=== PATIENT | male | born 1960 | race Caucasian/White ===

== ENCOUNTER 2023-08-16 04:56 | Inpatient (IN) | payer OTHER, MEDICAID, SELFPAY ==
[2023-08-16 05:00] VITALS: BP 155/90; PULSE 91; RESP 16; TEMP 36.4; O2SAT 100; BMI 25.8
--- NOTE | 2023-08-16 05:06 | EKG12_ITS ---
Test Reason : DYSRHYTHMIA Blood Pressure : / mmHG Vent. Rate : 084 BPM Atrial Rate : 084 BPM P-R Int : 186 ms QRS Dur : 102 ms QT Int : 398 ms P-R-T Axes : 058 001 038 degrees QTc Int : 470 ms Normal sinus rhythm Septal infarct , age undetermined Abnormal ECG Confirmed by SONIA MONTERO, KAMRAN ([id number]), editor magazine [employer] ([id number]) on 08/18/2023 10:51:47 AM Referred By: Patrice Watkins Confirmed By:KAMRAN SCOTT MD
--- NOTE | 2023-08-16 05:07 | EDS_ITS ---
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 He did not hit his head or injure anything else including his back, since he was unable to stand due to the pain and suspected fracture, he was brought here by EMS, he has not received any pain medication yet. PFSH PFSH Medical History no medical history no medical history Home Medications NK 08/16/23 [History Last Taken Unknown] Allergy/AdvReac Type Severity Reaction Status Date / Time No Known Allergies Allergy Verified 08/16/23 05:09 Surgical History (Updated 08/16/23 @ 06:[address] Tamir Allan MD) Hx of neck surgery Social History Smoking Status: Current every day smoker tobacco type: cigarettes ROS ROS ED Constitutional Constitutional ED: Denies chills or fever(s) Eyes Eyes: Denies change in vision or diplopia ENT ENT ED: Denies ear pain, epistaxis, facial pain or rhinorrhea Cardiovascular Cardiovascular: Denies chest pain or palpitations Respiratory/Chest Respiratory/Chest: Denies cough or dyspnea Gastrointestinal Gastrointestinal: Denies abdominal pain, diarrhea, melena, nausea or vomiting Genitourinary Genitourinary ED: Denies dysuria or hematuria Musculoskeletal Musculoskeletal: Reports extremity pain; Denies back pain or neck pain Integumentary Denies abscess, Abrasions, laceration or rash Neurologic Neurologic: Denies confusion, headache(s), paresthesias or weakness EXAM Physical Exam Const Vital Signs: 08/16/23 05:00 08/16/23 05:08 08/16/23 05:58 Temperature 97.6 F L 97.6 F L Temperature Source Temporal Temporal Pulse Rate 91 94 81 Respiratory Rate 16 16 18 Blood Pressure 155/90 H 155/90 H 128/81 H Blood Pressure Mean 111 111 96 Pulse Ox 100 100 100 Oxygen Delivery Method Room Air Room Air Positive well nourished and well developed General Appearance ED: well developed and NAD HEENT Reports nasal mucous membranes and turbinates normal atraumatic Face and Sinus: Negative for facial tenderness Eyes PERRL and EOMs intact bilaterally Visual Acuity: other Other Details: no entrapment or pain with extraocular movements Neck full ROM and supple General: Negative for tenderness Chest Wall inspection of chest normal and palpation of chest normal Chest: symmetrical chest wall rise; Negative for crepitus or tenderness Resp normal respiratory effort and clear to auscultation bilaterally Percussion: other equal BS bilat Cardio no murmurs Rate: regular rate Rhythm: regular rhythm GI normal to inspection, nondistended, normoactive bowel sounds, soft to palpation and non-tender Back/Spine normal ROM Cervical Spine: Negative for cervical spine tenderness Thoracic Spine / Upper Back: Negative for thoracic spinal tenderness Lumbar Spine / Lower Back: Negative for lumbar spinal tenderness Extremity normal to inspection Extremity Narrative: Left hip tenderness, shortening, painful logroll. ASIS nontender, pelvis stable to AP compression. Limited range of motion of the knee due to pain in the hip but no bony tenderness or signs of trauma at the near the ankle or elsewhere in the right lower extremity. All compartments soft and nondistended. All 3 other extremities full range of motion without any pain or difficulty. General Extremety ED: Yes tenderness Neuro oriented x3, CN's II-XII intact bilaterally, moves all extremities, no focal motor deficits and no sensory deficits noted Premont Coma Scale: document GCS findings Spontaneous Obeys Commands Oriented 15 Sensorium / Orientation: awake and alert Psych mental status grossly normal and thought process normal Skin no wounds Lesions: no lesions Rashes: no rashes MDM MDM MDM Narrative Medical decision making narrative: Three-view x-ray series of the right hip and pelvis on my interpretation shows a mildly displaced subcapital hip fracture. No other pelvic bone fractures noted. Patient is neurovascular intact distally, clinically better and stable after morphine and prophylactic Zofran, preoperative EKG and chest x-ray obtained and on my interpretation both normal, 1 view chest. Labs unremarkable. Discussed w ith Dr. Marshall who was on-call for [facility], with whom the patient is established, likely to take him to the OR tomorrow morning and requesting hospitalist admission. Lab Data Attestation: I reviewed the patient's lab results. Labs: Laboratory Results - last 24 hr 08/16/23 05:14 WBC 4.4 RBC 3.08 L Hgb 10.1 L Hct 27.5 L MCV 89.3 MCH 32.8 H MCHC 36.7 H RDW Std Deviation 42.5 RDW Coeff of Adiel 13.1 Plt Count 171 MPV 8.8 Immature Gran % (Auto) 0.500 Neut % (Auto) 54.0 Lymph % (Auto) 27.6 [place] % (Auto) 13.6 H Eos % (Auto) 3.4 Baso % (Auto) 0.9 Absolute Neuts (auto) 2.4 Absolute Lymphs (auto) 1.20 Nucleated RBC % 0 Sodium 126 L Potassium 3.4 L Chloride 92 L Carbon Dioxide 25.0 Anion Gap 9 BUN 10 Creatinine 1.13 Estim Creat Clear Calc 69.99 Est GFR (MDRD) Af Amer 85 Est GFR (MDRD) Non-Af 70 BUN/Creatinine Ratio 8.8 L Glucose 143 H Calcium 8.7 Rhythm Strip Rhythm Strip: Sinus Rhythm Rate: 85 Ectopy: None EKG Initial EKG: Attestation: I personally reviewed and interpreted this EKG as follows: Interpretation: Sinus Rhythm and No Acute Injury Pattern Management Discussion w/another healthcare provider: Hospitalist and Control Officer ([facility]) Discharge Plan Dx/Rx/DC Orders Clinical Impression: Fall from slipping on wet surface, Closed fracture of right hip Disposition Disposition: Acute Care Hospital [facility]
[2023-08-16 05:08] VITALS: BP 155/90; PULSE 94; RESP 16; TEMP 36.4; O2SAT 100
[2023-08-16] MEDS: Morphine 4 MG/ML Syringe IV (05:19)
[2023-08-16] MEDS: Ondansetron 4 MG/2 ML Vial IV (05:19)
[2023-08-16 05:24] LABS: Absolute Neutrophil Count 2.4 X10^3/uL (2.0-7.7); Basophil# 0.04 X10^3/uL; Basophil% 0.9 % (0-1); Eosinophil# 0.15 X10^3/uL; Eosinophils% 3.4 % (0-5); Hematocrit 27.5 % (40-54); Hemoglobin 10.1 g/dL (13.0-16.5); Lymphocyte % 27.6 % (19-41); Mean Corp Hgb Conc 36.7 g/dL (32-36); Mean Corpuscular Hgb 32.8 pg (27.0-32.0); Mean Corpuscular Volume 89.3 fL (80-94); Mean Platelet Vol. 8.8 fl (6.2-12.0); Monocyte# 0.59 X10^3/uL; Monocyte% 13.6 % (0-10); NRBC Flagged by Analyzer 0 % (0-5); Neutrophil # 2.35 X10^3/uL (2.7-7.7); Platelet Count 171 K/mm3 (150-450); RBC Distribution Width CV 13.1 % (11.6-14.6); RBC Distribution Width SD 42.5 fl (35.1-43.9); Red Blood Count 3.08 M/mm3 (4.6-6.2); White Blood Count 4.4 K/mm3 (4.4-11.0)
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
--- NOTE | 2023-08-16 05:45 | RAD_ITS ---
EXAM: XR RIGHT HIP WITH PELVIS WHEN PERFORMED, 2 OR 3 VIEWS CLINICAL INDICATION: injury TECHNIQUE: Two or three views of the right hip with pelvis when performed. COMPARISON: No relevant prior studies available. FINDINGS: BONES/JOINTS: 2 views show an acute right femoral neck fracture, with slight cephalad migration of the femoral shaft in relation to the femoral neck. Right femoral head remains normally aligned within the right acetabulum, which is intact. The pubic rami are intact. Proximal left femur is intact. Lower lumbar degenerative disc disease and facet arthritis are noted. The SI joints are partially fused. Multiple punctate opacities are projected over the lower abdomen and pelvis. SOFT TISSUES: Soft tissue swelling about the proximal right femur. RAD/HIP, UNI W/ Pelvis 2-3 Views IMPRESSION: Mildly impacted right femoral neck fracture. Electronically Signed: Darnell Olsen MD at 6:40 EST ,
[2023-08-16 05:48] LABS: Anion Gap 9 (5-15); BUN 10 mg/dL (7-18); BUN/Creat Ratio 8.8 RATIO (10-20); Calcium,Total 8.7 mg/dL (8.5-10.1); Chloride 92 mmol/L (98-107); Creatinine, Serum 1.13 mg/dL (0.70-1.30); EST Glomerular Filtration Rate 70 mL/min (>60); Est Glom Filt Rate - Afr Amer 85 mL/min (>60); Estimated Creatinine Clearance 69.99 ml/min; Glucose 143 mg/dL (74-106); Potassium 3.4 mmol/L (3.5-5.1); Sodium Level 126 mmol/L (136-145)
[2023-08-16 05:58] VITALS: BP 128/81; PULSE 81; RESP 18; O2SAT 100
--- NOTE | 2023-08-16 06:31 | HP.PCM.HOS_ITS ---
HPI - General General Date of Admission: 08/16/23 Date of Service: 08/16/23 Chief Complaint: Right hip pain HPI Narrative QUINCY ESCALONA, is a 63 M who presents with right hip pain. 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 He is unsure about how he actually landed but it was suddenly and he felt something go at that time. Try to get up but he was unable to due to severe pain in his right hip. He was able to get up to standing to feel the rest himself on something but was not able to be able to put any weight on his right leg. EMS was called and patient was brought to the hospital. Patient was found to have a right hip fracture. Dr. Marshall, orthopedics, was contacted and told emergency room physician that the plan would be to take the patient to surgery on the third. With this fall, patient denies hitting his head or any loss of consciousness. He is otherwise a very healthy does not get chest pain or shortness of breath with activities. [facility] Medical History no medical history no medical history Home Medications NK 08/16/23 [History Last Taken Unknown] Allergy/AdvReac Type Severity Reaction Status Date / Time No Known Allergies Allergy Verified 08/16/23 05:09 Surgical History (Updated 08/16/23 @ 06:[address] Tamir Allan MD) Hx of neck surgery Social History (Updated 08/16/23 @ 06:[address] Patrice Watkins, DO) Smoking Status: Current some day smoker alcohol intake: current alcohol intake frequency: a few times a week substance use type: does not use ROS ROS Narrative All review of systems were negative except as mentioned above in the history of present illness and the other review of systems. Vital Signs Vital Signs Vital Signs: 08/16/23 05:00 08/16/23 05:08 08/16/23 05:58 Temperature 36.4 C L 36.4 C L Temperature Source Temporal Temporal Pulse Rate 91 94 81 Respiratory Rate 16 16 18 Blood Pressure 155/90 H 155/90 H 128/81 H Blood Pressure Mean 111 111 96 Pulse Ox 100 100 100 Oxygen Delivery Method Room Air Room Air Weight Weight: 81.6 kg Body Mass Index (BMI) 25.8 Physical Exam Const alert and no apparent distress HEENT normocephalic and head/scalp atraumatic Neck no lymphadenopathy Resp normal respiratory effort, no retractions, no use of accessory muscles and clear to auscultation bilaterally Cardio regular rate, regular rhythm and S1 normal heart sound GI normal to inspection, nondistended, normoactive bowel sounds, soft to palpation, non-tender and non-distended Extremity Extremity Narrative: Short right lower extremity compared to the left. Neuro Sensorium / Orientation: awake and alert Speech: speech normal Psych affect normal Results Lab / Micro Data Attestation: I reviewed the patient's lab results. 08/16/23 05:14 08/16/23 05:14 Labs: Laboratory Results - last 24 hr 08/16/23 05:14: WBC 4.4, RBC 3.08 L, Hgb 10.1 L, Hct 27.5 L, MCV 89.3, MCH 32.8 H, MCHC 36.7 H, RDW Std Deviation 42.5, RDW Coeff of Adiel 13.1, Plt Count 171, MPV 8.8, Immature Gran % (Auto) 0.500, Neut % (Auto) 54.0, Lymph % (Auto) 27.6, [place] % (Auto) 13.6 H, Eos % (Auto) 3.4, Baso % (Auto) 0.9, Absolute Neuts (auto) 2.4, Absolute Lymphs (auto) 1.20, Nucleated RBC % 0, Sodium 126 L, Potassium 3.4 L, Chloride 92 L, Carbon Dioxide 25.0, Anion Gap 9, BUN 10, Creatinine 1.13, Estim Creat Clear Calc 69.99, Est GFR (MDRD) Af Amer 85, Est GFR (MDRD) Non-Af 70, BUN/Creatinine Ratio 8.8 L, Glucose 143 H, Calcium 8.7 Rhythm Strip Rhythm Strip: Sinus Rhythm Rate: 85 Ectopy: None Imagaing Hip x-ray reviewed and shows an impacted right hip fracture. Official read pending. Chest x-ray personally reviewed and shows no infiltrate nor pulmonary vascular congestion. Is unremarkable. Official read pending. Assessment & Plan Assessment/Plan (1) Closed fracture of right hip: QUALIFIERS: Encounter type: initial encounter Qualified Code(s): S72.001A - Fracture of unspecified part of neck of right femur, initial encounter for closed fracture PLAN: Due to fall while patient was at work and stumbled backwards. Patient be on bedrest. Check a 25-hydroxy vitamin D level. Orthopedics will be on consult with tentative plans for the patient to undergo surgery on the third. Patient is medically cleared and optimized to proceed with surgery (NSQIP calculator that patient is overall lower average surgical risk for all outcomes). No additional workup necessary at this time. (2) Hypokalemia: PLAN: Replace. Monitor PLAN: Plan VTE prophylaxis with SCDs for now. Patient required chemical prophylaxis postsurgery.
[2023-08-16 06:56] VITALS: BP 147/94; PULSE 81; RESP 18; TEMP 36.6; O2SAT 100
[2023-08-16 06:58] VITALS: BMI 25.2
[2023-08-16 08:00] VITALS: BP 128/82; PULSE 77; RESP 16; TEMP 36.4; O2SAT 100
[2023-08-16] MEDS: Potassium Chloride Oral Tablet 20 MEQ 40 MEQ PO (08:07)
[2023-08-16] MEDS: Senna/Docusate Sodium 1 Tablet 2 TABLET PO (08:07)
[2023-08-16] MEDS: oxyCODONE 5 MG Tablet 10 MG PO ×4 (08:07→22:14)
[2023-08-16] MEDS: 0.9% Normal Saline (1000mL) 1,000 ML 100 ML IV ×2 (08:07→17:00)
--- NOTE | 2023-08-16 12:37 | PN_ITS ---
Subjective Subjective Patient seen and examined. He was admitted with a complaint of right hip pain after mechanical fall. He is being managed for right hip fracture due to mechanical fall. He says pain is well controlled. Review of systems is otherwise negative. Objective Data Objective Data Vital Signs: Vital Signs Temp Pulse Resp BP Pulse Ox O2 Del Method 97.5 F L 77 16 128/82 H 100 Room Air 08/16/23 08:00 08/16/23 08:00 08/16/23 08:00 08/16/23 08:00 08/16/23 08:00 08/16/23 08:00 Oxygen Delivery Method Room Air Weight: 175 lb 14.4 oz Body Mass Index (BMI) 25.2 Lab / Micro Data 08/16/23 05:14 08/16/23 05:14 Labs: Laboratory Results - last 24 hr 08/16/23 05:14: WBC 4.4, RBC 3.08 L, Hgb 10.1 L, Hct 27.5 L, MCV 89.3, MCH 32.8 H, MCHC 36.7 H, RDW Std Deviation 42.5, RDW Coeff of Adiel 13.1, Plt Count 171, MPV 8.8, Immature Gran % (Auto) 0.500, Neut % (Auto) 54.0, Lymph % (Auto) 27.6, [place] % (Auto) 13.6 H, Eos % (Auto) 3.4, Baso % (Auto) 0.9, Absolute Neuts (auto) 2.4, Absolute Lymphs (auto) 1.20, Nucleated RBC % 0, Sodium 126 L, Potassium 3.4 L, Chloride 92 L, Carbon Dioxide 25.0, Anion Gap 9, BUN 10, Creatinine 1.13, Estim Creat Clear Calc 69.99, Est GFR (MDRD) Af Amer 85, Est GFR (MDRD) Non-Af 70, BUN/Creatinine Ratio 8.8 L, Glucose 143 H, Calcium 8.7 Radiography Diagnostic Testing: Radiology Impression Chest X-Ray 08/16/23 05:45 IMPRESSION: No radiographic evidence of acute cardiopulmonary disease. Electronically Signed: Darnell Olsen MD at 6:38 EST , Hip/Pelvis X-Ray 08/16/23 05:45 IMPRESSION: Mildly impacted right femoral neck fracture. Electronically Signed: Darnell Olsen MD at 6:40 EST , Rhythm Strip Rhythm Strip: Sinus Rhythm Rate: 85 Ectopy: None Physical Exam Const alert, oriented x3, no apparent distress and well nourished HEENT normocephalic, head/scalp atraumatic and moist oral mucous membranes Neck no lymphadenopathy and supple Lymph Lymphatic: no lymphadenopathy noted and no lymphedema noted Resp normal respiratory effort, normal air movement and clear to auscultation bilaterally Cardio regular rate, regular rhythm, S1 normal heart sound, S2 normal heart sound and no murmurs GI normal to inspection, nondistended, normoactive bowel sounds, soft to palpation and non-tender Extremity normal capillary refill and no clubbing, cyanosis or edema Extremity Narrative: RLE shortened, externally rotated Skin General Skin Exam: no breakdown Neuro CN's II-XII intact bilaterally and no sensory deficits noted Motor Exam: general weakness Psych thought process normal and cooperative Appearance: appropriate Assessment & Plan Assessment/Plan (1) Closed fracture of right hip: QUALIFIERS: Encounter type: initial encounter Qualified Code(s): S72.001A - Fracture of unspecified part of neck of right femur, initial encounter for closed fracture PLAN: Plan #RIght subcapital fracture due to mechanical fall * due to mechanical fall * right hip xray showed a right mildly displaced subcapital fracture * Orthopedics on board * PT/OT on board * PO tylenol, PO oxycodone and IV morphine prn for pain * fall precautions * for surgery tomorrow by orthopedics * #Nicotine dependence: counseled to quit. Nicotine patch 21mg daily. DVT prophylaxis; start lovenox Charges/Coding Visit Charges Inpatient E&M: 53675 Subs Hosp L2
[2023-08-16 13:22] LABS: ALB/GLOB Ratio 1.1 RATIO (0.9-2.4); AST(SGOT) 24 U/L (15-37); Alanine Aminotransfer ALT/SGPT 22 U/L (16-61); Albumin, Serum 3.3 g/dL (3.2-5.0); Alkaline Phosphatase 84 U/L (45-117); Anion Gap 8 (5-15); BUN 10 mg/dL (7-18); BUN/Creat Ratio 10.5 RATIO (10-20); Calcium,Total 8.2 mg/dL (8.5-10.1); Chloride 99 mmol/L (98-107); Creatinine, Serum 0.95 mg/dL (0.70-1.30); EST Glomerular Filtration Rate 86 mL/min (>60); Est Glom Filt Rate - Afr Amer 104 mL/min (>60); Estimated Creatinine Clearance 83.25 ml/min; Glucose 113 mg/dL (74-106); Potassium 3.8 mmol/L (3.5-5.1); Protein, Total 6.3 g/dL (6.4-8.2); Sodium Level 130 mmol/L (136-145)
[2023-08-16 14:30] VITALS: BP 108/62; PULSE 70; RESP 16; TEMP 36.8; O2SAT 100
[2023-08-16] MEDS: Acetaminophen 500 MG Tablet 1000 MG PO ×2 (14:30→22:15)
--- NOTE | 2023-08-16 18:10 | CASEMGMT ---
LESA SUMMERS DETECTIVE [employer] SE[employer] CM to room to meet with patient for initial transition planning/care coordination assessment. LESA SUMMERS introduced self and role at [facility].? Pt voices understanding and consents to assessment at this time.? Pt resting in bed in no distress at this time.? Pt is A/O at this time and answers all questions appropriately.?? Care providers, pharmacy, and demographics verified/updated at this time. PCP: Bryan Jackson NP Specialists: none Preferred Pharmacy: [facility] @ discharge Insurance: [employer]. (Pt also has [facility] [place] through [employer]) Prescription Benefit:? yes Living Will/HPOA:?Pt does not currently have LW/HCPOA and would like to complete. VM left on SW Lilly's phone. Pt made aware if SW unable to meet w/him while @ [facility], that AD can be completed w/SW as an OP. LNOK: Pt's firiend, Abril, is only contact listed. Pt states he has one adult son, Clive Caldwell, age 33, who lives in [place], [place]. He states he has not had any contact w/him for about 4-5 years and does not have his phone #. He states that his friend, Abril, would know how to find him, if needed. Pt is single and parents are . He has one living sister that he has not spoke to for years. Living Arrangements: Lives w/a roommate in 2-story home w/3 steps to enter and rails on both sides. His roommate stays upstairs and pt stays on the main floor. Pt states he is independent and was working full-time. Transportation: Pt states drives. He states he will be able to find someone to take him home @ discharge. DME: ? Denies using any DME. He has crutches @ his home and states he can borrow a walker from a friend. He states he made a make-shift/homemade seat in the shower for his roommate that he could use if needed. HHC/SNF: No hx of either. Discussed discharge planning and questions answered. Discussed options of OP therapy vs HHC vs SNF, depending on his needs/ability after surgery. He was made aware therapy would work w/him and recommendations will be made and that either CM or SW will f/u with him on Friday to discuss further discharge planning. He voices appreciation of the info. PLAN: ?TBD. Pt scheduled for surgery tomorrow. Candi CARVALHON RN CM
[2023-08-17] VITALS (11 sets, daily range): BP systolic 115–161; BP diastolic 68–93; PULSE 72–109; RESP 16–18; TEMP 36.3–37.1; O2SAT 92–100; BMI 25.2
[2023-08-17] MEDS: Acetaminophen 500 MG Tablet 1000 MG PO ×3 (05:20→22:18)
[2023-08-17] MEDS: oxyCODONE 5 MG Tablet 10 MG PO ×2 (05:20→22:18)
[2023-08-17 06:40] LABS: Absolute Lymphocyte Count 0.36 X10^3/uL (0.83-4.51); Absolute Neutrophil Count 2.8 X10^3/uL (2.0-7.7); Basophil# 0.01 X10^3/uL; Basophil% 0.3 % (0-1); Eosinophil# 0.04 X10^3/uL; Eosinophils% 1.1 % (0-5); Hematocrit 29.8 % (40-54); Lymphocyte # 0.36 X10^3/ul (0.83-4.51); Lymphocyte % 10.3 % (19-41); Mean Corp Hgb Conc 33.6 g/dL (32-36); Mean Corpuscular Hgb 31.7 pg (27.0-32.0); Mean Corpuscular Volume 94.6 fL (80-94); Mean Platelet Vol. 9.2 fl (6.2-12.0); Monocyte# 0.27 X10^3/uL; Monocyte% 7.7 % (0-10); NRBC Flagged by Analyzer 0 % (0-5); Neutrophil # 2.82 X10^3/uL (2.7-7.7); Neutrophil % 80.3 % (47-70); POSITIVE DIFFERENTIAL YES; Platelet Count 141 K/mm3 (150-450); RBC Distribution Width CV 13.8 % (11.6-14.6); RBC Distribution Width SD 47.3 fl (35.1-43.9); Red Blood Count 3.15 M/mm3 (4.6-6.2); White Blood Count 3.5 K/mm3 (4.4-11.0)
[2023-08-17 06:43] LABS: Differential Indicated SCAN CRITERIA MET
[2023-08-17 07:42] LABS: Anion Gap 5 (5-15); BUN 9 mg/dL (7-18); BUN/Creat Ratio 8.9 RATIO (10-20); Calcium,Total 8.3 mg/dL (8.5-10.1); Chloride 106 mmol/L (98-107); Creatinine, Serum 1.01 mg/dL (0.70-1.30); EST Glomerular Filtration Rate 80 mL/min (>60); Est Glom Filt Rate - Afr Amer 96 mL/min (>60); Glucose 117 mg/dL (74-106); Potassium 4.2 mmol/L (3.5-5.1); Sodium Level 133 mmol/L (136-145)
--- NOTE | 2023-08-17 08:03 | CPS ---
Pt declined IS/PEP, says he doesn't like to read directions and this was all of the sudden This was not the 1st attempt with this patient.
--- NOTE | 2023-08-17 09:53 | PCM.CONS.GEN ---
Assessment & Plan Assessment/Plan (1) Closed fracture of right hip: QUALIFIERS: Encounter type: initial encounter Qualified Code(s): S72.001A - Fracture of unspecified part of neck of right femur, initial encounter for closed fracture PLAN: Plan of care was discussed and reviewed at length with the patient including surgical and nonsurgical treatment options at this time he does wish to proceed with a right total hip arthroplasty secondary to patient's injury and age we feel that total hip replacement is more appropriate plan of care than hemiarthroplasty. Potential risk benefits and complications of this procedure were reviewed in detail including but not limited to infection nerve and blood vessel damage persistent pain numbness tingling paresthesias blood clot pulmonary embolism and the requirement for possible further surgery patient expressed full understanding has no further questions for the doctor does agree to proceed with the above-stated procedure and has signed the appropriate consent form Patient denies a history of DVT or pulmonary embolism. Will plan for aspirin 81 mg twice daily for blood clot prevention x 1 month postoperative I also discussed and reviewed at length with the patient and his other underlying laboratory abnormalities including leukopenia anemia thrombocytopenia hyponatremia hypokalemia and elevated blood glucose. I advised the patient that he will continue to be monitored by hospitalist group while admitted to the hospital but we would recommend a follow-up appointment with Dr. Bryan Gotti patient's primary care provider upon discharge from the hospital for further workup and or treatment. (2) Contusion of right shoulder: PLAN: Discussed and reviewed right shoulder pain/injury with the patient. I explained it sounds like a possible acute on chronic injury which may or may not be work related. He most certainly had aggravation of pre-existing symptoms with the fall. We will plan to obtain x-rays of the right shoulder today to evaluate for fracture. I explained that based on his current clinical exam I do have a low suspicion for fracture. Pending imaging findings we will plan for treatment accordingly. HPI Consult Data Date of Consult: 08/17/23 HPI Narrative Reason for Consultation: Right hip fracture work-related injury HPI Narrative: QUINCY ESCALONA, is a 63 M who presented to [facility] yesterday August 16, 2023. He was involved in a work-related injury. 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 He was standing on the ground. He slipped twisted and landed on his right side. He had significant increased pain in his right hip was unable to stand or bear weight. He was taken to [facility] emergency department by kimi. He states that he did not have any significant hip or groin pain prior to the injury. He did have buttock and low back pain. He also admits to some pre-existing right shoulder pain prior to this injury he was previously under the care of Dr. Ernesto Waller with our office and had cervical neck surgery in April 2023. Dr. Ernesto Waller told him that his shoulder pain was associated with his neck. Since his fall he has had increased right shoulder pain. X-rays in the emergency department of the hip did reveal a femoral neck fracture on the right side. Orthopedics was consulted. Patient ambulated independently without an assistive device prior to the injury. He denies head injury or loss of consciousness. No numbness or tingling into the feet at this time. He does complain of numbness and tingling into bilateral upper extremities that is not new. [facility] Medical History no medical history Home Medications NK 08/16/23 [History Last Taken Unknown] Allergy/AdvReac Type Severity Reaction Status Date / Time No Known Allergies Allergy Verified 08/16/23 05:09 Surgical History (Updated 08/16/23 @ 06:[address] Tamir Allan MD) Hx of neck surgery Social History (Updated 08/16/23 @ 06:[address] Patrice Watkins DO) Smoking Status: Current some day smoker tobacco type: cigarettes alcohol intake: current alcohol intake frequency: a few times a week substance use type: does not use ROS ROS Narrative Review of systems were personally discussed at length with the patient pertinent positives and negatives are documented with in the consultation below. Physical Exam Narrative Patient is alert and oriented x 3. Resting comfortably in the hospital bed in the supine position at rest. No acute distress at rest. The right lower extremity is shortened and externally rotated. Left hip is without pain or tenderness. Gentle rotation of right hip is with severe increased pain recreating patient's chief complaint. No tenderness at bilateral knees or ankles. No calf pain or swelling. Patient is able to actively plantar and dorsiflex bilateral ankles against resistance sensation intact light touch pedal pulses present +2 bilaterally neurovascularly intact. Inspection of right shoulder is without deformity. Right shoulder is with minimal tenderness to palpation at the level of the subacromial space. Patient has reasonable strength testing for active mobility against gravity with increased pain. Right elbow wrist and hand without deformity or tenderness. Full mobility of the elbow wrist and fingers on the right. Radial pulses present +2 bilaterally Lab / Micro Data 08/17/23 05:33 08/17/23 05:33 Labs: Laboratory Results - last 24 hr 08/16/23 05:14: Sodium 130 L, Potassium 3.8, Chloride 99, Carbon Dioxide 23.0, Anion Gap 8, BUN 10, Creatinine 0.95, Estim Creat Clear Calc 83.25, Est GFR (MDRD) Af Amer 104, Est GFR (MDRD) Non-Af 86, BUN/Creatinine Ratio 10.5, Glucose 113 H, Calcium 8.2 L, Total Bilirubin 0.50, AST 24, ALT 22, Alkaline Phosphatase 84, Total Protein 6.3 L, Albumin 3.3, Globulin 3.0, Albumin/Globulin Ratio 1.1 08/17/23 05:14: Blood Type A POSITIVE, Antibody Screen NEGATIVE 08/17/23 05:33: WBC 3.5 L, RBC 3.15 L, Hgb 10.0 L, Hct 29.8 L, MCV 94.6 H D, MCH 31.7, MCHC 33.6 D, RDW Std Deviation 47.3 H, RDW Coeff of Adiel 13.8, Plt Count 141 L, MPV 9.2, Immature Gran % (Auto) 0.300, Neut % (Auto) 80.3 H, Lymph % (Auto) 10.3 L, Cass % (Auto) 7.7, Eos % (Auto) 1.1, Baso % (Auto) 0.3, Absolute Neuts (auto) 2.8, Absolute Lymphs (auto) 0.36 L, Nucleated RBC % 0, Sodium 133 L, Potassium 4.2, Chloride 106, Carbon Dioxide 22.0, Anion Gap 5, BUN 9, Creatinine 1.01, Estim Creat Clear Calc 78.30, Est GFR (MDRD) Af Amer 96, Est GFR (MDRD) Non-Af 80, BUN/Creatinine Ratio 8.9 L, Glucose 117 H, Calcium 8.3 L Rhythm Strip Rhythm Strip: Sinus Rhythm Rate: 85 Ectopy: None Imagaing X-rays of right hip and pelvis were reviewed August 16, 2023 discussed and reviewed with the patient as well as Dr. Obie Marshall consistent with degenerative changes of the lower lumbar spine with acute impacted femoral neck fracture of right hip
[2023-08-17] MEDS: Morphine 2 MG/ML Syringe IV (09:55)
[2023-08-17] MEDS: 0.9% Saline Lock 10 ML Syringe IV ×2 (09:56→18:15)
--- NOTE | 2023-08-17 10:39 | PN_ITS ---
Subjective Subjective Patient seen and examined. He had no active complaints. Review systems otherwise negative. He is due for surgery for hip fracture today. Objective Data Objective Data Vital Signs: Vital Signs Temp Pulse Resp BP Pulse Ox O2 Del Method 97.3 F L 97 16 161/90 H 97 Room Air 08/17/23 09:50 08/17/23 09:50 08/17/23 09:50 08/17/23 09:50 08/17/23 09:50 08/17/23 09:50 Oxygen Delivery Method Room Air Weight: 175 lb 14.4 oz Body Mass Index (BMI) 25.2 Intake & Output: Intake and Output for Last 24 Hours 08/15/23 08/16/23 08/17/23 23:59 23:59 23:59 Intake Total 888.33 / 888.33 1000 / 1000 Output Total 950 / 1175 975 / 975 Balance -61.67 / -286.67 Lab / Micro Data 08/17/23 05:33 08/17/23 05:33 Labs: Laboratory Results - last 24 hr 08/16/23 05:14: Sodium 130 L, Potassium 3.8, Chloride 99, Carbon Dioxide 23.0, Anion Gap 8, BUN 10, Creatinine 0.95, Estim Creat Clear Calc 83.25, Est GFR (MDRD) Af Amer 104, Est GFR (MDRD) Non-Af 86, BUN/Creatinine Ratio 10.5, Glucose 113 H, Calcium 8.2 L, Total Bilirubin 0.50, AST 24, ALT 22, Alkaline Phosphatase 84, Total Protein 6.3 L, Albumin 3.3, Globulin 3.0, Albumin/Globulin Ratio 1.1 08/17/23 05:14: Blood Type A POSITIVE, Antibody Screen NEGATIVE 08/17/23 05:33: WBC 3.5 L, RBC 3.15 L, Hgb 10.0 L, Hct 29.8 L, MCV 94.6 H D, MCH 31.7, MCHC 33.6 D, RDW Std Deviation 47.3 H, RDW Coeff of Adiel 13.8, Plt Count 141 L, MPV 9.2, Immature Gran % (Auto) 0.300, Neut % (Auto) 80.3 H, Lymph % (Auto) 10.3 L, Garrard % (Auto) 7.7, Eos % (Auto) 1.1, Baso % (Auto) 0.3, Absolute Neuts (auto) 2.8, Absolute Lymphs (auto) 0.36 L, Nucleated RBC % 0, Sodium 133 L , Potassium 4.2, Chloride 106, Carbon Dioxide 22.0, Anion Gap 5, BUN 9, Creatinine 1.01, Estim Creat Clear Calc 78.30, Est GFR (MDRD) Af Amer 96, Est GFR (MDRD) Non-Af 80, BUN/Creatinine Ratio 8.9 L, Glucose 117 H, Calcium 8.3 L Rhythm Strip Rhythm Strip: Sinus Rhythm Rate: 85 Ectopy: None Physical Exam Const alert, oriented x3, no apparent distress and well nourished HEENT normocephalic, head/scalp atraumatic and moist oral mucous membranes Eyes PERRL Neck no lymphadenopathy and supple Lymph Lymphatic: no lymphadenopathy noted and no lymphedema noted Resp normal respiratory effort, normal air movement, no retractions, no use of accessory muscles and clear to auscultation bilaterally Cardio regular rate, regular rhythm, S1 normal heart sound, S2 normal heart sound and no murmurs GI normal to inspection, nondistended, normoactive bowel sounds, soft to palpation, non-tender and non-distended Extremity normal capillary refill and no clubbing, cyanosis or edema Extremity Narrative: RLE shortened, externally rotated General Extremity: no tenderness to palpation of joints or extremities Skin General Skin Exam: no breakdown Neuro CN's II-XII intact bilaterally, no focal motor deficits and no sensory deficits noted Sensorium / Orientation: awake and alert Speech: speech normal Motor Exam: general weakness Psych thought process normal, cooperative and affect normal Appearance: appropriate Assessment & Plan Assessment/Plan (1) Closed fracture of right hip: QUALIFIERS: Encounter type: initial encounter Qualified Code(s): S72.001A - Fracture of unspecified part of neck of right femur, initial encounter for closed fracture PLAN: Plan #RIght subcapital fracture due to mechanical fall * due to mechanical fall * right hip xray showed a right mildly displaced subcapital fracture * Orthopedics on board * PT/OT on board * PO tylenol, PO oxycodone and IV morphine prn for pain * fall precautions * for surgery today by orthopedics * #Nicotine dependence: counseled to quit. Nicotine patch 21mg daily. DVT prophylaxis; on lovenox Charges/Coding Visit Charges Inpatient E&M: 94006 Subs Hosp L2
[2023-08-17] MEDS: Cefazolin 2 GM in 0.9% Normal Saline (100mL Bag) 100 ML IV (11:10)
--- NOTE | 2023-08-17 11:25 | FEM_PTH ---
PATIENT: KIM ESCALONA LOC: MS3 U#:[id number] AGE/SX: 63/M ROOM: [facility] – [place] RE08/16/[address]: Dr. Shorty Lea MD : 1960 BED: 1 DIS: 08/21/2023 SPEC #: [id number] RECD: 08/18/23 10:13 STATUS: ROSA RENguyen #: [id number] ALYSIA: 08/17/23 11:[address]: Obie Marshall DEPT: SURGICAL PATHOLOGY RECD BY: Diana Nolan ENTERED: 08/18/23 11:20 SP TYPE: FEM HEAD OTHR DR: DO Dr. Amaris Coy MD Dr. Rodney Miller, MD Richard Dennis Tompkins, LICENSED CLINICIAN-C Tissues: Femoral region, NOS Procedures: Decalcification bone/plaque Surgery Specimen Level V Comments: @ Ordering doctor for DEC edited from to [email or web address] Macias by EMANI at 08/18/23 1506 @ Ordering doctor for SUV edited from to [email or web address] Macias by EMANI at 08/18/23 1506 @ Submitting doctor edited from to [email or web address] Macias by EMANI at 08/18/23 1506 HEADER OPERATION: Total hip replacement PRE-OP DIAGNOSIS: Closed fracture of right hip TISSUE SUBMITTED: Right femoral head and debrided bone and tissue MICROSCOPIC DIAGNOSIS Right femoral head, bone and tissue, total hip replacement/resection: Femoral head and detached pieces of bone with focal area of hemorrhage, clinically closed fracture of right hip. Fragments of fibrocartilaginous tissue and fibroadipose with focal fat necrosis. SJ:theron 08/21/2023 MICROSCOPIC DESCRIPTION Slides are reviewed. GROSS DESCRIPTION Received is one container labeled with the patient's name and designated right femoral head and bone and tissue. The specimen consists of a rojas femoral head measuring 5.0 x 5.0 x 4.0 cm. The femoral neck is also present measuring 1.0 cm in length. The articular surface is smooth. Resection margin is irregular and hemorrhagic. Also present in the specimen container are multiple detached pieces of bone with bone reamings measuring in aggregate 10.0 x 9.0 x 3.0 cm. Also present in the container are two pieces of soft tissue measuring in aggregate 6.0 x 4.0 x 1.5 cm. Travel Pt sections are submitted in three cassettes as follows: 1 - femoral head, 2 - detached pieces of bone including bone reamings, 3??soft tissue. Cassettes 1 & 2 are submitted after decalcification. / ABEL:theron 08/18/2023 TC:5 CPT: 35364, 07964
[2023-08-17 11:35] LABS: Differential Comment SCANNED
[2023-08-17] MEDS: TRANEXAMIC ACID 1,000 MG in 0.9% Normal Saline (100mL Bag) 100 ML 440 MG IV ×2 (11:37→12:57)
[2023-08-17] MEDS: JPS (Morphine 10mg/ml) OPERA.SITE (11:42)
[2023-08-17] MEDS: Lactated Ringers 1,000 ML 15 ML IV (13:00)
--- NOTE | 2023-08-17 13:04 | OP.PCM_ITS ---
Problems Associated Problem List Diagnoses (1) Closed fracture of right hip: Operative Report Date of Procedure: 08/17/23 Preoperative diagnosis: Right hip displaced femoral neck fracture Postoperative diagnosis: Same Operation: [Right] total hip replacement surgery Surgeon: Dr. Obie Marshall MD Solder Making Supervisor: Litzy Terrazas PA-C Anesthesia: General Anesthesiologist Dr. Styles EBL: 300 Fluid in 1400 Special medications: 2 g IV [Ancef], IV Tranexamic acid 1 g IV x 2, joint i njection pain relieving cocktail Indications for surgery : Patient is a [63 ]-year-old with a history of a traumatic fall at work yesterday August 16, 2023. Due to severe pain they are brought to the emergency room and diagnosed with a right hip displaced femoral neck fracture. After explaining risk benefits alternative procedures they decided to proceed with hip replacement surgery. Appropriate informed consent was obtained and signed. Appropriate medical workup was performed preoperatively and patient was deemed safe for surgery by the anesthesia department as well. insurance administrative assistant, physician patient assistant, was utilized throughout the entire procedure. They were vital in helping with patient positioning, holding of retractors, exposing the tissues adequately for safe completion of the procedure including cutting of the bone, helping lawyer real estate appropriate alignment and sizing of the components, implantation of the components, as well as wound closure, bandage application, and safe patient transfer. Without assistant professor surgical technology, physician patient assistant, surgical time would have been significantly increased, and surgical outcome would have been less optimal. Operative findings: Patient had placed a femoral neck fracture of the right hip joint. They underwent a small posterior approach to the hip. We utilized a size number 7 press-fit Accolade 2, 127 degree neck angle, a press fit acetabular component size [56 ] titanium cluster, MDM size 46 F liner. A Biolox ceramic femoral head size [28 mm] with a +4 neck length. 2 6.5 mm appropriate length screws to further stabilize acetabular component. this reproduced their anatomy nicely. Clinically good leg lengths were noted. Good hip stability through range of motion with no undue pistoning. Standard wound closure in layers, followed by leroy, followed by Mepilex dressing Details of procedure: Patient was taken to the operating room and transferred to the operating table. Given appropriate anesthetic agent by that department. Patient was then rolled into a lateral decubitus position with the involved painful hip up in the air. Appropriate timeouts had been performed. Hip had been appropriately marked with my initials. Padded anterior and posterior position was utilized. Axillary roll placed. SAVANNAH hose and SCDs on the nonoperative limb utilized throughout the procedure. Tranexamic acid and IV antibiotics given preoperatively. Operative lower extremity was prepped padded and draped in the usual orthopedic sterile fashion for the procedure. I injected the pain relieving solution in the standard sterile technique of the soft tissues of the hip carefully. Incision was made curving over the tip of the greater trochanter posteriorly. Full thickness skin flaps are raised down o n the fascia nancy. Fascia nancy was opened in length with our incision. Charnley self-retaining hip retractor was carefully placed by the surgeon. Leg was appropriately rotated and held by the patient assistant. Retractor was used to lift the abductors anteriorly to visualize the piriformis tendon and external rotators. Area was infiltrated with pain relieving cocktail. Piriformis tendon and external rotators released off the greater trochanter with the Bovie. Tagging suture was placed in each of these separately. We then split the tissue superior to the piriformis tendon through capsule and onto the pelvis. Femoral neck fracture, displaced was noted. Acetabular labrum was also divided. Femoral neck cut was freshened with a saw using a guide which was then removed, approximately 1 fingerbreadth above the palpable lesser trochanter. Bony fragment removed. With traction and manipulation femoral head was removed from the acetabulum, and measured. Inferior acetabular retractor was placed by the surgeon, held by the patient assistant. Bone hook utilized to pull the proximal femur anteriorly. Labrum removed from about the acetabulum a long knife. Tissue removed from the depth of the acetabulum with the Bovie. Arthritic acetabulum was noted. We began reaming with the appropriate sized reamer based on the measurement of the femoral head. Reaming was done with 45? of abduction, 20? of anteversion, reproducing there anatomy. Reaming was done incrementally up to the appropriate size creating a smooth cylindrical acetabulum and was done down to healthy bone. Trial acetabular component 2 millimeters smaller than the largest reamer was utilized with the outrigger device. Appropriate abduction and anteversion confirmed as well as size and position of cup. We irrigated with bulb syringe saline. Appropriate acetabular opponent was opened and hammered into position with the outrigger device, with 45? of abduction and 20 degrees of anteversion. We could see through the hole in the cup it was adequately down onto the bone in the pelvis. As planned acetabular screws were placed through the screw holes to further stabilize the cup in good position under standard technique. Good stability was noted. MDM metal liner was appropriately positioned hammered into position and fully inspected. Acetabular retractors removed. A proximal femoral elevator utilized. Held by the patient assistant. We used a sharp awl entering down inside the bone of the proximal femur. Utilized the [employer] cutting osteotome in the proximal lateral greater trochanteric region. The fragment removed. Broaching was then done from the smallest broach, upto the appropriate size. Good stability was confirmed. We then trialed the construct with a standard neck length and appropriate sized femoral head on 127? angle neck. We were happy with the construct. Good stability to flexion, rotation by the patient assistant. We now exposed the proximal femur with appropriate retractors in place, held by the patient assistant, actual femoral stem was checked, opened, and then hammered into the proximal femur and seated down to a similar position as the trial had. We now again trialed appropriate neck length upon. It was then opened. Now impacted the appropriate sized femoral head, neck construct onto the clean dried trunion. Was noted to be stable. Hip was inspected, and joint was reduced for a final time. Good hip stability and leg lengths noted. This was then irrigated with saline and cleaned. Next the remainder of the pain relieving solution was injected carefully throughout the soft tissues of the hip joint. Irrigated with sterile Betadine and Irrisept solution again, Closure was carried out with a combination of #1 Vicryl, running #2 strata fix in the fascia nancy, followed by mid layer #1 Vicryl with #1 strata fix running. Next running 0 strata fix, followed by skin leroy, Xeroform, Mepilex dressing. We placed SAVANNAH hose and SCD on the operative leg. Patient awoken from the anesthetic and transferred back to room bed in recovery room in satisfactory condition. Patient will be transferred back to third floor for pain management, PT, IV antibiotics, medication for DVT prevention. Hospitalist service. Hopeful discharge to home in 1 days This note was generated with [employer] dictation software. It may contain incorrect words, spelling, and punctuation that were not noted in checking the note before signing.
--- NOTE | 2023-08-17 14:05 | RAD_ITS ---
EXAM: XR RIGHT SHOULDER COMPLETE, 2 OR MORE VIEWS CLINICAL INDICATION: trauma/ pain -- AP, Scapula Y, Axillary views TECHNIQUE: Two or more views of the right shoulder. COMPARISON: No relevant prior studies available. FINDINGS: BONES/JOINTS: Degenerative findings of the right shoulder. No acute fracture. No subluxation. Normal alignment. No sclerotic or destructive changes observed. SOFT TISSUES: Unremarkable. No soft tissue swelling or gas. No radiopaque foreign body. RAD/Shoulder min 2 Views IMPRESSION: Degenerative findings of the right shoulder. Electronically Signed: Jhonatan Weiss MD at 15:10 EST Reading Location ID and State: [facility] / [place] , Service support ,
--- NOTE | 2023-08-17 14:05 | RAD_ITS ---
STUDY: X-RAY - PELVIS AND RIGHT HIP REASON FOR EXAM: Male, 63 years old. Post Op -- AP both hips on single espinoza/lateral of op hip PACU TECHNIQUE: XR Hip Unilateral with Pelvis when performed; 2 Views COMPARISON: None. FINDINGS: There is no fracture or dislocation. There is anatomic alignment. The soft tissue planes are preserved. Total hip arthroplasty. Skin leroy are seen along the anterior lateral aspect of the hip. There is an air-fluid level seen in the operative site. Joint space is preserved. Subcutaneous air is noted. RAD/Hip Min 2 Views (Portable) IMPRESSION: Successful total hip arthroplasty. Electronically Signed: Jhonatan Weiss MD at 15:08 EST ,
[2023-08-17] MEDS: Cefazolin 1 GM/50 ML BAG IV (18:15)
[2023-08-17] MEDS: Aspirin 81 MG TAB.CHEW PO (22:22)
[2023-08-18] MEDS: Cefazolin 1 GM/50 ML BAG IV (02:40)
[2023-08-18 02:45] VITALS: BP 107/65; PULSE 83; RESP 16; TEMP 36.6; O2SAT 96
[2023-08-18] MEDS: Acetaminophen 500 MG Tablet 1000 MG PO ×3 (05:30→20:58)
[2023-08-18] MEDS: oxyCODONE 5 MG Tablet 10 MG PO ×4 (05:31→20:58)
[2023-08-18 06:41] LABS: Absolute Lymphocyte Count 0.39 X10^3/uL (0.83-4.51); Basophil# 0.02 X10^3/uL; Basophil% 0.5 % (0-1); Eosinophil# 0.07 X10^3/uL; Eosinophils% 1.8 % (0-5); Hematocrit 24.9 % (40-54); Hemoglobin 8.5 g/dL (13.0-16.5); Lymphocyte # 0.39 X10^3/ul (0.83-4.51); Lymphocyte % 10.1 % (19-41); Mean Corp Hgb Conc 34.1 g/dL (32-36); Mean Corpuscular Hgb 32.8 pg (27.0-32.0); Mean Corpuscular Volume 96.1 fL (80-94); Mean Platelet Vol. 9.8 fl (6.2-12.0); Monocyte# 0.36 X10^3/uL; Monocyte% 9.3 % (0-10); NRBC Flagged by Analyzer 0 % (0-5); Neutrophil # 3.01 X10^3/uL (2.7-7.7); Neutrophil % 77.8 % (47-70); POSITIVE DIFFERENTIAL YES; POSITIVE MORPHOLOGY YES; Platelet Count 114 K/mm3 (150-450); RBC Distribution Width CV 13.5 % (11.6-14.6); RBC Distribution Width SD 47.6 fl (35.1-43.9); Red Blood Count 2.59 M/mm3 (4.6-6.2); White Blood Count 3.9 K/mm3 (4.4-11.0)
[2023-08-18 06:51] VITALS: BP 128/76; PULSE 93; RESP 16; TEMP 36.7; O2SAT 97
[2023-08-18 06:55] LABS: Differential Indicated SCAN CRITERIA MET
[2023-08-18 07:18] LABS: Anion Gap 5 (5-15); BUN 10 mg/dL (7-18); BUN/Creat Ratio 9.4 RATIO (10-20); Calcium,Total 7.9 mg/dL (8.5-10.1); Chloride 105 mmol/L (98-107); Creatinine, Serum 1.06 mg/dL (0.70-1.30); EST Glomerular Filtration Rate 75 mL/min (>60); Est Glom Filt Rate - Afr Amer 91 mL/min (>60); Estimated Creatinine Clearance 74.61 ml/min; Glucose 121 mg/dL (74-106); Potassium 3.8 mmol/L (3.5-5.1); Sodium Level 132 mmol/L (136-145)
[2023-08-18 08:45] LABS: Vitamin D,25 Hydroxy 15.4 ng/mL
[2023-08-18] MEDS: Senna/Docusate Sodium 1 Tablet 2 TABLET PO (09:22)
[2023-08-18] MEDS: Aspirin 81 MG TAB.CHEW PO ×2 (09:22→18:14)
--- NOTE | 2023-08-18 10:33 | PCM.PN.ORT ---
Subjective Subjective Insert postop subjective patient is s/p right total hip arthroplasty with Dr. Marshall 08/17/2023 . Patient resting comfortably in bed. Rates pain 3/ 10 at rest. With movement 7/10. States taking Tylenol and oxycodone as needed and ice help to relieve pain. Patient has been up with therapy. Walking with the assit of a walker. Afebrile, no chest pain, shortness of breath, negative calf pain/ erythema, and no other signs of DVT. Patient does complain of right shoulder pain however this has been going on since before the fall. Shoulder x-rays do show degenerative changes osteoarthritis no acute fractures. He does have a history of a displaced clavicle fracture on the right. Today he has no increased pain or ecchymosis over the clavicle. There is a protrusion but this is his baseline. Objective Data Objective Data Vital Signs: Vital Signs Temp Pulse Resp BP Pulse Ox O2 Del Method 98.0 F 93 16 128/76 H 97 Room Air 08/18/23 06:51 08/18/23 06:51 08/18/23 06:51 08/18/23 06:51 08/18/23 06:51 08/18/23 06:51 Oxygen Delivery Method Room Air Weight: 79.787 kg Body Mass Index (BMI) 25.2 Intake & Output: Intake and Output for Last 24 Hours 08/16/23 08/17/23 08/18/23 23:59 23:59 23:59 Intake Total 888.33 / 888.33 1378.25 / 1678.25 950 / 950 Output Total 950 / 1175 975 / 975 500 / 500 Balance -61.67 / -286.67 403.25 / 703.25 450 / 450 Lab / Micro Data 08/18/23 05:25 08/18/23 05:25 Labs: Laboratory Results - last 24 hr 08/16/23 05:14: Vitamin D 25-Hydroxy 15.4 08/17/23 05:33: Differential Comment SCANNED, Diff Path Review January08/18/23 05:25: WBC 3.9 L, RBC 2.59 L, Hgb 8.5 L, Hct 24.9 L, MCV 96.1 H, MCH 32.8 H, MCHC 34.1, RDW Std Deviation 47.6 H, RDW Coeff of Adiel 13.5, Plt Count 114 L, MPV 9.8, Immature Gran % (Auto) 0.500, Neut % (Auto) 77.8 H, Lymph % (Auto) 10.1 L, [place] % (Auto) 9.3, Eos % (Auto) 1.8, Baso % (Auto) 0.5, Absolute Neuts (auto) 3.0, Absolute Lymphs (auto) 0.39 L, Nucleated RBC % 0, Differential Comment COMMENT, Diff Path Review January, Sodium 132 L, Potassium 3.8, Chloride 105, Carbon Dioxide 22.0, Anion Gap 5, BUN 10, Creatinine 1.06, Estim Creat Clear Calc 74.61, Est GFR (MDRD) Af Amer 91, Est GFR (MDRD) Non-Af 75, BUN/Creatinine Ratio 9.4 L, Glucose 121 H, Calcium 7.9 L Radiography Diagnostic Testing: Radiology Impression Hip X-Ray 08/17/23 14:05 IMPRESSION: Successful total hip arthroplasty. Electronically Signed: Jhonatan Weiss MD at 15:08 EST Reading Location ID and State: [facility] / [place] , Service support , Shoulder X-Ray 08/17/23 14:05 IMPRESSION: Degenerative findings of the right shoulder. Electronically Signed: Jhonatan Weiss MD at 15:10 EST , Rhythm Strip Rhythm Strip: Sinus Rhythm Rate: 85 Ectopy: None Physical Exam Narrative Patient resting comfortably in bed No signs of acute distress Satting well on room air Limb is warm to touch, Sensation intact throughout entire lower extremity, including saphenous, sural, superficial and deep peroneal, and tibial distribution. DP/PT pulses bounding. Dorsiflexion plantarflexion strength 5/5 Dressing clear, dry, intact Calf nontender to palpation, no erythema, no edema. Negative Homans Patient has limited range of motion of right shoulder there is some crepitus. Forward flexion to about 120 Clavicle is has a deformity over mid clavicle which she states is baseline. No pain to palpation. No ecchymosis or edema. Assessment & Plan Assessment/Plan (1) Closed fracture of right hip: QUALIFIERS: Encounter type: initial encounter Qualified Code(s): S72.001A - Fracture of unspecified part of neck of right femur, initial encounter for closed fracture (2) S/P total hip arthroplasty: PLAN: Plan 1. Will continue PT today. weightbearing as tolerated 2. Patient cleared from an orthopedic standpoint for discharge when ready. Discharge per primary 3. Patient will follow up for post op appointment in 2 weeks in the office. This will need to be arranged. 4. Recommend scheduling outpatient physical therapy. Either later this week or early next. 5. no leukocytosis 6. H/H 8.5 from 10.0/24.9 from 29.8: post operative anemia likely secondary to acute blood loss intraoperatively. Patient is asymptomatic at this time. No intraoperative complications. will continue to monitor. Intervention and/or transfusion per primary. Overall patient should follow-up with primary care after discharge for CBC within the next week. Sooner if becoming symptomatic.. 7. DVT prophylaxis : Aspirin 81 mg twice daily x4 weeks 8. Pain control: patient instructed to take tylenol 500mg 2 tablets TID. and oxycodone 1-2 tablets every 4-6 hours only as needed for pain control. 9. ok to remove post op dressing. post op day 5 10. Shoulder x-rays reviewed with Dr. Marshall negative for acute fracture. 11. Orthopedics will sign off.
[2023-08-18 10:51] VITALS: BP 114/68; PULSE 95; RESP 18; TEMP 36.6; O2SAT 94
--- NOTE | 2023-08-18 11:49 | PN_ITS ---
Subjective Subjective Patient seen and examined. He compaline of the pain in the right hip being 9/10. He had no other complaints. Today is POD 1 for right hip replacement. He has remained hemodynamically stable. Objective Data Objective Data Vital Signs: Vital Signs Temp Pulse Resp BP Pulse Ox O2 Del Method 98.0 F 93 16 128/76 H 97 Room Air 08/18/23 06:51 08/18/23 06:51 08/18/23 06:51 08/18/23 06:51 08/18/23 06:51 08/18/23 06:51 Oxygen Delivery Method Room Air Weight: 175 lb 14.4 oz Body Mass Index (BMI) 25.2 Intake & Output: Intake and Output for Last 24 Hours 08/16/23 08/17/23 08/18/23 23:59 23:59 23:59 Intake Total 888.33 / 888.33 1378.25 / 1678.25 950 / 950 Output Total 950 / 1175 975 / 975 500 / 500 Balance -61.67 / -286.67 403.25 / 703.25 450 / 450 Lab / Micro Data 08/18/23 05:25 08/18/23 05:25 Labs: Laboratory Results - last 24 hr 08/16/23 05:14: Vitamin D 25-Hydroxy 15.4 08/18/23 05:25: WBC 3.9 L, RBC 2.59 L, Hgb 8.5 L, Hct 24.9 L, MCV 96.1 H, MCH 32.8 H, MCHC 34.1, RDW Std Deviation 47.6 H, RDW Coeff of Adiel 13.5, Plt Count 114 L, MPV 9.8, Immature Gran % (Auto) 0.500, Neut % (Auto) 77.8 H, Lymph % (Auto) 10.1 L, [place] % (Auto) 9.3, Eos % (Auto) 1.8, Baso % (Auto) 0.5, Absolute Neuts (auto) 3.0, Absolute Lymphs (auto) 0.39 L, Nucleated RBC % 0, Differential Comment COMMENT, Diff Path Review January foll, Sodium 132 L, Potassium 3.8, Chlor jameel 105, Carbon Dioxide 22.0, Anion Gap 5, BUN 10, Creatinine 1.06, Estim Creat Clear Calc 74.61, Est GFR (MDRD) Af Amer 91, Est GFR (MDRD) Non-Af 75, BUN/Creatinine Ratio 9.4 L, Glucose 121 H, Calcium 7.9 L Radiography Diagnostic Testing: Radiology Impression Hip X-Ray 08/17/23 14:05 IMPRESSION: Successful total hip arthroplasty. Electronically Signed: Jhonatan Weiss MD at 15:08 EST , Shoulder X-Ray 08/17/23 14:05 IMPRESSION: Degenerative findings of the right shoulder. Electronically Signed: Jhonatan Weiss MD at 15:10 EST , Rhythm Strip Rhythm Strip: Sinus Rhythm Rate: 85 Ectopy: None Physical Exam Const alert, oriented x3, no apparent distress and well nourished HEENT normocephalic, head/scalp atraumatic and moist oral mucous membranes Eyes PERRL Neck no lymphadenopathy and supple Lymph Lymphatic: no lymphadenopathy noted and no lymphedema noted Resp normal respiratory effort, normal air movement, no retractions, no use of accessory muscles and clear to auscultation bilaterally Cardio regular rate, regular rhythm, S1 normal heart sound, S2 normal heart sound and no murmurs GI normal to inspection, nondistended, normoactive bowel sounds, soft to palpation, non-tender and non-distended Extremity normal capillary refill and no clubbing, cyanosis or edema Extremity Narrative: intact dressing over right hip General Extremity: no tenderness to palpation of joints or extremities Skin General Skin Exam: no breakdown Neuro CN's II-XII intact bilaterally, no focal motor deficits and no sensory deficits noted Sensorium / Orientation: awake and alert Speech: speech normal Motor Exam: general weakness Psych thought process normal, cooperative and affect normal Appearance: appropriate Assessment & Plan Assessment/Plan (1) Closed fracture of right hip: QUALIFIERS: Encounter type: initial encounter Qualified Code(s): S72.001A - Fracture of unspecified part of neck of right femur, initial encounter for closed fracture PLAN: Plan #RIght subcapital fracture due to mechanical fall * due to mechanical fall * right hip xray showed a right mildly displaced subcapital fracture * today is POD 1 for right hip fracture. * Orthopedics on board * PT/OT on board * PO tylenol, PO oxycodone and IV morphine prn for pain * fall precautions * * #Nicotine dependence: counseled to quit. Nicotine patch 21mg daily. DVT prophylaxis; on lovenox Disposition; depends on how he does with PT/OT. Charges/Coding Visit Charges Inpatient E&M: 48606 Subs Hosp L2
--- NOTE | 2023-08-18 12:03 | CASEMGMT ---
Social Work SW met w/pt in room in regard to discharge plan. Pt expressed frustration as he does not know when he is going to be discharged, and is also having some pain. SW offered support. We discussed discharge plan. Pt initially did want to go home, but states would not be able to go home if it was today. SW discussed going to a SNF for rehab, pt states, somewhere like [facility]? His significant other was there recently and he would be willing to go there if needed. He is agreeable to SW sending referral, but is not totally committed to this. SW did provide to pt a list of fdc facilities in pt's insurance network, in preferred geographic area, complete w/quality and resource use data. SW explained will make referral and check back w/pt later today vs tomorrow. If he does want to go we will need to start the precert process w/Worker's Comp. Pt states understanding. SW let Melita d/c financial planner know to start the referral. SW will follow up. DANIEL Armando
[2023-08-18] MEDS: 0.9% Saline Lock 10 ML Syringe IV ×2 (12:04→18:15)
--- NOTE | 2023-08-18 12:33 | CASEMGMT ---
Discharge Planning Referral sent to [facility] via [facility]. Melita Harrington, Discharge Planning Asst.
--- NOTE | 2023-08-18 13:01 | CASEMGMT ---
Discharge Planning [facility] declined patient d/t being workers comp. SW updated. Melita Harrington, Discharge Planning Asst.
[2023-08-18 13:39] LABS: Pathologist Review Reviewed
[2023-08-18 16:00] VITALS: BP 118/72; PULSE 92; RESP 18; TEMP 36.6; O2SAT 98
--- NOTE | 2023-08-18 16:00 | CASEMGMT ---
Social Work Received notice from Discharge cosmetic sales assistant that patient is declined by [facility] due to being worker's comp. Met with patient to update and check in on planning. A female, identified at Suellen Pike (a nurse at patient's employer) in room. Patient expressed to go ahead and speak freely with Suellen present in the room. Patient reports to be in agreement with SNF, short term. Updated patient that [facility] is unable to accept patient due to Workers Comp. Inquired what other choice patient may have. Patient chose [facility]. Suellen spoke up and indicated may be good to cross reference choices provided with patient to patient's insurance of [employer], just in case the workers comp claim does not go through. Patient shares that had surgery in April and just came back from a medical leave. Suellen provided numbers, just in case anyone from the hospital needs to reach Suellen. Work: Message to Discharge cosmetic sales assistant Melita about making another SNF list to cross reference with current list patient has, as well as patient's second choice of [facility]. Plan: Working on SNF for short term rehab. Social Work following. -RENETTA Salter
[2023-08-18 21:02] VITALS: BP 122/76; PULSE 86; RESP 16; TEMP 36.9; O2SAT 98
[2023-08-19] MEDS: Acetaminophen 500 MG Tablet 1000 MG PO ×3 (06:00→20:36)
[2023-08-19] MEDS: oxyCODONE 5 MG Tablet 10 MG PO ×4 (06:00→20:36)
[2023-08-19 06:09] VITALS: BP 140/95; PULSE 86; RESP 16; TEMP 36.9; O2SAT 98
[2023-08-19 07:30] LABS: Absolute Lymphocyte Count 0.52 X10^3/uL (0.83-4.51); Absolute Neutrophil Count 3.7 X10^3/uL (2.0-7.7); Basophil# 0.01 X10^3/uL; Basophil% 0.2 % (0-1); Eosinophil# 0.11 X10^3/uL; Eosinophils% 2.3 % (0-5); Hematocrit 24.2 % (40-54); Hemoglobin 8.2 g/dL (13.0-16.5); Lymphocyte # 0.52 X10^3/ul (0.83-4.51); Lymphocyte % 10.8 % (19-41); Mean Corp Hgb Conc 33.9 g/dL (32-36); Mean Corpuscular Hgb 32.2 pg (27.0-32.0); Mean Corpuscular Volume 94.9 fL (80-94); Mean Platelet Vol. 9.5 fl (6.2-12.0); Monocyte# 0.45 X10^3/uL; Monocyte% 9.4 % (0-10); NRBC Flagged by Analyzer 0 % (0-5); Neutrophil # 3.68 X10^3/uL (2.7-7.7); Neutrophil % 76.7 % (47-70); POSITIVE DIFFERENTIAL YES; Platelet Count 112 K/mm3 (150-450); RBC Distribution Width CV 13.5 % (11.6-14.6); RBC Distribution Width SD 46.9 fl (35.1-43.9); Red Blood Count 2.55 M/mm3 (4.6-6.2); White Blood Count 4.8 K/mm3 (4.4-11.0)
[2023-08-19 07:33] LABS: Differential Indicated SCAN CRITERIA MET
[2023-08-19 08:00] VITALS: BP 136/92; PULSE 101; RESP 15; TEMP 36.8; O2SAT 100
[2023-08-19 08:07] LABS: Platelet Estimate SLT DEC (ADEQ)
[2023-08-19] MEDS: Aspirin 81 MG TAB.CHEW PO ×2 (08:51→16:46)
[2023-08-19] MEDS: Senna/Docusate Sodium 1 Tablet 2 TABLET PO ×2 (08:51→20:37)
--- NOTE | 2023-08-19 10:48 | CASEMGMT ---
Discharge Planning A list of SNF providers including quality and resource use data and consistent with the patient's preferred geographic region, medical needs, and insurance network (MMO) was created in CarePort Guide.? This list was provided to the SW. Melita Harrington Discharge Planning Asst.
--- NOTE | 2023-08-19 11:05 | PCM.PROGNOTE ---
Subjective Subjective Patient seen and examined. He had no complaints. Pain is well controlled. Review of systems is otherwise negative. Objective Data Objective Data Vital Signs: Vital Signs Temp Pulse Resp BP Pulse Ox O2 Del Method 98.2 F 101 H 15 136/92 H 100 Room Air 08/19/23 08:00 08/19/23 08:00 08/19/23 08:00 08/19/23 08:00 08/19/23 08:00 08/19/23 08:00 Oxygen Delivery Method Room Air Weight: 175 lb 14.4 oz Body Mass Index (BMI) 25.2 Intake & Output: Intake and Output for Last 24 Hours 08/17/23 08/18/23 08/19/23 23:59 23:59 23:59 Intake Total 1378.25 / 1678.25 2009 400 / 400 Output Total 975 / 975 1150 / 2350 1900 / 1900 Balance 403.25 / 703.25 860 / -340 -1500 / -1500 Lab / Micro Data 08/19/23 06:58 08/18/23 05:25 Labs: Laboratory Results - last 24 hr 08/17/23 05:33: Diff Path Review Reviewed 08/19/23 06:58: WBC 4.8, RBC 2.55 L, Hgb 8.2 L, Hct 24.2 L, MCV 94.9 H, MCH 32.2 H, MCHC 33.9, RDW Std Deviation 46.9 H, RDW Coeff of Adiel 13.5, Plt Count 112 L, MPV 9.5, Immature Gran % (Auto) 0.600, Neut % (Auto) 76.7 H, Lymph % (Auto) 10.8 L, [place] % (Auto) 9.4, Eos % (Auto) 2.3, Baso % (Auto) 0.2, Absolute Neuts (auto) 3.7, Absolute Lymphs (auto) 0.52 L, Nucleated RBC % 0, Platelet Estimate SLT DEC Rhythm Strip Rhythm Strip: Sinus Rhythm Rate: 85 Ectopy: None Physical Exam Const alert, oriented x3, no apparent distress and well nourished General Appearance: cooperative HEENT normocephalic, head/scalp atraumatic and moist oral mucous membranes Eyes PERRL and EOMs intact bilaterally Neck no lymphadenopathy and supple Lymph Lymphatic: no lymphadenopathy noted and no lymphedema noted Resp normal respiratory effort, normal air movement, no retractions, no use of accessory muscles and clear to auscultation bilaterally Cardio regular rate, regular rhythm, S1 normal heart sound, S2 normal heart sound and no murmurs GI normal to inspection, nondistended, normoactive bowel sounds, soft to palpation, non-tender and non-distended Extremity normal capillary refill and no clubbing, cyanosis or edema Extremity Narrative: intact dressing over right hip General Extremity: no tenderness to palpation of joints or extremities Skin General Skin Exam: no breakdown Neuro CN's II-XII intact bilaterally, no focal motor deficits and no sensory deficits noted Sensorium / Orientation: awake and alert Speech: speech normal Motor Exam: strength 5/5 throughout and general weakness Psych thought process normal, cooperative and affect normal Appearance: appropriate Assessment & Plan Assessment/Plan (1) Closed fracture of right hip: QUALIFIERS: Encounter type: initial encounter Qualified Code(s): S72.001A - Fracture of unspecified part of neck of right femur, initial encounter for closed fracture PLAN: Plan #RIght subcapital fracture due to mechanical fall due to mechanical fall right hip xray showed a right mildly displaced subcapital fracture today is POD 2 for right hip arthroplasty Orthopedics on board PT/OT on board PO tylenol, PO oxycodone and IV morphine prn for pain fall precautions #Nicotine dependence: counseled to quit. Nicotine patch 21mg daily. DVT prophylaxis;on aspirin 81mg bid per orthopedic surgery Disposition; awaiting placement Charges/Coding Visit Charges Inpatient E&M: 31491 [facility] Hosp L2
[2023-08-19 13:58] LABS: Pathologist Review Reviewed
[2023-08-19 14:00] VITALS: BP 128/83; PULSE 84; RESP 15; TEMP 36.8; O2SAT 100
--- NOTE | 2023-08-19 15:15 | CASEMGMT ---
Discharge Planning Referral sent to [facility] Melita Harrington, Discharge Planning Asst.
--- NOTE | 2023-08-19 17:45 | CASEMGMT ---
Social Work Received a call and voice message from Iqra ayers RN, CM at [facility], patient's [facility] for Worker's Comp claims. Iqra called to indicate will need C9 and supporting documentation sent via fax for any discharge planning needs. , ext [phone] Received updated copy of SNF list for MMO in-network facilities, generated from [employer]. [facility], patient's second choice is on both the worker's comp list and the MMO list. Referral sent to the [facility] today, though no response back yet by the end of the business day. Met with patient to discuss discharge planning. Provided new SNF list, to compare with original list given. Patient reports to feel great and if tomorrow is anything like today, the patient thinks could discharge home, or at least to a friend's home. Patient reports would go to [id number]'s home, Abril Suarez, who is also already caring for the patient's long time partner Divya after a stroke. Patient reports would be able to have a one floor set up, and would be open to having home health care. Patient reports to have a walker. Patient reports Abril has been an option the entire time, but did not want to ask for help and be a burden to others. Patient also reports yesterday did not feel well, and wanted to be more independent to go to Abril's home. Social work agreed that annette WALLACE rail director CM would be back in the morning on 08.20.23 to discuss patient's intentions: short term SNF or home with HHC, as either will need a C9 filled out and submitted for approval. Patient expressed understanding and agreement with this plan. PLAN: Short term SNF versus Home with HHC. Patient to have final decision made on 08.20.23. There is a pending referral to [facility] SNF already. -RENETTA Salter
[2023-08-19 20:31] VITALS: BP 153/96; PULSE 95; RESP 18; TEMP 36.9; O2SAT 99
[2023-08-19] MEDS: 0.9% Saline Lock 10 ML Syringe IV (20:35)
[2023-08-20 04:42] VITALS: BP 149/89; PULSE 90; RESP 18; TEMP 37.1; O2SAT 100
[2023-08-20] MEDS: oxyCODONE 5 MG Tablet 10 MG PO ×4 (04:46→21:31)
[2023-08-20] MEDS: Acetaminophen 500 MG Tablet 1000 MG PO ×3 (04:47→21:21)
[2023-08-20] MEDS: Senna/Docusate Sodium 1 Tablet 2 TABLET PO (08:01)
[2023-08-20] MEDS: Aspirin 81 MG TAB.CHEW PO ×2 (08:01→16:54)
--- NOTE | 2023-08-20 09:31 | CASEMGMT ---
Social Work SW met with pt and introduced self and role of SW. Pt reporting he has had time to consider discharge options and has had therapy this morning and feels he will be able to return to his home where he lives alone. Pt states his friend Abril will provide transportation home and can assist with getting groceries and errands. Pt feels he is safe to return home alone and can manage personal care and IADLS. Pt is agreeable to home health services and will need a FWW. Pt would like to use [facility] for any new medications. RNCM updated. DC assistant family teacher to cancel referral to [facility]. MIKE Cast
--- NOTE | 2023-08-20 09:37 | CASEMGMT ---
TC to Iqra Mejía at [facility], left a vm requesting pt claim number and primary dx for workers comp. Awaiting returned call. Plan is for HHC and pt needs a FWW.
[2023-08-20 10:00] VITALS: BP 155/98; PULSE 95; RESP 15; TEMP 36.3; O2SAT 97
--- NOTE | 2023-08-20 10:14 | CASEMGMT ---
Discharge Planning A list of?HH providers including quality and resource use data and consistent with the patient's preferred geographic region, medical needs, and insurance network (MMO) was created in CarePort Guide.? This list was provided to the RN CM. Melita Harrington, Discharge Planning Asst.
--- NOTE | 2023-08-20 10:23 | CASEMGMT ---
Addendum entered by Yaima Alvarenga 08/20/23 15:08: FWW rx, H&P and C-9 [facility]. Addendum entered by Yaima Alvarenga 08/20/23 14:42: Received approval for C-9 submitted. Filed in pt chart. Faxed to [facility]. Updated hospitalist. Addendum entered by Yaima Alvarenga 08/20/23 14:18: LESA SUMMERS into pt room, he is aware of acceptance from [facility]. He states he will buy walker. Made him aware again after multiple times that this has been requested by Workers Comp to be paid for. Pt verbalizes understanding. Addendum entered by Yaima Alvarenga 08/20/23 13:27: Spoke with Iqra Mejía who is aware C-9 has been faxed. Received tc from Kevin at [facility] pt is accepted for care. Addendum entered by Yaima Alvarenga 08/20/23 12:56: Faxed Workers Comp Iqra Mejía all therapy notes, H&P, Ortho Consult, C-9 request for HHC and FWW at this time to . Addendum entered by Yaima Alvarenga 08/20/23 11:05: [facility] has not had pt in past and declined referral. LESA SUMMERS into pt room, pt states he went outpt there, that they did not come to the home. He is aware that they declined pt. Pt now would like [facility]. TC to Kevin, referral made, will await acceptance. Original Note: LESA SUMMERS into pt room, provided HHC list created by dc virtual assistant for advertisers. Pt states that he just finished with [facility] on Aug 01 and he would like this agency again. Pt agreeable to a FWW and provided a local in network list of DME providers, pt chose [facility]. Received tc back from Iqra Mejía at [facility], pt claim number is [id number]. She is aware that a request of HHC and a FWW will be submitted today. DC virtual assistant for advertisers to send referral to [facility].
--- NOTE | 2023-08-20 10:24 | CASEMGMT ---
Discharge Planning VM left for [facility] to disregard referral. Melita Harrington, Discharge Planning Asst.
[2023-08-20 10:50] LABS: Absolute Lymphocyte Count 0.74 X10^3/uL (0.83-4.51); Absolute Neutrophil Count 4.5 X10^3/uL (2.0-7.7); Basophil# 0.04 X10^3/uL; Basophil% 0.7 % (0-1); Eosinophil# 0.25 X10^3/uL; Eosinophils% 4.1 % (0-5); Hematocrit 25.4 % (40-54); Hemoglobin 8.5 g/dL (13.0-16.5); Lymphocyte # 0.74 X10^3/ul (0.83-4.51); Lymphocyte % 12.1 % (19-41); Mean Corp Hgb Conc 33.5 g/dL (32-36); Mean Corpuscular Hgb 32.1 pg (27.0-32.0); Mean Corpuscular Volume 95.8 fL (80-94); Mean Platelet Vol. 9.6 fl (6.2-12.0); Monocyte% 9.8 % (0-10); NRBC Flagged by Analyzer 0 % (0-5); Neutrophil # 4.47 X10^3/uL (2.7-7.7); Neutrophil % 72.6 % (47-70); Platelet Count 164 K/mm3 (150-450); RBC Distribution Width CV 13.5 % (11.6-14.6); RBC Distribution Width SD 47.1 fl (35.1-43.9); Red Blood Count 2.65 M/mm3 (4.6-6.2); White Blood Count 6.1 K/mm3 (4.4-11.0)
--- NOTE | 2023-08-20 10:58 | CASEMGMT ---
Discharge Planning Referral sent to [facility] and was declined. RN CM updated. Melita Harrington, Discharge Planning Asst.
[2023-08-20 11:52] LABS: Anion Gap 6 (5-15); BUN 10 mg/dL (7-18); BUN/Creat Ratio 10.2 RATIO (10-20); Calcium,Total 8.7 mg/dL (8.5-10.1); Chloride 104 mmol/L (98-107); Creatinine, Serum 0.98 mg/dL (0.70-1.30); EST Glomerular Filtration Rate 82 mL/min (>60); Est Glom Filt Rate - Afr Amer 99 mL/min (>60); Glucose 153 mg/dL (74-106); Potassium 3.4 mmol/L (3.5-5.1); Sodium Level 132 mmol/L (136-145)
--- NOTE | 2023-08-20 12:54 | PN.HOSP_ITS ---
Reason for Visit Reason for Visit: Diagnoses Hypokalemia (08/16/23) Contusion of right shoulder, initial encounter (08/16/23) Fracture of unspecified part of neck of right femur, initial encounter for closed fracture (08/16/23) Presence of unspecified artificial hip joint (08/16/23) Objective Data Objective Data Vital Signs: Vital Signs Temp Pulse Resp BP Pulse Ox O2 Del Method 97.4 F L 95 15 155/98 H 97 Room Air 08/20/23 10:00 08/20/23 10:00 08/20/23 10:00 08/20/23 10:00 08/20/23 10:00 08/20/23 10:00 Oxygen Delivery Method Room Air Weight: 175 lb 14.4 oz Body Mass Index (BMI) 25.2 Intake & Output: Intake and Output for Last 24 Hours 08/18/23 08/19/23 08/20/23 23:59 23:59 23:59 Intake Total 2009 800 / 800 300 / 300 Output Total 1150 / 2350 3000 / 3000 Balance 860 / -340 -2200 / -2200 300 / 300 Lab / Micro Data 08/20/23 10:38 08/20/23 10:38 Labs: Laboratory Results - last 24 hr 08/18/23 05:25: Diff Path Review Reviewed 08/20/23 10:38: WBC 6.1, RBC 2.65 L, Hgb 8.5 L, Hct 25.4 L, MCV 95.8 H, MCH 32.1 H, MCHC 33.5, RDW Std Deviation 47.1 H, RDW Coeff of Adiel 13.5, Plt Count 164, MPV 9.6, Immature Gran % (Auto) 0.700, Neut % (Auto) 72.6 H, Lymph % (Auto) 12.1 L, [place] % (Auto) 9.8, Eos % (Auto) 4.1, Baso % (Auto) 0.7, Absolute Neuts (auto) 4.5, Absolute Lymphs (auto) 0.74 L, Nucleated RBC % 0, Sodium 132 L, Potassium 3.4 L, Chloride 104, Carbon Dioxide 22.0, Anion Gap 6, BUN 10, Creatinine 0.98, Estim Creat Clear Calc 80.70, Est GFR (MDRD) Af Amer 99, Est GFR (MDRD) Non-Af 82, BUN/Creatinine Ratio 10.2, Glucose 153 H, Calcium 8.7 Rhythm Strip Rhythm Strip: Sinus Rhythm Rate: 85 Ectopy: None Assessment & Plan Assessment/Plan (1) Closed fracture of right hip: QUALIFIERS: Encounter type: initial encounter Qualified Code(s): S72.001A - Fracture of unspecified part of neck of right femur, initial encounter for closed fracture PLAN: Plan #RIght subcapital fracture due to mechanical fall * due to mechanical fall * right hip xray showed a right mildly displaced subcapital fracture * today is POD 2 for right hip arthroplasty * Orthopedics on board * PT/OT on board * PO tylenol, PO oxycodone and IV morphine prn for pain * fall precautions * * #Nicotine dependence: counseled to quit. Nicotine patch 21mg daily. DVT prophylaxis;on aspirin 81mg bid per orthopedic surgery Disposition; awaiting placement
[2023-08-20 14:00] VITALS: BP 147/94; PULSE 90; RESP 15; TEMP 36.7; O2SAT 100
[2023-08-20] MEDS: SimETHICONE 80 MG Chewable Tablet PO (14:01)
--- NOTE | 2023-08-20 17:15 | PN.HOSP_ITS ---
Reason for Visit Reason for Visit: Diagnoses Hypokalemia (08/16/23) Contusion of right shoulder, initial encounter (08/16/23) Fracture of unspecified part of neck of right femur, initial encounter for closed fracture (08/16/23) Presence of unspecified artificial hip joint (08/16/23) Objective Data Objective Data Vital Signs: Vital Signs Temp Pulse Resp BP Pulse Ox O2 Del Method 98.1 F 90 15 147/94 H 100 Room Air 08/20/23 14:00 08/20/23 14:00 08/20/23 14:00 08/20/23 14:00 08/20/23 14:00 08/20/23 14:00 Oxygen Delivery Method Room Air Weight: 175 lb 14.4 oz Body Mass Index (BMI) 25.2 Intake & Output: Intake and Output for Last 24 Hours 08/18/23 08/19/23 08/20/23 23:59 23:59 23:59 Intake Total 2009 800 / 800 300 / 300 Output Total 1150 / 2350 3000 / 3000 Balance 860 / -340 -2200 / -2200 300 / 300 Lab / Micro Data 08/20/23 10:38 08/20/23 10:38 Labs: Laboratory Results - last 24 hr 08/20/23 10:38: WBC 6.1, RBC 2.65 L, Hgb 8.5 L, Hct 25.4 L, MCV 95.8 H, MCH 32.1 H, MCHC 33.5, RDW Std Deviation 47.1 H, RDW Coeff of Adiel 13.5, Plt Count 164, MPV 9.6, Immature Gran % (Auto) 0.700, Neut % (Auto) 72.6 H, Lymph % (Auto) 12.1 L, Hartley % (Auto) 9.8, Eos % (Auto) 4.1, Baso % (Auto) 0.7, Absolute Neuts (auto) 4.5, Absolute Lymphs (auto) 0.74 L, Nucleated RBC % 0, Sodium 132 L, Potassium 3.4 L, Chloride 104, Carbon Dioxide 22.0, Anion Gap 6, BUN 10, Creatinine 0.98, Estim Creat Clear Calc 80.70, Est GFR (MDRD) Af Amer 99, Est GFR (MDRD) Non-Af 82, BUN/Creatinine Ratio 10.2, Glucose 153 H, Calcium 8.7 Rhythm Strip Rhythm Strip: Sinus Rhythm Rate: 85 Ectopy: None Physical Exam Narrative Seen and examined. Patient did not had bowel movement since admission. On senna S2 tablet twice da dahiana. Feels like urgency for defecation. Physical exam General: Alert, Oriented x3, Cooperative HEENT: Atraumatic, PERRLA, EOMI, Normocephalic Oral: No Gingival or Mucosal Lesions/ Ulcerations Neck: Supple, No JVD, Negative Carotid Bruits Lungs: Air entry diminished in bilateral lung bases. No crepitation/rhonchi Cardiovascular: Regular rate, Regular Rhythm, Normal S1, Normal S2, No murmurs Abdomen: Bowel Sounds Present, Soft, Non Tender, Non-Distended : No renal angle tenderness. No suprapubic tenderness. Extremities: No edema, Capillary Refill Less than 3 Seconds Skin: No rashes, No breakdown Musculoskeletal: Right hip surgical dressing dry. Patient out of bed. No severe tenderness to Palpation of Joints or Extremities Neurological: Cranial nerves II-XII grossly intact, DTR 2+/4. No acute focal neurological deficit. Psych/Mental Status: Normal Affect, Appropriate. 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 Patient had severe right hip pain and found to have acute right hip fracture on x-ray. 1. #Acute RIght subcapital fracture due to mechanical fall * due to mechanical fall * right hip xray showed a right mildly displaced right humeral neck fracture * Patent had right total hip replacement by Dr. Obie Marshall on 08/17/2023. * Orthopedics was consulted and then signed off later on after surgery * PT/OT on board * PO tylenol, PO oxycodone and IV morphine prn for pain * fall precautionsPatient has work compensation and prescription signed for walker. Prescription also given for oxycodone 2.5 to 5 mg every 6 hourly as needed for severe pain. Total 10 tablets. OARRS checked. Narcan score 90. Patient has constipation. On senna S2 tablet twice daily. MiraLAX added. Dulcolax 10 mg 1 dose now. 2. #Nicotine dependence: counseled to quit. Nicotine patch 21mg daily. DVT prophylaxis; aspirin 81 mg twice daily changed to Eliquis 2.5 mg twice daily. Charges/Coding Visit Charges Inpatient E&M: 18785 Subs Hosp L2
[2023-08-20] MEDS: Bisacodyl 5 MG Tablet 10 MG PO (17:43)
[2023-08-20 21:13] VITALS: BP 152/91; PULSE 92; RESP 18; TEMP 36.5; O2SAT 100
[2023-08-20] MEDS: APIXABAN 2.5 MG TABLET (WCH) PO (21:33)
[2023-08-20] MEDS: 0.9% Saline Lock 10 ML Syringe IV (21:33)
[2023-08-21 04:54] VITALS: BP 132/90; PULSE 90; RESP 18; TEMP 36.7; O2SAT 100
[2023-08-21] MEDS: oxyCODONE 5 MG Tablet 10 MG PO (05:01)
[2023-08-21] MEDS: Acetaminophen 500 MG Tablet 1000 MG PO (05:01)
[2023-08-21 08:04] LABS: Absolute Lymphocyte Count 0.58 X10^3/uL (0.83-4.51); Absolute Neutrophil Count 2.6 X10^3/uL (2.0-7.7); Basophil# 0.02 X10^3/uL; Basophil% 0.5 % (0-1); Eosinophil# 0.17 X10^3/uL; Eosinophils% 4.4 % (0-5); Hematocrit 21.9 % (40-54); Hemoglobin 7.4 g/dL (13.0-16.5); Lymphocyte # 0.58 X10^3/ul (0.83-4.51); Mean Corp Hgb Conc 33.8 g/dL (32-36); Mean Corpuscular Volume 94.8 fL (80-94); Mean Platelet Vol. 9.6 fl (6.2-12.0); Monocyte# 0.48 X10^3/uL; Monocyte% 12.4 % (0-10); NRBC Flagged by Analyzer 0 % (0-5); Neutrophil # 2.57 X10^3/uL (2.7-7.7); Neutrophil % 66.7 % (47-70); POSITIVE DIFFERENTIAL YES; Platelet Count 140 K/mm3 (150-450); RBC Distribution Width CV 13.2 % (11.6-14.6); RBC Distribution Width SD 45.3 fl (35.1-43.9); Red Blood Count 2.31 M/mm3 (4.6-6.2); White Blood Count 3.9 K/mm3 (4.4-11.0)
[2023-08-21 08:07] LABS: Differential Indicated SCAN CRITERIA MET
[2023-08-21 08:17] VITALS: BP 134/81; PULSE 89; RESP 18; TEMP 36.6; O2SAT 100
[2023-08-21 08:37] LABS: Differential Comment SCANNED
[2023-08-21 08:47] LABS: Anion Gap 9 (5-15); BUN 9 mg/dL (7-18); BUN/Creat Ratio 11.3 RATIO (10-20); Calcium,Total 8.5 mg/dL (8.5-10.1); Chloride 106 mmol/L (98-107); EST Glomerular Filtration Rate 105 mL/min (>60); Est Glom Filt Rate - Afr Amer 127 mL/min (>60); Estimated Creatinine Clearance 98.85 ml/min; Glucose 108 mg/dL (74-106); Potassium 3.7 mmol/L (3.5-5.1); Sodium Level 134 mmol/L (136-145)
[2023-08-21] MEDS: APIXABAN 2.5 MG TABLET (WCH) PO (10:23)
--- NOTE | 2023-08-21 10:25 | PCM.DC ---
Discharge Instructions Diet Discharge Diet: No restrictions Activity Discharge Activity: May Not Drive Weight Bearing Status: Weight bearing as tolerated Dressing / Incision Call your doctor if you observe: Fever of 101 or Higher, Coldness, Increased Pain, Numbness or Tingling, Change in Color, Inability to urinate, Inability to have a bowel movement, Shortness of breath, Dizziness, Fainting spells, Swelling in the ankles, Chest pain, Prolonged hiccupping, Increased palpitations (irregular heartbeat) and Calf discomfort Follow Up Care When: IN 2 WEEKS Test Results: Test results from this visit will be discussed in further detail at your follow-up appointment, if applicable. Discharge Plan Admission Admit Date/Time: 08/16/23 06:25 Primary Reason for Your Visit: Acute closed right hip fracture. Attending Provider: Shorty Lea Primary Care Provider: Bryan Adame NP Consulting Providers: Patrice Watkins; Obie Marshall; Amaris Marks Discharge Orders/Prescriptions Prescriptions: New sennosides-docusate sodium [Stool Softener-Stimulant Laxat] 8.6-50 mg Tablet 2 tab PO BID Qty: 0 0RF Rx Instructions: Nnwt-erc-avnqblu. acetaminophen 500 mg Tablet 1,000 mg PO Q8 Qty: 0 0RF Rx Instructions: Rqyg-lkn-ujlsqps. 1000 mg every 8 hourly for 1 week and then as needed for 6 moderate to severe pain. oxycodone 5 mg Tablet 2.5 - 5 mg PO Q4H PRN PRN (Reason: Pain Score 4-10) 3 Days Qty: 10 0RF Rx Instructions: 0.5 mg for moderate pain and 5 mg for severe pain. polyethylene glycol 3350 [Natura-LAX] 17 gram/dose powder 17 g PO DAILY Qty: 510 0RF Eliquis 2.5 mg tablet 2.5 mg PO BID 30 Days Qty: 60 0RF Referrals / Follow Up: Bryan Adame NP, INTEGRATION DEVELOPER-C [Primary Care Provider] - In 1 Week (Patient has constipation normal stool softener.) Obie Marshall MD [Med Staff - Active Staff] - Within 2 Weeks (For hip fracture.) Disposition Disposition (needs filled in before D/C Order can be placed): Home Health Service
--- NOTE | 2023-08-21 10:47 | CASEMGMT ---
Addendum entered by Lorraine Wyman 08/21/23 13:46: Helene @ [facility] made aware pt is discharging home today. Original Note: [facility] NOTE: [facility] to room. Pt resting in bed. WW has been delivered to pt's room. Pt denies having any further discharge planning needs or concerns. He was made aware [facility] would be notified when he is discharging and they will f/u with him to schedule SOC appt. He voices appreciation. Candi MARTINEZ RN CM
--- NOTE | 2023-08-21 12:48 | DS.PCM_ITS ---
Providers Date of Admission: 08/16/23 Date of Discharge: 08/20/23 Primary Care Physician: Bryan Adame, [employer]IMES DETECTIVE-C Consultations 08/16/23 07:07 Consult: Orthopedics Routine Consulting Provider: Obie Marshall Reason for Consult: right hip fxr. 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 Patient had severe right hip pain and found to have acute right hip fracture on x-ray. 1. #Acute RIght subcapital fracture due to mechanical fall * due to mechanical fall * right hip xray showed a right mildly displaced right humeral neck fracture * Patent had right total hip replacement by Dr. Obie Marshall on 08/17/2023. * Orthopedics was consulted and then signed off later on after surgery * PT/OT on board * PO tylenol, PO oxycodone and IV morphine prn for pain * fall precautions Patient has work compensation and prescription signed for walker. Prescription also given for oxycodone 2.5 to 5 mg every 6 hourly as needed for severe pain. Total 10 tablets. OARRS checked. Narcan score 90. Patient has constipation. On senna S2 tablet twice daily. MiraLAX added. Advised to follow with PCP in 1 week. Prescription also given for Eliquis 2.5 mg twice daily for 1 month for DVT prophylaxis. 2. #Nicotine dependence: counseled to quit. Nicotine patch 21mg daily. DVT prophylaxis;on aspirin 81mg bid per orthopedic surgery Discharge medication reconciliation done. Discharge follow-up instructions completed. Discharge process discussed with the patient and all questions were answered to patient's satisfaction. Follow with PCP in 1 weeks and orthopedic surgery 2 weeks Total time spent, exact 35 minutes on discharge meds reconciliation, examination, coordination of care with nurses and ancillary staff, review of imaging and blood test and discussion with the patient on follow-up instructions. Medications at Discharge Home Medications acetaminophen 500 mg tablet 1,000 mg (2 x 500 mg) PO Q8 #0 tabs 08/20/23 apixaban 2.5 mg tablet (Eliquis) 2.5 mg PO BID 30 days #60 tabs 08/20/23 oxycodone 5 mg tablet 2.5 - 5 mg (0.5 - 1 x 5 mg) PO Q4H PRN PRN Pain Score 4-10 3 days #10 tabs 08/20/23 polyethylene glycol 3350 17 gram/dose oral powder (Natura-LAX) 17 g PO DAILY #510 grams 08/20/23 sennosides 8.6 mg-docusate sodium 50 mg tablet (Stool Softener-Stimulant Laxative) 2 tab PO BID #0 tabs 08/20/23 Physical Exam Narrative Seen and examined. Patient stayed in small bowel since admission. On senna S2 tablet twice daily. Feels like urgency for defecation. Physical exam General: Alert, Oriented x3, Cooperative HEENT: Atraumatic, PERRLA, EOMI, Normocephalic Oral: No Gingival or Mucosal Lesions/ Ulcerations Neck: Supple, No JVD, Negative Carotid Bruits Lungs: Air entry diminished in bilateral lung bases. No crepitation/rhonchi Cardiovascular: Regular rate, Regular Rhythm, Normal S1, Normal S2, No murmurs Abdomen: Bowel Sounds Present, Soft, Non Tender, Non-Distended : No renal angle tenderness. No suprapubic tenderness. Extremities: No edema, Capillary Refill Less than 3 Seconds Skin: No rashes, No breakdown Musculoskeletal: Right hip surgical dressing dry. Patient out of bed. No severe tenderness to Palpation of Joints or Extremities Neurological: Cranial nerves II-XII grossly intact, DTR 2+/4. No acute focal neurological deficit. Psych/Mental Status: Normal Affect, Appropriate. Weight / BMI Weight Weight: 175 lb 14.4 oz Body Mass Index (BMI) 25.2 ABG / Lab / Microbiology Data 08/20/23 10:38 08/20/23 10:38 Laboratory: Laboratory Results - last 24 hr 08/20/23 10:38: WBC 6.1, RBC 2.65 L, Hgb 8.5 L, Hct 25.4 L, MCV 95.8 H, MCH 32.1 H, MCHC 33.5, RDW Std Deviation 47.1 H, RDW Coeff of Adiel 13.5, Plt Count 164, MPV 9.6, Immature Gran % (Auto) 0.700, Neut % (Auto) 72.6 H, Lymph % (Auto) 12.1 L, [place] % (Auto) 9.8, Eos % (Auto) 4.1, Baso % (Auto) 0.7, Absolute Neuts (auto) 4.5, Absolute Lymphs (auto) 0.74 L, Nucleated RBC % 0, Sodium 132 L, Potassium 3.4 L, Chloride 104, Carbon Dioxide 22.0, Anion Gap 6, BUN 10, Creatinine 0.98, Estim Creat Clear Calc 80.70, Est GFR (MDRD) Af Amer 99, Est GFR (MDRD) Non-Af 82, BUN/Creatinine Ratio 10.2, Glucose 153 H, Calcium 8.7 D/C Instructions Discharge Diet: No restrictions Weight Bearing Status: Weight bearing as tolerated Call your doctor if you observe: Fever of 101 or Higher, Coldness, Increased Pain, Numbness or Tingling, Change in Color, Inability to urinate, Inability to have a bowel movement, Shortness of breath, Dizziness, Fainting spells, Swelling in the ankles, Chest pain, Prolonged hiccupping, Increased palpitations (irregular heartbeat) and Calf discomfort When: IN 2 WEEKS Meaningful Use Info Meaningful Use Diagnoses (Choose all that apply): None applicable Discharge Plan Admission Admit Date/Time: 08/16/23 06:25 Primary Reason for Your Visit: Acute closed right hip fracture. Attending Provider: Shorty Lea Primary Care Provider: Bryan Adame SEX CRIMES DETECTIVE Consulting Providers: Patrice Watkins; Obie Marshall; Amaris Marks Discharge Orders/Prescriptions Prescriptions: New sennosides-docusate sodium [Stool Softener-Stimulant Laxat] 8.6-50 mg Tablet 2 tab PO BID Qty: 0 0RF Rx Instructions: Wogf-lxs-pubfzad. acetaminophen 500 mg Tablet 1,000 mg PO Q8 Qty: 0 0RF Rx Instructions: Pnzs-jnm-ktkgomr. 1000 mg every 8 hourly for 1 week and then as needed for 6 moderate to severe pain. oxycodone 5 mg Tablet 2.5 - 5 mg PO Q4H PRN PRN (Reason: Pain Score 4-10) 3 Days Qty: 10 0RF Rx Instructions: 0.5 mg for moderate pain and 5 mg for severe pain. polyethylene glycol 3350 [Natura-LAX] 17 gram/dose powder 17 g PO DAILY Qty: 510 0RF Eliquis 2.5 mg tablet 2.5 mg PO BID 30 Days Qty: 60 0RF Referrals / Follow Up: Obie Marshall MD [Med Staff - Active Staff] - Within 2 Weeks (For hip fracture.) Bryan Adame NP, S[employer] CRIMES DETECTIVE-C [Primary Care Provider] - In 1 Week (Patient has constipation normal stool softener.) Disposition Disposition (needs filled in before D/C Order can be placed): Home Health Service Charges/Coding Visit Charges Inpatient E&M: 32010 Disch Hosp >30min
[2023-08-21 14:01] VITALS: BP 111/85; PULSE 98; RESP 18; TEMP 36.7; O2SAT 100
[2023-08-22 13:06] LABS: Pathologist Review Reviewed
== END 2023-08-21 14:20 | disposition home health service (06) | DRG 522 ==
LOC: ED 06:04 → MS3 06:32
PROVIDERS: Orthopaedic Surgery; Student in an Organized Health Care Education/Training Program; Emergency Provider Emergency Medicine; PCP Nurse Practitioner Family; Visit Provider Internal Medicine
PROC: 0SR90JZ Replacement of Right Hip Joint with Synthetic Substitute, Open Approach (ICD-10-PCS; CPT 27130; principal; 2023-08-17 11:00)
DX: S72.001A Fracture of unspecified part of neck of right femur, initial encounter for closed fracture (principal); D62 Acute posthemorrhagic anemia; E87.6 Hypokalemia; S40.011A Contusion of right shoulder, initial encounter; F17.210 Nicotine dependence, cigarettes, uncomplicated; W31.89XA Contact with other specified machinery, initial encounter
CPT/HCPCS: 36415; 71045; 73030; 73502; 80048; 80053; 82306; 85025; 86850; 86900; 86901; 88307; 88311; 93005; 97110; 97112; 97162; 97166; 97530; 97535; 99285; 99406; C1776; J7030; J7120; A4216; J2405

== ENCOUNTER → 2024-04-20 | Outpatient (CLI) | payer MEDICAID, SELFPAY ==
[2024-04-20 16:39] LABS: Absolute Lymphocyte Count 1.04 X10^3/uL (0.83-4.51); Absolute Neutrophil Count 3.5 X10^3/uL (2.0-7.7); Basophil# 0.03 X10^3/uL; Basophil% 0.6 % (0-1); Eosinophil# 0.19 X10^3/uL; Eosinophils% 3.8 % (0-5); Hematocrit 16.2 % (40-54); Lymphocyte # 1.04 X10^3/ul (0.83-4.51); Lymphocyte % 20.6 % (19-41); Mean Corp Hgb Conc 34.6 g/dL (32-36); Mean Corpuscular Hgb 31.5 pg (27.0-32.0); Mean Platelet Vol. 9.4 fl (6.2-12.0); Monocyte# 0.23 X10^3/uL; Monocyte% 4.6 % (0-10); NRBC Flagged by Analyzer 0 % (0-5); Neutrophil # 3.49 X10^3/uL (2.7-7.7); POSITIVE COUNT YES; Platelet Count 218 K/mm3 (150-450); RBC Distribution Width CV 13.4 % (11.6-14.6); RBC Distribution Width SD 43.7 fl (35.1-43.9); Red Blood Count 1.78 M/mm3 (4.6-6.2); White Blood Count 5.1 K/mm3 (4.4-11.0)
[2024-04-20 17:03] LABS: Differential Indicated SCAN CRITERIA MET; Hemoglobin 5.6 g/dL (13.0-16.5)
[2024-04-20 17:19] LABS: Crenated RBC RARE; Differential Comment SCANNED; Hypochromasia 1+
[2024-04-20 17:20] LABS: Cholesterol 103 mg/dL (200); High Density Lipoprotein 46 mg/dL; PSA,Total - Annual Screen 0.35 ng/mL (0.00-4.00); Thyroid Stim Hormone (TSH) 3.09 uIU/mL (0.358-3.74); Triglycerides 142 mg/dL; Very Low Density Lipoprotein 28 mg/dL (5-40)
[2024-04-20 17:57] LABS: Hepatitis C Antibody Non-Reactive (Nonreactive); Vitamin B12 513 pg/mL (211-911)
[2024-04-21 13:37] LABS: Pathologist Review Reviewed
== END | disposition home or self-care (01) ==
LOC: POLAB3 16:00
PROVIDERS: PCP Family Medicine Geriatric Medicine; Visit Provider Family Medicine Geriatric Medicine
DX: E78.5 Hyperlipidemia, unspecified (principal); R53.83 Other fatigue; Z13.89 Encounter for screening for other disorder; Z12.5 Encounter for screening for malignant neoplasm of prostate; E55.9 Vitamin D deficiency, unspecified; E87.1 Hypo-osmolality and hyponatremia
CPT/HCPCS: 84153; 36415; 80061; 82306; 82607; 84443; 85025; 86803; G0103

== ENCOUNTER 2024-04-21 11:36 | Observation (INO) | payer MEDICAID, SELFPAY ==
[2024-04-21] VITALS (11 sets, daily range): BP systolic 109–138; BP diastolic 73–89; PULSE 78–109; RESP 14–19; TEMP 36.2–37.2; O2SAT 92–100; BMI 22.4; BMI 18.3
--- NOTE | 2024-04-21 12:11 | RAD_ITS ---
STUDY: X-RAY CHEST REASON FOR EXAM: Male, 64 years old. Weakness TECHNIQUE: Single AP portable view of the chest. COMPARISON: Comparison is made with prior study August 16, 2023. FINDINGS: EKG electrodes are seen. There is hyperinflation of the lungs consistent with chronic obstructive lung disease (COPD). There is no demonstrated pleural abnormality. Normal size heart. Normal mediastinum and raissa. Normal visualized pulmonary arteries. Normal visualized aortic arch and descending thoracic aorta. There are degenerative changes of the visualized thoracic spine. Healed right rib fractures. There is no demonstrated abnormality of the visualized soft tissue structures of the upper abdomen. RAD/Chest 1 View (Portable) IMPRESSION: Hyperinflation and COPD. Healed right rib fractures. Electronically Signed: Cosme Rsut MD at 13:35 EDT ,
--- NOTE | 2024-04-21 12:11 | CT_ITS ---
STUDY: CT ABDOMEN AND PELVIS WITH CONTRAST REASON FOR EXAM: Male, 64 years old. Weight loss. Weakness. Low hemoglobin. RADIATION DOSAGE (If Supplied By Facility): CTDIvol = ( 14.74 ) mGy, DLP = ( 823.07 ) mGycm TECHNIQUE: Transaxial images were obtained from the dome of the diaphragm to the symphysis pubis without oral contrast. IV 100mL Isovue-300 was administered. Sagittal and coronal images were reconstructed. Individualized dose optimization techniques were used for this CT. COMPARISON: None. FINDINGS: Punctate calcified granuloma in the lateral aspect of the right lower lobe. The visualized portions of the heart are within normal limits. Normal liver. Normal gallbladder and extrahepatic biliary system. Normal spleen. There is a 1.65 cm cyst in the tail portion of the pancreas. Calcific densities are seen in the body and tail portion of the pancreas suggestive of chronic pancreatitis. Normal bilateral adrenal glands. Normal right kidney. Normal left kidney. Diffuse gastric wall thickening along the stomach is not completely distended at this time. Normal small intestine. Irregular thickening and possible mass in the proximal transverse colon just distal to the hepatic flexure. A large amount of fecal material is seen throughout the colon. The appendix is visualized and appears normal. There is scattered atherosclerotic calcification of the abdominal aorta, without a demonstrated aneurysm. Normal inferior vena cava. Normal retroperitoneum. Normal urinary bladder. Normal abdominal wall. There are diffuse degenerative changes of the visualized lumbar spine. CT/Abdomen/Pelvis W IV Cont ONLY IMPRESSION: Thickening and possible mass lesion in the proximal portion of the transverse colon just distal to the hepatic flexure. A neoplastic process should be ruled out. Diffuse gastric wall thickening although the stomach is not completely distended. 1.65 cm cyst in the tail portion of the pancreas. Electronically Signed: Cosme Rust MD at 13:56 EDT ,
--- NOTE | 2024-04-21 12:16 | EX.ED.DYSGE1 ---
HPI History of Present Illness Chief Complaint: Dizziness Detail of Chief Complaint: Generalized weakness and weight loss for months. Informant: patient and family Onset/Context/Timing Onset: Month(s) Context: Gradual Onset Timing: Continuous Current Severity: Mild Maximum Severity: Mild Narrative Narrative: 64-year-old male past medical history of prior hip replacement prior neck surgery for degenerative disc disease. Had not had a physician for some time. Saw Dr. Macedo yesterday had labs done which showed anemia. And sent him in for a blood transfusion. Patient has been feeling well for months. He has had about 25 pound weight loss unintentionally last 3 months. He denies any vomiting, diarrhea or melena. Said he has not been able to eat well because he had an appetite. He denies any history of any type of cancer or prior GI bleed. He denies any black or bloody stools. Currently he is on no medications and no blood thinners. Prior similar symptoms: No Recent Illness/Hospitalization: No PFSH PFS Medical History Closed fracture of right hip Home Medications ?Medication ?Instructions ?Recorded ?Last Taken ?Type mirtazapine 7.5 mg tablet 7.5 mg PO QHS 04/21/24 Unknown History Allergy/AdvReac Type Severity Reaction Status Date / Time No Known Allergies Allergy Verified 08/16/23 05:09 Surgical History S/P total hip arthroplasty Hx of neck surgery Social History Smoking Status: Current some day smoker tobacco type: cigarettes alcohol intake: current alcohol intake frequency: a few times a week substance use type: does not use ROS ROS ED ROS Narrative Generalized weakness. Weight loss. Constitutional Constitutional ED: Denies chills or fever(s) Eyes Eyes: Denies blurry vision ENT ENT ED: Denies ear pain Cardiovascular Cardiovascular: Denies chest pain Respiratory/Chest Respiratory/Chest: Denies cough Gastrointestinal Gastrointestinal: Denies abdominal pain, diarrhea, nausea or vomiting Genitourinary Genitourinary ED: Denies dysuria or hematuria Musculoskeletal Musculoskeletal: Denies arthralgias Integumentary Denies abscess Neurologic Neurologic: Denies headache(s) Psychiatric Psychiatric: Denies anxiety Endocrine Endocrinology: Denies cold intolerance Hematologic/Lymphatic Hematologic/Lymphatic: Reports anemia; Denies easy bleeding, easy bruising or lymphadenopathy Allergic/Immunologic Allergic/Immunologic ED: Denies mouth swelling, tongue swelling or urticaria EXAM Physical Exam Narrative Exam Narrative: Well-appearing 64-year-old male. Vital signs are stable. He is afebrile. He does not look septic toxic. He is in no distress. H EENT exam unremarkable atraumatic. Pupils are round react to light. Neck nontender. No lymphadenopathy. Lungs good auscultation bilaterally. Heart regular rhythm rate about 105 no murmur. Abdomen is soft, nontender, nondistended normal bowel sounds no peritoneal signs. No obvious masses. Moving all 4 extremities. 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 Nontender no edema. He is awake and alert. He is answering questions following commands. Back nontender. Skin unremarkable. Const Vital Signs: 04/21/24 11:37 04/21/24 12:21 04/21/24 12:21 Temperature 97.7 F L Temperature Source Temporal Pulse Rate 109 H 94 Respiratory Rate 19 H 16 Respiratory Effort Normal Non-Labored Respiratory Pattern Normal Blood Pressure 109/75 116/84 H Blood Pressure Mean 86 94 Pulse Ox 98 96 Oxygen Delivery Method Room Air Room Air 04/21/24 14:00 Temperature 98.1 F Temperature Source Pulse Rate 87 Respiratory Rate 16 Respiratory Effort Respiratory Pattern Blood Pressure 135/84 H Blood Pressure Mean 101 Pulse Ox 97 Oxygen Delivery Method Positive well nourished and well developed; Negative for obese, cachectic, contractures or unkempt General Appearance ED: well developed, NAD and pallor; Negative for unkempt, cachectic, contractures, cyanotic or diaphoretic Nutritional Appearance: Negative for cachectic or obese HEENT Reports moist mucous membranes Negative for trauma or tenderness Eyes PERRL and EOMs intact bilaterally General Eye ED: Negative for pale conjunctiva Neck no lymphadenopathy, supple and no JVD General: Negative for tenderness Lymph Lymphatic: Negative for other Chest Wall inspection of chest normal and palpation of chest normal Chest: Negative for other Resp normal respiratory effort and clear to auscultation bilaterally Effort and Inspection: Negative for retractions Auscultation: Negative for rales, rhonchi, wheezes or diminished lung sounds Cardio regular rhythm, S1 normal heart sound, S2 normal heart sound and no murmurs; Negative for regular rate Rate: tachycardic Rhythm: Negative for abnormal rhythm GI normal to inspection, nondistended, normoactive bowel sounds, non-tender, non-distended and no masses Inspection: Negative for abdominal distention Auscultation: normoactive bowel sounds Palpation: soft; Negative for tender, guarding or rebound tenderness present Back/Spine no CVA tenderness General Back: Negative for CVA tenderness Cervical Spine: Negative for cervical spine tenderness Thoracic Spine / Upper Back: Negative for thoracic spinal tenderness or paraspinal muscle tenderness Lumbar Spine / Lower Back: Negative for lumbar spinal tenderness Extremity normal to inspection General Extremety ED: Negative for edema or tenderness General Extremity: Negative for edema Neuro oriented x3 and CN's II-XII intact bilaterally Sensorium / Orientation: alert; Negative for orientation impaired, lethargic or stuporous Motor Exam: strength 5/5 throughout; Negative for general weakness or strength abnormal Psych mental status grossly normal Appearance: Negative for unkempt Attitude: No agitated Mood & Affect: Negative for depressed, anxious or tearful Skin no rashes or lesions noted, no wounds and skin turgor normal General Skin Exam: elasticity normal and pallor; Negative for jaundice Lesions: No lesion noted Rashes: No rashes noted Trauma: Negative for abrasion Wounds: Negative for wounds noted MDM MDM MDM Narrative Medical decision making narrative: 64-year-old male with acute on chronic anemia with weight loss. Screening labs. Type and cross and transfuse 2 units antibeta get a CT of the abdomen pelvis and a chest x-ray due to his weight loss evaluating for possible malignancy. Repeat exam at 2:19 PM unchanged. I did go over the test results patient and family, and the hospitalist. He will be admitted for further evaluation and workup for possible colon mass. History & Record Review Discussion w/independent historian: Patient and Family Additional record(s) reviewed:: Prior inpatient record, Prior outpatient record, Prior ED visit and Prior labs Lab Data Attestation: I reviewed the patient's lab results. Lab results narrative: CBC shows normal white count 4.8 H&H of 5.6 and 16. Has had prior anemias but this is lower than his baseline. Platelets 201. Electrolytes are sodium 126. Gap 12. Normal BUN and creatinine. Glucose 117. Liver enzymes unremarkable. Labs: Laboratory Results - last 24 hr 04/21/24 12:30 WBC 4.8 RBC 1.78 L Hgb 5.6 L* Hct 16.2 L MCV 91.0 MCH 31.5 MCHC 34.6 RDW Std Deviation 43.2 RDW Coeff of Adiel 13.2 Plt Count 201 MPV 9.0 Immature Gran % (Auto) 1.300 H Neut % (Auto) 74.1 H Lymph % (Auto) 15.6 L [place] % (Auto) 4.0 Eos % (Auto) 4.8 Baso % (Auto) 0.2 Absolute Neuts (auto) 3.5 Absolute Lymphs (auto) 0.74 L Nucleated RBC % 0 Differential Comment COMMENT Diff Path Review May foll Sodium 126 L Potassium 3.5 Chloride 95 L Carbon Dioxide 19.0 L Anion Gap 12 BUN 10 Creatinine 0.98 Estim Creat Clear Calc 77.22 Est GFR (MDRD) Af Amer 100 Est GFR (MDRD) Non-Af 82 BUN/Creatinine Ratio 10.2 Glucose 117 H Calcium 8.6 Total Bilirubin 0.60 AST 23 ALT 13 L Alkaline Phosphatase 143 H Total Protein 7.9 Albumin 3.4 Globulin 4.5 H Albumin/Globulin Ratio 0.8 L Blood Type A POSITIVE Antibody Screen NEGATIVE Crossmatch See Detail Radiography Diagnostic Testing: Clinical Impression(s) from Imaging Studies Abdomen/Pelvis CT 04/21/24 12:11 IMPRESSION: Thickening and possible mass lesion in the proximal portion of the transverse colon just distal to the hepatic flexure. A neoplastic process should be ruled out. Diffuse gastric wall thickening although the stomach is not completely distended. 1.65 cm cyst in the tail portion of the pancreas. Electronically Signed: Cosme Rust MD at 13:56 EDT , Chest X-Ray 04/21/24 12:11 IMPRESSION: Hyperinflation and COPD. Healed right rib fractures. Electronically Signed: Cosme Rust MD at 13:35 EDT , Discharge Plan Dx/Rx/DC Orders Clinical Impression: Anemia, Abnormal weight loss, Transfusion of blood during current hospitalization, Colonic mass, Acute hyponatremia Disposition Disposition: Acute Care Hospital [facility]
[2024-04-21 12:42] LABS: Absolute Lymphocyte Count 0.74 X10^3/uL (0.83-4.51); Absolute Neutrophil Count 3.5 X10^3/uL (2.0-7.7); Basophil# 0.01 X10^3/uL; Basophil% 0.2 % (0-1); Eosinophil# 0.23 X10^3/uL; Eosinophils% 4.8 % (0-5); Hematocrit 16.2 % (40-54); Lymphocyte # 0.74 X10^3/ul (0.83-4.51); Lymphocyte % 15.6 % (19-41); Mean Corp Hgb Conc 34.6 g/dL (32-36); Mean Corpuscular Hgb 31.5 pg (27.0-32.0); Monocyte# 0.19 X10^3/uL; NRBC Flagged by Analyzer 0 % (0-5); Neutrophil # 3.52 X10^3/uL (2.7-7.7); Neutrophil % 74.1 % (47-70); POSITIVE COUNT YES; Platelet Count 201 K/mm3 (150-450); RBC Distribution Width CV 13.2 % (11.6-14.6); RBC Distribution Width SD 43.2 fl (35.1-43.9); Red Blood Count 1.78 M/mm3 (4.6-6.2); White Blood Count 4.8 K/mm3 (4.4-11.0)
[2024-04-21 12:47] LABS: Differential Indicated SCAN CRITERIA MET; Hemoglobin 5.6 g/dL (13.0-16.5)
[2024-04-21 12:57] LABS: ALB/GLOB Ratio 0.8 RATIO (0.9-2.4); AST(SGOT) 23 U/L (15-37); Alanine Aminotransfer ALT/SGPT 13 U/L (16-61); Albumin, Serum 3.4 g/dL (3.2-5.0); Alkaline Phosphatase 143 U/L (45-117); Anion Gap 12 (5-15); BUN 10 mg/dL (7-18); BUN/Creat Ratio 10.2 RATIO (10-20); Calcium,Total 8.6 mg/dL (8.5-10.1); Chloride 95 mmol/L (98-107); Creatinine, Serum 0.98 mg/dL (0.70-1.30); EST Glomerular Filtration Rate 82 mL/min (>60); Est Glom Filt Rate - Afr Amer 100 mL/min (>60); Estimated Creatinine Clearance 77.22 ml/min; Globulin 4.5 g/dL (2.2-4.2); Glucose 117 mg/dL (74-106); Potassium 3.5 mmol/L (3.5-5.1); Protein, Total 7.9 g/dL (6.4-8.2); Sodium Level 126 mmol/L (136-145)
--- NOTE | 2024-04-21 14:28 | NURSING ---
MED SURG TERELETSDANIEL ANEMIA, TRANSFUSION, R/O COLON CANCER, WEIGHT LOSS, HYPONATREMIA
--- NOTE | 2024-04-21 15:55 | HP.PCM.HOS_ITS ---
HPI - General General Date of Admission: 04/21/24 Date of Service: 04/21/24 Chief Complaint: Abnormal labs HPI Narrative KIM ESCALONA, is a 64 M who presents to the emergency room at [facility] at the direction of his PCP due to abnormal labs which were obtained yesterday. Patient had a CBC which showed a hemoglobin of 5.6, patient does not usually go to a physician and had gone to Dr. Macedo to establish care yesterday. Patient stated that he felt generally unwell, he was nonspecific however, patient has chronic pain in his right hip from a fracture which was repaired in August of last year. Patient states that in the last 3 months he has lost 20 pounds of weight. Patient further states that he has not had a bowel movement in over 2 weeks. Labs obtained in the emergency room showed the patient's hemoglobin to be 5.6, chemistry profile was abnormal for a sodium of 126 and a bicarb of 19. Patient's alkaline phosphatase was elevated at 143. Patient had CT of the abdomen pelvis with contrast, there was a thickening of possible mass lesion in the proximal portion of the transverse colon just distal to the hepatic flexure. There is also noted to be diffuse gastric wall thickening. Patient will be admitted to PCU, he will be transfused 2 units of packed red blood cells, patient will be seen in consultation by general surgery for colonoscopy. [facility] Medical History Closed fracture of right hip Home Medications ?Medication ?Instructions ?Recorded ?Last Taken ?Type mirtazapine 7.5 mg tablet 7.5 mg PO QHS 04/21/24 Unknown History Allergy/AdvReac Type Severity Reaction Status Date / Time No Known Allergies Allergy Verified 08/16/23 05:09 Surgical History S/P total hip arthroplasty Hx of neck surgery Social History Smoking Status: Current some day smoker tobacco type: cigarettes alcohol intake: current alcohol intake frequency: a few times a week substance use type: does not use ROS Constitutional Constitutional: Reports malaise; Denies anorexia, change in weight, fever(s), night sweats or weakness Eyes Eyes: Denies blurry vision, change in vision, discharge from eye(s) or eye pain Cardiovascular Cardiovascular: Denies chest pain, claudication, dyspnea on exertion, edema or palpitations Respiratory/Chest Respiratory/Chest: Denies cough, hemoptysis, shortness of breath at rest or shortness of breath with exertion Gastrointestinal Gastrointestinal: Denies abdominal pain, constipation, diarrhea, hematemesis, hematochezia, melena, nausea or vomiting Genitourinary Genitourinary: Denies dysuria, hematuria, urinary frequency, urinary hesitancy, urinary incontinence or urinary urgency Musculoskeletal Musculoskeletal: Denies back pain, joint pain, joint stiffness, joint swelling, myalgias or neck pain Neurologic Neurologic: Denies abnormal gait, abnormal speech, confusion, disequilibrium, dizziness, focal weakness, headache(s), loss of vision, numbness, other visual disturbances, paresthesias, syncope or tingling Psychiatric Psychiatric: Denies anxiety, cognitive impairment, depression, irritability, mood swings or suicidal ideation Endocrine Endocrinology: Reports other Details: The patient states he has lost approximately 20 pounds of weight in the last 3 months ; Denies change in body appearance, cold intolerance, excessive sweating, heat intolerance, polydipsia or polyuria Hematologic/Lymphatic Hematologic/Lymphatic: Denies none, anemia, easy bleeding, easy bruising or lymphadenopathy Allergic/Immunologic Allergic/Immunologic: Denies rhinitis, urticaria, eczemia or asthma Vital Signs Vital Signs Vital Signs: 04/21/24 11:37 04/21/24 12:21 04/21/24 12:21 Temperature 97.7 F L Temperature Source Temporal Pulse Rate 109 H 94 Respiratory Rate 19 H 16 Respiratory Effort Normal Non-Labored Respiratory Pattern Normal Blood Pressure 109/75 116/84 H Blood Pressure Mean 86 94 Blood Pressure Source Blood Pressure Position Blood Pressure Location Pulse Ox 98 96 Oxygen Delivery Method Room Air Room Air 04/21/24 14:00 04/21/24 15:13 Temperature 98.1 F 97.5 F L Temperature Source Temporal Pulse Rate 87 84 Respiratory Rate 16 18 Respiratory Effort Respiratory Pattern Blood Pressure 135/84 H 109/74 Blood Pressure Mean 101 85 Blood Pressure Source Monitor Blood Pressure Position Semi-Fowlers Blood Pressure Location Right Arm Pulse Ox 97 96 Oxygen Delivery Method Room Air Weight Weight: 70.76 kg Body Mass Index (BMI) 22.4 Physical Exam Const alert, oriented x3, no apparent distress, average body habitus and healthy appearing General Appearance: cooperative, well kempt and well developed Orientation / Consciousness: awake, oriented to person, oriented to place and oriented to time HEENT normocephalic, head/scalp atraumatic and moist oral mucous membranes Eyes PERRL, EOMs intact bilaterally and conjunctivae normal Neck supple, no JVD, thyroid normal and no carotid bruits General: trachea midline Resp normal respiratory effort, no retractions, no use of accessory muscles and clear to auscultation bilaterally Auscultation: Negative for rales, rhonchi or wheezes Cardio regular rate, regular rhythm, S1 normal heart sound, S2 normal heart sound, no murmurs, no rub and no gallops GI normal to inspection, nondistended, normoactive bowel sounds, soft to palpation, non-tender and non-distended Extremity no clubbing, cyanosis or edema Skin no rashes or lesions noted General Skin Exam: no breakdown Neuro oriented x3, CN's II-XII intact bilaterally, moves all extremities, no focal motor deficits and no sensory deficits noted Sensorium / Orientation: awake and alert Speech: speech normal Psych affect normal Results Lab / Micro Data 04/21/24 12:30 04/21/24 12:30 Labs: Laboratory Results - last 24 hr 04/21/24 12:30: WBC 4.8, RBC 1.78 L, Hgb 5.6 L*, Hct 16.2 L, MCV 91.0, MCH 31.5, MCHC 34.6, RDW Std Deviation 43.2, RDW Coeff of Adiel 13.2, Plt Count 201, MPV 9.0, Immature Gran % (Auto) 1.300 H, Neut % (Auto) 74.1 H, Lymph % (Auto) 15.6 L , [place] % (Auto) 4.0, Eos % (Auto) 4.8, Baso % (Auto) 0.2, Absolute Neuts (auto) 3.5, Absolute Lymphs (auto) 0.74 L, Nucleated RBC % 0, Differential Comment COMMENT, Diff Path Review January, Sodium 126 L, Potassium 3.5, Chloride 95 L, Carbon Dioxide 19.0 L, Anion Gap 12, BUN 10, Creatinine 0.98, Estim Creat Clear Calc 77.22, Est GFR (MDRD) Af Amer 100, Est GFR (MDRD) Non-Af 82, BUN/Creatinine Ratio 10.2, Glucose 117 H, Calcium 8.6, Total Bilirubin 0.60, AST 23, ALT 13 L, Alkaline Phosphatase 143 H, Total Protein 7.9, Albumin 3.4, Globulin 4.5 H, A lbumin/Globulin Ratio 0.8 L, Blood Type A POSITIVE, Antibody Screen NEGATIVE, Crossmatch See Detail Imaging Radiology Impression Abdomen/Pelvis CT 04/21/24 12:11 IMPRESSION: Thickening and possible mass lesion in the proximal portion of the transverse colon just distal to the hepatic flexure. A neoplastic process should be ruled out. Diffuse gastric wall thickening although the stomach is not completely distended. 1.65 cm cyst in the tail portion of the pancreas. Electronically Signed: Cosme Rust MD at 13:56 EDT , Chest X-Ray 04/21/24 12:11 IMPRESSION: Hyperinflation and COPD. Healed right rib fractures. Electronically Signed: Cosme Rust MD at 13:35 EDT , Assessment & Plan Assessment/Plan (1) Anemia: PLAN: Plan 1. Anemia-etiology unclear, patient's last hemoglobin ,before yesterday's blood work, was done in August of last year and it was 7.4 the day of discharge from the hospital for repair of his hip fracture. Patient does not follow-up with a doctor on a regular basis. #2 possible colonic mass in the transverse colon noted on CT scan-General Surgery will see the patient, he will need to undergo colonoscopy to confirm these findings. #3 chronic right hip pain secondary to past history of hip fracture Total clinical time spent by myself addressing the patient's medical issues, reviewing all of his data, and collaborating with patient's care team: 55 minutes Charges/Coding Visit Charges Inpatient E&M: 00423 Init Hosp L2
--- NOTE | 2024-04-21 17:21 | EX.PCM.CON.S ---
Assessment & Plan Assessment/Plan (1) Anemia: PLAN: Patient is a 64-year-old male who presents with progressive weakness, dizziness, frequent falls, and recent laboratory evidence of severe anemia with a hemoglobin of 5.6. Patient denies any awareness of signs of hemoptysis, hematochezia, or melena and CT imaging of the abdomen pelvis suggests possible mass within the transverse colon distal to the hepatic flexure. In my independent review of this imaging I also believe there is a possible mass within the cecal/ascending colon region. Distal to this area patient has significant fecal impaction which is consistent with his description of very few bowel movements over the last 3 weeks, however, it does speak somewhat against the areas of concern posing a risk for mechanical obstruction. Interestingly, patient does report a negative screening colonoscopy within the last 5 years so this would suggest a potentially rapidly?dividing neoplasm. Lastly, patient does reportedly confessed to a history of ibuprofen overuse and radiology reads potentially thickened gastric wall on the CT. Thus with all of the above in mind I recommend proceeding for diagnostic EGD and colonoscopy tomorrow. Patient is currently receiving transfusions through hospitalist service and I have asked that they placed him on a clear liquid diet and begin a bowel prep as soon as possible to try to facilitate an adequate exam. Given the presence of a distal stool burden I have recommended proceeding this bowel prep with an enema. (2) Colonic mass: PLAN: As above, radiology suggests possible mass within the proximal transverse colon and I independently hold concern for possible mass of the cecum/ascending colon. HPI Consult Data Date of Consult: 04/21/24 HPI Narrative Reason for Consultation: Severe anemia HPI Narrative: KIM ESCALONA, is a 64 M who presents to [facility] on direction from Dr. Macedo after he obtained a CBC demonstrating hemoglobin of 5.6. For his part, Mr. Escalona shares that he has experienced approximately 3 weeks of gradual weakness and frequent falls. Along with this he has experienced a roughly 20 pound weight loss as he confesses he has no appetite any longer. Lastly he shares that he has not had a normal bowel movement in the same time span. Through patient's ER evaluation hemoglobin of 5.[address] imaging was obtained of the abdomen and pelvis showing a possible colonic mass just distal to the hepatic flexure. Radiology also noted the presence of some gastric wall thickening. Mr. Escalona denies any dark or bloody bowel movements. He also denies any bloody vomitus. He does have a chronic history of heartburn. Mr. Escalona confirms that he does not frequently go to be evaluated for medical things unless they are well advanced. However, he was concerned with a constellation of things he had experienced over the last 3 weeks and was looking to become established with a PCP when he obtain the labs for Dr. Macedo. He does report that he underwent a screening colonoscopy approximately 5 years ago at the [facility]. He recalls that he had a perfect a hole without any polyps but also suggests that he was expecting to undergo another colonoscopy in the near future with a 5-year follow-up interval. [facility] Medical History Closed fracture of right hip Home Medications ?Medication ?Instructions ?Recorded ?Last Taken ?Type mirtazapine 7.5 mg tablet 7.5 mg PO QHS 04/21/24 Unknown History Allergy/AdvReac Type Severity Reaction Status Date / Time No Known Allergies Allergy Verified 08/16/23 05:09 Surgical History S/P total hip arthroplasty Hx of neck surgery Social History Smoking Status: Current some day smoker tobacco type: cigarettes alcohol intake: current alcohol intake frequency: a few times a week substance use type: does not use ROS Constitutional Constitutional: Reports frequent falls and weight loss Gastrointestinal Gastrointestinal: Reports change in bowel habits, constipation and heartburn Genitourinary Genitourinary: Reports change in urinary stream and difficulty urinating Neurologic Neurologic: Reports weakness Physical Exam Const alert, oriented x3 and no apparent distress HEENT HEENT Narrative: Facial pallor evident Resp normal respiratory effort GI GI Narrative: No scars, nondistended, soft, nontender to palpation x 4 quadrants Lab / Micro Data 04/21/24 12:30 04/21/24 12:30 Labs: Laboratory Results - last 24 hr 04/21/24 12:30: WBC 4.8, RBC 1.78 L, Hgb 5.6 L*, Hct 16.2 L, MCV 91.0, MCH 31.5, MCHC 34.6, RDW Std Deviation 43.2, RDW Coeff of Adiel 13.2, Plt Count 201, MPV 9.0, Immature Gran % (Auto) 1.300 H, Neut % (Auto) 74.1 H, Lymph % (Auto) 15.6 L, [place] % (Auto) 4.0, Eos % (Auto) 4.8, Baso % (Auto) 0.2, Absolute Neuts (auto) 3.5, Absolute Lymphs (auto) 0.74 L, Nucleated RBC % 0, Differential Comment COMMENT, Diff Path Review January, Sodium 126 L, Potassium 3.5, Chloride 95 L, Carbon Dioxide 19.0 L, Anion Gap 12, BUN 10, Creatinine 0.98, Estim Creat Clear Calc 77.22, Est GFR (MDRD) Af Amer 100, Est GFR (MDRD) Non-Af 82, BUN/Creatinine Ratio 10.2, Glucose 117 H, Calcium 8.6, Total Bilirubin 0.60, AST 23, ALT 13 L, Alkaline Phosphatase 143 H, Total Protein 7.9, Albumin 3.4, Globulin 4.5 H, Albumin/Globulin Ratio 0.8 L, Blood Type A POSITIVE, Antibody Screen NEGATIVE, Crossmatch See Detail Imaging Radiology Impression Abdomen/Pelvis CT 04/21/24 12:11 IMPRESSION: Thickening and possible mass lesion in the proximal portion of the transverse colon just distal to the hepatic flexure. A neoplastic process should be ruled out. Diffuse gastric wall thickening although the stomach is not completely distended. 1.65 cm cyst in the tail portion of the pancreas. Electronically Signed: Cosme Rust MD at 13:56 EDT , Chest X-Ray 04/21/24 12:11 IMPRESSION: Hyperinflation and COPD. Healed right rib fractures. Electronically Signed: Cosme Rust MD at 13:35 EDT , Charges/Coding Visit Charges Inpatient E&M: 17986 Init Hosp L2
[2024-04-21] MEDS: Electrolyte Solution/Peg's 4000 ML PO (18:57)
[2024-04-21] MEDS: 0.9% Normal Saline (1000mL) 1,000 ML 75 ML IV (18:57)
[2024-04-21] MEDS: Mineral Oil 1 BOTTLE ENEMA 118 ML RC (19:01)
[2024-04-21] MEDS: Mirtazapine 15 MG Tablet 7.5 MG PO (21:25)
[2024-04-21] MEDS: Pantoprazole Sodium 40 MG in 0.9% Normal Saline (100mL MB+) 100 ML 330 MG IV (21:36)
[2024-04-22 00:29] LABS: Hematocrit 20.2 % (40-54); Hemoglobin 7.2 g/dL (13.0-16.5)
[2024-04-22 03:30] VITALS: BP 124/86; PULSE 70; RESP 18; TEMP 36.1; O2SAT 100
--- NOTE | 2024-04-22 05:00 | EKG12_ITS ---
Test Reason : PRE OP Blood Pressure : / mmHG Vent. Rate : 067 BPM Atrial Rate : 067 BPM P-R Int : 206 ms QRS Dur : 100 ms QT Int : 396 ms P-R-T Axes : 030 005 039 degrees QTc Int : 418 ms Normal sinus rhythm Septal infarct (cited on or before 16-AUG-2023) Abnormal ECG When compared with ECG of 16-AUG-2023 05:14, No significant change was found Confirmed by CELESTINE MONTERO, DENIS ([id number]), assistant film editor KHOA FORTUNE ([id number]) on 04/26/2024 10:24:38 AM Referred By: Confirmed By:THEODORA SPRAGUE MD
[2024-04-22 05:47] VITALS: BMI 18.3
[2024-04-22 06:03] LABS: Absolute Lymphocyte Count 0.75 X10^3/uL (0.83-4.51); Absolute Neutrophil Count 2.4 X10^3/uL (2.0-7.7); Basophil# 0.02 X10^3/uL; Basophil% 0.6 % (0-1); Eosinophil# 0.13 X10^3/uL; Eosinophils% 3.6 % (0-5); Hematocrit 20.4 % (40-54); Hemoglobin 7.2 g/dL (13.0-16.5); Lymphocyte # 0.75 X10^3/ul (0.83-4.51); Lymphocyte % 20.7 % (19-41); Mean Corp Hgb Conc 35.3 g/dL (32-36); Mean Corpuscular Hgb 30.8 pg (27.0-32.0); Mean Corpuscular Volume 87.2 fL (80-94); Mean Platelet Vol. 9.3 fl (6.2-12.0); Monocyte# 0.27 X10^3/uL; Monocyte% 7.4 % (0-10); NRBC Flagged by Analyzer 0 % (0-5); Platelet Count 138 K/mm3 (150-450); RBC Distribution Width CV 14.9 % (11.6-14.6); RBC Distribution Width SD 47.1 fl (35.1-43.9); Red Blood Count 2.34 M/mm3 (4.6-6.2); White Blood Count 3.6 K/mm3 (4.4-11.0)
[2024-04-22 06:26] LABS: International Normalized Ratio 1.1; Prothrombin Time (Protime)PT. 13.9 SECONDS (11.7-14.9)
[2024-04-22 06:27] LABS: Partial Thromboplast Time 37.8 Seconds (24.1-36.2)
[2024-04-22 07:09] LABS: Anion Gap 8 (5-15); BUN 8 mg/dL (7-18); BUN/Creat Ratio 10.1 RATIO (10-20); Calcium,Total 7.8 mg/dL (8.5-10.1); Chloride 103 mmol/L (98-107); Creatinine, Serum 0.79 mg/dL (0.70-1.30); EST Glomerular Filtration Rate 105 mL/min (>60); Est Glom Filt Rate - Afr Amer 127 mL/min (>60); Estimated Creatinine Clearance 76.35 ml/min; Glucose 101 mg/dL (74-106); Potassium 3.6 mmol/L (3.5-5.1); Sodium Level 131 mmol/L (136-145)
[2024-04-22 07:50] VITALS: BP 130/95; PULSE 71; RESP 14; TEMP 36.7; O2SAT 100
--- NOTE | 2024-04-22 08:43 | PCM.PN.SRG ---
Subjective Subjective Patient was evaluated resting comfortably in bed. He notes difficulty completing his bowel prep over night and was only able to complete 1/3 of the prep. Scope was canceled for this morning. He denies nausea, vomiting, abdominal pain. Objective Data Objective Data Vital Signs: Vital Signs Temp Pulse Resp BP Pulse Ox O2 Del Method 98.1 F 71 14 130/95 H 100 Room Air 04/22/24 07:50 04/22/24 07:50 04/22/24 07:50 04/22/24 07:50 04/22/24 07:50 04/22/24 07:50 Oxygen Delivery Method Room Air Weight: 124 lb 5.451 oz Body Mass Index (BMI) 18.3 Intake & Output: Intake and Output for Last 24 Hours 04/20/24 04/21/24 04/22/24 23:59 23:59 23:59 Intake Total 361 / 961 750 / 750 Balance 361 / 961 750 / 750 Lab / Micro Data 04/22/24 05:38 04/22/24 05:38 Labs: Laboratory Results - last 24 hr 04/21/24 12:30: WBC 4.8, RBC 1.78 L, Hgb 5.6 L*, Hct 16.2 L, MCV 91.0, MCH 31.5, MCHC 34.6, RDW Std Deviation 43.2, RDW Coeff of Adiel 13.2, Plt Count 201, MPV 9.0, Immature Gran % (Auto) 1.300 H, Neut % (Auto) 74.1 H, Lymph % (Auto) 15.6 L, Roberts % (Auto) 4.0, Eos % (Auto) 4.8, Baso % (Auto) 0.2, Absolute Neuts (auto) 3.5, Absolute Lymphs (auto) 0.74 L, Nucleated RBC % 0, Differential Comment COMMENT, Diff Path Review January, Sodium 126 L, Potassium 3.5, Chloride 95 L, Carbon Dioxide 19.0 L, Anion Gap 12, BUN 10, Creatinine 0.98, Estim Creat Clear Calc 77.22, Est GFR (MDRD) Af Amer 100, Est GFR (MDRD) Non-Af 82, BUN/Creatinine Ratio 10.2, Glucose 117 H, Calcium 8.6, Total Bilirubin 0.60, AST 23, ALT 13 L, Alkaline Phosphatase 143 H, Total Protein 7.9, Albumin 3.4, Globulin 4.5 H, Albumin/Globulin Ratio 0.8 L, Blood Type A POSITIVE, Antibody Screen NEGATIVE, Crossmatch See Detail 04/21/24 23:53: Hgb 7.2 L, Hct 20.2 L 04/22/24 05:38: WBC 3.6 L, RBC 2.34 L, Hgb 7.2 L, Hct 20.4 L, MCV 87.2, MCH 30.8, MCHC 35.3, RDW Std Deviation 47.1 H, RDW Coeff of Adiel 14.9 H, Plt Count 138 L, MPV 9.3, Immature Gran % (Auto) 1.700 H, Neut % (Auto) 66.0, Lymph % (Auto) 20.7, Roberts % (Auto) 7.4, Eos % (Auto) 3.6, Baso % (Auto) 0.6, Absolute Neuts (auto) 2.4, Absolute Lymphs (auto) 0.75 L, Nucleated RBC % 0, PT 13.9, INR 1.1, APTT 37.8 H, Sodium 131 L, Potassium 3.6, Chloride 103, Carbon Dioxide 20.0 L, Anion Gap 8, BUN 8, Creatinine 0.79, Estim Creat Clear Calc 76.35, Est GFR (MDRD) Af Amer 127, Est GFR (MDRD) Non-Af 105, BUN/Creatinine Ratio 10.1, Glucose 101, Calcium 7.8 L Radiography Diagnostic Testing: Radiology Impression Abdomen/Pelvis CT 04/21/24 12:11 IMPRESSION: Thickening and possible mass lesion in the proximal portion of the transverse colon just distal to the hepatic flexure. A neoplastic process should be ruled out. Diffuse gastric wall thickening although the stomach is not completely distended. 1.65 cm cyst in the tail portion of the pancreas. Electronically Signed: Cosme Rust MD at 13:56 EDT , Chest X-Ray 04/21/24 12:11 IMPRESSION: Hyperinflation and COPD. Healed right rib fractures. Electronically Signed: Cosme Rust MD at 13:35 EDT , Physical Exam GI GI Narrative: Abdomen- soft, nontender. Assessment & Plan Assessment/Plan (1) Colonic mass: (2) Anemia: QUALIFIERS: Anemia type: unspecified type Qualified Code(s): D64.9 - Anemia, unspecified PLAN: Plan I am seeing this patient in conjunction with Dr. Chowdhury. He has independently evaluated this patient. Patient will start Golytely bowel prep this morning Will call around noon for a progress report and potential need for an enema if possible Labs reviewed. Hgb is stable at this time Patient rescheduled for upper and lower scope tomorrow with Dr. Chowdhury around 0930 We will continue to monitor this patient Charges/Coding Visit Charges Inpatient E&M: 63711 [facility] L1
[2024-04-22 10:00] VITALS: O2SAT 98
[2024-04-22] MEDS: 0.9% Normal Saline (1000mL) 1,000 ML 75 ML IV ×2 (10:04→21:11)
[2024-04-22] MEDS: Pantoprazole Sodium 40 MG in 0.9% Normal Saline (100mL MB+) 100 ML 330 MG IV ×2 (10:04→21:08)
--- NOTE | 2024-04-22 11:30 | WOUNDNOTE ---
wound photo: left buttock
--- NOTE | 2024-04-22 13:00 | CASEMGMT ---
Addendum entered by Lorraine Wyman 04/22/24 16:09: Strata: 1 Original Note: RN CM LEGAL SUMMER INTERN CM to room to meet with patient for initial transition planning/care coordination assessment. RN KRISTOPHER introduced self and role at [facility].? Pt voices understanding and consents to assessment at this time.? Pt resting in bed in no distress at this time.? Pt is A/O at this time and answers all questions appropriately.?? Care providers, pharmacy, and demographics verified/updated at this time. PCP: Dr Maecdo Specialists: none Preferred Pharmacy: [facility] Insurance: [employer] Prescription Benefit:? yes Living Will/HPOA:?Pt does not currently have LW/HCPOA and would like to complete. LNOK: Pt's Abril waters, is only contact listed. Pt has one adult son, Clive Caldwell, age 34, who he is estranged from. Pt is single and parents are . He has one living sister that he has not spoke to for years. Living Arrangements: Lives w/a roommate in 2-story home w/3 steps to enter and rails on both sides. His roommate stays upstairs and pt stays on the main floor. Pt states he is independent w/ADL's and IADL's. He states he has not been back to work since his injury in Aug, 2023. Transportation: Pt states drives. He states he will be able to find someone to take him home @ discharge. DME: ?Pt states he made a make-shift/homemade seat in the shower for his roommate that he now uses. He has a cane, crutches, and walker that he uses. He denies need for other DME. HHC/SNF: No hx of SNF. He has had [facility] HHC in the past. He states he wishes to discharge home and declines HHC or OP therapy. Pt wishes to return home and states has no concerns with going home at time of discharge.? CM?to follow for any further discharge planning/needs.? Pt voices no further concerns/needs at this time.? PLAN: ?Home Candi MARTINEZ RN, CM
[2024-04-22 14:45] VITALS: BP 136/93; PULSE 63; RESP 14; TEMP 36.3; O2SAT 100
--- NOTE | 2024-04-22 14:57 | PN.HOSP_ITS ---
Subjective Subjective Doing well had difficulty with the prep yesterday but is working through it today on a clear liquid diet Objective Data Objective Data Vital Signs: Vital Signs Temp Pulse Resp BP Pulse Ox O2 Del Method 97.4 F L 63 14 136/93 H 100 Room Air 04/22/24 14:45 04/22/24 14:45 04/22/24 14:45 04/22/24 14:45 04/22/24 14:45 04/22/24 14:45 Oxygen Delivery Method Room Air Weight: 124 lb 5.451 oz Body Mass Index (BMI) 18.3 Intake & Output: Intake and Output for Last 24 Hours 04/21/24 04/22/24 04/23/24 03:59 03:59 03:59 Intake Total 961 / 961 1125 / 1125 Balance 961 / 961 1125 / 1125 Medical Nutrition Assessment Dietitian: Malnutrition Criteria Met Start: 04/22/24 11:22 Freq: Status: Active Protocol: Document 04/22/24 11:22 ELDON (Rec: 04/22/24 11:22 [id number]) Nutrition Malnutrition Evidence of Malnutrition Exists Yes Malnutrition (severe): Chronic Evidenced By Suboptimal Energy Intake ( Severe),Weight Loss (Severe) Intake Problem Increased Nutrient Needs (specify) Etiology calories/protein related to increased demand for healing Signs/Symptoms as evidence by pressure ulcer on coccyx Status Active Problem Clinical Problem Chronic Disease or Condition Related Malnutrition Etiology severe related to suboptimal appetite and suspected colon cancer Signs/Symptoms as evidenced by PO intakes meeting <75% of estimated nutrition needs for 3 months and 51.6lb loss (29%) weight loss in 8 months Status Active Problem Recommendation Dietitian Recommendations/Changes ADAT to Regular when medically able to optimize oral intakes . Recommend 120mL Ensure clear 4x on clear liquid diet and 120mL ensure compact TID > clear liquid diet to provide supplemental energy. Recommend Mendoza BID to promote wound healing once diet has advanced. Lab / Micro Data 04/22/24 05:38 04/22/24 05:38 Labs: Laboratory Results - last 24 hr 04/21/24 12:30: Blood Type A POSITIVE, Antibody Screen NEGATIVE, Crossmatch See Detail 04/21/24 23:53: Hgb 7.2 L, Hct 20.2 L 04/22/24 05:38: WBC 3.6 L, RBC 2.34 L, Hgb 7.2 L, Hct 20.4 L, MCV 87.2, MCH 30.8, MCHC 35.3, RDW Std Deviation 47.1 H, RDW Coeff of Adiel 14.9 H, Plt Count 138 L, MPV 9.3, Immature Gran % (Auto) 1.700 H, Neut % (Auto) 66.0, Lymph % (Auto) 20.7, [facility] % (Auto) 7.4, Eos % (Auto) 3.6, Baso % (Auto) 0.6, Absolute Neuts (auto) 2.4, Absolute Lymphs (auto) 0.75 L, Nucleated RBC % 0, PT 13.9, INR 1.1, APTT 37.8 H, Sodium 131 L, Potassium 3.6, Chloride 103, Carbon Dioxide 20.0 L, Anion Gap 8, BUN 8, Creatinine 0.79, Estim Creat Clear Calc 76.35, Est GFR (MDRD) Af Amer 127, Est GFR (MDRD) Non-Af 105, BUN/Creatinine Ratio 10.1, Glucose 101, Calcium 7.8 L Physical Exam Narrative General: Alert, Oriented x3, Cooperative, No apparent distress HEENT: Atraumatic, PERRLA, EOMI, Normocephalic Oral: Moist Mucosa Neck: Supple, No JVD Lungs: Clear to auscultation, Normal air movement, No rhonchi, No wheeze, No rales Cardiovascular: Regular rate, Regular Rhythm, Normal S1, Normal S2, No murmurs Abdomen: Soft, Non Tender, Non-Distended, No Hepato-splenomegaly Extremities: No edema, Capillary Refill Less than 3 Seconds Skin: No rashes, No breakdown Musculoskeletal: No Tenderness to Palpation of Joints or Extremities Neurological: No focal neurological deficits, Motor Exam 5/5 strength throughout, Sensory exam intact to light touch and pain Psych/Mental Status: Normal Affect, Appropriate Assessment & Plan Assessment/Plan (1) Anemia: QUALIFIERS: Anemia type: unspecified type Qualified Code(s): D 64.9 - Anemia, unspecified PLAN: Plan 1. Anemia of unknown etiology ? Probable GI bleed in nature, CT scan demonstrated proximal transverse mass with gastric thickening ? Plan for colonoscopy and EGD ? Appreciate general surgery's assistance ? Continue with prep and clear liquid diet ? Continue with PPI DVT: SCDs Charges/Coding Visit Charges Inpatient E&M: 19716 Subs Hosp L2
--- NOTE | 2024-04-22 15:43 | CASEMGMT ---
SW was informed patient would like to do advance directives. SW met with patient. Introduced self and role at [facility]. Patient confirmed he would like to do documents. Patient would like to name his friend Abril Suarez as his Healthcare Power of Prescription Clerk Lenses. SW started to complete documents with patient. SW went back to patient's room and the physician was seeing patient. SW will go back to patient's room tomorrow and have him sign the documents. Patient has designated his friend Abril Suarez [phone] as his Healthcare Power of Prescription Clerk Lenses. Mey Westfall SIPHON OPERATORTiara GARCIA
[2024-04-22] MEDS: Electrolyte Solution/Peg's 4000 ML PO (18:48)
[2024-04-22 21:07] VITALS: BP 135/87; PULSE 67; RESP 17; TEMP 36.4; O2SAT 100
[2024-04-22] MEDS: Ensure Clear 120 ML Liquid PO (21:08)
[2024-04-22] MEDS: Mirtazapine 15 MG Tablet 7.5 MG PO (21:08)
[2024-04-22] MEDS: 0.9% Saline Lock 10 ML Syringe IV (21:08)
[2024-04-23] VITALS (10 sets, daily range): BP systolic 102–137; BP diastolic 48–88; PULSE 69–91; RESP 14–18; TEMP 36.4–36.6; O2SAT 92–100; BMI 18.3
[2024-04-23 06:50] LABS: Absolute Lymphocyte Count 0.85 X10^3/uL (0.83-4.51); Absolute Neutrophil Count 2.2 X10^3/uL (2.0-7.7); Basophil# 0.02 X10^3/uL; Basophil% 0.6 % (0-1); Eosinophil# 0.15 X10^3/uL; Eosinophils% 4.2 % (0-5); Hematocrit 20.3 % (40-54); Hemoglobin 7.1 g/dL (13.0-16.5); Lymphocyte # 0.85 X10^3/ul (0.83-4.51); Lymphocyte % 23.9 % (19-41); Mean Corpuscular Hgb 30.7 pg (27.0-32.0); Mean Corpuscular Volume 87.9 fL (80-94); Mean Platelet Vol. 8.7 fl (6.2-12.0); Monocyte# 0.26 X10^3/uL; Monocyte% 7.3 % (0-10); NRBC Flagged by Analyzer 0 % (0-5); Neutrophil # 2.21 X10^3/uL (2.7-7.7); Neutrophil % 62.3 % (47-70); Platelet Count 133 K/mm3 (150-450); RBC Distribution Width CV 15.8 % (11.6-14.6); Red Blood Count 2.31 M/mm3 (4.6-6.2); White Blood Count 3.6 K/mm3 (4.4-11.0)
[2024-04-23 07:22] LABS: Anion Gap 8 (5-15); BUN 5 mg/dL (7-18); BUN/Creat Ratio 6.8 RATIO (10-20); Chloride 104 mmol/L (98-107); Creatinine, Serum 0.73 mg/dL (0.70-1.30); EST Glomerular Filtration Rate 115 mL/min (>60); Est Glom Filt Rate - Afr Amer 139 mL/min (>60); Estimated Creatinine Clearance 82.63 ml/min; Glucose 91 mg/dL (74-106); Potassium 3.3 mmol/L (3.5-5.1); Sodium Level 133 mmol/L (136-145)
[2024-04-23 08:17] LABS: Pathologist Review Reviewed
--- NOTE | 2024-04-23 08:25 | PRE.ANES_ITS ---
ASA Classification* ASA Classification ASA Classification: 2 Assessment & Plan Anesthesia* Anesthesia Assessment Anesthesia Assessment: Discussed sedation and/or anesthesia options, risks, benefits, and alternatives with patient/parents/legal guardian/POA. Questions invited. The patient/parents/legal guardian/POA seems to understand and agrees to proceed with anesthesia plan. Reviewed the physical assessment, medical history, allergy history and patient home medications list prior to surgery/procedure/anesthetic and documented any changes. Performed airway and anesthesia risk assessments. Anesthesia Type Anesthesia Type: MAC (see written pre anesthesia record for full assessment) Anesthesia Focused Assessment* Temperature: 97.5 F Pulse Rate: 69 Blood Pressure: 134/88 Respiratory Rate: 17 Pulse Ox: 99 Airway Assessment Mouth opens: >3 cm Mallampati Score: II Focused Labs Anesthesia Preop lab: CBC WBC 3.6 K/mm3 (4.4-11.0) L 04/23/24 06:29 RBC 2.31 M/mm3 (4.6-6.2) L 04/23/24 06:29 Hgb 7.1 g/dL (13.0-16.5) L 04/23/24 06:29 Hct 20.3 % (40-54) L 04/23/24 06:29 Plt Count 133 K/mm3 (150-450) L 04/23/24 06:29 CHEMISTRY Potassium 3.3 mmol/L (3.5-5.1) L 04/23/24 06:29 Sodium 133 mmol/L (136-145) L 04/23/24 06:29 BUN 5 mg/dL (7-18) L 04/23/24 06:29 Creatinine 0.73 mg/dL (0.70-1.30) 04/23/24 06:29 Glucose 91 mg/dL (74-106) 04/23/24 06:29 TSH 3.09 uIU/mL (0.358-3.74) 04/20/24 16:01 COAG PT 13.9 SECONDS (11.7-14.9) 04/22/24 05:38 Pre-Assessment Diagnosis/Proposed Procedure Planned Operative Procedure(s): colon/egd Anesthesia History 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 When Was Last Pacemaker Check QUESTION #4 FULL TEXT: You/Your Family Experience fever (hyperthermia) with Anesthesia Last Oral Intake Last Oral intake: Last Oral Intake NPO since 00:00 04/23/24 05:01 Meds taken in AM with sips of No 04/23/24 05:01 water? Meds patient instructed to take am of surgery PONV PONV - seismometer operator: PONV - seismometer operator Female HX of Motion Sickness HX of N/V After Surgery Non-Smoker Duration of Surgery greater than 60 minutes Number of Risk Factors PONV Score Height & Weight Height & Weight: Anesthesia: Height & Weight Height 5 ft 9 in 04/23/24 05:01 Weight: 56.4 kg 04/23/24 05:01 Body Mass Index (BMI) 18.3 04/23/24 05:01 Respiratory Assessment Respiratory Assessment - seismometer operator: Respiratory Tract Infection Hx - seismometer operator Hx Respiratory Tract Infection No 04/23/24 05:00 STOP Sleep Apnea STOP Sleep Apnea - seismometer operator: STOP Sleep Apnea - seismometer operator Hx Hypertension No 04/21/24 17:01 Hx Sleep Apnea No 04/21/24 17:01 CPAP No 08/17/23 13:47 BIPAP Do you snore loudly (louder No 04/21/24 17:01 than talking or can be heard Do you often feel tired/ No 04/21/24 17:01 fatigued/ sleepy during daytime? Has anyone observed you stop No 04/21/24 17:01 breathing during sleep? STOP Results Negative 04/21/24 17:01 QUESTION #5 FULL TEXT : Do you snore loudly (louder than talking or can be heard through closed doors)? 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 Specify any problems Hx of Preganancy in last 3 N/A 04/21/24 17:01 Months Nurse Filling Out Transfusion JSNOW 04/21/24 17:01 & Questions: Date: 04/21/24 04/21/24 17:01 Time: 17:05 04/21/24 17:01 Patient unable to answer at this time (ie. confused, unrespo /Reproduction History /Reproductive History - seismometer operator: /Reproductive Hx- seismometer operator Hx Now No 04/23/24 05:00 Gestational Age (in weeks): EDC: Hx Hx Para Hx Section SAB No 04/23/24 05:00 Active Medications Active Medications: Current Medications Generic Name Dose Route Start Last Admin Trade Name Freq PRN Reason Stop Dose Admin Acetaminophen 650 mg 04/21/24 16:35 Acetaminophen 325 Mg Tablet PO Q6H PRN PRN Pain 1-10 Or Fever >100.7 Sodium Chloride 1,000 mls @ 75 mls/hr 04/21/24 16:35 04/22/24 21:11 IV 75 mls/hr .[id number] LA Administration Pantoprazole Sodium 40 mg/ 110 mls @ 330 mls/hr 04/21/24 22:00 04/22/24 21:40 Sodium Chloride IV Infused Q12 LA Infusion Mirtazapine 7.5 mg 04/21/24 22:00 04/22/24 21:08 Mirtazapine 15 Mg Tablet PO 7.5 mg QHS LA Administration Nutritional Formula (Lactose Free) 120 ml 04/21/24 22:00 04/22/24 21:08 Ensure Clear 120 Ml Liquid PO 120 ml 4X/DAY LA Administration Ondansetron HCl 4 mg 04/21/24 16:35 Ondansetron 4 Mg/2 Ml Vial IV Q8H PRN PRN NAUSEA/VOMITING Oxycodone HCl 5 - 10 mg 04/21/24 16:35 Oxycodone 5 Mg Tablet PO Q4H PRN PRN Pain Score 4-10 Sodium Chloride 10 - 40 ml 04/21/24 17:19 04/22/24 21:08 0.9% Saline Lock 10 Ml Syringe IV 10 ml UD PRN Administration SALINE FLUSH [facility] Medical History Closed fracture of right hip Home Medications ?Medication ?Instructions ?Recorded ?Last Taken ?Type mirtazapine 7.5 mg tablet 7.5 mg PO QHS 04/21/24 Unknown History Allergy/AdvReac Type Severity Reaction Status Date / Time No Known Allergies Allergy Verified 08/16/23 05:09 Surgical History S/P total hip arthroplasty Hx of neck surgery Social History Smoking Status: Current some day smoker tobacco type: cigarettes alcohol intake: current alcohol intake frequency: a few times a week substance use type: does not use Review of Systems (Anesthesia) ROS Narrative System reviewed and no additional complaints, except as documented.
--- NOTE | 2024-04-23 09:23 | PN.HOSP_ITS ---
Subjective Subjective Doing well, no issues overnight Objective Data Objective Data Vital Signs: Vital Signs Temp Pulse Resp BP Pulse Ox O2 Del Method 97.5 F L 69 17 134/88 H 99 Room Air 04/23/24 08:25 04/23/24 08:25 04/23/24 08:25 04/23/24 08:25 04/23/24 08:25 04/23/24 03:16 Oxygen Delivery Method Room Air Weight: 124 lb 5.451 oz Body Mass Index (BMI) 18.3 Intake & Output: Intake and Output for Last 24 Hours 04/22/24 04/23/24 04/24/24 03:59 03:59 03:59 Intake Total 961 / 961 2068.75 / 2068.75 Output Total 300 / 300 Balance 961 / 961 1768.75 / 1768.75 Medical Nutrition Assessment Dietitian: Malnutrition Criteria Met Start: 04/22/24 11:22 Freq: Status: Active Protocol: Document 04/22/24 11:22 (Rec: 04/22/24 11:22 [id number]) Nutrition Malnutrition Evidence of Malnutrition Exists Yes Malnutrition (severe): Chronic Evidenced By Suboptimal Energy Intake ( Severe),Weight Loss (Severe) Intake Problem Increased Nutrient Needs (specify) Etiology calories/protein related to increased demand for healing Signs/Symptoms as evidence by pressure ulcer on coccyx Status Active Problem Clinical Problem Chronic Disease or Condition Related Malnutrition Etiology severe related to suboptimal appetite and suspected colon cancer Signs/Symptoms as evidenced by PO intakes meeting <75% of estimated nutrition needs for 3 months and 51.6lb loss (29%) weight loss in 8 months Status Active Problem Recommendation Dietitian Recommendations/Changes ADAT to Regular when medically able to optimize oral intakes . Recommend 120mL Ensure clear 4x on clear liquid diet and 120mL ensure compact TID > clear liquid diet to provide supplemental energy. Recommend Mendoza BID to promote wound healing once diet has advanced. Lab / Micro Data 04/23/24 06:29 04/23/24 06:29 Labs: Laboratory Results - last 24 hr 04/21/24 12:30: Diff Path Review Reviewed 04/23/24 06:29: WBC 3.6 L, RBC 2.31 L, Hgb 7.1 L, Hct 20.3 L, MCV 87.9, MCH 30.7, MCHC 35.0, RDW Std Deviation 50.0 H, RDW Coeff of Adiel 15.8 H, Plt Count 133 L, MPV 8.7, Immature Gran % (Auto) 1.700 H, Neut % (Auto) 62.3, Lymph % (Auto) 23.9, [place] % (Auto) 7.3, Eos % (Auto) 4.2, Baso % (Auto) 0.6, Absolute Neuts (auto) 2.2, Absolute Lymphs (auto) 0.85, Nucleated RBC % 0, Sodium 133 L, Potassium 3.3 L, Chloride 104, Carbon Dioxide 21.0, Anion Gap 8, BUN 5 L, Creatinine 0.73, Estim Creat Clear Calc 82.63, Est GFR (MDRD) Af Amer 139, Est GFR (MDRD) Non-Af 115, BUN/Creatinine Ratio 6.8 L, Glucose 91, Calcium 8.0 L Physical Exam Narrative General: Alert, Oriented x3, Cooperative, No apparent distress HEENT: Atraumatic, PERRLA, EOMI, Normocephalic Oral: Moist Mucosa Neck: Supple, No JVD Lungs: Diminished, Normal air movement, No rhonchi, No wheeze, No rales Cardiovascular: Regular rate, Regular Rhythm, Normal S1, Normal S2, No murmurs Abdomen: Soft, Non Tender, Non-Distended, No Hepato-splenomegaly Extremities: No edema, Capillary Refill Less than 3 Seconds Skin: No rashes, No breakdown Musculoskeletal: No Tenderness to Palpation of Joints or Extremities Neurological: No focal neurological deficits, Motor Exam 5/5 strength throughout, Sensory exam intact to light touch and pain Psych/Mental Status: Normal Affect, Appropriate Assessment & Plan Assessment/Plan (1) Anemia: QUALIFIERS: Anemia type: unspecified type Qualified Code(s): D 64.9 - Anemia, unspecified PLAN: Plan 1. Anemia of unknown etiology ? Probable GI bleed in nature, CT scan demonstrated proximal transverse mass with gastric thickening ? Plan for colonoscopy and EGD today ? Appreciate general surgery's assistance ? Continue with prep and clear liquid diet ? Continue with PPI ? Hemoglobin is down to 7.1, will continue to monitor and recheck this afternoon and need further transfusions DVT: SCDs Charges/Coding Visit Charges Inpatient E&M: 04820 Subs Hosp L2
--- NOTE | 2024-04-23 09:30 | IMM_PTH ---
PATIENT: KIM ESCALONA LOC: [facility] U#:[id number] AGE/SX: 64/M ROOM: [facility] RE04/21/[address]: Dr. Lavell Levine MD : 1960 BED: 1 DIS: 04/26/2024 SPEC #: [id number] RECD: 04/26/24 08:45 STATUS: SOUT REQ #: [id number] ALYSIA: 04/23/24 09:[address]: Tristan Chowdhury DEPT: IMMUNOHISTOCHEMISTRY RECD BY: Aj Antonio ENTERED: 04/26/24 08:45 SP TYPE: IMMUNO OTHR DR: DO Dr. Lavell Shelley MD Dr. Tai Chi Kwok, MD Tissues: A - Gastric mucous membrane Procedures: H Pylori (initial) Comments: @ Ordering doctor for H.PYLORI edited from to @ by DWIGHT at 04/26/24 0846 @ Submitting doctor edited from to @ by DWIGHT at 04/26/2446 PHYSICIAN & INSTITUTION [place] [id number] SPECIMEN INFORMATION: Tissue Source: A- Antrum biopsy Clinical Info: Anemia, colonic mass Specimen Number: [id number] CPT code: 86503 METHODOLOGY: Deparaffinized sections of prefer/formalin-fixed tissue or PAP/DQ stained slides are incubated with monoclonal/polyclonal antibodies/oligonucleotide probes. Localization is made via biotin free immunoperoxidase method. Appropriate controls are performed and reacted as expected. Results on target cell population are indicated in the following table: RESULTS: ANTIBODY / CLONE RESULT Block A H Pylori (polyclonal) negative These tests were developed and their performance characteristics determined by [facility]. They may not have been cleared or approved by the U.S. Food and Drug Administration. The FDA has determined that such clearance or approval is not necessary. The above immunohistochemical/dualISH markers are ordered and reviewed by the Pathologist. INTERPRETATION: A. Antrum, biopsy: Negative for Helicobacter pylori organisms. ELIZABETH/ 04/27/2024
--- NOTE | 2024-04-23 09:30 | EGD_PTH ---
PATIENT: KIM ESCALONA LOC: [facility] U#:[id number] AGE/SX: 64/M ROOM: [facility] RE04/21/[address]: Dr. Lavell Levine MD : 1960 BED: 1 DIS: 04/26/2024 SPEC #: [id number] RECD: 04/23/24 13:36 STATUS: ROSA RENguyen #: [id number] ALYSIA: 04/23/24 09:[address]: Tristan Chowdhury DEPT: SURGICAL PATHOLOGY RECD BY: Diana Nolan ENTERED: 04/26/24 09:40 SP TYPE: EGD BIOPSY OTHR DR: DO Dr. Lavell Shelley MD Dr. Tai Chi Kwok, MD Tissues: A - Gastric mucous membrane B - Esophagus, NOS C - Gastric mucous membrane D - COLON BIOPSY Procedures: Special Stain Group I Surgery Specimen Level IV Alcian Blue/PAS (control) Comments: @ Ordering doctor for SSI edited from to @ by DWIGHT at 04/26/24 0945 @ Ordering doctor for SUIV edited from to @ by DWIGHT at 04/26/24 0945 @ Ordering doctor for AB-PAS edited from to @ by DWIGHT at 04/26/24 0945 @ Submitting doctor edited from to @ by DWIGHT at 04/26/24 0945 HEADER OPERATION: Colonoscopy, EGD with biopsy and hemostasis PRE-OP DIAGNOSIS: Anemia, colonic mass TISSUE SUBMITTED: A- Antral biopsy, B- Gastroesophageal junction biopsy, C- Gastric body/greater curvature with GE junction included, biopsy D- Appendiceal orifice MICROSCOPIC DIAGNOSIS A. Antral biopsy: Mild gastritis. See microscopic description and comment. B. Gastroesophageal junction, biopsy: Fragments of gastroesophageal mucosa with chronic inflammation. Intestinal metaplasia (goblet cell metaplasia) not identified. See comment. C. Gastric body/greater curvature with GE junction included, biopsy: Fragments of gastric mucosa with mild chronic inflammation. Intestinal metaplasia (goblet cell metaplasia) not identified. See comment. D. Appendiceal orifice, biopsy: A fragment of colonic mucosa, no pathologic diagnosis. ABEL/ 04/27/2024 COMMENT A. The results of immunohistochemistry for Helicobacter pylori will be reported separately ([id number]). B, C. Alcian blue/PAS stain with matched control is used in the evaluation of the specimens. MICROSCOPIC DESCRIPTION Slides are reviewed. A. The specimen shows fragments of gastric mucosa with chronic inflammatory cell infiltrates in the lamina propria consisting of lymphocytes and plasma cells, consistent with mild chronic gastritis. GROSS DESCRIPTION A. Received in fixative is one container labeled with the patient's name and designated Antrum biopsy. The specimen consists of one irregular fragment of light rojas soft tissue that measures 0.3 x 0.3 x 0.1 cm. The specimen is totally submitted in one cassette. B. Received in fixative is one container labeled with the patient's name and designated GE junction biopsy. The specimen consists of two irregular fragments of light rojas soft tissue that in aggregate measure 0.4 x 0.2 x 0.1 cm. The specimen is totally submitted in one cassette. C. Received in fixative is one container labeled with the patient's name and designated Gastric body/greater curvature biopsy with GE junction included. The specimen consists of multiple irregular fragments of light rojas soft tissue that in aggregate measure 0.6 x 0.5 x 0.1 cm. The specimen is totally submitted in one cassette. D. Received in fixative is one container labeled with the patient's name and designated Appendiceal orifice. The specimen consists of one irregular fragment of light rojas soft tissue that measures 0.4 x 0.4 x 0.1 cm. The specimen is totally submitted in one cassette. SJ/mr 04/26/2024 TC:3 CPT:11738a6,20896k4
--- NOTE | 2024-04-23 11:17 | OP.CCLET_ITS ---
04/23/2024 Emanuel Macedo MD [address] [place] [address] Re : Upper GI endoscopy procedure for Jerry Caldwell Dear Dr. Macedo This procedure was performed on Tuesday, April 23, 2024. My impressions and recommendations are as follows: Impressions : - No gross lesions in the duodenal bulb, in the first portion of the duodenum and in the second portion of the duodenum. No specimens collected. - Gastritis. Biopsied. - Small hiatal hernia. No specimens collected. - Z-line regular, 38 cm from the incisors. Biopsied. - The examination was otherwise normal. Recommendations : - Discharge patient to home [Means]. - Return [facility] care. - Clear liquid diet today. - Use sucralfate tablets 1 gram PO BID today. - Await pathology results. - The findings and recommendations were discussed with the patient's primary physician. - No aspirin, ibuprofen, naproxen, or other non-steroidal anti-inflammatory drugs for 2 days after biopsy. My findings are described in the full procedure note, which is enclosed. If I can be of further assistance, please feel free to contact me at Doctor phone number(s): , Work: . Sincerely, Tristan Chodwhury MD 04/23/2024 11:16:41 AM This report has been signed electronically.
--- NOTE | 2024-04-23 11:17 | OP.EGD_ITS ---
Patient Name: Jerry Caldwell Procedure Date: 04/23/2024 9:30 AM Date of : 1960 Age: 64 Procedure: Upper GI endoscopy Indications: Iron deficiency anemia secondary to chronic blood loss Providers: Tristan Chowdhury MD Medicines: See the Anesthesia note for documentation of the administered medications Patient Profile: Refer to note in patient chart for documentation of history and physical. Complications: No immediate complications. Estimated blood loss: Minimal. Procedure: Pre-Anesthesia Assessment: - The heart rate, respiratory rate, oxygen saturations, blood pressure, adequacy of pulmonary ventilation, and response to care were monitored throughout the procedure. After obtaining informed consent, the endoscope was passed under direct vision. Throughout the procedure, the patient's blood pressure, pulse, and oxygen saturations were monitored continuously. The Endoscope was introduced through the mouth, and advanced to the second part of duodenum. The upper GI endoscopy was accomplished without difficulty. The patient tolerated the procedure well. Scope In: 9:53:27 AM Scope Out: 10:28:06 AM Total Procedure Duration Time 0 hours 34 minutes 39 seconds Findings: No gross lesions were noted in the duodenal bulb, in the first portion of the duodenum and in the second portion of the duodenum. No biopsies or other specimens were collected for this exam. Diffuse mild inflammation characterized by erythema and friability was found in the entire examined stomach. Biopsies were taken with a cold forceps for histology. Estimated blood loss was minimal. Biopsies were taken with a cold forceps for histology. Biopsies were taken with a cold forceps for Helicobacter pylori testing. Estimated blood loss was minimal. Estimated blood loss: 3 mL requiring treatment with coagulation. A small hiatal hernia was present. No biopsies or other specimens were collected for this exam. The Z-line was regular and was found 38 cm from the incisors. Biopsies were taken with a cold forceps for histology. Estimated blood loss was minimal. The exam was otherwise without abnormality. Impression: - No gross lesions in the duodenal bulb, in the first portion of the duodenum and in the second portion of the duodenum. No specimens collected. - Gastritis. Biopsied. - Small hiatal hernia. No specimens collected. - Z-line regular, 38 cm from the incisors. Biopsied. - The examination was otherwise normal. Recommendation: - Discharge patient to home [Means]. - [facility]. - Clear liquid diet today. - Use sucralfate tablets 1 gram PO BID today. - Await pathology results. - The findings and recommendations were discussed with the patient's primary physician. - No aspirin, ibuprofen, naproxen, or other non-steroidal anti-inflammatory drugs for 2 days after biopsy. Procedure Code(s): --- Professional --- 18636, Esophagogastroduodenoscopy, flexible, transoral; with biopsy, single or multiple Diagnosis Code(s): --- Professional --- K29.70, Gastritis, unspecified, without bleeding K44.9, Diaphragmatic hernia without obstruction or gangrene D50.0, Iron deficiency anemia secondary to blood loss (chronic) CPT copyright 2021 [employer]. All rights reserved. The codes documented in this report are preliminary and upon electrical timing device calibrator review may be revised to meet current compliance requirements. Tristan Chowdhury MD 04/23/2024 11:16:41 AM This report has been signed electronically. Number of Addenda: 0 Note Initiated On: 04/23/2024 9:30 AM
--- NOTE | 2024-04-23 11:20 | PCM.POST.ANE ---
Anesthesia: Postop Eval I Current Vital Signs Temperature: 97.5 F Pulse Rate: 78 Blood Pressure: 102/88 Respiratory Rate: 16 Pulse Ox: 96 Oxygen Delivery Method: Room Air Assessment Airway patent: Yes Spontaneous unlabored respirations: Yes Mental status: Awake nausea: No Vomiting: No Anesthesia Complication: No Fluid Hydration Crystalloid volume administer (ml): 800 Total IV fluid infused: 800 Progress Note Anesthesia document: Postop Eval 1 completed: Yes
[2024-04-23] MEDS: 0.9% Normal Saline (1000mL) 1,000 ML 75 ML IV (11:21)
--- NOTE | 2024-04-23 11:21 | OP.CCLET_ITS ---
04/23/2024 Emanuel Macedo MD [address] [place] [address] Re : Colonoscopy procedure for Jerry Caldwell Dear Dr. Macedo This procedure was performed on Tuesday, April 23, 2024. My impressions and recommendations are as follows: Impressions : - Nodular mucosa at the appendiceal orifice. Biopsied. - Tortuous colon. No specimens collected. - Diverticulosis in the sigmoid colon. No specimens collected. - The examination was otherwise normal on direct and retroflexion views. Recommendations : - Return [facility] to [facility] care. - Clear liquid diet today. - No aspirin, ibuprofen, naproxen, or other non-steroidal anti-inflammatory drugs for 2 days after biopsy. - Await pathology results. - Repeat colonoscopy date to be determined after pending pathology results are reviewed for surveillance based on pathology results. - The findings and recommendations were discussed with the patient's primary physician. My findings are described in the full procedure note, which is enclosed. If I can be of further assistance, please feel free to contact me at Doctor phone number(s): , Work: . Sincerely, Tristan Chowdhury MD 04/23/2024 11:20:58 AM This report has been signed electronically.
--- NOTE | 2024-04-23 11:21 | OP.COLON_ITS ---
Patient Name: Jerry Caldwell Procedure Date: 04/23/2024 10:29 AM Date of : 1960 Age: 64 Procedure: Colonoscopy Indications: Iron deficiency anemia secondary to chronic blood loss Providers: Tristan Chowdhury MD Medicines: See the Anesthesia note for documentation of the administered medications Patient Profile: Refer to note in patient chart for documentation of history and physical. Last Colonoscopy: 5 years ago. Complications: No immediate complications. Estimated blood loss: Minimal. Procedure: Pre-Anesthesia Assessment: - The heart rate, respiratory rate, oxygen saturations, blood pressure, adequacy of pulmonary ventilation, and response to care were monitored throughout the procedure. After I obtained informed consent, the scope was passed under direct vision. Throughout the procedure, the patient's blood pressure, pulse, and oxygen saturations were monitored continuously. The colonoscope was introduced through the anus and advanced to the cecum, identified by appendiceal orifice and ileocecal valve. The colonoscopy was somewhat difficult due to significant looping. Successful completion of the procedure was aided by applying abdominal pressure. The patient tolerated the procedure well. Scope In: 10:31:46 AM Scope Withdrawal Time 0 hours 14 minutes 16 seconds Scope Out: 11:03:50 AM Total Procedure Duration Time 0 hours 32 minutes 4 seconds Findings: The perianal and digital rectal examinations were normal. A localized area of mildly nodular mucosa was found at the appendiceal orifice. Biopsies were taken with a cold forceps for histology. Estimated blood loss was minimal. The transverse colon was moderately tortuous. No biopsies or other specimens were collected for this exam. A few medium-mouthed diverticula were found in the sigmoid colon. No biopsies or other specimens were collected for this exam. The exam was otherwise without abnormality on direct and retroflexion views. Impression: - Nodular mucosa at the appendiceal orifice. Biopsied. - Tortuous colon. No specimens collected. - Diverticulosis in the sigmoid colon. No specimens collected. - The examination was otherwise normal on direct and retroflexion views. Recommendation: - Return patient to [facility] care. - Clear liquid diet today. - No aspirin, ibuprofen, naproxen, or other non-steroidal anti-inflammatory drugs for 2 days after biopsy. - Await pathology results. - Repeat colonoscopy date to be determined after pending pathology results are reviewed for surveillance based on pathology results. - The findings and recommendations were discussed with the patient's primary physician. Procedure Code(s): --- Professional --- 43954, Colonoscopy, flexible; with biopsy, single or multiple Diagnosis Code(s): --- Professional --- K63.89, Other specified diseases of intestine D50.0, Iron deficiency anemia secondary to blood loss (chronic) K57.30, Diverticulosis of large intestine without perforation or abscess without bleeding Q43.8, Other specified congenital malformations of intestine CPT copyright 2021 [employer]. All rights reserved. The codes documented in this report are preliminary and upon invoice coder review may be revised to meet current compliance requirements. Tristan Chowdhury MD 04/23/2024 11:20:58 AM This report has been signed electronically. Number of Addenda: 0 Note Initiated On: 04/23/2024 10:29 AM
--- NOTE | 2024-04-23 11:34 | PCM.POSTANE2 ---
Anesthesia Postop Eval I Sum Postop Eval Completion status Anesthesia document: Postop Eval 1 completed: Yes Anesthesia Postop Eval I Summary Anesthesia Postop Eval I Summary: Anesthesia Postop Eval I: Assessment Summary Airway patent Yes 04/23/24 11:20 [email or web address] Spontaneous unlabored Yes 04/23/24 11:20 [email or web address] respirations Mental status Awake 04/23/24 11:20 [email or web address] nausea No 04/23/24 11:20 [email or web address] Vomiting No 04/23/24 11:20 [email or web address] Anesthesia Postop Eval I: Fluid Summary Crystalloid volume administer 800 04/23/24 11:20 [email or web address] (ml) Colloids volume administered ( ml) Blood Product volume administered (ml) Total IV fluid infused 800 04/23/24 11:20 [email or web address] Anesthesia Postop Eval I: Summary Notes Anesthesia Complication No 04/23/24 11:20 [email or web address] Anesthesia Complication Comment: Post-operative progress note Anesthesia: Postop Eval II Evaluation Mental status: Awake Pain Level: 0 nausea: No Vomiting: No
[2024-04-23] MEDS: Pantoprazole Sodium 40 MG in 0.9% Normal Saline (100mL MB+) 100 ML 330 MG IV ×2 (12:17→21:14)
--- NOTE | 2024-04-23 12:55 | PCM.PN.SRG ---
Subjective Subjective Patient seen and examined during AM rounds. He is found resting in the preoperative holding area. He confirms that he continues to have bowel function overnight and his last bowel movement was 530 this morning. He denies any abdominal pain. He states he is less anxious than before his last procedure. Objective Data Objective Data Vital Signs: Vital Signs Temp Pulse Resp BP Pulse Ox O2 Del Method 97.8 F 70 14 132/83 H 95 Room Air 04/23/24 12:00 04/23/24 12:00 04/23/24 12:00 04/23/24 12:00 04/23/24 12:00 04/23/24 12:26 Oxygen Delivery Method Room Air Weight: 124 lb 5.451 oz Body Mass Index (BMI) 18.3 Intake & Output: Intake and Output for Last 24 Hours 04/21/24 04/22/24 04/23/24 23:59 23:59 23:59 Intake Total 361 / 961 2668.75 / 2668.75 1000 / 1000 Output Total 300 / 300 Balance 361 / 961 2668.75 / 2668.75 700 / 700 Medical Nutrition Assessment Dietitian: Malnutrition Criteria Met Start: 04/22/24 11:22 Freq: Status: Active Protocol: Document 04/22/24 11:22 LO (Rec: 04/22/24 11:22 LO [id number]) Nutrition Malnutrition Evidence of Malnutrition Exists Yes Malnutrition (severe): Chronic Evidenced By Suboptimal Energy Intake ( Severe),Weight Loss (Severe) Intake Problem Increased Nutrient Needs (specify) Etiology calories/protein related to increased demand for healing Signs/Symptoms as evidence by pressure ulcer on coccyx Status Active Problem Clinical Problem Chronic Disease or Condition Related Malnutrition Etiology severe related to suboptimal appetite and suspected colon cancer Signs/Symptoms as evidenced by PO intakes meeting <75% of estimated nutrition needs for 3 months and 51.6lb loss (29%) weight loss in 8 months Status Active Problem Recommendation Dietitian Recommendations/Changes ADAT to Regular when medically able to optimize oral intakes . Recommend 120mL Ensure clear 4x on clear liquid diet and 120mL ensure compact TID > clear liquid diet to provide supplemental energy. Recommend Mendoza BID to promote wound healing once diet has advanced. Lab / Micro Data 04/23/24 06:29 04/23/24 06:29 Labs: Laboratory Results - last 24 hr 04/21/24 12:30: Diff Path Review Reviewed 04/23/24 06:29: WBC 3.6 L, RBC 2.31 L, Hgb 7.1 L, Hct 20.3 L, MCV 87.9, MCH 30.7, MCHC 35.0, RDW Std Deviation 50.0 H, RDW Coeff of Adiel 15.8 H, Plt Count 133 L, MPV 8.7, Immature Gran % (Auto) 1.700 H, Neut % (Auto) 62.3, Lymph % (Auto) 23.9, Randolph % (Auto) 7.3, Eos % (Auto) 4.2, Baso % (Auto) 0.6, Absolute Neuts (auto) 2.2, Absolute Lymphs (auto) 0.85, Nucleated RBC % 0, Sodium 133 L, Potassium 3.3 L, Chloride 104, Carbon Dioxide 21.0, Anion Gap 8, BUN 5 L, Creatinine 0.73, Estim Creat Clear Calc 82.63, Est GFR (MDRD) Af Amer 139, Est GFR (MDRD) Non-Af 115, BUN/Creatinine Ratio 6.8 L, Glucose 91, Calcium 8.0 L Physical Exam Const oriented x3 and no apparent distress Resp normal respiratory effort GI GI Narrative: Nondistended, soft, nontender to palpation x 4 quadrants Assessment & Plan Assessment/Plan (1) Colonic mass: (2) Anemia: QUALIFIERS: Anemia type: unspecified type Qualified Code(s): D64.9 - Anemia, unspecified PLAN: Plan Patient reports completion of his bowel prep. Proceed to endoscopy suite for planned upper and lower endoscopy. Further management plans pending the results of the scope. Tristan Chowdhury MD General Surgery Endocrine Surgery Pager: [facility] [address] [place] [address], [facility], [address] [place] [id number] Office: [phone] Charges/Coding Visit Charges Inpatient E&M: 45607 Subs Hosp L2
[2024-04-23] MEDS: Ensure Clear 120 ML Liquid PO ×2 (14:36→17:01)
--- NOTE | 2024-04-23 14:47 | CASEMGMT ---
SW met with patient for triggering SDOH for transportation. Patient declined any concerns with transportation, food, utilities, housing situation, and abuse. Mey Westfall MSW JOSE
--- NOTE | 2024-04-23 14:49 | CASEMGMT ---
SW completed advance directives with patient. Copies were made and given to patient along with originals. SW also placed a copy in patient's chart. Mey GARCIA
[2024-04-23 16:39] LABS: Ferritin 1236 ng/mL (26-388); Iron 222 ug/dL (65-175); Iron Binding Capacity,Total 234 ug/dL (250-450); PERCENT IRON SATURATION 94.9 % (15.0-55.0)
[2024-04-23] MEDS: Potassium Chloride Oral Tablet 20 MEQ 40 MEQ PO (16:59)
[2024-04-23 17:54] LABS: Hematocrit 20.8 % (40-54); Hemoglobin 7.1 g/dL (13.0-16.5)
[2024-04-23] MEDS: Mirtazapine 15 MG Tablet 7.5 MG PO (21:19)
[2024-04-24] VITALS (9 sets, daily range): BP systolic 120–145; BP diastolic 83–96; PULSE 65–79; RESP 10–21; TEMP 36.2–36.7; O2SAT 99–100
[2024-04-24] MEDS: 0.9% Normal Saline (1000mL) 1,000 ML 75 ML IV ×2 (05:02→21:17)
[2024-04-24 06:45] LABS: Absolute Neutrophil Count 2.7 X10^3/uL (2.0-7.7); Basophil# 0.01 X10^3/uL; Basophil% 0.2 % (0-1); Eosinophil# 0.18 X10^3/uL; Eosinophils% 4.3 % (0-5); Hematocrit 19.7 % (40-54); Hemoglobin 6.9 g/dL (13.0-16.5); Lymphocyte % 23.9 % (19-41); Mean Corpuscular Hgb 31.2 pg (27.0-32.0); Mean Corpuscular Volume 89.1 fL (80-94); Mean Platelet Vol. 9.4 fl (6.2-12.0); Monocyte# 0.28 X10^3/uL; Monocyte% 6.7 % (0-10); NRBC Flagged by Analyzer 0 % (0-5); Neutrophil # 2.66 X10^3/uL (2.7-7.7); Neutrophil % 63.7 % (47-70); Platelet Count 145 K/mm3 (150-450); RBC Distribution Width CV 15.7 % (11.6-14.6); Red Blood Count 2.21 M/mm3 (4.6-6.2); White Blood Count 4.2 K/mm3 (4.4-11.0)
[2024-04-24 07:24] LABS: Anion Gap 6 (5-15); BUN 3 mg/dL (7-18); BUN/Creat Ratio 3.7 RATIO (10-20); Calcium,Total 7.5 mg/dL (8.5-10.1); Chloride 107 mmol/L (98-107); EST Glomerular Filtration Rate 104 mL/min (>60); Est Glom Filt Rate - Afr Amer 125 mL/min (>60); Glucose 88 mg/dL (74-106); Potassium 3.6 mmol/L (3.5-5.1); Sodium Level 134 mmol/L (136-145)
--- NOTE | 2024-04-24 07:51 | PN.SURG_ITS ---
Subjective Subjective Patient reports no bloody bowel movements or abdominal pain. He had a colonoscopy yesterday which did not show any mass lesion. Objective Data Objective Data Vital Signs: Vital Signs Temp Pulse Resp BP Pulse Ox O2 Del Method 97.7 F L 77 18 145/91 H 100 Room Air 04/24/24 07:47 04/24/24 07:47 04/24/24 07:47 04/24/24 07:47 04/24/24 07:47 04/24/24 07:48 Oxygen Delivery Method Room Air Weight: 124 lb 5.451 oz Body Mass Index (BMI) 18.3 Intake & Output: Intake and Output for Last 24 Hours 04/22/24 04/23/24 04/24/24 23:59 23:59 23:59 Intake Total 2668.75 / 2668.75 1790 / 1790 1460 / 1460 Output Total 300 / 650 1075 / 1075 Balance 2668.75 / 2668.75 1490 / 1140 385 / 385 Medical Nutrition Assessment Dietitian: Malnutrition Criteria Met Start: 04/22/24 11:22 Freq: Status: Active Protocol: Document 04/22/24 11:22 LO (Rec: 04/22/24 11:22 [id number]) Nutrition Malnutrition Evidence of Malnutrition Exists Yes Malnutrition (severe): Chronic Evidenced By Suboptimal Energy Intake ( Severe),Weight Loss (Severe) Intake Problem Increased Nutrient Needs (specify) Etiology calories/protein related to increased demand for healing Signs/Symptoms as evidence by pressure ulcer on coccyx Status Active Problem Clinical Problem Chronic Disease or Condition Related Malnutrition Etiology severe related to suboptimal appetite and suspected colon cancer Signs/Symptoms as evidenced by PO intakes meeting <75% of estimated nutrition needs for 3 months and 51.6lb loss (29%) weight loss in 8 months Status Active Problem Recommendation Dietitian Recommendations/Changes ADAT to Regular when medically able to optimize oral intakes . Recommend 120mL Ensure clear 4x on clear liquid diet and 120mL ensure compact TID > clear liquid diet to provide supplemental energy. Recommend Mendoza BID to promote wound healing once diet has advanced. Lab / Micro Data 04/24/24 06:01 04/24/24 06:01 Labs: Laboratory Results - last 24 hr 04/21/24 12:30: Diff Path Review Reviewed, Iron 222 H, TIBC 234 L, Iron Saturation 94.9 H, Ferritin 1236 H 04/23/24 12:30: Iron Cancelled, TIBC Cancelled, Iron Saturation Cancelled, Ferritin Cancelled 04/23/24 17:28: Hgb 7.1 L, Hct 20.8 L 04/24/24 06:01: WBC 4.2 L, RBC 2.21 L, Hgb 6.9 L, Hct 19.7 L, MCV 89.1, MCH 31.2, MCHC 35.0, RDW Std Deviation 50.0 H, RDW Coeff of Adiel 15.7 H, Plt Count 145 L, MPV 9.4, Immature Gran % (Auto) 1.200 H, Neut % (Auto) 63.7, Lymph % (Auto) 23.9, Keith % (Auto) 6.7, Eos % (Auto) 4.3, Baso % (Auto) 0.2, Absolute Neuts (auto) 2.7, Absolute Lymphs (auto) 1.00, Nucleated RBC % 0, Sodium 134 L, Potassium 3.6, Chloride 107, Carbon Dioxide 21.0, Anion Gap 6, BUN 3 L, Creatinine 0.80, Estim Creat Clear Calc 75.40, Est GFR (MDRD) Af Amer 125, Est GFR (MDRD) Non-Af 104, BUN/Creatinine Ratio 3.7 L, Glucose 88, Calcium 7.5 L Physical Exam Const oriented x3 and no apparent distress Resp normal respiratory effort GI normal to inspection, nondistended, normoactive bowel sounds Assessment & Plan Assessment/Plan (1) Anemia: QUALIFIERS: Anemia type: unspecified type Qualified Code(s): D 64.9 - Anemia, unspecified PLAN: Patient had significant anemia and there was concern for GI blood loss as the patient had a possible cecal mass on CT scan. He underwent colonoscopy yesterday which did not show any mass. He is having a repeat CT with oral and IV contrast today. His iron studies also showed that his iron was high and his MCV was normal. He may not be having anemia from GI blood loss. Jerrod Restrepo MD Pager: [facility] [address] [place] [address], [address] [place] [address] Office:
[2024-04-24] MEDS: Sucralfate 1 GM Tablet PO ×4 (07:58→21:19)
--- NOTE | 2024-04-24 08:00 | CT_ITS ---
EXAM: CT ABDOMEN AND PELVIS WITH INTRAVENOUS CONTRAST CLINICAL INDICATION: f/u abn appearance of transverse colon (PO +IV) TECHNIQUE: Helically acquired images were obtained of the abdomen and pelvis with intravenous contrast. This CT exam was performed using one or more of the following dose reduction techniques: automated exposure control, adjustment of the mA and/or kV according to patient size, and/or use of iterative reconstruction technique. CONTRAST: Oral and amp; IV Gastrografin and amp; 100mL Isovue-370 RADIATION DOSE: CTDIvol = 18.18 mGy, DLP = 1078.58 mGy-cm COMPARISON: CT abdomen and pelvis 04/21/2024 FINDINGS: LOWER THORAX: Small pleural effusions and bibasilar atelectasis. No cardiomegaly. ABDOMEN: LIVER: Unremarkable. Homogeneous. No focal mass. GALLBLADDER AND BILE DUCTS: Unremarkable. No calcified gallstones. No gallbladder distention or wall edema. No intra- or extrahepatic biliary ductal dilation. PANCREAS: There is a 1.6 cm cystic lesion in the tail the pancreas. SPLEEN: Unremarkable. Normal size without focal cystic or solid mass. ADRENALS: Unremarkable. No nodules. KIDNEYS AND URETERS: Unremarkable. Normal renal size and position. No hydronephrosis. STOMACH AND BOWEL: The colon demonstrates a more normal appearance on the current examination with no definite wall lesion identified. 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 No stomach or bowel distention. No focal inflammatory change. PELVIS: APPENDIX: No evidence of acute appendicitis. BLADDER: Unremarkable. REPRODUCTIVE: Unremarkable as visualized. No mass. ABDOMEN and PELVIS: INTRAPERITONEAL SPACE: Unremarkable. No ascites or other fluid collection. No free air. BONES/JOINTS: Diffuse degenerative changes of the spine. No suspicious lytic or blastic abnormality. SOFT TISSUES: Unremarkable. No discrete abdominal or pelvic wall hernia. VASCULATURE: Unremarkable. Abdominal aorta is non-dilated. LYMPH NODES: Unremarkable. No enlarged lymph nodes. CT/Abdomen/Pelvis WITH Contrast IMPRESSION: 1. The colon demonstrates a more normal appearance on the current examination with no definite wall lesion identified. Colonoscopy would have higher sensitivity for identifying a bowel wall lesion. 2. Small pleural effusions and bibasilar atelectasis. 3. 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 No resulting volvulus or obstruction. 4. There is a 1.6 cm cystic lesion in the tail the pancreas. ACR White Paper guidelines (Dell, et al. JACR 2017; 14(7):911-923) suggest a contrast-enhanced, pancreas-protocol abdominal CT or MR in 6 months or endoscopic ultrasound with fine needle aspiration. Electronically Signed: Jhonatan Obrien MD at 9:23 EDT ,
[2024-04-24] MEDS: Pantoprazole Sodium 40 MG in 0.9% Normal Saline (100mL MB+) 100 ML 330 MG IV ×2 (11:46→21:18)
--- NOTE | 2024-04-24 11:50 | PN.HOSP_ITS ---
Subjective Subjective Doing well, no issues overnight Objective Data Objective Data Vital Signs: Vital Signs Temp Pulse Resp BP Pulse Ox O2 Del Method 97.3 F L 67 10 L 138/87 H 100 Room Air 04/24/24 11:00 04/24/24 11:00 04/24/24 11:00 04/24/24 11:00 04/24/24 11:00 04/24/24 11:00 Oxygen Delivery Method Room Air Weight: 124 lb 5.451 oz Body Mass Index (BMI) 18.3 Intake & Output: Intake and Output for Last 24 Hours 04/23/24 04/24/24 04/25/24 03:59 03:59 03:59 Intake Total 2068.75 / 2068.75 2790 / 2790 460 / 460 Output Total 300 / 300 750 / 750 325 / 325 Balance 1768.75 / 1768.75 2039 / 2039 135 / 135 Medical Nutrition Assessment Dietitian: Malnutrition Criteria Met Start: 04/22/24 11:22 Freq: Status: Active Protocol: Document 04/22/24 11:22 (Rec: 04/22/24 11:22 [id number]) Nutrition Malnutrition Evidence of Malnutrition Exists Yes Malnutrition (severe): Chronic Evidenced By Suboptimal Energy Intake ( Severe),Weight Loss (Severe) Intake Problem Increased Nutrient Needs (specify) Etiology calories/protein related to increased demand for healing Signs/Symptoms as evidence by pressure ulcer on coccyx Status Active Problem Clinical Problem Chronic Disease or Condition Related Malnutrition Etiology severe related to suboptimal appetite and suspected colon cancer Signs/Symptoms as evidenced by PO intakes meeting <75% of estimated nutrition needs for 3 months and 51.6lb loss (29%) weight loss in 8 months Status Active Problem Recommendation Dietitian Recommendations/Changes ADAT to Regular when medically able to optimize oral intakes . Recommend 120mL Ensure clear 4x on clear liquid diet and 120mL ensure compact TID > clear liquid diet to provide supplemental energy. Recommend Mendoza BID to promote wound healing once diet has advanced. Lab / Micro Data 04/24/24 06:01 04/24/24 06:01 Labs: Laboratory Results - last 24 hr 04/21/24 12:30: Iron 222 H, TIBC 234 L, Iron Saturation 94.9 H, Ferritin 1236 H, Crossmatch See Detail 04/23/24 12:30: Iron Cancelled, TIBC Cancelled, Iron Saturation Cancelled, Ferritin Cancelled 04/23/24 17:28: Hgb 7.1 L, Hct 20.8 L 04/24/24 06:01: WBC 4.2 L, RBC 2.21 L, Hgb 6.9 L, Hct 19.7 L, MCV 89.1, MCH 31.2, MCHC 35.0, RDW Std Deviation 50.0 H, RDW Coeff of Adiel 15.7 H, Plt Count 145 L, MPV 9.4, Immature Gran % (Auto) 1.200 H, Neut % (Auto) 63.7, Lymph % (Auto) 23.9, [place] % (Auto) 6.7, Eos % (Auto) 4.3, Baso % (Auto) 0.2, Absolute Neuts (auto) 2.7, Absolute Lymphs (auto) 1.00, Nucleated RBC % 0, Sodium 134 L, Potassium 3.6, Chloride 107, Carbon Dioxide 21.0, Anion Gap 6, BUN 3 L, Creatinine 0.80, Estim Creat Clear Calc 75.40, Est GFR (MDRD) Af Amer 125, Est GFR (MDRD) Non-Af 104, BUN/Creatinine Ratio 3.7 L, Glucose 88, Calcium 7.5 L Radiography Diagnostic Testing: Radiology Impression Abdomen/Pelvis CT 04/24/24 08:00 IMPRESSION: 1. The colon demonstrates a more normal appearance on the current examination with no definite wall lesion identified. Colonoscopy would have higher sensitivity for identifying a bowel wall lesion. 2. Small pleural effusions and bibasilar atelectasis. 3. 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 No resulting volvulus or obstruction. 4. There is a 1.6 cm cystic lesion in the tail the pancreas. ACR White Paper guidelines (Dell, et al. JACR 2017; 14(7):911-923) suggest a contrast-enhanced, pancreas-protocol abdominal CT or MR in 6 months or endoscopic ultrasound with fine needle aspiration. Electronically Signed: Jhonatan Obrien MD at 9:23 EDT , Physical Exam Narrative General: Alert, Oriented x3, Cooperative, No apparent distress HEENT: Atraumatic, PERRLA, EOMI, Normocephalic Oral: Moist Mucosa Neck: Supple, No JVD Lungs: Diminished, Normal air movement, No rhonchi, No wheeze, No rales Cardiovascular: Regular rate, Regular Rhythm, Normal S1, Normal S2, No murmurs Abdomen: Soft, Non Tender, Non-Distended, No Hepato-splenomegaly Extremities: No edema, Capillary Refill Less than 3 Seconds Skin: No rashes, No breakdown Musculoskeletal: No Tenderness to Palpation of Joints or Extremities Neurological: No focal neurological deficits, Motor Exam 5/5 strength throughout, Sensory exam intact to light touch and pain Psych/Mental Status: Normal Affect, Appropriate Assessment & Plan Assessment/Plan (1) Anemia: QUALIFIERS: Anemia type: unspecified type Qualified Code(s): D 64.9 - Anemia, unspecified PLAN: Plan 1. Anemia of unknown etiology ? Colonoscopy and EGD were unremarkable and no signs of bleeding, repeat CT scan today does not demonstrate the same colonic thickening that the initial CT scan on admission demonstrated ? Appreciate general surgery's assistance ? Iron studies based on the labs from prior to the initial transfusion show a ferritin of 1200 with an elevated iron, this could be due to a multitude of causes, will obtain hemolytic panel as well as a celiac panel ? Continue with PPI ? Hemoglobin is 6.9 today, will transfuse 1 unit DVT: SCDs Charges/Coding Visit Charges Inpatient E&M: 20745 Subs Hosp L2
[2024-04-24 12:56] LABS: AST(SGOT) 21 U/L (15-37); Alanine Aminotransfer ALT/SGPT 13 U/L (16-61); Albumin, Serum 2.6 g/dL (3.2-5.0); Alkaline Phosphatase 96 U/L (45-117); Bilirubin, Direct 0.12 mg/dL (0.00-0.30); Globulin 3.2 g/dL (2.2-4.2); LDH 166 U/L (87-241); Protein, Total 5.8 g/dL (6.4-8.2)
[2024-04-24] MEDS: Mirtazapine 15 MG Tablet 7.5 MG PO (21:19)
[2024-04-25 03:20] VITALS: BP 142/86; PULSE 70; RESP 18; TEMP 36.4; O2SAT 100
[2024-04-25] MEDS: Sucralfate 1 GM Tablet PO ×4 (06:10→21:24)
[2024-04-25 07:37] LABS: Absolute Lymphocyte Count 1.05 X10^3/uL (0.83-4.51); Absolute Neutrophil Count 2.7 X10^3/uL (2.0-7.7); Basophil# 0.03 X10^3/uL; Basophil% 0.7 % (0-1); Eosinophil# 0.23 X10^3/uL; Eosinophils% 5.1 % (0-5); Hematocrit 25.9 % (40-54); Hemoglobin 8.8 g/dL (13.0-16.5); Lymphocyte # 1.05 X10^3/ul (0.83-4.51); Lymphocyte % 23.3 % (19-41); Mean Corpuscular Hgb 30.3 pg (27.0-32.0); Mean Corpuscular Volume 89.3 fL (80-94); Mean Platelet Vol. 8.7 fl (6.2-12.0); Monocyte# 0.37 X10^3/uL; Monocyte% 8.2 % (0-10); NRBC Flagged by Analyzer 0 % (0-5); Neutrophil # 2.73 X10^3/uL (2.7-7.7); Neutrophil % 60.7 % (47-70); Platelet Count 157 K/mm3 (150-450); RBC Distribution Width CV 15.5 % (11.6-14.6); RBC Distribution Width SD 50.3 fl (35.1-43.9); White Blood Count 4.5 K/mm3 (4.4-11.0)
[2024-04-25 08:32] LABS: Anion Gap 9 (5-15); BUN 5 mg/dL (7-18); BUN/Creat Ratio 5.7 RATIO (10-20); Calcium,Total 7.6 mg/dL (8.5-10.1); Chloride 106 mmol/L (98-107); Creatinine, Serum 0.88 mg/dL (0.70-1.30); EST Glomerular Filtration Rate 93 mL/min (>60); Est Glom Filt Rate - Afr Amer 113 mL/min (>60); Estimated Creatinine Clearance 68.54 ml/min; Glucose 102 mg/dL (74-106); Potassium 3.8 mmol/L (3.5-5.1); Sodium Level 135 mmol/L (136-145)
[2024-04-25 09:10] VITALS: BP 133/95; PULSE 77; RESP 18; TEMP 36.4; O2SAT 100
[2024-04-25] MEDS: 0.9% Normal Saline (1000mL) 1,000 ML 75 ML IV ×2 (09:12→21:27)
[2024-04-25] MEDS: Pantoprazole Sodium 40 MG in 0.9% Normal Saline (100mL MB+) 100 ML 330 MG IV ×2 (09:12→21:22)
[2024-04-25 13:04] LABS: Hematocrit 25.8 % (40-54); Hemoglobin 8.9 g/dL (13.0-16.5)
--- NOTE | 2024-04-25 14:40 | PN.HOSP_ITS ---
Subjective Subjective Doing well, no issues overnight. Tolerating a diet. Hemoglobin is stable, this morning was 8.8 and on recheck it was 8.9 Objective Data Objective Data Vital Signs: Vital Signs Temp Pulse Resp BP Pulse Ox O2 Del Method 97.6 F L 77 18 133/95 H 100 Room Air 04/25/24 09:10 04/25/24 09:10 04/25/24 09:10 04/25/24 09:10 04/25/24 09:10 04/25/24 12:57 Oxygen Delivery Method Room Air Weight: 124 lb 5.451 oz Body Mass Index (BMI) 18.3 Intake & Output: Intake and Output for Last 24 Hours 04/24/24 04/25/24 04/26/24 03:59 03:59 03:59 Intake Total 2790 / 2790 2568.50 / 2568.50 1603.75 / 1603.75 Output Total 750 / 750 825 / 825 1350 / 1350 Balance 2040 / 2040 1743.50 / 1743.50 253.75 / 253.75 Medical Nutrition Assessment Dietitian: Malnutrition Criteria Met Start: 04/22/24 11:22 Freq: Status: Active Protocol: Document 04/22/24 11:22 (Rec: 04/22/24 11:22 [id number]) Nutrition Malnutrition Evidence of Malnutrition Exists Yes Malnutrition (severe): Chronic Evidenced By Suboptimal Energy Intake ( Severe),Weight Loss (Severe) Intake Problem Increased Nutrient Needs (specify) Etiology calories/protein related to increased demand for healing Signs/Symptoms as evidence by pressure ulcer on coccyx Status Active Problem Clinical Problem Chronic Disease or Condition Related Malnutrition Etiology severe related to suboptimal appetite and suspected colon cancer Signs/Symptoms as evidenced by PO intakes meeting <75% of estimated nutrition needs for 3 months and 51.6lb loss (29%) weight loss in 8 months Status Active Problem Recommendation Dietitian Recommendations/Changes ADAT to Regular when medically able to optimize oral intakes . Recommend 120mL Ensure clear 4x on clear liquid diet and 120mL ensure compact TID > clear liquid diet to provide supplemental energy. Recommend Mendoza BID to promote wound healing once diet has advanced. Lab / Micro Data 04/25/24 12:50 04/25/24 06:25 Labs: Laboratory Results - last 24 hr 04/25/24 06:25: WBC 4.5, RBC 2.90 L, Hgb 8.8 L, Hct 25.9 L, MCV 89.3, MCH 30.3, MCHC 34.0, RDW Std Deviation 50.3 H, RDW Coeff of Adiel 15.5 H, Plt Count 157, MPV 8.7, Immature Gran % (Auto) 2.000 H, Neut % (Auto) 60.7, Lymph % (Auto) 23.3, [place] % (Auto) 8.2, Eos % (Auto) 5.1 H, Baso % (Auto) 0.7, Absolute Neuts (auto) 2.7, Absolute Lymphs (auto) 1.05, Nucleated RBC % 0, Sodium 135 L, Potassium 3.8, Chloride 106, Carbon Dioxide 20.0 L, Anion Gap 9, BUN 5 L, Creatinine 0.88, Estim Creat Clear Calc 68.54, Est GFR (MDRD) Af Amer 113, Est GFR (MDRD) Non-Af 93, BUN/Creatinine Ratio 5.7 L, Glucose 102, Calcium 7.6 L 04/25/24 12:50: Hgb 8.9 L, Hct 25.8 L Physical Exam Narrative General: Alert, Oriented x3, Cooperative, No apparent distress HEENT: Atraumatic, PERRLA, EOMI, Normocephalic Oral: Moist Mucosa Neck: Supple, No JVD Lungs: Diminished, Normal air movement, No rhonchi, No wheeze, No rales Cardiovascular: Regular rate, Regular Rhythm, Normal S1, Normal S2, No murmurs Abdomen: Soft, Non Tender, Non-Distended, No Hepato-splenomegaly Extremities: No edema, Capillary Refill Less than 3 Seconds Skin: No rashes, No breakdown Musculoskeletal: No Tenderness to Palpation of Joints or Extremities Neurological: No focal neurological deficits, Motor Exam 5/5 strength throughout, Sensory exam intact to light touch and pain Psych/Mental Status: Normal Affect, Appropriate Assessment & Plan Assessment/Plan (1) Anemia: QUALIFIERS: Anemia type: unspecified type Qualified Code(s): D 64.9 - Anemia, unspecified PLAN: Plan 1. Anemia of unknown etiology ? Colonoscopy and EGD were unremarkable and no signs of bleeding, repeat CT scan today does not demonstrate the same colonic thickening that the initial CT scan on admission demonstrated ? Appreciate general surgery's assistance ? Iron studies based on the labs from prior to the initial transfusion show a ferritin of 1200 with an elevated iron, this could be due to a multitude of causes, will obtain hemolytic panel as well as a celiac panel, haptoglobin is pending, LDH is normal, protein electrophoresis as well as celiac panel still pending ? Continue with PPI ?Hemoglobin this morning was 8.8, recheck 8.9 DVT: SCDs Charges/Coding Visit Charges Inpatient E&M: 43528 Subs Hosp L2
[2024-04-25 15:02] VITALS: BP 150/92; PULSE 78; RESP 18; TEMP 36.6; O2SAT 100
[2024-04-25 21:19] VITALS: BP 154/97; PULSE 77; RESP 18; TEMP 36.6; O2SAT 100
[2024-04-25] MEDS: Mirtazapine 15 MG Tablet 7.5 MG PO (23:07)
[2024-04-26 03:51] VITALS: BP 146/98; PULSE 76; RESP 18; TEMP 36.3; O2SAT 100
[2024-04-26] MEDS: Sucralfate 1 GM Tablet PO ×2 (06:05→11:10)
[2024-04-26 09:17] VITALS: BP 143/93; PULSE 81; RESP 18; TEMP 36.6; O2SAT 100
[2024-04-26] MEDS: 0.9% Normal Saline (1000mL) 1,000 ML 75 ML IV (09:19)
[2024-04-26] MEDS: Pantoprazole Sodium 40 MG in 0.9% Normal Saline (100mL MB+) 100 ML 330 MG IV (09:20)
--- NOTE | 2024-04-26 10:47 | DCINST_ITS ---
Discharge Instructions Diet Discharge Diet: No restrictions Activity Discharge Activity: Return to Normal Activity Dressing / Incision Call your doctor if you observe: Fever of 101 or Higher, Shortness of breath, Dizziness, Fainting spells, Swelling in the ankles, Chest pain and Increased palpitations (irregular heartbeat) Follow Up Care Test Results: Test results from this visit will be discussed in further detail at your follow- up appointment, if applicable. Discharge Plan Admission Admit Date/Time: 04/21/24 15:48 Attending Provider: Lavell Levine Primary Care Provider: Emanuel Macedo Chi Consulting Providers: Tristan Chowdhury; [place] Discharge Orders/Prescriptions Prescriptions: No Action mirtazapine 7.5 mg tablet 7.5 mg PO QHS Referrals / Follow Up: Emanuel Macedo Chi, MD [Primary Care Provider] -
--- NOTE | 2024-04-26 10:47 | PCM.DC ---
Discharge Instructions Diet Discharge Diet: No restrictions Activity Discharge Activity: Return to Normal Activity Dressing / Incision Call your doctor if you observe: Fever of 101 or Higher, Shortness of breath, Dizziness, Fainting spells, Swelling in the ankles, Chest pain and Increased palpitations (irregular heartbeat) Follow Up Care Test Results: Test results from this visit will be discussed in further detail at your follow-up appointment, if applicable. Discharge Plan Admission Admit Date/Time: 04/21/24 15:48 Attending Provider: Lavell Levine Primary Care Provider: Emanuel Macedo Chi Consult[employer] Providers: Tristan Chowdhury; [place] Instructions Additional Instructions / Restrictions: As discussed to help with constipation take fiber supplements with MiraLAX. Follow-up with your PCP in 3 to 5 days to monitor your hemoglobin to make sure that anemia is staying stable Discharge Orders/Prescriptions Prescriptions: New pantoprazole [Protonix] 40 mg tablet,delayed release (DR/EC) 40 mg PO DAILY Qty: 30 0RF Continued mirtazapine 7.5 mg tablet 7.5 mg PO QHS Referrals / Follow Up: John Anguiano DO [Med Staff - Active Staff] - Within 1 Month Emanuel Macedo Chi, MD [Primary Care Provider] - Within 1 Week Disposition Disposition (needs filled in before D/C Order can be placed): Home, Self Care
--- NOTE | 2024-04-26 11:37 | CASEMGMT ---
Patient has order for discharge. RN CM in to discuss needs at discharge. Patient denies needs or help at discharge. Patient had no further questions or concerns.
[2024-04-26 11:55] VITALS: BP 146/90; PULSE 98; RESP 18; TEMP 36.4; O2SAT 100
--- NOTE | 2024-04-26 12:17 | PHA.DC_ITS ---
Pharmacy [facility] has performed discharge medication reconciliation and counseling for this patient. 1. PANTOPRAZOLE 40MG PO DAILY The patient's discharge medication list was reviewed for discrepancies and discrepancies were resolved. The patient was counseled on the following discharge medications and changes in medications for homegoing were reviewed. The Reason for Use, instructions for use, and potential side effects were reviewed for all new medications. The patient's questions regarding all of their medications were answered. The patient was able to verbally demonstrate an understanding of their discharge medications. Medications at Discharge Home Medications mirtazapine 7.5 mg tablet 7.5 mg PO [facility] mental health 04/21/24 pantoprazole 40 mg tablet,delayed release (Protonix) 40 mg PO DAILY #30 tabs 04/26/24
--- NOTE | 2024-04-26 14:40 | PCM.DC.SUM ---
Providers Date of Admission: 04/21/24 Primary Care Physician: Dr. Emanuel Macedo MD Consultations 04/21/24 16:35 Consult: General Surgery Routine Consulting Provider: Tristan Chowdhury Reason for Consult: possible colon mass EMERGENT Consult: No MD Notified: Yes Date Notified: 04/21/24 Time Notified: 15:51 Method of Notification: Verbal 04/21/24 19:35 Consult: Onc/Wound/phone counselor Routine Comment: Reason for Consult:: Ulcer to left buttock Reason For Visit: SEVERE ANEMIA, POSSIBLE COLON MASS Diagnosis Discharge Diagnosis (1) Anemia: Status: Acute Code(s): D64.9 - Anemia, unspecified Qualifiers: Anemia type: unspecified type Qualified Code(s): D64.9 - Anemia, unspecified Medications at Discharge Home Medications mirtazapine 7.5 mg tablet 7.5 mg PO QHS mental health 04/21/24 pantoprazole 40 mg tablet,delayed release (Protonix) 40 mg PO DAILY #30 tabs 04/26/24 Hospital Course Operations None Procedures Blood transfusion, Colonoscopy and EGD Summary of Care Provided Minutes Spent on Discharge: 36 Hospital Course: Per HPI: KIM ESCALONA, is a 64 M who presents to the emergency room at [facility] at the direction of his PCP due to abnormal labs which were obtained yesterday. Patient had a CBC which showed a hemoglobin of 5.6, patient does not usually go to a physician and had gone to Dr. Macedo to establish care yesterday. Patient stated that he felt generally unwell, he was nonspecific however, patient has chronic pain in his right hip from a fracture which was repaired in August of last year. Patient states that in the last 3 months he has lost 20 pounds of weight. Patient further states that he has not had a bowel movement in over 2 weeks. Labs obtained in the emergency room showed the patient's hemoglobin to be 5.6, chemistry profile was abnormal for a sodium of 126 and a bicarb of 19. Patient's alkaline phosphatase was elevated at 143. Patient had CT of the abdomen pelvis with contrast, there was a thickening of possible mass lesion in the proximal portion of the transverse colon just distal to the hepatic flexure. There is also noted to be diffuse gastric wall thickening. Patient will be admitted to PCU, he will be transfused 2 units of packed red blood cells, patient will be seen in consultation by general surgery for colonoscopy. Hospital Course: 1. Anemia of unknown etiology/gastritis?64-year-old male presented to the hospital secondary to abnormal labs he was found to be severely anemic. CT scan of the abdomen and pelvis with contrast at that time demonstrated possible colonic thickening at the hepatic flexure and there is concern for cancer so he underwent a colonoscopy and EGD because there is also some concern for gastric wall thickening. Colonoscopy and EGD ended up being normal and no masses were found, there is some gastritis but no signs of active bleeding. His anemia did improve with transfusions however there is still no obvious source identified. Iron studies were run on blood obtained prior to the transfusions and it showed iron overload. Hemolytic labs were obtained and are still pending however LDH was normal and direct Fouzia was negative. Other lab work including celiac panel as well as serum electrophoresis is also pending. I do recommend follow-up with his PCP in 3 to 5 days to monitor his anemia but I also recommend follow-up with gastroenterology to evaluate further this possible iron overload as you do have the potential for anemia in the setting of an iron overload disease or and secondary hemochromatosis. He has been concerned about constipation so we did discuss the role of fiber supplementation as well as MiraLAX. Also given his gastritis he was sent on Protonix 40 mg p.o. daily. I discussed with him the plan for discharge today and he expressed understanding of the risk benefits of going home and would like to go home today. He does feel much better. Physical Exam Narrative General: Alert, Oriented x3, Cooperative, No apparent distress HEENT: Atraumatic, PERRLA, EOMI, Normocephalic Oral: Moist Mucosa Neck: Supple, No JVD Lungs: Diminished, Normal air movement, No rhonchi, No wheeze, No rales Cardiovascular: Regular rate, Regular Rhythm, Normal S1, Normal S2, No murmurs Abdomen: Soft, Non Tender, Non-Distended, No Hepato-splenomegaly Extremities: No edema, Capillary Refill Less than 3 Seconds Skin: No rashes, No breakdown Musculoskeletal: No Tenderness to Palpation of Joints or Extremities Neurological: No focal neurological deficits, Motor Exam 5/5 strength throughout, Sensory exam intact to light touch and pain Psych/Mental Status: Normal Affect, Appropriate Weight / BMI Weight Weight: 124 lb 5.451 oz Body Mass Index (BMI) 18.3 ABG / Lab / Microbiology Data 04/25/24 12:50 04/25/24 06:25 D/C Instructions Discharge Diet: No restrictions Call your doctor if you observe: Fever of 101 or Higher, Shortness of breath, Dizziness, Fainting spells, Swelling in the ankles, Chest pain and Increased palpitations (irregular heartbeat) Meaningful Use Info Meaningful Use Meaningful Use Diagnoses (Choose all that apply): None applicable Ischemic Stroke Statin Dosing Therapy Reference: STATIN DOSE THERAPY REFERENCE: * Patients > 75 years receive moderate or high dose statin therapy. * Patients 75 years or YOUNGER should receive HIGH intensity statin dose unless contraindicated. You will be required to document reason for non-treatment if statin daily dose does not meet guidelines. HIGH DOSE STATIN THERAPY DAILY Atorvastatin > than or = to 40 mg Rosuvastatin > than or = to 20 mg Amlodipine + Atorvastatin > than or = to 2.5/40 mg Ezetimibe + Simvastatin 10/80 mg Simvastatin 80mg Discharge Plan Admission Admit Date/Time: 04/21/24 15:48 Attending Provider: Lavell Levine Primary Care Provider: Emanuel Macedo Chi Consulting Providers: Tristan Chowdhury; [place] Instructions Additional Instructions / Restrictions: As discussed to help with constipation take fiber supplements with MiraLAX. Follow-up with your PCP in 3 to 5 days to monitor your hemoglobin to make sure that anemia is staying stable Discharge Orders/Prescriptions Prescriptions: New pantoprazole [Protonix] 40 mg tablet,delayed release (DR/EC) 40 mg PO DAILY Qty: 30 0RF Continued mirtazapine 7.5 mg tablet 7.5 mg PO QHS Referrals / Follow Up: John Anguiano DO [Med Staff - Active Staff] - Within 1 Month Emanuel Macedo Chi, MD [Primary Care Provider] - Within 1 Week Disposition Disposition (needs filled in before D/C Order can be placed): Home, Self Care Charges/Coding Visit Charges Inpatient E&M: 10989 Disch Hosp >30min
[2024-04-27 12:00] LABS: Albumin 2.9 g/dL (2.9-4.4); Alpha-1-Globulins 0.3 g/dL (0.0-0.4); Alpha-2-Globulins 0.7 g/dL (0.4-1.0); Deamidated Gliadin IgA 45 units (0-19); Deamidated Gliadin IgG 2 units (0-19); Endomysial Antibody IgA Negative (Negative); Haptoglobin 157 mg/dL (32-363); Immunoglobulin A 295 mg/dL (61-437); Immunoglobulin G 1111 mg/dL (603-1613); Immunoglobulin M 85 mg/dL (20-172); PROEL- TOTAL PROTEIN 5.5 g/dL (6.0-8.5); t-Transglutaminase IgA <2 U/mL (0-3)
== END 2024-04-26 12:10 | disposition home or self-care (01) | DRG 951 ==
LOC: ED 14:21 → PCU 04-22 06:29
PROVIDERS: Anesthesiology; Physician Assistant; Surgery; Admitting Provider Internal Medicine; Emergency Provider Emergency Medicine; PCP Family Medicine Geriatric Medicine; Visit Provider Family Medicine
PROC: 0DJD8ZZ Inspection of Lower Intestinal Tract, Via Natural or Artificial Opening Endoscopic (ICD-10-PCS; CPT 45378; principal; 2024-04-23 09:25)
DX: D50.0 Iron deficiency anemia secondary to blood loss (chronic) (principal); L89.320 Pressure ulcer of left buttock, unstageable; E43 Unspecified severe protein-calorie malnutrition; E87.1 Hypo-osmolality and hyponatremia; Q43.8 Other specified congenital malformations of intestine; K29.70 Gastritis, unspecified, without bleeding; K44.9 Diaphragmatic hernia without obstruction or gangrene; F17.210 Nicotine dependence, cigarettes, uncomplicated; Z96.641 Presence of right artificial hip joint; Z68.1 Body mass index [BMI] 19.9 or less, adult; Z79.899 Other long term (current) drug therapy; R22.2 Localized swelling, mass and lump, trunk; R29.6 Repeated falls
CPT/HCPCS: 45380; 43239; 82728; 83540; 83550; 36415; 36430; 71045; 74177; 80048; 80053; 80076; 82784; 83010; 83516; 83615; 84165; 85014; 85018; 85025; 85610; 85730; 86255; 86334; 86850; 86880; 86900; 86901; 86920; 86922; 88305; 88312; 88342; 93005; 96361; 96365; 96366; 97162; 97166; 97802; 99221; 99284; J7030; J7040; P9016; Q9967; A4216; G0378; J2405

== ENCOUNTER → 2024-04-29 | Outpatient (CLI) | payer MEDICAID, SELFPAY ==
[2024-04-29 16:09] LABS: Absolute Lymphocyte Count 0.98 X10^3/uL (0.83-4.51); Absolute Neutrophil Count 2.5 X10^3/uL (2.0-7.7); Basophil# 0.02 X10^3/uL; Basophil% 0.5 % (0-1); Eosinophil# 0.22 X10^3/uL; Eosinophils% 5.3 % (0-5); Hematocrit 23.3 % (40-54); Hemoglobin 7.8 g/dL (13.0-16.5); Lymphocyte # 0.98 X10^3/ul (0.83-4.51); Lymphocyte % 23.7 % (19-41); Mean Corp Hgb Conc 33.5 g/dL (32-36); Mean Corpuscular Hgb 30.5 pg (27.0-32.0); Mean Platelet Vol. 8.9 fl (6.2-12.0); Monocyte# 0.34 X10^3/uL; Monocyte% 8.2 % (0-10); NRBC Flagged by Analyzer 0 % (0-5); Neutrophil # 2.54 X10^3/uL (2.7-7.7); Neutrophil % 61.3 % (47-70); Platelet Count 156 K/mm3 (150-450); RBC Distribution Width CV 16.2 % (11.6-14.6); RBC Distribution Width SD 52.7 fl (35.1-43.9); Red Blood Count 2.56 M/mm3 (4.6-6.2); White Blood Count 4.1 K/mm3 (4.4-11.0)
== END | disposition home or self-care (01) ==
LOC: POLAB3 15:53
PROVIDERS: PCP Family Medicine Geriatric Medicine; Visit Provider Family Medicine Geriatric Medicine
DX: D64.9 Anemia, unspecified (principal)
CPT/HCPCS: 36415; 85025

== ENCOUNTER → 2024-08-30 | Outpatient (CLI) | payer MEDICAID, SELFPAY ==
[2024-08-30 14:44] LABS: Absolute Neutrophil Count 3.1 X10^3/uL (2.0-7.7); Basophil# 0.03 X10^3/uL; Basophil% 0.6 % (0-1); Eosinophil# 0.24 X10^3/uL; Eosinophils% 4.8 % (0-5); Hematocrit 26.6 % (40-54); Hemoglobin 9.5 g/dL (13.0-16.5); Lymphocyte % 22.2 % (19-41); Mean Corp Hgb Conc 35.7 g/dL (32-36); Mean Corpuscular Hgb 34.7 pg (27.0-32.0); Mean Corpuscular Volume 97.1 fL (80-94); Mean Platelet Vol. 9.1 fl (6.2-12.0); Monocyte# 0.46 X10^3/uL; Monocyte% 9.3 % (0-10); NRBC Flagged by Analyzer 0 % (0-5); Neutrophil % 62.5 % (47-70); Platelet Count 143 K/mm3 (150-450); RBC Distribution Width CV 13.2 % (11.6-14.6); RBC Distribution Width SD 46.3 fl (35.1-43.9); Red Blood Count 2.74 M/mm3 (4.6-6.2)
[2024-08-30 15:33] LABS: ALB/GLOB Ratio 1.1 RATIO (0.9-2.4); AST(SGOT) 25 U/L (15-37); Alanine Aminotransfer ALT/SGPT 26 U/L (16-61); Albumin, Serum 3.8 g/dL (3.2-5.0); Alkaline Phosphatase 84 U/L (45-117); Anion Gap 11 (5-15); BUN 11 mg/dL (7-18); BUN/Creat Ratio 10.8 RATIO (10-20); Calcium,Total 8.4 mg/dL (8.5-10.1); Chloride 94 mmol/L (98-107); Cholesterol 143 mg/dL (200); Creatinine, Serum 1.02 mg/dL (0.70-1.30); EST Glomerular Filtration Rate 78 mL/min (>60); Est Glom Filt Rate - Afr Amer 95 mL/min (>60); Globulin 3.4 g/dL (2.2-4.2); Glucose 96 mg/dL (74-106); High Density Lipoprotein 106 mg/dL; Potassium 4.1 mmol/L (3.5-5.1); Protein, Total 7.2 g/dL (6.4-8.2); Sodium Level 126 mmol/L (136-145); Triglycerides 59 mg/dL; Very Low Density Lipoprotein 12 mg/dL (5-40)
== END | disposition home or self-care (01) ==
LOC: POLAB3 14:25
PROVIDERS: PCP Family Medicine Geriatric Medicine; Visit Provider Family Medicine Geriatric Medicine
DX: R53.83 Other fatigue (principal); E78.5 Hyperlipidemia, unspecified
CPT/HCPCS: 36415; 80053; 80061; 84443; 85025

== ENCOUNTER 2024-10-05 11:54 | Outpatient (RCR) | payer OTHER, MEDICAID, SELFPAY ==
--- NOTE | 2024-10-05 14:25 | HP.OTFCE_ITS ---
Task Lift Floor (Occasional 1-33% of Day): 0 Floor (Frequent 34-66% of Day): 0 Floor (Constant 67-100% of Day): 0 Floor PDL: No Ability Knee (Occasional 1-33% of Day): 25 Knee (Frequent 34-66% of Day): 12.5 Knee (Constant 67-100% of Day): 5.26 Knee PDL: Light Waist (Occasional 1-33% of Day): 25 Waist (Frequent 34-66% of Day): 12.5 Waist (Constant 67-100% of Day): 5.26 Waist PDL: Light Shoulder (Occasional 1-33% of Day): 20 Shoulder (Frequent 34-66% of Day): 10 Shoulder (Constant 67-100% of Day): 4.21 Shoulder PDL: Light Overhead (Occasional 1-33% of Day): 0 Overhead (Frequent 34-66% of Day): 0 Overhead (Constant 67-100% of Day): 0 Overhead PDL: No Ability Work Activity/Posture Bending: No Ablility (0% of day) Squatting: Occasional Ability (1-33% of day) Kneeling: No Ablility (0% of day) Reaching out: Constant Ability (67-100% of day) Reaching up: Occasional Ability (1-33% of day) Sitting: Frequent Ability (34-66% of day) Walking: Frequent Ability (34-66% of day) Standing: Frequent Ability (34-66% of day) Reference Reference: Duration Sedentary Sedentary Light Light Light Medium Medium Medium Heavy Very Heavy Heavy Occasional (0-33% of day) Frequent (34-66% of day) Constant (67-100% of day) 10 # Negligible Negligible 15 # 8 # Negligible 20 # 10# Negli. 35 # 18 # 7 # 50 # 25 # 10 # 75 # 100 # >100 # 38 # 50 # >50 # 15 # 20 # >20 # Patient Information Height: 5 ft 9 in Weight:: 56.245 kg Hand Dominance: R Medical History Medical History Including Restrictions: Pt with fracture to R femur Aug 16 [address]x [address] Dr Marshall Aug. pt with fall while at work. Pt initially did PT after surgery 2x a week for 6 weeks then states insurance would no longer cover for him. Pt with surgery 6 months earlier in april of 2023 on cervical region of neck C5 pt unable to specify what surgery they performed. chronic pain in R shoulder. 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 pt sleeps in lazy boy main level bathroom is on main level as well as second level. Pt does have a basement which is where laundry is located. stairs in home have rails. Pt bathroom standard commode, water hose for shower no tub. pt uses a 2WW walker at home. Pt is I in self care abilities as well as IADL tasks. Drives. Physical Examination Physical Examination: baseline 02 99% HR 95 bpm sitting in chair ROM: BUE WFL L Lower extremity hip flexion wfl knee extension wfl knee flexion 95 degrees R lower extremity hip flexion slightly limited rotates to L side to complete knee extension wfl knee flexion 100 degrees Strength: L shoulder flexion: 10.1# R shoulder flexion: 8.2# L tricep: 17.9# R tricep: 19.6# L bicep: 23.3# R bicep:21.8 L ER: 12.3# R ER: 10.3# L hip flexion: 11.9# R hip flexion: 19.1# L knee extension:16.8 R knee extension: 15.7# L knee flexion: 11.3# R knee flexion: 14.3# Right Quality Control Engineering Technician Strength Average: 50.00 Right Quality Control Engineering Technician Strength Percentile: <.9 percentile Left Quality Control Engineering Technician Strength Average: 50.00 Left Quality Control Engineering Technician Strength Percentile: <5.6th percentile Right Lateral Pinch Average: 15.00 Right Lateral Pinch Percentile: 10th percentile Left Lateral Pinch Average: 10.00 Left Lateral Pinch Percentile: <10th percentile Right Tripod Pinch Average: 11.33 Right Tripod Pinch Percentile: <10th percentile Left Tripod Pinch Average: 11.33 Left Tripod Pinch Percentile: 10th percentile Sensation: L hand semmes-jarred: thumb and IF 4.08 and D3-5 3.84 indicating diminished protective sensation R hand all fingers 3.84 indicating diminished protective sensation Fine Motor: 9 hole peg assessment: L hand trial 1: 48 sec L hand trial 2: 46 sec L hand trail 3: 48 sec L hand average:47.3 <0th percentile R hand trial 1: 41 sec R hand trial 2: 40 sec R hand trial 3: 40 sec R hand average: 40.3 <0th percentile Balance: standing forward reach score 1 no UE support score of 6 or less indicates significant risk for falls Non Material Handling Activities Bending: Bending: trial of 3: 0/3 10x at own pace: 0/3 10x fast: 0/3 pt unable to bend without losing balance and falling per --- does not wish to trial here Squatting: Squatting: trial of 3: 3/3 BUE support on counter half squat unable to come full way down comes approx 1/[address] down 10x at own pace: 10/10 BUE support on counter half squat unable to come full way down comes approx 1/[address] 10x fast: 10/10 BUE support on counter half squat unable to come full way down comes approx 1/[address] Kneeling: Kneeling: trial of 3: 0/3 10x at own pace: 0/10 10x fast: 0/10 attempts on first trial however due to instability unable to come full day down despite UE support on desk Reaching out/up: Reaching Out: trial of 3: 3/3 10x at own pace: 10/10 10x fast: 10/10 Reaching Up: trial of 3: 3/3 10x at own pace : 10/10 10x fast: 10/10 reaches up long term due to fear of losing balance with reaching all the way up HR 79 bpm and 02 99% pain 0/10 Walking: walks lap around therapy room x3 and to and from OT desk total of 1194 feet uses wheelchair for BUE support during walking no RB needed HR 92 bpm 02 99% pain 0/10 feels fatigue after walk keeps steady slow pace hunched forward during mobility Standing: able to stand for approx 15-20 min duraton during assessment using BUE support of wheelchair handles pain 0/10 increasing fatigue Sitting: tolerates sitting during FCE intake portion for 45 min before standing to move pt states i was starting to get pretty stiff Climbing Stairs: able to ascend 10 steps alternating feet using BUE grab bars placing weight mostly through arms able to descent 10 steps rotating to L side then rotating to R side long term through using step to pattern Dynamic Occasional Lifting Capacity Floor Lift: unable to reach bottom handle of box due to instability in standing unable to squat low enough to reach Knee Lift: box (15#) + 10#= total of 25# able to slightly bend at knees and hinge at hips enough to reach top handle on box to complete pain 0/10 Waist Lift: box (15#)+ 10#= total of 25# uses body to offset weight with side stance pain 0/10 HR 90 bpm and 02 99% Shoulder Lift: box (15#) +5#= total of 20# swings box ontop of other using momentum to perform wide stance pain 0/10 Overhead Lift: unable to lift box to bring ontop due to instability in standing pain 0/10 HR 90 bpm and 02 99% Carrying: unable due to balance need for external support when walking
== END 2024-10-05 19:00 | disposition home or self-care (01) ==
LOC: OT 11:54
PROVIDERS: PCP Family Medicine Geriatric Medicine; Visit Provider Orthopaedic Surgery
DX: S72.011D Unspecified intracapsular fracture of right femur, subsequent encounter for closed fracture with routine healing (principal)
CPT/HCPCS: 97750

== ENCOUNTER 2025-01-19 07:20 | Inpatient (IN) | payer MEDICAID, SELFPAY ==
[2025-01-19] VITALS (12 sets, daily range): BP systolic 104–129; BP diastolic 61–97; PULSE 83–96; RESP 14–18; TEMP 36.5–37.1; O2SAT 90–100; BMI 23.4; BMI 23.5
--- NOTE | 2025-01-19 07:31 | RAD_ITS ---
PROCEDURE: PELVIS 1 OR 2 VIEWS 01/19/2025 REASON FOR EXAM: FALL TECHNIQUE: 1 view(s) of the pelvis. COMPARISON: None available FINDINGS: No acute fracture or dislocation. Apparent osseous fusion of the right SI joint suggested. Right hip replacement with femoral prosthesis partially imaged. Left hip osteoarthrosis. Pubic symphysis appears within limits. RAD/Pelvis 1 or 2 Views IMPRESSION: No acute fracture or dislocation. Right hip replacement with femoral prosthesis partially imaged. Reading Location: [id number]
[2025-01-19] MEDS: 0.9% Normal Saline (1000mL) 1,000 ML 1000 ML IV (07:47)
--- NOTE | 2025-01-19 07:48 | EX.ED.DYSGE1 ---
HPI History of Present Illness Chief Complaint: Fall Informant: patient Narrative Narrative: Patient is 64-year-old male with history of prior right hip fracture and regular alcohol use presenting from home via EMS for generalized weakness and fall. Patient has had progressively worsening generalized weakness for the past week. This morning when he was walking he tried to turn and lost his balance and fell into the wall. He landed on his buttocks. Denies hitting his head. Given how weak he was he finally agreed to come to the hospital (significant other has been pushing for this for a couple days now). He notes he has had some associated nausea and vomiting has been clear/mucus. He does not recall when his last bowel movement is. Denies any abdominal pain. Denies any fever or chills. Denies any associated numbness or tingling. Denies any sick contacts. Does not know what color her stools have been. Denies any urinary symptoms. Denies any vertigo. Denies any history of alcohol withdrawal/DTs. His states he is an alcoholic but patient states he drinks daily but it is not that much. Notes that he is having some pelvic/bilateral hip pain but thinks it is because he has not been walking or moving around. No other complaints or concerns reported at this time. No sick contacts reported. [facility] Medical History Closed fracture of right hip Home Medications ?Medication ?Instructions ?Recorded ?Last Taken ?Type mirtazapine 7.5 mg tablet 7.5 mg PO QHS mental health 04/21/24 01/18/25 History pantoprazole 40 mg tablet,delayed 40 mg PO DAILY #30 tabs 04/26/24 Unknown Rx release (Protonix) ascorbic acid (vitamin C) 500 mg 500 mg PO DAILY 01/19/25 Unknown History tablet losartan 100 mg tablet 100 mg PO QHS 01/19/25 Unknown History Allergy/AdvReac Type Severity Reaction Status Date / Time No Known Allergies Allergy Verified 08/16/23 05:09 Surgical History S/P total hip arthroplasty Hx of neck surgery Social History Smoking Status: Current some day smoker tobacco type: cigarettes alcohol intake: current alcohol intake frequency: a few times a week substance use type: does not use ROS ROS ED Constitutional Constitutional ED: Reports other; Denies chills or fever(s) Eyes Eyes: Denies blurry vision or change in vision Cardiovascular Cardiovascular: Denies chest pain Respiratory/Chest Respiratory/Chest: Denies cough or dyspnea Gastrointestinal Gastrointestinal: Reports nausea and vomiting; Denies abdominal pain, constipation, diarrhea or melena Genitourinary Genitourinary ED: Denies dysuria or urinary frequency Musculoskeletal Musculoskeletal: Reports other Details: Mild bilateral hip/pelvic pain ; Denies arthralgias or myalgias Integumentary Denies rash Neurologic Neurologic: Reports weakness; Denies headache(s) or paresthesias Hematologic/Lymphatic Hematologic/Lymphatic: Denies easy bleeding or easy bruising EXAM Physical Exam Const Vital Signs: 01/19/25 07:21 01/19/25 07:26 Temperature 97.8 F Temperature Source Oral Pulse Rate 96 Respiratory Rate 15 Respiratory Effort Normal Respiratory Depth Normal Respiratory Pattern Normal Blood Pressure 107/67 Blood Pressure Mean 80 Oxygen Delivery Method Room Air Positive well developed Constitutional Narrative: Generally weak appearing General Appearance ED: well developed, NAD and pallor HEENT Reports TM's clear and dry mucous membranes Negative for trauma Tympanic Membrane ED: Yes TM's clear Mouth ED: Yes dry mucous membranes Mouth: dry mucous membranes Eyes PERRL and EOMs intact bilaterally General Eye ED: Negative for scleral icterus Neck supple and no JVD Chest Wall inspection of chest normal and palpation of chest normal Resp normal respiratory effort and clear to auscultation bilaterally Cardio regular rate, regular rhythm and no murmurs GI normal to inspection, nondistended, normoactive bowel sounds, non-tender and non-distended GI Narrative: No fluid wave present. Chaperoned rectal exam?brown stool. Hemoccult negative. Extremity normal to inspection Extremity Narrative: Mild tenderness with range of motion of the bilateral hips with no laterality present. No rotational deformity of the extremities. No other bony tenderness appreciated. General Extremety ED: Negative for edema General Extremity: Negative for edema Neuro oriented x3, CN's II-XII intact bilaterally and no sensory deficits noted Sensorium / Orientation: alert Motor Exam: general weakness Psych mental status grossly normal Skin no rashes or lesions noted General Skin Exam: pallor MDM MDM MDM Narrative Medical decision making narrative: Patient evaluated for generalized weakness and now fall. Seems to be more of a global weakness with no focal neurologic deficits. Differential includes symptomatic anemia, electrolyte abnormality, alcoholic ketoacidosis, ESTER, infection, hypoglycemia and intracranial hemorrhage. Patient is borderline tachycardic with a low normal blood pressure. Low suspicion for acute alcohol withdrawal at this time. He is not tremulous. Is given IV fluids in the emergency room. CBC shows a profound leukocytosis with a hemoglobin of 5.7 in addition he has thrombocytopenia with platelets of 50. This is megaloblastic anemia given his history of alcohol abuse question if this can be associated with B12/folic acid deficiency. Coags are normal. CMP shows mild transaminitis with a 2:1 ratio of AST to ALT. He has significant hyponatremia the sodium of 121, hypokalemia with a potassium of 2.9 and hypomagnesia with a level of 1.0. He started on replacement the emergency room. He is ordered 2 units of blood. Rectal exam is performed which is occult negative. Patient be admitted for electrolyte replacement as well as transfusion of blood products. I suspect this is all associated with his generalized weakness. CT of the brain is obtained which does not show any acute process. Chest x-ray and pelvic x-ray obtained given his fall. They reviewed by myself as well as radiology neither show any acute process. Case discussed with hospitalist, Dr. Lea for admission. He remains hemodynamically stable in the emergency room and given that he does not have any signs of active bleeding I feel that he is stable for admission to the PCU at this time. Chart review shows discharged home from 04/26/2024?at that time patient was admitted for severe anemia and possible colonic mass. He underwent EGD and colonoscopy which showed gastritis but no other acute process. He was transfused 2 units of blood during that time and his hemoglobin was stable. Lab Data Attestation: I reviewed the patient's lab results. Labs: Laboratory Results - last 24 hr 01/19/25 01/19/25 01/19/25 07:46 07:56 09:03 WBC 5.4 RBC 1.60 L Hgb 5.7 L* Hct 15.2 L MCV 95.0 H MCH 35.6 H MCHC 37.5 H RDW Std Deviation 46.5 H RDW Coeff of Adiel 13.6 Plt Count 50 L* MPV 11.5 Immature Gran % (Auto) 0.700 Neut % (Auto) 85.5 H Lymph % (Auto) 8.3 L Warren % (Auto) 4.4 Eos % (Auto) 0.9 Baso % (Auto) 0.2 Absolute Neuts (auto) 4.6 Absolute Lymphs (auto) 0.45 L Nucleated RBC % 0 Differential Comment COMMENT Platelet Estimate MKD DEC Anisocytosis 2+ PT 13.8 INR 1.0 APTT 35.9 Sodium 121 L Potassium 2.9 L Chloride 85 L Carbon Dioxide 15.7 L Anion Gap 20 H BUN 15 Creatinine 1.02 Estim Creat Clear Calc 74.13 Est GFR (MDRD) Non-Af 83 BUN/Creatinine Ratio 14.4 Glucose 118 H Calcium 7.8 Magnesium 1.0 L Total Bilirubin 0.61 AST 49 H ALT 21 Alkaline Phosphatase 93 Total Creatine Kinase 19 L Total Protein 6.5 Albumin 3.5 Globulin 3.0 Albumin/Globulin Ratio 1.2 Lipase 36 Ethyl Alcohol < 10.1 Blood Type A POSITIVE Antibody Screen NEGATIVE Crossmatch See Detail ABG Data ABG results: ABG 01/19/25 07:52 Specimen Type SAGRARIO Sample Site Not entered VBG pH 7.38 VBG pO2 81 H VBG HCO3 16 L VBG Total CO2 17 L VBG O2 Sat (Calc) 96 H VBG Base Excess -10 L POC Mix VBG pCO2 Pt Tmp 26.8 L O2 Delivery Device Not entered Radiography Chest X-Ray - ED: 1 View, Read by ED Physician, Read by Radiologist and No Acute Disease Diagnostic Testing: Clinical Impression(s) from Imaging Studies Pelvis X-Ray 01/19/25 07:31 IMPRESSION: No acute fracture or dislocation. Right hip replacement with femoral prosthesis partially imaged. Reading Location: [facility] Chest X-Ray 01/19/25 08:20 IMPRESSION: No evidence of acute disease. Reading Location: [facility] Brain CT 01/19/25 08:22 IMPRESSION: No intracranial hemorrhage, mass effect or calvarial fracture. Volume loss, atrophy appears moderate for age. Reading Location: [facility] Management Discussion w/another healthcare provider: Hospitalist Discharge Plan Triage Chief Complaint: Fall ED Provider: Milagro Sanders Dx/Rx/DC Orders Clinical Impression: Anemia, Acute hyponatremia, Acute hypokalemia, Hypomagnesemia, Weakness generalized Primary Care Provider: Emanuel Macedo Chi Disposition Disposition: Acute Care Hospital [facility]
[2025-01-19 07:55] LABS: Blood Gas Specimen Type VEN; O2 Delivery Device Not entered; SITE Not entered; VBG BASE EXCESS -10 mmol/L (-1.0-3.5); VBG Bicarbonate 16 mmol/L (22-26); VBG PO2 81 mmHg (25-40); VBG SO2 96 % (50-70); VBG TCO2 17 mmol/L (23-33); VBG pCO2 26.8 mmHg (41-51); VBG pH 7.38 (7.32-7.42)
--- NOTE | 2025-01-19 08:20 | RAD_ITS ---
PROCEDURE: CHEST 1 VIEW (PORTABLE) 01/19/2025 REASON FOR EXAM: WEAKNESS TECHNIQUE: Frontal view of the chest. COMPARISON: 04/21/2024 FINDINGS: The lungs appear clear. Pulmonary vascularity appears within limits. No pneumothorax or pleural effusion. The cardiac and mediastinal contours appear within limits. Atherosclerotic change at the aortic arch. Old right-sided rib fractures and right clavicle fracture deformity again noted. RAD/Chest 1 View (Portable) IMPRESSION: No evidence of acute disease. Reading Location: [id number]
[2025-01-19 08:21] LABS: Prothrombin Time (Protime)PT. 13.8 SECONDS (11.7-14.9)
[2025-01-19 08:22] LABS: Partial Thromboplast Time 35.9 Seconds (24.1-36.2)
--- NOTE | 2025-01-19 08:22 | CT_ITS ---
PROCEDURE: BRAIN/HEAD WITHOUT CONTRAST 01/19/2025 REASON FOR EXAM: WEAKNESS, FALL TECHNIQUE: Head CT without intravenous contrast. Coronal and Sagittal reconstruction series were provided. One or more dose reduction techniques were used (e.g., Automated exposure control, adjustment of the mA and/or kV according to patient size, use of iterative reconstruction technique. RADIATION DOSE SUMMARY: CTDlvol: 44.99 mGy DLP: 829.85 mGycm COMPARISON: None available FINDINGS: No intracranial hemorrhage, mass effect or calvarial fracture. The ventricles are within limits and midline. Volume loss, atrophy appears moderate for age. The visualized paranasal sinuses, mastoids and orbits appear within limits. CT/Brain/Head without Contrast IMPRESSION: No intracranial hemorrhage, mass effect or calvarial fracture. Volume loss, atrophy appears moderate for age. Reading Location: [id number]
[2025-01-19 08:26] LABS: Alcohol, Blood (Medical)-Serum < 10.1 mg/dL (<=10.0)
[2025-01-19 08:31] LABS: ALB/GLOB Ratio 1.2 RATIO (0.9-2.4); AST(SGOT) 49 U/L (<=37); Alanine Aminotransfer ALT/SGPT 21 U/L (<=46); Albumin, Serum 3.5 g/dL (3.4-4.8); Alkaline Phosphatase 93 U/L (40-129); Anion Gap 20 (5-15); BUN 15 mg/dL (4-19); BUN/Creat Ratio 14.4 RATIO (10-20); CPK Total, Creatine Kinase 19 U/L (24-195); Calcium,Total 7.8 mg/dL (7.6-11.0); Carbon Dioxide 15.7 mmol/L (21.0-32.0); Chloride 85 mmol/L (98-108); Creatinine, Serum 1.02 mg/dL (0.70-1.20); EST Glomerular Filtration Rate 83 (>60); Estimated Creatinine Clearance 74.13 ml/min (50-250); Glucose 118 mg/dL (70-99); Lipase 36 U/L (13-75); Potassium 2.9 mmol/L (3.3-5.1); Protein, Total 6.5 g/dL (5.9-8.4); Sodium Level 121 mmol/L (133-145); Total Bilirubin 0.61 mg/dL (0.00-1.30)
[2025-01-19 08:38] LABS: Absolute Lymphocyte Count 0.45 X10^3/uL (0.83-4.51); Absolute Neutrophil Count 4.6 X10^3/uL (2.0-7.7); Basophil# 0.01 X10^3/uL; Basophil% 0.2 % (0-1); Eosinophil# 0.05 X10^3/uL; Eosinophils% 0.9 % (0-5); Hematocrit 15.2 % (40-54); Lymphocyte # 0.45 X10^3/ul (0.83-4.51); Lymphocyte % 8.3 % (19-41); Mean Corp Hgb Conc 37.5 g/dL (32-36); Mean Corpuscular Hgb 35.6 pg (27.0-32.0); Mean Platelet Vol. 11.5 fl (6.2-12.0); Monocyte# 0.24 X10^3/uL; Monocyte% 4.4 % (0-10); NRBC Flagged by Analyzer 0 % (0-5); Neutrophil # 4.61 X10^3/uL (2.7-7.7); Neutrophil % 85.5 % (47-70); POSITIVE COUNT YES; POSITIVE DIFFERENTIAL YES; RBC Distribution Width CV 13.6 % (11.6-14.6); RBC Distribution Width SD 46.5 fl (35.1-43.9); White Blood Count 5.4 K/mm3 (4.4-11.0)
[2025-01-19 08:47] LABS: Differential Indicated SCAN CRITERIA MET; Hemoglobin 5.7 g/dL (13.0-16.5); Platelet Count 50 K/mm3 (150-450)
--- NOTE | 2025-01-19 08:47 | ED.RN ---
Critical lab results of Hgb 5.7 and platelets [address] Sanders notified.
[2025-01-19 09:31] LABS: Anisocytosis 2+; Platelet Estimate MKD DEC (ADEQ)
--- NOTE | 2025-01-19 10:32 | PCM.HP.STD ---
HPI - General General Date of Admission: 01/19/25 Date of Service: 01/19/25 Chief Complaint: Fall yesterday, severe anemia and thrombocytopenia. HPI Narrative KIM ESCALONA, is a 64 M with history of chronic alcohol use came to ED when he fell into the wall after losing balance. He landed on his buttocks but no major injury. For past 1 week he has been feeling very weak, unsteady gait, decreased appetite and energy. Denies syncope. No abdominal pain. In ED, patient was found to have severe anemia and thrombocytopenia and patient denies any external loss of blood including hematemesis melena hematochezia, hematuria, hemoptysis or major injury or hematoma. Patient also had recent EGD and colonoscopy which did not show any major cause of bleeding. Stool for occult blood in ED negative. BP low normal 107/67 with heart rate 96 per blood. 2 units of PRBC ordered and patient further admitted. Social history: Patient drinks vodka, 1/4th of 16 ounce glass and three fourths of water almost daily. He has been drinking alcohol for a long time. He smokes cigarettes. Was smoking 1 pack before and recently cut down to half pack per day. Denies [place] or other substance use [facility] Medical History Closed fracture of right hip Home Medications ?Medication ?Instructions ?Recorded ?Last Taken ?Type mirtazapine 7.5 mg tablet 7.5 mg PO QHS mental health 04/21/24 01/18/25 History pantoprazole 40 mg tablet,delayed 40 mg PO DAILY #30 tabs 04/26/24 Unknown Rx release (Protonix) ascorbic acid (vitamin C) 500 mg 500 mg PO DAILY 01/19/25 Unknown History tablet losartan 100 mg tablet 100 mg PO QHS 01/19/25 Unknown History Allergy/AdvReac Type Severity Reaction Status Date / Time No Known Allergies Allergy Verified 08/16/23 05:09 Surgical History S/P total hip arthroplasty Hx of neck surgery Social History Smoking Status: Current some day smoker tobacco type: cigarettes alcohol intake: current alcohol intake frequency: a few times a week substance use type: does not use ROS ROS Narrative Constitutional: Reports fatigue and weakness. Loss of appetite. No fever. HEENT: Reports systems reviewed and no addt'l complaints, except as documented Respiratory/Chest: No acute shortness of breath or respiratory distress or wheezing. CVS: Denies chest pain or shortness of breath. Gastrointestinal: Denies coffee ground emesis, hematemesis or vomiting Genitourinary: Denies burning urination or new urinary tract symptoms Musculoskeletal: Had right hip surgery in the past. Decreased lower extremity strength and balance. Fall Neurologic: Denies seizure-like symptoms. skin: No ulcer. No rash Endocrinology: Reports systems reviewed and no addt'l complaints, except as documented Hematologic/Lymphatic: Reports systems reviewed and no addt'l complaints, except as documented Rest 14 ROS are negative except as mentioned in HPI Vital Signs Vital Signs Vital Signs: 01/19/25 07:21 01/19/25 07:26 Temperature 97.8 F Temperature Source Oral Pulse Rate 96 Respiratory Rate 15 Respiratory Effort Normal Respiratory Depth Normal Respiratory Pattern Normal Blood Pressure 107/67 Blood Pressure Mean 80 Oxygen Delivery Method Room Air Weight Weight: 158 lb 11.725 oz Body Mass Index (BMI) 23.4 Physical Exam Narrative General: Alert, Oriented x3, Cooperative HEENT: Pale conjunctiva. Atraumatic, PERRLA, EOMI, Normocephalic. Oral: Oral mucosa dry. No Gingival or Mucosal Lesions/ Ulcerations Neck: Supple, No JVD, Negative Carotid Bruits Chest wall/Lungs: Air entry diminished in bilateral lung bases. Mild bilateral expiratory rhonchi Cardiovascular: Regular rate and rhythm, Normal S1,S2, No M/G/R Abdomen: Bowel Sounds Present, Soft, Non Tender, Non-Distended : No dysuria. No renal angle tenderness. No suprapubic tenderness. Extremities: No edema, Capillary Refill Less than 3 Seconds Skin: No rashes, No breakdown Musculoskeletal: Muscle strength 4+/5 at hips and knee joints bilaterally. ROM fully intact. No Tenderness to Palpation of Joints or Extremities Neurological: Cranial nerves II-XII grossly intact, DTR 2+/4. No acute focal neurological deficit. Psych/Mental Status: Normal Affect, Appropriate. Results Lab / Micro Data 01/19/25 07:56 01/19/25 07:56 Labs: Laboratory Results - last 24 hr 01/19/25 07:46: Ethyl Alcohol < 10.1 01/19/25 07:56: WBC 5.4, RBC 1.60 L, Hgb 5.7 L*, Hct 15.2 L, MCV 95.0 H, MCH 35.6 H, MCHC 37.5 H, RDW Std Deviation 46.5 H, RDW Coeff of Adiel 13.6, Plt Count 50 L*, MPV 11.5, Immature Gran % (Auto) 0.700, Neut % (Auto) 85.5 H, Lymph % (Auto) 8.3 L, [place]ockley % (Auto) 4.4, Eos % (Auto) 0.9, Baso % (Auto) 0.2, Absolute Neuts (auto) 4.6, Absolute Lymphs (auto) 0.45 L, Nucleated RBC % 0, Differential Comment COMMENT, Platelet Estimate MKD DEC, Anisocytosis 2+, PT 13.8, INR 1.0, APTT 35.9, Sodium 121 L, Potassium 2.9 L, Chloride 85 L, Carbon Dioxide 15.7 L, Anion Gap 20 H, BUN 15, Creatinine 1.02, Estim Creat Clear Calc 74.13, Est GFR (MDRD) Non-Af 83, BUN/Creatinine Ratio 14.4, Glucose 118 H, Calcium 7.8, Magnesium 1.0 L, Total Bilirubin 0.61, AST 49 H, ALT 21, Alkaline Phosphatase 93, Total Creatine Kinase 19 L, Total Protein 6.5, Albumin 3.5, Globulin 3.0, Albumin/Globulin Ratio 1.2, Lipase 36 01/19/25 09:03: Blood Type A POSITIVE, Antibody Screen NEGATIVE, Crossmatch See Detail Micro: Microbiology 01/19/25 09:16 Stool Stool Occult Blood (MARIZOL) - Final ABG Data ABG results: ABG 01/19/25 07:52 Specimen Type SAGRARIO Sample Site Not entered VBG pH 7.38 VBG pO2 81 H VBG HCO3 16 L VBG Total CO2 17 L VBG O2 Sat (Calc) 96 H VBG Base Excess -10 L POC Mix VBG pCO2 Pt Tmp 26.8 L O2 Delivery Device Not entered Imaging Radiology Impression Pelvis X-Ray 01/19/25 07:31 IMPRESSION: No acute fracture or dislocation. Right hip replacement with femoral prosthesis partially imaged. Reading Location: [facility] Chest X-Ray 01/19/25 08:20 IMPRESSION: No evidence of acute disease. Reading Location: [facility] Brain CT 01/19/25 08:22 IMPRESSION: No intracranial hemorrhage, mass effect or calvarial fracture. Volume loss, atrophy appears moderate for age. Reading Location: [facility] Assessment & Plan Assessment/Plan (1) Chronic hyponatremia: PLAN: Plan This 64-year-old gentleman being admitted for severe generalized weakness, gait instability for 1 that, fall today and found severe anemia thrombocytopenia in ED 1. Severe anemia and thrombocytopenia probably due to chronic alcoholism/BM suppression:. H&H 5.7/15%. Platelet count 50,000. MCV 95. RDW 13.6. ALC low, lymphopenia. stool for occult blood negative. Units of PRBC ordered. Reticulocyte panel, LDH, haptoglobin ordered. TSH, B12 and folic acid ordered. Patient was last admitted in April 2020 for advanced hide EGD and colonoscopy as mentioned below EGD on 04/2024 Impressions : - No gross lesions in the duodenal bulb, in the first portion of the duodenum and in the second portion of the duodenum. No specimens collected. - Gastritis. Biopsied. - Small hiatal hernia. No specimens collected. - Z-line regular, 38 cm from the incisors. Biopsied. - The examination was otherwise normal. Patient was prescribed sucralfate twice daily and PPI Pathology shows mild gastritis, GE junction, chronic inflammation but negative for metaplasia.Negative for H. pylori Colonoscopy 05/04/2024 Impression: - Nodular mucosa at the appendiceal orifice. Biopsied. - Tortuous colon. No specimens collected. - Diverticulosis in the sigmoid colon. No specimens collected. - The examination was otherwise normal on direct and retroflexion views. 2. Fall, generalized weakness, ambulatory dysfunction: PT and OT ordered. CK is low suggestive of low muscle mass. AST 49 probably from chronic alcohol use. ALT normal. 3. Severe hypokalemia and hypomagnesemia: IV potassium and magnesium replacement ordered. Serum phosphorus ordered. 4. Acute on chronic hyponatremia: Serum sodium was 126 in August 2024. Today 121. Rapidly related to chronic alcohol use with decreased solute intake. IV normal saline ordered 5. Increased anion gap metabolic acidosis: Bicarb is low at about 15.8, anion gap 20. But venous pH is normal 7.38 with with total CO2 17. Mixed pCO2 26.8. Hard to interpret rate with venous ABG. Seems most likely due to alcoholic ketoacidosis. 6. Right subcrepitant fracture in August 2023 when he had right total hip replacement then. No acute issues 7. Chronic cigarette smoking and chronic alcohol use dependence, [facility] 24-hour monitoring ordered. 8. DVT prophylaxis: Pharmacological prophylaxis contraindicated. Bilateral SCDs Living will/advanced directive/end of life care: Patient does not have living will or advanced directive. He does not have dilated power of ribbon winder for health. After discussion of benefits/risks procedures involved with full code, DNR CC arrest and DNR CC, the patient opted for DNR CC arrest with no intubation Patient doesn't want artificial life support including intubation, tube feed, ventilator and/chest compression, central venous catheter, vasopressor and DC shock if needed Total time spent in [id number] encounter in discussion of advanced directive 17 minutes. Microbiology Past 72 Hours 01/19/25 09:16 Stool Stool Occult Blood (MARIZOL) - Final Laboratory Results 01/19/25 07:46: Ethyl Alcohol < 10.1 01/19/25 07:52: Specimen Type SAGRARIO, Sample Site Not entered, VBG pH 7.38, VBG pO2 81 H, VBG HCO3 16 L, VBG Total CO2 17 L, VBG O2 Sat (Calc) 96 H, VBG Base Excess -10 L, POC Mix VBG pCO2 Pt Tmp 26.8 L, O2 Delivery Device Not entered 01/19/25 07:56: WBC 5.4, RBC 1.60 L, Hgb 5.7 L*, Hct 15.2 L, MCV 95.0 H, MCH 35.6 H, MCHC 37.5 H, RDW Std Deviation 46.5 H, RDW Coeff of Adiel 13.6, Plt Count 50 L*, MPV 11.5, Immature Gran % (Auto) 0.700, Neut % (Auto) 85.5 H, Lymph % (Auto) 8.3 L, Hockley % (Auto) 4.4, Eos % (Auto) 0.9, Baso % (Auto) 0.2, Absolute Neuts (auto) 4.6, Absolute Lymphs (auto) 0.45 L, Nucleated RBC % 0, Differential Comment COMMENT, Platelet Estimate MKD DEC, Anisocytosis 2+, PT 13.8, INR 1.0, APTT 35.9, Sodium 121 L, Potassium 2.9 L, Chloride 85 L, Carbon Dioxide 15.7 L, Anion Gap 20 H, BUN 15, Creatinine 1.02, Estim Creat Clear Calc 74.13, Est GFR (MDRD) Non-Af 83, BUN/Creatinine Ratio 14.4, Glucose 118 H, Calcium 7.8, Magnesium 1.0 L, Total Bilirubin 0.61, AST 49 H, ALT 21, Alkaline Phosphatase 93, Total Creatine Kinase 19 L, Total Protein 6.5, Albumin 3.5, Globulin 3.0, Albumin/Globulin Ratio 1.2, Lipase 36 01/19/25 09:03: Blood Type A POSITIVE, Antibody Screen NEGATIVE, Crossmatch See Detail Charges/Coding Visit Charges Inpatient E&M: 33854 Init Hosp L3 Procedures Hospitalists Procedures: 06022 Advncd Care Plan 30 Min
[2025-01-19] MEDS: Potassium Chloride 10mEq/100mL 10 MEQ/100 ML IV.SOLN. 100 MEQ IV BOLUS ×2 (10:43→15:27)
[2025-01-19 11:02] LABS: Bacteria 0 SEEN /hpf (None Seen); Mucous, Urine 0 SEEN /hpf (<or=2+); Red Blood Cells-Urine 0 SEEN /hpf (0-5); White Blood Cells 0 SEEN /hpf (0-5)
[2025-01-19 11:16] LABS: Color, Urine Yellow (Yellow); Glucose, Dipstick Normal (Normal); Ketone-Dipstick 50 mg/dl (Negative); Leukocyte Esterase-Dipstick Negative /ul (Negative); Nitrite-Dipstick Negative (Negative); Occult Blood-Urine Negative /ul (Negative); Protein-Dipstick 30 mg/dl (Negative); Specific Gravity, Urine 1.005 (1.002-1.030); Urine Bilirubin Dipstick Negative (Negative); Urine Clarity Clear (Clear); Urine Urobilinogen 1 mg/dl (Normal)
[2025-01-19 11:29] LABS: Squamous Epithelial Cells - UA 0-5 SEEN /hpf (0-5)
[2025-01-19] MEDS: Pantoprazole Sodium 40 MG in 0.9% Normal Saline (100mL MB+) 100 ML 330 MG IV (14:21)
[2025-01-19] MEDS: Magnesium Sulfate 4gm/100mL 4 GM/100 ML IV.SOLN. IV (15:25)
[2025-01-19 15:41] LABS: Immature Platelet Fraction 4.7 % (1.0-7.9); Platelet Count 51 K/mm3 (150-450); RET-HE 35.9 pg (30-35); Reticulocyte Count 0.26 % (0.5-1.5)
[2025-01-19] MEDS: KCl 20MEQ in D5NS 20 MEQ/1,000 ML IV.SOLN. 75 MEQ IV (17:32)
[2025-01-19 18:06] LABS: Phosphorus 1.5 mg/dL (2.7-4.5)
[2025-01-19 18:19] LABS: LDH 191 U/L (87-241)
[2025-01-19 19:10] LABS: Hematocrit 22.4 % (40-54); Hemoglobin 8.3 g/dL (13.0-16.5)
[2025-01-19] MEDS: Ensure Plus High Protein 120 ML LIQUID PO (20:11)
[2025-01-19 21:23] LABS: Anion Gap 19 (5-15); BUN 16 mg/dL (4-19); BUN/Creat Ratio 15.8 RATIO (10-20); Calcium,Total 7.6 mg/dL (7.6-11.0); Carbon Dioxide 14.5 mmol/L (21.0-32.0); Chloride 89 mmol/L (98-108); EST Glomerular Filtration Rate 85 (>60); Estimated Creatinine Clearance 78.07 ml/min (50-250); Glucose 142 mg/dL (70-99); Potassium 3.1 mmol/L (3.3-5.1); Sodium Level 122 mmol/L (133-145)
[2025-01-19] MEDS: Mirtazapine 15 MG Tablet 7.5 MG PO (22:58)
[2025-01-20] VITALS (9 sets, daily range): BP systolic 99–125; BP diastolic 73–85; PULSE 75–90; RESP 16–18; TEMP 36.4–37.1; O2SAT 96–100; BMI 23.6
[2025-01-20 06:17] LABS: Hematocrit 19.8 % (40-54); Hemoglobin 7.5 g/dL (13.0-16.5); Mean Corp Hgb Conc 37.9 g/dL (32-36); Mean Corpuscular Hgb 32.9 pg (27.0-32.0); Mean Corpuscular Volume 86.8 fL (80-94); Mean Platelet Vol. 10.5 fl (6.2-12.0); POSITIVE COUNT YES; Platelet Count 32 K/mm3 (150-450); RBC Distribution Width CV 17.9 % (11.6-14.6); RBC Distribution Width SD 56.9 fl (35.1-43.9); Red Blood Count 2.28 M/mm3 (4.6-6.2); White Blood Count 2.2 K/mm3 (4.4-11.0)
[2025-01-20 06:45] LABS: ALB/GLOB Ratio 1.2 RATIO (0.9-2.4); AST(SGOT) 51 U/L (<=37); Alanine Aminotransfer ALT/SGPT 16 U/L (<=46); Albumin, Serum 3.1 g/dL (3.4-4.8); Alkaline Phosphatase 76 U/L (40-129); Anion Gap 14 (5-15); BUN 15 mg/dL (4-19); BUN/Creat Ratio 16.4 RATIO (10-20); Calcium,Total 7.5 mg/dL (7.6-11.0); Carbon Dioxide 16.2 mmol/L (21.0-32.0); Chloride 93 mmol/L (98-108); Creatinine, Serum 0.92 mg/dL (0.70-1.20); EST Glomerular Filtration Rate 93 (>60); Estimated Creatinine Clearance 84.86 ml/min (50-250); Globulin 2.5 g/dL (2.2-4.2); Glucose 153 mg/dL (70-99); Protein, Total 5.6 g/dL (5.9-8.4); Sodium Level 124 mmol/L (133-145); Total Bilirubin 1.36 mg/dL (0.00-1.30); Vitamin B12 418 pg/mL (180-914)
[2025-01-20 07:22] LABS: Scan Indicated on CBC? Y/N YES- FLAGS NOTED
[2025-01-20] MEDS: Pantoprazole Sodium 40 MG Tablet PO (07:40)
--- NOTE | 2025-01-20 10:14 | PCM.PN.HOSP ---
Reason for Visit Reason for Visit: Diagnoses Hypo-osmolality and hyponatremia (01/19/25) Objective Data Objective Data Vital Signs: Vital Signs Temp Pulse Resp BP Pulse Ox O2 Del Method 98.1 F 81 18 125/77 H 100 Room Air 01/20/25 08:10 01/20/25 08:10 01/20/25 08:10 01/20/25 08:10 01/20/25 08:10 01/20/25 08:10 Oxygen Delivery Method Room Air Weight: 165 lb 2.02 oz Body Mass Index (BMI) 23.6 Intake & Output: Intake and Output for Last 24 Hours 01/18/25 01/19/25 01/20/25 23:59 23:59 23:59 Intake Total 2260 / 2260 1000 / 1000 Output Total 700 / 700 Balance 2260 / 2260 300 / 300 Lab / Micro Data 01/20/25 05:28 01/20/25 05:28 Labs: Laboratory Results - last 24 hr 01/19/25 07:56: Immature Plt Fraction 4.7, Retic Count 0.26 L, Immature Retic Fraction 6.60, Retic Hgb Equivalent 35.9 H 01/19/25 09:03: Blood Type A POSITIVE, Antibody Screen NEGATIVE, Crossmatch See Detail 01/19/25 10:57: Urine Color Yellow, Urine Clarity Clear, Urine pH 7.0, Ur Specific [place] 1.005, Urine Protein 30 H, Urine Glucose (UA) Normal, Urine Ketones 50 H, Urine Occult Blood Negative, Urine Nitrite Negative, Urine Bilirubin Negative, Urine Urobilinogen 1 H, Ur Leukocyte Esterase Negative, Urine RBC 0 SEEN, Urine WBC 0 SEEN, Ur Squamous Epith Cells 0-5 SEEN, Urine Bacteria 0 SEEN, Urine Mucus 0 SEEN 01/19/25 17:10: Phosphorus 1.5 L, Lactate Dehydrogenase 191, b-Hydroxybutyric mmol/L 3.0, Direct Antiglob Test NEG w/POLYSPECIFIC 01/19/25 17:15: Hgb 8.3 L, Hct 22.4 L 01/19/25 20:35: Sodium 122 L, Potassium 3.1 L, Chloride 89 L, Carbon Dioxide 14.5 L, Anion Gap 19 H, BUN 16, Creatinine 1.00, Estim Creat Clear Calc 78.07, Est GFR (MDRD) Non-Af 85, BUN/Creatinine Ratio 15.8, Glucose 142 H, Calcium 7.6 01/20/25 05:28: WBC 2.2 L, RBC 2.28 L, Hgb 7.5 L, Hct 19.8 L, MCV 86.8 D, MCH 32.9 H, MCHC 37.9 H, RDW Std Deviation 56.9 H, RDW Coeff of Adiel 17.9 H, Plt Count 32 L*, MPV 10.5, Sodium 124 L, Potassium 3.0 L, Chloride 93 L, Carbon Dioxide 16.2 L, Anion Gap 14, BUN 15, Creatinine 0.92, Estim Creat Clear Calc 84.86, Est GFR (MDRD) Non-Af 93, BUN/Creatinine Ratio 16.4, Glucose 153 H, Calcium 7.5 L, Total Bilirubin 1.36 H, AST 51 H, ALT 16, Alkaline Phosphatase 76, Total Protein 5.6 L, Albumin 3.1 L, Globulin 2.5, Albumin/Globulin Ratio 1.2, Vitamin B12 418, TSH 2.000 Micro: Microbiology 01/19/25 09:16 Stool Stool Occult Blood (MARIZOL) - Final Physical Exam Narrative Patient is still symptomatic with shortness of breath on exertion, fatigue. Hemoglobin 7.5 along with pancytopenia and therefore 1 unit of PRBC ordered. Electrolytes are low Physical exam General: Alert, Oriented x3, Cooperative HEENT: Pale conjunctiva. Atraumatic, PERRLA, EOMI, Normocephalic. Oral: Oral mucosa dry. No Gingival or Mucosal Lesions/ Ulcerations Neck: Supple, No JVD, Negative Carotid Bruits Chest wall/Lungs: Air entry diminished in bilateral lung bases. Lungs clear. Cardiovascular: Regular rate and rhythm, Normal S1,S2, No M/G/R Abdomen: Bowel Sounds Present, Soft, Non Tender, Non-Distended : No dysuria. No renal angle tenderness. No suprapubic tenderness. Extremities: No edema, Capillary Refill Less than 3 Seconds Skin: No rashes, No breakdown Musculoskeletal: Muscle strength 4+/5 at hips and knee joints bilaterally. ROM fully intact. No Tenderness to Palpation of Joints or Extremities Neurological: Cranial nerves II-XII grossly intact, DTR 2+/4. No acute focal neurological deficit. Psych/Mental Status: Normal Affect, Appropriate. Assessment & Plan Assessment/Plan (1) Chronic hyponatremia: PLAN: Plan This 64-year-old gentleman being admitted for severe generalized weakness, gait instability for 1 that, fall today and found severe anemia thrombocytopenia in ED 1. Severe anemia and thrombocytopenia probably due to chronic alcoholism/BM suppression:. H&H 5.7/15%. Platelet count 50,000. MCV 95. RDW 13.6. ALC low, lymphopenia. stool for occult blood negative. Units of PRBC ordered. Reticulocyte panel, LDH, haptoglobin ordered. TSH, B12 and folic acid ordered. Patient was last admitted in April 2020 for advanced hide EGD and colonoscopy as mentioned below EGD on 04/2024 Impressions : - No gross lesions in the duodenal bulb, in the first portion of the duodenum and in the second portion of the duodenum. No specimens collected. - Gastritis. Biopsied. - Small hiatal hernia. No specimens collected. - Z-line regular, 38 cm from the incisors. Biopsied. - The examination was otherwise normal. Patient was prescribed sucralfate twice daily and PPI Pathology shows mild gastritis, GE junction, chronic inflammation but negative for metaplasia.Negative for H. pylori Colonoscopy 05/04/2024 Impression: - Nodular mucosa at the appendiceal orifice. Biopsied. - Tortuous colon. No specimens collected. - Diverticulosis in the sigmoid colon. No specimens collected. - The examination was otherwise normal on direct and retroflexion views. 01/20: Reticulocyte panel shows low reticulocyte count suggestive of bone marrow suppression/no production. Pancytopenia. H&H 7.5/19%. Platelet count 32K, WBC 2.2K. 1 unit of PRBC ordered as patient is symptomatic with dyspnea on exertion. B12 normal. Folic acid low. TSH normal. Advised to follow-up in hematology clinic. Started on thiamine and folic acid. 2. Fall, generalized weakness, ambulatory dysfunction: PT and OT ordered. CK is low suggestive of low muscle mass. AST 49 probably from chronic alcohol use. ALT normal. 3. Severe hypokalemia and hypomagnesemia: IV potassium and magnesium replacement ordered. Serum phosphorus ordered. 01/20: Serum phosphorus level very low at 0.7. Still has hypokalemia. Magnesium normal. IV phosphate ordered. 01/20: 4. Acute on chronic hyponatremia: Serum sodium was 126 in August 2024. Today 121. Rapidly related to chronic alcohol use with decreased solute intake. IV normal saline ordered 5. Increased anion gap metabolic acidosis: Bicarb is low at about 15.8, anion gap 20. But venous pH is normal 7.38 with with total CO2 17. Mixed pCO2 26.8. Hard to interpret rate with venous ABG. Seems most likely due to alcoholic ketoacidosis. 01/20: Bicarb 16, anion gap 14. Anion gap seems elevated as expected anion gap of albumin 3.1 about 9-10. Started on sodium bicarbonate tablet. 6. Right subcrepitant fracture in August 2023 when he had right total hip replacement then. No acute issues 7. Chronic cigarette smoking and chronic alcohol use dependence, [facility] 24-hour monitoring ordered. 8. DVT prophylaxis: Pharmacological prophylaxis contraindicated. Bilateral SCDs Living will/advanced directive/end of life care: Patient does not have living will or advanced directive. He does not have dilated power of defense attorney for health. After discussion of benefits/risks procedures involved with full code, DNR CC arrest and DNR CC, the patient opted for DNR CC arrest with no intubation Patient doesn't want artificial life support including intubation, tube feed, ventilator and/chest compression, central venous catheter, vasopressor and DC shock if needed Total time spent in [id number] encounter in discussion of advanced directive 17 minutes. Microbiology Past 72 Hours 01/19/25 09:16 Stool Stool Occult Blood (MARIZOL) - Final Laboratory Results 01/19/25 09:03: Crossmatch See Detail 01/19/25 09:03: Crossmatch See Detail 01/19/25 17:10: Haptoglobin Pending, Phosphorus 1.5 L, GGT Pending, Lactate Dehydrogenase 191, b-Hydroxybutyric mmol/L 3.0, Direct Antiglob Test NEG w/POLYSPECIFIC 01/19/25 17:15: Hgb 8.3 L, Hct 22.4 L 01/19/25 20:35: Sodium 122 L, Potassium 3.1 L, Chloride 89 L, Carbon Dioxide 14.5 L, Anion Gap 19 H, BUN 16, Creatinine 1.00, Estim Creat Clear Calc 78.07, Est GFR (MDRD) Non-Af 85, BUN/Creatinine Ratio 15.8, Glucose 142 H, Calcium 7.6 01/20/25 05:28: WBC 2.2 L, RBC 2.28 L, Hgb 7.5 L, Hct 19.8 L, MCV 86.8 D, MCH 32.9 H, MCHC 37.9 H, RDW Std Deviation 56.9 H, RDW Coeff of Adiel 17.9 H, Plt Count 32 L*, MPV 10.5, Sodium 124 L, Potassium 3.0 L, Chloride 93 L, Carbon Dioxide 16.2 L, Anion Gap 14, BUN 15, Creatinine 0.92, Estim Creat Clear Calc 84.86, Est GFR (MDRD) Non-Af 93, BUN/Creatinine Ratio 16.4, Glucose 153 H, Calcium 7.5 L, Phosphorus 0.7 L*, Magnesium 1.8, Total Bilirubin 1.36 H, AST 51 H, ALT 16, Alkaline Phosphatase 76, Total Protein 5.6 L, Albumin 3.1 L, Globulin 2.5, Albumin/Globulin Ratio 1.2, Vitamin B12 418, Serum Folate 3.23 L, TSH 2.000 Charges/Coding Visit Charges Inpatient E&M: 43134 Subs Hosp L2
[2025-01-20] MEDS: Senna/Docusate Sodium 1 Tablet 2 TABLET PO (14:20)
[2025-01-20 14:37] LABS: Magnesium 1.8 mg/dL (1.5-2.2); Phosphorus 0.7 mg/dL (2.7-4.5)
[2025-01-20 14:51] LABS: FOLATES,SERUM (FOLIC ACID) 3.23 ng/mL (4.60-34.80)
[2025-01-20] MEDS: Ensure Plus High Protein 120 ML LIQUID PO ×3 (14:51→22:58)
[2025-01-20] MEDS: Sodium Chloride 1 GM Tablet 2 GM PO (14:51)
[2025-01-20] MEDS: Na Biphos/Potassium Phosphate PACKET 1 PACKET PO (14:51)
[2025-01-20] MEDS: Sodium Bicarbonate 650 MG Tablet PO ×2 (16:57→22:57)
[2025-01-20] MEDS: Magnesium Chloride 64 MG Delay Rel.Tablet 128 MG PO ×2 (16:57→22:57)
[2025-01-20] MEDS: Thiamine Hydrochloride 100 MG Tablet PO (16:57)
[2025-01-20] MEDS: Folic Acid 1 MG Tablet PO (16:58)
[2025-01-20] MEDS: Potassium Phosphate 30 MM in 0.9% Normal Saline (250mL Bag) 250 ML 42 MM IV (16:58)
[2025-01-20] MEDS: Mirtazapine 15 MG Tablet 7.5 MG PO (22:57)
[2025-01-21 04:07] LABS: GGTP 31 IU/L (0-65)
[2025-01-21 04:45] VITALS: BP 108/80; PULSE 89; RESP 16; TEMP 36.6; O2SAT 100
[2025-01-21 04:51] LABS: Absolute Lymphocyte Count 0.48 X10^3/uL (0.83-4.51); Absolute Neutrophil Count 1.5 X10^3/uL (2.0-7.7); Basophil# 0.02 X10^3/uL; Basophil% 0.9 % (0-1); Eosinophil# 0.03 X10^3/uL; Eosinophils% 1.3 % (0-5); Hematocrit 22.8 % (40-54); Hemoglobin 8.4 g/dL (13.0-16.5); Lymphocyte # 0.48 X10^3/ul (0.83-4.51); Lymphocyte % 21.4 % (19-41); Mean Corp Hgb Conc 36.8 g/dL (32-36); Mean Corpuscular Hgb 32.2 pg (27.0-32.0); Mean Corpuscular Volume 87.4 fL (80-94); Mean Platelet Vol. 10.2 fl (6.2-12.0); Monocyte# 0.18 X10^3/uL; NRBC Flagged by Analyzer 0 % (0-5); Neutrophil # 1.51 X10^3/uL (2.7-7.7); Neutrophil % 67.5 % (47-70); POSITIVE COUNT YES; POSITIVE DIFFERENTIAL YES; RBC Distribution Width CV 17.9 % (11.6-14.6); RBC Distribution Width SD 56.9 fl (35.1-43.9); Red Blood Count 2.61 M/mm3 (4.6-6.2); White Blood Count 2.2 K/mm3 (4.4-11.0)
[2025-01-21 05:07] LABS: Haptoglobin 127 mg/dL (32-363)
[2025-01-21 05:21] LABS: ALB/GLOB Ratio 1.1 RATIO (0.9-2.4); AST(SGOT) 37 U/L (<=37); Alanine Aminotransfer ALT/SGPT 13 U/L (<=46); Alkaline Phosphatase 79 U/L (40-129); Anion Gap 11 (5-15); BUN 14 mg/dL (4-19); BUN/Creat Ratio 14.7 RATIO (10-20); Calcium,Total 7.8 mg/dL (7.6-11.0); Chloride 100 mmol/L (98-108); Creatinine, Serum 0.93 mg/dL (0.70-1.20); EST Glomerular Filtration Rate 92 (>60); Estimated Creatinine Clearance 83.95 ml/min (50-250); Globulin 2.7 g/dL (2.2-4.2); Glucose 114 mg/dL (70-99); Phosphorus 2.7 mg/dL (2.7-4.5); Potassium 3.2 mmol/L (3.3-5.1); Protein, Total 5.7 g/dL (5.9-8.4); Sodium Level 129 mmol/L (133-145); Total Bilirubin 0.59 mg/dL (0.00-1.30)
[2025-01-21 05:22] LABS: Differential Indicated SCAN CRITERIA MET; Platelet Count 30 K/mm3 (150-450)
[2025-01-21 05:25] VITALS: BMI 24.1
[2025-01-21 08:20] LABS: Acanthocytes 1+; Anisocytosis 1+; Ovalocyte 1+; Platelet Estimate MKD DEC (ADEQ)
[2025-01-21 10:27] VITALS: BP 117/82; PULSE 81; RESP 16; TEMP 36.3; O2SAT 100
[2025-01-21] MEDS: Pantoprazole Sodium 40 MG Tablet PO (10:30)
[2025-01-21] MEDS: Ensure Plus High Protein 120 ML LIQUID PO ×3 (10:30→21:09)
[2025-01-21] MEDS: Sodium Bicarbonate 650 MG Tablet PO ×4 (10:30→21:10)
[2025-01-21] MEDS: Magnesium Chloride 64 MG Delay Rel.Tablet 128 MG PO ×2 (10:30→21:10)
[2025-01-21] MEDS: Folic Acid 1 MG Tablet PO (10:31)
[2025-01-21] MEDS: Thiamine Hydrochloride 100 MG Tablet PO (10:31)
[2025-01-21] MEDS: Potassium Chloride Oral Tablet 20 MEQ 40 MEQ PO ×3 (10:36→21:09)
--- NOTE | 2025-01-21 10:41 | RAD_ITS ---
EXAM: XR Right Foot Complete, 3 or More Views CLINICAL INDICATION: PAIN IN BIG TOES AND ANKLES TECHNIQUE: Frontal, lateral and oblique views of the right foot. COMPARISON: No relevant prior studies available. FINDINGS: BONES/JOINTS: Moderate degenerative changes of the PIP joints. SOFT TISSUES: Soft tissue swelling without acute fracture. No radiopaque foreign body. OTHER FINDINGS: Suboptimal exam secondary to underpenetration. Parasertovalery. RAD/Foot min 3 Views IMPRESSION: 1. Soft tissue swelling without acute fracture. 2. If symptoms persist, repeat radiograph in 10-14 days recommended. 3. Degenerative changes as above. Reading Location: [facility]
--- NOTE | 2025-01-21 11:00 | RAD_ITS ---
EXAM: XR Left Foot Complete, 3 or More Views CLINICAL INDICATION: PAIN IN BIG TOES AND ANKLES TECHNIQUE: Frontal, lateral and oblique views of the left foot. COMPARISON: No relevant prior studies available. FINDINGS: BONES/JOINTS: Mild degenerative changes of the PIP joints. Mild degenerative changes of the intertarsal joints. SOFT TISSUES: Soft tissue swelling without acute fracture. No radiopaque foreign body. OTHER FINDINGS: Hammertoes. RAD/Foot min 3 Views IMPRESSION: 1. Soft tissue swelling without acute fracture. 2. If symptoms persist, repeat radiograph in 10-14 days recommended. [facility]
--- NOTE | 2025-01-21 12:13 | CASEMGMT ---
LESA SUMMERS Assessment: Face to Face with pt for initial transition planning/care coordination assessment. LESA SUMMERS introduced self and role at [facility], pt voices understanding and consents to assessment. Pt is A&O x4 and answers all questions appropriately at this time. Pt lying in bed in no distress. Care providers, pharmacy, and demographics verified/updated. Strata: 2 Admitting Dx: Severe Hyponatremia PCP: [facility] Specialists: Denies Preferred Pharmacy: [facility] Insurance: [employer] Prescription Benefit: yes LNOK: Friend, Joelle; Friend, Abril Living Arrangements: Pt lives on the main level of a 2 story home, friend lives on the second story. Home has 3 steps with handrails to enter. ADLs: Pt states I at baseline. Transportation: Pt drives self and denies concerns with transportation. DME: [employer], [employer] HHC/SNF:Denies Hx of. Pt states he has progressively been getting worse and does not feel he can manage at home at time of dc. Pt states This morning it took 2 staff to help me get from my bed to the toilet, I'm getting weaker. LESA SUMMERS discussed SNF with Pt, pt agreeable to going somewhere for therapy. LESA SUMMERS made SW on the unit aware of pt desire to go to SNF and would like a list of local places covered by his insurance. Pt states no further concerns/needs. SW/CM to follow. Advised pt to ask CM if any further question/concerns/needs arise, voices understanding. Pt Goal: SNF Plan: SNF, Follow therapy recommendations. Pavel MCFADDEN CM
--- NOTE | 2025-01-21 13:01 | CASEMGMT ---
SW was informed patient would like to go to a residential facility for rehab. SW met with patient. Introduced self and role at [facility]. Patient confirmed he would like to go to a SNF. SW provided patient with a list of? providers including quality and resource use data and consistent with patient?s preferred geographic region, medical needs, and insurance network were provided from the [employer]. SW explained to patient that SW needs him to review the list and cinthia his top 3-4 choices. SW will then take care of contacting the facilities. Patient verbalized understanding. Mey GARCIA
[2025-01-21 13:28] LABS: Uric Acid 5.5 mg/dL (3.5-7.2)
--- NOTE | 2025-01-21 14:26 | CHAPLAIN ---
Type of Pastoral Visit _x__ Initial Visit ___ Follow-up Visit ___ On-call Visit ___ General Patient Visit ___ Spiritual Assessment ___ Family Conference ___ Bereavement ___ Rapid Response ___ Code Blue ___ Other (describe below) Pastoral Care Referral From _x__ Patient ___ Family ___ Nurse ___ Physician ___ Supervisor Channel Process ___ Spray Stainer ___ Other (describe below) Sacrament/Intervention _x__ Active listening ___ Anointing ___ Jain ___ Bereavement ___ Communion _x__ Marisela exploration ___ _x__ Life review _x__ Prayer ___ Reconciliation ___ Sacrament of Sick _x__ Supportive presence ___ Wedding ___ Other (describe below) Pastoral Comments patient is expressive about his pain, discomfort, and inability to use his legs; pt uses the word agony often in the conversation to describe his experience; pt is frustrated that 'no one knows why this has happened'; pt says that he does not agree with advice of nurses and doctors but that he is here because it is my only option but for ; pt is offered time to hear him express, to offer support and ways to help bring more calm and peace; pt says just pray for me and that will be all that you can do; prayer and best wishes are given
[2025-01-21 15:00] VITALS: BP 110/83; PULSE 79; RESP 16; TEMP 36.6; O2SAT 100
[2025-01-21 16:04] LABS: Urine Chloride 24 mmol/L (Not Establ.); Urine Potassium 7.2 mmol/L (Not Establ.); Urine Sodium 35 mmol/L (Not Establ.)
--- NOTE | 2025-01-21 16:11 | PCM.PN.HOSP ---
Reason for Visit Reason for Visit: Diagnoses Hypo-osmolality and hyponatremia (01/19/25) Objective Data Objective Data Vital Signs: Vital Signs Temp Pulse Resp BP Pulse Ox O2 Del Method 97.9 F 79 16 110/83 H 100 Room Air 01/21/25 15:00 01/21/25 15:00 01/21/25 15:00 01/21/25 15:00 01/21/25 15:00 01/21/25 15:00 Oxygen Delivery Method Room Air Weight: 168 lb 6.931 oz Body Mass Index (BMI) 24.1 Intake & Output: Intake and Output for Last 24 Hours 01/19/25 01/20/25 01/21/25 23:59 23:59 23:59 Intake Total 2260 / 2260 2860 / 2860 900 / 900 Output Total 1600 / 2400 2049 / 2049 Balance 2260 / 2260 1260 / 460 -1150 / -1150 Lab / Micro Data 01/21/25 03:59 01/21/25 03:59 Labs: Laboratory Results - last 24 hr 01/19/25 09:03: Crossmatch See Detail 01/19/25 17:10: Haptoglobin 127, GGT 31 01/21/25 03:59: WBC 2.2 L, RBC 2.61 L, Hgb 8.4 L, Hct 22.8 L, MCV 87.4, MCH 32.2 H, MCHC 36.8 H, RDW Std Deviation 56.9 H, RDW Coeff of Adiel 17.9 H, Plt Count 30 L*, MPV 10.2, Immature Gran % (Auto) 0.900, Neut % (Auto) 67.5, Lymph % (Auto) 21.4, [place] % (Auto) 8.0, Eos % (Auto) 1.3, Baso % (Auto) 0.9, Absolute Neuts (auto) 1.5 L, Absolute Lymphs (auto) 0.48 L, Nucleated RBC % 0, Platelet Estimate MKD DEC, Anisocytosis 1+, Ovalocytes 1+, Acanthocytes (Spur) 1+, Sodium 129 L, Potassium 3.2 L, Chloride 100, Carbon Dioxide 17.0 L, Anion Gap 11, BUN 14, Creatinine 0.93, Estim Creat Clear Calc 83.95, Est GFR (MDRD) Non-Af 92, BUN/Creatinine Ratio 14.7, Glucose 114 H, Uric Acid 5.5, Calcium 7.8, Phosphorus 2.7, Total Bilirubin 0.59, AST 37, ALT 13, Alkaline Phosphatase 79, Total Protein 5.7 L, Albumin 3.0 L, Globulin 2.7, Albumin/Globulin Ratio 1.1 01/21/25 14:51: Ur Random Sodium 35, Urine Creatinine 37.80 L, Urine Potassium 7.2, Urine Chloride 24 Micro: Microbiology 01/19/25 09:16 Stool Stool Occult Blood (MARIZOL) - Final Radiography Diagnostic Testing: Radiology Impression Foot X-Ray 01/21/25 10:41 IMPRESSION: 1. Soft tissue swelling without acute fracture. 2. If symptoms persist, repeat radiograph in 10-14 days recommended. 3. Degenerative changes as above. Reading Location: [facility] Foot X-Ray 01/21/25 11:00 IMPRESSION: 1. Soft tissue swelling without acute fracture. 2. If symptoms persist, repeat radiograph in 10-14 days recommended. Reading Location: [facility] Physical Exam Narrative Left great toe and second toe pain. Denies any prior history of gout. Hemoglobin improved. Patient states it hurts more when he puts weight on it. Physical exam General: Alert, Oriented x3, Cooperative HEENT: Pale conjunctiva. Atraumatic, PERRLA, EOMI, Normocephalic. Oral: Oral mucosa dry. No Gingival or Mucosal Lesions/ Ulcerations Neck: Supple, No JVD, Negative Carotid Bruits Chest wall/Lungs: Air entry diminished in bilateral lung bases. Lungs clear. Cardiovascular: Regular rate and rhythm, Normal S1,S2, No M/G/R Abdomen: Bowel Sounds Present, Soft, Non Tender, Non-Distended : No dysuria. No renal angle tenderness. No suprapubic tenderness. Extremities: No edema, Capillary Refill Less than 3 Seconds Skin: No rashes, No breakdown Musculoskeletal: Tenderness over left great toe and second toe, on ankle joint/calcaneal talar joint. Similar tenderness on right great and second toe but less than left foot. Neurological: Cranial nerves II-XII grossly intact, DTR 2+/4. No acute focal neurological deficit. Psych/Mental Status: Normal Affect, Appropriate. Assessment & Plan Assessment/Plan (1) Chronic hyponatremia: PLAN: Plan This 64-year-old gentleman being admitted for severe generalized weakness, gait instability for 1 that, fall today and found severe anemia thrombocytopenia in ED 1. Severe anemia and thrombocytopenia probably due to chronic alcoholism/BM suppression:. H&H 5.7/15%. Platelet count 50,000. MCV 95. RDW 13.6. ALC low, lymphopenia. stool for occult blood negative. Units of PRBC ordered. Reticulocyte panel, LDH, haptoglobin ordered. TSH, B12 and folic acid ordered. Patient was last admitted in April 2020 for advanced hide EGD and colonoscopy as mentioned below EGD on 04/2024 Impressions : - No gross lesions in the duodenal bulb, in the first portion of the duodenum and in the second portion of the duodenum. No specimens collected. - Gastritis. Biopsied. - Small hiatal hernia. No specimens collected. - Z-line regular, 38 cm from the incisors. Biopsied. - The examination was otherwise normal. Patient was prescribed sucralfate twice daily and PPI Pathology shows mild gastritis, GE junction, chronic inflammation but negative for metaplasia.Negative for H. pylori Colonoscopy 05/04/2024 Impression: - Nodular mucosa at the appendiceal orifice. Biopsied. - Tortuous colon. No specimens collected. - Diverticulosis in the sigmoid colon. No specimens collected. - The examination was otherwise normal on direct and retroflexion views. 01/20: Reticulocyte panel shows low reticulocyte count suggestive of bone marrow suppression/no production. Pancytopenia. H&H 7.5/19%. Platelet count 32K, WBC 2.2K. 1 unit of PRBC ordered as patient is symptomatic with dyspnea on exertion. B12 normal. Folic acid low. TSH normal. Advised to follow-up in hematology clinic. Started on thiamine and folic acid. 01/24: H&H 8.4/22.8%. Still has pancytopenia. 2. Fall, generalized weakness, ambulatory dysfunction: PT and OT ordered. CK is low suggestive of low muscle mass. AST 49 probably from chronic alcohol use. ALT normal. Left great toe second toe pain more than right great toe. Uric acid normal. X-ray of feet done which shows soft tissue swelling without acute fracture. Empirically IV Solu-Medrol started. 3. Severe hypokalemia and hypomagnesemia: IV potassium and magnesium replacement ordered. Serum phosphorus ordered. 01/20: Serum phosphorus level very low at 0.7. Still has hypokalemia. Magnesium normal. IV phosphate ordered. 01/20: 4. Acute on chronic hyponatremia: Serum sodium was 126 in August 2024. Today 121. Rapidly related to chronic alcohol use with decreased solute intake. IV normal saline ordered 5. Increased anion gap metabolic acidosis: Bicarb is low at about 15.8, anion gap 20. But venous pH is normal 7.38 with with total CO2 17. Mixed pCO2 26.8. Hard to interpret rate with venous ABG. Seems most likely due to alcoholic ketoacidosis. 01/20: Bicarb 16, anion gap 14. Anion gap seems elevated as expected anion gap of albumin 3.1 about 9-10. Started on sodium bicarbonate tablet. 6. Right subcrepitant fracture in August 2023 when he had right total hip replacement then. No acute issues 7. Chronic cigarette smoking and chronic alcohol use dependence, [facility] 24-hour monitoring ordered. 8. DVT prophylaxis: Pharmacological prophylaxis contraindicated. Bilateral SCDs Living will/advanced directive/end of life care: Patient does not have living will or advanced directive. He does not have dilated power of claims attorney for health. After discussion of benefits/risks procedures involved with full code, DNR CC arrest and DNR CC, the patient opted for DNR CC arrest with no intubation Patient doesn't want artificial life support including intubation, tube feed, ventilator and/chest compression, central venous catheter, vasopressor and DC shock if needed Total time spent in [id number] encounter in discussion of advanced directive 17 minutes. Microbiology Past 72 Hours 01/19/25 09:16 Stool Stool Occult Blood (MARIZOL) - Final Laboratory Results 01/19/25 09:03: Crossmatch See Detail 01/19/25 09:03: Crossmatch See Detail 01/19/25 17:10: Haptoglobin Pending, Phosphorus 1.5 L, GGT Pending, Lactate Dehydrogenase 191, b-Hydroxybutyric mmol/L 3.0, Direct Antiglob Test NEG w/POLYSPECIFIC 01/19/25 17:15: Hgb 8.3 L, Hct 22.4 L 01/19/25 20:35: Sodium 122 L, Potassium 3.1 L, Chloride 89 L, Carbon Dioxide 14.5 L, Anion Gap 19 H, BUN 16, Creatinine 1.00, Estim Creat Clear Calc 78.07, Est GFR (MDRD) Non-Af 85, BUN/Creatinine Ratio 15.8, Glucose 142 H, Calcium 7.6 01/20/25 05:28: WBC 2.2 L, RBC 2.28 L, Hgb 7.5 L, Hct 19.8 L, MCV 86.8 D, MCH 32.9 H, MCHC 37.9 H, RDW Std Deviation 56.9 H, RDW Coeff of Adiel 17.9 H, Plt Count 32 L*, MPV 10.5, Sodium 124 L, Potassium 3.0 L, Chloride 93 L, Carbon Dioxide 16.2 L, Anion Gap 14, BUN 15, Creatinine 0.92, Estim Creat Clear Calc 84.86, Est GFR (MDRD) Non-Af 93, BUN/Creatinine Ratio 16.4, Glucose 153 H, Calcium 7.5 L, Phosphorus 0.7 L*, Magnesium 1.8, Total Bilirubin 1.36 H, AST 51 H, ALT 16, Alkaline Phosphatase 76, Total Protein 5.6 L, Albumin 3.1 L, Globulin 2.5, Albumin/Globulin Ratio 1.2, Vitamin B12 418, Serum Folate 3.23 L, TSH 2.000 Charges/Coding Visit Charges Inpatient E&M: 50465 Subs Hosp L2
[2025-01-21 17:11] LABS: Osmolality, Urine 201 mOsm/KG
[2025-01-21 21:00] VITALS: BP 130/90; PULSE 77; RESP 16; TEMP 36.6; O2SAT 100
[2025-01-21] MEDS: 0.9% Saline Lock 10 ML Syringe IV (21:10)
[2025-01-21] MEDS: Mirtazapine 15 MG Tablet 7.5 MG PO (21:10)
[2025-01-22 03:30] VITALS: BP 118/85; PULSE 75; RESP 16; TEMP 36.4; O2SAT 100
[2025-01-22 04:38] VITALS: BMI 23.3
[2025-01-22] MEDS: 0.9% Saline Lock 10 ML Syringe IV ×2 (06:07→21:47)
[2025-01-22] MEDS: Potassium Chloride Oral Tablet 20 MEQ 40 MEQ PO (06:07)
[2025-01-22 07:13] LABS: Absolute Lymphocyte Count 0.38 X10^3/uL (0.83-4.51); Absolute Neutrophil Count 2.1 X10^3/uL (2.0-7.7); Hematocrit 25.9 % (40-54); Hemoglobin 9.2 g/dL (13.0-16.5); Lymphocyte # 0.38 X10^3/ul (0.83-4.51); Lymphocyte % 14.3 % (19-41); Mean Corp Hgb Conc 35.5 g/dL (32-36); Mean Corpuscular Hgb 32.3 pg (27.0-32.0); Mean Corpuscular Volume 90.9 fL (80-94); Mean Platelet Vol. 11.2 fl (6.2-12.0); Monocyte% 7.5 % (0-10); NRBC Flagged by Analyzer 0 % (0-5); Neutrophil # 2.05 X10^3/uL (2.7-7.7); Neutrophil % 77.1 % (47-70); POSITIVE COUNT YES; POSITIVE DIFFERENTIAL YES; Platelet Count 30 K/mm3 (150-450); RBC Distribution Width SD 59.7 fl (35.1-43.9); Red Blood Count 2.85 M/mm3 (4.6-6.2); White Blood Count 2.7 K/mm3 (4.4-11.0)
[2025-01-22 07:35] LABS: Differential Indicated SCAN CRITERIA MET
[2025-01-22 07:49] LABS: Platelet Estimate MKD DEC (ADEQ)
[2025-01-22 07:51] LABS: Pathologist Review May foll
[2025-01-22 08:07] LABS: ALB/GLOB Ratio 1.1 RATIO (0.9-2.4); AST(SGOT) 33 U/L (<=37); Alanine Aminotransfer ALT/SGPT 12 U/L (<=46); Albumin, Serum 3.2 g/dL (3.4-4.8); Alkaline Phosphatase 81 U/L (40-129); Anion Gap 9 (5-15); BUN 16 mg/dL (4-19); BUN/Creat Ratio 14.6 RATIO (10-20); Calcium,Total 8.3 mg/dL (7.6-11.0); Carbon Dioxide 16.4 mmol/L (21.0-32.0); Chloride 104 mmol/L (98-108); Creatinine, Serum 1.12 mg/dL (0.70-1.20); EST Glomerular Filtration Rate 74 (>60); Glucose 199 mg/dL (70-99); Potassium 4.9 mmol/L (3.3-5.1); Protein, Total 6.2 g/dL (5.9-8.4); Sodium Level 130 mmol/L (133-145); Total Bilirubin 0.39 mg/dL (0.00-1.30)
[2025-01-22] MEDS: Sodium Bicarbonate 650 MG Tablet PO ×3 (08:40→21:45)
[2025-01-22] MEDS: Magnesium Chloride 64 MG Delay Rel.Tablet 128 MG PO ×2 (08:40→21:45)
[2025-01-22] MEDS: Thiamine Hydrochloride 100 MG Tablet PO (08:41)
[2025-01-22] MEDS: Folic Acid 1 MG Tablet PO (08:41)
[2025-01-22] MEDS: Pantoprazole Sodium 40 MG Tablet PO (08:41)
[2025-01-22] MEDS: Ensure Plus High Protein 120 ML LIQUID PO ×4 (08:41→21:46)
[2025-01-22 08:44] VITALS: BP 137/90; PULSE 74; RESP 16; TEMP 37.1; O2SAT 100
[2025-01-22 09:00] VITALS: BP 137/90; PULSE 74; RESP 17; TEMP 37.1; O2SAT 99
--- NOTE | 2025-01-22 09:42 | DCINST_ITS ---
Discharge Instructions Follow Up Care Test Results: Test results from this visit will be discussed in further detail at your follow- up appointment, if applicable. Discharge Plan Admission Admit Date/Time: 01/19/25 10:30 Attending Provider: Shorty Lea Primary Care Provider: Emanuel Macedo Chi Discharge Orders/Prescriptions Prescriptions: No Action mirtazapine 7.5 mg tablet 7.5 mg PO QHS pantoprazole [Protonix] 40 mg tablet,delayed release (DR/EC) 40 mg PO DAILY Qty: 30 0RF Patient Comments: PT ONLY TAKES NEEDED. ascorbic acid (vitamin C) 500 mg tablet 500 mg PO DAILY Patient Comments: PT ONLY TAKES WHEN HE THINKS ABOUT IT. losartan 100 mg tablet 100 mg PO QHS Patient Comments: PT DOES NOT TAKE ALL THE TIME. Referrals / Follow Up: Emanuel Macedo Chi, MD [Primary Care Provider] -
--- NOTE | 2025-01-22 10:16 | CASEMGMT ---
Social Work SW spoke w/physician, he asked if pt can d/c home today. SW let physician know that as per the SW from yesterday, pt feels that he needs to go somewhere for rehab, was given a SNF list yesterday. SW woke pt to speak w/him regarding discharge plan. Pt confirms that he feels he needs to go somewhere for rehab, but he has not looked at the list yet. SW explained to pt to look at the list and SW will be back first thing Friday morning to find out his choices and start the referral process. Pt states understanding. DANIEL Armando
--- NOTE | 2025-01-22 13:05 | PN.HOSP_ITS ---
Reason for Visit Reason for Visit: Diagnoses Hypo-osmolality and hyponatremia (01/19/25) Objective Data Objective Data Vital Signs: Vital Signs Temp Pulse Resp BP Pulse Ox O2 Del Method 98.8 F 74 17 137/90 H 99 Room Air 01/22/25 09:00 01/22/25 09:00 01/22/25 09:00 01/22/25 09:00 01/22/25 09:00 01/22/25 09:00 Oxygen Delivery Method Room Air Weight: 162 lb 14.746 oz Body Mass Index (BMI) 23.3 Intake & Output: Intake and Output for Last 24 Hours 01/20/25 01/21/25 01/22/25 23:59 23:59 23:59 Intake Total 2860 / 2860 900 / 900 480 / 480 Output Total 1600 / 2400 2049 / 2049 Balance 1260 / 460 -1150 / -1150 480 / 480 Lab / Micro Data 01/22/25 06:32 01/22/25 06:32 Labs: Laboratory Results - last 24 hr 01/21/25 03:59: Uric Acid 5.5 01/21/25 14:51: Urine Osmolality 201, Ur Random Sodium 35, Urine Creatinine 37.80 L, Urine Potassium 7.2, Urine Chloride 24 01/22/25 06:32: WBC 2.7 L, RBC 2.85 L, Hgb 9.2 L, Hct 25.9 L, MCV 90.9, MCH 32.3 H, MCHC 35.5, RDW Std Deviation 59.7 H, RDW Coeff of Adiel 18.0 H, Plt Count 30 L* , MPV 11.2, Immature Gran % (Auto) 1.100 H, Neut % (Auto) 77.1 H, Lymph % (Auto) 14.3 L, [place] % (Auto) 7.5, Eos % (Auto) 0.0, Baso % (Auto) 0.0, Absolute Neuts (auto) 2.1, Absolute Lymphs (auto) 0.38 L, Nucleated RBC % 0, Differential Comment , Diff Path Review May foll, Platelet Estimate MKD DEC, Sodium 130 L, Potassium 4.9, Chloride 104, Carbon Dioxide 16.4 L, Anion Gap 9, BUN 16, Creatinine 1.12, Estim Creat Clear Calc 69.70, Est GFR (MDRD) Non-Af 74, BUN/Creatinine Ratio 14.6, Glucose 199 H, Calcium 8.3, Total Bilirubin 0.39, AST 33, ALT 12, Alkaline Phosphatase 81, Total Protein 6.2, Albumin 3.2 L, Globulin 3.0, Albumin/Globulin Ratio 1.1 Micro: Microbiology 01/19/25 09:16 Stool Stool Occult Blood (MARIZOL) - Final Physical Exam Narrative Left great toe and second toe pain, is much better with IV Solu-Medrol changed to prednisone. Denies any prior history of gout. Hemoglobin improved. Physical exam General: Alert, Oriented x3, Cooperative HEENT: Pale conjunctiva. Atraumatic, PERRLA, EOMI, Normocephalic. Oral: Oral mucosa dry. No Gingival or Mucosal Lesions/ Ulcerations Neck: Supple, No JVD, Negative Carotid Bruits Chest wall/Lungs: Air entry diminished in bilateral lung bases. Lungs clear. Cardiovascular: Regular rate and rhythm, Normal S1,S2, No M/G/R Abdomen: Bowel Sounds Present, Soft, Non Tender, Non-Distended : No dysuria. No renal angle tenderness. No suprapubic tenderness. Extremities: No edema, Capillary Refill Less than 3 Seconds Skin: No rashes, No breakdown Musculoskeletal: Mild tenderness over left great toe and second toe, on ankle joint/calcaneal talar joint. Similar tenderness on right great and second toe but less than left foot. Neurological: Cranial nerves II-XII grossly intact, DTR 2+/4. No acute focal neurological deficit. Psych/Mental Status: Normal Affect, Appropriate. Assessment & Plan Assessment/Plan (1) Chronic hyponatremia: PLAN: Plan This 64-year-old gentleman being admitted for severe generalized weakness, gait instability for 1 that, fall today and found severe anemia thrombocytopenia in ED 1. Severe anemia and thrombocytopenia probably due to chronic alcoholism/BM suppression:. H&H 5.7/15%. Platelet count 50,000. MCV 95. RDW 13.6. ALC low, lymphopenia. stool for occult blood negative. Units of PRBC ordered. Reticulocyte panel, LDH, haptoglobin ordered. TSH, B12 and folic acid ordered. Patient was last admitted in April 2020 for advanced hide EGD and colonoscopy as mentioned below EGD on 04/2024 Impressions : - No gross lesions in the duodenal bulb, in the first portion of the duodenum and in the second portion of the duodenum. No specimens collected. - Gastritis. Biopsied. - Small hiatal hernia. No specimens collected. - Z-line regular, 38 cm from the incisors. Biopsied. - The examination was otherwise normal. Patient was prescribed sucralfate twice daily and PPI Pathology shows mild gastritis, GE junction, chronic inflammation but negative for metaplasia.Negative for H. pylori Colonoscopy 05/04/2024 Impression: - Nodular mucosa at the appendiceal orifice. Biopsied. - Tortuous colon. No specimens collected. - Diverticulosis in the sigmoid colon. No specimens collected. - The examination was otherwise normal on direct and retroflexion views. 01/20: Reticulocyte panel shows low reticulocyte count suggestive of bone marrow suppression/no production. Pancytopenia. H&H 7.5/19%. Platelet count 32K, WBC 2.2K. 1 unit of PRBC ordered as patient is symptomatic with dyspnea on exertion. B12 normal. Folic acid low. TSH normal. Advised to follow-up in hematology clinic. Started on thiamine and folic acid. 01/21: H&H 8.4/22.8%. Still has pancytopenia. 01/22: H&H 9.2/25.9%. CBC every other day to prevent blood loss from daily lab draw 2. Fall, generalized weakness, ambulatory dysfunction: PT and OT ordered. CK is low suggestive of low muscle mass. AST 49 probably from chronic alcohol use. ALT normal. Left great toe second toe pain more than right great toe. Uric acid normal. X- ray of feet done which shows soft tissue swelling without acute fracture. Empirically IV Solu-Medrol started. 3. Severe hypokalemia and hypomagnesemia: IV potassium and magnesium replacement ordered. Serum phosphorus ordered. 01/20: Serum phosphorus level very low at 0.7. Still has hypokalemia. Magnesium normal. IV phosphate ordered. 01/21: Hypokalemia corrected, K4.9.. Discontinue potassium replacement. 4. Acute on chronic hyponatremia: Serum sodium was 126 in August 2024. Today 121. Rapidly related to chronic alcohol use with decreased solute intake. IV normal saline ordered 01/22: Sodium is also better. Serum sodium 130. 5. Increased anion gap metabolic acidosis: Bicarb is low at about 15.8, anion gap 20. But venous pH is normal 7.38 with with total CO2 17. Mixed pCO2 26.8. Hard to interpret rate with venous ABG. Seems most likely due to alcoholic ketoacidosis. 01/20: Bicarb 16, anion gap 14. Anion gap seems elevated as expected anion gap of albumin 3.1 about 9-10. Started on sodium bicarbonate tablet. 6. Right subcrepitant fracture in August 2023 when he had right total hip replacement then. No acute issues 7. Chronic cigarette smoking and chronic alcohol use dependence, [facility] 24-hour monitoring ordered. 8. DVT prophylaxis: Pharmacological prophylaxis contraindicated. Bilateral SCDs Living will/advanced directive/end of life care: Patient does not have living will or advanced directive. He does not have dilated power of research attorney for health. After discussion of benefits/risks procedures involved with full code, DNR CC arrest and DNR CC, the patient opted for DNR CC arrest with no intubation Patient doesn't want artificial life support including intubation, tube feed, ventilator and/chest compression, central venous catheter, vasopressor and DC shock if needed Total time spent in [id number] encounter in discussion of advanced directive 17 minutes. Microbiology Past 72 Hours 01/19/25 09:16 Stool Stool Occult Blood (MARIZOL) - Final Laboratory Results 01/21/25 03:59: Uric Acid 5.5 01/21/25 14:51: Urine Osmolality 201, Ur Random Sodium 35, Urine Creatinine 37.80 L, Urine Potassium 7.2, Urine Chloride 24 01/22/25 06:32: WBC 2.7 L, RBC 2.85 L, Hgb 9.2 L, Hct 25.9 L, MCV 90.9, MCH 32.3 H, MCHC 35.5, RDW Std Deviation 59.7 H, RDW Coeff of Adiel 18.0 H, Plt Count 30 L* , MPV 11.2, Immature Gran % (Auto) 1.100 H, Neut % (Auto) 77.1 H, Lymph % (Auto) 14.3 L, [place] % (Auto) 7.5, Eos % (Auto) 0.0, Baso % (Auto) 0.0, Absolute Neuts (auto) 2.1, Absolute Lymphs (auto) 0.38 L, Nucleated RBC % 0, Differential Comment , Diff Path Review January, Platelet Estimate MKD DEC, Sodium 130 L, Potassium 4.9, Chloride 104, Carbon Dioxide 16.4 L, Anion Gap 9, BUN 16, Creatinine 1.12, Estim Creat Clear Calc 69.70, Est GFR (MDRD) Non-Af 74, BUN/Creatinine Ratio 14.6, Glucose 199 H, Calcium 8.3, Total Bilirubin 0.39, AST 33, ALT 12, Alkaline Phosphatase 81, Total Protein 6.2, Albumin 3.2 L, Globulin 3.0, Albumin/Globulin Ratio 1.1 Charges/Coding Visit Charges Inpatient E&M: 36479 Subs Hosp L2
[2025-01-22] MEDS: predniSONE 20 MG Tablet 40 MG PO (14:02)
[2025-01-22 21:42] VITALS: BP 130/90; PULSE 77; RESP 18; TEMP 36.6; O2SAT 99
[2025-01-22] MEDS: Mirtazapine 15 MG Tablet 7.5 MG PO (21:45)
[2025-01-23 03:39] VITALS: BP 120/83; PULSE 80; RESP 17; TEMP 36.4; O2SAT 100
[2025-01-23] MEDS: Sodium Bicarbonate 650 MG Tablet PO ×3 (05:03→20:35)
[2025-01-23 06:00] VITALS: BMI 25.1
[2025-01-23] MEDS: Folic Acid 1 MG Tablet PO (08:17)
[2025-01-23] MEDS: Pantoprazole Sodium 40 MG Tablet PO (08:17)
[2025-01-23] MEDS: predniSONE 20 MG Tablet 40 MG PO (08:17)
[2025-01-23] MEDS: Magnesium Chloride 64 MG Delay Rel.Tablet 128 MG PO (08:17)
[2025-01-23] MEDS: Thiamine Hydrochloride 100 MG Tablet PO (08:18)
[2025-01-23 09:00] VITALS: BP 138/88; PULSE 78; RESP 17; TEMP 36.7; O2SAT 100
[2025-01-23 09:35] VITALS: BP 138/88; PULSE 78; RESP 16; TEMP 36.6; O2SAT 100
--- NOTE | 2025-01-23 12:42 | PCM.PN.HOSP ---
Reason for Visit Reason for Visit: Diagnoses Hypo-osmolality and hyponatremia (01/19/25) Objective Data Objective Data Vital Signs: Vital Signs Temp Pulse Resp BP Pulse Ox O2 Del Method 97.8 F 78 16 138/88 H 100 Room Air 01/23/25 09:35 01/23/25 09:35 01/23/25 09:35 01/23/25 09:35 01/23/25 09:35 01/23/25 09:35 Oxygen Delivery Method Room Air Weight: 175 lb 4.28 oz Body Mass Index (BMI) 25.1 Intake & Output: Intake and Output for Last 24 Hours 01/21/25 01/22/25 01/23/25 23:59 23:59 23:59 Intake Total 900 / 900 960 / 960 Output Total 2049 / 2049 Balance -1150 / -1150 960 / 960 Lab / Micro Data 01/22/25 06:32 01/22/25 06:32 Micro: Microbiology 01/19/25 09:16 Stool Stool Occult Blood (MARIZOL) - Final Physical Exam Narrative Left great toe and second toe pain has improved. Denies any prior history of gout. Hemoglobin improved. Physical exam General: Alert, Oriented x3, Cooperative. HEENT: Pale conjunctiva. Atraumatic, PERRLA, EOMI, Normocephalic. Oral: Oral mucosa dry. No Gingival or Mucosal Lesions/ Ulcerations Neck: Supple, No JVD, Negative Carotid Bruits Chest wall/Lungs: Air entry diminished in bilateral lung bases. Lungs clear. Cardiovascular: Regular rate and rhythm, Normal S1,S2, No M/G/R Abdomen: Bowel Sounds Present, Soft, Non Tender, Non-Distended : No dysuria. No renal angle tenderness. No suprapubic tenderness. Extremities: No edema, Capillary Refill Less than 3 Seconds Skin: No rashes, No breakdown Musculoskeletal: Mild tenderness over left great toe and second toe, on ankle joint/calcaneal talar joint. Similar tenderness on right great and second toe but less than left foot. Neurological: Cranial nerves II-XII grossly intact, DTR 2+/4. No acute focal neurological deficit. Psych/Mental Status: Normal Affect, Appropriate. Assessment & Plan Assessment/Plan (1) Chronic hyponatremia: PLAN: Plan This 64-year-old gentleman being admitted for severe generalized weakness, gait instability for 1 that, fall today and found severe anemia thrombocytopenia in ED 1. Severe anemia and thrombocytopenia probably due to chronic alcoholism/BM suppression:. H&H 5.7/15%. Platelet count 50,000. MCV 95. RDW 13.6. ALC low, lymphopenia. stool for occult blood negative. Units of PRBC ordered. Reticulocyte panel, LDH, haptoglobin ordered. TSH, B12 and folic acid ordered. Patient was last admitted in April 2020 for advanced hide EGD and colonoscopy as mentioned below EGD on 04/2024 Impressions : - No gross lesions in the duodenal bulb, in the first portion of the duodenum and in the second portion of the duodenum. No specimens collected. - Gastritis. Biopsied. - Small hiatal hernia. No specimens collected. - Z-line regular, 38 cm from the incisors. Biopsied. - The examination was otherwise normal. Patient was prescribed sucralfate twice daily and PPI Pathology shows mild gastritis, GE junction, chronic inflammation but negative for metaplasia.Negative for H. pylori Colonoscopy 05/04/2024 Impression: - Nodular mucosa at the appendiceal orifice. Biopsied. - Tortuous colon. No specimens collected. - Diverticulosis in the sigmoid colon. No specimens collected. - The examination was otherwise normal on direct and retroflexion views. 01/20: Reticulocyte panel shows low reticulocyte count suggestive of bone marrow suppression/no production. Pancytopenia. H&H 7.5/19%. Platelet count 32K, WBC 2.2K. 1 unit of PRBC ordered as patient is symptomatic with dyspnea on exertion. B12 normal. Folic acid low. TSH normal. Advised to follow-up in hematology clinic. Started on thiamine and folic acid. 01/21: H&H 8.4/22.8%. Still has pancytopenia. 01/22: H&H 9.2/25.9%. CBC every other day to prevent blood loss from daily lab draw. 01/23: Blood counts are better. 2. Fall, generalized weakness, ambulatory dysfunction: PT and OT ordered. CK is low suggestive of low muscle mass. AST 49 probably from chronic alcohol use. ALT normal. Left great toe second toe pain more than right great toe. Uric acid normal. X-ray of feet done which shows soft tissue swelling without acute fracture. Empirically IV Solu-Medrol started. 3. Severe hypokalemia and hypomagnesemia: IV potassium and magnesium replacement ordered. Serum phosphorus ordered. 01/20: Serum phosphorus level very low at 0.7. Still has hypokalemia. Magnesium normal. IV phosphate ordered. 01/21: Hypokalemia corrected, K4.9.. Discontinue potassium replacement. 01/23: Patient is doing well. On magnesium chloride. 4. Acute on chronic hyponatremia: Serum sodium was 126 in August 2024. Today 121. Rapidly related to chronic alcohol use with decreased solute intake. IV normal saline ordered 01/22: Sodium is also better. Serum sodium 130. 5. Increased anion gap metabolic acidosis: Bicarb is low at about 15.8, anion gap 20. But venous pH is normal 7.38 with with total CO2 17. Mixed pCO2 26.8. Hard to interpret rate with venous ABG. Seems most likely due to alcoholic ketoacidosis. 01/20: Bicarb 16, anion gap 14. Anion gap seems elevated as expected anion gap of albumin 3.1 about 9-10. Started on sodium bicarbonate tablet. 01/23: Patient on sodium bicarbonate tablet and magnesium chloride 6. Right subcrepitant fracture in August 2023 when he had right total hip replacement then. No acute issues 7. Chronic cigarette smoking and chronic alcohol use dependence, [facility] 24-hour monitoring ordered. 8. DVT prophylaxis: Pharmacological prophylaxis contraindicated. Bilateral SCDs Living will/advanced directive/end of life care: Patient does not have living will or advanced directive. He does not have dilated power of assistant county attorney for health. After discussion of benefits/risks procedures involved with full code, DNR CC arrest and DNR CC, the patient opted for DNR CC arrest with no intubation Patient doesn't want artificial life support including intubation, tube feed, ventilator and/chest compression, central venous catheter, vasopressor and DC shock if needed Charges/Coding Visit Charges Inpatient E&M: 05851 Subs Hosp L2
[2025-01-23 15:35] VITALS: BP 148/94; PULSE 81; RESP 16; TEMP 36.6; O2SAT 100
[2025-01-23] MEDS: Mirtazapine 15 MG Tablet 7.5 MG PO (20:35)
[2025-01-23 21:35] VITALS: BP 140/87; PULSE 71; RESP 14; TEMP 36.6; O2SAT 100
[2025-01-24 03:46] VITALS: BP 150/91; PULSE 78; RESP 18; TEMP 36.7; O2SAT 100
[2025-01-24] MEDS: Sodium Bicarbonate 650 MG Tablet PO ×2 (05:04→15:35)
[2025-01-24 05:36] LABS: Absolute Lymphocyte Count 0.94 X10^3/uL (0.83-4.51); Absolute Neutrophil Count 2.2 X10^3/uL (2.0-7.7); Basophil# 0.01 X10^3/uL; Basophil% 0.3 % (0-1); Eosinophil# 0.02 X10^3/uL; Eosinophils% 0.5 % (0-5); Hematocrit 25.1 % (40-54); Hemoglobin 8.8 g/dL (13.0-16.5); Lymphocyte # 0.94 X10^3/ul (0.83-4.51); Lymphocyte % 24.7 % (19-41); Mean Corp Hgb Conc 35.1 g/dL (32-36); Mean Corpuscular Hgb 31.9 pg (27.0-32.0); Mean Corpuscular Volume 90.9 fL (80-94); Mean Platelet Vol. 10.9 fl (6.2-12.0); Monocyte# 0.44 X10^3/uL; Monocyte% 11.5 % (0-10); NRBC Flagged by Analyzer 0 % (0-5); Neutrophil # 2.24 X10^3/uL (2.7-7.7); Neutrophil % 58.8 % (47-70); POSITIVE COUNT YES; RBC Distribution Width CV 17.4 % (11.6-14.6); RBC Distribution Width SD 57.9 fl (35.1-43.9); Red Blood Count 2.76 M/mm3 (4.6-6.2); White Blood Count 3.8 K/mm3 (4.4-11.0)
[2025-01-24 05:41] VITALS: BMI 23.3
[2025-01-24 05:42] LABS: Differential Indicated SCAN CRITERIA MET; Platelet Count 32 K/mm3 (150-450)
[2025-01-24 06:10] LABS: Acanthocytes RARE; Anisocytosis 1+; Bite Cell RARE; Differential Comment SCANNED; Platelet Estimate MKD DEC (ADEQ)
[2025-01-24 06:14] LABS: Anion Gap 10 (5-15); BUN 18 mg/dL (4-19); BUN/Creat Ratio 18.9 RATIO (10-20); Calcium,Total 8.4 mg/dL (7.6-11.0); Carbon Dioxide 17.6 mmol/L (21.0-32.0); Chloride 104 mmol/L (98-108); Creatinine, Serum 0.93 mg/dL (0.70-1.20); EST Glomerular Filtration Rate 93 (>60); Estimated Creatinine Clearance 83.95 ml/min (50-250); Glucose 117 mg/dL (70-99); Potassium 3.9 mmol/L (3.3-5.1); Sodium Level 131 mmol/L (133-145)
[2025-01-24 07:00] VITALS: PULSE 78
--- NOTE | 2025-01-24 09:09 | PCM.TXEXTCAR ---
Diet Diet Order/Speech Therapy: 01/19/25 11:55 Diet: Regular - General DC O2, CPAP, BIPAP needs Home O2 Discharge instructions: No Wound(s) buttocks: Wound Type: Pressure Injury Problem/Diagnosis (1) Chronic hyponatremia: Status: Chronic Code(s): E87.1 - Hypo-osmolality and hyponatremia Plan This 64-year-old gentleman being admitted for severe generalized weakness, gait instability for 1 that, fall today and found severe anemia thrombocytopenia in ED 1. Severe anemia and thrombocytopenia probably due to chronic alcoholism/BM suppression:. H&H 5.7/15%. Platelet count 50,000. MCV 95. RDW 13.6. ALC low, lymphopenia. stool for occult blood negative. Units of PRBC ordered. Reticulocyte panel, LDH, haptoglobin ordered. TSH, B12 and folic acid ordered. Patient was last admitted in April 2020 for advanced hide EGD and colonoscopy as mentioned below EGD on 04/2024 Impressions : - No gross lesions in the duodenal bulb, in the first portion of the duodenum and in the second portion of the duodenum. No specimens collected. - Gastritis. Biopsied. - Small hiatal hernia. No specimens collected. - Z-line regular, 38 cm from the incisors. Biopsied. - The examination was otherwise normal. Patient was prescribed sucralfate twice daily and PPI Pathology shows mild gastritis, GE junction, chronic inflammation but negative for metaplasia.Negative for H. pylori Colonoscopy 05/04/2024 Impression: - Nodular mucosa at the appendiceal orifice. Biopsied. - Tortuous colon. No specimens collected. - Diverticulosis in the sigmoid colon. No specimens collected. - The examination was otherwise normal on direct and retroflexion views. 01/20: Reticulocyte panel shows low reticulocyte count suggestive of bone marrow suppression/no production. Pancytopenia. H&H 7.5/19%. Platelet count 32K, WBC 2.2K. 1 unit of PRBC ordered as patient is symptomatic with dyspnea on exertion. B12 normal. Folic acid low. TSH normal. Advised to follow-up in hematology clinic. Started on thiamine and folic acid. 01/21: H&H 8.4/22.8%. Still has pancytopenia. 01/22: H&H 9.2/25.9%. CBC every other day to prevent blood loss from daily lab draw. 01/23: Blood counts are better. 01/24: Labs reviewed. H&H 8.8/25%. Platelet count 32K. WBC 3.8 thousand. 2. Fall, generalized weakness, ambulatory dysfunction: PT and OT ordered. CK is low suggestive of low muscle mass. AST 49 probably from chronic alcohol use. ALT normal. Left great toe second toe pain more than right great toe. Uric acid normal. X-ray of feet done which shows soft tissue swelling without acute fracture. Empirically IV Solu-Medrol started. 3. Severe hypokalemia and hypomagnesemia: IV potassium and magnesium replacement ordered. Serum phosphorus ordered. 01/20: Serum phosphorus level very low at 0.7. Still has hypokalemia. Magnesium normal. IV phosphate ordered. 01/21: Hypokalemia corrected, K4.9.. Discontinue potassium replacement. 01/23: Patient is doing well. On magnesium chloride. 01/24: K3.9. Normal daily potassium replacement 4. Acute on chronic hyponatremia: Serum sodium was 126 in August 2024. Today 121. Rapidly related to chronic alcohol use with decreased solute intake. IV normal saline ordered 01/22: Sodium is also better. Serum sodium 130. 01/24: Sodium is 131. Bicarb better 17.6. Continue sodium bicarb. 5. Increased anion gap metabolic acidosis: Bicarb is low at about 15.8, anion gap 20. But venous pH is normal 7.38 with with total CO2 17. Mixed pCO2 26.8. Hard to interpret rate with venous ABG. Seems most likely due to alcoholic ketoacidosis. 01/20: Bicarb 16, anion gap 14. Anion gap seems elevated as expected anion gap of albumin 3.1 about 9-10. Started on sodium bicarbonate tablet. 01/23: Patient on sodium bicarbonate tablet and magnesium chloride 6. Right subcrepitant fracture in August 2023 when he had right total hip replacement then. No acute issues 7. Chronic cigarette smoking and chronic alcohol use dependence, [facility] 24-hour monitoring ordered. 8. DVT prophylaxis: Pharmacological prophylaxis contraindicated. Bilateral SCDs Living will/advanced directive/end of life care: Patient does not have living will or advanced directive. He does not have dilated power of research attorney for health. After discussion of benefits/risks procedures involved with full code, DNR CC arrest and DNR CC, the patient opted for DNR CC arrest with no intubation Patient doesn't want artificial life support including intubation, tube feed, ventilator and/chest compression, central venous catheter, vasopressor and DC shock if needed Allergies/Procedures Done in Hospital Allergies No Known Allergies Allergy (Verified 08/16/23 05:09) Type of Care/Length of Stay Estimated LOS: Convalescent Care Less Than 30 days Type of Care Needed: Skilled Rehab Potential: Good Prognosis: Good Additional Orders/Day of Discharge Day of Discharge: 01/24/25 Dietary and Speech Recommendations Dietitian Recommendations/Changes: Continue regular diet and 120ml EPHP 4x daily with medpass. Will monitor weight trends. Discharge Plan Admission Admit Date/Time: 01/19/25 10:30 Primary Reason for Your Visit: Severe anemia Attending Provider: Shorty Lea Primary Care Provider: Emanuel Macedo Chi Discharge Orders/Prescriptions Prescriptions: New thiamine HCl (vitamin B1) 100 mg Tablet 100 mg PO BREAKFAST Qty: 0 0RF potassium chloride 20 mEq Tablet,Er Particles/Crystals 20 meq PO DAILYCM 30 Days Qty: 0 0RF folic acid 1 mg Tablet 1 mg PO BREAKFAST Qty: 0 0RF ferrous sulfate 325 mg (65 mg iron) tablet 325 mg PO QODAY Qty: 30 2RF Continued mirtazapine 7.5 mg tablet 7.5 mg PO QHS pantoprazole [Protonix] 40 mg tablet,delayed release (DR/EC) 40 mg PO DAILY Qty: 30 0RF Patient Comments: PT ONLY TAKES NEEDED. ascorbic acid (vitamin C) 500 mg tablet 500 mg PO DAILY Patient Comments: PT ONLY TAKES WHEN HE THINKS ABOUT IT. losartan 100 mg tablet 100 mg PO QHS Patient Comments: PT DOES NOT TAKE ALL THE TIME. Referrals / Follow Up: Emanuel Macedo Chi, MD [Primary Care Provider] - Abiel Zabala MD [Med Staff - Active Staff] - Within 2 Weeks Disposition Disposition (needs filled in before D/C Order can be placed): Long-Term Facility
[2025-01-24 09:17] VITALS: BP 118/85; PULSE 90; RESP 18; TEMP 36.9; O2SAT 100
[2025-01-24] MEDS: predniSONE 20 MG Tablet 40 MG PO (09:18)
[2025-01-24] MEDS: Folic Acid 1 MG Tablet PO (09:19)
[2025-01-24] MEDS: Pantoprazole Sodium 40 MG Tablet PO (09:19)
[2025-01-24] MEDS: Ensure Plus High Protein 120 ML LIQUID PO (09:19)
[2025-01-24] MEDS: Thiamine Hydrochloride 100 MG Tablet PO (09:19)
--- NOTE | 2025-01-24 11:45 | CASEMGMT ---
Addendum entered by Melida Tom 01/24/25 15:32: [id number] completed for precert per request [facility]. SW placed copy on chart. MIKE Kuo Addendum entered by Meldia Tom 01/24/25 13:30: [facility] accepted referral and started precert. Pt notified and agreeable to plan. MIKE Kuo Addendum entered by Melida Tom 01/24/25 12:40: [facility] declined referral. [facility] remains pending. MIKE Kuo Original Note: Social Work- SW met with pt to follow up on SNF choices. SW introduced self and role; pt agreeable to meeting. Pt reports that he has tried to go home previously without success and is interested in SNF. Pt selected [facility] as [facility]. [facility] as alternate. [facility] as 3rd choice. SW completed referral to [facility] and [facility]. SW remains available to follow. MIKE Kuo
--- NOTE | 2025-01-24 11:52 | PCM.PN.HOSP ---
Reason for Visit Reason for Visit: Diagnoses Hypo-osmolality and hyponatremia (01/19/25) Objective Data Objective Data Vital Signs: Vital Signs Temp Pulse Resp BP Pulse Ox O2 Del Method 98.5 F 90 18 118/85 H 100 Room Air 01/24/25 09:17 01/24/25 09:17 01/24/25 09:17 01/24/25 09:17 01/24/25 09:17 01/24/25 09:17 Oxygen Delivery Method Room Air Weight: 163 lb 2.273 oz Body Mass Index (BMI) 23.3 Intake & Output: Intake and Output for Last 24 Hours 01/22/25 01/23/25 01/24/25 23:59 23:59 23:59 Intake Total 960 / 960 840 / 840 Balance 960 / 960 840 / 840 Lab / Micro Data 01/24/25 05:19 01/24/25 05:19 Labs: Laboratory Results - last 24 hr 01/24/25 05:19: WBC 3.8 L, RBC 2.76 L, Hgb 8.8 L, Hct 25.1 L, MCV 90.9, MCH 31.9, MCHC 35.1, RDW Std Deviation 57.9 H, RDW Coeff of Adiel 17.4 H, Plt Count 32 L*, MPV 10.9, Immature Gran % (Auto) 4.200 H, Neut % (Auto) 58.8, Lymph % (Auto) 24.7, [place] % (Auto) 11.5 H, Eos % (Auto) 0.5, Baso % (Auto) 0.3, Absolute Neuts (auto) 2.2, Absolute Lymphs (auto) 0.94, Nucleated RBC % 0, Differential Comment SCANNED, Platelet Estimate MKD DEC, Anisocytosis 1+, Bite Cells RARE, Acanthocytes (Spur) RARE, Sodium 131 L, Potassium 3.9, Chloride 104, Carbon Dioxide 17.6 L, Anion Gap 10, BUN 18, Creatinine 0.93, Estim Creat Clear Calc 83.95, Est GFR (MDRD) Non-Af 93, BUN/Creatinine Ratio 18.9, Glucose 117 H, Calcium 8.4 Micro: Microbiology 01/19/25 09:16 Stool Stool Occult Blood (MARIZOL) - Final Physical Exam Narrative Left great toe and second toe pain has improved. Denies any prior history of gout. Hemoglobin 8.8. WBC count and platelet similar. Physical exam General: Alert, Oriented x3, Cooperative. HEENT: Pale conjunctiva. Atraumatic, PERRLA, EOMI, Normocephalic. Oral: Oral mucosa dry. No Gingival or Mucosal Lesions/ Ulcerations Neck: Supple, No JVD, Negative Carotid Bruits Chest wall/Lungs: Air entry diminished in bilateral lung bases. Lungs clear. Cardiovascular: Regular rate and rhythm, Normal S1,S2, No M/G/R Abdomen: Bowel Sounds Present, Soft, Non Tender, Non-Distended : No dysuria. No renal angle tenderness. No suprapubic tenderness. Extremities: No edema, Capillary Refill Less than 3 Seconds Skin: No rashes, No breakdown Musculoskeletal: Tenderness in bilateral forefeet has much improved. Neurological: Cranial nerves II-XII grossly intact, DTR 2+/4. No acute focal neurological deficit. Psych/Mental Status: Normal Affect, Appropriate. Assessment & Plan Assessment/Plan (1) Chronic hyponatremia: PLAN: Plan This 64-year-old gentleman being admitted for severe generalized weakness, gait instability for 1 that, fall today and found severe anemia thrombocytopenia in ED 1. Severe anemia and thrombocytopenia probably due to chronic alcoholism/BM suppression:. H&H 5.7/15%. Platelet count 50,000. MCV 95. RDW 13.6. ALC low, lymphopenia. stool for occult blood negative. Units of PRBC ordered. Reticulocyte panel, LDH, haptoglobin ordered. TSH, B12 and folic acid ordered. Patient was last admitted in April 2020 for advanced hide EGD and colonoscopy as mentioned below EGD on 04/2024 Impressions : - No gross lesions in the duodenal bulb, in the first portion of the duodenum and in the second portion of the duodenum. No specimens collected. - Gastritis. Biopsied. - Small hiatal hernia. No specimens collected. - Z-line regular, 38 cm from the incisors. Biopsied. - The examination was otherwise normal. Patient was prescribed sucralfate twice daily and PPI Pathology shows mild gastritis, GE junction, chronic inflammation but negative for metaplasia.Negative for H. pylori Colonoscopy 05/04/2024 Impression: - Nodular mucosa at the appendiceal orifice. Biopsied. - Tortuous colon. No specimens collected. - Diverticulosis in the sigmoid colon. No specimens collected. - The examination was otherwise normal on direct and retroflexion views. 01/20: Reticulocyte panel shows low reticulocyte count suggestive of bone marrow suppression/no production. Pancytopenia. H&H 7.5/19%. Platelet count 32K, WBC 2.2K. 1 unit of PRBC ordered as patient is symptomatic with dyspnea on exertion. B12 normal. Folic acid low. TSH normal. Advised to follow-up in hematology clinic. Started on thiamine and folic acid. 01/21: H&H 8.4/22.8%. Still has pancytopenia. 01/22: H&H 9.2/25.9%. CBC every other day to prevent blood loss from daily lab draw. 01/23: Blood counts are better. 01/24: Labs reviewed. H&H 8.8/25%. Platelet count 32K. WBC 3.8 thousand. 2. Fall, generalized weakness, ambulatory dysfunction: PT and OT ordered. CK is low suggestive of low muscle mass. AST 49 probably from chronic alcohol use. ALT normal. Left great toe second toe pain more than right great toe. Uric acid normal. X-ray of feet done which shows soft tissue swelling without acute fracture. Empirically IV Solu-Medrol started. 3. Severe hypokalemia and hypomagnesemia: IV potassium and magnesium replacement ordered. Serum phosphorus ordered. 01/20: Serum phosphorus level very low at 0.7. Still has hypokalemia. Magnesium normal. IV phosphate ordered. 01/21: Hypokalemia corrected, K4.9.. Discontinue potassium replacement. 01/23: Patient is doing well. On magnesium chloride. 01/24: K3.9. Normal daily potassium replacement 4. Acute on chronic hyponatremia: Serum sodium was 126 in August 2024. Today 121. Rapidly related to chronic alcohol use with decreased solute intake. IV normal saline ordered 01/22: Sodium is also better. Serum sodium 130. 01/24: Sodium is 131. Bicarb better 17.6. Continue sodium bicarb. 5. Increased anion gap metabolic acidosis: Bicarb is low at about 15.8, anion gap 20. But venous pH is normal 7.38 with with total CO2 17. Mixed pCO2 26.8. Hard to interpret rate with venous ABG. Seems most likely due to alcoholic ketoacidosis. 01/20: Bicarb 16, anion gap 14. Anion gap seems elevated as expected anion gap of albumin 3.1 about 9-10. Started on sodium bicarbonate tablet. 01/23: Patient on sodium bicarbonate tablet and magnesium chloride 6. Right subcrepitant fracture in August 2023 when he had right total hip replacement then. No acute issues 7. Chronic cigarette smoking and chronic alcohol use dependence, [facility] 24-hour monitoring ordered. 8. DVT prophylaxis: Pharmacological prophylaxis contraindicated. Bilateral SCDs Living will/advanced directive/end of life care: Patient does not have living will or advanced directive. He does not have dilated power of workers compensation attorney for health. After discussion of benefits/risks procedures involved with full code, DNR CC arrest and DNR CC, the patient opted for DNR CC arrest with no intubation Patient doesn't want artificial life support including intubation, tube feed, ventilator and/chest compression, central venous catheter, vasopressor and DC shock if needed Charges/Coding Visit Charges Inpatient E&M: 10263 Subs Hosp L2
[2025-01-24 15:36] VITALS: BP 136/93; PULSE 83; RESP 18; TEMP 36.6; O2SAT 97
[2025-01-24 16:20] LABS: Iron 64 ug/dL (65-175); Iron Binding Capacity,Unsat 110 ug/dL (228-428)
--- NOTE | 2025-01-24 16:29 | DS.PCM_ITS ---
Providers Date of Admission: 01/19/25 Date of Discharge: 01/24/25 Primary Care Physician: Dr. Emanuel Macedo MD Reason For Visit: SEVERE HYPONATREMIA Diagnosis Discharge Diagnosis (1) Chronic hyponatremia: Status: Chronic Code(s): E87.1 - Hypo-osmolality and hyponatremia Plan This 64-year-old gentleman being admitted for severe generalized weakness, gait instability for 1 that, fall today and found severe anemia thrombocytopenia in ED 1. Severe anemia and thrombocytopenia probably due to chronic alcoholism/BM suppression:. H&H 5.7/15%. Platelet count 50,000. MCV 95. RDW 13.6. ALC low, lymphopenia. stool for occult blood negative. Units of PRBC ordered. Reticulocyte panel, LDH, haptoglobin ordered. TSH, B12 and folic acid ordered. Patient was last admitted in April 2020 for advanced hide EGD and colonoscopy as mentioned below EGD on 04/2024 Impressions : - No gross lesions in the duodenal bulb, in the first portion of the duodenum and in the second portion of the duodenum. No specimens collected. - Gastritis. Biopsied. - Small hiatal hernia. No specimens collected. - Z-line regular, 38 cm from the incisors. Biopsied. - The examination was otherwise normal. Patient was prescribed sucralfate twice daily and PPI Pathology shows mild gastritis, GE junction, chronic inflammation but negative for metaplasia.Negative for H. pylori Colonoscopy 05/04/2024 Impression: - Nodular mucosa at the appendiceal orifice. Biopsied. - Tortuous colon. No specimens collected. - Diverticulosis in the sigmoid colon. No specimens collected. - The examination was otherwise normal on direct and retroflexion views. 01/20: Reticulocyte panel shows low reticulocyte count suggestive of bone marrow suppression/no production. Pancytopenia. H&H 7.5/19%. Platelet count 32K, WBC 2.2K. 1 unit of PRBC ordered as patient is symptomatic with dyspnea on exertion. B12 normal. Folic acid low. TSH normal. Advised to follow-up in hematology clinic. Started on thiamine and folic acid. 01/21: H&H 8.4/22.8%. Still has pancytopenia. 01/22: H&H 9.2/25.9%. CBC every other day to prevent blood loss from daily lab draw. 01/23: Blood counts are better. 01/24: Labs reviewed. H&H 8.8/25%. Platelet count 32K. WBC 3.8 thousand. Patient is discharged on ferrous sulfate. Advised follow-up hematology clinic 2. Fall, generalized weakness, ambulatory dysfunction: PT and OT ordered. CK is low suggestive of low muscle mass. AST 49 probably from chronic alcohol use. ALT normal. Left great toe second toe pain more than right great toe. Uric acid normal. X- ray of feet done which shows soft tissue swelling without acute fracture. Empirically IV Solu-Medrol started. 3. Severe hypokalemia and hypomagnesemia: IV potassium and magnesium replacement ordered. Serum phosphorus ordered. 01/20: Serum phosphorus level very low at 0.7. Still has hypokalemia. Magnesium normal. IV phosphate ordered. 01/21: Hypokalemia corrected, K4.9.. Discontinue potassium replacement. 01/23: Patient is doing well. On magnesium chloride. 01/24: K3.9. Normal daily potassium replacement. Electrolytes in normal range. 4. Acute on chronic hyponatremia: Serum sodium was 126 in August 2024. Today 121. Rapidly related to chronic alcohol use with decreased solute intake. IV normal saline ordered 01/22: Sodium is also better. Serum sodium 130. 01/24: Sodium is 131. Bicarb better 17.6. Continue sodium bicarb. 5. Increased anion gap metabolic acidosis: Bicarb is low at about 15.8, anion gap 20. But venous pH is normal 7.38 with with total CO2 17. Mixed pCO2 26.8. Hard to interpret rate with venous ABG. Seems most likely due to alcoholic ketoacidosis. 01/20: Bicarb 16, anion gap 14. Anion gap seems elevated as expected anion gap of albumin 3.1 about 9-10. Started on sodium bicarbonate tablet. 01/23: Patient on sodium bicarbonate tablet and magnesium chloride 01/24: Metabolic acid corrected 6. Right subcrepitant fracture in August 2023 when he had right total hip replacement then. No acute issues 7. Chronic cigarette smoking and chronic alcohol use dependence, [facility] 24-hour monitoring ordered. 8. DVT prophylaxis: Pharmacological prophylaxis contraindicated. Bilateral SCDs Discharge medication reconciliation done. Discharge follow-up instructions completed. Discharge process discussed with the patient and all questions were answered to patient's satisfaction. Follow with PCP in 1 to 2 weeks Total time spent, exact 35 minutes on discharge meds reconciliation, examination, coordination of care with nurses and ancillary staff, review of imaging and blood test and discussion with the patient on follow-up instructions. Living will/advanced directive/end of life care: Patient does not have living will or advanced directive. He does not have dilated power of assistant attorney general for health. After discussion of benefits/risks procedures involved with full code, DNR CC arrest and DNR CC, the patient opted for DNR CC arrest with no intubation Patient doesn't want artificial life support including intubation, tube feed, ventilator and/chest compression, central venous catheter, vasopressor and DC shock if needed Medications at Discharge Home Medications mirtazapine 7.5 mg tablet 7.5 mg PO QHS mental health 04/21/24 pantoprazole 40 mg tablet,delayed release (Protonix) 40 mg PO DAILY #30 tabs 04/26/24 ascorbic acid (vitamin C) 500 mg tablet 500 mg PO DAILY 01/19/25 losartan 100 mg tablet 100 mg PO QHS 01/19/25 ferrous sulfate 325 mg (65 mg iron) tablet 325 mg PO QODAY #30 tabs 01/24/25 folic acid 1 mg tablet 1 mg PO BREAKFAST #0 tabs 01/24/25 potassium chloride 20 mEq tablet,extended release(part/cryst) 20 meq PO DAILYCM 30 days #0 tabs 01/24/25 thiamine HCl (vitamin B1) 100 mg tablet 100 mg PO BREAKFAST #0 tabs 01/24/25 Physical Exam Narrative Please see progress note for the same date Weight / BMI Weight Weight: 163 lb 2.273 oz Body Mass Index (BMI) 23.3 ABG / Lab / Microbiology Data 01/24/25 05:19 01/24/25 05:19 Laboratory: Laboratory Results - last 24 hr 01/24/25 05:19: WBC 3.8 L, RBC 2.76 L, Hgb 8.8 L, Hct 25.1 L, MCV 90.9, MCH 31.9, MCHC 35.1, RDW Std Deviation 57.9 H, RDW Coeff of Adiel 17.4 H, Plt Count 32 L*, MPV 10.9, Immature Gran % (Auto) 4.200 H, Neut % (Auto) 58.8, Lymph % (Auto) 24.7, Ogle % (Auto) 11.5 H, Eos % (Auto) 0.5, Baso % (Auto) 0.3, Absolute Neuts (auto) 2.2, Absolute Lymphs (auto) 0.94, Nucleated RBC % 0, Differential Comment SCANNED, Platelet Estimate MKD DEC, Anisocytosis 1+, Bite Cells RARE, Acanthocytes (Spur) RARE, Sodium 131 L, Potassium 3.9, Chloride 104, Carbon Dioxide 17.6 L, Anion Gap 10, BUN 18, Creatinine 0.93, Estim Creat Clear Calc 83.95, Est GFR (MDRD) Non-Af 93, BUN/Creatinine Ratio 18.9, Glucose 117 H, Calcium 8.4, Iron 64 L, Iron Saturation 37.0, Unsaturated IBC 110 L Microbiology: Microbiology 01/19/25 09:16 Stool Stool Occult Blood (MARIZOL) - Final D/C Instructions DC O2, CPAP, BIPAP Needs Home O2 Discharge instructions: No Meaningful Use Info Meaningful Use Meaningful Use Diagnoses (Choose all that apply): None applicable Ischemic Stroke Statin Dosing Therapy Reference: STATIN DOSE THERAPY REFERENCE: * Patients > 75 years receive moderate or high dose statin therapy. * Patients 75 years or YOUNGER should receive HIGH intensity statin dose unless contraindicated. You will be required to document reason for non-treatment if statin daily dose does not meet guidelines. HIGH DOSE STATIN THERAPY DAILY Atorvastatin > than or = to 40 mg Rosuvastatin > than or = to 20 mg Amlodipine + Atorvastatin > than or = to 2.5/40 mg Ezetimibe + Simvastatin 10/80 mg Simvastatin 80mg Discharge Plan Admission Admit Date/Time: 01/19/25 10:30 Primary Reason for Your Visit: Severe anemia Attending Provider: Shorty Lea Primary Care Provider: Emanuel Macedo Chi Discharge Orders/Prescriptions Prescriptions: New thiamine HCl (vitamin B1) 100 mg Tablet 100 mg PO BREAKFAST Qty: 0 0RF potassium chloride 20 mEq Tablet,Er Particles/Crystals 20 meq PO DAILYCM 30 Days Qty: 0 0RF folic acid 1 mg Tablet 1 mg PO BREAKFAST Qty: 0 0RF ferrous sulfate 325 mg (65 mg iron) tablet 325 mg PO QODAY Qty: 30 2RF Continued mirtazapine 7.5 mg tablet 7.5 mg PO QHS pantoprazole [Protonix] 40 mg tablet,delayed release (DR/EC) 40 mg PO DAILY Qty: 30 0RF Patient Comments: PT ONLY TAKES NEEDED. ascorbic acid (vitamin C) 500 mg tablet 500 mg PO DAILY Patient Comments: PT ONLY TAKES WHEN HE THINKS ABOUT IT. losartan 100 mg tablet 100 mg PO QHS Patient Comments: PT DOES NOT TAKE ALL THE TIME. Referrals / Follow Up: Abiel Zabala MD [Med Staff - Active Staff] - Within 2 Weeks Emanuel Macedo Chi, MD [Primary Care Provider] - Disposition Disposition (needs filled in before D/C Order can be placed): Assisted Facility Charges/Coding Visit Charges Inpatient E&M: 32809 Disch Hosp >30min
--- NOTE | 2025-01-24 16:40 | PHA.DC.MR.R ---
Pharmacy MD Med Reconciliation Pharmacy Service has performed discharge medication reconciliation for this patient. The patient's discharge medication list was reviewed for discrepancies and discrepancies were resolved. Medications at Discharge Home Medications mirtazapine 7.5 mg tablet 7.5 mg PO QHS mental health 04/21/24 pantoprazole 40 mg tablet,delayed release (Protonix) 40 mg PO DAILY reflux #30 tabs 04/26/24 ascorbic acid (vitamin C) 500 mg tablet 500 mg PO DAILY vitamin 01/19/25 losartan 100 mg tablet 100 mg PO QHS blood pressure 01/19/25 ferrous sulfate 325 mg (65 mg iron) tablet 325 mg PO QODAY #30 tabs 01/24/25 folic acid 1 mg tablet 1 mg PO BREAKFAST #0 tabs 01/24/25 potassium chloride 20 mEq tablet,extended release(part/cryst) 20 meq PO DAILYCM 30 days #0 tabs 01/24/25 thiamine HCl (vitamin B1) 100 mg tablet 100 mg PO BREAKFAST #0 tabs 01/24/25
[2025-01-24 16:41] LABS: Ferritin 2300 ng/mL (37-417)
--- NOTE | 2025-01-24 16:42 | CASEMGMT ---
Addendum entered by Melida Tom 01/24/25 17:12: [facility] called the number listed for [facility] pt friend Abril. Abril's sister Divya is pt friend and actual contact. M[facility]ISON updated Divya per pt request. MIKE Kuo Original Note: Social Work Precert has been obtained.? Physician updated and pt is ready for discharge today.? 7000 convalescent form completed in [facility] and sent along with discharge orders to [facility] via [facility].? Transportation arranged with [facility] ambulance for 6:30PM pickup via wheelchair van.? [facility] met with pt and they are agreeable to discharge plan as stated above.? Pt and bedside nurse notified of discharge time. Disposition: [facility], skilled level of care under convalescent stay. MIKE Kuo
[2025-01-24 16:57] LABS: Iron Binding Capacity,Total 174 ug/dL (250-450); PERCENT IRON SATURATION 36.8 % (9-55)
== END 2025-01-24 18:33 | disposition skilled nursing facility (03) | DRG 660 ==
LOC: ED 07:48 → PCU 11:13
PROVIDERS: Admitting Provider Internal Medicine; Emergency Provider Emergency Medicine; PCP Family Medicine Geriatric Medicine; Visit Provider Internal Medicine
DX: D61.818 Other pancytopenia (principal); E87.1 Hypo-osmolality and hyponatremia; Z66 Do not resuscitate; F10.20 Alcohol dependence, uncomplicated; D69.6 Thrombocytopenia, unspecified; E87.29 Other acidosis; E87.6 Hypokalemia; F17.210 Nicotine dependence, cigarettes, uncomplicated; E83.42 Hypomagnesemia; M79.674 Pain in right toe(s); M79.675 Pain in left toe(s); W01.198A Fall on same level from slipping, tripping and stumbling with subsequent striking against other object, initial encounter; R53.1 Weakness; R26.9 Unspecified abnormalities of gait and mobility
CPT/HCPCS: 36415; 70450; 71045; 72170; 73630; 80048; 80053; 81001; 82010; 82077; 82274; 82436; 82550; 82570; 82607; 82728; 82746; 82803; 82977; 83010; 83540; 83550; 83615; 83690; 83735; 83935; 84100; 84133; 84300; 84443; 84550; 85014; 85018; 85025; 85027; 85045; 85610; 85730; 86850; 86880; 86900; 86901; 94668; 97110; 97116; 97162; 97166; 97530; 97802; 99285; 99406; P9016; A4216

== ENCOUNTER → 2025-01-25 | Outpatient (REF) | payer MEDICAID, SELFPAY ==
[2025-01-25 10:03] LABS: Hematocrit 23.3 % (40-54); Hemoglobin 8.1 g/dL (13.0-16.5); Mean Corp Hgb Conc 34.8 g/dL (32-36); Mean Corpuscular Hgb 32.1 pg (27.0-32.0); Mean Corpuscular Volume 92.5 fL (80-94); Mean Platelet Vol. 11.8 fl (6.2-12.0); POSITIVE COUNT YES; Platelet Count 54 K/mm3 (150-450); RBC Distribution Width CV 17.5 % (11.6-14.6); RBC Distribution Width SD 59.5 fl (35.1-43.9); Red Blood Count 2.52 M/mm3 (4.6-6.2); White Blood Count 5.3 K/mm3 (4.4-11.0)
[2025-01-25 10:04] LABS: Scan Indicated on CBC? Y/N NO
[2025-01-25 15:19] LABS: ALB/GLOB Ratio 1.2 RATIO (0.9-2.4); AST(SGOT) 87 U/L (<=37); Alanine Aminotransfer ALT/SGPT 59 U/L (<=46); Albumin, Serum 3.1 g/dL (3.4-4.8); Alkaline Phosphatase 73 U/L (40-129); Anion Gap 10 (5-15); BUN 19 mg/dL (4-19); BUN/Creat Ratio 18.2 RATIO (10-20); Calcium,Total 8.1 mg/dL (7.6-11.0); Carbon Dioxide 18.1 mmol/L (21.0-32.0); Chloride 104 mmol/L (98-108); Cholesterol 126 mg/dL (<=200); Creatinine, Serum 1.03 mg/dL (0.70-1.20); EST Glomerular Filtration Rate 82 (>60); Globulin 2.7 g/dL (2.2-4.2); Glucose 115 mg/dL (70-99); High Density Lipoprotein 44 mg/dL; Low Density Lipoprotein Calc. 65 mg/dL; Magnesium 1.2 mg/dL (1.5-2.2); Potassium 3.5 mmol/L (3.3-5.1); Protein, Total 5.8 g/dL (5.9-8.4); Sodium Level 132 mmol/L (133-145); Total Bilirubin 0.29 mg/dL (0.00-1.30); Triglycerides 86 mg/dL; Very Low Density Lipoprotein 17 mg/dL (5-40); cholesterol:hdl ratio screen 2.89
[2025-01-25 15:21] LABS: Vitamin B12 450 pg/mL (180-914); Vitamin D,25 Hydroxy < 6.0 ng/mL (30-100)
== END | disposition home or self-care (01) ==
LOC: OLS.SW 05:00
PROVIDERS: PCP Family Medicine Geriatric Medicine; Visit Provider Internal Medicine
DX: D64.9 Anemia, unspecified (principal); I10 Essential (primary) hypertension; E78.5 Hyperlipidemia, unspecified; E87.1 Hypo-osmolality and hyponatremia; E87.6 Hypokalemia
CPT/HCPCS: 36415; 80053; 80061; 82306; 82607; 83735; 84443; 85027

== ENCOUNTER → 2025-02-02 | Outpatient (REF) | payer MEDICAID, SELFPAY ==
[2025-02-02 07:09] LABS: Absolute Lymphocyte Count 1.01 X10^3/uL (0.83-4.51); Absolute Neutrophil Count 2.8 X10^3/uL (2.0-7.7); Basophil# 0.04 X10^3/uL; Basophil% 0.9 % (0-1); Eosinophils% 2.3 % (0-5); Hematocrit 25.4 % (40-54); Hemoglobin 8.5 g/dL (13.0-16.5); Lymphocyte # 1.01 X10^3/ul (0.83-4.51); Mean Corp Hgb Conc 33.5 g/dL (32-36); Mean Corpuscular Hgb 32.2 pg (27.0-32.0); Mean Corpuscular Volume 96.2 fL (80-94); Mean Platelet Vol. 9.6 fl (6.2-12.0); Monocyte# 0.39 X10^3/uL; Monocyte% 8.9 % (0-10); NRBC Flagged by Analyzer 0 % (0-5); Neutrophil # 2.81 X10^3/uL (2.7-7.7); Neutrophil % 63.8 % (47-70); Platelet Count 242 K/mm3 (150-450); RBC Distribution Width CV 17.2 % (11.6-14.6); RBC Distribution Width SD 60.9 fl (35.1-43.9); Red Blood Count 2.64 M/mm3 (4.6-6.2); White Blood Count 4.4 K/mm3 (4.4-11.0)
[2025-02-02 07:36] LABS: Anion Gap 11 (5-15); BUN 13 mg/dL (4-19); BUN/Creat Ratio 12.1 RATIO (10-20); Calcium,Total 8.7 mg/dL (7.6-11.0); Carbon Dioxide 18.1 mmol/L (21.0-32.0); Chloride 107 mmol/L (98-108); Creatinine, Serum 1.03 mg/dL (0.70-1.20); EST Glomerular Filtration Rate 82 (>60); Glucose 104 mg/dL (70-99); Magnesium 1.4 mg/dL (1.5-2.2); Phosphorus 4.7 mg/dL (2.7-4.5); Potassium 4.2 mmol/L (3.3-5.1); Sodium Level 136 mmol/L (133-145)
== END | disposition home or self-care (01) ==
LOC: OLS.SW 04:00
PROVIDERS: PCP Family Medicine Geriatric Medicine; Referring Provider Internal Medicine; Visit Provider Internal Medicine
DX: E87.22 Chronic metabolic acidosis (principal); E87.6 Hypokalemia; E87.1 Hypo-osmolality and hyponatremia
CPT/HCPCS: 36415; 80048; 83735; 84100; 85025

== ENCOUNTER → 2025-02-09 | Outpatient (REF) | payer MEDICAID, SELFPAY ==
[2025-02-09 09:15] LABS: Absolute Lymphocyte Count 1.18 X10^3/uL (0.83-4.51); Absolute Neutrophil Count 2.6 X10^3/uL (2.0-7.7); Basophil# 0.02 X10^3/uL; Basophil% 0.5 % (0-1); Eosinophil# 0.14 X10^3/uL; Eosinophils% 3.2 % (0-5); Hematocrit 23.8 % (40-54); Hemoglobin 7.8 g/dL (13.0-16.5); Lymphocyte # 1.18 X10^3/ul (0.83-4.51); Lymphocyte % 26.9 % (19-41); Mean Corp Hgb Conc 32.8 g/dL (32-36); Mean Corpuscular Hgb 31.8 pg (27.0-32.0); Mean Corpuscular Volume 97.1 fL (80-94); Mean Platelet Vol. 9.9 fl (6.2-12.0); Monocyte% 9.1 % (0-10); NRBC Flagged by Analyzer 0 % (0-5); Neutrophil # 2.58 X10^3/uL (2.7-7.7); Neutrophil % 58.9 % (47-70); Platelet Count 163 K/mm3 (150-450); RBC Distribution Width CV 16.7 % (11.6-14.6); RBC Distribution Width SD 59.5 fl (35.1-43.9); Red Blood Count 2.45 M/mm3 (4.6-6.2); White Blood Count 4.4 K/mm3 (4.4-11.0)
[2025-02-09 11:05] LABS: Anion Gap 10 (5-15); BUN 23 mg/dL (4-19); BUN/Creat Ratio 17.8 RATIO (10-20); Calcium,Total 8.8 mg/dL (7.6-11.0); Carbon Dioxide 21.6 mmol/L (21.0-32.0); Chloride 102 mmol/L (98-108); EST Glomerular Filtration Rate 62 (>60); Glucose 120 mg/dL (70-99); Magnesium 1.7 mg/dL (1.5-2.2); Phosphorus 5.6 mg/dL (2.7-4.5); Potassium 4.7 mmol/L (3.3-5.1); Sodium Level 134 mmol/L (133-145)
== END | disposition home or self-care (01) ==
LOC: OLS.SW 05:00
PROVIDERS: PCP Family Medicine Geriatric Medicine; Visit Provider Internal Medicine
DX: D64.9 Anemia, unspecified (principal); E87.6 Hypokalemia; E87.1 Hypo-osmolality and hyponatremia; E87.22 Chronic metabolic acidosis
CPT/HCPCS: 36415; 80048; 83735; 84100; 85025

== ENCOUNTER → 2025-02-16 06:00 | Outpatient (REF) | payer MEDICAID, SELFPAY ==
--- OUTSIDE RECORDS SUMMARY | 2025-02-16 07:01 | XMS RPT_ITS | CCD ---
Author Organization [facility] Care Team Providers Care Resume Specialist Name Role Phone WENDI Soria CNP, SOFIA Knight Primary Care Phys ician Wendi BUSINESS PROCESS MANAGER, BUSINESS PROCESS MANAGER-C Sofia Hernández Primary Care Pr ovider Dr. Tamir Allan Emergency Provider Dr. Patrice Watkins Admit Provider Dr. Patrice Watkins Attending Provider Dr. Patrice Watkins Other Provider Dr. Patrice Watkins Referring Provider [phone] Amaris Marks Attending Provider [phone] Dr. Amaris Marks Other Provider Dr. Obie Funk Other Provider Dr. Shorty Lea Attending Provider Dr. Shorty Lea Other Provider [phone] OBIE FUNK MD Attending Unavailable WENDI PLATT - SWEATBAND SEPARATOR, SOFIA Knight Primary Care U ERNESTO Soares DO Attending Unavailable WENDIPILY PLATT - SWEATBAND SEPARATOR, SOFIA Knight Primary Care U OBIE Valdez MD Attending Unavailable WENDI PLATT - SWEATBAND SEPARATOR, SOFIA Knight Primary Care U SERGIO Mcrae MD Attending Unavailable WENDI PLATT - SWEATBAND SEPARATOR, SOFIA Knight Primary Care U lily ADAME APRN - [place], SOFIA Knight Primary Care U SERGIO Mcrae MD Attending Unavailable Unavailable Primary Care Provider Unavailangel Macedo MD, Dr. Emanuel Chi Primary Care Provider [phone] Rolando MONTERO, Dr. Ragland Attending Provider Marilyn ARZATE, Dr. Humphrey Emergency Provider Venu MONTERO, Dr. Oro Admit Provider Venu MONTERO, Dr. Oro Attending Provider Venu MONTERO, Dr. Oro Other Provider Remington MONTERO, Dr. Emanuel Pagan Primary Care Provider Beronica MONTERO, Dr. Martinez Attending Provider Unavaila Shantell Dean Attending Provider Unavailable Remington MONTERO, Dr. Emanuel Pagan Referring Provider Елена MONTERO, Dr. Iraheta Attending Provider Michelle Malone Attending Unavailable Remington, Emanuel Chi Primary Care Unavailable Obie Funk Attending Unavailable Remington, Emanuel Chi Primary Care Unavailable Remington, Emanuel Chi Attending Unavailable Remington, Emanuel Chi Primary Care Unavailable Michelle Malone Attending Unavailable Remington, Emanuel Chi Primary Care Unavailable Remington, Emanuel Chi Attending Unavailable Remington, Emanuel Chi Primary Care Unavailable Nagajothi Nagapradee Referring Unavailabl e NagajothiFranklinapradee Attending Unavailabl e Remington, Emanuel Chi Primary Care Unavailable Remington, Emanuel Chi Attending Unavailable Remington, Emanuel Chi Primary Care Unavailable Remington, Emanuel Chi Referring Unavailable Remington, Emanuel Chi Attending Unavailable Remington, Emanuel Chi Primary Care Unavailable Tristan Chowdhury Consulting Unavailable Lavell Levine Attending Unavailable Traviseletsky, Grant Admitting Unavailable Remington, Emanuel Chi Primary Care Unavailable Traviseletsky, Grant Consulting Unavailable Michelle Malone Attending Unavailable Remington, Emanuel Chi Primary Care Unavailable Tereletsky, Grant Admitting Unavailable Tereletsangelo Grant Attending Unavailable Tereletsangelo, Grant Consulting Unavailable Remington, Emanuel Chi Primary Care Unavailable Tristan Chowdhury Consulting Unavailable Lavell Levine Attending Unavailable Lavell Levine Consulting Unavailable Venu, Shorty Admitting Unavailable Shorty Lea Attending Unavailable Venu, Shorty Consulting Unavailable Remington, Emanuel Chi Primary Care Unavailable Remington, Emanuel Chi Referring Unavailable Myrtle Christiansen Attending Unavailable Remington, Emanuel Chi Primary Care Unavailable Shantell Hayes Attending Unavailable Remintgon, Emanuel Chi Primary Care Unavailable Tristan Chowdhury Attending Unavailable Remington, Emanuel Chi Primary Care Unavailable Jerrod Restrepo Attending Unavailable Shorty Lea Admitting Unavailable Shorty Lea Attending Unavailable Remington, Emanuel Chi Primary Care Unavailable Jyotsna Anguiano Attending Unavailable Tristan Chowdhury Attending Unavailable Lavell Levine Referring Unavailable Remington, Emanuel Chi Attending Unavailable Remington, Emanuel Chi Primary Care Unavailable Medications Current Medications Medication Drug Class(es) Dates Sig (Normalized) Sig (Original) acetaminophen 325 mg / HYDROcodone bitartrate 5 mg oral tablet (4 sources) Opioid Agonist Start: 05-13-2023 [place] 325- 5 mg oral tablet Dose = 1 tab(s), Oral, q4h, PRN Pain, scale 4-6, 0 Refill(s), 76 Start Date: 05/13/23 Status: Ordered Start: 05-12-2023 End: 05-19-2023 take 1 tablet by mouth every six hours as needed for pain [place] 325- 5 mg oral tablet Dose = 1 tab(s), Oral, q6h, PRN for pain, X 7 day(s), # 28 tab(s), 0 Refill(s), Pharmacy: [id number], Cervical spondylosis, 175, cm, 05/12/23 10:16:00 EDT, Height, 76, kg, 05/12/23 10:16:00 EDT, Dosing Weight Start Date: 05/12/23 Stop Date: 05/19/23 Status: Ordered ascorbic acid 500 mg oral tablet (2 sources) Vitamin C Start: 01-19-2025 take 1 tablet by mouth once daily Ascorbic Acid (Vitamin C) 500 mg tablet Active 500 mg PO DAILY January 19, 2025 12:00am brompheniramine maleate 0.4 mg/ml / dextromethorphan hydrobromide 2 mg/ml / pseudoephedrine hydrochloride 6 mg/ml oral solution (1 source) alpha-Adrenergic Agonist, Uncompetitive J-ptqchk-M-asparta te Receptor Antagonist, Sigma-1 Agonist Start: 10-15-2019 take 10 mL by mouth every eight hours as needed for cough and cough Brompheniramine- Pseudoeph-DM (BROMFED DM) 2-30-10 mg/5 mL syrup Indications: Cough Take 10 mL by mouth three times daily as needed. 120 mL 1 10/15/2019 Active ferrous sulfate 325 mg oral tablet (2 sources) Start: 01-24-2025 take 1 tablet by mouth every other day Ferrous Sulfate 325 mg (65 mg iron) tablet Active 325 mg PO EVERY OTHER DAY January 24, 2025 12:00am folic acid 1 mg oral tablet (2 sources) Start: 01-24-2025 take 1 tablet by mouth at breakfast Folic Acid 1 mg Tablet Active 1 mg PO WITH BREAKFAST 0 January 24, 2025 12:00am losartan potassium 100 mg oral tablet (2 sources) Angiotensin 2 Receptor Nikki Start: 01-19-2025 take 1 tablet by mouth at bedtime Losartan 100 mg tablet Active 100 mg PO AT BEDTIME January 19, 2025 12:00am mirtazapine 7.5 mg oral tablet (2 sources) Start: 04-21-2024 take 1 tablet by mouth at bedtime Mirtazapine 7.5 mg tablet Active 7.5 mg PO AT BEDTIME April 21, 2024 12:00am pantoprazole 40 mg delayed release oral tablet (2 sources) Proton Pump Inhibitor Start: 04-26-2024 take 1 tablet by mouth once daily Pantoprazole (Protonix) 40 mg tablet,delayed release (DR/EC) Active 40 mg PO DAILY April 26, 2024 12:00am microencapsulated potassium chloride 20 meq extended release oral tablet (2 sources) Start: 01-24-2025 take 1 tablet by mouth once daily at mealtime Potassium Chloride 20 mEq Tablet,Er Particles/Brooke ls Active 20 meq PO DAILY WITH MEALS 0 January 24, 2025 12:00am thiamine 100 mg oral tablet (2 sources) Start: 01-24-2025 take 1 tablet by mouth at breakfast Thiamine Hcl (Vitamin B1) 100 mg Tablet Active 100 mg PO WITH BREAKFAST 0 January 24, 2025 12:00am Completed/Discontinued Medications Medication Drug Class(es) Dates Sig (Normalized) Sig (Original) acetaminophen 500 mg oral tablet (3 sources) Start: 08-20-2023 End: 04-21-2024 Acetaminophen 500 mg Tablet Discontinued 1000 mg PO EVERY 8 HOURS August 20, 2023 1:00am April 21, 2024 12:39pm Dmxq-you-uqpecdl. 1000 mg every 8 hourly for 1 week and then as needed for 6 moderate to severe pain. Start: 08-20-2023 Acetaminophen Active 1000 MG PO EVERY 8 HOURS 0 August 20, 2023 12:00am Vvcb-fgo-tlnogzy. 1000 mg every 8 hourly for 1 week and then as needed for 6 moderate to severe pain. apixaban 2.5 mg oral tablet (3 sources) Factor Xa Inhibitor Start: 08-20-2023 End: 04-21-2024 take 1 tablet by mouth twice daily Apixaban (Eliquis) 2.5 mg tablet Discontinued 2.5 mg PO TWICE A DAY 60 August 20, 2023 1:00am April 21, 2024 12:39pm bisacodyl 10 mg rectal suppository (3 sources) Stimulant Laxative Start: 08-21-2023 End: 04-21-2024 Bisacodyl (Dulcolax (Bisacodyl)) 10 mg suppository Discontinued 10 mg RC DAILY as needed for constipation August 21, 2023 1:00am April 21, 2024 12:39pm docusate sodium 50 mg / sennosides, senior living 8.6 mg oral tablet (3 sources) Start: 08-20-2023 End: 04-21-2024 Sennosides-Docusate Sodium (Stool Softener-Stimulant Laxat) 8.6-50 mg Tablet Discontinued 2 {tbl} PO TWICE A DAY August 20, 2023 1:00am April 21, 2024 12:39pm Hdjy-fcq-gitiejx. Labetalol (1 source) beta-Adrenergic Nikki Start: 05-12-2023 End: 05-12-2023 labetalol Start: 05/12/23 2:15:00 PM EDT, Dose = 15 mg, = 3 mL, IV Push, Once, Stop: 05/12/23 2:11:43 PM EDT, 05/12/23 14:10:00 EDT Start Date: 05/12/23 Stop Date: 05/12/23 Status: Completed oxyCODONE hydrochloride 5 mg oral tablet (3 sources) Opioid Agonist Start: 08-20-2023 End: 04-21-2024 take 0.5 mg by mouth every four hours as needed for pain Oxycodone 5 mg Tablet Discontinued 2.5 - 5 mg PO EVERY 4 HOURS NEEDED as needed for Pain Score 4-10 10 August 20, 2023 April 21, 2024 12:39pm 0.5 mg for moderate pain and 5 mg for severe pain. Start: 08-20-2023 take 0.5 mg by mouth every four hours as needed for pain Oxycodone Active 2.5 - 5 MG PO EVERY 4 HOURS NEEDED 10 3 August 20, 2023 0.5 mg for moderate pain and 5 mg for severe pain. polyethylene glycol 3350 50956 mg powder for oral solution (3 sources) Osmotic Laxative Start: 08-20-2023 End: 04-21-2024 Polyethylene Glycol 3350 (Natura-Lax) 17 gram/dose powder Discontinued 17 g PO DAILY 510 August 20, 2023 1:00am April 21, 2024 12:39pm Problems Active Problems Problem Classification Problem Date Documented Date Episodic/Chronic Alcohol-related disorders (1 source) Alcohol dependence; Translations: [Alcohol dependence, uncomplicated] 02-10-2025 Chronic Deficiency and other anemia (1 source) Pancytopenia; Translations: [Other pancytopenia] 02-10-2025 Chronic Comment on above: Acute, noted while c onsuming alcohol, leukopenia and thrombocytopenia resolved with abstinence while residing in a custodial facility for rehab. 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 Disorders of lipid metabolism (1 source) Hyperlipidemia, unspecified; Translations: [Hyperlipidemia, unspecified] Onset: 05-24-2024 Chronic E Codes: Fall (6 sources) Fall on same level from slipping, tripping and stumbling without subsequent striking against object, initial encounter; Translations: [Fall due to wet surface] 08-16-2023 Episodic Esophageal disorders (4 sources) Gastroesophageal reflux disease without esophagitis; Translations: [Gastro-esophageal reflux disease without esophagitis] Onset: 05-12-2023 Chronic Essential hypertension (5 sources) Essential hypertension; Translations: [Essential (primary) hypertension] Onset: 05-13-2023 Chronic Fever of unknown origin (1 source) Fever; Translations: [Fever, unspecified] 12-21-2020 Episodic Fluid and electrolyte disorders (15 sources) Hypokalemia; Translations: [Hypokalemia] Onset: 01-24-2025 08-16-2023 Episodic Other aftercare (2 sources) Blood transfusion finding; Translations: [Blood transfusion, without reported diagnosis] 04-21-2024 Episodic Other connective tissue disease (3 sources) History of total hip arthroplasty; Translations: [Presence of unspecified artificial hip joint] 08-18-2023 Chronic Other connective tissue disease (1 source) Presence of unspecified artificial hip joint; Translations: [Hip joint replacement] 08-21-2023 Chronic Other connective tissue disease (3 sources) Calcific tendinitis of right shoulder 04-24-2023 Episodic Other connective tissue disease (3 sources) Falls 04-15-2023 Episodic Other connective tissue disease (1 source) H/O: arthrodesis; Translations: [Arthrodesis status] Episodic Other liver diseases (3 sources) Steatosis of liver 01-16-2021 Chronic Other lower respiratory disease (3 sources) Chronic cough 04-15-2023 Episodic Other nervous system disorders (3 sources) Impairment of balance 04-15-2023 Episodic Other nervous system disorders (3 sources) Numbness and tingling sensation of skin 04-15-2023 Episodic Other non-traumatic joint disorders (3 sources) Shoulder joint painful on movement 04-15-2023 Episodic Other nutritional; endocrine; and metabolic disorders (2 sources) Hypomagnesemia; Translations: [Hypomagnesemia] 01-19-2025 Chronic Other nutritional; endocrine; and metabolic disorders (3 sources) Overweight 04-15-2023 Episodic Other nutritional; endocrine; and metabolic disorders (2 sources) Abnormal weight loss; Translations: [Abnormal weight loss] 04-21-2024 Episodic Other screening for suspected conditions (not mental disorders or infectious disease) (3 sources) Computed tomography result abnormal 01-16-2021 Chronic Other screening for suspected conditions (not mental disorders or infectious disease) (4 sources) Imaging of gastrointestinal tract abnormal; Translations: [Other specified abnormal findings of blood chemistry] Onset: 02-10-2025 01-16-2021 Episodic Residual codes; unclassified (1 source) Tobacco user; Translations: [Tobacco use] Onset: 05-12-2023 Episodic Residual codes; unclassified (1 source) Past history of procedure; Translations: [Other specified postprocedural states] Episodic Spondylosis; intervertebral disc disorders; other back problems (2 sources) Other spondylosis with myelopathy, cervical region; Translations: [Myelopathy due to cervical spondylosis] Chronic Spondylosis; intervertebral disc disorders; other back problems (1 source) Spinal stenosis in cervical region; Translations: [Spinal stenosis, cervical region] Episodic Superficial injury; contusion (4 sources) Contusion of right shoulder; Translations: [Contusion of right shoulder, initial encounter] 08-17-2023 Episodic Past or Other Problems Problem Classification Problem Date Documented Da te Episodic/Chronic Abdominal hernia (1 source) Diaphragmatic hernia without obstruction or gangrene; Translations: [Diaphragmatic hernia without obstruction or gangrene] Onset: 05-07-2024 Episodic Conditions associated with dizziness or vertigo (1 source) Dizziness and giddiness; Translations: [Dizziness and giddiness] Onset: 06-30-2024 Episodic Fracture of neck of femur (hip) (12 sources) Closed fracture of hip; Translations: [Fracture of unspecified part of neck of right femur, initial encounter for closed fracture] Onset: 09-22-2023 08-16-2023 Episodic Comment on above: Above stated diagnos is code was added to the consultation as it is the approved diagnosis code for the current injury through the bureau of workers compensation Gastritis and duodenitis (1 source) Gastritis, unspecified, without bleeding; Translations: [Gastritis, unspecified, without bleeding] Onset: 05-07-2024 Episodic Malaise and fatigue (3 sources) Asthenia; Translations: [Weakness] Onset: 09-30-2024 01-19-2025 Episodic Other gastrointestinal disorders (1 source) Other specified diseases of intestine; Translations: [Other specified diseases of intestine] Onset: 05-07-2024 Episodic Other nervous system disorders (1 source) Unspecified disturbances of skin sensation; Translations: [Unspecified disturbances of skin sensation] Onset: 04-21-2024 Episodic Results Test Name Value Interpretation Reference Range Facility Oncology Visit Reporton 01-14 Oncology Visit Report Normal [facility] Absolute lymphocyte countOrd ered By: Michelle Loco on 02-09-2025 Lymphocytes Auto (Unsp spec) [#/Vol] 1.18 10*3/uL 0.83-4.[address] [facility] Absolute neutrophil countOrd ered By: Michelle Loco on 02-09-2025 Neutrophils (Bld) [#/Vol] 2.6 10*3/uL 2.0-7.[address] [facility] Anion gap in Serum or Plasma Ordered By: Michellekiara Loco on 02-09-2025 Anion gap [Moles/Vol] 10 mmol/L 01-27 [facility] Automated lymphocyte count a s percentage of total leukocytesOrdered By: Michelle Loco on 02-09-2025 Lymphocytes/100 WBC Auto (Unsp spec) 26.9 % [facility] BUN/creatinine ratioOrdered By: Michelle Loco on 02-09-2025 Urea nitrogen/Creatinine [Mass ratio] 17.8 mg/mg - [facility] Basic Metabolic Profile (BMP )on 02-09-2025 BUN/CRE 17.8 RATIO Normal 07-[address] [facility] Comment on above: Order Comment: 212 Performed By: #### L 500.2500, L100.0100, L501.2300, [id number] ####[facility] [address] [place], [address] Calcium [Mass/Vol] 8.8 mg/dL Normal 7.6-11.0 [facility] Comment on above: Order Comment: 212 Performed By: #### L 500.2500, L100.0100, L501.2300, [id number] ####[facility] [address] [place], [address] Chloride [Moles/Vol] 102 mmol/L Normal 98-108 [facility] Comment on above: Order Comment: 212 Performed By: #### L 500.2500, L100.0100, L501.2300, [id number] ####[facility] [address] [place], [address] CO2 [Moles/Vol] 21.6 mmol/L Normal 21.0-32.[address] [facility] Comment on above: Order Comment: 212 Performed By: #### L 500.2500, L100.0100, L501.2300, [id number] ####[facility] [address] [place], [address] Creatinine [Mass/Vol] 1.30 mg/dL High 0.70-1.20 [facility] Comment on above: Order Comment: 212 Performed By: #### L 500.2500, L100.0100, L501.2300, [id number] ####[facility] [address] [place], [address] GAP 10 Normal 5-[address] [facility] Comment on above: Order Comment: 212 Performed By: #### L 500.2500, L100.0100, L501.2300, [id number] ####[facility] [address] [place], [address] GFR/1.73 sq M.predicted among non-blacks MDRD (S/P/Bld) [Vol rate/Area] 62 mL/min/{1.73_m2} Normal >[address] [facility] Comment on above: Order Comment: 212 Result Comment: mL/m in/1.73m2 CKD-EPI Creatinine Equation (2020) Performed By: #### L 500.2500, L100.0100, L501.2300, [id number] ####[facility] [address] [place], [address] Glucose [Mass/Vol] 120 mg/dL High 70-99 [facility] Comment on above: Order Comment: 212 Performed By: #### L 500.2500, L100.0100, L501.2300, [id number] ####[facility] [address] [place], [address] Potassium [Moles/Vol] 4.7 mmol/L Normal 3.3-5.1 [facility] Comment on above: Order Comment: 212 Performed By: #### L 500.2500, L100.0100, L501.2300, [id number] ####[facility] [address] [place], [address] Sodium [Moles/Vol] 134 mmol/L Normal 133-145 [facility] Comment on above: Order Comment: 212 Performed By: #### L 500.2500, L100.0100, L501.2300, [id number] ####[facility] [address] [place], [address] Urea nitrogen [Mass/Vol] 23 mg/dL High 4-[address] [facility] Comment on above: Order Comment: 212 Performed By: #### L 500.2500, L100.0100, L501.2300, [id number] ####[facility] [address] [place], [address] Basophil percentageOrdered B y: Michelle Loco on 02-09-2025 Basophils/100 WBC (Bld) 0.5 % 0-1 [facility] CBC W/Diff, Automatedon 01-14 Absolute Lymph 1.18 X10 3/uL Normal 0.83-4.[address] [facility] Comment on above: Order Comment: 212 Performed By: #### L 500.2500, L100.0100, L501.2300, [id number] ####[facility] [address] [place], [address] Absolute Neut 2.6 X10 3/uL Normal 2.0-7.[address] [facility] Comment on above: Order Comment: 212 Performed By: #### L 500.2500, L100.0100, L501.2300, [id number] ####[facility] [address] [place], [address] Basophils/100 WBC (Bld) 0.5 % Normal 0-1 [facility] Comment on above: Order Comment: 212 Performed By: #### L 500.2500, L100.0100, L501.2300, [id number] ####[facility] [address] [place], [address] Eosinophils/100 WBC (Bld) 3.2 % Normal 0-[address] [facility] Comment on above: Order Comment: 212 Performed By: #### L 500.2500, L100.0100, L501.2300, [id number] ####[facility] [address] [place], [address] Erythrocyte distribution width (RBC) [Ratio] 16.7 % High 11.6-14.[address] [facility] Comment on above: Order Comment: 212 Performed By: #### L 500.2500, L100.0100, L501.2300, [id number] ####[facility] [address] [place], [address] Hematocrit (Bld) [Volume fraction] 23.8 % Low 40-[address] [facility] Comment on above: Order Comment: 212 Performed By: #### L 500.2500, L100.0100, L501.2300, [id number] ####[facility] [address] [place], [address] Hemoglobin (Bld) [Mass/Vol] 7.8 g/dL Low 13.0-16.[address] [facility] Comment on above: Order Comment: 212 Performed By: #### L 500.2500, L100.0100, L501.2300, [id number] ####[facility] [address] [place], [address] IG% 1.400 High 0.0-0.[address] [facility] Comment on above: Order Comment: 212 Result Comment: IG% - Immature Granulocytes (promyelocytes, myelocytes andmetamyelocytes) > 1% indicates that a LEFT SHIFT is Present. Performed By: #### L 500.2500, L100.0100, L501.2300, L501.5200 ####[facility] [address] [place], [address] Lymphocytes/100 WBC (Bld) 26.9 % Normal 19-[address] [facility] Comment on above: Order Comment: 212 Performed By: #### L 500.2500, L100.0100, L501.2300, L501.5200 ####[facility] [address] [place], [address] MCH (RBC) [Entitic mass] 31.8 pg Normal 27.0-32.[address] [facility] Comment on above: Order Comment: 212 Performed By: #### L 500.2500, L100.0100, L501.2300, [id number] ####[facility] [address] [place], [address] MCHC (RBC) [Mass/Vol] 32.8 g/dL Normal 32-36 [facility] Comment on above: Order Comment: 212 Performed By: #### L 500.2500, L100.0100, L501.2300, [id number] ####[facility] [address] [place], [address] MCV (RBC) [Entitic vol] 97.1 fL High 80-94 [facility] Comment on above: Order Comment: 212 Performed By: #### L 500.2500, L100.0100, L501.2300, [id number] ####[facility] [address] [place], [address] Monocytes/100 WBC (Bld) 9.1 % Normal 0-10 [facility] Comment on above: Order Comment: 212 Performed By: #### L 500.2500, L100.0100, L501.2300, [id number] ####[facility] [address] [place], [address] Neutrophils/100 WBC (Bld) 58.9 % Normal 47-[address] [facility] Comment on above: Order Comment: 212 Performed By: #### L 500.2500, L100.0100, L501.2300, [id number] ####[facility] [address] [place], [address] Nucleated RBC (Bld) [#/Vol] 0 10*3/uL Normal 0-[address] [facility] Comment on above: Order Comment: 212 Performed By: #### L 500.2500, L100.0100, L501.2300, L501.5200 ####[facility] [address] [place], [address] Platelet mean volume (Bld) [Entitic vol] 9.9 fL Normal 6.2-12.[address] [facility] Comment on above: Order Comment: 212 Performed By: #### L 500.2500, L100.0100, L501.2300, L501.5200 ####[facility] [address] [place], [address] Platelets (Bld) [#/Vol] 163 10*3/uL Normal 150-[address] [facility] Comment on above: Order Comment: 212 Performed By: #### L 500.2500, L100.0100, L501.2300, L501.5200 ####[facility] [address] [place], [address] RBC (Bld) [#/Vol] 2.45 10*6/uL Low 4.6-6.2 [facility] Comment on above: Order Comment: 212 Performed By: #### L 500.2500, L100.0100, L501.2300, L501.5200 ####[facility] [address] [place], [address] RDW SD 59.5 fl High 35.1-43.[address] [facility] Comment on above: Order Comment: 212 Performed By: #### L 500.2500, L100.0100, L501.2300, L501.5200 ####[facility] [address] [place], [address] WBC (Bld) [#/Vol] 4.4 10*3/uL Normal 4.4-11.0 [facility] Comment on above: Order Comment: 212 Performed By: #### L 500.2500, L100.0100, L501.2300, L501.5200 ####[facility] [address] [place], [address] Carbon dioxide, total [Moles /volume] in Central venous bloodOrdered By: Michelle Loco on 02-09-2025 CO2 [Moles/Vol] 21.6 mmol/L 21.0-32.[address] [facility] Chloride assayOrdered By: Liborio Loco on 02-09-2025 Chloride [Moles/Vol] 102 mmol/L 98-108 [facility] Eosinophil percentageOrdered By: Michelle Loco on 02-09-2025 Eosinophils/100 WBC (Bld) 3.2 % 0-[address] [facility] Erythrocyte distribution wid th ratioOrdered By: Michelle Loco on 02-09-2025 Erythrocyte distribution width (RBC) [Ratio] 16.7 % High 11.6-14.[address] [facility] Erythrocyte distribution wid th standard deviationOrdered By: Michelle Loco on 02-09-2025 Erythrocyte distribution width (RBC) [Ratio] 59.5 fl High 35.1-43.[address] [facility] Glomerular filtration rate ( GFR) estimation/1.73 sq m using serum, plasma, or whole bOrdered By: Michelle Loco on 02-09-2025 GFR/1.73 sq M.predicted among non-blacks MDRD (S/P/Bld) [Vol rate/Area] 62 mL/min/{1.73_m2} >[address] [facility] Comment on above: mL/min/1.73m2 CKD-EP I Creatinine Equation (2020) Hematocrit Auto (Bld) [Volum e fraction]Ordered By: Michelle Loco on 02-09-2025 Hematocrit (Bld) [Volume fraction] 23.8 % Low 40-[address] [facility] Hemoglobin measurementOrdere d By: Michelle Loco on 02-09-2025 Hemoglobin (Bld) [Mass/Vol] 7.8 g/dL Low 13.0-16.[address] [facility] Immature granulocytes/100 WB C Auto (Bld)Ordered By: Michelle Loco on 02-09-2025 Immature granulocytes/100 WBC (Bld) 1.400 % High 0.0-0.[address] [facility] Comment on above: IG% - Immature Granu locytes (promyelocytes, myelocytes and metamyelocytes) > 1% indicates that a LEFT SHIFT is Present. MCV (mean corpuscular volume ) determinationOrdered By: Michelle Loco on 02-09-2025 MCV (RBC) [Entitic vol] 97.1 fL High 80-94 [facility] Magnesiumon 02-09-2025 Magnesium [Mass/Vol] 1.7 mg/dL Normal 1.5-2.2 [facility] Comment on above: Order Comment: 212 Performed By: #### L 500.2500, L100.0100, L501.2300, L501.5200 ####[facility] [address] [place], [address] Magnesium measurement (mass/ volume)Ordered By: Michelle Loco on 02-09-2025 Magnesium (Unsp spec) [Mass/Vol] 1.7 mg/dL 1.5-2.[address] [facility] Mean corpuscular hemoglobin (MCH) determinationOrdered By: Michelle Loco on 02-09-2025 MCH (RBC) [Entitic mass] 31.8 pg 27.0-32.[address] [facility] Mean corpuscular hemoglobin concentration (MCHC) determinationOrdered By: Michelle Loco on 02-09-2025 MCHC (RBC) [Mass/Vol] 32.8 g/dL 32-36 [facility] Mean platelet volume determi nationOrdered By: Michelle Loco on 02-09-2025 Platelet mean volume (Bld) [Entitic vol] 9.9 fL 6.2-12.[address] [facility] Monocyte percentageOrdered B y: Michelle Loco on 02-09-2025 Monocytes/100 WBC (Bld) 9.1 % 0-10 [facility] Neutrophil percentageOrdered By: Michelle Loco on 02-09-2025 Neutrophils/100 WBC (Bld) 58.9 % 47-[address] [facility] Nucleated red blood cell per centageOrdered By: Michelle Loco on 02-09-2025 Nucleated RBC/100 WBC (Bld) [Ratio] 0 % 0-[address] [facility] Phosphoruson 02-09-2025 Phosphate [Mass/Vol] 5.6 mg/dL High 2.7-4.5 [facility] Comment on above: Order Comment: 212 Performed By: #### L 500.2500, L100.0100, L501.2300, L501.5200 ####[facility] [address] [place], [address] Platelet countOrdered By: Liborio Loco on 02-09-2025 Platelets (Bld) [#/Vol] 163 10*3/uL 150-[address] [facility] Potassium measurement (mass/ volume)Ordered By: Michelle Loco on 02-09-2025 Potassium (Unsp spec) [Mass/Vol] 4.7 mmol/L 3.3-5.[address] [facility] RBC Auto (Bld) [#/Vol]Ordere d By: Michelle Loco on 02-09-2025 RBC (Bld) [#/Vol] 2.45 10*6/uL Low 4.6-6.2 [facility] Serum creatinine measurement (mass/volume)Ordered By: Michelle Loco on 02-09-2025 Creatinine [Mass/Vol] 1.30 mg/dL High 0.70-1.20 [facility] Serum glucose measurement (m ass/volume)Ordered By: Michelle Loco on 02-09-2025 Glucose [Mass/Vol] 120 mg/dL High 70-99 [facility] Serum or plasma calcium ed urement (mass/volume)Ordered By: Michellekiara Loco on 02-09-2025 Calcium [Mass/Vol] 8.8 mg/dL 7.6-11.0 [facility] Serum or plasma urea nitroge n measurement (mass/volume)Ordered By: Michelle Loco on 02-09-2025 Urea nitrogen [Mass/Vol] 23 mg/dL High 4-[address] [facility] Sodium levelOrdered By: Malinda Loco on 02-09-2025 Sodium [Moles/Vol] 134 mmol/L 133-145 [facility] White blood cell (WBC) count Ordered By: Michelle Loco on 02-09-2025 WBC (Bld) [#/Vol] 4.4 10*3/uL 4.4-11.0 [facility] CBC W/Diff, Automatedon 01-14 PATH REV Reviewed Normal [facility] Comment on above: Order Comment: CRITI MODESTO VALUE CALLED TO ABIODUN01/22/25 0739 Evangelina Ayon.RESULTS READ BACK BY SAME. Result Comment: SEE REPORT IN PATIENT'S EMR AMENDED REPORT 02/03/25 1545 PATH REV previously reported as: January frandy Performed By: #### L 500.4050, L100.0100 ####[facility] [address] [place], [address] Absolute lymphocyte countOrd ered By: Michelle Loco on 02-02-2025 Lymphocytes Auto (Unsp spec) [#/Vol] 1.01 10*3/uL 0.83-4.[address] [facility] Absolute neutrophil countOrd ered By: Michelle Loco on 02-02-2025 Neutrophils (Bld) [#/Vol] 2.8 10*3/uL 2.0-7.[address] [facility] Anion gap in Serum or Plasma Ordered By: Michelle Loco on 02-02-2025 Anion gap [Moles/Vol] 11 mmol/L 5- [facility] Automated lymphocyte count a s percentage of total leukocytesOrdered By: Michelle Loco on 02-02-2025 Lymphocytes/100 WBC Auto (Unsp spec) 23.0 % [facility] BUN/creatinine ratioOrdered By: Michelle Loco on 02-02-2025 Urea nitrogen/Creatinine [Mass ratio] 12.1 mg/mg - [facility] Basic Metabolic Profile (BMP )on 02-02-2025 BUN/CRE 12.1 RATIO Normal - [facility] Comment on above: Order Comment: 212 Performed By: #### L 501.2300, L501.5200, L500.2500, L100.0100 ####[facility] [address] [place], [address] Calcium [Mass/Vol] 8.7 mg/dL Normal 7.6-11.0 [facility] Comment on above: Order Comment: 212 Performed By: #### L 501.2300, L501.5200, L500.2500, L100.0100 ####[facility] [address] [place], [address] Chloride [Moles/Vol] 107 mmol/L Normal 98-108 [facility] Comment on above: Order Comment: 212 Performed By: #### L 501.2300, L501.5200, L500.2500, L100.0100 ####[facility] [address] [place], [address] CO2 [Moles/Vol] 18.1 mmol/L Low 21.0-32.[address] [facility] Comment on above: Order Comment: 212 Performed By: #### L 501.2300, L501.5200, L500.2500, L100.0100 ####[facility] [address] [place], [address] Creatinine [Mass/Vol] 1.03 mg/dL Normal 0.70-1.20 [facility] Comment on above: Order Comment: 212 Performed By: #### L 501.2300, L501.5200, L500.2500, L100.0100 ####[facility] [address] [place], [address] GAP 11 Normal 5-[address] [facility] Comment on above: Order Comment: 212 Performed By: #### L 501.2300, L501.5200, L500.2500, L100.0100 ####[facility] [address] [place], [address] GFR/1.73 sq M.predicted among non-blacks MDRD (S/P/Bld) [Vol rate/Area] 82 mL/min/{1.73_m2} Normal >[address] [facility] Comment on above: Order Comment: 212 Result Comment: mL/m in/1.73m2 CKD-EPI Creatinine Equation (2020) Performed By: #### L 501.2300, L501.5200, L500.2500, L100.0100 ####[facility] [address] [place], [address] Glucose [Mass/Vol] 104 mg/dL High 70-99 [facility] Comment on above: Order Comment: 212 Performed By: #### L 501.2300, L501.5200, L500.2500, L100.0100 ####[facility] [address], [address] Potassium [Moles/Vol] 4.2 mmol/L Normal 3.3-5.1 [facility] Comment on above: Order Comment: 212 Performed By: #### L 501.2300, L501.5200, L500.2500, L100.0100 ####[facility] [address] [place], [address] Sodium [Moles/Vol] 136 mmol/L Normal 133-145 [facility] Comment on above: Order Comment: 212 Performed By: #### L 501.2300, L501.5200, L500.2500, L100.0100 ####[facility] [address] [place], [address] Urea nitrogen [Mass/Vol] 13 mg/dL Normal 4-[address] [facility] Comment on above: Order Comment: 212 Performed By: #### L 501.2300, L501.5200, L500.2500, L100.0100 ####[facility] [address] [place], [address] Basophil percentageOrdered B y: Michelle Loco on 02-02-2025 Basophils/100 WBC (Bld) 0.9 % 0-1 [facility] CBC W/Diff, Automatedon 01-14 Absolute Lymph 1.01 X10 3/uL Normal 0.83-4.[address] [facility] Comment on above: Order Comment: 212 Performed By: #### L 501.2300, L501.5200, L500.2500, L100.0100 ####[facility] [address] [place], [address] Absolute Neut 2.8 X10 3/uL Normal 2.0-7.[address] [facility] Comment on above: Order Comment: 212 Performed By: #### L 501.2300, L501.5200, L500.2500, L100.0100 ####[facility] [address] [place], [address] Basophils/100 WBC (Bld) 0.9 % Normal 0-1 [facility] Comment on above: Order Comment: 212 Performed By: #### L 501.2300, L501.5200, L500.2500, L100.0100 ####[facility] [address] [place], [address] Eosinophils/100 WBC (Bld) 2.3 % Normal 0-[address] [facility] Comment on above: Order Comment: 212 Performed By: #### L 501.2300, L501.5200, L500.2500, L100.0100 ####[facility] [address] [place], [address] Erythrocyte distribution width (RBC) [Ratio] 17.2 % High 11.6-14.[address] [facility] Comment on above: Order Comment: 212 Performed By: #### L 501.2300, L501.5200, L500.2500, L100.0100 ####[facility] [address] [place], [address] Hematocrit (Bld) [Volume fraction] 25.4 % Low 40-[address] [facility] Comment on above: Order Comment: 212 Performed By: #### L 501.2300, L501.5200, L500.2500, L100.0100 ####[facility] [address] [place], [address] Hemoglobin (Bld) [Mass/Vol] 8.5 g/dL Low 13.0-16.[address] [facility] Comment on above: Order Comment: 212 Performed By: #### L 501.2300, L501.5200, L500.2500, L100.0100 ####[facility] [address] [place], [address] IG% 1.100 High 0.0-0.[address] [facility] Comment on above: Order Comment: 212 Result Comment: IG% - Immature Granulocytes (promyelocytes, myelocytes andmetamyelocytes) > 1% indicates that a LEFT SHIFT is Present. Performed By: #### L 501.2300, L501.5200, L500.2500, L100.0100 ####[facility] [address] [place], [address] Lymphocytes/100 WBC (Bld) 23.0 % Normal 19-[address] [facility] Comment on above: Order Comment: 212 Performed By: #### L 501.2300, L501.5200, L500.2500, L100.0100 ####[facility] [address] [place], [address] MCH (RBC) [Entitic mass] 32.2 pg High 27.0-32.[address] [facility] Comment on above: Order Comment: 212 Performed By: #### L 501.2300, L501.5200, L500.2500, L100.0100 ####[facility] [address] [place], [address] MCHC (RBC) [Mass/Vol] 33.5 g/dL Normal 32-36 [facility] Comment on above: Order Comment: 212 Performed By: #### L 501.2300, L501.5200, L500.2500, L100.0100 ####[facility] [address] [place], [address] MCV (RBC) [Entitic vol] 96.2 fL High 80-94 [facility] Comment on above: Order Comment: 212 Performed By: #### L 501.2300, L501.5200, L500.2500, L100.0100 ####[facility] [address] [place], [address] Monocytes/100 WBC (Bld) 8.9 % Normal 0-10 [facility] Comment on above: Order Comment: 212 Performed By: #### L 501.2300, L501.5200, L500.2500, L100.0100 ####[facility] [address] [place], [address] Neutrophils/100 WBC (Bld) 63.8 % Normal 47-[address] [facility] Comment on above: Order Comment: 212 Performed By: #### L 501.2300, L501.5200, L500.2500, L100.0100 ####[facility] [address] [place], [address] Nucleated RBC (Bld) [#/Vol] 0 10*3/uL Normal 0-[address] [facility] Comment on above: Order Comment: 212 Performed By: #### L 501.2300, L501.5200, L500.2500, L100.0100 ####[facility] [address] [place], [address] Platelet mean volume (Bld) [Entitic vol] 9.6 fL Normal 6.2-12.[address] [facility] Comment on above: Order Comment: 212 Performed By: #### L 501.2300, L501.5200, L500.2500, L100.0100 ####[facility] [address] [place], [address] Platelets (Bld) [#/Vol] 242 10*3/uL Normal 150-[address] [facility] Comment on above: Order Comment: 212 Performed By: #### L 501.2300, L501.5200, L500.2500, L100.0100 ####[facility] [address] [place], [address] RBC (Bld) [#/Vol] 2.64 10*6/uL Low 4.6-6.2 [facility] Comment on above: Order Comment: 212 Performed By: #### L 501.2300, L501.5200, L500.2500, L100.0100 ####[facility] [address] [place], [address] RDW SD 60.9 fl High 35.1-43.[address] [facility] Comment on above: Order Comment: 212 Performed By: #### L 501.2300, L501.5200, L500.2500, L100.0100 ####[facility] [address] [place], [address] WBC (Bld) [#/Vol] 4.4 10*3/uL Normal 4.4-11.0 [facility] Comment on above: Order Comment: 212 Performed By: #### L 501.0640, L501.5200, L500.2500, L100.0100 ####[facility] [address] [place], [address] Carbon dioxide, total [Moles /volume] in Central venous bloodOrdered By: Michelle Loco on 02-02-2025 CO2 [Moles/Vol] 18.1 mmol/L Low 21.0-32.[address] [facility] Chloride assayOrdered By: Liborio Loco on 02-02-2025 Chloride [Moles/Vol] 107 mmol/L 98-108 [facility] Eosinophil percentageOrdered By: Michelle Loco on 02-02-2025 Eosinophils/100 WBC (Bld) 2.3 % 0-[address] [facility] Erythrocyte distribution wid th ratioOrdered By: Michelle Loco on 02-02-2025 Erythrocyte distribution width (RBC) [Ratio] 17.2 % High 11.6-14.[address] [facility] Erythrocyte distribution wid th standard deviationOrdered By: Michellekiara Loco on 02-02-2025 Erythrocyte distribution width (RBC) [Ratio] 60.9 fl High 35.1-43.[address] [facility] Glomerular filtration rate ( GFR) estimation/1.73 sq m using serum, plasma, or whole bOrdered By: Michelle Loco on 02-02-2025 GFR/1.73 sq M.predicted among non-blacks MDRD (S/P/Bld) [Vol rate/Area] 82 mL/min/{1.73_m2} >[address] [facility] Comment on above: mL/min/1.73m2 CKD-EP I Creatinine Equation (2020) Hematocrit Auto (Bld) [Volum e fraction]Ordered By: Michelle Loco on 02-02-2025 Hematocrit (Bld) [Volume fraction] 25.4 % Low 40-[address] [facility] Hemoglobin measurementOrdere d By: Michelle Loco on 02-02-2025 Hemoglobin (Bld) [Mass/Vol] 8.5 g/dL Low 13.0-16.[address] [facility] Immature granulocytes/100 WB C Auto (Bld)Ordered By: Michelle Loco on 02-02-2025 Immature granulocytes/100 WBC (Bld) 1.100 % High 0.0-0.[address] [facility] Comment on above: IG% - Immature Granu locytes (promyelocytes, myelocytes and metamyelocytes) > 1% indicates that a LEFT SHIFT is Present. MCV (mean corpuscular volume ) determinationOrdered By: Michelle Loco on 02-02-2025 MCV (RBC) [Entitic vol] 96.2 fL High 80-94 [facility] Magnesiumon 02-02-2025 Magnesium [Mass/Vol] 1.4 mg/dL Low 1.5-2.2 [facility] Comment on above: Order Comment: 212 Performed By: #### L 501.2300, L501.5200, L500.2500, L100.0100 ####[facility] [address] [place], [address] Magnesium measurement (mass/ volume)Ordered By: Michelle Loco on 02-02-2025 Magnesium (Unsp spec) [Mass/Vol] 1.4 mg/dL Low 1.5-2.[address] [facility] Mean corpuscular hemoglobin (MCH) determinationOrdered By: Michelle Loco on 02-02-2025 MCH (RBC) [Entitic mass] 32.2 pg High 27.0-32.[address] [facility] Mean corpuscular hemoglobin concentration (MCHC) determinationOrdered By: Michelle Loco on 02-02-2025 MCHC (RBC) [Mass/Vol] 33.5 g/dL 32-36 [facility] Mean platelet volume determi nationOrdered By: Michelle Loco on 02-02-2025 Platelet mean volume (Bld) [Entitic vol] 9.6 fL 6.2-12.[address] [facility] Monocyte percentageOrdered B y: iMchelle Loco on 02-02-2025 Monocytes/100 WBC (Bld) 8.9 % 0-10 [facility] Neutrophil percentageOrdered By: Michelle Loco on 02-02-2025 Neutrophils/100 WBC (Bld) 63.8 % 47-[address] [facility] Nucleated red blood cell per centageOrdered By: Michelle Loco on 02-02-2025 Nucleated RBC/100 WBC (Bld) [Ratio] 0 % 0-[address] [facility] Phosphoruson 02-02-2025 Phosphate [Mass/Vol] 4.7 mg/dL High 2.7-4.5 [facility] Comment on above: Order Comment: 212 Performed By: #### L 501.2300, L501.5200, L500.2500, L100.0100 ####[facility] [address] [place], [address] Platelet countOrdered By: Liborio Loco on 02-02-2025 Platelets (Bld) [#/Vol] 242 10*3/uL 150-[address] [facility] Potassium measurement (mass/ volume)Ordered By: Michelle Loco on 02-02-2025 Potassium (Unsp spec) [Mass/Vol] 4.2 mmol/L 3.3-5.[address] [facility] RBC Auto (Bld) [#/Vol]Ordere d By: Michelle Loco on 02-02-2025 RBC (Bld) [#/Vol] 2.64 10*6/uL Low 4.6-6.2 [facility] Serum creatinine measurement (mass/volume)Ordered By: Michelle Loco on 02-02-2025 Creatinine [Mass/Vol] 1.03 mg/dL 0.70-1.20 [facility] Serum glucose measurement (m ass/volume)Ordered By: Michelle Loco on 02-02-2025 Glucose [Mass/Vol] 104 mg/dL High 70-99 [facility] Serum or plasma calcium ed urement (mass/volume)Ordered By: Michelle Loco on 02-02-2025 Calcium [Mass/Vol] 8.7 mg/dL 7.6-11.0 [facility] Serum or plasma urea nitroge n measurement (mass/volume)Ordered By: Michelle Loco on 05-21-2025 Urea nitrogen [Mass/Vol] 13 mg/dL - [facility] Sodium levelOrdered By: Malinda Loco on 02-02-2025 Sodium [Moles/Vol] 136 mmol/L 133-145 [facility] White blood cell (WBC) count Ordered By: Michelle Loco on 02-02-2025 WBC (Bld) [#/Vol] 4.4 10*3/uL 4.4-11.0 [facility] Basic Metabolic Profile (BMP )on 01-26-2025 BUN Normal - [facility] Comment on above: Result Comment: Canc elled via OM: Order cancelled - Patient discharged Performed By: #### L 500.2500 ####[facility] [address] [place], [address] BUN/CRE Normal - [facility] Comment on above: Result Comment: Canc elled via OM: Order cancelled - Patient discharged Performed By: #### L 500.2500 ####[facility] [address] [place], [address] Calcium Normal 7.6-11.[address] [facility] Comment on above: Result Comment: Canc elled via OM: Order cancelled - Patient discharged Performed By: #### L 500.2500 ####[facility] [address] [place], [address] CL Normal 98-[address] [facility] Comment on above: Result Comment: Canc elled via OM: Order cancelled - Patient discharged Performed By: #### L 500.2500 ####[facility] [address] [place], [address] CO2 Normal 21.0-32.[address] [facility] Comment on above: Result Comment: Canc elled via OM: Order cancelled - Patient discharged Performed By: #### L 500.2500 ####[facility] [address] [place], [address] CREAT,SERUM Normal 0.70-1.[address] [facility] Comment on above: Result Comment: Canc elled via OM: Order cancelled - Patient discharged Performed By: #### L 500.2500 ####[facility] [address] [place], [address] eGFR Normal >[address] [facility] Comment on above: Result Comment: Canc elled via OM: Order cancelled - Patient discharged Performed By: #### L 500.2500 ####[facility] [address] [place], [address] GAP Normal 5-[address] [facility] Comment on above: Result Comment: Canc elled via OM: Order cancelled - Patient discharged Performed By: #### L 500.2500 ####[facility] [address] [place], [address] GLU Normal 70-[address] [facility] Comment on above: Result Comment: Canc elled via OM: Order cancelled - Patient discharged Performed By: #### L 500.2500 ####[facility] [address] [place], [address] Potassium Normal 3.3-5.[address] [facility] [facility] [facility] Comment on above: Result Comment: Canc elled via OM: Order cancelled - Patient discharged Performed By: #### L 500.2500 ####[facility] [address] [place], [address] Basic Metabolic Profile (BMP) Normal 133-[address] [facility] Comment on above: Result Comment: Canc elled via OM: Order cancelled - Patient discharged Performed By: #### L 500.2500 ####[facility] [address] [place], [address] Anion gap in Serum or Plasma Ordered By: Michelle Loco on 01-25-2025 Anion gap [Moles/Vol] 10 mmol/L 5-15 [facility] BUN/creatinine ratioOrdered By: Michelle Loco on 01-25-2025 Urea nitrogen/Creatinine [Mass ratio] 18.2 mg/mg 10-[address] [facility] Bilirubin, totalOrdered By: Michelle Loco on 01-25-2025 Bilirubin [Mass/Vol] 0.29 mg/dL 0.00-1.30 [facility] CBC-Complete Blood Cnt No Di ffon 01-25-2025 Erythrocyte distribution width (RBC) [Ratio] 17.5 % High 11.6-14.[address] [facility] Comment on above: Order Comment: 212.1 Performed By: #### L 503.0106, L500.4100, L501.9520, L100.0500, L501.5200, L500.4050, L506.1001 ####[facility] [address] [place], [address] Hematocrit (Bld) [Volume fraction] 23.3 % Low 40-[address] [facility] Comment on above: Order Comment: 212.1 Performed By: #### L 503.0106, L500.4100, L501.9520, L100.0500, L501.5200, L500.4050, L506.1001 ####[facility] [address] [place], [address] Hemoglobin (Bld) [Mass/Vol] 8.1 g/dL Low 13.0-16.[address] [facility] Comment on above: Order Comment: 212.1 Performed By: #### L 503.0106, L500.4100, L501.9520, L100.0500, L501.5200, L500.4050, L506.1001 ####[facility] [address] [place], [address] MCH (RBC) [Entitic mass] 32.1 pg High 27.0-32.[address] [facility] Comment on above: Order Comment: 212.1 Performed By: #### L 503.0106, L500.4100, L501.9520, L100.0500, L501.5200, L500.4050, L506.1001 ####[facility] [address] [place], [address] MCHC (RBC) [Mass/Vol] 34.8 g/dL Normal 32-36 [facility] Comment on above: Order Comment: 212.1 Performed By: #### L 503.0106, L500.4100, L501.9520, L100.0500, L501.5200, L500.4050, L506.1001 ####[facility] [address] [place], [address] MCV (RBC) [Entitic vol] 92.5 fL Normal 80-94 [facility] Comment on above: Order Comment: 212.1 Performed By: #### L 503.0106, L500.4100, L501.9520, L100.0500, L501.5200, L500.4050, L506.1001 ####[facility] [address] [place], [address] Platelet mean volume (Bld) [Entitic vol] 11.8 fL Normal 6.2-12.[address] [facility] Comment on above: Order Comment: 212.1 Performed By: #### L 503.0106, L500.4100, L501.9520, L100.0500, L501.5200, L500.4050, L506.1001 ####[facility] [address] [place], [address] Platelets (Bld) [#/Vol] 54 10*3/uL Low 150-450 [facility] Comment on above: Order Comment: 212.1 Performed By: #### L 503.0106, L500.4100, L501.9520, L100.0500, L501.5200, L500.4050, L506.1001 ####[facility] [address] [place], [address] RBC (Bld) [#/Vol] 2.52 10*6/uL Low 4.6-6.2 [facility] Comment on above: Order Comment: 212.1 Performed By: #### L 503.0106, L500.4100, L501.9520, L100.0500, L501.5200, L500.4050, L506.1001 ####[facility] [address] [place], [address] RDW SD 59.5 fl High 35.1-43.[address] [facility] Comment on above: Order Comment: 212.1 Performed By: #### L 503.0106, L500.4100, L501.9520, L100.0500, L501.5200, L500.4050, L506.1001 ####[facility] [address] [place], [address] WBC (Bld) [#/Vol] 5.3 10*3/uL Normal 4.4-11.0 [facility] Comment on above: Order Comment: 212.1 Performed By: #### L 503.0106, L500.4100, L501.9520, L100.0500, L501.5200, L500.4050, L506.1001 ####[facility] [address] [place], [address] Calculated very low density lipoprotein (VLDL) cholesterol measurementOrdered By: Michelle Loco on 01-25-2025 Calculated very low density lipoprotein (VLDL) cholesterol measurement 17 mg/dL 5-[address] [facility] Carbon dioxide, total [Moles /volume] in Central venous bloodOrdered By: Michelle Loco on 01-25-2025 CO2 [Moles/Vol] 18.1 mmol/L Low 21.0-32.[address] [facility] Chloride assayOrdered By: Liborio Loco on 01-25-2025 Chloride [Moles/Vol] 104 mmol/L 98-108 [facility] Comprehensive Metabolic Prof ilon 01-25-2025 Albumin [Mass/Vol] 3.1 g/dL Low 3.4-4.8 [facility] Comment on above: Order Comment: 212.1 Performed By: #### L 503.0106, L500.4100, L501.9520, L100.0500, L501.5200, L500.4050, L506.1001 ####[facility] [address] [place], [address] Albumin/Globulin [Mass ratio] 1.2 {ratio} Normal 0.9-2.[address] [facility] Comment on above: Order Comment: 212.1 Performed By: #### L 503.0106, L500.4100, L501.9520, L100.0500, L501.5200, L500.4050, L506.1001 ####[facility] [address] [place], [address] ALK PHOS 73 U/L Normal 40-[address] [facility] Comment on above: Order Comment: .1 Performed By: #### L 503.0106, L500.4100, L501.9520, L100.0500, L501.5200, L500.4050, L506.1001 ####[facility] [address] [place], [address] ALT [Catalytic activity/Vol] 59 U/L High <=[address] [facility] Comment on above: Order Comment: 212.1 Performed By: #### L 503.0106, L500.4100, L501.9520, L100.0500, L501.5200, L500.4050, L506.1001 ####[facility] [address] [place], [address] AST [Catalytic activity/Vol] 87 U/L High <=[address] [facility] Comment on above: Order Comment: 212.1 Performed By: #### L 503.0106, L500.4100, L501.9520, L100.0500, L501.5200, L500.4050, L506.1001 ####[facility] [address] [place], [address] Bilirubin [Mass/Vol] 0.29 mg/dL Normal 0.00-1.30 [facility] Comment on above: Order Comment: 212.1 Performed By: #### L 503.0106, L500.4100, L501.9520, L100.0500, L501.5200, L500.4050, L506.1001 ####[facility] [address] [place], [address] BUN/CRE 18.2 RATIO Normal 10-[address] [facility] Comment on above: Order Comment: 212.1 Performed By: #### L 503.0106, L500.4100, L501.9520, L100.0500, L501.5200, L500.4050, L506.1001 ####[facility] [address] [place], [address] Calcium [Mass/Vol] 8.1 mg/dL Normal 7.6-11.0 [facility] Comment on above: Order Comment: 212.1 Performed By: #### L 503.0106, L500.4100, L501.9520, L100.0500, L501.5200, L500.4050, L506.1001 ####[facility] [address] [place], [address] Chloride [Moles/Vol] 104 mmol/L Normal 98-108 [facility] Comment on above: Order Comment: 212.1 Performed By: #### L 503.0106, L500.4100, L501.9520, L100.0500, L501.5200, L500.4050, L506.1001 ####[facility] [address] [place], [address] CO2 [Moles/Vol] 18.1 mmol/L Low 21.0-32.[address] [facility] Comment on above: Order Comment: 212.1 Performed By: #### L 503.0106, L500.4100, L501.9520, L100.0500, L501.5200, L500.4050, L506.1001 ####[facility] [address] [place], [address] Creatinine [Mass/Vol] 1.03 mg/dL Normal 0.70-1.20 [facility] Comment on above: Order Comment: 212.1 Performed By: #### L 503.0106, L500.4100, L501.9520, L100.0500, L501.5200, L500.4050, L506.1001 ####[facility] [address] [place], [address] GAP 10 Normal 5-[address] [facility] Comment on above: Order Comment: 212.1 Performed By: #### L 503.0106, L500.4100, L501.9520, L100.0500, L501.5200, L500.4050, L506.1001 ####[facility] [address] [place], [address] GFR/1.73 sq M.predicted among non-blacks MDRD (S/P/Bld) [Vol rate/Area] 82 mL/min/{1.73_m2} Normal >[address] [facility] Comment on above: Order Comment: 212.1 Result Comment: mL/m in/1.73m2 CKD-EPI Creatinine Equation (2020) Performed By: #### L 503.0106, L500.4100, L501.9520, L100.0500, L501.5200, L500.4050, L506.1001 ####[facility] [address] [place], [address] Globulin (S) [Mass/Vol] 2.7 g/dL Normal 2.2-4.2 [facility] Comment on above: Order Comment: 212.1 Performed By: #### L 503.0106, L500.4100, L501.9520, L100.0500, L501.5200, L500.4050, L506.1001 ####[facility] [address] [place], [address] Glucose [Mass/Vol] 115 mg/dL High 70-99 [facility] Comment on above: Order Comment: 212.1 Performed By: #### L 503.0106, L500.4100, L501.9520, L100.0500, L501.5200, L500.4050, L506.1001 ####[facility] [address] [place], [address] Potassium [Moles/Vol] 3.5 mmol/L Normal 3.3-5.1 [facility] Comment on above: Order Comment: 212.1 Performed By: #### L 503.0106, L500.4100, L501.9520, L100.0500, L501.5200, L500.4050, L506.1001 ####[facility] [address] [place], [address] Sodium [Moles/Vol] 132 mmol/L Low 133-145 [facility] Comment on above: Order Comment: 212.1 Performed By: #### L 503.0106, L500.4100, L501.9520, L100.0500, L501.5200, L500.4050, L506.1001 ####[facility] [address] [place], [address] T PROT 5.8 g/dL Low 5.9-8.[address] [facility] Comment on above: Order Comment: 212.1 Performed By: #### L 503.0106, L500.4100, L501.9520, L100.0500, L501.5200, L500.4050, L506.1001 ####[facility] [address] [place], [address] Urea nitrogen [Mass/Vol] 19 mg/dL Normal 4-[address] [facility] Comment on above: Order Comment: 212.1 Performed By: #### L 503.0106, L500.4100, L501.9520, L100.0500, L501.5200, L500.4050, L506.1001 ####[facility] [address] [place], [address] Erythrocyte distribution wid th ratioOrdered By: Michelle Loco on 01-25-2025 Erythrocyte distribution width (RBC) [Ratio] 17.5 % High 11.6-14.[address] [facility] Erythrocyte distribution wid th standard deviationOrdered By: Michelle Loco on 01-25-2025 Erythrocyte distribution width (RBC) [Ratio] 59.5 fl High 35.1-43.[address] [facility] Glomerular filtration rate ( GFR) estimation/1.73 sq m using serum, plasma, or whole bOrdered By: Michelle Loco on 01-25-2025 GFR/1.73 sq M.predicted among non-blacks MDRD (S/P/Bld) [Vol rate/Area] 82 mL/min/{1.73_m2} >[address] [facility] Comment on above: mL/min/1.73m2 CKD-EP I Creatinine Equation (2020) Hematocrit Auto (Bld) [Volum e fraction]Ordered By: Michelle Loco on 01-25-2025 Hematocrit (Bld) [Volume fraction] 23.3 % Low 40-[address] [facility] Hemoglobin measurementOrdere d By: Michelle Loco on 01-25-2025 Hemoglobin (Bld) [Mass/Vol] 8.1 g/dL Low 13.0-16.[address] [facility] LDL calc ser/plasOrdered By: Michelle Loco on 01-25-2025 Cholesterol in LDL [Mass/Vol] 65 mg/dL [facility] Comment on above: Ouxcrdrxem=738-252 m g/dL & Higher Epva=429 mg/dL or greater Laboratory - Chemistry and C hemistry - challengeOrdered By: Michelle Loco on 01-25-2025 AST [Catalytic activity/Vol] 87 U/L High <[address] [facility] Lipid Profileon 01-25-2025 CHOL:HDL 2.[address] [facility] Comment on above: Order Comment: 212.1 Performed By: #### L 503.0106, L500.4100, L501.9520, L100.0500, L501.5200, L500.4050, L506.1001 ####[facility] [address] [place], [address] Cholesterol [Mass/Vol] 126 mg/dL Normal <=200 [facility] Comment on above: Order Comment: 212.1 Result Comment: Chol esterol level, Desirable <200 mg/dLBorderline high cholesterol 200-239 mg/dLHigh cholesterol >=240 mg/dLRecommendations of the NCEP Adult Treatment Panel for thefollowing risk-cutoff thresholds for the [place] [facility]. Performed By: #### L 503.0106, L500.4100, L501.9520, L100.0500, L501.5200, L500.4050, L506.1001 ####[facility] [address] [place], [address] Cholesterol in HDL [Mass/Vol] 44 mg/dL Normal [facility] Comment on above: Order Comment: 212.1 Result Comment: Salome onal Cholesterol Education Program (NCEP) guidelines:<40 mg/dL: Low HDL-cholesterol (major risk factor for CHD)>= 60 mg/dL: High HDL-cholesterol (negative risk factor forCHD)HDL-cholesterol is affected by a number of factors, e.g.smoking, exercise, hormones, sex and age. Performed By: #### L 503.0106, L500.4100, L501.9520, L100.0500, L501.5200, L500.4050, L506.1001 ####[facility] [address] [place], [address] Cholesterol in LDL [Mass/Vol] 65 mg/dL Normal [facility] Comment on above: Order Comment: 212.1 Result Comment: Bord sexdxl=000-628 mg/dL Higher Wrfu=293 mg/dL or greater Performed By: #### L 503.0106, L500.4100, L501.9520, L100.0500, L501.5200, L500.4050, L506.1001 ####[facility] [address] [place], [address] Cholesterol in VLDL [Mass/Vol] 17 mg/dL Normal 5-[address] [facility] Comment on above: Order Comment: .1 Performed By: #### L 503.0106, L500.4100, L501.9520, L100.0500, L501.5200, L500.4050, L506.1001 ####[facility] [address] [place], [address] Triglyceride [Mass/Vol] 86 mg/dL Normal [facility] Comment on above: Order Comment: 212.1 Result Comment: The drugs N-Acetylcysteine and Metamizole may falselydepress this assay.Normal range: <150 mg/dLBorderline High: 150-199 mg/dLHigh: 200-499 mg/dLVery High: >500 mg/dL Performed By: #### L 503.0106, L500.4100, L501.9520, L100.0500, L501.5200, L500.4050, L506.1001 ####[facility] [address] [place], [address] MCV (mean corpuscular volume ) determinationOrdered By: Michelle Loco on 01-25-2025 MCV (RBC) [Entitic vol] 92.5 fL 80-94 [facility] Magnesiumon 01-25-2025 Magnesium [Mass/Vol] 1.2 mg/dL Low 1.5-2.2 [facility] Comment on above: Order Comment: .1 Performed By: #### L 503.0106, L500.4100, L501.9520, L100.0500, L501.5200, L500.4050, L506.1001 ####[facility] [address] [place], [address] Magnesium measurement (mass/ volume)Ordered By: Michelle Loco on 01-25-2025 Magnesium (Unsp spec) [Mass/Vol] 1.2 mg/dL Low 1.5-2.[address] [facility] Mean corpuscular hemoglobin (MCH) determinationOrdered By: Michelle Loco on 01-25-2025 MCH (RBC) [Entitic mass] 32.1 pg High 27.0-32.[address] [facility] Mean corpuscular hemoglobin concentration (MCHC) determinationOrdered By: Michelle Loco on 01-25-2025 MCHC (RBC) [Mass/Vol] 34.8 g/dL 32-36 [facility] Mean platelet volume determi nationOrdered By: Michelle Loco on 01-25-2025 Platelet mean volume (Bld) [Entitic vol] 11.8 fL 6.2-12.[address] [facility] Platelet countOrdered By: Liborio Loco on 01-25-2025 Platelets (Bld) [#/Vol] 54 10*3/uL Low 150-450 [facility] Potassium measurement (mass/ volume)Ordered By: Michelle Loco on 01-25-2025 Potassium (Unsp spec) [Mass/Vol] 3.5 mmol/L 3.3-5.[address] [facility] RBC Auto (Bld) [#/Vol]Ordere d By: Michelle Loco on 01-25-2025 RBC (Bld) [#/Vol] 2.52 10*6/uL Low 4.6-6.2 [facility] Screening total cholesterol/ high density lipoprotein (HDL) cholesterol ratioOrdered By: Michelle Loco on 01-25-2025 Cholesterol.total/Janie sterol in HDL [Mass ratio] 2.89 {ratio} [facility] Serum creatinine measurement (mass/volume)Ordered By: Michelle Loco on 01-25-2025 Creatinine [Mass/Vol] 1.03 mg/dL 0.70-1.20 [facility] Serum globulin measurementOr dered By: Michelle Loco on 01-25-2025 Globulin (S) [Mass/Vol] 2.7 g/dL 2.2-4.2 [facility] Serum glucose measurement (m ass/volume)Ordered By: Michelle Loco on 01-25-2025 Glucose [Mass/Vol] 115 mg/dL High 70-99 [facility] Serum or plasma alanine gregory otransferase (ALT) measurementOrdered By: Michelle Loco on 01-25-2025 ALT [Catalytic activity/Vol] 59 U/L High <[address] [facility] Serum or plasma albumin ed urement (mass/volume)Ordered By: Michelle Loco on 01-25-2025 Albumin [Mass/Vol] 3.1 g/dL Low 3.4-4.8 [facility] Serum or plasma albumin/glob ulin mass ratioOrdered By: Michelle Loco on 01-25-2025 Albumin/Globulin [Mass ratio] 1.2 {ratio} 0.9-2.[address] [facility] Serum or plasma alkaline edwin sphatase measurementOrdered By: Michelle Loco on 01-25-2025 ALP [Catalytic activity/Vol] 73 U/L 40-[address] [facility] Serum or plasma calcium ed urement (mass/volume)Ordered By: Michelle Loco on 01-25-2025 Calcium [Mass/Vol] 8.1 mg/dL 7.6-11.0 [facility] Serum or plasma cholesterol in HDL measurement (mass/volume)Ordered By: Michelle Loco on 01-25-2025 Cholesterol in HDL [Mass/Vol] 44 mg/dL >[address] [facility] Comment on above: National Cholesterol Education Program (NCEP) guidelines:<40 mg/dL: Low HDL-cholesterol (major risk factor for CHD)>= 60 mg/dL: High HDL-cholesterol (negative risk factor for CHD)HDL-cholesterol is affected by a number of factors, e.g. smoking, exercise, hormones, sex and age. Serum or plasma cholesterol measurement (mass/volume)Ordered By: Michelle Loco on 01-25-2025 Cholesterol [Mass/Vol] 126 mg/dL <201 [facility] Comment on above: Cholesterol level, D esirable <200 mg/dLBorderline high cholesterol 200-239 mg/dLHigh cholesterol >=240 mg/dLRecommendations of the NCEP Adult Treatment Panel for the following risk-cutoff thresholds for the [place] population. Serum or plasma urea nitroge n measurement (mass/volume)Ordered By: Michelle Loco on 01-25-2025 Urea nitrogen [Mass/Vol] 19 mg/dL 4-[address] [facility] Sodium levelOrdered By: Malinda Loco on 01-25-2025 Sodium [Moles/Vol] 132 mmol/L Low 133-145 [facility] TSH DL <= 0.005 mIU/L QnOrde red By: Michelle Loco on 01-25-2025 TSH Qn 3.080 uIU/mL 0.300-4.[address] [facility] Thyroid Stim Hormone (TSH)on 01-25-2025 TSH 3.080 uIU/mL Normal 0.300-4.[address] [facility] Comment on above: Order Comment: 212.1 Performed By: #### L 503.0106, L500.4100, L501.9520, L100.0500, L501.5200, L500.4050, L506.1001 ####[facility] [address] [place], [address] Total proteinOrdered By: Danyelle Loco on 01-25-2025 Protein [Mass/Vol] 5.8 g/dL Low 5.9-8.4 [facility] Triglycerides measurementOrd ered By: Michelle Loco on 01-25-2025 Triglyceride [Mass/Vol] 86 mg/dL <199 [facility] Comment on above: The drugs N-Acetylcy steine and Metamizole may falsely depress this assay. Normal range: <150 mg/dLBorderline High: 150-199 mg/dLHigh: 200-499 mg/dLVery High: >500 mg/dL Vitamin B12on 01-25-2025 Cobalamin (Vitamin B12) [Mass/Vol] 450 pg/mL Normal 180-[address] [facility] Comment on above: Order Comment: 212.1 Performed By: #### L 503.0106, L500.4100, L501.9520, L100.0500, L501.5200, L500.4050, L506.1001 ####[facility] [address] [place], [place], [id number] Vitamin B12 ser/plasOrdered By: Michelle Loco on 01-25-2025 Cobalamin (Vitamin B12) [Mass/Vol] 450 pg/mL 180-[address] [facility] Vitamin D,25 Hydroxyon 01-25 Vitamin D 25-OH < 6.0 Low 30-[address] [facility] Comment on above: Order Comment: 212.1 Result Comment: Anita min D StatusDeficiency: <20 ng/mL (50nmol/L)Insufficiency: 20-30 ng/mL (50-75 nmol/L)Sufficiency: 30-100 ng/mL (75-250 nmol/L)Toxicity: >100 ng/mL (>250 nmol/L) Performed By: #### L 503.0106, L500.4100, L501.9520, L100.0500, L501.5200, L500.4050, L506.1001 ####[facility] [address] [place], [address] White blood cell (WBC) count Ordered By: Michelle Loco on 01-25-2025 WBC (Bld) [#/Vol] 5.3 10*3/uL 4.4-11.0 [facility] Absolute lymphocyte countOrd ered By: Shorty Lea on 01-24-2025 Lymphocytes Auto (Unsp spec) [#/Vol] 0.94 10*3/uL 0.83-4.[address] [facility] Absolute neutrophil countOrd ered By: Shorty Lea on 01-24-2025 Neutrophils (Bld) [#/Vol] 2.2 10*3/uL 2.0-7.[address] [facility] Anion gap in Serum or Plasma Ordered By: Shorty Lea on 01-24-2025 Anion gap [Moles/Vol] 10 mmol/L 5- [facility] Automated lymphocyte count a s percentage of total leukocytesOrdered By: Shorty Lea on 01-24-2025 Lymphocytes/100 WBC Auto (Unsp spec) 24.7 % [facility] BUN/creatinine ratioOrdered By: Shorty Lea on 01-24-2025 Urea nitrogen/Creatinine [Mass ratio] 18.9 mg/mg - [facility] Basic Metabolic Profile (BMP )on 01-24-2025 BUN/CRE 18.9 RATIO Normal - [facility] Comment on above: Performed By: #### L 100.0100, L500.2500 ####[facility] [address] [place], [address] Calcium [Mass/Vol] 8.4 mg/dL Normal 7.6-11.0 [facility] Comment on above: Performed By: #### L 100.0100, L500.2500 ####[facility] [address] [place], [address] Chloride [Moles/Vol] 104 mmol/L Normal 98-108 [facility] Comment on above: Performed By: #### L 100.0100, L500.2500 ####[facility] [address], [address] CO2 [Moles/Vol] 17.6 mmol/L Low 21.0-32.[address] [facility] Comment on above: Performed By: #### L 100.0100, L500.2500 ####[facility] [address], [address] Creatinine [Mass/Vol] 0.93 mg/dL Normal 0.70-1.20 [facility] Comment on above: Performed By: #### L 100.0100, L500.2500 ####[facility] [address], [address] ECRCL 83.95 ml/min Normal 50-[address] [facility] Comment on above: Performed By: #### L 100.0100, L500.2500 ####[facility] [address] [place], [address] GAP 10 Normal 5-[address] [facility] Comment on above: Performed By: #### L 100.0100, L500.2500 ####[facility] [address] [place], [address] GFR/1.73 sq M.predicted among non-blacks MDRD (S/P/Bld) [Vol rate/Area] 93 mL/min/{1.73_m2} Normal >[address] [facility] Comment on above: Result Comment: mL/m in/1.73m2 CKD-EPI Creatinine Equation (2020) Performed By: #### L 100.0100, L500.2500 ####[facility] [address] [place], [address] Glucose [Mass/Vol] 117 mg/dL High 70-99 [facility] Comment on above: Performed By: #### L 100.0100, L500.2500 ####[facility] [address] [place], [address] Potassium [Moles/Vol] 3.9 mmol/L Normal 3.3-5.1 [facility] Comment on above: Performed By: #### L 100.0100, L500.2500 ####[facility] [address] [place], [address] Sodium [Moles/Vol] 131 mmol/L Low 133-145 [facility] Comment on above: Performed By: #### L 100.0100, L500.2500 ####[facility] [address] [place], [address] Urea nitrogen [Mass/Vol] 18 mg/dL Normal 4-[address] [facility] Comment on above: Performed By: #### L 100.0100, L500.2500 ####[facility] [address] [place], [address] Basophil percentageOrdered B y: Shorty Lea on 01-24-2025 Basophils/100 WBC (Bld) 0.3 % 0-1 [facility] Bite cells detectionOrdered By: Shorty Lea on 01-24-2025 Bite cells LM Ql (Bld) RARE Wo [facility] Blood manual differential co mment interpretation (narrative result)Ordered By: Shorty Lea on 01-24-2025 Manual differential comment Mars (Bld) [Interp] SCANNED [facility] CBC W/Diff, Automatedon 01-13 ACANTHOCYTE RARE Normal [facility] Comment on above: Performed By: #### L 100.0100, L500.2500 ####[facility] [address] [place], [address] Anisocytosis Ql (Bld) 1+ Normal [facility] Comment on above: Performed By: #### L 100.0100, L500.2500 ####[facility] [address] [place], [address] BITE CELL RARE Normal [facility] Comment on above: Performed By: #### L 100.0100, L500.2500 ####[facility] [address] [place], [address] PLT EST MKD DEC Normal ADEQ [facility] Comment on above: Performed By: #### L 100.0100, L500.2500 ####[facility] [address] [place], [address] SMEAR COMMENT SCANNED Normal [facility] Comment on above: Performed By: #### L 100.0100, L500.2500 ####[facility] [address] [place], [address] Carbon dioxide, total [Moles /volume] in Central venous bloodOrdered By: Shorty Lea on 01-24-2025 CO2 [Moles/Vol] 17.6 mmol/L Low 21.0-32.[address] [facility] Chloride assayOrdered By: Stuart Lea on 01-24-2025 Chloride [Moles/Vol] 104 mmol/L 98-108 [facility] Eosinophil percentageOrdered By: Shorty Lea on 01-24-2025 Eosinophils/100 WBC (Bld) 0.5 % 0-[address] [facility] Erythrocyte distribution wid th ratioOrdered By: Shorty Lea on 01-24-2025 Erythrocyte distribution width (RBC) [Ratio] 17.4 % High 11.6-14.[address] [facility] Erythrocyte distribution wid th standard deviationOrdered By: Shorty Lea on 01-24-2025 Erythrocyte distribution width (RBC) [Ratio] 57.9 fl High 35.1-43.[address] [facility] Ferritinon 01-24-2025 Ferritin [Mass/Vol] 2300 ng/mL High 37-417 [facility] Comment on above: Performed By: #### L 503.6030, L503.6550 ####[facility] [address] [place], [place], [id number] Glomerular filtration rate ( GFR) estimation/1.73 sq m using serum, plasma, or whole bOrdered By: Shorty Lea on 01-24-2025 GFR/1.73 sq M.predicted among non-blacks MDRD (S/P/Bld) [Vol rate/Area] 93 mL/min/{1.73_m2} >[address] [facility] Comment on above: mL/min/1.73m2 CKD-EP I Creatinine Equation (2020) Hematocrit Auto (Bld) [Volum e fraction]Ordered By: Shorty Lea on 01-24-2025 Hematocrit (Bld) [Volume fraction] 25.1 % Low 40-[address] [facility] Hemoglobin measurementOrdere d By: Shorty Lea on 01-24-2025 Hemoglobin (Bld) [Mass/Vol] 8.8 g/dL Low 13.0-16.[address] [facility] Immature granulocytes/100 WB C Auto (Bld)Ordered By: Shorty Lea on 01-24-2025 Immature granulocytes/100 WBC (Bld) 4.200 % High 0.0-0.[address] [facility] Comment on above: IG% - Immature Granu locytes (promyelocytes, myelocytes and metamyelocytes) > 1% indicates that a LEFT SHIFT is Present. Iron measurement (mass/mass) Ordered By: Shorty Lea on 01-24-2025 Iron (Unsp spec) [Mass/Mass] 64 ug/dL Low 65-[address] [facility] Iron+Iron Binding Capacityon 01-24-2025 TIBC 174 ug/dL Low 250-[address] [facility] Comment on above: Performed By: #### L 503.6030, L503.6550 ####[facility] [address] [place], [place], [id number] Laboratory - Hematology and Cell countsOrdered By: Shorty Lea on 01-24-2025 Anisocytosis Ql (Bld) 1+ [facility] MCV (mean corpuscular volume ) determinationOrdered By: Shorty Lea on 01-24-2025 MCV (RBC) [Entitic vol] 90.9 fL 80-94 [facility] Mean corpuscular hemoglobin (MCH) determinationOrdered By: Shorty Lea on 01-24-2025 MCH (RBC) [Entitic mass] 31.9 pg 27.0-32.[address] [facility] Mean corpuscular hemoglobin concentration (MCHC) determinationOrdered By: Shorty Lea on 01-24-2025 MCHC (RBC) [Mass/Vol] 35.1 g/dL 32-36 [facility] Mean platelet volume determi nationOrdered By: Shorty Lea on 01-24-2025 Platelet mean volume (Bld) [Entitic vol] 10.9 fL 6.2-12.[address] [facility] Monocyte percentageOrdered B y: Shorty Lea on 01-24-2025 Monocytes/100 WBC (Bld) 11.5 % High 0-10 [facility] Neutrophil percentageOrdered By: Shorty Lea on 01-24-2025 Neutrophils/100 WBC (Bld) 58.8 % 47-[address] [facility] No Panel InformationOrdered By: Shorty Lea on 01-24-2025 Unsaturated Iron Binding Capacity 110 ug/dL Low 228-[address] [facility] Nucleated red blood cell per centageOrdered By: Shorty Lea on 01-24-2025 Nucleated RBC/100 WBC (Bld) [Ratio] 0 % 0-[address] [facility] Platelet countOrdered By: Stuart Lea on 01-24-2025 Platelets (Bld) [#/Vol] 32 10*3/uL Low 150-450 [facility] Comment on above: CRITICAL VALUE WHITEHEAD D TO MOE EVKOSEFT40/12/25 0541 Chelsey Leonardo.RESULTS READ BACK BY SAME. Platelet estimateOrdered By: Shorty Lea on 01-24-2025 Platelets LM Ql (Bld) MKD DEC ADEQ [facility] Potassium measurement (mass/ volume)Ordered By: Shorty Lae on 01-24-2025 Potassium (Unsp spec) [Mass/Vol] 3.9 mmol/L 3.3-5.[address] [facility] RBC Auto (Bld) [#/Vol]Ordere d By: Shorty Lea on 01-24-2025 RBC (Bld) [#/Vol] 2.76 10*6/uL Low 4.6-6.2 [facility] Serum creatinine measurement (mass/volume)Ordered By: Shorty Lea on 01-24-2025 Creatinine [Mass/Vol] 0.93 mg/dL 0.70-1.20 [facility] Serum glucose measurement (m ass/volume)Ordered By: Shorty Lea on 01-24-2025 Glucose [Mass/Vol] 117 mg/dL High 70-99 [facility] Serum or plasma calcium ed urement (mass/volume)Ordered By: Shorty Lea on 01-24-2025 Calcium [Mass/Vol] 8.4 mg/dL 7.6-11.0 [facility] Serum or plasma ferritin poly surement (mass/volume)Ordered By: Shorty Lea on 01-24-2025 Ferritin [Mass/Vol] 2300 ng/mL High 37-417 [facility] Serum or plasma iron saturat ion measurement (mass fraction)Ordered By: Shorty Lea on 01-24-2025 Iron saturation [Mass fraction] 36.8 % 9-[address] [facility] Comment on above: Previous reported re sult: 37.0 %Edited by: NÉSTOR on 01/24/25:1656 AMENDED REPORT 01/24/251656 IRON SATURATION previously reported as: 37.0 % Serum or plasma urea nitroge n measurement (mass/volume)Ordered By: Shorty Lea on 01-24-2025 Urea nitrogen [Mass/Vol] 18 mg/dL 4-[address] [facility] Sodium levelOrdered By: Wilman Lea on 01-24-2025 Sodium [Moles/Vol] 131 mmol/L Low 133-145 [facility] White blood cell (WBC) count Ordered By: Shorty Lea on 01-24-2025 WBC (Bld) [#/Vol] 3.8 10*3/uL Low 4.4-11.0 [facility] Bilirubin, totalOrdered By: Shorty Lea on 01-22-2025 Bilirubin [Mass/Vol] 0.39 mg/dL 0.00-1.30 [facility] Comprehensive Metabolic Prof ilon 01-22-2025 Albumin [Mass/Vol] 3.2 g/dL Low 3.4-4.8 [facility] Comment on above: Performed By: #### L 500.4050, L100.0100 ####[facility] [address] [place], [address] Albumin/Globulin [Mass ratio] 1.1 {ratio} Normal 0.9-2.[address] [facility] Comment on above: Performed By: #### L 500.4050, L100.0100 ####[facility] [address] [place], [address] ALK PHOS 81 U/L Normal 40-[address] [facility] Comment on above: Performed By: #### L 500.4050, L100.0100 ####[facility] [address] [place], [address] ALT [Catalytic activity/Vol] 12 U/L Normal <=[address] [facility] Comment on above: Performed By: #### L 500.4050, L100.0100 ####[facility] [address] [place], [address] AST [Catalytic activity/Vol] 33 U/L Normal <=[address] [facility] Comment on above: Performed By: #### L 500.4050, L100.0100 ####[facility] [address] [place], [address] Bilirubin [Mass/Vol] 0.39 mg/dL Normal 0.00-1.30 [facility] Comment on above: Performed By: #### L 500.4050, L100.0100 ####[facility] [address] [place], [address] BUN/CRE 14.6 RATIO Normal 10-[address] [facility] Comment on above: Performed By: #### L 500.4050, L100.0100 ####[facility] [address] [place], [address] Calcium [Mass/Vol] 8.3 mg/dL Normal 7.6-11.0 [facility] Comment on above: Performed By: #### L 500.4050, L100.0100 ####[facility] [address] [place], [address] Chloride [Moles/Vol] 104 mmol/L Normal 98-108 [facility] Comment on above: Performed By: #### L 500.4050, L100.0100 ####[facility] [address] [place], [address] CO2 [Moles/Vol] 16.4 mmol/L Low 21.0-32.[address] [facility] Comment on above: Performed By: #### L 500.4050, L100.0100 ####[facility] [address] [place], [address] Creatinine [Mass/Vol] 1.12 mg/dL Normal 0.70-1.20 [facility] Comment on above: Performed By: #### L 500.4050, L100.0100 ####[facility] [address] [place], [address] ECRCL 69.70 ml/min Normal 50-[address] [facility] Comment on above: Performed By: #### L 500.4050, L100.0100 ####[facility] [address] [place], [address] GAP 9 Normal 5-[address] [facility] Comment on above: Performed By: #### L 500.4050, L100.0100 ####[facility] [address] [place], [address] GFR/1.73 sq M.predicted among non-blacks MDRD (S/P/Bld) [Vol rate/Area] 74 mL/min/{1.73_m2} Normal >[address] [facility] Comment on above: Result Comment: mL/m in/1.73m2 CKD-EPI Creatinine Equation (2020) Performed By: #### L 500.4050, L100.0100 ####[facility] [address] [place], [address] Globulin (S) [Mass/Vol] 3.0 g/dL Normal 2.2-4.2 [facility] Comment on above: Performed By: #### L 500.4050, L100.0100 ####[facility] [address] [place], [address] Glucose [Mass/Vol] 199 mg/dL High 70-99 [facility] Comment on above: Performed By: #### L 500.4050, L100.0100 ####[facility] [address] [place], [address] Potassium [Moles/Vol] 4.9 mmol/L Normal 3.3-5.1 [facility] Comment on above: Performed By: #### L 500.4050, L100.0100 ####[facility] [address] [place], [address] Sodium [Moles/Vol] 130 mmol/L Low 133-145 [facility] Comment on above: Performed By: #### L 500.4050, L100.0100 ####[facility] [address] [place], [address] T PROT 6.2 g/dL Normal 5.9-8.[address] [facility] Comment on above: Performed By: #### L 500.4050, L100.0100 ####[facility] [address] [place], [address] Urea nitrogen [Mass/Vol] 16 mg/dL Normal 4-[address] [facility] Comment on above: Performed By: #### L 500.4050, L100.0100 ####[facility] [address] [place], [address] Laboratory - Chemistry and C hemistry - challengeOrdered By: Shorty Lea on 01-22-2025 AST [Catalytic activity/Vol] 33 U/L <[address] [facility] Review by pathologistOrdered By: Shorty Lea on 01-22-2025 Pathologist review Mars (Unsp spec) [Interp] Trish wise [facility] Pathologist review Mars (Unsp spec) [Interp] Reviewed [facility] Comment on above: Previous reported re sult: Trish wise Edited by: DWIGHT on 02/03/25:1545SEE REPORT IN PATIENT'S EMR AMENDED REPORT 02/03/25 1545 PATH REV previously reported as: Trish wise Serum globulin measurementOr dered By: Shorty Lea on 01-22-2025 Globulin (S) [Mass/Vol] 3.0 g/dL 2.2-4.2 [facility] Serum or plasma alanine gregory otransferase (ALT) measurementOrdered By: Shorty Lea on 05-10-2025 ALT [Catalytic activity/Vol] 12 U/L <[address] [facility] Serum or plasma albumin ed urement (mass/volume)Ordered By: Shorty Lea on 01-22-2025 Albumin [Mass/Vol] 3.2 g/dL Low 3.4-4.8 [facility] Serum or plasma albumin/glob ulin mass ratioOrdered By: Shorty Lea on 01-22-2025 Albumin/Globulin [Mass ratio] 1.1 {ratio} 0.9-2.[address] [facility] Serum or plasma alkaline edwin sphatase measurementOrdered By: Shorty Lea on 01-22-2025 ALP [Catalytic activity/Vol] 81 U/L 40-[address] [facility] Total proteinOrdered By: Ebony Lea on 01-22-2025 Protein [Mass/Vol] 6.2 g/dL 5.9-8.4 [facility] CBC W/Diff, Automatedon ACANTHOCYTE 1+ Normal [facility] Comment on above: Performed By: #### L 501.2300, L100.0100, L500.4050 ####[facility] [address] [place], [address] Anisocytosis Ql (Bld) 1+ Normal [facility] Comment on above: Performed By: #### L 501.2300, L100.0100, L500.4050 ####[facility] [address] [place], [address] OVALOCYTE 1+ Normal [facility] Comment on above: Performed By: #### L 501.2300, L100.0100, L500.4050 ####[facility] [address] [place], [address] PLT EST MKD DEC Normal ADEQ [facility] Comment on above: Performed By: #### L 501.2300, L100.0100, L500.4050 ####[facility] [address] [place], [address] Comprehensive Metabolic Prof ilon 01-21-2025 Albumin [Mass/Vol] 3.0 g/dL Low 3.4-4.8 [facility] Comment on above: Performed By: #### L 501.2300, L100.0100, L500.4050 ####[facility] [address] [place], [address] Albumin/Globulin [Mass ratio] 1.1 {ratio} Normal 0.9-2.[address] [facility] Comment on above: Performed By: #### L 501.2300, L100.0100, L500.4050 ####[facility] [address] [place], [address] ALK PHOS 79 U/L Normal 40-[address] [facility] Comment on above: Performed By: #### L 501.2300, L100.0100, L500.4050 ####[facility] [address] [place], [address] ALT [Catalytic activity/Vol] 13 U/L Normal <=[address] [facility] Comment on above: Performed By: #### L 501.2300, L100.0100, L500.4050 ####[facility] [address] [place], [address] AST [Catalytic activity/Vol] 37 U/L Normal <=[address] [facility] Comment on above: Performed By: #### L 501.2300, L100.0100, L500.4050 ####[facility] [address] [place], [address] Bilirubin [Mass/Vol] 0.59 mg/dL Normal 0.00-1.30 [facility] Comment on above: Performed By: #### L 501.2300, L100.0100, L500.4050 ####[facility] [address] [place], [address] BUN/CRE 14.7 RATIO Normal 10-[address] [facility] Comment on above: Performed By: #### L 501.2300, L100.0100, L500.4050 ####[facility] [address] [place], [address] Calcium [Mass/Vol] 7.8 mg/dL Normal 7.6-11.0 [facility] Comment on above: Performed By: #### L 501.2300, L100.0100, L500.4050 ####[facility] [address] [place], [address] Chloride [Moles/Vol] 100 mmol/L Normal 98-108 [facility] Comment on above: Performed By: #### L 501.2300, L100.0100, L500.4050 ####[facility] [address] [place], [address] CO2 [Moles/Vol] 17.0 mmol/L Low 21.0-32.[address] [facility] Comment on above: Performed By: #### L 501.2300, L100.0100, L500.4050 ####[facility] [address] [place], [address] Creatinine [Mass/Vol] 0.93 mg/dL Normal 0.70-1.20 [facility] Comment on above: Performed By: #### L 501.2300, L100.0100, L500.4050 ####[facility] [address] [place], [address] ECRCL 83.95 ml/min Normal 50-[address] [facility] Comment on above: Performed By: #### L 501.2300, L100.0100, L500.4050 ####[facility] [address] [place], [address] GAP 11 Normal 5-[address] [facility] Comment on above: Performed By: #### L 501.2300, L100.0100, L500.4050 ####[facility] [address] [place], [address] GFR/1.73 sq M.predicted among non-blacks MDRD (S/P/Bld) [Vol rate/Area] 92 mL/min/{1.73_m2} Normal >[address] [facility] Comment on above: Result Comment: mL/m in/1.73m2 CKD-EPI Creatinine Equation (2020) Performed By: #### L 501.2300, L100.0100, L500.4050 ####[facility] [address], [address] Globulin (S) [Mass/Vol] 2.7 g/dL Normal 2.2-4.2 [facility] Comment on above: Performed By: #### L 501.2300, L100.0100, L500.4050 ####[facility] [address], [address] Glucose [Mass/Vol] 114 mg/dL High 70-99 [facility] Comment on above: Performed By: #### L 501.2300, L100.0100, L500.4050 ####[facility] [address], [address] Potassium [Moles/Vol] 3.2 mmol/L Low 3.3-5.1 [facility] Comment on above: Performed By: #### L 501.2300, L100.0100, L500.4050 ####[facility] [address] [place], [address] Sodium [Moles/Vol] 129 mmol/L Low 133-145 [facility] Comment on above: Performed By: #### L 501.2300, L100.0100, L500.4050 ####[facility] [address] [place], [address] T PROT 5.7 g/dL Low 5.9-8.[address] [facility] Comment on above: Performed By: #### L 501.2300, L100.0100, L500.4050 ####[facility] [address] [place], [address] Urea nitrogen [Mass/Vol] 14 mg/dL Normal 4-[address] [facility] Comment on above: Performed By: #### L 501.2300, L100.0100, L500.4050 ####[facility] [address] [place], [address] Creatinine, Urine (random)on 01-21-2025 UR CREAT 37.80 mg/dL Low 39.00-259.[address] [facility] Comment on above: Performed By: #### L 501.7400, L501.1200, L500.9400 ####[facility] [address] [place], [address] Foot min 3 Viewson 5 Foot min 3 Views Normal [facility] Haptoglobinon 01-21-2025 HAPTOGLOBIN 127 mg/dL Normal 32-[address] [facility] Comment on above: Result Comment: Perf ormed at: [facility] [address] [id number] Director: Harrison Villareal PhD, Phone: [phone] Performed By: #### L 3100.1850, Q80804-2, L504.3330 ####[facility] [address] [place], [address] L501.5101on 01-21-2025 GGTP 31 IU/L Normal 0-[address] [facility] Comment on above: Result Comment: Perf ormed at: [facility] [address] [id number] Director: Harrison Villareal PhD, Phone: [phone] Performed By: #### L 501.2300, L501.5101, L501.6901 ####[facility] [address] [place], [place], [address] Osmolality urOrdered By: Ebony Lea on 01-21-2025 Osmolality (U) [Osmolality] 201 mOsm/KG >[address] [facility] Comment on above: Normal Urine Referen ce Ranges Random: 50 - 1200 mOsm/kg H20 depending on fluid intake Random: >850 mOsm/kg after 12 hour fluid restriction 24 hour: ~300 - 900 mOsm/kg H2O Osmolality, Urineon 01-22-20 25 OSMOLALITY,UR 201 mOsm/KG Normal [facility] Comment on above: Result Comment: Norm al Urine Reference Ranges Random: 50 - 1200 mOsm/kg H20 depending on fluid intake Random: >850 mOsm/kg after 12 hour fluid restriction 24 hour: 300 - 900 mOsm/kg H2O Performed By: #### L 501.7400, L501.1200, L500.9400 ####[facility] [address] [facility] [place], [place], [id number] Ovalocyte detectionOrdered B y: Shorty Lea on 01-21-2025 Ovalocytes LM Ql (Bld) 1+ [facility] Phosphoruson 01-21-2025 Phosphate [Mass/Vol] 2.7 mg/dL Normal 2.7-4.5 [facility] Comment on above: Performed By: #### L 501.2300, L100.0100, L500.4050 ####[facility] [address] [place], [place], [id number] Random urine creatinine de urement (mass/volume)Ordered By: Shorty Lea on 01-21-2025 Creatinine Unsp time (U) [Mass/Vol] 37.80 mg/dL Low 39.00-259.[address] [facility] Serum or plasma uric acid me asurement (mass/volume)Ordered By: Shorty Lea on 01-21-2025 Urate [Mass/Vol] 5.5 mg/dL 3.5-7.[address] [facility] Comment on above: The drugs N-Acetylcy steine and Metamizole may falsely depress this assay. Uric Acidon 01-21-2025 URIC 5.5 mg/dL Normal 3.5-7.[address] [facility] Comment on above: Result Comment: The drugs N-Acetylcysteine and Metamizole may falselydepress this assay. Performed By: #### L 501.1400 ####[facility] [address] [place], [address] Urine Electrolytes- Randomon 01-21-2025 Chloride,URINE 24 mmol/L Normal Not Establ. [facility] [facility] Comment on above: Performed By: #### L 501.7400, L501.1200, L500.9400 ####[facility] [address] [place], [address] Sodium (U) [Moles/Vol] 35 mmol/L Normal Not Establ. [facility] Comment on above: Performed By: #### L 501.7400, L501.1200, L500.9400 ####[facility] [address] [place], [address] UR K 7.2 mmol/L Normal Not Establ. [facility] Comment on above: Performed By: #### L 501.7400, L501.1200, L500.9400 ####[facility] [address] [place], [address] Urine potassium measurement (moles/volume)Ordered By: Shorty Lea on 01-21-2025 Potassium (U) [Moles/Vol] 7.2 mmol/L Not Establ. [facility] Urine sodium measurement (mo les/volume)Ordered By: Shorty Lea on 01-21-2025 Sodium (U) [Moles/Vol] 35 mmol/L Not Establ. [facility] CBC-Complete Blood Cnt No Di ffon 01-20-2025 Erythrocyte distribution width (RBC) [Ratio] 17.9 % High 11.6-14.[address] [facility] Comment on above: Order Comment: CRITI MODESTO VALUE CALLED TO [facility]01/20/25 0722 Evangelina Ayon.RESULTS READ BACK BY SAME. Performed By: #### L 501.9520, L500.4050, L100.0500, L503.0106 ####[facility] [address] [place], [address] Hematocrit (Bld) [Volume fraction] 19.8 % Low 40-[address] [facility] Comment on above: Order Comment: CRITI MODESTO VALUE CALLED TO [facility]01/20/25 Evangelina Ayon.RESULTS READ BACK BY SAME. Performed By: #### L 501.9520, L500.4050, L100.0500, L503.0106 ####[facility] [address] [place], [address] Hemoglobin (Bld) [Mass/Vol] 7.5 g/dL Low 13.0-16.[address] [facility] Comment on above: Order Comment: CRITI MODESTO VALUE CALLED TO [facility]01/20/25 Evangelina Ayon.RESULTS READ BACK BY SAME. Performed By: #### L 501.9520, L500.4050, L100.0500, L503.0106 ####[facility] [address] [place], [address] MCH (RBC) [Entitic mass] 32.9 pg High 27.0-32.[address] [facility] Comment on above: Order Comment: CRITI MODESTO VALUE CALLED TO [facility]01/20/25721 Evangelina Ayon.RESULTS READ BACK BY SAME. Performed By: #### L 501.9520, L500.4050, L100.0500, L503.0106 ####[facility] [address] [place], [address] MCHC (RBC) [Mass/Vol] 37.9 g/dL High 32-36 [facility] Comment on above: Order Comment: CRITI MODESTO VALUE CALLED TO [facility]01/20/25721 Evagnelina Ayon.RESULTS READ BACK BY SAME. Performed By: #### L 501.9520, L500.4050, L100.0500, L503.0106 ####[facility] [address] [place], [address] MCV (RBC) [Entitic vol] 86.8 fL Normal 80-94 [facility] Comment on above: Order Comment: CRITI MODESTO VALUE CALLED TO [facility]01/20/25721 Evangelina Ayon.RESULTS READ BACK BY SAME. Performed By: #### L 501.9520, L500.4050, L100.0500, L503.0106 ####[facility] [address] [place], [address] Platelet mean volume (Bld) [Entitic vol] 10.5 fL Normal 6.2-12.[address] [facility] Comment on above: Order Comment: CRITI MODESTO VALUE CALLED TO [facility]01/20/25 Evangelina Ayon.RESULTS READ BACK BY SAME. Performed By: #### L 501.9520, L500.4050, L100.0500, L503.0106 ####[facility] [address] [place], [address] Platelets (Bld) [#/Vol] 32 10*3/uL Invalid Interpretation Code 150-[address] [facility] Comment on above: Order Comment: CRITI MODESTO VALUE CALLED TO [facility]01/20/25 Evangelina Ayon.RESULTS READ BACK BY SAME. Performed By: #### L 501.9520, L500.4050, L100.0500, L503.0106 ####[facility] [address] [place], [address] RBC (Bld) [#/Vol] 2.28 10*6/uL Low 4.6-6.2 [facility] Comment on above: Order Comment: CRITI MODESTO VALUE CALLED TO [facility]01/20/25721 Evangelina Ayon.RESULTS READ BACK BY SAME. Performed By: #### L 501.9520, L500.4050, L100.0500, L503.0106 ####[facility] [address] [place], [address] RDW SD 56.9 fl High 35.1-43.[address] [facility] Comment on above: Order Comment: CRITI MODESTO VALUE CALLED TO [facility]01/20/25 0722 Evangelina Ayon.RESULTS READ BACK BY SAME. Performed By: #### L 501.9520, L500.4050, L100.0500, L503.0106 ####[facility] [address] [place], [address] WBC (Bld) [#/Vol] 2.2 10*3/uL Low 4.4-11.0 [facility] Comment on above: Order Comment: CRITI MODESTO VALUE CALLED TO [facility]01/20/25 0722 Evangelina Ayon.RESULTS READ BACK BY SAME. Performed By: #### L 501.9520, L500.4050, L100.0500, L503.0106 ####[facility] [address] [place], [address] Comprehensive Metabolic Prof [facility] 01-20-2025 Albumin [Mass/Vol] 3.1 g/dL Low 3.4-4.8 [facility] Comment on above: Performed By: #### L 501.9520, L500.4050, L100.0500, L503.0106 ####[facility] [address] [place], [address] Albumin/Globulin [Mass ratio] 1.2 {ratio} Normal 0.9-2.[address] [facility] Comment on above: Performed By: #### L 501.9520, L500.4050, L100.0500, L503.0106 ####[facility] [address] [place], [address] ALK PHOS 76 U/L Normal 40-[address] [facility] Comment on above: Performed By: #### L 501.9520, L500.4050, L100.0500, L503.0106 ####[facility] [address] [place], [address] ALT [Catalytic activity/Vol] 16 U/L Normal <=[address] [facility] Comment on above: Performed By: #### L 501.9520, L500.4050, L100.0500, L503.0106 ####[facility] [address] [place], [address] AST [Catalytic activity/Vol] 51 U/L High <=[address] [facility] Comment on above: Performed By: #### L 501.9520, L500.4050, L100.0500, L503.0106 ####[facility] [address] [place], [address] Bilirubin [Mass/Vol] 1.36 mg/dL High 0.00-1.30 [facility] Comment on above: Performed By: #### L 501.9520, L500.4050, L100.0500, L503.0106 ####[facility] [address] [place], [address] BUN/CRE 16.4 RATIO Normal 10-[address] [facility] Comment on above: Performed By: #### L 501.9520, L500.4050, L100.0500, L503.0106 ####[facility] [address] [place], [address] Calcium [Mass/Vol] 7.5 mg/dL Low 7.6-11.0 [facility] Comment on above: Performed By: #### L 501.9520, L500.4050, L100.0500, L503.0106 ####[facility] [address] [place], [address] Chloride [Moles/Vol] 93 mmol/L Low 98-108 [facility] Comment on above: Performed By: #### L 501.9520, L500.4050, L100.0500, L503.0106 ####[facility] [address] [place], [address] CO2 [Moles/Vol] 16.2 mmol/L Low 21.0-32.[address] [facility] Comment on above: Performed By: #### L 501.9520, L500.4050, L100.0500, L503.0106 ####[facility] [address] [place], [address] Creatinine [Mass/Vol] 0.92 mg/dL Normal 0.70-1.20 [facility] Comment on above: Performed By: #### L 501.9520, L500.4050, L100.0500, L503.0106 ####[facility] [address] [place], [address] ECRCL 84.86 ml/min Normal 50-[address] [facility] Comment on above: Performed By: #### L 501.9520, L500.4050, L100.0500, L503.0106 ####[facility] [address] [place], [address] GAP 14 Normal 5-[address] [facility] Comment on above: Performed By: #### L 501.9520, L500.4050, L100.0500, L503.0106 ####[facility] [address] [place], [address] GFR/1.73 sq M.predicted among non-blacks MDRD (S/P/Bld) [Vol rate/Area] 93 mL/min/{1.73_m2} Normal >[address] [facility] Comment on above: Result Comment: mL/m in/1.73m2 CKD-EPI Creatinine Equation (2020) Performed By: #### L 501.9520, L500.4050, L100.0500, L503.0106 ####[facility] [address] [place], [address] Globulin (S) [Mass/Vol] 2.5 g/dL Normal 2.2-4.2 [facility] Comment on above: Performed By: #### L 501.9520, L500.4050, L100.0500, L503.0106 ####[facility] [address] [place], [address] Glucose [Mass/Vol] 153 mg/dL High 70-99 [facility] Comment on above: Performed By: #### L 501.9520, L500.4050, L100.0500, L503.0106 ####[facility] [address] [place], [address] Potassium [Moles/Vol] 3.0 mmol/L Low 3.3-5.1 [facility] Comment on above: Performed By: #### L 501.9520, L500.4050, L100.0500, L503.0106 ####[facility] [address] [place], [address] Sodium [Moles/Vol] 124 mmol/L Low 133-145 [facility] Comment on above: Performed By: #### L 501.9520, L500.4050, L100.0500, L503.0106 ####[facility] [address] [place], [address] T PROT 5.6 g/dL Low 5.9-8.[address] [facility] Comment on above: Performed By: #### L 501.9520, L500.4050, L100.0500, L503.0106 ####[facility] [address] [place], [address] Urea nitrogen [Mass/Vol] 15 mg/dL Normal 4-[address] [facility] Comment on above: Performed By: #### L 501.9520, L500.4050, L100.0500, L503.0106 ####[facility] [address] [place], [address] Folate [Mass/volume] in Seru m or PlasmaOrdered By: Shorty Lea on 01-20-2025 Folate [Mass/Vol] 3.23 ng/mL Low 4.60-34.[address] [facility] Comment on above: Hemolysis, Results w ill be affected, Requires Recollection. Folates,Serum (Folic Acid)on 01-20-2025 FOLATES,SERUM 3.23 ng/mL Low 4.60-34.[address] [facility] Comment on above: Result Comment: Hemo lysis, Results will be affected, Requires Recollection. Performed By: #### L 506.0200 ####[facility] [address] [place], [address] Magnesiumon 01-20-2025 Magnesium [Mass/Vol] 1.8 mg/dL Normal 1.5-2.2 [facility] Comment on above: Performed By: #### L 501.5200, L501.2300 ####[facility] [address] [place], [address] Magnesium measurement (mass/ volume)Ordered By: Shorty Lea on 01-20-2025 Magnesium (Unsp spec) [Mass/Vol] 1.8 mg/dL 1.5-2.[address] [facility] Phosphoruson 01-20-2025 Phosphate [Mass/Vol] 0.7 mg/dL Invalid Interpretation Code 2.7-4.[address] [facility] Comment on above: Result Comment: Crit ical Result(s) Called at: 01/20/2025-14:36 by: Eric to Krysten Kauffman??Results read back by same. Performed By: #### L 501.5200, L501.2300 ####[facility] [address] [place], [address] TSH DL <= 0.005 mIU/L QnOrde red By: Shorty Lea on 01-20-2025 TSH Qn 2.000 uIU/mL 0.300-4.[address] [facility] Thyroid Stim Hormone (TSH)on 01-20-2025 TSH 2.000 uIU/mL Normal 0.300-4.[address] [facility] Comment on above: Performed By: #### L 501.9520, L500.4050, L100.0500, L503.0106 ####[facility] [address] [place], [address] Vitamin B12on 01-20-2025 Cobalamin (Vitamin B12) [Mass/Vol] 418 pg/mL Normal 180-[address] [facility] Comment on above: Performed By: #### L 501.9520, L500.4050, L100.0500, L503.0106 ####[facility] [address] [place], [address] Vitamin B12 ser/plasOrdered By: Shorty Lea on 01-20-2025 Cobalamin (Vitamin B12) [Mass/Vol] 418 pg/mL 180-[address] [facility] Activated partial thrombopla stin time (aPTT) in platelet poor plasma by coagulation aOrdered By: Milagro Sanders on 01-19-2025 aPTT Coag (PPP) [Time] 35.9 s 24.1-36.2 [facility] Alcohol, Blood (Medical)-Ser umon 01-19-2025 SERUM ETOH < 10.1 Normal <=10.[address] [facility] Comment on above: Result Comment: This test is for medical purposes only. The legaldefinition of intoxication varies according to local law. Performed By: #### L 300.3900, L300.4310, L100.0100, L500.4050, L501.9100, L501.2450, L501.3620 ####[facility] [address] [place], [address] [id number] 01-19-2025 DIRECT JAIME NEG w/POLYSPECIFIC Normal NEGATIVE [facility] Comment on above: Performed By: #### L 3100.1850, M70407-4, L504.2610 ####[facility] [address] [place], [address] BRCon 01-19-2025 RC Normal [facility] Comment on above: Result Comment: [id number] AP RC TRANSFUSED 01/19/25 [id number] AP RC TRANSFUSED 01/19/25 1020 Performed By: #### B RC, BTS, M100.7900 ####[facility] [address] [place], [address] Result Comment: [id number] AP RC TRANSFUSED 01/20/25 1419 Performed By: #### B RC ####[facility] [address] [place], [address] Basic Metabolic Profile (BMP )on 01-19-2025 BUN/CRE 15.8 RATIO Normal 10-[address] [facility] Comment on above: Performed By: #### L 500.2500 ####[facility] [address] [place], [address] Calcium [Mass/Vol] 7.6 mg/dL Normal 7.6-11.0 [facility] Comment on above: Performed By: #### L 500.2500 ####[facility] [address] [place], [address] Chloride [Moles/Vol] 89 mmol/L Low 98-108 [facility] Comment on above: Performed By: #### L 500.2500 ####[facility] [address] [place], [address] CO2 [Moles/Vol] 14.5 mmol/L Low 21.0-32.[address] [facility] Comment on above: Performed By: #### L 500.2500 ####[facility] [address] [place], [address] Creatinine [Mass/Vol] 1.00 mg/dL Normal 0.70-1.20 [facility] Comment on above: Performed By: #### L 500.2500 ####[facility] [address] [place], [address] ECRCL 78.07 ml/min Normal 50-[address] [facility] Comment on above: Performed By: #### L 500.2500 ####[facility] [address] [place], [address] GAP 19 High 5-[address] [facility] Comment on above: Performed By: #### L 500.2500 ####[facility] [address] [place], [address] GFR/1.73 sq M.predicted among non-blacks MDRD (S/P/Bld) [Vol rate/Area] 85 mL/min/{1.73_m2} Normal >[address] [facility] Comment on above: Result Comment: mL/m in/1.73m2 CKD-EPI Creatinine Equation (2020) Performed By: #### L 500.2500 ####[facility] [address] [place], [address] Glucose [Mass/Vol] 142 mg/dL High 70-99 [facility] Comment on above: Performed By: #### L 500.2500 ####[facility] [address] [place], [address] Potassium [Moles/Vol] 3.1 mmol/L Low 3.3-5.1 [facility] Comment on above: Performed By: #### L 500.2500 ####[facility] [address] [place], [address] Sodium [Moles/Vol] 122 mmol/L Low 133-145 [facility] Comment on above: Performed By: #### L 500.2500 ####[facility] [address] [place], [address] Urea nitrogen [Mass/Vol] 16 mg/dL Normal 4-[address] [facility] Comment on above: Performed By: #### L 500.2500 ####[facility] [address] [place], [address] Beta-Hydroxbytyrateon 2024 BETA-HYDROXYBUT 3.0 mmol/L Normal 0.0-0.[address] [facility] Comment on above: Performed By: #### L 501.2300, L501.5101, L501.6901 ####[facility] [address] [place], [address] Beta-hydroxybutyrateOrdered By: Shorty Lea on 01-19-2025 Beta hydroxybutyrate [Mass/Vol] 3.0 mmol/L 0.0-0.[address] [facility] Bilirubin Test strip Ql (U)O rdered By: Milagro Sanders on 01-19-2025 Bilirubin Ql (U) Negative Negative [facility] Brain/Head without Contrasto n 01-19-2025 Brain/Head without Contrast Normal [facility] CBC W/Diff, Automatedon 05- SMEAR COMMENT COMMENT Normal [facility] Comment on above: Result Comment: LYMP HOPENIA.ANEMIA. Performed By: #### L 300.3900, L300.4310, L100.0100, L500.4050, L501.9100, L501.2450, L501.3620 ####[facility] [address] [place], [address] Anisocytosis Ql (Bld) 2+ Normal [facility] Comment on above: Performed By: #### L 300.3900, L300.4310, L100.0100, L500.4050, L501.9100, L501.2450, L501.3620 ####[facility] [address] [place], [address] PLT EST MKD DEC Normal ADEQ [facility] Comment on above: Performed By: #### L 300.3900, L300.4310, L100.0100, L500.4050, L501.9100, L501.2450, L501.3620 ####[facility] [address] [place], [address] CO2 (BldV) [Moles/Vol]Ordere d By: Milagro Sanders on 01-19-2025 CO2 [Moles/Vol] 17 mmol/L Low 23-[address] [facility] CPK Total, Creatine Kinaseon 01-19-2025 CPK TOTAL 19 U/L Low 24-[address] [facility] Comment on above: Performed By: #### L 300.3900, L300.4310, L100.0100, L500.4050, L501.9100, L501.2450, L501.3620 ####[facility] [address] [place], [address] Chest 1 View (Portable)on Chest 1 View (Portable) Normal [facility] Comprehensive Metabolic Prof ilon 01-19-2025 Albumin [Mass/Vol] 3.5 g/dL Normal 3.4-4.8 [facility] Comment on above: Performed By: #### L 300.3900, L300.4310, L100.0100, L500.4050, L501.9100, L501.2450, L501.3620 ####[facility] [address] [place], [address] Albumin/Globulin [Mass ratio] 1.2 {ratio} Normal 0.9-2.[address] [facility] Comment on above: Performed By: #### L 300.3900, L300.4310, L100.0100, L500.4050, L501.9100, L501.2450, L501.3620 ####[facility] [address] [place], [address] ALK PHOS 93 U/L Normal 40-[address] [facility] Comment on above: Performed By: #### L 300.3900, L300.4310, L100.0100, L500.4050, L501.9100, L501.2450, L501.3620 ####[facility] [address] [place], [address] ALT [Catalytic activity/Vol] 21 U/L Normal <=[address] [facility] Comment on above: Performed By: #### L 300.3900, L300.4310, L100.0100, L500.4050, L501.9100, L501.2450, L501.3620 ####[facility] [address] [place], [address] AST [Catalytic activity/Vol] 49 U/L High <=[address] [facility] Comment on above: Performed By: #### L 300.3900, L300.4310, L100.0100, L500.4050, L501.9100, L501.2450, L501.3620 ####[facility] [address] [place], [place], [phone] Bilirubin [Mass/Vol] 0.61 mg/dL Normal 0.00-1.30 [facility] Comment on above: Performed By: #### L 300.3900, L300.4310, L100.0100, L500.4050, L501.9100, L501.2450, L501.3620 ####[facility] [address] [place], [place], [phone] BUN/CRE 14.4 RATIO Normal 10-[address] [facility] Comment on above: Performed By: #### L 300.3900, L300.4310, L100.0100, L500.4050, L501.9100, L501.2450, L501.3620 ####[facility] [address] [place], [address] Calcium [Mass/Vol] 7.8 mg/dL Normal 7.6-11.0 [facility] Comment on above: Performed By: #### L 300.3900, L300.4310, L100.0100, L500.4050, L501.9100, L501.2450, L501.3620 ####[facility] [address] [place], [address] Chloride [Moles/Vol] 85 mmol/L Low 98-108 [facility] Comment on above: Performed By: #### L 300.3900, L300.4310, L100.0100, L500.4050, L501.9100, L501.2450, L501.3620 ####[facility] [address] [place], [address] CO2 [Moles/Vol] 15.7 mmol/L Low 21.0-32.[address] [facility] Comment on above: Performed By: #### L 300.3900, L300.4310, L100.0100, L500.4050, L501.9100, L501.2450, L501.3620 ####[facility] [address] [place], [address] Creatinine [Mass/Vol] 1.02 mg/dL Normal 0.70-1.20 [facility] Comment on above: Performed By: #### L 300.3900, L300.4310, L100.0100, L500.4050, L501.9100, L501.2450, L501.3620 ####[facility] [address] [place], [address] ECRCL 74.13 ml/min Normal 50-[address] [facility] Comment on above: Performed By: #### L 300.3900, L300.4310, L100.0100, L500.4050, L501.9100, L501.2450, L501.3620 ####[facility] [address] [place], [address] GAP 20 High 5-[address] [facility] Comment on above: Performed By: #### L 300.3900, L300.4310, L100.0100, L500.4050, L501.9100, L501.2450, L501.3620 ####[facility] [address] [place], [address] GFR/1.73 sq M.predicted among non-blacks MDRD (S/P/Bld) [Vol rate/Area] 83 mL/min/{1.73_m2} Normal >[address] [facility] Comment on above: Result Comment: mL/m in/1.73m2 CKD-EPI Creatinine Equation (2020) Performed By: #### L 300.3900, L300.4310, L100.0100, L500.4050, L501.9100, L501.2450, L501.3620 ####[facility] [address] [place], [address] Globulin (S) [Mass/Vol] 3.0 g/dL Normal 2.2-4.2 [facility] Comment on above: Performed By: #### L 300.3900, L300.4310, L100.0100, L500.4050, L501.9100, L501.2450, L501.3620 ####[facility] [address] [place], [address] Glucose [Mass/Vol] 118 mg/dL High 70-99 [facility] Comment on above: Performed By: #### L 300.3900, L300.4310, L100.0100, L500.4050, L501.9100, L501.2450, L501.3620 ####[facility] [address] [place], [address] Potassium [Moles/Vol] 2.9 mmol/L Low 3.3-5.1 [facility] Comment on above: Performed By: #### L 300.3900, L300.4310, L100.0100, L500.4050, L501.9100, L501.2450, L501.3620 ####[facility] [address] [place], [place], [address] Sodium [Moles/Vol] 121 mmol/L Low 133-145 [facility] [facility] Comment on above: Performed By: #### L 300.3900, L300.4310, L100.0100, L500.4050, L501.9100, L501.2450, L501.3620 ####[facility] [address] [place], [place], [id number] T PROT 6.5 g/dL Normal 5.9-8.[address] [facility] Comment on above: Performed By: #### L 300.3900, L300.4310, L100.0100, L500.4050, L501.9100, L501.2450, L501.3620 ####[facility] [address] [place], [place], [id number] Urea nitrogen [Mass/Vol] 15 mg/dL Normal 4-[address] [facility] Comment on above: Performed By: #### L 300.3900, L300.4310, L100.0100, L500.4050, L501.9100, L501.2450, L501.3620 ####[facility] [address] [place], [place], [address] Emergency Department Summary on 01-19-2025 Emergency Department Summary Normal [facility] Gamma glutamyl transferase ( GGT) measurementOrdered By: Shorty Lea on 01-19-2025 Amylase [Catalytic activity/Vol] 31 U/L 0-[address] [facility] Comment on above: Performed at: [facility] [address] [id number] Director: Harrison Villareal PhD, Phone: [phone] H AND P Exam - Hospitaliston 01-19-2025 H&P Exam - Hospitalist Normal [facility] HH, Hemoglobin AND Hematocri ton 01-19-2025 Hematocrit (Bld) [Volume fraction] 22.4 % Low 40-[address] [facility] Comment on above: Performed By: #### L 100.0600 ####[facility] [address] [place], [place], [phone] Hemoglobin (Bld) [Mass/Vol] 8.3 g/dL Low 13.0-16.[address] [facility] Comment on above: Performed By: #### L 100.0600 ####[facility] [address] [place], [place], [phone] Immature platelet percentage Ordered By: Shorty Lea on 01-19-2025 Platelets reticulated/100 platelets Auto (Bld) 4.7 % 1.0-7.[address] [facility] Comment on above: Low PLT + Low IPF carter ggest a bone marrow production disorderLow PLT + high IPF suggests peripheral destruction(e.g.ITP, TTP, HIT, DIC, autoimmune) or bone marrow recoveryTrending of serial IPF measurements is recommended when evaluating for bone marrow responesValue above normal range indicates an increase in RBC cellular response from bone marrow. International normalized rat io (INR) calculationOrdered By: Milagro Sanders on 01-19-2025 INR Coag (Bld) [Relative time] 1.0 {INR} [facility] Ketones Test strip Ql (U)Ord ered By: Milagro Sanders on 01-19-2025 Ketones Ql (U) 50 mg/dl High Negative [facility] LDHon 01-19-2025 LDH 191 U/L Normal 87-[address] [facility] Comment on above: Performed By: #### L 3100.1850, Z50414-9, L504.2610 ####[facility] [address] [place], [place], [phone] Lactate dehydrogenase (LDH) measurementOrdered By: Shorty Lea on 01-19-2025 LDH [Catalytic activity/Vol] 191 U/L 87-[address] [facility] Lipaseon 01-19-2025 Lipase [Catalytic activity/Vol] 36 U/L Normal 13-[address] [facility] Comment on above: Result Comment: Plea se note:LIPASE revised reference range effective 22.New Lipase methodology. Expected to produce lower valuesthan the previous assay method.NEW Reference Range: 13 - 75 U/L Performed By: #### L 300.3900, L300.4310, L100.0100, L500.4050, L501.9100, L501.2450, L501.3620 ####[facility] [address] [place], [place], [phone] Lipase measurementOrdered By : Milagro Sanders on 01-19-2025 Lipase [Catalytic activity/Vol] 36 U/L 13-[address] [facility] Comment on above: Please note:LIPASE r evised reference range effective 22. New Lipase methodology. Expected to produce lower values than the previous assay method. NEW Reference Range: 13 - 75 U/L Magnesiumon 01-19-2025 Magnesium [Mass/Vol] 1.0 mg/dL Low 1.5-2.2 [facility] Comment on above: Performed By: #### L 501.5200 ####[facility] [address] [place], [place], [phone] Microscopic analysis of urin e for red blood cells (RBC)Ordered By: Milagro Sanders on 01-19-2025 Microscopic analysis of urine for red blood cells (RBC) 0 SEEN /hpf 0-[address] [facility] Mucus LM Ql (Urine sed)Order ed By: Milagro Sanders on 01-19-2025 Mucus Ql (Urine sed) 0 SEEN /hpf [facility] Nitrite Test strip Ql (U)Ord ered By: Milagro Sanders on 01-19-2025 Nitrite Ql (U) Negative Negative [facility] No Panel InformationOrdered By: Milagro Sanders on 01-19-2025 Blood Gas Sample Site Not entered [facility] Blood Gas Specimen Type SAGRARIO W [facility] Oxygen Delivery Device Not entered [facility] Partial Thromboplast Timeon 01-19-2025 aPTT Coag (Bld) [Time] 35.9 s Normal 24.1-36.2 [facility] Comment on above: Performed By: #### L 300.3900, L300.4310, L100.0100, L500.4050, L501.9100, L501.2450, L501.3620 ####[facility] [address] [place], [place], [phone] Pelvis 1 or 2 Viewson 2024 Pelvis 1 or 2 Views Normal [facility] Phosphoruson 01-19-2025 Phosphate [Mass/Vol] 1.5 mg/dL Low 2.7-4.5 [facility] Comment on above: Performed By: #### L 501.2300, L501.5101, L501.6901 ####[facility] [address] [place], [place], [phone] Protein Test strip Ql (U)Ord ered By: Milagro Sanders on 01-19-2025 Protein Ql (U) 30 mg/dl High Negative [facility] Prothrombin Time w/INRon INR Coag (PPP) [Relative time] 1.0 {INR} Normal [facility] Comment on above: Performed By: #### L 300.3900, L300.4310, L100.0100, L500.4050, L501.9100, L501.2450, L501.3620 ####[facility] [address] [place], [address] PT Coag (PPP) [Time] 13.8 s Normal 11.7-14.9 [facility] Comment on above: Performed By: #### L 300.3900, L300.4310, L100.0100, L500.4050, L501.9100, L501.2450, L501.3620 ####[facility] [address] [place], [place], [phone] Prothrombin timeOrdered By: Milagro Sanders on 01-19-2025 PT Coag (PPP) [Time] 13.8 s 11.7-14.9 [facility] Retic Panelon 01-19-2025 IM RET FRACTION 6.60 Normal 3.00-15.[address] [facility] Comment on above: Performed By: #### L 100.9950 ####[facility] [address] [place], [place], [phone] IPF 4.7 Normal 1.0-7.[address] [facility] Comment on above: Result Comment: Low PLT + Low IPF suggest a bone marrow production disorderLow PLT + high IPF suggests peripheral destruction(e.g.ITP, TTP, HIT, DIC, autoimmune) or bone marrow recoveryTrending of serial IPF measurements is recommended whenevaluating for bone marrow responesValue above normal range indicates an increase in RBCcellular response from bone marrow. Performed By: #### L 100.9950 ####[facility] [address] [place], [place], [phone] RET-HE 35.9 pg High 30-[address] [facility] Comment on above: Performed By: #### L 100.9950 ####[facility] [address] [place], [place], [id number] Retic Count 0.26 Low 0.5-1.[address] [facility] Comment on above: Performed By: #### L 100.9950 ####[facility] [address] [place], [place], [phone] Reticulocyte hemoglobin equi valent (RET-He) measurementOrdered By: Shorty Lea on 01-19-2025 Hemoglobin (Reticulocytes) [Entitic mass] 35.9 pg High 30-[address] [facility] Reticulocytes Auto (Bld) [#/ Vol]Ordered By: Shorty Lea on 01-19-2025 Reticulocytes/100 RBC (Bld) 0.26 % Low 0.5-1.[address] [facility] Serum or plasma creatine kin ase activityOrdered By: Milagro Sanders on 01-19-2025 CK [Catalytic activity/Vol] 19 U/L Low 24-[address] [facility] Serum or plasma ethanol ed urement (mass/volume)Ordered By: Milagro Sanders on 01-19-2025 Ethanol [Mass/Vol] mg/dL <10.1 [facility] Comment on above: This test is for med ical purposes only. The legal definition of intoxication varies according to local law. Squamous epithelial cells de tection in urine sediment by light microscopyOrdered By: Milagro Sanders on 01-19-2025 Epithelial cells.squamous LM Ql (Urine sed) 0-5 SEEN /hpf 0-[address] [facility] Stool Occult Blood iFOBon STOB Normal [facility] Comment on above: Performed By: #### B ODALYS VELASQUEZ, M100.7900 ####[facility] [address] [place], [place], [phone] Stool gastrointestinal hemog lobin detection by immunologic methodOrdered By: Milagro Sanders on 01-19-2025 Lower GI hemoglobin IA Ql (Stl) [facility] Type AND Screenon 01-19-2025 ABO and Rh group Nom (Bld) Blood group A Rh(D) positive Normal [facility] Comment on above: Order Comment: CMV N EG? NNumber of units to transfuse: 2Is pt's Hgb is = to 7.0 mg/dl or Hct </= 21%? YReason for Ordering Blood: ChronicAre the blood/blood products to be transfused? YIs the patient having/had surgery? NWgenna Warren Performed By: #### B ODALYS VELASQUEZ, M100.7900 ####[facility] [address] [place], [address] Urinalysis, Completeon 01-19 EPI,SQUAMOUS 0-5 SEEN Normal 0-[address] [facility] Comment on above: Order Comment: CLEAN CATCH Performed By: #### L 400.0001 ####[facility] [address] [place], [address] BACTERIA 0 SEEN Normal None Seen [facility] Comment on above: Order Comment: CLEAN CATCH Performed By: #### L 400.0001 ####[facility] [address] [place], [address] Mucus Ql (Urine sed) 0 SEEN Normal [facility] Comment on above: Order Comment: CLEAN CATCH Performed By: #### L 400.0001 ####[facility] [address] [place], [address] RBC 0 SEEN Normal 0-[address] [facility] Comment on above: Order Comment: CLEAN CATCH Performed By: #### L 400.0001 ####[facility] [address] [place], [address] WBC 0 SEEN Normal 0-[address] [facility] Comment on above: Order Comment: CLEAN CATCH Performed By: #### L 400.0001 ####[facility] [address] [place], [place], [phone] Urine clarityOrdered By: Brisa Sanders on 01-19-2025 Clarity (U) Clear Clear [facility] Urine color determinationOrd ered By: Milagro Sanders on 01-19-2025 Color (U) Yellow Yellow [facility] Urine glucose detectionOrder ed By: Milagro Sanders on 01-19-2025 Glucose Ql (U) Normal mg/dl Normal [facility] Urine leukocyte esterase det ection by dipstickOrdered By: Milagro Sanders on 01-19-2025 Leukocyte esterase Test strip Ql (U) Negative Negative [facility] Urine pHOrdered By: Milagro juárez on 01-19-2025 pH (U) 7.0 [pH] 5.0 - 8.[address] [facility] Urine sediment bacteria coun t by microscopy (number/high power field)Ordered By: Milagro Sanders on 01-19-2025 Bacteria LM.HPF (Urine sed) [#/Area] 0 /[HPF] None Seen [facility] Urine specific gravity measu rementOrdered By: Milagro Sanders on 01-19-2025 Specific gravity (U) [Rel density] 1.005 1.002-1.[address] [facility] Urine urobilinogen measureme ntOrdered By: Milagro Sanders on 01-19-2025 Urobilinogen Ql (U) 1 mg/dl High Normal [facility] Venous Blood Gason 5 Blood Gas Type SAGRARIO Normal [facility] Comment on above: Performed By: #### L 9000.0810 ####[facility] [address] [place], [address] CO2 [Moles/Vol] 17 mmol/L Low 23-[address] [facility] Comment on above: Performed By: #### L 9000.0810 ####[facility] [address] [place], [address] HCO3 (Bld) [Moles/Vol] 16 mmol/L Low 22-26 [facility] Comment on above: Performed By: #### L 9000.0810 ####[facility] [address] [place], [address] O2 Delivery Dev Not entered [facility] Comment on above: Performed By: #### L 9000.0810 ####[facility] [address] [place], [address] SITE Not entered [facility] Comment on above: Performed By: #### L 9000.0810 ####[facility] [address] [place], [address] VBG BE -10 mmol/L Low -1.0-3.[address] [facility] Comment on above: Performed By: #### L 9000.0810 ####[facility] [address] [place], [address] VBG pCO2 26.8 mmHg Low 41-[address] [facility] Comment on above: Performed By: #### L 9000.0810 ####[facility] [address] [place], [address] VBG pH 7.38 Normal 7.32-7.[address] [facility] Comment on above: Performed By: #### L 9000.0810 ####[facility] [address] [place], [address] VBG PO2 81 mmHg High 25-[address] [facility] Comment on above: Performed By: #### L 9000.0810 ####[facility] [address] [place], [address] VBG SO2 96 High 50-[address] [facility] Comment on above: Performed By: #### L 9000.0810 ####[facility] [address] [place], [place], [address] Venous blood base excess poly surementOrdered By: Milagro Sanders on 01-19-2025 Base excess Calc (BldV) [Moles/Vol] -10 mmol/L Low -1.0-3.[address] [facility] Venous blood bicarbonate poly surementOrdered By: Milagro Sanders on 01-19-2025 HCO3 (Bld) [Moles/Vol] 16 mmol/L Low 22-26 [facility] Venous blood oxygen saturati on measurementOrdered By: Milagro Sanders on 01-19-2025 Oxygen saturation in Blood 96 % High 50-[address] [facility] Venous blood pH measurementO rdered By: Milagro Sanders on 01-19-2025 pH (BldV) 7.38 [pH] 7.32-7.[address] [facility] Venous blood partial pressur e of carbon dioxide measurementOrdered By: Milagro Sanders on 01-19-2025 CO2 (BldV) [Partial pressure] 26.8 mm[Hg] Low 41-[address] [facility] Venous blood partial pressur e of oxygen measurementOrdered By: Milagro Sanders on 01-19-2025 Oxygen (BldV) [Partial pressure] 81 mm[Hg] High 25-[address] [facility] White blood cell countOrdere d By: Milagro Sanders on 01-19-2025 White blood cell count 0 SEEN /hpf 0-5 [facility] OT Functional Capacity Evalo n 10-05-2024 OT Functional Capacity Eval Normal [facility] OT Functional Capacity Eval Normal [facility] CBC W/Diff, Automatedon 12-1 Absolute Lymph 1.10 X10 3/uL Normal 0.83-4.[address] [facility] Comment on above: Performed By: #### L 500.4050, L501.9520, L100.0100, L500.4100 ####[facility] [address] [place], [address] Absolute Neut 3.1 X10 3/uL Normal 2.0-7.[address] [facility] Comment on above: Performed By: #### L 500.4050, L501.9520, L100.0100, L500.4100 ####[facility] [address] [place], [address] Basophils/100 WBC (Bld) 0.6 % Normal 0-1 [facility] Comment on above: Performed By: #### L 500.4050, L501.9520, L100.0100, L500.4100 ####[facility] [address] [place], [address] Eosinophils/100 WBC (Bld) 4.8 % Normal 0-[address] [facility] Comment on above: Performed By: #### L 500.4050, L501.9520, L100.0100, L500.4100 ####[facility] [address] [place], [address] Erythrocyte distribution width (RBC) [Ratio] 13.2 % Normal 11.6-14.[address] [facility] Comment on above: Performed By: #### L 500.4050, L501.9520, L100.0100, L500.4100 ####[facility] [address] [place], [address] Hematocrit (Bld) [Volume fraction] 26.6 % Low 40-[address] [facility] Comment on above: Performed By: #### L 500.4050, L501.9520, L100.0100, L500.4100 ####[facility] [address] [place], [address] Hemoglobin (Bld) [Mass/Vol] 9.5 g/dL Low 13.0-16.[address] [facility] Comment on above: Performed By: #### L 500.4050, L501.9520, L100.0100, L500.4100 ####[facility] [address] [place], [address] IG% 0.600 Normal 0.0-0.[address] [facility] Comment on above: Result Comment: IG% - Immature Granulocytes (promyelocytes, myelocytes andmetamyelocytes) > 1% indicates that a LEFT SHIFT is Present. Performed By: #### L 500.4050, L501.9520, L100.0100, L500.4100 ####[facility] [address] [place], [address] Lymphocytes/100 WBC (Bld) 22.2 % Normal 19-[address] [facility] Comment on above: Performed By: #### L 500.4050, L501.9520, L100.0100, L500.4100 ####[facility] [address] [place], [address] MCH (RBC) [Entitic mass] 34.7 pg High 27.0-32.[address] [facility] Comment on above: Performed By: #### L 500.4050, L501.9520, L100.0100, L500.4100 ####[facility] [address] [place], [address] MCHC (RBC) [Mass/Vol] 35.7 g/dL Normal 32-36 [facility] Comment on above: Performed By: #### L 500.4050, L501.9520, L100.0100, L500.4100 ####[facility] [address] [place], [address] MCV (RBC) [Entitic vol] 97.1 fL High 80-94 [facility] Comment on above: Performed By: #### L 500.4050, L501.9520, L100.0100, L500.4100 ####[facility] [address] [place], [address] Monocytes/100 WBC (Bld) 9.3 % Normal 0-10 [facility] Comment on above: Performed By: #### L 500.4050, L501.9520, L100.0100, L500.4100 ####[facility] [address] [place], [address] Neutrophils/100 WBC (Bld) 62.5 % Normal 47-[address] [facility] Comment on above: Performed By: #### L 500.4050, L501.9520, L100.0100, L500.4100 ####[facility] [address] [place], [address] Nucleated RBC (Bld) [#/Vol] 0 10*3/uL Normal 0-[address] [facility] Comment on above: Performed By: #### L 500.4050, L501.9520, L100.0100, L500.4100 ####[facility] [address] [place], [address] Platelet mean volume (Bld) [Entitic vol] 9.1 fL Normal 6.2-12.[address] [facility] Comment on above: Performed By: #### L 500.4050, L501.9520, L100.0100, L500.4100 ####[facility] [address] [place], [address] Platelets (Bld) [#/Vol] 143 10*3/uL Low 150-[address] [facility] Comment on above: Performed By: #### L 500.4050, L501.9520, L100.0100, L500.4100 ####[facility] [address] [place], [address] RBC (Bld) [#/Vol] 2.74 10*6/uL Low 4.6-6.2 [facility] Comment on above: Performed By: #### L 500.4050, L501.9520, L100.0100, L500.4100 ####[facility] [address] [place], [address] RDW SD 46.3 fl High 35.1-43.[address] [facility] Comment on above: Performed By: #### L 500.4050, L501.9520, L100.0100, L500.4100 ####[facility] [address] [place], [address] WBC (Bld) [#/Vol] 5.0 10*3/uL Normal 4.4-11.0 [facility] Comment on above: Performed By: #### L 500.4050, L501.9520, L100.0100, L500.4100 ####[facility] [address] [place], [address] Comprehensive Metabolic [facility] 08-30-2024 Albumin [Mass/Vol] 3.8 g/dL Normal 3.2-5.0 [facility] Comment on above: Performed By: #### L 500.4050, L501.9520, L100.0100, L500.4100 ####[facility] [address] [place], [address] Albumin/Globulin [Mass ratio] 1.1 {ratio} Normal 0.9-2.[address] [facility] Comment on above: Performed By: #### L 500.4050, L501.9520, L100.0100, L500.4100 ####[facility] [address] [place], [address] ALK P 84 U/L Normal 45-[address] [facility] Comment on above: Performed By: #### L 500.4050, L501.9520, L100.0100, L500.4100 ####[facility] [address] [place], [address] ALT [Catalytic activity/Vol] 26 U/L Normal 16-[address] [facility] Comment on above: Performed By: #### L 500.4050, L501.9520, L100.0100, L500.4100 ####[facility] [address] [place], [address] AST [Catalytic activity/Vol] 25 U/L Normal 15-[address] [facility] Comment on above: Performed By: #### L 500.4050, L501.9520, L100.0100, L500.4100 ####[facility] [address] [place], [address] Bilirubin [Mass/Vol] 0.30 mg/dL Normal 0.20-1.00 [facility] Comment on above: Result Comment: For patients on eltrombopag therapy, use of Dimension Ecru TBIL is not recommended. Performed By: #### L 500.4050, L501.9520, L100.0100, L500.4100 ####[facility] [address] [place], [address] BUN/CRE 10.8 RATIO Normal 10-[address] [facility] Comment on above: Performed By: #### L 500.4050, L501.9520, L100.0100, L500.4100 ####[facility] [address] [place], [address] CA,Total 8.4 mg/dL Low 8.5-10.[address] [facility] Comment on above: Performed By: #### L 500.4050, L501.9520, L100.0100, L500.4100 ####[facility] [address] [place], [address] Chloride [Moles/Vol] 94 mmol/L Low 98-107 [facility] Comment on above: Performed By: #### L 500.4050, L501.9520, L100.0100, L500.4100 ####[facility] [address] [place], [address] CO2 [Moles/Vol] 21.0 mmol/L Normal 21.0-32.[address] [facility] Comment on above: Performed By: #### L 500.4050, L501.9520, L100.0100, L500.4100 ####[facility] [address] [place], [address] Creatinine [Mass/Vol] 1.02 mg/dL Normal 0.70-1.30 [facility] Comment on above: Result Comment: The validity of the calculated GFR GFRAA in patients over70 years has not been determined. Clinical correlation isessential. Performed By: #### L 500.4050, L501.9520, L100.0100, L500.4100 ####[facility] [address] [place], [address] EST GFR - AA 95 mL/min Normal >[address] [facility] Comment on above: Result Comment: Afri can Mauritian GFR Calc Performed By: #### L 500.4050, L501.9520, L100.0100, L500.4100 ####[facility] [address] [place], [address] GAP 11 Normal 5-[address] [facility] Comment on above: Performed By: #### L 500.4050, L501.9520, L100.0100, L500.4100 ####[facility] [address] [place], [address] GFR/1.73 sq M.predicted among non-blacks MDRD (S/P/Bld) [Vol rate/Area] 78 mL/min/{1.73_m2} Normal >[address] [facility] Comment on above: Result Comment: Non- GFR Calc Performed By: #### L 500.4050, L501.9520, L100.0100, L500.4100 ####[facility] [address] [place], [address] Globulin (S) [Mass/Vol] 3.4 g/dL Normal 2.2-4.2 [facility] Comment on above: Performed By: #### L 500.4050, L501.9520, L100.0100, L500.4100 ####[facility] [address] [place], [address] Glucose [Mass/Vol] 96 mg/dL Normal 74-106 [facility] Comment on above: Performed By: #### L 500.4050, L501.9520, L100.0100, L500.4100 ####[facility] [address] [place], [address] Potassium [Moles/Vol] 4.1 mmol/L Normal 3.5-5.1 [facility] Comment on above: Performed By: #### L 500.4050, L501.9520, L100.0100, L500.4100 ####[facility] [address] [place], [address] Sodium [Moles/Vol] 126 mmol/L Low 136-145 [facility] Comment on above: Performed By: #### L 500.4050, L501.9520, L100.0100, L500.4100 ####[facility] [address] [place], [address] T PROT 7.2 g/dL Normal 6.4-8.[address] [facility] Comment on above: Performed By: #### L 500.4050, L501.9520, L100.0100, L500.4100 ####[facility] [address] [place], [address] Urea nitrogen [Mass/Vol] 11 mg/dL Normal 7-[address] [facility] Comment on above: Performed By: #### L 500.4050, L501.9520, L100.0100, L500.4100 ####[facility] [address] [place], [address] Lipid Profileon 08-30-2024 Cholesterol [Mass/Vol] 143 mg/dL Normal 200 [facility] Comment on above: Result Comment: <200 mg/dL Desirable 200-240 mg/dL Borderline >240 mg/dL High Risk Performed By: #### L 500.4050, L501.9520, L100.0100, L500.4100 ####[facility] [address] [place], [address] Cholesterol in HDL [Mass/Vol] 106 mg/dL Normal [facility] Comment on above: Result Comment: The drugs N-Acetylcysteine and Metamizole may falselydepress this assay. Reference Range HDL <40 mg/dL Low HDL Cholesterol HDL >or= 60 mg/dL High HDL Cholesterol Performed By: #### L 500.4050, L501.9520, L100.0100, L500.4100 ####[facility] [address] [place], [address] Cholesterol in LDL [Mass/Vol] 25 mg/dL Normal 0-[address] [facility] Comment on above: Performed By: #### L 500.4050, L501.9520, L100.0100, L500.4100 ####[facility] [address] [place], [address] Cholesterol in VLDL [Mass/Vol] 12 mg/dL Normal 5-[address] [facility] Comment on above: Performed By: #### L 500.4050, L501.9520, L100.0100, L500.4100 ####[facility] [address] [place], [address] Triglyceride [Mass/Vol] 59 mg/dL Normal [facility] Comment on above: Result Comment: The drugs N-Acetylcysteine and Metamizole may falselydepress this assay.Serum Triglycerides Reference Interval Normal <150 mg/dL Borderline high 150 - 199 mg/dL High 200 - 499 mg/dL Very High > or = 500 mg/dL Performed By: #### L 500.4050, L501.9520, L100.0100, L500.4100 ####[facility] [address] [place], [address] Thyroid Stim Hormone (TSH)on 08-30-2024 TSH 2.680 uIU/mL Normal 0.358-3.[address] [facility] Comment on above: Performed By: #### L 500.4050, L501.9520, L100.0100, L500.4100 ####[facility] [address] [place], [address] CBC W/Diff, Automatedon 08-1 Absolute Lymph 0.98 X10 3/uL Normal 0.83-4.[address] [facility] Comment on above: Performed By: #### L 100.0100 ####[facility] [address] [place], [address] Absolute Neut 2.5 X10 3/uL Normal 2.0-7.[address] [facility] Comment on above: Performed By: #### L 100.0100 ####[facility] [address] [place], [address] Basophils/100 WBC (Bld) 0.5 % Normal 0-1 [facility] Comment on above: Performed By: #### L 100.0100 ####[facility] [address] [place], [address] Eosinophils/100 WBC (Bld) 5.3 % High 0-[address] [facility] Comment on above: Performed By: #### L 100.0100 ####[facility] [address] [place], [address] Erythrocyte distribution width (RBC) [Ratio] 16.2 % High 11.6-14.[address] [facility] Comment on above: Performed By: #### L 100.0100 ####[facility] [address] [place], [address] Hematocrit (Bld) [Volume fraction] 23.3 % Low 40-[address] [facility] Comment on above: Performed By: #### L 100.0100 ####[facility] [address] [place], [address] Hemoglobin (Bld) [Mass/Vol] 7.8 g/dL Low 13.0-16.[address] [facility] Comment on above: Performed By: #### L 100.0100 ####[facility] [address] [place], [address] IG% 1.000 High 0.0-0.[address] [facility] Comment on above: Result Comment: IG% - Immature Granulocytes (promyelocytes, myelocytes andmetamyelocytes) > 1% indicates that a LEFT SHIFT is Present. Performed By: #### L 100.0100 ####[facility] [address] [place], [address] Lymphocytes/100 WBC (Bld) 23.7 % Normal 19-[address] [facility] Comment on above: Performed By: #### L 100.0100 ####[facility] [address] [place], [address] MCH (RBC) [Entitic mass] 30.5 pg Normal 27.0-32.[address] [facility] Comment on above: Performed By: #### L 100.0100 ####[facility] [address] [place], [address] MCHC (RBC) [Mass/Vol] 33.5 g/dL Normal 32-36 [facility] Comment on above: Performed By: #### L 100.0100 ####[facility] [address] [place], [address] MCV (RBC) [Entitic vol] 91.0 fL Normal 80-94 [facility] Comment on above: Performed By: #### L 100.0100 ####[facility] [address] [place], [address] Monocytes/100 WBC (Bld) 8.2 % Normal 0-10 [facility] Comment on above: Performed By: #### L 100.0100 ####[facility] [address] [place], [address] Neutrophils/100 WBC (Bld) 61.3 % Normal 47-[address] [facility] Comment on above: Performed By: #### L 100.0100 ####[facility] [address] [place], [address] Nucleated RBC (Bld) [#/Vol] 0 10*3/uL Normal 0-[address] [facility] Comment on above: Performed By: #### L 100.0100 ####[facility] [address] [place], [address] Platelet mean volume (Bld) [Entitic vol] 8.9 fL Normal 6.2-12.[address] [facility] Comment on above: Performed By: #### L 100.0100 ####[facility] [address] [place], [address] Platelets (Bld) [#/Vol] 156 10*3/uL Normal 150-[address] [facility] Comment on above: Performed By: #### L 100.0100 ####[facility] [address] [place], [address] RBC (Bld) [#/Vol] 2.56 10*6/uL Low 4.6-6.2 [facility] Comment on above: Performed By: #### L 100.0100 ####[facility] [address] [place], [address] RDW SD 52.7 fl High 35.1-43.[address] [facility] Comment on above: Performed By: #### L 100.0100 ####[facility] [address] [place], [address] WBC (Bld) [#/Vol] 4.1 10*3/uL Low 4.4-11.0 [facility] Comment on above: Performed By: #### L 100.0100 ####[facility] [address] [place], [address] Celiac AB,Comprehensiveon ANTIGLIADIN IGA 45 units Abnormal 0-[address] [facility] Comment on above: Result Comment: Nega tive 0 - 19 Weak Positive 20 - 30 Moderate to Strong Positive >30 Performed By: #### L 3100.1850, L3100.3425, L3410.2350, L500.3400, L504.2610 ####[facility] [address] [place], [address] ANTIGLIADIN IGG 2 units Normal 0-[address] [facility] Comment on above: Result Comment: Nega tive 0 - 19 Weak Positive 20 - 30 Moderate to Strong Positive >30 Performed By: #### L 3100.1850, L3100.3425, L3410.2350, L500.3400, L504.2610 ####[facility] [address] [place], [address] ENDOMYSIAL IGA Negative Normal Negative [facility] Comment on above: Performed By: #### L 3100.1850, L3100.3425, L3410.2350, L500.3400, L504.2610 ####[facility] [address] [place], [place], [address] tTG IGA <2 Normal 0-[address] [facility] Comment on above: Result Comment: Nega tive 0 - 3 Weak Positive 4 - 10 Positive >10 Tissue Transglutaminase (tTG) has been identified as the endomysial antigen. Studies have demonstr- ated that endomysial IgA antibodies have over 99% specificity for gluten sensitive enteropathy. Performed By: #### L 3100.1850, L3100.3425, L3410.2350, L500.3400, L504.2610 ####[facility] [address] [place], [address] tTG IGG 3 U/mL Normal 0-[address] [facility] Comment on above: Result Comment: Nega tive 0 - 5 Weak Positive 6 - 9 Positive >9 Performed By: #### L 3100.1850, L3100.3425, L3410.2350, L500.3400, L504.2610 ####[facility] [address] [place], [address] Haptoglobinon 04-27-2024 HAPTOGLOBIN 157 mg/dL Normal 32-[address] [facility] Comment on above: Result Comment: Perf ormed at: - [facility] [id number] Director: Harrison Villareal PhD, Phone: [phone] Performed By: #### L 3100.1850, L3100.3425, L3410.2350, L500.3400, L504.2610 ####[facility] [address] [place], [address] ELY + Protein Elect, Serumon 04-27-2024 Albumin [Mass/Vol] 2.9 g/dL Normal 2.9-4.4 [facility] Comment on above: Performed By: #### L 3100.1850, L3100.3425, L3410.2350, L500.3400, L504.2610 ####[facility] [address] [place], [address] Albumin/Globulin [Mass ratio] 1.2 {ratio} Normal 0.7-1.[address] [facility] Comment on above: Performed By: #### L 3100.1850, L3100.3425, L3410.2350, L500.3400, L504.2610 ####[facility] [address] [place], [address] SBFDB-5-KYFX 0.3 g/dL Normal 0.0-0.[address] [facility] Comment on above: Performed By: #### L 3100.1850, L3100.3425, L3410.2350, L500.3400, L504.2610 ####[facility] [address] [place], [address] LUVAI-5-KLDI 0.7 g/dL Normal 0.4-1.[address] [facility] Comment on above: Performed By: #### L 3100.1850, L3100.3425, L3410.2350, L500.3400, L504.2610 ####[facility] [address] [place], [address] BETA GLOBULIN 0.7 g/dL Normal 0.7-1.[address] [facility] Comment on above: Performed By: #### L 3100.1850, L3100.3425, L3410.2350, L500.3400, L504.2610 ####[facility] [address] [place], [address] GAMMA GLOBULIN 1.0 g/dL Normal 0.4-1.[address] [facility] Comment on above: Performed By: #### L 3100.1850, L3100.3425, L3410.2350, L500.3400, L504.2610 ####[facility] [address] [place], [address] Globulin (S) [Mass/Vol] 2.6 g/dL Normal 2.2-3.9 [facility] Comment on above: Performed By: #### L 3100.1850, L3100.3425, L3410.2350, L500.3400, L504.2610 ####[facility] [address] [place], [address] ELY RESULT,S Comment Normal . [facility] Comment on above: Result Comment: No m onoclonality detected. Performed By: #### L 3100.1850, L3100.3425, L3410.2350, L500.3400, L504.2610 ####[facility] [address] [place], [address] IMMUNOGLOB A QN 295 mg/dL Normal 61-[address] [facility] Comment on above: Performed By: #### L 3100.1850, L3100.3425, L3410.2350, L500.3400, L504.2610 ####[facility] [address] [place], [address] IMMUNOGLOB G QN 1111 mg/dL Normal 603-[address] [facility] Comment on above: Performed By: #### L 3100.1850, L3100.3425, L3410.2350, L500.3400, L504.2610 ####[facility] [address] [place], [address] IMMUNOGLOB M QN 85 mg/dL Normal 20-[address] [facility] Comment on above: Performed By: #### L 3100.1850, L3100.3425, L3410.2350, L500.3400, L504.2610 ####[facility] [address] [place], [address] M-Reyes Not Observed Normal Not Observed [facility] Comment on above: Performed By: #### L 3100.1850, L3100.3425, L3410.2350, L500.3400, L504.2610 ####[facility] [address] [place], [address] NOTE: Comment Normal . [facility] Comment on above: Result Comment: Prot ein electrophoresis scan will follow via computer,mail, or bolting machine operator delivery. Performed By: #### L 3100.1850, L3100.3425, L3410.2350, L500.3400, L504.2610 ####[facility] [address] [place], [address] Protein [Mass/Vol] 5.5 g/dL Low 6.0-8.5 [facility] Comment on above: Performed By: #### L 3100.1850, L3100.3425, L3410.2350, L500.3400, L504.2610 ####[facility] [address] [place], [address] Discharge Instructionon 04-15 Discharge Instruction Normal [facility] Basic Metabolic Profile (BMP )on 04-25-2024 BUN/CRE 5.7 RATIO Low 10-[address] [facility] Comment on above: Performed By: #### L 500.2500, L100.0100 ####[facility] [address] [place], [address] CA,Total 7.6 mg/dL Low 8.5-10.[address] [facility] Comment on above: Performed By: #### L 500.2500, L100.0100 ####[facility] [address] [place], [address] Chloride [Moles/Vol] 106 mmol/L Normal 98-107 [facility] Comment on above: Performed By: #### L 500.2500, L100.0100 ####[facility] [address] [place], [address] CO2 [Moles/Vol] 20.0 mmol/L Low 21.0-32.[address] [facility] Comment on above: Performed By: #### L 500.2500, L100.0100 ####[facility] [address] [place], [address] Creatinine [Mass/Vol] 0.88 mg/dL Normal 0.70-1.30 [facility] Comment on above: Result Comment: The validity of the calculated GFR GFRAA in patients over70 years has not been determined. Clinical correlation isessential. Performed By: #### L 500.2500, L100.0100 ####[facility] [address] [place], [address] ECRCL 68.54 ml/min Normal [facility] Comment on above: Performed By: #### L 500.2500, L100.0100 ####[facility] [address] [place], [address] EST GFR - AA 113 mL/min Normal >[address] [facility] Comment on above: Result Comment: Afri can Mauritian GFR Calc Performed By: #### L 500.2500, L100.0100 ####[facility] [address] [place], [address] GAP 9 Normal 5-[address] [facility] Comment on above: Performed By: #### L 500.2500, L100.0100 ####[facility] [address] [place], [address] GFR/1.73 sq M.predicted among non-blacks MDRD (S/P/Bld) [Vol rate/Area] 93 mL/min/{1.73_m2} Normal >[address] [facility] Comment on above: Result Comment: Non- GFR Calc Performed By: #### L 500.2500, L100.0100 ####[facility] [address] [place], [address] Glucose [Mass/Vol] 102 mg/dL Normal 74-106 [facility] Comment on above: Result Comment: Fast ing Glucose result from 100 to 125 mg/dLsuggests IMPAIRED HOMEOSTASIS per A.D.A. criteria. Performed By: #### L 500.2500, L100.0100 ####[facility] [address] [place], [address] Potassium [Moles/Vol] 3.8 mmol/L Normal 3.5-5.1 [facility] Comment on above: Performed By: #### L 500.2500, L100.0100 ####[facility] [address] [place], [address] Sodium [Moles/Vol] 135 mmol/L Low 136-145 [facility] Comment on above: Performed By: #### L 500.2500, L100.0100 ####[facility] [address] [place], [address] Urea nitrogen [Mass/Vol] 5 mg/dL Low 7-[address] [facility] Comment on above: Performed By: #### L 500.2500, L100.0100 ####[facility] [address] [place], [address] CBC W/Diff, Automatedon 04-15 Absolute Lymph 1.05 X10 3/uL Normal 0.83-4.[address] [facility] Comment on above: Performed By: #### L 500.2500, L100.0100 ####[facility] [address] [place], [address] Absolute Neut 2.7 X10 3/uL Normal 2.0-7.[address] [facility] Comment on above: Performed By: #### L 500.2500, L100.0100 ####[facility] [address] [place], [address] Basophils/100 WBC (Bld) 0.7 % Normal 0-1 [facility] Comment on above: Performed By: #### L 500.2500, L100.0100 ####[facility] [address] [place], [address] Eosinophils/100 WBC (Bld) 5.1 % High 0-[address] [facility] Comment on above: Performed By: #### L 500.2500, L100.0100 ####[facility] [address] [place], [address] Erythrocyte distribution width (RBC) [Ratio] 15.5 % High 11.6-14.[address] [facility] Comment on above: Performed By: #### L 500.2500, L100.0100 ####[facility] [address] [place], [address] Hematocrit (Bld) [Volume fraction] 25.9 % Low 40-[address] [facility] Comment on above: Performed By: #### L 500.2500, L100.0100 ####[facility] [address] [place], [address] Hemoglobin (Bld) [Mass/Vol] 8.8 g/dL Low 13.0-16.[address] [facility] Comment on above: Performed By: #### L 500.2500, L100.0100 ####[facility] [address] [place], [address] IG% 2.000 High 0.0-0.[address] [facility] Comment on above: Result Comment: IG% - Immature Granulocytes (promyelocytes, myelocytes andmetamyelocytes) > 1% indicates that a LEFT SHIFT is Present. Performed By: #### L 500.2500, L100.0100 ####[facility] [address] [place], [address] Lymphocytes/100 WBC (Bld) 23.3 % Normal 19-[address] [facility] Comment on above: Performed By: #### L 500.2500, L100.0100 ####[facility] [address] [place], [address] MCH (RBC) [Entitic mass] 30.3 pg Normal 27.0-32.[address] [facility] Comment on above: Performed By: #### L 500.2500, L100.0100 ####[facility] [address] [place], [address] MCHC (RBC) [Mass/Vol] 34.0 g/dL Normal 32-36 [facility] Comment on above: Performed By: #### L 500.2500, L100.0100 ####[facility] [address] [place], [address] MCV (RBC) [Entitic vol] 89.3 fL Normal 80-94 [facility] Comment on above: Performed By: #### L 500.2500, L100.0100 ####[facility] [address] [place], [address] Monocytes/100 WBC (Bld) 8.2 % Normal 0-10 [facility] Comment on above: Performed By: #### L 500.2500, L100.0100 ####[facility] [address] [place], [address] Neutrophils/100 WBC (Bld) 60.7 % Normal 47-[address] [facility] Comment on above: Performed By: #### L 500.2500, L100.0100 ####[facility] [address] [place], [address] Nucleated RBC (Bld) [#/Vol] 0 10*3/uL Normal 0-[address] [facility] Comment on above: Performed By: #### L 500.2500, L100.0100 ####[facility] [address] [place], [address] Platelet mean volume (Bld) [Entitic vol] 8.7 fL Normal 6.2-12.[address] [facility] Comment on above: Performed By: #### L 500.2500, L100.0100 ####[facility] [address] [place], [address] Platelets (Bld) [#/Vol] 157 10*3/uL Normal 150-[address] [facility] Comment on above: Performed By: #### L 500.2500, L100.0100 ####[facility] [address] [place], [address] RBC (Bld) [#/Vol] 2.90 10*6/uL Low 4.6-6.2 [facility] Comment on above: Performed By: #### L 500.2500, L100.0100 ####[facility] [address] [place], [address] RDW SD 50.3 fl High 35.1-43.[address] [facility] Comment on above: Performed By: #### L 500.2500, L100.0100 ####[facility] [address] [place], [address] WBC (Bld) [#/Vol] 4.5 10*3/uL Normal 4.4-11.0 [facility] Comment on above: Performed By: #### L 500.2500, L100.0100 ####[facility] [address] [place], [address] HH, Hemoglobin AND Hematocri ton 04-25-2024 Hematocrit (Bld) [Volume fraction] 25.8 % Low 40-[address] [facility] Comment on above: Performed By: #### L 100.0600 ####[facility] [address] [place], [address] Hemoglobin (Bld) [Mass/Vol] 8.9 g/dL Low 13.0-16.[address] [facility] Comment on above: Performed By: #### L 100.0600 ####[facility] [address] [place], [address] Abdomen/Pelvis WITH Contrast on 04-24-2024 Abdomen/Pelvis WITH Contrast Normal [facility] [id number] 04-24-2024 DIRECT JAIME NEG w/POLYSPECIFIC Normal NEGATIVE [facility] Comment on above: Performed By: #### B 56538-3 ####[facility] [address] [place], [address] Basic Metabolic Profile (BMP )on 04-24-2024 BUN/CRE 3.7 RATIO Low 10-[address] [facility] [address] [facility] Comment on above: Performed By: #### L 500.2500, L100.0100 ####[facility] [address] [place], [address] CA,Total 7.5 mg/dL Low 8.5-10.[address] [facility] Comment on above: Performed By: #### L 500.2500, L100.0100 ####[facility] [address] [place], [address] Chloride [Moles/Vol] 107 mmol/L Normal 98-107 [facility] Comment on above: Performed By: #### L 500.2500, L100.0100 ####[facility] [address] [place], [address] CO2 [Moles/Vol] 21.0 mmol/L Normal 21.0-32.[address] [facility] Comment on above: Performed By: #### L 500.2500, L100.0100 ####[facility] [address] [place], [address] Creatinine [Mass/Vol] 0.80 mg/dL Normal 0.70-1.30 [facility] Comment on above: Result Comment: The validity of the calculated GFR GFRAA in patients over70 years has not been determined. Clinical correlation isessential. Performed By: #### L 500.2500, L100.0100 ####[facility] [address] [place], [address] ECRCL 75.40 ml/min Normal [facility] Comment on above: Performed By: #### L 500.2500, L100.0100 ####[facility] [address] [place], [address] EST GFR - AA 125 mL/min Normal >[address] [facility] Comment on above: Result Comment: Afri can Mauritian GFR Calc Performed By: #### L 500.2500, L100.0100 ####[facility] [address] [place], [address] GAP 6 Normal 5-[address] [facility] Comment on above: Performed By: #### L 500.2500, L100.0100 ####[facility] [address] [place], [address] GFR/1.73 sq M.predicted among non-blacks MDRD (S/P/Bld) [Vol rate/Area] 104 mL/min/{1.73_m2} Normal >[address] [facility] Comment on above: Result Comment: Non- GFR Calc Performed By: #### L 500.2500, L100.0100 ####[facility] [address] [place], [address] Glucose [Mass/Vol] 88 mg/dL Normal 74-106 [facility] Comment on above: Performed By: #### L 500.2500, L100.0100 ####[facility] [address] [place], [address] Potassium [Moles/Vol] 3.6 mmol/L Normal 3.5-5.1 [facility] Comment on above: Performed By: #### L 500.2500, L100.0100 ####[facility] [address] [place], [address] Sodium [Moles/Vol] 134 mmol/L Low 136-145 [facility] Comment on above: Performed By: #### L 500.2500, L100.0100 ####[facility] [address] [place], [address] Urea nitrogen [Mass/Vol] 3 mg/dL Low 7-[address] [facility] Comment on above: Performed By: #### L 500.2500, L100.0100 ####[facility] [address] [place], [address] CBC W/Diff, Automatedon 04-15 0-2023 Absolute Lymph 1.00 X10 3/uL Normal 0.83-4.[address] [facility] Comment on above: Performed By: #### L 500.2500, L100.0100 ####[facility] [address] [place], [address] Absolute Neut 2.7 X10 3/uL Normal 2.0-7.[address] [facility] Comment on above: Performed By: #### L 500.2500, L100.0100 ####[facility] [address] [place], [address] Basophils/100 WBC (Bld) 0.2 % Normal 0-1 [facility] Comment on above: Performed By: #### L 500.2500, L100.0100 ####[facility] [address] [place], [address] Eosinophils/100 WBC (Bld) 4.3 % Normal 0-[address] [facility] Comment on above: Performed By: #### L 500.2500, L100.0100 ####[facility] [address] [place], [address] Erythrocyte distribution width (RBC) [Ratio] 15.7 % High 11.6-14.[address] [facility] Comment on above: Performed By: #### L 500.2500, L100.0100 ####[facility] [address] [place], [address] Hematocrit (Bld) [Volume fraction] 19.7 % Low 40-[address] [facility] Comment on above: Performed By: #### L 500.2500, L100.0100 ####[facility] [address] [place], [address] Hemoglobin (Bld) [Mass/Vol] 6.9 g/dL Low 13.0-16.[address] [facility] Comment on above: Performed By: #### L 500.2500, L100.0100 ####[facility] [address] [place], [address] IG% 1.200 High 0.0-0.[address] [facility] Comment on above: Result Comment: IG% - Immature Granulocytes (promyelocytes, myelocytes andmetamyelocytes) > 1% indicates that a LEFT SHIFT is Present. Performed By: #### L 500.2500, L100.0100 ####[facility] [address] [place], [address] Lymphocytes/100 WBC (Bld) 23.9 % Normal 19-[address] [facility] Comment on above: Performed By: #### L 500.2500, L100.0100 ####[facility] [address] [place], [address] MCH (RBC) [Entitic mass] 31.2 pg Normal 27.0-32.[address] [facility] Comment on above: Performed By: #### L 500.2500, L100.0100 ####[facility] [address] [place], [address] MCHC (RBC) [Mass/Vol] 35.0 g/dL Normal 32-36 [facility] Comment on above: Performed By: #### L 500.2500, L100.0100 ####[facility] [address] [place], [address] MCV (RBC) [Entitic vol] 89.1 fL Normal 80-94 [facility] Comment on above: Performed By: #### L 500.2500, L100.0100 ####[facility] [address] [place], [address] Monocytes/100 WBC (Bld) 6.7 % Normal 0-10 [facility] Comment on above: Performed By: #### L 500.2500, L100.0100 ####[facility] [address] [place], [address] Neutrophils/100 WBC (Bld) 63.7 % Normal 47-[address] [facility] Comment on above: Performed By: #### L 500.2500, L100.0100 ####[facility] [address] [place], [address] Nucleated RBC (Bld) [#/Vol] 0 10*3/uL Normal 0-[address] [facility] Comment on above: Performed By: #### L 500.2500, L100.0100 ####[facility] [address] [place], [address] Platelet mean volume (Bld) [Entitic vol] 9.4 fL Normal 6.2-12.[address] [facility] Comment on above: Performed By: #### L 500.2500, L100.0100 ####[facility] [address] [place], [address] Platelets (Bld) [#/Vol] 145 10*3/uL Low 150-[address] [facility] Comment on above: Performed By: #### L 500.2500, L100.0100 ####[facility] [address] [place], [address] RBC (Bld) [#/Vol] 2.21 10*6/uL Low 4.6-6.2 [facility] Comment on above: Performed By: #### L 500.2500, L100.0100 ####[facility] [address] [place], [address] RDW SD 50.0 fl High 35.1-43.[address] [facility] Comment on above: Performed By: #### L 500.2500, L100.0100 ####[facility] [address] [place], [address] WBC (Bld) [#/Vol] 4.2 10*3/uL Low 4.4-11.0 [facility] Comment on above: Performed By: #### L 500.2500, L100.0100 ####[facility] [address] [place], [address] LDHon 04-24-2024 LDH 166 U/L Normal 87-[address] [facility] Comment on above: Performed By: #### L 3100.1850, L3100.3425, L3410.2350, L500.3400, L504.2610 ####[facility] [address] [place], [address] Liver Profileon 04-24-2024 Albumin [Mass/Vol] 2.6 g/dL Low 3.2-5.0 [facility] Comment on above: Performed By: #### L 3100.1850, L3100.3425, L3410.2350, L500.3400, L504.2610 ####[facility] [address] [place], [address] ALK P 96 U/L Normal 45-[address] [facility] Comment on above: Performed By: #### L 3100.1850, L3100.3425, L3410.2350, L500.3400, L504.2610 ####[facility] [address] [place], [address] ALT [Catalytic activity/Vol] 13 U/L Low 16-[address] [facility] Comment on above: Performed By: #### L 3100.1850, L3100.3425, L3410.2350, L500.3400, L504.2610 ####[facility] [address] [place], [address] AST [Catalytic activity/Vol] 21 U/L Normal 15-[address] [facility] Comment on above: Performed By: #### L 3100.1850, L3100.3425, L3410.2350, L500.3400, L504.2610 ####[facility] [address] [place], [address] Bilirubin [Mass/Vol] 0.40 mg/dL Normal 0.20-1.00 [facility] Comment on above: Result Comment: For patients on eltrombopag therapy, use of Dimension Ecru TBIL is not recommended. Performed By: #### L 3100.1850, L3100.3425, L3410.2350, L500.3400, L504.2610 ####[facility] [address] [place], [address] Bilirubin.direct [Mass/Vol] 0.12 mg/dL Normal 0.00-0.[address] [facility] Comment on above: Performed By: #### L 3100.1850, L3100.3425, L3410.2350, L500.3400, L504.2610 ####[facility] [address] [place], [address] Globulin (S) [Mass/Vol] 3.2 g/dL Normal 2.2-4.2 [facility] Comment on above: Performed By: #### L 3100.1850, L3100.3425, L3410.2350, L500.3400, L504.2610 ####[facility] [address] [place], [address] T PROT 5.8 g/dL Low 6.4-8.[address] [facility] Comment on above: Performed By: #### L 3100.1850, L3100.3425, L3410.2350, L500.3400, L504.2610 ####[facility] [address] [place], [address] Basic Metabolic Profile (BMP )on 04-23-2024 BUN/CRE 6.8 RATIO Low 10-[address] [facility] Comment on above: Performed By: #### L 100.0100, L500.2500 ####[facility] [address] [place], [address] CA,Total 8.0 mg/dL Low 8.5-10.[address] [facility] Comment on above: Performed By: #### L 100.0100, L500.2500 ####[facility] [address] [place], [address] Chloride [Moles/Vol] 104 mmol/L Normal 98-107 [facility] Comment on above: Performed By: #### L 100.0100, L500.2500 ####[facility] [address] [place], [address] CO2 [Moles/Vol] 21.0 mmol/L Normal 21.0-32.[address] [facility] Comment on above: Performed By: #### L 100.0100, L500.2500 ####[facility] [address] [place], [address] Creatinine [Mass/Vol] 0.73 mg/dL Normal 0.70-1.30 [facility] Comment on above: Result Comment: The validity of the calculated GFR GFRAA in patients over70 years has not been determined. Clinical correlation isessential. Performed By: #### L 100.0100, L500.2500 ####[facility] [address] [place], [address] ECRCL 82.63 ml/min Normal [facility] Comment on above: Performed By: #### L 100.0100, L500.2500 ####[facility] [address] [place], [address] EST GFR - AA 139 mL/min Normal >[address] [facility] Comment on above: Result Comment: Afri can Mauritian GFR Calc Performed By: #### L 100.0100, L500.2500 ####[facility] [address] [place], [address] GAP 8 Normal 5-[address] [facility] Comment on above: Performed By: #### L 100.0100, L500.2500 ####[facility] [address] [place], [address] GFR/1.73 sq M.predicted among non-blacks MDRD (S/P/Bld) [Vol rate/Area] 115 mL/min/{1.73_m2} Normal >[address] [facility] Comment on above: Result Comment: Non- GFR Calc Performed By: #### L 100.0100, L500.2500 ####[facility] [address] [place], [address] Glucose [Mass/Vol] 91 mg/dL Normal 74-106 [facility] Comment on above: Performed By: #### L 100.0100, L500.2500 ####[facility] [address] [place], [address] Potassium [Moles/Vol] 3.3 mmol/L Low 3.5-5.1 [facility] Comment on above: Performed By: #### L 100.0100, L500.2500 ####[facility] [address] [place], [address] Sodium [Moles/Vol] 133 mmol/L Low 136-145 [facility] Comment on above: Performed By: #### L 100.0100, L500.2500 ####[facility] [address] [place], [address] Urea nitrogen [Mass/Vol] 5 mg/dL Low 7-[address] [facility] Comment on above: Performed By: #### L 100.0100, L500.2500 ####[facility] [address] [place], [address] BUN Normal 7-[address] [facility] Comment on above: Result Comment: DUPL ICATE ORDER Performed By: #### L 500.2500, L100.0100 ####[facility] [address] [place], [address] BUN/CRE Normal 10-[address] [facility] Comment on above: Result Comment: DUPL ICATE ORDER Performed By: #### L 500.2500, L100.0100 ####[facility] [address] [place], [address] CA,Total Normal 8.5-10.[address] [facility] Comment on above: Result Comment: DUPL ICATE ORDER Performed By: #### L 500.2500, L100.0100 ####[facility] [address] [place], [address] CL Normal 98-[address] [facility] Comment on above: Result Comment: DUPL ICATE ORDER Performed By: #### L 500.2500, L100.0100 ####[facility] [address] [place], [address] CO2 Normal 21.0-32.[address] [facility] Comment on above: Result Comment: DUPL ICATE ORDER Performed By: #### L 500.2500, L100.0100 ####[facility] [address] [place], [address] CREAT,SERUM Normal 0.70-1.[address] [facility] Comment on above: Result Comment: DUPL ICATE ORDER Performed By: #### L 500.2500, L100.0100 ####[facility] [address] [place], [address] EST GFR Normal >[address] [facility] Comment on above: Result Comment: DUPL ICATE ORDER Performed By: #### L 500.2500, L100.0100 ####[facility] [address] [place], [address] EST GFR - AA Normal >[address] [facility] Comment on above: Result Comment: DUPL ICATE ORDER Performed By: #### L 500.2500, L100.0100 ####[facility] [address] [place], [address] GAP Normal 5-[address] [facility] Comment on above: Result Comment: DUPL ICATE ORDER Performed By: #### L 500.2500, L100.0100 ####[facility] [address] [place], [address] GLU Normal 74-[address] [facility] Comment on above: Result Comment: DUPL ICATE ORDER Performed By: #### L 500.2500, L100.0100 ####[facility] [address] [place], [address] Potassium Normal 3.5-5.[address] [facility] Comment on above: Result Comment: DUPL ICATE ORDER Performed By: #### L 500.2500, L100.0100 ####[facility] [address] [place], [address] Basic Metabolic Profile (BMP) Normal 136-[address] [facility] Comment on above: Result Comment: DUPL ICATE ORDER Performed By: #### L 500.2500, L100.0100 ####[facility] [address] [place], [address] CBC W/Diff, Automatedon 08-0 PATH REV Reviewed Normal [facility] Comment on above: Result Comment: KELLE RE Normocytic anemia.Clinical correlation necessary. Wade Landry M.D. 04/23/24 AMENDED REPORT 04/23/24 0817 PATH REV previously reported as: January Performed By: #### L 500.4050, BTS, BRC, L100.0100 ####[facility] [address] [place], [address] Absolute Lymph 0.85 X10 3/uL Normal 0.83-4.[address] [facility] Comment on above: Performed By: #### L 100.0100, L500.2500 ####[facility] [address] [place], [address] Absolute Neut 2.2 X10 3/uL Normal 2.0-7.[address] [facility] Comment on above: Performed By: #### L 100.0100, L500.2500 ####[facility] [address] [place], [address] Basophils/100 WBC (Bld) 0.6 % Normal 0-1 [facility] Comment on above: Performed By: #### L 100.0100, L500.2500 ####[facility] [address] [place], [address] Eosinophils/100 WBC (Bld) 4.2 % Normal 0-[address] [facility] Comment on above: Performed By: #### L 100.0100, L500.2500 ####[facility] [address] [place], [address] Erythrocyte distribution width (RBC) [Ratio] 15.8 % High 11.6-14.[address] [facility] Comment on above: Performed By: #### L 100.0100, L500.2500 ####[facility] [address] [place], [address] Hematocrit (Bld) [Volume fraction] 20.3 % Low 40-[address] [facility] Comment on above: Performed By: #### L 100.0100, L500.2500 ####[facility] [address] [place], [address] Hemoglobin (Bld) [Mass/Vol] 7.1 g/dL Low 13.0-16.[address] [facility] Comment on above: Performed By: #### L 100.0100, L500.2500 ####[facility] [address] [place], [address] IG% 1.700 High 0.0-0.[address] [facility] Comment on above: Result Comment: IG% - Immature Granulocytes (promyelocytes, myelocytes andmetamyelocytes) > 1% indicates that a LEFT SHIFT is Present. Performed By: #### L 100.0100, L500.2500 ####[facility] [address] [place], [address] Lymphocytes/100 WBC (Bld) 23.9 % Normal 19-[address] [facility] Comment on above: Performed By: #### L 100.0100, L500.2500 ####[facility] [address] [place], [address] MCH (RBC) [Entitic mass] 30.7 pg Normal 27.0-32.[address] [facility] Comment on above: Performed By: #### L 100.0100, L500.2500 ####[facility] [address] [place], [address] MCHC (RBC) [Mass/Vol] 35.0 g/dL Normal 32-36 [facility] Comment on above: Performed By: #### L 100.0100, L500.2500 ####[facility] [address] [place], [address] MCV (RBC) [Entitic vol] 87.9 fL Normal 80-94 [facility] Comment on above: Performed By: #### L 100.0100, L500.2500 ####[facility] [address] [place], [address] Monocytes/100 WBC (Bld) 7.3 % Normal 0-10 [facility] Comment on above: Performed By: #### L 100.0100, L500.2500 ####[facility] [address] [place], [address] Neutrophils/100 WBC (Bld) 62.3 % Normal 47-[address] [facility] Comment on above: Performed By: #### L 100.0100, L500.2500 ####[facility] [address] [place], [address] Nucleated RBC (Bld) [#/Vol] 0 10*3/uL Normal 0-[address] [facility] Comment on above: Performed By: #### L 100.0100, L500.2500 ####[facility] [address] [place], [address] Platelet mean volume (Bld) [Entitic vol] 8.7 fL Normal 6.2-12.[address] [facility] Comment on above: Performed By: #### L 100.0100, L500.2500 ####[facility] [address] [place], [address] Platelets (Bld) [#/Vol] 133 10*3/uL Low 150-[address] [facility] Comment on above: Performed By: #### L 100.0100, L500.2500 ####[facility] [address] [place], [address] RBC (Bld) [#/Vol] 2.31 10*6/uL Low 4.6-6.2 [facility] Comment on above: Performed By: #### L 100.0100, L500.2500 ####[facility] [address] [place], [address] RDW SD 50.0 fl High 35.1-43.[address] [facility] Comment on above: Performed By: #### L 100.0100, L500.2500 ####[facility] [address] [place], [address] WBC (Bld) [#/Vol] 3.6 10*3/uL Low 4.4-11.0 [facility] Comment on above: Performed By: #### L 100.0100, L500.2500 ####[facility] [address] [place], [address] Absolute Neut Normal 2.0-7.[address] [facility] Comment on above: Result Comment: DUPL ICATE ORDERS Performed By: #### L 500.2500, L100.0100 ####[facility] [address] [place], [address] HCT Normal 40-[address] [facility] Comment on above: Result Comment: DUPL ICATE ORDERS Performed By: #### L 500.2500, L100.0100 ####[facility] [address] [place], [address] HGB Normal 13.0-16.[address] [facility] Comment on above: Result Comment: DUPL ICATE ORDERS Performed By: #### L 500.2500, L100.0100 ####[facility] [address] [place], [address] MCH Normal 27.0-32.[address] [facility] Comment on above: Result Comment: DUPL ICATE ORDERS Performed By: #### L 500.2500, L100.0100 ####[facility] [address] [place], [address] MCHC Normal 32-[address] [facility] Comment on above: Result Comment: DUPL ICATE ORDERS Performed By: #### L 500.2500, L100.0100 ####[facility] [address] [place], [address] MCV Normal 80-[address] [facility] Comment on above: Result Comment: DUPL ICATE ORDERS Performed By: #### L 500.2500, L100.0100 ####[facility] [address] [place], [address] NEUT% Normal 47-[address] [facility] Comment on above: Result Comment: DUPL ICATE ORDERS Performed By: #### L 500.2500, L100.0100 ####[facility] [address] [place], [address] PLT Normal 150-[address] [facility] Comment on above: Result Comment: DUPL ICATE ORDERS Performed By: #### L 500.2500, L100.0100 ####[facility] [address] [place], [address] RBC Normal 4.6-6.[address] [facility] Comment on above: Result Comment: DUPL ICATE ORDERS Performed By: #### L 500.2500, L100.0100 ####[facility] [address] [place], [address] RDW CV Normal 11.6-14.[address] [facility] Comment on above: Result Comment: DUPL ICATE ORDERS Performed By: #### L 500.2500, L100.0100 ####[facility] [address] [place], [address] RDW SD Normal 35.1-43.[address] [facility] Comment on above: Result Comment: DUPL ICATE ORDERS Performed By: #### L 500.2500, L100.0100 ####[facility] [address] [place], [address] WBC Normal 4.4-11.[address] [facility] Comment on above: Result Comment: DUPL ICATE ORDERS Performed By: #### L 500.2500, L100.0100 ####[facility] [address] [place], [address] Colonoscopy Reporton 024 Colonoscopy Report Normal [facility] EGD Reporton 04-23-2024 EGD Report Normal [facility] Ferritinon 04-23-2024 Ferritin [Mass/Vol] 1236 ng/mL High 26-388 [facility] Comment on above: Performed By: #### L 503.6030, L503.6550 ####[facility] [address] [place], [address] Ferritin [Mass/Vol] 1236 ng/mL High 26-388 [facility] Comment on above: Order Comment: PER Jass VELÁSQUEZ RN, WANTED TESTS RAN ON SPECIMEN FROM 04/21.TESTING WAS PERFORMED ON CORRECT SPECIMEN BUT COLLECTIONDATE WAS NOT CORRECTED. REQUESTED COLLECTION DATE BEFIXED. WILL CANCEL AND REORDER TO FIX COLLECTION DATE ISSUE. Result Comment: PER GUERITA MCFADDEN DR WANTED TESTS RAN ON SPECIMEN FROM 04/21.TESTING WAS PERFORMED ON CORRECT SPECIMEN BUT COLLECTIONDATE WAS NOT CORRECTED. REQUESTED COLLECTION DATE BEFIXED. WILL CANCEL AND REORDER TO FIX COLLECTION DATE ISSUE. Performed By: #### L 503.6550, L503.6030 ####[facility] [address] [place], [address] H Pylori (initial)on 024 H Pylori (initial) Normal [facility] Comment on above: Performed By: #### P H.PYLORI ####[facility] [address] [place], [address] HH, Hemoglobin AND Hematocri ton 04-23-2024 Hematocrit (Bld) [Volume fraction] 20.8 % Low 40-[address] [facility] Comment on above: Performed By: #### L 100.0600 ####[facility] [address] [place], [address] Hemoglobin (Bld) [Mass/Vol] 7.1 g/dL Low 13.0-16.[address] [facility] Comment on above: Performed By: #### L 100.0600 ####[facility] [address] [place], [address] Iron+Iron Binding Capacityon 04-23-2024 Iron [Mass/Vol] 222 ug/dL High 65-[address] [facility] Comment on above: Performed By: #### L 503.6030, L503.6550 ####[facility] [address] [place], [address] IRON SATURATION 94.9 High 15.0-55.[address] [facility] Comment on above: Performed By: #### L 503.6030, L503.6550 ####[facility] [address] [place], [address] TIBC 234 ug/dL Low 250-[address] [facility] Comment on above: Performed By: #### L 503.6030, L503.6550 ####[facility] [address] [place], [address] Iron [Mass/Vol] 222 ug/dL High 65-[address] [facility] Comment on above: Result Comment: PER COOK FROZEN DESSERTDR WANTED TESTS RAN ON SPECIMEN FROM 04/21.TESTING WAS PERFORMED ON CORRECT SPECIMEN BUT COLLECTIONDATE WAS NOT CORRECTED. REQUESTED COLLECTION DATE BEFIXED. WILL CANCEL AND REORDER TO FIX COLLECTION DATE ISSUE. Performed By: #### L 503.6550, L503.6030 ####[facility] [address] [place], [address] IRON SATURATION 94.9 High 15.0-55.[address] [facility] Comment on above: Result Comment: PER COOK FROZEN DESSERT, DR WANTED TESTS RAN ON SPECIMEN FROM 04/21.TESTING WAS PERFORMED ON CORRECT SPECIMEN BUT COLLECTIONDATE WAS NOT CORRECTED. REQUESTED COLLECTION DATE BEFIXED. WILL CANCEL AND REORDER TO FIX COLLECTION DATE ISSUE. Performed By: #### L 503.6550, L503.6030 ####[facility] [address] [place], [address] TIBC 234 ug/dL Low 250-[address] [facility] Comment on above: Result Comment: PER COOK FROZEN DESSERT, WANTED TESTS RAN ON SPECIMEN FROM 04/21.TESTING WAS PERFORMED ON CORRECT SPECIMEN BUT COLLECTIONDATE WAS NOT CORRECTED. REQUESTED COLLECTION DATE BEFIXED. WILL CANCEL AND REORDER TO FIX COLLECTION DATE ISSUE. Performed By: #### L 503.6550, L503.6030 ####[facility] [address] [place], [address] MR/POSTOP.ANEon 04-23-2024 MR/POSTOP.ANE Normal [facility] MR/KVVGKUKF6uo 04-23-2024 MR/POSTOPAN2 Normal [facility] Special Stain Group Ion 08- Special Stain Group I Normal [facility] Comment on above: Performed By: #### P SSI ####[facility] [address] [place], [address] 12 Lead EKGon 04-22-2024 12 Lead EKG Normal [facility] Basic Metabolic Profile (BMP )on 04-22-2024 BUN/CRE 10.1 RATIO Normal 10-[address] [facility] Comment on above: Performed By: #### L 500.2500 ####[facility] [address] [place], [address] CA,Total 7.8 mg/dL Low 8.5-10.[address] [facility] Comment on above: Performed By: #### L 500.2500 ####[facility] [address] [place], [address] Chloride [Moles/Vol] 103 mmol/L Normal 98-107 [facility] Comment on above: Performed By: #### L 500.2500 ####[facility] [address] [place], [address] CO2 [Moles/Vol] 20.0 mmol/L Low 21.0-32.[address] [facility] Comment on above: Performed By: #### L 500.2500 ####[facility] [address] [place], [address] Creatinine [Mass/Vol] 0.79 mg/dL Normal 0.70-1.30 [facility] Comment on above: Result Comment: The validity of the calculated GFR GFRAA in patients over70 years has not been determined. Clinical correlation isessential. Performed By: #### L 500.2500 ####[facility] [address] [place], [address] ECRCL 76.35 ml/min Normal [facility] Comment on above: Performed By: #### L 500.2500 ####[facility] [address] [place], [address] EST GFR - AA 127 mL/min Normal >[address] [facility] Comment on above: Result Comment: Afri can Mauritian GFR Calc Performed By: #### L 500.2500 ####[facility] [address] [place], [address] GAP 8 Normal 5-[address] [facility] Comment on above: Performed By: #### L 500.2500 ####[facility] [address] [place], [address] GFR/1.73 sq M.predicted among non-blacks MDRD (S/P/Bld) [Vol rate/Area] 105 mL/min/{1.73_m2} Normal >[address] [facility] Comment on above: Result Comment: Non- GFR Calc Performed By: #### L 500.2500 ####[facility] [address] [place], [address] Glucose [Mass/Vol] 101 mg/dL Normal 74-106 [facility] Comment on above: Result Comment: Fast ing Glucose result from 100 to 125 mg/dLsuggests IMPAIRED HOMEOSTASIS per A.D.A. criteria. Performed By: #### L 500.2500 ####[facility] [address] [place], [address] Potassium [Moles/Vol] 3.6 mmol/L Normal 3.5-5.1 [facility] Comment on above: Performed By: #### L 500.2500 ####[facility] [address] [place], [address] Sodium [Moles/Vol] 131 mmol/L Low 136-145 [facility] Comment on above: Performed By: #### L 500.2500 ####[facility] [address] [place], [address] Urea nitrogen [Mass/Vol] 8 mg/dL Normal 7-[address] [facility] Comment on above: Performed By: #### L 500.2500 ####[facility] [address] [place], [address] CBC W/Diff, Automatedon 08-0 8-2024 Absolute Lymph 0.75 X10 3/uL Low 0.83-4.[address] [facility] Comment on above: Performed By: #### L 100.0100 ####[facility] [address] [place], [address] Absolute Neut 2.4 X10 3/uL Normal 2.0-7.[address] [facility] Comment on above: Performed By: #### L 100.0100 ####[facility] [address] [place], [address] Basophils/100 WBC (Bld) 0.6 % Normal 0-1 [facility] Comment on above: Performed By: #### L 100.0100 ####[facility] [address] [place], [address] Eosinophils/100 WBC (Bld) 3.6 % Normal 0-[address] [facility] Comment on above: Performed By: #### L 100.0100 ####[facility] [address] [place], [address] Erythrocyte distribution width (RBC) [Ratio] 14.9 % High 11.6-14.[address] [facility] Comment on above: Performed By: #### L 100.0100 ####[facility] [address] [place], [address] Hematocrit (Bld) [Volume fraction] 20.4 % Low 40-[address] [facility] Comment on above: Performed By: #### L 100.0100 ####[facility] [address] [place], [address] Hemoglobin (Bld) [Mass/Vol] 7.2 g/dL Low 13.0-16.[address] [facility] Comment on above: Performed By: #### L 100.0100 ####[facility] [address] [place], [address] IG% 1.700 High 0.0-0.[address] [facility] Comment on above: Result Comment: IG% - Immature Granulocytes (promyelocytes, myelocytes andmetamyelocytes) > 1% indicates that a LEFT SHIFT is Present. Performed By: #### L 100.0100 ####[facility] [address] [place], [address] Lymphocytes/100 WBC (Bld) 20.7 % Normal 19-[address] [facility] Comment on above: Performed By: #### L 100.0100 ####[facility] [address] [place], [address] MCH (RBC) [Entitic mass] 30.8 pg Normal 27.0-32.[address] [facility] Comment on above: Performed By: #### L 100.0100 ####[facility] [address] [place], [address] MCHC (RBC) [Mass/Vol] 35.3 g/dL Normal 32-36 [facility] Comment on above: Performed By: #### L 100.0100 ####[facility] [address] [place], [address] MCV (RBC) [Entitic vol] 87.2 fL Normal 80-94 [facility] Comment on above: Performed By: #### L 100.0100 ####[facility] [address] [place], [address] Monocytes/100 WBC (Bld) 7.4 % Normal 0-10 [facility] Comment on above: Performed By: #### L 100.0100 ####[facility] [address] [place], [address] Neutrophils/100 WBC (Bld) 66.0 % Normal 47-[address] [facility] Comment on above: Performed By: #### L 100.0100 ####[facility] [address] [place], [address] Nucleated RBC (Bld) [#/Vol] 0 10*3/uL Normal 0-[address] [facility] Comment on above: Performed By: #### L 100.0100 ####[facility] [address] [place], [address] Platelet mean volume (Bld) [Entitic vol] 9.3 fL Normal 6.2-12.[address] [facility] Comment on above: Performed By: #### L 100.0100 ####[facility] [address] [place], [address] Platelets (Bld) [#/Vol] 138 10*3/uL Low 150-[address] [facility] Comment on above: Performed By: #### L 100.0100 ####[facility] [address] [place], [address] RBC (Bld) [#/Vol] 2.34 10*6/uL Low 4.6-6.2 [facility] Comment on above: Performed By: #### L 100.0100 ####[facility] [address] [place], [address] RDW SD 47.1 fl High 35.1-43.[address] [facility] Comment on above: Performed By: #### L 100.0100 ####[facility] [address] [place], [address] WBC (Bld) [#/Vol] 3.6 10*3/uL Low 4.4-11.0 [facility] Comment on above: Performed By: #### L 100.0100 ####[facility] [address] [place], [address] HH, Hemoglobin AND Hematocri ton 04-22-2024 Hematocrit (Bld) [Volume fraction] 20.2 % Low 40-[address] [facility] Comment on above: Performed By: #### L 100.0600 ####[facility] [address] [place], [address] Hemoglobin (Bld) [Mass/Vol] 7.2 g/dL Low 13.0-16.[address] [facility] Comment on above: Performed By: #### L 100.0600 ####[facility] [address] [place], [address] Partial Thromboplast Timeon 04-22-2024 aPTT Coag (Bld) [Time] 37.8 s High 24.1-36.2 [facility] Comment on above: Performed By: #### L 300.4310, L300.3900 ####[facility] [address] [place], [address] Prothrombin Time w/INRon INR Coag (PPP) [Relative time] 1.1 {INR} Normal [facility] Comment on above: Performed By: #### L 300.4310, L300.3900 ####[facility] [address] [place], [address] PT Coag (PPP) [Time] 13.9 s Normal 11.7-14.9 [facility] Comment on above: Performed By: #### L 300.4310, L300.3900 ####[facility] [address] [place], [address] Abdomen/Pelvis W IV Cont ONL Yon 04-21-2024 Abdomen/Pelvis W IV Cont ONLY Normal [facility] BRCon 04-21-2024 RC Normal [facility] Comment on above: Result Comment: [id number] AN RC TRANSFUSED 04/24/24 0846 Performed By: #### B RC ####[facility] [address] [place], [address] Result Comment: [id number] AP RC TRANSFUSED 04/21/24 [id number] AP RC TRANSFUSED 04/21/24 1504 Performed By: #### L 500.4050, BTS, BRC, L100.0100 ####[facility] [address] [place], [address] CBC W/Diff, Automatedon 08- PATH REV Reviewed Normal [facility] Comment on above: Result Comment: KELLE RE Normocytic anemia.Clinical correlation necessary.Wade Landry M.D. 04/21/24 AMENDED REPORT 04/21/24 1337 PATH REV previously reported as: January frandy Performed By: #### L 501.9910, L503.0105, L506.1000, L500.4100, L3890.6300, L501.9520, L100.0100 ####[facility] [address] [place], [address] Chest 1 View (Portable)on Chest 1 View (Portable) Normal [facility] Comprehensive Metabolic Prof ilon 04-21-2024 Albumin [Mass/Vol] 3.4 g/dL Normal 3.2-5.0 [facility] Comment on above: Performed By: #### L 500.4050, BTS, BR, L100.0100 ####[facility] [address] [place], [address] Albumin/Globulin [Mass ratio] 0.8 {ratio} Low 0.9-2.[address] [facility] Comment on above: Performed By: #### L 500.4050, BTS, BR, L100.0100 ####[facility] [address] [place], [address] ALK P 143 U/L High 45-[address] [facility] Comment on above: Performed By: #### L 500.4050, BTS, BR, L100.0100 ####[facility] [address] [place], [address] ALT [Catalytic activity/Vol] 13 U/L Low 16-[address] [facility] Comment on above: Performed By: #### L 500.4050, [facility], [facility], L100.0100 ####[facility] [address] [place], [address] AST [Catalytic activity/Vol] 23 U/L Normal 15-[address] [facility] Comment on above: Performed By: #### L 500.4050, BT, BRC, L100.0100 ####[facility] [address] [place], [address] Bilirubin [Mass/Vol] 0.60 mg/dL Normal 0.20-1.00 [facility] Comment on above: Result Comment: For patients on eltrombopag therapy, use of Dimension Ecru TBIL is not recommended. Performed By: #### L 500.4050, BTS, BRC, L100.0100 ####[facility] [address] [place], [address] BUN/CRE 10.2 RATIO Normal 10-[address] [facility] Comment on above: Performed By: #### L 500.4050, BT, BRC, L100.0100 ####[facility] [address] [place], [address] CA,Total 8.6 mg/dL Normal 8.5-10.[address] [facility] Comment on above: Performed By: #### L 500.4050, BTS, BRC, L100.0100 ####[facility] [address] [place], [address] Chloride [Moles/Vol] 95 mmol/L Low 98-107 [facility] Comment on above: Performed By: #### L 500.4050, BTS, BR, L100.0100 ####[facility] [address] [place], [address] CO2 [Moles/Vol] 19.0 mmol/L Low 21.0-32.[address] [facility] Comment on above: Performed By: #### L 500.4050, BTS, BRC, L100.0100 ####[facility] [address] [place], [address] Creatinine [Mass/Vol] 0.98 mg/dL Normal 0.70-1.30 [facility] Comment on above: Result Comment: The validity of the calculated GFR GFRAA in patients over70 years has not been determined. Clinical correlation isessential. Performed By: #### L 500.4050, BTS, BRC, L100.0100 ####[facility] [address] [place], [address] ECRCL 77.22 ml/min Normal [facility] Comment on above: Performed By: #### L 500.4050, BTS, BRC, L100.0100 ####[facility] [address] [place], [address] EST GFR - AA 100 mL/min Normal >[address] [facility] Comment on above: Result Comment: Afri can Mauritian GFR Calc Performed By: #### L 500.4050, BTS, BRC, L100.0100 ####[facility] [address] [place], [address] GAP 12 Normal 5-[address] [facility] Comment on above: Performed By: #### L 500.4050, BTS, BRC, L100.0100 ####[facility] [address] [place], [address] GFR/1.73 sq M.predicted among non-blacks MDRD (S/P/Bld) [Vol rate/Area] 82 mL/min/{1.73_m2} Normal >[address] [facility] Comment on above: Result Comment: Non- GFR Calc Performed By: #### L 500.4050, BTS, BRC, L100.0100 ####[facility] [address] [place], [address] Globulin (S) [Mass/Vol] 4.5 g/dL High 2.2-4.2 [facility] Comment on above: Performed By: #### L 500.4050, BTS, BRC, L100.0100 ####[facility] [address] [place], [address] Glucose [Mass/Vol] 117 mg/dL High 74-106 [facility] Comment on above: Result Comment: Fast ing Glucose result from 100 to 125 mg/dLsuggests IMPAIRED HOMEOSTASIS per A.D.A. criteria. Performed By: #### L 500.4050, BTS, BRC, L100.0100 ####[facility] [address] [place], [address] Potassium [Moles/Vol] 3.5 mmol/L Normal 3.5-5.1 [facility] Comment on above: Performed By: #### L 500.4050, BTS, BRC, L100.0100 ####[facility] [address] [place], [address] Sodium [Moles/Vol] 126 mmol/L Low 136-145 [facility] Comment on above: Performed By: #### L 500.4050, BTS, BRC, L100.0100 ####[facility] [address] [place], [address] T PROT 7.9 g/dL Normal 6.4-8.[address] [facility] Comment on above: Performed By: #### L 500.4050, BTS, BRC, L100.0100 ####[facility] [address] [place], [address] Urea nitrogen [Mass/Vol] 10 mg/dL Normal 7-[address] [facility] Comment on above: Performed By: #### L 500.4050, BTS, BRC, L100.0100 ####[facility] [address] [place], [address] Consultation - Surgicalon Consultation - Surgical Normal [facility] Emergency Department Summary on 04-21-2024 Emergency Department Summary Normal [facility] H AND P Exam - Hospitaliston 04-21-2024 H&P Exam - Hospitalist Normal [facility] Type AND Screenon 04-21-2024 ABO and Rh group Nom (Bld) Blood group A Rh(D) positive Normal [facility] Comment on above: Order Comment: Has p t arrived? YCMV NEG? NNumber of units to transfuse: 2Is this product for anemia associated withhemoglobinopathy? NIs pt's Hgb is = to 7.0 mg/dl or Hct </= 21%? YIs this for PREOP anemia correction prior to anesthesia? NReason for Ordering Blood: ChronicIs there symptomatic anemia? Mark the blood/blood products to be transfused? YIs the patient having/had surgery? Courtney Menendez Performed By: #### L 500.4050, BTS, BRC, L100.0100 ####[facility] [address] [place], [address] Hepatitis C Antibodyon 04-20 Hepatitis C AB Non-Reactive Normal Nonreactive [facility] Comment on above: Result Comment: Non Reactive: < 0.8 Equivocal: >/= 0.8 to < 1.0 Reactive: >/= 1.0The CDC requires that a reactive/equivocal HCV antibodyresult be sent out for confirmation. HCV Quant by PCRtesting. Performed By: #### L 501.9910, L503.0105, L506.1000, L500.4100, L3890.6300, L501.9520, L100.0100 ####[facility] [address] [place], [address] Lipid Profileon 2024 Cholesterol [Mass/Vol] 103 mg/dL Normal 200 [facility] Comment on above: Result Comment: <200 mg/dL Desirable 200-240 mg/dL Borderline >240 mg/dL High Risk Performed By: #### L 501.9910, L503.0105, L506.1000, L500.4100, L3890.6300, L501.9520, L100.0100 ####[facility] [address] [place], [address] Cholesterol in HDL [Mass/Vol] 46 mg/dL Normal [facility] Comment on above: Result Comment: The drugs N-Acetylcysteine and Metamizole may falselydepress this assay. Reference Range HDL <40 mg/dL Low HDL Cholesterol HDL >or= 60 mg/dL High HDL Cholesterol Performed By: #### L 501.9910, L503.0105, L506.1000, L500.4100, L3890.6300, L501.9520, L100.0100 ####[facility] [address] [place], [address] Cholesterol in LDL [Mass/Vol] 29 mg/dL Normal 0-[address] [facility] Comment on above: Performed By: #### L 501.9910, L503.0105, L506.1000, L500.4100, L3890.6300, L501.9520, L100.0100 ####[facility] [address] [place], [address] Cholesterol in VLDL [Mass/Vol] 28 mg/dL Normal 5-[address] [facility] Comment on above: Performed By: #### L 501.9910, L503.0105, L506.1000, L500.4100, L3890.6300, L501.9520, L100.0100 ####[facility] [address] [place], [address] Triglyceride [Mass/Vol] 142 mg/dL Normal [facility] [facility] Comment on above: Result Comment: The drugs N-Acetylcysteine and Metamizole may falselydepress this assay.Serum Triglycerides Reference Interval Normal <150 mg/dL Borderline high 150 - 199 mg/dL High 200 - 499 mg/dL Very High > or = 500 mg/dL Performed By: #### L 501.9910, L503.0105, L506.1000, L500.4100, L3890.6300, L501.9520, L100.0100 ####[facility] [address] [place], [address] PSA,Total - Annual Screenon 2024 PSA,TOT SCREEN 0.35 ng/mL Normal 0.00-4.[address] [facility] Comment on above: Result Comment: This test was performed using the TPSA assay method [facility]. Values obtained with differentassay methods cannot be used interchangably.When changing PSA assays in the course of monitoring apatient, additional sequential testing should be carriedout to confirm baseline values. Performed By: #### L 501.9910, L503.0105, L506.1000, L500.4100, L3890.6300, L501.9520, L100.0100 ####[facility] [address] [place], [address] Thyroid Stim Hormone (TSH)on 2024 TSH 3.09 uIU/mL Normal 0.358-3.[address] [facility] Comment on above: Performed By: #### L 501.9910, L503.0105, L506.1000, L500.4100, L3890.6300, L501.9520, L100.0100 ####[facility] [address] [place], [place], [id number] Vitamin B12on 2024 Cobalamin (Vitamin B12) [Mass/Vol] 513 pg/mL Normal 211-[address] [facility] Comment on above: Performed By: #### L 501.9910, L503.0105, L506.1000, L500.4100, L3890.6300, L501.9520, L100.0100 ####[facility] [address] [place], [place], [id number] Vitamin D,25 Hydroxyon 04-20 Vitamin D 25-OH 21.0 ng/mL Normal [facility] Comment on above: Result Comment: Anita min D 25(OH) Status Range Deficiency <20 ng/mL (50nmol/L) Insufficiency 20 - 30 ng/mL (50 - 75 nmol/L) Sufficiency 30 - 100 ng/mL (75 - 250 nmol/L) Toxicity >100 ng/mL (>250 nmol/L) Performed By: #### L 501.9910, L503.0105, L506.1000, L500.4100, L3890.6300, L501.9520, L100.0100 ####[facility] [address] [place], [place], [id number] Absolute lymphocyte countOrd ered By: Amaris Marks on 08-21-2023 Lymphocytes Auto (Unsp spec) [#/Vol] 0.58 10*3/uL 0.83-4.[address] [facility] Basophil percentageOrdered B y: Amaris Marks on 08-21-2023 Basophils/100 WBC (Bld) 0.5 % 0-1 [facility] Chloride [Moles/Vol] 106 mmol/L 98-107 [facility] Eosinophils/100 WBC (Bld) 4.4 % 0-[address] [facility] Glucose [Mass/Vol] 108 mg/dL 74-106 [facility] Comment on above: Fasting Glucose resu lt from 100 to 125 mg/dL suggests IMPAIRED HOMEOSTASIS per A.D.A. criteria. Neutrophils (Bld) [#/Vol] 2.6 10*3/uL 2.0-7.[address] [facility] Neutrophils/100 WBC (Bld) 66.7 % 47-[address] [facility] Potassium [Moles/Vol] 3.7 mmol/L 3.5-5.1 [facility] Sodium [Moles/Vol] 134 mmol/L 136-145 [facility] WBC (Bld) [#/Vol] 3.9 10*3/uL 4.4-11.0 [facility] Blood erythrocytes count (nu mber/volume)Ordered By: Amaris Marks on 08-21-2023 RBC (Bld) [#/Vol] 2.31 10*6/uL 4.6-6.2 [facility] Blood hemoglobin measurement (mass/volume)Ordered By: Amaris Marks on 08-21-2023 Hemoglobin (Bld) [Mass/Vol] 7.4 g/dL 13.0-16.[address] [facility] Blood lymphocytes/100 leukoc ytesOrdered By: Amaris Marks on 08-21-2023 Lymphocytes/100 WBC (Bld) 15.0 % 19-[address] [facility] Blood manual differential co mment interpretation (narrative result)Ordered By: Amaris Marks on 08-21-2023 Manual differential comment Mars (Bld) [Interp] SCANNED [facility] Blood monocytes/100 leukocyt esOrdered By: Amaris Marks on 08-21-2023 Monocytes/100 WBC (Bld) 12.4 % 0-10 [facility] Blood platelet mean volumeOr dered By: Amaris Marks on 08-21-2023 Platelet mean volume (Bld) [Entitic vol] 9.6 fL 6.2-12.[address] [facility] Determination of erythrocyte mean corpuscular volume (MCV)Ordered By: Amaris Marks on 08-21-2023 MCV (RBC) [Entitic vol] 94.8 fL 80-94 [facility] Hematocrit Auto (Bld) [Volum e fraction]Ordered By: Amaris Marks on 08-21-2023 Hematocrit (Bld) [Volume fraction] 21.9 % 40-[address] [facility] Laboratory - Chemistry and C hemistry - challengeOrdered By: Amaris Marks on 08-21-2023 CO2 [Moles/Vol] 19.0 mmol/L 21.0-32.[address] [facility] Urea nitrogen/Creatinine [Mass ratio] 11.3 mg/mg 10-[address] [facility] Laboratory - Hematology and Cell countsOrdered By: Amaris Marks on 08-21-2023 Erythrocyte distribution width (RBC) [Entitic vol] 45.3 fL 35.1-43.[address] [facility] Erythrocyte distribution width (RBC) [Ratio] 13.2 % 11.6-14.[address] [facility] Immature granulocytes/100 WBC (Bld) 1.000 % 0.0-0.[address] [facility] Comment on above: IG% - Immature Granu locytes (promyelocytes, myelocytes and metamyelocytes) > 1% indicates that a LEFT SHIFT is Present. MCH (RBC) [Entitic mass] 32.0 pg 27.0-32.[address] [facility] Nucleated RBC/100 WBC (Bld) [Ratio] 0 % 0-[address] [facility] MCHC Auto (RBC) [Mass/Vol]Or dered By: Amaris Marks on 08-21-2023 MCHC (RBC) [Mass/Vol] 33.8 g/dL 32-36 [facility] No Panel InformationOrdered By: Amaris Marks on 08-21-2023 Estimated Creatinine Clearance Calc 98.85 ml/min [facility] Estimated GFR (MDRD) Amer 127 mL/min >[address] [facility] Comment on above: GFR Calc Estimated GFR (MDRD) Non-Af Amer 105 mL/min >[address] [facility] Comment on above: Non- GFR Calc Platelets bldOrdered By: Jeni Marks on 08-21-2023 Platelets (Bld) [#/Vol] 140 10*3/uL 150-[address] [facility] Review by pathologistOrdered By: Amaris Marks on 08-21-2023 Pathologist review Mars (Unsp spec) [Interp] May foll [facility] Serum or plasma calcium ed urement (mass/volume)Ordered By: Amaris Marks on 08-21-2023 Calcium [Mass/Vol] 8.5 mg/dL 8.5-10.1 [facility] Serum or plasma creatinine m easurement (mass/volume)Ordered By: Amaris Marks on 08-21-2023 Creatinine [Mass/Vol] 0.80 mg/dL 0.70-1.30 [facility] Comment on above: The validity of the calculated GFR & GFRAA in patients over 70 years has not been determined. Clinical correlation is essential. Serum or plasma urea nitroge n measurement (mass/volume)Ordered By: Amaris Marks on 08-21-2023 Urea nitrogen [Mass/Vol] 9 mg/dL 7-[address] [facility] Thin prep Papanicolaou smear with manual screeningOrdered By: Amaris Marks on 08-21-2023 Thin prep Papanicolaou smear with manual screening 9 5-[address] [facility] Blood platelet adequacy dete ction by light microscopyOrdered By: Amaris Marks on 08-19-2023 Platelets LM Ql (Bld) SLT DEC ADEQ [facility] Absolute lymphocyte countOrd ered By: Tamir Allan on 08-16-2023 Lymphocytes Auto (Unsp spec) [#/Vol] 1.20 10*3/uL 0.83-4.[address] [facility] Basophil percentageOrdered B y: Tamir Allan on 08-16-2023 Basophils/100 WBC (Bld) 0.9 % 0-1 [facility] Chloride [Moles/Vol] 92 mmol/L 98-107 [facility] Eosinophils/100 WBC (Bld) 3.4 % 0-[address] [facility] Glucose [Mass/Vol] 143 mg/dL 74-106 [facility] Comment on above: Fasting Glucose resu lt greater than or equal to 126 mg/dL suggests DIABETES MELLITUS per A.D.A. criteria. Neutrophils (Bld) [#/Vol] 2.4 10*3/uL 2.0-7.[address] [facility] Neutrophils/100 WBC (Bld) 54.0 % 47-[address] [facility] Potassium [Moles/Vol] 3.4 mmol/L 3.5-5.1 [facility] Sodium [Moles/Vol] 126 mmol/L 136-145 [facility] WBC (Bld) [#/Vol] 4.4 10*3/uL 4.4-11.0 [facility] Basophil percentageOrdered B y: Patrice Watkins on 08-16-2023 Bilirubin [Mass/Vol] 0.50 mg/dL 0.20-1.00 [facility] Comment on above: For patients on eltr ombopag therapy, use of Dimension Ecru TBIL is not recommended. Protein [Mass/Vol] 6.3 g/dL 6.4-8.2 [facility] Blood erythrocytes count (nu mber/volume)Ordered By: Tamir Allan on 08-16-2023 RBC (Bld) [#/Vol] 3.08 10*6/uL 4.6-6.2 [facility] Blood hemoglobin measurement (mass/volume)Ordered By: Tamir Allan on 08-16-2023 Hemoglobin (Bld) [Mass/Vol] 10.1 g/dL 13.0-16.[address] [facility] Blood lymphocytes/100 leukoc ytesOrdered By: Tamir Allan on 08-16-2023 Lymphocytes/100 WBC (Bld) 27.6 % 19-[address] [facility] Blood monocytes/100 leukocyt esOrdered By: Tamir Allan on 08-16-2023 Monocytes/100 WBC (Bld) 13.6 % 0-10 [facility] Blood platelet mean volumeOr dered By: Tamir Allan on 08-16-2023 Platelet mean volume (Bld) [Entitic vol] 8.8 fL 6.2-12.[address] [facility] Determination of erythrocyte mean corpuscular volume (MCV)Ordered By: Tamir Allan on 08-16-2023 MCV (RBC) [Entitic vol] 89.3 fL 80-94 [facility] Hematocrit Auto (Bld) [Volum e fraction]Ordered By: Tamir Allan on 08-16-2023 Hematocrit (Bld) [Volume fraction] 27.5 % 40-[address] [facility] Laboratory - Chemistry and C hemistry - challengeOrdered By: Patrice Watkins on 08-16-2023 ALP [Catalytic activity/Vol] 84 U/L 45-[address] [facility] ALT [Catalytic activity/Vol] 22 U/L 16-[address] [facility] Globulin (S) [Mass/Vol] 3.0 g/dL 2.2-4.2 [facility] Laboratory - Chemistry and C hemistry - challengeOrdered By: Tamir Allan on 08-16-2023 CO2 [Moles/Vol] 25.0 mmol/L 21.0-32.[address] [facility] Urea nitrogen/Creatinine [Mass ratio] 8.8 mg/mg 10-[address] [facility] Laboratory - Hematology and Cell countsOrdered By: Tamir Allan on 08-16-2023 Erythrocyte distribution width (RBC) [Entitic vol] 42.5 fL 35.1-43.[address] [facility] Erythrocyte distribution width (RBC) [Ratio] 13.1 % 11.6-14.[address] [facility] Immature granulocytes/100 WBC (Bld) 0.500 % 0.0-0.[address] [facility] Comment on above: IG% - Immature Granu locytes (promyelocytes, myelocytes and metamyelocytes) > 1% indicates that a LEFT SHIFT is Present. MCH (RBC) [Entitic mass] 32.8 pg 27.0-32.[address] [facility] Nucleated RBC/100 WBC (Bld) [Ratio] 0 % 0-[address] [facility] MCHC Auto (RBC) [Mass/Vol]Or dered By: Tamir Allan on 08-16-2023 MCHC (RBC) [Mass/Vol] 36.7 g/dL 32-36 [facility] No Panel InformationOrdered By: Tamir Allan on 08-16-2023 Estimated Creatinine Clearance Calc 69.99 ml/min [facility] Estimated GFR (MDRD) Amer 85 mL/min >[address] [facility] Comment on above: GFR Calc Estimated GFR (MDRD) Non-Af Amer 70 mL/min >[address] [facility] Comment on above: Non- GFR Calc No Panel InformationOrdered By: Patrice Watkins on 08-16-2023 Vitamin D 25-Hydroxy 15.4 ng/mL [facility] Comment on above: Vitamin D 25(OH) Sta tus Range Deficiency <20 ng/mL (50nmol/L) Insufficiency 20 - 30 ng/mL (50 - 75 nmol/L) Sufficiency 30 - 100 ng/mL (75 - 250 nmol/L) Toxicity >100 ng/mL (>250 nmol/L) Platelets bldOrdered By: Venu Allan on 08-16-2023 Platelets (Bld) [#/Vol] 171 10*3/uL 150-[address] [facility] Serum or plasma albumin ed urement (mass/volume)Ordered By: Patrice Watkins on 08-16-2023 Albumin [Mass/Vol] 3.3 g/dL 3.2-5.0 [facility] Serum or plasma albumin/glob ulin mass ratioOrdered By: Patrice Watkins on 08-16-2023 Albumin/Globulin [Mass ratio] 1.1 {ratio} 0.9-2.[address] [facility] Serum or plasma calcium ed urement (mass/volume)Ordered By: Tamir Allan on 08-16-2023 Calcium [Mass/Vol] 8.7 mg/dL 8.5-10.1 [facility] Serum or plasma creatinine m easurement (mass/volume)Ordered By: Tamir Allan on 08-16-2023 Creatinine [Mass/Vol] 1.13 mg/dL 0.70-1.30 [facility] Comment on above: The validity of the calculated GFR & GFRAA in patients over 70 years has not been determined. Clinical correlation is essential. Serum or plasma urea nitroge n measurement (mass/volume)Ordered By: Tamir Allan on 08-16-2023 Urea nitrogen [Mass/Vol] 10 mg/dL 7-[address] [facility] Thin prep Papanicolaou smear with manual screeningOrdered By: Tamir Allan on 08-16-2023 Thin prep Papanicolaou smear with manual screening 9 5-[address] [facility] Thin prep Papanicolaou smear with manual screeningOrdered By: Patrice Watkins on 08-16-2023 Thin prep Papanicolaou smear with manual screening 24 U/L 15-[address] [facility] LABORATORYOrdered By: SYSTEM SYSTEM on 05-13-2023 Basophil, Absolute 0.0 103/mcL Invalid Interpretation Code 0.0 - 0.2 10^3/mcL AO Workflow SS Basophils/100 WBC (Bld) 0.1 % Invalid Interpretation Code 0.0 - 2.5 % AO Workflow SS Calcium [Mass/Vol] 8.5 mg/dL Invalid Interpretation Code 8.4 - 10.2 mg/dL AO ADM SS Chloride [Moles/Vol] 96 mmol/L Invalid Interpretation Code 98 - 107 mmol/L AO ADM SS CO2 [Moles/Vol] 30 mmol/L Invalid Interpretation Code 23 - 31 mmol/L AO ADM SS Creatinine [Mass/Vol] 0.83 mg/dL Invalid Interpretation Code 0.70 - 1.30 mg/dL AO ADM SS Electrolyte Balance 5.0 mEq/L Invalid Interpretation Code 4.0 - 15.0 mEq/L AO ADM SS Eosinophil, Absolute 0.0 103/mcL Invalid Interpretation Code 0.0 - 0.4 10^3/mcL AO Workflow SS Eosinophils/100 WBC (Bld) 0.2 % Invalid Interpretation Code 0.0 - 7.0 % AO Workflow SS Erythrocyte distribution width (RBC) [Ratio] 14.1 % Invalid Interpretation Code 11.5 - 14.5 % AO Workflow SS GFR/1.73 sq M.predicted among blacks MDRD (S/P/Bld) [Vol rate/Area] 114 ml/min/1.73sqm Invalid Interpretation Code AO Chemistry S Comment on above: Interpretive Data: GFR Population mean for , Non- Americans Ages 20-29 = 116 mL/min/1.73 sq.m. Ages 30-39 = 107 mL/min/1.73 sq.m. Ages 40-49 = 99 mL/min/1.73 sq.m. Ages 50-59 = 93 mL/min/1.73 sq.m. Ages 60-69 = 85 mL/min/1.73 sq.m. Ages 70+ = 75 mL/min/1.73 sq.m. Chronic Kidney Disease: Less than 60 mL/min/1.73 square meters End Stage Renal Disease: Less than 15 mL/min/1.73 square meters GFR/1.73 sq M.predicted among non-blacks MDRD (S/P/Bld) [Vol rate/Area] 94 ml/min/1.73sqm Invalid Interpretation Code AO Chemistry S Comment on above: Interpretive Data: GFR Population mean for , Non- Americans Ages 20-29 = 116 mL/min/1.73 sq.m. Ages 30-39 = 107 mL/min/1.73 sq.m. Ages 40-49 = 99 mL/min/1.73 sq.m. Ages 50-59 = 93 mL/min/1.73 sq.m. Ages 60-69 = 85 mL/min/1.73 sq.m. Ages 70+ = 75 mL/min/1.73 sq.m. Chronic Kidney Disease: Less than 60 mL/min/1.73 square meters End Stage Renal Disease: Less than 15 mL/min/1.73 square meters Glucose [Mass/Vol] 118 mg/dL Invalid Interpretation Code 80 - 115 mg/dL AO ADM SS Hematocrit (Bld) [Volume fraction] 30.4 % Invalid Interpretation Code 42.0 - 52.0 % AO Workflow SS Hemoglobin (Bld) [Mass/Vol] 10.8 G/dL Invalid Interpretation Code 14.0 - 18.0 G/dL AO Workflow SS Lymphocyte, Absolute 0.9 103/mcL Invalid Interpretation Code 0.8 - 3.9 10^3/mcL AO Workflow SS Lymphocytes/100 WBC (Bld) 10.8 % Invalid Interpretation Code 10.0 - 50.0 % AO Workflow SS MCH (RBC) [Entitic mass] 32.8 pg Invalid Interpretation Code 27.0 - 31.2 pg AO Workflow SS MCHC 35.4 G/dL Invalid Interpretation Code 31.8 - 35.4 G/dL AO Workflow SS MCV (RBC) [Entitic vol] 92.7 fL Invalid Interpretation Code 80.0 - 94.0 fL AO Workflow SS Monocyte, Absolute 0.7 103/mcL Invalid Interpretation Code 0.2 - 1.0 10^3/mcL AO Workflow SS Monocytes/100 WBC (Bld) 8.5 % Invalid Interpretation Code 1.7 - 13.0 % AO Workflow SS Neutrophil, Absolute 6.7 103/mcL Invalid Interpretation Code 2.9 - 6.2 10^3/mcL AO Workflow SS Neutrophils/100 WBC (Bld) 80.4 % Invalid Interpretation Code 37.0 - 80.0 % AO Workflow SS Platelet mean volume (Bld) [Entitic vol] 7.0 fL Invalid Interpretation Code 7.4 - 10.4 fL AO Workflow SS Platelets (Bld) [#/Vol] 144 103/mcL Invalid Interpretation Code 130 - 400 10^3/mcL AO Workflow SS Potassium [Moles/Vol] 4.0 mmol/L Invalid Interpretation Code 3.5 - 5.1 mmol/L AO ADM SS RBC (Bld) [#/Vol] 3.28 106/mcL Invalid Interpretation Code 4.04 - 6.13 10^6/mcL AO Workflow SS Sodium [Moles/Vol] 131 mmol/L Invalid Interpretation Code 136 - 145 mmol/L AO ADM SS Urea nitrogen [Mass/Vol] 10 mg/dL Invalid Interpretation Code 7 - 18 mg/dL AO ADM SS Urea nitrogen/Creatinine [Mass ratio] 12 ratio Invalid Interpretation Code 7 - 27 ratio AO ADM SS WBC (Bld) [#/Vol] 8.3 103/mcL Invalid Interpretation Code 4.6 - 10.8 10^3/mcL AO Workflow SS CNPElizabeth 12-22-2020 CNPN Telephone (UCWSTR) KIM CALDWELL ([id number]) 1960 M Date Time Provider Department 12/22/20 GERALDINE CANSECO [facility] During your visit today, we recorded the following information about you: Geraldine Canseco APRN.CNP 12/22/2020 10:51 AM Signed This BUSINESS PROCESS MANAGER called patient at [phone] left message for patient to return call Please inform of positive covid. Continue home isolation/quarentine . Continue comfort measures for symptoms as you would for a cold. Any worsening symptoms follow up with PCP or ER. BRENNAN Pandey, RN, RN 12/22/2020 2:35 PM Signed Patient notified of results and provider's instructions. Patient verbalizes understanding. Aparna Purvis RN Allergies As of Date: 12/22/2020 (No Known Allergies) Date Reviewed: 12/21/2020 Reviewed by: Gayatri Ramirez LPN - Fully Assessed Reason for Visit: Results [95] Cmt: covid Prescriptions as of 12/22/2020 Sig: BROMPHENIRAMINE-PSEU DOEPHEDRI* Take 10 mL by mouth three karen* Patient not taking: Reported on 11/09/2019 Problem List As Of Date: 12/22/2020 (None) Encounter Status:Closed by APARNA PURVIS RN on 12/22/20 [facility] CNOVon 12-21-2020 CNOV Office Visit (UCWSTR) KIM CALDWELL ([id number]) 1960 M Date Time Provider Department 12/21/20 12:30 PM CLOVER RICO) [facility] During your visit today, we recorded the following information about you: Temperature Pulse Respiration Blood pressure 101.9 degrees 113/minute 18/minute 110/60 Weight 80.1 kg Clover Rico PA-C 12/21/2020 1:24 PM Signed This note was created using [employer]. Subjective Kim Caldwell is a 60 year old male. HPI Presents with a fever over the past 3 and half days. Started to get a little congested Friday and then by the end of the day had chills and felt feverish when he got off of work. He did attempt to go in on Friday but felt like he still had a fever so he went home. He has a temp here of 101.9. He denies chest pain or shortness of breath. No significant cough. No vomiting or diarrhea. No abdominal pain. No change in smell or taste. He has not had Covid previously and is not immunized. He has had some body aches. Review of Systems Constitutional: Positive for chills, fatigue and fever. HENT: Positive for congestion. Negative for ear pain and sore throat. Respiratory: Negative for cough and shortness of breath. Cardiovascular: Negative. Gastrointestinal: Negative. Genitourinary: Negative. Musculoskeletal: Negative. All other systems reviewed and are negative. History reviewed. No pertinent past medical history. Current Outpatient Medications Medication Sig Dispense Refill - Brompheniramine-Pseu doeph-DM (BROMFED DM) 2-30-10 mg/5 mL syrup Take 10 mL by mouth three times daily as needed. (Patient not taking: Reported on 11/09/2019 ) 120 mL 1 No current facility-administere d medications for this visit. No past surgical history on file. No family history on file. Social History Tobacco Use - Smoking status: Current Some Day Smoker - Smokeless tobacco: Never Used Substance Use Topics - Alcohol use: Yes Comment: 2-3 beers daily - Drug use: Not Currently Objective BP 110/60 Pulse 113 Temp (!) 38.8 ?C (101.9 ?F) (Tympanic) Resp 18 Wt 80.1 kg (176 lb 9.6 oz) SpO2 99% BMI 26.08 kg/m? Physical Exam Vitals reviewed. Constitutional: Appearance: Normal appearance. HENT: Head: Normocephalic and atraumatic. Right Ear: Tympanic membrane, ear canal and external ear normal. Left Ear: Tympanic membrane, ear canal and external ear normal. Nose: Congestion present. Mouth/Throat: Mouth: Mucous membranes are moist. Pharynx: Oropharynx is clear. Cardiovascular: Rate and Rhythm: Normal rate and regular rhythm. Heart sounds: Normal heart sounds. Pulmonary: Effort: Pulmonary effort is normal. Breath sounds: Normal breath sounds. Abdominal: General: Abdomen is flat. Bowel sounds are normal. There is no distension. Palpations: Abdomen is soft. Tenderness: There is no abdominal tenderness. There is no guarding. Musculoskeletal: Cervical back: Neck supple. Lymphadenopathy: Cervical: No cervical adenopathy. Skin: General: Skin is warm and dry. Findings: No rash. Neurological: General: No focal deficit present. Mental Status: He is alert and oriented to person, place, and time. Assessment and Plan ASSESSMENT/PLAN: 1. Fever, unspecified fever cause - ICD9: 780.60, ICD10: R50.9 This x-ray is negative. Patient likely does have COVID-19. I did test today. Discussed red flags and quarantine. Discussed supportive care. Patient agreeable with plan. - 2019 CORONAVIRUS - XR CHEST 2V FRONTAL/LAT Clover Rico PA-C Referring Provider: SELF [200] Allergies As of Date: 12/21/2020 (No Known Allergies) Date Reviewed: 12/21/2020 Reviewed by: Gayatri Ramirez LPN - Fully Assessed Reason for Visit: Fever [47] Cmt: fever and chills x 1 day Primary Visit Diagnosis:Fever, unspecified fever cause [R50.9] Order(s):2019 CORONAVIRUS [SQCOVID] Order #: [id number] FUTURE XR CHEST 2V FRONTAL/LAT [[id number]] Order #: [id number] FUTURE Prescriptions as of 12/21/2020 Sig: BROMPHENIRAMINE-PSEU DOEPHEDRI* Take 10 mL by mouth three karen* Patient not taking: Reported on 11/09/2019 Problem List As Of Date: 12/21/2020 (None) Letter Text Encounter Status:Closed by CLOVER RICO PA-C on 12/21/20 Normal [facility] Coronavirus 2019on 1 SARS-CoV-2 (COVID-19) RNA JOSE FRANCISCO+probe Ql (Unsp spec) UPPER RESPIRATORY TRACT SWAB Normal [facility] Comment on above: Performed By: #### C OVID #### [facility] [address] [place] [address] SARS-CoV-2 (COVID-19) RNA JOSE FRANCISCO+probe Ql (Unsp spec) Positive for COVID19 (SARS CoV2) by RT-PCR or equivalent method. Critically abnormal Negative for COVID19 (SARS CoV2) by RT-PCR or equivalent method. [facility] Comment on above: Result Comment: This test was developed and its performance characteristics determined by [facility] [place]. This test has been authorized by FDA under an Emergency Use Authorization (EUA). This test has been validated in accordance with the FDA's Guidance Document Policy for Diagnostics Testing in Laboratories Certified to Perform High Complexity Testing under CLIA prior to Emergency use Authorization for Coronavirus Disease 2019 during the Public Health Emergency issued on November 13, 2019. Test performed by [facility], [facility] [place], [address], [place] [address]. Performed By: #### C OVID #### [place] [id number] [place] [id number] XR CHEST 2V FRONTAL/LATon XR CHEST 2V FRONTAL/LAT * * *Final Repor t* * * DATE OF EXAM: Dec 21 2020 1:05PM WOX [id number] - XR CHEST 2V FRONTAL/LAT / PROCEDURE REASON: Fever, unspecified fever cause * * * * Physician Interpretation * * * * EXAMINATION: CHEST RADIOGRAPH (2 VIEW FRONTAL and LATERAL) CLINICAL HISTORY: Fever, unspecified fever cause MQ: XC2_6 EXAM DATE/TIME: 12/21/2020 1:05 PM COMPARISON: Chest radiograph(s) dated RESULT: Lines, tubes, and devices: None. Lungs and pleura: No consolidation. No lung mass. No pleural effusion. No pneumothorax. Small area of consolidation previously noted in the right lower lobe has cleared. Cardiomediastinal silhouette: Normal cardiomediastinal silhouette. Bones and soft tissues: Old rib and clavicle fractures again noted on the right. IMPRESSION: No acute radiographic abnormality. Supervisor Scrap Preparation: [employer] Transcribe Date/Time: Dec 21 2020 1:09P Dictated by : FRANCISCO JAVIER HANKS MD This examination was interpreted and the report reviewed and electronically signed by: FRANCISCO JAVIER HANKS MD on Dec 21 2020 1:12PM EST [id number] Normal [facility] XR Chest PA and Lateralon IMPRESSION: No acute radiographic abnormality. Supervisor Scrap Preparation: [employer] Transcribe Date/Time: Dec 21 2020 1:09P Dictated by : FRANCISCO JAVIER HANKS MD This examination was interpreted and the report reviewed and electronically signed by: FRANCISCO JAVIER HANKS MD on Dec 21 2020 1:12PM EST DIVISION OF RADIOLOGY * * *Final Report* * * DATE OF EXAM: Dec 21 2020 1:05PM [id number] - XR CHEST 2V FRONTAL/LAT / PROCEDURE REASON: Fever, unspecified fever cause * * * * Physician Interpretation * * * * EXAMINATION: CHEST RADIOGRAPH (2 VIEW FRONTAL & LATERAL) CLINICAL HISTORY: Fever, unspecified fever cause MQ: XC2_6 EXAM DATE/TIME: 12/21/2020 1:05 PM COMPARISON: Chest radiograph(s) dated RESULT: Lines, tubes, and devices: None. Lungs and pleura: No consolidation. No lung mass. No pleural effusion. No pneumothorax. Small area of consolidation previously noted in the right lower lobe has cleared. Cardiomediastinal silhouette: Normal cardiomediastinal silhouette. Bones and soft tissues: Old rib and clavicle fractures again noted on the right. DIVISION OF RADIOLOGY Provider, [facility] [place] - 12/21/2020 * * *Final Report* * * DATE OF EXAM: Dec 21 2020 1:05PM WO [id number] - XR CHEST 2V FRONTAL/LAT / PROCEDURE REASON: Fever, unspecified fever cause * * * * Physician Interpretation * * * * EXAMINATION: CHEST RADIOGRAPH (2 VIEW FRONTAL & LATERAL) CLINICAL HISTORY: Fever, unspecified fever cause MQ: XC2_6 EXAM DATE/TIME: 12/21/2020 1:05 PM COMPARISON: Chest radiograph(s) dated RESULT: Lines, tubes, and devices: None. Lungs and pleura: No consolidation. No lung mass. No pleural effusion. No pneumothorax. Small area of consolidation previously noted in the right lower lobe has cleared. Cardiomediastinal silhouette: Normal cardiomediastinal silhouette. Bones and soft tissues: Old rib and clavicle fractures again noted on the right. IMPRESSION IMPRESSION: No acute radiographic abnormality. Supervisor Scrap Preparation: [employer] Transcribe Date/Time: Dec 21 2020 1:09P Dictated by : FRANCISCO JAVIER HANKS MD This examination was interpreted and the report reviewed and electronically signed by: FRANCISCO JAVIER HANKS MD on Dec 21 2020 1:12PM EST [facility] Radiology Study observation (narrative) Cornelius knight [facility] XR Chest PA and LateralOrder ed By: Cc Provider on 12-21-2020 [facility] Vital Signs Date Time Vital Sign Value Performing Clinician Facility 02-10-2025 09:26-0400 Body height 177.[address] Emanuel Macedo MD Work Phone: [facility] 02-10-2025 09:26-0400 Body temperature 97.3 [degF] Dr. Emanuel Macedo MD Work Phone: [facility] 02-10-2025 09:26-0400 Diastolic blood pressure 70 mm[Hg] Dr. Emanuel Macedo MD Work Phone: [facility] 02-10-2025 09:26-0400 Heart rate 98 /min Dr. Emanuel Macedo MD Work Phone: [facility] 02-10-2025 09:26-0400 Respiratory rate 16 /min Dr. Emanuel Macedo MD Work Phone: 1(357)[phone] [place] [address] 02-10-2025 09:26-0400 SaO2% (BldA) [Mass fraction] 99 % Dr. Emanuel Macedo MD Work Phone: 9(221)[phone] [address] 02-10-2025 09:26-0400 Systolic blood pressure 103 mm[Hg] Dr. Emanuel Macedo MD Work Phone: 8(694)[phone] [place] [address] 01-24-2025 15:36-0400 Body temperature 97.9 [degF] Dr. Emanuel Macedo MD Work Phone: [facility] 01-24-2025 15:36-0400 Diastolic blood pressure 93 mm[Hg] Dr. Emanuel Macedo MD Work Phone: 3(768)[phone] [place] [address] 01-24-2025 15:36-0400 Heart rate 83 /min Dr. Emanuel Macedo MD Work Phone: [facility] 01-24-2025 15:36-0400 Respiratory rate 18 /min Dr. Emanuel Macedo MD Work Phone: [facility] 01-24-2025 15:36-0400 SaO2% (BldA) [Mass fraction] 97 % Dr. Emanuel Macedo MD Work Phone: [facility] 01-24-2025 15:36-0400 Systolic blood pressure 136 mm[Hg] Dr. Emanuel Macedo MD Work Phone: 0(418)[phone] [place] [address] 01-24-2025 05:41-0400 Body mass index (BMI) [Ratio] 23.3 kg/m2 Dr. Emanuel Macedo MD Work Phone: [facility] 01-24-2025 05:41-04[address] Body weight [address] Emanuel Macedo MD Work Phone: [facility] 01-20-2025 10:03-0400 Body height 177.[address] Emanuel Macedo MD Work Phone: [facility] 10-05-2024 14:25-0500 Body weight 56.[address] Emanuel Macedo MD Work Phone: [facility] 08-21-2023 14:01-0500 Body temperature 98 [degF] BUSINESS PROCESS MANAGER-C Sofia Adame BUSINESS PROCESS MANAGER Work Phone: [facility] 08-21-2023 14:01-0500 Diastolic blood pressure 85 mm[Hg] BUSINESS PROCESS MANAGER-C Sofia Adame BUSINESS PROCESS MANAGER Work Phone: [facility] 08-21-2023 14:01-0500 Heart rate 98 /min BUSINESS PROCESS MANAGER-C Sofia Adame BUSINESS PROCESS MANAGER Work Phone: [facility] 08-21-2023 14:01-0500 Respiratory rate 18 /min BUSINESS PROCESS MANAGER-C Sofia Adame BUSINESS PROCESS MANAGER Work Phone: [facility] 08-21-2023 14:01-0500 SaO2% (BldA) [Mass fraction] 100 % BUSINESS PROCESS MANAGER-C Sofia Adame BUSINESS PROCESS MANAGER Work Phone: [facility] 08-21-2023 14:01-0500 Systolic blood pressure 111 mm[Hg] BUSINESS PROCESS MANAGER-C Sofia Adame BUSINESS PROCESS MANAGER Work Phone: [facility] 08-17-2023 08:00-0500 Body height 177.8 cm BUSINESS PROCESS MANAGER-C Sofia Adame BUSINESS PROCESS MANAGER Work Phone: [facility] 08-17-2023 08:00-0500 Body mass index (BMI) [Ratio] 25.2 kg/m2 BUSINESS PROCESS MANAGER-C Sofia Adame BUSINESS PROCESS MANAGER Work Phone: [facility] 08-17-2023 08:00-0500 Body weight 79.78 kg BUSINESS PROCESS MANAGERXochilt Adame BUSINESS PROCESS MANAGER Work Phone: [facility] 08-16-2023 05:58-0500 Diastolic blood pressure 81 mm[Hg] [facility] 08-16-2023 05:58-0500 Heart rate 81 /min [facility] 08-16-2023 05:58-0500 Respiratory rate 18 /min [facility] 08-16-2023 05:58-0500 SaO2% (BldA) [Mass fraction] 100 % [facility] 08-16-2023 05:58-0500 Systolic blood pressure 128 mm[Hg] [facility] 08-16-2023 05:08-0500 Body temperature 97.6 [degF] [facility] 08-16-2023 05:00-0500 Body height 177.8 cm [facility] 08-16-2023 05:00-0500 Body mass index (BMI) [Ratio] 25.8 kg/m2 [facility] 08-16-2023 05:00-0500 Body weight 81.6 kg [facility] 05-13-2023 09:44-0400 Body temperature 97.7 [degF] ERNESTO ADAME DO [facility] 05-13-2023 09:44-0400 Diastolic Blood Pressure Non-Invasive 88 1 ERNESTO ADAME DO [facility] 05-13-2023 09:44-0400 Heart rate 79 /min ERNESTO ADAME DO [facility] 05-13-2023 09:44-0400 Reason For Taking VItal Signs ERNESTO ADAME DO [facility] 05-13-2023 09:44-0400 Respiratory rate 16 /min ERNESTO ADAME DO [facility] 05-13-2023 09:44-0400 Systolic Blood Pressure Non-Invasive 161 1 ERNESTO ADAME DO [facility] 05-13-2023 03:54-0400 Body temperature 98.42 [degF] ERNESTO ADAME DO [facility] 05-13-2023 03:54-0400 Diastolic Blood Pressure Non-Invasive 94 1 ERNESTO ADAME DO [facility] 05-13-2023 03:54-0400 Heart rate 77 /min ERNESTO ADAME DO [facility] 05-13-2023 03:54-0400 Respiratory rate 18 /min ERNESTO ADAME DO [facility] 05-13-2023 03:54-0400 Systolic Blood Pressure Non-Invasive 145 1 ERNESTO ADAME DO [facility] 05-12-2023 23:02-0400 Body temperature 97.7 [degF] ERNESTO ADAME DO [facility] 05-12-2023 23:02-0400 Diastolic Blood Pressure Non-Invasive 101 1 ERNESTO ADAME DO [facility] 05-12-2023 23:02-0400 Heart rate 71 /min ERNESTO ADAME DO [facility] 05-12-2023 23:02-0400 Respiratory rate 18 /min ERNESTO ADAME DO [facility] 05-12-2023 23:02-0400 Systolic Blood Pressure Non-Invasive 149 1 ERNESTO ADAME DO [facility] 05-12-2023 14:58-0400 Body height 175 cm ERNESTO ADAME DO [facility] 05-12-2023 14:58-0400 Body weight 76 kg ERNESTO ADAME DO [facility] 05-12-2023 14:58-0400 Body weight 24.82 kg/m2 ERNESTO ADAME DO [facility] 05-12-2023 14:21-0400 Heart rate 71 /min ERNESTO ADAME DO [facility] 05-12-2023 14:15-0400 Heart rate 73 /min ERNESTO ADAME DO [facility] 05-12-2023 14:10-0400 Heart rate 75 /min ERNESTO ADAME DO [facility] 05-12-2023 13:13-0400 Body temperature 96.26 [degF] ERNESTO ADAME DO [facility] 05-12-2023 13:05-0400 Respiratory Rate - Anes 8 br/min ERNESTO ADAME DO [facility] 05-12-2023 13:00-0400 Respiratory Rate - Anes 5 br/min ERNESTO ADAME DO [facility] 05-12-2023 12:55-0400 Respiratory Rate - Anes 8 br/min ERNESTO ADAME DO [facility] 05-12-2023 12:45-0400 Body temperature 96.8 [degF] ERNESTO ADAME DO [facility] 05-12-2023 10:32-0400 Heart rate 76 /min ERNESTO ADAME DO [facility] 05-12-2023 10:16-0400 Body height 175 cm ERNESTO ADAME DO [facility] 05-12-2023 10: Body weight 76 kg ERNESTO ADAME DO [facility] 05-12-2023 10: Body weight 24.82 kg/m2 ERNESTO ADAME DO [facility] Encounters Encounter Date Encounter Type Care Provider Facility Start: 02-10-2025 End: 02-10-[address] Myrtle Christiansen MD -[facility] Work Phone: Start: 02-10-2025 End: 02-10-[address] Emanuel Macedo MD Work Phone: [facility] Work Phone: Start: 02-09-2025 ambulatory Michelle LANG Facili ty:[facility] Start: 02-09-[address] Michelle Loco MD -[facility] Start: 02-08-2025 [facility] Work Phone: Start: 02-08-2025 ambulatory [facility] Facility :[facility] Start: 02-02-2025 ambulatory Michelle LANG Facili ty:[facility] Start: 02-02-[address] Michelle Loco MD -[facility] Start: 01-25-2025 ambulatory Michelle LANG Facili ty:[facility] Start: 01-25-[address] Michelle Loco MD -[facility] Start: 01-24-2025 Non-patient / Non-visit Dr. Shorty Lea MD -[facility] Work Phone: Start: 01-23-2025 Non-patient / Non-visit Dr. Shorty Lea MD -[facility] Work Phone: Start: 01-22-2025 Non-patient / Non-visit Dr. Shorty Lea MD -[facility] Work Phone: Start: 01-21-2025 Non-patient / Non-visit Dr. Shorty Lea MD -[facility] Work Phone: Start: 01-20-2025 Non-patient / Non-visit Dr. Shorty Lea MD -[facility] Work Phone: Start: 01-19-2025 Non-patient / Non-visit Dr. Shorty Lea MD -[facility] Work Phone: Start: 01-19-2025 ambulatory Shorty Lea Facility: [facility] Start: 01-19-2025 End: 01-24-2025 Evaluation and management of inpatient Dr. Shorty Lea MD -[facility] Work Phone: Start: 10-05-2024 End: 10-05-[address] Obie Funk MD -[employer] Work Phone: Start: 10-05-2024 End: 10-05-2024 ambulatory Obie Funk Facility:[facility] Start: 09-30-2024 ambulatory Emanuel [facility] [place] Facility:[facility] Start: 08-30-2024 End: 08-30-2024 ambulatory Emanuel [facility] [place] Facility:[facility] Start: 05-21-2024 ambulatory SOFIA NASCIMENTO EVIDENCE SPECIALIST - SWEATBAND SEPARATOR Facility:[facility] Start: 05-18-2024 ambulatory SERGIO NEELY MD Facility :[facility] Start: 05-05-2024 ambulatory Emanuel [facility] [place] Facility:[facility] Start: 04-29-2024 End: 04-29-2024 ambulatory Emanuel [facility] [place] Facility:[facility] Start: 04-23-2024 ambulatory Tristan Chowdhury Facility: [facility] Start: 04-22-2024 End: 04-22-2024 ambulatory Marci Cesar Facility:[facility] Start: 04-21-2024 End: 04-26-2024 ambulatory Tristan Chowdhury Facility:[facility] Start: 2024 End: 2024 ambulatory Emanuel [facility] [place] Facility:[facility] Start: 04-07-2024 ambulatory OBIE FUNK MD Facili ty:[facility] Start: 09-22-2023 End: 01-08-2024 ambulatory OBIE FUNK MD Facility:[facility] Start: 09-22-2023 End: 01-08-2024 Physical therapy management OBIE FUNK MD [facility] Start: 08-20-2023 Non-patient / Non-visit BUSINESS PROCESS MANAGER-C R monica Adame BUSINESS PROCESS MANAGER Work Phone: [facility] Work Phone: Start: 08-19-2023 Non-patient / Non-visit BUSINESS PROCESS MANAGER-C R monica Adame BUSINESS PROCESS MANAGER Work Phone: [facility] Work Phone: Start: 08-18-2023 Non-patient / Non-visit BUSINESS PROCESS MANAGER-C R monica Simmonskins BUSINESS PROCESS MANAGER Work Phone: [facility] Work Phone: Start: 08-17-2023 Non-patient / Non-visit BUSINESS PROCESS MANAGER-C R omnica Wendi BUSINESS PROCESS MANAGER Work Phone: [facility] Work Phone: Start: 08-16-2023 Non-patient / Non-visit BUSINESS PROCESS MANAGER-C R farshadard Wendi BUSINESS PROCESS MANAGER Work Phone: [facility] Work Phone: Start: 08-16-2023 End: 08-21-2023 Evaluation and management of inpatient [facility] Work Phone: Start: 06-24-2023 End: 08-11-2023 ambulatory ERNESTO ADAME DO Facility:[facility] Start: 06-24-2023 End: 08-11-2023 Physical therapy management ERNESTO ADAME DO [facility] Start: 05-12-2023 End: 05-13-2023 Observation ERNESTO ADAME DO [facility] Start: 12-21-2020 End: 12-21-2020 Subsequent hospital visit by physician Xr [facility] Work Phone: Radiology Comment on above: Fever, unspecified f ever cause [R50.9] Procedures Date Procedure Procedure Detail Performing Clinician Start: 02-09-2025 Serum inorganic phos phate measurement Dr. Emanuel Macedo MD Work Phone: Start: 02-02-2025 Serum inorganic phos phate measurement Dr. Emanuel Macedo MD Work Phone: Start: 01-25-2025 Vitamin D, 25-hydrox y measurement Dr. Emanuel Macedo MD Work Phone: Comment on above: Vitamin D StatusDefi ciency: <20 ng/mL (50nmol/L)Insufficiency: 20-30 ng/mL (50-75 nmol/L)Sufficiency: 30-100 ng/mL (75-250 nmol/L)Toxicity: >100 ng/mL (>250 nmol/L) Start: 01-24-[address] Emanuel Macedo MD Work Phone: Start: 01-24-[address] cell [address] Emanuel Macedo MD Work Phone: Start: 01-24-2025 Total iron binding capacity measurement Dr. Emanuel Macedo MD Work Phone: Start: 01-21-2025 Chloride measurement , urine Dr. Emanuel Macedo MD Work Phone: Start: 01-21-2025 End: 01-21-2025 X-ray of foot, three or more views Dr. Emanuel Macedo MD Work Phone: Start: 01-21-2025 Serum inorganic phos phate measurement Dr. Emanuel Macedo MD Work Phone: Start: 01-19-[address] Emanuel Macedo MD Work Phone: Comment on above: Performed at: [facility] [place], [place] [id number] Director: Harrison Villareal PhD, Phone: [phone] Start: 01-19-2025 Measurement of occul t blood in stool specimen using immunoassay Dr. Emanuel Macedo MD Work Phone: Start: 01-19-2025 Urnls dip stick/tabl et reagent auto microscopy Dr. Emanuel Macedo MD Work Phone: Start: 01-19-2025 CT of head without contrast Dr. Emanuel Macedo MD Work Phone: Start: 01-19-2025 Plain chest X-ray Dr. Marleny Macedo MD Work Phone: Start: 01-19-[address] e fraction Dr. Emanuel Macedo MD Work Phone: Start: 01-19-2025 Plain radiography of pelvis Dr. Emanuel Macedo MD Work Phone: Start: 08-17-2023 Plain X-ray of hip BUSINESS PROCESS MANAGER-C Sofia Adame BUSINESS PROCESS MANAGER Work Phone: Start: 08-17-2023 Plain X-ray of shoulder BUSINESS PROCESS MANAGER-C Sofia Simmonskins BUSINESS PROCESS MANAGER Work Phone: Start: 08-17-2023 Total replacement of right hip joint BUSINESS PROCESS MANAGER-C Sofia Simmonskins BUSINESS PROCESS MANAGER Work Phone: Start: 08-16-2023 Plain chest X-ray BUSINESS PROCESS MANAGER-C Sofia Simmonskins BUSINESS PROCESS MANAGER Work Phone: Start: 08-16-2023 Plain x-ray of pelvi s and lower extremity BUSINESS PROCESS MANAGER-C Sofia Simmonskins BUSINESS PROCESS MANAGER Work Phone: Start: 05-12-2023 Cervical arthrodesis by anterior technique ERNESTO ADAME DO Start: 12-21-2020 Radiologic exam ches t 2 views [facility] Work Phone: Extraction of cataract ANNETTE ADAME DO Comment on above: bilateral Plan of Treatment Date Care Activity Detail Author Start: 01-24-2025 Patient discharge [facility] Start: 01-24-2025 Care planning and problem solving actions [facility] Start: 01-20-2025 End: 01-20-2025 Administration of blood product [facility] Start: 01-20-2025 Vital signs measurements [facility] Start: 01-20-2025 Vital signs measurements [facility] Start: 01-20-2025 Vital signs measurements [facility] Start: 01-20-2025 Vital signs measurements [facility] Start: 01-20-2025 Vital signs measurements [facility] Start: 01-19-2025 Vital signs measurements [facility] Start: 01-19-2025 Vital signs measurements [facility] Start: 01-19-2025 Vital signs measurements [facility] Start: 01-19-2025 Vital signs measurements [facility] Start: 01-19-2025 Application of intermittent pneumatic compression device [facility] Start: 01-19-[address] [facility] Start: 01-19-2025 Vital signs measurements [facility] Start: 01-19-2025 Following clinical pathway protocol [facility] Start: 01-19-2025 Ambulation without limitation [facility] Start: 01-19-2025 Assessment of risk of venous thromboembolism [facility] Start: 01-19-2025 Documentation procedure [facility] Start: 01-19-2025 Insertion of catheter into peripheral vein [facility] Start: 01-19-2025 Measuring intake and output [facility] Start: 01-19-2025 Providing care according to standard [facility] Start: 01-19-2025 Referral to occupational therapist [facility] Start: 01-19-2025 Referral to service [facility] Start: 01-19-[address] [facility] Start: 01-19-2025 Vital signs measurements [facility] Start: 01-19-2025 Admission procedure [facility] Start: 01-19-2025 Administration of blood product [facility] Start: 01-19-2025 Patient referral to dietitian [facility] Start: 05-16-2024 Covid-19 Vaccine ( season) Covid-19 Vaccine ( season) [facility] Start: 05-16-2024 Influenza vaccination Influenza Vaccine (#1) [facility] Start: 08-27-2023 Blood chemistry [facility] Start: 08-26-2023 Blood chemistry [facility] Start: 08-25-2023 Blood chemistry [facility] Start: 08-24-2023 Blood chemistry [facility] Start: 08-23-2023 Blood chemistry [facility] Start: 08-22-2023 Blood chemistry [facility] Start: 08-21-2023 Patient discharge [facility] Start: 08-20-2023 Referral to service [facility] Start: 08-18-2023 Provision of overbed ballad healthe [facility] Start: 08-17-2023 Ambulation therapy management [facility] Start: 08-17-2023 Assessment of risk of venous thromboembolism [facility] Start: 08-17-2023 Catheterization of vein [facility] Start: 08-17-[address] [facility] Start: 08-17-2023 Following clinical pathway protocol [facility] Start: 08-17-2023 Introduction of urinary catheter [facility] Start: 08-17-2023 Measuring intake and output [facility] Start: 08-17-2023 Neurovascular assessment [facility] Start: 08-17-2023 Patient education [facility] Start: 08-17-2023 Procedure discontinued [facility] Start: 08-17-2023 Provision of activity privileges [facility] Start: 08-17-2023 Provision of overbed [facility] Start: 08-17-2023 Vital signs measurements [facility] Start: 08-17-20[address] [facility] Start: 08-17-[address] [facility] Start: 08-17-2023 Measuring intake and output [facility] Start: 08-16-2023 Measuring intake and output [facility] Start: 08-16-2023 Measuring intake and output [facility] Start: 08-16-2023 Recommendation to continue with treatment [facility] Start: 08-16-2023 Referral to occupational therapist [facility] Start: 08-16-2023 Referral to service [facility] Start: 08-16-2023 Application of intermittent pneumatic compression device [facility] Start: 08-16-2023 Application of ice collar, cap or bag [facility] Start: 08-16-2023 Assessment of risk of venous thromboembolism [facility] Start: 08-16-[address] [facility] Start: 08-16-2023 Documentation procedure [facility] Start: 08-16-2023 Insertion of catheter into peripheral vein [facility] Start: 08-16-2023 Neurovascular assessment [facility] Start: 08-16-2023 Providing care according to standard [facility] Start: 08-16-2023 Referral to service [facility] Start: 08-16-[address] [facility] Start: 08-16-[address] [facility] Start: 08-16-2023 Measuring intake and output [facility] Start: 08-16-2023 Following clinical pathway protocol [facility] Start: 08-16-2023 Verification routine [facility] Start: 08-16-2023 Admission procedure [facility] Start: 08-16-2023 Hospital admission, emergency, from emergency room, medical nature [facility] Start: 08-16-2023 Plain chest X-ray Chest 1 View (Portable) [facility] Start: 08-16-2023 Plain x-ray of pelvis and lower extremity HIP, UNI W/ Pelvis 2-[address] [facility] Start: 08-16-2023 XR Chest Single view [facility] Start: 08-16-2023 XR Pelvis and Hip Views [facility] Start: 08-16-[address] [facility] Start: 08-16-2023 Application of ice collar, cap or bag [facility] Start: 2021 RSV Vaccine (1 - 1-dose 60+ series) RSV Vaccine (1 - 1-dose 60+ series) [facility] Start: 2016 Prostate specific antigen measurement Prostate Cancer Screening Discussion [facility] Start: 2011 Shingrix Vaccine (1 of 2) Shingrix Vaccine (1 of 2) [facility] Start: 2006 Diabetes Screening Diabetes Screening [facility] Start: 2006 Screening for malignant neoplasm of colon [facility] Start: 1996 Lipid panel Lipid Screening [facility] Start: 1980 Urine microalbumin profile DTaP,Tdap,Td Vaccine (1 - Tdap) [facility] Start: 1979 Anxiety Screening Anxiety Screening [facility] Start: 1979 Depression Screening Depression Screening [facility] Start: 1979 Hepatitis C screening Hepatitis C Screening [facility] Start: 1979 HIV screening HIV Screening [facility] Ferritin [Mass/volum e] in Serum or Plasma [facility] Iron and Iron bindin g capacity panel - Serum or Plasma [facility] Patient referral [facility] Work Phone: Procedure [facility] Immunizations Immunization Date Immunization Notes Care Provider Jeff middleton 09-28-2015 tetanus toxoid, redu sreedhar diphtheria toxoid, and acellular pertussis vaccine, adsorbed ERNESTO ADAME DO [facility] 09-15-2014 tetanus and diphther ia toxoids, adsorbed, preservative free, for adult use (2 Lf of tetanus toxoid and 2 Lf of diphtheria toxoid) BUSINESS PROCESS MANAGER-C Sofia Adame NP Work Phone: [facility] 09-15-2014 tetanus and diphther ia toxoids, adsorbed, preservative free, for adult use (5 Lf of tetanus toxoid and 2 Lf of diphtheria toxoid) ERNESTO ADAME DO [facility] Payers Date Payer Category Payer Unknown [id number] 2024 Private Health Insurance [id number] 2024 Self-pay [id number] 2023 Unknown [id number] 2023 Unknown [id number] 2019 Private Health Insurance [facility] [id number] 2019-Present [phone] [facility] [id number] [place] [address] Open Access [id number] 1960 Unknown [id number] 2.16.840.1.548115.3.579.2.6 27 1961 Unknown [id number] 2.16.840.1.778641.3.579.2.6 27 1961 Unknown [id number] 2.16.840.1.548918.3.579.2.6 27 1961 Unknown [id number] 2.16.840.1.345503.3.579.2.6 27 1961 Unknown [id number] 2.16.840.1.890783.3.579.2.6 27 Unknown [id number] 2.16.840.1.717327.3.579.2.4 62 Unknown [id number] 2.16.840.1.762666.3.579.2.4 62 Unknown [id number] 2.16.840.1.405843.3.579.2.4 62 Unknown [id number] 2.16.840.1.376497.3.579.2.4 62 Unknown [id number] 2.16.840.1.197702.3.579.2.4 62 Unknown [id number] 2.16.840.1.335370.3.579.2.4 62 Unknown [id number] 2.16.840.1.965849.3.579.2.4 62 Unknown [id number] 2.16.840.1.760518.3.579.2.4 62 Unknown [id number] 2.16.840.1.634172.3.579.2.4 62 Unknown [id number] 2.16.840.1.886937.3.579.2.4 62 Unknown [id number] 2.16.840.1.202668.3.579.2.4 62 Unknown [id number] 2.16.840.1.388912.3.579.2.4 62 Unknown [id number] 2.16.840.1.808891.3.579.2.4 62 Unknown [id number] 2.16.840.1.812431.3.579.2.4 62 Unknown [id number] 2.16.840.1.619574.3.579.2.4 62 Unknown [id number] 2.16.840.1.973760.3.579.2.4 62 Unknown [id number] 2.16.840.1.590526.3.579.2.4 62 Unknown [id number] 2.16.840.1.583366.3.579.2.4 62 Unknown [id number] 2.16.840.1.823890.3.579.2.4 62 Unknown [id number] 2.16.840.1.042602.3.579.2.4 62 Unknown [id number] 2.16.840.1.825481.3.579.2.4 62 Unknown [id number] 2.16.840.1.579943.3.579.2.4 62 Unknown [id number] 2.16.840.1.170125.3.579.2.4 62 Unknown [id number] 2.16.840.1.356819.3.579.2.4 62 Unknown [id number] 2.16.840.1.817278.3.579.2.4 62 Unknown [id number] 2.16.840.1.052134.3.579.2.4 62 Unknown [id number] 2.16.840.1.529249.3.579.2.4 62 Unknown [id number] 2.16.840.1.246935.3.579.2.4 62 Unknown [id number] 2.16.840.1.734824.3.579.2.4 62 Unknown [id number] 2.16.840.1.713804.3.579.2.4 62 Social History Date Type Detail Facility Start: 05-09-2023 Tobacco smoking status Heavy t obacco smoker (finding) [facility] Start: 1960 Sex Assigned At Male A [facility] Start: 08-16-2023 End: 08-16-2023 Tobacco smoking status NVIS Unknown if ever smoked [facility] Start: 03-30-2019 End: 01-20-2025 Tobacco smoking status NVIS Occasional tobacco smoker [facility] Start: 03-30-2019 Tobacco use and exposure Smokeless tobacco non-user [facility] Start: 12-21-2020 Alcoholic beverage intake Current drinker of alcohol (finding) [facility] Start: 08-23-2020 End: 12-21-2020 History of Social function [facility] Start: 08-23-2020 End: 12-21-2020 Tobacco use panel [facility] National Score (1-100), lower number is lower risk Not on file [facility] Start: 03-30-2019 Alcohol Comment 2-3 beers daily [facility] Start: 1960 Sex assigned at Not on file [facility] Start: 11-21-2020 End: 12-21-2020 Exposure to SARS-CoV-2 (event) Not sure [facility] Start: 02-10-2025 Tobacco smoking stat us NVIS Ex-smoker (finding) [facility] Medical Equipment Procedure Code Equipment Code Equipment Origin al Text Equipment Identifier Dates ([id number]) Ceramic femoral head prosthesis [id number] FDA Start: 08-17-2023 ([id number]) Acetabular shell ()[id number] FDA Start: 08-17-2023 ([id number]) Coated hip femur prosthesis, modular ()[id number] FDA Start: 08-17-2023 ([id number]) Non-constrained polyethylene acetabular liner ()[id number] FDA Start: 08-17-2023 ([id number]) Acetabular shell ()[id number] FDA Start: 08-17-2023 ([id number]) Orthopaedic bone screw, non-bioabsorbable, sterile ()[id number] FDA Start: 08-17-2023 ([id number]) Orthopaedic bone screw, non-bioabsorbable, sterile ()[id number] FDA Start: 08-17-2023 Goals Date Patient Goal Desired Activity /State Functional Status Date Assessment Result Facility 01-24-2025 Functional status Ambulates;B[facility] Work Phone: 09-22-2023 Functional Status Objective: Cardiovascular screen: BP: 150/90 , HR: 89 BPM O2 sat: 98% Gait: mild antalgic gait on the R. Weight bearing status: WBAT Effusion: min to no leg effusion. Functional Strength: sit to stand: relies heavily on UE assist. Palpation: denies tenderness to palpation to bilat LE's, Denies chest pain or shortness of breath. Neurological Screen: Sensation: Grossly intact to light touch on bilat LE's Special tests: Homans sign - [facility] 08-21-2023 Functional status Patient Activity Dangle Feet [facility] Work Phone: 08-21-2023 Functional status Activity Abili ty With Assist of [address] [facility] Work Phone: 08-20-2023 Functional status Standard Walker [facility] Work Phone: 06-24-2023 Functional Status OBJECTIVE Posture: guarding of neck with turning of trunk Gait: amb with no AD, wide LESIA, trendelenburg gait, decreased heel to toe gait LLE Transfers: able to perform STS without use of UEs Sensation: no abnormalities or asymmetries with light gross touch LEs, and UEs with decreased sensation to report at bilateral fingers cervical AROM: pt reports not wanting to move it - unable to fully assess shoulder AROM: bilateral flexion ~100 deg, abduction bilat 100deg, functional IR WNL bilat, functional ER to ears SLS: R 4 second and LOB to L, L unable to perform 5x STS 24 seconds Dynamometer: R 64lbs, L 58 lbs [facility] 05-13-2023 Functional Status Multilevel silvia e, 1st floor bedroom, 1st floor bathroom, 1st floor neundry [facility] 05-13-2023 [facility] Functional Status bilateral knee high removed/off [facility] 05-13-2023 Functional Status [facility] 05-12-2023 Functional Status [facility] 05-12-2023 Functional Status [facility] 05-12-2023 Functional Status [facility] 05-12-2023 Functional Status [facility] 05-12-2023 Functional Status [facility] 05-12-2023 Functional Status More than 8 hours [facility] Mental Status Date Assessment Result Facility 01-24-2025 Cognitive function Voice/Name [facility] Work Phone: 08-21-2023 Cognitive function Voice/Name [facility] Work Phone: 05-13-2023 Mental Status Orientation Oriented x 4 [facility] 05-12-2023 Mental Status [facility] 05-12-2023 Mental Status [facility] 05-12-2023 Mental Status [facility] 05-12-2023 Mental Status [facility] Clinical Notes 12-21-2020 to 01-24-2025 Note Date & Type Note Facility 01-24-2025 [address] [facility] 01-24-2025 Discharge summary Note Date/Time January 24, 2025 4:30pm [facility] Medical Records Department [address] [place] [address] Discharge Summary 01/24/25 1629 MR#: [id number] Acct: [id number] Name: KIM CALDWELL Rep #:[id number] : 1960 64 From: Shorty Knight PCP: Dr. Emanuel Macedo MD Status:ADM I N Location: [place] [address] Providers Date of Admission: 01/19/25 Date of Discharge: 01/24/25 Primary Care Physician: Dr. Emanuel Macedo MD Reason For Visit: SEVERE HYPONATREMIA Diagnosis Discharge Diagnosis (1) Chronic hyponatremia: Status: Chronic Code(s): E87.1 - Hypo-osmolality and hyponatremia Plan This 64-year-old gentleman being admitted for severe generalized weakness, gait instability for 1 that, fall today and found severe anemia thrombocytopenia in ED 1. Severe anemia and thrombocytopenia probably due to chronic alcoholism/BM suppression:. H&H 5.7/15%. Platelet count 50,000. MCV 95. RDW 13.6. ALC low, lymphopenia. stool for occult blood negative. Units of PRBC ordered. Reticulocyte panel, LDH, haptoglobin ordered. TSH, B12 and folic acid ordered. Patient was last admitted in April 2020 for advanced hide EGD and colonoscopy as mentioned below EGD on 04/2024 Impressions : - No gross lesions in the duodenal bulb, in the first portion of the duodenum and in the second portion of the duodenum. No specimens collected. - Gastritis. Biopsied. - Small hiatal hernia. No specimens collected. - Z-line regular, 38 cm from the incisors. Biopsied. - The examination was otherwise normal. Patient was prescribed sucralfate twice daily and PPI Pathology shows mild gastritis, GE junction, chronic inflammation but negative for metaplasia.Negative for H. pylori Colonoscopy 05/04/2024 Impression: - Nodular mucosa at the appendiceal orifice. Biopsied. - Tortuous colon. No specimens collected. - Diverticulosis in the sigmoid colon. No specimens collected. - The examination was otherwise normal on direct and retroflexion views. 01/20: Reticulocyte panel shows low reticulocyte count suggestive of bone marrow suppression/no production. Pancytopenia. H&H 7.5/19%. Platelet count 32K, WBC2.2K. 1 unit of PRBC ordered as patient is symptomatic with dyspnea on exertion. B12 normal. Folic acid low. TSH normal. Advised to follow-up in hematology clinic. Started on thiamine and folic acid. 01/21: H&H 8.4/22.8%. Still has pancytopenia. 01/22: H&H 9.2/25.9%. CBC every other day to prevent blood loss from daily lab draw. 01/23: Blood counts are better. 01/24: Labs reviewed. H&H 8.8/25%. Platelet count 32K. WBC 3.8 thousand. Patient is discharged on ferrous sulfate. Advised follow-up hematology clinic 2. Fall, generalized weakness, ambulatory dysfunction: PT and OT ordered. CK is low suggestive of low muscle mass. AST 49 probably from chronic alcohol use. ALT normal. Left great toe second toe pain more than right great toe. Uric acid normal. X-ray of feet done which shows soft tissue swelling without acute fracture. Empirically IV Solu-Medrol started. 3. Severe hypokalemia and hypomagnesemia: IV potassium and magnesium replacement ordered. Serum phosphorus ordered. 01/20: Serum phosphorus level very low at 0.7. Still has hypokalemia. Magnesium normal. IV phosphate ordered. 01/21: Hypokalemia corrected, K4.9.. Discontinue potassium replacement. 01/23: Patient is doing well. On magnesium chloride. 01/24: K3.9. Normal daily potassium replacement. Electrolytes in normal range. 4. Acute on chronic hyponatremia: Serum sodium was 126 in August 2024. [id number]. Rapidly related to chronic alcohol use with decreased solute intake. IV normal saline ordered 01/22: Sodium is also better. Serum sodium 130. 01/24: Sodium is 131. Bicarb better 17.6. Continue sodium bicarb. 5. Increased anion gap metabolic acidosis: Bicarb is low at about 15.8, anion gap 20. But venous pH is normal 7.38 with with total CO2 17. Mixed pCO2 26.8. Hard to interpret rate with venous ABG. Seems most likely due to alcoholic ketoacidosis. 01/20: Bicarb 16, anion gap 14. Anion gap seems elevated as expected anion gap ofalbumin 3.1 about 9-10. Started on sodium bicarbonate tablet. 01/23: Patient on sodium bicarbonate tablet and magnesium chloride 01/24: Metabolic acid corrected 6. Right subcrepitant fracture in August 2023 when he had right total hip replacement then. No acute issues 7. Chronic cigarette smoking and chronic alcohol use dependence, [facility] 24-hour monitoring ordered. 8. DVT prophylaxis: Pharmacological prophylaxis contraindicated. Bilateral SCDs Discharge medication reconciliation done. Discharge follow-up instructions completed. Discharge process discussed with the patient and all questions wereanswered to patient's satisfaction. Follow with PCP in 1 to 2 weeks Total time spent, exact 35 minutes on discharge meds reconciliation, examination, coordination of care with nurses and ancillary staff, review of imaging and blood test and discussion with the patient on follow-up instructions. Living will/advanced directive/end of life care: Patient does not have living will or advanced directive. He does not have dilated power of managing attorney for health. After discussion of benefits/risks procedures involved with full code,DNR CC arrest and DNR CC, the patient opted for DNR CC arrest with no intubation Patient doesn't want artificial life support including intubation, tube feed, ventilator and/chest compression, central venous catheter, vasopressor and DC shock if needed Medications at Discharge Home Medications mirtazapine 7.5 mg tablet 7.5 mg PO QHS mental health 04/21/24 pantoprazole 40 mg tablet,delayed release (Protonix) 40 mg PO DAILY #30 tabs 04/26/24 ascorbic acid (vitamin C) 500 mg tablet 500 mg PO DAILY 01/19/25 losartan 100 mg tablet 100 mg PO QHS 01/19/25 ferrous sulfate 325 mg (65 mg iron) tablet 325 mg PO QODAY #30 tabs 01/24/25 folic acid 1 mg tablet 1 mg PO BREAKFAST #0 tabs 01/24/25 potassium chloride 20 mEq tablet,extended release(part/cryst) 20 meq PO DAILYCM 30 days #0 tabs 01/24/25 thiamine HCl (vitamin B1) 100 mg tablet 100 mg PO BREAKFAST #0 tabs 01/24/25 Physical Exam Narrative Please see progress note for the same date Weight / BMI Weight Weight: 163 lb 2.273 oz Body Mass Index (BMI) 23.3 ABG / Lab / Microbiology Data 01/24/25 05:19 01/24/25 05:19 Laboratory: Laboratory Results - last 24 hr 01/24/25 05:19: WBC 3.8 L, RBC 2.76 L, Hgb 8.8 L, Hct 25.1 L, MCV 90.9, MCH 31.9, MCHC 35.1, RDW Std Deviation 57.9 H, RDW Coeff of Adiel 17.4 H, Plt Count 32L*, MPV 10.9, Immature Gran % (Auto) 4.200 H, Neut % (Auto) 58.8, Lymph % (Auto)24.7, Tripp % (Auto) 11.5 H, Eos % (Auto) 0.5, Baso % (Auto) 0.3, Absolute Neuts (auto) 2.2, Absolute Lymphs (auto) 0.94, Nucleated RBC % 0, Differential CommentSCANNED, Platelet Estimate MKD DEC, Anisocytosis 1+, Bite Cells RARE, Acanthocytes (Spur) RARE, Sodium 131 L, Potassium 3.9, Chloride 104, Carbon Dioxide 17.6 L, Anion Gap 10, BUN 18, Creatinine 0.93, Estim Creat Clear Calc 83.95, Est GFR (MDRD) Non-Af 93, BUN/Creatinine Ratio 18.9, Glucose 117 H, Calcium 8.4, Iron 64 L, Iron Saturation 37.0, Unsaturated IBC 110 L Microbiology: Microbiology 01/19/25 09:16 Stool Stool Occult Blood (MARIZOL) - Final D/C Instructions DC O2, CPAP, BIPAP Needs Home O2 Discharge instructions: No Meaningful Use Info Meaningful Use Meaningful Use Diagnoses (Choose all that apply): None applicable Ischemic Stroke Statin Dosing Therapy Reference: STATIN DOSE THERAPY REFERENCE: * Patients > 75 years receive moderate or high dose statin therapy. * Patients 75 years or YOUNGER should receive HIGH intensity statin dose unless contraindicated. You will be required to document reason for non-treatment if statin daily dose does not meet guidelines. HIGH DOSE STATIN THERAPY DAILY Atorvastatin > than or = to 40 mg Rosuvastatin > than or = to 20 mg Amlodipine + Atorvastatin > than or = to 2.5/40 mg Ezetimibe + Simvastatin 10/80 mg Simvastatin 80mg Discharge Plan Admission Admit Date/Time: 01/19/25 10:30 Primary Reason for Your Visit: Severe anemia Attending Provider: Shorty Lea Primary Care Provider: Emanuel Macedo Chi Discharge Orders/Prescriptions Prescriptions: New thiamine HCl (vitamin B1) 100 mg Tablet 100 mg PO BREAKFAST Qty: 0 0RF potassium chloride 20 mEq Tablet,Er Particles/Crystals 20 meq PO DAILYCM 30 Days Qty: 0 0RF folic acid 1 mg Tablet 1 mg PO BREAKFAST Qty: 0 0RF ferrous sulfate 325 mg (65 mg iron) tablet 325 mg PO QODAY Qty: 30 2RF Continued mirtazapine 7.5 mg tablet 7.5 mg PO QHS pantoprazole [Protonix] 40 mg tablet,delayed release (DR/EC) 40 mg PO DAILY Qty: 30 0RF Patient Comments: PT ONLY TAKES NEEDED. ascorbic acid (vitamin C) 500 mg tablet 500 mg PO DAILY Patient Comments: PT ONLY TAKES WHEN HE THINKS ABOUT IT. losartan 100 mg tablet 100 mg PO QHS Patient Comments: PT DOES NOT TAKE ALL THE TIME. Referrals / Follow Up: Abiel Zabala MD [Med Staff - Active Staff] - Within 2 Weeks Emanuel Macedo Chi, MD [Primary Care Provider] - Disposition Disposition (needs filled in before D/C Order can be placed): Detention Facility Charges/Coding Visit Charges Inpatient E&M: 35493 Disch Hosp >30min 01/24/25 1630 <Electronically signed by Shorty Lea MD> Cosigner Signature (if applicable): CC: Dr. Shorty Lea MD; Dr. Emanuel Macedo MD~ Signed [facility] Work Phone: 1(288) 465-396405-12-2025 Discharge summary Author Shorty Lea [facility] Note Date/Time January 24, 2025 3:18p m [facility] Medical Records Department [address] [place] [id number] Transfer to [facility] MR#: [id number] Acct: [id number] Name: KIM CALDWELL Rep #:[id number] : 1960 64 From: Shorty Knight PCP: Dr. Emanuel Macedo MD Status:ADM I N Certification of patient admission REQUIRED AT TIME OF ADMISSION. I CERTIFY THAT POST-HOSPITAL F SERVICES ARE REQUIRED TO BE GIVEN ON AN IN-PATIENT BASIS BECAUSE OF THE ABOVE NAMED PATIENT'S NEED FOR PENITENTIARY CARE ON A CONTINUING BASIS FOR THE CONDITION(S) FOR WHICH HE/SHE WAS RECEIVING IN-PATIENT HOSPITAL SERVICES PRIOR TO HIS/HER TRANSFER TO THE [facility]. 01/24/25 1518<Electronically signed by Shorty Lea MD> Diet Diet Order/Speech Therapy: 01/19/25 11:55 Diet: Regular - General DC O2, CPAP, BIPAP needs Home O2 Discharge instructions: No Wound(s) buttocks: Wound Type: Pressure Injury Problem/Diagnosis (1) Chronic hyponatremia: Status: Chronic Code(s): E87.1 - Hypo-osmolality and hyponatremia Plan This 64-year-old gentleman being admitted for severe generalized weakness, gait instability for 1 that, fall today and found severe anemia thrombocytopenia in ED 1. Severe anemia and thrombocytopenia probably due to chronic alcoholism/BM suppression:. H&H 5.7/15%. Platelet count 50,000. MCV 95. RDW 13.6. ALC low, lymphopenia. stool for occult blood negative. Units of PRBC ordered. Reticulocyte panel, LDH, haptoglobin ordered. TSH, B12 and folic acid ordered. Patient was last admitted in April 2020 for advanced hide EGD and colonoscopy as mentioned below EGD on 04/2024 Impressions : - No gross lesions in the duodenal bulb, in the first portion of the duodenum and in the second portion of the duodenum. No specimens collected. - Gastritis. Biopsied. - Small hiatal hernia. No specimens collected. - Z-line regular, 38 cm from the incisors. Biopsied. - The examination was otherwise normal. Patient was prescribed sucralfate twice daily and PPI Pathology shows mild gastritis, GE junction, chronic inflammation but negative for metaplasia.Negative for H. pylori Colonoscopy 05/04/2024 Impression: - Nodular mucosa at the appendiceal orifice. Biopsied. - Tortuous colon. No specimens collected. - Diverticulosis in the sigmoid colon. No specimens collected. - The examination was otherwise normal on direct and retroflexion views. 01/20: Reticulocyte panel shows low reticulocyte count suggestive of bone marrow suppression/no production. Pancytopenia. H&H 7.5/19%. Platelet count 32K, WBC2.2K. 1 unit of PRBC ordered as patient is symptomatic with dyspnea on exertion. B12 normal. Folic acid low. TSH normal. Advised to follow-up in hematology clinic. Started on thiamine and folic acid. 01/21: H&H 8.4/22.8%. Still has pancytopenia. 01/22: H&H 9.2/25.9%. CBC every other day to prevent blood loss from daily lab draw. 01/23: Blood counts are better. 01/24: Labs reviewed. H&H 8.8/25%. Platelet count 32K. WBC 3.8 thousand. 2. Fall, generalized weakness, ambulatory dysfunction: PT and OT ordered. CK is low suggestive of low muscle mass. AST 49 probably from chronic alcohol use. ALT normal. Left great toe second toe pain more than right great toe. Uric acid normal. X- ray of feet done which shows soft tissue swelling without acute fracture. Empirically IV Solu-Medrol started. 3. Severe hypokalemia and hypomagnesemia: IV potassium and magnesium replacement ordered. Serum phosphorus ordered. 01/20: Serum phosphorus level very low at 0.7. Still has hypokalemia. Magnesium normal. IV phosphate ordered. 01/21: Hypokalemia corrected, K4.9.. Discontinue potassium replacement. 01/23: Patient is doing well. On magnesium chloride. 01/24: K3.9. Normal daily potassium replacement 4. Acute on chronic hyponatremia: Serum sodium was 126 in August 2024. [id number]. Rapidly related to chronic alcohol use with decreased solute intake. IV normal saline ordered 01/22: Sodium is also better. Serum sodium 130. 01/24: Sodium is 131. Bicarb better 17.6. Continue sodium bicarb. 5. Increased anion gap metabolic acidosis: Bicarb is low at about 15.8, anion gap 20. But venous pH is normal 7.38 with with total CO2 17. Mixed pCO2 26.8. Hard to interpret rate with venous ABG. Seems most likely due to alcoholic ketoacidosis. 01/20: Bicarb 16, anion gap 14. Anion gap seems elevated as expected anion gap ofalbumin 3.1 about 9-10. Started on sodium bicarbonate tablet. 01/23: Patient on sodium bicarbonate tablet and magnesium chloride 6. Right subcrepitant fracture in August 2023 when he had right total hip replacement then. No acute issues 7. Chronic cigarette smoking and chronic alcohol use dependence, [facility] 24-hour monitoring ordered. 8. DVT prophylaxis: Pharmacological prophylaxis contraindicated. Bilateral SCDs Living will/advanced directive/end of life care: Patient does not have living will or advanced directive. He does not have dilated power of managing attorney for health. After discussion of benefits/risks procedures involved with full code,DNR CC arrest and DNR CC, the patient opted for DNR CC arrest with no intubation Patient doesn't want artificial life support including intubation, tube feed, ventilator and/chest compression, central venous catheter, vasopressor and DC shock if needed Allergies/Procedures Done in Hospital Allergies No Known Allergies Allergy (Verified 08/16/23 05:09) Type of Care/Length of Stay Estimated LOS: Convalescent Care Less Than 30 days Type of Care Needed: Skilled Rehab Potential: Good Prognosis: Good Additional Orders/Day of Discharge Day of Discharge: 01/24/25 Dietary and Speech Recommendations Dietitian Recommendations/Changes: Continue regular diet and 120ml EPHP 4x dailywith medpass. Will monitor weight trends. Discharge Plan Admission Admit Date/Time: 01/19/25 10:30 Primary Reason for Your Visit: Severe anemia Attending Provider: Shorty Lea Primary Care Provider: Emanuel Macedo Chi Discharge Orders/Prescriptions Prescriptions: New thiamine HCl (vitamin B1) 100 mg Tablet 100 mg PO BREAKFAST Qty: 0 0RF potassium chloride 20 mEq Tablet,Er Particles/Crystals 20 meq PO DAILYCM 30 Days Qty: 0 0RF folic acid 1 mg Tablet 1 mg PO BREAKFAST Qty: 0 0RF ferrous sulfate 325 mg (65 mg iron) tablet 325 mg PO QODAY Qty: 30 2RF Continued mirtazapine 7.5 mg tablet 7.5 mg PO QHS pantoprazole [Protonix] 40 mg tablet,delayed release (DR/EC) 40 mg PO DAILY Qty: 30 0RF Patient Comments: PT ONLY TAKES NEEDED. ascorbic acid (vitamin C) 500 mg tablet 500 mg PO DAILY Patient Comments: PT ONLY TAKES WHEN HE THINKS ABOUT IT. losartan 100 mg tablet 100 mg PO QHS Patient Comments: PT DOES NOT TAKE ALL THE TIME. Referrals / Follow Up: Emanuel Macedo Chi, MD [Primary Care Provider] - Abiel Zabala MD [Med Staff - Active Staff] - Within 2 Weeks Disposition Disposition (needs filled in before D/C Order can be placed): Detention Facility 01/24/25 4427 <Electronically signed by Shorty Lea MD> Cosigner Signature (if applicable): CC: Dr. Emanuel Macedo MD ~ [facility] Work Phone: [phone]) 127-234105-12-2025 Discharge summary [facility] Medical Records Department [address] [place] [address] Discharge Summary 01/24/25 1629 MR#: [id number] Acct: [id number] Name: KIM CALDWELL Rep #:[id number] : 1960 64 From: Shorty Knight PCP: Dr. Emanuel Macedo MD Status:ADM I N Location: [place] [address] Providers Date of Admission: 01/19/25 Date of Discharge: 01/24/25 Primary Care Physician: Dr. Emanuel Macedo MD Reason For Visit: SEVERE HYPONATREMIA Diagnosis Discharge Diagnosis (1) Chronic hyponatremia: Status: Chronic Code(s): E87.1 - Hypo-osmolality and hyponatremia Plan This 64-year-old gentleman being admitted for severe generalized weakness, gait instability for 1 that, fall today and found severe anemia thrombocytopenia in ED 1. Severe anemia and thrombocytopenia probably due to chronic alcoholism/BM suppression:. H&H 5.7/15%. Platelet count 50,000. MCV 95. RDW 13.6. ALC low, lymphopenia. stool for occult blood negative. Units of PRBC ordered. Reticulocyte panel, LDH, haptoglobin ordered. TSH, B12 and folic acid ordered. Patient was last admitted in April 2020 for advanced hide EGD and colonoscopy as mentioned below EGD on 04/2024 Impressions : - No gross lesions in the duodenal bulb, in the first portion of the duodenum and in the second portion of the duodenum. No specimens collected. - Gastritis. Biopsied. - Small hiatal hernia. No specimens collected. - Z-line regular, 38 cm from the incisors. Biopsied. - The examination was otherwise normal. Patient was prescribed sucralfate twice daily and PPI Pathology shows mild gastritis, GE junction, chronic inflammation but negative for metaplasia.Negative for H. pylori Colonoscopy 05/04/2024 Impression: - Nodular mucosa at the appendiceal orifice. Biopsied. - Tortuous colon. No specimens collected. - Diverticulosis in the sigmoid colon. No specimens collected. - The examination was otherwise normal on direct and retroflexion views. 01/20: Reticulocyte panel shows low reticulocyte count suggestive of bone marrow suppression/no production. Pancytopenia. H&H 7.5/19%. Platelet count 32K, WBC2.2K. 1 unit of PRBC ordered as patientis symptomatic with dyspnea on exertion. B12 normal. Folic acid low. TSH normal. Advised to follow-up in hematology clinic. Started on thiamine and folic acid. 01/21: H&H 8.4/22.8%. Still has pancytopenia. 01/22: H&H 9.2/25.9%. CBC every other day to prevent blood loss from daily lab draw. 01/23: Blood counts are better. 01/24: Labs reviewed. H&H 8.8/25%. Platelet count 32K. WBC 3.8 thousand. Patient is discharged on ferrous sulfate. Advised follow-up hematology clinic 2. Fall, generalized weakness, ambulatory dysfunction: PT and OT ordered. CK is low suggestive of low muscle mass. AST 49 probably from chronic alcohol use. ALT normal. Left great toe second toe pain more than right great toe. Uric acid normal. X- ray of feet done which shows soft tissue swelling without acute fracture. Empirically IV Solu-Medrol started. 3. Severe hypokalemia and hypomagnesemia: IV potassium and magnesium replacement ordered. Serum phosphorus ordered. 01/20: Serum phosphorus level very low at 0.7. Still has hypokalemia. Magnesium normal. IV phosphate ordered. 01/21: Hypokalemia corrected, K4.9.. Discontinue potassium replacement. 01/23: Patient is doing well. On magnesium chloride. 01/24: K3.9. Normal daily potassium replacement. Electrolytes in normal range. 4. Acute on chronic hyponatremia: Serum sodium was 126 in August 2024. [id number]. Rapidly related to chronic alcohol use with decreased solute intake. IV normal saline ordered 01/22: Sodium is also better. Serum sodium 130. 01/24: Sodium is 131. Bicarb better 17.6. Continue sodium bicarb. 5. Increased anion gap metabolic acidosis: Bicarb is low at about 15.8, anion gap 20. But venous pHis normal 7.38 with with total CO2 17. Mixed pCO2 26.8. Hard to interpret rate with venous ABG. Seems most likely due to alcoholic ketoacidosis. 01/20: Bicarb 16, anion gap 14. Anion gap seems elevated as expected anion gap ofalbumin 3.1 about 9-10. Started on sodium bicarbonate tablet. 01/23: Patient on sodium bicarbonate tablet and magnesium chloride 01/24: Metabolic acid corrected 6. Right subcrepitant fracture in August 2023 when he had right total hip replacement then. No acute issues 7. Chronic cigarette smoking and chronic alcohol use dependence, [facility] 24-hour monitoring ordered. 8. DVT prophylaxis: Pharmacological prophylaxis contraindicated. Bilateral SCDs Discharge medication reconciliation done. Discharge follow-up instructions completed. Discharge process discussed with the patient and all questions wereanswered to patient's satisfaction. Follow with PCP in 1 to 2 weeks Total time spent, exact 35 minutes on discharge meds reconciliation, examination, coordination of care with nurses and ancillary staff, review of imaging and blood test and discussion with the patient on follow-up instructions. Living will/advanced directive/end of life care: Patient does not have living will or advanced directive. He does not have dilated power of managing attorney for health. After discussion of benefits/risks procedures involved with full code,DNR CC arrest and DNR CC, the patient opted for DNR CC arrest with no intubation Patient doesn't want artificial life support including intubation, tube feed, ventilator and/chest compression, central venous catheter, vasopressor and DC shock if needed Medications at Discharge Home Medications mirtazapine 7.5 mg tablet 7.5 mg PO QHS mental health 04/21/24 pantoprazole 40 mg tablet,delayed release (Protonix) 40 mg PO DAILY #30 tabs 04/26/24 ascorbic acid (vitamin C) 500 mg tablet 500 mg PO DAILY 01/19/25 losartan 100 mg tablet 100 mg PO QHS 01/19/25 ferrous sulfate 325 mg (65 mg iron) tablet 325 mg PO QODAY #30 tabs 01/24/25 folic acid 1 mg tablet 1 mg PO BREAKFAST #0 tabs 01/24/25 potassium chloride 20 mEq tablet,extended release(part/cryst) 20 meq PO DAILYCM 30 days #0 tabs 01/24/25 thiamine HCl (vitamin B1) 100 mg tablet 100 mg PO BREAKFAST #0 tabs 01/24/25 Physical Exam Narrative Please see progress note for the same date Weight / BMI Weight Weight: 163 lb 2.273 oz Body Mass Index (BMI) 23.3 ABG / Lab / Microbiology Data 01/24/25 05:19 01/24/25 05:19 Laboratory: Laboratory Results - last 24 hr 01/24/25 05:19: WBC 3.8 L, RBC 2.76 L, Hgb 8.8 L, Hct 25.1 L, MCV 90.9, MCH 31.9, MCHC 35.1, RDW Std Deviation 57.9 H, RDW Coeff of Adiel 17.4 H, Plt Count 32L*, MPV 10.9, Immature Gran % (Auto) 4.200 H, Neut % (Auto) 58.8, Lymph % (Auto)24.7, Tripp % (Auto) 11.5 H, Eos % (Auto) 0.5, Baso % (Auto) 0.3, Absolute Neuts (auto) 2.2, Absolute Lymphs (auto) 0.94, Nucleated RBC % 0, Differential CommentSCANNED, Platelet Estimate MKD DEC, Anisocytosis 1+, Bite Cells RARE, Acanthocytes (Spur) RARE, Sodium 131 L, Potassium 3.9, Chloride 104, Carbon Dioxide 17.6 L, Anion Gap 10, BUN 18, Creatinine 0.93, Estim Creat Clear Calc 83.95, Est GFR (MDRD) Non-Af 93, BUN/Creatinine Ratio 18.9, Glucose 117 H, Calci um 8.4, Iron 64 L, Iron Saturation 37.0, Unsaturated IBC 110 L Microbiology: Microbiology 01/19/25 09:16 Stool Stool Occult Blood (MARIZOL) - Final D/C Instructions DC O2, CPAP, BIPAP Needs Home O2 Discharge instructions: No Meaningful Use Info Meaningful Use Meaningful Use Diagnoses (Choose all that apply): None applicable Ischemic Stroke Statin Dosing Therapy Reference: STATIN DOSE THERAPY REFERENCE: * Patients > 75 years receive moderate or high dose statin therapy. * Patients 75 years or YOUNGER should receive HIGH intensity statin dose unless contraindicated. You will be required to document reason for non-treatment if statin daily dose does not meet guidelines. HIGH DOSE STATIN THERAPY DAILY Atorvastatin > than or = to 40 mg Rosuvastatin > than or = to 20 mg Amlodipine + Atorvastatin > than or = to 2.5/40 mg Ezetimibe + Simvastatin 10/80 mg Simvastatin 80mg Discharge Plan Admission Admit Date/Time: 01/19/25 10:30 Primary Reason for Your Visit: Severe anemia Attending Provider: Shorty Lea Primary Care Provider: Emanuel Macedo Chi Discharge Orders/Prescriptions Prescriptions: New thiamine HCl (vitamin B1) 100 mg Tablet 100 mg PO BREAKFAST Qty: 0 0RF potassium chloride 20 mEq Tablet,Er Particles/Crystals 20 meq PO DAILYCM 30 Days Qty: 0 0RF folic acid 1 mg Tablet 1 mg PO BREAKFAST Qty: 0 0RF ferrous sulfate 325 mg (65 mg iron) tablet 325 mg PO QODAY Qty: 30 2RF Continued mirtazapine 7.5 mg tablet 7.5 mg PO QHS pantoprazole [Protonix] 40 mg tablet,delayed release (DR/EC) 40 mg PO DAILY Qty: 30 0RF Patient Comments: PT ONLY TAKES NEEDED. ascorbic acid (vitamin C) 500 mg tablet 500 mg PO DAILY Patient Comments: PT ONLY TAKES WHEN HE THINKS ABOUT IT. losartan 100 mg tablet 100 mg PO QHS Patient Comments: PT DOES NOT TAKE ALL THE TIME. Referrals / Follow Up: Abiel Zabala MD [Med Staff - Active Staff] - Within 2 Weeks Emanuel Macedo Chi, MD [Primary Care Provider] - Disposition Disposition (needs filled in before D/C Order can be placed): Detention Facility Charges/Coding Visit Charges Inpatient E&M: 06723 Disch Hosp >30min 01/24/25 1630 Cosigner Signature (if applicable): CC: Dr. Shorty Lea MD; Dr. Emanuel Macedo MD~ Signed [facility]05-12-20[facility] Discharge summary [facility] Medical Records Department [address] [place] [address] Transfer to [facility] MR#: [id number] Acct: [id number] Name: KIM CALDWELL Rep #:[id number] : 1960 64 From: Shorty Knight PCP: Dr. Emanuel Macedo MD Status:ADM I N Certification of patient admission REQUIRED AT TIME OF ADMISSION. I CERTIFY THAT POST-HOSPITAL F SERVICES ARE REQUIRED TO BE GIVEN ON AN IN-PATIENT BASIS BECAUSE OF THE ABOVE NAMED PATIENT'S NEED FOR PENITENTIARY CARE ON A CONTINUING BASIS FOR THE CONDITION(S) FOR WHICH HE/SHE WAS RECEIVING IN-PATIENT HOSPITAL SERVICES PRIOR TO HIS/HER TRANSFER TO THE F. 01/24/25 1518 Diet Diet Order/Speech Therapy: 01/19/25 11:55 Diet: Regular - General DC O2, CPAP, BIPAP needs Home O2 Discharge instructions: No Wound(s) buttocks: Wound Type: Pressure Injury Problem/Diagnosis (1) Chronic hyponatremia: Status: Chronic Code(s): E87.1 - Hypo-osmolality and hyponatremia Plan This 64-year-old gentleman being admitted for severe generalized weakness, gait instability for 1 that, fall today and found severe anemia thrombocytopenia in ED 1. Severe anemia and thrombocytopenia probably due to chronic alcoholism/BM suppression:. H&H 5.7/15%. Platelet count 50,000. MCV 95. RDW 13.6. ALC low, lymphopenia. stool for occult blood negative. Units of PRBC ordered. Reticulocyte panel, LDH, haptoglobin ordered. TSH, B12 and folic acid ordered. Patient was last admitted in April 2020 for advanced hide EGD and colonoscopy as mentioned below EGD on 04/2024 Impressions : - No gross lesions in the duodenal bulb, in the first portion of the duodenum and in the second portion of the duodenum. No specimens collected. - Gastritis. Biopsied. - Small hiatal hernia. No specimens collected. - Z-line regular, 38 cm from the incisors. Biopsied. - The examination was otherwise normal. Patient was prescribed sucralfate twice daily and PPI Pathology shows mild gastritis, GE junction, chronic inflammation but negative for metaplasia.Negative for H. pylori Colonoscopy 05/04/2024 Impression: - Nodular mucosa at the appendiceal orifice. Biopsied. - Tortuous colon. No specimens collected. - Diverticulosis in the sigmoid colon. No specimens collected. - The examination was otherwise normal on direct and retroflexion views. 01/20: Reticulocyte panel shows low reticulocyte count suggestive of bone marrow suppression/no production. Pancytopenia. H&H 7.5/19%. Platelet count 32K, WBC2.2K. 1 unit of PRBC ordered as patientis symptomatic with dyspnea on exertion. B12 normal. Folic acid low. TSH normal. Advised to follow-up in hematology clinic. Started on thiamine and folic acid. 01/21: H&H 8.4/22.8%. Still has pancytopenia. 01/22: H&H 9.2/25.9%. CBC every other day to prevent blood loss from daily lab draw. 01/23: Blood counts are better. 01/24: Labs reviewed. H&H 8.8/25%. Platelet count 32K. WBC 3.8 thousand. 2. Fall, generalized weakness, ambulatory dysfunction: PT and OT ordered. CK is low suggestive of low muscle mass. AST 49 probably from chronic alcohol use. ALT normal. Left great toe second toe pain more than right great toe. Uric acid normal. X- ray of feet done which shows soft tissue swelling without acute fracture. Empirically IV Solu-Medrol started. 3. Severe hypokalemia and hypomagnesemia: IV potassium and magnesium replacement ordered. Serum phosphorus ordered. 01/20: Serum phosphorus level very low at 0.7. Still has hypokalemia. Magnesium normal. IV phosphate ordered. 01/21: Hypokalemia corrected, K4.9.. Discontinue potassium replacement. 01/23: Patient is doing well. On magnesium chloride. 01/24: K3.9. Normal daily potassium replacement 4. Acute on chronic hyponatremia: Serum sodium was 126 in August 2024. [id number]. Rapidly related to chronic alcohol use with decreased solute intake. IV normal saline ordered 01/22: Sodium is also better. Serum sodium 130. 01/24: Sodium is 131. Bicarb better 17.6. Continue sodium bicarb. 5. Increased anion gap metabolic acidosis: Bicarb is low at about 15.8, anion gap 20. But venous pHis normal 7.38 with with total CO2 17. Mixed pCO2 26.8. Hard to interpret rate with venous ABG. Seems most likely due to alcoholic ketoacidosis. 01/20: Bicarb 16, anion gap 14. Anion gap seems elevated as expected anion gap ofalbumin 3.1 about 9-10. Started on sodium bicarbonate tablet. 01/23: Patient on sodium bicarbonate tablet and magnesium chloride 6. Right subcrepitant fracture in August 2023 when he had right total hip replacement then. No acute issues 7. Chronic cigarette smoking and chronic alcohol use dependence, [facility] 24-hour monitoring ordered. 8. DVT prophylaxis: Pharmacological prophylaxis contraindicated. Bilateral SCDs Living will/advanced directive/end of life care: Patient does not have living will or advanced directive. He does not have dilated power of managing attorney for health. After discussion of benefits/risks procedures involved with full code,DNR CC arrest and DNR CC, the patient opted for DNR CC arrest with no intubation Patient doesn't want artificial life support including intubation, tube feed, ventilator and/chest compression, central venous catheter, vasopressor and DC shock if needed Allergies/Procedures Done in Hospital Allergies No Known Allergies Allergy (Verified 08/16/23 05:09) Type of Care/Length of Stay Estimated LOS: Convalescent Care Less Than 30 days Type of Care Needed: Skilled Rehab Potential: Good Prognosis: Good Additional Orders/Day of Discharge Day of Discharge: 01/24/25 Dietary and Speech Recommendations Dietitian Recommendations/Changes: Continue regular diet and 120ml EPHP 4x dailywith medpass. Will monitor weight trends. Discharge Plan Admission Admit Date/Time: 01/19/25 10:30 Primary Reason for Your Visit: Severe anemia Attending Provider: Shorty Lea Primary Care Provider: Emanuel Macedo Chi Discharge Orders/Prescriptions Prescriptions: New thiamine HCl (vitamin B1) 100 mg Tablet 100 mg PO BREAKFAST Qty: 0 0RF potassium chloride 20 mEq Tablet,Er Particles/Crystals 20 meq PO DAILYCM 30 Days Qty: 0 0RF folic acid 1 mg Tablet 1 mg PO BREAKFAST Qty: 0 0RF ferrous sulfate 325 mg (65 mg iron) tablet 325 mg PO QODAY Qty: 30 2RF Continued mirtazapine 7.5 mg tablet 7.5 mg PO QHS pantoprazole [Protonix] 40 mg tablet,delayed release (DR/EC) 40 mg PO DAILY Qty: 30 0RF Patient Comments: PT ONLY TAKES NEEDED. ascorbic acid (vitamin C) 500 mg tablet 500 mg PO DAILY Patient Comments: PT ONLY TAKES WHEN HE THINKS ABOUT IT. losartan 100 mg tablet 100 mg PO QHS Patient Comments: PT DOES NOT TAKE ALL THE TIME. Referrals / Follow Up: Emanuel Macedo Chi, MD [Primary Care Provider] - Abiel Zabala MD [Med Staff - Active Staff] - Within 2 Weeks Disposition Disposition (needs filled in before D/C Order can be placed): Detention Facility 01/24/25 1518 Cosigner Signature (if applicable): CC: Dr. Emanuel Macedo MD ~ [facility]05-12-2025 Progress note Author Shorty Lea [facility] Note Date/Time January 24, 2025 12:04 pm [facility] Medical Records Department [address] [address] Progress Note - Hospitalist 01/24/25 1152 MR#: [id number] Acct: [id number] Name: KIM CALDWELL Rep #:[id number] : 1960 64 From: Shorty Knight PCP: Dr. Emanuel Macedo MD Status:ADM I N Location: [place] [address] Reason for Visit Reason for Visit: Diagnoses Hypo-osmolality and hyponatremia (01/19/25) Objective Data Objective Data Vital Signs: Vital Signs Temp Pulse Resp BP Pulse Ox O2 Del Method 98.5 F 90 18 118/85 H 100 Room Air 01/24/25 09:17 01/24/25 09:17 01/24/25 09:17 01/24/25 09:17 01/24/25 09:17 01/24/25 09:17 Oxygen Delivery Method Room Air Weight: 163 lb 2.273 oz Body Mass Index (BMI) 23.3 Intake & Output: Intake and Output for Last 24 Hours 01/22/25 01/23/25 01/24/25 23:59 23:59 23:59 Intake Total 960 / 960 840 / 840 Balance 960 / 960 840 / 840 Lab / Micro Data 01/24/25 05:19 01/24/25 05:19 Labs: Laboratory Results - last 24 hr 01/24/25 05:19: WBC 3.8 L, RBC 2.76 L, Hgb 8.8 L, Hct 25.1 L, MCV 90.9, MCH 31.9, MCHC 35.1, RDW Std Deviation 57.9 H, RDW Coeff of Adiel 17.4 H, Plt Count 32L*, MPV 10.9, Immature Gran % (Auto) 4.200 H, Neut % (Auto) 58.8, Lymph % (Auto)24.7, Tripp % (Auto) 11.5 H, Eos % (Auto) 0.5, Baso % (Auto) 0.3, Absolute Neuts (auto) 2.2, Absolute Lymphs (auto) 0.94, Nucleated RBC % 0, Differential CommentSCANNED, Platelet Estimate MKD DEC, Anisocytosis 1+, Bite Cells RARE, Acanthocytes (Spur) RARE, Sodium 131 L, Potassium 3.9, Chloride 104, Carbon Dioxide 17.6 L, Anion Gap 10, BUN 18, Creatinine 0.93, Estim Creat Clear Calc 83.95, Est GFR (MDRD) Non-Af 93, BUN/Creatinine Ratio 18.9, Glucose 117 H, Calcium 8.4 Micro: Microbiology 01/19/25 09:16 Stool Stool Occult Blood (MARIZOL) - Final Physical Exam Narrative Left great toe and second toe pain has improved. Denies any prior history of gout. Hemoglobin 8.8. WBC count and platelet similar. Physical exam General: Alert, Oriented x3, Cooperative. HEENT: Pale conjunctiva. Atraumatic, PERRLA, EOMI, Normocephalic. Oral: Oral mucosa dry. No Gingival or Mucosal Lesions/ Ulcerations Neck: Supple, No JVD, Negative Carotid Bruits Chest wall/Lungs: Air entry diminished in bilateral lung bases. Lungs clear. Cardiovascular: Regular rate and rhythm, Normal S1,S2, No M/G/R Abdomen: Bowel Sounds Present, Soft, Non Tender, Non-Distended : No dysuria. No renal angle tenderness. No suprapubic tenderness. Extremities: No edema, Capillary Refill Less than 3 Seconds Skin: No rashes, No breakdown Musculoskeletal: Tenderness in bilateral forefeet has much improved. Neurological: Cranial nerves II-XII grossly intact, DTR 2+/4. No acute focal neurological deficit. Psych/Mental Status: Normal Affect, Appropriate. Assessment & Plan Assessment/Plan (1) Chronic hyponatremia: PLAN: Plan This 64-year-old gentleman being admitted for severe generalized weakness, gait instability for 1 that, fall today and found severe anemia thrombocytopenia in ED 1. Severe anemia and thrombocytopenia probably due to chronic alcoholism/BM suppression:. H&H 5.7/15%. Platelet count 50,000. MCV 95. RDW 13.6. ALC low, lymphopenia. stool for occult blood negative. Units of PRBC ordered. Reticulocyte panel, LDH, haptoglobin ordered. TSH, B12 and folic acid ordered. Patient was last admitted in April 2020 for advanced hide EGD and colonoscopy as mentioned below EGD on 04/2024 Impressions : - No gross lesions in the duodenal bulb, in the first portion of the duodenum and in the second portion of the duodenum. No specimens collected. - Gastritis. Biopsied. - Small hiatal hernia. No specimens collected. - Z-line regular, 38 cm from the incisors. Biopsied. - The examination was otherwise normal. Patient was prescribed sucralfate twice daily and PPI Pathology shows mild gastritis, GE junction, chronic inflammation but negative for metaplasia.Negative for H. pylori Colonoscopy 05/04/2024 Impression: - Nodular mucosa at the appendiceal orifice. Biopsied. - Tortuous colon. No specimens collected. - Diverticulosis in the sigmoid colon. No specimens collected. - The examination was otherwise normal on direct and retroflexion views. 01/20: Reticulocyte panel shows low reticulocyte count suggestive of bone marrow suppression/no production. Pancytopenia. H&H 7.5/19%. Platelet count 32K, WBC2.2K. 1 unit of PRBC ordered as patient is symptomatic with dyspnea on exertion. B12 normal. Folic acid low. TSH normal. Advised to follow-up in hematology clinic. Started on thiamine and folic acid. 01/21: H&H 8.4/22.8%. Still has pancytopenia. 01/22: H&H 9.2/25.9%. CBC every other day to prevent blood loss from daily lab draw. 01/23: Blood counts are better. 01/24: Labs reviewed. H&H 8.8/25%. Platelet count 32K. WBC 3.8 thousand. 2. Fall, generalized weakness, ambulatory dysfunction: PT and OT ordered. CK is low suggestive of low muscle mass. AST 49 probably from chronic alcohol use. ALT normal. Left great toe second toe pain more than right great toe. Uric acid normal. X- ray of feet done which shows soft tissue swelling without acute fracture. Empirically IV Solu-Medrol started. 3. Severe hypokalemia and hypomagnesemia: IV potassium and magnesium replacement ordered. Serum phosphorus ordered. 01/20: Serum phosphorus level very low at 0.7. Still has hypokalemia. Magnesium normal. IV phosphate ordered. 01/21: Hypokalemia corrected, K4.9.. Discontinue potassium replacement. 01/23: Patient is doing well. On magnesium chloride. 01/24: K3.9. Normal daily potassium replacement 4. Acute on chronic hyponatremia: Serum sodium was 126 in August 2024. [id number]. Rapidly related to chronic alcohol use with decreased solute intake. IV normal saline ordered 01/22: Sodium is also better. Serum sodium 130. 01/24: Sodium is 131. Bicarb better 17.6. Continue sodium bicarb. 5. Increased anion gap metabolic acidosis: Bicarb is low at about 15.8, anion gap 20. But venous pH is normal 7.38 with with total CO2 17. Mixed pCO2 26.8. Hard to interpret rate with venous ABG. Seems most likely due to alcoholic ketoacidosis. 01/20: Bicarb 16, anion gap 14. Anion gap seems elevated as expected anion gap ofalbumin 3.1 about 9-10. Started on sodium bicarbonate tablet. 01/23: Patient on sodium bicarbonate tablet and magnesium chloride 6. Right subcrepitant fracture in August 2023 when he had right total hip replacement then. No acute issues 7. Chronic cigarette smoking and chronic alcohol use dependence, [facility] 24-hour monitoring ordered. 8. DVT prophylaxis: Pharmacological prophylaxis contraindicated. Bilateral SCDs Living will/advanced directive/end of life care: Patient does not have living will or advanced directive. He does not have dilated power of managing attorney for health. After discussion of benefits/risks procedures involved with full code,DNR CC arrest and DNR CC, the patient opted for DNR CC arrest with no intubation Patient doesn't want artificial life support including intubation, tube feed, ventilator and/chest compression, central venous catheter, vasopressor and DC shock if needed Charges/Coding Visit Charges Inpatient E&M: 38156 Subs Hosp L2 01/24/25 1203 <Electronically signed by Shorty Lea MD> Cosigner Signature (if applicable): CC: ~ Signed [facility] Work Phone: 1(341) 588-769505-12-2025 Progress note [facility] Medical Records Department [address] [place] [id number] Progress Note - Hospitalist 01/24/25 1152 MR#: [id number] Acct: [id number] Name: KIM CALDWELL Rep #:[id number] : 1960 64 From: Shorty Knight PCP: Dr. Emanuel Macedo MD Status:ADM I N Location: [place] [address] Reason for Visit Reason for Visit: Diagnoses Hypo-osmolality and hyponatremia (01/19/25) Objective Data Objective Data Vital Signs: Vital Signs Temp Pulse Resp BP Pulse Ox O2 Del Method 98.5 F 90 18 118/85 H 100 Room Air 01/24/25 09:17 01/24/25 09:17 01/24/25 09:17 01/24/25 09:17 01/24/25 09:17 01/24/25 09:17 Oxygen Delivery Method Room Air Weight: 163 lb 2.273 oz Body Mass Index (BMI) 23.3 Intake & Output: Intake and Output for Last 24 Hours 01/22/25 01/23/25 01/24/25 23:59 23:59 23:59 Intake Total 960 / 960 840 / 840 Balance 960 / 960 840 / 840 Lab / Micro Data 01/24/25 05:19 01/24/25 05:19 Labs: Laboratory Results - last 24 hr 01/24/25 05:19: WBC 3.8 L, RBC 2.76 L, Hgb 8.8 L, Hct 25.1 L, MCV 90.9, MCH 31.9, MCHC 35.1, RDW Std Deviation 57.9 H, RDW Coeff of Adiel 17.4 H, Plt Count 32L*, MPV 10.9, Immature Gran % (Auto) 4.200 H, Neut % (Auto) 58.8, Lymph % (Auto)24.7, Tripp % (Auto) 11.5 H, Eos % (Auto) 0.5, Baso % (Auto) 0.3, Absolute Neuts (auto) 2.2, Absolute Lymphs (auto) 0.94, Nucleated RBC % 0, Differential CommentSCANNED, Platelet Estimate MKD DEC, Anisocytosis 1+, Bite Cells RARE, Acanthocytes (Spur) RARE, Sodium 131 L, Potassium 3.9, Chloride 104, Carbon Dioxide 17.6 L, Anion Gap 10, BUN 18, Creatinine 0.93, Estim Creat Clear Calc 83.95, Est GFR (MDRD) Non-Af 93, BUN/Creatinine Ratio 18.9, Glucose 117 H, Calci um 8.4 Micro: Microbiology 01/19/25 09:16 Stool Stool Occult Blood (MARIZOL) - Final Physical Exam Narrative Left great toe and second toe pain has improved. Denies any prior history of gout. Hemoglobin 8.8. WBC count and platelet similar. Physical exam General: Alert, Oriented x3, Cooperative. HEENT: Pale conjunctiva. Atraumatic, PERRLA, EOMI, Normocephalic. Oral: Oral mucosa dry. No Gingival or Mucosal Lesions/ Ulcerations Neck: Supple, No JVD, Negative Carotid Bruits Chest wall/Lungs: Air entry diminished in bilateral lung bases. Lungs clear. Cardiovascular: Regular rate and rhythm, Normal S1,S2, No M/G/R Abdomen: Bowel Sounds Present, Soft, Non Tender, Non-Distended : No dysuria. No renal angle tenderness. No suprapubic tenderness. Extremities: No edema, Capillary Refill Less than 3 Seconds Skin: No rashes, No breakdown Musculoskeletal: Tenderness in bilateral forefeet has much improved. Neurological: Cranial nerves II-XII grossly intact, DTR 2+/4. No acute focal neurological deficit. Psych/Mental Status: Normal Affect, Appropriate. Assessment & Plan Assessment/Plan (1) Chronic hyponatremia: PLAN: Plan This 64-year-old gentleman being admitted for severe generalized weakness, gait instability for 1 that, fall today and found severe anemia thrombocytopenia in ED 1. Severe anemia and thrombocytopenia probably due to chronic alcoholism/BM suppression:. H&H 5.7/15%. Platelet count 50,000. MCV 95. RDW 13.6. ALC low, lymphopenia. stool for occult blood negative. Units of PRBC ordered. Reticulocyte panel, LDH, haptoglobin ordered. TSH, B12 and folic acid ordered. Patient was last admitted in April 2020 for advanced hide EGD and colonoscopy as mentioned below EGD on 04/2024 Impressions : - No gross lesions in the duodenal bulb, in the first portion of the duodenum and in the second portion of the duodenum. No specimens collected. - Gastritis. Biopsied. - Small hiatal hernia. No specimens collected. - Z-line regular, 38 cm from the incisors. Biopsied. - The examination was otherwise normal. Patient was prescribed sucralfate twice daily and PPI Pathology shows mild gastritis, GE junction, chronic inflammation but negative for metaplasia.Negative for H. pylori Colonoscopy 05/04/2024 Impression: - Nodular mucosa at the appendiceal orifice. Biopsied. - Tortuous colon. No specimens collected. - Diverticulosis in the sigmoid colon. No specimens collected. - The examination was otherwise normal on direct and retroflexion views. 01/20: Reticulocyte panel shows low reticulocyte count suggestive of bone marrow suppression/no production. Pancytopenia. H&H 7.5/19%. Platelet count 32K, WBC2.2K. 1 unit of PRBC ordered as patientis symptomatic with dyspnea on exertion. B12 normal. Folic acid low. TSH normal. Advised to follow-up in hematology clinic. Started on thiamine and folic acid. 01/21: H&H 8.4/22.8%. Still has pancytopenia. 01/22: H&H 9.2/25.9%. CBC every other day to prevent blood loss from daily lab draw. 01/23: Blood counts are better. 01/24: Labs reviewed. H&H 8.8/25%. Platelet count 32K. WBC 3.8 thousand. 2. Fall, generalized weakness, ambulatory dysfunction: PT and OT ordered. CK is low suggestive of low muscle mass. AST 49 probably from chronic alcohol use. ALT normal. Left great toe second toe pain more than right great toe. Uric acid normal. X- ray of feet done which shows soft tissue swelling without acute fracture. Empirically IV Solu-Medrol started. 3. Severe hypokalemia and hypomagnesemia: IV potassium and magnesium replacement ordered. Serum phosphorus ordered. 01/20: Serum phosphorus level very low at 0.7. Still has hypokalemia. Magnesium normal. IV phosphate ordered. 01/21: Hypokalemia corrected, K4.9.. Discontinue potassium replacement. 01/23: Patient is doing well. On magnesium chloride. 01/24: K3.9. Normal daily potassium replacement 4. Acute on chronic hyponatremia: Serum sodium was 126 in August 2024. [id number]. Rapidly related to chronic alcohol use with decreased solute intake. IV normal saline ordered 01/22: Sodium is also better. Serum sodium 130. 01/24: Sodium is 131. Bicarb better 17.6. Continue sodium bicarb. 5. Increased anion gap metabolic acidosis: Bicarb is low at about 15.8, anion gap 20. But venous pHis normal 7.38 with with total CO2 17. Mixed pCO2 26.8. Hard to interpret rate with venous ABG. Seems most likely due to alcoholic ketoacidosis. 01/20: Bicarb 16, anion gap 14. Anion gap seems elevated as expected anion gap ofalbumin 3.1 about 9-10. Started on sodium bicarbonate tablet. 01/23: Patient on sodium bicarbonate tablet and magnesium chloride 6. Right subcrepitant fracture in August 2023 when he had right total hip replacement then. No acute issues 7. Chronic cigarette smoking and chronic alcohol use dependence, [facility] 24-hour monitoring ordered. 8. DVT prophylaxis: Pharmacological prophylaxis contraindicated. Bilateral SCDs Living will/advanced directive/end of life care: Patient does not have living will or advanced directive. He does not have dilated power of managing attorney for health. After discussion of benefits/risks procedures involved with full code,DNR CC arrest and DNR CC, the patient opted for DNR CC arrest with no intubation Patient doesn't want artificial life support including intubation, tube feed, ventilator and/chest compression, central venous catheter, vasopressor and DC shock if needed Charges/Coding Visit Charges Inpatient E&M: 87676 Subs Hosp L2 01/24/25 1204 Cosigner Signature (if applicable): CC: ~ Signed [facility]05-11-2025 Progress note Author Shorty Lea [facility] Note Date/Time January 23, 2025 12:[address] [facility] Medical Records Department [address] [place] [id number] Progress Note - Hospitalist 01/23/25 1242 MR#: [id number] Acct: [id number] Name: KIM CALDWELL Rep #:[id number] : 1960 64 From: Shorty Knight PCP: Dr. Emanuel Macedo MD Status:ADM I N Location: [place] [address] Reason for Visit Reason for Visit: Diagnoses Hypo-osmolality and hyponatremia (01/19/25) Objective Data Objective Data Vital Signs: Vital Signs Temp Pulse Resp BP Pulse Ox O2 Del Method 97.8 F 78 16 138/88 H 100 Room Air 01/23/25 09:35 01/23/25 09:35 01/23/25 09:35 01/23/25 09:35 01/23/25 09:35 01/23/25 09:35 Oxygen Delivery Method Room Air Weight: 175 lb 4.28 oz Body Mass Index (BMI) 25.1 Intake & Output: Intake and Output for Last 24 Hours 01/21/25 01/22/25 01/23/25 23:59 23:59 23:59 Intake Total 900 / 900 960 / 960 Output Total 2049 Balance -1150 / -1150 960 / 960 Lab / Micro Data 01/22/25 06:32 01/22/25 06:32 Micro: Microbiology 01/19/25 09:16 Stool Stool Occult Blood (MARIZOL) - Final Physical Exam Narrative Left great toe and second toe pain has improved. Denies any prior history of gout. Hemoglobin improved. Physical exam General: Alert, Oriented x3, Cooperative. HEENT: Pale conjunctiva. Atraumatic, PERRLA, EOMI, Normocephalic. Oral: Oral mucosa dry. No Gingival or Mucosal Lesions/ Ulcerations Neck: Supple, No JVD, Negative Carotid Bruits Chest wall/Lungs: Air entry diminished in bilateral lung bases. Lungs clear. Cardiovascular: Regular rate and rhythm, Normal S1,S2, No M/G/R Abdomen: Bowel Sounds Present, Soft, Non Tender, Non-Distended : No dysuria. No renal angle tenderness. No suprapubic tenderness. Extremities: No edema, Capillary Refill Less than 3 Seconds Skin: No rashes, No breakdown Musculoskeletal: Mild tenderness over left great toe and second toe, on ankle joint/calcaneal talar joint. Similar tenderness on right great and second toe but less than left foot. Neurological: Cranial nerves II-XII grossly intact, DTR 2+/4. No acute focal neurological deficit. Psych/Mental Status: Normal Affect, Appropriate. Assessment & Plan Assessment/Plan (1) Chronic hyponatremia: PLAN: Plan This 64-year-old gentleman being admitted for severe generalized weakness, gait instability for 1 that, fall today and found severe anemia thrombocytopenia in ED 1. Severe anemia and thrombocytopenia probably due to chronic alcoholism/BM suppression:. H&H 5.7/15%. Platelet count 50,000. MCV 95. RDW 13.6. ALC low, lymphopenia. stool for occult blood negative. Units of PRBC ordered. Reticulocyte panel, LDH, haptoglobin ordered. TSH, B12 and folic acid ordered. Patient was last admitted in April 2020 for advanced hide EGD and colonoscopy as mentioned below EGD on 04/2024 Impressions : - No gross lesions in the duodenal bulb, in the first portion of the duodenum and in the second portion of the duodenum. No specimens collected. - Gastritis. Biopsied. - Small hiatal hernia. No specimens collected. - Z-line regular, 38 cm from the incisors. Biopsied. - The examination was otherwise normal. Patient was prescribed sucralfate twice daily and PPI Pathology shows mild gastritis, GE junction, chronic inflammation but negative for metaplasia.Negative for H. pylori Colonoscopy 05/04/2024 Impression: - Nodular mucosa at the appendiceal orifice. Biopsied. - Tortuous colon. No specimens collected. - Diverticulosis in the sigmoid colon. No specimens collected. - The examination was otherwise normal on direct and retroflexion views. 01/20: Reticulocyte panel shows low reticulocyte count suggestive of bone marrow suppression/no production. Pancytopenia. H&H 7.5/19%. Platelet count 32K, WBC2.2K. 1 unit of PRBC ordered as patient is symptomatic with dyspnea on exertion. B12 normal. Folic acid low. TSH normal. Advised to follow-up in hematology clinic. Started on thiamine and folic acid. 01/21: H&H 8.4/22.8%. Still has pancytopenia. 01/22: H&H 9.2/25.9%. CBC every other day to prevent blood loss from daily lab draw. 01/23: Blood counts are better. 2. Fall, generalized weakness, ambulatory dysfunction: PT and OT ordered. CK is low suggestive of low muscle mass. AST 49 probably from chronic alcohol use. ALT normal. Left great toe second toe pain more than right great toe. Uric acid normal. X- ray of feet done which shows soft tissue swelling without acute fracture. Empirically IV Solu-Medrol started. 3. Severe hypokalemia and hypomagnesemia: IV potassium and magnesium replacement ordered. Serum phosphorus ordered. 01/20: Serum phosphorus level very low at 0.7. Still has hypokalemia. Magnesium normal. IV phosphate ordered. 01/21: Hypokalemia corrected, K4.9.. Discontinue potassium replacement. 01/23: Patient is doing well. On magnesium chloride. 4. Acute on chronic hyponatremia: Serum sodium was 126 in August 2024. [id number]. Rapidly related to chronic alcohol use with decreased solute intake. IV normal saline ordered 01/22: Sodium is also better. Serum sodium 130. 5. Increased anion gap metabolic acidosis: Bicarb is low at about 15.8, anion gap 20. But venous pH is normal 7.38 with with total CO2 17. Mixed pCO2 26.8. Hard to interpret rate with venous ABG. Seems most likely due to alcoholic ketoacidosis. 01/20: Bicarb 16, anion gap 14. Anion gap seems elevated as expected anion gap ofalbumin 3.1 about 9-10. Started on sodium bicarbonate tablet. 01/23: Patient on sodium bicarbonate tablet and magnesium chloride 6. Right subcrepitant fracture in August 2023 when he had right total hip replacement then. No acute issues 7. Chronic cigarette smoking and chronic alcohol use dependence, [facility] 24-hour monitoring ordered. 8. DVT prophylaxis: Pharmacological prophylaxis contraindicated. Bilateral SCDs Living will/advanced directive/end of life care: Patient does not have living will or advanced directive. He does not have dilated power of managing attorney for health. After discussion of benefits/risks procedures involved with full code,DNR CC arrest and DNR CC, the patient opted for DNR CC arrest with no intubation Patient doesn't want artificial life support including intubation, tube feed, ventilator and/chest compression, central venous catheter, vasopressor and DC shock if needed Charges/Coding Visit Charges Inpatient E&M: 15061 Subs Hosp L2 01/23/25 1246 <Electronically signed by Shorty Lea MD> Cosigner Signature (if applicable): CC: ~ Signed [facility] Work Phone: 1([phone]) 563-794705-11-2025 Progress note [facility] Medical Records Department [address] [place] [address]32 Progress Note - Hospitalist 01/23/25 1242 MR#: [id number] Acct: [id number] Name: KIM CALDWELL Rep #:[id number] : 1960 64 From: Shorty Knight PCP: Dr. Emanuel Macedo MD Status:ADM I N Location: [place] [address] Reason for Visit Reason for Visit: Diagnoses Hypo-osmolality and hyponatremia (01/19/25) Objective Data Objective Data Vital Signs: Vital Signs Temp Pulse Resp BP Pulse Ox O2 Del Method 97.8 F 78 16 138/88 H 100 Room Air 01/23/25 09:35 01/23/25 09:35 01/23/25 09:35 01/23/25 09:35 01/23/25 09:35 01/23/25 09:35 Oxygen Delivery Method Room Air Weight: 175 lb 4.28 oz Body Mass Index (BMI) 25.1 Intake & Output: Intake and Output for Last 24 Hours 01/21/25 01/22/25 01/23/25 23:59 23:59 23:59 Intake Total 900 / 900 960 / 960 Output Total 2049 Balance -1150 / -1150 960 / 960 Lab / Micro Data 01/22/25 06:32 01/22/25 06:32 Micro: Microbiology 01/19/25 09:16 Stool Stool Occult Blood (MARIZOL) - Final Physical Exam Narrative Left great toe and second toe pain has improved. Denies any prior history of gout. Hemoglobin improved. Physical exam General: Alert, Oriented x3, Cooperative. HEENT: Pale conjunctiva. Atraumatic, PERRLA, EOMI, Normocephalic. Oral: Oral mucosa dry. No Gingival or Mucosal Lesions/ Ulcerations Neck: Supple, No JVD, Negative Carotid Bruits Chest wall/Lungs: Air entry diminished in bilateral lung bases. Lungs clear. Cardiovascular: Regular rate and rhythm, Normal S1,S2, No M/G/R Abdomen: Bowel Sounds Present, Soft, Non Tender, Non-Distended : No dysuria. No renal angle tenderness. No suprapubic tenderness. Extremities: No edema, Capillary Refill Less than 3 Seconds Skin: No rashes, No breakdown Musculoskeletal: Mild tenderness over left great toe and second toe, on ankle joint/calcaneal talarjoint. Similar tenderness on right great and second toe but less than left foot. Neurological: Cranial nerves II-XII grossly intact, DTR 2+/4. No acute focal neurological deficit. Psych/Mental Status: Normal Affect, Appropriate. Assessment & Plan Assessment/Plan (1) Chronic hyponatremia: PLAN: Plan This 64-year-old gentleman being admitted for severe generalized weakness, gait instability for 1 that, fall today and found severe anemia thrombocytopenia in ED 1. Severe anemia and thrombocytopenia probably due to chronic alcoholism/BM suppression:. H&H 5.7/15%. Platelet count 50,000. MCV 95. RDW 13.6. ALC low, lymphopenia. stool for occult blood negative. Units of PRBC ordered. Reticulocyte panel, LDH, haptoglobin ordered. TSH, B12 and folic acid ordered. Patient was last admitted in April 2020 for advanced hide EGD and colonoscopy as mentioned below EGD on 04/2024 Impressions : - No gross lesions in the duodenal bulb, in the first portion of the duodenum and in the second portion of the duodenum. No specimens collected. - Gastritis. Biopsied. - Small hiatal hernia. No specimens collected. - Z-line regular, 38 cm from the incisors. Biopsied. - The examination was otherwise normal. Patient was prescribed sucralfate twice daily and PPI Pathology shows mild gastritis, GE junction, chronic inflammation but negative for metaplasia.Negative for H. pylori Colonoscopy 05/04/2024 Impression: - Nodular mucosa at the appendiceal orifice. Biopsied. - Tortuous colon. No specimens collected. - Diverticulosis in the sigmoid colon. No specimens collected. - The examination was otherwise normal on direct and retroflexion views. 01/20: Reticulocyte panel shows low reticulocyte count suggestive of bone marrow suppression/no production. Pancytopenia. H&H 7.5/19%. Platelet count 32K, WBC2.2K. 1 unit of PRBC ordered as patientis symptomatic with dyspnea on exertion. B12 normal. Folic acid low. TSH normal. Advised to follow-up in hematology clinic. Started on thiamine and folic acid. 01/21: H&H 8.4/22.8%. Still has pancytopenia. 01/22: H&H 9.2/25.9%. CBC every other day to prevent blood loss from daily lab draw. 01/23: Blood counts are better. 2. Fall, generalized weakness, ambulatory dysfunction: PT and OT ordered. CK is low suggestive of low muscle mass. AST 49 probably from chronic alcohol use. ALT normal. Left great toe second toe pain more than right great toe. Uric acid normal. X- ray of feet done which shows soft tissue swelling without acute fracture. Empirically IV Solu-Medrol started. 3. Severe hypokalemia and hypomagnesemia: IV potassium and magnesium replacement ordered. Serum phosphorus ordered. 01/20: Serum phosphorus level very low at 0.7. Still has hypokalemia. Magnesium normal. IV phosphate ordered. 01/21: Hypokalemia corrected, K4.9.. Discontinue potassium replacement. 01/23: Patient is doing well. On magnesium chloride. 4. Acute on chronic hyponatremia: Serum sodium was 126 in August 2024. [id number]. Rapidly related to chronic alcohol use with decreased solute intake. IV normal saline ordered 01/22: Sodium is also better. Serum sodium 130. 5. Increased anion gap metabolic acidosis: Bicarb is low at about 15.8, anion gap 20. But venous pHis normal 7.38 with with total CO2 17. Mixed pCO2 26.8. Hard to interpret rate with venous ABG. Seems most likely due to alcoholic ketoacidosis. 01/20: Bicarb 16, anion gap 14. Anion gap seems elevated as expected anion gap ofalbumin 3.1 about 9-10. Started on sodium bicarbonate tablet. 01/23: Patient on sodium bicarbonate tablet and magnesium chloride 6. Right subcrepitant fracture in August 2023 when he had right total hip replacement then. No acute issues 7. Chronic cigarette smoking and chronic alcohol use dependence, [facility] 24-hour monitoring ordered. 8. DVT prophylaxis: Pharmacological prophylaxis contraindicated. Bilateral SCDs Living will/advanced directive/end of life care: Patient does not have living will or advanced directive. He does not have dilated power of managing attorney for health. After discussion of benefits/risks procedures involved with full code,DNR CC arrest and DNR CC, the patient opted for DNR CC arrest with no intubation Patient doesn't want artificial life support including intubation, tube feed, ventilator and/chest compression, central venous catheter, vasopressor and DC shock if needed Charges/Coding Visit Charges Inpatient E&M: [address] [facility] Hosp L2 01/23/25 1246 Cosigner Signature (if applicable): CC: ~ Signed [facility]05-10-2025 Progress note Author Shorty Lea [facility] Note Date/Time January 22, 2025 1:10p [facility] Medical Records Department [address] [place] [address] Progress Note - Hospitalist 01/22/25 1305 MR#: [id number] Acct: [id number] Name: KIM CALDWELL Rep #:[id number] : 1960 64 From: Shorty Knight PCP: Dr. Emanuel Macedo MD Status:ADM I N Location: [place] [address] Reason for Visit Reason for Visit: Diagnoses Hypo-osmolality and hyponatremia (01/19/25) Objective Data Objective Data Vital Signs: Vital Signs Temp Pulse Resp BP Pulse Ox O2 Del Method 98.8 F 74 17 137/90 H 99 Room Air 01/22/25 09:00 01/22/25 09:00 01/22/25 09:00 01/22/25 09:00 01/22/25 09:00 01/22/25 09:00 Oxygen Delivery Method Room Air Weight: 162 lb 14.746 oz Body Mass Index (BMI) 23.3 Intake & Output: Intake and Output for Last 24 Hours 01/20/25 01/21/25 01/22/25 23:59 23:59 23:59 Intake Total 2860 / 2860 900 / 900 480 / 480 Output Total 1600 / 2400 2049 / 2049 Balance 1260 / 460 -1150 / -1150 480 / 480 Lab / Micro Data 01/22/25 06:32 01/22/25 06:32 Labs: Laboratory Results - last 24 hr 01/21/25 03:59: Uric Acid 5.5 01/21/25 14:51: Urine Osmolality 201, Ur Random Sodium 35, Urine Creatinine 37.80 L, Urine Potassium 7.2, Urine Chloride 24 01/22/25 06:32: WBC 2.7 L, RBC 2.85 L, Hgb 9.2 L, Hct 25.9 L, MCV 90.9, MCH 32.3H, MCHC 35.5, RDW Std Deviation 59.7 H, RDW Coeff of Adiel 18.0 H, Plt Count 30 L*, MPV 11.2, Immature Gran % (Auto) 1.100 H, Neut % (Auto) 77.1 H, Lymph % (Auto)14.3 L, Tripp % (Auto) 7.5, Eos % (Auto) 0.0, Baso % (Auto) 0.0, Absolute Neuts (auto) 2.1, Absolute Lymphs (auto) 0.38 L, Nucleated RBC % 0, Differential Comment , Diff Path Review January foll, Platelet Estimate MKD DEC, Sodium 130 L, Potassium 4.9, Chloride 104, Carbon Dioxide 16.4 L, Anion Gap 9, BUN 16, Creatinine 1.12, Estim Creat Clear Calc 69.70, Est GFR (MDRD) Non-Af 74, BUN/Creatinine Ratio 14.6, Glucose 199 H, Calcium 8.3, Total Bilirubin 0.39, AST33, ALT 12, Alkaline Phosphatase 81, Total Protein 6.2, Albumin 3.2 L, Globulin 3.0, Albumin/Globulin Ratio 1.1 Micro: Microbiology 01/19/25 09:16 Stool Stool Occult Blood (MARIZOL) - Final Physical Exam Narrative Left great toe and second toe pain, is much better with IV Solu-Medrol changed to prednisone. Denies any prior history of gout. Hemoglobin improved. Physical exam General: Alert, Oriented x3, Cooperative HEENT: Pale conjunctiva. Atraumatic, PERRLA, EOMI, Normocephalic. Oral: Oral mucosa dry. No Gingival or Mucosal Lesions/ Ulcerations Neck: Supple, No JVD, Negative Carotid Bruits Chest wall/Lungs: Air entry diminished in bilateral lung bases. Lungs clear. Cardiovascular: Regular rate and rhythm, Normal S1,S2, No M/G/R Abdomen: Bowel Sounds Present, Soft, Non Tender, Non-Distended : No dysuria. No renal angle tenderness. No suprapubic tenderness. Extremities: No edema, Capillary Refill Less than 3 Seconds Skin: No rashes, No breakdown Musculoskeletal: Mild tenderness over left great toe and second toe, on ankle joint/calcaneal talar joint. Similar tenderness on right great and second toe but less than left foot. Neurological: Cranial nerves II-XII grossly intact, DTR 2+/4. No acute focal neurological deficit. Psych/Mental Status: Normal Affect, Appropriate. Assessment & Plan Assessment/Plan (1) Chronic hyponatremia: PLAN: Plan This 64-year-old gentleman being admitted for severe generalized weakness, gait instability for 1 that, fall today and found severe anemia thrombocytopenia in ED 1. Severe anemia and thrombocytopenia probably due to chronic alcoholism/BM suppression:. H&H 5.7/15%. Platelet count 50,000. MCV 95. RDW 13.6. ALC low, lymphopenia. stool for occult blood negative. Units of PRBC ordered. Reticulocyte panel, LDH, haptoglobin ordered. TSH, B12 and folic acid ordered. Patient was last admitted in April 2020 for advanced hide EGD and colonoscopy as mentioned below EGD on 04/2024 Impressions : - No gross lesions in the duodenal bulb, in the first portion of the duodenum and in the second portion of the duodenum. No specimens collected. - Gastritis. Biopsied. - Small hiatal hernia. No specimens collected. - Z-line regular, 38 cm from the incisors. Biopsied. - The examination was otherwise normal. Patient was prescribed sucralfate twice daily and PPI Pathology shows mild gastritis, GE junction, chronic inflammation but negative for metaplasia.Negative for H. pylori Colonoscopy 05/04/2024 Impression: - Nodular mucosa at the appendiceal orifice. Biopsied. - Tortuous colon. No specimens collected. - Diverticulosis in the sigmoid colon. No specimens collected. - The examination was otherwise normal on direct and retroflexion views. 01/20: Reticulocyte panel shows low reticulocyte count suggestive of bone marrow suppression/no production. Pancytopenia. H&H 7.5/19%. Platelet count 32K, WBC2.2K. 1 unit of PRBC ordered as patient is symptomatic with dyspnea on exertion. B12 normal. Folic acid low. TSH normal. Advised to follow-up in hematology clinic. Started on thiamine and folic acid. 01/21: H&H 8.4/22.8%. Still has pancytopenia. 01/22: H&H 9.2/25.9%. CBC every other day to prevent blood loss from daily lab draw 2. Fall, generalized weakness, ambulatory dysfunction: PT and OT ordered. CK is low suggestive of low muscle mass. AST 49 probably from chronic alcohol use. ALT normal. Left great toe second toe pain more than right great toe. Uric acid normal. X- ray of feet done which shows soft tissue swelling without acute fracture. Empirically IV Solu-Medrol started. 3. Severe hypokalemia and hypomagnesemia: IV potassium and magnesium replacement ordered. Serum phosphorus ordered. 01/20: Serum phosphorus level very low at 0.7. Still has hypokalemia. Magnesium normal. IV phosphate ordered. 01/21: Hypokalemia corrected, K4.9.. Discontinue potassium replacement. 4. Acute on chronic hyponatremia: Serum sodium was 126 in August 2024. [id number]. Rapidly related to chronic alcohol use with decreased solute intake. IV normal saline ordered 01/22: Sodium is also better. Serum sodium 130. 5. Increased anion gap metabolic acidosis: Bicarb is low at about 15.8, anion gap 20. But venous pH is normal 7.38 with with total CO2 17. Mixed pCO2 26.8. Hard to interpret rate with venous ABG. Seems most likely due to alcoholic ketoacidosis. 01/20: Bicarb 16, anion gap 14. Anion gap seems elevated as expected anion gap ofalbumin 3.1 about 9-10. Started on sodium bicarbonate tablet. 6. Right subcrepitant fracture in August 2023 when he had right total hip replacement then. No acute issues 7. Chronic cigarette smoking and chronic alcohol use dependence, [facility] 24-hour monitoring ordered. 8. DVT prophylaxis: Pharmacological prophylaxis contraindicated. Bilateral SCDs Living will/advanced directive/end of life care: Patient does not have living will or advanced directive. He does not have dilated power of managing attorney for health. After discussion of benefits/risks procedures involved with full code,DNR CC arrest and DNR CC, the patient opted for DNR CC arrest with no intubation Patient doesn't want artificial life support including intubation, tube feed, ventilator and/chest compression, central venous catheter, vasopressor and DC shock if needed Total time spent in [id number] encounter in discussion of advanced directive 17 minutes. Microbiology Past 72 Hours 01/19/25 09:16 Stool Stool Occult Blood (MARIZOL) - Final Laboratory Results 01/21/25 03:59: Uric Acid 5.5 01/21/25 14:51: Urine Osmolality 201, Ur Random Sodium 35, Urine Creatinine 37.80 L, Urine Potassium 7.2, Urine Chloride 24 01/22/25 06:32: WBC 2.7 L, RBC 2.85 L, Hgb 9.2 L, Hct 25.9 L, MCV 90.9, MCH 32.3H, MCHC 35.5, RDW Std Deviation 59.7 H, RDW Coeff of Adiel 18.0 H, Plt Count 30 L*, MPV 11.2, Immature Gran % (Auto) 1.100 H, Neut % (Auto) 77.1 H, Lymph % (Auto)14.3 L, Tripp % (Auto) 7.5, Eos % (Auto) 0.0, Baso % (Auto) 0.0, Absolute Neuts (auto) 2.1, Absolute Lymphs (auto) 0.38 L, Nucleated RBC % 0, Differential Comment , Diff Path Review May foll, Platelet Estimate MKD DEC, Sodium 130 L, Potassium 4.9, Chloride 104, Carbon Dioxide 16.4 L, Anion Gap 9, BUN 16, Creatinine 1.12, Estim Creat Clear Calc 69.70, Est GFR (MDRD) Non-Af 74, BUN/Creatinine Ratio 14.6, Glucose 199 H, Calcium 8.3, Total Bilirubin 0.39, AST33, ALT 12, Alkaline Phosphatase 81, Total Protein 6.2, Albumin 3.2 L, Globulin 3.0, Albumin/Globulin Ratio 1.1 Charges/Coding Visit Charges Inpatient E&M: 11832 Subs Hosp L2 01/22/25 1310 <Electronically signed by Shorty Lea MD> Cosigner Signature (if applicable): CC: ~ Signed [facility] Work Phone: [phone] 472-904305-10-2025 Progress note [facility] Medical Records Department [address] [place] [address] Progress Note - Hospitalist 01/22/25 1305 MR#: [id number] Acct: [id number] Name: KIM CALDWELL Rep #:[id number] : 1960 64 From: Shorty Knight PCP: Dr. Emanuel Macedo MD Status:ADM I N Location: [place] [address] Reason for Visit Reason for Visit: Diagnoses Hypo-osmolality and hyponatremia (01/19/25) Objective Data Objective Data Vital Signs: Vital Signs Temp Pulse Resp BP Pulse Ox O2 Del Method 98.8 F 74 17 137/90 H 99 Room Air 01/22/25 09:00 01/22/25 09:00 01/22/25 09:00 01/22/25 09:00 01/22/25 09:00 01/22/25 09:00 Oxygen Delivery Method Room Air Weight: 162 lb 14.746 oz Body Mass Index (BMI) 23.3 Intake & Output: Intake and Output for Last 24 Hours 01/20/25 01/21/25 01/22/25 23:59 23:59 23:59 Intake Total 2860 / 2860 900 / 900 480 / 480 Output Total 1600 / 2400 2049 Balance 1260 / 460 -1150 / -1150 480 / 480 Lab / Micro Data 01/22/25 06:32 01/22/25 06:32 Labs: Laboratory Results - last 24 hr 01/21/25 03:59: Uric Acid 5.5 01/21/25 14:51: Urine Osmolality 201, Ur Random Sodium 35, Urine Creatinine 37.80 L, Urine Potassium 7.2, Urine Chloride 24 01/22/25 06:32: WBC 2.7 L, RBC 2.85 L, Hgb 9.2 L, Hct 25.9 L, MCV 90.9, MCH 32.3H, MCHC 35.5, RDW Std Deviation 59.7 H, RDW Coeff of Adiel 18.0 H, Plt Count 30 L*, MPV 11.2, Immature Gran % (Auto) 1.100 H, Neut % (Auto) 77.1 H, Lymph % (Auto)14.3 L, Tripp % (Auto) 7.5, Eos % (Auto) 0.0, Baso % (Auto) 0.0, Absolute Neuts (auto) 2.1, Absolute Lymphs (auto) 0.38 L, Nucleated RBC % 0, Differential Comment , Diff Path Review January, Platelet Estimate MKD DEC, Sodium 130 L, Potassium 4.9, Chloride 104, Carbon Dioxide 16.4 L, Anion Gap 9, BUN 16, Creatinine 1.12, Estim Creat Clear Calc 69.70, Est GFR(MDRD) Non-Af 74, BUN/Creatinine Ratio 14.6, Glucose 199 H, Calcium 8.3, Total Bilirubin 0.39, AST33, ALT 12, Alkaline Phosphatase 81, Total Protein 6.2, Albumin 3.2 L, Globulin 3.0, Albumin/GlobulinRatio 1.1 Micro: Microbiology 01/19/25 09:16 Stool Stool Occult Blood (MARIZOL) - Final Physical Exam Narrative Left great toe and second toe pain, is much better with IV Solu-Medrol changed to prednisone. Denies any prior history of gout. Hemoglobin improved. Physical exam General: Alert, Oriented x3, Cooperative HEENT: Pale conjunctiva. Atraumatic, PERRLA, EOMI, Normocephalic. Oral: Oral mucosa dry. No Gingival or Mucosal Lesions/ Ulcerations Neck: Supple, No JVD, Negative Carotid Bruits Chest wall/Lungs: Air entry diminished in bilateral lung bases. Lungs clear. Cardiovascular: Regular rate and rhythm, Normal S1,S2, No M/G/R Abdomen: Bowel Sounds Present, Soft, Non Tender, Non-Distended : No dysuria. No renal angle tenderness. No suprapubic tenderness. Extremities: No edema, Capillary Refill Less than 3 Seconds Skin: No rashes, No breakdown Musculoskeletal: Mild tenderness over left great toe and second toe, on ankle joint/calcaneal talarjoint. Similar tenderness on right great and second toe but less than left foot. Neurological: Cranial nerves II-XII grossly intact, DTR 2+/4. No acute focal neurological deficit. Psych/Mental Status: Normal Affect, Appropriate. Assessment & Plan Assessment/Plan (1) Chronic hyponatremia: PLAN: Plan This 64-year-old gentleman being admitted for severe generalized weakness, gait instability for 1 that, fall today and found severe anemia thrombocytopenia in ED 1. Severe anemia and thrombocytopenia probably due to chronic alcoholism/BM suppression:. H&H 5.7/15%. Platelet count 50,000. MCV 95. RDW 13.6. ALC low, lymphopenia. stool for occult blood negative. Units of PRBC ordered. Reticulocyte panel, LDH, haptoglobin ordered. TSH, B12 and folic acid ordered. Patient was last admitted in April 2020 for advanced hide EGD and colonoscopy as mentioned below EGD on 04/2024 Impressions : - No gross lesions in the duodenal bulb, in the first portion of the duodenum and in the second portion of the duodenum. No specimens collected. - Gastritis. Biopsied. - Small hiatal hernia. No specimens collected. - Z-line regular, 38 cm from the incisors. Biopsied. - The examination was otherwise normal. Patient was prescribed sucralfate twice daily and PPI Pathology shows mild gastritis, GE junction, chronic inflammation but negative for metaplasia.Negative for H. pylori Colonoscopy 05/04/2024 Impression: - Nodular mucosa at the appendiceal orifice. Biopsied. - Tortuous colon. No specimens collected. - Diverticulosis in the sigmoid colon. No specimens collected. - The examination was otherwise normal on direct and retroflexion views. 01/20: Reticulocyte panel shows low reticulocyte count suggestive of bone marrow suppression/no production. Pancytopenia. H&H 7.5/19%. Platelet count 32K, WBC2.2K. 1 unit of PRBC ordered as patientis symptomatic with dyspnea on exertion. B12 normal. Folic acid low. TSH normal. Advised to follow-up in hematology clinic. Started on thiamine and folic acid. 01/21: H&H 8.4/22.8%. Still has pancytopenia. 01/22: H&H 9.2/25.9%. CBC every other day to prevent blood loss from daily lab draw 2. Fall, generalized weakness, ambulatory dysfunction: PT and OT ordered. CK is low suggestive of low muscle mass. AST 49 probably from chronic alcohol use. ALT normal. Left great toe second toe pain more than right great toe. Uric acid normal. X- ray of feet done which shows soft tissue swelling without acute fracture. Empirically IV Solu-Medrol started. 3. Severe hypokalemia and hypomagnesemia: IV potassium and magnesium replacement ordered. Serum phosphorus ordered. 01/20: Serum phosphorus level very low at 0.7. Still has hypokalemia. Magnesium normal. IV phosphate ordered. 01/21: Hypokalemia corrected, K4.9.. Discontinue potassium replacement. 4. Acute on chronic hyponatremia: Serum sodium was 126 in August 2024. [id number]. Rapidly related to chronic alcohol use with decreased solute intake. IV normal saline ordered 01/22: Sodium is also better. Serum sodium 130. 5. Increased anion gap metabolic acidosis: Bicarb is low at about 15.8, anion gap 20. But venous pHis normal 7.38 with with total CO2 17. Mixed pCO2 26.8. Hard to interpret rate with venous ABG. Seems most likely due to alcoholic ketoacidosis. 01/20: Bicarb 16, anion gap 14. Anion gap seems elevated as expected anion gap ofalbumin 3.1 about 9-10. Started on sodium bicarbonate tablet. 6. Right subcrepitant fracture in August 2023 when he had right total hip replacement then. No acute issues 7. Chronic cigarette smoking and chronic alcohol use dependence, [facility] 24-hour monitoring ordered. 8. DVT prophylaxis: Pharmacological prophylaxis contraindicated. Bilateral SCDs Living will/advanced directive/end of life care: Patient does not have living will or advanced directive. He does not have dilated power of managing attorney for health. After discussion of benefits/risks procedures involved with full code,DNR CC arrest and DNR CC, the patient opted for DNR CC arrest with no intubation Patient doesn't want artificial life support including intubation, tube feed, ventilator and/chest compression, central venous catheter, vasopressor and DC shock if needed Total time spent in [id number] encounter in discussion of advanced directive 17 minutes. Microbiology Past 72 Hours 01/19/25 09:16 Stool Stool Occult Blood (MARIZOL) - Final Laboratory Results 01/21/25 03:59: Uric Acid 5.5 01/21/25 14:51: Urine Osmolality 201, Ur Random Sodium 35, Urine Creatinine 37.80 L, Urine Potassium 7.2, Urine Chloride 24 01/22/25 06:32: WBC 2.7 L, RBC 2.85 L, Hgb 9.2 L, Hct 25.9 L, MCV 90.9, MCH 32.3H, MCHC 35.5, RDW Std Deviation 59.7 H, RDW Coeff of Adiel 18.0 H, Plt Count 30 L*, MPV 11.2, Immature Gran % (Auto) 1.100 H, Neut % (Auto) 77.1 H, Lymph % (Auto)14.3 L, Tripp % (Auto) 7.5, Eos % (Auto) 0.0, Baso % (Auto) 0.0, Absolute Neuts (auto) 2.1, Absolute Lymphs (auto) 0.38 L, Nucleated RBC % 0, Differential Comment , Diff Path Review January, Platelet Estimate MKD DEC, Sodium 130 L, Potassium 4.9, Chloride 104, Carbon Dioxide 16.4 L, Anion Gap 9, BUN 16, Creatinine 1.12, Estim Creat Clear Calc 69.70, Est GFR(MDRD) Non-Af 74, BUN/Creatinine Ratio 14.6, Glucose 199 H, Calcium 8.3, Total Bilirubin 0.39, AST33, ALT 12, Alkaline Phosphatase 81, Total Protein 6.2, Albumin 3.2 L, Globulin 3.0, Albumin/GlobulinRatio 1.1 Charges/Coding Visit Charges Inpatient E&M: 05421 Subs Hosp L2 01/22/25 1310 Cosigner Signature (if applicable): CC: ~ Signed [facility]05-09-2025 Progress note Author Shorty Lea [facility] Note Date/Time January 21, 2025 4:15pm [facility] Medical Records Department [address] [place] [address] Progress Note - Hospitalist 01/21/25 1611 MR#: [id number] Acct: [id number] Name: KIM CALDWELL Rep #:[id number] : 1960 64 From: Shorty Knight PCP: Dr. Emanuel Macedo MD Status:ADM I N Location: [place] [address] Reason for Visit Reason for Visit: Diagnoses Hypo-osmolality and hyponatremia (01/19/25) Objective Data Objective Data Vital Signs: Vital Signs Temp Pulse Resp BP Pulse Ox O2 Del Method 97.9 F 79 16 110/83 H 100 Room Air 01/21/25 15:00 01/21/25 15:00 01/21/25 15:00 01/21/25 15:00 01/21/25 15:00 01/21/25 15:00 Oxygen Delivery Method Room Air Weight: 168 lb 6.931 oz Body Mass Index (BMI) 24.1 Intake & Output: Intake and Output for Last 24 Hours 01/19/25 01/20/25 01/21/25 23:59 23:59 23:59 Intake Total 2260 / 2260 2860 / 2860 900 / 900 Output Total 1600 / 2400 2049 / 2049 Balance 2260 / 2260 1260 / 460 -1150 / -1150 Lab / Micro Data 01/21/25 03:59 01/21/25 03:59 Labs: Laboratory Results - last 24 hr 01/19/25 09:03: Crossmatch See Detail 01/19/25 17:10: Haptoglobin 127, GGT 31 01/21/25 03:59: WBC 2.2 L, RBC 2.61 L, Hgb 8.4 L, Hct 22.8 L, MCV 87.4, MCH 32.2H, MCHC 36.8 H, RDW Std Deviation 56.9 H, RDW Coeff of Adiel 17.9 H, Plt Count 30 L*, MPV 10.2, Immature Gran % (Auto) 0.900, Neut % (Auto) 67.5, Lymph % (Auto) 21.4, Tripp % (Auto) 8.0, Eos % (Auto) 1.3, Baso % (Auto) 0.9, Absolute Neuts (auto) 1.5 L, Absolute Lymphs (auto) 0.48 L, Nucleated RBC % 0, Platelet Estimate MKD DEC, Anisocytosis 1+, Ovalocytes 1+, Acanthocytes (Spur) 1+, [id number] L, Potassium 3.2 L, Chloride 100, Carbon Dioxide 17.0 L, Anion Gap 11, BUN 14, Creatinine 0.93, Estim Creat Clear Calc 83.95, Est GFR (MDRD) Non-Af 92, BUN/Creatinine Ratio 14.7, Glucose 114 H, Uric Acid 5.5, Calcium 7.8, Phosphorus2.7, Total Bilirubin 0.59, AST 37, ALT 13, Alkaline Phosphatase 79, Total Protein 5.7 L, Albumin 3.0 L, Globulin 2.7, Albumin/Globulin Ratio 1.1 01/21/25 14:51: Ur Random Sodium 35, Urine Creatinine 37.80 L, Urine Potassium 7.2, Urine Chloride 24 Micro: Microbiology 01/19/25 09:16 Stool Stool Occult Blood (MARIZOL) - Final Radiography Diagnostic Testing: Radiology Impression Foot X-Ray 01/21/25 10:41 IMPRESSION: 1. Soft tissue swelling without acute fracture. 2. If symptoms persist, repeat radiograph in 10-14 days recommended. 3. Degenerative changes as above. Reading Location: [facility] Foot X-Ray 01/21/25 11:00 IMPRESSION: 1. Soft tissue swelling without acute fracture. 2. If symptoms persist, repeat radiograph in 10-14 days recommended. Reading Location: [facility] Physical Exam Narrative Left great toe and second toe pain. Denies any prior history of gout. Hemoglobin improved. Patient states it hurts more when he puts weight on it. Physical exam General: Alert, Oriented x3, Cooperative HEENT: Pale conjunctiva. Atraumatic, PERRLA, EOMI, Normocephalic. Oral: Oral mucosa dry. No Gingival or Mucosal Lesions/ Ulcerations Neck: Supple, No JVD, Negative Carotid Bruits Chest wall/Lungs: Air entry diminished in bilateral lung bases. Lungs clear. Cardiovascular: Regular rate and rhythm, Normal S1,S2, No M/G/R Abdomen: Bowel Sounds Present, Soft, Non Tender, Non-Distended : No dysuria. No renal angle tenderness. No suprapubic tenderness. Extremities: No edema, Capillary Refill Less than 3 Seconds Skin: No rashes, No breakdown Musculoskeletal: Tenderness over left great toe and second toe, on ankle joint/calcaneal talar joint. Similar tenderness on right great and second toe but less than left foot. Neurological: Cranial nerves II-XII grossly intact, DTR 2+/4. No acute focal neurological deficit. Psych/Mental Status: Normal Affect, Appropriate. Assessment & Plan Assessment/Plan (1) Chronic hyponatremia: PLAN: Plan This 64-year-old gentleman being admitted for severe generalized weakness, gait instability for 1 that, fall today and found severe anemia thrombocytopenia in ED 1. Severe anemia and thrombocytopenia probably due to chronic alcoholism/BM suppression:. H&H 5.7/15%. Platelet count 50,000. MCV 95. RDW 13.6. ALC low, lymphopenia. stool for occult blood negative. Units of PRBC ordered. Reticulocyte panel, LDH, haptoglobin ordered. TSH, B12 and folic acid ordered. Patient was last admitted in April 2020 for advanced hide EGD and colonoscopy as mentioned below EGD on 04/2024 Impressions : - No gross lesions in the duodenal bulb, in the first portion of the duodenum and in the second portion of the duodenum. No specimens collected. - Gastritis. Biopsied. - Small hiatal hernia. No specimens collected. - Z-line regular, 38 cm from the incisors. Biopsied. - The examination was otherwise normal. Patient was prescribed sucralfate twice daily and PPI Pathology shows mild gastritis, GE junction, chronic inflammation but negative for metaplasia.Negative for H. pylori Colonoscopy 05/04/2024 Impression: - Nodular mucosa at the appendiceal orifice. Biopsied. - Tortuous colon. No specimens collected. - Diverticulosis in the sigmoid colon. No specimens collected. - The examination was otherwise normal on direct and retroflexion views. 01/20: Reticulocyte panel shows low reticulocyte count suggestive of bone marrow suppression/no production. Pancytopenia. H&H 7.5/19%. Platelet count 32K, WBC2.2K. 1 unit of PRBC ordered as patient is symptomatic with dyspnea on exertion. B12 normal. Folic acid low. TSH normal. Advised to follow-up in hematology clinic. Started on thiamine and folic acid. 01/24: H&H 8.4/22.8%. Still has pancytopenia. 2. Fall, generalized weakness, ambulatory dysfunction: PT and OT ordered. CK is low suggestive of low muscle mass. AST 49 probably from chronic alcohol use. ALT normal. Left great toe second toe pain more than right great toe. Uric acid normal. X- ray of feet done which shows soft tissue swelling without acute fracture. Empirically IV Solu-Medrol started. 3. Severe hypokalemia and hypomagnesemia: IV potassium and magnesium replacement ordered. Serum phosphorus ordered. 01/20: Serum phosphorus level very low at 0.7. Still has hypokalemia. Magnesium normal. IV phosphate ordered. 01/20: 4. Acute on chronic hyponatremia: Serum sodium was 126 in August 2024. [id number]. Rapidly related to chronic alcohol use with decreased solute intake. IV normal saline ordered 5. Increased anion gap metabolic acidosis: Bicarb is low at about 15.8, anion gap 20. But venous pH is normal 7.38 with with total CO2 17. Mixed pCO2 26.8. Hard to interpret rate with venous ABG. Seems most likely due to alcoholic ketoacidosis. 01/20: Bicarb 16, anion gap 14. Anion gap seems elevated as expected anion gap ofalbumin 3.1 about 9-10. Started on sodium bicarbonate tablet. 6. Right subcrepitant fracture in August 2023 when he had right total hip replacement then. No acute issues 7. Chronic cigarette smoking and chronic alcohol use dependence, [facility] 24-hour monitoring ordered. 8. DVT prophylaxis: Pharmacological prophylaxis contraindicated. Bilateral SCDs Living will/advanced directive/end of life care: Patient does not have living will or advanced directive. He does not have dilated power of managing attorney for health. After discussion of benefits/risks procedures involved with full code,DNR CC arrest and DNR CC, the patient opted for DNR CC arrest with no intubation Patient doesn't want artificial life support including intubation, tube feed, ventilator and/chest compression, central venous catheter, vasopressor and DC shock if needed Total time spent in [id number] encounter in discussion of advanced directive 17 minutes. Microbiology Past 72 Hours 01/19/25 09:16 Stool Stool Occult Blood (MARIZOL) - Final Laboratory Results 01/19/25 09:03: Crossmatch See Detail 01/19/25 09:03: Crossmatch See Detail 01/19/25 17:10: Haptoglobin Pending, Phosphorus 1.5 L, GGT Pending, Lactate Dehydrogenase 191, b-Hydroxybutyric mmol/L 3.0, Direct Antiglob Test NEG w/POLYSPECIFIC 01/19/25 17:15: Hgb 8.3 L, Hct 22.4 L 01/19/25 20:35: Sodium 122 L, Potassium 3.1 L, Chloride 89 L, Carbon Dioxide 14.5 L, Anion Gap 19 H, BUN 16, Creatinine 1.00, Estim Creat Clear Calc 78.07, Est GFR (MDRD) Non-Af 85, BUN/Creatinine Ratio 15.8, Glucose 142 H, Calcium 7.6 01/20/25 05:28: WBC 2.2 L, RBC 2.28 L, Hgb 7.5 L, Hct 19.8 L, MCV 86.8 D, MCH 32.9 H, MCHC 37.9 H, RDW Std Deviation 56.9 H, RDW Coeff of Adiel 17.9 H, Plt Count 32 L*, MPV 10.5, Sodium 124 L, Potassium 3.0 L, Chloride 93 L, Carbon Dioxide 16.2 L, Anion Gap 14, BUN 15, Creatinine 0.92, Estim Creat Clear Calc 84.86, Est GFR (MDRD) Non-Af 93, BUN/Creatinine Ratio 16.4, Glucose 153 H, Calcium 7.5 L, Phosphorus 0.7 L*, Magnesium 1.8, Total Bilirubin 1.36 H, AST 51 H, ALT 16, Alkaline Phosphatase 76, Total Protein 5.6 L, Albumin 3.1 L, Globulin 2.5, Albumin/Globulin Ratio 1.2, Vitamin B12 418, Serum Folate 3.23 L, TSH 2.000 Charges/Coding Visit Charges Inpatient E&M: 92839 Subs Hosp L2 01/21/25 1615 <Electronically signed by Shorty Lea MD> Cosigner Signature (if applicable): CC: ~ Signed [facility] Work Phone: 1(187) 179-359105-09-2025 Progress note [facility] Medical Records Department [address] [place] [address] Progress Note - Hospitalist 01/21/25 1611 MR#: [id number] Acct: [id number] Name: KIM CALDWELL Rep #:[id number] : 1960 64 From: Shorty Knight PCP: Dr. Emanuel Macedo MD Status:ADM I N Location: [place] [address] Reason for Visit Reason for Visit: Diagnoses Hypo-osmolality and hyponatremia (01/19/25) Objective Data Objective Data Vital Signs: Vital Signs Temp Pulse Resp BP Pulse Ox O2 Del Method 97.9 F 79 16 110/83 H 100 Room Air 01/21/25 15:00 01/21/25 15:00 01/21/25 15:00 01/21/25 15:00 01/21/25 15:00 01/21/25 15:00 Oxygen Delivery Method Room Air Weight: 168 lb 6.931 oz Body Mass Index (BMI) 24.1 Intake & Output: Intake and Output for Last 24 Hours 01/19/25 01/20/25 01/21/25 23:59 23:59 23:59 Intake Total 2260 / 2260 2860 / 2860 900 / 900 Output Total 1600 / 2400 2050 / 2050 Balance 2260 / 2260 1260 / 460 -1150 / -1150 Lab / Micro Data 01/21/25 03:59 01/21/25 03:59 Labs: Laboratory Results - last 24 hr 01/19/25 09:03: Crossmatch See Detail 01/19/25 17:10: Haptoglobin 127, GGT 31 01/21/25 03:59: WBC 2.2 L, RBC 2.61 L, Hgb 8.4 L, Hct 22.8 L, MCV 87.4, MCH 32.2H, MCHC 36.8 H, RDWStd Deviation 56.9 H, RDW Coeff of Adiel 17.9 H, Plt Count 30 L*, MPV 10.2, Immature Gran % (Auto) 0.900, Neut % (Auto) 67.5, Lymph % (Auto) 21.4, Tripp % (Auto) 8.0, Eos % (Auto) 1.3, Baso % (Auto) 0.9, Absolute Neuts (auto) 1.5 L, Absolute Lymphs (auto) 0.48 L, Nucleated RBC % 0, Platelet Estimate MKD DEC, Anisocytosis 1+, Ovalocytes 1+, Acanthocytes (Spur) 1+, [id number] L, Potassium 3.2 L, Chloride 100, Carbon Dioxide 17.0 L, Anion Gap 11, BUN 14, Creatinine 0.93, Estim Creat Clear Calc 83.95, Est GFR (MDRD) Non-Af 92, BUN/Creatinine Ratio 14.7, Glucose 114 H, Uric Acid 5.5, Calcium 7.8, Phosp horus2.7, Total Bilirubin 0.59, AST 37, ALT 13, Alkaline Phosphatase 79, Total Protein 5.7 L, Albumin 3.0 L, Globulin 2.7, Albumin/Globulin Ratio 1.1 01/21/25 14:51: Ur Random Sodium 35, Urine Creatinine 37.80 L, Urine Potassium 7.2, Urine Chloride 24 Micro: Microbiology 01/19/25 09:16 Stool Stool Occult Blood (MARIZOL) - Final Radiography Diagnostic Testing: Radiology Impression Foot X-Ray 01/21/25 10:41 IMPRESSION: 1. Soft tissue swelling without acute fracture. 2. If symptoms persist, repeat radiograph in 10-14 days recommended. 3. Degenerative changes as above. Reading Location: [facility] Foot X-Ray 01/21/25 11:00 IMPRESSION: 1. Soft tissue swelling without acute fracture. 2. If symptoms persist, repeat radiograph in 10-14 days recommended. Reading Location: [facility] Physical Exam Narrative Left great toe and second toe pain. Denies any prior history of gout. Hemoglobin improved. Patient states it hurts more when he puts weight on it. Physical exam General: Alert, Oriented x3, Cooperative HEENT: Pale conjunctiva. Atraumatic, PERRLA, EOMI, Normocephalic. Oral: Oral mucosa dry. No Gingival or Mucosal Lesions/ Ulcerations Neck: Supple, No JVD, Negative Carotid Bruits Chest wall/Lungs: Air entry diminished in bilateral lung bases. Lungs clear. Cardiovascular: Regular rate and rhythm, Normal S1,S2, No M/G/R Abdomen: Bowel Sounds Present, Soft, Non Tender, Non-Distended : No dysuria. No renal angle tenderness. No suprapubic tenderness. Extremities: No edema, Capillary Refill Less than 3 Seconds Skin: No rashes, No breakdown Musculoskeletal: Tenderness over left great toe and second toe, on ankle joint/calcaneal talar joint. Similar tenderness on right great and second toe but less than left foot. Neurological: Cranial nerves II-XII grossly intact, DTR 2+/4. No acute focal neurological deficit. Psych/Mental Status: Normal Affect, Appropriate. Assessment & Plan Assessment/Plan (1) Chronic hyponatremia: PLAN: Plan This 64-year-old gentleman being admitted for severe generalized weakness, gait instability for 1 that, fall today and found severe anemia thrombocytopenia in ED 1. Severe anemia and thrombocytopenia probably due to chronic alcoholism/BM suppression:. H&H 5.7/15%. Platelet count 50,000. MCV 95. RDW 13.6. ALC low, lymphopenia. stool for occult blood negative. Units of PRBC ordered. Reticulocyte panel, LDH, haptoglobin ordered. TSH, B12 and folic acid ordered. Patient was last admitted in April 2020 for advanced hide EGD and colonoscopy as mentioned below EGD on 04/2024 Impressions : - No gross lesions in the duodenal bulb, in the first portion of the duodenum and in the second portion of the duodenum. No specimens collected. - Gastritis. Biopsied. - Small hiatal hernia. No specimens collected. - Z-line regular, 38 cm from the incisors. Biopsied. - The examination was otherwise normal. Patient was prescribed sucralfate twice daily and PPI Pathology shows mild gastritis, GE junction, chronic inflammation but negative for metaplasia.Negative for H. pylori Colonoscopy 05/04/2024 Impression: - Nodular mucosa at the appendiceal orifice. Biopsied. - Tortuous colon. No specimens collected. - Diverticulosis in the sigmoid colon. No specimens collected. - The examination was otherwise normal on direct and retroflexion views. 01/20: Reticulocyte panel shows low reticulocyte count suggestive of bone marrow suppression/no production. Pancytopenia. H&H 7.5/19%. Platelet count 32K, WBC2.2K. 1 unit of PRBC ordered as patientis symptomatic with dyspnea on exertion. B12 normal. Folic acid low. TSH normal. Advised to follow-up in hematology clinic. Started on thiamine and folic acid. 01/24: H&H 8.4/22.8%. Still has pancytopenia. 2. Fall, generalized weakness, ambulatory dysfunction: PT and OT ordered. CK is low suggestive of low muscle mass. AST 49 probably from chronic alcohol use. ALT normal. Left great toe second toe pain more than right great toe. Uric acid normal. X- ray of feet done which shows soft tissue swelling without acute fracture. Empirically IV Solu-Medrol started. 3. Severe hypokalemia and hypomagnesemia: IV potassium and magnesium replacement ordered. Serum phosphorus ordered. 01/20: Serum phosphorus level very low at 0.7. Still has hypokalemia. Magnesium normal. IV phosphate ordered. 01/20: 4. Acute on chronic hyponatremia: Serum sodium was 126 in August 2024. [id number]. Rapidly related to chronic alcohol use with decreased solute intake. IV normal saline ordered 5. Increased anion gap metabolic acidosis: Bicarb is low at about 15.8, anion gap 20. But venous pHis normal 7.38 with with total CO2 17. Mixed pCO2 26.8. Hard to interpret rate with venous ABG. Seems most likely due to alcoholic ketoacidosis. 01/20: Bicarb 16, anion gap 14. Anion gap seems elevated as expected anion gap ofalbumin 3.1 about 9-10. Started on sodium bicarbonate tablet. 6. Right subcrepitant fracture in August 2023 when he had right total hip replacement then. No acute issues 7. Chronic cigarette smoking and chronic alcohol use dependence, [facility] 24-hour monitoring ordered. 8. DVT prophylaxis: Pharmacological prophylaxis contraindicated. Bilateral SCDs Living will/advanced directive/end of life care: Patient does not have living will or advanced directive. He does not have dilated power of managing attorney for health. After discussion of benefits/risks procedures involved with full code,DNR CC arrest and DNR CC, the patient opted for DNR CC arrest with no intubation Patient doesn't want artificial life support including intubation, tube feed, ventilator and/chest compression, central venous catheter, vasopressor and DC shock if needed Total time spent in [id number] encounter in discussion of advanced directive 17 minutes. Microbiology Past 72 Hours 01/19/25 09:16 Stool Stool Occult Blood (MARIZOL) - Final Laboratory Results 01/19/25 09:03: Crossmatch See Detail 01/19/25 09:03: Crossmatch See Detail 01/19/25 17:10: Haptoglobin Pending, Phosphorus 1.5 L, GGT Pending, Lactate Dehydrogenase 191, b-Hydroxybutyric mmol/L 3.0, Direct Antiglob Test NEG w/POLYSPECIFIC 01/19/25 17:15: Hgb 8.3 L, Hct 22.4 L 01/19/25 20:35: Sodium 122 L, Potassium 3.1 L, Chloride 89 L, Carbon Dioxide 14.5 L, Anion Gap 19 H, BUN 16, Creatinine 1.00, Estim Creat Clear Calc 78.07, Est GFR (MDRD) Non-Af 85, BUN/Creatinine Ratio 15.8, Glucose 142 H, Calcium 7.6 01/20/25 05:28: WBC 2.2 L, RBC 2.28 L, Hgb 7.5 L, Hct 19.8 L, MCV 86.8 D, MCH 32.9 H, MCHC 37.9 H, RDW Std Deviation 56.9 H, RDW Coeff of Adiel 17.9 H, Plt Count 32 L*, MPV 10.5, Sodium 124 L, Potassium 3.0 L, Chloride 93 L, Carbon Dioxide 16.2 L, Anion Gap 14, BUN 15, Creatinine 0.92, Estim Creat Clear Calc 84.86, Est GFR (MDRD) Non-Af 93, BUN/Creatinine Ratio 16.4, Glucose 153 H, Calcium 7.5 L, Phosphorus 0.7 L*, Magnesium 1.8, Total Bilirubin 1.36 H, AST 51 H, ALT 16, Alkaline Phosphatase 76, Total Protein 5.6 L, Albumin 3.1 L, Globulin 2.5, Albumin/Globulin Ratio 1.2, Vitamin B12 418, SerumFolate 3.23 L, TSH 2.000 Charges/Coding Visit Charges Inpatient E&M: 60973 Subs Hosp L2 01/21/25 1615 Cosigner Signature (if applicable): CC: ~ Signed [facility]05-09-2025 Radiology Diagnostic study note [facility] Imaging Services [address], [place] [address] Foot min 3 Views MR#: [id number] Acct: [id number] Name: KIM CALDWELL Rep #: [id number] : 1960 M 64 From: Lazara Paulson MD PCP: Dr. Emanuel Macedo MD Status: ADM I N Study:Foot min 3 Views Date of Exam: 06/09 Exam# [id number] Ordering Dr: Stuart Lea MD EXAM: XR Left Foot Complete, 3 or More Views CLINICAL INDICATION: PAIN IN BIG TOES AND ANKLES TECHNIQUE: Frontal, lateral and oblique views of the left foot. COMPARISON: No relevant prior studies available. FINDINGS: BONES/JOINTS: Mild degenerative changes of the PIP joints. Mild degenerative changes of the intertarsal joints. SOFT TISSUES: Soft tissue swelling without acute fracture. No radiopaque foreign body. OTHER FINDINGS: Hammertoes. RAD/Foot min 3 Views IMPRESSION: 1. Soft tissue swelling without acute fracture. 2. If symptoms persist, repeat radiograph in 10-14 days recommended. Reading Location: [facility] CC: Dr. Shorty Lea MD; Dr. Emanuel Macedo MD ~ Supervisor Scrap Preparation: Signed [facility]05-09-2025 Radiology Diagnostic study note [facility] Imaging Services [address] [place] [address] Foot min 3 Views MR#: [id number] Acct: [id number] Name: KIM CALDWELL Rep #: [id number] : 1960 M 64 From: Lazara Paulson MD PCP: Dr. Emanuel Macedo MD Status: ADM I N Study:Foot min 3 Views Date of Exam: 06/09 Exam# [id number] Ordering Dr: Stuart Lea MD EXAM: XR Right Foot Complete, 3 or More Views CLINICAL INDICATION: PAIN IN BIG TOES AND ANKLES TECHNIQUE: Frontal, lateral and oblique views of the right foot. COMPARISON: No relevant prior studies available. FINDINGS: BONES/JOINTS: Moderate degenerative changes of the PIP joints. SOFT TISSUES: Soft tissue swelling without acute fracture. No radiopaque foreign body. OTHER FINDINGS: Suboptimal exam secondary to underpenetration. Hammertoes. RAD/Foot min 3 Views IMPRESSION: 1. Soft tissue swelling without acute fracture. 2. If symptoms persist, repeat radiograph in 10-14 days recommended. 3. Degenerative changes as above. Reading Location: [facility] CC: Dr. Shorty Lea MD; Dr. Emanuel Macedo MD ~ Supervisor Scrap Preparation: Signed [facility]05-08-2025 Progress note Author Shorty Lea [facility] Note Date/Time January 20, 2025 4:08pm [facility] Medical Records Department [address] [place] [address] Progress Note - Hospitalist 01/20/25 1014 MR#: [id number] Acct: [id number] Name: KIM CALDWELL Rep #:[id number] : 1960 64 From: Shorty Knight PCP: Dr. Emanuel Macedo MD Status:ADM I N Location: [place] [address] Reason for Visit Reason for Visit: Diagnoses Hypo-osmolality and hyponatremia (01/19/25) Objective Data Objective Data Vital Signs: Vital Signs Temp Pulse Resp BP Pulse Ox O2 Del Method 98.1 F 81 18 125/77 H 100 Room Air 01/20/25 08:10 01/20/25 08:10 01/20/25 08:10 01/20/25 08:10 01/20/25 08:10 01/20/25 08:10 Oxygen Delivery Method Room Air Weight: 165 lb 2.02 oz Body Mass Index (BMI) 23.6 Intake & Output: Intake and Output for Last 24 Hours 01/18/25 01/19/25 01/20/25 23:59 23:59 23:59 Intake Total 2260 / 2260 1000 / 1000 Output Total 700 / 700 Balance 2260 / 2260 300 / 300 Lab / Micro Data 01/20/25 05:28 01/20/25 05:28 Labs: Laboratory Results - last 24 hr 01/19/25 07:56: Immature Plt Fraction 4.7, Retic Count 0.26 L, Immature Retic Fraction 6.60, Retic Hgb Equivalent 35.9 H 01/19/25 09:03: Blood Type A POSITIVE, Antibody Screen NEGATIVE, Crossmatch See Detail 01/19/25 10:57: Urine Color Yellow, Urine Clarity Clear, Urine pH 7.0, Ur Specific [place] 1.005, Urine Protein 30 H, Urine Glucose (UA) Normal, Urine Ketones 50 H, Urine Occult Blood Negative, Urine Nitrite Negative, Urine Bilirubin Negative, Urine Urobilinogen 1 H, Ur Leukocyte Esterase Negative, Urine RBC 0 SEEN, Urine WBC 0 SEEN, Ur Squamous Epith Cells 0-5 SEEN, Urine Bacteria 0 SEEN, Urine Mucus 0 SEEN 01/19/25 17:10: Phosphorus 1.5 L, Lactate Dehydrogenase 191, b-Hydroxybutyric mmol/L 3.0, Direct Antiglob Test NEG w/POLYSPECIFIC 01/19/25 17:15: Hgb 8.3 L, Hct 22.4 L 01/19/25 20:35: Sodium 122 L, Potassium 3.1 L, Chloride 89 L, Carbon Dioxide 14.5 L, Anion Gap 19 H, BUN 16, Creatinine 1.00, Estim Creat Clear Calc 78.07, Est GFR (MDRD) Non-Af 85, BUN/Creatinine Ratio 15.8, Glucose 142 H, Calcium 7.6 01/20/25 05:28: WBC 2.2 L, RBC 2.28 L, Hgb 7.5 L, Hct 19.8 L, MCV 86.8 D, MCH 32.9 H, MCHC 37.9 H, RDW Std Deviation 56.9 H, RDW Coeff of Adiel 17.9 H, Plt Count 32 L*, MPV 10.5, Sodium 124 L, Potassium 3.0 L, Chloride 93 L, Carbon Dioxide 16.2 L, Anion Gap 14, BUN 15, Creatinine 0.92, Estim Creat Clear Calc 84.86, Est GFR (MDRD) Non-Af 93, BUN/Creatinine Ratio 16.4, Glucose 153 H, Calcium 7.5 L, Total Bilirubin 1.36 H, AST 51 H, ALT 16, Alkaline Phosphatase 76,Total Protein 5.6 L, Albumin 3.1 L, Globulin 2.5, Albumin/Globulin Ratio 1.2, Vitamin B12 418, TSH 2.000 Micro: Microbiology 01/19/25 09:16 Stool Stool Occult Blood (MARIZOL) - Final Physical Exam Narrative Patient is still symptomatic with shortness of breath on exertion, fatigue. Hemoglobin 7.5 along with pancytopenia and therefore 1 unit of PRBC ordered. Electrolytes are low Physical exam General: Alert, Oriented x3, Cooperative HEENT: Pale conjunctiva. Atraumatic, PERRLA, EOMI, Normocephalic. Oral: Oral mucosa dry. No Gingival or Mucosal Lesions/ Ulcerations Neck: Supple, No JVD, Negative Carotid Bruits Chest wall/Lungs: Air entry diminished in bilateral lung bases. Lungs clear. Cardiovascular: Regular rate and rhythm, Normal S1,S2, No M/G/R Abdomen: Bowel Sounds Present, Soft, Non Tender, Non-Distended : No dysuria. No renal angle tenderness. No suprapubic tenderness. Extremities: No edema, Capillary Refill Less than 3 Seconds Skin: No rashes, No breakdown Musculoskeletal: Muscle strength 4+/5 at hips and knee joints bilaterally. ROM fully intact. No Tenderness to Palpation of Joints or Extremities Neurological: Cranial nerves II-XII grossly intact, DTR 2+/4. No acute focal neurological deficit. Psych/Mental Status: Normal Affect, Appropriate. Assessment & Plan Assessment/Plan (1) Chronic hyponatremia: PLAN: Plan This 64-year-old gentleman being admitted for severe generalized weakness, gait instability for 1 that, fall today and found severe anemia thrombocytopenia in ED 1. Severe anemia and thrombocytopenia probably due to chronic alcoholism/BM suppression:. H&H 5.7/15%. Platelet count 50,000. MCV 95. RDW 13.6. ALC low, lymphopenia. stool for occult blood negative. Units of PRBC ordered. Reticulocyte panel, LDH, haptoglobin ordered. TSH, B12 and folic acid ordered. Patient was last admitted in April 2020 for advanced hide EGD and colonoscopy as mentioned below EGD on 04/2024 Impressions : - No gross lesions in the duodenal bulb, in the first portion of the duodenum and in the second portion of the duodenum. No specimens collected. - Gastritis. Biopsied. - Small hiatal hernia. No specimens collected. - Z-line regular, 38 cm from the incisors. Biopsied. - The examination was otherwise normal. Patient was prescribed sucralfate twice daily and PPI Pathology shows mild gastritis, GE junction, chronic inflammation but negative for metaplasia.Negative for H. pylori Colonoscopy 05/04/2024 Impression: - Nodular mucosa at the appendiceal orifice. Biopsied. - Tortuous colon. No specimens collected. - Diverticulosis in the sigmoid colon. No specimens collected. - The examination was otherwise normal on direct and retroflexion views. 01/20: Reticulocyte panel shows low reticulocyte count suggestive of bone marrow suppression/no production. Pancytopenia. H&H 7.5/19%. Platelet count 32K, WBC2.2K. 1 unit of PRBC ordered as patient is symptomatic with dyspnea on exertion. B12 normal. Folic acid low. TSH normal. Advised to follow-up in hematology clinic. Started on thiamine and folic acid. 2. Fall, generalized weakness, ambulatory dysfunction: PT and OT ordered. CK is low suggestive of low muscle mass. AST 49 probably from chronic alcohol use. ALT normal. 3. Severe hypokalemia and hypomagnesemia: IV potassium and magnesium replacement ordered. Serum phosphorus ordered. 01/20: Serum phosphorus level very low at 0.7. Still has hypokalemia. Magnesium normal. IV phosphate ordered. 01/20: 4. Acute on chronic hyponatremia: Serum sodium was 126 in August 2024. [id number]. Rapidly related to chronic alcohol use with decreased solute intake. IV normal saline ordered 5. Increased anion gap metabolic acidosis: Bicarb is low at about 15.8, anion gap 20. But venous pH is normal 7.38 with with total CO2 17. Mixed pCO2 26.8. Hard to interpret rate with venous ABG. Seems most likely due to alcoholic ketoacidosis. 01/20: Bicarb 16, anion gap 14. Anion gap seems elevated as expected anion gap ofalbumin 3.1 about 9-10. Started on sodium bicarbonate tablet. 6. Right subcrepitant fracture in August 2023 when he had right total hip replacement then. No acute issues 7. Chronic cigarette smoking and chronic alcohol use dependence, [facility] 24-hour monitoring ordered. 8. DVT prophylaxis: Pharmacological prophylaxis contraindicated. Bilateral SCDs Living will/advanced directive/end of life care: Patient does not have living will or advanced directive. He does not have dilated power of managing attorney for health. After discussion of benefits/risks procedures involved with full code,DNR CC arrest and DNR CC, the patient opted for DNR CC arrest with no intubation Patient doesn't want artificial life support including intubation, tube feed, ventilator and/chest compression, central venous catheter, vasopressor and DC shock if needed Total time spent in [id number] encounter in discussion of advanced directive 17 minutes. Microbiology Past 72 Hours 01/19/25 09:16 Stool Stool Occult Blood (MARIZOL) - Final Laboratory Results 01/19/25 09:03: Crossmatch See Detail 01/19/25 09:03: Crossmatch See Detail 01/19/25 17:10: Haptoglobin Pending, Phosphorus 1.5 L, GGT Pending, Lactate Dehydrogenase 191, b-Hydroxybutyric mmol/L 3.0, Direct Antiglob Test NEG w/POLYSPECIFIC 01/19/25 17:15: Hgb 8.3 L, Hct 22.4 L 01/19/25 20:35: Sodium 122 L, Potassium 3.1 L, Chloride 89 L, Carbon Dioxide 14.5 L, Anion Gap 19 H, BUN 16, Creatinine 1.00, Estim Creat Clear Calc 78.07, Est GFR (MDRD) Non-Af 85, BUN/Creatinine Ratio 15.8, Glucose 142 H, Calcium 7.6 01/20/25 05:28: WBC 2.2 L, RBC 2.28 L, Hgb 7.5 L, Hct 19.8 L, MCV 86.8 D, MCH 32.9 H, MCHC 37.9 H, RDW Std Deviation 56.9 H, RDW Coeff of Adiel 17.9 H, Plt Count 32 L*, MPV 10.5, Sodium 124 L, Potassium 3.0 L, Chloride 93 L, Carbon Dioxide 16.2 L, Anion Gap 14, BUN 15, Creatinine 0.92, Estim Creat Clear Calc 84.86, Est GFR (MDRD) Non-Af 93, BUN/Creatinine Ratio 16.4, Glucose 153 H, Calcium 7.5 L, Phosphorus 0.7 L*, Magnesium 1.8, Total Bilirubin 1.36 H, AST 51 H, ALT 16, Alkaline Phosphatase 76, Total Protein 5.6 L, Albumin 3.1 L, Globulin 2.5, Albumin/Globulin Ratio 1.2, Vitamin B12 418, Serum Folate 3.23 L, TSH 2.000 Charges/Coding Visit Charges Inpatient E&M: 77227 Subs Hosp L2 01/20/25 1608 <Electronically signed by Shorty Lea MD> Cosigner Signature (if applicable): CC: ~ Signed [facility] Work Phone: 1(300) 394-998405-08-2025 Progress note [facility] Medical Records Department [address] [place] [address] Progress Note - Hospitalist 01/20/25 1014 MR#: [id number] Acct: [id number] Name: KIM CALDWELL Rep #:[id number] : 1960 64 From: Shorty Knight PCP: Dr. Emanuel Macedo MD Status:ADM I N Location: [place] [address] Reason for Visit Reason for Visit: Diagnoses Hypo-osmolality and hyponatremia (01/19/25) Objective Data Objective Data Vital Signs: Vital Signs Temp Pulse Resp BP Pulse Ox O2 Del Method 98.1 F 81 18 125/77 H 100 Room Air 01/20/25 08:10 01/20/25 08:10 01/20/25 08:10 01/20/25 08:10 01/20/25 08:10 01/20/25 08:10 Oxygen Delivery Method Room Air Weight: 165 lb 2.02 oz Body Mass Index (BMI) 23.6 Intake & Output: Intake and Output for Last 24 Hours 01/18/25 01/19/25 01/20/25 23:59 23:59 23:59 Intake Total 2260 / 2260 1000 / 1000 Output Total 700 / 700 Balance 2260 / 2260 300 / 300 Lab / Micro Data 01/20/25 05:28 01/20/25 05:28 Labs: Laboratory Results - last 24 hr 01/19/25 07:56: Immature Plt Fraction 4.7, Retic Count 0.26 L, Immature Retic Fraction 6.60, Retic Hgb Equivalent 35.9 H 01/19/25 09:03: Blood Type A POSITIVE, Antibody Screen NEGATIVE, Crossmatch See Detail 01/19/25 10:57: Urine Color Yellow, Urine Clarity Clear, Urine pH 7.0, Ur Specific [place] 1.005, Urine Protein 30 H, Urine Glucose (UA) Normal, Urine Ketones 50 H, Urine Occult Blood Negative, UrineNitrite Negative, Urine Bilirubin Negative, Urine Urobilinogen 1 H, Ur Leukocyte Esterase Negative,Urine RBC 0 SEEN, Urine WBC 0 SEEN, Ur Squamous Epith Cells 0-5 SEEN, Urine Bacteria 0 SEEN, Urine Mucus 0 SEEN 01/19/25 17:10: Phosphorus 1.5 L, Lactate Dehydrogenase 191, b-Hydroxybutyric mmol/L 3.0, Direct Antiglob Test NEG w/POLYSPECIFIC 01/19/25 17:15: Hgb 8.3 L, Hct 22.4 L 01/19/25 20:35: Sodium 122 L, Potassium 3.1 L, Chloride 89 L, Carbon Dioxide 14.5 L, Anion Gap 19 H, BUN 16, Creatinine 1.00, Estim Creat Clear Calc 78.07, Est GFR (MDRD) Non-Af 85, BUN/Creatinine Ratio 15.8, Glucose 142 H, Calcium 7.6 01/20/25 05:28: WBC 2.2 L, RBC 2.28 L, Hgb 7.5 L, Hct 19.8 L, MCV 86.8 D, MCH 32.9 H, MCHC 37.9 H, RDW Std Deviation 56.9 H, RDW Coeff of Adiel 17.9 H, Plt Count 32 L*, MPV 10.5, Sodium 124 L, Potassium 3.0 L, Chloride 93 L, Carbon Dioxide 16.2 L, Anion Gap 14, BUN 15, Creatinine 0.92, Estim Creat Clear Calc 84.86, Est GFR (MDRD) Non-Af 93, BUN/Creatinine Ratio 16.4, Glucose 153 H, Calcium 7.5 L, Total Bilirubin 1.36 H, AST 51 H, ALT 16, Alkaline Phosphatase 76,Total Protein 5.6 L, Albumin 3.1 L,Globulin 2.5, Albumin/Globulin Ratio 1.2, Vitamin B12 418, TSH 2.000 Micro: Microbiology 01/19/25 09:16 Stool Stool Occult Blood (MARIZOL) - Final Physical Exam Narrative Patient is still symptomatic with shortness of breath on exertion, fatigue. Hemoglobin 7.5 along with pancytopenia and therefore 1 unit of PRBC ordered. Electrolytes are low Physical exam General: Alert, Oriented x3, Cooperative HEENT: Pale conjunctiva. Atraumatic, PERRLA, EOMI, Normocephalic. Oral: Oral mucosa dry. No Gingival or Mucosal Lesions/ Ulcerations Neck: Supple, No JVD, Negative Carotid Bruits Chest wall/Lungs: Air entry diminished in bilateral lung bases. Lungs clear. Cardiovascular: Regular rate and rhythm, Normal S1,S2, No M/G/R Abdomen: Bowel Sounds Present, Soft, Non Tender, Non-Distended : No dysuria. No renal angle tenderness. No suprapubic tenderness. Extremities: No edema, Capillary Refill Less than 3 Seconds Skin: No rashes, No breakdown Musculoskeletal: Muscle strength 4+/5 at hips and knee joints bilaterally. ROM fully intact. No Tenderness to Palpation of Joints or Extremities Neurological: Cranial nerves II-XII grossly intact, DTR 2+/4. No acute focal neurological deficit. Psych/Mental Status: Normal Affect, Appropriate. Assessment & Plan Assessment/Plan (1) Chronic hyponatremia: PLAN: Plan This 64-year-old gentleman being admitted for severe generalized weakness, gait instability for 1 that, fall today and found severe anemia thrombocytopenia in ED 1. Severe anemia and thrombocytopenia probably due to chronic alcoholism/BM suppression:. H&H 5.7/15%. Platelet count 50,000. MCV 95. RDW 13.6. ALC low, lymphopenia. stool for occult blood negative. Units of PRBC ordered. Reticulocyte panel, LDH, haptoglobin ordered. TSH, B12 and folic acid ordered. Patient was last admitted in April 2020 for advanced hide EGD and colonoscopy as mentioned below EGD on 04/2024 Impressions : - No gross lesions in the duodenal bulb, in the first portion of the duodenum and in the second portion of the duodenum. No specimens collected. - Gastritis. Biopsied. - Small hiatal hernia. No specimens collected. - Z-line regular, 38 cm from the incisors. Biopsied. - The examination was otherwise normal. Patient was prescribed sucralfate twice daily and PPI Pathology shows mild gastritis, GE junction, chronic inflammation but negative for metaplasia.Negative for H. pylori Colonoscopy 05/04/2024 Impression: - Nodular mucosa at the appendiceal orifice. Biopsied. - Tortuous colon. No specimens collected. - Diverticulosis in the sigmoid colon. No specimens collected. - The examination was otherwise normal on direct and retroflexion views. 01/20: Reticulocyte panel shows low reticulocyte count suggestive of bone marrow suppression/no production. Pancytopenia. H&H 7.5/19%. Platelet count 32K, WBC2.2K. 1 unit of PRBC ordered as patientis symptomatic with dyspnea on exertion. B12 normal. Folic acid low. TSH normal. Advised to follow-up in hematology clinic. Started on thiamine and folic acid. 2. Fall, generalized weakness, ambulatory dysfunction: PT and OT ordered. CK is low suggestive of low muscle mass. AST 49 probably from chronic alcohol use. ALT normal. 3. Severe hypokalemia and hypomagnesemia: IV potassium and magnesium replacement ordered. Serum phosphorus ordered. 01/20: Serum phosphorus level very low at 0.7. Still has hypokalemia. Magnesium normal. IV phosphate ordered. 01/20: 4. Acute on chronic hyponatremia: Serum sodium was 126 in August 2024. [id number]. Rapidly related to chronic alcohol use with decreased solute intake. IV normal saline ordered 5. Increased anion gap metabolic acidosis: Bicarb is low at about 15.8, anion gap 20. But venous pHis normal 7.38 with with total CO2 17. Mixed pCO2 26.8. Hard to interpret rate with venous ABG. Seems most likely due to alcoholic ketoacidosis. 01/20: Bicarb 16, anion gap 14. Anion gap seems elevated as expected anion gap ofalbumin 3.1 about 9-10. Started on sodium bicarbonate tablet. 6. Right subcrepitant fracture in August 2023 when he had right total hip replacement then. No acute issues 7. Chronic cigarette smoking and chronic alcohol use dependence, [facility] 24-hour monitoring ordered. 8. DVT prophylaxis: Pharmacological prophylaxis contraindicated. Bilateral SCDs Living will/advanced directive/end of life care: Patient does not have living will or advanced directive. He does not have dilated power of managing attorney for health. After discussion of benefits/risks procedures involved with full code,DNR CC arrest and DNR CC, the patient opted for DNR CC arrest with no intubation Patient doesn't want artificial life support including intubation, tube feed, ventilator and/chest compression, central venous catheter, vasopressor and DC shock if needed Total time spent in [id number] encounter in discussion of advanced directive 17 minutes. Microbiology Past 72 Hours 01/19/25 09:16 Stool Stool Occult Blood (MARIZOL) - Final Laboratory Results 01/19/25 09:03: Crossmatch See Detail 01/19/25 09:03: Crossmatch See Detail 01/19/25 17:10: Haptoglobin Pending, Phosphorus 1.5 L, GGT Pending, Lactate Dehydrogenase 191, b-Hydroxybutyric mmol/L 3.0, Direct Antiglob Test NEG w/POLYSPECIFIC 01/19/25 17:15: Hgb 8.3 L, Hct 22.4 L 01/19/25 20:35: Sodium 122 L, Potassium 3.1 L, Chloride 89 L, Carbon Dioxide 14.5 L, Anion Gap 19 H, BUN 16, Creatinine 1.00, Estim Creat Clear Calc 78.07, Est GFR (MDRD) Non-Af 85, BUN/Creatinine Ratio 15.8, Glucose 142 H, Calcium 7.6 01/20/25 05:28: WBC 2.2 L, RBC 2.28 L, Hgb 7.5 L, Hct 19.8 L, MCV 86.8 D, MCH 32.9 H, MCHC 37.9 H, RDW Std Deviation 56.9 H, RDW Coeff of Adiel 17.9 H, Plt Count 32 L*, MPV 10.5, Sodium 124 L, Potassium 3.0 L, Chloride 93 L, Carbon Dioxide 16.2 L, Anion Gap 14, BUN 15, Creatinine 0.92, Estim Creat Clear Calc 84.86, Est GFR (MDRD) Non-Af 93, BUN/Creatinine Ratio 16.4, Glucose 153 H, Calcium 7.5 L, Phosphorus 0.7 L*, Magnesium 1.8, Total Bilirubin 1.36 H, AST 51 H, ALT 16, Alkaline Phosphatase 76, Total Protein 5.6 L, Albumin 3.1 L, Globulin 2.5, Albumin/Globulin Ratio 1.2, Vitamin B12 418, SerumFolate 3.23 L, TSH 2.000 Charges/Coding Visit Charges Inpatient E&M: 96884 Subs Hosp L2 01/20/25 1608 Cosigner Signature (if applicable): CC: ~ Signed [facility]05-07-2025 History and physical note Author Shorty Lea [facility] Note Date/Time January 19, 2025 3:02pm [facility] Medical Records Department [address] [place] [address] H&P Exam - Hospitalist 01/19/25 1032 MR#: [id number] Acct: [id number] Name: KIM CALDWELL Rep #:[id number] : 1960 64 From: Shorty Knight PCP: Dr. Emanuel Macedo MD Status:ADM I N Location: [place] [address] HPI - General General Date of Admission: 01/19/25 Date of Service: 01/19/25 Chief Complaint: Fall yesterday, severe anemia and thrombocytopenia. HPI Narrative KIM CALDWELL, is a 64 M with history of chronic alcohol use came to ED when he fell into the wall after losing balance. He landed on his buttocks but no majorinjury. For past 1 week he has been feeling very weak, unsteady gait, decreasedappetite and energy. Denies syncope. No abdominal pain. In ED, patient was found to have severe anemia and thrombocytopenia and patient denies any external loss of blood including hematemesis melena hematochezia, hematuria, hemoptysis or major injury or hematoma. Patient also had recent EGD and colonoscopy which did not show any major cause of bleeding. Stool for occult blood in ED negative. BP low normal 107/67 with heart rate 96 per blood. 2 units of PRBC ordered and patient further admitted. Social history: Patient drinks vodka, 1/4th of 16 ounce glass and three fourths of water almost daily. He has been drinking alcohol for a long time. He smokescigarettes. Was smoking 1 pack before and recently cut down to half pack per day. Denies [place] or other substance use [facility] Medical History Closed fracture of right hip Home Medications ?Medication ?Instructions ?Recorded ?Last Taken ?Type mirtazapine 7.5 mg tablet 7.5 mg PO QHS mental health 04/21/24 01/18/25 History pantoprazole 40 mg tablet,delayed 40 mg PO DAILY #30 t abs 04/26/24 Unknown Rx release (Protonix) ascorbic acid (vitamin C) 500 mg 500 mg PO DAILY 01/19 Unknown History tablet losartan 100 mg tablet 100 mg PO QHS 01/19/25 Unkno wn History Allergy/AdvReac Type Severity Reaction Status Date / Time No Known Allergies Allergy Verified 08/16/23 05:09 Surgical History S/P total hip arthroplasty Hx of neck surgery Social History Smoking Status: Current some day smoker tobacco type: cigarettes alcohol intake: current alcohol intake frequency: a few times a week substance use type: does not use ROS ROS Narrative Constitutional: Reports fatigue and weakness. Loss of appetite. No fever. HEENT: Reports systems reviewed and no addt'l complaints, except as documented Respiratory/Chest: No acute shortness of breath or respiratory distress or wheezing. CVS: Denies chest pain or shortness of breath. Gastrointestinal: Denies coffee ground emesis, hematemesis or vomiting Genitourinary: Denies burning urination or new urinary tract symptoms Musculoskeletal: Had right hip surgery in the past. Decreased lower extremity strength and balance. Fall Neurologic: Denies seizure-like symptoms. skin: No ulcer. No rash Endocrinology: Reports systems reviewed and no addt'l complaints, except as documented Hematologic/Lymphatic: Reports systems reviewed and no addt'l complaints, exceptas documented Rest 14 ROS are negative except as mentioned in HPI Vital Signs Vital Signs Vital Signs: 01/19/25 07:21 01/19/25 07:26 Temperature 97.8 F Temperature Source Oral Pulse Rate 96 Respiratory Rate 15 Respiratory Effort Normal Respiratory Depth Normal Respiratory Pattern Normal Blood Pressure 107/67 Blood Pressure Mean 80 Oxygen Delivery Method Room Air Weight Weight: 158 lb 11.725 oz Body Mass Index (BMI) 23.4 Physical Exam Narrative General: Alert, Oriented x3, Cooperative HEENT: Pale conjunctiva. Atraumatic, PERRLA, EOMI, Normocephalic. Oral: Oral mucosa dry. No Gingival or Mucosal Lesions/ Ulcerations Neck: Supple, No JVD, Negative Carotid Bruits Chest wall/Lungs: Air entry diminished in bilateral lung bases. Mild bilateralexpiratory rhonchi Cardiovascular: Regular rate and rhythm, Normal S1,S2, No M/G/R Abdomen: Bowel Sounds Present, Soft, Non Tender, Non-Distended : No dysuria. No renal angle tenderness. No suprapubic tenderness. Extremities: No edema, Capillary Refill Less than 3 Seconds Skin: No rashes, No breakdown Musculoskeletal: Muscle strength 4+/5 at hips and knee joints bilaterally. ROM fully intact. No Tenderness to Palpation of Joints or Extremities Neurological: Cranial nerves II-XII grossly intact, DTR 2+/4. No acute focal neurological deficit. Psych/Mental Status: Normal Affect, Appropriate. Results Lab / Micro Data 01/19/25 07:56 01/19/25 07:56 Labs: Laboratory Results - last 24 hr 01/19/25 07:46: Ethyl Alcohol < 10.1 01/19/25 07:56: WBC 5.4, RBC 1.60 L, Hgb 5.7 L*, Hct 15.2 L, MCV 95.0 H, MCH 35.6 H, MCHC 37.5 H, RDW Std Deviation 46.5 H, RDW Coeff of Adiel 13.6, Plt Count 50 L*, MPV 11.5, Immature Gran % (Auto) 0.700, Neut % (Auto) 85.5 H, Lymph % (Auto) 8.3 L, Tripp % (Auto) 4.4, Eos % (Auto) 0.9, Baso % (Auto) 0.2, Absolute Neuts (auto) 4.6, Absolute Lymphs (auto) 0.45 L, Nucleated RBC % 0, DifferentialComment COMMENT, Platelet Estimate MKD DEC, Anisocytosis 2+, PT 13.8, INR 1.0, APTT 35.9, Sodium 121 L, Potassium 2.9 L, Chloride 85 L, Carbon Dioxide 15.7 L, Anion Gap 20 H, BUN 15, Creatinine 1.02, Estim Creat Clear Calc 74.13, Est GFR (MDRD) Non-Af 83, BUN/Creatinine Ratio 14.4, Glucose 118 H, Calcium 7.8, Magnesium 1.0 L, Total Bilirubin 0.61, AST 49 H, ALT 21, Alkaline Phosphatase 93,Total Creatine Kinase 19 L, Total Protein 6.5, Albumin 3.5, Globulin 3.0, Albumin/Globulin Ratio 1.2, Lipase 36 01/19/25 09:03: Blood Type A POSITIVE, Antibody Screen NEGATIVE, Crossmatch See Detail Micro: Microbiology 01/19/25 09:16 Stool Stool Occult Blood (MARIZOL) - Final ABG Data ABG results: ABG 01/19/25 07:52 Specimen Type SAGRARIO Sample Site Not entered VBG pH 7.38 VBG pO2 81 H VBG HCO3 16 L VBG Total CO2 17 L VBG O2 Sat (Calc) 96 H VBG Base Excess -10 L POC Mix VBG pCO2 Pt Tmp 26.8 L O2 Delivery Device Not entered Imaging Radiology Impression Pelvis X-Ray 01/19/25 07:31 IMPRESSION: No acute fracture or dislocation. Right hip replacement with femoral prosthesis partially imaged. Reading Location: [facility] Chest X-Ray 01/19/25 08:20 IMPRESSION: No evidence of acute disease. Reading Location: [facility] Brain CT 01/19/25 08:22 IMPRESSION: No intracranial hemorrhage, mass effect or calvarial fracture. Volume loss, atrophy appears moderate for age. Reading Location: [id number] Assessment & Plan Assessment/Plan (1) Chronic hyponatremia: PLAN: Plan This 64-year-old gentleman being admitted for severe generalized weakness, gait instability for 1 that, fall today and found severe anemia thrombocytopenia in ED 1. Severe anemia and thrombocytopenia probably due to chronic alcoholism/BM suppression:. H&H 5.7/15%. Platelet count 50,000. MCV 95. RDW 13.6. ALC low, lymphopenia. stool for occult blood negative. Units of PRBC ordered. Reticulocyte panel, LDH, haptoglobin ordered. TSH, B12 and folic acid ordered. Patient was last admitted in April 2020 for advanced hide EGD and colonoscopy as mentioned below EGD on 04/2024 Impressions : - No gross lesions in the duodenal bulb, in the first portion of the duodenum and in the second portion of the duodenum. No specimens collected. - Gastritis. Biopsied. - Small hiatal hernia. No specimens collected. - Z-line regular, 38 cm from the incisors. Biopsied. - The examination was otherwise normal. Patient was prescribed sucralfate twice daily and PPI Pathology shows mild gastritis, GE junction, chronic inflammation but negative for metaplasia.Negative for H. pylori Colonoscopy 05/04/2024 Impression: - Nodular mucosa at the appendiceal orifice. Biopsied. - Tortuous colon. No specimens collected. - Diverticulosis in the sigmoid colon. No specimens collected. - The examination was otherwise normal on direct and retroflexion views. 2. Fall, generalized weakness, ambulatory dysfunction: PT and OT ordered. CK is low suggestive of low muscle mass. AST 49 probably from chronic alcohol use. ALT normal. 3. Severe hypokalemia and hypomagnesemia: IV potassium and magnesium replacement ordered. Serum phosphorus ordered. 4. Acute on chronic hyponatremia: Serum sodium was 126 in August 2024. [id number]. Rapidly related to chronic alcohol use with decreased solute intake. IV normal saline ordered 5. Increased anion gap metabolic acidosis: Bicarb is low at about 15.8, anion gap 20. But venous pH is normal 7.38 with with total CO2 17. Mixed pCO2 26.8. Hard to interpret rate with venous ABG. Seems most likely due to alcoholic ketoacidosis. 6. Right subcrepitant fracture in August 2023 when he had right total hip replacement then. No acute issues 7. Chronic cigarette smoking and chronic alcohol use dependence, [facility] 24-hour monitoring ordered. 8. DVT prophylaxis: Pharmacological prophylaxis contraindicated. Bilateral SCDs Living will/advanced directive/end of life care: Patient does not have living will or advanced directive. He does not have dilated power of managing attorney for health. After discussion of benefits/risks procedures involved with full code,DNR CC arrest and DNR CC, the patient opted for DNR CC arrest with no intubation Patient doesn't want artificial life support including intubation, tube feed, ventilator and/chest compression, central venous catheter, vasopressor and DC shock if needed Total time spent in [id number] encounter in discussion of advanced directive 17 minutes. Microbiology Past 72 Hours 01/19/25 09:16 Stool Stool Occult Blood (MARIZOL) - Final Laboratory Results 01/19/25 07:46: Ethyl Alcohol < 10.1 01/19/25 07:52: Specimen Type SAGRARIO, Sample Site Not entered, VBG pH 7.38, VBG pO281 H, VBG HCO3 16 L, VBG Total CO2 17 L, VBG O2 Sat (Calc) 96 H, VBG Base Excess-10 L, POC Mix VBG pCO2 Pt Tmp 26.8 L, O2 Delivery Device Not entered 01/19/25 07:56: WBC 5.4, RBC 1.60 L, Hgb 5.7 L*, Hct 15.2 L, MCV 95.0 H, MCH 35.6 H, MCHC 37.5 H, RDW Std Deviation 46.5 H, RDW Coeff of Adiel 13.6, Plt Count 50 L*, MPV 11.5, Immature Gran % (Auto) 0.700, Neut % (Auto) 85.5 H, Lymph % (Auto) 8.3 L, Tripp % (Auto) 4.4, Eos % (Auto) 0.9, Baso % (Auto) 0.2, Absolute Neuts (auto) 4.6, Absolute Lymphs (auto) 0.45 L, Nucleated RBC % 0, DifferentialComment COMMENT, Platelet Estimate MKD DEC, Anisocytosis 2+, PT 13.8, INR 1.0, APTT 35.9, Sodium 121 L, Potassium 2.9 L, Chloride 85 L, Carbon Dioxide 15.7 L, Anion Gap 20 H, BUN 15, Creatinine 1.02, Estim Creat Clear Calc 74.13, Est GFR (MDRD) Non-Af 83, BUN/Creatinine Ratio 14.4, Glucose 118 H, Calcium 7.8, Magnesium 1.0 L, Total Bilirubin 0.61, AST 49 H, ALT 21, Alkaline Phosphatase 93, Total Creatine Kinase 19 L, Total Protein 6.5, Albumin 3.5, Globulin 3.0, Albumin/Globulin Ratio 1.2, Lipase 36 01/19/25 09:03: Blood Type A POSITIVE, Antibody Screen NEGATIVE, Crossmatch See Detail Charges/Coding Visit Charges Inpatient E&M: 22362 Init Hosp L3 Procedures Hospitalists Procedures: 11584 Advncd Care Plan 30 Min 01/19/25 1502 <Electronically signed by Shorty Lea MD> Cosigner Signature (if applicable): CC: Dr. Shorty Lea MD; Dr. Emanuel Macedo MD~ Signed [facility] Work Phone: [phone]) 276-640905-07-2025 Discharge summary Author [facility] Note Date/Time January 19, 2025 2:49pm [facility] Medical Records Department [address] [place] [id number] Emergency Department Summary 01/19/25 MR#: [id number] Acct: [id number] Name: KIM CALDWELL Rep #:[id number] : 1960 64 From: Milagro Gonzalez PCP: Dr. Emanuel Macedo MD Status:ADM I N Location: [address] History of Present Illness Chief Complaint: Fall Informant: patient Narrative Narrative: Patient is 64-year-old male with history of prior right hip fracture and regularalcohol use presenting from home via EMS for generalized weakness and fall. Patient has had progressively worsening generalized weakness for the past week. This morning when he was walking he tried to turn and lost his balance and fell into the wall. He landed on his buttocks. Denies hitting his head. Given how weak he was he finally agreed to come to the hospital (significant other has been pushing for this for a couple days now). He notes he has had some associated nausea and vomiting has been clear/mucus. He does not recall when his last bowel movement is. Denies any abdominal pain. Denies any fever or chills. Denies any associated numbness or tingling. Denies any sick contacts. Does not know what color her stools have been. Denies any urinary symptoms. Denies any vertigo. Denies any history of alcohol withdrawal/DTs. His states he is an alcoholic but patient states he drinks daily but it is not that much. Notes that he is having some pelvic/bilateral hip pain but thinks it is because he has not been walking or moving around. No other complaints or concerns reported at this time. No sick contacts reported. [facility] Medical History Closed fracture of right hip Home Medications ?Medication ?Instructions ?Recorded ?Last Taken ?Type mirtazapine 7.5 mg tablet 7.5 mg PO QHS mental health 04/21/24 01/18/25 History pantoprazole 40 mg tablet,delayed 40 mg PO DAILY #30 t abs 04/26/24 Unknown Rx release (Protonix) ascorbic acid (vitamin C) 500 mg 500 mg PO DAILY 01/19 Unknown History tablet losartan 100 mg tablet 100 mg PO QHS 01/19/25 Unkno wn History Allergy/AdvReac Type Severity Reaction Status Date / Time No Known Allergies Allergy Verified 08/16/23 05:09 Surgical History S/P total hip arthroplasty Hx of neck surgery Social History Smoking Status: Current some day smoker tobacco type: cigarettes alcohol intake: current alcohol intake frequency: a few times a week substance use type: does not use ROS ROS ED Constitutional Constitutional ED: Reports other; Denies chills or fever(s) Eyes Eyes: Denies blurry vision or change in vision Cardiovascular Cardiovascular: Denies chest pain Respiratory/Chest Respiratory/Chest: Denies cough or dyspnea Gastrointestinal Gastrointestinal: Reports nausea and vomiting; Denies abdominal pain, constipation, diarrhea or melena Genitourinary Genitourinary ED: Denies dysuria or urinary frequency Musculoskeletal Musculoskeletal: Reports other Details: Mild bilateral hip/pelvic pain ; Denies arthralgias or myalgias Integumentary Denies rash Neurologic Neurologic: Reports weakness; Denies headache(s) or paresthesias Hematologic/Lymphatic Hematologic/Lymphatic: Denies easy bleeding or easy bruising EXAM Physical Exam Const Vital Signs: 01/19/25 07:21 01/19/25 07:26 Temperature 97.8 F Temperature Source Oral Pulse Rate 96 Respiratory Rate 15 Respiratory Effort Normal Respiratory Depth Normal Respiratory Pattern Normal Blood Pressure 107/67 Blood Pressure Mean 80 Oxygen Delivery Method Room Air Positive well developed Constitutional Narrative: Generally weak appearing General Appearance ED: well developed, NAD and pallor HEENT Reports TM's clear and dry mucous membranes Negative for trauma Tympanic Membrane ED: Yes TM's clear Mouth ED: Yes dry mucous membranes Mouth: dry mucous membranes Eyes PERRL and EOMs intact bilaterally General Eye ED: Negative for scleral icterus Neck supple and no JVD Chest Wall inspection of chest normal and palpation of chest normal Resp normal respiratory effort and clear to auscultation bilaterally Cardio regular rate, regular rhythm and no murmurs GI normal to inspection, nondistended, normoactive bowel sounds, non-tender and non-distended GI Narrative: No fluid wave present. Chaperoned rectal exam?brown stool. Hemoccult negative. Extremity normal to inspection Extremity Narrative: Mild tenderness with range of motion of the bilateral hips with no laterality present. No rotational deformity of the extremities. No other bony tenderness appreciated. General Extremety ED: Negative for edema General Extremity: Negative for edema Neuro oriented x3, CN's II-XII intact bilaterally and no sensory deficits noted Sensorium / Orientation: alert Motor Exam: general weakness Psych mental status grossly normal Skin no rashes or lesions noted General Skin Exam: pallor MDM MDM MDM Narrative Medical decision making narrative: Patient evaluated for generalized weakness and now fall. Seems to be more of a global weakness with no focal neurologic deficits. Differential includes symptomatic anemia, electrolyte abnormality, alcoholic ketoacidosis, ESTER, infection, hypoglycemia and intracranial hemorrhage. Patient is borderline tachycardic with a low normal blood pressure. Low suspicion for acute alcohol withdrawal at this time. He is not tremulous. Is given IV fluids in the emergency room. CBC shows a profound leukocytosis with a hemoglobin of 5.7 in addition he has thrombocytopenia with platelets of 50. This is megaloblastic anemia given his history of alcohol abuse question if this can be associated with B12/folic acid deficiency. Coags are normal. CMP shows mild transaminitis with a 2:1 ratio of AST to ALT. He has significant hyponatremia the sodium of 121, hypokalemia with a potassium of 2.9 and hypomagnesia with a level of 1.0. He started on replacement the emergency room. He is ordered 2 units of blood. Rectal exam is performed whichis occult negative. Patient be admitted for electrolyte replacement as well as transfusion of blood products. I suspect this is all associated with his generalized weakness. CT of the brain is obtained which does not show any acuteprocess. Chest x-ray and pelvic x-ray obtained given his fall. They reviewed by myself as well as radiology neither show any acute process. Case discussed with hospitalist, Dr. Lea for admission. He remains hemodynamically stable in the emergency room and given that he does not have anysigns of active bleeding I feel that he is stable for admission to the PCU at this time. Chart review shows discharged home from 04/26/2024?at that time patient was admitted for severe anemia and possible colonic mass. He underwent EGD and colonoscopy which showed gastritis but no other acute process. He was transfused 2 units of blood during that time and his hemoglobin was stable. Lab Data Attestation: I reviewed the patient's lab results. Labs: Laboratory Results - last 24 hr 01/19/25 01/19/25 01/19/25 07:46 07:56 09:03 WBC 5.4 RBC 1.60 L Hgb 5.7 L* Hct 15.2 L MCV 95.0 H MCH 35.6 H MCHC 37.5 H RDW Std Deviation 46.5 H RDW Coeff of Adiel 13.6 Plt Count 50 L* MPV 11.5 Immature Gran % (Auto) 0.700 Neut % (Auto) 85.5 H Lymph % (Auto) 8.3 L Tripp % (Auto) 4.4 Eos % (Auto) 0.9 Baso % (Auto) 0.2 Absolute Neuts (auto) 4.6 Absolute Lymphs (auto) 0.45 L Nucleated RBC % 0 Differential Comment COMMENT Platelet Estimate MKD DEC Anisocytosis 2+ PT 13.8 INR 1.0 APTT 35.9 Sodium 121 L Potassium 2.9 L Chloride 85 L Carbon Dioxide 15.7 L Anion Gap 20 H BUN 15 Creatinine 1.02 Estim Creat Clear Calc 74.13 Est GFR (MDRD) Non-Af 83 BUN/Creatinine Ratio 14.4 Glucose 118 H Calcium 7.8 Magnesium 1.0 L Total Bilirubin 0.61 AST 49 H ALT 21 Alkaline Phosphatase 93 Total Creatine Kinase 19 L Total Protein 6.5 Albumin 3.5 Globulin 3.0 Albumin/Globulin Ratio 1.2 Lipase 36 Ethyl Alcohol < 10.1 Blood Type A POSITIVE Antibody Screen NEGATIVE Crossmatch See Detail ABG Data ABG results: ABG 01/19/25 07:52 Specimen Type SAGRARIO Sample Site Not entered VBG pH 7.38 VBG pO2 81 H VBG HCO3 16 L VBG Total CO2 17 L VBG O2 Sat (Calc) 96 H VBG Base Excess -10 L POC Mix VBG pCO2 Pt Tmp 26.8 L O2 Delivery Device Not entered Radiography Chest X-Ray - ED: 1 View, Read by ED Physician, Read by Radiologist and No AcuteDisease Diagnostic Testing: Clinical Impression(s) from Imaging Studies Pelvis X-Ray 01/19/25 07:31 IMPRESSION: No acute fracture or dislocation. Right hip replacement with femoral prosthesis partially imaged. Reading Location: [facility] Chest X-Ray 01/19/25 08:20 IMPRESSION: No evidence of acute disease. Reading Location: [facility] Brain CT 01/19/25 08:22 IMPRESSION: No intracranial hemorrhage, mass effect or calvarial fracture. Volume loss, atrophy appears moderate for age. Reading Location: [facility] Management Discussion w/another healthcare provider: Hospitalist Discharge Plan Triage Chief Complaint: Fall ED Provider: Milagro Sanders Dx/Rx/DC Orders Clinical Impression: Anemia, Acute hyponatremia, Acute hypokalemia, Hypomagnesemia, Weakness generalized Primary Care Provider: Emanuel Macedo Chi Disposition Disposition: Acute Care Hospital [facility] What to do if you have Problems For any increased pain, shortness of breath, bleeding, nausea or vomiting, chestpain, or any unexpected problems, contact your Primary Care Provider. Call [facility] ([phone]) or report to the closest Emergency Room. Call 911 if necessary. 01/19/25 1449 <Electronically signed by Milagro Sanders DO> Cosigner Signature (if applicable): CC: Dr. Emanuel Macedo MD ~ Signed [facility] Work Phone: 1(423) 268-312105-07-2025 History and physical note [facility] Medical Records Department [address] [place] [address] H&P Exam - Hospitalist 01/19/25 1032 MR#: [id number] Acct: [id number] Name: KIM CALDWELL Rep #:[id number] : 1960 64 From: Shorty Knight PCP: Dr. Emanuel Macedo MD Status:ADM I N Location: [place] [address] HPI - General General Date of Admission: 01/19/25 Date of Service: 01/19/25 Chief Complaint: Fall yesterday, severe anemia and thrombocytopenia. HPI Narrative KIM CALDWELL, is a 64 M with history of chronic alcohol use came to ED when he fell into the wall after losing balance. He landed on his buttocks but no majorinjury. For past 1 week he has been feeling very weak, unsteady gait, decreasedappetite and energy. Denies syncope. No abdominal pain. In ED, patient was found to have severe anemia and thrombocytopenia and patient denies any externalloss of blood including hematemesis melena hematochezia, hematuria, hemoptysis or major injury or hematoma. Patient also had recent EGD and colonoscopy which did not show any major cause of bleeding.Stool for occult blood in ED negative. BP low normal 107/67 with heart rate 96 per blood. 2 units of PRBC ordered and patient further admitted. Social history: Patient drinks vodka, 1/4th of 16 ounce glass and three fourths of water almost daily. He has been drinking alcohol for a long time. He smokescigarettes. Was smoking 1 pack before andrecently cut down to half pack per day. Denies [place] or other substance use [facility] Medical History Closed fracture of right hip Home Medications ?Medication ?Instructions ?Recorded ?Last Taken ?Type mirtazapine 7.5 mg tablet 7.5 mg PO QHS mental health 04/21/24 01/18/25 History pantoprazole 40 mg tablet,delayed 40 mg PO DAILY #30 t abs 04/26/24 Unknown Rx release (Protonix) ascorbic acid (vitamin C) 500 mg 500 mg PO DAILY 01/19 Unknown History tablet losartan 100 mg tablet 100 mg PO QHS 01/19/25 Unkno wn History Allergy/AdvReac Type Severity Reaction Status Date / Time No Known Allergies Allergy Verified 08/16/23 05:09 Surgical History S/P total hip arthroplasty Hx of neck surgery Social History Smoking Status: Current some day smoker tobacco type: cigarettes alcohol intake: current alcohol intake frequency: a few times a week substance use type: does not use ROS ROS Narrative Constitutional: Reports fatigue and weakness. Loss of appetite. No fever. HEENT: Reports systems reviewed and no addt'l complaints, except as documented Respiratory/Chest: No acute shortness of breath or respiratory distress or wheezing. CVS: Denies chest pain or shortness of breath. Gastrointestinal: Denies coffee ground emesis, hematemesis or vomiting Genitourinary: Denies burning urination or new urinary tract symptoms Musculoskeletal: Had right hip surgery in the past. Decreased lower extremity strength and balance.Fall Neurologic: Denies seizure-like symptoms. skin: No ulcer. No rash Endocrinology: Reports systems reviewed and no addt'l complaints, except as documented Hematologic/Lymphatic: Reports systems reviewed and no addt'l complaints, exceptas documented Rest 14 ROS are negative except as mentioned in HPI Vital Signs Vital Signs Vital Signs: 01/19/25 07:21 01/19/25 07:26 Temperature 97.8 F Temperature Source Oral Pulse Rate 96 Respiratory Rate 15 Respiratory Effort Normal Respiratory Depth Normal Respiratory Pattern Normal Blood Pressure 107/67 Blood Pressure Mean 80 Oxygen Delivery Method Room Air Weight Weight: 158 lb 11.725 oz Body Mass Index (BMI) 23.4 Physical Exam Narrative General: Alert, Oriented x3, Cooperative HEENT: Pale conjunctiva. Atraumatic, PERRLA, EOMI, Normocephalic. Oral: Oral mucosa dry. No Gingival or Mucosal Lesions/ Ulcerations Neck: Supple, No JVD, Negative Carotid Bruits Chest wall/Lungs: Air entry diminished in bilateral lung bases. Mild bilateralexpiratory rhonchi Cardiovascular: Regular rate and rhythm, Normal S1,S2, No M/G/R Abdomen: Bowel Sounds Present, Soft, Non Tender, Non-Distended : No dysuria. No renal angle tenderness. No suprapubic tenderness. Extremities: No edema, Capillary Refill Less than 3 Seconds Skin: No rashes, No breakdown Musculoskeletal: Muscle strength 4+/5 at hips and knee joints bilaterally. ROM fully intact. No Tenderness to Palpation of Joints or Extremities Neurological: Cranial nerves II-XII grossly intact, DTR 2+/4. No acute focal neurological deficit. Psych/Mental Status: Normal Affect, Appropriate. Results Lab / Micro Data 01/19/25 07:56 01/19/25 07:56 Labs: Laboratory Results - last 24 hr 01/19/25 07:46: Ethyl Alcohol < 10.1 01/19/25 07:56: WBC 5.4, RBC 1.60 L, Hgb 5.7 L*, Hct 15.2 L, MCV 95.0 H, MCH 35.6 H, MCHC 37.5 H, RDW Std Deviation 46.5 H, RDW Coeff of Adiel 13.6, Plt Count 50 L*, MPV 11.5, Immature Gran % (Auto) 0.700, Neut % (Auto) 85.5 H, Lymph % (Auto) 8.3 L, Tripp % (Auto) 4.4, Eos % (Auto) 0.9, Baso % (Auto) 0.2, Absolute Neuts (auto) 4.6, Absolute Lymphs (auto) 0.45 L, Nucleated RBC % 0, DifferentialComment COMMENT, Platelet Estimate MKD DEC, Anisocytosis 2+, PT 13.8, INR 1.0, APTT 35.9, Sodium 121 L, Potassium 2.9 L, Chloride 85 L, Carbon Dioxide 15.7 L, Anion Gap 20 H, BUN 15, Creatinine 1.02, Estim Creat Clear Calc 74.13, Est GFR (MDRD) Non-Af 83, BUN/Creatinine Ratio 14.4, Glucose 118 H, Calcium 7.8, Magnesium 1.0 L, Total Bilirubin 0.61, AST 49 H, ALT 21, Alkaline Phosphatase 93,Total CreatineKinase 19 L, Total Protein 6.5, Albumin 3.5, Globulin 3.0, Albumin/Globulin Ratio 1.2, Lipase 36 01/19/25 09:03: Blood Type A POSITIVE, Antibody Screen NEGATIVE, Crossmatch See Detail Micro: Microbiology 01/19/25 09:16 Stool Stool Occult Blood (MARIZOL) - Final ABG Data ABG results: ABG 01/19/25 07:52 Specimen Type SAGRARIO Sample Site Not entered VBG pH 7.38 VBG pO2 81 H VBG HCO3 16 L VBG Total CO2 17 L VBG O2 Sat (Calc) 96 H VBG Base Excess -10 L POC Mix VBG pCO2 Pt Tmp 26.8 L O2 Delivery Device Not entered Imaging Radiology Impression Pelvis X-Ray 01/19/25 07:31 IMPRESSION: No acute fracture or dislocation. Right hip replacement with femoral prosthesis partially imaged. Reading Location: [facility] Chest X-Ray 01/19/25 08:20 IMPRESSION: No evidence of acute disease. Reading Location: [facility] Brain CT 01/19/25 08:22 IMPRESSION: No intracranial hemorrhage, mass effect or calvarial fracture. Volume loss, atrophy appears moderate for age. Reading Location: [facility] Assessment & Plan Assessment/Plan (1) Chronic hyponatremia: PLAN: Plan This 64-year-old gentleman being admitted for severe generalized weakness, gait instability for 1 that, fall today and found severe anemia thrombocytopenia in ED 1. Severe anemia and thrombocytopenia probably due to chronic alcoholism/BM suppression:. H&H 5.7/15%. Platelet count 50,000. MCV 95. RDW 13.6. ALC low, lymphopenia. stool for occult blood negative. Units of PRBC ordered. Reticulocyte panel, LDH, haptoglobin ordered. TSH, B12 and folic acid ordered. Patient was last admitted in April 2020 for advanced hide EGD and colonoscopy as mentioned below EGD on 04/2024 Impressions : - No gross lesions in the duodenal bulb, in the first portion of the duodenum and in the second portion of the duodenum. No specimens collected. - Gastritis. Biopsied. - Small hiatal hernia. No specimens collected. - Z-line regular, 38 cm from the incisors. Biopsied. - The examination was otherwise normal. Patient was prescribed sucralfate twice daily and PPI Pathology shows mild gastritis, GE junction, chronic inflammation but negative for metaplasia.Negative for H. pylori Colonoscopy 05/04/2024 Impression: - Nodular mucosa at the appendiceal orifice. Biopsied. - Tortuous colon. No specimens collected. - Diverticulosis in the sigmoid colon. No specimens collected. - The examination was otherwise normal on direct and retroflexion views. 2. Fall, generalized weakness, ambulatory dysfunction: PT and OT ordered. CK is low suggestive of low muscle mass. AST 49 probably from chronic alcohol use. ALT normal. 3. Severe hypokalemia and hypomagnesemia: IV potassium and magnesium replacement ordered. Serum phosphorus ordered. 4. Acute on chronic hyponatremia: Serum sodium was 126 in August 2024. [id number]. Rapidly related to chronic alcohol use with decreased solute intake. IV normal saline ordered 5. Increased anion gap metabolic acidosis: Bicarb is low at about 15.8, anion gap 20. But venous pHis normal 7.38 with with total CO2 17. Mixed pCO2 26.8. Hard to interpret rate with venous ABG. Seems most likely due to alcoholic ketoacidosis. 6. Right subcrepitant fracture in August 2023 when he had right total hip replacement then. No acute issues 7. Chronic cigarette smoking and chronic alcohol use dependence, [facility] 24-hour monitoring ordered. 8. DVT prophylaxis: Pharmacological prophylaxis contraindicated. Bilateral SCDs Living will/advanced directive/end of life care: Patient does not have living will or advanced directive. He does not have dilated power of managing attorney for health. After discussion of benefits/risks procedures involved with full code,DNR CC arrest and DNR CC, the patient opted for DNR CC arrest with no intubation Patient doesn't want artificial life support including intubation, tube feed, ventilator and/chest compression, central venous catheter, vasopressor and DC shock if needed Total time spent in [id number] encounter in discussion of advanced directive 17 minutes. Microbiology Past 72 Hours 01/19/25 09:16 Stool Stool Occult Blood (MARIZOL) - Final Laboratory Results 01/19/25 07:46: Ethyl Alcohol < 10.1 01/19/25 07:52: Specimen Type SAGRARIO, Sample Site Not entered, VBG pH 7.38, VBG pO281 H, VBG HCO3 16 L, VBG Total CO2 17 L, VBG O2 Sat (Calc) 96 H, VBG Base Excess-10 L, POC Mix VBG pCO2 Pt Tmp 26.8 L, O2 Delivery Device Not entered 01/19/25 07:56: WBC 5.4, RBC 1.60 L, Hgb 5.7 L*, Hct 15.2 L, MCV 95.0 H, MCH 35.6 H, MCHC 37.5 H, RDW Std Deviation 46.5 H, RDW Coeff of Adiel 13.6, Plt Count 50 L*, MPV 11.5, Immature Gran % (Auto) 0.700, Neut % (Auto) 85.5 H, Lymph % (Auto) 8.3 L, Tripp % (Auto) 4.4, Eos % (Auto) 0.9, Baso % (Auto) 0.2, Absolute Neuts (auto) 4.6, Absolute Lymphs (auto) 0.45 L, Nucleated RBC % 0, DifferentialComment COMMENT, Platelet Estimate MKD DEC, Anisocytosis 2+, PT 13.8, INR 1.0, APTT 35.9, Sodium 121 L, Potassium 2.9 L, Chloride 85 L, Carbon Dioxide 15.7 L, Anion Gap 20 H, BUN 15, Creatinine 1.02, Estim Creat Clear Calc 74.13, Est GFR (MDRD) Non- Af 83, BUN/Creatinine Ratio 14.4, Glucose 118 H, Calcium 7.8, Magnesium 1.0 L, Total Bilirubin 0.61, AST 49 H, ALT 21, Alkaline Phosphatase 93, Total Creatine Kinase 19 L, Total Protein 6.5, Albumin 3.5, Globulin 3.0, Albumin/Globulin Ratio1.2, Lipase 36 01/19/25 09:03: Blood Type A POSITIVE, Antibody Screen NEGATIVE, Crossmatch See Detail Charges/Coding Visit Charges Inpatient E&M: 15298 Init Hosp L3 Procedures Hospitalists Procedures: 99623 Advncd Care Plan 30 Min 01/19/25 1502 Cosigner Signature (if applicable): CC: Dr. Shorty Lea MD; Dr. Emanuel Macedo MD~ Signed [facility]05-07-2025 Discharge summary [facility] Medical Records Department [address] [place] [address] Emergency Department Summary 01/19/25 MR#: [id number] Acct: [id number] Name: KIM CALDWELL Rep #:[id number] : 1960 64 From: Milagro Gonzalez PCP: Dr. Emanuel Macedo MD Status:ADM I N Location: [place] [address] HPI History of Present Illness Chief Complaint: Fall Informant: patient Narrative Narrative: Patient is 64-year-old male with history of prior right hip fracture and regularalcohol use presenting from home via EMS for generalized weakness and fall. Patient has had progressively worsening generalized weakness for the past week. This morning when he was walking he tried to turn and lost his balance and fell into the wall. He landed on his buttocks. Denies hitting his head. Given how weak he was he finally agreed to come to the hospital (significant other has been pushing for this for a couple days now). He notes he has had some associated nausea and vomiting has been clear/mucus. He does not recall when his last bowel movement is. Denies any abdominal pain. Denies any fever or chills. Denies any associated numbness or tingling. Denies any sick contacts. Does not know what color herstools have been. Denies any urinary symptoms. Denies any vertigo. Denies any history of alcohol withdrawal/DTs. His states he is an alcoholic but patient states he drinks daily but it is not that much. Notes that he is having some pelvic/bilateral hip pain but thinks it is because he has not been walking or moving around. No other complaints or concerns reported at this time. No sick contacts reported. [facility] Medical History Closed fracture of right hip Home Medications ?Medication ?Instructions ?Recorded ?Last Taken ?Type mirtazapine 7.5 mg tablet 7.5 mg PO QHS mental health 04/21/24 01/18/25 History pantoprazole 40 mg tablet,delayed 40 mg PO DAILY #30 t abs 04/26/24 Unknown Rx release (Protonix) ascorbic acid (vitamin C) 500 mg 500 mg PO DAILY 01/19 Unknown History tablet losartan 100 mg tablet 100 mg PO QHS 01/19/25 Unkno wn History Allergy/AdvReac Type Severity Reaction Status Date / Time No Known Allergies Allergy Verified 08/16/23 05:09 Surgical History S/P total hip arthroplasty Hx of neck surgery Social History Smoking Status: Current some day smoker tobacco type: cigarettes alcohol intake: current alcohol intake frequency: a few times a week substance use type: does not use ROS ROS ED Constitutional Constitutional ED: Reports other; Denies chills or fever(s) Eyes Eyes: Denies blurry vision or change in vision Cardiovascular Cardiovascular: Denies chest pain Respiratory/Chest Respiratory/Chest: Denies cough or dyspnea Gastrointestinal Gastrointestinal: Reports nausea and vomiting; Denies abdominal pain, constipation, diarrhea or melena Genitourinary Genitourinary ED: Denies dysuria or urinary frequency Musculoskeletal Musculoskeletal: Reports other Details: Mild bilateral hip/pelvic pain ; Denies arthralgias or myalgias Integumentary Denies rash Neurologic Neurologic: Reports weakness; Denies headache(s) or paresthesias Hematologic/Lymphatic Hematologic/Lymphatic: Denies easy bleeding or easy bruising EXAM Physical Exam Const Vital Signs: 01/19/25 07:21 01/19/25 07:26 Temperature 97.8 F Temperature Source Oral Pulse Rate 96 Respiratory Rate 15 Respiratory Effort Normal Respiratory Depth Normal Respiratory Pattern Normal Blood Pressure 107/67 Blood Pressure Mean 80 Oxygen Delivery Method Room Air Positive well developed Constitutional Narrative: Generally weak appearing General Appearance ED: well developed, NAD and pallor HEENT Reports TM's clear and dry mucous membranes Negative for trauma Tympanic Membrane ED: Yes TM's clear Mouth ED: Yes dry mucous membranes Mouth: dry mucous membranes Eyes PERRL and EOMs intact bilaterally General Eye ED: Negative for scleral icterus Neck supple and no JVD Chest Wall inspection of chest normal and palpation of chest normal Resp normal respiratory effort and clear to auscultation bilaterally Cardio regular rate, regular rhythm and no murmurs GI normal to inspection, nondistended, normoactive bowel sounds, non-tender and non-distended GI Narrative: No fluid wave present. Chaperoned rectal exam?brown stool. Hemoccult negative. Extremity normal to inspection Extremity Narrative: Mild tenderness with range of motion of the bilateral hips with no laterality present. No rotational deformity of the extremities. No other bony tenderness appreciated. General Extremety ED: Negative for edema General Extremity: Negative for edema Neuro oriented x3, CN's II-XII intact bilaterally and no sensory deficits noted Sensorium / Orientation: alert Motor Exam: general weakness Psych mental status grossly normal Skin no rashes or lesions noted General Skin Exam: pallor MDM MDM MDM Narrative Medical decision making narrative: Patient evaluated for generalized weakness and now fall. Seems to be more of a global weakness withno focal neurologic deficits. Differential includes symptomatic anemia, electrolyte abnormality, alcoholic ketoacidosis, ESTER, infection, hypoglycemia and intracranial hemorrhage. Patient is borderline tachycardic with a low normal blood pressure. Low suspicion for acute alcoholwithdrawal at this time. He is not tremulous. Is given IV fluids in the emergency room. CBC shows a profound leukocytosis with a hemoglobin of 5.7 in addition he has thrombocytopenia withplatelets of 50. This is megaloblastic anemia given his history of alcohol abuse question if this can be associated with B12/folic acid deficiency. Coags are normal. CMP shows mild transaminitis with a 2:1 ratio of AST to ALT. He has significant hyponatremia the sodium of 121, hypokalemia with a potassium of 2.9 and hypomagnesia with a level of 1.0. He started on replacement the emergency room. He is ordered 2 units of blood. Rectal exam is performed whichis occult negative. Patient be admitted for electrolyte replacement as well as transfusion of blood products. I suspect this is all associated with his generalized weakness. CT of the brain is obtained which does not show any acuteprocess. Chest x-ray and pelvic x-ray obtained given hisfall. They reviewed by myself as well as radiology neither show any acute process. Case discussed with hospitalist, Dr. Lea for admission. He remains hemodynamically stable in the emergency room and given that he does not have anysigns of active bleeding I feel that he is stable for admission to the PCU at this time. Chart review shows discharged home from 04/26/2024?at that time patient was admitted for severe anemia and possible colonic mass. He underwent EGD and colonoscopy which showed gastritis but no other acute process. He was transfused 2 units of blood during that time and his hemoglobin was stable. Lab Data Attestation: I reviewed the patient's lab results. Labs: Laboratory Results - last 24 hr 01/19/25 01/19/25 01/19/25 07:46 07:56 09:03 WBC 5.4 RBC 1.60 L Hgb 5.7 L* Hct 15.2 L MCV 95.0 H MCH 35.6 H MCHC 37.5 H RDW Std Deviation 46.5 H RDW Coeff of Adiel 13.6 Plt Count 50 L* MPV 11.5 Immature Gran % (Auto) 0.700 Neut % (Auto) 85.5 H Lymph % (Auto) 8.3 L Tripp % (Auto) 4.4 Eos % (Auto) 0.9 Baso % (Auto) 0.2 Absolute Neuts (auto) 4.6 Absolute Lymphs (auto) 0.45 L Nucleated RBC % 0 Differential Comment COMMENT Platelet Estimate MKD DEC Anisocytosis 2+ PT 13.8 INR 1.0 APTT 35.9 Sodium 121 L Potassium 2.9 L Chloride 85 L Carbon Dioxide 15.7 L Anion Gap 20 H BUN 15 Creatinine 1.02 Estim Creat Clear Calc 74.13 Est GFR (MDRD) Non-Af 83 BUN/Creatinine Ratio 14.4 Glucose 118 H Calcium 7.8 Magnesium 1.0 L Total Bilirubin 0.61 AST 49 H ALT 21 Alkaline Phosphatase 93 Total Creatine Kinase 19 L Total Protein 6.5 Albumin 3.5 Globulin 3.0 Albumin/Globulin Ratio 1.2 Lipase 36 Ethyl Alcohol < 10.1 Blood Type A POSITIVE Antibody Screen NEGATIVE Crossmatch See Detail ABG Data ABG results: ABG 01/19/25 07:52 Specimen Type SAGRARIO Sample Site Not entered VBG pH 7.38 VBG pO2 81 H VBG HCO3 16 L VBG Total CO2 17 L VBG O2 Sat (Calc) 96 H VBG Base Excess -10 L POC Mix VBG pCO2 Pt Tmp 26.8 L O2 Delivery Device Not entered Radiography Chest X-Ray - ED: 1 View, Read by ED Physician, Read by Radiologist and No AcuteDisease Diagnostic Testing: Clinical Impression(s) from Imaging Studies Pelvis X-Ray 01/19/25 07:31 IMPRESSION: No acute fracture or dislocation. Right hip replacement with femoral prosthesis partially imaged. Reading Location: [facility] Chest X-Ray 01/19/25 08:20 IMPRESSION: No evidence of acute disease. Reading Location: [facility] Brain CT 01/19/25 08:22 IMPRESSION: No intracranial hemorrhage, mass effect or calvarial fracture. Volume loss, atrophy appears moderate for age. Reading Location: [facility] Management Discussion w/another healthcare provider: Hospitalist Discharge Plan Triage Chief Complaint: Fall ED Provider: Milagro Sanders Dx/Rx/DC Orders Clinical Impression: Anemia, Acute hyponatremia, Acute hypokalemia, Hypomagnesemia, Weakness generalized Primary Care Provider: Emanuel Macedo Chi Disposition Disposition: Acute Care Hospital [facility] What to do if you have Problems For any increased pain, shortness of breath, bleeding, nausea or vomiting, chestpain, or any unexpected problems, contact your Primary Care Provider. Call [facility] ([phone]) or report tothe closest Emergency Room. Call 911 if necessary. 01/19/25 1449 Cosigner Signature (if applicable): CC: Dr. Emanuel Macedo MD ~ Signed [facility]05-07-2025 Evaluation note* Diagnosis Onset Date Resolution Status Admit Date Chronic hyponatremia chronic January 19, 2025 10:30am [facility] Work Phone: 1(864) 479-315205-07-2025 Evaluation note* Diagnosis Onset Date Resolution Status Admit Date Chronic hyponatremia inactive January 19, 2025 10:30am [facility] Work Phone: 1(804) 144-948505-07-2025 Radiology Diagnostic study note [facility] Imaging Services [address] [place], [place] [address] Pelvis 1 or 2 Views MR#: [id number] Acct: [id number] Name: KIM CALDWELL Rep #: [id number] : 1960 M 64 From: Merlin Vaca MD PCP: Dr. Emanuel Macedo MD Status: REG E R Study:Pelvis 1 or 2 Views Date of Exam: 01/19/25 Exam# [id number] Ordering Dr: Jass Sanders DO PROCEDURE: PELVIS 1 OR 2 VIEWS 01/19/2025 REASON FOR EXAM: FALL TECHNIQUE: 1 view(s) of the pelvis. COMPARISON: None available FINDINGS: No acute fracture or dislocation. Apparent osseous fusion of the right SI jointsuggested. Right hipreplacement with femoral prosthesis partially imaged. Left hip osteoarthrosis. Pubic symphysis appears within limits. RAD/Pelvis 1 or 2 Views IMPRESSION: No acute fracture or dislocation. Right hip replacement with femoral prosthesis partially imaged. Reading Location: [facility] CC: Dr. Milagro Sanders DO; Dr. Emanuel Macedo MD ~ Supervisor Scrap Preparation: Signed [facility]05-07-2025 Radiology Diagnostic study note [facility] Imaging Services [address] [place] [address] Chest 1 View (Portable) MR#: [id number] Acct: [id number] Name: KIM CALDWELL Rep #: [id number] : 1960 M 64 From: Merlin Vaca MD PCP: Dr. Emanuel Macedo MD Status: REG E R Study:Chest 1 View (Portable) Date of Exam: 01/19/25 Exam# [id number] Ordering Dr: Jass Sanders DO PROCEDURE: CHEST 1 VIEW (PORTABLE) 01/19/2025 REASON FOR EXAM: WEAKNESS TECHNIQUE: Frontal view of the chest. COMPARISON: 04/21/2024 FINDINGS: The lungs appear clear. Pulmonary vascularity appears within limits. No pneumothorax or pleural effusion. The cardiac and mediastinal contours appear within limits. Atherosclerotic change at the aorticarch. Old right-sided rib fractures and right clavicle fracture deformity again noted. RAD/Chest 1 View (Portable) IMPRESSION: No evidence of acute disease. Reading Location: [facility] CC: Dr. Milagro Sanders DO; Dr. Emanuel Macedo MD ~ Supervisor Scrap Preparation: Signed [facility]05-07-2025 Radiology Diagnostic study note [facility] Imaging Services [address] [place] [address] Brain/Head without Contrast MR#: [id number] Acct: [id number] Name: KIM CALDWELL Rep #: [id number] : 1960 M 64 From: Merlin Vaca MD PCP: Dr. Emanuel Macedo MD Status: REG E R Study:Brain/Head without Contrast Date of Exa m: 01/19/25 Exam# [id number] Ordering Dr: Jass Sanders DO PROCEDURE: BRAIN/HEAD WITHOUT CONTRAST 01/19/2025 REASON FOR EXAM: WEAKNESS, FALL TECHNIQUE: Head CT without intravenous contrast. Coronal and Sagittal reconstruction serieswere provided. One or more dose reduction techniques were used (e.g., Automated exposure control, adjustment of the mA and/or kV according to patient size, use of iterative reconstruction technique. RADIATION DOSE SUMMARY: CTDlvol: 44.99 mGy DLP: 829.85 mGycm COMPARISON: None available FINDINGS: No intracranial hemorrhage, mass effect or calvarial fracture. The ventricles are within limits andmidline. Volume loss, atrophy appears moderate for age. The visualized paranasal sinuses, mastoids and orbits appear within limits. CT/Brain/Head without Contrast IMPRESSION: No intracranial hemorrhage, mass effect or calvarial fracture. Volume loss, atrophy appears moderate for age. Reading Location: [facility] CC: Dr. Milagro Sanders DO; Dr. Emanuel Macedo MD ~ Supervisor Scrap Preparation: Signed [facility]08-12-2024 [facility]12-06-2023 Progress note Author Shorty Lea [facility] August 20, 2023 5:18pm Note Date/Time August 20, 2023 5 :18pm [facility] Medical Records Department [address] [place] [address] Progress Note - Hospitalist 08/20/23 1715 MR#: [id number] Acct: [id number] Name: KIM CALDWELL Rep #:[id number] : 1960 63 From: Shorty Knight PCP: PASTORA Luz tus:ADM IN Location: [place] [address] Reason for Visit Reason for Visit: Diagnoses Hypokalemia (08/16/23) Contusion of right shoulder, initial encounter (08/16/23) Fracture of unspecified part of neck of right femur, initial encounter for closed fracture (08/16/23) Presence of unspecified artificial hip joint (08/16/23) Objective Data Objective Data Vital Signs: Vital Signs Temp Pulse Resp BP Pulse Ox O2 Del Method 98.1 F 90 15 147/94 H 100 Room Air 08/20/23 14:00 08/20/23 14:00 08/20/23 14:00 08/20/23 14:00 08/20/23 14:00 08/20/23 14:00 Oxygen Delivery Method Room Air Weight: 175 lb 14.4 oz Body Mass Index (BMI) 25.2 Intake & Output: Intake and Output for Last 24 Hours 08/18/23 08/19/23 08/20/23 23:59 23:59 23:59 Intake Total 2009 800 / 800 300 / 300 Output Total 1150 / 2350 3000 / 3000 Balance 860 / -340 -2200 / -2200 300 / 300 Lab / Micro Data 08/20/23 10:38 08/20/23 10:38 Labs: Laboratory Results - last 24 hr 08/20/23 10:38: WBC 6.1, RBC 2.65 L, Hgb 8.5 L, Hct 25.4 L, MCV 95.8 H, MCH 32.1H, MCHC 33.5, RDW Std Deviation 47.1 H, RDW Coeff of Adiel 13.5, Plt Count 164, MPV 9.6, Immature Gran % (Auto) 0.700, Neut % (Auto) 72.6 H, Lymph % (Auto) 12.1L, Tripp % (Auto) 9.8, Eos % (Auto) 4.1, Baso % (Auto) 0.7, Absolute Neuts (auto)4.5, Absolute Lymphs (auto) 0.74 L, Nucleated RBC % 0, Sodium 132 L, Potassium 3.4 L, Chloride 104, Carbon Dioxide 22.0, Anion Gap 6, BUN 10, Creatinine 0.98, Estim Creat Clear Calc 80.70, Est GFR (MDRD) Af Amer 99, Est GFR (MDRD) Non-Af 82, BUN/Creatinine Ratio 10.2, Glucose 153 H, Calcium 8.7 Rhythm Strip Rhythm Strip: Sinus Rhythm Rate: 85 Ectopy: None Physical Exam Narrative Seen and examined. Patient did not had bowel movement since admission. On senna S2 tablet twice daily. Feels like urgency for defecation. Physical exam General: Alert, Oriented x3, Cooperative HEENT: Atraumatic, PERRLA, EOMI, Normocephalic Oral: No Gingival or Mucosal Lesions/ Ulcerations Neck: Supple, No JVD, Negative Carotid Bruits Lungs: Air entry diminished in bilateral lung bases. No crepitation/rhonchi Cardiovascular: Regular rate, Regular Rhythm, Normal S1, Normal S2, No murmurs Abdomen: Bowel Sounds Present, Soft, Non Tender, Non-Distended : No renal angle tenderness. No suprapubic tenderness. Extremities: No edema, Capillary Refill Less than 3 Seconds Skin: No rashes, No breakdown Musculoskeletal: Right hip surgical dressing dry. Patient out of bed. No severe tenderness to Palpation of Joints or Extremities Neurological: Cranial nerves II-XII grossly intact, DTR 2+/4. No acute focal neurological deficit. Psych/Mental Status: Normal Affect, Appropriate. 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 Patient had severe right hip pain and found to have acute right hip fracture on x-ray. 1. #Acute RIght subcapital fracture due to mechanical fall * due to mechanical fall * right hip xray showed a right mildly displaced right humeral neck fracture * Patent had right total hip replacement by Dr. Obie Funk on 08/17/2023. * Orthopedics was consulted and then signed off later on after surgery * PT/OT on board * PO tylenol, PO oxycodone and IV morphine prn for pain * fall precautionsPatient has work compensation and prescription signed for walker. Prescription also given for oxycodone 2.5 to 5 mg every 6 hourly as needed for severe pain. Total 10 tablets. OARRS checked. Narcan score 90. Patient has constipation. On senna S2 tablet twice daily. MiraLAX added. Dulcolax 10 mg 1 dose now. 2. #Nicotine dependence: counseled to quit. Nicotine patch 21mg daily. DVT prophylaxis; aspirin 81 mg twice daily changed to Eliquis 2.5 mg twice daily. Charges/Coding Visit Charges Inpatient E&M: 53618 Subs Hosp L2 08/20/23 1718 <Electronically signed by Shorty Lea MD> Cosigner Signature (if applicable): CC: ~ Signed [facility] Work Phone: 1(149) 438-569512-06-2023 Discharge summary Author Shorty Lea [facility] August 21, 2023 12:49pm Note Date/Time August 20, 2023 3 :53pm [facility] Medical Records Department [address] [place] [address] Discharge Summary 08/21/23 1248 MR#: [id number] Acct: [id number] Name: KIM CALDWELL Rep #:[id number] : 1960 63 From: Shorty Knight PCP: PASTORA Luz tus:ADM IN Location: [place] [address] Providers Date of Admission: 08/16/23 Date of Discharge: 08/20/23 Primary Care Physician: PASTORA Luz Consultations 08/16/23 07:07 Consult: Orthopedics Routine Consulting Provider: Obie Funk Reason for Consult: right hip fxr. 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 Patient had severe right hip pain and found to have acute right hip fracture on x-ray. 1. #Acute RIght subcapital fracture due to mechanical fall * due to mechanical fall * right hip xray showed a right mildly displaced right humeral neck fracture * Patent had right total hip replacement by Dr. Obie Funk on 08/17/2023. * Orthopedics was consulted and then signed off later on after surgery * PT/OT on board * PO tylenol, PO oxycodone and IV morphine prn for pain * fall precautions Patient has work compensation and prescription signed for walker. Prescription also given for oxycodone 2.5 to 5 mg every 6 hourly as needed for severe pain. Total 10 tablets. OARRS checked. Narcan score 90. Patient has constipation. On senna S2 tablet twice daily. MiraLAX added. Advised to follow with PCP in 1 week. Prescription also given for Eliquis 2.5 mg twice daily for 1 month for DVT prophylaxis. 2. #Nicotine dependence: counseled to quit. Nicotine patch 21mg daily. DVT prophylaxis;on aspirin 81mg bid per orthopedic surgery Discharge medication reconciliation done. Discharge follow-up instructions completed. Discharge process discussed with the patient and all questions wereanswered to patient's satisfaction. Follow with PCP in 1 weeks and orthopedic surgery 2 weeks Total time spent, exact 35 minutes on discharge meds reconciliation, examination, coordination of care with nurses and ancillary staff, review of imaging and blood test and discussion with the patient on follow-up instructions. Medications at Discharge Home Medications acetaminophen 500 mg tablet 1,000 mg (2 x 500 mg) PO Q8 #0 tabs 08/20/23 apixaban 2.5 mg tablet (Eliquis) 2.5 mg PO BID 30 days #60 tabs 08/20/23 oxycodone 5 mg tablet 2.5 - 5 mg (0.5 - 1 x 5 mg) PO Q4H PRN PRN Pain Score 4- 103 days #10 tabs 08/20/23 polyethylene glycol 3350 17 gram/dose oral powder (Natura-LAX) 17 g PO DAILY #510 grams 12/06/23 sennosides 8.6 mg-docusate sodium 50 mg tablet (Stool Softener-Stimulant Laxative) 2 tab PO BID #0 tabs 08/20/23 Physical Exam Narrative Seen and examined. Patient stayed in small bowel since admission. On senna S2 tablet twice daily. Feels like urgency for defecation. Physical exam General: Alert, Oriented x3, Cooperative HEENT: Atraumatic, PERRLA, EOMI, Normocephalic Oral: No Gingival or Mucosal Lesions/ Ulcerations Neck: Supple, No JVD, Negative Carotid Bruits Lungs: Air entry diminished in bilateral lung bases. No crepitation/rhonchi Cardiovascular: Regular rate, Regular Rhythm, Normal S1, Normal S2, No murmurs Abdomen: Bowel Sounds Present, Soft, Non Tender, Non-Distended : No renal angle tenderness. No suprapubic tenderness. Extremities: No edema, Capillary Refill Less than 3 Seconds Skin: No rashes, No breakdown Musculoskeletal: Right hip surgical dressing dry. Patient out of bed. No severe tenderness to Palpation of Joints or Extremities Neurological: Cranial nerves II-XII grossly intact, DTR 2+/4. No acute focal neurological deficit. Psych/Mental Status: Normal Affect, Appropriate. Weight / BMI Weight Weight: 175 lb 14.4 oz Body Mass Index (BMI) 25.2 ABG / Lab / Microbiology Data 08/20/23 10:38 08/20/23 10:38 Laboratory: Laboratory Results - last 24 hr 08/20/23 10:38: WBC 6.1, RBC 2.65 L, Hgb 8.5 L, Hct 25.4 L, MCV 95.8 H, MCH 32.1H, MCHC 33.5, RDW Std Deviation 47.1 H, RDW Coeff of Adiel 13.5, Plt Count 164, MPV 9.6, Immature Gran % (Auto) 0.700, Neut % (Auto) 72.6 H, Lymph % (Auto) 12.1L, Tripp % (Auto) 9.8, Eos % (Auto) 4.1, Baso % (Auto) 0.7, Absolute Neuts (auto)4.5, Absolute Lymphs (auto) 0.74 L, Nucleated RBC % 0, Sodium 132 L, Potassium 3.4 L, Chloride 104, Carbon Dioxide 22.0, Anion Gap 6, BUN 10, Creatinine 0.98, Estim Creat Clear Calc 80.70, Est GFR (MDRD) Af Amer 99, Est GFR (MDRD) Non-Af 82, BUN/Creatinine Ratio 10.2, Glucose 153 H, Calcium 8.7 D/C Instructions Discharge Diet: No restrictions Weight Bearing Status: Weight bearing as tolerated Call your doctor if you observe: Fever of 101 or Higher, Coldness, Increased Pain, Numbness or Tingling, Change in Color, Inability to urinate, Inability to have a bowel movement, Shortness of breath, Dizziness, Fainting spells, Swellingin the ankles, Chest pain, Prolonged hiccupping, Increased palpitations (irregular heartbeat) and Calf discomfort When: IN 2 WEEKS Meaningful Use Info Meaningful Use Diagnoses (Choose all that apply): None applicable Discharge Plan Admission Admit Date/Time: 08/16/23 06:25 Primary Reason for Your Visit: Acute closed right hip fracture. Attending Provider: Shorty Lea Primary Care Provider: Sofia Adame NP Consulting Providers: Patrice Watkins; Obie Funk; Amaris Marks Discharge Orders/Prescriptions Prescriptions: New sennosides-docusate sodium [Stool Softener-Stimulant Laxat] 8.6-50 mg Tablet 2 tab PO BID Qty: 0 0RF Rx Instructions: Vcif-lua-uonmhlx. acetaminophen 500 mg Tablet 1,000 mg PO Q8 Qty: 0 0RF Rx Instructions: Qldm-ydz-uslkldw. 1000 mg every 8 hourly for 1 week and then as needed for 6 moderate to severepain. oxycodone 5 mg Tablet 2.5 - 5 mg PO Q4H PRN PRN (Reason: Pain Score 4-10) 3 Days Qty: 10 0RF Rx Instructions: 0.5 mg for moderate pain and 5 mg for severe pain. polyethylene glycol 3350 [Natura-LAX] 17 gram/dose powder 17 g PO DAILY Qty: 510 0RF Eliquis 2.5 mg tablet 2.5 mg PO BID 30 Days Qty: 60 0RF Referrals / Follow Up: Obie Funk MD [Med Staff - Active Staff] - Within 2 Weeks (For hip fracture.) Sofia Adame BUSINESS PROCESS MANAGER, BUSINESS PROCESS MANAGER-C [Primary Care Provider] - In 1 Week (Patient has constipation normal stool softener.) Disposition Disposition (needs filled in before D/C Order can be placed): Home Health Service Charges/Coding Visit Charges Inpatient E&M: 50841 Disch Hosp >30min 08/20/23 1553 <Electronically signed by Shorty Lea MD> Cosigner Signature (if applicable): CC: PASTORA Adame; Dr. Shorty Lea MD~ Signed ADDENDUM by Dr. Shorty Lea MD on 08/21/23 at 1249 Addendum Patient could not be discharged yesterday. It was evening. Home health serviceto start today. Patient not had a bowel movement even on Dulcolax 10 mg oral. Dulcolax suppository started. Patient is passing flatus Today. 08/21/23 1249<Electronically signed by Shorty Lea MD> Cosigner Signature (if applicable): cc: PASTORA Adame; Dr. Shorty Lea MD ~* Signed [facility] Work Phone: 1(689) 844-390612-06-2023 Discharge summary Author Shorty Lea [facility] August 21, 2023 12:44pm Note Date/Time August 20, 2023 3 :35pm [facility] Medical Records Department [address] [place] [address] Instructions for Home/Discharge Instructions 08/21/23 1025 MR#: [id number] Acct: [id number] Name: KIM CALDWELL Rep #:[id number] : 1960 63 From: Shorty Knight PCP: PASTORA Luz tus:ADM IN Discharge Instructions Diet Discharge Diet: No restrictions Activity Discharge Activity: May Not Drive Weight Bearing Status: Weight bearing as tolerated Dressing / Incision Call your doctor if you observe: Fever of 101 or Higher, Coldness, Increased Pain, Numbness or Tingling, Change in Color, Inability to urinate, Inability to have a bowel movement, Shortness of breath, Dizziness, Fainting spells, Swellingin the ankles, Chest pain, Prolonged hiccupping, Increased palpitations (irregular heartbeat) and Calf discomfort Follow Up Care When: IN 2 WEEKS Test Results: Test results from this visit will be discussed in further detail at your follow- up appointment, if applicable. Discharge Plan Admission Admit Date/Time: 08/16/23 06:25 Primary Reason for Your Visit: Acute closed right hip fracture. Attending Provider: Shorty Lea Primary Care Provider: Sofia Adame NP Consulting Providers: Patrice Watkins; Obie Funk; Amaris Marks Discharge Orders/Prescriptions Prescriptions: New sennosides-docusate sodium [Stool Softener-Stimulant Laxat] 8.6-50 mg Tablet 2 tab PO BID Qty: 0 0RF Rx Instructions: Bcfj-ayq-hiarogb. acetaminophen 500 mg Tablet 1,000 mg PO Q8 Qty: 0 0RF Rx Instructions: Rvwx-fjg-xjwdfkz. 1000 mg every 8 hourly for 1 week and then as needed for 6 moderate to severepain. oxycodone 5 mg Tablet 2.5 - 5 mg PO Q4H PRN PRN (Reason: Pain Score 4-10) 3 Days Qty: 10 0RF Rx Instructions: 0.5 mg for moderate pain and 5 mg for severe pain. polyethylene glycol 3350 [Natura-LAX] 17 gram/dose powder 17 g PO DAILY Qty: 510 0RF Eliquis 2.5 mg tablet 2.5 mg PO BID 30 Days Qty: 60 0RF Referrals / Follow Up: Sofia Adame BUSINESS PROCESS MANAGER, BUSINESS PROCESS MANAGER-C [Primary Care Provider] - In 1 Week (Patient has constipation normal stool softener.) Obie Funk MD [Med Staff - Active Staff] - Within 2 Weeks (For hip fracture.) Disposition Disposition (needs filled in before D/C Order can be placed): Home Health Service 08/20/23 1546<Electronically signed by Shorty Lea MD>Shorty Lea MD CC: BUSINESS PROCESS MANAGER-C Sofia Adame; Dr. Patrice Watkins DO; Dr. Amaris Marks MD; Dr. Obie Funk MD ~ Signed ADDENDUM by Dr. Shorty Lea MD on 08/21/23 at 1244 Patient could not go yesterday as it was evening. 08/21/23 1244<Electronically signed by Shorty Lea MD>Shorty Lea MD cc: BUSINESS PROCESS MANAGERYangC Sofia Adame; Dr. Patrice Watkins DO; Dr. Amaris Marks MD; Dr. Obie Funk MD ~* Signed [facility] Work Phone: 1(184) 861-376212-05-2023 Progress note Author Amaris [facility] August 19, 2023 3:39pm Note Date/Time August 19, 2023 1 1:07am [facility] Medical Records Department [address] [place] [address] Progress Note 08/19/23 1105 MR#: [id number] Acct: [id number] Name: QUINCY CALDWELL Rep #:[id number] : 1960 63 From: Amaris Marks MD PCP: PASTORA Luz tus:ADM IN Location: [place] [address] Subjective Subjective Patient seen and examined. He had no complaints. Pain is well controlled. Reviewof systems is otherwise negative. Objective Data Objective Data Vital Signs: Vital Signs Temp Pulse Resp BP Pulse Ox O2 Del Method 98.2 F 101 H 15 136/92 H 100 Room Air 08/19/23 08:00 08/19/23 08:00 08/19/23 08:00 08/19/23 08:00 08/19/23 08:00 08/19/23 08:00 Oxygen Delivery Method Room Air Weight: 175 lb 14.4 oz Body Mass Index (BMI) 25.2 Intake & Output: Intake and Output for Last 24 Hours 08/17/23 08/18/23 08/19/23 23:59 23:59 23:59 Intake Total 1378.25 / 1678.25 2009 400 / 400 Output Total 975 / 975 1150 / 2350 1900 / 1900 Balance 403.25 / 703.25 860 / -340 -1500 / -1500 Lab / Micro Data 08/19/23 06:58 08/18/23 05:25 Labs: Laboratory Results - last 24 hr 08/17/23 05:33: Diff Path Review Reviewed 08/19/23 06:58: WBC 4.8, RBC 2.55 L, Hgb 8.2 L, Hct 24.2 L, MCV 94.9 H, MCH 32.2H, MCHC 33.9, RDW Std Deviation 46.9 H, RDW Coeff of Adiel 13.5, Plt Count 112 L, MPV 9.5, Immature Gran % (Auto) 0.600, Neut % (Auto) 76.7 H, Lymph % (Auto) 10.8L, Tripp % (Auto) 9.4, Eos % (Auto) 2.3, Baso % (Auto) 0.2, Absolute Neuts (auto)3.7, Absolute Lymphs (auto) 0.52 L, Nucleated RBC % 0, Platelet Estimate SLT AUG Rhythm Strip Rhythm Strip: Sinus Rhythm Rate: 85 Ectopy: None Physical Exam Const alert, oriented x3, no apparent distress and well nourished General Appearance: cooperative HEENT normocephalic, head/scalp atraumatic and moist oral mucous membranes Eyes PERRL and EOMs intact bilaterally Neck no lymphadenopathy and supple Lymph Lymphatic: no lymphadenopathy noted and no lymphedema noted Resp normal respiratory effort, normal air movement, no retractions, no use of accessory muscles and clear to auscultation bilaterally Cardio regular rate, regular rhythm, S1 normal heart sound, S2 normal heart sound and no murmurs GI normal to inspection, nondistended, normoactive bowel sounds, soft to palpation,non-tender and non-distended Extremity normal capillary refill and no clubbing, cyanosis or edema Extremity Narrative: intact dressing over right hip General Extremity: no tenderness to palpation of joints or extremities Skin General Skin Exam: no breakdown Neuro CN's II-XII intact bilaterally, no focal motor deficits and no sensory deficits noted Sensorium / Orientation: awake and alert Speech: speech normal Motor Exam: strength 5/5 throughout and general weakness Psych thought process normal, cooperative and affect normal Appearance: appropriate Assessment & Plan Assessment/Plan (1) Closed fracture of right hip: QUALIFIERS: Encounter type: initial encounter Qualified Code(s): S72.001A - Fracture of unspecified part of neck of right femur, initial encounter for closed fracture PLAN: Plan #RIght subcapital fracture due to mechanical fall * due to mechanical fall * right hip xray showed a right mildly displaced subcapital fracture * today is POD 2 for right hip arthroplasty * Orthopedics on board * PT/OT on board * PO tylenol, PO oxycodone and IV morphine prn for pain * fall precautions * * #Nicotine dependence: counseled to quit. Nicotine patch 21mg daily. DVT prophylaxis;on aspirin 81mg bid per orthopedic surgery Disposition; awaiting placement Charges/Coding Visit Charges Inpatient E&M: 76180 Subs Hosp L2 08/19/23 1539 <Electronically signed by Amaris Marks MD> Amaris Marks MD Cosigner Signature (if applicable): CC: ~ Signed [facility] Work Phone: 1(697) 205-792512-04-2023 Progress note Author [facility] August 18, 2023 3:45pm Note Date/Time August 18, 2023 1 1:53[facility] Medical Records Department [address] [place] [address] Progress Note 08/18/23 1149 MR#: [id number] Acct: [id number] Name: QUINCY CALDWELL Rep #:[id number] : 1960 63 From: Amaris Marks MD PCP: PASTORA Luz tus:ADM [id number] Subjective Subjective Patient seen and examined. He compaline of the pain in the right hip being 9/10.He had no other complaints. Today is POD 1 for right hip replacement. He has remained hemodynamically stable. Objective Data Objective Data Vital Signs: Vital Signs Temp Pulse Resp BP Pulse Ox O2 Del Method 98.0 F 93 16 128/76 H 97 Room Air 08/18/23 06:51 08/18/23 06:51 08/18/23 06:51 08/18/23 06:51 08/18/23 06:51 08/18/23 06:51 Oxygen Delivery Method Room Air Weight: 175 lb 14.4 oz Body Mass Index (BMI) 25.2 Intake & Output: Intake and Output for Last 24 Hours 08/16/23 08/17/23 08/18/23 23:59 23:59 23:59 Intake Total 888.33 / 888.33 1378.25 / 1678.25 950 / 950 Output Total 950 / 1175 975 / 975 500 / 500 Balance -61.67 / -286.67 403.25 / 703.25 450 / 450 Lab / Micro Data 08/18/23 05:25 08/18/23 05:25 Labs: Laboratory Results - last 24 hr 08/16/23 05:14: Vitamin D 25-Hydroxy 15.4 08/18/23 05:25: WBC 3.9 L, RBC 2.59 L, Hgb 8.5 L, Hct 24.9 L, MCV 96.1 H, MCH 32.8 H, MCHC 34.1, RDW Std Deviation 47.6 H, RDW Coeff of Adiel 13.5, Plt Count 114 L, MPV 9.8, Immature Gran % (Auto) 0.500, Neut % (Auto) 77.8 H, Lymph % (Auto) 10.1 L, Tripp % (Auto) 9.3, Eos % (Auto) 1.8, Baso % (Auto) 0.5, Absolute Neuts (auto) 3.0, Absolute Lymphs (auto) 0.39 L, Nucleated RBC % 0, DifferentialComment COMMENT, Diff Path Review January, Sodium 132 L, Potassium 3.8, Chloride 105, Carbon Dioxide 22.0, Anion Gap 5, BUN 10, Creatinine 1.06, Estim Creat Clear Calc 74.61, Est GFR (MDRD) Af Amer 91, Est GFR (MDRD) Non-Af 75, BUN/Creatinine Ratio 9.4 L, Glucose 121 H, Calcium 7.9 L Radiography Diagnostic Testing: Radiology Impression Hip X-Ray 08/17/23 14:05 IMPRESSION: Successful total hip arthroplasty. Electronically Signed: Jhonatan Weiss MD at 15:08 EST , Shoulder X-Ray 08/17/23 14:05 IMPRESSION: Degenerative findings of the right shoulder. Electronically Signed: Jhonatan Weiss MD at 15:10 EST , Rhythm Strip Rhythm Strip: Sinus Rhythm Rate: 85 Ectopy: None Physical Exam Const alert, oriented x3, no apparent distress and well nourished HEENT normocephalic, head/scalp atraumatic and moist oral mucous membranes Eyes PERRL Neck no lymphadenopathy and supple Lymph Lymphatic: no lymphadenopathy noted and no lymphedema noted Resp normal respiratory effort, normal air movement, no retractions, no use of accessory muscles and clear to auscultation bilaterally Cardio regular rate, regular rhythm, S1 normal heart sound, S2 normal heart sound and no murmurs GI normal to inspection, nondistended, normoactive bowel sounds, soft to palpation,non-tender and non-distended Extremity normal capillary refill and no clubbing, cyanosis or edema Extremity Narrative: intact dressing over right hip General Extremity: no tenderness to palpation of joints or extremities Skin General Skin Exam: no breakdown Neuro CN's II-XII intact bilaterally, no focal motor deficits and no sensory deficits noted Sensorium / Orientation: awake and alert Speech: speech normal Motor Exam: general weakness Psych thought process normal, cooperative and affect normal Appearance: appropriate Assessment & Plan Assessment/Plan (1) Closed fracture of right hip: QUALIFIERS: Encounter type: initial encounter Qualified Code(s): S72.001A - Fracture of unspecified part of neck of right femur, initial encounter for closed fracture PLAN: Plan #RIght subcapital fracture due to mechanical fall * due to mechanical fall * right hip xray showed a right mildly displaced subcapital fracture * today is POD 1 for right hip fracture. * Orthopedics on board * PT/OT on board * PO tylenol, PO oxycodone and IV morphine prn for pain * fall precautions * * #Nicotine dependence: counseled to quit. Nicotine patch 21mg daily. DVT prophylaxis; on lovenox Disposition; depends on how he does with PT/OT. Charges/Coding Visit Charges Inpatient E&M: 62621 Subs Hosp L2 08/18/23 1545 <Electronically signed by Amaris Marks MD> Amaris Marks MD Cosigner Signature (if applicable): CC: ~ Signed [facility] Work Phone: 1(423) 292-239712-04-2023 Progress note Author Mle Tipton [facility] August 18, 2023 11:06am Note Date/Time August 18, 2023 1 0:43am [facility] Medical Records Department [address] [place], [place] [address]j[place] [address] Progress Note - Orthopedic 08/18/23 1033 MR#: [id number] Acct: [id number] Name: QUINCY CALDWELL Rep #:[id number] : 1960 63 From: Mel MATT PCP: PASTORA Luz tus:ADM IN Location: MS3 [id number] Subjective Subjective Insert postop subjective patient is s/p right total hip arthroplasty with Dr. Funk 08/17/2023 . Patient resting comfortably in bed. Rates pain 3/ 10 at rest. With movement 7/10. States taking Tylenol and oxycodone as needed and ice help to relieve pain. Patient has been up with therapy. Walking with the assit of a walker. Afebrile, no chest pain, shortness of breath, negative calf pain/ erythema, and no other signs of DVT. Patient does complain of right shoulder pain however this has been going on since before the fall. Shoulder x-rays do show degenerative changes osteoarthritis no acute fractures. He does have a history of a displaced clavicle fracture on the right. Today he has no increased pain or ecchymosis over the clavicle. There is a protrusion but this is his baseline. Objective Data Objective Data Vital Signs: Vital Signs Temp Pulse Resp BP Pulse Ox O2 Del Method 98.0 F 93 16 128/76 H 97 Room Air 08/18/23 06:51 08/18/23 06:51 08/18/23 06:51 08/18/23 06:51 08/18/23 06:51 08/18/23 06:51 Oxygen Delivery Method Room Air Weight: 79.787 kg Body Mass Index (BMI) 25.2 Intake & Output: Intake and Output for Last 24 Hours 08/16/23 08/17/23 08/18/23 23:59 23:59 23:59 Intake Total 888.33 / 888.33 1378.25 / 1678.25 950 / 950 Output Total 950 / 1175 975 / 975 500 / 500 Balance -61.67 / -286.67 403.25 / 703.25 450 / 450 Lab / Micro Data 08/18/23 05:25 08/18/23 05:25 Labs: Laboratory Results - last 24 hr 08/16/23 05:14: Vitamin D 25-Hydroxy 15.4 08/17/23 05:33: Differential Comment SCANNED, Diff Path Review January foll 08/18/23 05:25: WBC 3.9 L, RBC 2.59 L, Hgb 8.5 L, Hct 24.9 L, MCV 96.1 H, MCH 32.8 H, MCHC 34.1, RDW Std Deviation 47.6 H, RDW Coeff of Adiel 13.5, Plt Count 114 L, MPV 9.8, Immature Gran % (Auto) 0.500, Neut % (Auto) 77.8 H, Lymph % (Auto) 10.1 L, Tripp % (Auto) 9.3, Eos % (Auto) 1.8, Baso % (Auto) 0.5, Absolute Neuts (auto) 3.0, Absolute Lymphs (auto) 0.39 L, Nucleated RBC % 0, DifferentialComment COMMENT, Diff Path Review January, Sodium 132 L, Potassium 3.8, Chloride 105, Carbon Dioxide 22.0, Anion Gap 5, BUN 10, Creatinine 1.06, Estim Creat Clear Calc 74.61, Est GFR (MDRD) Af Amer 91, Est GFR (MDRD) Non-Af 75, BUN/Creatinine Ratio 9.4 L, Glucose 121 H, Calcium 7.9 L Radiography Diagnostic Testing: Radiology Impression Hip X-Ray 08/17/23 14:05 IMPRESSION: Successful total hip arthroplasty. Electronically Signed: Jhonatan Weiss MD at 15:08 EST , Shoulder X-Ray 08/17/23 14:05 IMPRESSION: Degenerative findings of the right shoulder. Electronically Signed: Jhonatan Weiss MD at 15:10 EST , Rhythm Strip Rhythm Strip: Sinus Rhythm Rate: 85 Ectopy: None Physical Exam Narrative Patient resting comfortably in bed No signs of acute distress Satting well on room air Limb is warm to touch, Sensation intact throughout entire lower extremity, including saphenous, sural, superficial and deep peroneal, and tibial distribution. DP/PT pulses bounding. Dorsiflexion plantarflexion strength 5/5 Dressing clear, dry, intact Calf nontender to palpation, no erythema, no edema. Negative Homans Patient has limited range of motion of right shoulder there is some crepitus. Forward flexion to about 120 Clavicle is has a deformity over mid clavicle which she states is baseline. No pain to palpation. No ecchymosis or edema. Assessment & Plan Assessment/Plan (1) Closed fracture of right hip: QUALIFIERS: Encounter type: initial encounter Qualified Code(s): S72.001A - Fracture of unspecified part of neck of right femur, initial encounter for closed fracture (2) S/P total hip arthroplasty: PLAN: Plan 1. Will continue PT today. weightbearing as tolerated 2. Patient cleared from an orthopedic standpoint for discharge when ready. Discharge per primary 3. Patient will follow up for post op appointment in 2 weeks in the office. This will need to be arranged. 4. Recommend scheduling outpatient physical therapy. Either later this week orearly next. 5. no leukocytosis 6. H/H 8.5 from 10.0/24.9 from 29.8: post operative anemia likely secondary to acute blood loss intraoperatively. Patient is asymptomatic at this time. No intraoperative complications. will continue to monitor. Intervention and/or transfusion per primary. Overall patient should follow-up with primary care after discharge for CBC within the next week. Sooner if becoming symptomatic.. 7. DVT prophylaxis : Aspirin 81 mg twice daily x4 weeks 8. Pain control: patient instructed to take tylenol 500mg 2 tablets TID. and oxycodone 1-2 tablets every 4-6 hours only as needed for pain control. 9. ok to remove post op dressing. post op day 5 10. Shoulder x-rays reviewed with Dr. Funk negative for acute fracture. 11. Orthopedics will sign off. 08/18/23 1106 <Electronically signed by Mel MATT> Cosigner Signature (if applicable): CC: ~ Signed [facility] Work Phone: 1(773) 243-327812-03-2023 Progress note Author [facility] August 17, 2023 1:47pm Note Date/Time August 17, 2023 1 0:42am [facility] Medical Records Department [address] [place] [address] Progress Note 08/17/23 1039 MR#: [id number] Acct: [id number] Name: QUINCY CALDWELL Rep #:[id number] : 1960 63 From: Amaris Marks MD PCP: Sofia Adame, PASTORA German tus:ADM IN Location: [place] [address]-1 Subjective Subjective Patient seen and examined. He had no active complaints. Review systems otherwise negative. He is due for surgery for hip fracture today. Objective Data Objective Data Vital Signs: Vital Signs Temp Pulse Resp BP Pulse Ox O2 Del Method 97.3 F L 97 16 161/90 H 97 Room Air 08/17/23 09:50 08/17/23 09:50 08/17/23 09:50 08/17/23 09:50 08/17/23 09:50 08/17/23 09:50 Oxygen Delivery Method Room Air Weight: 175 lb 14.4 oz Body Mass Index (BMI) 25.2 Intake & Output: Intake and Output for Last 24 Hours 08/15/23 08/16/23 08/17/23 23:59 23:59 23:59 Intake Total 888.33 / 888.33 1000 / 1000 Output Total 950 / 1175 975 / 975 Balance -61.67 / -286.67 Lab / Micro Data 08/17/23 05:33 08/17/23 05:33 Labs: Laboratory Results - last 24 hr 08/16/23 05:14: Sodium 130 L, Potassium 3.8, Chloride 99, Carbon Dioxide 23.0, Anion Gap 8, BUN 10, Creatinine 0.95, Estim Creat Clear Calc 83.25, Est GFR (MDRD) Af Amer 104, Est GFR (MDRD) Non-Af 86, BUN/Creatinine Ratio 10.5, [id number] H, Calcium 8.2 L, Total Bilirubin 0.50, AST 24, ALT 22, Alkaline [id number], Total Protein 6.3 L, Albumin 3.3, Globulin 3.0, Albumin/Globulin Ratio 1.1 08/17/23 05:14: Blood Type A POSITIVE, Antibody Screen NEGATIVE 08/17/23 05:33: WBC 3.5 L, RBC 3.15 L, Hgb 10.0 L, Hct 29.8 L, MCV 94.6 H D, MCH31.7, MCHC 33.6 D, RDW Std Deviation 47.3 H, RDW Coeff of Adiel 13.8, Plt Count 141 L, MPV 9.2, Immature Gran % (Auto) 0.300, Neut % (Auto) 80.3 H, Lymph % (Auto) 10.3 L, Tripp % (Auto) 7.7, Eos % (Auto) 1.1, Baso % (Auto) 0.3, Absolute Neuts (auto) 2.8, Absolute Lymphs (auto) 0.36 L, Nucleated RBC % 0, Sodium 133 L, Potassium 4.2, Chloride 106, Carbon Dioxide 22.0, Anion Gap 5, BUN 9, Creatinine 1.01, Estim Creat Clear Calc 78.30, Est GFR (MDRD) Af Amer 96, Est GFR (MDRD) Non-Af 80, BUN/Creatinine Ratio 8.9 L, Glucose 117 H, Calcium 8.3 L Rhythm Strip Rhythm Strip: Sinus Rhythm Rate: 85 Ectopy: None Physical Exam Const alert, oriented x3, no apparent distress and well nourished HEENT normocephalic, head/scalp atraumatic and moist oral mucous membranes Eyes PERRL Neck no lymphadenopathy and supple Lymph Lymphatic: no lymphadenopathy noted and no lymphedema noted Resp normal respiratory effort, normal air movement, no retractions, no use of accessory muscles and clear to auscultation bilaterally Cardio regular rate, regular rhythm, S1 normal heart sound, S2 normal heart sound and no murmurs GI normal to inspection, nondistended, normoactive bowel sounds, soft to palpation,non-tender and non-distended Extremity normal capillary refill and no clubbing, cyanosis or edema Extremity Narrative: RLE shortened, externally rotated General Extremity: no tenderness to palpation of joints or extremities Skin General Skin Exam: no breakdown Neuro CN's II-XII intact bilaterally, no focal motor deficits and no sensory deficits noted Sensorium / Orientation: awake and alert Speech: speech normal Motor Exam: general weakness Psych thought process normal, cooperative and affect normal Appearance: appropriate Assessment & Plan Assessment/Plan (1) Closed fracture of right hip: QUALIFIERS: Encounter type: initial encounter Qualified Code(s): S72.001A - Fracture of unspecified part of neck of right femur, initial encounter for closed fracture PLAN: Plan #RIght subcapital fracture due to mechanical fall * due to mechanical fall * right hip xray showed a right mildly displaced subcapital fracture * Orthopedics on board * PT/OT on board * PO tylenol, PO oxycodone and IV morphine prn for pain * fall precautions * for surgery today by orthopedics * #Nicotine dependence: counseled to quit. Nicotine patch 21mg daily. DVT prophylaxis; on lovenox Charges/Coding Visit Charges Inpatient E&M: 93294 Subs Hosp L2 08/17/23 1347 <Electronically signed by Amaris Marks MD> Amaris Marks MD Cosigner Signature (if applicable): CC: ~ Signed [facility] Work Phone: 1(469) 121-103012-03-2023 Procedure [facility] 08-17-2023 Consult note Author Litzy Terrazas [facility] August 17, 2023 10:09am Note Date/Time August 17, 2023 1 0:00am [facility] Medical Records Department [address] [place] [address] Consultation 08/17/23952 MR#: [id number] Acct: [id number] Name: QUINCY CALDWELL Rep #:[id number] : 1960 63 From: Litzy MATT PCP: PASTORA Luz tus:ADM IN Location: [place] [address] Assessment & Plan Assessment/Plan (1) Closed fracture of right hip: QUALIFIERS: Encounter type: initial encounter Qualified Code(s): S72.001A - Fracture of unspecified part of neck of right femur, initial encounter for closed fracture PLAN: Plan of care was discussed and reviewed at length with the patient including surgical and nonsurgical treatment options at this time he does wish to proceed with a right total hip arthroplasty secondary to patient's injury andage we feel that total hip replacement is more appropriate plan of care than hemiarthroplasty. Potential risk benefits and complications of this procedure werereviewed in detail including but not limited to infection nerve and blood vessel damage persistent pain numbness tingling paresthesias blood clot pulmonary embolism and the requirement for possible further surgery patient expressed full understanding has no further questions for the doctor does agree to proceed with the above-stated procedure and has signed the appropriate consent form Patient denies a history of DVT or pulmonary embolism. Will plan for aspirin 81mg twice daily for blood clot prevention x 1 month postoperative I also discussed and reviewed at length with the patient and his other underlying laboratory abnormalities including leukopenia anemia thrombocytopenia hyponatremia hypokalemia and elevated blood glucose. I advised the patient thathe will continue to be monitored by hospitalist group while admitted to the hospital but we would recommend a follow-up appointment with Dr. Sofia Gotti patient's primary care provider upon discharge from the hospital for further workup and or treatment. (2) Contusion of right shoulder: PLAN: Discussed and reviewed right shoulder pain/injury with the patient. I explained it sounds like a possible acute on chronic injury which may or may notbe work related. He most certainly had aggravation of pre-existing symptoms with the fall. We will plan to obtain x-rays of the right shoulder today to evaluate for fracture. I explained that based on his current clinical exam I dohave a low suspicion for fracture. Pending imaging findings we will plan for treatment accordingly. HPI Consult Data Date of Consult: 08/17/23 HPI Narrative Reason for Consultation: Right hip fracture work-related injury HPI Narrative: QUINCY CALDWELL, is a 63 M who presented to [facility] yesterday August 16, 2023. He was involved in a work-related injury. 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 He was standing on the ground. He slipped twisted and landed on his right side. He had significant increased pain in his right hip was unable to stand or bear weight. He was taken to [facility] emergency department by kimi. He states that he did not have any significant hip or groin pain prior to the injury. He did have buttock and low back pain. He alsoadmits to some pre-existing right shoulder pain prior to this injury he was previously under the care of Dr. Ernesto Adame with our office and had cervical neck surgery in April 2023. Dr. Ernesto Adame told him that his shoulder pain was associated with his neck. Since his fall he has had increased right shoulder pain. X-rays in the emergency department of the hip did reveal a femoral neck fracture on the right side. Orthopedics was consulted. Patient ambulated independently without an assistive device prior to the injury. He denies head injury or loss of consciousness. No numbness or tingling into the feet at this time. He does complain of numbness and tingling into bilateral upper extremities that is not new. [facility] Medical History no medical history Home Medications NK 08/16/23 [History Last Taken Unknown] Allergy/AdvReac Type Severity Reaction Status Date / Time No Known Allergies Allergy Verified 08/16/23 05:09 Surgical History (Updated 08/16/23 @ 06:[address] Tamir Allan MD) Hx of neck surgery Social History (Updated 08/16/23 @ 06:[address] Patrice Watkins DO) Smoking Status: Current some day smoker tobacco type: cigarettes alcohol intake: current alcohol intake frequency: a few times a week substance use type: does not use ROS ROS Narrative Review of systems were personally discussed at length with the patient pertinentpositives and negatives are documented with in the consultation below. Physical Exam Narrative Patient is alert and oriented x 3. Resting comfortably in the hospital bed in the supine position at rest. No acute distress at rest. The right lower extremity is shortened and externally rotated. Left hip is without pain or tenderness. Gentle rotation of right hip is with severe increased pain recreating patient's chief complaint. No tenderness at bilateral knees or ankles. No calf pain or swelling. Patient is able to actively plantar and dorsiflex bilateral ankles against resistance sensation intact light touch pedal pulses present +2 bilaterally neurovascularly intact. Inspection of right shoulder is without deformity. Right shoulder is with minimal tenderness to palpation at the level of the subacromial space. Patient has reasonable strength testing for active mobility against gravity with increased pain. Right elbow wrist and hand without deformity or tenderness. Full mobility of the elbow wrist and fingers on the right. Radial pulses present +2 bilaterally Lab / Micro Data 08/17/23 05:33 08/17/23 05:33 Labs: Laboratory Results - last 24 hr 08/16/23 05:14: Sodium 130 L, Potassium 3.8, Chloride 99, Carbon Dioxide 23.0, Anion Gap 8, BUN 10, Creatinine 0.95, Estim Creat Clear Calc 83.25, Est GFR (MDRD) Af Amer 104, Est GFR (MDRD) Non-Af 86, BUN/Creatinine Ratio 10.5, [id number] H, Calcium 8.2 L, Total Bilirubin 0.50, AST 24, ALT 22, Alkaline [id number], Total Protein 6.3 L, Albumin 3.3, Globulin 3.0, Albumin/Globulin Ratio 1.1 08/17/23 05:14: Blood Type A POSITIVE, Antibody Screen NEGATIVE 08/17/23 05:33: WBC 3.5 L, RBC 3.15 L, Hgb 10.0 L, Hct 29.8 L, MCV 94.6 H D, MCH31.7, MCHC 33.6 D, RDW Std Deviation 47.3 H, RDW Coeff of Adiel 13.8, Plt Count 141 L, MPV 9.2, Immature Gran % (Auto) 0.300, Neut % (Auto) 80.3 H, Lymph % (Auto) 10.3 L, Tripp % (Auto) 7.7, Eos % (Auto) 1.1, Baso % (Auto) 0.3, Absolute Neuts (auto) 2.8, Absolute Lymphs (auto) 0.36 L, Nucleated RBC % 0, Sodium 133 L, Potassium 4.2, Chloride 106, Carbon Dioxide 22.0, Anion Gap 5, BUN 9, Creatinine 1.01, Estim Creat Clear Calc 78.30, Est GFR (MDRD) Af Amer 96, Est GFR (MDRD) Non-Af 80, BUN/Creatinine Ratio 8.9 L, Glucose 117 H, Calcium 8.3 L Rhythm Strip Rhythm Strip: Sinus Rhythm Rate: 85 Ectopy: None Imagaing X-rays of right hip and pelvis were reviewed August 16, 2023 discussed and reviewed with the patient as well as Dr. Obie Funk consistent with degenerative changes of the lower lumbar spine with acute impacted femoral neck fracture of right hip 08/17/23 1009 <Electronically signed by Litzy MATT> Cosigner Signature (if applicable): CC: PASTORA Adame; Dr. Patrice Watkins DO; Dr. Obie Funk MD~ Signed [facility] Work Phone: 1(376) 825-273212-02-2023 Progress note Author Amaris Marks [facility] August 16, 2023 2:54pm Note Date/Time August 16, 2023 1 2:43pm [facility] Medical Records Department [address] [place] [address] Progress Note 08/16/23 1237 MR#: [id number] Acct: [id number] Name: QUINCY CALDWELL Rep #:[id number] : 1960 63 From: Amaris Marks MD PCP: PASTORA Luz tus:ADM IN Location: MS3 [id number] Subjective Subjective Patient seen and examined. He was admitted with a complaint of right hip pain after mechanical fall. He is being managed for right hip fracture due to mechanical fall. He says pain is well controlled. Review of systems is otherwisenegative. Objective Data Objective Data Vital Signs: Vital Signs Temp Pulse Resp BP Pulse Ox O2 Del Method 97.5 F L 77 16 128/82 H 100 Room Air 08/16/23 08:00 08/16/23 08:00 08/16/23 08:00 08/16/23 08:00 08/16/23 08:00 08/16/23 08:00 Oxygen Delivery Method Room Air Weight: 175 lb 14.4 oz Body Mass Index (BMI) 25.2 Lab / Micro Data 08/16/23 05:14 08/16/23 05:14 Labs: Laboratory Results - last 24 hr 08/16/23 05:14: WBC 4.4, RBC 3.08 L, Hgb 10.1 L, Hct 27.5 L, MCV 89.3, MCH 32.8 H, MCHC 36.7 H, RDW Std Deviation 42.5, RDW Coeff of Adiel 13.1, Plt Count 171, MPV 8.8, Immature Gran % (Auto) 0.500, Neut % (Auto) 54.0, Lymph % (Auto) 27.6, Tripp % (Auto) 13.6 H, Eos % (Auto) 3.4, Baso % (Auto) 0.9, Absolute Neuts (auto)2.4, Absolute Lymphs (auto) 1.20, Nucleated RBC % 0, Sodium 126 L, Potassium 3.4L, Chloride 92 L, Carbon Dioxide 25.0, Anion Gap 9, BUN 10, Creatinine 1.13, Estim Creat Clear Calc 69.99, Est GFR (MDRD) Af Amer 85, Est GFR (MDRD) Non-Af 70, BUN/Creatinine Ratio 8.8 L, Glucose 143 H, Calcium 8.7 Radiography Diagnostic Testing: Radiology Impression Chest X-Ray 08/16/23 05:45 IMPRESSION: No radiographic evidence of acute cardiopulmonary disease. Electronically Signed: Darnell Olsen MD at 6:38 EST Reading Location ID and State: [facility] / [place] Tel , Service support , Hip/Pelvis X-Ray 08/16/23 05:45 IMPRESSION: Mildly impacted right femoral neck fracture. Electronically Signed: Darnell Olsen MD at 6:40 EST Reading Location ID and State: [facility] / [place] Tel , Service support , Rhythm Strip Rhythm Strip: Sinus Rhythm Rate: 85 Ectopy: None Physical Exam Const alert, oriented x3, no apparent distress and well nourished HEENT normocephalic, head/scalp atraumatic and moist oral mucous membranes Neck no lymphadenopathy and supple Lymph Lymphatic: no lymphadenopathy noted and no lymphedema noted Resp normal respiratory effort, normal air movement and clear to auscultation bilaterally Cardio regular rate, regular rhythm, S1 normal heart sound, S2 normal heart sound and no murmurs GI normal to inspection, nondistended, normoactive bowel sounds, soft to palpation and non-tender Extremity normal capillary refill and no clubbing, cyanosis or edema Extremity Narrative: RLE shortened, externally rotated Skin General Skin Exam: no breakdown Neuro CN's II-XII intact bilaterally and no sensory deficits noted Motor Exam: general weakness Psych thought process normal and cooperative Appearance: appropriate Assessment & Plan Assessment/Plan (1) Closed fracture of right hip: QUALIFIERS: Encounter type: initial encounter Qualified Code(s): S72.001A - Fracture of unspecified part of neck of right femur, initial encounter for closed fracture PLAN: Plan #RIght subcapital fracture due to mechanical fall * due to mechanical fall * right hip xray showed a right mildly displaced subcapital fracture * Orthopedics on board * PT/OT on board * PO tylenol, PO oxycodone and IV morphine prn for pain * fall precautions * for surgery tomorrow by orthopedics * #Nicotine dependence: counseled to quit. Nicotine patch 21mg daily. DVT prophylaxis; start lovenox Charges/Coding Visit Charges Inpatient E&M: 10210 Subs Hosp L2 08/16/23 1454 <Electronically signed by Amaris Marks MD> Amaris Marks MD Cosigner Signature (if applicable): CC: ~ Signed [facility] Work Phone: [phone] 857-986312-02-2023 History and physical note Author Patrice Watkins [facility] August 16, 2023 6:38am Note Date/Time August 16, 2023 6 :38am [facility] Medical Records Department [address] [place] [address] H&P Exam - Hospitalist 08/16/23630 MR#: [id number] Acct: [id number] Name: QUINCY CALDWELL Rep #:[id number] : 1960 63 From: Patrice Watkins DO PCP: PASTORA Luz tus:ADM IN Location: [facility] [place] RU357-1 HPI - General General Date of Admission: 08/16/23 Date of Service: 08/16/23 Chief Complaint: Right hip pain HPI Narrative QUINCY CALDWELL, is a 63 M who presents with right hip pain. 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 He is unsure about how he actually landed but it was suddenly and he felt something go at that time. Try to get up but he was unableto due to severe pain in his right hip. He was able to get up to standing to feel the rest himself on something but was not able to be able to put any weighton his right leg. EMS was called and patient was brought to the hospital. Patient was found to have a right hip fracture. Dr. Funk, orthopedics, was contacted and told emergency room physician that the plan would be to take the patient to surgery on the third. With this fall, patient denies hitting his head or any loss of consciousness. He is otherwise a very healthy does not get chest pain or shortness of breath with activities. PFSH Medical History no medical history no medical history Home Medications NK 08/16/23 [History Last Taken Unknown] Allergy/AdvReac Type Severity Reaction Status Date / Time No Known Allergies Allergy Verified 08/16/23 05:09 Surgical History (Updated 08/16/23 @ 06:[address] Tamir Allan MD) Hx of neck surgery Social History (Updated 08/16/23 @ 06:[address] Patrice Watkins DO) Smoking Status: Current some day smoker alcohol intake: current alcohol intake frequency: a few times a week substance use type: does not use ROS ROS Narrative All review of systems were negative except as mentioned above in the history of present illness and the other review of systems. Vital Signs Vital Signs Vital Signs: 08/16/23 05:00 08/16/23 05:08 08/16/23 05:58 Temperature 36.4 C L 36.4 C L Temperature Source Temporal Temporal Pulse Rate 91 94 81 Respiratory Rate 16 16 18 Blood Pressure 155/90 H 155/90 H 128/81 H Blood Pressure Mean 111 111 96 Pulse Ox 100 100 100 Oxygen Delivery Method Room Air Room Air Weight Weight: 81.6 kg Body Mass Index (BMI) 25.8 Physical Exam Const alert and no apparent distress HEENT normocephalic and head/scalp atraumatic Neck no lymphadenopathy Resp normal respiratory effort, no retractions, no use of accessory muscles and clearto auscultation bilaterally Cardio regular rate, regular rhythm and S1 normal heart sound GI normal to inspection, nondistended, normoactive bowel sounds, soft to palpation,non-tender and non-distended Extremity Extremity Narrative: Short right lower extremity compared to the left. Neuro Sensorium / Orientation: awake and alert Speech: speech normal Psych affect normal Results Lab / Micro Data Attestation: I reviewed the patient's lab results. 08/16/23 05:14 08/16/23 05:14 Labs: Laboratory Results - last 24 hr 08/16/23 05:14: WBC 4.4, RBC 3.08 L, Hgb 10.1 L, Hct 27.5 L, MCV 89.3, MCH 32.8 H, MCHC 36.7 H, RDW Std Deviation 42.5, RDW Coeff of Adiel 13.1, Plt Count 171, MPV 8.8, Immature Gran % (Auto) 0.500, Neut % (Auto) 54.0, Lymph % (Auto) 27.6, Tripp % (Auto) 13.6 H, Eos % (Auto) 3.4, Baso % (Auto) 0.9, Absolute Neuts (auto)2.4, Absolute Lymphs (auto) 1.20, Nucleated RBC % 0, Sodium 126 L, Potassium 3.4L, Chloride 92 L, Carbon Dioxide 25.0, Anion Gap 9, BUN 10, Creatinine 1.13, Estim Creat Clear Calc 69.99, Est GFR (MDRD) Af Amer 85, Est GFR (MDRD) Non-Af 70, BUN/Creatinine Ratio 8.8 L, Glucose 143 H, Calcium 8.7 Rhythm Strip Rhythm Strip: Sinus Rhythm Rate: 85 Ectopy: None Imagaing Hip x-ray reviewed and shows an impacted right hip fracture. Official read pending. Chest x-ray personally reviewed and shows no infiltrate nor pulmonary vascular congestion. Is unremarkable. Official read pending. Assessment & Plan Assessment/Plan (1) Closed fracture of right hip: QUALIFIERS: Encounter type: initial encounter Qualified Code(s): S72.001A - Fracture of unspecified part of neck of right femur, initial encounter for closed fracture PLAN: Due to fall while patient was at work and stumbled backwards. Patient be on bedrest. Check a 25-hydroxy vitamin D level. Orthopedics will be on consultwith tentative plans for the patient to undergo surgery on the third. Patient is medically cleared and optimized to proceed with surgery (NSQIP calculator that patient is overall lower average surgical risk for all outcomes). No additional workup necessary at this time. (2) Hypokalemia: PLAN: Replace. Monitor PLAN: Plan VTE prophylaxis with SCDs for now. Patient required chemical prophylaxis postsurgery. 08/16/23 0638 <Electronically signed by Patrice Watkins DO> Cosigner Signature (if applicable): CC: PASTORA Adame; Dr. Patrice Watkins DO~ Signed [facility] Work Phone: [phone]) 958-298112-02-2023 Discharge summary Author Tamir Allan 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 He did not hit his head or injure anything else including his back, since he was unable to stand due to the pain and suspected fracture, he was brought here by EMS, he has not received any pain medication yet. PFSH PFSH Medical History no medical history no medical history Home Medications NK 08/16/23 [History Last Taken Unknown] Allergy/AdvReac Type Severity Reaction Status Date / Time No Known Allergies Allergy Verified 08/16/23 05:09 Surgical History (Updated 08/16/23 @ 06:[address] Tamir Allan MD) Hx of neck surgery Social History Smoking Status: Current every day smoker tobacco type: cigarettes ROS ROS ED Constitutional Constitutional ED: Denies chills or fever(s) Eyes Eyes: Denies change in vision or diplopia ENT ENT ED: Denies ear pain, epistaxis, facial pain or rhinorrhea Cardiovascular Cardiovascular: Denies chest pain or palpitations Respiratory/Chest Respiratory/Chest: Denies cough or dyspnea Gastrointestinal Gastrointestinal: Denies abdominal pain, diarrhea, melena, nausea or vomiting Genitourinary Genitourinary ED: Denies dysuria or hematuria Musculoskeletal Musculoskeletal: Reports extremity pain; Denies back pain or neck pain Integumentary Denies abscess, Abrasions, laceration or rash Neurologic Neurologic: Denies confusion, headache(s), paresthesias or weakness EXAM Physical Exam Const Vital Signs: 08/16/23 05:00 08/16/23 05:08 08/16/23 05:58 Temperature 97.6 F L 97.6 F L Temperature Source Temporal Temporal Pulse Rate 91 94 81 Respiratory Rate 16 16 18 Blood Pressure 155/90 H 155/90 H 128/81 H Blood Pressure Mean 111 111 96 Pulse Ox 100 100 100 Oxygen Delivery Method Room Air Room Air Positive well nourished and well developed General Appearance ED: well developed and NAD HEENT Reports nasal mucous membranes and turbinates normal atraumatic Face and Sinus: Negative for facial tenderness Eyes PERRL and EOMs intact bilaterally Visual Acuity: other Other Details: no entrapment or pain with extraocular movements Neck full ROM and supple General: Negative for tenderness Chest Wall inspection of chest normal and palpation of chest normal Chest: symmetrical chest wall rise; Negative for crepitus or tenderness Resp normal respiratory effort and clear to auscultation bilaterally Percussion: other equal BS bilat Cardio no murmurs Rate: regular rate Rhythm: regular rhythm GI normal to inspection, nondistended, normoactive bowel sounds, soft to palpation and non-tender Back/Spine normal ROM Cervical Spine: Negative for cervical spine tenderness Thoracic Spine / Upper Back: Negative for thoracic spinal tenderness Lumbar Spine / Lower Back: Negative for lumbar spinal tenderness Extremity normal to inspection Extremity Narrative: Left hip tenderness, shortening, painful logroll. ASIS nontender, pelvis stableto AP compression. Limited range of motion of the knee due to pain in the hip but no bony tenderness or signs of trauma at the near the ankle or elsewhere in the right lower extremity. All compartments soft and nondistended. All 3 otherextremities full range of motion without any pain or difficulty. General Extremety ED: Yes tenderness Neuro oriented x3, CN's II-XII intact bilaterally, moves all extremities, no focal motor deficits and no sensory deficits noted Jerrica Coma Scale: document GCS findings Spontaneous Obeys Commands Oriented 15 Sensorium / Orientation: awake and alert Psych mental status grossly normal and thought process normal Skin no wounds Lesions: no lesions Rashes: no rashes MDM MDM MDM Narrative Medical decision making narrative: Three-view x-ray series of the right hip and pelvis on my interpretation shows amildly displaced subcapital hip fracture. No other pelvic bone fractures noted. Patient is neurovascular intact distally, clinically better and stable after morphine and prophylactic Zofran, preoperative EKG and chest x-ray obtained and on my interpretation both normal, 1 view chest. Labs unremarkable. Discussed with Dr. Funk who was on-call for [facility], with whom the patient isestablished, likely to take him to the OR tomorrow morning and requesting hospitalist admission. Lab Data Attestation: I reviewed the patient's lab results. Labs: Laboratory Results - last 24 hr 08/16/23 05:14 WBC 4.4 RBC 3.08 L Hgb 10.1 L Hct 27.5 L MCV 89.3 MCH 32.8 H MCHC 36.7 H RDW Std Deviation 42.5 RDW Coeff of Adiel 13.1 Plt Count 171 MPV 8.8 Immature Gran % (Auto) 0.500 Neut % (Auto) 54.0 Lymph % (Auto) 27.6 Tripp % (Auto) 13.6 H Eos % (Auto) 3.4 Baso % (Auto) 0.9 Absolute Neuts (auto) 2.4 Absolute Lymphs (auto) 1.20 Nucleated RBC % 0 Sodium 126 L Potassium 3.4 L Chloride 92 L Carbon Dioxide 25.0 Anion Gap 9 BUN 10 Creatinine 1.13 Estim Creat Clear Calc 69.99 Est GFR (MDRD) Af Amer 85 Est GFR (MDRD) Non-Af 70 BUN/Creatinine Ratio 8.8 L Glucose 143 H Calcium 8.7 Rhythm Strip Rhythm Strip: Sinus Rhythm Rate: 85 Ectopy: None EKG Initial EKG: Attestation: I personally reviewed and interpreted this EKG as follows: Interpretation: Sinus Rhythm and No Acute Injury Pattern Management Discussion w/another healthcare provider: Hospitalist and Director Records Management ([facility]) Discharge Plan Dx/Rx/DC Orders Clinical Impression: Fall from slipping on wet surface, Closed fracture of right hip Disposition Disposition: Acute Care Hospital [facility] What to do if you have Problems For any increased pain, shortness of breath, bleeding, nausea or vomiting, chestpain, or any unexpected problems, contact your Primary Care Provider. Call [facility] ([phone]) or report to the closest Emergency Room. Call 911 if necessary. 08/16/23 0611 <Electronically signed by Tamir Allan MD> Cosigner Signature (if applicable): CC: PASTORA Adame ~ Signed [facility] Work Phone: [phone] Hospital Discharge instructions Patient Education 05/13/2023 10:45:37 Smoking Tobacco Information, Adult Smoking Tobacco Information, Adult Smoking tobacco can be harmful to your health. Tobacco contains a poisonous (toxic), colorless chemical called nicotine. Nicotine is addictive. It changes the brain and can make it hard to stop smoking. Tobacco also has other toxic chemicals that can hurt your body and raise your risk of many cancers. How can smoking tobacco affect me? Smoking tobacco puts you at risk for: Cancer. Smoking is most commonly associated with lung cancer, but can also lead to cancer in other parts of the body. Chronic obstructive pulmonary disease (COPD). This is a long-term lung condition that makes it hardto breathe. It also gets worse over time. High blood pressure (hypertension), heart disease, stroke, or heart attack. Lung infections, such as pneumonia. Cataracts. This is when the lenses in the eyes become clouded. Digestive problems. This may include peptic ulcers, heartburn, and gastroesophageal reflux disease (GERD). Oral health problems, such as gum disease and tooth loss. Loss of taste and smell. Smoking can affect your appearance by causing: Wrinkles. Yellow or stained teeth, fingers, and fingernails. Smoking tobacco can also affect your social life, because: It may be challenging to find places to smoke when away from home. Many workplaces, restaurants, hotels, and public places are tobacco-free. Smoking is expensive. This is due to the cost of tobacco and the long-term costs of treating healthproblems from smoking. Secondhand smoke may affect those around you. Secondhand smoke can cause lung cancer, breathing problems, and heart disease. Children of smokers have a higher risk for: ?Sudden infant syndrome (SIDS). ?Ear infections. ?Lung infections. If you currently smoke tobacco, quitting now can help you: Lead a longer and healthier life. Look, smell, breathe, and feel better over time. Save money. Protect others from the harms of secondhand smoke. What actions can I take to prevent health problems? Quit smoking Do not start smoking. Quit if you already do. Make a plan to quit smoking and commit to it. Look for programs to help you and ask your health care provider for recommendations and ideas. Set a date and write down all the reasons you want to quit. Let your friends and family know you are quitting so they can help and support you. Consider finding friends who also want to quit. It can be easier to quit with someone else, so that you can supporteach other. Talk with your health care provider about using nicotine replacement medicines to help you quit, such as gum, lozenges, patches, sprays, or pills. Do not replace cigarette smoking with electronic cigarettes, which are commonly called e-cigarettes. The safety of e-cigarettes is not known, and some may contain harmful chemicals. If you try to quit but return to smoking, stay positive. It is common to slip up when you first quit, so take it one day at a time. Be prepared for cravings. When you feel the urge to smoke, chew gum or suck on hard candy. Lifestyle Stay busy and take care of your body. Drink enough fluid to keep your urine pale yellow. Get plenty of exercise and eat a healthy diet. This can help prevent weight gain after quitting. Monitor your eating habits. Quitting smoking can cause you to have a larger appetite than when you smoke. Find ways to relax. Go out with friends or family to a movie or a restaurant where people do not smoke. Ask your health care provider about having regular tests (screenings) to check for cancer. This mayinclude blood tests, imaging tests, and other tests. Find ways to manage your stress, such as meditation, yoga, or exercise. Where to find support To get support to quit smoking, consider: Asking your health care provider for more information and resources. Taking classes to learn more about quitting smoking. Looking for local organizations that offer resources about quitting smoking. Joining a support group for people who want to quit smoking in your local community. Calling the smokefree.gov counselor helpline: 0-555-Igxd-Now ( ) Where to find more information You may find more information about quitting smoking from: HelpGuide.org: www.helpguide.org Smokefree.gov: smokefree.gov [place] [employer] Association: www.lung.org Contact a health care provider if you: Have problems breathing. Notice that your lips, nose, or fingers turn blue. Have chest pain. Are coughing up blood. Feel faint or you pass out. Have other health changes that cause you to worry. Summary Smoking tobacco can negatively affect your health, the health of those around you, your finances, and your social life. Do not start smoking. Quit if you already do. If you need help quitting, ask your health care provider. Think about joining a support group for people who want to quit smoking in your local community. There are many effective programs that will help you to quit this behavior. This information is not intended to replace advice given to you by your health care provider. Make sure you discuss any questions you have with your health care provider. Document Released: 09/16/2017 Document Revised: 10/21/2018 Document Reviewed: 09/16/2017 [employer] Patient Education 2020 [employer]. Follow Up Care 05/09/2023 08:43:02 With:ERNESTO ADAME DO, Orthopedic Address: [address] [place] [address], [address] [facility] [place] [address]- [phone] When:06/02/2023 09:00:00 Comments:This is your post-op appointment. Follow-up as scheduled. [facility] 08-29-2023 Note Discharge Instructions Thank you for allowing [facility] to assist you with your healthcare needs. The following is importantdischarge information regarding your hospital visit. Your Care Team Ernesto Adame DO Your Diagnosis Cervical spondylosis GERD (gastroesophageal reflux disease) Hypertension Tobacco use (smoker) What to do next Instructions From Your Doctor Activity: Do not drive, smoke, operate machinery, return to work, or engage in activities that require you rigoberto alert when taking narcotics, pain relievers or muscle relaxants No reaching overhead Do not turn your head from side to side, turn your upper body Wear both SAVANNAH hose continuously for 6 weeks Remove during shower time and replaced with a clean pair Wash with soap and water, then hang dry for next use No heavy lifting, pulling, or pushing more than 10 pounds for 3 months Must wear your cervical collar at all times Call Dr. Adame office if: You have any difficulty breathing, swallowing, or swelling of your throat You have a sore throat that does not go away with ice chips, lozenges, pain meds etc. You fall at home, call immediately You experience numbness and/or tingling in your arms or legs that is changed or increased after discharge You develop chills, and/or fever greater than 100 degrees You have drainage from your incision, especially bloody or thick yellow You have increased redness or swelling around the incision You have severe or continued headaches, especially if no headaches were present in the hospital You start having increased pain that is not relieved by your medicine You run out of pain medication Care for your incision: Never put anything on your incision, no creams lotions or antibiotic ointment No hot tubs, swimming, or soaking in water for 6 weeks, or until your incision is healed To shower, cover your incision with a 4 x 4, Tegaderm dressing, and you must wear your cervical collar Change the dressing to your neck daily using a dry 4 x 4 and tape Wear your bone growth stimulator if given 1 daily as instructed If you need to shave using electric razor, do not tilt your head back or shave over the incision General reminders: Do not take any medications, herbal, prescription, or [id number] unless prescribed for the next 12 weeks Remember to take your pain medication and/or muscle relaxants as ordered to keep your pain under control No NSAIDs for 3 months, will interfere with the fusion. Swelling around the nerves can cause continued numbness and tingling for days or weeks after surgery Follow Up Appointments Follow Up with ERNESTO ADAME DO, Orthopedic When 06/02/2023 09:00 AM EDT Why: This is your post-op appointment. Follow-up as scheduled. Where: [address] [place] [address], [address] [facility] [place] [address]- [phone] Allergies NKA Medications Please ask your primary doctor or pharmacist before taking any other medication not listed, including over the counter drugs, herbal medications, vitamins and or supplements as they may interact withyour home medications. What How Much When Why Instructions Last Dose Changed acetaminophen-hydrocodone ([place] 325- 5 mg oral tablet) 1 tab(s) by mouth Every 6 hours as needed for for pain Cervical spondylosis Duration: 7 Days Pickup at [facility] none given today Changed acetaminophen-hydrocodone ([place] 325- 5 mg oral tablet) 1 tab(s) by mouth Every 4 hours as needed for Pain, scale 4-6 Pharmacy Information [facility]: [address] [place], [place] [phone] What How Much When Comments Stop Taking ibuprofen 200 Milligram by mouth Every 6 hours as needed for as needed for pain Stop Taking ibuprofen 800 Milligram by mouth Every 8 hours Please take this list to your next doctor s visit. Bring all medications you take, including over the counter medications, herbals and other supplements with you to your doctor s visit. Patients and families are reminded to discard old lists and to update any records with all medication providers or retail pharmacies. Education Materials Smoking Tobacco Information, Adult Smoking tobacco can be harmful to your health. Tobacco contains a poisonous (toxic), colorless chemical called nicotine. Nicotine is addictive. It changes the brain and can make it hard to stop smoking. Tobacco also has other toxic chemicals that can hurt your body and raise your risk of many cancers. How can smoking tobacco affect me? Smoking tobacco puts you at risk for: Cancer. Smoking is most commonly associated with lung cancer, but can also lead to cancer in other parts of the body. Chronic obstructive pulmonary disease (COPD). This is a long-term lung condition that makes it hardto breathe. It also gets worse over time. High blood pressure (hypertension), heart disease, stroke, or heart attack. Lung infections, such as pneumonia. Cataracts. This is when the lenses in the eyes become clouded. Digestive problems. This may include peptic ulcers, heartburn, and gastroesophageal reflux disease (GERD). Oral health problems, such as gum disease and tooth loss. Loss of taste and smell. Smoking can affect your appearance by causing: Wrinkles. Yellow or stained teeth, fingers, and fingernails. Smoking tobacco can also affect your social life, because: It may be challenging to find places to smoke when away from home. Many workplaces, restaurants, hotels, and public places are tobacco-free. Smoking is expensive. This is due to the cost of tobacco and the long-term costs of treating healthproblems from smoking. Secondhand smoke may affect those around you. Secondhand smoke can cause lung cancer, breathing problems, and heart disease. Children of smokers have a higher risk for: ? Sudden infant syndrome (SIDS). ? Ear infections. ? Lung infections. If you currently smoke tobacco, quitting now can help you: Lead a longer and healthier life. Look, smell, breathe, and feel better over time. Save money. Protect others from the harms of secondhand smoke. What actions can I take to prevent health problems? Quit smoking Do not start smoking. Quit if you already do. Make a plan to quit smoking and commit to it. Look for programs to help you and ask your health care provider for recommendations and ideas. Set a date and write down all the reasons you want to quit. Let your friends and family know you are quitting so they can help and support you. Consider finding friends who also want to quit. It can be easier to quit with someone else, so that you can supporteach other. Talk with your health care provider about using nicotine replacement medicines to help you quit, such as gum, lozenges, patches, sprays, or pills. Do not replace cigarette smoking with electronic cigarettes, which are commonly called e-cigarettes. The safety of e-cigarettes is not known, and some may contain harmful chemicals. If you try to quit but return to smoking, stay positive. It is common to slip up when you first quit, so take it one day at a time. Be prepared for cravings. When you feel the urge to smoke, chew gum or suck on hard candy. Lifestyle Stay busy and take care of your body. Drink enough fluid to keep your urine pale yellow. Get plenty of exercise and eat a healthy diet. This can help prevent weight gain after quitting. Monitor your eating habits. Quitting smoking can cause you to have a larger appetite than when you smoke. Find ways to relax. Go out with friends or family to a movie or a restaurant where people do not smoke. Ask your health care provider about having regular tests (screenings) to check for cancer. This mayinclude blood tests, imaging tests, and other tests. Find ways to manage your stress, such as meditation, yoga, or exercise. Where to find support To get support to quit smoking, consider: Asking your health care provider for more information and resources. Taking classes to learn more about quitting smoking. Looking for local organizations that offer resources about quitting smoking. Joining a support group for people who want to quit smoking in your local community. Calling the smokefree.gov counselor helpline: Now ( ) Where to find more information You may find more information about quitting smoking from: HelpGuide.org: www.helpguide.org Smokefree.gov: smokefree.gov [place] [employer]: www.lung.org Contact a health care provider if you: Have problems breathing. Notice that your lips, nose, or fingers turn blue. Have chest pain. Are coughing up blood. Feel faint or you pass out. Have other health changes that cause you to worry. Summary Smoking tobacco can negatively affect your health, the health of those around you, your finances, and your social life. Do not start smoking. Quit if you already do. If you need help quitting, ask your health care provider. Think about joining a support group for people who want to quit smoking in your local community. There are many effective programs that will help you to quit this behavior. This information is not intended to replace advice given to you by your health care provider. Make sure you discuss any questions you have with your health care provider. Document Released: 09/16/2017 Document Revised: 10/21/2018 Document Reviewed: 09/16/2017 [employer] Patient Education 2020 [employer] Additional Information VACCINATE! IT SAVES LIVES! Members of the community who have not yet received the COVID-19 vaccine and would like to receive it can visit one of [facility] vaccine clinics. There are many vaccine clinic locations within the [facility]. For locations and available times, please visit https://gettheshot.coronavirus.[place].gov/. It is important to note that some COVID mobile vaccine clinics are held outdoors and may be canceled in rainy or stormy conditions. To learn more about pediatric vaccinations (ages 5-11), we invite you to visit the [facility] webpage. [email or web address].[email or web address]/[email or web address] learn more about the COVID-19 vaccine, we invite you to visit the CDC website for a list of frequently asked questions.https://www.cdc.gov/coronavirus/2019-ncov/vaccines/faq.html [facility] Patient Portal Access Instructions: Stay connected with your healthcare team and access your personal medical information anytime with the [facility] Patient Portal. Please follow the directions below to create your [facility] account: 1.Access the email account you provided upon registration to the hospital/physician office.2.Look for an invitation email from [facility].3.Open the email and access the invitation link: AcceptInvitation to [facility].4.Fill in the required oswald to create your account. To access your account, visit [email or web address]. Click the blue button labeled Access Patient Portal and then log in with the username and password that you created in the steps above. You will be able to view your test results, lab results, a summary of your visits, upcoming appointments and more. There is also a convenient messaging option where you can send secure messages to your p rovider. In addition, you will have the ability to download any documents or summaries to your computer and/or send the information securely to a physician. Remember that your healthcare information is confidential, so carefully consider who you will allowto register on the [facility] Patient Portal for access to your information. You can also access the [facility] Patient Portal on the [facility] kush. Simply click on Patient Portal and then log into your account. If you would like to receive a full copy of your medical records, please contact the [facility] Medical Records Department by calling [phone], Friday through Friday between 8 a.m. and 4:30 p.m. HOW TO SAFELY DISPOSE OF PRESCRIPTION MEDICATIONS Please use one of the following methods to safely dispose of your unused medications. 1.Use a drug disposal kit: the drug disposal pouch allows you to safely discard your old and unuseddrugs. Ask your nurse to give you one when you are discharged.2.Visit a local take-back location: Many local pharmacies and police departments have programs that collect old and unwanted prescriptiondrugs. Call your local pharmacy or go to [email or web address] to find one close to you.3.Make use of household items: Use cat litter or old coffee grounds to dispose medications if other options arenot available. Mix your drugs with these household products, seal them in an airtight container andthrow it into the garbage. Call [facility]: [phone] to be sure your drugs can be disposed of in this way. Some medicines may require a different approach.4.Never flush your medications down the toilet. IF YOU HAVE BEEN PRESCRIBED AN OPIOID FOR PAIN If you have been prescribed an opioid (such as hydrocodone, oxycodone or morphine), it is critical to understand the possible side effects and risks of opioid pain medications. Even when taken as directed, opioids can have several side effects including: Tolerance, meaning you might need to take more of a medication for the same pain relief. Nausea, vomiting and/or constipation. Sleepiness, dizziness, dry mouth, confusion, depression or itching. Physical dependence, meaning you have withdrawal symptoms when a medication is stopped, can develop within a few days. KNOW YOUR RESPONSIBILITIES It is important to know exactly how much and how often to take the opioid pain medications you are prescribed. Never take opioids in higher amounts or more often than prescribed. Do not combine opioids with alcohol or other drugs that cause drowsiness, such as benzodiazepines, also known as benzos, including diazepam and alprazolam, muscle relaxants or sleep aids. Never sell or share prescription opioids. This is illegal. Store opioids in a secure place and out of reach of others (including children, family, friends and visitors). The last page of this document has been signed and retained as a CHART COPY. Signatures Patient Education Materials Smoking Tobacco Information, Adult Medication Leaflets My discharge plan and instructions have been reviewed and explained to me and IIQRA RONALD L understand my current condition and have read and understand these discharge instructions. I have received a written copy of the plan/instructions. If I have questions, I am aware that I should contact my doctor. Patient/Timber Killer Signature: Date/Time: Relationship to Patient: Witness Name/Signature: Date/Time: [facility]08-29-2023 Note Date of Service 05/13/2023 Chief Complaint Neck pain Subjective Patient seen and evaluated while resting in bed. He states that he is doing well this morning. He can already tell a difference in the numbness and tingling in his arms from before surgery. He stateshe has been up walking back and forth to the bathroom and windows without any difficulty. He does not feel unsteady as he did before surgery. He adds that he feels he will do fine at home. Patient adv ised that therapy will be up to see him after breakfast to assess him. If he does well with them, he should be fine going home. His sodium was a little low on morning labs, 131, but it does look likehe has been low in the past. His labs show sodium anywhere from 129-133. He denies any significant pain this morning. He also denies any fever, chills, cough, shortness of breath, chest pain, abdominal pain, nausea, or dysuria. Patient advised his blood pressure has been a little elevated since he came up to the floor. Patient states it is elevated because he is anxious to get home. He states he is not used to sitting around and doing nothing. Patient encouraged to follow-up with his PCP in thenext week or two for a blood pressure recheck. From hospitalist perspective, patient is medically optimized for discharge home. Will defer to primary team to make final determination on discharge readiness. Objective Vitals and Measurements T: 36.9 C (Oral) TMIN: 35.7 C (Temporal Artery) TMAX: 36.9 C (Oral) HR: 77(Monitored) RR: 18 BP: 145/94 SpO2: 99% HT: 175 cm WT: 76 kg BMI: 24.82 Intake and Output 7AM Yesterday to 7AM Today Intake and Output (Last 24 hours) Intake Oral Intake 600.00 Administration Information 738.54 Output Urine Voided 4350.00 Intra-Op EBL 15.00 Total Summary Total Intake 1338.54 Total Output 4365.00 Fluid Balance -3026.46 Physical Exam General: No acute distress. Patient is alert and appropriate. Skin: No rash. Skin is warm, dry and intact. HEENT: Head is normocephalic, atraumatic. Pupils are equal, round and reactive. Neck: Surgical dressing to anterior neck is dry and intact. C-collar in place. Lungs: Bilaterally clear but diminished without crepitation or wheeze. Unlabored. Heart: Heart is regular rhythm, S1, S2. No murmurs, gallops or rubs. Abdomen: Abdomen is soft, nontender. Bowels sounds present in all quadrants. Extremities: No clubbing, cyanosis, or edema. Peripheral pulses palpable. No calf tenderness. Neurological: Patient is awake and alert to person, place and time. Following simple commands, moving all extremities. Weight Dosing Weight: 76 kg (05/12/23) Dosing Weight: 76 kg (05/12/23) Medications Medications (19) Active Scheduled: (8) bisacodyl 5 mg EC tablet 10 mg 2 tab(s), Oral, Once ceFAZolin 2 g, IV Piggyback, q8hr docusate sodium 100 mg Capsule 100 mg 1 cap(s), Oral, BID docusate-senna (Senokot S) 50 mg-8.6 mg Tablet 2 tab(s), Oral, BID famotidine 20 mg tablet 20 mg 1 tab(s), Oral, qDay magnesium hydroxide 8% Suspension 30 mL UD 30 mL, Oral, Daily Nicoderm patch REMOVAL 1 EA, Miscellaneous, q24h ondansetron 2 mg/ 1 mL 2 mL INJ 4 mg 2 mL, IV Push, q8hr Continuous: (1) NS (0.9% nacl) 1000 mL 1,000 mL, Intravenous, 20 mL/hr PRN: (10) acetaminophen 325 mg Tablet 650 mg 2 tab(s), Oral, q4h acetaminophen-HYDROcodone 325-5 mg tablet 1 tab(s), Oral, q4h diphenhydramine 25 mg tablet 25 mg 1 tab(s), Oral, q6h diphenhyDRAMINE 50 mg/mL (1 mL) INJ 25 mg 0.5 mL, IV Push, q6h hydralazine 20 mg/mL (1mL) vial 10 mg 0.5 mL, IV Push, q6h morphine 4 mg/mL 1mL INJ 4 mg 1 mL, IV Push, q4h nicotine 14 mg/24 hr ER patch 14 mg 1 patch(es), Transdermal, q24h ondansetron 2 mg/ 1 mL 2 mL INJ 4 mg 2 mL, IV Push, q8h scopolamine 1.5 mg (1 mg / 72 hours patch) 1 patch(es), Transdermal, q72h sodium biphosphate-sodium phosphate 19 gm-7 gm Enema 133 mL, Rectal, qDay Lab Results 05/13 05:12 WBC: 8.3 Hgb: 10.8 L Hct: 30.4 L Platelet: 144 Neutrophil %: 80.4 H Glucose Level: 118 H Sodium Level: 131 L Potassium Level: 4.0 BUN: 10 Creatinine Lvl (s): 0.83 Assessment/Plan 1. Cervical spondylosis Chronic, s/p C3-C4 cervical discectomy and cervical fusion *POD #1. *Management per primary team. *Continue PO pain medications and antiemetics. *Consult placed to PT and OT to evaluate and treat - cleared for d/c home. *special services agent following for discharge planning needs. 2. Hypertension Acute, new onset *Patient states that he is just anxious being here. His blood pressures during surgery seemed to kwasi little on the low side. Patient encouraged to follow-up with his PCP in the next week or two to have a blood pressure recheck. *Continue PRN hydralazine 10 mg IV q4 hours for SBP > 170. *SBP goal of 140 or less. 3. GERD (gastroesophageal reflux disease) Chronic *Continue Pepcid daily. 4. Tobacco use (smoker) Chronic *Encouraged cessation - patient states he has just been stress smoking lately. *Offered nicotine patch but patient did not feel that he would need it. Will order PRN in case he changes his mind. DVT prophylaxis with SCDs. Code status: Full Code. Labs, diagnostic test and progress notes reviewed as noted in HPI. Plan of care discussed with patient. All questions answered. Patient verbalizes understanding and is agreeable with plan of care. This case was discussed with collaborating physician, Dr. Lexx Goncalves. Time Spent 35 minutes spent reviewing past diagnostic tests, reviewing lab results, vital sign trends, medicalhistory, reviewing medications, discussing plan of care with nursing, geriatric social work professor, and therapy,examining patient, collaborating with physician, and documenting in chart. Digitally Signed by YULI ROMAN on 05/13/2023 10:54 AM [facility]08-28-2023 Note ORIGINAL Images acquired, not reported on this accession number.[facility]08-28-2023 Anesthesiology Consult note Patient: KIM CALDWELL Age: 63 years Sex: Male : 1960 Associated Diagnoses: None Author: SEJAL, ABIEL F. EVIDENCE SPECIALIST-FABRICATION MACHINE OPERATOR Assessment Postanesthesia assessment Vitals: Vital signs from flowsheet : Vital Signs 05/12/2023 13:05 EDT Heart Rate Monitored 72 bpm bpm Respiratory Rate - Anes 8 br/min br/min 05/12/2023 13:00 EDT Temperature (Route Not Specified) 36 DegC DegC Heart Rate Monitored 68 bpm bpm Respiratory Rate - Anes 5 br/min br/min Systolic Blood Pressure Non-Invasive 88 mmHg mmHg Diastolic Blood Pressure Non-Invasive 72 mmHg mmHg 05/12/2023 12:55 EDT Heart Rate Monitored 56 bpm bpm Respiratory Rate - Anes 8 br/min br/min Systolic Blood Pressure Non-Invasive 107 mmHg mmHg Diastolic Blood Pressure Non-Invasive 70 mmHg mmHg 05/12/2023 12:50 EDT Heart Rate Monitored 68 bpm bpm Respiratory Rate - Anes 7 br/min br/min Systolic Blood Pressure Non-Invasive 91 mmHg mmHg Diastolic Blood Pressure Non-Invasive 48 mmHg mmHg 05/12/2023 12:45 EDT Temperature (Route Not Specified) 36 DegC DegC Heart Rate Monitored 69 bpm bpm Respiratory Rate - Anes 8 br/min br/min Systolic Blood Pressure Non-Invasive 154 mmHg mmHg Diastolic Blood Pressure Non-Invasive 122 mmHg mmHg 05/12/2023 12:40 EDT Heart Rate Monitored 70 bpm bpm Respiratory Rate - Anes 8 br/min br/min Systolic Blood Pressure Non-Invasive 185 mmHg mmHg Diastolic Blood Pressure Non-Invasive 165 mmHg mmHg 05/12/2023 12:38 EDT Systolic Blood Pressure Non-Invasive 184 mmHg mmHg Diastolic Blood Pressure Non-Invasive 152 mmHg mmHg 05/12/2023 12:35 EDT Heart Rate Monitored 65 bpm bpm Respiratory Rate - Anes 8 br/min br/min 05/12/2023 12:30 EDT Temperature (Route Not Specified) 36 DegC DegC Heart Rate Monitored 64 bpm bpm Respiratory Rate - Anes 8 br/min br/min Systolic Blood Pressure Non-Invasive 128 mmHg mmHg Diastolic Blood Pressure Non-Invasive 86 mmHg mmHg 05/12/2023 12:25 EDT Heart Rate Monitored 62 bpm bpm Respiratory Rate - Anes 8 br/min br/min Systolic Blood Pressure Non-Invasive 103 mmHg mmHg Diastolic Blood Pressure Non-Invasive 67 mmHg mmHg 05/12/2023 12:20 EDT Heart Rate Monitored 65 bpm bpm Respiratory Rate - Anes 8 br/min br/min Systolic Blood Pressure Non-Invasive 81 mmHg mmHg Diastolic Blood Pressure Non-Invasive 72 mmHg mmHg 05/12/2023 12:15 EDT Temperature (Route Not Specified) 36 DegC DegC Heart Rate Monitored 68 bpm bpm Respiratory Rate - Anes 8 br/min br/min Systolic Blood Pressure Non-Invasive 110 mmHg mmHg Diastolic Blood Pressure Non-Invasive 68 mmHg mmHg 05/12/2023 12:10 EDT Heart Rate Monitored 73 bpm bpm Respiratory Rate - Anes 8 br/min br/min Systolic Blood Pressure Non-Invasive 86 mmHg mmHg Diastolic Blood Pressure Non-Invasive 62 mmHg mmHg 05/12/2023 12:05 EDT Heart Rate Monitored 66 bpm bpm Respiratory Rate - Anes 8 br/min br/min Systolic Blood Pressure Non-Invasive 95 mmHg mmHg Diastolic Blood Pressure Non-Invasive 70 mmHg mmHg 05/12/2023 12:03 EDT Systolic Blood Pressure Non-Invasive 144 mmHg mmHg Diastolic Blood Pressure Non-Invasive 73 mmHg mmHg 05/12/2023 12:00 EDT Temperature (Route Not Specified) 36 DegC DegC Heart Rate Monitored 66 bpm bpm Respiratory Rate - Anes 8 br/min br/min 05/12/2023 11:57 EDT Systolic Blood Pressure Non-Invasive 76 mmHg mmHg Diastolic Blood Pressure Non-Invasive 58 mmHg mmHg 05/12/2023 11:55 EDT Heart Rate Monitored 59 bpm bpm Respiratory Rate - Anes 8 br/min br/min Systolic Blood Pressure Non-Invasive 92 mmHg mmHg Diastolic Blood Pressure Non-Invasive 59 mmHg mmHg 05/12/2023 11:53 EDT Systolic Blood Pressure Non-Invasive 83 mmHg mmHg Diastolic Blood Pressure Non-Invasive 61 mmHg mmHg 05/12/2023 11:50 EDT Heart Rate Monitored 68 bpm bpm Respiratory Rate - Anes 8 br/min br/min Systolic Blood Pressure Non-Invasive 73 mmHg mmHg Diastolic Blood Pressure Non-Invasive 52 mmHg mmHg 05/12/2023 11:45 EDT Temperature (Route Not Specified) 36 DegC DegC Heart Rate Monitored 74 bpm bpm Respiratory Rate - Anes 8 br/min br/min Systolic Blood Pressure Non-Invasive 81 mmHg mmHg Diastolic Blood Pressure Non-Invasive 60 mmHg mmHg 05/12/2023 11:44 EDT Systolic Blood Pressure Non-Invasive 82 mmHg mmHg Diastolic Blood Pressure Non-Invasive 56 mmHg mmHg 05/12/2023 11:40 EDT Heart Rate Monitored 81 bpm bpm Respiratory Rate - Anes 8 br/min br/min Systolic Blood Pressure Non-Invasive 91 mmHg mmHg Diastolic Blood Pressure Non-Invasive 68 mmHg mmHg 05/12/2023 11:35 EDT Heart Rate Monitored 86 bpm bpm Respiratory Rate - Anes 8 br/min br/min Systolic Blood Pressure Non-Invasive 114 mmHg mmHg Diastolic Blood Pressure Non-Invasive 91 mmHg mmHg 05/12/2023 11:30 EDT Heart Rate Monitored 108 bpm bpm Respiratory Rate - Anes 7 br/min br/min Systolic Blood Pressure Non-Invasive 130 mmHg mmHg Diastolic Blood Pressure Non-Invasive 95 mmHg mmHg 05/12/2023 11:26 EDT Systolic Blood Pressure Non-Invasive 137 mmHg mmHg Diastolic Blood Pressure Non-Invasive 93 mmHg mmHg 05/12/2023 11:25 EDT Respiratory Rate - Anes 0 br/min br/min 05/12/2023 10:32 EDT Temperature Temporal Artery 36.0 DegC Peripheral Pulse Rate 76 bpm Respiratory Rate 18 br/min Systolic Blood Pressure Non-Invasive 162 mmHg HI Diastolic Blood Pressure Non-Invasive 96 mmHg HI , Measurements from flowsheet . Mental status: alert & oriented x 4. Respiratory function: respirations are non-labored. Respiratory support: none. CV function: Normal rate. Cardiovascular support: none. Pain. Nausea status: see nursing documentation of medications. Postoperative hydration status: within normal limits. Digitally Signed by ABIEL POST on 05/12/2023 01:14 PM [facility]08-28-2023 Anesthesiology Consult note Patient: KIM CALDWELL Age: 63 years Sex: Male : 1960 Associated Diagnoses: None Author: ABIEL POST Preoperative Information Time of last food or liquid consumption: 05/12/2023 00:00:00 Anesthesia history Patient's history: negative. Family's history: negative. Health Status Allergies: Allergic Reactions (Selected) NKA, Allergies (1) ActiveReaction NKANone Documented Current medications: (Selected) Inpatient Medications Ordered Heparin for IV + Sodium Chloride 0.9% intravenous solution 1,000 mL: 30,000 unit(s), 6 mL, 0 mL/hr,Miscellaneous, PREOP pharm NS 1000 mL: 20 mL/hr, Intravenous, Stop: 05/13/23 17:59:00 EDT Prescriptions Prescribed [place] 325- 5 mg oral tablet: 1 tab(s), Oral, q6h, for 7 day(s), PRN: for pain, 28 tab(s), 0 Refill(s) Documented Medications Documented ceFAZolin 2 g injection: 2 gram(s), IV Piggyback, PREOP pharm, 0 Refill(s), Medications (2) Active Scheduled: (1) heparin + NS (0.9% nacl) 1,000 mL 30,000 unit(s) 6 mL, Miscellaneous, PREOP pharm Continuous: (1) NS (0.9% nacl) 1000 mL 1,000 mL, Intravenous, 20 mL/hr PRN: (0) Problem list: Medical Calcific tendinitis of right shoulder / SNOMED CT 597904721128177 / Confirmed Chronic coughing / SNOMED CT 655436931 / Confirmed Abnormal finding on CT scan of Abd. / SNOMED CT 4343624741 / Confirmed Intestinal malrotation / SNOMED CT 72267296 / Confirmed Falling episodes / SNOMED CT 566310173 / Confirmed GERD (gastroesophageal reflux disease) / SNOMED CT 372081102 / Confirmed Abnormal upper gastrointestinal barium series / SNOMED CT 4111141888 / Confirmed Balance problem / SNOMED CT 1445247096 / Confirmed Numbness or tingling / SNOMED CT 3908126214 / Confirmed Over weight / SNOMED CT 969964030 / Confirmed Pain of shoulder with external rotation / SNOMED CT 781659404 / Confirmed Hepatic steatosis / SNOMED CT 548518320 / Confirmed, Active Problems (13) Abnormal finding on CT scan of Abd. Abnormal upper gastrointestinal barium series Balance problem Calcific tendinitis of right shoulder Chronic coughing Falling episodes GERD (gastroesophageal reflux disease) Hepatic steatosis Intestinal malrotation Numbness or tingling Over weight Pain of shoulder with external rotation Tobacco use (smoker) Histories Family History: [place]'s chorea Mother Sister Alzheimer disease Father Procedure history: Cervical spinal fusion by anterior technique ([id number]) on 05/12/2023 at 63 Years. Excision of cataract ([id number]). Comments: 05/09/2023 13:52 EDT - Armida Tai RN bilateral Social History Social & Psychosocial Habits Alcohol 05/12/2023Risk Assessment: High Risk 05/12/2023 Use: Current Type: Beer Frequency: Daily Maximum drinks per episode in last year: 6 Comment: 04-24 beers - 06/24/2018 10:40 - LESA Lomeli Substance Abuse 05/12/2023Risk Assessment: Denies Substance Abuse 05/12/2023 Use: Never Tobacco 05/12/2023 Tobacco Use: 10 or more cigarettes (1/ Exposure to Tobacco Smoke Lives in non-smoking home Type: Cigarettes Number of years: 40 Home/Environment 05/12/2023 Domestic Concerns None Living situation: Home/Independent Primary Combat Systems Engineer: Self Current Home Treatments None Special Services and Community Resources None Marital Status of Patient if Patient Independent Adult: Unmarried Nutrition/Health 05/12/2023 Type of diet: Regular Appetite Good Eating Difficulties None Caffeine intake amount: None . Physical Examination Vital Signs 05/12/2023 12:00 EDT Heart Rate Monitored 66 bpm bpm Respiratory Rate - Anes 8 br/min br/min 05/12/2023 11:57 EDT Systolic Blood Pressure Non-Invasive 76 mmHg mmHg Diastolic Blood Pressure Non-Invasive 58 mmHg mmHg 05/12/2023 11:55 EDT Heart Rate Monitored 59 bpm bpm Respiratory Rate - Anes 8 br/min br/min Systolic Blood Pressure Non-Invasive 92 mmHg mmHg Diastolic Blood Pressure Non-Invasive 59 mmHg mmHg 05/12/2023 11:53 EDT Systolic Blood Pressure Non-Invasive 83 mmHg mmHg Diastolic Blood Pressure Non-Invasive 61 mmHg mmHg 05/12/2023 11:50 EDT Heart Rate Monitored 68 bpm bpm Respiratory Rate - Anes 8 br/min br/min Systolic Blood Pressure Non-Invasive 73 mmHg mmHg Diastolic Blood Pressure Non-Invasive 52 mmHg mmHg 05/12/2023 11:45 EDT Temperature (Route Not Specified) 36 DegC DegC Heart Rate Monitored 74 bpm bpm Respiratory Rate - Anes 8 br/min br/min Systolic Blood Pressure Non-Invasive 81 mmHg mmHg Diastolic Blood Pressure Non-Invasive 60 mmHg mmHg 05/12/2023 11:44 EDT Systolic Blood Pressure Non-Invasive 82 mmHg mmHg Diastolic Blood Pressure Non-Invasive 56 mmHg mmHg 05/12/2023 11:40 EDT Heart Rate Monitored 81 bpm bpm Respiratory Rate - Anes 8 br/min br/min Systolic Blood Pressure Non-Invasive 91 mmHg mmHg Diastolic Blood Pressure Non-Invasive 68 mmHg mmHg 05/12/2023 11:35 EDT Heart Rate Monitored 86 bpm bpm Respiratory Rate - Anes 8 br/min br/min Systolic Blood Pressure Non-Invasive 114 mmHg mmHg Diastolic Blood Pressure Non-Invasive 91 mmHg mmHg 05/12/2023 11:30 EDT Heart Rate Monitored 108 bpm bpm Respiratory Rate - Anes 7 br/min br/min Systolic Blood Pressure Non-Invasive 130 mmHg mmHg Diastolic Blood Pressure Non-Invasive 95 mmHg mmHg 05/12/2023 11:26 EDT Systolic Blood Pressure Non-Invasive 137 mmHg mmHg Diastolic Blood Pressure Non-Invasive 93 mmHg mmHg 05/12/2023 11:25 EDT Respiratory Rate - Anes 0 br/min br/min 05/12/2023 10:32 EDT Temperature Temporal Artery 36.0 DegC Peripheral Pulse Rate 76 bpm Respiratory Rate 18 br/min Systolic Blood Pressure Non-Invasive 162 mmHg HI Diastolic Blood Pressure Non-Invasive 96 mmHg HI Vital Signs(last 24 hrs) Last Charted Heart Rate [id number] bpm (MAY 12 12:00) Resp Rate 18 br/min (MAY 12 10:32) SBP76 mmHg (MAY 12 11:57) DBP58 mmHg (MAY 12 11:57) BMI24.82 (MAY 12 10:16) Measurements from flowsheet : Measurements 05/12/2023 10:16 EDT Height 175 cm Height in inches 68.9 inch(es) Admission Weight 76 kg Weight Lbs 167.2 lb Jacobson Body Weight 70.46 kg BSA Admission 1.91 Body Mass Index 24.82 kg/m2 Pain assessment: Pain Assessment 05/12/2023 10:32 EDT Primary Pain Location Shoulder Primary Pain Laterality Bilateral Primary Pain Intensity 3 Primary Pain Quality Aching, Sharp Pain Scale Type 0-10 Pain scale . General: Alert and oriented. Airway: Normal temporomandibular joint mobility, Normal mouth, limited L, R and extension. No flexion. Discussed with surgeon prior to positioning. Dentition Evaluation: Dentures, upper, poor lowers. no loose. Respiratory: Respirations are non-labored. Cardiovascular: Normal rate. Neurologic: Alert, Oriented. Review / Management Results review: No qualifying data available , Lab results 05/12/2023 12:01 EDT SN - XI - X-Ray Type C-Arm 05/12/2023 12:00 EDT SN - Irl - Irrigant Normal Saline SN - IrI - Volume In 250 mL SN - IrI - Volume Out 250 mL 05/12/2023 12:00 EDT SN - PP - Body Position Supine Standard Intra-op 05/12/2023 12:00 EDT Heart Rate Monitored 66 bpm bpm Respiratory Rate - Anes 8 br/min br/min Oxygen Saturation 100 % % 05/12/2023 11:59 EDT SN - SP - Prep Agents Alcohol, Betadine Scrub, Betadine Solution SN - SP - HR - Method N/A 05/12/2023 11:57 EDT SN - PTCare - Anti-thromboembolism Elizabeth Sequential Compression Device (SCD) 05/12/2023 11:57 EDT Systolic Blood Pressure Non-Invasive 76 mmHg mmHg Diastolic Blood Pressure Non-Invasive 58 mmHg mmHg 05/12/2023 11:56 EDT SN - CTm - Surgery Start 05/12/2023 11:54 05/12/2023 11:56 EDT SN - NV - Medication MARCAINE BUPIVACAINE 0.25% 30ML SN - NV - Route of Administration Local SN - NV - By (Single) SN - NV - By (Single) 05/12/2023 11:55 EDT Heart Rate Monitored 59 bpm bpm Respiratory Rate - Anes 8 br/min br/min Systolic Blood Pressure Non-Invasive 92 mmHg mmHg Diastolic Blood Pressure Non-Invasive 59 mmHg mmHg Oxygen Saturation 100 % % Set Rate Anes 8 br/min br/min 05/12/2023 11:54 EDT SN - CTm - Surgery Start Surgery Start 05/12/2023 11:53 EDT Systolic Blood Pressure Non-Invasive 83 mmHg mmHg Diastolic Blood Pressure Non-Invasive 61 mmHg mmHg 05/12/2023 11:50 EDT Heart Rate Monitored 68 bpm bpm Respiratory Rate - Anes 8 br/min br/min Systolic Blood Pressure Non-Invasive 73 mmHg mmHg Diastolic Blood Pressure Non-Invasive 52 mmHg mmHg Oxygen Saturation 100 % % Set Rate Anes 8 br/min br/min 05/12/2023 11:45 EDT Temperature (Route Not Specified) 36 DegC DegC Heart Rate Monitored 74 bpm bpm Respiratory Rate - Anes 8 br/min br/min Systolic Blood Pressure Non-Invasive 81 mmHg mmHg Diastolic Blood Pressure Non-Invasive 60 mmHg mmHg Oxygen Saturation 100 % % Set Rate Anes 8 br/min br/min 05/12/2023 11:44 EDT Systolic Blood Pressure Non-Invasive 82 mmHg mmHg Diastolic Blood Pressure Non-Invasive 56 mmHg mmHg 05/12/2023 11:40 EDT Heart Rate Monitored 81 bpm bpm Respiratory Rate - Anes 8 br/min br/min Systolic Blood Pressure Non-Invasive 91 mmHg mmHg Diastolic Blood Pressure Non-Invasive 68 mmHg mmHg Oxygen Saturation 100 % % Set Rate Anes 8 br/min br/min 05/12/2023 11:35 EDT Heart Rate Monitored 86 bpm bpm Respiratory Rate - Anes 8 br/min br/min Systolic Blood Pressure Non-Invasive 114 mmHg mmHg Diastolic Blood Pressure Non-Invasive 91 mmHg mmHg Oxygen Saturation 100 % % Set Rate Anes 8 br/min br/min 05/12/2023 11:33 EDT SN - Preop - CTm Pt in SDS Room 05/12/2023 10:00 SN - Preop - CTm Pt Ready for OR/Proced 05/12/2023 11:10 05/12/2023 11:30 EDT Heart Rate Monitored 108 bpm bpm Respiratory Rate - Anes 7 br/min br/min Systolic Blood Pressure Non-Invasive 130 mmHg mmHg Diastolic Blood Pressure Non-Invasive 95 mmHg mmHg Oxygen Saturation 99 % % Set Rate Anes 8 br/min br/min 05/12/2023 11:26 EDT Systolic Blood Pressure Non-Invasive 137 mmHg mmHg Diastolic Blood Pressure Non-Invasive 93 mmHg mmHg 05/12/2023 11:25 EDT Respiratory Rate - Anes 0 br/min br/min 05/12/2023 11:22 EDT SN - CAt - Case Attendee SN - CAt - Case Attendee SN - CAt - Role Performed Tinning Equipment Tender 05/12/2023 11:21 EDT SN - CTm - Anesthesia Start Time Anesthesia Start 05/12/2023 11:20 EDT SN - Proc - Actual Procedure ANTERIOR CERVICAL DISCECTOMY AND FUSION, CERVICAL 3- CERVICAL 4 05/12/2023 11:20 EDT cefazolin 2 gram(s) gram(s) Sodium Chloride 0.9% 100 mL mL 05/12/2023 11:19 EDT Sodium Chloride 0.9% Begin Bag 1,000 mL mL 05/12/2023 11:16 EDT SN - CAt - Case Attendee SN - CAt - Case Attendee SN - CAt - Case Attendee SN - CAt - Case Attendee SN - CAt - Role Performed Cell Saver Hall Porter SN - CAt - Role Performed Local Nerve Monitor 05/12/2023 11:05 EDT Patient Instructions Documentation Patient Instructions Documentation 05/12/2023 11:00 EDT Hand Left 05/12/2023 20 gauge Peripheral IV Activity: Insert new site Peripheral IV Dressing Condition: Clean, Dry, Intact Peripheral IV Dressing Activity: Applied, Transparent dressing Peripheral IV Line Status/Patency: Flushes easily Peripheral IV Line Care: Secured with tape Peripheral IV Site Condition: No complications Peripheral IV Equipment: Extension set, PRN Adaptor Peripheral IV Number of Attempts: 4 05/12/2023 10:55 EDT SN - Assess - LOC Alert, Awake SN - Assess - Orientation Oriented X 3 SN - Assess - Post-op Skin Integrity Intact/Dry 05/12/2023 10:55 EDT SN - GCD - Post-operative Diagnosis CERVICAL DISC DISORDER WITH MYELOPATHY, UNSPECIFIED CERVICAL REGION; OTHER CERVICAL DISC DEGENERATION, UNSPECIFIED CERVICAL REGION; OTHER SPECIFIED INFLAMMATORY SPONDYLOPATHIES, CERVICAL REGION; PARESTHESIA OF SKIN SN - GCD - Case Level Level 5 05/12/2023 10:54 EDT SN - CAt - Case Attendee SN - CAt - Case Attendee SN - CAt - Case Attendee SN - CAt - Case Attendee SN - CAt - Role Performed Claims Service Representative 1 SN - CAt - Role Performed FABRICATION MACHINE OPERATOR 05/12/2023 10:47 EDT SN - CAt - Case Attendee SN - CAt - Case Attendee SN - CAt - Case Attendee SN - CAt - Case Attendee SN - CAt - Case Attendee SN - CAt - Case Attendee SN - CAt - Case Attendee SN - CAt - Case Attendee SN - CAt - Role Performed Primary Surgeon SN - CAt - Role Performed Physical Therapy Assistant Instructor 1 SN - CAt - Role Performed Territory Development Manager SN - CAt - Role Performed Scrub 1 05/12/2023 10:32 EDT Temperature Temporal Artery 36.0 DegC Peripheral Pulse Rate 76 bpm Respiratory Rate 18 br/min Systolic Blood Pressure Non-Invasive 162 mmHg HI Diastolic Blood Pressure Non-Invasive 96 mmHg HI Primary Pain Location Shoulder Primary Pain Laterality Bilateral Primary Pain Intensity 3 Primary Pain Quality Aching, Sharp Pain Scale Type 0-10 Pain scale Monitor Alarms On and Limits Checked Heart Rhythm Regular Oxygen Therapy Room air Oxygen Saturation 100 % Abdomen Description Non-distended, Soft, Flat Bowel Sounds All Quadrants Present Skin Description Normal for ethnicity Skin Integrity Intact Neurological Symptoms Numbness, Tingling Extremity Movement Unequal Characteristics of Speech Clear Level of Consciousness Alert Strength All Extremities Weak Left Upper Extremity Sensation Numbness, Tingling Right Upper Extremity Sensation Numbness, Tingling Left Lower Extremity Sensation Numbness, Tingling Right Lower Extremity Sensation Numbness, Tingling Affect/Behavior Appropriate, Calm, Cooperative Orientation Oriented x 4 Orientation Assessment Oriented x 4 Positioning Other: needs assistance with most movement. Mobility Assistance Level Moderate assistance Activity Status ADL Awake Standard Safety ID band on, Call device within reach, Bed in low position, Wheels locked, Safety level maintained 05/12/2023 10:25 EDT Urinary Elimination Voiding, no difficulties IV Present Present Allergies No Anesthesia Extension Set Applied Yes Hotel Front Office Manager On Yes Consent Form Signed Yes Patient Dressed In Hospital gown Pre-op Preparation Glasses removed CHG Preoperative Wash/Wipe Night before procedure, Day of procedure, Site specific wipe Preop Nasal Swab Povidone-Iodine CHG Skin Prep Completed for Eligible Surgery History & Physical Update On Chart Yes History & Physical On Chart Yes Obstructive Sleep Apnea Assess Completed No NPO Status More than 8 hours Allergy Band on and Verified Yes Patient ID Band on and Verified Yes Site Verified by Patient/Family Yes Anesthesia Consent Signed Yes Last Fluid Intake 05/11/2023 18:00 Last Food Intake 05/11/2023 18:00 Last Void 05/12/2023 8:00 05/12/2023 10:16 EDT Designated Person #1 We May Share UDAY Suarez [phone] Designated Person #1 Relationship Friend Privacy Restrictions Requested None Height 175 cm Height in inches 68.9 inch(es) Admission Weight 76 kg Weight Lbs 167.2 lb Jacobson Body Weight 70.46 kg BSA Admission 1.91 Body Mass Index 24.82 kg/m2 Patient Type Inpatient Thrombosis Risk Factors NA Thrombosis Risk Factor Add'l Assessment (2) Surgery (Anesthesia greater than 60 minutes) Thrombosis Risk Score 2 Status N/A Do You Wish/Go to Sleep/Never Wake Up No Thoughts of Harming Others - History No Thoughts of Suicide - History No Hospital Clergy to Visit Patient Verbalizes No Spiritual Needs Sensory Deficits None Advanced Directives No - refuses information Infectious Disease Symptoms Patient states no symptoms Infectious Disease Recent Exposure No Alcohol and Drug Use No Employee of Institutional Living No Health Care Employee No History of Exposure to TB No History of Positive Chest X-Ray for TB No History of Positive TB Skin Test No Homeless No Known Immunosuppression No Recent Immigrant No Resident of Institutional Living No Bloody Sputum No Fatigue No Fever No Loss of Appetite No Night Sweats No Persistent Cough > 3 Weeks No Weight Loss No Barriers to Learning None evident Teaching Method Explanation, Printed materials Preferred Spoken Language Jordanian Preferred Written Language Jordanian Teaching Evaluation No further teaching needed Safety Brochure Information Reviewed Yes [facility] Video Viewed No Information Given by Patient Patient's Current Physicians Patient's Current Physicians Belongings At Bedside Glasses, Pants, T-shirt, Undergarments Personal Home Medications Received No home medications were brought in Belongings Sent Home None Belongings to Security/Secured in Dept None Discharge To, Anticipated Home with family care Prev Test Positive/Diagnosis w/COVID-19 No Current Quarantine/Isolated any Illness No Any Contact with Sick Animals/Birds No Traveled Anywhere in Last 30 Days No Lost Weight Unintentionally Recently No Eat Poorly Due to Decreased Appetite No Total MST Score 0 N/A Personal Devices, Patient Valuables Dentures, upper, Glasses Admission Note-Nursing Patient History (AO) 05/12/2023 7:28 EDT [place] GARS[place] . Assessment and Plan [place] [employer] Anesthesiologists (ASA) physical status classification: Class III. Anesthetic Preoperative Plan Anesthetic technique: General. Informed consent: signed by patient. Digitally Signed by ABIEL POST on 05/12/2023 12:08 PM [facility]04-08-2021 NoteHNO ID: [id number] Author: Clover Rico (Pa) Service: ? Author Type: Physician Business Division Chair Type: Progress Notes Filed: 12/21/2020 1:24 PM Note Text: This note was created using [employer]. Subjective Kim Caldwell is a 60 year old male. HPI Presents with a fever over the past 3 and half days. Started to get a little congested Friday and then by the end of the day had chills and felt feverish when he got off of work. He did attempt to go in on Friday but felt like he still had a fever so he went home. He has a temp here of 101.9. He denies chest pain or shortness of breath. No significant cough. No vomiting or diarrhea. No abdominal pain. No change in smell or taste. He has not had Covid previously and is not immunized. He has had some body aches. Review of Systems Constitutional: Positive for chills, fatigue and fever. HENT: Positive for congestion. Negative for ear pain and sore throat. Respiratory: Negative for cough and shortness of breath. Cardiovascular: Negative. Gastrointestinal: Negative. Genitourinary: Negative. Musculoskeletal: Negative. All other systems reviewed and are negative. History reviewed. No pertinent past medical history. Current Outpatient Medications Medication Sig Dispense Refill - Uxyvjyoxvtdfyby-Lxqhzcurt-VW (BROMFED DM) 2-30-10 mg/5 mL syrup Take 10 mL by mouth three times daily as needed. (Patient not taking: Reported on 11/09/2019 ) 120 mL 1 No current facility-administered medications for this visit. No past surgical history on file. No family history on file. Social History Tobacco Use - Smoking status: Current Some Day Smoker - Smokeless tobacco: Never Used Substance Use Topics - Alcohol use: Yes Comment: 2-3 beers daily - Drug use: Not Currently Objective BP 110/60 Pulse 113 Temp (!) 38.8 ?C (101.9 ?F) (Tympanic) Resp 18 Wt 80.1 kg (176 lb 9.6 oz) SpO2 99% BMI 26.08 kg/m? Physical Exam Vitals reviewed. Constitutional: Appearance: Normal appearance. HENT: Head: Normocephalic and atraumatic. Right Ear: Tympanic membrane, ear canal and external ear normal. Left Ear: Tympanic membrane, ear canal and external ear normal. Nose: Congestion present. Mouth/Throat: Mouth: Mucous membranes are moist. Pharynx: Oropharynx is clear. Cardiovascular: Rate and Rhythm: Normal rate and regular rhythm. Heart sounds: Normal heart sounds. Pulmonary: Effort: Pulmonary effort is normal. Breath sounds: Normal breath sounds. Abdominal: General: Abdomen is flat. Bowel sounds are normal. There is no distension. Palpations: Abdomen is soft. Tenderness: There is no abdominal tenderness. There is no guarding. Musculoskeletal: Cervical back: Neck supple. Lymphadenopathy: Cervical: No cervical adenopathy. Skin: General: Skin is warm and dry. Findings: No rash. Neurological: General: No focal deficit present. Mental Status: He is alert and oriented to person, place, and time. Assessment and Plan ASSESSMENT/PLAN: 1. Fever, unspecified fever cause - ICD9: 780.60, ICD10: R50.9 This x-ray is negative. Patient likely does have COVID-19. I did test today. Discussed red flags and quarantine. Discussed supportive care. Patient agreeable with plan. - 2019 CORONAVIRUS - XR CHEST 2V FRONTAL/LAT VERNELL [facility]04-08-2021 NoteHNO ID: [id number] Author: Marylou Kaiser (Rt) Leonard Buckner Service: Radiology Author Type: Railcar Switchman Type: Progress Notes Filed: 12/21/2020 1:05 PM Note Text: Radiology Service Progress Note PATIENT NAME: Kim Caldwell DATE OF SERVICE: December 21, 2020 TIME: 1:05 PM PATIENT IDENTITY VERIFICATION COMPLETED USING TWO (2) IDENTIFIERS: Name and Date of confirmed by patient verbally. FALL SCREENING: Has the patient had 2 falls in the last year or 1 fall with injury or currently using an Ambulatory Assistive Device (Walker, Cane, Wheelchair, Crutches, etc.)? No PATIENT GENDER DATA: Male PATIENT RELEVANT IMPLANT DATA REVIEWED: Not Applicable RADIOLOGY DEPARTMENT: General X-ray: Exam(s) Completed: Chest X-Ray PERIPHERAL IV DATA: Not applicable SIGNED BY: RT Melchor December 21, 2020 1:05 [facility]04-08-2021 History of Present illness Narrative* Marylou Buckner Tech (Rt) - 12/21/2020 1:00 PM EDT Radiology Service Progress Note PATIENT NAME: Kim Caldwell DATE OF SERVICE: December 21, 2020 TIME: 1:05 PM PATIENT IDENTITY VERIFICATION COMPLETED USING TWO (2) IDENTIFIERS: Name and Date of confirmedby patient verbally. FALL SCREENING: Has the patient had 2 falls in the last year or 1 fall with injury or currently using an Ambulatory Assistive Device (Walker, Cane, Wheelchair, Crutches, etc.)? No PATIENT GENDER DATA: Male PATIENT RELEVANT IMPLANT DATA REVIEWED: Not Applicable RADIOLOGY DEPARTMENT: General X-ray: Exam(s) Completed: Chest X-Ray PERIPHERAL IV DATA: Not applicable SIGNED BY: RT Melchor December 21, 2020 1:05 PM [facility] Author Jack Gonzales [facility] Note Date/Time January 24, 2025 6:33p m [facility] Medical Records Department [address] [place] [address] Counseling Note - Pharmacy 01/24/25 1640 MR#: [id number] Acct: [id number] Name: KIM CALDWELL Rep #:[id number] : 1960 64 From: Jack Gonzales PCP: Dr. Emanuel Macedo MD Status:ADM I N Y Location: [place] [address] Pharmacy [place] Med Reconciliation Pharmacy Service has performed discharge medication reconciliation for this patient. The patient's discharge medication list was reviewed for discrepancies and discrepancies were resolved. Medications at Discharge Home Medications mirtazapine 7.5 mg tablet 7.5 mg PO QHS mental health 04/21/24 pantoprazole 40 mg tablet,delayed release (Protonix) 40 mg PO DAILY reflux #30 tabs 04/26/24 ascorbic acid (vitamin C) 500 mg tablet 500 mg PO DAILY vitamin 01/19/25 losartan 100 mg tablet 100 mg PO QHS blood pressure 01/19/25 ferrous sulfate 325 mg (65 mg iron) tablet 325 mg PO QODAY #30 tabs 01/24/25 folic acid 1 mg tablet 1 mg PO BREAKFAST #0 tabs 01/24/25 potassium chloride 20 mEq tablet,extended release(part/cryst) 20 meq PO DAILYCM 30 days #0 tabs 01/24/25 thiamine HCl (vitamin B1) 100 mg tablet 100 mg PO BREAKFAST #0 tabs 01/24/25 01/24/25 1640 <Electronically signed by Jack davis> Date _ Jack Gonzales Cosigner Signature (if applicable): Date CC: ~ Signed [facility] Work Phone: Discharge summary Author Tamir Allan [facility] August 16, 2023 6:11am Note Date/Time August 16, 2023 5 :10am 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 He did not hit his head or injure anything else including his back, since he was unable to stand due to the pain and suspected fracture, he was brought here by EMS, he has not received any pain medication yet. PFSH PFS Medical History no medical history no medical history Home Medications NK 08/16/23 [History Last Taken Unknown] Allergy/AdvReac Type Severity Reaction Status Date / Time No Known Allergies Allergy Verified 08/16/23 05:09 Surgical History (Updated 08/16/23 @ 06:[address] Tamir Allan MD) Hx of neck surgery Social History Smoking Status: Current every day smoker tobacco type: cigarettes ROS ROS ED Constitutional Constitutional ED: Denies chills or fever(s) Eyes Eyes: Denies change in vision or diplopia ENT ENT ED: Denies ear pain, epistaxis, facial pain or rhinorrhea Cardiovascular Cardiovascular: Denies chest pain or palpitations Respiratory/Chest Respiratory/Chest: Denies cough or dyspnea Gastrointestinal Gastrointestinal: Denies abdominal pain, diarrhea, melena, nausea or vomiting Genitourinary Genitourinary ED: Denies dysuria or hematuria Musculoskeletal Musculoskeletal: Reports extremity pain; Denies back pain or neck pain Integumentary Denies abscess, Abrasions, laceration or rash Neurologic Neurologic: Denies confusion, headache(s), paresthesias or weakness EXAM Physical Exam Const Vital Signs: 08/16/23 05:00 08/16/23 05:08 08/16/23 05:58 Temperature 97.6 F L 97.6 F L Temperature Source Temporal Temporal Pulse Rate 91 94 81 Respiratory Rate 16 16 18 Blood Pressure 155/90 H 155/90 H 128/81 H Blood Pressure Mean 111 111 96 Pulse Ox 100 100 100 Oxygen Delivery Method Room Air Room Air Positive well nourished and well developed General Appearance ED: well developed and NAD HEENT Reports nasal mucous membranes and turbinates normal atraumatic Face and Sinus: Negative for facial tenderness Eyes PERRL and EOMs intact bilaterally Visual Acuity: other Other Details: no entrapment or pain with extraocular movements Neck full ROM and supple General: Negative for tenderness Chest Wall inspection of chest normal and palpation of chest normal Chest: symmetrical chest wall rise; Negative for crepitus or tenderness Resp normal respiratory effort and clear to auscultation bilaterally Percussion: other equal BS bilat Cardio no murmurs Rate: regular rate Rhythm: regular rhythm GI normal to inspection, nondistended, normoactive bowel sounds, soft to palpation and non-tender Back/Spine normal ROM Cervical Spine: Negative for cervical spine tenderness Thoracic Spine / Upper Back: Negative for thoracic spinal tenderness Lumbar Spine / Lower Back: Negative for lumbar spinal tenderness Extremity normal to inspection Extremity Narrative: Left hip tenderness, shortening, painful logroll. ASIS nontender, pelvis stableto AP compression. Limited range of motion of the knee due to pain in the hip but no bony tenderness or signs of trauma at the near the ankle or elsewhere in the right lower extremity. All compartments soft and nondistended. All 3 otherextremities full range of motion without any pain or difficulty. General Extremety ED: Yes tenderness Neuro oriented x3, CN's II-XII intact bilaterally, moves all extremities, no focal motor deficits and no sensory deficits noted [place] Coma Scale: document GCS findings Spontaneous Obeys Commands Oriented 15 Sensorium / Orientation: awake and alert Psych mental status grossly normal and thought process normal Skin no wounds Lesions: no lesions Rashes: no rashes MDM MDM MDM Narrative Medical decision making narrative: Three-view x-ray series of the right hip and pelvis on my interpretation shows amildly displaced subcapital hip fracture. No other pelvic bone fractures noted. Patient is neurovascular intact distally, clinically better and stable after morphine and prophylactic Zofran, preoperative EKG and chest x-ray obtained and on my interpretation both normal, 1 view chest. Labs unremarkable. Discussed with Dr. Funk who was on-call for [facility], with whom the patient isestablished, likely to take him to the OR tomorrow morning and requesting hospitalist admission. Lab Data Attestation: I reviewed the patient's lab results. Labs: Laboratory Results - last 24 hr 08/16/23 05:14 WBC 4.4 RBC 3.08 L Hgb 10.1 L Hct 27.5 L MCV 89.3 MCH 32.8 H MCHC 36.7 H RDW Std Deviation 42.5 RDW Coeff of Adiel 13.1 Plt Count 171 MPV 8.8 Immature Gran % (Auto) 0.500 Neut % (Auto) 54.0 Lymph % (Auto) 27.6 Tripp % (Auto) 13.6 H Eos % (Auto) 3.4 Baso % (Auto) 0.9 Absolute Neuts (auto) 2.4 Absolute Lymphs (auto) 1.20 Nucleated RBC % 0 Sodium 126 L Potassium 3.4 L Chloride 92 L Carbon Dioxide 25.0 Anion Gap 9 BUN 10 Creatinine 1.13 Estim Creat Clear Calc 69.99 Est GFR (MDRD) Af Amer 85 Est GFR (MDRD) Non-Af 70 BUN/Creatinine Ratio 8.8 L Glucose 143 H Calcium 8.7 Rhythm Strip Rhythm Strip: Sinus Rhythm Rate: 85 Ectopy: None EKG Initial EKG: Attestation: I personally reviewed and interpreted this EKG as follows: Interpretation: Sinus Rhythm and No Acute Injury Pattern Management Discussion w/another healthcare provider: Hospitalist and Director Records Management ([facility]) Discharge Plan Dx/Rx/DC Orders Clinical Impression: Fall from slipping on wet surface, Closed fracture of right hip Disposition Disposition: Acute Care Hospital [facility] What to do if you have Problems For any increased pain, shortness of breath, bleeding, nausea or vomiting, chestpain, or any unexpected problems, contact your Primary Care Provider. Call [facility] ([phone]) or report to the closest Emergency Room. Call 911 if necessary. 08/16/23 0611 <Electronically signed by Tamir Allan MD> Cosigner Signature (if applicable): CC: PASTORA Adame ~ Signed [facility] Work Phone: Evaluation + Plan note No data available for this section [facility] Evaluation note* Diagnosis Onset Date Resolution Status Closed fracture of right hip acute Fall from slipping on wet surface acute Hypokalemia acute [facility] Work Phone: Evaluation note* Diagnosis Onset Date Resolution Status Closed fracture of right hip acute Contusion of right shoulder acute Fall from slipping on wet surface acute Hypokalemia acute S/P total hip arthroplasty a cute [facility] Work Phone: Evaluation note* Diagnosis Fever, unspecified fever cause documented in this [facility] Author Patrice Watkins [facility] August 16, 2023 6:38am Note Date/Time August 16, 2023 6 :38am [facility] Medical Records Department [address] [place] [id number] H&P Exam - Hospitalist 08/16/23630 MR#: [id number] Acct: [id number] Name: QUINCY CALDWELL Rep #:[id number] : 1960 63 From: Patrice Watkins DO PCP: PASTORA Luzs:ADM [place] Location: [id number] HPI - General General Date of Admission: 08/16/23 Date of Service: 08/16/23 Chief Complaint: Right hip pain HPI Narrative QUINCY CALDWELL, is a 63 M who presents with right hip pain. 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 He is unsure about how he actually landed but it was suddenly and he felt something go at that time. Try to get up but he was unableto due to severe pain in his right hip. He was able to get up to standing to feel the rest himself on something but was not able to be able to put any weighton his right leg. EMS was called and patient was brought to the hospital. Patient was found to have a right hip fracture. Dr. Funk, orthopedics, was contacted and told emergency room physician that the plan would be to take the patient to surgery on the third. With this fall, patient denies hitting his head or any loss of consciousness. He is otherwise a very healthy does not get chest pain or shortness of breath with activities. PFSH Medical History no medical history no medical history Home Medications NK 08/16/23 [History Last Taken Unknown] Allergy/AdvReac Type Severity Reaction Status Date / Time No Known Allergies Allergy Verified 08/16/23 05:09 Surgical History (Updated 08/16/23 @ 06:[address] Tamir Allan MD) Hx of neck surgery Social History (Updated 08/16/23 @ 06:[address] Patrice Watkins, DO) Smoking Status: Current some day smoker alcohol intake: current alcohol intake frequency: a few times a week substance use type: does not use ROS ROS Narrative All review of systems were negative except as mentioned above in the history of present illness and the other review of systems. Vital Signs Vital Signs Vital Signs: 08/16/23 05:00 08/16/23 05:08 08/16/23 05:58 Temperature 36.4 C L 36.4 C L Temperature Source Temporal Temporal Pulse Rate 91 94 81 Respiratory Rate 16 16 18 Blood Pressure 155/90 H 155/90 H 128/81 H Blood Pressure Mean 111 111 96 Pulse Ox 100 100 100 Oxygen Delivery Method Room Air Room Air Weight Weight: 81.6 kg Body Mass Index (BMI) 25.8 Physical Exam Const alert and no apparent distress HEENT normocephalic and head/scalp atraumatic Neck no lymphadenopathy Resp normal respiratory effort, no retractions, no use of accessory muscles and clearto auscultation bilaterally Cardio regular rate, regular rhythm and S1 normal heart sound GI normal to inspection, nondistended, normoactive bowel sounds, soft to palpation,non-tender and non-distended Extremity Extremity Narrative: Short right lower extremity compared to the left. Neuro Sensorium / Orientation: awake and alert Speech: speech normal Psych affect normal Results Lab / Micro Data Attestation: I reviewed the patient's lab results. 08/16/23 05:14 08/16/23 05:14 Labs: Laboratory Results - last 24 hr 08/16/23 05:14: WBC 4.4, RBC 3.08 L, Hgb 10.1 L, Hct 27.5 L, MCV 89.3, MCH 32.8 H, MCHC 36.7 H, RDW Std Deviation 42.5, RDW Coeff of Adiel 13.1, Plt Count 171, MPV 8.8, Immature Gran % (Auto) 0.500, Neut % (Auto) 54.0, Lymph % (Auto) 27.6, Tripp % (Auto) 13.6 H, Eos % (Auto) 3.4, Baso % (Auto) 0.9, Absolute Neuts (auto)2.4, Absolute Lymphs (auto) 1.20, Nucleated RBC % 0, Sodium 126 L, Potassium 3.4L, Chloride 92 L, Carbon Dioxide 25.0, Anion Gap 9, BUN 10, Creatinine 1.13, Estim Creat Clear Calc 69.99, Est GFR (MDRD) Af Amer 85, Est GFR (MDRD) Non-Af 70, BUN/Creatinine Ratio 8.8 L, Glucose 143 H, Calcium 8.7 Rhythm Strip Rhythm Strip: Sinus Rhythm Rate: 85 Ectopy: None Imagaing Hip x-ray reviewed and shows an impacted right hip fracture. Official read pending. Chest x-ray personally reviewed and shows no infiltrate nor pulmonary vascular congestion. Is unremarkable. Official read pending. Assessment & Plan Assessment/Plan (1) Closed fracture of right hip: QUALIFIERS: Encounter type: initial encounter Qualified Code(s): S72.001A - Fracture of unspecified part of neck of right femur, initial encounter for closed fracture PLAN: Due to fall while patient was at work and stumbled backwards. Patient be on bedrest. Check a 25-hydroxy vitamin D level. Orthopedics will be on consultwith tentative plans for the patient to undergo surgery on the third. Patient is medically cleared and optimized to proceed with surgery (NSQIP calculator that patient is overall lower average surgical risk for all outcomes). No additional workup necessary at this time. (2) Hypokalemia: PLAN: Replace. Monitor PLAN: Plan VTE prophylaxis with SCDs for now. Patient required chemical prophylaxis postsurgery. 08/16/23 0638 <Electronically signed by Patrice Watkins DO> Cosigner Signature (if applicable): CC: PASTORA Adame; Dr. Patrice Watkins, DO~ Signed [facility] Work Phone: Hospital Discharge instructions No data available for this section [facility] Progress note No data available for this section [facility] Reason for referral (narrative)No reason for referral information [facility] Work Phone: Summary Purpose Family History No Family History Records Found Relationship Condition Age at Onset Recorded Date/T celso mother Yamhill's disease Unknown father Leukemia Unknown Advance Directives No Advanced Directives Records Found Advance Directive Response Recorded Date/ Time Living Will No August 16 5:12am Power of Licensed Nursing Assistant No August 16, 2023 5:12am Advance Directive Response Recorded Date/ Time Living Will No August 16 7:03am Power of Licensed Nursing Assistant No August 16, 2023 7:03am Advance Directive Response Recorded Date/ Time Do you have a [facility] Power of Licensed Nursing Assistant? No January 19, 2025 11:53am Chief Complaint and Reason for Visit Chief Complaint RIGHT HIP FXR Reason for Visit Closed fracture of r ight hip Fall from slipping on wet surface Hypokalemia Chief Complaint RIGHT HIP FXR RIGHT HIP FXR RIGHT HIP FXR RIGHT HIP FXR RIGHT HIP FXR RIGHT HIP FXR Reason for Visit Closed fracture of r ight hip Contusion of right shoulder Fall from slipping on wet surface Hypokalemia S/P total hip arthroplasty Chief Complaint Admit Date FCE. RX HERE October 05, 2024 1 1:54am SEVERE HYPONATREMIA January 19, 2025 10:30a m SEVERE HYPONATREMIA January 19, 2025 10:32a m SEVERE HYPONATREMIA January 20, 2025 10:14a m SEVERE HYPONATREMIA January 21, 2025 4:11pm SEVERE HYPONATREMIA January 22, 2025 1:05p m SEVERE HYPONATREMIA January 23, 2025 12:42 pm SEVERE HYPONATREMIA January 24, 2025 11:52 am Reason for Visit Admit Date Chronic hyponatremia January 19, 2025 10:30 am Chief Complaint Admit Date SEVERE HYPONATREMIA January 19, 2025 10:30a m SEVERE HYPONATREMIA January 19, 2025 10:32a m SEVERE HYPONATREMIA January 20, 2025 10:14a m SEVERE HYPONATREMIA January 21, 2025 4:11pm SEVERE HYPONATREMIA January 22, 2025 1:05p m SEVERE HYPONATREMIA January 23, 2025 12:42 pm SEVERE HYPONATREMIA January 24, 2025 11:52 am Amb Documentation February 08, 2025 3:57p m NEW - PANCYTOPENIA February 10, 2025 9:03a m Additional Source Comments (unrecognized sect ion and content) No Status Records FoundNo Status Records FoundNo Status Records FoundNo Status Records Found INFORMATION SOURCE (unrecogn ized section and content) DATE CREATED AUTHOR 10/24/2021 [facility] DATE CREATED AUTHOR AUTHOR'S ORGANIZ ATION 05/19/2024 [facility] DATE CREATED AUTHOR AUTHOR'S ORGANIZ ATION 05/23/2024 [facility] DATE CREATED AUTHOR AUTHOR'S ORGANIZ ATION 02/11/2025 [facility] Patient Care team informatio n (unrecognized section and content) Team Status: Active Member Role Status Dates Sofia Adame BUSINESS PROCESS MANAGER, BUSINESS PROCESS MANAGER-C Primary Care Provider Active Team Status: Active Member Role Status Dates Sofia Adame BUSINESS PROCESS MANAGER, BUSINESS PROCESS MANAGER-C Primary Care Provider Active Dr. Tamir Allan MD Emergency Provider Active Dr. Patrice Watkins DO Admit Provider, At tending Provider, Referring Provider Active Team Status: Active Member Role Status Dates Sofia Adame BUSINESS PROCESS MANAGER, BUSINESS PROCESS MANAGER-C Primary Care Provider Active Dr. Tamir Allan MD Emergency Provider Active Dr. Patrice Watkins DO Admit Provider, At tending Provider, Other Provider Active Team Status: Active Member Role Status Dates Sofia Adame BUSINESS PROCESS MANAGER, BUSINESS PROCESS MANAGER-C Primary Care Provider Active Dr. Tamir Allan MD Emergency Provider Active Dr. Patrice Watkins DO Admit Provider, Re ferring Provider, Other Provider Active Dr. Amaris Marks MD Attending Provider, Other Prov ider Active Dr. Obie Funk MD Other Provider Active Team Status: Active Member Role Status Dates Sofia Adame BUSINESS PROCESS MANAGER, BUSINESS PROCESS MANAGER-C Primary Care Provider Active Dr. Tamir Allan MD Emergency Provider Active Dr. Patrice Watkins DO Admit Provider, Re ferring Provider, Other Provider Active Dr. Obie Funk MD Other Provider Active Dr. Shorty Lea MD Attending Provider, Other Provi susan Active Dr. Amaris Marks MD Other Provider Active Team Status: Inactive Member Role Status Dates Sofia Adame BUSINESS PROCESS MANAGER, BUSINESS PROCESS MANAGER-C Primary Care Provider Active Dr. Tamir Allan MD Emergency Provider Active Dr. Patrice Watkins DO Admit Provider, Re ferring Provider, Other Provider Active Dr. Obie Funk MD Other Provider Active Dr. Shorty Lea MD Attending Provider Active Dr. Amaris Marks MD Other Provider Active Team Status: Active Member Role Status Dates Dr. Emanuel Macedo MD Primary Care Provider Active Team Status: Inactive Member Role Status Dates Dr. Emanuel Macedo MD Primary Care Provider Active Start: October 05, 2024 End: October 05, 2024 Dr. Obie Funk MD Attending Provider Active Start: October 05, 2024 End: October 05, 2024 Team Status: Inactive Member Role Status Dates Dr. Emanuel Macedo MD Primary Care Provider Active Start: January 19, 2025 End: January 24, 2025 Dr. Milagro Sanders DO Emergency Provider Active Start: January 19, 2025 End: January 24, 2025 Dr. Shorty Lea MD Admit Provider Active Sta rt: January 19, 2025 End: January 24, 2025 Dr. Shorty Lea MD Attending Provider Active Start: January 19, 2025 End: January 24, 2025 Team Status: Active Member Role Status Dates Dr. Emanuel Macedo MD Primary Care Provider Active Start: January 19, 2025 Dr. Milagro Sanders DO Emergency Provider Active Start: January 19, 2025 Dr. Shorty Lea MD Admit Provider Active Sta rt: January 19, 2025 Dr. Shorty Lea MD Attending Provider Active Start: January 19, 2025 Dr. Shorty Lea MD Other Provider Active Sta rt: January 19, 2025 Team Status: Active Member Role Status Dates Dr. Emanuel Macedo MD Primary Care Provider Active Start: January 20, 2025 Dr. Milagro Sanders DO Emergency Provider Active Start: January 20, 2025 Dr. Shorty Lea MD Admit Provider Active Sta rt: January 20, 2025 Dr. Shorty Lea MD Attending Provider Active Start: January 20, 2025 Dr. Shorty Lea MD Other Provider Active Sta rt: January 20, 2025 Team Status: Active Member Role Status Dates Dr. Emanuel Macedo MD Primary Care Provider Active Start: January 21, 2025 Dr. Milagro Sanders DO Emergency Provider Active Start: January 21, 2025 Dr. Shorty Lea MD Admit Provider Active Sta rt: January 21, 2025 Dr. Shorty Lea MD Attending Provider Active Start: January 21, 2025 Dr. Shorty Lea MD Other Provider Active Sta rt: January 21, 2025 Team Status: Active Member Role Status Dates Dr. Emanuel Macedo MD Primary Care Provider Active Start: January 22, 2025 Dr. Milagro Sanders DO Emergency Provider Active Start: January 22, 2025 Dr. Shorty Lea MD Admit Provider Active Sta rt: January 22, 2025 Dr. Shorty Lea MD Attending Provider Active Start: January 22, 2025 Dr. Shorty Lea MD Other Provider Active Sta rt: January 22, 2025 Team Status: Active Member Role Status Dates Dr. Emanuel Macedo MD Primary Care Provider Active Start: January 23, 2025 Dr. Milagro Sanders DO Emergency Provider Active Start: January 23, 2025 Dr. Shorty Lea MD Admit Provider Active Sta rt: January 23, 2025 Dr. Shorty Lea MD Attending Provider Active Start: January 23, 2025 Dr. Shorty Lea MD Other Provider Active Sta rt: January 23, 2025 Team Status: Active Member Role Status Dates Dr. Emanuel Macedo MD Primary Care Provider Active Start: January 24, 2025 Dr. Milagro Sanders DO Emergency Provider Active Start: January 24, 2025 Dr. Shorty Lea MD Admit Provider Active Sta rt: January 24, 2025 Dr. Shorty Lea MD Attending Provider Active Start: January 24, 2025 Dr. Shorty Lea MD Other Provider Active Sta rt: January 24, 2025 Team Status: Active Member Role Status Dates Dr. Emanuel Macedo MD Primary Care Provider Active Start: January 25, 2025 Dr. Michelle LANG MD Attending Provider Active Start: January 25, 2025 Team Status: Active Member Role Status Dates Dr. Emanuel Macedo MD Primary Care Provider Active Start: February 02, 2025 Dr. Michelle LANG MD Attending Provider Active Start: February 02, 2025 Team Status: Active Member Role Status Dates Dr. Emanuel Macedo MD Primary Care Provider Active Start: February 08, 2025 Shantell Hayes Attending Provider Active Start: February 08, 2025 Team Status: Active Member Role Status Dates Dr. Emanuel Macedo MD Primary Care Provider Active Start: February 09, 2025 Dr. Michelle LANG MD Attending Provider Active Start: February 09, 2025 Team Status: Inactive Member Role Status Dates Dr. Emanuel Macedo MD Primary Care Provider Active Start: February 10, 2025 End: February 10, 2025 Dr. Emanuel Macedo MD Referring Provider Active Start: February 10, 2025 End: February 10, 2025 Dr. Myrtle Christiansen MD Attending Provider Active Start: February 10, 2025 End: February 10, 2025 Goals (unrecognized section and content) Goals may be documented in a n alternate section Source Comments (unrecognize d section and content) In the event this informatio n is protected by the Federal Confidentiality of Alcohol and Drug Abuse Patient Records regulations: The Federal rules restrict any use of the information to criminally investigate or prosecute any alcohol or drug abuse patient.[facility] FOR RECORDS PERTAINING TO PATIENTS WHO ARE OR HAVE BEEN ENROLLED IN A CHEMICAL DEPENDENCY/SUBSTANCEABUSE PROGRAM, SOME INFORMATION MAY BE OMITTED. This clinical summary was aggregated from multiple sources. Caution should be exercised in using it in the provision of clinical care. This summary normalizes information from multiple sources, and as a consequence, information in this document may materially change the coding, format and clinical context of patient data. In addition, data may be omitted in some cases. CLINICAL DECISIONS SHOULD BE BASED ON THE PRIMARY CLINICAL RECORDS. [employer] [facility]. provides no warranty or guarantee of the accuracy or completeness of information in this document.
--- OUTSIDE RECORDS SUMMARY | 2025-02-16 07:01 | XMS RPT_ITS | CCD ---
Author Organization [facility] Care Team Providers Care Target Network Analyst Name Role Phone WENDI Soria CNP, SOFIA Knight Primary Care Phys ician Wendi BUSINESS DATA ANALYST, BUSINESS DATA ANALYST-C Sofia Hernández Primary Care Pr ovider Dr. Tamir Allan Emergency Provider Dr. Patrice Watkins Admit Provider Dr. Patrice Watkins Attending Provider Dr. Patrice Watkins Other Provider Dr. Patrice Watkins Referring Provider Dr. Amaris Marks Attending Provider Dr. Amaris Marks Other Provider Dr. Obie Funk Other Provider Dr. Shorty Lea Attending Provider [phone] Dr. Shorty Lea Other Provider OBIE FUNK MD Attending Unavailable WENDI PLATT - UNIX ANALYST, SOFIA Knight Primary Care U ERNESTO Soares DO Attending Unavailable WENDIPILY PLATT - UNIX ANALYST, SOFIA Knight Primary Care U OBIE Valdez MD Attending Unavailable WENDI PLATT - UNIX ANALYST, SOFIA Knight Primary Care U SERGIO Mcrae MD Attending Unavailable WENDI PLATT - UNIX ANALYST, SOFIA Knight Primary Care U lily ADAME APRN - [place], SOFIA Knight Primary Care U SERGIO Mcrae MD Attending Unavailable Unavailable Primary Care Provider Unavailangel Macedo MD, Dr. Emanuel Chi Primary Care Provider [phone] Rolando MONTERO, Dr. Ragland Attending Provider Marilyn [...] Primary Care Unavailable Shantell Hayes Attending Unavailable Rem[place], Emanuel Chi Primary Care [...] tablet (4 sources) Opioid Agonist Start: 05-13-2023 [place] 325- 5 mg oral tablet Dose = 1 tab(s), Oral, q4h, PRN Pain, scale 4-6, 0 Refill(s), 76 Start Date: 05/13/23 Status: Ordered Start: 05-12-2023 End: 05-19-2023 take 1 tablet by mouth every six hours as needed for pain [place] 325- 5 mg oral tablet Dose = 1 tab(s), Oral, q6h, PRN for pain, X 7 day(s), # 28 tab(s), 0 Refill(s), Pharmacy: [id number], Cervical spondylosis, 175, cm, 05/12/23 10:16:00 [...] oral solution (1 source) alpha-Adrenergic Agonist, Uncompetitive K-kvzsnj-T-asparta te Receptor Antagonist, Sigma-1 Agonist Start: 10-15-2019 [...] 20, 2023 1:00am April 21, 2024 12:39pm Zjnk-zln-zpiyxur. 1000 mg every 8 hourly for 1 week and then as needed for 6 moderate to severe pain. Start: 08-20-2023 Acetaminophen Active 1000 MG PO EVERY 8 HOURS 0 August 20, 2023 12:00am Uksp-qnq-tjyxlpe. 1000 mg every 8 hourly for 1 [...] 12:39pm docusate sodium 50 mg / sennosides, nursing home 8.6 mg oral tablet (3 sources) Start: 08-20-2023 End: 04-21-2024 Sennosides-Docusate Sodium (Stool Softener-Stimulant Laxat) 8.6-50 mg Tablet Discontinued 2 {tbl} PO TWICE A DAY August 20, 2023 1:00am April 21, 2024 12:39pm Yykp-vqb-heoecij. Labetalol (1 source) beta-Adrenergic Nikki Start: 05-12-2023 [...] mg for severe pain. polyethylene glycol 3350 31210 mg powder for oral solution (3 sources) [...] resolved with abstinence while residing in a assisted facility for rehab. Deficiency and other anemia [...] Visit Reporton 01-14 Oncology Visit Report Normal [facility] Absolute lymphocyte countOrd ered By: Michelle Loco on 02-09-2025 Lymphocytes Auto (Unsp spec) [#/Vol] 1.18 10*3/uL 0.83-4.51 [facility] Absolute neutrophil countOrd ered By: Michelle Loco on 02-09-2025 Neutrophils (Bld) [#/Vol] 2.6 10*3/uL 2.0-7.7 [facility] Anion gap in Serum or Plasma Ordered By: Michellekiara Loco on 02-09-2025 Anion gap [Moles/Vol] 10 mmol/L 01-27 [facility] Automated lymphocyte count a s percentage of total leukocytesOrdered By: Michelle Loco on 02-09-2025 Lymphocytes/100 WBC Auto (Unsp spec) 26.9 % [facility] BUN/creatinine ratioOrdered By: Michelle Loco on 02-09-2025 Urea nitrogen/Creatinine [Mass ratio] 17.8 mg/mg - [facility] Basic Metabolic Profile (BMP )on 02-09-2025 BUN/CRE 17.8 RATIO Normal 07-04 [facility] Comment on above: Order Comment: 212 Performed By: #### L 500.2500, L100.0100, L501.2300, L501.5200 ####[facility] [address] [place], [address] Calcium [Mass/Vol] 8.8 mg/dL Normal 7.6-11.0 [facility] Comment on above: Order Comment: 212 Performed By: #### L 500.2500, L100.0100, L501.2300, L501.5200 ####[facility] [address] [place], [address] Chloride [Moles/Vol] 102 mmol/L Normal 98-108 [facility] Comment on above: Order Comment: 212 Performed By: #### L 500.2500, L100.0100, L501.2300, L501.5200 ####[facility] [address] [place], [address] CO2 [Moles/Vol] 21.6 mmol/L Normal 21.0-32.0 [facility] Comment on above: Order Comment: 212 Performed By: #### L 500.2500, L100.0100, L501.2300, L501.5200 ####[facility] [address] [place], [address] Creatinine [Mass/Vol] 1.30 mg/dL High 0.70-1.20 [facility] Comment on above: Order Comment: 212 Performed By: #### L 500.2500, L100.0100, L501.2300, L501.5200 ####[facility] [address] [place], [address] GAP 10 Normal 5-15 [facility] Comment on above: Order Comment: 212 Performed By: #### L 500.2500, L100.0100, L501.2300, L501.5200 ####[facility] [address] [place], [address] GFR/1.73 sq M.predicted among non-blacks MDRD (S/P/Bld) [Vol rate/Area] 62 mL/min/{1.73_m2} Normal >60 [facility] Comment on above: Order Comment: 212 Result Comment: mL/m in/1.73m2 CKD-EPI Creatinine Equation (2020) Performed By: #### L 500.2500, L100.0100, L501.2300, L501.5200 ####[facility] [address] [place], [address] Glucose [Mass/Vol] 120 mg/dL High 70-99 [facility] Comment on above: Order Comment: 212 Performed By: #### L 500.2500, L100.0100, L501.2300, L501.5200 ####[facility] [address] [place], [address] Potassium [Moles/Vol] 4.7 mmol/L Normal 3.3-5.1 [facility] Comment on above: Order Comment: 212 Performed By: #### L 500.2500, L100.0100, L501.2300, L501.5200 ####[facility] [address] [place], [address] Sodium [Moles/Vol] 134 mmol/L Normal 133-145 [facility] Comment on above: Order Comment: 212 Performed By: #### L 500.2500, L100.0100, L501.2300, L501.5200 ####[facility] [address] [place], [address] Urea nitrogen [Mass/Vol] 23 mg/dL High 4-19 [facility] Comment on above: Order Comment: 212 Performed By: #### L 500.2500, L100.0100, L501.2300, L501.5200 ####[facility] [address] [place], [address] Basophil percentageOrdered B y: Michelle Loco on 02-09-2025 Basophils/100 WBC (Bld) 0.5 % 0-1 [facility] CBC W/Diff, Automatedon 01-14 Absolute Lymph 1.18 X10 3/uL Normal 0.83-4.51 [facility] Comment on above: Order Comment: 212 Performed By: #### L 500.2500, L100.0100, L501.2300, L501.5200 ####[facility] [address] [place], [address] Absolute Neut 2.6 X10 3/uL Normal 2.0-7.7 [facility] Comment on above: Order Comment: 212 Performed By: #### L 500.2500, L100.0100, L501.2300, L501.5200 ####[facility] [address] [place], [address] Basophils/100 WBC (Bld) 0.5 % Normal 0-1 [facility] Comment on above: Order Comment: 212 Performed By: #### L 500.2500, L100.0100, L501.2300, L501.5200 ####[facility] [address] [place], [address] Eosinophils/100 WBC (Bld) 3.2 % Normal 0-5 [facility] Comment on above: Order Comment: 212 Performed By: #### L 500.2500, L100.0100, L501.2300, L501.5200 ####[facility] [address] [place], [address] Erythrocyte distribution width (RBC) [Ratio] 16.7 % High 11.6-14.6 [facility] Comment on above: Order Comment: 212 Performed By: #### L 500.2500, L100.0100, L501.2300, L501.5200 ####[facility] [address] [place], [address] Hematocrit (Bld) [Volume fraction] 23.8 % Low 40-54 [facility] Comment on above: Order Comment: 212 Performed By: #### L 500.2500, L100.0100, L501.2300, L501.5200 ####[facility] [address] [place], [address] Hemoglobin (Bld) [Mass/Vol] 7.8 g/dL Low 13.0-16.5 [facility] Comment on above: Order Comment: 212 Performed By: #### L 500.2500, L100.0100, L501.2300, L501.5200 ####[facility] [address] [place], [address] IG% 1.400 High 0.0-0.9 [facility] Comment on above: Order Comment: 212 Result Comment: IG% - Immature Granulocytes (promyelocytes, myelocytes andmetamyelocytes) > 1% indicates that a LEFT SHIFT is Present. Performed By: #### L 500.2500, L100.0100, L501.2300, L501.5200 ####[facility] [address] [place], [address] Lymphocytes/100 WBC (Bld) 26.9 % Normal 19-41 [facility] Comment on above: Order Comment: 212 Performed By: #### L 500.2500, L100.0100, L501.2300, L501.5200 ####[facility] [address] [place], [address] MCH (RBC) [Entitic mass] 31.8 pg Normal 27.0-32.0 [facility] Comment on above: Order Comment: 212 Performed By: #### L 500.2500, L100.0100, L501.2300, L501.5200 ####[facility] [address] [place], [address] MCHC (RBC) [Mass/Vol] 32.8 g/dL Normal 32-36 [facility] Comment on above: Order Comment: 212 Performed By: #### L 500.2500, L100.0100, L501.2300, L501.5200 ####[facility] [address] [place], [address] MCV (RBC) [Entitic vol] 97.1 fL High 80-94 [facility] Comment on above: Order Comment: 212 Performed By: #### L 500.2500, L100.0100, L501.2300, L501.5200 ####[facility] [address] [place], [address] Monocytes/100 WBC (Bld) 9.1 % Normal 0-[address] [facility] Comment on above: Order Comment: 212 Performed By: #### L 500.2500, L100.0100, L501.2300, L501.5200 ####[facility] [address] [place], [address] Neutrophils/100 WBC (Bld) 58.9 % Normal 47-70 [facility] Comment on above: Order Comment: 212 Performed By: #### L 500.2500, L100.0100, L501.2300, L501.5200 ####[facility] [address] [place], [address] Nucleated RBC (Bld) [#/Vol] 0 10*3/uL Normal 0-5 [facility] Comment on above: Order Comment: 212 Performed By: #### L 500.2500, L100.0100, L501.2300, L501.5200 ####[facility] [address] [place], [address] Platelet mean volume (Bld) [Entitic vol] 9.9 fL Normal 6.2-12.0 [facility] Comment on above: Order Comment: 212 Performed By: #### L 500.2500, L100.0100, L501.2300, L501.5200 ####[facility] [address] [place], [address] Platelets (Bld) [#/Vol] 163 10*3/uL Normal 150-450 [facility] Comment on above: Order Comment: 212 Performed By: #### L 500.2500, L100.0100, L501.2300, L501.5200 ####[facility] [address] [place], [address] RBC (Bld) [#/Vol] 2.45 10*6/uL Low 4.6-6.2 [facility] Comment on above: Order Comment: 212 Performed By: #### L 500.2500, L100.0100, L501.2300, L501.5200 ####[facility] [address] [place], [address] RDW SD 59.5 fl High 35.1-43.9 [facility] Comment on above: Order Comment: 212 Performed By: #### L 500.2500, L100.0100, L501.2300, L501.5200 ####[facility] [address] [place], [address] WBC (Bld) [#/Vol] 4.4 10*3/uL Normal 4.4-11.0 [facility] Comment on above: Order Comment: 212 Performed By: #### L 500.2500, L100.0100, L501.2300, L501.5200 ####[facility] [address] [place], [address] Carbon dioxide, total [Moles /volume] in Central venous bloodOrdered By: Michelle Loco on 02-09-2025 CO2 [Moles/Vol] 21.6 mmol/L 21.0-32.0 [facility] Chloride assayOrdered By: Liborio Loco on 02-09-2025 Chloride [Moles/Vol] 102 mmol/L 98-108 [facility] Eosinophil percentageOrdered By: Michelle Loco on 02-09-2025 Eosinophils/100 WBC (Bld) 3.2 % 0-5 [facility] Erythrocyte distribution wid th ratioOrdered By: Michelle Loco on 02-09-2025 Erythrocyte distribution width (RBC) [Ratio] 16.7 % High 11.6-14.6 [facility] Erythrocyte distribution wid th standard deviationOrdered By: Michelle Loco on 02-09-2025 Erythrocyte distribution width (RBC) [Ratio] 59.5 fl High 35.1-43.9 [facility] Glomerular filtration rate ( GFR) estimation/1.73 sq m using serum, plasma, or whole bOrdered By: Michelle Looc on 02-09-2025 GFR/1.73 sq M.predicted among non-blacks MDRD (S/P/Bld) [Vol rate/Area] 62 mL/min/{1.73_m2} >60 [facility] Comment on above: mL/min/1.73m2 CKD-EP I Creatinine Equation (2020) Hematocrit Auto (Bld) [Volum e fraction]Ordered By: Micehlle Loco on 02-09-2025 Hematocrit (Bld) [Volume fraction] 23.8 % Low 40-54 [facility] Hemoglobin measurementOrdere d By: Michelle Loco on 02-09-2025 Hemoglobin (Bld) [Mass/Vol] 7.8 g/dL Low 13.0-16.5 [facility] Immature granulocytes/100 WB C Auto (Bld)Ordered By: Michelle Loco on 02-09-2025 Immature granulocytes/100 WBC (Bld) 1.400 % High 0.0-0.9 [facility] Comment on above: IG% - Immature Granu locytes (promyelocytes, myelocytes and metamyelocytes) > 1% indicates that a LEFT SHIFT is Present. MCV (mean corpuscular volume ) determinationOrdered By: Michelle Loco on 02-09-2025 MCV (RBC) [Entitic vol] 97.1 fL High 80-94 [facility] Magnesiumon 02-09-2025 Magnesium [Mass/Vol] 1.7 mg/dL Normal 1.5-2.2 [facility] Comment on above: Order Comment: 212 Performed By: #### L 500.2500, L100.0100, L501.2300, L501.5200 ####[facility] [address] [place], [address] Magnesium measurement (mass/ volume)Ordered By: Michelle Loco on 02-09-2025 Magnesium (Unsp spec) [Mass/Vol] 1.7 mg/dL 1.5-2.2 [facility] Mean corpuscular hemoglobin (MCH) determinationOrdered By: Michelle Loco on 02-09-2025 MCH (RBC) [Entitic mass] 31.8 pg 27.0-32.0 [facility] Mean corpuscular hemoglobin concentration (MCHC) determinationOrdered By: Michelle Loco on 02-09-2025 MCHC (RBC) [Mass/Vol] 32.8 g/dL 32-36 [facility] Mean platelet volume determi nationOrdered By: Michelle Loco on 02-09-2025 Platelet mean volume (Bld) [Entitic vol] 9.9 fL 6.2-12.0 [facility] Monocyte percentageOrdered B y: Michelle Loco on 02-09-2025 Monocytes/100 WBC (Bld) 9.1 % 0-10 [facility] Neutrophil percentageOrdered By: Michelle Loco on 02-09-2025 Neutrophils/100 WBC (Bld) 58.9 % 47-70 [facility] Nucleated red blood cell per centageOrdered By: Michelle Loco on 02-09-2025 Nucleated RBC/100 WBC (Bld) [Ratio] 0 % 0-5 [facility] Phosphoruson 02-09-2025 Phosphate [Mass/Vol] 5.6 mg/dL High 2.7-4.5 [facility] Comment on above: Order Comment: 212 Performed By: #### L 500.2500, L100.0100, L501.2300, L501.5200 ####[facility] [address] [place], [address] Platelet countOrdered By: Liborio Loco on 02-09-2025 Platelets (Bld) [#/Vol] 163 10*3/uL 150-450 [facility] Potassium measurement (mass/ volume)Ordered By: Michelle Loco on 02-09-2025 Potassium (Unsp spec) [Mass/Vol] 4.7 mmol/L 3.3-5.1 [facility] RBC Auto (Bld) [#/Vol]Ordere d By: Michelle Loco on 02-09-2025 RBC (Bld) [#/Vol] 2.45 10*6/uL Low 4.6-6.2 [facility] Serum creatinine measurement (mass/volume)Ordered By: Michelle Loco on 02-09-2025 Creatinine [Mass/Vol] 1.30 mg/dL High 0.70-1.20 [facility] Serum glucose measurement (m ass/volume)Ordered By: Michelle Loco on 02-09-2025 Glucose [Mass/Vol] 120 mg/dL High 70-99 [facility] Serum or plasma calcium ed urement (mass/volume)Ordered By: Michellekiara Loco on 02-09-2025 Calcium [Mass/Vol] 8.8 mg/dL 7.6-11.0 [facility] Serum or plasma urea nitroge n measurement (mass/volume)Ordered By: Michelle Loco on 02-09-2025 Urea nitrogen [Mass/Vol] 23 mg/dL High 4-19 [facility] Sodium levelOrdered By: Malinda Loco on 02-09-2025 Sodium [Moles/Vol] 134 mmol/L 133-145 [facility] White blood cell (WBC) count Ordered By: Michelle Loco on 02-09-2025 WBC (Bld) [#/Vol] 4.4 10*3/uL 4.4-11.0 [facility] CBC W/Diff, Automatedon 01-14 PATH REV Reviewed Normal [facility] Comment on above: Order Comment: CRITI MODESTO VALUE CALLED TO ABIODUN01/22/25 0739 Evangelina Ayon.RESULTS READ BACK BY SAME. Result Comment: SEE REPORT IN PATIENT'S EMR AMENDED REPORT 02/03/25 1545 PATH REV previously reported as: January frandy Performed By: #### L 500.4050, L100.0100 ####[facility] [address] [place], [address] Absolute lymphocyte countOrd ered By: Michelle Loco on 02-02-2025 Lymphocytes Auto (Unsp spec) [#/Vol] 1.01 10*3/uL 0.83-4.51 [facility] Absolute neutrophil countOrd ered By: Michelle Loco on 02-02-2025 Neutrophils (Bld) [#/Vol] 2.8 10*3/uL 2.0-7.7 [facility] Anion gap in Serum or Plasma Ordered By: Michelle Loco on 02-02-2025 Anion gap [Moles/Vol] 11 mmol/L 5- [facility] Automated lymphocyte count a s percentage of total leukocytesOrdered By: Michelle Loco on 02-02-2025 Lymphocytes/100 WBC Auto (Unsp spec) 23.0 % [facility] BUN/creatinine ratioOrdered By: Michelle Loco on 02-02-2025 Urea nitrogen/Creatinine [Mass ratio] 12.1 mg/mg - [facility] Basic Metabolic Profile (BMP )on 02-02-2025 BUN/CRE 12.1 RATIO Normal - [facility] Comment on above: Order Comment: 212 Performed By: #### L 501.2300, L501.5200, L500.2500, L100.0100 ####[facility] [address] [place], [address] Calcium [Mass/Vol] 8.7 mg/dL Normal 7.6-11.0 [facility] Comment on above: Order Comment: 212 Performed By: #### L 501.2300, L501.5200, L500.2500, L100.0100 ####[facility] [address] [place], [address] Chloride [Moles/Vol] 107 mmol/L Normal 98-108 [facility] Comment on above: Order Comment: 212 Performed By: #### L 501.2300, L501.5200, L500.2500, L100.0100 ####[facility] [address] [place], [address] CO2 [Moles/Vol] 18.1 mmol/L Low 21.0-32.0 [facility] Comment on above: Order Comment: 212 Performed By: #### L 501.2300, L501.5200, L500.2500, L100.0100 ####[facility] [address] [place], [address] Creatinine [Mass/Vol] 1.03 mg/dL Normal 0.70-1.20 [facility] Comment on above: Order Comment: 212 Performed By: #### L 501.2300, L501.5200, L500.2500, L100.0100 ####[facility] [address] [place], [address] GAP 11 Normal 5-15 [facility] Comment on above: Order Comment: 212 Performed By: #### L 501.2300, L501.5200, L500.2500, L100.0100 ####[facility] [address] [place], [address] GFR/1.73 sq M.predicted among non-blacks MDRD (S/P/Bld) [Vol rate/Area] 82 mL/min/{1.73_m2} Normal >60 [facility] Comment on above: Order Comment: 212 Result Comment: mL/m in/1.73m2 CKD-EPI Creatinine Equation (2020) Performed By: #### L 501.2300, L501.5200, L500.2500, L100.0100 ####[facility] [address] [place], [address] Glucose [Mass/Vol] 104 mg/dL High 70-99 [facility] Comment on above: Order Comment: 212 Performed By: #### L 501.2300, L501.5200, L500.2500, L100.0100 ####[facility] [address] [place], [address] Potassium [Moles/Vol] 4.2 mmol/L Normal 3.3-5.1 [facility] Comment on above: Order Comment: 212 Performed By: #### L 501.2300, L501.5200, L500.2500, L100.0100 ####[facility] [address] [place], [address] Sodium [Moles/Vol] 136 mmol/L Normal 133-145 [facility] Comment on above: Order Comment: 212 Performed By: #### L 501.2300, L501.5200, L500.2500, L100.0100 ####[facility] [address] [place], [address] Urea nitrogen [Mass/Vol] 13 mg/dL Normal 4-19 [facility] Comment on above: Order Comment: 212 Performed By: #### L 501.2300, L501.5200, L500.2500, L100.0100 ####[facility] [address] [place], [address] Basophil percentageOrdered B y: Michelle Loco on 02-02-2025 Basophils/100 WBC (Bld) 0.9 % 0-1 [facility] CBC W/Diff, Automatedon 01-14 Absolute Lymph 1.01 X10 3/uL Normal 0.83-4.51 [facility] Comment on above: Order Comment: 212 Performed By: #### L 501.2300, L501.5200, L500.2500, L100.0100 ####[facility] [address] [place], [address] Absolute Neut 2.8 X10 3/uL Normal 2.0-7.7 [facility] Comment on above: Order Comment: 212 Performed By: #### L 501.2300, L501.5200, L500.2500, L100.0100 ####[facility] [address] [place], [address] Basophils/100 WBC (Bld) 0.9 % Normal 0-1 [facility] Comment on above: Order Comment: 212 Performed By: #### L 501.2300, L501.5200, L500.2500, L100.0100 ####[facility] [address] [place], [address] Eosinophils/100 WBC (Bld) 2.3 % Normal 0-5 [facility] Comment on above: Order Comment: 212 Performed By: #### L 501.2300, L501.5200, L500.2500, L100.0100 ####[facility] [address] [place], [address] Erythrocyte distribution width (RBC) [Ratio] 17.2 % High 11.6-14.6 [facility] Comment on above: Order Comment: 212 Performed By: #### L 501.2300, L501.5200, L500.2500, L100.0100 ####[facility] [address] [place], [address] Hematocrit (Bld) [Volume fraction] 25.4 % Low 40-54 [facility] Comment on above: Order Comment: 212 Performed By: #### L 501.2300, L501.5200, L500.2500, L100.0100 ####[facility] [address] [place], [address] Hemoglobin (Bld) [Mass/Vol] 8.5 g/dL Low 13.0-16.5 [facility] Comment on above: Order Comment: 212 Performed By: #### L 501.2300, L501.5200, L500.2500, L100.0100 ####[facility] [address] [place], [address] IG% 1.100 High 0.0-0.9 [facility] Comment on above: Order Comment: 212 Result Comment: IG% - Immature Granulocytes (promyelocytes, myelocytes andmetamyelocytes) > 1% indicates that a LEFT SHIFT is Present. Performed By: #### L 501.2300, L501.5200, L500.2500, L100.0100 ####[facility] [address] [place], [address] Lymphocytes/100 WBC (Bld) 23.0 % Normal 19-41 [facility] Comment on above: Order Comment: 212 Performed By: #### L 501.2300, L501.5200, L500.2500, L100.0100 ####[facility] [address] [place], [address] MCH (RBC) [Entitic mass] 32.2 pg High 27.0-32.0 [facility] Comment on above: Order Comment: 212 Performed By: #### L 501.2300, L501.5200, L500.2500, L100.0100 ####[facility] [address] [place], [address] MCHC (RBC) [Mass/Vol] 33.5 g/dL Normal 32-36 [facility] Comment on above: Order Comment: 212 Performed By: #### L 501.2300, L501.5200, L500.2500, L100.0100 ####[facility] [address] [place], [address] MCV (RBC) [Entitic vol] 96.2 fL High 80-[address] [facility] Comment on above: Order Comment: 212 Performed By: #### L 501.2300, L501.5200, L500.2500, L100.0100 ####[facility] [address] [place], [address] Monocytes/100 WBC (Bld) 8.9 % Normal 0-[address] [facility] Comment on above: Order Comment: 212 Performed By: #### L 501.2300, L501.5200, L500.2500, L100.0100 ####[facility] [address] [place], [address] Neutrophils/100 WBC (Bld) 63.8 % Normal 47-70 [facility] Comment on above: Order Comment: 212 Performed By: #### L 501.2300, L501.5200, L500.2500, L100.0100 ####[facility] [address] [place], [address] Nucleated RBC (Bld) [#/Vol] 0 10*3/uL Normal 0-5 [facility] Comment on above: Order Comment: 212 Performed By: #### L 501.2300, L501.5200, L500.2500, L100.0100 ####[facility] [address] [place], [address] Platelet mean volume (Bld) [Entitic vol] 9.6 fL Normal 6.2-12.0 [facility] [facility] Comment on above: Order Comment: 212 Performed By: #### L 501.2300, L501.5200, L500.2500, L100.0100 ####[facility] [address] [place], [address] Platelets (Bld) [#/Vol] 242 10*3/uL Normal 150-450 [facility] Comment on above: Order Comment: 212 Performed By: #### L 501.2300, L501.5200, L500.2500, L100.0100 ####[facility] [address] [place], [address] RBC (Bld) [#/Vol] 2.64 10*6/uL Low 4.6-6.2 [facility] Comment on above: Order Comment: 212 Performed By: #### L 501.2300, L501.5200, L500.2500, L100.0100 ####[facility] [address] [place], [address] RDW SD 60.9 fl High 35.1-43.9 [facility] Comment on above: Order Comment: 212 Performed By: #### L 501.2300, L501.5200, L500.2500, L100.0100 ####[facility] [address] [place], [address] WBC (Bld) [#/Vol] 4.4 10*3/uL Normal 4.4-11.0 [facility] Comment on above: Order Comment: 212 Performed By: #### L 501.8770, L501.5200, L500.2500, L100.0100 ####[facility] [address] [place], [address] Carbon dioxide, total [Moles /volume] in Central venous bloodOrdered By: Michelel Loco on 02-02-2025 CO2 [Moles/Vol] 18.1 mmol/L Low 21.0-32.0 [facility] Chloride assayOrdered By: Liborio Loco on 02-02-2025 Chloride [Moles/Vol] 107 mmol/L 98-108 [facility] Eosinophil percentageOrdered By: Michelle Loco on 02-02-2025 Eosinophils/100 WBC (Bld) 2.3 % 0-5 [facility] Erythrocyte distribution wid th ratioOrdered By: Michelle Loco on 02-02-2025 Erythrocyte distribution width (RBC) [Ratio] 17.2 % High 11.6-14.6 [facility] Erythrocyte distribution wid th standard deviationOrdered By: Michellekiara Loco on 02-02-2025 Erythrocyte distribution width (RBC) [Ratio] 60.9 fl High 35.1-43.9 [facility] Glomerular filtration rate ( GFR) estimation/1.73 sq m using serum, plasma, or whole bOrdered By: Michelle Loco on 02-02-2025 GFR/1.73 sq M.predicted among non-blacks MDRD (S/P/Bld) [Vol rate/Area] 82 mL/min/{1.73_m2} >60 [facility] Comment on above: mL/min/1.73m2 CKD-EP I Creatinine Equation (2020) Hematocrit Auto (Bld) [Volum e fraction]Ordered By: Michelle Loco on 02-02-2025 Hematocrit (Bld) [Volume fraction] 25.4 % Low 40-54 [facility] Hemoglobin measurementOrdere d By: Michelle Loco on 02-02-2025 Hemoglobin (Bld) [Mass/Vol] 8.5 g/dL Low 13.0-16.5 [facility] Immature granulocytes/100 WB C Auto (Bld)Ordered By: Michelle Loco on 02-02-2025 Immature granulocytes/100 WBC (Bld) 1.100 % High 0.0-0.9 [facility] Comment on above: IG% - Immature Granu locytes (promyelocytes, myelocytes and metamyelocytes) > 1% indicates that a LEFT SHIFT is Present. MCV (mean corpuscular volume ) determinationOrdered By: Michelle Loco on 02-02-2025 MCV (RBC) [Entitic vol] 96.2 fL High 80-94 [facility] Magnesiumon 02-02-2025 Magnesium [Mass/Vol] 1.4 mg/dL Low 1.5-2.2 [facility] Comment on above: Order Comment: 212 Performed By: #### L 501.2300, L501.5200, L500.2500, L100.0100 ####[facility] [address] [place], [address] Magnesium measurement (mass/ volume)Ordered By: Michelle Loco on 02-02-2025 Magnesium (Unsp spec) [Mass/Vol] 1.4 mg/dL Low 1.5-2.2 [facility] Mean corpuscular hemoglobin (MCH) determinationOrdered By: Michelle Loco on 02-02-2025 MCH (RBC) [Entitic mass] 32.2 pg High 27.0-32.0 [facility] Mean corpuscular hemoglobin concentration (MCHC) determinationOrdered By: Michelle Loco on 02-02-2025 MCHC (RBC) [Mass/Vol] 33.5 g/dL 32-36 [facility] Mean platelet volume determi nationOrdered By: Michelle Loco on 02-02-2025 Platelet mean volume (Bld) [Entitic vol] 9.6 fL 6.2-12.0 [facility] Monocyte percentageOrdered B y: Michelle Loco on 02-02-2025 Monocytes/100 WBC (Bld) 8.9 % 0-10 [facility] Neutrophil percentageOrdered By: Michelle Loco on 02-02-2025 Neutrophils/100 WBC (Bld) 63.8 % 47-70 [facility] Nucleated red blood cell per centageOrdered By: Michelle Loco on 02-02-2025 Nucleated RBC/100 WBC (Bld) [Ratio] 0 % 0-5 [facility] Phosphoruson 02-02-2025 Phosphate [Mass/Vol] 4.7 mg/dL High 2.7-4.5 [facility] Comment on above: Order Comment: 212 Performed By: #### L 501.2300, L501.5200, L500.2500, L100.0100 ####[facility] [address] [place], [address] Platelet countOrdered By: Liborio Loco on 02-02-2025 Platelets (Bld) [#/Vol] 242 10*3/uL 150-450 [facility] Potassium measurement (mass/ volume)Ordered By: Michelle Loco on 02-02-2025 Potassium (Unsp spec) [Mass/Vol] 4.2 mmol/L 3.3-5.1 [facility] RBC Auto (Bld) [#/Vol]Ordere d By: Michelle Loco on 02-02-2025 RBC (Bld) [#/Vol] 2.64 10*6/uL Low 4.6-6.2 [facility] Serum creatinine measurement (mass/volume)Ordered By: Michelle Loco on 02-02-2025 Creatinine [Mass/Vol] 1.03 mg/dL 0.70-1.20 [facility] Serum glucose measurement (m ass/volume)Ordered By: Michelle Loco on 02-02-2025 Glucose [Mass/Vol] 104 mg/dL High 70-99 [facility] Serum or plasma calcium ed urement (mass/volume)Ordered By: Michelle Loco on 02-02-2025 Calcium [Mass/Vol] 8.7 mg/dL 7.6-11.0 [facility] Serum or plasma urea nitroge n measurement (mass/volume)Ordered By: Michelle Loco on 05-21-2025 Urea nitrogen [Mass/Vol] 13 mg/dL - [facility] Sodium levelOrdered By: Malinda Loco on 02-02-2025 Sodium [Moles/Vol] 136 mmol/L 133-145 [facility] White blood cell (WBC) count Ordered By: Michelle Loco on 02-02-2025 WBC (Bld) [#/Vol] 4.4 10*3/uL 4.4-11.0 [facility] Basic Metabolic Profile (BMP )on 01-26-2025 BUN Normal - [facility] Comment on above: Result Comment: Canc elled via OM: Order cancelled - Patient discharged Performed By: #### L 500.2500 ####[facility] [address] [place], [address] BUN/CRE Normal - [facility] Comment on above: Result Comment: Canc elled via OM: Order cancelled - Patient discharged Performed By: #### L 500.2500 ####[facility] [address] [place], [address] Calcium Normal 7.6-11.0 [facility] Comment on above: Result Comment: Canc elled via OM: Order cancelled - Patient discharged Performed By: #### L 500.2500 ####[facility] [address] [place], [address] CL Normal 98-108 [facility] Comment on above: Result Comment: Canc elled via OM: Order cancelled - Patient discharged Performed By: #### L 500.2500 ####[facility] [address] [place], [address] CO2 Normal 21.0-32.0 [facility] Comment on above: Result Comment: Canc elled via OM: Order cancelled - Patient discharged Performed By: #### L 500.2500 ####[facility] [address] [place], [address] CREAT,SERUM Normal 0.70-1.20 [facility] Comment on above: Result Comment: Canc elled via OM: Order cancelled - Patient discharged Performed By: #### L 500.2500 ####[facility] [address] [place], [address] eGFR Normal >60 [facility] Comment on above: Result Comment: Canc elled via OM: Order cancelled - Patient discharged Performed By: #### L 500.2500 ####[facility] [address] [place], [address] GAP Normal 5-15 [facility] Comment on above: Result Comment: Canc elled via OM: Order cancelled - Patient discharged Performed By: #### L 500.2500 ####[facility] [address] [place], [address] GLU Normal 70-99 [facility] Comment on above: Result Comment: Canc elled via OM: Order cancelled - Patient discharged Performed By: #### L 500.2500 ####[facility] [address] [place], [address] Potassium Normal 3.3-5.1 [facility] Comment on above: Result Comment: Canc elled via OM: Order cancelled - Patient discharged Performed By: #### L 500.2500 ####[facility] [address] [place], [address] Basic Metabolic Profile (BMP) Normal 133-145 [facility] Comment on above: Result Comment: Canc elled via OM: Order cancelled - Patient discharged Performed By: #### L 500.2500 ####[facility] [address] [place], [address] Anion gap in Serum or Plasma Ordered By: Michelle Loco on 01-25-2025 Anion gap [Moles/Vol] 10 mmol/L 5-15 [facility] BUN/creatinine ratioOrdered By: Michelle Loco on 01-25-2025 Urea nitrogen/Creatinine [Mass ratio] 18.2 mg/mg 10-20 [facility] Bilirubin, totalOrdered By: Michelle Loco on 01-25-2025 Bilirubin [Mass/Vol] 0.29 mg/dL 0.00-1.30 [facility] CBC-Complete Blood Cnt No Di ffon 01-25-2025 Erythrocyte distribution width (RBC) [Ratio] 17.5 % High 11.6-14.6 [facility] Comment on above: Order Comment: 212.1 Performed By: #### L 503.0106, L500.4100, L501.9520, L100.0500, L501.5200, L500.4050, L506.1001 ####[facility] [address] [place], [address] Hematocrit (Bld) [Volume fraction] 23.3 % Low 40-54 [facility] Comment on above: Order Comment: 212.1 Performed By: #### L 503.0106, L500.4100, L501.9520, L100.0500, L501.5200, L500.4050, L506.1001 ####[facility] [address] [place], [address] Hemoglobin (Bld) [Mass/Vol] 8.1 g/dL Low 13.0-16.5 [facility] Comment on above: Order Comment: 212.1 Performed By: #### L 503.0106, L500.4100, L501.9520, L100.0500, L501.5200, L500.4050, L506.1001 ####[facility] [address] [place], [address] MCH (RBC) [Entitic mass] 32.1 pg High 27.0-32.0 [facility] Comment on above: Order Comment: 212.1 Performed By: #### L 503.0106, L500.4100, L501.9520, L100.0500, L501.5200, L500.4050, L506.1001 ####[facility] [address] [place], [address] MCHC (RBC) [Mass/Vol] 34.8 g/dL Normal 32-36 [facility] Comment on above: Order Comment: 212.1 Performed By: #### L 503.0106, L500.4100, L501.9520, L100.0500, L501.5200, L500.4050, L506.1001 ####[facility] [address] [place], [address] MCV (RBC) [Entitic vol] 92.5 fL Normal 80-94 [facility] Comment on above: Order Comment: 212.1 Performed By: #### L 503.0106, L500.4100, L501.9520, L100.0500, L501.5200, L500.4050, L506.1001 ####[facility] [address] [place], [address] Platelet mean volume (Bld) [Entitic vol] 11.8 fL Normal 6.2-12.0 [facility] Comment on above: Order Comment: 212.1 Performed By: #### L 503.0106, L500.4100, L501.9520, L100.0500, L501.5200, L500.4050, L506.1001 ####[facility] [address] [place], [address] Platelets (Bld) [#/Vol] 54 10*3/uL Low 150-450 [facility] Comment on above: Order Comment: 212.1 Performed By: #### L 503.0106, L500.4100, L501.9520, L100.0500, L501.5200, L500.4050, L506.1001 ####[facility] [address] [place], [address] RBC (Bld) [#/Vol] 2.52 10*6/uL Low 4.6-6.2 [facility] Comment on above: Order Comment: 212.1 Performed By: #### L 503.0106, L500.4100, L501.9520, L100.0500, L501.5200, L500.4050, L506.1001 ####[facility] [address] [place], [address] RDW SD 59.5 fl High 35.1-43.9 [facility] Comment on above: Order Comment: 212.1 Performed By: #### L 503.0106, L500.4100, L501.9520, L100.0500, L501.5200, L500.4050, L506.1001 ####[facility] [address] [place], [address] WBC (Bld) [#/Vol] 5.3 10*3/uL Normal 4.4-11.0 [facility] Comment on above: Order Comment: 212.1 Performed By: #### L 503.0106, L500.4100, L501.9520, L100.0500, L501.5200, L500.4050, L506.1001 ####[facility] [address] [place], [address] Calculated very low density lipoprotein (VLDL) cholesterol measurementOrdered By: Michelle Loco on 01-25-2025 Calculated very low density lipoprotein (VLDL) cholesterol measurement 17 mg/dL 5-40 [facility] Carbon dioxide, total [Moles /volume] in Central venous bloodOrdered By: Michelle Loco on 01-25-2025 CO2 [Moles/Vol] 18.1 mmol/L Low 21.0-32.0 [facility] Chloride assayOrdered By: Liborio Loco on 01-25-2025 Chloride [Moles/Vol] 104 mmol/L 98-108 [facility] Comprehensive Metabolic Prof ilon 01-25-2025 Albumin [Mass/Vol] 3.1 g/dL Low 3.4-4.8 [facility] Comment on above: Order Comment: 212.1 Performed By: #### L 503.0106, L500.4100, L501.9520, L100.0500, L501.5200, L500.4050, L506.1001 ####[facility] [address] [place], [address] Albumin/Globulin [Mass ratio] 1.2 {ratio} Normal 0.9-2.4 [facility] Comment on above: Order Comment: 212.1 Performed By: #### L 503.0106, L500.4100, L501.9520, L100.0500, L501.5200, L500.4050, L506.1001 ####[facility] [address] [place], [address] ALK PHOS 73 U/L Normal 40-129 [facility] Comment on above: Order Comment: .1 Performed By: #### L 503.0106, L500.4100, L501.9520, L100.0500, L501.5200, L500.4050, L506.1001 ####[facility] [address] [place], [address] ALT [Catalytic activity/Vol] 59 U/L High <=46 [facility] Comment on above: Order Comment: 212.1 Performed By: #### L 503.0106, L500.4100, L501.9520, L100.0500, L501.5200, L500.4050, L506.1001 ####[facility] [address] [place], [address] AST [Catalytic activity/Vol] 87 U/L High <=37 [facility] Comment on above: Order Comment: 212.1 Performed By: #### L 503.0106, L500.4100, L501.9520, L100.0500, L501.5200, L500.4050, L506.1001 ####[facility] [address] [place], [address] Bilirubin [Mass/Vol] 0.29 mg/dL Normal 0.00-1.30 [facility] Comment on above: Order Comment: 212.1 Performed By: #### L 503.0106, L500.4100, L501.9520, L100.0500, L501.5200, L500.4050, L506.1001 ####[facility] [address] [place], [address] BUN/CRE 18.2 RATIO Normal 10-20 [facility] Comment on above: Order Comment: 212.1 Performed By: #### L 503.0106, L500.4100, L501.9520, L100.0500, L501.5200, L500.4050, L506.1001 ####[facility] [address] [place], [address] Calcium [Mass/Vol] 8.1 mg/dL Normal 7.6-11.0 [facility] Comment on above: Order Comment: 212.1 Performed By: #### L 503.0106, L500.4100, L501.9520, L100.0500, L501.5200, L500.4050, L506.1001 ####[facility] [address] [place], [address] Chloride [Moles/Vol] 104 mmol/L Normal 98-108 [facility] Comment on above: Order Comment: 212.1 Performed By: #### L 503.0106, L500.4100, L501.9520, L100.0500, L501.5200, L500.4050, L506.1001 ####[facility] [address] [place], [address] CO2 [Moles/Vol] 18.1 mmol/L Low 21.0-32.0 [facility] Comment on above: Order Comment: 212.1 Performed By: #### L 503.0106, L500.4100, L501.9520, L100.0500, L501.5200, L500.4050, L506.1001 ####[facility] [address] [place], [address] Creatinine [Mass/Vol] 1.03 mg/dL Normal 0.70-1.20 [facility] Comment on above: Order Comment: 212.1 Performed By: #### L 503.0106, L500.4100, L501.9520, L100.0500, L501.5200, L500.4050, L506.1001 ####[facility] [address] [place], [address] GAP 10 Normal 5-15 [facility] Comment on above: Order Comment: 212.1 Performed By: #### L 503.0106, L500.4100, L501.9520, L100.0500, L501.5200, L500.4050, L506.1001 ####[facility] [address] [place], [address] GFR/1.73 sq M.predicted among non-blacks MDRD (S/P/Bld) [Vol rate/Area] 82 mL/min/{1.73_m2} Normal >60 [facility] Comment on above: Order Comment: 212.1 Result Comment: mL/m in/1.73m2 CKD-EPI Creatinine Equation (2020) Performed By: #### L 503.0106, L500.4100, L501.9520, L100.0500, L501.5200, L500.4050, L506.1001 ####[facility] [address] [place], [address] Globulin (S) [Mass/Vol] 2.7 g/dL Normal 2.2-4.[address] [facility] Comment on above: Order Comment: 212.1 Performed By: #### L 503.0106, L500.4100, L501.9520, L100.0500, L501.5200, L500.4050, L506.1001 ####[facility] [address] [place], [address] Glucose [Mass/Vol] 115 mg/dL High 70-99 [facility] Comment on above: Order Comment: 212.1 Performed By: #### L 503.0106, L500.4100, L501.9520, L100.0500, L501.5200, L500.4050, L506.1001 ####[facility] [address] [place], [address] Potassium [Moles/Vol] 3.5 mmol/L Normal 3.3-5.1 [facility] Comment on above: Order Comment: 212.1 Performed By: #### L 503.0106, L500.4100, L501.9520, L100.0500, L501.5200, L500.4050, L506.1001 ####[facility] [address] [place], [address] Sodium [Moles/Vol] 132 mmol/L Low 133-145 [facility] Comment on above: Order Comment: 212.1 Performed By: #### L 503.0106, L500.4100, L501.9520, L100.0500, L501.5200, L500.4050, L506.1001 ####[facility] [address] [place], [address] T PROT 5.8 g/dL Low 5.9-8.4 [facility] Comment on above: Order Comment: 212.1 Performed By: #### L 503.0106, L500.4100, L501.9520, L100.0500, L501.5200, L500.4050, L506.1001 ####[facility] [address] [place], [address] Urea nitrogen [Mass/Vol] 19 mg/dL Normal 4-19 [facility] Comment on above: Order Comment: 212.1 Performed By: #### L 503.0106, L500.4100, L501.9520, L100.0500, L501.5200, L500.4050, L506.1001 ####[facility] [address] [place], [address] Erythrocyte distribution wid th ratioOrdered By: Michelle Loco on 01-25-2025 Erythrocyte distribution width (RBC) [Ratio] 17.5 % High 11.6-14.6 [facility] Erythrocyte distribution wid th standard deviationOrdered By: Michelle Loco on 01-25-2025 Erythrocyte distribution width (RBC) [Ratio] 59.5 fl High 35.1-43.9 [facility] Glomerular filtration rate ( GFR) estimation/1.73 sq m using serum, plasma, or whole bOrdered By: Michelle Loco on 01-25-2025 GFR/1.73 sq M.predicted among non-blacks MDRD (S/P/Bld) [Vol rate/Area] 82 mL/min/{1.73_m2} >60 [facility] Comment on above: mL/min/1.73m2 CKD-EP I Creatinine Equation (2020) Hematocrit Auto (Bld) [Volum e fraction]Ordered By: Michelle Loco on 01-25-2025 Hematocrit (Bld) [Volume fraction] 23.3 % Low 40-54 [facility] Hemoglobin measurementOrdere d By: Michelle Loco on 01-25-2025 Hemoglobin (Bld) [Mass/Vol] 8.1 g/dL Low 13.0-16.5 [facility] LDL calc ser/plasOrdered By: Michelle Loco on 01-25-2025 Cholesterol in LDL [Mass/Vol] 65 mg/dL [facility] Comment on above: Qyuuyxqfpn=932-687 m g/dL & Higher Kjnp=387 mg/dL or greater Laboratory - Chemistry and C hemistry - challengeOrdered By: Michelle Loco on 01-25-2025 AST [Catalytic activity/Vol] 87 U/L High <38 [facility] Lipid Profileon 01-25-2025 CHOL:HDL 2.89 Normal [facility] Comment on above: Order Comment: 212.1 Performed By: #### L 503.0106, L500.4100, L501.9520, L100.0500, L501.5200, L500.4050, L506.1001 ####[facility] [address] [place], [address] Cholesterol [Mass/Vol] 126 mg/dL Normal <=200 [facility] Comment on above: Order Comment: 212.1 Result Comment: Chol esterol level, Desirable <200 mg/dLBorderline high cholesterol 200-239 mg/dLHigh cholesterol >=240 mg/dLRecommendations of the NCEP Adult Treatment Panel for thefollowing risk-cutoff thresholds for the [place] [facility]. Performed By: #### L 503.0106, L500.4100, L501.9520, L100.0500, L501.5200, L500.4050, L506.1001 ####[facility] [address] [place], [address] Cholesterol in HDL [Mass/Vol] 44 mg/dL Normal [facility] Comment on above: Order Comment: 212.1 Result Comment: [place] onal Cholesterol Education Program (NCEP) guidelines:<40 mg/dL: Low HDL-cholesterol (major risk factor for CHD)>= 60 mg/dL: High HDL-cholesterol (negative risk factor forCHD)HDL-cholesterol is affected by a number of factors, e.g.smoking, exercise, hormones, sex and age. Performed By: #### L 503.0106, L500.4100, L501.9520, L100.0500, L501.5200, L500.4050, L506.1001 ####[facility] [address] [place], [address] Cholesterol in LDL [Mass/Vol] 65 mg/dL Normal [facility] Comment on above: Order Comment: 212.1 Result Comment: Bord byhvow=006-890 mg/dL Higher Gdlz=750 mg/dL or greater Performed By: #### L 503.0106, L500.4100, L501.9520, L100.0500, L501.5200, L500.4050, L506.1001 ####[facility] [address] [place], [address] Cholesterol in VLDL [Mass/Vol] 17 mg/dL Normal 5-40 [facility] Comment on above: Order Comment: .1 Performed By: #### L 503.0106, L500.4100, L501.9520, L100.0500, L501.5200, L500.4050, L506.1001 ####[facility] [address] [place], [address] Triglyceride [Mass/Vol] 86 mg/dL Normal [facility] Comment on above: Order Comment: 212.1 Result Comment: The drugs N-Acetylcysteine and Metamizole may falselydepress this assay.Normal range: <150 mg/dLBorderline High: 150-199 mg/dLHigh: 200-499 mg/dLVery High: >500 mg/dL Performed By: #### L 503.0106, L500.4100, L501.9520, L100.0500, L501.5200, L500.4050, L506.1001 ####[facility] [address] [place], [address] MCV (mean corpuscular volume ) determinationOrdered By: Michelle Loco on 01-25-2025 MCV (RBC) [Entitic vol] 92.5 fL 80-[address] [facility] Magnesiumon 01-25-2025 Magnesium [Mass/Vol] 1.2 mg/dL Low 1.5-2.2 [facility] Comment on above: Order Comment: .1 Performed By: #### L 503.0106, L500.4100, L501.9520, L100.0500, L501.5200, L500.4050, L506.1001 ####[facility] [address] [place], [address] Magnesium measurement (mass/ volume)Ordered By: Michelle Loco on 01-25-2025 Magnesium (Unsp spec) [Mass/Vol] 1.2 mg/dL Low 1.5-2.2 [facility] Mean corpuscular hemoglobin (MCH) determinationOrdered By: Michelle Loco on 01-25-2025 MCH (RBC) [Entitic mass] 32.1 pg High 27.0-32.0 [facility] Mean corpuscular hemoglobin concentration (MCHC) determinationOrdered By: Michelle Loco on 01-25-2025 MCHC (RBC) [Mass/Vol] 34.8 g/dL 32-36 [facility] Mean platelet volume determi nationOrdered By: Michelle Loco on 01-25-2025 Platelet mean volume (Bld) [Entitic vol] 11.8 fL 6.2-12.0 [facility] Platelet countOrdered By: Liborio Loco on 01-25-2025 Platelets (Bld) [#/Vol] 54 10*3/uL Low 150-450 [facility] Potassium measurement (mass/ volume)Ordered By: Michelle Loco on 01-25-2025 Potassium (Unsp spec) [Mass/Vol] 3.5 mmol/L 3.3-5.1 [facility] RBC Auto (Bld) [#/Vol]Ordere d By: Michelle Loco on 01-25-2025 RBC (Bld) [#/Vol] 2.52 10*6/uL Low 4.6-6.2 [facility] Screening total cholesterol/ high density lipoprotein (HDL) cholesterol ratioOrdered By: Michelle Loco on 01-25-2025 Cholesterol.total/Janie sterol in HDL [Mass ratio] 2.89 {ratio} [facility] Serum creatinine measurement (mass/volume)Ordered By: Michelle Loco on 01-25-2025 Creatinine [Mass/Vol] 1.03 mg/dL 0.70-1.20 [facility] Serum globulin measurementOr dered By: Michelle Loco on 01-25-2025 Globulin (S) [Mass/Vol] 2.7 g/dL 2.2-4.[address] [facility] Serum glucose measurement (m ass/volume)Ordered By: Michelle Loco on 01-25-2025 Glucose [Mass/Vol] 115 mg/dL High 70-99 [facility] Serum or plasma alanine gregory otransferase (ALT) measurementOrdered By: Michelle Loco on 01-25-2025 ALT [Catalytic activity/Vol] 59 U/L High <47 [facility] Serum or plasma albumin ed urement (mass/volume)Ordered By: Michelle Loco on 01-25-2025 Albumin [Mass/Vol] 3.1 g/dL Low 3.4-4.8 [facility] Serum or plasma albumin/glob ulin mass ratioOrdered By: Michelle Loco on 01-25-2025 Albumin/Globulin [Mass ratio] 1.2 {ratio} 0.9-2.4 [facility] [facility] Serum or plasma alkaline edwin sphatase measurementOrdered By: Michelle Loco on 01-25-2025 ALP [Catalytic activity/Vol] 73 U/L 40-129 [facility] Serum or plasma calcium ed urement (mass/volume)Ordered By: Michelle Loco on 01-25-2025 Calcium [Mass/Vol] 8.1 mg/dL 7.6-11.0 [facility] Serum or plasma cholesterol in HDL measurement (mass/volume)Ordered By: Michelle Loco on 01-25-2025 Cholesterol in HDL [Mass/Vol] 44 mg/dL >40 [facility] Comment on above: National Cholesterol Education Program (NCEP) guidelines:<40 mg/dL: Low HDL-cholesterol (major risk factor for CHD)>= 60 mg/dL: High HDL-cholesterol (negative risk factor for CHD)HDL-cholesterol is affected by a number of factors, e.g. smoking, exercise, hormones, sex and age. Serum or plasma cholesterol measurement (mass/volume)Ordered By: Michelle Loco on 01-25-2025 Cholesterol [Mass/Vol] 126 mg/dL <201 [facility] Comment on above: Cholesterol level, D esirable <200 mg/dLBorderline high cholesterol 200-239 mg/dLHigh cholesterol >=240 mg/dLRecommendations of the NCEP Adult Treatment Panel for the following risk-cutoff thresholds for the [place] population. Serum or plasma urea nitroge n measurement (mass/volume)Ordered By: Michelle Loco on 01-25-2025 Urea nitrogen [Mass/Vol] 19 mg/dL 4-19 [facility] Sodium levelOrdered By: Malinda Loco on 01-25-2025 Sodium [Moles/Vol] 132 mmol/L Low 133-145 [facility] TSH DL <= 0.005 mIU/L QnOrde red By: Michelle Lcoo on 01-25-2025 TSH Qn 3.080 uIU/mL 0.300-4.200 [facility] Thyroid Stim Hormone (TSH)on 01-25-2025 TSH 3.080 uIU/mL Normal 0.300-4.200 [facility] Comment on above: Order Comment: 212.1 Performed By: #### L 503.0106, L500.4100, L501.9520, L100.0500, L501.5200, L500.4050, L506.1001 ####[facility] [address] [place], [address] Total proteinOrdered By: Danyelle Loco on 01-25-2025 Protein [Mass/Vol] 5.8 g/dL Low 5.9-8.4 [facility] Triglycerides measurementOrd ered By: Michelle Loco on 01-25-2025 Triglyceride [Mass/Vol] 86 mg/dL <199 [facility] Comment on above: The drugs N-Acetylcy steine and Metamizole may falsely depress this assay. Normal range: <150 mg/dLBorderline High: 150-199 mg/dLHigh: 200-499 mg/dLVery High: >500 mg/dL Vitamin B12on 01-25-2025 Cobalamin (Vitamin B12) [Mass/Vol] 450 pg/mL Normal 180-914 [facility] Comment on above: Order Comment: 212.1 Performed By: #### L 503.0106, L500.4100, L501.9520, L100.0500, L501.5200, L500.4050, L506.1001 ####[facility] [address] [place], [place], [id number] Vitamin B12 ser/plasOrdered By: Michelle Loco on 01-25-2025 Cobalamin (Vitamin B12) [Mass/Vol] 450 pg/mL 180-914 [facility] Vitamin D,25 Hydroxyon 01-25 Vitamin D 25-OH < 6.0 Low 30-100 [facility] Comment on above: Order Comment: 212.1 Result Comment: Anita min D StatusDeficiency: <20 ng/mL (50nmol/L)Insufficiency: 20-30 ng/mL (50-75 nmol/L)Sufficiency: 30-100 ng/mL (75-250 nmol/L)Toxicity: >100 ng/mL (>250 nmol/L) Performed By: #### L 503.0106, L500.4100, L501.9520, L100.0500, L501.5200, L500.4050, L506.1001 ####[facility] [address] [place], [address] White blood cell (WBC) count Ordered By: Michelle Loco on 01-25-2025 WBC (Bld) [#/Vol] 5.3 10*3/uL 4.4-11.0 [facility] Absolute lymphocyte countOrd ered By: Shorty Lea on 01-24-2025 Lymphocytes Auto (Unsp spec) [#/Vol] 0.94 10*3/uL 0.83-4.51 [facility] Absolute neutrophil countOrd ered By: Shorty Lea on 01-24-2025 Neutrophils (Bld) [#/Vol] 2.2 10*3/uL 2.0-7.7 [facility] Anion gap in Serum or Plasma Ordered By: Shorty Lea on 01-24-2025 Anion gap [Moles/Vol] 10 mmol/L 5- [facility] Automated lymphocyte count a s percentage of total leukocytesOrdered By: Shorty Lea on 01-24-2025 Lymphocytes/100 WBC Auto (Unsp spec) 24.7 % [facility] BUN/creatinine ratioOrdered By: Shorty Lea on 01-24-2025 Urea nitrogen/Creatinine [Mass ratio] 18.9 mg/mg - [facility] Basic Metabolic Profile (BMP )on 01-24-2025 BUN/CRE 18.9 RATIO Normal - [facility] Comment on above: Performed By: #### L 100.0100, L500.2500 ####[facility] [address] [place], [address] Calcium [Mass/Vol] 8.4 mg/dL Normal 7.6-11.0 [facility] Comment on above: Performed By: #### L 100.0100, L500.2500 ####[facility] [address] [place], [address] Chloride [Moles/Vol] 104 mmol/L Normal 98-108 [facility] Comment on above: Performed By: #### L 100.0100, L500.2500 ####[facility] [address] [place], [address] CO2 [Moles/Vol] 17.6 mmol/L Low 21.0-32.0 [facility] Comment on above: Performed By: #### L 100.0100, L500.2500 ####[facility] [address] [place], [address] Creatinine [Mass/Vol] 0.93 mg/dL Normal 0.70-1.20 [facility] Comment on above: Performed By: #### L 100.0100, L500.2500 ####[facility] [address] [place], [address] ECRCL 83.95 ml/min Normal 50-250 [facility] Comment on above: Performed By: #### L 100.0100, L500.2500 ####[facility] [address] [place], [address] GAP 10 Normal 5-15 [facility] Comment on above: Performed By: #### L 100.0100, L500.2500 ####[facility] [address] [place], [address] GFR/1.73 sq M.predicted among non-blacks MDRD (S/P/Bld) [Vol rate/Area] 93 mL/min/{1.73_m2} Normal >60 [facility] Comment on above: Result Comment: mL/m in/1.73m2 CKD-EPI Creatinine Equation (2020) Performed By: #### L 100.0100, L500.2500 ####[facility] [address] [place], [address] Glucose [Mass/Vol] 117 mg/dL High 70-99 [facility] Comment on above: Performed By: #### L 100.0100, L500.2500 ####[facility] [address] [place], [address] Potassium [Moles/Vol] 3.9 mmol/L Normal 3.3-5.1 [facility] Comment on above: Performed By: #### L 100.0100, L500.2500 ####[facility] [address] [place], [address] Sodium [Moles/Vol] 131 mmol/L Low 133-145 [facility] Comment on above: Performed By: #### L 100.0100, L500.2500 ####[facility] [address] [place], [address] Urea nitrogen [Mass/Vol] 18 mg/dL Normal 4-19 [facility] Comment on above: Performed By: #### L 100.0100, L500.2500 ####[facility] [address] [place], [address] Basophil percentageOrdered B y: Shorty Lea on 01-24-2025 Basophils/100 WBC (Bld) 0.3 % 0-1 [facility] Bite cells detectionOrdered By: Shorty Lea on 01-24-2025 Bite cells LM Ql (Bld) RARE [facility] Blood manual differential co mment interpretation (narrative result)Ordered By: Shorty Lea on 01-24-2025 Manual differential comment Mars (Bld) [Interp] SCANNED [facility] CBC W/Diff, Automatedon 01-13 ACANTHOCYTE RARE Normal [facility] Comment on above: Performed By: #### L 100.0100, L500.2500 ####[facility] [address] [place], [address] Anisocytosis Ql (Bld) 1+ Normal [facility] Comment on above: Performed By: #### L 100.0100, L500.2500 ####[facility] [address] [place], [address] BITE CELL RARE Normal [facility] Comment on above: Performed By: #### L 100.0100, L500.2500 ####[facility] [address] [place], [address] PLT EST MKD DEC Normal ADEQ [facility] Comment on above: Performed By: #### L 100.0100, L500.2500 ####[facility] [address] [place], [address] SMEAR COMMENT SCANNED Normal [facility] Comment on above: Performed By: #### L 100.0100, L500.2500 ####[facility] [address] [place], [address] Carbon dioxide, total [Moles /volume] in Central venous bloodOrdered By: Shorty Lea on 01-24-2025 CO2 [Moles/Vol] 17.6 mmol/L Low 21.0-32.0 [facility] Chloride assayOrdered By: Stuart Lea on 01-24-2025 Chloride [Moles/Vol] 104 mmol/L 98-108 [facility] Eosinophil percentageOrdered By: Shorty Lea on 01-24-2025 Eosinophils/100 WBC (Bld) 0.5 % 0-5 [facility] Erythrocyte distribution wid th ratioOrdered By: Shorty Lea on 01-24-2025 Erythrocyte distribution width (RBC) [Ratio] 17.4 % High 11.6-14.6 [facility] Erythrocyte distribution wid th standard deviationOrdered By: Shorty Lea on 01-24-2025 Erythrocyte distribution width (RBC) [Ratio] 57.9 fl High 35.1-43.9 [facility] Ferritinon 01-24-2025 Ferritin [Mass/Vol] 2300 ng/mL High 37-417 [facility] Comment on above: Performed By: #### L 503.6030, L503.6550 ####[facility] [address] [place], [place], [id number] Glomerular filtration rate ( GFR) estimation/1.73 sq m using serum, plasma, or whole bOrdered By: Shorty Lea on 01-24-2025 GFR/1.73 sq M.predicted among non-blacks MDRD (S/P/Bld) [Vol rate/Area] 93 mL/min/{1.73_m2} >60 [facility] Comment on above: mL/min/1.73m2 CKD-EP I Creatinine Equation (2020) Hematocrit Auto (Bld) [Volum e fraction]Ordered By: Shorty Lea on 01-24-2025 Hematocrit (Bld) [Volume fraction] 25.1 % Low 40-54 [facility] Hemoglobin measurementOrdere d By: Shorty Lea on 01-24-2025 Hemoglobin (Bld) [Mass/Vol] 8.8 g/dL Low 13.0-16.5 [facility] Immature granulocytes/100 WB C Auto (Bld)Ordered By: Shorty Lea on 01-24-2025 Immature granulocytes/100 WBC (Bld) 4.200 % High 0.0-0.9 [facility] Comment on above: IG% - Immature Granu locytes (promyelocytes, myelocytes and metamyelocytes) > 1% indicates that a LEFT SHIFT is Present. Iron measurement (mass/mass) Ordered By: Shorty Lea on 01-24-2025 Iron (Unsp spec) [Mass/Mass] 64 ug/dL Low 65-175 [facility] Iron+Iron Binding Capacityon 01-24-2025 TIBC 174 ug/dL Low 250-450 [facility] Comment on above: Performed By: #### L 503.6030, L503.6550 ####[facility] [address] [place], [place], [id number] Laboratory - Hematology and Cell countsOrdered By: Shorty Lea on 01-24-2025 Anisocytosis Ql (Bld) 1+ [facility] MCV (mean corpuscular volume ) determinationOrdered By: Shorty Lea on 01-24-2025 MCV (RBC) [Entitic vol] 90.9 fL 80-94 [facility] Mean corpuscular hemoglobin (MCH) determinationOrdered By: Shorty Lea on 01-24-2025 MCH (RBC) [Entitic mass] 31.9 pg 27.0-32.0 [facility] Mean corpuscular hemoglobin concentration (MCHC) determinationOrdered By: Shorty Lea on 01-24-2025 MCHC (RBC) [Mass/Vol] 35.1 g/dL 32-36 [facility] Mean platelet volume determi nationOrdered By: Shorty Lea on 01-24-2025 Platelet mean volume (Bld) [Entitic vol] 10.9 fL 6.2-12.0 [facility] Monocyte percentageOrdered B y: Shorty Lea on 01-24-2025 Monocytes/100 WBC (Bld) 11.5 % High 0-10 [facility] Neutrophil percentageOrdered By: Shorty Lea on 01-24-2025 Neutrophils/100 WBC (Bld) 58.8 % 47-70 [facility] No Panel InformationOrdered By: Shorty Lea on 01-24-2025 Unsaturated Iron Binding Capacity 110 ug/dL Low 228-428 [facility] Nucleated red blood cell per centageOrdered By: Shorty Lea on 01-24-2025 Nucleated RBC/100 WBC (Bld) [Ratio] 0 % 0-5 [facility] Platelet countOrdered By: Stuart Lea on 01-24-2025 Platelets (Bld) [#/Vol] 32 10*3/uL Low 150-450 [facility] Comment on above: CRITICAL VALUE WHITEHEAD D TO MOE VJAJKCNA47/12/25 0541 Chelsey Leonardo.RESULTS READ BACK BY SAME. Platelet estimateOrdered By: Shorty Lea on 01-24-2025 Platelets LM Ql (Bld) MKD DEC ADEQ [facility] Potassium measurement (mass/ volume)Ordered By: Shorty Lea on 01-24-2025 Potassium (Unsp spec) [Mass/Vol] 3.9 mmol/L 3.3-5.1 [facility] RBC Auto (Bld) [#/Vol]Ordere d By: Shorty Lea on 01-24-2025 RBC (Bld) [#/Vol] 2.76 10*6/uL Low 4.6-6.2 [facility] Serum creatinine measurement (mass/volume)Ordered By: Shorty Lea on 01-24-2025 Creatinine [Mass/Vol] 0.93 mg/dL 0.70-1.20 [facility] Serum glucose measurement (m ass/volume)Ordered By: Shorty Lea on 01-24-2025 Glucose [Mass/Vol] 117 mg/dL High 70-99 [facility] Serum or plasma calcium ed urement (mass/volume)Ordered By: Shorty Lea on 01-24-2025 Calcium [Mass/Vol] 8.4 mg/dL 7.6-11.0 [facility] Serum or plasma ferritin poly surement (mass/volume)Ordered By: Shorty Lea on 01-24-2025 Ferritin [Mass/Vol] 2300 ng/mL High 37-417 [facility] Serum or plasma iron saturat ion measurement (mass fraction)Ordered By: Shorty Lea on 01-24-2025 Iron saturation [Mass fraction] 36.8 % 9-55 [facility] Comment on above: Previous reported re sult: 37.0 %Edited by: NÉSTOR on 01/24/25:1656 AMENDED REPORT 01/24/251656 IRON SATURATION previously reported as: 37.0 % Serum or plasma urea nitroge n measurement (mass/volume)Ordered By: Shorty Lea on 01-24-2025 Urea nitrogen [Mass/Vol] 18 mg/dL 4-19 [facility] Sodium levelOrdered By: Wilman Lea on 01-24-2025 Sodium [Moles/Vol] 131 mmol/L Low 133-145 [facility] White blood cell (WBC) count Ordered By: Shorty Lea on 01-24-2025 WBC (Bld) [#/Vol] 3.8 10*3/uL Low 4.4-11.0 [facility] Bilirubin, totalOrdered By: Shorty Lea on 01-22-2025 Bilirubin [Mass/Vol] 0.39 mg/dL 0.00-1.30 [facility] Comprehensive Metabolic Prof ilon 01-22-2025 Albumin [Mass/Vol] 3.2 g/dL Low 3.4-4.8 [facility] Comment on above: Performed By: #### L 500.4050, L100.0100 ####[facility] [address] [place], [address] Albumin/Globulin [Mass ratio] 1.1 {ratio} Normal 0.9-2.4 [facility] Comment on above: Performed By: #### L 500.4050, L100.0100 ####[facility] [address] [place], [address] ALK PHOS 81 U/L Normal 40-129 [facility] Comment on above: Performed By: #### L 500.4050, L100.0100 ####[facility] [address] [place], [address] ALT [Catalytic activity/Vol] 12 U/L Normal <=46 [facility] Comment on above: Performed By: #### L 500.4050, L100.0100 ####[facility] [address] [place], [address] AST [Catalytic activity/Vol] 33 U/L Normal <=37 [facility] Comment on above: Performed By: #### L 500.4050, L100.0100 ####[facility] [address] [place], [address] Bilirubin [Mass/Vol] 0.39 mg/dL Normal 0.00-1.30 [facility] Comment on above: Performed By: #### L 500.4050, L100.0100 ####[facility] [address] [place], [address] BUN/CRE 14.6 RATIO Normal 10-20 [facility] Comment on above: Performed By: #### L 500.4050, L100.0100 ####[facility] [address] [place], [address] Calcium [Mass/Vol] 8.3 mg/dL Normal 7.6-11.0 [facility] Comment on above: Performed By: #### L 500.4050, L100.0100 ####[facility] [address] [place], [address] Chloride [Moles/Vol] 104 mmol/L Normal 98-108 [facility] Comment on above: Performed By: #### L 500.4050, L100.0100 ####[facility] [address] [place], [address] CO2 [Moles/Vol] 16.4 mmol/L Low 21.0-32.0 [facility] Comment on above: Performed By: #### L 500.4050, L100.0100 ####[facility] [address] [place], [address] Creatinine [Mass/Vol] 1.12 mg/dL Normal 0.70-1.20 [facility] Comment on above: Performed By: #### L 500.4050, L100.0100 ####[facility] [address] [place], [address] ECRCL 69.70 ml/min Normal 50-250 [facility] Comment on above: Performed By: #### L 500.4050, L100.0100 ####[facility] [address] [place], [address] GAP 9 Normal 5-15 [facility] Comment on above: Performed By: #### L 500.4050, L100.0100 ####[facility] [address] [place], [address] GFR/1.73 sq M.predicted among non-blacks MDRD (S/P/Bld) [Vol rate/Area] 74 mL/min/{1.73_m2} Normal >60 [facility] Comment on above: Result Comment: mL/m in/1.73m2 CKD-EPI Creatinine Equation (2020) Performed By: #### L 500.4050, L100.0100 ####[facility] [address] [place], [address] Globulin (S) [Mass/Vol] 3.0 g/dL Normal 2.2-4.[address] [facility] Comment on above: Performed By: #### L 500.4050, L100.0100 ####[facility] [address] [place], [address] Glucose [Mass/Vol] 199 mg/dL High 70-99 [facility] Comment on above: Performed By: #### L 500.4050, L100.0100 ####[facility] [address] [place], [address] Potassium [Moles/Vol] 4.9 mmol/L Normal 3.3-5.1 [facility] Comment on above: Performed By: #### L 500.4050, L100.0100 ####[facility] [address] [place], [address] Sodium [Moles/Vol] 130 mmol/L Low 133-145 [facility] Comment on above: Performed By: #### L 500.4050, L100.0100 ####[facility] [address] [place], [address] T PROT 6.2 g/dL Normal 5.9-8.4 [facility] Comment on above: Performed By: #### L 500.4050, L100.0100 ####[facility] [address] [place], [address] Urea nitrogen [Mass/Vol] 16 mg/dL Normal 4-19 [facility] Comment on above: Performed By: #### L 500.4050, L100.0100 ####[facility] [address] [place], [address] Laboratory - Chemistry and C hemistry - challengeOrdered By: Shorty Lea on 01-22-2025 AST [Catalytic activity/Vol] 33 U/L <38 [facility] Review by pathologistOrdered By: Shorty Lea on 01-22-2025 Pathologist review Mars (Unsp spec) [Interp] Trish wise [facility] Pathologist review Mars (Unsp spec) [Interp] Reviewed [facility] Comment on above: Previous reported re sult: Trish wise Edited by: DWIGHT on 02/03/25:1545SEE REPORT IN PATIENT'S EMR AMENDED REPORT 02/03/25 1545 PATH REV previously reported as: Trish wies Serum globulin measurementOr dered By: Shorty Lea on 01-22-2025 Globulin (S) [Mass/Vol] 3.0 g/dL 2.2-4.2 [facility] Serum or plasma alanine gregory otransferase (ALT) measurementOrdered By: Shorty Lea on 05-10-2025 ALT [Catalytic activity/Vol] 12 U/L <47 [facility] Serum or plasma albumin ed urement (mass/volume)Ordered By: Shorty Lea on 01-22-2025 Albumin [Mass/Vol] 3.2 g/dL Low 3.4-4.8 [facility] Serum or plasma albumin/glob ulin mass ratioOrdered By: Shorty Lea on 01-22-2025 Albumin/Globulin [Mass ratio] 1.1 {ratio} 0.9-2.4 [facility] Serum or plasma alkaline edwin sphatase measurementOrdered By: Shorty Lea on 01-22-2025 ALP [Catalytic activity/Vol] 81 U/L 40-129 [facility] Total proteinOrdered By: Eobny Lea on 01-22-2025 Protein [Mass/Vol] 6.2 g/dL 5.9-8.4 [facility] CBC W/Diff, Automatedon ACANTHOCYTE 1+ Normal [facility] Comment on above: Performed By: #### L 501.2300, L100.0100, L500.4050 ####[facility] [address] [place], [address] Anisocytosis Ql (Bld) 1+ Normal [facility] Comment on above: Performed By: #### L 501.2300, L100.0100, L500.4050 ####[facility] [address] [place], [address] OVALOCYTE 1+ Normal [facility] Comment on above: Performed By: #### L 501.2300, L100.0100, L500.4050 ####[facility] [address] [place], [address] PLT EST MKD DEC Normal ADEQ [facility] Comment on above: Performed By: #### L 501.2300, L100.0100, L500.4050 ####[facility] [address] [place], [address] Comprehensive Metabolic Prof ilon 01-21-2025 Albumin [Mass/Vol] 3.0 g/dL Low 3.4-4.8 [facility] Comment on above: Performed By: #### L 501.2300, L100.0100, L500.4050 ####[facility] [address] [place], [address] Albumin/Globulin [Mass ratio] 1.1 {ratio} Normal 0.9-2.4 [facility] Comment on above: Performed By: #### L 501.2300, L100.0100, L500.4050 ####[facility] [address] [place], [address] ALK PHOS 79 U/L Normal 40-129 [facility] Comment on above: Performed By: #### L 501.2300, L100.0100, L500.4050 ####[facility] [address] [place], [address] ALT [Catalytic activity/Vol] 13 U/L Normal <=46 [facility] Comment on above: Performed By: #### L 501.2300, L100.0100, L500.4050 ####[facility] [address] [place], [address] AST [Catalytic activity/Vol] 37 U/L Normal <=37 [facility] Comment on above: Performed By: #### L 501.2300, L100.0100, L500.4050 ####[facility] [address] [place], [address] Bilirubin [Mass/Vol] 0.59 mg/dL Normal 0.00-1.30 [facility] Comment on above: Performed By: #### L 501.2300, L100.0100, L500.4050 ####[facility] [address] [place], [address] BUN/CRE 14.7 RATIO Normal 10-20 [facility] Comment on above: Performed By: #### L 501.2300, L100.0100, L500.4050 ####[facility] [address] [place], [address] Calcium [Mass/Vol] 7.8 mg/dL Normal 7.6-11.0 [facility] Comment on above: Performed By: #### L 501.2300, L100.0100, L500.4050 ####[facility] [address] [place], [address] Chloride [Moles/Vol] 100 mmol/L Normal 98-108 [facility] Comment on above: Performed By: #### L 501.2300, L100.0100, L500.4050 ####[facility] [address] [place], [address] CO2 [Moles/Vol] 17.0 mmol/L Low 21.0-32.0 [facility] Comment on above: Performed By: #### L 501.2300, L100.0100, L500.4050 ####[facility] [address] [place], [address] Creatinine [Mass/Vol] 0.93 mg/dL Normal 0.70-1.20 [facility] Comment on above: Performed By: #### L 501.2300, L100.0100, L500.4050 ####[facility] [address] [place], [address] ECRCL 83.95 ml/min Normal 50-250 [facility] Comment on above: Performed By: #### L 501.2300, L100.0100, L500.4050 ####[facility] [address] [place], [address] GAP 11 Normal 5-15 [facility] Comment on above: Performed By: #### L 501.2300, L100.0100, L500.4050 ####[facility] [address] [place], [address] GFR/1.73 sq M.predicted among non-blacks MDRD (S/P/Bld) [Vol rate/Area] 92 mL/min/{1.73_m2} Normal >60 [facility] Comment on above: Result Comment: mL/m in/1.73m2 CKD-EPI Creatinine Equation (2020) Performed By: #### L 501.2300, L100.0100, L500.4050 ####[facility] [address] [place], [address] Globulin (S) [Mass/Vol] 2.7 g/dL Normal 2.2-4.2 [facility] Comment on above: Performed By: #### L 501.2300, L100.0100, L500.4050 ####[facility] [address] [place], [address] Glucose [Mass/Vol] 114 mg/dL High 70-99 [facility] Comment on above: Performed By: #### L 501.2300, L100.0100, L500.4050 ####[facility] [address] [place], [address] Potassium [Moles/Vol] 3.2 mmol/L Low 3.3-5.1 [facility] Comment on above: Performed By: #### L 501.2300, L100.0100, L500.4050 ####[facility] [address] [place], [address] Sodium [Moles/Vol] 129 mmol/L Low 133-145 [facility] Comment on above: Performed By: #### L 501.2300, L100.0100, L500.4050 ####[facility] [address] [place], [address] T PROT 5.7 g/dL Low 5.9-8.4 [facility] Comment on above: Performed By: #### L 501.2300, L100.0100, L500.4050 ####[facility] [address] [place], [address] Urea nitrogen [Mass/Vol] 14 mg/dL Normal 4-19 [facility] Comment on above: Performed By: #### L 501.2300, L100.0100, L500.4050 ####[facility] [address] [place], [address] Creatinine, Urine (random)on 01-21-2025 UR CREAT 37.80 mg/dL Low 39.00-259.00 [facility] Comment on above: Performed By: #### L 501.7400, L501.1200, L500.9400 ####[facility] [address] [place], [address] Foot min 3 Viewson 5 Foot min 3 Views Normal [facility] Haptoglobinon 01-21-2025 HAPTOGLOBIN 127 mg/dL Normal 32-363 [facility] Comment on above: Result Comment: Perf ormed at: [employer] [address] [id number] Director: Harrison Villareal PhD, Phone: [phone] Performed By: #### L 3100.1850, Y47597-3, L504.8590 ####[facility] [address] [place], [address] L501.5101on 01-21-2025 GGTP 31 IU/L Normal 0-65 [facility] Comment on above: Result Comment: Perf ormed at: [employer] [address] [id number] Director: Harrison Villareal PhD, Phone: [phone] Performed By: #### L 501.2300, L501.5101, L501.6901 ####[facility] [address] [place], [place], [address] Osmolality urOrdered By: Ebony Lea on 01-21-2025 Osmolality (U) [Osmolality] 201 mOsm/KG >50 [facility] Comment on above: Normal Urine Referen ce Ranges Random: 50 - 1200 mOsm/kg H20 depending on fluid intake Random: >850 mOsm/kg after 12 hour fluid restriction 24 hour: ~300 - 900 mOsm/kg H2O Osmolality, Urineon 01-22-20 25 OSMOLALITY,UR 201 mOsm/KG Normal [facility] Comment on above: Result Comment: Norm al Urine Reference Ranges Random: 50 - 1200 mOsm/kg H20 depending on fluid intake Random: >850 mOsm/kg after 12 hour fluid restriction 24 hour: 300 - 900 mOsm/kg H2O Performed By: #### L 501.7400, L501.1200, L500.9400 ####[facility] [address] [facility] [place], [place], [id number] Ovalocyte detectionOrdered B y: Shorty Lea on 01-21-2025 Ovalocytes LM Ql (Bld) 1+ [facility] Phosphoruson 01-21-2025 Phosphate [Mass/Vol] 2.7 mg/dL Normal 2.7-4.5 [facility] Comment on above: Performed By: #### L 501.2300, L100.0100, L500.4050 ####[facility] [address] [place], [place], [id number] Random urine creatinine ed urement (mass/volume)Ordered By: Shorty Lea on 01-21-2025 Creatinine Unsp time (U) [Mass/Vol] 37.80 mg/dL Low 39.00-259.00 [facility] Serum or plasma uric acid me asurement (mass/volume)Ordered By: Shorty Lea on 01-21-2025 Urate [Mass/Vol] 5.5 mg/dL 3.5-7.2 [facility] Comment on above: The drugs N-Acetylcy steine and Metamizole may falsely depress this assay. Uric Acidon 01-21-2025 URIC 5.5 mg/dL Normal 3.5-7.2 [facility] Comment on above: Result Comment: The drugs N-Acetylcysteine and Metamizole may falselydepress this assay. Performed By: #### L 501.1400 ####[facility] [address] [place], [address] Urine Electrolytes- Randomon 01-21-2025 Chloride,URINE 24 mmol/L Normal Not Establ. [facility] Comment on above: Performed By: #### L 501.7400, L501.1200, L500.9400 ####[facility] [address] [place], [address] Sodium (U) [Moles/Vol] 35 mmol/L Normal Not Establ. [facility] Comment on above: Performed By: #### L 501.7400, L501.1200, L500.9400 ####[facility] [address] [place], [address] UR K 7.2 mmol/L Normal Not Establ. [facility] Comment on above: Performed By: #### L 501.7400, L501.1200, L500.9400 ####[facility] [address] [place], [address] Urine potassium measurement (moles/volume)Ordered By: Shoryt Lea on 01-21-2025 Potassium (U) [Moles/Vol] 7.2 mmol/L Not Establ. [facility] Urine sodium measurement (mo les/volume)Ordered By: Shorty Lea on 01-21-2025 Sodium (U) [Moles/Vol] 35 mmol/L Not Establ. [facility] CBC-Complete Blood Cnt No Di ffon 01-20-2025 Erythrocyte distribution width (RBC) [Ratio] 17.9 % High 11.6-14.6 [facility] Comment on above: Order Comment: CRITI MODESTO VALUE CALLED TO [facility]01/20/25 0722 Evangelina Ayon.RESULTS READ BACK BY SAME. Performed By: #### L 501.9520, L500.4050, L100.0500, L503.0106 ####[facility] [address] [place], [address] Hematocrit (Bld) [Volume fraction] 19.8 % Low 40-54 [facility] Comment on above: Order Comment: CRITI MODESTO VALUE CALLED TO [facility]01/20/25 Evangelina Ayon.RESULTS READ BACK BY SAME. Performed By: #### L 501.9520, L500.4050, L100.0500, L503.0106 ####[facility] [address] [place], [address] Hemoglobin (Bld) [Mass/Vol] 7.5 g/dL Low 13.0-16.5 [facility] Comment on above: Order Comment: CRITI MODESTO VALUE CALLED TO [facility]01/20/25 Evangelina Ayon.RESULTS READ BACK BY SAME. Performed By: #### L 501.9520, L500.4050, L100.0500, L503.0106 ####[facility] [address] [place], [address] MCH (RBC) [Entitic mass] 32.9 pg High 27.0-32.0 [facility] Comment on above: Order Comment: CRITI MODESTO VALUE CALLED TO [facility]01/20/25721 Evangelina Ayon.RESULTS READ BACK BY SAME. Performed By: #### L 501.9520, L500.4050, L100.0500, L503.0106 ####[facility] [address] [place], [address] MCHC (RBC) [Mass/Vol] 37.9 g/dL High 32-36 [facility] Comment on above: Order Comment: CRITI MODESTO VALUE CALLED TO [facility]01/20/25721 Evangelina Ayon.RESULTS READ BACK BY SAME. Performed By: #### L 501.9520, L500.4050, L100.0500, L503.0106 ####[facility] [address] [place], [address] MCV (RBC) [Entitic vol] 86.8 fL Normal 80-94 [facility] Comment on above: Order Comment: CRITI MODESTO VALUE CALLED TO [facility]01/20/25721 Evangelina Ayon.RESULTS READ BACK BY SAME. Performed By: #### L 501.9520, L500.4050, L100.0500, L503.0106 ####[facility] [address] [place], [address] Platelet mean volume (Bld) [Entitic vol] 10.5 fL Normal 6.2-12.0 [facility] Comment on above: Order Comment: CRITI MODESTO VALUE CALLED TO [facility]01/20/25 Evangelina Ayon.RESULTS READ BACK BY SAME. Performed By: #### L 501.9520, L500.4050, L100.0500, L503.0106 ####[facility] [address] [place], [address] Platelets (Bld) [#/Vol] 32 10*3/uL Invalid Interpretation Code 150-450 [facility] Comment on above: Order Comment: CRITI MODESTO VALUE CALLED TO [facility]01/20/25 Evangelina Ayon.RESULTS READ BACK BY SAME. Performed By: #### L 501.9520, L500.4050, L100.0500, L503.0106 ####[facility] [address] [place], [address] RBC (Bld) [#/Vol] 2.28 10*6/uL Low 4.6-6.2 [facility] Comment on above: Order Comment: CRITI MODESTO VALUE CALLED TO [facility]01/20/25721 Evangelina Ayon.RESULTS READ BACK BY SAME. Performed By: #### L 501.9520, L500.4050, L100.0500, L503.0106 ####[facility] [address] [place], [address] RDW SD 56.9 fl High 35.1-43.9 [facility] Comment on above: Order Comment: CRITI MODESTO VALUE CALLED TO [facility]01/20/25 0722 Evangelina Ayon.RESULTS READ BACK BY SAME. Performed By: #### L 501.9520, L500.4050, L100.0500, L503.0106 ####[facility] [address] [place], [address] WBC (Bld) [#/Vol] 2.2 10*3/uL Low 4.4-11.0 [facility] Comment on above: Order Comment: CRITI MODESTO VALUE CALLED TO [facility]01/20/25 0722 Evangelina Ayon.RESULTS READ BACK BY SAME. Performed By: #### L 501.9520, L500.4050, L100.0500, L503.0106 ####[facility] [address] [place], [address] Comprehensive Metabolic Prof [facility] 01-20-2025 Albumin [Mass/Vol] 3.1 g/dL Low 3.4-4.8 [facility] Comment on above: Performed By: #### L 501.9520, L500.4050, L100.0500, L503.0106 ####[facility] [address] [place], [address] Albumin/Globulin [Mass ratio] 1.2 {ratio} Normal 0.9-2.4 [facility] Comment on above: Performed By: #### L 501.9520, L500.4050, L100.0500, L503.0106 ####[facility] [address] [place], [address] ALK PHOS 76 U/L Normal 40-129 [facility] Comment on above: Performed By: #### L 501.9520, L500.4050, L100.0500, L503.0106 ####[facility] [address] [place], [address] ALT [Catalytic activity/Vol] 16 U/L Normal <=46 [facility] Comment on above: Performed By: #### L 501.9520, L500.4050, L100.0500, L503.0106 ####[facility] [address] [place], [address] AST [Catalytic activity/Vol] 51 U/L High <=37 [facility] Comment on above: Performed By: #### L 501.9520, L500.4050, L100.0500, L503.0106 ####[facility] [address] [place], [address] Bilirubin [Mass/Vol] 1.36 mg/dL High 0.00-1.30 [facility] Comment on above: Performed By: #### L 501.9520, L500.4050, L100.0500, L503.0106 ####[facility] [address] [place], [address] BUN/CRE 16.4 RATIO Normal 10-20 [facility] Comment on above: Performed By: #### L 501.9520, L500.4050, L100.0500, L503.0106 ####[facility] [address] [place], [address] Calcium [Mass/Vol] 7.5 mg/dL Low 7.6-11.0 [facility] Comment on above: Performed By: #### L 501.9520, L500.4050, L100.0500, L503.0106 ####[facility] [address] [place], [address] Chloride [Moles/Vol] 93 mmol/L Low 98-108 [facility] Comment on above: Performed By: #### L 501.9520, L500.4050, L100.0500, L503.0106 ####[facility] [address] [place], [address] CO2 [Moles/Vol] 16.2 mmol/L Low 21.0-32.0 [facility] Comment on above: Performed By: #### L 501.9520, L500.4050, L100.0500, L503.0106 ####[facility] [address] [place], [address] Creatinine [Mass/Vol] 0.92 mg/dL Normal 0.70-1.20 [facility] Comment on above: Performed By: #### L 501.9520, L500.4050, L100.0500, L503.0106 ####[facility] [address] [place], [address] ECRCL 84.86 ml/min Normal 50-250 [facility] Comment on above: Performed By: #### L 501.9520, L500.4050, L100.0500, L503.0106 ####[facility] [address] [place], [address] GAP 14 Normal 5-15 [facility] Comment on above: Performed By: #### L 501.9520, L500.4050, L100.0500, L503.0106 ####[facility] [address] [place], [address] GFR/1.73 sq M.predicted among non-blacks MDRD (S/P/Bld) [Vol rate/Area] 93 mL/min/{1.73_m2} Normal >60 [facility] Comment on above: Result Comment: mL/m in/1.73m2 CKD-EPI Creatinine Equation (2020) Performed By: #### L 501.9520, L500.4050, L100.0500, L503.0106 ####[facility] [address] [place], [address] Globulin (S) [Mass/Vol] 2.5 g/dL Normal 2.2-4.2 [facility] Comment on above: Performed By: #### L 501.9520, L500.4050, L100.0500, L503.0106 ####[facility] [address] [place], [address] Glucose [Mass/Vol] 153 mg/dL High 70-99 [facility] Comment on above: Performed By: #### L 501.9520, L500.4050, L100.0500, L503.0106 ####[facility] [address] [place], [address] Potassium [Moles/Vol] 3.0 mmol/L Low 3.3-5.1 [facility] Comment on above: Performed By: #### L 501.9520, L500.4050, L100.0500, L503.0106 ####[facility] [address] [place], [address] Sodium [Moles/Vol] 124 mmol/L Low 133-145 [facility] Comment on above: Performed By: #### L 501.9520, L500.4050, L100.0500, L503.0106 ####[facility] [address] [place], [address] T PROT 5.6 g/dL Low 5.9-8.4 [facility] Comment on above: Performed By: #### L 501.9520, L500.4050, L100.0500, L503.0106 ####[facility] [address] [place], [address] Urea nitrogen [Mass/Vol] 15 mg/dL Normal 4-19 [facility] Comment on above: Performed By: #### L 501.9520, L500.4050, L100.0500, L503.0106 ####[facility] [address] [place], [address] Folate [Mass/volume] in Seru m or PlasmaOrdered By: Shorty Lea on 01-20-2025 Folate [Mass/Vol] 3.23 ng/mL Low 4.60-34.80 [facility] Comment on above: Hemolysis, Results w ill be affected, Requires Recollection. Folates,Serum (Folic Acid)on 01-20-2025 FOLATES,SERUM 3.23 ng/mL Low 4.60-34.80 [facility] Comment on above: Result Comment: Hemo lysis, Results will be affected, Requires Recollection. Performed By: #### L 506.0200 ####[facility] [address] [place], [address] Magnesiumon 01-20-2025 Magnesium [Mass/Vol] 1.8 mg/dL Normal 1.5-2.2 [facility] Comment on above: Performed By: #### L 501.5200, L501.2300 ####[facility] [address] [place], [address] Magnesium measurement (mass/ volume)Ordered By: Shorty Lea on 01-20-2025 Magnesium (Unsp spec) [Mass/Vol] 1.8 mg/dL 1.5-2.2 [facility] Phosphoruson 01-20-2025 Phosphate [Mass/Vol] 0.7 mg/dL Invalid Interpretation Code 2.7-4.5 [facility] Comment on above: Result Comment: Crit ical Result(s) Called at: 01/20/2025-14:36 by: Eric to Krysten Kauffman??Results read back by same. Performed By: #### L 501.5200, L501.2300 ####[facility] [address] [place], [address] TSH DL <= 0.005 mIU/L QnOrde red By: Shorty Lea on 01-20-2025 TSH Qn 2.000 uIU/mL 0.300-4.200 [facility] Thyroid Stim Hormone (TSH)on 01-20-2025 TSH 2.000 uIU/mL Normal 0.300-4.200 [facility] Comment on above: Performed By: #### L 501.9520, L500.4050, L100.0500, L503.0106 ####[facility] [address] [place], [address] Vitamin B12on 01-20-2025 Cobalamin (Vitamin B12) [Mass/Vol] 418 pg/mL Normal 180-914 [facility] Comment on above: Performed By: #### L 501.9520, L500.4050, L100.0500, L503.0106 ####[facility] [address] [place], [address] Vitamin B12 ser/plasOrdered By: Shorty Lea on 01-20-2025 Cobalamin (Vitamin B12) [Mass/Vol] 418 pg/mL 180-914 [facility] Activated partial thrombopla stin time (aPTT) in platelet poor plasma by coagulation aOrdered By: Milagro Sanders on 01-19-2025 aPTT Coag (PPP) [Time] 35.9 s 24.1-36.2 [facility] Alcohol, Blood (Medical)-Ser umon 01-19-2025 SERUM ETOH < 10.1 Normal <=10.0 [facility] Comment on above: Result Comment: This test is for medical purposes only. The legaldefinition of intoxication varies according to local law. Performed By: #### L 300.3900, L300.4310, L100.0100, L500.4050, L501.9100, L501.2450, L501.3620 ####[facility] [address] [place], [address] [id number] 01-19-2025 DIRECT JAIME NEG w/POLYSPECIFIC Normal NEGATIVE [facility] Comment on above: Performed By: #### L 3100.1850, U66468-2, L504.2610 ####[facility] [address] [place], [address] BRCon 01-19-2025 RC Normal [facility] Comment on above: Result Comment: [id number] AP RC TRANSFUSED 01/19/25 [id number] AP RC TRANSFUSED 01/19/25 1020 Performed By: #### B RC, BTS, M100.7900 ####[facility] [address] [place], [address] Result Comment: [id number] AP RC TRANSFUSED 01/20/25 1419 Performed By: #### B RC ####[facility] [address] [place], [address] Basic Metabolic Profile (BMP )on 01-19-2025 BUN/CRE 15.8 RATIO Normal 10-20 [facility] Comment on above: Performed By: #### L 500.2500 ####[facility] [address] [place], [address] Calcium [Mass/Vol] 7.6 mg/dL Normal 7.6-11.0 [facility] Comment on above: Performed By: #### L 500.2500 ####[facility] [address] [place], [address] Chloride [Moles/Vol] 89 mmol/L Low 98-108 [facility] Comment on above: Performed By: #### L 500.2500 ####[facility] [address] [place], [address] CO2 [Moles/Vol] 14.5 mmol/L Low 21.0-32.0 [facility] Comment on above: Performed By: #### L 500.2500 ####[facility] [address] [place], [address] Creatinine [Mass/Vol] 1.00 mg/dL Normal 0.70-1.20 [facility] Comment on above: Performed By: #### L 500.2500 ####[facility] [address] [place], [address] ECRCL 78.07 ml/min Normal 50-250 [facility] Comment on above: Performed By: #### L 500.2500 ####[facility] [address] [place], [address] GAP 19 High 5-15 [facility] Comment on above: Performed By: #### L 500.2500 ####[facility] [address] [place], [address] GFR/1.73 sq M.predicted among non-blacks MDRD (S/P/Bld) [Vol rate/Area] 85 mL/min/{1.73_m2} Normal >60 [facility] Comment on above: Result Comment: mL/m in/1.73m2 CKD-EPI Creatinine Equation (2020) Performed By: #### L 500.2500 ####[facility] [address] [place], [address] Glucose [Mass/Vol] 142 mg/dL High 70-99 [facility] Comment on above: Performed By: #### L 500.2500 ####[facility] [address] [place], [address] Potassium [Moles/Vol] 3.1 mmol/L Low 3.3-5.1 [facility] Comment on above: Performed By: #### L 500.2500 ####[facility] [address] [place], [address] Sodium [Moles/Vol] 122 mmol/L Low 133-145 [facility] Comment on above: Performed By: #### L 500.2500 ####[facility] [address] [place], [address] Urea nitrogen [Mass/Vol] 16 mg/dL Normal 4-19 [facility] Comment on above: Performed By: #### L 500.2500 ####[facility] [address] [place], [address] Beta-Hydroxbytyrateon 2024 BETA-HYDROXYBUT 3.0 mmol/L Normal 0.0-0.3 [facility] Comment on above: Performed By: #### L 501.2300, L501.5101, L501.6901 ####[facility] [address] [place], [address] Beta-hydroxybutyrateOrdered By: Shorty Lea on 01-19-2025 Beta hydroxybutyrate [Mass/Vol] 3.0 mmol/L 0.0-0.3 [facility] Bilirubin Test strip Ql (U)O rdered By: Milagro Sanders on 01-19-2025 Bilirubin Ql (U) Negative Negative [facility] Brain/Head without Contrasto n 01-19-2025 Brain/Head without Contrast Normal [facility] CBC W/Diff, Automatedon 05- SMEAR COMMENT COMMENT Normal [facility] Comment on above: Result Comment: LYMP HOPENIA.ANEMIA. Performed By: #### L 300.3900, L300.4310, L100.0100, L500.4050, L501.9100, L501.2450, L501.3620 ####[facility] [address] [place], [address] Anisocytosis Ql (Bld) 2+ Normal [facility] Comment on above: Performed By: #### L 300.3900, L300.4310, L100.0100, L500.4050, L501.9100, L501.2450, L501.3620 ####[facility] [address] [place], [address] PLT EST MKD DEC Normal ADEQ [facility] Comment on above: Performed By: #### L 300.3900, L300.4310, L100.0100, L500.4050, L501.9100, L501.2450, L501.3620 ####[facility] [address] [place], [address] CO2 (BldV) [Moles/Vol]Ordere d By: Milagro Sanders on 01-19-2025 CO2 [Moles/Vol] 17 mmol/L Low 23-33 [facility] CPK Total, Creatine Kinaseon 01-19-2025 CPK TOTAL 19 U/L Low 24-195 [facility] Comment on above: Performed By: #### L 300.3900, L300.4310, L100.0100, L500.4050, L501.9100, L501.2450, L501.3620 ####[facility] [address] [place], [address] Chest 1 View (Portable)on Chest 1 View (Portable) Normal [facility] Comprehensive Metabolic Prof ilon 01-19-2025 Albumin [Mass/Vol] 3.5 g/dL Normal 3.4-4.8 [facility] Comment on above: Performed By: #### L 300.3900, L300.4310, L100.0100, L500.4050, L501.9100, L501.2450, L501.3620 ####[facility] [address] [place], [address] Albumin/Globulin [Mass ratio] 1.2 {ratio} Normal 0.9-2.4 [facility] Comment on above: Performed By: #### L 300.3900, L300.4310, L100.0100, L500.4050, L501.9100, L501.2450, L501.3620 ####[facility] [address] [place], [address] ALK PHOS 93 U/L Normal 40-129 [facility] Comment on above: Performed By: #### L 300.3900, L300.4310, L100.0100, L500.4050, L501.9100, L501.2450, L501.3620 ####[facility] [address] [place], [address] ALT [Catalytic activity/Vol] 21 U/L Normal <=46 [facility] Comment on above: Performed By: #### L 300.3900, L300.4310, L100.0100, L500.4050, L501.9100, L501.2450, L501.3620 ####[facility] [address] [place], [address] AST [Catalytic activity/Vol] 49 U/L High <=37 [facility] Comment on above: Performed By: #### L 300.3900, L300.4310, L100.0100, L500.4050, L501.9100, L501.2450, L501.3620 ####[facility] [address] [place], [place], [phone] Bilirubin [Mass/Vol] 0.61 mg/dL Normal 0.00-1.30 [facility] Comment on above: Performed By: #### L 300.3900, L300.4310, L100.0100, L500.4050, L501.9100, L501.2450, L501.3620 ####[facility] [address] [place], [place], [id number] BUN/CRE 14.4 RATIO Normal 10-20 [facility] Comment on above: Performed By: #### L 300.3900, L300.4310, L100.0100, L500.4050, L501.9100, L501.2450, L501.3620 ####[facility] [address] [place], [address] Calcium [Mass/Vol] 7.8 mg/dL Normal 7.6-11.0 [facility] Comment on above: Performed By: #### L 300.3900, L300.4310, L100.0100, L500.4050, L501.9100, L501.2450, L501.3620 ####[facility] [address] [place], [address] Chloride [Moles/Vol] 85 mmol/L Low 98-108 [facility] Comment on above: Performed By: #### L 300.3900, L300.4310, L100.0100, L500.4050, L501.9100, L501.2450, L501.3620 ####[facility] [address] [place], [address] CO2 [Moles/Vol] 15.7 mmol/L Low 21.0-32.0 [facility] Comment on above: Performed By: #### L 300.3900, L300.4310, L100.0100, L500.4050, L501.9100, L501.2450, L501.3620 ####[facility] [address] [place], [address] Creatinine [Mass/Vol] 1.02 mg/dL Normal 0.70-1.20 [facility] Comment on above: Performed By: #### L 300.3900, L300.4310, L100.0100, L500.4050, L501.9100, L501.2450, L501.3620 ####[facility] [address] [place], [address] ECRCL 74.13 ml/min Normal 50-250 [facility] Comment on above: Performed By: #### L 300.3900, L300.4310, L100.0100, L500.4050, L501.9100, L501.2450, L501.3620 ####[facility] [address] [place], [address] GAP 20 High 5-15 [facility] Comment on above: Performed By: #### L 300.3900, L300.4310, L100.0100, L500.4050, L501.9100, L501.2450, L501.3620 ####[facility] [address] [place], [address] GFR/1.73 sq M.predicted among non-blacks MDRD (S/P/Bld) [Vol rate/Area] 83 mL/min/{1.73_m2} Normal >60 [facility] Comment on above: Result Comment: mL/m in/1.73m2 CKD-EPI Creatinine Equation (2020) Performed By: #### L 300.3900, L300.4310, L100.0100, L500.4050, L501.9100, L501.2450, L501.3620 ####[facility] [address] [place], [address] Globulin (S) [Mass/Vol] 3.0 g/dL Normal 2.2-4.[address] [facility] Comment on above: Performed By: #### L 300.3900, L300.4310, L100.0100, L500.4050, L501.9100, L501.2450, L501.3620 ####[facility] [address] [place], [address] Glucose [Mass/Vol] 118 mg/dL High 70-99 [facility] Comment on above: Performed By: #### L 300.3900, L300.4310, L100.0100, L500.4050, L501.9100, L501.2450, L501.3620 ####[facility] [address] [place], [address] Potassium [Moles/Vol] 2.9 mmol/L Low 3.3-5.1 [facility] Comment on above: Performed By: #### L 300.3900, L300.4310, L100.0100, L500.4050, L501.9100, L501.2450, L501.3620 ####[facility] [address] [place], [place], [address] Sodium [Moles/Vol] 121 mmol/L Low 133-145 [facility] Comment on above: Performed By: #### L 300.3900, L300.4310, L100.0100, L500.4050, L501.9100, L501.2450, L501.3620 ####[facility] [address] [address] [place], [place], [id number] T PROT 6.5 g/dL Normal 5.9-8.4 [facility] Comment on above: Performed By: #### L 300.3900, L300.4310, L100.0100, L500.4050, L501.9100, L501.2450, L501.3620 ####[facility] [address] [place], [place], [id number] Urea nitrogen [Mass/Vol] 15 mg/dL Normal 4-19 [facility] Comment on above: Performed By: #### L 300.3900, L300.4310, L100.0100, L500.4050, L501.9100, L501.2450, L501.3620 ####[facility] [address] [place], [place], [address] Emergency Department Summary on 01-19-2025 Emergency Department Summary Normal [facility] Gamma glutamyl transferase ( GGT) measurementOrdered By: Shorty Lea on 01-19-2025 Amylase [Catalytic activity/Vol] 31 U/L 0-65 [facility] Comment on above: Performed at: [facility] [address] [id number] Director: Harrison Villareal PhD, Phone: [phone] H AND P Exam - Hospitaliston 01-19-2025 H&P Exam - Hospitalist Normal [facility] HH, Hemoglobin AND Hematocri ton 01-19-2025 Hematocrit (Bld) [Volume fraction] 22.4 % Low 40-54 [facility] Comment on above: Performed By: #### L 100.0600 ####[facility] [address] [place], [place], [phone] Hemoglobin (Bld) [Mass/Vol] 8.3 g/dL Low 13.0-16.5 [facility] Comment on above: Performed By: #### L 100.0600 ####[facility] [address] [place], [place], [phone] Immature platelet percentage Ordered By: Shorty Lea on 01-19-2025 Platelets reticulated/100 platelets Auto (Bld) 4.7 % 1.0-7.9 [facility] Comment on above: Low PLT + Low IPF acrter ggest a bone marrow production disorderLow PLT [...] INR Coag (Bld) [Relative time] 1.0 {INR} [facility] Ketones Test strip Ql (U)Ord ered By: Milagro Sanders on 01-19-2025 Ketones Ql (U) 50 mg/dl High Negative [facility] LDHon 01-19-2025 LDH 191 U/L Normal 87-241 [facility] Comment on above: Performed By: #### L 3100.1850, E77457-8, L504.2610 ####[facility] [address] [place], [place], [id number] Lactate dehydrogenase (LDH) measurementOrdered By: Shorty Lea on 01-19-2025 LDH [Catalytic activity/Vol] 191 U/L 87-241 [facility] Lipaseon 01-19-2025 Lipase [Catalytic activity/Vol] 36 U/L Normal 13-75 [facility] Comment on above: Result Comment: Plea se note:LIPASE revised reference range effective 22.New Lipase methodology. Expected to produce lower valuesthan the previous assay method.NEW Reference Range: 13 - 75 U/L Performed By: #### L 300.3900, L300.4310, L100.0100, L500.4050, L501.9100, L501.2450, L501.3620 ####[facility] [address] [place], [place], [phone] Lipase measurementOrdered By : Milagro Sanders on 01-19-2025 Lipase [Catalytic activity/Vol] 36 U/L 13-75 [facility] Comment on above: Please note:LIPASE r evised reference range effective 22. New Lipase methodology. Expected to produce lower values than the previous assay method. NEW Reference Range: 13 - 75 U/L Magnesiumon 01-19-2025 Magnesium [Mass/Vol] 1.0 mg/dL Low 1.5-2.2 [facility] Comment on above: Performed By: #### L 501.5200 ####[facility] [address] [place], [place], [phone] Microscopic analysis of urin e for red blood cells (RBC)Ordered By: Milagro Sanders on 01-19-2025 Microscopic analysis of urine for red blood cells (RBC) 0 SEEN /hpf 0-5 [facility] Mucus LM Ql (Urine sed)Order ed By: Milagro Sanders on 01-19-2025 Mucus Ql (Urine sed) 0 SEEN /hpf [facility] Nitrite Test strip Ql (U)Ord ered By: Milagro Sanders on 01-19-2025 Nitrite Ql (U) Negative Negative [facility] No Panel InformationOrdered By: Milagro Sanders on 01-19-2025 Blood Gas Sample Site Not entered [facility] Blood Gas Specimen Type SAGRARIO [facility] Oxygen Delivery Device Not entered [facility] Partial Thromboplast Timeon 01-19-2025 aPTT Coag (Bld) [Time] 35.9 s Normal 24.1-36.2 [facility] Comment on above: Performed By: #### L 300.3900, L300.4310, L100.0100, L500.4050, L501.9100, L501.2450, L501.3620 ####[facility] [address] [place], [place], [id number] Pelvis 1 or 2 Viewson 2024 Pelvis 1 or 2 Views Normal [facility] Phosphoruson 01-19-2025 Phosphate [Mass/Vol] 1.5 mg/dL Low 2.7-4.5 [facility] Comment on above: Performed By: #### L 501.2300, L501.5101, L501.6901 ####[facility] [address] [place], [place], [phone] Protein Test strip Ql (U)Ord ered By: Milagro Sanders on 01-19-2025 Protein Ql (U) 30 mg/dl High Negative [facility] Prothrombin Time w/INRon INR Coag (PPP) [Relative time] 1.0 {INR} Normal [facility] Comment on above: Performed By: #### L 300.3900, L300.4310, L100.0100, L500.4050, L501.9100, L501.2450, L501.3620 ####[facility] [address] [place], [address] PT Coag (PPP) [Time] 13.8 s Normal 11.7-14.9 [facility] Comment on above: Performed By: #### L 300.3900, L300.4310, L100.0100, L500.4050, L501.9100, L501.2450, L501.3620 ####[facility] [address] [place], [place], [phone] Prothrombin timeOrdered By: Milagro Sanders on 01-19-2025 PT Coag (PPP) [Time] 13.8 s 11.7-14.9 [facility] Retic Panelon 01-19-2025 IM RET FRACTION 6.60 Normal 3.00-15.90 [facility] Comment on above: Performed By: #### L 100.9950 ####[facility] [address] [place], [place], [phone] IPF 4.7 Normal 1.0-7.9 [facility] Comment on above: Result Comment: Low PLT + Low IPF suggest a bone marrow production disorderLow PLT + high IPF suggests peripheral destruction(e.g.ITP, TTP, HIT, DIC, autoimmune) or bone marrow recoveryTrending of serial IPF measurements is recommended whenevaluating for bone marrow responesValue above normal range indicates an increase in RBCcellular response from bone marrow. Performed By: #### L 100.9950 ####[facility] [address] [place], [place], [phone] RET-HE 35.9 pg High 30-35 [facility] Comment on above: Performed By: #### L 100.9950 ####[facility] [address] [place], [place], [phone] Retic Count 0.26 Low 0.5-1.5 [facility] Comment on above: Performed By: #### L 100.9950 ####[facility] [address] [place], [place], [phone] Reticulocyte hemoglobin equi valent (RET-He) measurementOrdered By: Shorty Lea on 01-19-2025 Hemoglobin (Reticulocytes) [Entitic mass] 35.9 pg High 30-35 [facility] Reticulocytes Auto (Bld) [#/ Vol]Ordered By: Shorty Lea on 01-19-2025 Reticulocytes/100 RBC (Bld) 0.26 % Low 0.5-1.5 [facility] Serum or plasma creatine kin ase activityOrdered By: iMlagro Sanders on 01-19-2025 CK [Catalytic activity/Vol] 19 U/L Low 24-195 [facility] Serum or plasma ethanol ed urement (mass/volume)Ordered By: Milagro Sanders on 01-19-2025 Ethanol [Mass/Vol] mg/dL <10.1 [facility] Comment on above: This test is for med ical purposes only. The legal definition of intoxication varies according to local law. Squamous epithelial cells de tection in urine sediment by light microscopyOrdered By: Milagro Sanders on 01-19-2025 Epithelial cells.squamous LM Ql (Urine sed) 0-5 SEEN /hpf 0-5 [facility] Stool Occult Blood iFOBon STOB Normal [facility] Comment on above: Performed By: #### B ODALYS VELASQUEZ, M100.7900 ####[facility] [address] [place], [place], [phone] Stool gastrointestinal hemog lobin detection by immunologic methodOrdered By: Milagro Sanders on 01-19-2025 Lower GI hemoglobin IA Ql (Stl) [facility] Type AND Screenon 01-19-2025 ABO and Rh group Nom (Bld) Blood group A Rh(D) positive Normal [facility] Comment on above: Order Comment: CMV N EG? NNumber of units to transfuse: 2Is pt's Hgb is = to 7.0 mg/dl or Hct </= 21%? YReason for Ordering Blood: ChronicAre the blood/blood products to be transfused? YIs the patient having/had surgery? NWgenna [place] Performed By: #### B ODALYS VELASQUEZ, M100.7900 ####[facility] [address] [place], [address] Urinalysis, Completeon 01-19 EPI,SQUAMOUS 0-5 SEEN Normal 0-5 [facility] Comment on above: Order Comment: CLEAN CATCH Performed By: #### L 400.0001 ####[facility] [address] [place], [address] BACTERIA 0 SEEN Normal None Seen [facility] Comment on above: Order Comment: CLEAN CATCH Performed By: #### L 400.0001 ####[facility] [address] [place], [address] Mucus Ql (Urine sed) 0 SEEN Normal [facility] Comment on above: Order Comment: CLEAN CATCH Performed By: #### L 400.0001 ####[facility] [address] [place], [address] RBC 0 SEEN Normal 0-5 [facility] Comment on above: Order Comment: CLEAN CATCH Performed By: #### L 400.0001 ####[facility] [address] [place], [address] WBC 0 SEEN Normal 0-5 [facility] Comment on above: Order Comment: CLEAN CATCH Performed By: #### L 400.0001 ####[facility] [address] [place], [place], [phone] Urine clarityOrdered By: Brisa Sanders on 01-19-2025 Clarity (U) Clear Clear [facility] Urine color determinationOrd ered By: Milagro Sanders on 01-19-2025 Color (U) Yellow Yellow [facility] Urine glucose detectionOrder ed By: Milagro Sanders on 01-19-2025 Glucose Ql (U) Normal mg/dl Normal [facility] Urine leukocyte esterase det ection by dipstickOrdered By: Milagro Sanders on 01-19-2025 Leukocyte esterase Test strip Ql (U) Negative Negative [facility] Urine pHOrdered By: Milagro juárez on 01-19-2025 pH (U) 7.0 [pH] 5.0 - 8.0 [facility] Urine sediment bacteria coun t by microscopy (number/high power field)Ordered By: Milagro Sanders on 01-19-2025 Bacteria LM.HPF (Urine sed) [#/Area] 0 /[HPF] None Seen [facility] Urine specific gravity measu rementOrdered By: Milagro Sanders on 01-19-2025 Specific gravity (U) [Rel density] 1.005 1.002-1.030 [facility] Urine urobilinogen measureme ntOrdered By: Milagro Sanders on 01-19-2025 Urobilinogen Ql (U) 1 mg/dl High Normal [facility] Venous Blood Gason 5 Blood Gas Type SAGRARIO Normal [facility] Comment on above: Performed By: #### L 9000.0810 ####[facility] [address] [place], [address] CO2 [Moles/Vol] 17 mmol/L Low 23-33 [facility] Comment on above: Performed By: #### L 9000.0810 ####[facility] [address] [place], [address] HCO3 (Bld) [Moles/Vol] 16 mmol/L Low 22-26 [facility] Comment on above: Performed By: #### L 9000.0810 ####[facility] [address] [place], [address] O2 Delivery Dev Not entered [facility] Comment on above: Performed By: #### L 9000.0810 ####[facility] [address] [place], [address] SITE Not entered [facility] Comment on above: Performed By: #### L 9000.0810 ####[facility] [address] [place], [address] VBG BE -10 mmol/L Low -1.0-3.5 [facility] Comment on above: Performed By: #### L 9000.0810 ####[facility] [address] [place], [address] VBG pCO2 26.8 mmHg Low 41-51 [facility] Comment on above: Performed By: #### L 9000.0810 ####[facility] [address] [place], [address] VBG pH 7.38 Normal 7.32-7.42 [facility] Comment on above: Performed By: #### L 9000.0810 ####[facility] [address] [place], [address] VBG PO2 81 mmHg High 25-40 [facility] Comment on above: Performed By: #### L 9000.0810 ####[facility] [address] [place], [address] VBG SO2 96 High 50-70 [facility] Comment on above: Performed By: #### L 9000.0810 ####[facility] [address] [place], [place], [address] Venous blood base excess poly surementOrdered By: Milagro Sanders on 01-19-2025 Base excess Calc (BldV) [Moles/Vol] -10 mmol/L Low -1.0-3.5 [facility] Venous blood bicarbonate poly surementOrdered By: Milagro Sanders on 01-19-2025 HCO3 (Bld) [Moles/Vol] 16 mmol/L Low 22-26 [facility] Venous blood oxygen saturati on measurementOrdered By: Milagro Sanders on 01-19-2025 Oxygen saturation in Blood 96 % High 50-70 [facility] Venous blood pH measurementO rdered By: Milagro Sanders on 01-19-2025 pH (BldV) 7.38 [pH] 7.32-7.42 [facility] Venous blood partial pressur e of carbon dioxide measurementOrdered By: Milagro Sanders on 01-19-2025 CO2 (BldV) [Partial pressure] 26.8 mm[Hg] Low 41-51 [facility] Venous blood partial pressur e of oxygen measurementOrdered By: Milagro Sanders on 01-19-2025 Oxygen (BldV) [Partial pressure] 81 mm[Hg] High 25-40 [facility] White blood cell countOrdere d By: Milagro Sanders on 01-19-2025 White blood cell count 0 SEEN /hpf 0-5 [facility] OT Functional Capacity Evalo n 10-05-2024 OT Functional Capacity Eval Normal [facility] OT Functional Capacity Eval Normal [facility] CBC W/Diff, Automatedon 12-1 Absolute Lymph 1.10 X10 3/uL Normal 0.83-4.51 [facility] Comment on above: Performed By: #### L 500.4050, L501.9520, L100.0100, L500.4100 ####[facility] [address] [place], [address] Absolute Neut 3.1 X10 3/uL Normal 2.0-7.7 [facility] Comment on above: Performed By: #### L 500.4050, L501.9520, L100.0100, L500.4100 ####[facility] [address] [place], [address] Basophils/100 WBC (Bld) 0.6 % Normal 0-1 [facility] Comment on above: Performed By: #### L 500.4050, L501.9520, L100.0100, L500.4100 ####[facility] [address] [place], [address] Eosinophils/100 WBC (Bld) 4.8 % Normal 0-5 [facility] Comment on above: Performed By: #### L 500.4050, L501.9520, L100.0100, L500.4100 ####[facility] [address] [place], [address] Erythrocyte distribution width (RBC) [Ratio] 13.2 % Normal 11.6-14.6 [facility] Comment on above: Performed By: #### L 500.4050, L501.9520, L100.0100, L500.4100 ####[facility] [address] [place], [address] Hematocrit (Bld) [Volume fraction] 26.6 % Low 40-54 [facility] Comment on above: Performed By: #### L 500.4050, L501.9520, L100.0100, L500.4100 ####[facility] [address] [place], [address] Hemoglobin (Bld) [Mass/Vol] 9.5 g/dL Low 13.0-16.5 [facility] Comment on above: Performed By: #### L 500.4050, L501.9520, L100.0100, L500.4100 ####[facility] [address] [place], [address] IG% 0.600 Normal 0.0-0.9 [facility] Comment on above: Result Comment: IG% - Immature Granulocytes (promyelocytes, myelocytes andmetamyelocytes) > 1% indicates that a LEFT SHIFT is Present. Performed By: #### L 500.4050, L501.9520, L100.0100, L500.4100 ####[facility] [address] [place], [address] Lymphocytes/100 WBC (Bld) 22.2 % Normal 19-41 [facility] Comment on above: Performed By: #### L 500.4050, L501.9520, L100.0100, L500.4100 ####[facility] [address] [place], [address] MCH (RBC) [Entitic mass] 34.7 pg High 27.0-32.0 [facility] Comment on above: Performed By: #### L 500.4050, L501.9520, L100.0100, L500.4100 ####[facility] [address] [place], [address] MCHC (RBC) [Mass/Vol] 35.7 g/dL Normal 32-36 [facility] Comment on above: Performed By: #### L 500.4050, L501.9520, L100.0100, L500.4100 ####[facility] [address] [place], [address] MCV (RBC) [Entitic vol] 97.1 fL High 80-94 [facility] Comment on above: Performed By: #### L 500.4050, L501.9520, L100.0100, L500.4100 ####[facility] [address] [place], [address] Monocytes/100 WBC (Bld) 9.3 % Normal 0-[address] [facility] Comment on above: Performed By: #### L 500.4050, L501.9520, L100.0100, L500.4100 ####[facility] [address] [place], [address] Neutrophils/100 WBC (Bld) 62.5 % Normal 47-70 [facility] Comment on above: Performed By: #### L 500.4050, L501.9520, L100.0100, L500.4100 ####[facility] [address] [place], [address] Nucleated RBC (Bld) [#/Vol] 0 10*3/uL Normal 0-5 [facility] Comment on above: Performed By: #### L 500.4050, L501.9520, L100.0100, L500.4100 ####[facility] [address] [place], [address] Platelet mean volume (Bld) [Entitic vol] 9.1 fL Normal 6.2-12.0 [facility] Comment on above: Performed By: #### L 500.4050, L501.9520, L100.0100, L500.4100 ####[facility] [address] [place], [address] Platelets (Bld) [#/Vol] 143 10*3/uL Low 150-450 [facility] Comment on above: Performed By: #### L 500.4050, L501.9520, L100.0100, L500.4100 ####[facility] [address] [place], [address] RBC (Bld) [#/Vol] 2.74 10*6/uL Low 4.6-6.2 [facility] Comment on above: Performed By: #### L 500.4050, L501.9520, L100.0100, L500.4100 ####[facility] [address] [place], [address] RDW SD 46.3 fl High 35.1-43.9 [facility] Comment on above: Performed By: #### L 500.4050, L501.9520, L100.0100, L500.4100 ####[facility] [address] [place], [address] WBC (Bld) [#/Vol] 5.0 10*3/uL Normal 4.4-11.0 [facility] Comment on above: Performed By: #### L 500.4050, L501.9520, L100.0100, L500.4100 ####[facility] [address] [place], [address] Comprehensive Metabolic [facility] 08-30-2024 Albumin [Mass/Vol] 3.8 g/dL Normal 3.2-5.0 [facility] Comment on above: Performed By: #### L 500.4050, L501.9520, L100.0100, L500.4100 ####[facility] [address] [place], [address] Albumin/Globulin [Mass ratio] 1.1 {ratio} Normal 0.9-2.4 [facility] Comment on above: Performed By: #### L 500.4050, L501.9520, L100.0100, L500.4100 ####[facility] [address] [place], [address] ALK P 84 U/L Normal 45-117 [facility] Comment on above: Performed By: #### L 500.4050, L501.9520, L100.0100, L500.4100 ####[facility] [address] [place], [address] ALT [Catalytic activity/Vol] 26 U/L Normal 16-61 [facility] Comment on above: Performed By: #### L 500.4050, L501.9520, L100.0100, L500.4100 ####[facility] [address] [place], [address] AST [Catalytic activity/Vol] 25 U/L Normal 15-37 [facility] Comment on above: Performed By: #### L 500.4050, L501.9520, L100.0100, L500.4100 ####[facility] [address] [place], [address] Bilirubin [Mass/Vol] 0.30 mg/dL Normal 0.20-1.00 [facility] Comment on above: Result Comment: For patients on eltrombopag therapy, use of Dimension Lamar TBIL is not recommended. Performed By: #### L 500.4050, L501.9520, L100.0100, L500.4100 ####[facility] [address] [place], [address] BUN/CRE 10.8 RATIO Normal 10-20 [facility] Comment on above: Performed By: #### L 500.4050, L501.9520, L100.0100, L500.4100 ####[facility] [address] [place], [address] CA,Total 8.4 mg/dL Low 8.5-10.1 [facility] Comment on above: Performed By: #### L 500.4050, L501.9520, L100.0100, L500.4100 ####[facility] [address] [place], [address] Chloride [Moles/Vol] 94 mmol/L Low 98-107 [facility] Comment on above: Performed By: #### L 500.4050, L501.9520, L100.0100, L500.4100 ####[facility] [address] [place], [address] CO2 [Moles/Vol] 21.0 mmol/L Normal 21.0-32.0 [facility] Comment on above: Performed By: #### L 500.4050, L501.9520, L100.0100, L500.4100 ####[facility] [address] [place], [address] Creatinine [Mass/Vol] 1.02 mg/dL Normal 0.70-1.30 [facility] Comment on above: Result Comment: The validity of the calculated GFR GFRAA in patients over70 years has not been determined. Clinical correlation isessential. Performed By: #### L 500.4050, L501.9520, L100.0100, L500.4100 ####[facility] [address] [place], [address] EST GFR - AA 95 mL/min Normal >60 [facility] Comment on above: Result Comment: Afri can Kosovan GFR Calc Performed By: #### L 500.4050, L501.9520, L100.0100, L500.4100 ####[facility] [address] [place], [address] GAP 11 Normal 5-15 [facility] Comment on above: Performed By: #### L 500.4050, L501.9520, L100.0100, L500.4100 ####[facility] [address] [place], [address] GFR/1.73 sq M.predicted among non-blacks MDRD (S/P/Bld) [Vol rate/Area] 78 mL/min/{1.73_m2} Normal >60 [facility] Comment on above: Result Comment: Non- GFR Calc Performed By: #### L 500.4050, L501.9520, L100.0100, L500.4100 ####[facility] [address] [place], [address] Globulin (S) [Mass/Vol] 3.4 g/dL Normal 2.2-4.2 [facility] Comment on above: Performed By: #### L 500.4050, L501.9520, L100.0100, L500.4100 ####[facility] [address] [place], [address] Glucose [Mass/Vol] 96 mg/dL Normal 74-106 [facility] Comment on above: Performed By: #### L 500.4050, L501.9520, L100.0100, L500.4100 ####[facility] [address] [place], [address] Potassium [Moles/Vol] 4.1 mmol/L Normal 3.5-5.1 [facility] Comment on above: Performed By: #### L 500.4050, L501.9520, L100.0100, L500.4100 ####[facility] [address] [place], [address] Sodium [Moles/Vol] 126 mmol/L Low 136-145 [facility] Comment on above: Performed By: #### L 500.4050, L501.9520, L100.0100, L500.4100 ####[facility] [address] [place], [address] T PROT 7.2 g/dL Normal 6.4-8.2 [facility] Comment on above: Performed By: #### L 500.4050, L501.9520, L100.0100, L500.4100 ####[facility] [address] [place], [address] Urea nitrogen [Mass/Vol] 11 mg/dL Normal 7-18 [facility] Comment on above: Performed By: #### L 500.4050, L501.9520, L100.0100, L500.4100 ####[facility] [address] [place], [address] Lipid Profileon 08-30-2024 Cholesterol [Mass/Vol] 143 mg/dL Normal 200 [facility] Comment on above: Result Comment: <200 mg/dL Desirable 200-240 mg/dL Borderline >240 mg/dL High Risk Performed By: #### L 500.4050, L501.9520, L100.0100, L500.4100 ####[facility] [address] [place], [address] Cholesterol in HDL [Mass/Vol] 106 mg/dL Normal [facility] Comment on above: Result Comment: The drugs N-Acetylcysteine and Metamizole may falselydepress this assay. Reference Range HDL <40 mg/dL Low HDL Cholesterol HDL >or= 60 mg/dL High HDL Cholesterol Performed By: #### L 500.4050, L501.9520, L100.0100, L500.4100 ####[facility] [address] [place], [address] Cholesterol in LDL [Mass/Vol] 25 mg/dL Normal 0-130 [facility] Comment on above: Performed By: #### L 500.4050, L501.9520, L100.0100, L500.4100 ####[facility] [address] [place], [address] Cholesterol in VLDL [Mass/Vol] 12 mg/dL Normal 5-40 [facility] Comment on above: Performed By: #### L 500.4050, L501.9520, L100.0100, L500.4100 ####[facility] [address] [place], [address] Triglyceride [Mass/Vol] 59 mg/dL Normal [facility] Comment on above: Result Comment: The drugs N-Acetylcysteine and Metamizole may falselydepress this assay.Serum Triglycerides Reference Interval Normal <150 mg/dL Borderline high 150 - 199 mg/dL High 200 - 499 mg/dL Very High > or = 500 mg/dL Performed By: #### L 500.4050, L501.9520, L100.0100, L500.4100 ####[facility] [address] [place], [address] Thyroid Stim Hormone (TSH)on 08-30-2024 TSH 2.680 uIU/mL Normal 0.358-3.740 [facility] Comment on above: Performed By: #### L 500.4050, L501.9520, L100.0100, L500.4100 ####[facility] [address] [place], [address] CBC W/Diff, Automatedon 08-1 Absolute Lymph 0.98 X10 3/uL Normal 0.83-4.51 [facility] Comment on above: Performed By: #### L 100.0100 ####[facility] [address] [place], [address] Absolute Neut 2.5 X10 3/uL Normal 2.0-7.7 [facility] Comment on above: Performed By: #### L 100.0100 ####[facility] [address] [place], [address] Basophils/100 WBC (Bld) 0.5 % Normal 0-1 [facility] Comment on above: Performed By: #### L 100.0100 ####[facility] [address] [place], [address] Eosinophils/100 WBC (Bld) 5.3 % High 0-5 [facility] Comment on above: Performed By: #### L 100.0100 ####[facility] [address] [place], [address] Erythrocyte distribution width (RBC) [Ratio] 16.2 % High 11.6-14.6 [facility] Comment on above: Performed By: #### L 100.0100 ####[facility] [address] [place], [address] Hematocrit (Bld) [Volume fraction] 23.3 % Low 40-54 [facility] Comment on above: Performed By: #### L 100.0100 ####[facility] [address] [place], [address] Hemoglobin (Bld) [Mass/Vol] 7.8 g/dL Low 13.0-16.5 [facility] Comment on above: Performed By: #### L 100.0100 ####[facility] [address] [place], [address] IG% 1.000 High 0.0-0.9 [facility] Comment on above: Result Comment: IG% - Immature Granulocytes (promyelocytes, myelocytes andmetamyelocytes) > 1% indicates that a LEFT SHIFT is Present. Performed By: #### L 100.0100 ####[facility] [address] [place], [address] Lymphocytes/100 WBC (Bld) 23.7 % Normal 19-41 [facility] Comment on above: Performed By: #### L 100.0100 ####[facility] [address] [place], [address] MCH (RBC) [Entitic mass] 30.5 pg Normal 27.0-32.0 [facility] Comment on above: Performed By: #### L 100.0100 ####[facility] [address] [place], [address] MCHC (RBC) [Mass/Vol] 33.5 g/dL Normal 32-36 [facility] Comment on above: Performed By: #### L 100.0100 ####[facility] [address] [place], [address] MCV (RBC) [Entitic vol] 91.0 fL Normal 80-94 [facility] Comment on above: Performed By: #### L 100.0100 ####[facility] [address] [place], [address] Monocytes/100 WBC (Bld) 8.2 % Normal 0-10 [facility] Comment on above: Performed By: #### L 100.0100 ####[facility] [address] [place], [address] Neutrophils/100 WBC (Bld) 61.3 % Normal 47-70 [facility] Comment on above: Performed By: #### L 100.0100 ####[facility] [address] [place], [address] Nucleated RBC (Bld) [#/Vol] 0 10*3/uL Normal 0-5 [facility] Comment on above: Performed By: #### L 100.0100 ####[facility] [address] [place], [address] Platelet mean volume (Bld) [Entitic vol] 8.9 fL Normal 6.2-12.0 [facility] Comment on above: Performed By: #### L 100.0100 ####[facility] [address] [place], [address] Platelets (Bld) [#/Vol] 156 10*3/uL Normal 150-450 [facility] Comment on above: Performed By: #### L 100.0100 ####[facility] [address] [place], [address] RBC (Bld) [#/Vol] 2.56 10*6/uL Low 4.6-6.2 [facility] Comment on above: Performed By: #### L 100.0100 ####[facility] [address] [place], [address] RDW SD 52.7 fl High 35.1-43.9 [facility] Comment on above: Performed By: #### L 100.0100 ####[facility] [address] [place], [address] WBC (Bld) [#/Vol] 4.1 10*3/uL Low 4.4-11.0 [facility] Comment on above: Performed By: #### L 100.0100 ####[facility] [address] [place], [address] Celiac AB,Comprehensiveon ANTIGLIADIN IGA 45 units Abnormal 0-19 [facility] Comment on above: Result Comment: Nega tive 0 - 19 Weak Positive 20 - 30 Moderate to Strong Positive >30 Performed By: #### L 3100.1850, L3100.3425, L3410.2350, L500.3400, L504.2610 ####[facility] [address] [place], [address] ANTIGLIADIN IGG 2 units Normal 0-19 [facility] Comment on above: Result Comment: Nega tive 0 - 19 Weak Positive 20 - 30 Moderate to Strong Positive >30 Performed By: #### L 3100.1850, L3100.3425, L3410.2350, L500.3400, L504.2610 ####[facility] [address] [place], [address] ENDOMYSIAL IGA Negative Normal Negative [facility] Comment on above: Performed By: #### L 3100.1850, L3100.3425, L3410.2350, L500.3400, L504.2610 ####[facility] [address] [place], [place], [address] tTG IGA <2 Normal 0-3 [facility] Comment on above: Result Comment: Nega tive 0 - 3 Weak Positive 4 - 10 Positive >10 Tissue Transglutaminase (tTG) has been identified as the endomysial antigen. Studies have demonstr- ated that endomysial IgA antibodies have over 99% specificity for gluten sensitive enteropathy. Performed By: #### L 3100.1850, L3100.3425, L3410.2350, L500.3400, L504.2610 ####[facility] [address] [place], [address] tTG IGG 3 U/mL Normal 0-5 [facility] Comment on above: Result Comment: Nega tive 0 - 5 Weak Positive 6 - 9 Positive >9 Performed By: #### L 3100.1850, L3100.3425, L3410.2350, L500.3400, L504.2610 ####[facility] [address] [place], [address] Haptoglobinon 04-27-2024 HAPTOGLOBIN 157 mg/dL Normal 32-363 [facility] Comment on above: Result Comment: Perf ormed at: - [facility] [id number] Director: Harrison Villareal PhD, Phone: [phone] Performed By: #### L 3100.1850, L3100.3425, L3410.2350, L500.3400, L504.2610 ####[facility] [address] [place], [address] ELY + Protein Elect, Serumon 04-27-2024 Albumin [Mass/Vol] 2.9 g/dL Normal 2.9-4.4 [facility] Comment on above: Performed By: #### L 3100.1850, L3100.3425, L3410.2350, L500.3400, L504.2610 ####[facility] [address] [place], [address] Albumin/Globulin [Mass ratio] 1.2 {ratio} Normal 0.7-1.7 [facility] Comment on above: Performed By: #### L 3100.1850, L3100.3425, L3410.2350, L500.3400, L504.2610 ####[facility] [address] [place], [address] SWXVO-5-OOGQ 0.3 g/dL Normal 0.0-0.4 [facility] Comment on above: Performed By: #### L 3100.1850, L3100.3425, L3410.2350, L500.3400, L504.2610 ####[facility] [address] [place], [address] IPGZJ-5-WSLH 0.7 g/dL Normal 0.4-1.0 [facility] Comment on above: Performed By: #### L 3100.1850, L3100.3425, L3410.2350, L500.3400, L504.2610 ####[facility] [address] [place], [address] BETA GLOBULIN 0.7 g/dL Normal 0.7-1.3 [facility] Comment on above: Performed By: #### L 3100.1850, L3100.3425, L3410.2350, L500.3400, L504.2610 ####[facility] [address] [place], [address] GAMMA GLOBULIN 1.0 g/dL Normal 0.4-1.8 [facility] Comment on above: Performed By: #### L 3100.1850, L3100.3425, L3410.2350, L500.3400, L504.2610 ####[facility] [address] [place], [address] Globulin (S) [Mass/Vol] 2.6 g/dL Normal 2.2-3.9 [facility] Comment on above: Performed By: #### L 3100.1850, L3100.3425, L3410.2350, L500.3400, L504.2610 ####[facility] [address] [place], [address] ELY RESULT,S Comment Normal . [facility] Comment on above: Result Comment: No m onoclonality detected. Performed By: #### L 3100.1850, L3100.3425, L3410.2350, L500.3400, L504.2610 ####[facility] [address] [place], [address] IMMUNOGLOB A QN 295 mg/dL Normal 61-437 [facility] Comment on above: Performed By: #### L 3100.1850, L3100.3425, L3410.2350, L500.3400, L504.2610 ####[facility] [address] [place], [address] IMMUNOGLOB G QN 1111 mg/dL Normal 603-1613 [facility] Comment on above: Performed By: #### L 3100.1850, L3100.3425, L3410.2350, L500.3400, L504.2610 ####[facility] [address] [place], [address] IMMUNOGLOB M QN 85 mg/dL Normal 20-172 [facility] Comment on above: Performed By: #### L 3100.1850, L3100.3425, L3410.2350, L500.3400, L504.2610 ####[facility] [address] [place], [address] M-Reyes Not Observed Normal Not Observed [facility] Comment on above: Performed By: #### L 3100.1850, L3100.3425, L3410.2350, L500.3400, L504.2610 ####[facility] [address] [place], [address] NOTE: Comment Normal . [facility] Comment on above: Result Comment: Prot ein electrophoresis scan will follow via computer,mail, or cooker tender delivery. Performed By: #### L 3100.1850, L3100.3425, L3410.2350, L500.3400, L504.2610 ####[facility] [address] [place], [address] Protein [Mass/Vol] 5.5 g/dL Low 6.0-8.5 [facility] Comment on above: Performed By: #### L 3100.1850, L3100.3425, L3410.2350, L500.3400, L504.2610 ####[facility] [address] [place], [address] Discharge Instructionon 04-15 Discharge Instruction Normal [facility] Basic Metabolic Profile (BMP )on 04-25-2024 BUN/CRE 5.7 RATIO Low 10-20 [facility] Comment on above: Performed By: #### L 500.2500, L100.0100 ####[facility] [address] [place], [address] CA,Total 7.6 mg/dL Low 8.5-10.1 [facility] Comment on above: Performed By: #### L 500.2500, L100.0100 ####[facility] [address] [place], [address] Chloride [Moles/Vol] 106 mmol/L Normal 98-107 [facility] Comment on above: Performed By: #### L 500.2500, L100.0100 ####[facility] [address] [place], [address] CO2 [Moles/Vol] 20.0 mmol/L Low 21.0-32.0 [facility] Comment on above: Performed By: #### L 500.2500, L100.0100 ####[facility] [address] [place], [address] Creatinine [Mass/Vol] 0.88 mg/dL Normal 0.70-1.30 [facility] Comment on above: Result Comment: The validity of the calculated GFR GFRAA in patients over70 years has not been determined. Clinical correlation isessential. Performed By: #### L 500.2500, L100.0100 ####[facility] [address] [place], [address] ECRCL 68.54 ml/min Normal [facility] Comment on above: Performed By: #### L 500.2500, L100.0100 ####[facility] [address] [place], [address] EST GFR - AA 113 mL/min Normal >60 [facility] Comment on above: Result Comment: Afri can Kosovan GFR Calc Performed By: #### L 500.2500, L100.0100 ####[facility] [address] [place], [address] GAP 9 Normal 5-15 [facility] Comment on above: Performed By: #### L 500.2500, L100.0100 ####[facility] [address] [place], [address] GFR/1.73 sq M.predicted among non-blacks MDRD (S/P/Bld) [Vol rate/Area] 93 mL/min/{1.73_m2} Normal >60 [facility] Comment on above: Result Comment: Non- GFR Calc Performed By: #### L 500.2500, L100.0100 ####[facility] [address] [place], [address] Glucose [Mass/Vol] 102 mg/dL Normal 74-106 [facility] Comment on above: Result Comment: Fast ing Glucose result from 100 to 125 mg/dLsuggests IMPAIRED HOMEOSTASIS per A.D.A. criteria. Performed By: #### L 500.2500, L100.0100 ####[facility] [address] [place], [address] Potassium [Moles/Vol] 3.8 mmol/L Normal 3.5-5.1 [facility] Comment on above: Performed By: #### L 500.2500, L100.0100 ####[facility] [address] [place], [address] Sodium [Moles/Vol] 135 mmol/L Low 136-145 [facility] Comment on above: Performed By: #### L 500.2500, L100.0100 ####[facility] [address] [place], [address] Urea nitrogen [Mass/Vol] 5 mg/dL Low 7-18 [facility] Comment on above: Performed By: #### L 500.2500, L100.0100 ####[facility] [address] [place], [address] CBC W/Diff, Automatedon 04-15 Absolute Lymph 1.05 X10 3/uL Normal 0.83-4.51 [facility] Comment on above: Performed By: #### L 500.2500, L100.0100 ####[facility] [address] [place], [address] Absolute Neut 2.7 X10 3/uL Normal 2.0-7.7 [facility] Comment on above: Performed By: #### L 500.2500, L100.0100 ####[facility] [address] [place], [address] Basophils/100 WBC (Bld) 0.7 % Normal 0-1 [facility] Comment on above: Performed By: #### L 500.2500, L100.0100 ####[facility] [address] [place], [address] Eosinophils/100 WBC (Bld) 5.1 % High 0-5 [facility] Comment on above: Performed By: #### L 500.2500, L100.0100 ####[facility] [address] [place], [address] Erythrocyte distribution width (RBC) [Ratio] 15.5 % High 11.6-14.6 [facility] Comment on above: Performed By: #### L 500.2500, L100.0100 ####[facility] [address] [place], [address] Hematocrit (Bld) [Volume fraction] 25.9 % Low 40-54 [facility] Comment on above: Performed By: #### L 500.2500, L100.0100 ####[facility] [address] [place], [address] Hemoglobin (Bld) [Mass/Vol] 8.8 g/dL Low 13.0-16.5 [facility] Comment on above: Performed By: #### L 500.2500, L100.0100 ####[facility] [address] [place], [address] IG% 2.000 High 0.0-0.9 [facility] Comment on above: Result Comment: IG% - Immature Granulocytes (promyelocytes, myelocytes andmetamyelocytes) > 1% indicates that a LEFT SHIFT is Present. Performed By: #### L 500.2500, L100.0100 ####[facility] [address] [place], [address] Lymphocytes/100 WBC (Bld) 23.3 % Normal 19-41 [facility] Comment on above: Performed By: #### L 500.2500, L100.0100 ####[facility] [address] [place], [address] MCH (RBC) [Entitic mass] 30.3 pg Normal 27.0-32.0 [facility] Comment on above: Performed By: #### L 500.2500, L100.0100 ####[facility] [address] [place], [address] MCHC (RBC) [Mass/Vol] 34.0 g/dL Normal 32-36 [facility] Comment on above: Performed By: #### L 500.2500, L100.0100 ####[facility] [address] [place], [address] MCV (RBC) [Entitic vol] 89.3 fL Normal 80-[address] [facility] Comment on above: Performed By: #### L 500.2500, L100.0100 ####[facility] [address] [place], [address] Monocytes/100 WBC (Bld) 8.2 % Normal 0-[address] [facility] Comment on above: Performed By: #### L 500.2500, L100.0100 ####[facility] [address] [place], [address] Neutrophils/100 WBC (Bld) 60.7 % Normal 47-70 [facility] Comment on above: Performed By: #### L 500.2500, L100.0100 ####[facility] [address] [place], [address] Nucleated RBC (Bld) [#/Vol] 0 10*3/uL Normal 0-5 [facility] Comment on above: Performed By: #### L 500.2500, L100.0100 ####[facility] [address] [place], [address] Platelet mean volume (Bld) [Entitic vol] 8.7 fL Normal 6.2-12.0 [facility] Comment on above: Performed By: #### L 500.2500, L100.0100 ####[facility] [address] [place], [address] Platelets (Bld) [#/Vol] 157 10*3/uL Normal 150-450 [facility] Comment on above: Performed By: #### L 500.2500, L100.0100 ####[facility] [address] [place], [address] RBC (Bld) [#/Vol] 2.90 10*6/uL Low 4.6-6.2 [facility] Comment on above: Performed By: #### L 500.2500, L100.0100 ####[facility] [address] [place], [address] RDW SD 50.3 fl High 35.1-43.9 [facility] Comment on above: Performed By: #### L 500.2500, L100.0100 ####[facility] [address] [place], [address] WBC (Bld) [#/Vol] 4.5 10*3/uL Normal 4.4-11.0 [facility] Comment on above: Performed By: #### L 500.2500, L100.0100 ####[facility] [address] [place], [address] HH, Hemoglobin AND Hematocri ton 04-25-2024 Hematocrit (Bld) [Volume fraction] 25.8 % Low 40-54 [facility] Comment on above: Performed By: #### L 100.0600 ####[facility] [address] [place], [address] Hemoglobin (Bld) [Mass/Vol] 8.9 g/dL Low 13.0-16.5 [facility] Comment on above: Performed By: #### L 100.0600 ####[facility] [address] [place], [address] Abdomen/Pelvis WITH Contrast on 04-24-2024 Abdomen/Pelvis WITH Contrast Normal [facility] [id number] 04-24-2024 DIRECT JAIME NEG w/POLYSPECIFIC Normal NEGATIVE [facility] Comment on above: Performed By: #### B 17664-2 ####[facility] [address] [place], [address] Basic Metabolic Profile (BMP )on 04-24-2024 BUN/CRE 3.7 RATIO Low 10-20 [facility] Comment on above: Performed By: #### L 500.2500, L100.0100 ####[facility] [address] [place], [address] CA,Total 7.5 mg/dL Low 8.5-10.1 [facility] Comment on above: Performed By: #### L 500.2500, L100.0100 ####[facility] [address] [place], [address] Chloride [Moles/Vol] 107 mmol/L Normal 98-107 [facility] Comment on above: Performed By: #### L 500.2500, L100.0100 ####[facility] [address] [place], [address] CO2 [Moles/Vol] 21.0 mmol/L Normal 21.0-32.0 [facility] Comment on above: Performed By: #### L 500.2500, L100.0100 ####[facility] [address] [place], [address] Creatinine [Mass/Vol] 0.80 mg/dL Normal 0.70-1.30 [facility] Comment on above: Result Comment: The validity of the calculated GFR GFRAA in patients over70 years has not been determined. Clinical correlation isessential. Performed By: #### L 500.2500, L100.0100 ####[facility] [address] [place], [address] ECRCL 75.40 ml/min Normal [facility] Comment on above: Performed By: #### L 500.2500, L100.0100 ####[facility] [address] [place], [address] EST GFR - AA 125 mL/min Normal >60 [facility] Comment on above: Result Comment: Afri can Kosovan GFR Calc Performed By: #### L 500.2500, L100.0100 ####[facility] [address] [place], [address] GAP 6 Normal 5-15 [facility] Comment on above: Performed By: #### L 500.2500, L100.0100 ####[facility] [address] [place], [address] GFR/1.73 sq M.predicted among non-blacks MDRD (S/P/Bld) [Vol rate/Area] 104 mL/min/{1.73_m2} Normal >60 [facility] Comment on above: Result Comment: Non- GFR Calc Performed By: #### L 500.2500, L100.0100 ####[facility] [address] [place], [address] Glucose [Mass/Vol] 88 mg/dL Normal 74-106 [facility] Comment on above: Performed By: #### L 500.2500, L100.0100 ####[facility] [address] [place], [address] Potassium [Moles/Vol] 3.6 mmol/L Normal 3.5-5.1 [facility] Comment on above: Performed By: #### L 500.2500, L100.0100 ####[facility] [address] [place], [address] Sodium [Moles/Vol] 134 mmol/L Low 136-145 [facility] Comment on above: Performed By: #### L 500.2500, L100.0100 ####[facility] [address] [place], [address] Urea nitrogen [Mass/Vol] 3 mg/dL Low 7-18 [facility] Comment on above: Performed By: #### L 500.2500, L100.0100 ####[facility] [address] [place], [address] CBC W/Diff, Automatedon 04-15 0-2023 Absolute Lymph 1.00 X10 3/uL Normal 0.83-4.51 [facility] Comment on above: Performed By: #### L 500.2500, L100.0100 ####[facility] [address] [place], [address] Absolute Neut 2.7 X10 3/uL Normal 2.0-7.7 [facility] Comment on above: Performed By: #### L 500.2500, L100.0100 ####[facility] [address] [place], [address] Basophils/100 WBC (Bld) 0.2 % Normal 0-1 [facility] Comment on above: Performed By: #### L 500.2500, L100.0100 ####[facility] [address] [place], [address] Eosinophils/100 WBC (Bld) 4.3 % Normal 0-5 [facility] Comment on above: Performed By: #### L 500.2500, L100.0100 ####[facility] [address] [place], [address] Erythrocyte distribution width (RBC) [Ratio] 15.7 % High 11.6-14.6 [facility] Comment on above: Performed By: #### L 500.2500, L100.0100 ####[facility] [address] [place], [address] Hematocrit (Bld) [Volume fraction] 19.7 % Low 40-54 [facility] Comment on above: Performed By: #### L 500.2500, L100.0100 ####[facility] [address] [place], [address] Hemoglobin (Bld) [Mass/Vol] 6.9 g/dL Low 13.0-16.5 [facility] Comment on above: Performed By: #### L 500.2500, L100.0100 ####[facility] [address] [place], [address] IG% 1.200 High 0.0-0.9 [facility] Comment on above: Result Comment: IG% - Immature Granulocytes (promyelocytes, myelocytes andmetamyelocytes) > 1% indicates that a LEFT SHIFT is Present. Performed By: #### L 500.2500, L100.0100 ####[facility] [address] [place], [address] Lymphocytes/100 WBC (Bld) 23.9 % Normal 19-41 [facility] Comment on above: Performed By: #### L 500.2500, L100.0100 ####[facility] [address] [place], [address] MCH (RBC) [Entitic mass] 31.2 pg Normal 27.0-32.0 [facility] Comment on above: Performed By: #### L 500.2500, L100.0100 ####[facility] [address] [place], [address] MCHC (RBC) [Mass/Vol] 35.0 g/dL Normal 32-36 [facility] Comment on above: Performed By: #### L 500.2500, L100.0100 ####[facility] [address] [place], [address] MCV (RBC) [Entitic vol] 89.1 fL Normal 80-94 [facility] Comment on above: Performed By: #### L 500.2500, L100.0100 ####[facility] [address] [place], [address] Monocytes/100 WBC (Bld) 6.7 % Normal 0-10 [facility] Comment on above: Performed By: #### L 500.2500, L100.0100 ####[facility] [address] [place], [address] Neutrophils/100 WBC (Bld) 63.7 % Normal 47-70 [facility] Comment on above: Performed By: #### L 500.2500, L100.0100 ####[facility] [address] [place], [address] Nucleated RBC (Bld) [#/Vol] 0 10*3/uL Normal 0-5 [facility] Comment on above: Performed By: #### L 500.2500, L100.0100 ####[facility] [address] [place], [address] Platelet mean volume (Bld) [Entitic vol] 9.4 fL Normal 6.2-12.0 [facility] Comment on above: Performed By: #### L 500.2500, L100.0100 ####[facility] [address] [place], [address] Platelets (Bld) [#/Vol] 145 10*3/uL Low 150-450 [facility] Comment on above: Performed By: #### L 500.2500, L100.0100 ####[facility] [address] [place], [address] RBC (Bld) [#/Vol] 2.21 10*6/uL Low 4.6-6.2 [facility] Comment on above: Performed By: #### L 500.2500, L100.0100 ####[facility] [address] [place], [address] RDW SD 50.0 fl High 35.1-43.9 [facility] Comment on above: Performed By: #### L 500.2500, L100.0100 ####[facility] [address] [place], [address] WBC (Bld) [#/Vol] 4.2 10*3/uL Low 4.4-11.0 [facility] Comment on above: Performed By: #### L 500.2500, L100.0100 ####[facility] [address] [place], [address] LDHon 04-24-2024 LDH 166 U/L Normal 87-241 [facility] Comment on above: Performed By: #### L 3100.1850, L3100.3425, L3410.2350, L500.3400, L504.2610 ####[facility] [address] [place], [address] Liver Profileon 04-24-2024 Albumin [Mass/Vol] 2.6 g/dL Low 3.2-5.0 [facility] Comment on above: Performed By: #### L 3100.1850, L3100.3425, L3410.2350, L500.3400, L504.2610 ####[facility] [address] [place], [address] ALK P 96 U/L Normal 45-117 [facility] Comment on above: Performed By: #### L 3100.1850, L3100.3425, L3410.2350, L500.3400, L504.2610 ####[facility] [address] [place], [address] ALT [Catalytic activity/Vol] 13 U/L Low 16-61 [facility] Comment on above: Performed By: #### L 3100.1850, L3100.3425, L3410.2350, L500.3400, L504.2610 ####[facility] [address] [place], [address] AST [Catalytic activity/Vol] 21 U/L Normal 15-37 [facility] Comment on above: Performed By: #### L 3100.1850, L3100.3425, L3410.2350, L500.3400, L504.2610 ####[facility] [address] [place], [address] Bilirubin [Mass/Vol] 0.40 mg/dL Normal 0.20-1.00 [facility] Comment on above: Result Comment: For patients on eltrombopag therapy, use of Dimension Lamar TBIL is not recommended. Performed By: #### L 3100.1850, L3100.3425, L3410.2350, L500.3400, L504.2610 ####[facility] [address] [place], [address] Bilirubin.direct [Mass/Vol] 0.12 mg/dL Normal 0.00-0.30 [facility] Comment on above: Performed By: #### L 3100.1850, L3100.3425, L3410.2350, L500.3400, L504.2610 ####[facility] [address] [place], [address] Globulin (S) [Mass/Vol] 3.2 g/dL Normal 2.2-4.[address] [facility] Comment on above: Performed By: #### L 3100.1850, L3100.3425, L3410.2350, L500.3400, L504.2610 ####[facility] [address] [place], [address] T PROT 5.8 g/dL Low 6.4-8.2 [facility] Comment on above: Performed By: #### L 3100.1850, L3100.3425, L3410.2350, L500.3400, L504.2610 ####[facility] [address] [place], [address] Basic Metabolic Profile (BMP )on 04-23-2024 BUN/CRE 6.8 RATIO Low 10-20 [facility] Comment on above: Performed By: #### L 100.0100, L500.2500 ####[facility] [address] [place], [address] CA,Total 8.0 mg/dL Low 8.5-10.1 [facility] Comment on above: Performed By: #### L 100.0100, L500.2500 ####[facility] [address] [place], [address] Chloride [Moles/Vol] 104 mmol/L Normal 98-107 [facility] Comment on above: Performed By: #### L 100.0100, L500.2500 ####[facility] [address] [place], [address] CO2 [Moles/Vol] 21.0 mmol/L Normal 21.0-32.0 [facility] Comment on above: Performed By: #### L 100.0100, L500.2500 ####[facility] [address] [place], [address] Creatinine [Mass/Vol] 0.73 mg/dL Normal 0.70-1.30 [facility] Comment on above: Result Comment: The validity of the calculated GFR GFRAA in patients over70 years has not been determined. Clinical correlation isessential. Performed By: #### L 100.0100, L500.2500 ####[facility] [address] [place], [address] ECRCL 82.63 ml/min Normal [facility] Comment on above: Performed By: #### L 100.0100, L500.2500 ####[facility] [address] [place], [address] EST GFR - AA 139 mL/min Normal >60 [facility] Comment on above: Result Comment: Afri can Kosovan GFR Calc Performed By: #### L 100.0100, L500.2500 ####[facility] [address] [place], [address] GAP 8 Normal 5-15 [facility] Comment on above: Performed By: #### L 100.0100, L500.2500 ####[facility] [address] [place], [address] GFR/1.73 sq M.predicted among non-blacks MDRD (S/P/Bld) [Vol rate/Area] 115 mL/min/{1.73_m2} Normal >60 [facility] Comment on above: Result Comment: Non- GFR Calc Performed By: #### L 100.0100, L500.2500 ####[facility] [address] [place], [address] Glucose [Mass/Vol] 91 mg/dL Normal 74-106 [facility] Comment on above: Performed By: #### L 100.0100, L500.2500 ####[facility] [address] [place], [address] Potassium [Moles/Vol] 3.3 mmol/L Low 3.5-5.1 [facility] Comment on above: Performed By: #### L 100.0100, L500.2500 ####[facility] [address] [place], [address] Sodium [Moles/Vol] 133 mmol/L Low 136-145 [facility] Comment on above: Performed By: #### L 100.0100, L500.2500 ####[facility] [address] [place], [address] Urea nitrogen [Mass/Vol] 5 mg/dL Low 7-18 [facility] Comment on above: Performed By: #### L 100.0100, L500.2500 ####[facility] [address] [place], [address] BUN Normal 7-18 [facility] Comment on above: Result Comment: DUPL ICATE ORDER Performed By: #### L 500.2500, L100.0100 ####[facility] [address] [place], [address] BUN/CRE Normal 10-20 [facility] Comment on above: Result Comment: DUPL ICATE ORDER Performed By: #### L 500.2500, L100.0100 ####[facility] [address] [place], [address] CA,Total Normal 8.5-10.1 [facility] Comment on above: Result Comment: DUPL ICATE ORDER Performed By: #### L 500.2500, L100.0100 ####[facility] [address] [place], [address] CL Normal 98-107 [facility] Comment on above: Result Comment: DUPL ICATE ORDER Performed By: #### L 500.2500, L100.0100 ####[facility] [address] [place], [address] CO2 Normal 21.0-32.0 [facility] Comment on above: Result Comment: DUPL ICATE ORDER Performed By: #### L 500.2500, L100.0100 ####[facility] [address] [place], [address] CREAT,SERUM Normal 0.70-1.30 [facility] Comment on above: Result Comment: DUPL ICATE ORDER Performed By: #### L 500.2500, L100.0100 ####[facility] [address] [place], [address] EST GFR Normal >60 [facility] Comment on above: Result Comment: DUPL ICATE ORDER Performed By: #### L 500.2500, L100.0100 ####[facility] [address] [place], [address] EST GFR - AA Normal >60 [facility] Comment on above: Result Comment: DUPL ICATE ORDER Performed By: #### L 500.2500, L100.0100 ####[facility] [address] [place], [address] GAP Normal 5-15 [facility] Comment on above: Result Comment: DUPL ICATE ORDER Performed By: #### L 500.2500, L100.0100 ####[facility] [address] [place], [address] GLU Normal 74-106 [facility] Comment on above: Result Comment: DUPL ICATE ORDER Performed By: #### L 500.2500, L100.0100 ####[facility] [address] [place], [address] Potassium Normal 3.5-5.1 [facility] Comment on above: Result Comment: DUPL ICATE ORDER Performed By: #### L 500.2500, L100.0100 ####[facility] [address] [place], [address] Basic Metabolic Profile (BMP) Normal 136-145 [facility] Comment on above: Result Comment: DUPL ICATE ORDER Performed By: #### L 500.2500, L100.0100 ####[facility] [address] [place], [address] CBC W/Diff, Automatedon 08-0 PATH REV Reviewed Normal [facility] Comment on above: Result Comment: KELLE RE Normocytic anemia.Clinical correlation necessary. Wade Landry M.D. 04/23/24 AMENDED REPORT 04/23/24 0817 PATH REV previously reported as: January Performed By: #### L 500.4050, BTS, BRC, L100.0100 ####[facility] [address] [place], [address] Absolute Lymph 0.85 X10 3/uL Normal 0.83-4.51 [facility] Comment on above: Performed By: #### L 100.0100, L500.2500 ####[facility] [address] [place], [address] Absolute Neut 2.2 X10 3/uL Normal 2.0-7.7 [facility] Comment on above: Performed By: #### L 100.0100, L500.2500 ####[facility] [address] [place], [address] Basophils/100 WBC (Bld) 0.6 % Normal 0-1 [facility] Comment on above: Performed By: #### L 100.0100, L500.2500 ####[facility] [address] [place], [address] Eosinophils/100 WBC (Bld) 4.2 % Normal 0-5 [facility] Comment on above: Performed By: #### L 100.0100, L500.2500 ####[facility] [address] [place], [address] Erythrocyte distribution width (RBC) [Ratio] 15.8 % High 11.6-14.6 [facility] Comment on above: Performed By: #### L 100.0100, L500.2500 ####[facility] [address] [place], [address] Hematocrit (Bld) [Volume fraction] 20.3 % Low 40-54 [facility] Comment on above: Performed By: #### L 100.0100, L500.2500 ####[facility] [address] [place], [address] Hemoglobin (Bld) [Mass/Vol] 7.1 g/dL Low 13.0-16.5 [facility] Comment on above: Performed By: #### L 100.0100, L500.2500 ####[facility] [address] [place], [address] IG% 1.700 High 0.0-0.9 [facility] Comment on above: Result Comment: IG% - Immature Granulocytes (promyelocytes, myelocytes andmetamyelocytes) > 1% indicates that a LEFT SHIFT is Present. Performed By: #### L 100.0100, L500.2500 ####[facility] [address] [place], [address] Lymphocytes/100 WBC (Bld) 23.9 % Normal 19-41 [facility] Comment on above: Performed By: #### L 100.0100, L500.2500 ####[facility] [address] [place], [address] MCH (RBC) [Entitic mass] 30.7 pg Normal 27.0-32.0 [facility] Comment on above: Performed By: #### L 100.0100, L500.2500 ####[facility] [address] [place], [address] MCHC (RBC) [Mass/Vol] 35.0 g/dL Normal 32-36 [facility] Comment on above: Performed By: #### L 100.0100, L500.2500 ####[facility] [address] [place], [address] MCV (RBC) [Entitic vol] 87.9 fL Normal 80-94 [facility] Comment on above: Performed By: #### L 100.0100, L500.2500 ####[facility] [address] [place], [address] Monocytes/100 WBC (Bld) 7.3 % Normal 0-10 [facility] Comment on above: Performed By: #### L 100.0100, L500.2500 ####[facility] [address] [place], [address] Neutrophils/100 WBC (Bld) 62.3 % Normal 47-70 [facility] Comment on above: Performed By: #### L 100.0100, L500.2500 ####[facility] [address] [place], [address] Nucleated RBC (Bld) [#/Vol] 0 10*3/uL Normal 0-5 [facility] Comment on above: Performed By: #### L 100.0100, L500.2500 ####[facility] [address] [place], [address] Platelet mean volume (Bld) [Entitic vol] 8.7 fL Normal 6.2-12.0 [facility] Comment on above: Performed By: #### L 100.0100, L500.2500 ####[facility] [address] [place], [address] Platelets (Bld) [#/Vol] 133 10*3/uL Low 150-450 [facility] Comment on above: Performed By: #### L 100.0100, L500.2500 ####[facility] [address] [place], [address] RBC (Bld) [#/Vol] 2.31 10*6/uL Low 4.6-6.2 [facility] Comment on above: Performed By: #### L 100.0100, L500.2500 ####[facility] [address] [place], [address] RDW SD 50.0 fl High 35.1-43.9 [facility] Comment on above: Performed By: #### L 100.0100, L500.2500 ####[facility] [address] [place], [address] WBC (Bld) [#/Vol] 3.6 10*3/uL Low 4.4-11.0 [facility] Comment on above: Performed By: #### L 100.0100, L500.2500 ####[facility] [address] [place], [address] Absolute Neut Normal 2.0-7.7 [facility] Comment on above: Result Comment: DUPL ICATE ORDERS Performed By: #### L 500.2500, L100.0100 ####[facility] [address] [place], [address] HCT Normal 40-54 [facility] Comment on above: Result Comment: DUPL ICATE ORDERS Performed By: #### L 500.2500, L100.0100 ####[facility] [address] [place], [address] HGB Normal 13.0-16.5 [facility] Comment on above: Result Comment: DUPL ICATE ORDERS Performed By: #### L 500.2500, L100.0100 ####[facility] [address] [place], [address] MCH Normal 27.0-32.0 [facility] Comment on above: Result Comment: DUPL ICATE ORDERS Performed By: #### L 500.2500, L100.0100 ####[facility] [address] [place], [address] MCHC Normal 32-36 [facility] Comment on above: Result Comment: DUPL ICATE ORDERS Performed By: #### L 500.2500, L100.0100 ####[facility] [address] [place], [address] MCV Normal 80-94 [facility] Comment on above: Result Comment: DUPL ICATE ORDERS Performed By: #### L 500.2500, L100.0100 ####[facility] [address] [place], [address] NEUT% Normal 47-70 [facility] Comment on above: Result Comment: DUPL ICATE ORDERS Performed By: #### L 500.2500, L100.0100 ####[facility] [address] [place], [address] PLT Normal 150-450 [facility] Comment on above: Result Comment: DUPL ICATE ORDERS Performed By: #### L 500.2500, L100.0100 ####[facility] [address] [place], [address] RBC Normal 4.6-6.2 [facility] Comment on above: Result Comment: DUPL ICATE ORDERS Performed By: #### L 500.2500, L100.0100 ####[facility] [address] [place], [address] RDW CV Normal 11.6-14.6 [facility] Comment on above: Result Comment: DUPL ICATE ORDERS Performed By: #### L 500.2500, L100.0100 ####[facility] [address] [place], [address] RDW SD Normal 35.1-43.9 [facility] Comment on above: Result Comment: DUPL ICATE ORDERS Performed By: #### L 500.2500, L100.0100 ####[facility] [address] [place], [address] WBC Normal 4.4-11.0 [facility] Comment on above: Result Comment: DUPL ICATE ORDERS Performed By: #### L 500.2500, L100.0100 ####[facility] [address] [place], [address] Colonoscopy Reporton 024 Colonoscopy Report Normal [facility] EGD Reporton 04-23-2024 EGD Report Normal [facility] Ferritinon 04-23-2024 Ferritin [Mass/Vol] 1236 ng/mL High 26-388 [facility] Comment on above: Performed By: #### L 503.6030, L503.6550 ####[facility] [address] [place], [address] Ferritin [Mass/Vol] 1236 ng/mL High 26-388 [facility] Comment on above: Order Comment: PER [...] ISSUE. Performed By: #### L 503.6550, L503.6030 ####[facility] [address] [place], [address] H Pylori (initial)on 024 H Pylori (initial) Normal [facility] Comment on above: Performed By: #### P H.PYLORI ####[facility] [address] [place], [address] HH, Hemoglobin AND Hematocri ton 04-23-2024 Hematocrit (Bld) [Volume fraction] 20.8 % Low 40-54 [facility] Comment on above: Performed By: #### L 100.0600 ####[facility] [address] [place], [address] Hemoglobin (Bld) [Mass/Vol] 7.1 g/dL Low 13.0-16.5 [facility] Comment on above: Performed By: #### L 100.0600 ####[facility] [address] [place], [address] Iron+Iron Binding Capacityon 04-23-2024 Iron [Mass/Vol] 222 ug/dL High 65-175 [facility] Comment on above: Performed By: #### L 503.6030, L503.6550 ####[facility] [address] [place], [address] IRON SATURATION 94.9 High 15.0-55.0 [facility] Comment on above: Performed By: #### L 503.6030, L503.6550 ####[facility] [address] [place], [address] TIBC 234 ug/dL Low 250-450 [facility] Comment on above: Performed By: #### L 503.6030, L503.6550 ####[facility] [address] [place], [address] Iron [Mass/Vol] 222 ug/dL High 65-175 [facility] Comment on above: Result Comment: PER RESTAURANT MGRDR WANTED TESTS RAN ON SPECIMEN FROM 04/21.TESTING WAS PERFORMED ON CORRECT SPECIMEN BUT COLLECTIONDATE WAS NOT CORRECTED. REQUESTED COLLECTION DATE BEFIXED. WILL CANCEL AND REORDER TO FIX COLLECTION DATE ISSUE. Performed By: #### L 503.6550, L503.6030 ####[facility] [address] [place], [address] IRON SATURATION 94.9 High 15.0-55.0 [facility] Comment on above: Result Comment: PER RESTAURANT MGR, DR WANTED TESTS RAN ON SPECIMEN FROM 04/21.TESTING WAS PERFORMED ON CORRECT SPECIMEN BUT COLLECTIONDATE WAS NOT CORRECTED. REQUESTED COLLECTION DATE BEFIXED. WILL CANCEL AND REORDER TO FIX COLLECTION DATE ISSUE. Performed By: #### L 503.6550, L503.6030 ####[facility] [address] [place], [address] TIBC 234 ug/dL Low 250-450 [facility] Comment on above: Result Comment: PER RESTAURANT MGR, WANTED TESTS RAN ON SPECIMEN FROM 04/21.TESTING WAS PERFORMED ON CORRECT SPECIMEN BUT COLLECTIONDATE WAS NOT CORRECTED. REQUESTED COLLECTION DATE BEFIXED. WILL CANCEL AND REORDER TO FIX COLLECTION DATE ISSUE. Performed By: #### L 503.6550, L503.6030 ####[facility] [address] [place], [address] MR/POSTOP.ANEon 04-23-2024 MR/POSTOP.ANE Normal [facility] MR/QQBLJPUV7ih 04-23-2024 MR/POSTOPAN2 Normal [facility] Special Stain Group Ion 08- Special Stain Group I Normal [facility] Comment on above: Performed By: #### P SSI ####[facility] [address] [place], [address] 12 Lead EKGon 04-22-2024 12 Lead EKG Normal [facility] Basic Metabolic Profile (BMP )on 04-22-2024 BUN/CRE 10.1 RATIO Normal 10-20 [facility] Comment on above: Performed By: #### L 500.2500 ####[facility] [address] [place], [address] CA,Total 7.8 mg/dL Low 8.5-10.1 [facility] Comment on above: Performed By: #### L 500.2500 ####[facility] [address] [place], [address] Chloride [Moles/Vol] 103 mmol/L Normal 98-107 [facility] Comment on above: Performed By: #### L 500.2500 ####[facility] [address] [place], [address] CO2 [Moles/Vol] 20.0 mmol/L Low 21.0-32.0 [facility] Comment on above: Performed By: #### L 500.2500 ####[facility] [address] [place], [address] Creatinine [Mass/Vol] 0.79 mg/dL Normal 0.70-1.30 [facility] Comment on above: Result Comment: The validity of the calculated GFR GFRAA in patients over70 years has not been determined. Clinical correlation isessential. Performed By: #### L 500.2500 ####[facility] [address] [place], [address] ECRCL 76.35 ml/min Normal [facility] Comment on above: Performed By: #### L 500.2500 ####[facility] [address] [place], [address] EST GFR - AA 127 mL/min Normal >60 [facility] Comment on above: Result Comment: Afri can Kosovan GFR Calc Performed By: #### L 500.2500 ####[facility] [address] [place], [address] GAP 8 Normal 5-15 [facility] Comment on above: Performed By: #### L 500.2500 ####[facility] [address] [place], [address] GFR/1.73 sq M.predicted among non-blacks MDRD (S/P/Bld) [Vol rate/Area] 105 mL/min/{1.73_m2} Normal >60 [facility] Comment on above: Result Comment: Non- GFR Calc Performed By: #### L 500.2500 ####[facility] [address] [place], [address] Glucose [Mass/Vol] 101 mg/dL Normal 74-106 [facility] Comment on above: Result Comment: Fast ing Glucose result from 100 to 125 mg/dLsuggests IMPAIRED HOMEOSTASIS per A.D.A. criteria. Performed By: #### L 500.2500 ####[facility] [address] [place], [address] Potassium [Moles/Vol] 3.6 mmol/L Normal 3.5-5.1 [facility] Comment on above: Performed By: #### L 500.2500 ####[facility] [address] [place], [address] Sodium [Moles/Vol] 131 mmol/L Low 136-145 [facility] Comment on above: Performed By: #### L 500.2500 ####[facility] [address] [place], [address] Urea nitrogen [Mass/Vol] 8 mg/dL Normal 7-18 [facility] Comment on above: Performed By: #### L 500.2500 ####[facility] [address] [place], [address] CBC W/Diff, Automatedon 08-0 8-2024 Absolute Lymph 0.75 X10 3/uL Low 0.83-4.51 [facility] Comment on above: Performed By: #### L 100.0100 ####[facility] [address] [place], [address] Absolute Neut 2.4 X10 3/uL Normal 2.0-7.7 [facility] Comment on above: Performed By: #### L 100.0100 ####[facility] [address] [place], [address] Basophils/100 WBC (Bld) 0.6 % Normal 0-1 [facility] Comment on above: Performed By: #### L 100.0100 ####[facility] [address] [place], [address] Eosinophils/100 WBC (Bld) 3.6 % Normal 0-5 [facility] Comment on above: Performed By: #### L 100.0100 ####[facility] [address] [place], [address] Erythrocyte distribution width (RBC) [Ratio] 14.9 % High 11.6-14.6 [facility] Comment on above: Performed By: #### L 100.0100 ####[facility] [address] [place], [address] Hematocrit (Bld) [Volume fraction] 20.4 % Low 40-54 [facility] Comment on above: Performed By: #### L 100.0100 ####[facility] [address] [place], [address] Hemoglobin (Bld) [Mass/Vol] 7.2 g/dL Low 13.0-16.5 [facility] Comment on above: Performed By: #### L 100.0100 ####[facility] [address] [place], [address] IG% 1.700 High 0.0-0.9 [facility] Comment on above: Result Comment: IG% - Immature Granulocytes (promyelocytes, myelocytes andmetamyelocytes) > 1% indicates that a LEFT SHIFT is Present. Performed By: #### L 100.0100 ####[facility] [address] [place], [address] Lymphocytes/100 WBC (Bld) 20.7 % Normal 19-41 [facility] Comment on above: Performed By: #### L 100.0100 ####[facility] [address] [place], [address] MCH (RBC) [Entitic mass] 30.8 pg Normal 27.0-32.0 [facility] Comment on above: Performed By: #### L 100.0100 ####[facility] [address] [place], [address] MCHC (RBC) [Mass/Vol] 35.3 g/dL Normal 32-36 [facility] Comment on above: Performed By: #### L 100.0100 ####[facility] [address] [place], [address] MCV (RBC) [Entitic vol] 87.2 fL Normal 80-94 [facility] Comment on above: Performed By: #### L 100.0100 ####[facility] [address] [place], [address] Monocytes/100 WBC (Bld) 7.4 % Normal 0-10 [facility] Comment on above: Performed By: #### L 100.0100 ####[facility] [address] [place], [address] Neutrophils/100 WBC (Bld) 66.0 % Normal 47-70 [facility] Comment on above: Performed By: #### L 100.0100 ####[facility] [address] [place], [address] Nucleated RBC (Bld) [#/Vol] 0 10*3/uL Normal 0-5 [facility] Comment on above: Performed By: #### L 100.0100 ####[facility] [address] [place], [address] Platelet mean volume (Bld) [Entitic vol] 9.3 fL Normal 6.2-12.0 [facility] Comment on above: Performed By: #### L 100.0100 ####[facility] [address] [place], [address] Platelets (Bld) [#/Vol] 138 10*3/uL Low 150-450 [facility] Comment on above: Performed By: #### L 100.0100 ####[facility] [address] [place], [address] RBC (Bld) [#/Vol] 2.34 10*6/uL Low 4.6-6.2 [facility] Comment on above: Performed By: #### L 100.0100 ####[facility] [address] [place], [address] RDW SD 47.1 fl High 35.1-43.9 [facility] Comment on above: Performed By: #### L 100.0100 ####[facility] [address] [place], [address] WBC (Bld) [#/Vol] 3.6 10*3/uL Low 4.4-11.0 [facility] Comment on above: Performed By: #### L 100.0100 ####[facility] [address] [place], [address] HH, Hemoglobin AND Hematocri ton 04-22-2024 Hematocrit (Bld) [Volume fraction] 20.2 % Low 40-54 [facility] Comment on above: Performed By: #### L 100.0600 ####[facility] [address] [place], [address] Hemoglobin (Bld) [Mass/Vol] 7.2 g/dL Low 13.0-16.5 [facility] Comment on above: Performed By: #### L 100.0600 ####[facility] [address] [place], [address] Partial Thromboplast Timeon 04-22-2024 aPTT Coag (Bld) [Time] 37.8 s High 24.1-36.2 [facility] Comment on above: Performed By: #### L 300.4310, L300.3900 ####[facility] [address] [place], [address] Prothrombin Time w/INRon INR Coag (PPP) [Relative time] 1.1 {INR} Normal [facility] Comment on above: Performed By: #### L 300.4310, L300.3900 ####[facility] [address] [place], [address] PT Coag (PPP) [Time] 13.9 s Normal 11.7-14.9 [facility] Comment on above: Performed By: #### L 300.4310, L300.3900 ####[facility] [address] [place], [address] Abdomen/Pelvis W IV Cont ONL Yon 04-21-2024 Abdomen/Pelvis W IV Cont ONLY Normal [facility] BRCon 04-21-2024 RC Normal [facility] Comment on above: Result Comment: [id number] AN RC TRANSFUSED 04/24/24 0846 Performed By: #### B RC ####[facility] [address] [place], [address] Result Comment: [id number] AP RC TRANSFUSED 04/21/24 [id number] AP RC TRANSFUSED 04/21/24 1504 Performed By: #### L 500.4050, BTS, BRC, L100.0100 ####[facility] [address] [place], [address] CBC W/Diff, Automatedon 08- PATH REV Reviewed Normal [facility] Comment on above: Result Comment: KELLE RE Normocytic anemia.Clinical correlation necessary.Wade Landry M.D. 04/21/24 AMENDED REPORT 04/21/24 1337 PATH REV previously reported as: January frandy Performed By: #### L 501.9910, L503.0105, L506.1000, L500.4100, L3890.6300, L501.9520, L100.0100 ####[facility] [address] [place], [address] Chest 1 View (Portable)on Chest 1 View (Portable) Normal [facility] Comprehensive Metabolic Prof ilon 04-21-2024 Albumin [Mass/Vol] 3.4 g/dL Normal 3.2-5.0 [facility] Comment on above: Performed By: #### L 500.4050, BTS, BR, L100.0100 ####[facility] [address] [place], [address] Albumin/Globulin [Mass ratio] 0.8 {ratio} Low 0.9-2.4 [facility] Comment on above: Performed By: #### L 500.4050, BTS, BR, L100.0100 ####[facility] [address] [place], [address] ALK P 143 U/L High 45-117 [facility] Comment on above: Performed By: #### L 500.4050, BTS, BR, L100.0100 ####[facility] [address] [place], [address] ALT [Catalytic activity/Vol] 13 U/L Low 16-61 [facility] Comment on above: Performed By: #### L 500.4050, [facility], L100.0100 ####[facility] [address] [place], [address] AST [Catalytic activity/Vol] 23 U/L Normal 15-37 [facility] Comment on above: Performed By: #### L 500.4050, BT, BRC, L100.0100 ####[facility] [address] [place], [address] Bilirubin [Mass/Vol] 0.60 mg/dL Normal 0.20-1.00 [facility] Comment on above: Result Comment: For patients on eltrombopag therapy, use of Dimension Lamar TBIL is not recommended. Performed By: #### L 500.4050, BTS, BRC, L100.0100 ####[facility] [address] [place], [address] BUN/CRE 10.2 RATIO Normal 10-20 [facility] Comment on above: Performed By: #### L 500.4050, BT, BRC, L100.0100 ####[facility] [address] [place], [address] CA,Total 8.6 mg/dL Normal 8.5-10.1 [facility] Comment on above: Performed By: #### L 500.4050, BTS, BRC, L100.0100 ####[facility] [address] [place], [address] Chloride [Moles/Vol] 95 mmol/L Low 98-107 [facility] Comment on above: Performed By: #### L 500.4050, BTS, BR, L100.0100 ####[facility] [address] [place], [address] CO2 [Moles/Vol] 19.0 mmol/L Low 21.0-32.0 [facility] Comment on above: Performed By: #### L 500.4050, BTS, BRC, L100.0100 ####[facility] [address] [place], [address] Creatinine [Mass/Vol] 0.98 mg/dL Normal 0.70-1.30 [facility] Comment on above: Result Comment: The validity of the calculated GFR GFRAA in patients over70 years has not been determined. Clinical correlation isessential. Performed By: #### L 500.4050, BTS, BRC, L100.0100 ####[facility] [address] [place], [address] ECRCL 77.22 ml/min Normal [facility] Comment on above: Performed By: #### L 500.4050, BTS, BRC, L100.0100 ####[facility] [address] [place], [address] EST GFR - AA 100 mL/min Normal >60 [facility] Comment on above: Result Comment: Afri can Kosovan GFR Calc Performed By: #### L 500.4050, BTS, BRC, L100.0100 ####[facility] [address] [place], [address] GAP 12 Normal 5-15 [facility] Comment on above: Performed By: #### L 500.4050, BTS, BRC, L100.0100 ####[facility] [address] [place], [address] GFR/1.73 sq M.predicted among non-blacks MDRD (S/P/Bld) [Vol rate/Area] 82 mL/min/{1.73_m2} Normal >60 [facility] Comment on above: Result Comment: Non- GFR Calc Performed By: #### L 500.4050, BTS, BRC, L100.0100 ####[facility] [address] [place], [address] Globulin (S) [Mass/Vol] 4.5 g/dL High 2.2-4.[address] [facility] Comment on above: Performed By: #### L 500.4050, BTS, BRC, L100.0100 ####[facility] [address] [place], [address] Glucose [Mass/Vol] 117 mg/dL High 74-106 [facility] Comment on above: Result Comment: Fast ing Glucose result from 100 to 125 mg/dLsuggests IMPAIRED HOMEOSTASIS per A.D.A. criteria. Performed By: #### L 500.4050, BTS, BRC, L100.0100 ####[facility] [address] [place], [address] Potassium [Moles/Vol] 3.5 mmol/L Normal 3.5-5.1 [facility] Comment on above: Performed By: #### L 500.4050, BTS, BRC, L100.0100 ####[facility] [address] [place], [address] Sodium [Moles/Vol] 126 mmol/L Low 136-145 [facility] Comment on above: Performed By: #### L 500.4050, BTS, BRC, L100.0100 ####[facility] [address] [place], [address] T PROT 7.9 g/dL Normal 6.4-8.2 [facility] Comment on above: Performed By: #### L 500.4050, BTS, BRC, L100.0100 ####[facility] [address] [place], [address] Urea nitrogen [Mass/Vol] 10 mg/dL Normal 7-18 [facility] Comment on above: Performed By: #### L 500.4050, BTS, BRC, L100.0100 ####[facility] [address] [place], [address] Consultation - Surgicalon Consultation - Surgical Normal [facility] Emergency Department Summary on 04-21-2024 Emergency Department Summary Normal [facility] H AND P Exam - Hospitaliston 04-21-2024 H&P Exam - Hospitalist Normal [facility] Type AND Screenon 04-21-2024 ABO and Rh group Nom (Bld) Blood group A Rh(D) positive Normal [facility] Comment on above: Order Comment: Has p [...] By: #### L 500.4050, BTS, BRC, L100.0100 ####[facility] [address] [place], [address] Hepatitis C Antibodyon 04-20 Hepatitis C AB Non-Reactive Normal Nonreactive [facility] Comment on above: Result Comment: Non Reactive: < 0.8 Equivocal: >/= 0.8 to < 1.0 Reactive: >/= 1.0The CDC requires that a reactive/equivocal HCV antibodyresult be sent out for confirmation. HCV Quant by PCRtesting. Performed By: #### L 501.9910, L503.0105, L506.1000, L500.4100, L3890.6300, L501.9520, L100.0100 ####[facility] [address] [place], [address] Lipid Profileon 2024 Cholesterol [Mass/Vol] 103 mg/dL Normal 200 [facility] Comment on above: Result Comment: <200 mg/dL Desirable 200-240 mg/dL Borderline >240 mg/dL High Risk Performed By: #### L 501.9910, L503.0105, L506.1000, L500.4100, L3890.6300, L501.9520, L100.0100 ####[facility] [address] [place], [address] Cholesterol in HDL [Mass/Vol] 46 mg/dL Normal [facility] Comment on above: Result Comment: The drugs N-Acetylcysteine and Metamizole may falselydepress this assay. Reference Range HDL <40 mg/dL Low HDL Cholesterol HDL >or= 60 mg/dL High HDL Cholesterol Performed By: #### L 501.9910, L503.0105, L506.1000, L500.4100, L3890.6300, L501.9520, L100.0100 ####[facility] [address] [place], [address] Cholesterol in LDL [Mass/Vol] 29 mg/dL Normal 0-130 [facility] Comment on above: Performed By: #### L 501.9910, L503.0105, L506.1000, L500.4100, L3890.6300, L501.9520, L100.0100 ####[facility] [address] [place], [address] Cholesterol in VLDL [Mass/Vol] 28 mg/dL Normal 5-40 [facility] Comment on above: Performed By: #### L 501.9910, L503.0105, L506.1000, L500.4100, L3890.6300, L501.9520, L100.0100 ####[facility] [address] [place], [address] Triglyceride [Mass/Vol] 142 mg/dL Normal [facility] Comment on above: Result Comment: The drugs N-Acetylcysteine and Metamizole may falselydepress this assay.Serum Triglycerides Reference Interval Normal <150 mg/dL Borderline high 150 - 199 mg/dL High 200 - 499 mg/dL Very High > or = 500 mg/dL Performed By: #### L 501.9910, L503.0105, L506.1000, L500.4100, L3890.6300, L501.9520, L100.0100 ####[facility] [address] [place], [address] PSA,Total - Annual Screenon 2024 PSA,TOT SCREEN 0.35 ng/mL Normal 0.00-4.00 [facility] Comment on above: Result Comment: This test was performed using the TPSA assay method for the[facility] chemistry system. Values obtained with differentassay methods cannot be used interchangably.When changing PSA assays in the course of monitoring apatient, additional sequential testing should be carriedout to confirm baseline values. Performed By: #### L 501.9910, L503.0105, L506.1000, L500.4100, L3890.6300, L501.9520, L100.0100 ####[facility] [address] [place], [address] Thyroid Stim Hormone (TSH)on 2024 TSH 3.09 uIU/mL Normal 0.358-3.74 [facility] Comment on above: Performed By: #### L 501.9910, L503.0105, L506.1000, L500.4100, L3890.6300, L501.9520, L100.0100 ####[facility] [address] [place], [place], [address] Vitamin B12on 2024 Cobalamin (Vitamin B12) [Mass/Vol] 513 pg/mL Normal 211-911 [facility] Comment on above: Performed By: #### L 501.9910, L503.0105, L506.1000, L500.4100, L3890.6300, L501.9520, L100.0100 ####[facility] [address] [place], [place], [address] Vitamin D,25 Hydroxyon 04-20 Vitamin D 25-OH 21.0 ng/mL Normal [facility] Comment on above: Result Comment: Anita min D 25(OH) Status Range Deficiency <20 ng/mL (50nmol/L) Insufficiency 20 - 30 ng/mL (50 - 75 nmol/L) Sufficiency 30 - 100 ng/mL (75 - 250 nmol/L) Toxicity >100 ng/mL (>250 nmol/L) Performed By: #### L 501.9910, L503.0105, L506.1000, L500.4100, L3890.6300, L501.9520, L100.0100 ####[facility] [address] [place], [place], [address] Absolute lymphocyte countOrd ered By: Amaris Marks on 08-21-2023 Lymphocytes Auto (Unsp spec) [#/Vol] 0.58 10*3/uL 0.83-4.51 [facility] Basophil percentageOrdered B y: Amaris Marks on 08-21-2023 Basophils/100 WBC (Bld) 0.5 % 0-1 [facility] Chloride [Moles/Vol] 106 mmol/L 98-107 [facility] Eosinophils/100 WBC (Bld) 4.4 % 0-5 [facility] Glucose [Mass/Vol] 108 mg/dL 74-106 [facility] Comment on above: Fasting Glucose resu lt from 100 to 125 mg/dL suggests IMPAIRED HOMEOSTASIS per A.D.A. criteria. Neutrophils (Bld) [#/Vol] 2.6 10*3/uL 2.0-7.7 [facility] Neutrophils/100 WBC (Bld) 66.7 % 47-70 [facility] Potassium [Moles/Vol] 3.7 mmol/L 3.5-5.1 [facility] Sodium [Moles/Vol] 134 mmol/L 136-145 [facility] WBC (Bld) [#/Vol] 3.9 10*3/uL 4.4-11.0 [facility] Blood erythrocytes count (nu mber/volume)Ordered By: Amaris Marks on 08-21-2023 RBC (Bld) [#/Vol] 2.31 10*6/uL 4.6-6.2 [facility] Blood hemoglobin measurement (mass/volume)Ordered By: Amaris Marks on 08-21-2023 Hemoglobin (Bld) [Mass/Vol] 7.4 g/dL 13.0-16.5 [facility] Blood lymphocytes/100 leukoc ytesOrdered By: Amaris Marks on 08-21-2023 Lymphocytes/100 WBC (Bld) 15.0 % 19-41 [facility] Blood manual differential co mment interpretation (narrative result)Ordered By: Amaris Marks on 08-21-2023 Manual differential comment Mars (Bld) [Interp] SCANNED [facility] Blood monocytes/100 leukocyt esOrdered By: Amaris Marks on 08-21-2023 Monocytes/100 WBC (Bld) 12.4 % 0-[address] [facility] Blood platelet mean volumeOr dered By: Amaris Marks on 08-21-2023 Platelet mean volume (Bld) [Entitic vol] 9.6 fL 6.2-12.0 [facility] Determination of erythrocyte mean corpuscular volume (MCV)Ordered By: Amaris Marks on 08-21-2023 MCV (RBC) [Entitic vol] 94.8 fL 80-94 [facility] Hematocrit Auto (Bld) [Volum e fraction]Ordered By: Amaris Marks on 08-21-2023 Hematocrit (Bld) [Volume fraction] 21.9 % 40-54 [facility] Laboratory - Chemistry and C hemistry - challengeOrdered By: Amaris Marks on 08-21-2023 CO2 [Moles/Vol] 19.0 mmol/L 21.0-32.0 [facility] Urea nitrogen/Creatinine [Mass ratio] 11.3 mg/mg 10-20 [facility] - Hematology and Cell countsOrdered By: Amaris Marks on 08-21-2023 Erythrocyte distribution width (RBC) [Entitic vol] 45.3 fL 35.1-43.9 [facility] Erythrocyte distribution width (RBC) [Ratio] 13.2 % 11.6-14.6 [facility] Immature granulocytes/100 WBC (Bld) 1.000 % 0.0-0.9 [facility] Comment on above: IG% - Immature Granu locytes (promyelocytes, myelocytes and metamyelocytes) > 1% indicates that a LEFT SHIFT is Present. MCH (RBC) [Entitic mass] 32.0 pg 27.0-32.0 [facility] Nucleated RBC/100 WBC (Bld) [Ratio] 0 % 0-5 [facility] MCHC Auto (RBC) [Mass/Vol]Or dered By: Amaris Marks on 08-21-2023 MCHC (RBC) [Mass/Vol] 33.8 g/dL 32-36 [facility] No Panel InformationOrdered By: Amaris Marks on 08-21-2023 Estimated Creatinine Clearance Calc 98.85 ml/min [facility] Estimated GFR (MDRD) Amer 127 mL/min >60 [facility] Comment on above: GFR Calc Estimated GFR (MDRD) Non-Af Amer 105 mL/min >60 [facility] Comment on above: Non- GFR Calc Platelets bldOrdered By: Jeni Marks on 08-21-2023 Platelets (Bld) [#/Vol] 140 10*3/uL 150-450 [facility] Review by pathologistOrdered By: Amaris Marks on 08-21-2023 Pathologist review Mars (Unsp spec) [Interp] May foll [facility] Serum or plasma calcium ed urement (mass/volume)Ordered By: Amaris Marks on 08-21-2023 Calcium [Mass/Vol] 8.5 mg/dL 8.5-10.1 [facility] Serum or plasma creatinine m easurement (mass/volume)Ordered By: Amaris Marks on 08-21-2023 Creatinine [Mass/Vol] 0.80 mg/dL 0.70-1.30 [facility] Comment on above: The validity of the calculated GFR & GFRAA in patients over 70 years has not been determined. Clinical correlation is essential. Serum or plasma urea nitroge n measurement (mass/volume)Ordered By: Amaris Marks on 08-21-2023 Urea nitrogen [Mass/Vol] 9 mg/dL 7-18 [facility] Thin prep Papanicolaou smear with manual screeningOrdered By: Amaris Marks on 08-21-2023 Thin prep Papanicolaou smear with manual screening 9 5-15 [facility] Blood platelet adequacy dete ction by light microscopyOrdered By: Amaris Marks on 08-19-2023 Platelets LM Ql (Bld) SLT DEC ADEQ [facility] Absolute lymphocyte countOrd ered By: Tamir Allan on 08-16-2023 Lymphocytes Auto (Unsp spec) [#/Vol] 1.20 10*3/uL 0.83-4.51 [facility] Basophil percentageOrdered B y: Tamir Allan on 08-16-2023 Basophils/100 WBC (Bld) 0.9 % 0-[address] [facility] Chloride [Moles/Vol] 92 mmol/L 98-107 [facility] Eosinophils/100 WBC (Bld) 3.4 % 0-5 [facility] Glucose [Mass/Vol] 143 mg/dL 74-106 [facility] Comment on above: Fasting Glucose resu lt greater than or equal to 126 mg/dL suggests DIABETES MELLITUS per A.D.A. criteria. Neutrophils (Bld) [#/Vol] 2.4 10*3/uL 2.0-7.7 [facility] Neutrophils/100 WBC (Bld) 54.0 % 47-70 [facility] Potassium [Moles/Vol] 3.4 mmol/L 3.5-5.1 [facility] Sodium [Moles/Vol] 126 mmol/L 136-145 [facility] WBC (Bld) [#/Vol] 4.4 10*3/uL 4.4-11.0 [facility] Basophil percentageOrdered B y: Patrice Watkins on 08-16-2023 Bilirubin [Mass/Vol] 0.50 mg/dL 0.20-1.00 [facility] Comment on above: For patients on eltr ombopag therapy, use of Dimension Lamar TBIL is not recommended. Protein [Mass/Vol] 6.3 g/dL 6.4-8.2 [facility] Blood erythrocytes count (nu mber/volume)Ordered By: Tamir Allan on 08-16-2023 RBC (Bld) [#/Vol] 3.08 10*6/uL 4.6-6.2 [facility] Blood hemoglobin measurement (mass/volume)Ordered By: Tamir Allan on 08-16-2023 Hemoglobin (Bld) [Mass/Vol] 10.1 g/dL 13.0-16.5 [facility] Blood lymphocytes/100 leukoc ytesOrdered By: Tamir Allan on 08-16-2023 Lymphocytes/100 WBC (Bld) 27.6 % 19-41 [facility] Blood monocytes/100 leukocyt esOrdered By: Tamir Allan on 08-16-2023 Monocytes/100 WBC (Bld) 13.6 % 0-10 [facility] Blood platelet mean volumeOr dered By: Tamir Allan on 08-16-2023 Platelet mean volume (Bld) [Entitic vol] 8.8 fL 6.2-12.0 [facility] Determination of erythrocyte mean corpuscular volume (MCV)Ordered By: Tamir Allan on 08-16-2023 MCV (RBC) [Entitic vol] 89.3 fL 80-94 [facility] Hematocrit Auto (Bld) [Volum e fraction]Ordered By: Tamir Allan on 08-16-2023 Hematocrit (Bld) [Volume fraction] 27.5 % 40-54 [facility] - Chemistry and C hemistry - challengeOrdered By: Patrice Watkins on 08-16-2023 ALP [Catalytic activity/Vol] 84 U/L 45-117 [facility] ALT [Catalytic activity/Vol] 22 U/L 16-61 [facility] Globulin (S) [Mass/Vol] 3.0 g/dL 2.2-4.2 [facility] Laboratory - Chemistry and C hemistry - challengeOrdered By: Tamir Allan on 08-16-2023 CO2 [Moles/Vol] 25.0 mmol/L 21.0-32.0 [facility] Urea nitrogen/Creatinine [Mass ratio] 8.8 mg/mg 10-20 [facility] - Hematology and Cell countsOrdered By: Tamir Allan on 08-16-2023 Erythrocyte distribution width (RBC) [Entitic vol] 42.5 fL 35.1-43.9 [facility] Erythrocyte distribution width (RBC) [Ratio] 13.1 % 11.6-14.6 [facility] Immature granulocytes/100 WBC (Bld) 0.500 % 0.0-0.9 [facility] Comment on above: IG% - Immature Granu locytes (promyelocytes, myelocytes and metamyelocytes) > 1% indicates that a LEFT SHIFT is Present. MCH (RBC) [Entitic mass] 32.8 pg 27.0-32.0 [facility] Nucleated RBC/100 WBC (Bld) [Ratio] 0 % 0-5 [facility] MCHC Auto (RBC) [Mass/Vol]Or dered By: Tamir Allan on 08-16-2023 MCHC (RBC) [Mass/Vol] 36.7 g/dL 32-36 [facility] No Panel InformationOrdered By: Tamir Allan on 08-16-2023 Estimated Creatinine Clearance Calc 69.99 ml/min [facility] Estimated GFR (MDRD) Amer 85 mL/min >60 [facility] Comment on above: GFR Calc Estimated GFR (MDRD) Non-Af Amer 70 mL/min >60 [facility] Comment on above: Non- GFR Calc No Panel InformationOrdered By: Patrice Watkins on 08-16-2023 Vitamin D 25-Hydroxy 15.4 ng/mL [facility] Comment on above: Vitamin D 25(OH) Sta tus Range Deficiency <20 ng/mL (50nmol/L) Insufficiency 20 - 30 ng/mL (50 - 75 nmol/L) Sufficiency 30 - 100 ng/mL (75 - 250 nmol/L) Toxicity >100 ng/mL (>250 nmol/L) Platelets bldOrdered By: Venu Allan on 08-16-2023 Platelets (Bld) [#/Vol] 171 10*3/uL 150-450 [facility] Serum or plasma albumin ed urement (mass/volume)Ordered By: Patrice Watkins on 08-16-2023 Albumin [Mass/Vol] 3.3 g/dL 3.2-5.0 [facility] Serum or plasma albumin/glob ulin mass ratioOrdered By: Patrice Watkins on 08-16-2023 Albumin/Globulin [Mass ratio] 1.1 {ratio} 0.9-2.4 [facility] Serum or plasma calcium ed urement (mass/volume)Ordered By: Tamir Allan on 08-16-2023 Calcium [Mass/Vol] 8.7 mg/dL 8.5-10.1 [facility] Serum or plasma creatinine m easurement (mass/volume)Ordered By: Tamir Allan on 08-16-2023 Creatinine [Mass/Vol] 1.13 mg/dL 0.70-1.30 [facility] Comment on above: The validity of the calculated GFR & GFRAA in patients over 70 years has not been determined. Clinical correlation is essential. Serum or plasma urea nitroge n measurement (mass/volume)Ordered By: Tamir Allan on 08-16-2023 Urea nitrogen [Mass/Vol] 10 mg/dL 7-18 [facility] Thin prep Papanicolaou smear with manual screeningOrdered By: Tamir Allan on 08-16-2023 Thin prep Papanicolaou smear with manual screening 9 5-15 [facility] Thin prep Papanicolaou smear with manual screeningOrdered By: Patrice Watkins on 08-16-2023 Thin prep Papanicolaou smear with manual screening 24 U/L 15-37 [facility] LABORATORYOrdered By: SYSTEM SYSTEM on 05-13-2023 Basophil, [...] CNPElizabeth 12-22-2020 CNPN Telephone (UCWSTR) KIM CALDWELL ([id number]) 1960 M Date Time Provider Department 12/22/20 GERALDINE CANSECO [facility] During your visit today, we recorded the following information about you: Geraldine Canseco APRN.CNP 12/22/2020 10:51 AM Signed This BUSINESS DATA ANALYST called patient at [phone] left message for patient to return call [...] Status:Closed by APARNA PURVIS RN on 12/22/20 [facility] CNOVon 12-21-2020 CNOV Office Visit (UCWSTR) KIM CALDWELL ([id number]) 1960 M Date Time Provider Department 12/21/20 12:30 PM CLOVER RICO) [facility] During your visit today, we recorded the following information about you: Temperature Pulse Respiration Blood pressure 101.9 degrees 113/minute 18/minute 110/60 Weight 80.1 kg Clover Rico PA-C 12/21/2020 1:24 PM Signed This note was created using [employer]. Subjective Kim Caldwell is a 60 year [...] cause [R50.9] Order(s):2019 CORONAVIRUS [SQCOVID] Order #: [id number] FUTURE XR CHEST 2V FRONTAL/LAT [2510195] Order #: [id number] FUTURE Prescriptions as of 12/21/2020 Sig: BROMPHENIRAMINE-PSEU DOEPHEDRI* Take 10 mL by mouth three karen* Patient not taking: Reported on 11/09/2019 Problem List As Of Date: 12/21/2020 (None) Letter Text Encounter Status:Closed by CLOVER RICO PA-C on 12/21/20 Normal [facility] Coronavirus 2019on 1 SARS-CoV-2 (COVID-19) RNA JOSE FRANCISCO+probe Ql (Unsp spec) UPPER RESPIRATORY TRACT SWAB Normal [facility] Comment on above: Performed By: #### C OVID #### [facility] [address] [place] [address] SARS-CoV-2 (COVID-19) RNA JOSE FRANCISCO+probe Ql (Unsp spec) Positive for COVID19 (SARS CoV2) by RT-PCR or equivalent method. Critically abnormal Negative for COVID19 (SARS CoV2) by RT-PCR or equivalent method. [facility] Comment on above: Result Comment: This test was developed and its performance characteristics determined by [facility] [place]. This test has been authorized by FDA under an Emergency Use Authorization (EUA). This test has been validated in accordance with the FDA's Guidance Document Policy for Diagnostics Testing in Laboratories Certified to Perform High Complexity Testing under CLIA prior to Emergency use Authorization for Coronavirus Disease 2019 during the Public Health Emergency issued on November 13, 2019. Test performed by [facility], [facility] [place], [address], [place] [address]. Performed By: #### C OVID #### [place] [id number] [place] [id number] XR CHEST 2V FRONTAL/LATon XR CHEST 2V [...] the right. IMPRESSION: No acute radiographic abnormality. Communications Manager: [employer] Transcribe Date/Time: Dec 21 2020 1:09P Dictated by : FRANCISCO JAVIER HANKS MD This examination was interpreted and the report reviewed and electronically signed by: FRANCISCO JAVIER HANKS MD on Dec 21 2020 1:12PM EST [id number] Normal [facility] XR Chest PA and Lateralon IMPRESSION: No acute radiographic abnormality. Communications Manager: [employer] Transcribe Date/Time: Dec 21 2020 1:09P Dictated [...] on the right. DIVISION OF RADIOLOGY Provider, [facility] [place] - 12/21/2020 * * *Final Report* * [...] right. IMPRESSION IMPRESSION: No acute radiographic abnormality. Communications Manager: [employer] Transcribe Date/Time: Dec 21 2020 1:09P Dictated by : FRANCISCO JAVIER HANKS MD This examination was interpreted and the report reviewed and electronically signed by: FRANCISCO JAVIER HANKS MD on Dec 21 2020 1:12PM EST [facility] Radiology Study observation (narrative) Cornelius knight [facility] XR Chest PA and LateralOrder ed By: Cc Provider on 12-21-2020 [facility] Vital Signs Date Time Vital Sign Value Performing Clinician Facility 02-10-2025 09:26-0400 Body height 177.[address] Emanuel Macedo MD Work Phone: [facility] 02-10-2025 09:26-0400 Body temperature 97.3 [degF] Dr. Emanuel Macedo MD Work Phone: [facility] 02-10-2025 09:26-0400 Diastolic blood pressure 70 mm[Hg] Dr. Emanuel Macedo MD Work Phone: [facility] 02-10-2025 09:26-0400 Heart rate 98 /min Dr. Emanuel Macedo MD Work Phone: [facility] 02-10-2025 09:26-0400 Respiratory rate 16 /min Dr. Emanuel Macedo MD Work Phone: 7(511)615-852233 [place] [address] 02-10-2025 09:26-0400 SaO2% (BldA) [Mass fraction] 99 % Dr. Emanuel Macedo MD Work Phone: 8(390)544-108317 [address] 02-10-2025 09:26-0400 Systolic blood pressure 103 mm[Hg] Dr. Emanuel Macedo MD Work Phone: 7(848)[phone] [place] [address] 01-24-2025 15:36-0400 Body temperature 97.9 [degF] Dr. Emanuel Macedo MD Work Phone: [facility] 01-24-2025 15:36-0400 Diastolic blood pressure 93 mm[Hg] Dr. Emanuel Macedo MD Work Phone: 4(910)[phone] [place] [address] 01-24-2025 15:36-0400 Heart rate 83 /min Dr. Emanuel Macedo MD Work Phone: [facility] 01-24-2025 15:36-0400 Respiratory rate 18 /min Dr. Emanuel Macedo MD Work Phone: [facility] 01-24-2025 15:36-0400 SaO2% (BldA) [Mass fraction] 97 % Dr. Emanuel Macedo MD Work Phone: [facility] 01-24-2025 15:36-0400 Systolic blood pressure 136 mm[Hg] Dr. Emanuel Macedo MD Work Phone: 2(398)[phone] [place] [address] 01-24-2025 05:41-0400 Body mass index (BMI) [Ratio] 23.3 kg/m2 Dr. Emanuel Macedo MD Work Phone: [facility] 01-24-2025 05:41-04[address] Body weight [address] Emanuel Macedo MD Work Phone: [facility] 01-20-2025 10:03-0400 Body height 177.[address] Emanuel Macedo MD Work Phone: [facility] 10-05-2024 14:25-0500 Body weight 56.[address] Emanuel Macedo MD Work Phone: [facility] 08-21-2023 14:01-0500 Body temperature 98 [degF] BUSINESS DATA ANALYST-C Sofia Adame BUSINESS DATA ANALYST Work Phone: [facility] 08-21-2023 14:01-0500 Diastolic blood pressure 85 mm[Hg] BUSINESS DATA ANALYST-C Sofia Adame BUSINESS DATA ANALYST Work Phone: [facility] 08-21-2023 14:01-0500 Heart rate 98 /min BUSINESS DATA ANALYST-C Sofia Adame BUSINESS DATA ANALYST Work Phone: [facility] 08-21-2023 14:01-0500 Respiratory rate 18 /min BUSINESS DATA ANALYST-C Sofia Adame BUSINESS DATA ANALYST Work Phone: [facility] 08-21-2023 14:01-0500 SaO2% (BldA) [Mass fraction] 100 % BUSINESS DATA ANALYST-C Sofia Adame BUSINESS DATA ANALYST Work Phone: [facility] 08-21-2023 14:01-0500 Systolic blood pressure 111 mm[Hg] BUSINESS DATA ANALYST-C Sofia Adame BUSINESS DATA ANALYST Work Phone: [facility] 08-17-2023 08:00-0500 Body height 177.8 cm BUSINESS DATA ANALYST-C Sofia Adame BUSINESS DATA ANALYST Work Phone: [facility] 08-17-2023 08:00-0500 Body mass index (BMI) [Ratio] 25.2 kg/m2 BUSINESS DATA ANALYST-C Sofia Adame BUSINESS DATA ANALYST Work Phone: [facility] 08-17-2023 08:00-0500 Body weight 79.78 kg BUSINESS DATA ANALYSTXochilt Adame BUSINESS DATA ANALYST Work Phone: [facility] 08-16-2023 05:58-0500 Diastolic blood pressure 81 mm[Hg] [facility] 08-16-2023 05:58-0500 Heart rate 81 /min [facility] 08-16-2023 05:58-0500 Respiratory rate 18 /min [facility] 08-16-2023 05:58-0500 SaO2% (BldA) [Mass fraction] 100 % [facility] 08-16-2023 05:58-0500 Systolic blood pressure 128 mm[Hg] [facility] 08-16-2023 05:08-0500 Body temperature 97.6 [degF] [facility] 08-16-2023 05:00-0500 Body height 177.8 cm [facility] 08-16-2023 05:00-0500 Body mass index (BMI) [Ratio] 25.8 kg/m2 [facility] 08-16-2023 05:00-0500 Body weight 81.6 kg [facility] 05-13-2023 09:44-0400 Body temperature 97.7 [degF] ERNESTO ADAME DO [facility] 05-13-2023 09:44-0400 Diastolic Blood Pressure Non-Invasive 88 1 ERNESTO ADAME DO [facility] 05-13-2023 09:44-0400 Heart rate 79 /min ERNESTO ADAME DO [facility] 05-13-2023 09:44-0400 Reason For Taking VItal Signs ERNESTO ADAME DO [facility] 05-13-2023 09:44-0400 Respiratory rate 16 /min ERNESTO ADAME DO [facility] 05-13-2023 09:44-0400 Systolic Blood Pressure Non-Invasive 161 1 ERNESTO ADAME DO [facility] 05-13-2023 03:54-0400 Body temperature 98.42 [degF] ERNESTO ADAME DO [facility] 05-13-2023 03:54-0400 Diastolic Blood Pressure Non-Invasive 94 1 ERNESTO ADAME DO [facility] 05-13-2023 03:54-0400 Heart rate 77 /min ERNESTO ADAME DO [facility] 05-13-2023 03:54-0400 Respiratory rate 18 /min ERNESTO ADAME DO [facility] 05-13-2023 03:54-0400 Systolic Blood Pressure Non-Invasive 145 1 ERNESTO ADAME DO [facility] 05-12-2023 23:02-0400 Body temperature 97.7 [degF] ERNESTO ADAME DO [facility] 05-12-2023 23:02-0400 Diastolic Blood Pressure Non-Invasive 101 1 ERNESTO ADAME DO [facility] 05-12-2023 23:02-0400 Heart rate 71 /min ERNESTO ADAME DO [facility] 05-12-2023 23:02-0400 Respiratory rate 18 /min ERNESTO ADAME DO [facility] 05-12-2023 23:02-0400 Systolic Blood Pressure Non-Invasive 149 1 ERNESTO ADAME DO [facility] 05-12-2023 14:58-0400 Body height 175 cm ERNESTO ADAME DO [facility] 05-12-2023 14:58-0400 Body weight 76 kg ERNESTO ADAME DO [facility] 05-12-2023 14:58-0400 Body weight 24.82 kg/m2 ERNESTO ADAME DO [facility] 05-12-2023 14:21-0400 Heart rate 71 /min ERNESTO ADAME DO [facility] 05-12-2023 14:15-0400 Heart rate 73 /min ERNESTO ADAME DO [facility] 05-12-2023 14:10-0400 Heart rate 75 /min ERNESTO ADAME DO [facility] 05-12-2023 13:13-0400 Body temperature 96.26 [degF] ERNESTO ADAME DO [facility] 05-12-2023 13:05-0400 Respiratory Rate - Anes 8 br/min ERNESTO ADAME DO [facility] 05-12-2023 13:00-0400 Respiratory Rate - Anes 5 br/min ERNESTO ADAME DO [facility] 05-12-2023 12:55-0400 Respiratory Rate - Anes 8 br/min ERNESTO ADAME DO [facility] 05-12-2023 12:45-0400 Body temperature 96.8 [degF] ERNESTO ADAME DO [facility] 05-12-2023 10:32-0400 Heart rate 76 /min ERNESTO ADAME DO [facility] 05-12-2023 10:16-0400 Body height 175 cm ERNESTO ADAME DO [facility] 05-12-2023 10: Body weight 76 kg ERNESTO ADAME DO [facility] 05-12-2023 10: Body weight 24.82 kg/m2 ERNESTO ADAME DO [facility] Encounters Encounter Date Encounter Type Care Provider Facility Start: 02-10-2025 End: 02-10-[address] Myrtle Christiansen MD -[facility] Work Phone: Start: 02-10-2025 End: 02-10-[address] Emanuel Macedo MD Work Phone: [facility] Work Phone: Start: 02-09-2025 ambulatory Michelle LANG Facili ty:[facility] Start: 02-09-[address] Michelle Loco MD -[facility] Start: 02-08-2025 Non-patient / [facility] Work Phone: Start: 02-08-2025 ambulatory Sh[facility]ell [facility] Facility :[facility] Start: 02-02-2025 ambulatory Michelle LANG Facili ty:[facility] Start: 02-02-[address] Michelle Loco MD -[facility] Start: 01-25-2025 ambulatory Michelle LANG Facili ty:[facility] Start: 01-25-[address] Michelle Loco MD -[facility] Start: 01-24-2025 Non-patient / Non-visit Dr. Shorty Lea MD -[facility] Work Phone: Start: 01-23-2025 Non-patient / Non-visit Dr. Shorty Lea MD -[facility] Work Phone: Start: 01-22-2025 Non-patient / Non-visit Dr. Shorty Lea MD -[facility] Work Phone: Start: 01-21-2025 Non-patient / Non-visit Dr. Shorty Lea MD -[facility] Work Phone: Start: 01-20-2025 Non-patient / Non-visit Dr. Shorty Lea MD -[facility] Work Phone: Start: 01-19-2025 Non-patient / Non-visit Dr. Shorty Lea MD -[facility] Work Phone: Start: 01-19-2025 ambulatory Shorty Lea Facility: [facility] Start: 01-19-2025 End: 01-24-2025 Evaluation and management of inpatient Dr. Shorty Lea MD -[facility] Work Phone: Start: 10-05-2024 End: 10-05-[address] Obie Funk MD -[facility] [employer] Work Phone: Start: 10-05-2024 End: 10-05-2024 ambulatory Obie Funk Facility:[facility] Start: 09-30-2024 ambulatory Emanuel [facility] Facility:[facility] Start: 08-30-2024 End: 08-30-2024 ambulatory Emanuel [facility] Facility:[facility] Start: 05-21-2024 ambulatory SOFIA NASCIMENTO MANAGER ADMINISTRATION - UNIX ANALYST Facility:[facility] Start: 05-18-2024 ambulatory SERGIO NEELY MD Facility :[facility] Start: 05-05-2024 ambulatory Emanuel [facility] Facility:[facility] Start: 04-29-2024 End: 04-29-2024 ambulatory Emanuel [facility] Facility:[facility] Start: 04-23-2024 ambulatory Tristan Cohwdhury Facility: [facility] Start: 04-22-2024 End: 04-22-2024 ambulatory Marci Cesar Facility:[facility] Start: 04-21-2024 End: 04-26-2024 ambulatory Tristan Chowdhury Facility:[facility] Start: 2024 End: 2024 ambulatory Emanuel [facility] Facility:[facility] Start: 04-07-2024 ambulatory OBIE FUNK MD Facili ty:[facility] Start: 09-22-2023 End: 01-08-2024 ambulatory OBIE FUNK MD Facility:[facility] Start: 09-22-2023 End: 01-08-2024 Physical therapy management OBIE FUNK MD [facility] Start: 08-20-2023 Non-patient / Non-visit BUSINESS DATA ANALYST-C R monica Adame BUSINESS DATA ANALYST Work Phone: [facility] Work Phone: Start: 08-19-2023 Non-patient / Non-visit BUSINESS DATA ANALYST-C R monica Adame BUSINESS DATA ANALYST Work Phone: [facility] Work Phone: Start: 08-18-2023 Non-patient / Non-visit BUSINESS DATA ANALYST-C R monica Simmonskins BUSINESS DATA ANALYST Work Phone: [facility] Work Phone: Start: 08-17-2023 Non-patient / Non-visit BUSINESS DATA ANALYST-C R monica Wendi BUSINESS DATA ANALYST Work Phone: [facility] Work Phone: Start: 08-16-2023 Non-patient / Non-visit BUSINESS DATA ANALYST-C R farshadard Wendi BUSINESS DATA ANALYST Work Phone: [facility] Work Phone: Start: 08-16-2023 End: 08-21-2023 Evaluation and management of inpatient [facility] Work Phone: Start: 06-24-2023 End: 08-11-2023 ambulatory ERNESTO ADAME DO Facility:[facility] Start: 06-24-2023 End: 08-11-2023 Physical therapy management ERNESTO ADAME DO [facility] Start: 05-12-2023 End: 05-13-2023 Observation ERNESTO ADAME DO [facility] Start: 12-21-2020 End: 12-21-2020 Subsequent hospital visit by physician Xr Count Includes [facility] [place] Work Phone: Radiology Comment on above: [...] 01-24-[address] blood cell [address]. Emanuel Maecdo MD Work Phone: Start: 01-24-2025 Total iron [...] Work Phone: Comment on above: Performed at: [facility] [place], [place] [id number] Director: Harrison Villareal PhD, Phone: [phone] Start: 01-19-2025 Measurement of occul t blood in stool specimen using immunoassay Dr. Emanuel Macedo MD Work Phone: Start: 01-19-2025 Urnls dip stick/tabl et reagent auto microscopy Dr. Emanuel Macedo MD Work Phone: Start: 01-19-2025 CT of head without contrast Dr. Emaunel Macedo MD Work Phone: Start: 01-19-2025 Plain chest X-ray Dr. Marleny Macedo MD Work Phone: Start: 01-19-[address] e fraction Dr. Emanuel Macedo MD Work Phone: Start: 01-19-2025 Plain radiography of pelvis Dr. Emanuel Macedo MD Work Phone: Start: 08-17-2023 Plain X-ray of hip BUSINESS DATA ANALYST-C Sofia Adame BUSINESS DATA ANALYST Work Phone: Start: 08-17-2023 Plain X-ray of shoulder BUSINESS DATA ANALYST-C Sofia Simmonskins BUSINESS DATA ANALYST Work Phone: Start: 08-17-2023 Total replacement of right hip joint BUSINESS DATA ANALYST-C Sofia Simmonskins BUSINESS DATA ANALYST Work Phone: Start: 08-16-2023 Plain chest X-ray BUSINESS DATA ANALYST-C Sofia Simmonskins BUSINESS DATA ANALYST Work Phone: Start: 08-16-2023 Plain x-ray of pelvi s and lower extremity BUSINESS DATA ANALYST-C Sofia Simmonskins BUSINESS DATA ANALYST Work Phone: Start: 05-12-2023 Cervical arthrodesis by anterior technique ERNESTO ADAME DO Start: 12-21-2020 Radiologic exam ches t 2 views [facility] Work Phone: Extraction of cataract ANNETTE ADAME DO Comment on above: bilateral Plan of Treatment Date Care Activity Detail Author Start: 01-24-2025 Patient discharge [facility] Start: 01-24-2025 Care planning and problem solving actions [facility] Start: 01-20-2025 End: 01-20-2025 Administration of blood product [facility] Start: 01-20-2025 Vital signs measurements [facility] Start: 01-20-2025 Vital signs measurements [facility] Start: 01-20-2025 Vital signs measurements [facility] Start: 01-20-2025 Vital signs measurements [facility] Start: 01-20-2025 Vital signs measurements [facility] Start: 01-19-2025 Vital signs measurements [facility] Start: 01-19-2025 Vital signs measurements [facility] Start: 01-19-2025 Vital signs measurements [facility] Start: 01-19-2025 Vital signs measurements [facility] Start: 01-19-2025 Application of intermittent pneumatic compression device [facility] Start: 01-19-2025 [facility] Start: 01-19-2025 Vital signs measurements [facility] Start: 01-19-2025 Following clinical pathway protocol [facility] Start: 01-19-2025 Ambulation without limitation [facility] Start: 01-19-2025 Assessment of risk of venous thromboembolism [facility] Start: 01-19-2025 Documentation procedure [facility] Start: 01-19-2025 Insertion of catheter into peripheral vein [facility] Start: 01-19-2025 Measuring intake and output [facility] Start: 01-19-2025 Providing care according to standard [facility] Start: 01-19-2025 Referral to occupational therapist [facility] Start: 01-19-2025 Referral to service [facility] Start: 01-19-2025 [facility] Start: 01-19-2025 Vital signs measurements [facility] Start: 01-19-2025 Admission procedure [facility] Start: 01-19-2025 Administration of blood product [facility] Start: 01-19-2025 Patient referral to dietitian [facility] Start: 05-16-2024 Covid-19 Vaccine ( season) Covid-19 Vaccine ( season) [facility] Start: 05-16-2024 Influenza vaccination Influenza Vaccine (#1) [facility] Start: 08-27-2023 Blood chemistry [facility] Start: 08-26-2023 Blood chemistry [facility] Start: 08-25-2023 Blood chemistry [facility] Start: 08-24-2023 Blood chemistry [facility] Start: 08-23-2023 Blood chemistry [facility] Start: 08-22-2023 Blood chemistry [facility] Start: 08-21-2023 Patient discharge [facility] Start: 08-20-2023 Referral to service [facility] Start: 08-18-2023 Provision of overbed [facility] Start: 08-17-2023 Ambulation therapy management [facility] Start: 08-17-2023 Assessment of risk of venous thromboembolism [facility] Start: 08-17-2023 Catheterization of vein [facility] Start: 08-17-2023 Exercises [facility] Start: 08-17-2023 Following clinical pathway protocol [facility] Start: 08-17-2023 Introduction of urinary catheter [facility] Start: 08-17-2023 Measuring intake and output [facility] Start: 08-17-2023 Neurovascular assessment [facility] Start: 08-17-2023 Patient education [facility] Start: 08-17-2023 Procedure discontinued [facility] Start: 08-17-2023 Provision of activity privileges [facility] Start: 08-17-2023 Provision of overbed [facility] Start: 08-17-2023 Vital signs measurements [facility] Start: 08-17-2023 Wound care [facility] Start: 08-17-2023 [facility] Start: 08-17-2023 Measuring intake and output [facility] Start: 08-16-2023 Measuring intake and output [facility] Start: 08-16-2023 Measuring intake and output [facility] Start: 08-16-2023 Recommendation to continue with treatment [facility] Start: 08-16-2023 Referral to occupational therapist [facility] Start: 08-16-2023 Referral to service [facility] Start: 08-16-2023 Application of intermittent pneumatic compression device [facility] Start: 08-16-2023 Application of ice collar, cap or bag [facility] Start: 08-16-2023 Assessment of risk of venous thromboembolism [facility] Start: 08-16-2023 Consultation [facility] Start: 08-16-2023 Documentation procedure [facility] Start: 08-16-2023 Insertion of catheter into peripheral vein [facility] Start: 08-16-2023 Neurovascular assessment [facility] Start: 08-16-2023 Providing care according to standard [facility] Start: 08-16-2023 Referral to service [facility] Start: 08-16-2023 Skin care [facility] Start: 08-16-2023 [facility] Start: 08-16-2023 Measuring intake and output [facility] Start: 08-16-2023 Following clinical pathway protocol [facility] Start: 08-16-2023 Verification routine [facility] Start: 08-16-2023 Admission procedure [facility] Start: 08-16-2023 Hospital admission, emergency, from emergency room, medical nature [facility] Start: 08-16-2023 Plain chest X-ray Chest 1 View (Portable) [facility] Start: 08-16-2023 Plain x-ray of pelvis and lower extremity HIP, UNI W/ Pelvis 2-3 Views [facility] Start: 08-16-2023 XR Chest Single view [facility] Start: 08-16-2023 XR Pelvis and Hip Views [facility] Start: 08-16-2023 [facility] Start: 08-16-2023 Application of ice collar, cap or bag [facility] Start: 2021 RSV Vaccine (1 - 1-dose 60+ series) RSV Vaccine (1 - 1-dose 60+ series) [facility] Start: 2016 Prostate specific antigen measurement Prostate Cancer Screening Discussion [facility] Start: 2011 Shingrix Vaccine (1 of 2) Shingrix Vaccine (1 of 2) [facility] Start: 2006 Diabetes Screening Diabetes Screening [facility] Start: 2006 Screening for malignant neoplasm of colon [facility] Start: 1996 Lipid panel Lipid Screening [facility] Start: 1980 Urine microalbumin profile DTaP,Tdap,Td Vaccine (1 - Tdap) [facility] Start: 1979 Anxiety Screening Anxiety Screening [facility] Start: 1979 Depression Screening Depression Screening [facility] Start: 1979 Hepatitis C screening Hepatitis C Screening [facility] Start: 1979 HIV screening HIV Screening [facility] Ferritin [Mass/volum e] in Serum or Plasma [facility] Iron and Iron bindin g capacity panel - Serum or Plasma [facility] Patient referral [facility] Work Phone: Procedure [facility] Immunizations Immunization Date Immunization Notes Care Provider Jeff middleton 09-28-2015 tetanus toxoid, redu sreedhar diphtheria toxoid, and acellular pertussis vaccine, adsorbed ERNESTO ADAME DO [facility] 09-15-2014 tetanus and diphther ia toxoids, adsorbed, preservative free, for adult use (2 Lf of tetanus toxoid and 2 Lf of diphtheria toxoid) BUSINESS DATA ANALYST-C Sofia Adame NP Work Phone: [facility] 09-15-2014 tetanus and diphther ia toxoids, adsorbed, preservative free, for adult use (5 Lf of tetanus toxoid and 2 Lf of diphtheria toxoid) ERNESTO ADAME DO [facility] Payers Date Payer Category Payer Unknown [id number] 2024 Private Health Insurance [id number] 2024 Self-pay [id number] 2023 Unknown [id number] 2023 Unknown [id number] 2019 Private Health Insurance [facility] [id number] 2019-Present [phone] [facility] [id number] [place] [address] Open Access [id number] .3.034020.315 1960 Unknown [id number] 2.16.840.1.701106.3.579.2.6 27 1960 Unknown [id number] 2.16.840.1.951320.3.579.2.6 27 1961 Unknown [id number] 2.16.840.1.115719.3.579.2.6 27 1961 Unknown [id number] 2.16.840.1.331426.3.579.2.6 27 1961 Unknown [id number] 2.16.840.1.529374.3.579.2.6 27 Unknown [id number] 2.16.840.1.397483.3.579.2.4 62 Unknown [id number] 2.16.840.1.925095.3.579.2.4 62 Unknown [id number] 2.16.840.1.999681.3.579.2.4 62 Unknown [id number] 2.16.840.1.554172.3.579.2.4 62 Unknown [id number] 2.16.840.1.100240.3.579.2.4 62 Unknown [id number] 2.16.840.1.162202.3.579.2.4 62 Unknown [id number] 2.16.840.1.667172.3.579.2.4 62 Unknown [id number] 2.16.840.1.372494.3.579.2.4 62 Unknown [id number] 2.16.840.1.117018.3.579.2.4 62 Unknown [id number] 2.16.840.1.798835.3.579.2.4 62 Unknown [id number] 2.16.840.1.965891.3.579.2.4 62 Unknown [id number] 2.16.840.1.702253.3.579.2.4 62 Unknown [id number] 2.16.840.1.533005.3.579.2.4 62 Unknown [id number] 2.16.840.1.338080.3.579.2.4 62 Unknown [id number] 2.16.840.1.140298.3.579.2.4 62 Unknown [id number] 2.16.840.1.470958.3.579.2.4 62 Unknown [id number] 2.16.840.1.548864.3.579.2.4 62 Unknown [id number] 2.16.840.1.765893.3.579.2.4 62 Unknown [id number] 2.16.840.1.717415.3.579.2.4 62 Unknown [id number] 2.16.840.1.541935.3.579.2.4 62 Unknown [id number] 2.16.840.1.761095.3.579.2.4 62 Unknown [id number] 2.16.840.1.284482.3.579.2.4 62 Unknown [id number] 2.16.840.1.604793.3.579.2.4 62 Unknown [id number] 2.16.840.1.255840.3.579.2.4 62 Unknown [id number] 2.16.840.1.327204.3.579.2.4 62 Unknown [id number] 2.16.840.1.789522.3.579.2.4 62 Unknown [id number] 2.16.840.1.898829.3.579.2.4 62 Unknown [id number] 2.16.840.1.005668.3.579.2.4 62 Unknown [id number] 2.16.840.1.594281.3.579.2.4 62 Unknown [id number] 2.16.840.1.120245.3.579.2.4 62 Social History Date Type Detail Facility Start: 05-09-2023 Tobacco smoking status Heavy t obacco smoker (finding) [facility] Start: 1960 Sex Assigned At Male A [facility] Start: 08-16-2023 End: 08-16-2023 Tobacco smoking status MAIS Unknown if ever smoked [facility] Start: 03-30-2019 End: 01-20-2025 Tobacco smoking status MAIS Occasional tobacco smoker [facility] Start: 03-30-2019 Tobacco use and exposure Smokeless tobacco non-user [facility] Start: 12-21-2020 Alcoholic beverage intake Current drinker of alcohol (finding) [facility] Start: 08-23-2020 End: 12-21-2020 History of Social function [facility] Start: 08-23-2020 End: 12-21-2020 Tobacco use panel [facility] National Score (1-100), lower number is lower risk Not on file [facility] Start: 03-30-2019 Alcohol Comment 2-3 beers daily [facility] Start: 1960 Sex assigned at Not on file [facility] Start: 11-21-2020 End: 12-21-2020 Exposure to SARS-CoV-2 (event) Not sure [facility] Start: 02-10-2025 Tobacco smoking stat us MAIS Ex-smoker (finding) [facility] Medical Equipment Procedure Code Equipment Code Equipment Origin al Text Equipment Identifier Dates ([id number]) Ceramic femoral head prosthesis ()[id number] FDA Start: 08-17-2023 ([id number]) Acetabular shell ()[id number] FDA Start: 08-17-2023 ([id number]) Coated hip femur prosthesis, modular ()[id number] FDA Start: 08-17-2023 ([id number]) Non-constrained polyethylene acetabular liner ()[id number] FDA Start: 08-17-2023 (458859365) Acetabular shell ()[id number] FDA Start: 08-17-2023 (512446551) Orthopaedic bone screw, non-bioabsorbable, sterile ()[id number] [id number] FDA Start: 08-17-2023 ([id number]) Orthopaedic bone screw, non-bioabsorbable, sterile ()[id number] [id number])ftc FDA Start: 08-17-2023 Goals Date Patient Goal Desired Activity /State Functional Status Date Assessment Result Facility 01-24-2025 Functional status [facility] Work Phone: 09-22-2023 Functional Status Objective: Cardiovascular [...] bilat LE's Special tests: Homans sign - [facility] 08-21-2023 Functional status Patient Activity Dangle Feet [facility] Work Phone: 08-21-2023 Functional status Activity Abili ty With Assist of 1 [facility] Work Phone: 08-20-2023 Functional status Standard Walker [facility] Work Phone: 06-24-2023 Functional Status OBJECTIVE Posture: [...] seconds Dynamometer: R 64lbs, L 58 lbs [facility] 05-13-2023 Functional Status Multilevel silvia e, 1st floor bedroom, 1st floor bathroom, 1st floor riundry [facility] 05-13-[address] [facility]23 Functional Status bilateral knee high removed/off [facility] 05-13-2023 Functional Status [facility] 05-12-2023 Functional Status [facility] 05-12-2023 Functional Status [facility] 05-12-2023 Functional Status [facility] 05-12-2023 Functional Status [facility] 05-12-2023 Functional Status [facility] 05-12-2023 Functional Status More than 8 hours [facility] Mental Status Date Assessment Result Facility 01-24-2025 Cognitive function Voice/Name [facility] Work Phone: 08-21-2023 Cognitive function Voice/Name [facility] Work Phone: 05-13-2023 Mental Status Orientation Oriented x 4 [facility] 05-12-2023 Mental Status [facility] 05-12-2023 Mental Status [facility] 05-12-2023 Mental Status [facility] 05-12-2023 Mental Status [facility] Clinical Notes 12-21-2020 to 01-24-2025 Note Date & Type Note Facility 01-24-2025 Consult note [facility] 01-24-2025 Discharge summary Note Date/Time January 24, 2025 4:30pm [facility] Medical Records Department [address] [place] [address] Discharge Summary 01/24/25 1629 MR#: [id number] Acct: [id number] Name: KIM CALDWELL Rep #:[id number] : 1960 64 From: Shorty Knight PCP: Dr. Emanuel Macedo MD Status:ADM I N Location: [place] [address] Providers Date of Admission: 01/19/25 Date of [...] Serum sodium was 126 in August 2024. [id number]. Rapidly related to chronic alcohol use with [...] cigarette smoking and chronic alcohol use dependence, [facility] 24-hour monitoring ordered. 8. DVT prophylaxis: Pharmacological [...] Neut % (Auto) 58.8, Lymph % (Auto)24.7, Long % (Auto) 11.5 H, Eos % (Auto) [...] in before D/C Order can be placed): Jail Facility Charges/Coding Visit Charges Inpatient E&M: 08517 Disch Hosp >30min 01/24/25 1630 <Electronically signed by Shorty Lea MD> Cosigner Signature (if applicable): CC: Dr. Shorty Lea MD; Dr. Emanuel Macedo MD~ Signed [facility] Work Phone: 1(864) 573-683105-12-2025 Discharge summary Author Shorty Lea [facility] Note Date/Time January 24, 2025 3:18p m [facility] Medical Records Department [address] [place] [address] Transfer to [facility] MR#: [id number] Acct: [id number] Name: KIM CALDWELL Rep #:[id number] : 1960 64 From: Shorty Knight PCP: Dr. Emanuel Macedo MD Status:ADM I N Certification of patient admission REQUIRED AT TIME OF ADMISSION. I CERTIFY THAT POST-HOSPITAL F SERVICES ARE REQUIRED TO BE GIVEN ON AN IN-PATIENT BASIS BECAUSE OF THE ABOVE NAMED PATIENT'S NEED FOR PRISON CARE ON A CONTINUING BASIS FOR THE CONDITION(S) FOR WHICH HE/SHE WAS RECEIVING IN-PATIENT HOSPITAL SERVICES PRIOR TO HIS/HER TRANSFER TO THE [facility]. 01/24/25 1518<Electronically signed by Shorty Lea MD> [...] Serum sodium was 126 in August 2024. [id number]. Rapidly related to chronic alcohol use with [...] cigarette smoking and chronic alcohol use dependence, [facility] 24-hour monitoring ordered. 8. DVT prophylaxis: Pharmacological [...] in before D/C Order can be placed): Jail Facility 01/24/25 8513 <Electronically signed by Shorty Lea MD> Cosigner Signature (if applicable): CC: Dr. Emanuel Macedo MD ~ [facility] Work Phone: 1(126) 451-892805-12-2025 Discharge summary [facility] Medical Records Department [address] [place] [address] Discharge Summary 01/24/25 1629 MR#: [id number] Acct: [id number] Name: KIM CALDWELL Rep #:[id number] : 1960 64 From: Shroty Knight PCP: Dr. Emanuel Macedo MD Status:ADM I N Location: [place] [address] Providers Date of Admission: 01/19/25 Date of [...] Serum sodium was 126 in August 2024. [id number]. Rapidly related to chronic alcohol use with [...] cigarette smoking and chronic alcohol use dependence, [facility] 24-hour monitoring ordered. 8. DVT prophylaxis: Pharmacological [...] Neut % (Auto) 58.8, Lymph % (Auto)24.7, Long % (Auto) 11.5 H, Eos % (Auto) [...] in before D/C Order can be placed): Jail Facility Charges/Coding Visit Charges Inpatient E&M: 57058 Disch Hosp >30min 01/24/25 1630 Cosigner Signature (if applicable): CC: Dr. Shorty Lea MD; Dr. Emanuel Macedo MD~ Signed [facility]05-12-[address] [facility] Discharge summary [facility] Medical Records Department [address] [place] [address] Transfer to [facility] MR#: [id number] Acct: [id number] Name: KIM CALDWELL Rep #:[id number] : 1960 64 From: Shorty Knight PCP: Dr. Emanuel Macedo MD Status:ADM I N Certification of patient admission REQUIRED AT TIME OF ADMISSION. I CERTIFY THAT POST-HOSPITAL F SERVICES ARE REQUIRED TO BE GIVEN ON AN IN-PATIENT BASIS BECAUSE OF THE ABOVE NAMED PATIENT'S NEED FOR PRISON CARE ON A CONTINUING BASIS FOR THE [...] Serum sodium was 126 in August 2024. Djslt472. Rapidly related to chronic alcohol use with [...] cigarette smoking and chronic alcohol use dependence, [facility] 24-hour monitoring ordered. 8. DVT prophylaxis: Pharmacological [...] for Your Visit: Severe anemia Attending Provider: Sohrty Lea Primary Care Provider: Emanuel Macedo Chi [...] in before D/C Order can be placed): Jail Facility 01/24/25 1518 Cosigner Signature (if applicable): CC: Dr. Emanuel Macedo MD ~ [facility]05-12-2025 Progress note Author Shorty Lea [facility] Note Date/Time January 24, 2025 12:04 pm [facility] Medical Records Department [address] [facility] [place] [address] Progress Note - Hospitalist 01/24/25 1152 MR#: [id number] Acct: [id number] Name: KIM CALDWELL Rep #:[id number] : 1960 64 From: Shorty Knight PCP: Dr. Emanuel Macedo MD Status:ADM I N Location: [place] [address] Reason for Visit Reason for Visit: Diagnoses [...] Neut % (Auto) 58.8, Lymph % (Auto)24.7, Long % (Auto) 11.5 H, Eos % (Auto) [...] Serum sodium was 126 in August 2024. [id number]. Rapidly related to chronic alcohol use with [...] cigarette smoking and chronic alcohol use dependence, [facility] 24-hour monitoring ordered. 8. DVT prophylaxis: Pharmacological [...] if needed Charges/Coding Visit Charges Inpatient E&M: 93718 Subs Hosp L2 01/24/25 1203 <Electronically signed by Shorty Lea MD> Cosigner Signature (if applicable): CC: ~ Signed [facility] Work Phone: 1(126) 426-440805-12-2025 Progress note [facility] Medical Records Department [address] [place] [address] Progress Note - Hospitalist 01/24/25 1152 MR#: [id number] Acct: [id number] Name: KIM CALDWELL Rep #:[id number] : 1960 64 From: Shorty Knight PCP: Dr. Emanuel Macedo MD Status:ADM I N Location: [place] [address] Reason for Visit Reason for Visit: Diagnoses [...] Neut % (Auto) 58.8, Lymph % (Auto)24.7, Long % (Auto) 11.5 H, Eos % (Auto) [...] Serum sodium was 126 in August 2024. [id number]. Rapidly related to chronic alcohol use with [...] cigarette smoking and chronic alcohol use dependence, [facility] 24-hour monitoring ordered. 8. DVT prophylaxis: Pharmacological [...] if needed Charges/Coding Visit Charges Inpatient E&M: 08247 Subs Hosp L2 01/24/25 1204 Cosigner Signature (if applicable): CC: ~ Signed [facility]05-11-2025 Progress note Author Shorty Lea [facility] Note Date/Time January 23, 2025 12:46 pm [facility] Medical Records Department [address] [place] [address] Progress Note - Hospitalist 01/23/25 1242 MR#: [id number] Acct: [id number] Name: KIM CALDWELL Rep #:[id number] : 1960 64 From: Shorty Knight PCP: Dr. Emanuel Macedo MD Status:ADM I N Location: [place] [address] Reason for Visit Reason for Visit: Diagnoses [...] Serum sodium was 126 in August 2024. [id number]. Rapidly related to chronic alcohol use with [...] cigarette smoking and chronic alcohol use dependence, [facility] 24-hour monitoring ordered. 8. DVT prophylaxis: Pharmacological [...] if needed Charges/Coding Visit Charges Inpatient E&M: 51148 Subs Hosp L2 01/23/25 1246 <Electronically signed by Shorty Lea MD> Cosigner Signature (if applicable): CC: ~ Signed [facility] Work Phone: 1(707) 675-131005-11-2025 Progress note [facility] Medical Records Department [address] [place] [address] Progress Note - Hospitalist 01/23/25 1242 MR#: [id number] Acct: [id number] Name: KIM CALDWELL Rep #:[id number] : 1960 64 From: Shorty Knight PCP: Dr. Emanuel Macedo MD Status:ADM I N Location: [place] [address] Reason for Visit Reason for Visit: Diagnoses [...] Serum sodium was 126 in August 2024. [id number]. Rapidly related to chronic alcohol use with [...] cigarette smoking and chronic alcohol use dependence, [facility] 24-hour monitoring ordered. 8. DVT prophylaxis: Pharmacological [...] if needed Charges/Coding Visit Charges Inpatient E&M: 08001 [facility] Hosp L2 01/23/25 1246 Cosigner Signature (if applicable): CC: ~ Signed [facility]05-10-2025 Progress note Author Shorty Lea [facility] Note Date/Time January 22, 2025 1:10p [facility] Medical Records Department [address] [place] [address] Progress Note - Hospitalist 01/22/25 1305 MR#: [id number] Acct: [id number] Name: KIM CALDWELL Rep #:[id number] : 1960 64 From: Shorty Knight PCP: Dr. Emanuel Macedo MD Status:ADM I N Location: [place] [address] Reason for Visit Reason for Visit: Diagnoses [...] (Auto) 77.1 H, Lymph % (Auto)14.3 L, Long % (Auto) 7.5, Eos % (Auto) 0.0, [...] Serum sodium was 126 in August 2024. Vkwkn971. Rapidly related to chronic alcohol use with [...] shock if needed Total time spent in foug-oo-yrfj encounter in discussion of advanced directive 17 [...] (Auto) 77.1 H, Lymph % (Auto)14.3 L, Long % (Auto) 7.5, Eos % (Auto) 0.0, [...] Ratio 1.1 Charges/Coding Visit Charges Inpatient E&M: 77092 Subs Hosp L2 01/22/25 1310 <Electronically signed by Shorty Lea MD> Cosigner Signature (if applicable): CC: ~ Signed [facility] Work Phone: 1(229) 798-761005-10-2025 Progress note [facility] Medical Records Department [address] [place] [address] Progress Note - Hospitalist 01/22/25 1305 MR#: [id number] Acct: [id number] Name: KIM CALDWELL Rep #:[id number] : 1960 64 From: Shorty Knight PCP: Dr. Emanuel Macedo MD Status:ADM I N Location: [place] [address] Reason for Visit Reason for Visit: Diagnoses [...] (Auto) 77.1 H, Lymph % (Auto)14.3 L, Long % (Auto) 7.5, Eos % (Auto) 0.0, [...] Serum sodium was 126 in August 2024. Ovyqb839. Rapidly related to chronic alcohol use with [...] cigarette smoking and chronic alcohol use dependence, [facility] 24-hour monitoring ordered. 8. DVT prophylaxis: Pharmacological [...] shock if needed Total time spent in lzqu-cs-wufy encounter in discussion of advanced directive 17 [...] (Auto) 77.1 H, Lymph % (Auto)14.3 L, Long % (Auto) 7.5, Eos % (Auto) 0.0, [...] Albumin/GlobulinRatio 1.1 Charges/Coding Visit Charges Inpatient E&M: 85345 Subs Hosp L2 01/22/25 1310 Cosigner Signature (if applicable): CC: ~ Signed [facility]05-09-2025 Progress note Author Shorty Lea [facility] Note Date/Time January 21, 2025 4:15pm [facility] Medical Records Department [address] [place] [address] Progress Note - Hospitalist 01/21/25 1611 MR#: [id number] Acct: [id number] Name: KIM CALDWELL Rep #:[id number] : 1960 64 From: Shorty Knight PCP: Dr. Emanuel Macedo MD Status:ADM I N Location: [place] [address] Reason for Visit Reason for Visit: Diagnoses [...] % (Auto) 67.5, Lymph % (Auto) 21.4, Long % (Auto) 8.0, Eos % (Auto) 1.3, Baso % (Auto) 0.9, Absolute Neuts (auto) 1.5 L, Absolute Lymphs (auto) 0.48 L, Nucleated RBC % 0, Platelet Estimate MKD DEC, Anisocytosis 1+, Ovalocytes 1+, Acanthocytes (Spur) 1+, Pcwsbz700 L, Potassium 3.2 L, Chloride 100, Carbon [...] 3. Degenerative changes as above. Reading Location: [facility] Foot X-Ray 01/21/25 11:00 IMPRESSION: 1. Soft tissue swelling without acute fracture. 2. If symptoms persist, repeat radiograph in 10-14 days recommended. Reading Location: [facility] Physical Exam Narrative Left great toe [...] Serum sodium was 126 in August 2024. Gtaiq360. Rapidly related to chronic alcohol use with [...] cigarette smoking and chronic alcohol use dependence, [facility] 24-hour monitoring ordered. 8. DVT prophylaxis: Pharmacological [...] shock if needed Total time spent in kwxv-ie-jdui encounter in discussion of advanced directive 17 [...] TSH 2.000 Charges/Coding Visit Charges Inpatient E&M: 37605 Subs Hosp L2 01/21/25 1615 <Electronically signed by Shorty Lea MD> Cosigner Signature (if applicable): CC: ~ Signed [facility] Work Phone: 1(738) 328-539605-09-2025 Progress note [facility] Medical Records Department [address] [place] [address] Progress Note - Hospitalist 01/21/25 1611 MR#: [id number] Acct: [id number] Name: KIM CALDWELL Rep #:[id number] : 1960 64 From: Shorty Knight PCP: Dr. Emanuel Macedo MD Status:ADM I N Location: [place] [address] Reason for Visit Reason for Visit: Diagnoses [...] % (Auto) 67.5, Lymph % (Auto) 21.4, Long % (Auto) 8.0, Eos % (Auto) 1.3, Baso % (Auto) 0.9, Absolute Neuts (auto) 1.5 L, Absolute Lymphs (auto) 0.48 L, Nucleated RBC % 0, Platelet Estimate MKD DEC, Anisocytosis 1+, Ovalocytes 1+, Acanthocytes (Spur) 1+, Xpqqru880 L, Potassium 3.2 L, Chloride 100, Carbon [...] 3. Degenerative changes as above. Reading Location: [facility] Foot X-Ray 01/21/25 11:00 IMPRESSION: 1. Soft tissue swelling without acute fracture. 2. If symptoms persist, repeat radiograph in 10-14 days recommended. Reading Location: [facility] Physical Exam Narrative Left great toe [...] Serum sodium was 126 in August 2024. Jpitf882. Rapidly related to chronic alcohol use with [...] cigarette smoking and chronic alcohol use dependence, [facility] 24-hour monitoring ordered. 8. DVT prophylaxis: Pharmacological [...] shock if needed Total time spent in efyb-vv-lnnu encounter in discussion of advanced directive 17 [...] TSH 2.000 Charges/Coding Visit Charges Inpatient E&M: 63692 Subs Hosp L2 01/21/25 1615 Cosigner Signature (if applicable): CC: ~ Signed [facility]05-09-2025 Radiology Diagnostic study note [facility] Imaging Services [address] [place], [place] [address] Foot min 3 Views MR#: [id number] Acct: [id number] Name: KIM CALDWELL Rep #: [id number] : 1960 M 64 From: Lazara Paulson MD PCP: Dr. Emanuel aMcedo MD Status: ADM I N Study:Foot min 3 Views Date of Exam: 06/09 Exam# [id number] Ordering Dr: Stuart Lea MD EXAM: XR [...] radiograph in 10-14 days recommended. Reading Location: [facility] CC: Dr. Shorty Lea MD; Dr. Emanuel Macedo MD ~ Communications Manager: Signed [facility]05-09-2025 Radiology Diagnostic study note [facility] Imaging Services [address] [place] [address] Foot min 3 Views MR#: [id number] Acct: [id number] Name: KIM CALDWELL Rep #: [id number] : 1960 M 64 From: Lazara Paulson MD PCP: Dr. Emanuel Macedo MD Status: ADM I N Study:Foot min 3 Views Date of Exam: 06/09 Exam# [id number] Ordering Dr: Stuart Lea MD EXAM: XR [...] 3. Degenerative changes as above. Reading Location: [facility] CC: Dr. Shorty Lea MD; Dr. Emanuel Macedo MD ~ Communications Manager: Signed [facility]05-08-2025 Progress note Author Shorty Lea [facility] Note Date/Time January 20, 2025 4:08pm [facility] Medical Records Department [address] [place] [address] Progress Note - Hospitalist 01/20/25 1014 MR#: [id number] Acct: [id number] Name: KIM CALDWELL Rep #:[id number] : 1960 64 From: Shorty Knight PCP: Dr. Emanuel Macedo MD Status:ADM I N Location: [place] [address] Reason for Visit Reason for Visit: Diagnoses [...] Clarity Clear, Urine pH 7.0, Ur Specific [place] 1.005, Urine Protein 30 H, Urine Glucose [...] Serum sodium was 126 in August 2024. Ymwia794. Rapidly related to chronic alcohol use with [...] cigarette smoking and chronic alcohol use dependence, [facility] 24-hour monitoring ordered. 8. DVT prophylaxis: Pharmacological [...] shock if needed Total time spent in szqf-zp-rypr encounter in discussion of advanced directive 17 [...] TSH 2.000 Charges/Coding Visit Charges Inpatient E&M: 02646 Subs Hosp L2 01/20/25 1608 <Electronically signed by Shorty Lea MD> Cosigner Signature (if applicable): CC: ~ Signed [facility] Work Phone: 1(685) 849-643005-08-2025 Progress note [facility] Medical Records Department [address] [place] [address] Progress Note - Hospitalist 01/20/25 1014 MR#: [id number] Acct: [id number] Name: KIM CALDWELL Rep #:[id number] : 1960 64 From: Shorty Knight PCP: Dr. Emanuel Macedo MD Status:ADM I N Location: [place] [address] Reason for Visit Reason for Visit: Diagnoses [...] Clarity Clear, Urine pH 7.0, Ur Specific [place] 1.005, Urine Protein 30 H, Urine Glucose [...] Serum sodium was 126 in August 2024. Jkrmv206. Rapidly related to chronic alcohol use with [...] cigarette smoking and chronic alcohol use dependence, [facility] 24-hour monitoring ordered. 8. DVT prophylaxis: Pharmacological [...] shock if needed Total time spent in lcux-ts-otgc encounter in discussion of advanced directive 17 [...] TSH 2.000 Charges/Coding Visit Charges Inpatient E&M: 63423 Subs Hosp L2 01/20/25 1608 Cosigner Signature (if applicable): CC: ~ Signed [facility]05-07-2025 History and physical note Author Shorty Lea [facility] Note Date/Time January 19, 2025 3:02pm [facility] Medical Records Department [address] [place] [address] H&P Exam - Hospitalist 01/19/25 1032 MR#: [id number] Acct: [id number] Name: KIM CALDWELL Rep #:[id number] : 1960 64 From: Shorty Knight PCP: Dr. Emanuel Macedo MD Status:ADM I N Location: [place] [address] HPI - General General Date of Admission: [...] day. Denies [place] or other substance use [facility] Medical History Closed fracture of right hip [...] 85.5 H, Lymph % (Auto) 8.3 L, Long % (Auto) 4.4, Eos % (Auto) 0.9, [...] with femoral prosthesis partially imaged. Reading Location: [facility] Chest X-Ray 01/19/25 08:20 IMPRESSION: No evidence of acute disease. Reading Location: [facility] Brain CT 01/19/25 08:22 IMPRESSION: No intracranial hemorrhage, mass effect or calvarial fracture. Volume loss, atrophy appears moderate for age. Reading Location: [facility] Assessment & Plan Assessment/Plan (1) Chronic hyponatremia: [...] Serum sodium was 126 in August 2024. Jjdil756. Rapidly related to chronic alcohol use with [...] cigarette smoking and chronic alcohol use dependence, [facility] 24-hour monitoring ordered. 8. DVT prophylaxis: Pharmacological [...] shock if needed Total time spent in ycxo-ax-fudu encounter in discussion of advanced directive 17 [...] 85.5 H, Lymph % (Auto) 8.3 L, Long % (Auto) 4.4, Eos % (Auto) 0.9, [...] See Detail Charges/Coding Visit Charges Inpatient E&M: 16689 Init Hosp L3 Procedures Hospitalists Procedures: 63433 Advncd Care Plan 30 Min 01/19/25 1502 <Electronically signed by Shorty Lea MD> Cosigner Signature (if applicable): CC: Dr. Shorty Lea MD; Dr. Emanuel Macedo MD~ Signed [facility] Work Phone: 1(691) 286-465205-07-2025 Discharge summary Author Milagro [facility] Note Date/Time January 19, 2025 2:49pm [facility] Medical Records Department [address] [place] [address] Emergency Department Summary 01/19/25 MR#: [id number] Acct: [id number] Name: KIM CALDWELL Rep #:[id number] : 1960 64 From: Milagro Gonzalez PCP: Dr. mEanuel Macedo MD Status:ADM I N Location: [address] History of Present Illness Chief Complaint: [...] at this time. No sick contacts reported. [facility] Medical History Closed fracture of right hip [...] 85.5 H Lymph % (Auto) 8.3 L Long % (Auto) 4.4 Eos % (Auto) 0.9 [...] with femoral prosthesis partially imaged. Reading Location: [facility] Chest X-Ray 01/19/25 08:20 IMPRESSION: No evidence of acute disease. Reading Location: [facility] Brain CT 01/19/25 08:22 IMPRESSION: No intracranial hemorrhage, mass effect or calvarial fracture. Volume loss, atrophy appears moderate for age. Reading Location: [facility] Management Discussion w/another healthcare provider: Hospitalist Discharge Plan Triage Chief Complaint: Fall ED Provider: Milagro Sanders Dx/Rx/DC Orders Clinical Impression: Anemia, Acute hyponatremia, Acute hypokalemia, Hypomagnesemia, Weakness generalized Primary Care Provider: Emanuel Macedo Chi Disposition Disposition: Acute Care Hospital [facility] What to do if you have Problems For any increased pain, shortness of breath, bleeding, nausea or vomiting, chestpain, or any unexpected problems, contact your Primary Care Provider. Call [facility] ([phone]) or report to the closest Emergency Room. Call 911 if necessary. 01/19/25 1449 <Electronically signed by Milagro Sanders DO> Cosigner Signature (if applicable): CC: Dr. Emanuel Macedo MD ~ Signed [facility] Work Phone: 1(563) 486-750205-07-2025 History and physical note [facility] Medical Records Department [address] [place] [address] H&P Exam - Hospitalist 01/19/25 1032 MR#: [id number] Acct: [id number] Name: KIM CALDWELL Rep #:[id number] : 1960 64 From: Shorty Knight PCP: Dr. Emanuel Macedo MD Status:ADM I N Location: [place] [address] HPI - General General Date of Admission: [...] day. Denies [place] or other substance use [facility] Medical History Closed fracture of right hip [...] 85.5 H, Lymph % (Auto) 8.3 L, Long % (Auto) 4.4, Eos % (Auto) 0.9, [...] with femoral prosthesis partially imaged. Reading Location: [facility] Chest X-Ray 01/19/25 08:20 IMPRESSION: No evidence of acute disease. Reading Location: [facility] Brain CT 01/19/25 08:22 IMPRESSION: No intracranial hemorrhage, mass effect or calvarial fracture. Volume loss, atrophy appears moderate for age. Reading Location: [facility] Assessment & Plan Assessment/Plan (1) Chronic [...] Serum sodium was 126 in August 2024. Xrvbz614. Rapidly related to chronic alcohol use with [...] cigarette smoking and chronic alcohol use dependence, [facility] 24-hour monitoring ordered. 8. DVT prophylaxis: Pharmacological [...] shock if needed Total time spent in oekl-cn-aykf encounter in discussion of advanced directive 17 [...] 85.5 H, Lymph % (Auto) 8.3 L, Long % (Auto) 4.4, Eos % (Auto) 0.9, [...] See Detail Charges/Coding Visit Charges Inpatient E&M: 59809 Init Hosp L3 Procedures Hospitalists Procedures: 68445 Advncd Care Plan 30 Min 01/19/25 1502 Cosigner Signature (if applicable): CC: Dr. Shorty Lea MD; Dr. Emanuel Macedo MD~ Signed [facility]05-07-2025 Discharge summary [facility] Medical Records Department [address] [place] [address] Emergency Department Summary 01/19/25 MR#: [id number] Acct: [id number] Name: KIM CALDWELL Rep #:[id number] : 1960 64 From: Milagro Gonzalez PCP: Dr. Emanuel Macedo MD Status:ADM I N Location: [place] [address] HPI History of Present Illness Chief Complaint: [...] at this time. No sick contacts reported. [facility] Medical History Closed fracture of right hip [...] 85.5 H Lymph % (Auto) 8.3 L Long % (Auto) 4.4 Eos % (Auto) 0.9 [...] with femoral prosthesis partially imaged. Reading Location: [facility] Chest X-Ray 01/19/25 08:20 IMPRESSION: No evidence of acute disease. Reading Location: [facility] Brain CT 01/19/25 08:22 IMPRESSION: No intracranial hemorrhage, mass effect or calvarial fracture. Volume loss, atrophy appears moderate for age. Reading Location: [facility] Management Discussion w/another healthcare provider: Hospitalist Discharge Plan Triage Chief Complaint: Fall ED Provider: Milagro Sanders Dx/Rx/DC Orders Clinical Impression: Anemia, Acute hyponatremia, Acute hypokalemia, Hypomagnesemia, Weakness generalized Primary Care Provider: Emanuel Macedo Chi Disposition Disposition: Acute Care Hospital [facility] What to do if you have Problems For any increased pain, shortness of breath, bleeding, nausea or vomiting, chestpain, or any unexpected problems, contact your Primary Care Provider. Call [facility] ([phone]) or report tothe closest Emergency Room. Call 911 if necessary. 01/19/25 1449 Cosigner Signature (if applicable): CC: Dr. Emanuel Macedo MD ~ Signed [facility]05-07-2025 Evaluation note* Diagnosis Onset Date Resolution Status Admit Date Chronic hyponatremia chronic January 19, 2025 10:30am [facility] Work Phone: 1(237) 543-696805-07-2025 Evaluation note* Diagnosis Onset Date Resolution Status Admit Date Chronic hyponatremia inactive January 19, 2025 10:30am [facility] Work Phone: [phone]) 994-121205-07-2025 Radiology Diagnostic study note [facility] Imaging Services [address] [place], [place] [address] Pelvis 1 or 2 Views MR#: [id number] Acct: [id number] Name: KIM CALDWELL Rep #: [id number] : 1960 M 64 From: Merlin Vaca MD PCP: Dr. Emanuel Macedo MD Status: REG E R Study:Pelvis 1 or 2 Views Date of Exam: 01/19/25 Exam# [id number] Ordering Dr: Jass Sanders DO PROCEDURE: PELVIS [...] with femoral prosthesis partially imaged. Reading Location: [facility] CC: Dr. Milagro Sanders DO; Dr. Emanuel Macedo MD ~ Communications Manager: Signed [facility]05-07-2025 Radiology Diagnostic study note [facility] Imaging Services [address] [place] [address] Chest 1 View (Portable) MR#: [id number] Acct: [id number] Name: KIM CALDWELL Rep #: [id number] : 1960 M 64 From: Merlin Vaca MD PCP: Dr. Emanuel Macedo MD Status: REG E R Study:Chest 1 View (Portable) Date of Exam: 01/19/25 Exam# [id number] Ordering Dr: Jass Sanders DO PROCEDURE: CHEST [...] No evidence of acute disease. Reading Location: [facility] CC: Dr. Milagro Sanders DO; Dr. Emanuel Macedo MD ~ Communications Manager: Signed [facility]05-07-2025 Radiology Diagnostic study note [facility] Imaging Services [address] [place] [address] Brain/Head without Contrast MR#: [id number] Acct: [id number] Name: KIM CALDWELL Rep #: [id number] : 1960 M 64 From: Merlin Vaca MD PCP: Dr. Emanuel Macedo MD Status: REG E R Study:Brain/Head without Contrast Date of Exa m: 01/19/25 Exam# [id number] Ordering Dr: Jass Sanders DO PROCEDURE: BRAIN/HEAD [...] atrophy appears moderate for age. Reading Location: [facility] CC: Dr. Milagro Sanders DO; Dr. Emanuel Macedo MD ~ Communications Manager: Signed [facility]08-12-2024 [facility]12-06-2023 Progress note Author Shorty Lea [facility] August 20, 2023 5:18pm Note Date/Time August 20, 2023 5 :18pm [facility] Medical Records Department [address] [place] [address] Progress Note - Hospitalist 08/20/23 1715 MR#: [id number] Acct: [id number] Name: KIM CALDWELL Rep #:[id number] : 1960 63 From: Shorty Knight PCP: PASTORA Luz tus:ADM IN Location: [place] [address] Reason for Visit Reason for Visit: Diagnoses [...] (Auto) 72.6 H, Lymph % (Auto) 12.1L, Long % (Auto) 9.8, Eos % (Auto) 4.1, [...] twice daily. Charges/Coding Visit Charges Inpatient E&M: 68925 Subs Hosp L2 08/20/23 1718 <Electronically signed by Shorty Lea MD> Cosigner Signature (if applicable): CC: ~ Signed [facility] Work Phone: 1(790) 700-758312-06-2023 Discharge summary Author Shorty Lea [facility] August 21, 2023 12:49pm Note Date/Time August 20, 2023 3 :53pm [facility] Medical Records Department [address] [place] [address] Discharge Summary 08/21/23 1248 MR#: [id number] Acct: [id number] Name: KIM CALDWELL Rep #:[id number] : 1960 63 From: Shorty Knight PCP: PASTORA Luz tus:ADM IN Location: [place] [address] Providers Date of Admission: 08/16/23 Date of [...] (Auto) 72.6 H, Lymph % (Auto) 12.1L, Long % (Auto) 9.8, Eos % (Auto) 4.1, [...] PO BID Qty: 0 0RF Rx Instructions: Ntsu-ksw-abliqxg. acetaminophen 500 mg Tablet 1,000 mg PO Q8 Qty: 0 0RF Rx Instructions: Xslj-cfg-zicvley. 1000 mg every 8 hourly for 1 [...] Weeks (For hip fracture.) Sofia Adame BUSINESS DATA ANALYST, BUSINESS DATA ANALYST-C [Primary Care Provider] - In 1 Week (Patient has constipation normal stool softener.) Disposition Disposition (needs filled in before D/C Order can be placed): Home Health Service Charges/Coding Visit Charges Inpatient E&M: 49760 Disch Hosp >30min 08/20/23 1553 <Electronically signed [...] Adame; Dr. Shorty Lea MD ~* Signed [facility] Work Phone: 1(612) 671-473312-06-2023 Discharge summary Author Shorty Lea [facility] August 21, 2023 12:44pm Note Date/Time August 20, 2023 3 :35pm [facility] Medical Records Department [address] [place] [address] Instructions for Home/Discharge Instructions 08/21/23 1025 MR#: [id number] Acct: [id number] Name: KIM CALDWELL Rep #:[id number] : [...] PO BID Qty: 0 0RF Rx Instructions: Yvxg-tst-jquontv. acetaminophen 500 mg Tablet 1,000 mg PO Q8 Qty: 0 0RF Rx Instructions: Xlrb-xup-uzuzqbw. 1000 mg every 8 hourly for 1 [...] Referrals / Follow Up: Sofia Adame BUSINESS DATA ANALYST, BUSINESS DATA ANALYST-C [Primary Care Provider] - In 1 Week (Patient has constipation normal stool softener.) Obie Funk MD [Med Staff - Active Staff] - Within 2 Weeks (For hip fracture.) Disposition Disposition (needs filled in before D/C Order can be placed): Home Health Service 08/20/23 1546<Electronically signed by Shorty Lea MD>Shorty Lea MD CC: BUSINESS DATA ANALYST-C Sofia Adame; Dr. Patrice Watkins DO; Dr. Amaris Marks MD; Dr. Obie Funk MD ~ Signed ADDENDUM by Dr. Shorty Lea MD on 08/21/23 at 1244 Patient could not go yesterday as it was evening. 08/21/23 1244<Electronically signed by Shorty Lea MD>Shorty Lea MD cc: BUSINESS DATA ANALYSTYangC Sofia Adame; Dr. Patrice Watkins DO; Dr. Amaris Marks MD; Dr. Obie Funk MD ~* Signed [facility] Work Phone: 1(206) 371-465712-05-2023 Progress note Author Amaris [facility] August 19, 2023 3:39pm Note Date/Time August 19, 2023 1 1:07am [facility] Medical Records Department [address] [place] [address] Progress Note 08/19/23 1105 MR#: [id number] Acct: [id number] Name: QUINCY CALDWELL Rep #:[id number] : 1960 63 From: Amaris Marks MD PCP: PASTORA Luz tus:ADM IN Location: [place] [address] Subjective Subjective Patient seen and examined. He [...] (Auto) 76.7 H, Lymph % (Auto) 10.8L, Long % (Auto) 9.4, Eos % (Auto) 2.3, [...] awaiting placement Charges/Coding Visit Charges Inpatient E&M: 64353 Subs Hosp L2 08/19/23 1539 <Electronically signed by Amaris Marks MD> Amaris Marks MD Cosigner Signature (if applicable): CC: ~ Signed [facility] Work Phone: 1(226) 164-197912-04-2023 Progress note Author [facility] August 18, 2023 3:45pm Note Date/Time August 18, 2023 1 1:53[facility] Medical Records Department [address] [place] [address] Progress Note 08/18/23 1149 MR#: [id number] Acct: [id number] Name: QUINCY CALDWELL Rep #:[id number] : 1960 63 From: Amaris Marks MD PCP: PASTORA Luz tus:ADM [facility] Subjective Subjective Patient seen and examined. He [...] 77.8 H, Lymph % (Auto) 10.1 L, Long % (Auto) 9.3, Eos % (Auto) 1.8, [...] with PT/OT. Charges/Coding Visit Charges Inpatient E&M: 80564 Subs Hosp L2 08/18/23 1545 <Electronically signed by Amaris Marks MD> Amaris Marks MD Cosigner Signature (if applicable): CC: ~ Signed [facility] Work Phone: 1(940) 381-767112-04-2023 Progress note Author Mel Tipton [facility] August 18, 2023 11:06am Note Date/Time August 18, 2023 1 0:43am [facility] Medical Records Department [address] [place], [place] [address] [address] Progress Note - Orthopedic 08/18/23 1033 MR#: [id number] Acct: [id number] Name: QUINCY CALDWELL Rep #:[id number] : 1960 63 From: Mel MATT PCP: PASTORA Luz tus:ADM IN Location: MS3 XY189-2 Subjective Subjective Insert postop subjective patient is [...] 77.8 H, Lymph % (Auto) 10.1 L, Long % (Auto) 9.3, Eos % (Auto) 1.8, [...] Cosigner Signature (if applicable): CC: ~ Signed [facility] Work Phone: 1(138) 271-285412-03-2023 Progress note [facility] August 17, 2023 1:47pm Note Date/Time August 17, 2023 1 0:42am [facility] Medical Records Department [address] [place] [address] Progress Note 08/17/23 1039 MR#: [id number] Acct: [id number] Name: QUINCY CALDWELL Rep #:[id number] : 1960 63 From: Amaris Marks MD PCP: Sfoia Adame, PASTORA German tus:ADM IN Location: [place] [address]-1 Subjective Subjective Patient seen and examined. He [...] GFR (MDRD) Non-Af 86, BUN/Creatinine Ratio 10.5, Cokwbhj059 H, Calcium 8.2 L, Total Bilirubin 0.50, AST 24, ALT 22, Alkaline Ftcidfokery28, Total Protein 6.3 L, Albumin 3.3, Globulin [...] 80.3 H, Lymph % (Auto) 10.3 L, Long % (Auto) 7.7, Eos % (Auto) 1.1, [...] on lovenox Charges/Coding Visit Charges Inpatient E&M: 71135 Subs Hosp L2 08/17/23 1347 <Electronically signed by Amaris Marks MD> Amaris Marks MD Cosigner Signature (if applicable): CC: ~ Signed [facility] Work Phone: [phone]) 741-914112-03-2023 Procedure [facility] 08-17-2023 Consult note Author Litzy Terrazas [facility] August 17, 2023 10:09am Note Date/Time August 17, 2023 1 0:00am [facility] Medical Records Department [address] [place] [address] Consultation 08/17/23952 MR#: [id number] Acct: [id number] Name: QUINCY CALDWELL Rep #:[id number] : 1960 63 From: Litzy MATT PCP: PASTORA Luz tus:ADM IN Location: [place] [address] Assessment & Plan Assessment/Plan (1) Closed fracture [...] is a 63 M who presented to [facility] yesterday August 16, 2023. He was involved in a work-related injury. 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 He was standing on the ground. He slipped twisted and landed on his right side. He had significant increased pain in his right hip was unable to stand or bear weight. He was taken to [facility] emergency department by kimi. He states that [...] bilateral upper extremities that is not new. [facility] Medical History no medical history Home Medications [...] GFR (MDRD) Non-Af 86, BUN/Creatinine Ratio 10.5, Otptgio099 H, Calcium 8.2 L, Total Bilirubin 0.50, AST 24, ALT 22, Alkaline Wnqvoekywot28, Total Protein 6.3 L, Albumin 3.3, Globulin [...] 80.3 H, Lymph % (Auto) 10.3 L, Long % (Auto) 7.7, Eos % (Auto) 1.1, [...] Watkins DO; Dr. Obie Funk MD~ Signed [facility] Work Phone: 1(279) 565-657012-02-2023 Progress note Author Amaris Marks [facility] August 16, 2023 2:54pm Note Date/Time August 16, 2023 1 2:43pm [facility] Medical Records Department [address] [place] [address] Progress Note 08/16/23 1237 MR#: [id number] Acct: [id number] Name: QUINCY CALDWELL Rep #:[id number] : 1960 63 From: Amaris Marks MD PCP: PASTORA Luz tus:ADM IN Location: [place] RL082-4 Subjective Subjective Patient seen and examined. He [...] % (Auto) 54.0, Lymph % (Auto) 27.6, Long % (Auto) 13.6 H, Eos % (Auto) [...] 6:38 EST Reading Location ID and State: [facility] / [place] Tel , Service support , Hip/Pelvis X-Ray 08/16/23 05:45 IMPRESSION: Mildly impacted right femoral neck fracture. Electronically Signed: Darnell Olsen MD at 6:40 EST Reading Location ID and State: [facility] / [place] Tel , Service support , [...] start lovenox Charges/Coding Visit Charges Inpatient E&M: 13214 Subs Hosp L2 08/16/23 1454 <Electronically signed by Amaris Marks MD> Amaris Marks MD Cosigner Signature (if applicable): CC: ~ Signed [facility] Work Phone: 1(537) 516-305712-02-2023 History and physical note Author Patrice Watkins [facility] August 16, 2023 6:38am Note Date/Time August 16, 2023 6 :38am [facility] Medical Records Department [address] [place] [address] H&P Exam - Hospitalist 08/16/23630 MR#: [id number] Acct: [id number] Name: QUINCY CALDWELL Rep #:[id number] : 1960 63 From: Patrice Watkins DO PCP: PASTORA Luz tus:ADM IN Location: [facility] FK383-7 HPI - General General Date of Admission: [...] % (Auto) 54.0, Lymph % (Auto) 27.6, Long % (Auto) 13.6 H, Eos % (Auto) [...] PASTORA Adame; Dr. Patrice Watkins DO~ Signed [facility] Work Phone: 1(129) 763-377712-02-2023 Discharge summary Author Tamir Allan [facility] August 16, 2023 6:11am Note Date/Time August 16, 2023 5 :10am [facility] Medical Records Department [address] [place] [address] Emergency Department Summary 08/16/23 MR#: [id number] Acct: [id number] Name: QUINCY CALDWELL Rep #:[id number] : 1960 63 From: Tamir Allan MD PCP: PASTORA Luz tus:REG ER Location: ED HPI History of Present Illness Chief Complaint: Lower Extremity Injury Informant: patient and EMS Narrative Narrative: 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 Funk who was on-call for [facility], with whom the patient isestablished, likely [...] % (Auto) 54.0 Lymph % (Auto) 27.6 Long % (Auto) 13.6 H Eos % (Auto) [...] Management Discussion w/another healthcare provider: Hospitalist and [employer] Worker ([facility]) Discharge Plan Dx/Rx/DC Orders Clinical Impression: Fall from slipping on wet surface, Closed fracture of right hip Disposition Disposition: Acute Care Hospital [facility] What to do if you have Problems For any increased pain, shortness of breath, bleeding, nausea or vomiting, chestpain, or any unexpected problems, contact your Primary Care Provider. Call [facility] ([phone]) or report to the closest Emergency Room. Call 911 if necessary. 08/16/23 0611 <Electronically signed by Tamir Allan MD> Cosigner Signature (if applicable): CC: PASTORA Adame ~ Signed [facility] Work Phone: [phone]) 947-274008-29-2023 Hospital Discharge instructions Patient Education 05/13/2023 10:45:37 [...] local community. Calling the smokefree.gov counselor helpline: 0-663-Fsub-Now ( ) Where to find more information You may find more information about quitting smoking from: HelpGuide.org: www.helpguide.org Smokefree.gov: smokefree.gov [place] [employer]: www.lung.org Contact a health care [...] 09/16/2017 Document Revised: 10/21/2018 Document Reviewed: 09/16/2017 [employer] Patient Education 2020 [employer]. Follow Up Care 05/09/2023 08:43:02 With:ERNESTO ADAME DO, Orthopedic Address: [address] [place] [address], [address] [facility] [place] [address]- [phone] When:06/02/2023 09:00:00 Comments:This is your post-op appointment. Follow-up as scheduled. [facility] 08-29-2023 Note Discharge Instructions Thank you for allowing [facility] to assist you with your healthcare needs. [...] not take any medications, herbal, prescription, or yepc-cfn-eorlvgi unless prescribed for the next 12 weeks [...] your post-op appointment. Follow-up as scheduled. Where: [address] [place] [address], [address] [facility] [place] [address]- [phone] Allergies NKA Medications Please ask your primary doctor or pharmacist before taking any other medication not listed, including over the counter drugs, herbal medications, vitamins and or supplements as they may interact withyour home medications. What How Much When Why Instructions Last Dose Changed acetaminophen-hydrocodone ([place] 325- 5 mg oral tablet) 1 tab(s) by mouth Every 6 hours as needed for for pain Cervical spondylosis Duration: 7 Days Pickup at [facility] none given today Changed acetaminophen-hydrocodone ([place] 325- 5 mg oral tablet) 1 tab(s) by mouth Every 4 hours as needed for Pain, scale 4-6 Pharmacy Information [facility]: [address] [place], [place] [phone] What How Much When Comments Stop Taking [...] quitting smoking from: HelpGuide.org: www.helpguide.org Smokefree.gov: smokefree.gov [place] [employer]: www.lung.org Contact a health care [...] 09/16/2017 Document Revised: 10/21/2018 Document Reviewed: 09/16/2017 [employer] Patient Education 2020 [employer] Additional Information VACCINATE! IT SAVES LIVES! Members of the community who have not yet received the COVID-19 vaccine and would like to receive it can visit one of [facility] vaccine clinics. There are many vaccine clinic locations within the [facility]. For locations and available times, please visit https://gettheshot.coronavirus.[place].gov/. It is important to note that some COVID mobile vaccine clinics are held outdoors and may be canceled in rainy or stormy conditions. To learn more about pediatric vaccinations (ages 5-11), we invite you to visit the [facility] webpage. https://www.[facility].org/pages/4263-Weonr-Wwdtkaezaey-Zvcvepqqow-Cjika-Mbg stions.htmlTo learn more about the COVID-19 vaccine, we invite you to visit the CDC website for a list of frequently asked questions.https://www.cdc.gov/coronavirus/2019-ncov/vaccines/faq.html [employer] Patient Portal Access Instructions: Stay connected with your healthcare team and access your personal medical information anytime with the [employer] Patient Portal. Please follow the directions below to create your [employer] account: 1.Access the email account you provided upon registration to the hospital/physician office.2.Look for an invitation email from [facility].3.Open the email and access the invitation link: AcceptInvitation to [employer].4.Fill in the required oswald to create your account. To access your account, visit [email or web address]. Click the blue button labeled Access Patient [...] who you will allowto register on the [facility] [employer] Patient Portal for access to your information. You can also access the [facility] on the [place] [facility] kush. Simply click on Patient Portal and then log into your account. If you would like to receive a full copy of your medical records, please contact the [facility] Medical Records Department by calling [phone], Friday through Friday between 8 a.m. and [...] Call your local pharmacy or go to [email or web address] to find one close to you.3.Make use of household items: Use cat litter or old coffee grounds to dispose medications if other options arenot available. Mix your drugs with these household products, seal them in an airtight container andthrow it into the garbage. Call [facility]: [phone] to be sure your drugs can be [...] aware that I should contact my doctor. 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 *visitor services assistant following for discharge planning needs. 2. Hypertension [...] medications, discussing plan of care with nursing, home health care social worker, and therapy,examining patient, collaborating with physician, and documenting in chart. Digitally Signed by YULI ROMAN on 05/13/2023 10:54 AM [facility]08-28-2023 Note ORIGINAL Images acquired, not reported on this accession number.[facility]08-28-2023 Anesthesiology Consult note Patient: KIM CALDWELL Age: 63 years Sex: Male : 1960 Associated Diagnoses: None Author: SEJAL, ABIEL F. MANAGER ADMINISTRATION-VIDEO TAPE DUPLICATOR Assessment Postanesthesia assessment Vitals: Vital signs from [...] by ABIEL POST on 05/12/2023 01:14 PM [facility]08-28-2023 Anesthesiology Consult note Patient: KIM CALDWELL Age: [...] Intravenous, Stop: 05/13/23 17:59:00 EDT Prescriptions Prescribed [place] 325- 5 mg oral tablet: 1 tab(s), [...] tendinitis of right shoulder / SNOMED CT 426212225255027 / Confirmed Chronic coughing / SNOMED CT 329526515 / Confirmed Abnormal finding on CT scan of Abd. / SNOMED CT 4209918111 / Confirmed Intestinal malrotation / SNOMED CT 47085351 / Confirmed Falling episodes / SNOMED CT 346409518 / Confirmed GERD (gastroesophageal reflux disease) / SNOMED CT 859106240 / Confirmed Abnormal upper gastrointestinal barium series / SNOMED CT 1027528713 / Confirmed Balance problem / SNOMED CT 9544300458 / Confirmed Numbness or tingling / SNOMED CT 9606141878 / Confirmed Over weight / SNOMED CT 350147728 / Confirmed Pain of shoulder with external rotation / SNOMED CT 464076184 / Confirmed Hepatic steatosis / SNOMED CT 769906746 / Confirmed, Active Problems (13) Abnormal finding on CT scan of Abd. Abnormal upper gastrointestinal barium series Balance problem Calcific tendinitis of right shoulder Chronic coughing Falling episodes GERD (gastroesophageal reflux disease) Hepatic steatosis Intestinal malrotation Numbness or tingling Over weight Pain of shoulder with external rotation Tobacco use (smoker) Histories Family History: Kimball's chorea Mother Sister Alzheimer disease Father Procedure history: Cervical spinal fusion by anterior technique (01268512) on 05/12/2023 at 63 Years. Excision of cataract (91633010). Comments: 05/09/2023 13:52 EDT - Armida Tai [...] Domestic Concerns None Living situation: Home/Independent Primary Last Puller: Self Current Home Treatments None Special Services [...] Signs(last 24 hrs) Last Charted Heart Rate Kciwhmxzz74 bpm (MAY 12 12:00) Resp Rate 18 br/min (MAY 12 10:32) SBP76 mmHg (MAY 12 11:57) DBP58 mmHg (MAY 12 11:57) BMI24.82 (MAY 12 10:16) Measurements from flowsheet : Measurements 05/12/2023 10:16 EDT Height 175 cm Height in inches 68.9 inch(es) Admission Weight 76 kg Weight Lbs 167.2 lb Terry Body Weight 70.46 kg BSA Admission 1.91 [...] 05/12/2023 11:54 05/12/2023 11:56 EDT SN - NE - Medication MARCAINE BUPIVACAINE 0.25% 30ML SN - NE - Route of Administration Local SN - NE - By (Single) SN - NE - By (Single) 05/12/2023 11:55 EDT Heart [...] Attendee SN - CAt - Role Performed Corsage Maker 05/12/2023 11:21 EDT SN - CTm - [...] - CAt - Role Performed Cell Saver Wallpaper Printer Helper SN - CAt - Role Performed Local [...] Attendee SN - CAt - Role Performed Intelligence Director 1 SN - CAt - Role Performed VIDEO TAPE DUPLICATOR 05/12/2023 10:47 EDT SN - CAt - [...] Surgeon SN - CAt - Role Performed Gas Analyst 1 SN - CAt - Role Performed Aircraft Tool Maker SN - CAt - Role Performed Scrub [...] Allergies No Anesthesia Extension Set Applied Yes Rn Otolaryngology On Yes Consent Form Signed Yes Patient [...] Person #1 We May Share UDAY Suarez [phone] Designated Person #1 Relationship Friend Privacy Restrictions Requested None Height 175 cm Height in inches 68.9 inch(es) Admission Weight 76 kg Weight Lbs 167.2 lb Terry Body Weight 70.46 kg BSA Admission 1.91 [...] Method Explanation, Printed materials Preferred Spoken Language Honduran Preferred Written Language Honduran Teaching Evaluation No further teaching needed Safety Brochure Information Reviewed Yes [facility] Video Viewed No Information Given by [...] EDT CSummarsusannah GARSIA . Assessment and Plan [place] Society of Anesthesiologists (ASA) physical status classification: Class III. Anesthetic Preoperative Plan Anesthetic technique: General. Informed consent: signed by patient. Digitally Signed by ABIEL POST on 05/12/2023 12:08 PM [facility]04-08-2021 NoteHNO ID: [id number] Author: Clover Rico ([place]) Service: ? Author Type: Physician Folder Taper Operator Type: Progress Notes Filed: 12/21/2020 1:24 PM Note Text: This note was created using [employer]. Subjective Kim Caldwell is a 60 year [...] Outpatient Medications Medication Sig Dispense Refill - Rwsyunbrngcqixk-Kipgqediq-IG (BROMFED DM) 2-30-10 mg/5 mL syrup Take [...] CORONAVIRUS - XR CHEST 2V FRONTAL/LAT VERNELL [facility]04-08-2021 NoteHNO ID: [id number] Author: Marylou Kaiser (Rt) Leonard Buckner Service: Radiology Author Type: Manager Eligibility Type: Progress Notes Filed: 12/21/2020 1:05 PM [...] BY: RT Melchor December 21, 2020 1:05 [facility]04-08-2021 History of Present illness Narrative* Marylou Buckner [...] 21, 2020 1:05 PM [facility] Author Jack Gonzales [facility] Note Date/Time January 24, 2025 6:33p m [facility] Medical Records Department [address] [place] [address] Counseling Note - Pharmacy 01/24/25 1640 MR#: [id number] Acct: [id number] Name: KIM CALDWELL Rep #:[id number] : 1960 64 From: Jack Gonzales PCP: Dr. Emanuel Macedo MD Status:ADM I N Y Location: [place] [address] [place] Reconciliation Pharmacy Service has performed discharge [...] Signature (if applicable): Date CC: ~ Signed [facility] Work Phone: Discharge summary Author Tamir Allan [facility] August 16, 2023 6:11am Note Date/Time August 16, 2023 5 :10am [facility] Medical Records Department [address] [place] [address] Emergency Department Summary 08/16/23 MR#: [id number] Acct: [id number] Name: QUINCY CALDWELL Rep #:[id number] : 1960 63 From: Tamir Allan MD PCP: PASTORA Luz tus:REG ER Location: ED HPI History of Present Illness Chief Complaint: Lower Extremity Injury Informant: patient and EMS Narrative Narrative: 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 Call [facility] ([phone]) or report to the closest Emergency Room. Call 911 if necessary. 08/16/23 0611 <Electronically signed by Tamir Allan MD> Cosigner Signature (if applicable): CC: PASTORA Adame ~ Signed [facility] Work Phone: Evaluation + Plan note No data available for this section [facility] Evaluation note* Diagnosis Onset Date Resolution Status Closed fracture of right hip acute Fall from slipping on wet surface acute Hypokalemia acute [facility] Work Phone: Evaluation note* Diagnosis Onset Date Resolution Status Closed fracture of right hip acute Contusion of right shoulder acute Fall from slipping on wet surface acute Hypokalemia acute S/P total hip arthroplasty a cute [facility] Work Phone: Evaluation note* Diagnosis Fever, unspecified fever cause documented [facility] Author Patrice Watkins [facility] August 16, 2023 6:38am Note Date/Time August 16, 2023 6 :38am [facility] Medical Records Department [address] [place] [address] H&P Exam - Hospitalist 08/16/23630 MR#: [id number] Acct: [id number] Name: QUINCY CALDWELL Rep #:[id number] : 1960 63 From: Patrice Watkins DO PCP: PASTORA Luzs:ADM IN Location: MS3 [id number] HPI - General General Date of Admission: [...] % (Auto) 54.0, Lymph % (Auto) 27.6, Long % (Auto) 13.6 H, Eos % (Auto) [...] PASTORA Adame; Dr. Patrice Watkins, DO~ Signed [facility] Work Phone: Hospital Discharge instructions No data available for this section [facility] Progress note No data available for this section [facility] Reason for referral (narrative)No reason for referral information availableWCincinnati [facility] Work Phone: Summary Purpose Family History No Family History Records Found Relationship Condition Age at Onset Recorded Date/T celso mother Kimball's disease Unknown father Leukemia Unknown Advance Directives No Advanced Directives Records Found Advance Directive Response Recorded Date/ Time Living Will No August 16 5:12am Power of Cloth Shrinking Machine Operator No August 16, 2023 5:12am Advance Directive Response Recorded Date/ Time Living Will No August 16 7:03am Power of Cloth Shrinking Machine Operator No August 16, 2023 7:03am Advance Directive Response Recorded Date/ Time Do you have a [facility] Power of Cloth Shrinking Machine Operator? No January 19, 2025 11:53am Chief Complaint [...] section and content) DATE CREATED AUTHOR 10/24/2021 [facility] DATE CREATED AUTHOR AUTHOR'S ORGANIZ ATION 05/19/2024 [facility] DATE CREATED AUTHOR AUTHOR'S ORGANIZ ATION 05/23/[address] [facility] DATE CREATED AUTHOR AUTHOR'S ORGANIZ ATION 02/11/2025 [facility] Patient Care team informatio n (unrecognized section and content) Team Status: Active Member Role Status Dates Sofia Adame BUSINESS DATA ANALYST, BUSINESS DATA ANALYST-C Primary Care Provider Active Team Status: Active Member Role Status Dates Sofia Adame BUSINESS DATA ANALYST, BUSINESS DATA ANALYST-C Primary Care Provider Active Dr. Tamir Allan MD Emergency Provider Active Dr. Patrice Watkins DO Admit Provider, At tending Provider, Referring Provider Active Team Status: Active Member Role Status Dates Sofia Adame BUSINESS DATA ANALYST, BUSINESS DATA ANALYST-C Primary Care Provider Active Dr. Tamir Allan MD Emergency Provider Active Dr. Patrice Watkins DO Admit Provider, At tending Provider, Other Provider Active Team Status: Active Member Role Status Dates Sofia Adame BUSINESS DATA ANALYST, BUSINESS DATA ANALYST-C Primary Care Provider Active Dr. Tamir Allan MD Emergency Provider Active Dr. Patrice Watkins DO Admit Provider, Re ferring Provider, Other Provider Active Dr. Amaris Marks MD Attending Provider, Other Prov ider Active Dr. Obie Funk MD Other Provider Active Team Status: Active Member Role Status Dates Sofia Adame BUSINESS DATA ANALYST, BUSINESS DATA ANALYST-C Primary Care Provider Active Dr. Tamir Allan MD Emergency Provider Active Dr. Patrice Watkins DO Admit Provider, Re ferring Provider, Other Provider Active Dr. Obie Fnuk MD Other Provider Active Dr. Shorty Lea MD Attending Provider, Other Provi susan Active Dr. Amaris Marks MD Other Provider Active Team Status: Inactive Member Role Status Dates Sofia Adame BUSINESS DATA ANALYST, BUSINESS DATA ANALYST-C Primary Care Provider Active Dr. Tamir Allan [...] Status: Active Member Role Status Dates Dr. Emaneul Macedo MD Primary Care Provider Active Start: [...] Provider Active Start: January 20, 2025 Dr. Sohrty Lea MD Admit Provider Active Sta rt: [...] Status: Active Member Role Status Dates Dr. Emanule Macedo MD Primary Care Provider Active Start: [...] Active Member Role Status Dates Dr. Emanuel aMcedo MD Primary Care Provider Active Start: January 25, 2025 Dr. Michelle LANG MD Attending Provider Active Start: January 25, 2025 Team Status: Active Member Role Status Dates Dr. Emanuel Macedo MD Primary Care Provider Active Start: February 02, 2025 Dr. Michelle LANG MD Attending Provider Active Start: February 02, 2025 Team Status: Active Member Role Status Dates Dr. Emanuel Mcaedo MD Primary Care Provider Active Start: February [...] or prosecute any alcohol or drug abuse patient.[facility] FOR RECORDS PERTAINING TO PATIENTS WHO ARE [...] BE BASED ON THE PRIMARY CLINICAL RECORDS. [facility] [facility]. provides no warranty or guarantee of the accuracy or completeness of information in this document.
[2025-02-16 07:17] LABS: Hematocrit 24.1 % (40-54); Mean Corp Hgb Conc 33.2 g/dL (32-36); Mean Corpuscular Volume 96.4 fL (80-94); Mean Platelet Vol. 9.7 fl (6.2-12.0); Platelet Count 207 K/mm3 (150-450); RBC Distribution Width CV 16.2 % (11.6-14.6); RBC Distribution Width SD 57.4 fl (35.1-43.9); White Blood Count 5.2 K/mm3 (4.4-11.0)
[2025-02-16 07:47] LABS: Anion Gap 9 (5-15); BUN 21 mg/dL (4-19); BUN/Creat Ratio 17.6 RATIO (10-20); Carbon Dioxide 21.2 mmol/L (21.0-32.0); Chloride 101 mmol/L (98-108); EST Glomerular Filtration Rate 68 (>60); Glucose 125 mg/dL (70-99); Potassium 4.8 mmol/L (3.3-5.1); Sodium Level 132 mmol/L (133-145)
== END ==
LOC: OLS.SW 06:00
PROVIDERS: PCP Family Medicine Geriatric Medicine; Visit Provider Internal Medicine
DX: D69.59 Other secondary thrombocytopenia (principal); E87.1 Hypo-osmolality and hyponatremia; E87.6 Hypokalemia
CPT/HCPCS: 36415; 80048; 85027

== ENCOUNTER → 2025-02-21 05:00 | Outpatient (REF) | payer MEDICAID, SELFPAY ==
--- OUTSIDE RECORDS SUMMARY | 2025-02-21 04:44 | XMS RPT_ITS | CCD ---
Author Organization [facility] Care Team Providers Care Clinical Asst Name Role Phone WENDI Soria CNP, SOFIA Knight Primary Care Phys ician Wendi INTELLECTUAL PROPERTY COUNSEL, INTELLECTUAL PROPERTY COUNSEL-C Sofia Hernández Primary Care Pr ovider Dr. Tamir Allan Emergency Provider Dr. Patrice Watkins Admit Provider Dr. Patrice Watkins Attending Provider Dr. Patrice Watkins Other Provider Dr. Patrice Watkins Referring Provider Dr. Amaris Marks Attending Provider Dr. Amaris Marks Other Provider Dr. Obie Funk Other Provider Dr. Shorty Lea Attending Provider [phone] Dr. Shorty Lea Other Provider OBIE FUNK MD Attending Unavailable WENDI PLATT - PIE FILLING MIXER, SOFIA Knight Primary Care U ERNESTO Soares DO Attending Unavailable WENDIPILY PLATT - PIE FILLING MIXER, SOFIA Knight Primary Care U OBIE Valdez MD Attending Unavailable WENDI PLATT - PIE FILLING MIXER, SOFIA Knight Primary Care U SERGIO Mcrae MD Attending Unavailable WENDI PLATT - PIE FILLING MIXER, SOFIA Knight Primary Care U lily ADAME APRN - [place], SOFIA Knight Primary Care U SERGIO Mcrae MD Attending Unavailable Unavailable Primary Care Provider Unavailangel Macedo MD, Dr. Emanuel Chi Primary Care Provider Rolando MONTERO, Dr. Ragland Attending Provider Marilyn ARZATE, Dr. Humphrey Emergency Provider Venu MONTERO, Dr. Oro Admit Provider Venu MONTERO, Dr. Oro Attending Provider Venu MONTERO, Dr. Oro Other Provider Remington MONTERO, Dr. Emanuel Pagan Primary Care Provider Beronica MONTERO, Dr. Martinez Attending Provider Unavaila ble Shantell Hayes Attending Provider Unavailable Remington MONTERO, Dr. Emanuel Pagan Referring Provider Елена MONTERO, Dr. Iraheta Attending Provider Remington, Emanuel Chi Attending Unavailable Remington, Emanuel Chi Primary Care Unavailable Remington, Emanuel Chi Attending Unavailable Remington, Emanuel Chi Primary Care Unavailable Tristan Chowdhury Consulting Unavailable Lavell Levine Attending Unavailable TereletskyGrant Admitting Unavailable Remington, Emanuel Chi Primary Care Unavailable [place] Consulting Unavailable Lavell Levine Consulting Unavailable Michelle Malone Attending Unavailable Remington, Emanuel Chi Primary Care Unavailable Remington, Emanuel Chi Attending Unavailable Remington, Emanuel Chi Primary Care Unavailable Tristan Chowdhury Consulting Unavailable Lavell Levine Attending Unavailable [place] Admitting Unavailable Remington, Emanuel Chi Primary Care Unavailable [place] Consulting Unavailable Shorty Lea Admitting Unavailable Shorty Lea Attending Unavailable Remington, Emanuel Chi Primary Care Unavailable Remington, Emanuel Chi Attending Unavailable Remington, Emanuel Chi Primary Care Unavailable Remington, Emanuel Chi Referring Unavailable Tristan Chowdhury Attending Unavailable Lavell Levine Referring Unavailable Remington, Emanuel Chi Referring Unavailable Myrtle Christiansen Attending Unavailable Remington, Emanuel Chi Primary Care Unavailable Shantell Hayes Attending Unavailable Remington, Emanuel Chi Primary Care Unavailable Nagajothi, Nagapradee Referring Unavailabl e NagFranklin reyesapradee Attending Unavailabl e Remington, Emanuel Chi Primary Care Unavailable Tristan Chowdhury Attending Unavailable Remington, Emanuel Chi Primary Care Unavailable Michelle Malone Attending Unavailable Remington, Emanuel Chi Primary Care Unavailable Gudla OLS, Michelle Attending Unavailable Remington, Emanuel Chi Primary Care Unavailable Remington, Emanuel Chi Attending Unavailable Remington, Emanuel Chi Primary Care Unavailable Jyotsna Anguiano Attending Unavailable Shorty Lea Admitting Unavailable Shorty Lea Attending Unavailable Shorty Lea Consulting Unavailable Remington, Emanuel Chi Primary Care Unavailable Jerrod Restrepo Attending Unavailable Michelle Malone Attending Unavailable Remington, Emanuel Chi Primary Care Unavailable [place] Attending Unavailable Obie Funk Attending Unavailable Remington, Emanuel Chi Primary Care Unavailable Medications Current Medications Medication Drug Class(es) Dates Sig (Normalized) Sig (Original) acetaminophen 325 mg / HYDROcodone bitartrate 5 mg oral tablet (4 sources) Opioid Agonist Start: 05-13-2023 Holland 325- 5 mg oral tablet Dose = 1 tab(s), Oral, q4h, PRN Pain, scale 4-6, 0 Refill(s), 76 Start Date: 05/13/23 Status: Ordered Start: 05-12-2023 End: 05-19-2023 take 1 tablet by mouth every six hours as needed for pain Holland 325- 5 mg oral tablet Dose = 1 tab(s), Oral, q6h, PRN for pain, X 7 day(s), # 28 tab(s), 0 Refill(s), Pharmacy: [id number], Cervical spondylosis, 175, cm, 05/12/23 10:16:00 [...] oral solution (1 source) alpha-Adrenergic Agonist, Uncompetitive V-vsgaoi-Q-asparta te Receptor Antagonist, Sigma-1 Agonist Start: 10-15-2019 [...] Tablet Active 1 mg PO WITH BREAKFAST January 24, 2025 12:00am losartan potassium 100 [...] Discontinued 1000 mg PO EVERY 8 HOURS 0 August 20, 2023 1:00am April 21, 2024 12:39pm Lvdc-dfi-doxiucw. 1000 mg every 8 hourly for 1 week and then as needed for 6 moderate to severe pain. Start: 08-20-2023 Acetaminophen Active 1000 MG PO EVERY 8 HOURS August 20, 2023 12:00am Kyoa-jtn-brerjvr. 1000 mg every 8 hourly for 1 [...] 12:39pm docusate sodium 50 mg / sennosides, alf 8.6 mg oral tablet (3 sources) Start: 08-20-2023 End: 04-21-2024 Sennosides-Docusate Sodium (Stool Softener-Stimulant Laxat) 8.6-50 mg Tablet Discontinued 2 {tbl} PO TWICE A DAY August 20, 2023 1:00am April 21, 2024 12:39pm Acst-epf-xqtrjgy. Labetalol (1 source) beta-Adrenergic Nikki Start: 05-12-2023 [...] mg for severe pain. polyethylene glycol 3350 41592 mg powder for oral solution (3 sources) [...] resolved with abstinence while residing in a [facility]. Deficiency and other anemia [...] Test Name Value Interpretation Reference Range Facility Basic Metabolic Profile (BMP )on 02-16-2025 BUN/CRE 17.6 RATIO Normal 10-20 [facility] Comment on above: Performed By: #### L 500.2500, L100.0500 ####[facility] [address] [place], [address] Calcium [Mass/Vol] 9.0 mg/dL Normal 7.6-11.[address] [facility] Comment on above: Performed By: #### L 500.2500, L100.0500 ####[facility] [address] [place], [address] Chloride [Moles/Vol] 101 mmol/L Normal 98-108 [facility] Comment on above: Performed By: #### L 500.2500, L100.0500 ####[facility] [address] [place], [address] CO2 [Moles/Vol] 21.2 mmol/L Normal 21.0-32.0 [facility] Comment on above: Performed By: #### L 500.2500, L100.0500 ####[facility] [address] [place], [address] Creatinine [Mass/Vol] 1.20 mg/dL Normal 0.70-1.20 [facility] Comment on above: Performed By: #### L 500.2500, L100.0500 ####[facility] [address] [place], [address] GAP 9 Normal 5-15 [facility] Comment on above: Performed By: #### L 500.2500, L100.0500 ####[facility] [address] [place], [address] GFR/1.73 sq M.predicted among non-blacks MDRD (S/P/Bld) [Vol rate/Area] 68 mL/min/{1.73_m2} Normal >60 [facility] Comment on above: Result Comment: mL/m in/1.73m2 CKD-EPI Creatinine Equation (2020) Performed By: #### L 500.2500, L100.0500 ####[facility] [address] [place], [address] Glucose [Mass/Vol] 125 mg/dL High 70-[address] [facility] Comment on above: Performed By: #### L 500.2500, L100.0500 ####[facility] [address] [place], [address] Potassium [Moles/Vol] 4.8 mmol/L Normal 3.3-5.1 [facility] Comment on above: Performed By: #### L 500.2500, L100.0500 ####[facility] [address] [place], [address] Sodium [Moles/Vol] 132 mmol/L Low 133-[address] [facility] Comment on above: Performed By: #### L 500.2500, L100.0500 ####[facility] [address] [place], [address] Urea nitrogen [Mass/Vol] 21 mg/dL High 4-19 [facility] Comment on above: Performed By: #### L 500.2500, L100.0500 ####[facility] [address] [place], [address] CBC-Complete Blood Cnt No Di ffon 02-16-2025 Erythrocyte distribution width (RBC) [Ratio] 16.2 % High 11.6-14.6 [facility] Comment on above: Performed By: #### L 500.2500, L100.0500 ####[facility] [address] [place], [address] Hematocrit (Bld) [Volume fraction] 24.1 % Low 40-54 [facility] Comment on above: Performed By: #### L 500.2500, L100.0500 ####[facility] [address] [place], [address] Hemoglobin (Bld) [Mass/Vol] 8.0 g/dL Low 13.0-16.5 [facility] Comment on above: Performed By: #### L 500.2500, L100.0500 ####[facility] [address] [place], [address] MCH (RBC) [Entitic mass] 32.0 pg Normal 27.0-32.0 [facility] Comment on above: Performed By: #### L 500.2500, L100.0500 ####[facility] [address] [place], [address] MCHC (RBC) [Mass/Vol] 33.2 g/dL Normal 32-36 [facility] Comment on above: Performed By: #### L 500.2500, L100.0500 ####[facility] [address] [place], [address] MCV (RBC) [Entitic vol] 96.4 fL High 80-94 [facility] Comment on above: Performed By: #### L 500.2500, L100.0500 ####[facility] [address] [place], [address] Platelet mean volume (Bld) [Entitic vol] 9.7 fL Normal 6.2-12.0 [facility] Comment on above: Performed By: #### L 500.2500, L100.0500 ####[facility] [address] [place], [address] Platelets (Bld) [#/Vol] 207 10*3/uL Normal 150-450 [facility] Comment on above: Performed By: #### L 500.2500, L100.0500 ####[facility] [address] [place], [address] RBC (Bld) [#/Vol] 2.50 10*6/uL Low 4.6-6.2 [facility] Comment on above: Performed By: #### L 500.2500, L100.0500 ####[facility] [address] [place], [address] RDW SD 57.4 fl High 35.1-43.9 [facility] Comment on above: Performed By: #### L 500.2500, L100.0500 ####[facility] [address] [place], [address] WBC (Bld) [#/Vol] 5.2 10*3/uL Normal 4.4-11.[address] [facility] Comment on above: Performed By: #### L 500.2500, L100.0500 ####[facility] [address] [place], [address] Oncology Visit Reporton 01-14 Oncology Visit Report Normal [facility] Absolute lymphocyte countOrd ered By: Michelle Loco on 02-09-2025 Lymphocytes Auto (Unsp spec) [#/Vol] 1.18 10*3/uL 0.83-4.51 [facility] Absolute neutrophil countOrd ered By: Michelle Loco on 02-09-2025 Neutrophils (Bld) [#/Vol] 2.6 10*3/uL 2.0-7.7 [facility] Anion gap in Serum or Plasma Ordered By: Michelle Loco on 02-09-2025 Anion gap [Moles/Vol] 10 mmol/L 5-15 [facility] Automated lymphocyte count a s percentage of total leukocytesOrdered By: Michelle Loco on 02-09-2025 Lymphocytes/100 WBC Auto (Unsp spec) 26.9 % 19-41 [facility] BUN/creatinine ratioOrdered By: Michelle Loco on 02-09-2025 Urea nitrogen/Creatinine [Mass ratio] 17.8 mg/mg 10-20 [facility] Basic Metabolic Profile (BMP )on 02-09-2025 BUN/CRE 17.8 RATIO Normal - [facility] Comment on above: Order Comment: 212 Performed By: #### L 500.2500, L100.0100, L501.2300, L501.5200 ####[facility] [address] [place], [address] Calcium [Mass/Vol] 8.8 mg/dL Normal 7.6-11.[address] [facility] Comment on above: Order Comment: 212 Performed By: #### L 500.2500, L100.0100, L501.2300, L501.5200 ####[facility] [address] [place], [address] Chloride [Moles/Vol] 102 mmol/L Normal 98-108 [facility] Comment on above: Order Comment: 212 Performed By: #### L 500.2500, L100.0100, L501.2300, L501.5200 ####[facility] [address] [place], [address] CO2 [Moles/Vol] 21.6 mmol/L Normal 21.0-32.0 [facility] Comment on above: Order Comment: 212 Performed By: #### L 500.2500, L100.0100, L501.2300, L501.5200 ####[facility] [address] [place], [address] Creatinine [Mass/Vol] 1.30 mg/dL High 0.70-1.20 [facility] Comment on above: Order Comment: 212 Performed By: #### L 500.2500, L100.0100, L501.2300, L501.5200 ####[facility] [address] [place], [address] GAP 10 Normal 5-15 [facility] Comment on above: Order Comment: 212 Performed By: #### L 500.2500, L100.0100, L501.2300, L501.5200 ####[facility] [address] [place], [address] GFR/1.73 sq M.predicted among non-blacks MDRD (S/P/Bld) [Vol rate/Area] 62 mL/min/{1.73_m2} Normal >60 [facility] Comment on above: Order Comment: 212 Result Comment: mL/m in/1.73m2 CKD-EPI Creatinine Equation (2020) Performed By: #### L 500.2500, L100.0100, L501.2300, L501.5200 ####[facility] [address] [place], [address] Glucose [Mass/Vol] 120 mg/dL High 70-[address] [facility] Comment on above: Order Comment: 212 Performed By: #### L 500.2500, L100.0100, L501.2300, L501.5200 ####[facility] [address] [place], [address] Potassium [Moles/Vol] 4.7 mmol/L Normal 3.3-5.1 [facility] Comment on above: Order Comment: 212 Performed By: #### L 500.2500, L100.0100, L501.2300, L501.5200 ####[facility] [address] [place], [address] Sodium [Moles/Vol] 134 mmol/L Normal 133-[address] [facility] Comment on above: Order Comment: 212 Performed By: #### L 500.2500, L100.0100, L501.2300, L501.5200 ####[facility] [address] [place], [address] Urea nitrogen [Mass/Vol] 23 mg/dL High 4-19 [facility] Comment on above: Order Comment: 212 Performed By: #### L 500.2500, L100.0100, L501.2300, L501.5200 ####[facility] [address] [place], [address] Basophil percentageOrdered B y: Michelle Loco on 02-09-2025 Basophils/100 WBC (Bld) 0.5 % 0-1 [facility] CBC W/Diff, Automatedon 01-14 Absolute Lymph 1.18 X10 3/uL Normal 0.83-4.51 [facility] Comment on above: Order Comment: 212 Performed By: #### L 500.2500, L100.0100, L501.2300, L501.5200 ####[facility] [address] [place], [address] Absolute Neut 2.6 X10 3/uL Normal 2.0-7.7 [facility] Comment on above: Order Comment: 212 Performed By: #### L 500.2500, L100.0100, L501.2300, L501.5200 ####[facility] [address] [place], [address] Basophils/100 WBC (Bld) 0.5 % Normal 0-1 [facility] Comment on above: Order Comment: 212 Performed By: #### L 500.2500, L100.0100, L501.2300, L501.5200 ####[facility] [address] [place], [address] Eosinophils/100 WBC (Bld) 3.2 % Normal 0-5 [facility] Comment on above: Order Comment: 212 Performed By: #### L 500.2500, L100.0100, L501.2300, L501.5200 ####[facility] [address] [place], [address] Erythrocyte distribution width (RBC) [Ratio] 16.7 % High 11.6-14.6 [facility] Comment on above: Order Comment: 212 Performed By: #### L 500.2500, L100.0100, L501.2300, L501.5200 ####[facility] [address] [place], [address] Hematocrit (Bld) [Volume fraction] 23.8 % Low 40-54 [facility] Comment on above: Order Comment: 212 Performed By: #### L 500.2500, L100.0100, L501.2300, L501.5200 ####[facility] [address] [place], [address] Hemoglobin (Bld) [Mass/Vol] 7.8 g/dL Low 13.0-16.5 [facility] Comment on above: Order Comment: 212 Performed By: #### L 500.2500, L100.0100, L501.2300, L501.5200 ####[facility] [address] [place], [address] IG% 1.400 High 0.0-0.9 [facility] Comment on above: Order Comment: 212 Result Comment: IG% - Immature Granulocytes (promyelocytes, myelocytes andmetamyelocytes) > 1% indicates that a LEFT SHIFT is Present. Performed By: #### L 500.2500, L100.0100, L501.2300, L501.5200 ####[facility] [address] [place], [address] Lymphocytes/100 WBC (Bld) 26.9 % Normal 19-41 [facility] Comment on above: Order Comment: 212 Performed By: #### L 500.2500, L100.0100, L501.2300, L501.5200 ####[facility] [address] [place], [address] MCH (RBC) [Entitic mass] 31.8 pg Normal 27.0-32.0 [facility] Comment on above: Order Comment: 212 Performed By: #### L 500.2500, L100.0100, L501.2300, L501.5200 ####[facility] [address] [place], [address] MCHC (RBC) [Mass/Vol] 32.8 g/dL Normal 32-36 [facility] Comment on above: Order Comment: 212 Performed By: #### L 500.2500, L100.0100, L501.2300, L501.5200 ####[facility] [address] [place], [address] MCV (RBC) [Entitic vol] 97.1 fL High 80-94 [facility] Comment on above: Order Comment: 212 Performed By: #### L 500.2500, L100.0100, L501.2300, L501.5200 ####[facility] [address] [place], [address] Monocytes/100 WBC (Bld) 9.1 % Normal 0-10 [facility] Comment on above: Order Comment: 212 Performed By: #### L 500.2500, L100.0100, L501.2300, L501.5200 ####[facility] [address] [place], [address] Neutrophils/100 WBC (Bld) 58.9 % Normal 47-70 [facility] Comment on above: Order Comment: 212 Performed By: #### L 500.2500, L100.0100, L501.2300, L501.5200 ####[facility] [address] [place], [address] Nucleated RBC (Bld) [#/Vol] 0 10*3/uL Normal 0-5 [facility] Comment on above: Order Comment: 212 Performed By: #### L 500.2500, L100.0100, L501.2300, L501.5200 ####[facility] [address] [place], [address] Platelet mean volume (Bld) [Entitic vol] 9.9 fL Normal 6.2-12.0 [facility] Comment on above: Order Comment: 212 Performed By: #### L 500.2500, L100.0100, L501.2300, L501.5200 ####[facility] [address] [place], [address] Platelets (Bld) [#/Vol] 163 10*3/uL Normal 150-450 [facility] Comment on above: Order Comment: 212 Performed By: #### L 500.2500, L100.0100, L501.2300, L501.5200 ####[facility] [address] [place], [address] RBC (Bld) [#/Vol] 2.45 10*6/uL Low 4.6-6.2 [facility] Comment on above: Order Comment: 212 Performed By: #### L 500.2500, L100.0100, L501.2300, L501.5200 ####[facility] [address] [place], [address] RDW SD 59.5 fl High 35.1-43.9 [facility] Comment on above: Order Comment: 212 Performed By: #### L 500.2500, L100.0100, L501.2300, L501.5200 ####[facility] [address] [place], [address] WBC (Bld) [#/Vol] 4.4 10*3/uL Normal 4.4-11.[address] [facility] Comment on above: Order Comment: 212 Performed By: #### L 500.2500, L100.0100, L501.2300, L501.5200 ####[facility] [address] [place], [address] Carbon dioxide, total [Moles /volume] in Central venous bloodOrdered By: Michelle Loco on 02-09-2025 CO2 [Moles/Vol] 21.6 mmol/L 21.0-32.0 [facility] Chloride assayOrdered By: Liborio Loco on 02-09-2025 Chloride [Moles/Vol] 102 mmol/L 98-108 [facility] Eosinophil percentageOrdered By: Michelle Loco on 02-09-2025 Eosinophils/100 WBC (Bld) 3.2 % 0-5 [facility] Erythrocyte distribution wid th ratioOrdered By: Michelle Loco on 02-09-2025 Erythrocyte distribution width (RBC) [Ratio] 16.7 % High 11.6-14.6 [facility] Erythrocyte distribution wid th standard deviationOrdered By: Michelle Loco on 02-09-2025 Erythrocyte distribution width (RBC) [Ratio] 59.5 fl High 35.1-43.9 [facility] Glomerular filtration rate ( GFR) estimation/1.73 sq m using serum, plasma, or whole bOrdered By: Michelle Loco on 02-09-2025 GFR/1.73 sq M.predicted among non-blacks MDRD (S/P/Bld) [Vol rate/Area] 62 mL/min/{1.73_m2} >60 [facility] Comment on above: mL/min/1.73m2 CKD-EP I Creatinine Equation (2020) Hematocrit Auto (Bld) [Volum e fraction]Ordered By: Michelle Loco on 02-09-2025 Hematocrit (Bld) [Volume fraction] 23.8 % Low 40-54 [facility] Hemoglobin measurementOrdere d By: Michelle Loco on 02-09-2025 Hemoglobin (Bld) [Mass/Vol] 7.8 g/dL Low 13.0-16.5 [facility] Immature granulocytes/100 WB C Auto (Bld)Ordered By: Michelle Loco on 02-09-2025 Immature granulocytes/100 WBC (Bld) 1.400 % High 0.0-0.9 [facility] Comment on above: IG% - Immature Granu locytes (promyelocytes, myelocytes and metamyelocytes) > 1% indicates that a LEFT SHIFT is Present. MCV (mean corpuscular volume ) determinationOrdered By: Michelle Loco on 02-09-2025 MCV (RBC) [Entitic vol] 97.1 fL High 80-94 [facility] Magnesiumon 02-09-2025 Magnesium [Mass/Vol] 1.7 mg/dL Normal 1.5-2.2 [facility] Comment on above: Order Comment: 212 Performed By: #### L 500.2500, L100.0100, L501.2300, L501.5200 ####[facility] [address] [place], [address] Magnesium measurement (mass/ volume)Ordered By: Michelle Loco on 02-09-2025 Magnesium (Unsp spec) [Mass/Vol] 1.7 mg/dL 1.5-2.2 [facility] Mean corpuscular hemoglobin (MCH) determinationOrdered By: Michelle Loco on 02-09-2025 MCH (RBC) [Entitic mass] 31.8 pg 27.0-32.0 [facility] Mean corpuscular hemoglobin concentration (MCHC) determinationOrdered By: Michelle Loco on 02-09-2025 MCHC (RBC) [Mass/Vol] 32.8 g/dL 32-36 [facility] Mean platelet volume determi nationOrdered By: Michelle Loco on 02-09-2025 Platelet mean volume (Bld) [Entitic vol] 9.9 fL 6.2-12.0 [facility] Monocyte percentageOrdered B y: Michelle Loco on 02-09-2025 Monocytes/100 WBC (Bld) 9.1 % 0-10 [facility] Neutrophil percentageOrdered By: Michelle Loco on 02-09-2025 Neutrophils/100 WBC (Bld) 58.9 % 47-70 [facility] Nucleated red blood cell per centageOrdered By: Michelle Loco on 02-09-2025 Nucleated RBC/100 WBC (Bld) [Ratio] 0 % 0-5 [facility] Phosphoruson 02-09-2025 Phosphate [Mass/Vol] 5.6 mg/dL High 2.7-4.5 [facility] Comment on above: Order Comment: 212 Performed By: #### L 500.2500, L100.0100, L501.2300, L501.5200 ####[facility] [address] [place], [address] Platelet countOrdered By: Liborio Loco on 02-09-2025 Platelets (Bld) [#/Vol] 163 10*3/uL 150-450 [place] [facility] Potassium measurement (mass/ volume)Ordered By: Michelle Loco on 02-09-2025 Potassium (Unsp spec) [Mass/Vol] 4.7 mmol/L 3.3-5.1 [facility] RBC Auto (Bld) [#/Vol]Ordere d By: Michelle Loco on 02-09-2025 RBC (Bld) [#/Vol] 2.45 10*6/uL Low 4.6-6.2 [facility] Serum creatinine measurement (mass/volume)Ordered By: Michelle Loco on 02-09-2025 Creatinine [Mass/Vol] 1.30 mg/dL High 0.70-1.20 [facility] Serum glucose measurement (m ass/volume)Ordered By: Michelle Loco on 02-09-2025 Glucose [Mass/Vol] 120 mg/dL High 70-[address] [facility] Serum or plasma calcium ed urement (mass/volume)Ordered By: Michelle Loco on 02-09-2025 Calcium [Mass/Vol] 8.8 mg/dL 7.6-11.[address] [facility] Serum or plasma urea nitroge n measurement (mass/volume)Ordered By: Michelle Loco on 02-09-2025 Urea nitrogen [Mass/Vol] 23 mg/dL High 4-19 [facility] Sodium levelOrdered By: Malinda Loco on 02-09-2025 Sodium [Moles/Vol] 134 mmol/L 133-[address] [facility] White blood cell (WBC) count Ordered By: Michelle Loco on 02-09-2025 WBC (Bld) [#/Vol] 4.4 10*3/uL 4.4-11.[address] [facility] CBC W/Diff, Automatedon 01-14 PATH REV Reviewed Normal [facility] Comment on above: Order Comment: CRITI MODESTO VALUE CALLED TO ABIODUN01/22/25 0739 Evangelina Ayon.RESULTS READ BACK BY SAME. Result Comment: SEE REPORT IN PATIENT'S EMR AMENDED REPORT 02/03/25 1545 PATH REV previously reported as: January foll Performed By: #### L 500.4050, L100.0100 ####[facility] [address] [place], [place], [id number] Absolute lymphocyte countOrd ered By: Michellekiara Loco on 02-02-2025 Lymphocytes Auto (Unsp spec) [#/Vol] 1.01 10*3/uL 0.83-4.51 [facility] Absolute neutrophil countOrd ered By: [facility]-2025 Neutrophils (Bld) [#/Vol] 2.8 10*3/uL 2.0-7.7 [facility] Anion gap in Serum or Plasma Ordered By: Michellekiara Loco on 02-02-2025 Anion gap [Moles/Vol] 11 mmol/L 5-15 [facility] Automated lymphocyte count a s percentage of total leukocytesOrdered By: Michellekiara Loco on 02-02-2025 Lymphocytes/100 WBC Auto (Unsp spec) 23.0 % - [facility] BUN/creatinine ratioOrdered By: Michellekiara Loco on 02-02-2025 Urea nitrogen/Creatinine [Mass ratio] 12.1 mg/mg - [facility] Basic Metabolic Profile (BMP )on 02-02-2025 BUN/CRE 12.1 RATIO Normal - [facility] Comment on above: Order Comment: 212 Performed By: #### L 501.2300, L501.5200, L500.2500, L100.0100 ####[facility] [address] [place], [place], [address] Calcium [Mass/Vol] 8.7 mg/dL Normal 7.6-11.[address] [facility] Comment on above: Order Comment: 212 Performed By: #### L 501.2300, L501.5200, L500.2500, L100.0100 ####[facility] [address] [place], [address] Chloride [Moles/Vol] 107 mmol/L Normal 98-108 [facility] Comment on above: Order Comment: 212 Performed By: #### L 501.2300, L501.5200, L500.2500, L100.0100 ####[facility] [address] [place], [address] CO2 [Moles/Vol] 18.1 mmol/L Low 21.0-32.0 [facility] Comment on above: Order Comment: 212 Performed By: #### L 501.2300, L501.5200, L500.2500, L100.0100 ####[facility] [address] [place], [address] Creatinine [Mass/Vol] 1.03 mg/dL Normal 0.70-1.20 [facility] Comment on above: Order Comment: 212 Performed By: #### L 501.2300, L501.5200, L500.2500, L100.0100 ####[facility] [address] [place], [address] GAP 11 Normal 5-15 [facility] Comment on above: Order Comment: 212 Performed By: #### L 501.2300, L501.5200, L500.2500, L100.0100 ####[facility] [address] [place], [address] GFR/1.73 sq M.predicted among non-blacks MDRD (S/P/Bld) [Vol rate/Area] 82 mL/min/{1.73_m2} Normal >60 [facility] Comment on above: Order Comment: 212 Result Comment: mL/m in/1.73m2 CKD-EPI Creatinine Equation (2020) Performed By: #### L 501.2300, L501.5200, L500.2500, L100.0100 ####[facility] [address] [place], [address] Glucose [Mass/Vol] 104 mg/dL High 70-[address] [facility] Comment on above: Order Comment: 212 Performed By: #### L 501.2300, L501.5200, L500.2500, L100.0100 ####[facility] [address] [place], [address] Potassium [Moles/Vol] 4.2 mmol/L Normal 3.3-5.1 [facility] Comment on above: Order Comment: 212 Performed By: #### L 501.2300, L501.5200, L500.2500, L100.0100 ####[facility] [address] [place], [address] Sodium [Moles/Vol] 136 mmol/L Normal 133-[address] [facility] Comment on above: Order Comment: 212 Performed By: #### L 501.2300, L501.5200, L500.2500, L100.0100 ####[facility] [address] [place], [address] Urea nitrogen [Mass/Vol] 13 mg/dL Normal 4-19 [facility] Comment on above: Order Comment: 212 Performed By: #### L 501.2300, L501.5200, L500.2500, L100.0100 ####[facility] [address] [place], [address] Basophil percentageOrdered B y: Michelle Loco on 02-02-2025 Basophils/100 WBC (Bld) 0.9 % 0-1 [facility] CBC W/Diff, Automatedon - Absolute Lymph 1.01 X10 3/uL Normal 0.83-4.51 [facility] Comment on above: Order Comment: 212 Performed By: #### L 501.2300, L501.5200, L500.2500, L100.0100 ####[facility] [address] [place], [address] Absolute Neut 2.8 X10 3/uL Normal 2.0-7.7 [facility] Comment on above: Order Comment: 212 Performed By: #### L 501.2300, L501.5200, L500.2500, L100.0100 ####[facility] [address] [place], [address] Basophils/100 WBC (Bld) 0.9 % Normal 0-1 [facility] Comment on above: Order Comment: 212 Performed By: #### L 501.2300, L501.5200, L500.2500, L100.0100 ####[facility] [address] [place], [address] Eosinophils/100 WBC (Bld) 2.3 % Normal 0-5 [facility] Comment on above: Order Comment: 212 Performed By: #### L 501.2300, L501.5200, L500.2500, L100.0100 ####[facility] [address] [place], [address] Erythrocyte distribution width (RBC) [Ratio] 17.2 % High 11.6-14.6 [facility] Comment on above: Order Comment: 212 Performed By: #### L 501.2300, L501.5200, L500.2500, L100.0100 ####[facility] [address] [place], [address] Hematocrit (Bld) [Volume fraction] 25.4 % Low 40-54 [facility] Comment on above: Order Comment: 212 Performed By: #### L 501.2300, L501.5200, L500.2500, L100.0100 ####[facility] [address] [place], [address] Hemoglobin (Bld) [Mass/Vol] 8.5 g/dL Low 13.0-16.5 [facility] Comment on above: Order Comment: 212 Performed By: #### L 501.2300, L501.5200, L500.2500, L100.0100 ####[facility] [address] [place], [address] IG% 1.100 High 0.0-0.9 [facility] Comment on above: Order Comment: 212 Result Comment: IG% - Immature Granulocytes (promyelocytes, myelocytes andmetamyelocytes) > 1% indicates that a LEFT SHIFT is Present. Performed By: #### L 501.2300, L501.5200, L500.2500, L100.0100 ####[facility] [address] [place], [address] Lymphocytes/100 WBC (Bld) 23.0 % Normal 19-41 [facility] Comment on above: Order Comment: 212 Performed By: #### L 501.2300, L501.5200, L500.2500, L100.0100 ####[facility] [address] [place], [address] MCH (RBC) [Entitic mass] 32.2 pg High 27.0-32.0 [facility] Comment on above: Order Comment: 212 Performed By: #### L 501.2300, L501.5200, L500.2500, L100.0100 ####[facility] [address] [place], [address] MCHC (RBC) [Mass/Vol] 33.5 g/dL Normal 32-36 [facility] Comment on above: Order Comment: 212 Performed By: #### L 501.2300, L501.5200, L500.2500, L100.0100 ####[facility] [address] [place], [address] MCV (RBC) [Entitic vol] 96.2 fL High 80-94 [facility] Comment on above: Order Comment: 212 Performed By: #### L 501.2300, L501.5200, L500.2500, L100.0100 ####[facility] [address] [place], [address] Monocytes/100 WBC (Bld) 8.9 % Normal 0-10 [facility] Comment on above: Order Comment: 212 Performed By: #### L 501.2300, L501.5200, L500.2500, L100.0100 ####[facility] [address] [place], [address] Neutrophils/100 WBC (Bld) 63.8 % Normal 47-70 [facility] Comment on above: Order Comment: 212 Performed By: #### L 501.2300, L501.5200, L500.2500, L100.0100 ####[facility] [address] [place], [address] Nucleated RBC (Bld) [#/Vol] 0 10*3/uL Normal 0-5 [facility] Comment on above: Order Comment: 212 Performed By: #### L 501.2300, L501.5200, L500.2500, L100.0100 ####[facility] [address] [place], [address] Platelet mean volume (Bld) [Entitic vol] 9.6 fL Normal 6.2-12.0 [facility] Comment on above: Order Comment: 212 Performed By: #### L 501.2300, L501.5200, L500.2500, L100.0100 ####[facility] [address] [place], [address] Platelets (Bld) [#/Vol] 242 10*3/uL Normal 150-450 [facility] Comment on above: Order Comment: 212 Performed By: #### L 501.2300, L501.5200, L500.2500, L100.0100 ####[facility] [address] [place], [address] RBC (Bld) [#/Vol] 2.64 10*6/uL Low 4.6-6.2 [facility] Comment on above: Order Comment: 212 Performed By: #### L 501.2300, L501.5200, L500.2500, L100.0100 ####[facility] [address] [place], [address] RDW SD 60.9 fl High 35.1-43.9 [facility] Comment on above: Order Comment: 212 Performed By: #### L 501.2300, L501.5200, L500.2500, L100.0100 ####[facility] [address] [place], [address] WBC (Bld) [#/Vol] 4.4 10*3/uL Normal 4.4-11.[address] [facility] Comment on above: Order Comment: 212 Performed By: #### L 501.2300, L501.5200, L500.2500, L100.0100 ####[facility] [address] [place], [address] Carbon dioxide, total [Moles /volume] in Central venous bloodOrdered By: Michelle Loco on 02-02-2025 CO2 [Moles/Vol] 18.1 mmol/L Low 21.0-32.0 [facility] Chloride assayOrdered By: Liborio Loco on 02-02-2025 Chloride [Moles/Vol] 107 mmol/L 98-108 [facility] Eosinophil percentageOrdered By: Michelle Loco on 02-02-2025 Eosinophils/100 WBC (Bld) 2.3 % 0-5 [facility] Erythrocyte distribution wid th ratioOrdered By: Michelle Loco on 02-02-2025 Erythrocyte distribution width (RBC) [Ratio] 17.2 % High 11.6-14.6 [facility] Erythrocyte distribution wid th standard deviationOrdered By: Michelle Loco on 02-02-2025 Erythrocyte distribution width (RBC) [Ratio] 60.9 fl High 35.1-43.9 [facility] Glomerular filtration rate ( GFR) estimation/1.73 sq m using serum, plasma, or whole bOrdered By: Michelle Loco on 02-02-2025 GFR/1.73 sq M.predicted among non-blacks MDRD (S/P/Bld) [Vol rate/Area] 82 mL/min/{1.73_m2} >60 [facility] Comment on above: mL/min/1.73m2 CKD-EP I Creatinine Equation (2020) Hematocrit Auto (Bld) [Volum e fraction]Ordered By: Michelle Loco on 02-02-2025 Hematocrit (Bld) [Volume fraction] 25.4 % Low 40-54 [facility] Hemoglobin measurementOrdere d By: Michelle Loco on 02-02-2025 Hemoglobin (Bld) [Mass/Vol] 8.5 g/dL Low 13.0-16.5 [facility] Immature granulocytes/100 WB C Auto (Bld)Ordered By: Michelle Loco on 02-02-2025 Immature granulocytes/100 WBC (Bld) 1.100 % High 0.0-0.9 [facility] Comment on above: IG% - Immature Granu locytes (promyelocytes, myelocytes and metamyelocytes) > 1% indicates that a LEFT SHIFT is Present. MCV (mean corpuscular volume ) determinationOrdered By: Michelle Loco on 02-02-2025 MCV (RBC) [Entitic vol] 96.2 fL High 80-94 [facility] Magnesiumon 02-02-2025 Magnesium [Mass/Vol] 1.4 mg/dL Low 1.5-2.2 [facility] Comment on above: Order Comment: 212 Performed By: #### L 501.2300, L501.5200, L500.2500, L100.0100 ####[facility] [address] [place], [place], [id number] Magnesium measurement (mass/ volume)Ordered By: Michelle Loco on 02-02-2025 Magnesium (Unsp spec) [Mass/Vol] 1.4 mg/dL Low 1.5-2.2 [facility] Mean corpuscular hemoglobin (MCH) determinationOrdered By: Michelle Loco on 02-02-2025 MCH (RBC) [Entitic mass] 32.2 pg High 27.0-32.0 [facility] Mean corpuscular hemoglobin concentration (MCHC) determinationOrdered By: Michelle Loco on 02-02-2025 MCHC (RBC) [Mass/Vol] 33.5 g/dL 32-36 [facility] Mean platelet volume determi nationOrdered By: Michelle Loco on 02-02-2025 Platelet mean volume (Bld) [Entitic vol] 9.6 fL 6.2-12.0 [facility] Monocyte percentageOrdered B y: Michelle Loco on 02-02-2025 Monocytes/100 WBC (Bld) 8.9 % 0-10 [facility] Neutrophil percentageOrdered By: Michelle Loco on 02-02-2025 Neutrophils/100 WBC (Bld) 63.8 % 47-70 [facility] Nucleated red blood cell per centageOrdered By: Michelle Loco on 02-02-2025 Nucleated RBC/100 WBC (Bld) [Ratio] 0 % 0-5 [facility] Phosphoruson 02-02-2025 Phosphate [Mass/Vol] 4.7 mg/dL High 2.7-4.5 [facility] Comment on above: Order Comment: 212 Performed By: #### L 501.2300, L501.5200, L500.2500, L100.0100 ####[facility] [address] [place], [address] Platelet countOrdered By: Liborio Loco on 02-02-2025 Platelets (Bld) [#/Vol] 242 10*3/uL 150-450 [facility] Potassium measurement (mass/ volume)Ordered By: Michelle Loco on 02-02-2025 Potassium (Unsp spec) [Mass/Vol] 4.2 mmol/L 3.3-5.1 [facility] RBC Auto (Bld) [#/Vol]Ordere d By: Michelle Loco on 02-02-2025 RBC (Bld) [#/Vol] 2.64 10*6/uL Low 4.6-6.2 [facility] Serum creatinine measurement (mass/volume)Ordered By: Michelle Loco on 02-02-2025 Creatinine [Mass/Vol] 1.03 mg/dL 0.70-1.20 [facility] Serum glucose measurement (m ass/volume)Ordered By: Michelle Loco on 02-02-2025 Glucose [Mass/Vol] 104 mg/dL High 70-[address] [facility] Serum or plasma calcium ed urement (mass/volume)Ordered By: Michelle Loco on 02-02-2025 Calcium [Mass/Vol] 8.7 mg/dL 7.6-11.[address] [facility] Serum or plasma urea nitroge n measurement (mass/volume)Ordered By: Michelle Loco on 02-02-2025 Urea nitrogen [Mass/Vol] 13 mg/dL - [facility] Sodium levelOrdered By: Malinda Loco on 02-02-2025 Sodium [Moles/Vol] 136 mmol/L 133-[address] [facility] White blood cell (WBC) count Ordered By: Michelle Loco on 02-02-2025 WBC (Bld) [#/Vol] 4.4 10*3/uL 4.4-11.[address] [facility] Basic Metabolic Profile (BMP )on 01-26-2025 BUN Normal - [facility] Comment on above: Result Comment: Canc elled via OM: Order cancelled - Patient discharged Performed By: #### L 500.2500 ####[facility] [address] [place], [place], [id number] BUN/CRE Normal - [facility] Comment on above: Result Comment: Canc elled via OM: Order cancelled - Patient discharged Performed By: #### L 500.2500 ####[facility] [address] [place], [address] Calcium Normal 7.6-11.0 [facility] Comment on above: Result Comment: Canc elled via OM: Order cancelled - Patient discharged Performed By: #### L 500.2500 ####[facility] [address] [place], [address] CL Normal 98-108 [facility] Comment on above: Result Comment: Canc elled via OM: Order cancelled - Patient discharged Performed By: #### L 500.2500 ####[facility] [address] [place], [address] CO2 Normal 21.0-32.0 [facility] Comment on above: Result Comment: Canc elled via OM: Order cancelled - Patient discharged Performed By: #### L 500.2500 ####[facility] [address] [place], [address] CREAT,SERUM Normal 0.70-1.20 [facility] Comment on above: Result Comment: Canc elled via OM: Order cancelled - Patient discharged Performed By: #### L 500.2500 ####[facility] [address] [place], [address] eGFR Normal >60 [facility] Comment on above: Result Comment: Canc elled via OM: Order cancelled - Patient discharged Performed By: #### L 500.2500 ####[facility] [address] [place], [address] GAP Normal 5-15 [facility] Comment on above: Result Comment: Canc elled via OM: Order cancelled - Patient discharged Performed By: #### L 500.2500 ####[facility] [address] [place], [address] GLU Normal 70-99 [facility] Comment on above: Result Comment: Canc elled via OM: Order cancelled - Patient discharged Performed By: #### L 500.2500 ####[facility] [address] [place], [address] Potassium Normal 3.3-5.1 [facility] Comment on above: Result Comment: Canc elled via OM: Order cancelled - Patient discharged Performed By: #### L 500.2500 ####[facility] [address] [place], [address] Basic Metabolic Profile (BMP) Normal 133-145 [facility] Comment on above: Result Comment: Canc elled via OM: Order cancelled - Patient discharged Performed By: #### L 500.2500 ####[facility] [address] [place], [address] Anion gap in Serum or Plasma Ordered By: Michelle Loco on 01-25-2025 Anion gap [Moles/Vol] 10 mmol/L 5-15 [facility] BUN/creatinine ratioOrdered By: Michelle Loco on 01-25-2025 Urea nitrogen/Creatinine [Mass ratio] 18.2 mg/mg 10-20 [facility] Bilirubin, totalOrdered By: Michelle Loco on 01-25-2025 Bilirubin [Mass/Vol] 0.29 mg/dL 0.00-1.30 [facility] CBC-Complete Blood Cnt No Di ffon 01-25-2025 Erythrocyte distribution width (RBC) [Ratio] 17.5 % High 11.6-14.6 [facility] Comment on above: Order Comment: 212.1 Performed By: #### L 503.0106, L500.4100, L501.9520, L100.0500, L501.5200, L500.4050, L506.1001 ####[facility] [address] [place], [address] Hematocrit (Bld) [Volume fraction] 23.3 % Low 40-54 [facility] Comment on above: Order Comment: 212.1 Performed By: #### L 503.0106, L500.4100, L501.9520, L100.0500, L501.5200, L500.4050, L506.1001 ####[facility] [address] [place], [address] Hemoglobin (Bld) [Mass/Vol] 8.1 g/dL Low 13.0-16.5 [facility] Comment on above: Order Comment: .1 Performed By: #### L 503.0106, L500.4100, L501.9520, L100.0500, L501.5200, L500.4050, L506.1001 ####[facility] [address] [place], [address] MCH (RBC) [Entitic mass] 32.1 pg High 27.0-32.0 [facility] Comment on above: Order Comment: .1 Performed By: #### L 503.0106, L500.4100, L501.9520, L100.0500, L501.5200, L500.4050, L506.1001 ####[facility] [address] [place], [address] MCHC (RBC) [Mass/Vol] 34.8 g/dL Normal 32-36 [facility] Comment on above: Order Comment: . Performed By: #### L 503.0106, L500.4100, L501.9520, L100.0500, L501.5200, L500.4050, L506.1001 ####[facility] [address] [place], [address] MCV (RBC) [Entitic vol] 92.5 fL Normal 80-94 [facility] Comment on above: Order Comment: .1 Performed By: #### L 503.0106, L500.4100, L501.9520, L100.0500, L501.5200, L500.4050, L506.1001 ####[facility] [address] [place], [address] Platelet mean volume (Bld) [Entitic vol] 11.8 fL Normal 6.2-12.0 [facility] Comment on above: Order Comment: 212.1 Performed By: #### L 503.0106, L500.4100, L501.9520, L100.0500, L501.5200, L500.4050, L506.1001 ####[facility] [address] [place], [address] Platelets (Bld) [#/Vol] 54 10*3/uL Low 150-450 [facility] Comment on above: Order Comment: 212.1 Performed By: #### L 503.0106, L500.4100, L501.9520, L100.0500, L501.5200, L500.4050, L506.1001 ####[facility] [address] [place], [address] RBC (Bld) [#/Vol] 2.52 10*6/uL Low 4.6-6.2 [facility] Comment on above: Order Comment: 212.1 Performed By: #### L 503.0106, L500.4100, L501.9520, L100.0500, L501.5200, L500.4050, L506.1001 ####[facility] [address] [place], [address] RDW SD 59.5 fl High 35.1-43.9 [facility] Comment on above: Order Comment: 212.1 Performed By: #### L 503.0106, L500.4100, L501.9520, L100.0500, L501.5200, L500.4050, L506.1001 ####[facility] [address] [place], [address] WBC (Bld) [#/Vol] 5.3 10*3/uL Normal 4.4-11.[address] [facility] Comment on above: Order Comment: 212.1 Performed By: #### L 503.0106, L500.4100, L501.9520, L100.0500, L501.5200, L500.4050, L506.1001 ####[facility] [address] [place], [place], [id number] Calculated very low density lipoprotein (VLDL) cholesterol measurementOrdered By: Michelle Loco on 01-25-2025 Calculated very low density lipoprotein (VLDL) cholesterol measurement 17 mg/dL 5-40 [facility] Carbon dioxide, total [Moles /volume] in Central venous bloodOrdered By: Michelle Loco on 01-25-2025 CO2 [Moles/Vol] 18.1 mmol/L Low 21.0-32.0 [facility] Chloride assayOrdered By: Liborio Loco on 01-25-2025 Chloride [Moles/Vol] 104 mmol/L 98-108 [facility] Comprehensive Metabolic Prof ilon 01-25-2025 Albumin [Mass/Vol] 3.1 g/dL Low 3.4-4.[address] [facility] Comment on above: Order Comment: 212.1 Performed By: #### L 503.0106, L500.4100, L501.9520, L100.0500, L501.5200, L500.4050, L506.1001 ####[facility] [address] [place], [place], [id number] Albumin/Globulin [Mass ratio] 1.2 {ratio} Normal 0.9-2.4 [facility] Comment on above: Order Comment: 212.1 Performed By: #### L 503.0106, L500.4100, L501.9520, L100.0500, L501.5200, L500.4050, L506.1001 ####[facility] [address] [place], [place], [id number] ALK PHOS 73 U/L Normal 40-129 [facility] Comment on above: Order Comment: 212.1 Performed By: #### L 503.0106, L500.4100, L501.9520, L100.0500, L501.5200, L500.4050, L506.1001 ####[facility] [address] [place], [address] ALT [Catalytic activity/Vol] 59 U/L High <=46 [facility] Comment on above: Order Comment: 212.1 Performed By: #### L 503.0106, L500.4100, L501.9520, L100.0500, L501.5200, L500.4050, L506.1001 ####[facility] [address] [place], [address] AST [Catalytic activity/Vol] 87 U/L High <=37 [facility] Comment on above: Order Comment: 212.1 Performed By: #### L 503.0106, L500.4100, L501.9520, L100.0500, L501.5200, L500.4050, L506.1001 ####[facility] [address] [place], [address] Bilirubin [Mass/Vol] 0.29 mg/dL Normal 0.00-1.30 [facility] Comment on above: Order Comment: 212.1 Performed By: #### L 503.0106, L500.4100, L501.9520, L100.0500, L501.5200, L500.4050, L506.1001 ####[facility] [address] [place], [address] BUN/CRE 18.2 RATIO Normal 10-20 [facility] Comment on above: Order Comment: 212.1 Performed By: #### L 503.0106, L500.4100, L501.9520, L100.0500, L501.5200, L500.4050, L506.1001 ####[facility] [address] [place], [address] Calcium [Mass/Vol] 8.1 mg/dL Normal 7.6-11.[address] [facility] Comment on above: Order Comment: 212.1 Performed By: #### L 503.0106, L500.4100, L501.9520, L100.0500, L501.5200, L500.4050, L506.1001 ####[facility] [address] [place], [address] Chloride [Moles/Vol] 104 mmol/L Normal 98-108 [facility] Comment on above: Order Comment: 212.1 Performed By: #### L 503.0106, L500.4100, L501.9520, L100.0500, L501.5200, L500.4050, L506.1001 ####[facility] [address] [place], [address] CO2 [Moles/Vol] 18.1 mmol/L Low 21.0-32.0 [facility] Comment on above: Order Comment: 212.1 Performed By: #### L 503.0106, L500.4100, L501.9520, L100.0500, L501.5200, L500.4050, L506.1001 ####[facility] [address] [place], [address] Creatinine [Mass/Vol] 1.03 mg/dL Normal 0.70-1.20 [facility] Comment on above: Order Comment: 212.1 Performed By: #### L 503.0106, L500.4100, L501.9520, L100.0500, L501.5200, L500.4050, L506.1001 ####[facility] [address] [place], [address] GAP 10 Normal 5-15 [facility] Comment on above: Order Comment: 212.1 Performed By: #### L 503.0106, L500.4100, L501.9520, L100.0500, L501.5200, L500.4050, L506.1001 ####[facility] [address] [place], [address] GFR/1.73 sq M.predicted among non-blacks MDRD (S/P/Bld) [Vol rate/Area] 82 mL/min/{1.73_m2} Normal >60 [facility] Comment on above: Order Comment: 212.1 Result Comment: mL/m in/1.73m2 CKD-EPI Creatinine Equation (2020) Performed By: #### L 503.0106, L500.4100, L501.9520, L100.0500, L501.5200, L500.4050, L506.1001 ####[facility] [address] [place], [address] Globulin (S) [Mass/Vol] 2.7 g/dL Normal 2.2-4.2 [facility] Comment on above: Order Comment: 212.1 Performed By: #### L 503.0106, L500.4100, L501.9520, L100.0500, L501.5200, L500.4050, L506.1001 ####[facility] [address] [place], [address] Glucose [Mass/Vol] 115 mg/dL High 70-[address] [facility] Comment on above: Order Comment: 212.1 Performed By: #### L 503.0106, L500.4100, L501.9520, L100.0500, L501.5200, L500.4050, L506.1001 ####[facility] [address] [place], [address] Potassium [Moles/Vol] 3.5 mmol/L Normal 3.3-5.1 [facility] Comment on above: Order Comment: 212.1 Performed By: #### L 503.0106, L500.4100, L501.9520, L100.0500, L501.5200, L500.4050, L506.1001 ####[facility] [address] [place], [address] Sodium [Moles/Vol] 132 mmol/L Low 133-[address] [facility] Comment on above: Order Comment: 212.1 Performed By: #### L 503.0106, L500.4100, L501.9520, L100.0500, L501.5200, L500.4050, L506.1001 ####[facility] [address] [place], [address] T PROT 5.8 g/dL Low 5.9-8.4 [facility] Comment on above: Order Comment: 212.1 Performed By: #### L 503.0106, L500.4100, L501.9520, L100.0500, L501.5200, L500.4050, L506.1001 ####[facility] [address] [place], [address] Urea nitrogen [Mass/Vol] 19 mg/dL Normal 4-19 [facility] Comment on above: Order Comment: 212.1 Performed By: #### L 503.0106, L500.4100, L501.9520, L100.0500, L501.5200, L500.4050, L506.1001 ####[facility] [address] [place], [place], [id number] Erythrocyte distribution wid th ratioOrdered By: Michelle Loco on 01-25-2025 Erythrocyte distribution width (RBC) [Ratio] 17.5 % High 11.6-14.6 [facility] Erythrocyte distribution wid th standard deviationOrdered By: Michelle Loco on 01-25-2025 Erythrocyte distribution width (RBC) [Ratio] 59.5 fl High 35.1-43.9 [facility] Glomerular filtration rate ( GFR) estimation/1.73 sq m using serum, plasma, or whole bOrdered By: Michelle Loco on 01-25-2025 GFR/1.73 sq M.predicted among non-blacks MDRD (S/P/Bld) [Vol rate/Area] 82 mL/min/{1.73_m2} >60 [facility] Comment on above: mL/min/1.73m2 CKD-EP I Creatinine Equation (2020) Hematocrit Auto (Bld) [Volum e fraction]Ordered By: Michelle Loco on 01-25-2025 Hematocrit (Bld) [Volume fraction] 23.3 % Low 40-54 [facility] Hemoglobin measurementOrdere d By: Michelle Loco on 01-25-2025 Hemoglobin (Bld) [Mass/Vol] 8.1 g/dL Low 13.0-16.5 [facility] LDL calc ser/plasOrdered By: Michelle Loco on 01-25-2025 Cholesterol in LDL [Mass/Vol] 65 mg/dL [facility] Comment on above: Skcumzsoad=269-663 m g/dL & Higher Ejiz=205 mg/dL or greater Laboratory - Chemistry and C hemistry - challengeOrdered By: Michelle Loco on 01-25-2025 AST [Catalytic activity/Vol] 87 U/L High <38 [facility] Lipid Profileon 01-25-2025 CHOL:HDL 2.89 Normal [facility] Comment on above: Order Comment: 212.1 Performed By: #### L 503.0106, L500.4100, L501.9520, L100.0500, L501.5200, L500.4050, L506.1001 ####[facility] [address] [place], [place], [id number] Cholesterol [Mass/Vol] 126 mg/dL Normal <=200 [facility] Comment on above: Order Comment: 212.1 Result Comment: Chol esterol level, Desirable <200 mg/dLBorderline high cholesterol 200-239 mg/dLHigh cholesterol >=240 mg/dLRecommendations of the NCEP Adult Treatment Panel for thefollowing risk-cutoff thresholds for the [place] American[place]. Performed By: #### L 503.0106, L500.4100, L501.9520, L100.0500, L501.5200, L500.4050, L506.1001 ####[facility] [address] [place], [address] Cholesterol in HDL [Mass/Vol] 44 mg/dL Normal [facility] Comment on above: Order Comment: 212.1 Result Comment: Salome onal Cholesterol Education Program (NCEP) guidelines:<40 mg/dL: Low HDL-cholesterol (major risk factor for CHD)>= 60 mg/dL: High HDL-cholesterol (negative risk factor forCHD)HDL-cholesterol is affected by a number of factors, e.g.smoking, exercise, hormones, sex and age. Performed By: #### L 503.0106, L500.4100, L501.9520, L100.0500, L501.5200, L500.4050, L506.1001 ####[facility] [address] [place], [address] Cholesterol in LDL [Mass/Vol] 65 mg/dL Normal [facility] Comment on above: Order Comment: 212.1 Result Comment: Bord qigxut=558-382 mg/dL Higher Cnqb=254 mg/dL or greater Performed By: #### L 503.0106, L500.4100, L501.9520, L100.0500, L501.5200, L500.4050, L506.1001 ####[facility] [address] [place], [address] Cholesterol in VLDL [Mass/Vol] 17 mg/dL Normal 5-40 [facility] Comment on above: Order Comment: 212.1 Performed By: #### L 503.0106, L500.4100, L501.9520, L100.0500, L501.5200, L500.4050, L506.1001 ####[facility] [address] [place], [address] Triglyceride [Mass/Vol] 86 mg/dL Normal [facility] Comment on above: Order Comment: 212.1 Result Comment: The drugs N-Acetylcysteine and Metamizole may falselydepress this assay.Normal range: <150 mg/dLBorderline High: 150-199 mg/dLHigh: 200-499 mg/dLVery High: >500 mg/dL Performed By: #### L 503.0106, L500.4100, L501.9520, L100.0500, L501.5200, L500.4050, L506.1001 ####[facility] [address] [place], [place], [address] MCV (mean corpuscular volume ) determinationOrdered By: Michelle Loco on 01-25-2025 MCV (RBC) [Entitic vol] 92.5 fL 80-94 [facility] Magnesiumon 01-25-2025 Magnesium [Mass/Vol] 1.2 mg/dL Low 1.5-2.2 [facility] Comment on above: Order Comment: 212.1 Performed By: #### L 503.0106, L500.4100, L501.9520, L100.0500, L501.5200, L500.4050, L506.1001 ####[facility] [address] [place], [place], [address] Magnesium measurement (mass/ volume)Ordered By: Michelle Loco on 01-25-2025 Magnesium (Unsp spec) [Mass/Vol] 1.2 mg/dL Low 1.5-2.2 [facility] Mean corpuscular hemoglobin (MCH) determinationOrdered By: Michelle Loco on 01-25-2025 MCH (RBC) [Entitic mass] 32.1 pg High 27.0-32.0 [facility] Mean corpuscular hemoglobin concentration (MCHC) determinationOrdered By: Michelle Loco on 01-25-2025 MCHC (RBC) [Mass/Vol] 34.8 g/dL 32-36 [facility] Mean platelet volume determi nationOrdered By: Michelle Loco on 01-25-2025 Platelet mean volume (Bld) [Entitic vol] 11.8 fL 6.2-12.0 [facility] Platelet countOrdered By: Liborio Loco on 01-25-2025 Platelets (Bld) [#/Vol] 54 10*3/uL Low 150-450 [facility] Potassium measurement (mass/ volume)Ordered By: Michelle Loco on 01-25-2025 Potassium (Unsp spec) [Mass/Vol] 3.5 mmol/L 3.3-5.1 [facility] RBC Auto (Bld) [#/Vol]Ordere d By: Michelle Loco on 01-25-2025 RBC (Bld) [#/Vol] 2.52 10*6/uL Low 4.6-6.2 [facility] Screening total cholesterol/ high density lipoprotein (HDL) cholesterol ratioOrdered By: Michelle Loco on 01-25-2025 Cholesterol.total/Janie sterol in HDL [Mass ratio] 2.89 {ratio} [facility] Serum creatinine measurement (mass/volume)Ordered By: Michelle Loco on 01-25-2025 Creatinine [Mass/Vol] 1.03 mg/dL 0.70-1.20 [facility] Serum globulin measurementOr dered By: Michelle Loco on 01-25-2025 Globulin (S) [Mass/Vol] 2.7 g/dL 2.2-4.2 [facility] Serum glucose measurement (m ass/volume)Ordered By: Michelle Loco on 01-25-2025 Glucose [Mass/Vol] 115 mg/dL High 70-[address] [facility] Serum or plasma alanine gregory otransferase (ALT) measurementOrdered By: Michelle Loco on 01-25-2025 ALT [Catalytic activity/Vol] 59 U/L High <47 [facility] Serum or plasma albumin ed urement (mass/volume)Ordered By: Michelle Loco on 01-25-2025 Albumin [Mass/Vol] 3.1 g/dL Low 3.4-4.[address] [facility] Serum or plasma albumin/glob ulin mass ratioOrdered By: Michelle Loco on 01-25-2025 Albumin/Globulin [Mass ratio] 1.2 {ratio} 0.9-2.4 [facility] Serum or plasma alkaline edwin sphatase measurementOrdered By: Michelle Loco on 01-25-2025 ALP [Catalytic activity/Vol] 73 U/L 40-129 [facility] Serum or plasma calcium ed urement (mass/volume)Ordered By: Michelle Loco on 01-25-2025 Calcium [Mass/Vol] 8.1 mg/dL 7.6-11.[address] [facility] Serum or plasma cholesterol in HDL measurement (mass/volume)Ordered By: Michelle Loco on 01-25-2025 Cholesterol in HDL [Mass/Vol] 44 mg/dL >40 [facility] Comment on above: National Cholesterol Education Program (NCEP) guidelines:<40 mg/dL: Low HDL-cholesterol (major risk factor for CHD)>= 60 mg/dL: High HDL-cholesterol (negative risk factor for CHD)HDL-cholesterol is affected by a number of factors, e.g. smoking, exercise, hormones, sex and age. Serum or plasma cholesterol measurement (mass/volume)Ordered By: Michelle Loco on 01-25-2025 Cholesterol [Mass/Vol] 126 mg/dL <201 [facility] Comment on above: Cholesterol level, D esirable <200 mg/dLBorderline high cholesterol 200-239 mg/dLHigh cholesterol >=240 mg/dLRecommendations of the NCEP Adult Treatment Panel for the following risk-cutoff thresholds for the [place] Citizen [place] population. Serum or plasma urea nitroge n measurement (mass/volume)Ordered By: Michelle Loco on 01-25-2025 Urea nitrogen [Mass/Vol] 19 mg/dL 4-19 [facility] Sodium levelOrdered By: Malinda Loco on 01-25-2025 Sodium [Moles/Vol] 132 mmol/L Low 133-[address] [facility] TSH DL <= 0.005 mIU/L QnOrde red By: Michelle Loco on 01-25-2025 TSH Qn 3.080 uIU/mL 0.300-4.200 [facility] Thyroid Stim Hormone (TSH)on 01-25-2025 TSH 3.080 uIU/mL Normal 0.300-4.200 [facility] Comment on above: Order Comment: 212.1 Performed By: #### L 503.0106, L500.4100, L501.9520, L100.0500, L501.5200, L500.4050, L506.1001 ####[facility] [address] [place], [place], [id number] Total proteinOrdered By: Danyelle Loco on 01-25-2025 Protein [Mass/Vol] 5.8 g/dL Low 5.9-8.[address] [facility] Triglycerides measurementOrd ered By: Michelle Loco on 01-25-2025 Triglyceride [Mass/Vol] 86 mg/dL <199 [facility] Comment on above: The drugs N-Acetylcy steine and Metamizole may falsely depress this assay. Normal range: <150 mg/dLBorderline High: 150-199 mg/dLHigh: 200-499 mg/dLVery High: >500 mg/dL Vitamin B12on 01-25-2025 Cobalamin (Vitamin B12) [Mass/Vol] 450 pg/mL Normal 180-914 [facility] Comment on above: Order Comment: . Performed By: #### L 503.0106, L500.4100, L501.9520, L100.0500, L501.5200, L500.4050, L506.1001 ####[facility] [address] [place], [place], [id number] Vitamin B12 ser/plasOrdered By: Michelle Loco on 01-25-2025 Cobalamin (Vitamin B12) [Mass/Vol] 450 pg/mL 180-914 [facility] Vitamin D,25 Hydroxyon 01-25 Vitamin D 25-OH < 6.0 Low 30-100 [facility] Comment on above: Order Comment: 212.1 Result Comment: Anita min D StatusDeficiency: <20 ng/mL (50nmol/L)Insufficiency: 20-30 ng/mL (50-75 nmol/L)Sufficiency: 30-100 ng/mL (75-250 nmol/L)Toxicity: >100 ng/mL (>250 nmol/L) Performed By: #### L 503.0106, L500.4100, L501.9520, L100.0500, L501.5200, L500.4050, L506.1001 ####[facility] [address] [place], [address] White blood cell (WBC) count Ordered By: Michelle Loco on 01-25-2025 WBC (Bld) [#/Vol] 5.3 10*3/uL 4.4-11.[address] [facility] Absolute lymphocyte countOrd ered By: Shortyryan Lea on 01-24-2025 Lymphocytes Auto (Unsp spec) [#/Vol] 0.94 10*3/uL 0.83-4.51 [facility] Absolute neutrophil countOrd ered By: Shortywilber Lea on 01-24-2025 Neutrophils (Bld) [#/Vol] 2.2 10*3/uL 2.0-7.7 [facility] Anion gap in Serum or Plasma Ordered By: Shorty Lae on 01-24-2025 Anion gap [Moles/Vol] 10 mmol/L 5-15 [facility] Automated lymphocyte count a s percentage of total leukocytesOrdered By: Shorty Lea on 01-24-2025 Lymphocytes/100 WBC Auto (Unsp spec) 24.7 % - [facility] BUN/creatinine ratioOrdered By: Shorty Lea on 01-24-2025 Urea nitrogen/Creatinine [Mass ratio] 18.9 mg/mg - [facility] Basic Metabolic Profile (BMP )on 01-24-2025 BUN/CRE 18.9 RATIO Normal - [facility] Comment on above: Performed By: #### L 100.0100, L500.2500 ####[facility] [address] [place], [address] Calcium [Mass/Vol] 8.4 mg/dL Normal 7.6-11.[address] [facility] Comment on above: Performed By: #### L 100.0100, L500.2500 ####[facility] [address] [place], [address] Chloride [Moles/Vol] 104 mmol/L Normal 98-108 [facility] Comment on above: Performed By: #### L 100.0100, L500.2500 ####[facility] [address] [place], [address] CO2 [Moles/Vol] 17.6 mmol/L Low 21.0-32.0 [facility] Comment on above: Performed By: #### L 100.0100, L500.2500 ####[facility] [address] [place], [address] Creatinine [Mass/Vol] 0.93 mg/dL Normal 0.70-1.20 [facility] Comment on above: Performed By: #### L 100.0100, L500.2500 ####[facility] [address] [place], [address] ECRCL 83.95 ml/min Normal 50-250 [facility] Comment on above: Performed By: #### L 100.0100, L500.2500 ####[facility] [address] [place], [address] GAP 10 Normal 5-15 [facility] Comment on above: Performed By: #### L 100.0100, L500.2500 ####[facility] [address] [place], [address] GFR/1.73 sq M.predicted among non-blacks MDRD (S/P/Bld) [Vol rate/Area] 93 mL/min/{1.73_m2} Normal >60 [facility] Comment on above: Result Comment: mL/m in/1.73m2 CKD-EPI Creatinine Equation (2020) Performed By: #### L 100.0100, L500.2500 ####[facility] [address] [place], [address] Glucose [Mass/Vol] 117 mg/dL High 70-[address] [facility] Comment on above: Performed By: #### L 100.0100, L500.2500 ####[facility] [address] [place], [address] Potassium [Moles/Vol] 3.9 mmol/L Normal 3.3-5.1 [facility] Comment on above: Performed By: #### L 100.0100, L500.2500 ####[facility] [address] [place], [address] Sodium [Moles/Vol] 131 mmol/L Low 133-[address] [facility] Comment on above: Performed By: #### L 100.0100, L500.2500 ####[facility] [address] [place], [address] Urea nitrogen [Mass/Vol] 18 mg/dL Normal 4-19 [facility] Comment on above: Performed By: #### L 100.0100, L500.2500 ####[facility] [address] [place], [address] Basophil percentageOrdered B y: Shorty Lea on 01-24-2025 Basophils/100 WBC (Bld) 0.3 % 0-1 [facility] Bite cells detectionOrdered By: Shorty Lea on 01-24-2025 Bite cells LM Ql (Bld) RARE Wo [facility] Blood manual differential co mment interpretation (narrative result)Ordered By: Shorty Lea on 01-24-2025 Manual differential comment Mars (Bld) [Interp] SCANNED [facility] CBC W/Diff, Automatedon 01-13 ACANTHOCYTE RARE Normal [facility] Comment on above: Performed By: #### L 100.0100, L500.2500 ####[facility] [address] [place], [address] Anisocytosis Ql (Bld) 1+ Normal [facility] Comment on above: Performed By: #### L 100.0100, L500.2500 ####[facility] [address] [place], [address] BITE CELL RARE Normal [facility] Comment on above: Performed By: #### L 100.0100, L500.2500 ####[facility] [address] [place], [address] PLT EST MKD DEC Normal ADEQ [facility] Comment on above: Performed By: #### L 100.0100, L500.2500 ####[facility] [address] [place], [address] SMEAR COMMENT SCANNED Normal [facility] Comment on above: Performed By: #### L 100.0100, L500.2500 ####[facility] [address] [place], [address] Carbon dioxide, total [Moles /volume] in Central venous bloodOrdered By: Shorty Lea on 01-24-2025 CO2 [Moles/Vol] 17.6 mmol/L Low 21.0-32.0 [facility] Chloride assayOrdered By: Stuart Lea on 01-24-2025 Chloride [Moles/Vol] 104 mmol/L 98-108 [facility] Eosinophil percentageOrdered By: Shorty Lea on 01-24-2025 Eosinophils/100 WBC (Bld) 0.5 % 0-5 [facility] Erythrocyte distribution wid th ratioOrdered By: Shorty Lea on 01-24-2025 Erythrocyte distribution width (RBC) [Ratio] 17.4 % High 11.6-14.6 [facility] Erythrocyte distribution wid th standard deviationOrdered By: Shorty Lea on 01-24-2025 Erythrocyte distribution width (RBC) [Ratio] 57.9 fl High 35.1-43.9 [facility] Ferritinon 01-24-2025 Ferritin [Mass/Vol] 2300 ng/mL High 37-417 [facility] Comment on above: Performed By: #### L 503.6030, L503.5350 ####[facility] [address] [place], [place], [id number] Glomerular filtration rate ( GFR) estimation/1.73 sq m using serum, plasma, or whole bOrdered By: Shorty Lea on 01-24-2025 GFR/1.73 sq M.predicted among non-blacks MDRD (S/P/Bld) [Vol rate/Area] 93 mL/min/{1.73_m2} >60 [facility] Comment on above: mL/min/1.73m2 CKD-EP I Creatinine Equation (2020) Hematocrit Auto (Bld) [Volum e fraction]Ordered By: Shorty Lea on 01-24-2025 Hematocrit (Bld) [Volume fraction] 25.1 % Low 40-54 [facility] Hemoglobin measurementOrdere d By: Shorty Lea on 01-24-2025 Hemoglobin (Bld) [Mass/Vol] 8.8 g/dL Low 13.0-16.5 [facility] Immature granulocytes/100 WB C Auto (Bld)Ordered By: Shorty Lea on 01-24-2025 Immature granulocytes/100 WBC (Bld) 4.200 % High 0.0-0.9 [facility] Comment on above: IG% - Immature Granu locytes (promyelocytes, myelocytes and metamyelocytes) > 1% indicates that a LEFT SHIFT is Present. Iron measurement (mass/mass) Ordered By: Shorty Lea on 01-24-2025 Iron (Unsp spec) [Mass/Mass] 64 ug/dL Low 65-175 [facility] Iron+Iron Binding Capacityon 01-24-2025 TIBC 174 ug/dL Low 250-450 [facility] Comment on above: Performed By: #### L 503.6030, L503.6550 ####[facility] [address] [place], [place], [id number] Laboratory - Hematology and Cell countsOrdered By: Shorty Lea on 01-24-2025 Anisocytosis Ql (Bld) 1+ [facility] MCV (mean corpuscular volume ) determinationOrdered By: Shorty Lea on 01-24-2025 MCV (RBC) [Entitic vol] 90.9 fL 80-94 [facility] Mean corpuscular hemoglobin (MCH) determinationOrdered By: Shorty Lea on 01-24-2025 MCH (RBC) [Entitic mass] 31.9 pg 27.0-32.0 [facility] Mean corpuscular hemoglobin concentration (MCHC) determinationOrdered By: Shorty Lea on 01-24-2025 MCHC (RBC) [Mass/Vol] 35.1 g/dL 32-36 [facility] Mean platelet volume determi nationOrdered By: Shorty Lea on 01-24-2025 Platelet mean volume (Bld) [Entitic vol] 10.9 fL 6.2-12.0 [facility] Monocyte percentageOrdered B y: Shorty Lea on 01-24-2025 Monocytes/100 WBC (Bld) 11.5 % High 0-10 [facility] Neutrophil percentageOrdered By: Shorty Lea on 01-24-2025 Neutrophils/100 WBC (Bld) 58.8 % 47-70 [facility] No Panel InformationOrdered By: Shorty Lea on 01-24-2025 Unsaturated Iron Binding Capacity 110 ug/dL Low 228-428 [facility] Nucleated red blood cell per centageOrdered By: Shorty Lea on 01-24-2025 Nucleated RBC/100 WBC (Bld) [Ratio] 0 % 0-5 [facility] Platelet countOrdered By: Stuart Lea on 01-24-2025 Platelets (Bld) [#/Vol] 32 10*3/uL Low 150-450 [facility] Comment on above: CRITICAL VALUE WHITEHEAD D TO MOE YIN01/24/25 0541 Chelsey Leonardo.RESULTS READ BACK BY SAME. Platelet estimateOrdered By: Shorty Lea on 01-24-2025 Platelets LM Ql (Bld) MKD DEC ADEQ [facility] Potassium measurement (mass/ volume)Ordered By: Shorty Lea on 01-24-2025 Potassium (Unsp spec) [Mass/Vol] 3.9 mmol/L 3.3-5.1 [facility] RBC Auto (Bld) [#/Vol]Ordere d By: Shorty Lea on 01-24-2025 RBC (Bld) [#/Vol] 2.76 10*6/uL Low 4.6-6.2 [facility] Serum creatinine measurement (mass/volume)Ordered By: Shorty Lea on 01-24-2025 Creatinine [Mass/Vol] 0.93 mg/dL 0.70-1.20 [facility] Serum glucose measurement (m ass/volume)Ordered By: Shorty Lea on 01-24-2025 Glucose [Mass/Vol] 117 mg/dL High 70-[address] [facility] Serum or plasma calcium ed urement (mass/volume)Ordered By: Shorty Lea on 01-24-2025 Calcium [Mass/Vol] 8.4 mg/dL 7.6-11.[address] [facility] Serum or plasma ferritin poly surement (mass/volume)Ordered By: Shorty Lea on 01-24-2025 Ferritin [Mass/Vol] 2300 ng/mL High 37-417 [facility] Serum or plasma iron saturat ion measurement (mass fraction)Ordered By: Shorty Lea on 01-24-2025 Iron saturation [Mass fraction] 36.8 % 9-55 [facility] Comment on above: Previous reported re sult: 37.0 %Edited by: NÉSTOR on 01/24/25:1657 AMENDED REPORT 01/24/25 1657 IRON SATURATION previously reported as: 37.0 % Serum or plasma urea nitroge n measurement (mass/volume)Ordered By: Shorty Lea on 01-24-2025 Urea nitrogen [Mass/Vol] 18 mg/dL 4-19 [facility] Sodium levelOrdered By: Wilman Lea on 01-24-2025 Sodium [Moles/Vol] 131 mmol/L Low 133-[address] [facility] White blood cell (WBC) count Ordered By: Shorty Lea on 01-24-2025 WBC (Bld) [#/Vol] 3.8 10*3/uL Low 4.4-11.[address] [facility] Bilirubin, totalOrdered By: Shorty Lea on 01-22-2025 Bilirubin [Mass/Vol] 0.39 mg/dL 0.00-1.30 [facility] Comprehensive Metabolic Prof ilon 01-22-2025 Albumin [Mass/Vol] 3.2 g/dL Low 3.4-4.[address] [facility] Comment on above: Performed By: #### L 500.4050, L100.0100 ####[facility] [address] [place], [address] Albumin/Globulin [Mass ratio] 1.1 {ratio} Normal 0.9-2.4 [facility] Comment on above: Performed By: #### L 500.4050, L100.0100 ####[facility] [address] [place], [address] ALK PHOS 81 U/L Normal 40-129 [facility] Comment on above: Performed By: #### L 500.4050, L100.0100 ####[facility] [address] [place], [address] ALT [Catalytic activity/Vol] 12 U/L Normal <=46 [facility] Comment on above: Performed By: #### L 500.4050, L100.0100 ####[facility] [address] [place], [address] AST [Catalytic activity/Vol] 33 U/L Normal <=37 [facility] Comment on above: Performed By: #### L 500.4050, L100.0100 ####[facility] [address] [place], [address] Bilirubin [Mass/Vol] 0.39 mg/dL Normal 0.00-1.30 [facility] Comment on above: Performed By: #### L 500.4050, L100.0100 ####[facility] [address] [place], [address] BUN/CRE 14.6 RATIO Normal 10-20 [facility] Comment on above: Performed By: #### L 500.4050, L100.0100 ####[facility] [address] [place], [address] Calcium [Mass/Vol] 8.3 mg/dL Normal 7.6-11.[address] [facility] Comment on above: Performed By: #### L 500.4050, L100.0100 ####[facility] [address] [place], [address] Chloride [Moles/Vol] 104 mmol/L Normal 98-108 [facility] Comment on above: Performed By: #### L 500.4050, L100.0100 ####[facility] [address] [place], [address] CO2 [Moles/Vol] 16.4 mmol/L Low 21.0-32.0 [facility] Comment on above: Performed By: #### L 500.4050, L100.0100 ####[facility] [address] [place], [address] Creatinine [Mass/Vol] 1.12 mg/dL Normal 0.70-1.20 [facility] Comment on above: Performed By: #### L 500.4050, L100.0100 ####[facility] [address] [place], [address] ECRCL 69.70 ml/min Normal 50-250 [facility] Comment on above: Performed By: #### L 500.4050, L100.0100 ####[facility] [address] [place], [address] GAP 9 Normal 5-15 [facility] Comment on above: Performed By: #### L 500.4050, L100.0100 ####[facility] [address] [place], [address] GFR/1.73 sq M.predicted among non-blacks MDRD (S/P/Bld) [Vol rate/Area] 74 mL/min/{1.73_m2} Normal >60 [facility] Comment on above: Result Comment: mL/m in/1.73m2 CKD-EPI Creatinine Equation (2020) Performed By: #### L 500.4050, L100.0100 ####[facility] [address] [place], [address] Globulin (S) [Mass/Vol] 3.0 g/dL Normal 2.2-4.2 [facility] Comment on above: Performed By: #### L 500.4050, L100.0100 ####[facility] [address] [place], [address] Glucose [Mass/Vol] 199 mg/dL High 70-[address] [facility] Comment on above: Performed By: #### L 500.4050, L100.0100 ####[facility] [address] [place], [address] Potassium [Moles/Vol] 4.9 mmol/L Normal 3.3-5.1 [facility] Comment on above: Performed By: #### L 500.4050, L100.0100 ####[facility] [address] [place], [address] Sodium [Moles/Vol] 130 mmol/L Low 133-[address] [facility] Comment on above: Performed By: #### L 500.4050, L100.0100 ####[facility] [address] [place], [address] T PROT 6.2 g/dL Normal 5.9-8.4 [facility] Comment on above: Performed By: #### L 500.4050, L100.0100 ####[facility] [address] [place], [address] Urea nitrogen [Mass/Vol] 16 mg/dL Normal 4-19 [facility] Comment on above: Performed By: #### L 500.4050, L100.0100 ####[facility] [address] [place], [address] Laboratory - Chemistry and C hemistry - challengeOrdered By: Shorty Lea on 01-22-2025 AST [Catalytic activity/Vol] 33 U/L <38 [facility] Review by pathologistOrdered By: Shorty Lea on 01-22-2025 Pathologist review Mars (Unsp spec) [Interp] Trish frandy [facility] Pathologist review Mars (Unsp spec) [Interp] Reviewed [facility] Comment on above: Previous reported re sult: Trish frandy Edited by: DWIGHT on 02/03/25:1545SEE REPORT IN PATIENT'S EMR AMENDED REPORT 02/03/25 1545 PATH REV previously reported as: Trish wise Serum globulin measurementOr dered By: Shorty Lea on 01-22-2025 Globulin (S) [Mass/Vol] 3.0 g/dL 2.2-4.2 [facility] Serum or plasma alanine gregory otransferase (ALT) measurementOrdered By: Shorty Lea on 01-22-2025 ALT [Catalytic activity/Vol] 12 U/L <47 [facility] Serum or plasma albumin ed urement (mass/volume)Ordered By: Shorty Lea on 01-22-2025 Albumin [Mass/Vol] 3.2 g/dL Low 3.4-4.[address] [facility] Serum or plasma albumin/glob ulin mass ratioOrdered By: Shorty Lea on 01-22-2025 Albumin/Globulin [Mass ratio] 1.1 {ratio} 0.9-2.4 [facility] Serum or plasma alkaline edwin sphatase measurementOrdered By: Shorty Lea on 01-22-2025 ALP [Catalytic activity/Vol] 81 U/L 40-129 [facility] Total proteinOrdered By: Ebony Lea on 01-22-2025 Protein [Mass/Vol] 6.2 g/dL 5.9-8.[address] [facility] CBC W/Diff, Automatedon ACANTHOCYTE 1+ Normal [facility] Comment on above: Performed By: #### L 501.2300, L100.0100, L500.4050 ####[facility] [address] [place], [address] Anisocytosis Ql (Bld) 1+ Normal [facility] Comment on above: Performed By: #### L 501.2300, L100.0100, L500.4050 ####[facility] [address] [place], [address] OVALOCYTE 1+ Normal [facility] Comment on above: Performed By: #### L 501.2300, L100.0100, L500.4050 ####[facility] [address] [place], [address] PLT EST MKD DEC Normal ADEQ [facility] Comment on above: Performed By: #### L 501.2300, L100.0100, L500.4050 ####[facility] [address] [place], [address] Comprehensive Metabolic Prof [facility] 01-21-2025 Albumin [Mass/Vol] 3.0 g/dL Low 3.4-4.[address] [facility] Comment on above: Performed By: #### L 501.2300, L100.0100, L500.4050 ####[facility] [address] [place], [address] Albumin/Globulin [Mass ratio] 1.1 {ratio} Normal 0.9-2.4 [facility] Comment on above: Performed By: #### L 501.2300, L100.0100, L500.4050 ####[facility] [address] [place], [address] ALK PHOS 79 U/L Normal 40-129 [facility] Comment on above: Performed By: #### L 501.2300, L100.0100, L500.4050 ####[facility] [address] [place], [address] ALT [Catalytic activity/Vol] 13 U/L Normal <=46 [facility] Comment on above: Performed By: #### L 501.2300, L100.0100, L500.4050 ####[facility] [address] [place], [address] AST [Catalytic activity/Vol] 37 U/L Normal <=37 [facility] Comment on above: Performed By: #### L 501.2300, L100.0100, L500.4050 ####[facility] [address] [place], [address] Bilirubin [Mass/Vol] 0.59 mg/dL Normal 0.00-1.30 [facility] Comment on above: Performed By: #### L 501.2300, L100.0100, L500.4050 ####[facility] [address] [place], [address] BUN/CRE 14.7 RATIO Normal 10-20 [facility] Comment on above: Performed By: #### L 501.2300, L100.0100, L500.4050 ####[facility] [address] [place], [address] Calcium [Mass/Vol] 7.8 mg/dL Normal 7.6-11.[address] [facility] Comment on above: Performed By: #### L 501.2300, L100.0100, L500.4050 ####[facility] [address] [place], [address] Chloride [Moles/Vol] 100 mmol/L Normal 98-108 [facility] Comment on above: Performed By: #### L 501.2300, L100.0100, L500.4050 ####[facility] [address] [place], [address] CO2 [Moles/Vol] 17.0 mmol/L Low 21.0-32.0 [facility] Comment on above: Performed By: #### L 501.2300, L100.0100, L500.4050 ####[facility] [address] [place], [address] Creatinine [Mass/Vol] 0.93 mg/dL Normal 0.70-1.20 [facility] Comment on above: Performed By: #### L 501.2300, L100.0100, L500.4050 ####[facility] [address] [place], [address] ECRCL 83.95 ml/min Normal 50-250 [facility] Comment on above: Performed By: #### L 501.2300, L100.0100, L500.4050 ####[facility] [address] [place], [address] GAP 11 Normal 5-15 [facility] Comment on above: Performed By: #### L 501.2300, L100.0100, L500.4050 ####[facility] [address] [place], [address] GFR/1.73 sq M.predicted among non-blacks MDRD (S/P/Bld) [Vol rate/Area] 92 mL/min/{1.73_m2} Normal >60 [facility] Comment on above: Result Comment: mL/m in/1.73m2 CKD-EPI Creatinine Equation (2020) Performed By: #### L 501.2300, L100.0100, L500.4050 ####[facility] [address] [place], [address] Globulin (S) [Mass/Vol] 2.7 g/dL Normal 2.2-4.2 [facility] Comment on above: Performed By: #### L 501.2300, L100.0100, L500.4050 ####[facility] [address] [place], [address] Glucose [Mass/Vol] 114 mg/dL High 70-[address] [facility] Comment on above: Performed By: #### L 501.2300, L100.0100, L500.4050 ####[facility] [address] [place], [address] Potassium [Moles/Vol] 3.2 mmol/L Low 3.3-5.1 [facility] Comment on above: Performed By: #### L 501.2300, L100.0100, L500.4050 ####[facility] [address] [place], [address] Sodium [Moles/Vol] 129 mmol/L Low 133-[address] [facility] Comment on above: Performed By: #### L 501.2300, L100.0100, L500.4050 ####[facility] [address] [place], [address] T PROT 5.7 g/dL Low 5.9-8.4 [facility] Comment on above: Performed By: #### L 501.2300, L100.0100, L500.4050 ####[facility] [address] [place], [address] Urea nitrogen [Mass/Vol] 14 mg/dL Normal 4-19 [facility] Comment on above: Performed By: #### L 501.2300, L100.0100, L500.4050 ####[facility] [address] [place], [address] Creatinine, Urine (random)on 01-21-2025 UR CREAT 37.80 mg/dL Low 39.00-259.00 [facility] Comment on above: Performed By: #### L 501.7400, L501.1200, L500.9400 ####[facility] [address] [place], [address] Foot min 3 Viewson 5 Foot min 3 Views Normal [facility] Haptoglobinon 01-21-2025 HAPTOGLOBIN 127 mg/dL Normal 32-363 [facility] Comment on above: Result Comment: Perf ormed at: [facility] [place], [place] [id number] Director: Harrison Villareal PhD, Phone: [phone] Performed By: #### L 3100.1850, K06002-0, L504.2610 ####[facility] [address] [place], [place], [address] L501.5101on 01-21-2025 GGTP 31 IU/L Normal 0-65 [facility] Comment on above: Result Comment: Perf ormed at: [facility] [id number] [place], [place] [id number] Director: Harrison Villareal PhD, Phone: [phone] Performed By: #### L 501.2300, L501.5101, L501.6901 ####[facility] [address] [place], [address] Osmolality urOrdered By: Ebony Lea on 01-21-2025 Osmolality (U) [Osmolality] 201 mOsm/KG >50 [facility] Comment on above: Normal Urine Referen ce Ranges Random: 50 - 1200 mOsm/kg H20 depending on fluid intake Random: >850 mOsm/kg after 12 hour fluid restriction 24 hour: ~300 - 900 mOsm/kg H2O Osmolality, Urineon 01-22-20 25 OSMOLALITY,UR 201 mOsm/KG Normal [facility] Comment on above: Result Comment: Norm al Urine Reference Ranges Random: 50 - 1200 mOsm/kg H20 depending on fluid intake Random: >850 mOsm/kg after 12 hour fluid restriction 24 hour: 300 - 900 mOsm/kg H2O Performed By: #### L 501.7400, L501.1200, L500.9400 ####[facility] [address] [place], [address] Ovalocyte detectionOrdered B y: Shorty Lea on 01-21-2025 Ovalocytes LM Ql (Bld) 1+ [facility] Phosphoruson 01-21-2025 Phosphate [Mass/Vol] 2.7 mg/dL Normal 2.7-4.5 [facility] Comment on above: Performed By: #### L 501.2300, L100.0100, L500.4050 ####[facility] [address] [place], [address] Random urine creatinine ed urement (mass/volume)Ordered By: Shorty Lea on 01-21-2025 Creatinine Unsp time (U) [Mass/Vol] 37.80 mg/dL Low 39.00-259.00 [facility] Serum or plasma uric acid me asurement (mass/volume)Ordered By: Shorty Lea on 01-21-2025 Urate [Mass/Vol] 5.5 mg/dL 3.5-7.2 [facility] Comment on above: The drugs N-Acetylcy steine and Metamizole may falsely depress this assay. Uric Acidon 01-21-2025 URIC 5.5 mg/dL Normal 3.5-7.2 [facility] Comment on above: Result Comment: The drugs N-Acetylcysteine and Metamizole may falselydepress this assay. Performed By: #### L 501.1400 ####[facility] [address] [place], [address] Urine Electrolytes- Randomon 01-21-2025 Chloride,URINE 24 mmol/L Normal Not Establ. [facility] Comment on above: Performed By: #### L 501.7400, L501.1200, L500.9400 ####[facility] [address] [place], [address] Sodium (U) [Moles/Vol] 35 mmol/L Normal Not Establ. [facility] Comment on above: Performed By: #### L 501.7400, L501.1200, L500.9400 ####[facility] [address] [place], [address] UR K 7.2 mmol/L Normal Not Establ. [facility] Comment on above: Performed By: #### L 501.7400, L501.1200, L500.9400 ####[facility] [address] [place], [address] Urine potassium measurement (moles/volume)Ordered By: Shorty Lea on 01-21-2025 Potassium (U) [Moles/Vol] 7.2 mmol/L Not Establ. [facility] Urine sodium measurement (mo les/volume)Ordered By: Shorty Lea on 01-21-2025 Sodium (U) [Moles/Vol] 35 mmol/L Not Establ. [facility] CBC-Complete Blood Cnt No Di ffon 01-20-2025 Erythrocyte distribution width (RBC) [Ratio] 17.9 % High 11.6-14.6 [facility] Comment on above: Order Comment: CRITI MODESTO VALUE CALLED TO [facility]01/20/25 0722 Evangelina Ayon.RESULTS READ BACK BY SAME. Performed By: #### L 501.9520, L500.4050, L100.0500, L503.0106 ####[facility] [address] [place], [address] Hematocrit (Bld) [Volume fraction] 19.8 % Low 40-54 [facility] Comment on above: Order Comment: CRITI MODESTO VALUE CALLED TO [facility]01/20/25 0722 Evangelina Ayon.RESULTS READ BACK BY SAME. Performed By: #### L 501.9520, L500.4050, L100.0500, L503.0106 ####[facility] [address] [place], [address] Hemoglobin (Bld) [Mass/Vol] 7.5 g/dL Low 13.0-16.5 [facility] Comment on above: Order Comment: CRITI MODESTO VALUE CALLED TO [facility]01/20/25 0722 Evangelina Ayon.RESULTS READ BACK BY SAME. Performed By: #### L 501.9520, L500.4050, L100.0500, L503.0106 ####[facility] [address] [place], [address] MCH (RBC) [Entitic mass] 32.9 pg High 27.0-32.0 [facility] Comment on above: Order Comment: CRITI MODESTO VALUE CALLED TO [facility]01/20/25721 Evangelina Ayon.RESULTS READ BACK BY SAME. Performed By: #### L 501.9520, L500.4050, L100.0500, L503.0106 ####[facility] [address] [place], [address] MCHC (RBC) [Mass/Vol] 37.9 g/dL High 32-36 [facility] Comment on above: Order Comment: CRITI MODESTO VALUE CALLED TO [facility]01/20/25721 Evangelina Ayon.RESULTS READ BACK BY SAME. Performed By: #### L 501.9520, L500.4050, L100.0500, L503.0106 ####[facility] [address] [place], [address] MCV (RBC) [Entitic vol] 86.8 fL Normal 80-94 [facility] Comment on above: Order Comment: CRITI MODESTO VALUE CALLED TO [facility]01/20/25 Evangelina Ayon.RESULTS READ BACK BY SAME. Performed By: #### L 501.9520, L500.4050, L100.0500, L503.0106 ####[facility] [address] [place], [address] Platelet mean volume (Bld) [Entitic vol] 10.5 fL Normal 6.2-12.0 [facility] Comment on above: Order Comment: CRITI MODESTO VALUE CALLED TO [facility]01/20/25721 Evangelina Ayon.RESULTS READ BACK BY SAME. Performed By: #### L 501.9520, L500.4050, L100.0500, L503.0106 ####[facility] [address] [place], [address] Platelets (Bld) [#/Vol] 32 10*3/uL Invalid Interpretation Code 150-450 [facility] Comment on above: Order Comment: CRITI MODESTO VALUE CALLED TO [facility]01/20/25721 Evangelina Ayon.RESULTS READ BACK BY SAME. Performed By: #### L 501.9520, L500.4050, L100.0500, L503.0106 ####[facility] [address] [place], [address] RBC (Bld) [#/Vol] 2.28 10*6/uL Low 4.6-6.2 [facility] Comment on above: Order Comment: CRITI MODESTO VALUE CALLED TO [facility]01/20/25721 Evangelina Ayon.RESULTS READ BACK BY SAME. Performed By: #### L 501.9520, L500.4050, L100.0500, L503.0106 ####[facility] [address] [place], [address] RDW SD 56.9 fl High 35.1-43.9 [facility] Comment on above: Order Comment: CRITI MODESTO VALUE CALLED TO [facility]01/20/25 Evangelina Ayon.RESULTS READ BACK BY SAME. Performed By: #### L 501.9520, L500.4050, L100.0500, L503.0106 ####[facility] [address] [place], [address] WBC (Bld) [#/Vol] 2.2 10*3/uL Low 4.4-11.[address] [facility] Comment on above: Order Comment: CRITI MODESTO VALUE CALLED TO [facility]01/20/2522 Evangelina Ayon.RESULTS READ BACK BY SAME. Performed By: #### L 501.9520, L500.4050, L100.0500, L503.0106 ####[facility] [address] [place], [address] Comprehensive Metabolic Prof [facility] 01-20-2025 Albumin [Mass/Vol] 3.1 g/dL Low 3.4-4.[address] [facility] Comment on above: Performed By: #### L 501.9520, L500.4050, L100.0500, L503.0106 ####[facility] [address] [place], [address] Albumin/Globulin [Mass ratio] 1.2 {ratio} Normal 0.9-2.4 [facility] Comment on above: Performed By: #### L 501.9520, L500.4050, L100.0500, L503.0106 ####[facility] [address] [place], [address] ALK PHOS 76 U/L Normal 40-129 [facility] Comment on above: Performed By: #### L 501.9520, L500.4050, L100.0500, L503.0106 ####[facility] [address] [place], [address] ALT [Catalytic activity/Vol] 16 U/L Normal <=46 [facility] Comment on above: Performed By: #### L 501.9520, L500.4050, L100.0500, L503.0106 ####[facility] [address] [place], [address] AST [Catalytic activity/Vol] 51 U/L High <=37 [facility] Comment on above: Performed By: #### L 501.9520, L500.4050, L100.0500, L503.0106 ####[facility] [address] [place], [address] Bilirubin [Mass/Vol] 1.36 mg/dL High 0.00-1.30 [facility] Comment on above: Performed By: #### L 501.9520, L500.4050, L100.0500, L503.0106 ####[facility] [address] [place], [address] BUN/CRE 16.4 RATIO Normal 10-20 [facility] Comment on above: Performed By: #### L 501.9520, L500.4050, L100.0500, L503.0106 ####[facility] [address] [place], [address] Calcium [Mass/Vol] 7.5 mg/dL Low 7.6-11.[address] [facility] Comment on above: Performed By: #### L 501.9520, L500.4050, L100.0500, L503.0106 ####[facility] [address] [place], [address] Chloride [Moles/Vol] 93 mmol/L Low 98-108 [facility] Comment on above: Performed By: #### L 501.9520, L500.4050, L100.0500, L503.0106 ####[facility] [address] [place], [address] CO2 [Moles/Vol] 16.2 mmol/L Low 21.0-32.0 [facility] Comment on above: Performed By: #### L 501.9520, L500.4050, L100.0500, L503.0106 ####[facility] [address] [place], [address] Creatinine [Mass/Vol] 0.92 mg/dL Normal 0.70-1.20 [facility] Comment on above: Performed By: #### L 501.9520, L500.4050, L100.0500, L503.0106 ####[facility] [address] [place], [address] ECRCL 84.86 ml/min Normal 50-250 [facility] Comment on above: Performed By: #### L 501.9520, L500.4050, L100.0500, L503.0106 ####[facility] [address] [place], [address] GAP 14 Normal 5-15 [facility] Comment on above: Performed By: #### L 501.9520, L500.4050, L100.0500, L503.0106 ####[facility] [address] [place], [address] GFR/1.73 sq M.predicted among non-blacks MDRD (S/P/Bld) [Vol rate/Area] 93 mL/min/{1.73_m2} Normal >60 [facility] Comment on above: Result Comment: mL/m in/1.73m2 CKD-EPI Creatinine Equation (2020) Performed By: #### L 501.9520, L500.4050, L100.0500, L503.0106 ####[facility] [address] [place], [address] Globulin (S) [Mass/Vol] 2.5 g/dL Normal 2.2-4.2 [facility] Comment on above: Performed By: #### L 501.9520, L500.4050, L100.0500, L503.0106 ####[facility] [address] [place], [address] Glucose [Mass/Vol] 153 mg/dL High 70-[address] [facility] Comment on above: Performed By: #### L 501.9520, L500.4050, L100.0500, L503.0106 ####[facility] [address] [place], [address] Potassium [Moles/Vol] 3.0 mmol/L Low 3.3-5.1 [facility] Comment on above: Performed By: #### L 501.9520, L500.4050, L100.0500, L503.0106 ####[facility] [address] [place], [address] Sodium [Moles/Vol] 124 mmol/L Low 133-[address] [facility] Comment on above: Performed By: #### L 501.9520, L500.4050, L100.0500, L503.0106 ####[facility] [address] [place], [address] T PROT 5.6 g/dL Low 5.9-8.4 [facility] Comment on above: Performed By: #### L 501.9520, L500.4050, L100.0500, L503.0106 ####[facility] [address] [place], [address] Urea nitrogen [Mass/Vol] 15 mg/dL Normal 4-19 [facility] Comment on above: Performed By: #### L 501.9520, L500.4050, L100.0500, L503.0106 ####[facility] [address] [place], [address] Folate [Mass/volume] in Seru m or PlasmaOrdered By: Shorty Lea on 01-20-2025 Folate [Mass/Vol] 3.23 ng/mL Low 4.60-34.80 [facility] Comment on above: Hemolysis, Results w ill be affected, Requires Recollection. Folates,Serum (Folic Acid)on 01-20-2025 FOLATES,SERUM 3.23 ng/mL Low 4.60-34.80 [facility] Comment on above: Result Comment: Hemo lysis, Results will be affected, Requires Recollection. Performed By: #### L 506.0200 ####[facility] [address] [place], [address] Magnesiumon 01-20-2025 Magnesium [Mass/Vol] 1.8 mg/dL Normal 1.5-2.2 [facility] Comment on above: Performed By: #### L 501.5200, L501.2300 ####[facility] [address] [place], [place], [address] Magnesium measurement (mass/ volume)Ordered By: Shorty Lea on 01-20-2025 Magnesium (Unsp spec) [Mass/Vol] 1.8 mg/dL 1.5-2.2 [facility] Phosphoruson 01-20-2025 Phosphate [Mass/Vol] 0.7 mg/dL Invalid Interpretation Code 2.7-4.5 [facility] Comment on above: Result Comment: Crit ical Result(s) Called at: 01/20/2025-14:36 by: Eric to Krysten Kauffman??Results read back by same. Performed By: #### L 501.5200, L501.2300 ####[facility] [address] [place], [place], [id number] TSH DL <= 0.005 mIU/L QnOrde red By: Shorty Lea on 01-20-2025 TSH Qn 2.000 uIU/mL 0.300-4.200 [facility] Thyroid Stim Hormone (TSH)on 01-20-2025 TSH 2.000 uIU/mL Normal 0.300-4.200 [facility] Comment on above: Performed By: #### L 501.9520, L500.4050, L100.0500, L503.0106 ####[facility] [address] [place], [address] Vitamin B12on 01-20-2025 Cobalamin (Vitamin B12) [Mass/Vol] 418 pg/mL Normal 180-914 [facility] Comment on above: Performed By: #### L 501.9520, L500.4050, L100.0500, L503.0106 ####[facility] [address] [place], [address] Vitamin B12 ser/plasOrdered By: Shorty Lea on 01-20-2025 Cobalamin (Vitamin B12) [Mass/Vol] 418 pg/mL 180-914 [facility] Activated partial thrombopla stin time (aPTT) in platelet poor plasma by coagulation aOrdered By: Milagro Sanders on 01-19-2025 aPTT Coag (PPP) [Time] 35.9 s 24.1-36.2 [facility] Alcohol, Blood (Medical)-Ser umon 01-19-2025 SERUM ETOH < 10.1 Normal <=10.0 [facility] Comment on above: Result Comment: This test is for medical purposes only. The legaldefinition of intoxication varies according to local law. Performed By: #### L 300.3900, L300.4310, L100.0100, L500.4050, L501.9100, L501.2450, L501.3620 ####[facility] [address] [place], [address] [id number] 01-19-2025 DIRECT JAIME NEG w/POLYSPECIFIC Normal NEGATIVE [facility] Comment on above: Performed By: #### L 3100.1850, Y33654-7, L504.2610 ####[facility] [address] [place], [address] BRCon 01-19-2025 RC Normal [facility] Comment on above: Result Comment: [id number] AP RC TRANSFUSED 01/19/25 [id number] AP RC TRANSFUSED 01/19/25 1020 Performed By: #### B RC, BTS, M100.7900 ####[facility] [address] [place], [address] Result Comment: [id number] AP RC TRANSFUSED 01/20/25 1419 Performed By: #### B RC ####[facility] [address] [place], [address] Basic Metabolic Profile (BMP )on 01-19-2025 BUN/CRE 15.8 RATIO Normal 10-20 [facility] Comment on above: Performed By: #### L 500.2500 ####[facility] [address] [place], [address] Calcium [Mass/Vol] 7.6 mg/dL Normal 7.6-11.[address] [facility] Comment on above: Performed By: #### L 500.2500 ####[facility] [address] [place], [address] Chloride [Moles/Vol] 89 mmol/L Low 98-108 [facility] Comment on above: Performed By: #### L 500.2500 ####[facility] [address] [place], [address] CO2 [Moles/Vol] 14.5 mmol/L Low 21.0-32.0 [facility] Comment on above: Performed By: #### L 500.2500 ####[facility] [address] [place], [address] Creatinine [Mass/Vol] 1.00 mg/dL Normal 0.70-1.20 [facility] Comment on above: Performed By: #### L 500.2500 ####[facility] [address] [place], [address] ECRCL 78.07 ml/min Normal 50-250 [facility] Comment on above: Performed By: #### L 500.2500 ####[facility] [address] [place], [address] GAP 19 High 5-15 [facility] Comment on above: Performed By: #### L 500.2500 ####[facility] [address] [place], [address] GFR/1.73 sq M.predicted among non-blacks MDRD (S/P/Bld) [Vol rate/Area] 85 mL/min/{1.73_m2} Normal >60 [facility] Comment on above: Result Comment: mL/m in/1.73m2 CKD-EPI Creatinine Equation (2020) Performed By: #### L 500.2500 ####[facility] [address] [place], [address] Glucose [Mass/Vol] 142 mg/dL High 70-[address] [facility] Comment on above: Performed By: #### L 500.2500 ####[facility] [address] [place], [address] Potassium [Moles/Vol] 3.1 mmol/L Low 3.3-5.1 [facility] Comment on above: Performed By: #### L 500.2500 ####[facility] [address] [place], [address] Sodium [Moles/Vol] 122 mmol/L Low 133-[address] [facility] Comment on above: Performed By: #### L 500.2500 ####[facility] [address] [place], [address] Urea nitrogen [Mass/Vol] 16 mg/dL Normal 4-19 [facility] Comment on above: Performed By: #### L 500.2500 ####[facility] [address] [place], [address] Beta-Hydroxbytyrateon 2024 BETA-HYDROXYBUT 3.0 mmol/L Normal 0.0-0.3 [facility] Comment on above: Performed By: #### L 501.2300, L501.5101, L501.6901 ####[facility] [address] [place], [address] Beta-hydroxybutyrateOrdered By: Shorty Lea on 01-19-2025 Beta hydroxybutyrate [Mass/Vol] 3.0 mmol/L 0.0-0.3 [facility] Bilirubin Test strip Ql (U)O rdered By: Milagro Sanders on 01-19-2025 Bilirubin Ql (U) Negative Negative [facility] Brain/Head without Contrasto n 01-19-2025 Brain/Head without Contrast Normal [facility] CBC W/Diff, Automatedon 05- SMEAR COMMENT COMMENT Normal [facility] Comment on above: Result Comment: LYMP HOPENIA.ANEMIA. Performed By: #### L 300.3900, L300.4310, L100.0100, L500.4050, L501.9100, L501.2450, L501.3620 ####[facility] [address] [place], [place], [phone](011) Anisocytosis Ql (Bld) 2+ Normal [facility] Comment on above: Performed By: #### L 300.3900, L300.4310, L100.0100, L500.4050, L501.9100, L501.2450, L501.3620 ####[facility] [address] [place], [address] PLT EST MKD DEC Normal ADEQ [facility] Comment on above: Performed By: #### L 300.3900, L300.4310, L100.0100, L500.4050, L501.9100, L501.2450, L501.3620 ####[facility] [address] [place], [place], [phone] CO2 (BldV) [Moles/Vol]Ordere d By: Milagro Sanders on 01-19-2025 CO2 [Moles/Vol] 17 mmol/L Low 23-33 [facility] CPK Total, Creatine Kinaseon 01-19-2025 CPK TOTAL 19 U/L Low 24-195 [facility] Comment on above: Performed By: #### L 300.3900, L300.4310, L100.0100, L500.4050, L501.9100, L501.2450, L501.3620 ####[facility] [address] [place], [place], [phone] Chest 1 View (Portable)on Chest 1 View (Portable) Normal [facility] Comprehensive Metabolic Prof ilon 01-19-2025 Albumin [Mass/Vol] 3.5 g/dL Normal 3.4-4.[address] [facility] Comment on above: Performed By: #### L 300.3900, L300.4310, L100.0100, L500.4050, L501.9100, L501.2450, L501.3620 ####[facility] [address] [place], [address] Albumin/Globulin [Mass ratio] 1.2 {ratio} Normal 0.9-2.4 [facility] Comment on above: Performed By: #### L 300.3900, L300.4310, L100.0100, L500.4050, L501.9100, L501.2450, L501.3620 ####[facility] [address] [place], [address] ALK PHOS 93 U/L Normal 40-129 [facility] Comment on above: Performed By: #### L 300.3900, L300.4310, L100.0100, L500.4050, L501.9100, L501.2450, L501.3620 ####[facility] [address] [place], [address] ALT [Catalytic activity/Vol] 21 U/L Normal <=46 [facility] Comment on above: Performed By: #### L 300.3900, L300.4310, L100.0100, L500.4050, L501.9100, L501.2450, L501.3620 ####[facility] [address] [place], [address] AST [Catalytic activity/Vol] 49 U/L High <=37 [facility] Comment on above: Performed By: #### L 300.3900, L300.4310, L100.0100, L500.4050, L501.9100, L501.2450, L501.3620 ####[facility] [address] [place], [address] Bilirubin [Mass/Vol] 0.61 mg/dL Normal 0.00-1.30 [facility] Comment on above: Performed By: #### L 300.3900, L300.4310, L100.0100, L500.4050, L501.9100, L501.2450, L501.3620 ####[facility] [address] [place], [address] BUN/CRE 14.4 RATIO Normal 10-20 [facility] Comment on above: Performed By: #### L 300.3900, L300.4310, L100.0100, L500.4050, L501.9100, L501.2450, L501.3620 ####[facility] [address] [place], [address] Calcium [Mass/Vol] 7.8 mg/dL Normal 7.6-11.[address] [facility] Comment on above: Performed By: #### L 300.3900, L300.4310, L100.0100, L500.4050, L501.9100, L501.2450, L501.3620 ####[facility] [address] [place], [address] Chloride [Moles/Vol] 85 mmol/L Low 98-108 [facility] Comment on above: Performed By: #### L 300.3900, L300.4310, L100.0100, L500.4050, L501.9100, L501.2450, L501.3620 ####[facility] [address] [place], [address] CO2 [Moles/Vol] 15.7 mmol/L Low 21.0-32.0 [facility] Comment on above: Performed By: #### L 300.3900, L300.4310, L100.0100, L500.4050, L501.9100, L501.2450, L501.3620 ####[facility] [address] [place], [address] Creatinine [Mass/Vol] 1.02 mg/dL Normal 0.70-1.20 [facility] Comment on above: Performed By: #### L 300.3900, L300.4310, L100.0100, L500.4050, L501.9100, L501.2450, L501.3620 ####[facility] [address] [place], [address] ECRCL 74.13 ml/min Normal 50-250 [facility] Comment on above: Performed By: #### L 300.3900, L300.4310, L100.0100, L500.4050, L501.9100, L501.2450, L501.3620 ####[facility] [address] [place], [address] GAP 20 High 5-15 [facility] Comment on above: Performed By: #### L 300.3900, L300.4310, L100.0100, L500.4050, L501.9100, L501.2450, L501.3620 ####[facility] [address] [place], [place], [phone]207) GFR/1.73 sq M.predicted among non-blacks MDRD (S/P/Bld) [Vol rate/Area] 83 mL/min/{1.73_m2} Normal >60 [facility] Comment on above: Result Comment: mL/m in/1.73m2 CKD-EPI Creatinine Equation (2020) Performed By: #### L 300.3900, L300.4310, L100.0100, L500.4050, L501.9100, L501.2450, L501.3620 ####[facility] [address] [place], [place], [phone]) Globulin (S) [Mass/Vol] 3.0 g/dL Normal 2.2-4.2 [facility] Comment on above: Performed By: #### L 300.3900, L300.4310, L100.0100, L500.4050, L501.9100, L501.2450, L501.3620 ####[facility] [address] [place], [address] Glucose [Mass/Vol] 118 mg/dL High 70-[address] [facility] Comment on above: Performed By: #### L 300.3900, L300.4310, L100.0100, L500.4050, L501.9100, L501.2450, L501.3620 ####[facility] [address] [place], [address] Potassium [Moles/Vol] 2.9 mmol/L Low 3.3-5.1 [facility] Comment on above: Performed By: #### L 300.3900, L300.4310, L100.0100, L500.4050, L501.9100, L501.2450, L501.3620 ####[facility] [address] [place], [address] Sodium [Moles/Vol] 121 mmol/L Low 133-[address] [facility] Comment on above: Performed By: #### L 300.3900, L300.4310, L100.0100, L500.4050, L501.9100, L501.2450, L501.3620 ####[facility] [address] [place], [address] T PROT 6.5 g/dL Normal 5.9-8.4 [facility] Comment on above: Performed By: #### L 300.3900, L300.4310, L100.0100, L500.4050, L501.9100, L501.2450, L501.3620 ####[facility] [address] [place], [address] Urea nitrogen [Mass/Vol] 15 mg/dL Normal 4-19 [facility] Comment on above: Performed By: #### L 300.3900, L300.4310, L100.0100, L500.4050, L501.9100, L501.2450, L501.3620 ####[facility] [address] [place], [address] Emergency Department Summary on 01-19-2025 Emergency Department Summary Normal [facility] Gamma glutamyl transferase ( GGT) measurementOrdered By: Shorty Lea on 01-19-2025 Amylase [Catalytic activity/Vol] 31 U/L 0-65 [facility] Comment on above: Performed at: [address] [id number] Director: Harrison Villareal PhD, Phone: [phone] H AND P Exam - Hospitaliston 01-19-2025 H&P Exam - Hospitalist Normal [facility] HH, Hemoglobin AND Hematocri ton 01-19-2025 Hematocrit (Bld) [Volume fraction] 22.4 % Low 40-54 [facility] Comment on above: Performed By: #### L 100.0600 ####[facility] [address] [facility] [address] [place], [place], [phone] Hemoglobin (Bld) [Mass/Vol] 8.3 g/dL Low 13.0-16.5 [facility] Comment on above: Performed By: #### L 100.0600 ####[facility] [address] [place], [address] Immature platelet percentage Ordered By: Shorty Lea on 01-19-2025 Platelets reticulated/100 platelets Auto (Bld) 4.7 % 1.0-7.9 [facility] Comment on above: Low PLT + [...] INR Coag (Bld) [Relative time] 1.0 {INR} [facility] Ketones Test strip Ql (U)Ord ered By: Milagro Sanders on 01-19-2025 Ketones Ql (U) 50 mg/dl High Negative [facility] LDHon 01-19-2025 LDH 191 U/L Normal 87-241 [facility] Comment on above: Performed By: #### L 3100.1850, L47744-8, L504.2610 ####[facility] [address] [place], [place], [phone] Lactate dehydrogenase (LDH) measurementOrdered By: Shorty Lea on 01-19-2025 LDH [Catalytic activity/Vol] 191 U/L 87-241 [facility] Lipaseon 01-19-2025 Lipase [Catalytic activity/Vol] 36 U/L Normal 13-75 [facility] Comment on above: Result Comment: Sonny lubin note:LIPASE revised reference range effective 22.New Lipase methodology. Expected to produce lower valuesthan the previous assay method.NEW Reference Range: 13 - 75 U/L Performed By: #### L 300.3900, L300.4310, L100.0100, L500.4050, L501.9100, L501.2450, L501.3620 ####[facility] [address] [place], [place], [phone] Lipase measurementOrdered By : Milagro Sanders on 01-19-2025 Lipase [Catalytic activity/Vol] 36 U/L 13-75 [facility] Comment on above: Please note:LIPASE r evised reference range effective 22. New Lipase methodology. Expected to produce lower values than the previous assay method. NEW Reference Range: 13 - 75 U/L Magnesiumon 01-19-2025 Magnesium [Mass/Vol] 1.0 mg/dL Low 1.5-2.2 [facility] Comment on above: Performed By: #### L 501.5200 ####[facility] [address] [place], [place], [phone] Microscopic analysis of urin e for red blood cells (RBC)Ordered By: Milagro Sanders on 01-19-2025 Microscopic analysis of urine for red blood cells (RBC) 0 SEEN /hpf 0-5 [facility] Mucus LM Ql (Urine sed)Order ed By: Milagro Sanders on 01-19-2025 Mucus Ql (Urine sed) 0 SEEN /hpf [facility] Nitrite Test strip Ql (U)Ord ered By: Milagro Sanders on 01-19-2025 Nitrite Ql (U) Negative Negative [facility] No Panel InformationOrdered By: Milagro Sanders on 01-19-2025 Blood Gas Sample Site Not entered [facility] Blood Gas Specimen Type [facility] Oxygen Delivery Device Not entered [facility] Partial Thromboplast Timeon 01-19-2025 aPTT Coag (Bld) [Time] 35.9 s Normal 24.1-36.2 [facility] Comment on above: Performed By: #### L 300.3900, L300.4310, L100.0100, L500.4050, L501.9100, L501.2450, L501.3620 ####[facility] [address] [place], [place], [phone] Pelvis 1 or 2 Viewson 2024 Pelvis 1 or 2 Views Normal [facility] Phosphoruson 01-19-2025 Phosphate [Mass/Vol] 1.5 mg/dL Low 2.7-4.5 [facility] Comment on above: Performed By: #### L 501.2300, L501.5101, L501.6901 ####[facility] [address] [place], [place], [phone] Protein Test strip Ql (U)Ord ered By: Milagro Sanders on 01-19-2025 Protein Ql (U) 30 mg/dl High Negative [facility] Prothrombin Time w/INRon INR Coag (PPP) [Relative time] 1.0 {INR} Normal [facility] Comment on above: Performed By: #### L 300.3900, L300.4310, L100.0100, L500.4050, L501.9100, L501.2450, L501.3620 ####[facility] [address] [place], [address] PT Coag (PPP) [Time] 13.8 s Normal 11.7-14.9 [facility] Comment on above: Performed By: #### L 300.3900, L300.4310, L100.0100, L500.4050, L501.9100, L501.2450, L501.3620 ####[facility] [address] [place], [place], [phone] Prothrombin timeOrdered By: Milagro Sanders on 01-19-2025 PT Coag (PPP) [Time] 13.8 s 11.7-14.9 [facility] Retic Panelon 01-19-2025 IM RET FRACTION 6.60 Normal 3.00-15.90 [facility] Comment on above: Performed By: #### L 100.9950 ####[facility] [address] [place], [address] IPF 4.7 Normal 1.0-7.9 [facility] Comment on above: Result Comment: Low PLT + Low IPF suggest a bone marrow production disorderLow PLT + high IPF suggests peripheral destruction(e.g.ITP, TTP, HIT, DIC, autoimmune) or bone marrow recoveryTrending of serial IPF measurements is recommended whenevaluating for bone marrow responesValue above normal range indicates an increase in RBCcellular response from bone marrow. Performed By: #### L 100.9950 ####[facility] [address] [place], [place], [id number] RET-HE 35.9 pg High 30-35 [facility] Comment on above: Performed By: #### L 100.9950 ####[facility] [address] [place], [address] Retic Count 0.26 Low 0.5-1.5 [facility] Comment on above: Performed By: #### L 100.9950 ####[facility] [address] [place], [address] Reticulocyte hemoglobin equi valent (RET-He) measurementOrdered By: Shorty Lea on 01-19-2025 Hemoglobin (Reticulocytes) [Entitic mass] 35.9 pg High 30-35 [facility] Reticulocytes Auto (Bld) [#/ Vol]Ordered By: Shorty Lea on 01-19-2025 Reticulocytes/100 RBC (Bld) 0.26 % Low 0.5-1.5 [facility] Serum or plasma creatine kin ase activityOrdered By: Milagro Sanders on 01-19-2025 CK [Catalytic activity/Vol] 19 U/L Low 24-195 [facility] Serum or plasma ethanol ed urement (mass/volume)Ordered By: Milagro Sanders on 01-19-2025 Ethanol [Mass/Vol] mg/dL <10.[address] [facility] Comment on above: This test is for med ical purposes only. The legal definition of intoxication varies according to local law. Squamous epithelial cells de tection in urine sediment by light microscopyOrdered By: Milagro Sanders on 01-19-2025 Epithelial cells.squamous LM Ql (Urine sed) 0-5 SEEN /hpf 0-5 [facility] Stool Occult Blood iFOBon STOB Normal [facility] Comment on above: Performed By: #### B RC, BTS, M100.7900 ####[facility] [address] [place], [place], [id number] Stool gastrointestinal hemog lobin detection by immunologic methodOrdered By: Milagro Sanders on 01-19-2025 Lower GI hemoglobin IA Ql (Stl) [facility] Type AND Screenon 01-19-2025 ABO and Rh group Nom (Bld) Blood group A Rh(D) positive Normal [facility] Comment on above: Order Comment: CMV N EG? NNumber of units to transfuse: 2Is pt's Hgb is = to 7.0 mg/dl or Hct </= 21%? YReason for Ordering Blood: ChronicAre the blood/blood products to be transfused? YIs the patient having/had surgery? NWhen ReadyNY Performed By: #### B RC, BTS, M100.7900 ####[facility] [address] [place], [address] Urinalysis, Completeon 01-19 EPI,SQUAMOUS 0-5 SEEN Normal 0-5 [facility] Comment on above: Order Comment: CLEAN CATCH Performed By: #### L 400.0001 ####[facility] [address] [place], [address] BACTERIA 0 SEEN Normal None Seen [facility] Comment on above: Order Comment: CLEAN CATCH Performed By: #### L 400.0001 ####[facility] [address] [place], [address] Mucus Ql (Urine sed) 0 SEEN Normal [facility] Comment on above: Order Comment: CLEAN CATCH Performed By: #### L 400.0001 ####[facility] [address] [place], [address] RBC 0 SEEN Normal 0-5 [facility] Comment on above: Order Comment: CLEAN CATCH Performed By: #### L 400.0001 ####[facility] [address] [place], [address] WBC 0 SEEN Normal 0-5 [facility] Comment on above: Order Comment: CLEAN CATCH Performed By: #### L 400.0001 ####[facility] [address] [place], [address] Urine clarityOrdered By: Brisa Sanders on 01-19-2025 Clarity (U) Clear Clear [facility] Urine color determinationOrd ered By: Milagro Sanders on 01-19-2025 Color (U) Yellow Yellow [facility] Urine glucose detectionOrder ed By: Milagro Sanders on 01-19-2025 Glucose Ql (U) Normal mg/dl Normal [facility] Urine leukocyte esterase det ection by dipstickOrdered By: Milagro Sanders on 01-19-2025 Leukocyte esterase Test strip Ql (U) Negative Negative [facility] Urine pHOrdered By: Milagro juárez on 01-19-2025 pH (U) 7.0 [pH] 5.0 - 8.0 [facility] Urine sediment bacteria coun t by microscopy (number/high power field)Ordered By: Milagro Sanders on 01-19-2025 Bacteria LM.HPF (Urine sed) [#/Area] 0 /[HPF] None Seen [facility] Urine specific gravity measu rementOrdered By: Milagro Sanders on 01-19-2025 Specific gravity (U) [Rel density] 1.005 1.002-1.030 [facility] Urine urobilinogen measureme ntOrdered By: Milagro Sanders on 01-19-2025 Urobilinogen Ql (U) 1 mg/dl High Normal [facility] Venous Blood Gason Blood Gas Type SAGRARIO Normal [facility] Comment on above: Performed By: #### L 9000.0810 ####[facility] [address] [place], [place], [id number] CO2 [Moles/Vol] 17 mmol/L Low 23-33 [facility] Comment on above: Performed By: #### L 9000.0810 ####[facility] [address] [place], [address] HCO3 (Bld) [Moles/Vol] 16 mmol/L Low 22-26 [facility] Comment on above: Performed By: #### L 9000.0810 ####[facility] [address] [place], [place], [id number] O2 Delivery Dev Not entered Normal [facility] Comment on above: Performed By: #### L 9000.0810 ####[facility] [address] [place], [address] SITE Not entered Normal [facility] Comment on above: Performed By: #### L 9000.0810 ####[facility] [address] [place], [address] VBG BE -10 mmol/L Low -1.0-3.5 [facility] Comment on above: Performed By: #### L 9000.0810 ####[facility] [address] [place], [address] VBG pCO2 26.8 mmHg Low 41-51 [facility] Comment on above: Performed By: #### L 9000.0810 ####[facility] [address] [place], [address] VBG pH 7.38 Normal 7.32-7.42 [facility] Comment on above: Performed By: #### L 9000.0810 ####[facility] [address] [place], [address] VBG PO2 81 mmHg High 25-40 [facility] Comment on above: Performed By: #### L 9000.0810 ####[facility] [address] [place], [address] VBG SO2 96 High 50-70 [facility] Comment on above: Performed By: #### L 9000.0810 ####[facility] [address] [place], [address] Venous blood base excess poly surementOrdered By: Milagro Sanders on 01-19-2025 Base excess Calc (BldV) [Moles/Vol] -10 mmol/L Low -1.0-3.5 [facility] Venous blood bicarbonate poly surementOrdered By: Milagro Sanders on 01-19-2025 HCO3 (Bld) [Moles/Vol] 16 mmol/L Low 22-26 [facility] Venous blood oxygen saturati on measurementOrdered By: Milagro Sanders on 01-19-2025 Oxygen saturation in Blood 96 % High 50-70 [facility] Venous blood pH measurementO rdered By: Milagro Sanders on 01-19-2025 pH (BldV) 7.38 [pH] 7.32-7.42 [facility] Venous blood partial pressur e of carbon dioxide measurementOrdered By: Milagro Sanders on 01-19-2025 CO2 (BldV) [Partial pressure] 26.8 mm[Hg] Low 41-51 [facility] Venous blood partial pressur e of oxygen measurementOrdered By: Mliagro Sanders on 01-19-2025 Oxygen (BldV) [Partial pressure] 81 mm[Hg] High 25-40 [facility] White blood cell countOrdere d By: Milagro Sanders on 01-19-2025 White blood cell count 0 SEEN /hpf 0-5 [facility] OT Functional Capacity Evalo n 10-05-2024 OT Functional Capacity Eval Normal [facility] OT Functional Capacity Eval Normal [facility] CBC W/Diff, Automatedon 12- Absolute Lymph 1.10 X10 3/uL Normal 0.83-4.51 [facility] Comment on above: Performed By: #### L 500.4050, L501.9520, L100.0100, L500.4100 ####[facility] [address] [place], [address] Absolute Neut 3.1 X10 3/uL Normal 2.0-7.7 [facility] Comment on above: Performed By: #### L 500.4050, L501.9520, L100.0100, L500.4100 ####[facility] [address] [place], [address] Basophils/100 WBC (Bld) 0.6 % Normal 0-1 [facility] Comment on above: Performed By: #### L 500.4050, L501.9520, L100.0100, L500.4100 ####[facility] [address] [place], [address] Eosinophils/100 WBC (Bld) 4.8 % Normal 0-5 [facility] Comment on above: Performed By: #### L 500.4050, L501.9520, L100.0100, L500.4100 ####[facility] [address] [place], [address] Erythrocyte distribution width (RBC) [Ratio] 13.2 % Normal 11.6-14.6 [facility] Comment on above: Performed By: #### L 500.4050, L501.9520, L100.0100, L500.4100 ####[facility] [address] [place], [address] Hematocrit (Bld) [Volume fraction] 26.6 % Low 40-54 [facility] Comment on above: Performed By: #### L 500.4050, L501.9520, L100.0100, L500.4100 ####[facility] [address] [place], [address] Hemoglobin (Bld) [Mass/Vol] 9.5 g/dL Low 13.0-16.5 [facility] Comment on above: Performed By: #### L 500.4050, L501.9520, L100.0100, L500.4100 ####[facility] [address] [place], [address] IG% 0.600 Normal 0.0-0.9 [facility] Comment on above: Result Comment: IG% - Immature Granulocytes (promyelocytes, myelocytes andmetamyelocytes) > 1% indicates that a LEFT SHIFT is Present. Performed By: #### L 500.4050, L501.9520, L100.0100, L500.4100 ####[facility] [address] [place], [address] Lymphocytes/100 WBC (Bld) 22.2 % Normal 19-41 [facility] Comment on above: Performed By: #### L 500.4050, L501.9520, L100.0100, L500.4100 ####[facility] [address] [place], [address] MCH (RBC) [Entitic mass] 34.7 pg High 27.0-32.0 [facility] Comment on above: Performed By: #### L 500.4050, L501.9520, L100.0100, L500.4100 ####[facility] [address] [place], [address] MCHC (RBC) [Mass/Vol] 35.7 g/dL Normal 32-36 [facility] Comment on above: Performed By: #### L 500.4050, L501.9520, L100.0100, L500.4100 ####[facility] [address] [place], [address] MCV (RBC) [Entitic vol] 97.1 fL High 80-94 [facility] Comment on above: Performed By: #### L 500.4050, L501.9520, L100.0100, L500.4100 ####[facility] [address] [place], [address] Monocytes/100 WBC (Bld) 9.3 % Normal 0-10 [facility] Comment on above: Performed By: #### L 500.4050, L501.9520, L100.0100, L500.4100 ####[facility] [address] [place], [address] Neutrophils/100 WBC (Bld) 62.5 % Normal 47-70 [facility] Comment on above: Performed By: #### L 500.4050, L501.9520, L100.0100, L500.4100 ####[facility] [address] [place], [address] Nucleated RBC (Bld) [#/Vol] 0 10*3/uL Normal 0-5 [facility] Comment on above: Performed By: #### L 500.4050, L501.9520, L100.0100, L500.4100 ####[facility] [address] [place], [address] Platelet mean volume (Bld) [Entitic vol] 9.1 fL Normal 6.2-12.0 [facility] Comment on above: Performed By: #### L 500.4050, L501.9520, L100.0100, L500.4100 ####[facility] [address] [place], [address] Platelets (Bld) [#/Vol] 143 10*3/uL Low 150-450 [facility] Comment on above: Performed By: #### L 500.4050, L501.9520, L100.0100, L500.4100 ####[facility] [address] [place], [address] RBC (Bld) [#/Vol] 2.74 10*6/uL Low 4.6-6.2 [facility] Comment on above: Performed By: #### L 500.4050, L501.9520, L100.0100, L500.4100 ####[facility] [address] [place], [address] RDW SD 46.3 fl High 35.1-43.9 [facility] Comment on above: Performed By: #### L 500.4050, L501.9520, L100.0100, L500.4100 ####[facility] [address] [place], [address] WBC (Bld) [#/Vol] 5.0 10*3/uL Normal 4.4-11.[address] [facility] Comment on above: Performed By: #### L 500.4050, L501.9520, L100.0100, L500.4100 ####[facility] [address] [place], [address] Comprehensive Metabolic [facility] ilon 08-30-2024 Albumin [Mass/Vol] 3.8 g/dL Normal 3.2-5.[address] [facility] Comment on above: Performed By: #### L 500.4050, L501.9520, L100.0100, L500.4100 ####[facility] [address] [place], [address] Albumin/Globulin [Mass ratio] 1.1 {ratio} Normal 0.9-2.4 [facility] Comment on above: Performed By: #### L 500.4050, L501.9520, L100.0100, L500.4100 ####[facility] [address] [place], [address] ALK P 84 U/L Normal 45-117 [facility] Comment on above: Performed By: #### L 500.4050, L501.9520, L100.0100, L500.4100 ####[facility] [address] [place], [address] ALT [Catalytic activity/Vol] 26 U/L Normal 16-61 [facility] Comment on above: Performed By: #### L 500.4050, L501.9520, L100.0100, L500.4100 ####[facility] [address] [place], [address] AST [Catalytic activity/Vol] 25 U/L Normal 15-37 [facility] Comment on above: Performed By: #### L 500.4050, L501.9520, L100.0100, L500.4100 ####[facility] [address] [place], [address] Bilirubin [Mass/Vol] 0.30 mg/dL Normal 0.20-1.00 [facility] Comment on above: Result Comment: For patients on eltrombopag therapy, use of Dimension Boomer TBIL is not recommended. Performed By: #### L 500.4050, L501.9520, L100.0100, L500.4100 ####[facility] [address] [place], [address] BUN/CRE 10.8 RATIO Normal 10-20 [facility] Comment on above: Performed By: #### L 500.4050, L501.9520, L100.0100, L500.4100 ####[facility] [address] [place], [address] CA,Total 8.4 mg/dL Low 8.5-10.1 [facility] Comment on above: Performed By: #### L 500.4050, L501.9520, L100.0100, L500.4100 ####[facility] [address] [place], [address] Chloride [Moles/Vol] 94 mmol/L Low 98-107 [facility] Comment on above: Performed By: #### L 500.4050, L501.9520, L100.0100, L500.4100 ####[facility] [address] [place], [address] CO2 [Moles/Vol] 21.0 mmol/L Normal 21.0-32.0 [facility] Comment on above: Performed By: #### L 500.4050, L501.9520, L100.0100, L500.4100 ####[facility] [address] [place], [address] Creatinine [Mass/Vol] 1.02 mg/dL Normal 0.70-1.30 [facility] Comment on above: Result Comment: The validity of the calculated GFR GFRAA in patients over70 years has not been determined. Clinical correlation isessential. Performed By: #### L 500.4050, L501.9520, L100.0100, L500.4100 ####[facility] [address] [place], [address] EST GFR - AA 95 mL/min Normal >60 [facility] Comment on above: Result Comment: Afri can Citizen [place] GFR Calc Performed By: #### L 500.4050, L501.9520, L100.0100, L500.4100 ####[facility] [address] [place], [address] GAP 11 Normal 5-15 [facility] Comment on above: Performed By: #### L 500.4050, L501.9520, L100.0100, L500.4100 ####[facility] [address] [place], [address] GFR/1.73 sq M.predicted among non-blacks MDRD (S/P/Bld) [Vol rate/Area] 78 mL/min/{1.73_m2} Normal >60 [facility] Comment on above: Result Comment: Non- GFR Calc Performed By: #### L 500.4050, L501.9520, L100.0100, L500.4100 ####[facility] [address] [place], [address] Globulin (S) [Mass/Vol] 3.4 g/dL Normal 2.2-4.2 [facility] Comment on above: Performed By: #### L 500.4050, L501.9520, L100.0100, L500.4100 ####[facility] [address] [place], [address] Glucose [Mass/Vol] 96 mg/dL Normal 74-[address] [facility] Comment on above: Performed By: #### L 500.4050, L501.9520, L100.0100, L500.4100 ####[facility] [address] [place], [address] Potassium [Moles/Vol] 4.1 mmol/L Normal 3.5-5.1 [facility] Comment on above: Performed By: #### L 500.4050, L501.9520, L100.0100, L500.4100 ####[facility] [address] [place], [address] Sodium [Moles/Vol] 126 mmol/L Low 136-[address] [facility] Comment on above: Performed By: #### L 500.4050, L501.9520, L100.0100, L500.4100 ####[facility] [address] [place], [address] T PROT 7.2 g/dL Normal 6.4-8.2 [facility] Comment on above: Performed By: #### L 500.4050, L501.9520, L100.0100, L500.4100 ####[facility] [address] [place], [address] Urea nitrogen [Mass/Vol] 11 mg/dL Normal 7-18 [facility] Comment on above: Performed By: #### L 500.4050, L501.9520, L100.0100, L500.4100 ####[facility] [address] [place], [address] Lipid Profileon 08-30-2024 Cholesterol [Mass/Vol] 143 mg/dL Normal [facility] Comment on above: Result Comment: <200 mg/dL Desirable 200-240 mg/dL Borderline >240 mg/dL High Risk Performed By: #### L 500.4050, L501.9520, L100.0100, L500.4100 ####[facility] [address] [place], [address] Cholesterol in HDL [Mass/Vol] 106 mg/dL Normal [facility] Comment on above: Result Comment: The drugs N-Acetylcysteine and Metamizole may falselydepress this assay. Reference Range HDL <40 mg/dL Low HDL Cholesterol HDL >or= 60 mg/dL High HDL Cholesterol Performed By: #### L 500.4050, L501.9520, L100.0100, L500.4100 ####[facility] [address] [place], [address] Cholesterol in LDL [Mass/Vol] 25 mg/dL Normal 0-130 [facility] Comment on above: Performed By: #### L 500.4050, L501.9520, L100.0100, L500.4100 ####[facility] [address] [place], [address] Cholesterol in VLDL [Mass/Vol] 12 mg/dL Normal 5-40 [facility] Comment on above: Performed By: #### L 500.4050, L501.9520, L100.0100, L500.4100 ####[facility] [address] [place], [address] Triglyceride [Mass/Vol] 59 mg/dL Normal [facility] Comment on above: Result Comment: The drugs N-Acetylcysteine and Metamizole may falselydepress this assay.Serum Triglycerides Reference Interval Normal <150 mg/dL Borderline high 150 - 199 mg/dL High 200 - 499 mg/dL Very High > or = 500 mg/dL Performed By: #### L 500.4050, L501.9520, L100.0100, L500.4100 ####[facility] [address] [place], [address] Thyroid Stim Hormone (TSH)on 08-30-2024 TSH 2.680 uIU/mL Normal 0.358-3.740 [facility] Comment on above: Performed By: #### L 500.4050, L501.9520, L100.0100, L500.4100 ####[facility] [address] [place], [address] CBC W/Diff, Automatedon 04-15-2023 Absolute Lymph 0.98 X10 3/uL Normal 0.83-4.51 [facility] Comment on above: Performed By: #### L 100.0100 ####[facility] [address] [place], [address] Absolute Neut 2.5 X10 3/uL Normal 2.0-7.7 [facility] Comment on above: Performed By: #### L 100.0100 ####[facility] [address] [place], [address] Basophils/100 WBC (Bld) 0.5 % Normal 0-1 [facility] Comment on above: Performed By: #### L 100.0100 ####[facility] [address] [place], [address] Eosinophils/100 WBC (Bld) 5.3 % High 0-5 [facility] Comment on above: Performed By: #### L 100.0100 ####[facility] [address] [place], [address] Erythrocyte distribution width (RBC) [Ratio] 16.2 % High 11.6-14.6 [facility] Comment on above: Performed By: #### L 100.0100 ####[facility] [address] [place], [address] Hematocrit (Bld) [Volume fraction] 23.3 % Low 40-54 [facility] Comment on above: Performed By: #### L 100.0100 ####[facility] [address] [place], [address] Hemoglobin (Bld) [Mass/Vol] 7.8 g/dL Low 13.0-16.5 [facility] Comment on above: Performed By: #### L 100.0100 ####[facility] [address] [place], [address] IG% 1.000 High 0.0-0.9 [facility] Comment on above: Result Comment: IG% - Immature Granulocytes (promyelocytes, myelocytes andmetamyelocytes) > 1% indicates that a LEFT SHIFT is Present. Performed By: #### L 100.0100 ####[facility] [address] [place], [address] Lymphocytes/100 WBC (Bld) 23.7 % Normal 19-41 [facility] Comment on above: Performed By: #### L 100.0100 ####[facility] [address] [place], [address] MCH (RBC) [Entitic mass] 30.5 pg Normal 27.0-32.0 [facility] Comment on above: Performed By: #### L 100.0100 ####[facility] [address] [place], [address] MCHC (RBC) [Mass/Vol] 33.5 g/dL Normal 32-36 [facility] Comment on above: Performed By: #### L 100.0100 ####[facility] [address] [place], [address] MCV (RBC) [Entitic vol] 91.0 fL Normal 80-94 [facility] Comment on above: Performed By: #### L 100.0100 ####[facility] [address] [place], [address] Monocytes/100 WBC (Bld) 8.2 % Normal 0-10 [facility] Comment on above: Performed By: #### L 100.0100 ####[facility] [address] [place], [address] Neutrophils/100 WBC (Bld) 61.3 % Normal 47-70 [facility] Comment on above: Performed By: #### L 100.0100 ####[facility] [address] [place], [address] Nucleated RBC (Bld) [#/Vol] 0 10*3/uL Normal 0-5 [facility] Comment on above: Performed By: #### L 100.0100 ####[facility] [address] [place], [address] Platelet mean volume (Bld) [Entitic vol] 8.9 fL Normal 6.2-12.0 [facility] Comment on above: Performed By: #### L 100.0100 ####[facility] [address] [place], [address] Platelets (Bld) [#/Vol] 156 10*3/uL Normal 150-450 [facility] Comment on above: Performed By: #### L 100.0100 ####[facility] [address] [place], [address] RBC (Bld) [#/Vol] 2.56 10*6/uL Low 4.6-6.2 [facility] Comment on above: Performed By: #### L 100.0100 ####[facility] [address] [place], [address] RDW SD 52.7 fl High 35.1-43.9 [facility] Comment on above: Performed By: #### L 100.0100 ####[facility] [address] [place], [address] WBC (Bld) [#/Vol] 4.1 10*3/uL Low 4.4-11.[address] [facility] Comment on above: Performed By: #### L 100.0100 ####[facility] [address] [place], [address] Celiac AB,Comprehensiveon ANTIGLIADIN IGA 45 units Abnormal 0-19 [facility] Comment on above: Result Comment: Nega tive 0 - 19 Weak Positive 20 - 30 Moderate to Strong Positive >30 Performed By: #### L 504.2610, L3100.1850, L3100.3425, L3410.2350, L500.3400 ####[facility] [address] [place], [place], [id number] ANTIGLIADIN IGG 2 units Normal 0-19 [facility] Comment on above: Result Comment: Nega tive 0 - 19 Weak Positive 20 - 30 Moderate to Strong Positive >30 Performed By: #### L 504.2610, L3100.1850, L3100.3425, L3410.2350, L500.3400 ####[facility] [address] [place], [place], [id number] ENDOMYSIAL IGA Negative Normal Negative [facility] Comment on above: Performed By: #### L 504.2610, L3100.1850, L3100.3425, L3410.2350, L500.3400 ####[facility] [address] [place], [place], [address] tTG IGA <2 Normal 0-3 [facility] Comment on above: Result Comment: Nega tive 0 - 3 Weak Positive 4 - 10 Positive >10 Tissue Transglutaminase (tTG) has been identified as the endomysial antigen. Studies have demonstr- ated that endomysial IgA antibodies have over 99% specificity for gluten sensitive enteropathy. Performed By: #### L 504.2610, L3100.1850, L3100.3425, L3410.2350, L500.3400 ####[facility] [address] [place], [place], [id number] tTG IGG 3 U/mL Normal 0-5 [facility] Comment on above: Result Comment: Nega tive 0 - 5 Weak Positive 6 - 9 Positive >9 Performed By: #### L 504.2610, L3100.1850, L3100.3425, L3410.2350, L500.3400 ####[facility] [address] [place], [address] Haptoglobinon 04-27-2024 HAPTOGLOBIN 157 mg/dL Normal 32-363 [facility] Comment on above: Result Comment: Perf ormed at: [facility] [address] [id number] Director: Harrison Villareal PhD, Phone: [phone] Performed By: #### L 504.2610, L3100.1850, L3100.3425, L3410.2350, L500.3400 ####[facility] [address] [place], [address] ELY + Protein Elect, Serumon 04-27-2024 Albumin [Mass/Vol] 2.9 g/dL Normal 2.9-4.[address] [facility] Comment on above: Performed By: #### L 504.2610, L3100.1850, L3100.3425, L3410.2350, L500.3400 ####[facility] [address] [place], [address] Albumin/Globulin [Mass ratio] 1.2 {ratio} Normal 0.7-1.7 [facility] Comment on above: Performed By: #### L 504.2610, L3100.1850, L3100.3425, L3410.2350, L500.3400 ####[facility] [address] [place], [address] ZGSJD-5-VQKQ 0.3 g/dL Normal 0.0-0.4 [facility] Comment on above: Performed By: #### L 504.2610, L3100.1850, L3100.3425, L3410.2350, L500.3400 ####[facility] [address] [place], [address] DHUIN-7-DYEG 0.7 g/dL Normal 0.4-1.0 [facility] Comment on above: Performed By: #### L 504.2610, L3100.1850, L3100.3425, L3410.2350, L500.3400 ####[facility] [address] [place], [address] BETA GLOBULIN 0.7 g/dL Normal 0.7-1.3 [facility] Comment on above: Performed By: #### L 504.2610, L3100.1850, L3100.3425, L3410.2350, L500.3400 ####[facility] [address] [place], [address] GAMMA GLOBULIN 1.0 g/dL Normal 0.4-1.8 [facility] Comment on above: Performed By: #### L 504.2610, L3100.1850, L3100.3425, L3410.2350, L500.3400 ####[facility] [address] [place], [address] Globulin (S) [Mass/Vol] 2.6 g/dL Normal 2.2-3.9 [facility] Comment on above: Performed By: #### L 504.2610, L3100.1850, L3100.3425, L3410.2350, L500.3400 ####[facility] [address] [place], [address] ELY RESULT,S Comment Normal . [facility] Comment on above: Result Comment: No m onoclonality detected. Performed By: #### L 504.2610, L3100.1850, L3100.3425, L3410.2350, L500.3400 ####[facility] [address] [place], [address] IMMUNOGLOB A QN 295 mg/dL Normal 61-437 [facility] Comment on above: Performed By: #### L 504.2610, L3100.1850, L3100.3425, L3410.2350, L500.3400 ####[facility] [address] [place], [address] IMMUNOGLOB G QN 1111 mg/dL Normal 603-1613 [facility] Comment on above: Performed By: #### L 504.2610, L3100.1850, L3100.3425, L3410.2350, L500.3400 ####[facility] [address] [place], [address] IMMUNOGLOB M QN 85 mg/dL Normal 20-172 [facility] Comment on above: Performed By: #### L 504.2610, L3100.1850, L3100.3425, L3410.2350, L500.3400 ####[facility] [address] [place], [address] M-Reyes Not Observed Normal Not Observed [facility] Comment on above: Performed By: #### L 504.2610, L3100.1850, L3100.3425, L3410.2350, L500.3400 ####[facility] [address] [place], [address] NOTE: Comment Normal . [facility] Comment on above: Result Comment: Prot ein electrophoresis scan will follow via computer,mail, or team driver delivery. Performed By: #### L 504.2610, L3100.1850, L3100.3425, L3410.2350, L500.3400 ####[facility] [address] [place], [address] Protein [Mass/Vol] 5.5 g/dL Low 6.0-8.[address] [facility] Comment on above: Performed By: #### L 504.2610, L3100.1850, L3100.3425, L3410.2350, L500.3400 ####[facility] [address] [place], [address] Discharge Instructionon 04-15 Discharge Instruction Normal [facility] Basic Metabolic Profile (BMP )on 04-25-2024 BUN/CRE 5.7 RATIO Low 10-20 [facility] Comment on above: Performed By: #### L 500.2500, L100.0100 ####[facility] [address] [place], [address] CA,Total 7.6 mg/dL Low 8.5-10.1 [facility] Comment on above: Performed By: #### L 500.2500, L100.0100 ####[facility] [address] [place], [address] Chloride [Moles/Vol] 106 mmol/L Normal 98-107 [facility] Comment on above: Performed By: #### L 500.2500, L100.0100 ####[facility] [address] [place], [address] CO2 [Moles/Vol] 20.0 mmol/L Low 21.0-32.0 [facility] Comment on above: Performed By: #### L 500.2500, L100.0100 ####[facility] [address] [place], [address] Creatinine [Mass/Vol] 0.88 mg/dL Normal 0.70-1.30 [facility] Comment on above: Result Comment: The validity of the calculated GFR GFRAA in patients over70 years has not been determined. Clinical correlation isessential. Performed By: #### L 500.2500, L100.0100 ####[facility] [address] [place], [address] ECRCL 68.54 ml/min Normal [facility] Comment on above: Performed By: #### L 500.2500, L100.0100 ####[facility] [address] [place], [address] EST GFR - AA 113 mL/min Normal >60 [facility] Comment on above: Result Comment: Afri can [place] GFR Calc Performed By: #### L 500.2500, L100.0100 ####[facility] [address] [place], [address] GAP 9 Normal 5-15 [facility] Comment on above: Performed By: #### L 500.2500, L100.0100 ####[facility] [address] [place], [address] GFR/1.73 sq M.predicted among non-blacks MDRD (S/P/Bld) [Vol rate/Area] 93 mL/min/{1.73_m2} Normal >60 [facility] Comment on above: Result Comment: Non- GFR Calc Performed By: #### L 500.2500, L100.0100 ####[facility] [address] [place], [address] Glucose [Mass/Vol] 102 mg/dL Normal 74-[address] [facility] Comment on above: Result Comment: Fast ing Glucose result from 100 to 125 mg/dLsuggests IMPAIRED HOMEOSTASIS per A.D.A. criteria. Performed By: #### L 500.2500, L100.0100 ####[facility] [address] [place], [address] Potassium [Moles/Vol] 3.8 mmol/L Normal 3.5-5.1 [facility] Comment on above: Performed By: #### L 500.2500, L100.0100 ####[facility] [address] [place], [address] Sodium [Moles/Vol] 135 mmol/L Low 136-[address] [facility] Comment on above: Performed By: #### L 500.2500, L100.0100 ####[facility] [address] [place], [address] Urea nitrogen [Mass/Vol] 5 mg/dL Low 7-18 [facility] Comment on above: Performed By: #### L 500.2500, L100.0100 ####[facility] [address] [place], [address] CBC W/Diff, Automatedon 08- Absolute Lymph 1.05 X10 3/uL Normal 0.83-4.51 [facility] Comment on above: Performed By: #### L 500.2500, L100.0100 ####[facility] [address] [place], [address] Absolute Neut 2.7 X10 3/uL Normal 2.0-7.7 [facility] Comment on above: Performed By: #### L 500.2500, L100.0100 ####[facility] [address] [place], [address] Basophils/100 WBC (Bld) 0.7 % Normal 0-1 [facility] Comment on above: Performed By: #### L 500.2500, L100.0100 ####[facility] [address] [place], [address] Eosinophils/100 WBC (Bld) 5.1 % High 0-5 [facility] Comment on above: Performed By: #### L 500.2500, L100.0100 ####[facility] [address] [place], [address] Erythrocyte distribution width (RBC) [Ratio] 15.5 % High 11.6-14.6 [facility] Comment on above: Performed By: #### L 500.2500, L100.0100 ####[facility] [address] [place], [address] Hematocrit (Bld) [Volume fraction] 25.9 % Low 40-54 [facility] Comment on above: Performed By: #### L 500.2500, L100.0100 ####[facility] [address] [place], [address] Hemoglobin (Bld) [Mass/Vol] 8.8 g/dL Low 13.0-16.5 [facility] Comment on above: Performed By: #### L 500.2500, L100.0100 ####[facility] [address] [place], [address] IG% 2.000 High 0.0-0.9 [facility] Comment on above: Result Comment: IG% - Immature Granulocytes (promyelocytes, myelocytes andmetamyelocytes) > 1% indicates that a LEFT SHIFT is Present. Performed By: #### L 500.2500, L100.0100 ####[facility] [address] [place], [address] Lymphocytes/100 WBC (Bld) 23.3 % Normal 19-41 [facility] Comment on above: Performed By: #### L 500.2500, L100.0100 ####[facility] [address] [place], [address] MCH (RBC) [Entitic mass] 30.3 pg Normal 27.0-32.0 [facility] Comment on above: Performed By: #### L 500.2500, L100.0100 ####[facility] [address] [place], [address] MCHC (RBC) [Mass/Vol] 34.0 g/dL Normal 32-36 [facility] Comment on above: Performed By: #### L 500.2500, L100.0100 ####[facility] [address] [place], [address] MCV (RBC) [Entitic vol] 89.3 fL Normal 80-94 [facility] Comment on above: Performed By: #### L 500.2500, L100.0100 ####[facility] [address] [place], [address] Monocytes/100 WBC (Bld) 8.2 % Normal 0-10 [facility] Comment on above: Performed By: #### L 500.2500, L100.0100 ####[facility] [address] [place], [address] Neutrophils/100 WBC (Bld) 60.7 % Normal 47-70 [facility] Comment on above: Performed By: #### L 500.2500, L100.0100 ####[facility] [address] [place], [address] Nucleated RBC (Bld) [#/Vol] 0 10*3/uL Normal 0-5 [facility] Comment on above: Performed By: #### L 500.2500, L100.0100 ####[facility] [address] [place], [address] Platelet mean volume (Bld) [Entitic vol] 8.7 fL Normal 6.2-12.0 [facility] Comment on above: Performed By: #### L 500.2500, L100.0100 ####[facility] [address] [place], [address] Platelets (Bld) [#/Vol] 157 10*3/uL Normal 150-450 [facility] Comment on above: Performed By: #### L 500.2500, L100.0100 ####[facility] [address] [place], [address] RBC (Bld) [#/Vol] 2.90 10*6/uL Low 4.6-6.2 [facility] Comment on above: Performed By: #### L 500.2500, L100.0100 ####[facility] [address] [place], [address] RDW SD 50.3 fl High 35.1-43.9 [facility] Comment on above: Performed By: #### L 500.2500, L100.0100 ####[facility] [address] [place], [address] WBC (Bld) [#/Vol] 4.5 10*3/uL Normal 4.4-11.[address] [facility] Comment on above: Performed By: #### L 500.2500, L100.0100 ####[facility] [address] [place], [address] HH, Hemoglobin AND Hematocri ton 04-25-2024 Hematocrit (Bld) [Volume fraction] 25.8 % Low 40-54 [facility] Comment on above: Performed By: #### L 100.0600 ####[facility] [address] [place], [address] Hemoglobin (Bld) [Mass/Vol] 8.9 g/dL Low 13.0-16.5 [facility] Comment on above: Performed By: #### L 100.0600 ####[facility] [address] [place], [address] Abdomen/Pelvis WITH Contrast on 04-24-2024 Abdomen/Pelvis WITH Contrast Normal [facility] [id number] 04-24-2024 DIRECT JAIME NEG w/POLYSPECIFIC Normal NEGATIVE [facility] Comment on above: Performed By: #### B 58172-7 ####[facility] [address] [place], [address] Basic Metabolic Profile (BMP )on 04-24-2024 BUN/CRE 3.7 RATIO Low 10-20 [facility] Comment on above: Performed By: #### L 500.2500, L100.0100 ####[facility] [address] [place], [address] CA,Total 7.5 mg/dL Low 8.5-10.1 [facility] Comment on above: Performed By: #### L 500.2500, L100.0100 ####[facility] [address] [place], [address] Chloride [Moles/Vol] 107 mmol/L Normal 98-107 [facility] Comment on above: Performed By: #### L 500.2500, L100.0100 ####[facility] [address] [place], [address] CO2 [Moles/Vol] 21.0 mmol/L Normal 21.0-32.0 [facility] Comment on above: Performed By: #### L 500.2500, L100.0100 ####[facility] [address] [place], [address] Creatinine [Mass/Vol] 0.80 mg/dL Normal 0.70-1.30 [facility] Comment on above: Result Comment: The validity of the calculated GFR GFRAA in patients over70 years has not been determined. Clinical correlation isessential. Performed By: #### L 500.2500, L100.0100 ####[facility] [address] [place], [address] ECRCL 75.40 ml/min Normal [facility] Comment on above: Performed By: #### L 500.2500, L100.0100 ####[facility] [address] [place], [address] EST GFR - AA 125 mL/min Normal >60 [facility] Comment on above: Result Comment: Afri can [place] GFR Calc Performed By: #### L 500.2500, L100.0100 ####[facility] [address] [place], [address] GAP 6 Normal 5-15 [facility] Comment on above: Performed By: #### L 500.2500, L100.0100 ####[facility] [address] [place], [address] GFR/1.73 sq M.predicted among non-blacks MDRD (S/P/Bld) [Vol rate/Area] 104 mL/min/{1.73_m2} Normal >60 [facility] Comment on above: Result Comment: Non- GFR Calc Performed By: #### L 500.2500, L100.0100 ####[facility] [address] [place], [address] Glucose [Mass/Vol] 88 mg/dL Normal 74-[address] [facility] Comment on above: Performed By: #### L 500.2500, L100.0100 ####[facility] [address] [place], [address] Potassium [Moles/Vol] 3.6 mmol/L Normal 3.5-5.1 [facility] Comment on above: Performed By: #### L 500.2500, L100.0100 ####[facility] [address] [place], [address] Sodium [Moles/Vol] 134 mmol/L Low 136-[address] [facility] Comment on above: Performed By: #### L 500.2500, L100.0100 ####[facility] [address] [place], [address] Urea nitrogen [Mass/Vol] 3 mg/dL Low 7-18 [facility] Comment on above: Performed By: #### L 500.2500, L100.0100 ####[facility] [address] [place], [address] CBC W/Diff, Automatedon 04-15 0-2023 Absolute Lymph 1.00 X10 3/uL Normal 0.83-4.51 [facility] Comment on above: Performed By: #### L 500.2500, L100.0100 ####[facility] [address] [place], [address] Absolute Neut 2.7 X10 3/uL Normal 2.0-7.7 [facility] Comment on above: Performed By: #### L 500.2500, L100.0100 ####[facility] [address] [place], [address] Basophils/100 WBC (Bld) 0.2 % Normal 0-1 [facility] Comment on above: Performed By: #### L 500.2500, L100.0100 ####[facility] [address] [place], [address] Eosinophils/100 WBC (Bld) 4.3 % Normal 0-5 [facility] Comment on above: Performed By: #### L 500.2500, L100.0100 ####[facility] [address] [place], [address] Erythrocyte distribution width (RBC) [Ratio] 15.7 % High 11.6-14.6 [facility] Comment on above: Performed By: #### L 500.2500, L100.0100 ####[facility] [address] [place], [address] Hematocrit (Bld) [Volume fraction] 19.7 % Low 40-54 [facility] Comment on above: Performed By: #### L 500.2500, L100.0100 ####[facility] [address] [place], [address] Hemoglobin (Bld) [Mass/Vol] 6.9 g/dL Low 13.0-16.5 [facility] Comment on above: Performed By: #### L 500.2500, L100.0100 ####[facility] [address] [place], [address] IG% 1.200 High 0.0-0.9 [facility] Comment on above: Result Comment: IG% - Immature Granulocytes (promyelocytes, myelocytes andmetamyelocytes) > 1% indicates that a LEFT SHIFT is Present. Performed By: #### L 500.2500, L100.0100 ####[facility] [address] [place], [address] Lymphocytes/100 WBC (Bld) 23.9 % Normal 19-41 [facility] Comment on above: Performed By: #### L 500.2500, L100.0100 ####[facility] [address] [place], [address] MCH (RBC) [Entitic mass] 31.2 pg Normal 27.0-32.0 [facility] Comment on above: Performed By: #### L 500.2500, L100.0100 ####[facility] [address] [place], [address] MCHC (RBC) [Mass/Vol] 35.0 g/dL Normal 32-36 [facility] Comment on above: Performed By: #### L 500.2500, L100.0100 ####[facility] [address] [place], [address] MCV (RBC) [Entitic vol] 89.1 fL Normal 80-94 [facility] Comment on above: Performed By: #### L 500.2500, L100.0100 ####[facility] [address] [place], [address] Monocytes/100 WBC (Bld) 6.7 % Normal 0-10 [facility] Comment on above: Performed By: #### L 500.2500, L100.0100 ####[facility] [address] [place], [address] Neutrophils/100 WBC (Bld) 63.7 % Normal 47-70 [facility] Comment on above: Performed By: #### L 500.2500, L100.0100 ####[facility] [address] [place], [address] Nucleated RBC (Bld) [#/Vol] 0 10*3/uL Normal 0-5 [facility] Comment on above: Performed By: #### L 500.2500, L100.0100 ####[facility] [address] [place], [address] Platelet mean volume (Bld) [Entitic vol] 9.4 fL Normal 6.2-12.0 [facility] Comment on above: Performed By: #### L 500.2500, L100.0100 ####[facility] [address] [place], [address] Platelets (Bld) [#/Vol] 145 10*3/uL Low 150-450 [facility] Comment on above: Performed By: #### L 500.2500, L100.0100 ####[facility] [address] [place], [address] RBC (Bld) [#/Vol] 2.21 10*6/uL Low 4.6-6.2 [facility] Comment on above: Performed By: #### L 500.2500, L100.0100 ####[facility] [address] [place], [address] RDW SD 50.0 fl High 35.1-43.9 [facility] Comment on above: Performed By: #### L 500.2500, L100.0100 ####[facility] [address] [place], [address] WBC (Bld) [#/Vol] 4.2 10*3/uL Low 4.4-11.[address] [facility] Comment on above: Performed By: #### L 500.2500, L100.0100 ####[facility] [address] [place], [address] LDHon 04-24-2024 LDH 166 U/L Normal 87-241 [facility] Comment on above: Performed By: #### L 504.2610, L3100.1850, L3100.3425, L3410.2350, L500.3400 ####[facility] [address] [place], [address] Liver Profileon 04-24-2024 Albumin [Mass/Vol] 2.6 g/dL Low 3.2-5.[address] [facility] Comment on above: Performed By: #### L 504.2610, L3100.1850, L3100.3425, L3410.2350, L500.3400 ####[facility] [address] [place], [address] ALK P 96 U/L Normal 45-117 [facility] Comment on above: Performed By: #### L 504.2610, L3100.1850, L3100.3425, L3410.2350, L500.3400 ####[facility] [address] [place], [address] ALT [Catalytic activity/Vol] 13 U/L Low 16-61 [facility] Comment on above: Performed By: #### L 504.2610, L3100.1850, L3100.3425, L3410.2350, L500.3400 ####[facility] [address] [place], [address] AST [Catalytic activity/Vol] 21 U/L Normal 15-37 [facility] Comment on above: Performed By: #### L 504.2610, L3100.1850, L3100.3425, L3410.2350, L500.3400 ####[facility] [address] [place], [address] Bilirubin [Mass/Vol] 0.40 mg/dL Normal 0.20-1.00 [facility] Comment on above: Result Comment: For patients on eltrombopag therapy, use of Dimension Boomer TBIL is not recommended. Performed By: #### L 504.2610, L3100.1850, L3100.3425, L3410.2350, L500.3400 ####[facility] [address] [place], [address] Bilirubin.direct [Mass/Vol] 0.12 mg/dL Normal 0.00-0.30 [facility] Comment on above: Performed By: #### L 504.2610, L3100.1850, L3100.3425, L3410.2350, L500.3400 ####[facility] [address] [place], [address] Globulin (S) [Mass/Vol] 3.2 g/dL Normal 2.2-4.2 [facility] Comment on above: Performed By: #### L 504.2610, L3100.1850, L3100.3425, L3410.2350, L500.3400 ####[facility] [address] [place], [address] T PROT 5.8 g/dL Low 6.4-8.2 [facility] Comment on above: Performed By: #### L 504.2610, L3100.1850, L3100.3425, L3410.2350, L500.3400 ####[facility] [address] [place], [address] Basic Metabolic Profile (BMP )on 04-23-2024 BUN/CRE 6.8 RATIO Low 10-20 [facility] Comment on above: Performed By: #### L 100.0100, L500.2500 ####[facility] [address] [place], [address] CA,Total 8.0 mg/dL Low 8.5-10.1 [facility] Comment on above: Performed By: #### L 100.0100, L500.2500 ####[facility] [address] [place], [address] Chloride [Moles/Vol] 104 mmol/L Normal 98-107 [facility] Comment on above: Performed By: #### L 100.0100, L500.2500 ####[facility] [address] [place], [address] CO2 [Moles/Vol] 21.0 mmol/L Normal 21.0-32.0 [facility] Comment on above: Performed By: #### L 100.0100, L500.2500 ####[facility] [address] [place], [address] Creatinine [Mass/Vol] 0.73 mg/dL Normal 0.70-1.30 [facility] Comment on above: Result Comment: The validity of the calculated GFR GFRAA in patients over70 years has not been determined. Clinical correlation isessential. Performed By: #### L 100.0100, L500.2500 ####[facility] [address] [place], [address] ECRCL 82.63 ml/min Normal [facility] Comment on above: Performed By: #### L 100.0100, L500.2500 ####[facility] [address] [place], [address] EST GFR - AA 139 mL/min Normal >60 [facility] Comment on above: Result Comment: Afri can Citizen [place] GFR Calc Performed By: #### L 100.0100, L500.2500 ####[facility] [address] [place], [address] GAP 8 Normal 5-15 [facility] Comment on above: Performed By: #### L 100.0100, L500.2500 ####[facility] [address] [place], [address] GFR/1.73 sq M.predicted among non-blacks MDRD (S/P/Bld) [Vol rate/Area] 115 mL/min/{1.73_m2} Normal >60 [facility] Comment on above: Result Comment: Non- GFR Calc Performed By: #### L 100.0100, L500.2500 ####[facility] [address] [place], [address] Glucose [Mass/Vol] 91 mg/dL Normal 74-[address] [facility] Comment on above: Performed By: #### L 100.0100, L500.2500 ####[facility] [address] [place], [address] Potassium [Moles/Vol] 3.3 mmol/L Low 3.5-5.1 [facility] Comment on above: Performed By: #### L 100.0100, L500.2500 ####[facility] [address] [place], [address] Sodium [Moles/Vol] 133 mmol/L Low 136-[address] [facility] Comment on above: Performed By: #### L 100.0100, L500.2500 ####[facility] [address] [place], [address] Urea nitrogen [Mass/Vol] 5 mg/dL Low 7-18 [facility] Comment on above: Performed By: #### L 100.0100, L500.2500 ####[facility] [address] [place], [address] BUN Normal 7-18 [facility] Comment on above: Result Comment: DUPL ICATE ORDER Performed By: #### L 500.2500, L100.0100 ####[facility] [address] [place], [address] BUN/CRE Normal 10-20 [facility] Comment on above: Result Comment: DUPL ICATE ORDER Performed By: #### L 500.2500, L100.0100 ####[facility] [address] [place], [address] CA,Total Normal 8.5-10.1 [facility] Comment on above: Result Comment: DUPL ICATE ORDER Performed By: #### L 500.2500, L100.0100 ####[facility] [address] [place], [address] CL Normal 98-107 [facility] Comment on above: Result Comment: DUPL ICATE ORDER Performed By: #### L 500.2500, L100.0100 ####[facility] [address] [place], [address] CO2 Normal 21.0-32.0 [facility] Comment on above: Result Comment: DUPL ICATE ORDER Performed By: #### L 500.2500, L100.0100 ####[facility] [address] [place], [address] CREAT,SERUM Normal 0.70-1.30 [facility] Comment on above: Result Comment: DUPL ICATE ORDER Performed By: #### L 500.2500, L100.0100 ####[facility] [address] [place], [address] EST GFR Normal >60 [facility] Comment on above: Result Comment: DUPL ICATE ORDER Performed By: #### L 500.2500, L100.0100 ####[facility] [address] [place], [address] EST GFR - AA Normal >60 [facility] Comment on above: Result Comment: DUPL ICATE ORDER Performed By: #### L 500.2500, L100.0100 ####[facility] [address] [place], [address] GAP Normal 5-15 [facility] Comment on above: Result Comment: DUPL ICATE ORDER Performed By: #### L 500.2500, L100.0100 ####[facility] [address] [place], [address] GLU Normal 74-106 [facility] Comment on above: Result Comment: DUPL ICATE ORDER Performed By: #### L 500.2500, L100.0100 ####[facility] [address] [place], [address] Potassium Normal 3.5-5.1 [facility] Comment on above: Result Comment: DUPL ICATE ORDER Performed By: #### L 500.2500, L100.0100 ####[facility] [address] [place], [address] Basic Metabolic Profile (BMP) Normal 136-145 [facility] Comment on above: Result Comment: DUPL ICATE ORDER Performed By: #### L 500.2500, L100.0100 ####[facility] [address] [place], [address] CBC W/Diff, Automatedon 08-0 PATH REV Reviewed Normal [facility] Comment on above: Result Comment: KELLE RE Normocytic anemia.Clinical correlation necessary. Wade Landry M.D. 04/23/24 AMENDED REPORT 04/23/24 0817 PATH REV previously reported as: January Performed By: #### L 500.4050, BTS, BRC, L100.0100 ####[facility] [address] [place], [address] Absolute Lymph 0.85 X10 3/uL Normal 0.83-4.51 [facility] Comment on above: Performed By: #### L 100.0100, L500.2500 ####[facility] [address] [place], [address] Absolute Neut 2.2 X10 3/uL Normal 2.0-7.7 [facility] Comment on above: Performed By: #### L 100.0100, L500.2500 ####[facility] [address] [place], [address] Basophils/100 WBC (Bld) 0.6 % Normal 0-1 [facility] Comment on above: Performed By: #### L 100.0100, L500.2500 ####[facility] [address] [place], [address] Eosinophils/100 WBC (Bld) 4.2 % Normal 0-5 [facility] Comment on above: Performed By: #### L 100.0100, L500.2500 ####[facility] [address] [place], [address] Erythrocyte distribution width (RBC) [Ratio] 15.8 % High 11.6-14.6 [facility] Comment on above: Performed By: #### L 100.0100, L500.2500 ####[facility] [address] [place], [address] Hematocrit (Bld) [Volume fraction] 20.3 % Low 40-54 [facility] Comment on above: Performed By: #### L 100.0100, L500.2500 ####[facility] [address] [place], [address] Hemoglobin (Bld) [Mass/Vol] 7.1 g/dL Low 13.0-16.5 [facility] Comment on above: Performed By: #### L 100.0100, L500.2500 ####[facility] [address] [place], [address] IG% 1.700 High 0.0-0.9 [facility] Comment on above: Result Comment: IG% - Immature Granulocytes (promyelocytes, myelocytes andmetamyelocytes) > 1% indicates that a LEFT SHIFT is Present. Performed By: #### L 100.0100, L500.2500 ####[facility] [address] [place], [address] Lymphocytes/100 WBC (Bld) 23.9 % Normal 19-41 [facility] Comment on above: Performed By: #### L 100.0100, L500.2500 ####[facility] [address] [place], [address] MCH (RBC) [Entitic mass] 30.7 pg Normal 27.0-32.0 [facility] Comment on above: Performed By: #### L 100.0100, L500.2500 ####[facility] [address] [place], [address] MCHC (RBC) [Mass/Vol] 35.0 g/dL Normal 32-36 [facility] Comment on above: Performed By: #### L 100.0100, L500.2500 ####[facility] [address] [place], [address] MCV (RBC) [Entitic vol] 87.9 fL Normal 80-94 [facility] Comment on above: Performed By: #### L 100.0100, L500.2500 ####[facility] [address] [place], [address] Monocytes/100 WBC (Bld) 7.3 % Normal 0-10 [facility] Comment on above: Performed By: #### L 100.0100, L500.2500 ####[facility] [address] [place], [address] Neutrophils/100 WBC (Bld) 62.3 % Normal 47-70 [facility] Comment on above: Performed By: #### L 100.0100, L500.2500 ####[facility] [address] [place], [address] Nucleated RBC (Bld) [#/Vol] 0 10*3/uL Normal 0-5 [facility] Comment on above: Performed By: #### L 100.0100, L500.2500 ####[facility] [address] [place], [address] Platelet mean volume (Bld) [Entitic vol] 8.7 fL Normal 6.2-12.0 [facility] Comment on above: Performed By: #### L 100.0100, L500.2500 ####[facility] [address] [place], [address] Platelets (Bld) [#/Vol] 133 10*3/uL Low 150-450 [facility] Comment on above: Performed By: #### L 100.0100, L500.2500 ####[facility] [address] [place], [address] RBC (Bld) [#/Vol] 2.31 10*6/uL Low 4.6-6.2 [facility] Comment on above: Performed By: #### L 100.0100, L500.2500 ####[facility] [address] [place], [address] RDW SD 50.0 fl High 35.1-43.9 [facility] Comment on above: Performed By: #### L 100.0100, L500.2500 ####[facility] [address] [place], [address] WBC (Bld) [#/Vol] 3.6 10*3/uL Low 4.4-11.[address] [facility] Comment on above: Performed By: #### L 100.0100, L500.2500 ####[facility] [address] [place], [address] Absolute Neut Normal 2.0-7.7 [facility] Comment on above: Result Comment: DUPL ICATE ORDERS Performed By: #### L 500.2500, L100.0100 ####[facility] [address] [place], [address] HCT Normal 40-54 [facility] Comment on above: Result Comment: DUPL ICATE ORDERS Performed By: #### L 500.2500, L100.0100 ####[facility] [address] [place], [address] HGB Normal 13.0-16.5 [facility] Comment on above: Result Comment: DUPL ICATE ORDERS Performed By: #### L 500.2500, L100.0100 ####[facility] [address] [place], [address] MCH Normal 27.0-32.0 [facility] Comment on above: Result Comment: DUPL ICATE ORDERS Performed By: #### L 500.2500, L100.0100 ####[facility] [address] [place], [address] MCHC Normal 32-36 [facility] Comment on above: Result Comment: DUPL ICATE ORDERS Performed By: #### L 500.2500, L100.0100 ####[facility] [address] [place], [address] MCV Normal 80-94 [facility] Comment on above: Result Comment: DUPL ICATE ORDERS Performed By: #### L 500.2500, L100.0100 ####[facility] [address] [place], [address] NEUT% Normal 47-70 [facility] Comment on above: Result Comment: DUPL ICATE ORDERS Performed By: #### L 500.2500, L100.0100 ####[facility] [address] [place], [address] PLT Normal 150-450 [facility] Comment on above: Result Comment: DUPL ICATE ORDERS Performed By: #### L 500.2500, L100.0100 ####[facility] [address] [place], [address] RBC Normal 4.6-6.2 [facility] Comment on above: Result Comment: DUPL ICATE ORDERS Performed By: #### L 500.2500, L100.0100 ####[facility] [address] [place], [address] RDW CV Normal 11.6-14.6 [facility] Comment on above: Result Comment: DUPL ICATE ORDERS Performed By: #### L 500.2500, L100.0100 ####[facility] [address] [place], [address] RDW SD Normal 35.1-43.9 [facility] Comment on above: Result Comment: DUPL ICATE ORDERS Performed By: #### L 500.2500, L100.0100 ####[facility] [address] [place], [address] WBC Normal 4.4-11.0 [facility] Comment on above: Result Comment: DUPL ICATE ORDERS Performed By: #### L 500.2500, L100.0100 ####[facility] [address] [place], [address] Colonoscopy Reporton 024 Colonoscopy Report Normal [facility] EGD Reporton 04-23-2024 EGD Report Normal [facility] Ferritinon 04-23-2024 Ferritin [Mass/Vol] 1236 ng/mL High 26-388 [facility] Comment on above: Performed By: #### L 503.6030, L503.6550 ####[facility] [address] [place], [address] Ferritin [Mass/Vol] 1236 ng/mL High 26-388 [facility] Comment on above: Order Comment: PER Jass VELÁSQUEZ RN, DR WANTED TESTS RAN ON SPECIMEN FROM [...] ISSUE. Performed By: #### L 503.6550, L503.6030 ####[facility] [address] [place], [address] H Pylori (initial)on 024 H Pylori (initial) Normal [facility] Comment on above: Performed By: #### P H.PYLORI ####[facility] [address] [place], [address] HH, Hemoglobin AND Hematocri ton 04-23-2024 Hematocrit (Bld) [Volume fraction] 20.8 % Low 40-54 [facility] Comment on above: Performed By: #### L 100.0600 ####[facility] [address] [place], [address] Hemoglobin (Bld) [Mass/Vol] 7.1 g/dL Low 13.0-16.5 [facility] Comment on above: Performed By: #### L 100.0600 ####[facility] [address] [place], [address] Iron+Iron Binding Capacityon 04-23-2024 Iron [Mass/Vol] 222 ug/dL High 65-175 [facility] Comment on above: Performed By: #### L 503.6030, L503.6550 ####[facility] [address] [place], [address] IRON SATURATION 94.9 High 15.0-55.0 [facility] Comment on above: Performed By: #### L 503.6030, L503.6550 ####[facility] [address] [place], [address] TIBC 234 ug/dL Low 250-450 [facility] Comment on above: Performed By: #### L 503.6030, L503.6550 ####[facility] [address] [place], [address] Iron [Mass/Vol] 222 ug/dL High 65-175 [facility] Comment on above: Result Comment: PER PROFESSOR OF MECHANICAL ENGINEERINGDR WANTED TESTS RAN ON SPECIMEN FROM 04/21.TESTING WAS PERFORMED ON CORRECT SPECIMEN BUT COLLECTIONDATE WAS NOT CORRECTED. REQUESTED COLLECTION DATE BEFIXED. WILL CANCEL AND REORDER TO FIX COLLECTION DATE ISSUE. Performed By: #### L 503.6550, L503.6030 ####[facility] [address] [place], [address] IRON SATURATION 94.9 High 15.0-55.0 [facility] Comment on above: Result Comment: PER PROFESSOR OF MECHANICAL ENGINEERINGDR WANTED TESTS RAN ON SPECIMEN FROM 04/21.TESTING WAS PERFORMED ON CORRECT SPECIMEN BUT COLLECTIONDATE WAS NOT CORRECTED. REQUESTED COLLECTION DATE BEFIXED. WILL CANCEL AND REORDER TO FIX COLLECTION DATE ISSUE. Performed By: #### L 503.6550, L503.6030 ####[facility] [address] [place], [place], [address] TIBC 234 ug/dL Low 250-450 [facility] Comment on above: Result Comment: PER PROFESSOR OF MECHANICAL ENGINEERINGDR WANTED TESTS RAN ON SPECIMEN FROM 04/21.TESTING WAS PERFORMED ON CORRECT SPECIMEN BUT COLLECTIONDATE WAS NOT CORRECTED. REQUESTED COLLECTION DATE BEFIXED. WILL CANCEL AND REORDER TO FIX COLLECTION DATE ISSUE. Performed By: #### L 503.6550, L503.6030 ####[facility] [address] [place], [address] MR/POSTOP.ANEon 04-23-2024 MR/POSTOP.ANE Normal [facility] MR/WPOMCBDJ9os 04-23-2024 MR/POSTOPAN2 Normal [facility] Special Stain Group Ion 08-0 Special Stain Group I Normal [facility] Comment on above: Performed By: #### P SSI ####[facility] [address] [place], [address] 12 Lead EKGon 04-22-2024 12 Lead EKG Normal [facility] Basic Metabolic Profile (BMP )on 04-22-2024 BUN/CRE 10.1 RATIO Normal 10-20 [facility] Comment on above: Performed By: #### L 500.2500 ####[facility] [address] [place], [address] CA,Total 7.8 mg/dL Low 8.5-10.1 [facility] Comment on above: Performed By: #### L 500.2500 ####[facility] [address] [place], [address] Chloride [Moles/Vol] 103 mmol/L Normal 98-107 [facility] Comment on above: Performed By: #### L 500.2500 ####[facility] [address] [place], [address] CO2 [Moles/Vol] 20.0 mmol/L Low 21.0-32.0 [facility] Comment on above: Performed By: #### L 500.2500 ####[facility] [address] [place], [address] Creatinine [Mass/Vol] 0.79 mg/dL Normal 0.70-1.30 [facility] Comment on above: Result Comment: The validity of the calculated GFR GFRAA in patients over70 years has not been determined. Clinical correlation isessential. Performed By: #### L 500.2500 ####[facility] [address] [place], [address] ECRCL 76.35 ml/min Normal [facility] Comment on above: Performed By: #### L 500.2500 ####[facility] [address] [place], [address] EST GFR - AA 127 mL/min Normal >60 [facility] Comment on above: Result Comment: Afri can [place] GFR Calc Performed By: #### L 500.2500 ####[facility] [address] [place], [address] GAP 8 Normal 5-15 [facility] Comment on above: Performed By: #### L 500.2500 ####[facility] [address] [place], [address] GFR/1.73 sq M.predicted among non-blacks MDRD (S/P/Bld) [Vol rate/Area] 105 mL/min/{1.73_m2} Normal >60 [facility] Comment on above: Result Comment: Non- GFR Calc Performed By: #### L 500.2500 ####[facility] [address] [place], [address] Glucose [Mass/Vol] 101 mg/dL Normal 74-[address] [facility] Comment on above: Result Comment: Fast ing Glucose result from 100 to 125 mg/dLsuggests IMPAIRED HOMEOSTASIS per A.D.A. criteria. Performed By: #### L 500.2500 ####[facility] [address] [place], [address] Potassium [Moles/Vol] 3.6 mmol/L Normal 3.5-5.1 [facility] Comment on above: Performed By: #### L 500.2500 ####[facility] [address] [place], [address] Sodium [Moles/Vol] 131 mmol/L Low 136-[address] [facility] Comment on above: Performed By: #### L 500.2500 ####[facility] [address] [place], [address] Urea nitrogen [Mass/Vol] 8 mg/dL Normal 7-18 [facility] Comment on above: Performed By: #### L 500.2500 ####[facility] [address] [place], [address] CBC W/Diff, Automatedon 08-0 -2023 Absolute Lymph 0.75 X10 3/uL Low 0.83-4.51 [facility] Comment on above: Performed By: #### L 100.0100 ####[facility] [address] [place], [address] Absolute Neut 2.4 X10 3/uL Normal 2.0-7.7 [facility] Comment on above: Performed By: #### L 100.0100 ####[facility] [address] [place], [address] Basophils/100 WBC (Bld) 0.6 % Normal 0-1 [facility] Comment on above: Performed By: #### L 100.0100 ####[facility] [address] [place], [address] Eosinophils/100 WBC (Bld) 3.6 % Normal 0-5 [facility] Comment on above: Performed By: #### L 100.0100 ####[facility] [address] [place], [address] Erythrocyte distribution width (RBC) [Ratio] 14.9 % High 11.6-14.6 [facility] Comment on above: Performed By: #### L 100.0100 ####[facility] [address] [place], [address] Hematocrit (Bld) [Volume fraction] 20.4 % Low 40-54 [facility] Comment on above: Performed By: #### L 100.0100 ####[facility] [address] [place], [address] Hemoglobin (Bld) [Mass/Vol] 7.2 g/dL Low 13.0-16.5 [facility] Comment on above: Performed By: #### L 100.0100 ####[facility] [address] [place], [address] IG% 1.700 High 0.0-0.9 [facility] Comment on above: Result Comment: IG% - Immature Granulocytes (promyelocytes, myelocytes andmetamyelocytes) > 1% indicates that a LEFT SHIFT is Present. Performed By: #### L 100.0100 ####[facility] [address] [place], [address] Lymphocytes/100 WBC (Bld) 20.7 % Normal 19-41 [facility] Comment on above: Performed By: #### L 100.0100 ####[facility] [address] [place], [address] MCH (RBC) [Entitic mass] 30.8 pg Normal 27.0-32.0 [facility] Comment on above: Performed By: #### L 100.0100 ####[facility] [address] [place], [address] MCHC (RBC) [Mass/Vol] 35.3 g/dL Normal 32-36 [facility] Comment on above: Performed By: #### L 100.0100 ####[facility] [address] [place], [address] MCV (RBC) [Entitic vol] 87.2 fL Normal 80-94 [facility] Comment on above: Performed By: #### L 100.0100 ####[facility] [address] [place], [address] Monocytes/100 WBC (Bld) 7.4 % Normal 0-10 [facility] Comment on above: Performed By: #### L 100.0100 ####[facility] [address] [place], [address] Neutrophils/100 WBC (Bld) 66.0 % Normal 47-70 [facility] Comment on above: Performed By: #### L 100.0100 ####[facility] [address] [place], [address] Nucleated RBC (Bld) [#/Vol] 0 10*3/uL Normal 0-5 [facility] Comment on above: Performed By: #### L 100.0100 ####[facility] [address] [place], [address] Platelet mean volume (Bld) [Entitic vol] 9.3 fL Normal 6.2-12.0 [facility] Comment on above: Performed By: #### L 100.0100 ####[facility] [address] [place], [address] Platelets (Bld) [#/Vol] 138 10*3/uL Low 150-450 [facility] Comment on above: Performed By: #### L 100.0100 ####[facility] [address] [place], [address] RBC (Bld) [#/Vol] 2.34 10*6/uL Low 4.6-6.2 [facility] Comment on above: Performed By: #### L 100.0100 ####[facility] [address] [place], [address] RDW SD 47.1 fl High 35.1-43.9 [facility] Comment on above: Performed By: #### L 100.0100 ####[facility] [address] [place], [address] WBC (Bld) [#/Vol] 3.6 10*3/uL Low 4.4-11.[address] [facility] Comment on above: Performed By: #### L 100.0100 ####[facility] [address] [place], [address] HH, Hemoglobin AND Hematocri ton 04-22-2024 Hematocrit (Bld) [Volume fraction] 20.2 % Low 40-54 [facility] Comment on above: Performed By: #### L 100.0600 ####[facility] [address] [place], [address] Hemoglobin (Bld) [Mass/Vol] 7.2 g/dL Low 13.0-16.5 [facility] Comment on above: Performed By: #### L 100.0600 ####[facility] [address] [place], [address] Partial Thromboplast Timeon 04-22-2024 aPTT Coag (Bld) [Time] 37.8 s High 24.1-36.2 [facility] Comment on above: Performed By: #### L 300.4310, L300.3900 ####[facility] [address] [place], [address] Prothrombin Time w/INRon INR Coag (PPP) [Relative time] 1.1 {INR} Normal [facility] Comment on above: Performed By: #### L 300.4310, L300.3900 ####[facility] [address] [place], [address] PT Coag (PPP) [Time] 13.9 s Normal 11.7-14.9 [facility] Comment on above: Performed By: #### L 300.4310, L300.3900 ####[facility] [address] [place], [address] Abdomen/Pelvis W IV Cont ONL Yon 04-21-2024 Abdomen/Pelvis W IV Cont ONLY Normal [facility] BRCon 04-21-2024 RC Normal [facility] Comment on above: Result Comment: [id number] AN RC TRANSFUSED 04/24/24 0846 Performed By: #### B RC ####[facility] [address] [place], [address] Result Comment: [id number] AP RC TRANSFUSED 04/21/24 [id number] AP RC TRANSFUSED 04/21/24 1504 Performed By: #### L 500.4050, BTS, BRC, L100.0100 ####[facility] [address] [place], [address] CBC W/Diff, Automatedon PATH REV Reviewed Normal [facility] Comment on above: Result Comment: KELLE RE Normocytic anemia.Clinical correlation necessary.Wade Landry M.D. 04/21/24 AMENDED REPORT 04/21/24 1337 PATH REV previously reported as: January Performed By: #### L 501.9910, L503.0105, L506.1000, L500.4100, L3890.6300, L501.9520, L100.0100 ####[facility] [address] [place], [address] Chest 1 View (Portable)on Chest 1 View (Portable) Normal [facility] Comprehensive Metabolic Prof ilon 04-21-2024 Albumin [Mass/Vol] 3.4 g/dL Normal 3.2-5.[address] [facility] Comment on above: Performed By: #### L 500.4050, [facility], L100.0100 ####[facility] [address] [place], [address] Albumin/Globulin [Mass ratio] 0.8 {ratio} Low 0.9-2.4 [facility] Comment on above: Performed By: #### L 500.4050, [facility], L100.0100 ####[facility] [address] [place], [address] ALK P 143 U/L High 45-117 [facility] Comment on above: Performed By: #### L 500.4050, [facility], L100.0100 ####[facility] [address] [place], [address] ALT [Catalytic activity/Vol] 13 U/L Low 16-61 [facility] Comment on above: Performed By: #### L 500.4050, [facility], L100.0100 ####[facility] [address] [place], [address] AST [Catalytic activity/Vol] 23 U/L Normal 15-37 [facility] Comment on above: Performed By: #### L 500.4050, BTS, BRC, L100.0100 ####[facility] [address] [place], [address] Bilirubin [Mass/Vol] 0.60 mg/dL Normal 0.20-1.00 [facility] Comment on above: Result Comment: For patients on eltrombopag therapy, use of Dimension Boomer TBIL is not recommended. Performed By: #### L 500.4050, BTS, BRC, L100.0100 ####[facility] [address] [place], [address] BUN/CRE 10.2 RATIO Normal 10-20 [facility] Comment on above: Performed By: #### L 500.4050, BTS, [facility], L100.0100 ####[facility] [address] [place], [address] CA,Total 8.6 mg/dL Normal 8.5-10.1 [facility] Comment on above: Performed By: #### L 500.4050, BTS, [facility], L100.0100 ####[facility] [address] [place], [address] Chloride [Moles/Vol] 95 mmol/L Low 98-107 [facility] Comment on above: Performed By: #### L 500.4050, BTS, BR, L100.0100 ####[facility] [address] [place], [address] CO2 [Moles/Vol] 19.0 mmol/L Low 21.0-32.0 [facility] Comment on above: Performed By: #### L 500.4050, BTS, BRC, L100.0100 ####[facility] [address] [place], [address] Creatinine [Mass/Vol] 0.98 mg/dL Normal 0.70-1.30 [facility] Comment on above: Result Comment: The validity of the calculated GFR GFRAA in patients over70 years has not been determined. Clinical correlation isessential. Performed By: #### L 500.4050, BTS, BRC, L100.0100 ####[facility] [address] [place], [address] ECRCL 77.22 ml/min Normal [facility] Comment on above: Performed By: #### L 500.4050, BTS, BRC, L100.0100 ####[facility] [address] [place], [address] EST GFR - AA 100 mL/min Normal >60 [facility] Comment on above: Result Comment: Afri can Citizen [place] GFR Calc Performed By: #### L 500.4050, BTS, BRC, L100.0100 ####[facility] [address] [place], [address] GAP 12 Normal 5-15 [facility] Comment on above: Performed By: #### L 500.4050, BTS, BRC, L100.0100 ####[facility] [address] [place], [address] GFR/1.73 sq M.predicted among non-blacks MDRD (S/P/Bld) [Vol rate/Area] 82 mL/min/{1.73_m2} Normal >60 [facility] Comment on above: Result Comment: Non- GFR Calc Performed By: #### L 500.4050, BTS, BRC, L100.0100 ####[facility] [address] [place], [address] Globulin (S) [Mass/Vol] 4.5 g/dL High 2.2-4.2 [facility] Comment on above: Performed By: #### L 500.4050, BTS, BRC, L100.0100 ####[facility] [address] [place], [address] Glucose [Mass/Vol] 117 mg/dL High 74-[address] [facility] Comment on above: Result Comment: Fast ing Glucose result from 100 to 125 mg/dLsuggests IMPAIRED HOMEOSTASIS per A.D.A. criteria. Performed By: #### L 500.4050, BTS, BRC, L100.0100 ####[facility] [address] [place], [address] Potassium [Moles/Vol] 3.5 mmol/L Normal 3.5-5.1 [facility] Comment on above: Performed By: #### L 500.4050, BTS, BRC, L100.0100 ####[facility] [address] [place], [address] Sodium [Moles/Vol] 126 mmol/L Low 136-[address] [facility] Comment on above: Performed By: #### L 500.4050, BTS, BR, L100.0100 ####[facility] [address] [place], [address] T PROT 7.9 g/dL Normal 6.4-8.2 [facility] Comment on above: Performed By: #### L 500.4050, BTS, BR, L100.0100 ####[facility] [address] [place], [address] Urea nitrogen [Mass/Vol] 10 mg/dL Normal 7-18 [facility] Comment on above: Performed By: #### L 500.4050, BTS, BR, L100.0100 ####[facility] [address] [place], [address] Consultation - Surgicalon Consultation - Surgical Normal [facility] Emergency Department Summary on 04-21-2024 Emergency Department Summary Normal [facility] H AND P Exam - Hospitaliston 04-21-2024 H&P Exam - Hospitalist Normal [facility] Type AND Screenon 04-21-2024 ABO and Rh group Nom (Bld) Blood group A Rh(D) positive Normal [facility] Comment on above: Order Comment: Has [...] By: #### L 500.4050, BTS, BRC, L100.0100 ####[facility] [address] [place], [place], [id number] Hepatitis C Antibodyon 04-20 Hepatitis C AB Non-Reactive Normal Nonreactive [facility] Comment on above: Result Comment: Non Reactive: < 0.8 Equivocal: >/= 0.8 to < 1.0 Reactive: >/= 1.0The CDC requires that a reactive/equivocal HCV antibodyresult be sent out for confirmation. HCV Quant by PCRtesting. Performed By: #### L 501.9910, L503.0105, L506.1000, L500.4100, L3890.6300, L501.9520, L100.0100 ####[facility] [address] [place], [address] Lipid Profileon 2024 Cholesterol [Mass/Vol] 103 mg/dL Normal 200 [facility] Comment on above: Result Comment: <200 mg/dL Desirable 200-240 mg/dL Borderline >240 mg/dL High Risk Performed By: #### L 501.9910, L503.0105, L506.1000, L500.4100, L3890.6300, L501.9520, L100.0100 ####[facility] [address] [place], [address] Cholesterol in HDL [Mass/Vol] 46 mg/dL Normal [facility] Comment on above: Result Comment: The drugs N-Acetylcysteine and Metamizole may falselydepress this assay. Reference Range HDL <40 mg/dL Low HDL Cholesterol HDL >or= 60 mg/dL High HDL Cholesterol Performed By: #### L 501.9910, L503.0105, L506.1000, L500.4100, L3890.6300, L501.9520, L100.0100 ####[facility] [address] [place], [address] Cholesterol in LDL [Mass/Vol] 29 mg/dL Normal 0-130 [facility] Comment on above: Performed By: #### L 501.9910, L503.0105, L506.1000, L500.4100, L3890.6300, L501.9520, L100.0100 ####[facility] [address] [place], [address] Cholesterol in VLDL [Mass/Vol] 28 mg/dL Normal 5-40 [facility] Comment on above: Performed By: #### L 501.9910, L503.0105, L506.1000, L500.4100, L3890.6300, L501.9520, L100.0100 ####[facility] [address] [place], [address] Triglyceride [Mass/Vol] 142 mg/dL Normal [facility] Comment on above: Result Comment: The drugs N-Acetylcysteine and Metamizole may falselydepress this assay.Serum Triglycerides Reference Interval Normal <150 mg/dL Borderline high 150 - 199 mg/dL High 200 - 499 mg/dL Very High > or = 500 mg/dL Performed By: #### L 501.9910, L503.0105, L506.1000, L500.4100, L3890.6300, L501.9520, L100.0100 ####[facility] [address] [place], [place], [address] PSA,Total - Annual Screenon 2024 PSA,TOT SCREEN 0.35 ng/mL Normal 0.00-4.00 [facility] Comment on above: Result Comment: This test was performed using the TPSA assay method for [employer] chemistry system. Values obtained with differentassay methods cannot be used interchangably.When changing PSA assays in the course of monitoring apatient, additional sequential testing should be carriedout to confirm baseline values. Performed By: #### L 501.9910, L503.0105, L506.1000, L500.4100, L3890.6300, L501.9520, L100.0100 ####[facility] [address] [place], [address] Thyroid Stim Hormone (TSH)on 2024 TSH 3.09 uIU/mL Normal 0.358-3.74 [facility] Comment on above: Performed By: #### L 501.9910, L503.0105, L506.1000, L500.4100, L3890.6300, L501.9520, L100.0100 ####[facility] [address] [place], [address] Vitamin B12on 2024 Cobalamin (Vitamin B12) [Mass/Vol] 513 pg/mL Normal 211-911 [facility] Comment on above: Performed By: #### L 501.9910, L503.0105, L506.1000, L500.4100, L3890.6300, L501.9520, L100.0100 ####[facility] [address] [place], [address] Vitamin D,25 Hydroxyon 04-20 Vitamin D 25-OH 21.0 ng/mL Normal [facility] Comment on above: Result Comment: Anita min D 25(OH) Status Range Deficiency <20 ng/mL (50nmol/L) Insufficiency 20 - 30 ng/mL (50 - 75 nmol/L) Sufficiency 30 - 100 ng/mL (75 - 250 nmol/L) Toxicity >100 ng/mL (>250 nmol/L) Performed By: #### L 501.9910, L503.0105, L506.1000, L500.4100, L3890.6300, L501.9520, L100.0100 ####[facility] [address] [place], [address] Absolute lymphocyte countOrd ered By: Amaris Marks on 08-21-2023 Lymphocytes Auto (Unsp spec) [#/Vol] 0.58 10*3/uL 0.83-4.51 [facility] Basophil percentageOrdered B y: Amaris Marks on 08-21-2023 Basophils/100 WBC (Bld) 0.5 % 0-1 [facility] Chloride [Moles/Vol] 106 mmol/L 98-107 [facility] Eosinophils/100 WBC (Bld) 4.4 % 0-5 [facility] Glucose [Mass/Vol] 108 mg/dL 74-[address] [facility] Comment on above: Fasting Glucose resu lt from 100 to 125 mg/dL suggests IMPAIRED HOMEOSTASIS per A.D.A. criteria. Neutrophils (Bld) [#/Vol] 2.6 10*3/uL 2.0-7.7 [facility] Neutrophils/100 WBC (Bld) 66.7 % 47-70 [facility] Potassium [Moles/Vol] 3.7 mmol/L 3.5-5.1 [facility] Sodium [Moles/Vol] 134 mmol/L 136-[address] [facility] WBC (Bld) [#/Vol] 3.9 10*3/uL 4.4-11.[address] [facility] Blood erythrocytes count (nu mber/volume)Ordered By: Amaris Marks on 08-21-2023 RBC (Bld) [#/Vol] 2.31 10*6/uL 4.6-6.2 [facility] Blood hemoglobin measurement (mass/volume)Ordered By: Amaris Marks on 08-21-2023 Hemoglobin (Bld) [Mass/Vol] 7.4 g/dL 13.0-16.5 [facility] Blood lymphocytes/100 leukoc ytesOrdered By: Amaris Marks on 08-21-2023 Lymphocytes/100 WBC (Bld) 15.0 % 19-41 [facility] Blood manual differential co mment interpretation (narrative result)Ordered By: Amaris Marks on 08-21-2023 Manual differential comment Mars (Bld) [Interp] SCANNED [facility] Blood monocytes/100 leukocyt esOrdered By: Amaris Marks on 08-21-2023 Monocytes/100 WBC (Bld) 12.4 % 0-10 [facility] Blood platelet mean volumeOr dered By: Amaris Marks on 08-21-2023 Platelet mean volume (Bld) [Entitic vol] 9.6 fL 6.2-12.0 [facility] Determination of erythrocyte mean corpuscular volume (MCV)Ordered By: Amaris Marks on 08-21-2023 MCV (RBC) [Entitic vol] 94.8 fL 80-94 [facility] Hematocrit Auto (Bld) [Volum e fraction]Ordered By: Amaris Marks on 08-21-2023 Hematocrit (Bld) [Volume fraction] 21.9 % 40-54 [facility] Laboratory - Chemistry and C hemistry - challengeOrdered By: Amaris Marks on 08-21-2023 CO2 [Moles/Vol] 19.0 mmol/L 21.0-32.0 [facility] Urea nitrogen/Creatinine [Mass ratio] 11.3 mg/mg 10-20 [facility] Laboratory - Hematology and Cell countsOrdered By: Amaris Marks on 08-21-2023 Erythrocyte distribution width (RBC) [Entitic vol] 45.3 fL 35.1-43.9 [facility] Erythrocyte distribution width (RBC) [Ratio] 13.2 % 11.6-14.6 [facility] Immature granulocytes/100 WBC (Bld) 1.000 % 0.0-0.9 [facility] Comment on above: IG% - Immature Granu locytes (promyelocytes, myelocytes and metamyelocytes) > 1% indicates that a LEFT SHIFT is Present. MCH (RBC) [Entitic mass] 32.0 pg 27.0-32.0 [facility] Nucleated RBC/100 WBC (Bld) [Ratio] 0 % 0-5 [facility] MCHC Auto (RBC) [Mass/Vol]Or dered By: Amrais Marks on 08-21-2023 MCHC (RBC) [Mass/Vol] 33.8 g/dL 32-36 [facility] No Panel InformationOrdered By: Amaris Marks on 08-21-2023 Estimated Creatinine Clearance Calc 98.85 ml/min [facility] Estimated GFR (MDRD) Amer 127 mL/min >60 [facility] Comment on above: GFR Calc Estimated GFR (MDRD) Non-Af Amer 105 mL/min >60 [facility] Comment on above: Non- GFR Calc Platelets bldOrdered By: Jeni Marks on 08-21-2023 Platelets (Bld) [#/Vol] 140 10*3/uL 150-450 [facility] Review by pathologistOrdered By: Amaris Marks on 08-21-2023 Pathologist review Mars (Unsp spec) [Interp] May foll [facility] Serum or plasma calcium ed urement (mass/volume)Ordered By: Amaris Marks on 08-21-2023 Calcium [Mass/Vol] 8.5 mg/dL 8.5-10.[address] [facility] Serum or plasma creatinine m easurement (mass/volume)Ordered By: Amaris Marks on 08-21-2023 Creatinine [Mass/Vol] 0.80 mg/dL 0.70-1.30 [facility] Comment on above: The validity of the calculated GFR & GFRAA in patients over 70 years has not been determined. Clinical correlation is essential. Serum or plasma urea nitroge n measurement (mass/volume)Ordered By: Amaris Marks on 08-21-2023 Urea nitrogen [Mass/Vol] 9 mg/dL 7-18 [facility] Thin prep Papanicolaou smear with manual screeningOrdered By: Amaris Marks on 08-21-2023 Thin prep Papanicolaou smear with manual screening 9 5-15 [facility] Blood platelet adequacy dete ction by light microscopyOrdered By: Amaris Marks on 08-19-2023 Platelets LM Ql (Bld) SLT DEC ADEQ [facility] Absolute lymphocyte countOrd ered By: Tamir Allan on 08-16-2023 Lymphocytes Auto (Unsp spec) [#/Vol] 1.20 10*3/uL 0.83-4.51 [facility] Basophil percentageOrdered B y: Tamir Allan on 08-16-2023 Basophils/100 WBC (Bld) 0.9 % 0-1 [facility] Chloride [Moles/Vol] 92 mmol/L 98-107 [facility] Eosinophils/100 WBC (Bld) 3.4 % 0-5 [facility] Glucose [Mass/Vol] 143 mg/dL 74-[address] [facility] Comment on above: Fasting Glucose resu lt greater than or equal to 126 mg/dL suggests DIABETES MELLITUS per A.D.A. criteria. Neutrophils (Bld) [#/Vol] 2.4 10*3/uL 2.0-7.7 [facility] Neutrophils/100 WBC (Bld) 54.0 % 47-70 [facility] Potassium [Moles/Vol] 3.4 mmol/L 3.5-5.1 [facility] Sodium [Moles/Vol] 126 mmol/L 136-[address] [facility] WBC (Bld) [#/Vol] 4.4 10*3/uL 4.4-11.[address] [facility] Basophil percentageOrdered B y: Patrice Rothmanandrea on 08-16-2023 Bilirubin [Mass/Vol] 0.50 mg/dL 0.20-1.00 [facility] Comment on above: For patients on eltr ombopag therapy, use of Dimension Boomer TBIL is not recommended. Protein [Mass/Vol] 6.3 g/dL 6.4-8.[address] [facility] Blood erythrocytes count (nu mber/volume)Ordered By: Tamir Allan on 08-16-2023 RBC (Bld) [#/Vol] 3.08 10*6/uL 4.6-6.2 [facility] Blood hemoglobin measurement (mass/volume)Ordered By: Tamir Allan on 08-16-2023 Hemoglobin (Bld) [Mass/Vol] 10.1 g/dL 13.0-16.5 [facility] Blood lymphocytes/100 leukoc ytesOrdered By: Tamir Allan on 08-16-2023 Lymphocytes/100 WBC (Bld) 27.6 % 19-41 [facility] Blood monocytes/100 leukocyt esOrdered By: Tamir Allan on 08-16-2023 Monocytes/100 WBC (Bld) 13.6 % 0-10 [facility] Blood platelet mean volumeOr dered By: Tamir Allan on 08-16-2023 Platelet mean volume (Bld) [Entitic vol] 8.8 fL 6.2-12.0 [facility] Determination of erythrocyte mean corpuscular volume (MCV)Ordered By: Tamir Allan on 08-16-2023 MCV (RBC) [Entitic vol] 89.3 fL 80-94 [facility] Hematocrit Auto (Bld) [Volum e fraction]Ordered By: Tamir Allan on 08-16-2023 Hematocrit (Bld) [Volume fraction] 27.5 % 40-54 [facility] Laboratory - Chemistry and C hemistry - challengeOrdered By: Patrice Watkins on 08-16-2023 ALP [Catalytic activity/Vol] 84 U/L 45-117 [facility] ALT [Catalytic activity/Vol] 22 U/L 16-61 [facility] Globulin (S) [Mass/Vol] 3.0 g/dL 2.2-4.2 [facility] Laboratory - Chemistry and C hemistry - challengeOrdered By: Tamir Allan on 08-16-2023 CO2 [Moles/Vol] 25.0 mmol/L 21.0-32.0 [facility] Urea nitrogen/Creatinine [Mass ratio] 8.8 mg/mg 10-20 [facility] Laboratory - Hematology and Cell countsOrdered By: Tamir Allan on 08-16-2023 Erythrocyte distribution width (RBC) [Entitic vol] 42.5 fL 35.1-43.9 [facility] Erythrocyte distribution width (RBC) [Ratio] 13.1 % 11.6-14.6 [facility] Immature granulocytes/100 WBC (Bld) 0.500 % 0.0-0.9 [facility] Comment on above: IG% - Immature Granu locytes (promyelocytes, myelocytes and metamyelocytes) > 1% indicates that a LEFT SHIFT is Present. MCH (RBC) [Entitic mass] 32.8 pg 27.0-32.0 [facility] Nucleated RBC/100 WBC (Bld) [Ratio] 0 % 0-5 [facility] MCHC Auto (RBC) [Mass/Vol]Or dered By: Tamir Allan on 08-16-2023 MCHC (RBC) [Mass/Vol] 36.7 g/dL 32-36 [facility] No Panel InformationOrdered By: Tamir Allan on 08-16-2023 Estimated Creatinine Clearance Calc 69.99 ml/min [facility] Estimated GFR (MDRD) Amer 85 mL/min >60 [facility] Comment on above: GFR Calc Estimated GFR (MDRD) Non-Af Amer 70 mL/min >60 [facility] Comment on above: Non- GFR Calc No Panel InformationOrdered By: Patrice Watkins on 08-16-2023 Vitamin D 25-Hydroxy 15.4 ng/mL [facility] Comment on above: Vitamin D 25(OH) Sta tus Range Deficiency <20 ng/mL (50nmol/L) Insufficiency 20 - 30 ng/mL (50 - 75 nmol/L) Sufficiency 30 - 100 ng/mL (75 - 250 nmol/L) Toxicity >100 ng/mL (>250 nmol/L) Platelets bldOrdered By: Venu Allan on 08-16-2023 Platelets (Bld) [#/Vol] 171 10*3/uL 150-450 [facility] Serum or plasma albumin ed urement (mass/volume)Ordered By: Patrice Watkins on 08-16-2023 Albumin [Mass/Vol] 3.3 g/dL 3.2-5.[address] [facility] Serum or plasma albumin/glob ulin mass ratioOrdered By: Patrice Watkins on 08-16-2023 Albumin/Globulin [Mass ratio] 1.1 {ratio} 0.9-2.4 [facility] Serum or plasma calcium ed urement (mass/volume)Ordered By: Tamir Allan on 08-16-2023 Calcium [Mass/Vol] 8.7 mg/dL 8.5-10.[address] [facility] Serum or plasma creatinine m easurement (mass/volume)Ordered By: Tamir Allan on 08-16-2023 Creatinine [Mass/Vol] 1.13 mg/dL 0.70-1.30 [facility] Comment on above: The validity of the calculated GFR & GFRAA in patients over 70 years has not been determined. Clinical correlation is essential. Serum or plasma urea nitroge n measurement (mass/volume)Ordered By: Tamir Allan on 08-16-2023 Urea nitrogen [Mass/Vol] 10 mg/dL 7-18 [facility] Thin prep Papanicolaou smear with manual screeningOrdered By: Tamir Allan on 08-16-2023 Thin prep Papanicolaou smear with manual screening 9 5-15 [facility] Thin prep Papanicolaou smear with manual screeningOrdered By: Patrice Watkins on 08-16-2023 Thin prep Papanicolaou smear with manual screening 24 U/L 15- [facility] LABORATORYOrdered By: SYSTEM SYSTEM on 05-13-2023 [...] 4.6 - 10.8 10^3/mcL AO Workflow SS Charli 12-22-2020 RICHARD Telephone ([facility]) KIM CALDWELL ([id number]) 1960 M Date Time Provider Department 12/22/20 GERALDINE CANSECO UCEDDA During your visit today, we recorded the following information about you: Geraldine Canseco APRN.CNP 12/22/2020 10:51 AM Signed This INTELLECTUAL PROPERTY COUNSEL called patient at [phone] left message for patient to return call Please inform of positive covid. Continue home isolation/quarentine . Continue comfort measures for symptoms as you would for a cold. Any worsening symptoms follow up with PCP or ER. Geraldine Canseco APRN.BRENTON Purvis RN, RN 12/22/2020 2:35 PM Signed Patient [...] Status:Closed by APARNA PURVIS RN on 12/22/20 [facility] CNOVon 12-21-2020 CNOV Office Visit ([facility]) KIM CALDWELL ([id number]) 1960 M Date Time Provider Department 12/21/20 12:30 PM CLOVER RICO (PA) During your visit today, we recorded the following information about you: Temperature Pulse Respiration Blood pressure 101.9 degrees 113/minute 18/minute 110/60 Weight 80.1 kg Clover Rico PA-C 12/21/2020 1:24 PM Signed This note was created using [employer]. Subjective Kim Caldwell is a 60 year [...] cause [R50.9] Order(s):2019 CORONAVIRUS [SQCOVID] Order #: [id number] FUTURE XR CHEST 2V FRONTAL/LAT [[id number]] Order #: [id number] FUTURE Prescriptions as of 12/21/2020 Sig: BROMPHENIRAMINE-PSEU DOEPHEDRI* Take 10 mL by mouth three karen* Patient not taking: Reported on 11/09/2019 Problem List As Of Date: 12/21/2020 (None) Letter Text Encounter Status:Closed by CLOVER RICO PA-C on 12/21/20 Normal [facility] Coronavirus 2019on 1 SARS-CoV-2 (COVID-19) RNA JOSE FRANCISCO+probe Ql (Unsp spec) UPPER RESPIRATORY TRACT SWAB Normal [facility] Comment on above: Performed By: #### C OVID #### [facility] [address], [place] [address] SARS-CoV-2 (COVID-19) RNA JOSE FRANCISCO+probe Ql (Unsp spec) Positive for COVID19 (SARS CoV2) by RT-PCR or equivalent method. Critically abnormal Negative for COVID19 (SARS CoV2) by RT-PCR or equivalent method. [facility] Comment on above: Result Comment: This test was developed and its performance characteristics determined by [facility]'s [facility] [place]. This test has been authorized by FDA under an Emergency Use Authorization (EUA). This test has been validated in accordance with the FDA's Guidance Document Policy for Diagnostics Testing in Laboratories Certified to Perform High Complexity Testing under CLIA prior to Emergency use Authorization for Coronavirus Disease 2019 during the Public Health Emergency issued on November 13, 2019. Test performed by [facility], [facility] [place], [facility] [place] [address]. Performed By: #### C OVID #### [place] [id number] [place] [id number] XR CHEST 2V FRONTAL/LATon XR CHEST 2V [...] the right. IMPRESSION: No acute radiographic abnormality. Qm Nurse: MONY Transcribe Date/Time: Dec 21 2020 1:09P Dictated by : FRANCISCO JAVIER HANKS MD This examination was interpreted and the report reviewed and electronically signed by: FRANCISCO JAVIER HANKS MD on Dec 21 2020 1:12PM EST [id number] Normal [facility] XR Chest PA and Lateralon IMPRESSION: No acute radiographic abnormality. Qm Nurse: MONY Transcribe Date/Time: Dec 21 2020 1:09P Dictated [...] on the right. DIVISION OF RADIOLOGY Provider, [facility] [place] - 12/21/2020 * * *Final Report* * [...] right. IMPRESSION IMPRESSION: No acute radiographic abnormality. Qm Nurse: MONY Transcribe Date/Time: Dec 21 2020 1:09P Dictated by : FRANCISCO JAVIER HANKS MD This examination was interpreted and the report reviewed and electronically signed by: FRANCISCO JAVIER HANKS MD on Dec 21 2020 1:12PM EST [facility] Radiology Study observation (narrative) Cornelius knight [facility] XR Chest PA and LateralOrder ed By: Ccf Provider on 12-21-2020 [facility] Vital Signs Date Time Vital Sign Value Performing Clinician Facility 02-10-2025 09:26-0400 Body height 177.[address] Emanuel Macedo MD Work Phone: [facility] 02-10-2025 09:26-0400 Body temperature 97.3 [degF] Dr. Emanuel Macedo MD Work Phone: [facility] 02-10-2025 09:26-0400 Diastolic blood pressure 70 mm[Hg] Dr. Emanuel Macedo MD Work Phone: [facility] 02-10-2025 09:26-0400 Heart rate 98 /min Dr. Emanuel Macedo MD Work Phone: [facility] 02-10-2025 09:26-0400 Respiratory rate 16 /min Dr. Emanuel Macedo MD Work Phone: [facility] 02-10-2025 09:26-0400 SaO2% (BldA) [Mass fraction] 99 % Dr. Emanuel Macedo MD Work Phone: [facility] 02-10-2025 09:26-0400 Systolic blood pressure 103 mm[Hg] Dr. Emanuel Macedo MD Work Phone: [facility] 01-24-2025 15:36-0400 Body temperature 97.9 [degF] Dr. Emanuel Macedo MD Work Phone: [facility] 01-24-2025 15:36-0400 Diastolic blood pressure 93 mm[Hg] Dr. Emanuel Macedo MD Work Phone: [facility] 01-24-2025 15:36-0400 Heart rate 83 /min Dr. Emanuel Macedo MD Work Phone: [facility] 01-24-2025 15:36-0400 Respiratory rate 18 /min Dr. Emanuel Macedo MD Work Phone: [facility] 01-24-2025 15:36-0400 SaO2% (BldA) [Mass fraction] 97 % Dr. Emanuel Macedo MD Work Phone: [facility] 01-24-2025 15:36-0400 Systolic blood pressure 136 mm[Hg] Dr. Emanuel Macedo MD Work Phone: [facility] 01-24-2025 05:41-0400 Body mass index (BMI) [Ratio] 23.3 kg/m2 Dr. Emanuel Macedo MD Work Phone: [facility] 01-24-2025 05:41-0400 Body weight [address] Emanuel Macedo MD Work Phone: [facility] 01-20-2025 10:03-0400 Body height 177.[address] Emanuel Macedo MD Work Phone: [facility] 10-05-2024 14:25-0500 Body weight 56.[address] Emanuel Macedo MD Work Phone: [facility] 08-21-2023 14:01-0500 Body temperature 98 [degF] INTELLECTUAL PROPERTY COUNSEL-C Sofia Adame INTELLECTUAL PROPERTY COUNSEL Work Phone: [facility] 08-21-2023 14:01-0500 Diastolic blood pressure 85 mm[Hg] INTELLECTUAL PROPERTY COUNSEL-C Sofia Adame INTELLECTUAL PROPERTY COUNSEL Work Phone: [facility] 08-21-2023 14:01-0500 Heart rate 98 /min INTELLECTUAL PROPERTY COUNSEL-C Sofia Adame INTELLECTUAL PROPERTY COUNSEL Work Phone: [facility] 08-21-2023 14:01-0500 Respiratory rate 18 /min INTELLECTUAL PROPERTY COUNSEL-C Sofia Adame INTELLECTUAL PROPERTY COUNSEL Work Phone: [facility] 08-21-2023 14:01-0500 SaO2% (BldA) [Mass fraction] 100 % INTELLECTUAL PROPERTY COUNSEL-C Sofia Wendi INTELLECTUAL PROPERTY COUNSEL Work Phone: [facility] 08-21-2023 14:01-0500 Systolic blood pressure 111 mm[Hg] INTELLECTUAL PROPERTY COUNSEL-C Sofia Adame INTELLECTUAL PROPERTY COUNSEL Work Phone: [facility] 08-17-2023 08:00-0500 Body height 177.8 cm INTELLECTUAL PROPERTY COUNSEL-C Sofia Adame INTELLECTUAL PROPERTY COUNSEL Work Phone: [facility] 08-17-2023 08:00-0500 Body mass index (BMI) [Ratio] 25.2 kg/m2 INTELLECTUAL PROPERTY COUNSEL-C Sofia Adame INTELLECTUAL PROPERTY COUNSEL Work Phone: [facility] 08-17-2023 08:00-0500 Body weight 79.78 kg INTELLECTUAL PROPERTY COUNSEL-C Sofia Adame INTELLECTUAL PROPERTY COUNSEL Work Phone: [facility] 08-16-2023 05:58-0500 Diastolic blood pressure 81 mm[Hg] [facility] 08-16-2023 05:58-0500 Heart rate 81 /min [facility] 08-16-2023 05:58-0500 Respiratory rate 18 /min [facility] 08-16-2023 05:58-0500 SaO2% (BldA) [Mass fraction] 100 % [facility] 08-16-2023 05:58-0500 Systolic blood pressure 128 mm[Hg] [facility] 08-16-2023 05:08-0500 Body temperature 97.6 [degF] [facility] 08-16-2023 05:00-0500 Body height 177.8 cm [facility] 08-16-2023 05:00-0500 Body mass index (BMI) [Ratio] 25.8 kg/m2 [facility] 08-16-2023 05:00-0500 Body weight 81.6 kg [facility] 05-13-2023 09:44-0400 Body temperature 97.7 [degF] ERNESTO ADAME DO [facility] 05-13-2023 09:44-0400 Diastolic Blood Pressure Non-Invasive 88 1 ERNESTO ADAME DO [facility] 05-13-2023 09:44-0400 Heart rate 79 /min ERNESTO ADAME DO [facility] 05-13-2023 09:44-0400 Reason For Taking VItal Signs ERNESTO ADAME DO [facility] 05-13-2023 09:44-0400 Respiratory rate 16 /min ERNESTO ADAME DO [facility] 05-13-2023 09:44-0400 Systolic Blood Pressure Non-Invasive 161 1 ERNESTO ADAME DO [facility] 05-13-2023 03:54-0400 Body temperature 98.42 [degF] ERNESTO ADAME DO [facility] 05-13-2023 03:54-0400 Diastolic Blood Pressure Non-Invasive 94 1 ERNESTO ADAME DO [facility] 05-13-2023 03:54-0400 Heart rate 77 /min ERNESTO ADAME DO [facility] 05-13-2023 03:54-0400 Respiratory rate 18 /min ERNESTO ADAME DO [facility] 05-13-2023 03:54-0400 Systolic Blood Pressure Non-Invasive 145 1 ERNESTO ADAME DO [facility] 05-12-2023 23:02-0400 Body temperature 97.7 [degF] ERNESTO ADAME DO [facility] 05-12-2023 23:02-0400 Diastolic Blood Pressure Non-Invasive 101 1 ERNESTO ADAME DO [facility] 05-12-2023 23:02-0400 Heart rate 71 /min ERNESTO ADAME DO [facility] 05-12-2023 23:02-0400 Respiratory rate 18 /min ERNESTO ADAME DO [facility] 05-12-2023 23:02-0400 Systolic Blood Pressure Non-Invasive 149 1 ERNESTO ADAME DO [facility] 05-12-2023 14:58-0400 Body height 175 cm ERNESTO ADAME DO [facility] 05-12-2023 14:58-0400 Body weight 76 kg ERNESTO ADAME DO [facility] 05-12-2023 14:58-0400 Body weight 24.82 kg/m2 ERNESTO ADAME DO [facility] 05-12-2023 14:21-0400 Heart rate 71 /min ERNESTO ADAME DO [facility] 05-12-2023 14:15-0400 Heart rate 73 /min ERNESTO ADAME DO [facility] 05-12-2023 14:10-0400 Heart rate 75 /min ERNESTO ADAME DO [facility] 05-12-2023 13:13-0400 Body temperature 96.26 [degF] ERNESTO ADAME DO [facility] 05-12-2023 13:05-0400 Respiratory Rate - Anes 8 br/min ERNESTO ADAME DO [facility] 05-12-2023 13:00-0400 Respiratory Rate - Anes 5 br/min ERNESTO ADAME DO [facility] 05-12-2023 12:55-0400 Respiratory Rate - Anes 8 br/min ERNESTO ADAME DO [facility] 05-12-2023 12:45-0400 Body temperature 96.8 [degF] ERNESTO ADAME DO [facility] 05-12-2023 10:32-0400 Heart rate 76 /min ERNESTO ADAME DO [facility] 05-12-2023 10:16-0400 Body height 175 cm ERNESTO ADAME DO [facility] 05-12-2023 10:16-0400 Body weight 76 kg ERNESTO ADAME DO [facility] 05-12-2023 10:16-0400 Body weight 24.82 kg/m2 ERNESTO ADAME DO [facility] Encounters Encounter Date Encounter Type Care Provider Facility Start: 02-16-2025 ambulatory Michelle Mata ty:[facility] Start: 02-10-2025 End: 02-10-[address] Myrtle Christiansen MD -[place] Work Phone: Start: 02-10-2025 End: 02-10-[address] Emanuel Macedo MD Work Phone: [facility] Work Phone: Start: 02-09-2025 ambulatory Michelle Mata ty:[facility] Start: 02-09-[address] Michelle Loco MD [facility] Start: 02-08-2025 Non-patient / Non-visit Shantell Helton [facility] Work Phone: Start: 02-08-2025 ambulatory Shantell Hayes Facility :[facility] Start: 02-02-2025 ambulatory Michelle LANG Facili ty:[facility] Start: 02-02-[address] Michelle Loco MD -[facility] Start: 01-25-2025 ambulatory Michelle LANG Facili ty:[facility] Start: 01-25-[address] Michelle Loco MD -[facility] Start: 01-24-2025 Non-patient / Non-visit Dr. Shorty Lea MD -[facility] Work Phone: Start: 01-23-2025 Non-patient / Non-visit Dr. Shorty Lea MD -[facility] Work Phone: Start: 01-22-2025 Non-patient / Non-visit Dr. Shorty Lea MD -[facility] Work Phone: Start: 01-21-2025 Non-patient / Non-visit Dr. Shorty Lea MD -[facility] Work Phone: Start: 01-20-2025 Non-patient / Non-visit Dr. Shorty Lea MD -[facility] Work Phone: Start: 01-19-2025 Non-patient / Non-visit Dr. Shorty Lea MD -[facility] Work Phone: Start: 01-19-2025 ambulatory Shorty Lea Facility: [facility] Start: 01-19-2025 End: 01-24-2025 Evaluation and management of inpatient Dr. Shorty Lea MD -[facility] Work Phone: Start: 10-05-2024 End: 10-05-[address] Obie Funk MD -[employer] [facility] Work Phone: Start: 10-05-2024 End: 01-21-2025 ambulatory Obie Funk Facility:[facility] Start: 09-30-2024 ambulatory Emanuel Chi Remington Facility:[facility] Start: 08-30-2024 End: 08-30-2024 ambulatory Emanuel Chi Remington Facility:[facility] Start: 05-21-2024 ambulatory SOFIA NASCIMENTO ASSISTANT DEAN - PIE FILLING MIXER Facility:[facility] Start: 05-18-2024 ambulatory SERGIO NEELY MD Facility :[facility] Start: 05-05-2024 ambulatory Emanuel Chi [place]ington Facility:[facility] Start: 04-29-2024 End: 04-29-2024 ambulatory Emanuel Chi Remington Facility:[facility] Start: 04-23-2024 ambulatory Tristan Chowdhury Facility: [facility] Start: 04-22-2024 End: 04-22-2024 ambulatory Wilfredojuaquin Franklinandriaelliot Facility:[facility] Start: 04-21-2024 End: 04-26-2024 ambulatory Tristan Luciana Facility:[facility] Start: 2024 End: 2024 ambulatory Emanuel Chi Remington Facility:[facility] Start: 04-07-2024 ambulatory OBIE FUNK MD Facili ty:[facility] Start: 09-22-2023 End: 01-08-2024 ambulatory OBIE FUNK MD Facility:[facility] Start: 09-22-2023 End: 01-08-2024 Physical therapy management OBIE FUNK MD [facility] Start: 08-20-2023 Non-patient / Non-visit INTELLECTUAL PROPERTY COUNSEL-C Bob Adame INTELLECTUAL PROPERTY COUNSEL Work Phone: [facility] Work Phone: Start: 08-19-2023 Non-patient / Non-visit INTELLECTUAL PROPERTY COUNSEL-C Bob Adame INTELLECTUAL PROPERTY COUNSEL Work Phone: [facility] Work Phone: Start: 08-18-2023 Non-patient / Non-visit INTELLECTUAL PROPERTY COUNSEL-C Bob Adame INTELLECTUAL PROPERTY COUNSEL Work Phone: [facility] Work Phone: Start: 08-17-2023 Non-patient / Non-visit INTELLECTUAL PROPERTY COUNSEL-C R monica Adame INTELLECTUAL PROPERTY COUNSEL Work Phone: [facility] Work Phone: Start: 08-16-2023 Non-patient / Non-visit INTELLECTUAL PROPERTY COUNSEL-C R monica Adame INTELLECTUAL PROPERTY COUNSEL Work Phone: [facility] Work Phone: Start: 08-16-2023 End: 08-21-2023 Evaluation and management of inpatient [facility] Work Phone: Start: 06-24-2023 End: 08-11-2023 ambulatory ERNESTO ADAME DO Facility:[facility] Start: 06-24-2023 End: 08-11-2023 Physical therapy management ERNESTO ADAME DO [facility] Start: 05-12-2023 End: 05-13-2023 Observation ERNESTO ADAME DO [facility] Start: 12-21-2020 End: 12-21-2020 Subsequent hospital visit by physician Xr [facility] Work Phone: Radiology Comment on above: Fever, [...] Work Phone: Comment on above: Performed at: [address] Director: Harrison Villareal PhD, Phone: [phone] Start: 01-19-2025 Measurement of occul t blood [...] Phone: Start: 08-17-2023 Plain X-ray of hip INTELLECTUAL PROPERTY COUNSEL-C Sofia Adame INTELLECTUAL PROPERTY COUNSEL Work Phone: Start: 08-17-2023 Plain X-ray of shoulder INTELLECTUAL PROPERTY COUNSEL-C Sofia Adame INTELLECTUAL PROPERTY COUNSEL Work Phone: Start: 08-17-2023 Total replacement of right hip joint INTELLECTUAL PROPERTY COUNSEL-C Sofia Adame INTELLECTUAL PROPERTY COUNSEL Work Phone: Start: 08-16-2023 Plain chest X-ray INTELLECTUAL PROPERTY COUNSEL-C Sofia Adame INTELLECTUAL PROPERTY COUNSEL Work Phone: Start: 08-16-2023 Plain x-ray of pelvi s and lower extremity INTELLECTUAL PROPERTY COUNSEL-C Sofia Adame INTELLECTUAL PROPERTY COUNSEL Work Phone: Start: 05-12-2023 Cervical arthrodesis by anterior technique ERNESTO ADAME DO Start: 12-21-2020 Radiologic exam ches t 2 views Clover Bob Rico PA-C Work Phone: Extraction of cataract ANNETTE ADAME DO Comment on above: bilateral Plan of Treatment Date Care Activity Detail Author Start: 01-24-2025 Patient discharge [facility] Start: 01-24-2025 Care planning and problem solving actions [facility] Start: 01-20-2025 End: 01-20-2025 Administration of blood product [facility] Start: 01-20-2025 Vital signs measurements [facility] Start: 01-20-2025 Vital signs measurements [facility] Start: 01-20-2025 Vital signs measurements [facility] Start: 01-20-2025 Vital signs measurements [facility] Start: 01-20-2025 Vital signs measurements [facility] Start: 01-19-2025 Vital signs measurements [facility] Start: 01-19-2025 Vital signs measurements [facility] Start: 01-19-2025 Vital signs measurements [facility] Start: 01-19-2025 Vital signs measurements [facility] Start: 01-19-2025 Application of intermittent pneumatic compression device [facility] Start: 01-19-2025 [facility] Start: 01-19-2025 Vital signs measurements [facility] Start: 01-19-2025 Following clinical pathway protocol [facility] Start: 01-19-2025 Ambulation without limitation [facility] Start: 01-19-2025 Assessment of risk of venous thromboembolism [facility] Start: 01-19-2025 Documentation procedure [facility] Start: 01-19-2025 Insertion of catheter into peripheral vein [facility] Start: 01-19-2025 Measuring intake and output [facility] Start: 01-19-2025 Providing care according to standard [facility] Start: 01-19-2025 Referral to occupational therapist [facility] Start: 01-19-2025 Referral to service [facility] Start: 01-19-2025 [facility] Start: 01-19-2025 Vital signs measurements [facility] Start: 01-19-2025 Admission procedure [facility] Start: 01-19-2025 Administration of blood product [facility] Start: 01-19-2025 Patient referral to dietitian [facility] Start: 05-16-2024 Covid-19 Vaccine ( season) Covid-19 Vaccine () [facility] Start: 05-16-2024 Influenza vaccination Influenza Vaccine (#1) [facility] Start: 08-27-2023 Blood chemistry [facility] Start: 08-26-2023 Blood chemistry [facility] Start: 08-25-2023 Blood chemistry [facility] Start: 08-24-2023 Blood chemistry [facility] Start: 08-23-2023 Blood chemistry [facility] Start: 08-22-2023 Blood chemistry [facility] Start: 08-21-2023 Patient discharge [facility] Start: 08-20-2023 Referral to service [facility] Start: 08-18-2023 Provision of overbed trapeze [facility] Start: 08-17-2023 Ambulation therapy management [facility] Start: 08-17-2023 Assessment of risk of venous thromboembolism [facility] Start: 08-17-2023 Catheterization of vein [facility] Start: 08-17-2023 Exercises [facility] Start: 08-17-2023 Following clinical pathway protocol [facility] Start: 08-17-2023 Introduction of urinary catheter [facility] Start: 08-17-2023 Measuring intake and output [facility] Start: 08-17-2023 Neurovascular assessment [facility] Start: 08-17-2023 Patient education [facility] Start: 08-17-2023 Procedure discontinued [facility] Start: 08-17-2023 Provision of activity privileges [facility] Start: 08-17-2023 Provision of overbed trapeze [facility] Start: 08-17-2023 Vital signs measurements [facility] Start: 08-17-2023 Wound care [facility] Start: 08-17-2023 [facility] Start: 08-17-2023 Measuring intake and output [facility] Start: 08-16-2023 Measuring intake and output [facility] Start: 08-16-2023 Measuring intake and output [facility] Start: 08-16-2023 Recommendation to continue with treatment [facility] Start: 08-16-2023 Referral to occupational therapist [facility] Start: 08-16-2023 Referral to service [facility] Start: 08-16-2023 Application of intermittent pneumatic compression device [facility] Start: 08-16-2023 Application of ice collar, cap or bag [facility] Start: 08-16-2023 Assessment of risk of venous thromboembolism [facility] Start: 08-16-2023 Consultation [facility] Start: 08-16-2023 Documentation procedure [facility] Start: 08-16-2023 Insertion of catheter into peripheral vein [facility] Start: 08-16-2023 Neurovascular assessment [facility] Start: 08-16-2023 Providing care according to standard [facility] Start: 08-16-2023 Referral to service [facility] Start: 08-16-2023 Skin care [facility] Start: 08-16-2023 [facility] Start: 08-16-2023 Measuring intake and output [facility] Start: 08-16-2023 Following clinical pathway protocol [facility] Start: 08-16-2023 Verification routine [facility] Start: 08-16-2023 Admission procedure [facility] Start: 08-16-2023 Hospital admission, emergency, from emergency room, medical nature [facility] Start: 08-16-2023 Plain chest X-ray Chest 1 View (Portable) [facility] Start: 08-16-2023 Plain x-ray of pelvis and lower extremity HIP, UNI W/ Pelvis 2-3 Views [facility] Start: 08-16-2023 XR Chest Single view [facility] Start: 08-16-2023 XR Pelvis and Hip Views [facility] Start: 08-16-2023 [facility] Start: 08-16-2023 Application of ice collar, cap or bag [facility] Start: 2021 RSV Vaccine (1 - 1-dose 60+ series) RSV Vaccine (1 - 1-dose 60+ series) [facility] Start: 2016 Prostate specific antigen measurement Prostate Cancer Screening Discussion [facility] Start: 2011 Shingrix Vaccine (1 of 2) Shingrix Vaccine (1 of 2) [facility] Start: 2006 Diabetes Screening Diabetes Screening [facility] Start: 2006 Screening for malignant neoplasm of colon [facility] Start: 1996 Lipid panel Lipid Screening [facility] Start: 1980 Urine microalbumin profile DTaP,Tdap,Td Vaccine (1 - Tdap) [facility] Start: 1979 Anxiety Screening Anxiety Screening [facility] Start: 1979 Depression Screening Depression Screening [facility] Start: 1979 Hepatitis C screening Hepatitis C Screening [facility] Start: 1979 HIV screening HIV Screening [facility] Ferritin [Mass/volum e] in Serum or Plasma [facility] Iron and Iron bindin g capacity panel - Serum or Plasma [facility] Patient referral [facility] Work Phone: Procedure [facility] Immunizations Immunization Date Immunization Notes Care Provider Jeff middleton 09-28-2015 tetanus toxoid, redu sreedhar diphtheria toxoid, and acellular pertussis vaccine, adsorbed ERNESTO ADAME DO [facility] 09-15-2014 tetanus and diphther ia toxoids, adsorbed, preservative free, for adult use (2 Lf of tetanus toxoid and 2 Lf of diphtheria toxoid) INTELLECTUAL PROPERTY COUNSEL-C Sofia Adame NP Work Phone: [facility] 09-15-2014 tetanus and diphther ia toxoids, adsorbed, preservative free, for adult use (5 Lf of tetanus toxoid and 2 Lf of diphtheria toxoid) ERNESTO ADAME DO [facility] Payers Date Payer Category Payer Unknown [id number] 2024 Private Health Insurance [id number] 2024 Self-pay [id number] 2023 Unknown [id number] 2023 Unknown [id number] 2019 Private Health Insurance SARYJOYLNN HUNTER OAP [id number] 2019-Present [phone] [address] [place] [address] Open Access [id number] .[id number] 1960 Unknown [id number] 2..840.1.319676.3.579.2.6 27 1961 Unknown [id number] 2..840.1.349055.3.579.2.6 27 1961 Unknown [id number] 2.16.840.1.272013.3.579.2.6 27 1961 Unknown [id number] 2.16.840.1.959962.3.579.2.6 27 1961 Unknown [id number] 2.16.840.1.650624.3.579.2.6 27 Unknown [id number] 2.16.840.1.810918.3.579.2.4 62 Unknown [id number] 2.16.840.1.801326.3.579.2.4 62 Unknown [id number] 2.16.840.1.035665.3.579.2.4 62 Unknown [id number] 2.16.840.1.333318.3.579.2.4 62 Unknown [id number] 2.16.840.1.276389.3.579.2.4 62 Unknown [id number] 2.16.840.1.364510.3.579.2.4 62 Unknown [id number] 2.16.840.1.587790.3.579.2.4 62 Unknown [id number] 2.16.840.1.400428.3.579.2.4 62 Unknown [id number] 2.16.840.1.764219.3.579.2.4 62 Unknown [id number] 2.16.840.1.756288.3.579.2.4 62 Unknown [id number] 2.16.840.1.650062.3.579.2.4 62 Unknown [id number] 2.16.840.1.085885.3.579.2.4 62 Unknown [id number] 2.16.840.1.401046.3.579.2.4 62 Unknown [id number] 2.16.840.1.088365.3.579.2.4 62 Unknown [id number] 2.16.840.1.858624.3.579.2.4 62 Unknown [id number] 2.16.840.1.009283.3.579.2.4 62 Unknown [id number] 2.16.840.1.408024.3.579.2.4 62 Unknown [id number] 2.16.840.1.097520.3.579.2.4 62 Unknown [id number] 2.16.840.1.292708.3.579.2.4 62 Unknown [id number] 2.16.840.1.733909.3.579.2.4 62 Unknown [id number] 2.16.840.1.559949.3.579.2.4 62 Unknown [id number] 2.16.840.1.117073.3.579.2.4 62 Unknown [id number] 2.16.840.1.936996.3.579.2.4 62 Unknown [id number] 2.16.840.1.254563.3.579.2.4 62 Unknown [id number] 2.16.840.1.508060.3.579.2.4 62 Unknown [id number] 2.16.840.1.618241.3.579.2.4 62 Unknown [id number] 2.16.840.1.570245.3.579.2.4 62 Unknown [id number] 2.16.840.1.138609.3.579.2.4 62 Unknown [id number] 2.16.840.1.333067.3.579.2.4 62 Unknown [id number] 2.16.840.1.837421.3.579.2.4 62 Unknown [id number] 2.16.840.1.594334.3.579.2.4 62 Social History Date Type Detail Facility Start: 05-09-2023 Tobacco smoking status Heavy t obacco smoker (finding) [facility] Start: 1960 Sex Assigned At Male A [facility] Start: 08-16-2023 End: 08-16-2023 Tobacco smoking status SDIS Unknown if ever smoked [facility] Start: 03-30-2019 End: 01-20-2025 Tobacco smoking status NHIS Occasional tobacco smoker [facility] Start: 03-30-2019 Tobacco use and exposure Smokeless tobacco non-user [facility] Start: 12-21-2020 Alcoholic beverage intake Current drinker of alcohol (finding) [facility] Start: 08-23-2020 End: 12-21-2020 History of Social function [facility] Start: 08-23-2020 End: 12-21-2020 Tobacco use panel [facility] National Score (1-100), lower number is lower risk Not on file [facility] Start: 03-30-2019 Alcohol Comment 2-3 beers daily [facility] Start: 1960 Sex assigned at Not on file [facility] Start: 11-21-2020 End: 12-21-2020 Exposure to SARS-CoV-2 (event) Not sure [facility] Start: 02-10-2025 Tobacco smoking stat [facility] Ex-smoker (finding) [facility] Medical Equipment Procedure Code Equipment Code Equipment Origin al Text Equipment Identifier Dates ([id number]) Ceramic femoral head prosthesis ()[id number]( [id number] FDA Start: 08-17-2023 ([id number]) Acetabular shell ()[id number] FDA Start: 08-17-2023 ([id number]) Coated hip femur prosthesis, modular ()[id number]( [id number] FDA Start: 08-17-2023 ([id number]) Non-constrained polyethylene acetabular liner ()[id number] FDA Start: 08-17-2023 ([id number]) Acetabular shell ()[id number] FDA Start: 08-17-2023 (738055050) Orthopaedic bone screw, non-bioabsorbable, sterile ()[id number] FDA Start: 08-17-2023 ([id number]) Orthopaedic bone screw, non-bioabsorbable, sterile ()[id number])[id number] FDA Start: 08-17-2023 Goals Date Patient Goal Desired Activity /State Functional Status Date Assessment Result Facility 01-24-2025 Functional status Ambulates;Bathroom Priv ilege [facility] Work Phone: 09-22-2023 Functional Status Objective: [...] bilat LE's Special tests: Homans sign - bilat [facility] 08-21-2023 Functional status Patient Activity Dangle Feet [facility] Work Phone: 08-21-2023 Functional status Activity Abili ty With Assist of 1 [facility] Work Phone: 08-20-2023 Functional status Standard Walker [facility] Work Phone: 06-24-2023 Functional Status OBJECTIVE [...] seconds Dynamometer: R 64lbs, L 58 lbs [facility] 05-13-2023 Functional Status Multilevel silvia e, 1st floor bedroom, 1st floor bathroom, 1st floor laundry [facility] 05-13-2023 Functional Status [facility] 05-13-2023 Functional Status bilateral knee high removed/off [facility] 05-13-2023 Functional Status [facility] 05-12-2023 Functional Status [facility] 05-12-2023 Functional Status [facility] 05-12-2023 Functional Status [facility] 05-12-2023 Functional Status [facility] 05-12-2023 Functional Status [facility] 05-12-2023 Functional Status More than 8 hours [facility] Mental Status Date Assessment Result Facility 01-24-2025 Cognitive function Voice/Name [facility] Work Phone: 08-21-2023 Cognitive function Voice/Name [facility] Work Phone: 05-13-2023 Mental Status Orientation Oriented x 4 [facility] 05-12-2023 Mental Status [facility] 05-12-2023 Mental Status [facility] 05-12-2023 Mental Status [facility] 05-12-2023 Mental Status [facility] Clinical Notes 12-21-2020 to 01-24-2025 Note Date & Type Note Facility 01-24-2025 Consult note [facility] 01-24-2025 Discharge summary Note Date/Time January 24, 2025 4:30pm [facility] Medical Records Department [address] [place] [address] Discharge Summary 01/24/25 1629 MR#: [id number] Acct: [id number] Name: KIM CALDWELL Rep #:[id number] : 1960 64 From: Shorty Knight PCP: Dr. Emanuel Macedo MD Status:ADM I N Location: [place] [id number] Providers Date of Admission: 01/19/25 Date of [...] Serum sodium was 126 in August 2024. [id number]. 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 After discussion of benefits/risks procedures [...] Neut % (Auto) 58.8, Lymph % (Auto)24.7, Gage % (Auto) 11.5 H, Eos % (Auto) [...] in before D/C Order can be placed): Long-Term Facility Charges/Coding Visit Charges Inpatient E&M: 80788 Disch Hosp >30min 01/24/25 1630 <Electronically signed by Shorty Lea MD> Cosigner Signature (if applicable): CC: Dr. Shorty Lea MD; Dr. Emanuel Macedo MD~ Signed [facility] Work Phone: 1(861) 277-454805-12-2025 Discharge summary Author Shorty Lea [facility] Note Date/Time January 24, 2025 3:18p m [facility] Medical Records Department [address] [place] [address] Transfer to [facility] Care MR#: [id number] Acct: [id number] Name: KIM CALDWELL Rep #:[id number] : 1960 64 From: Shorty Knight PCP: Dr. Emanuel Macedo MD Status:ADM I N Certification of patient admission REQUIRED AT TIME OF ADMISSION. I CERTIFY THAT POST-HOSPITAL ECF SERVICES ARE REQUIRED TO BE GIVEN ON AN IN-PATIENT BASIS BECAUSE OF THE ABOVE NAMED PATIENT'S NEED FOR GROUP HOME CARE ON A CONTINUING BASIS FOR THE CONDITION(S) FOR WHICH HE/SHE WAS RECEIVING IN-PATIENT HOSPITAL SERVICES PRIOR TO HIS/HER TRANSFER TO THE ECF. 01/24/25 1518<Electronically signed by Shorty eLa MD> Diet Diet Order/Speech Therapy: 01/19/25 11:55 [...] Serum sodium was 126 in August 2024. [id number]. 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 After discussion of benefits/risks procedures [...] in before D/C Order can be placed): Long-Term Facility 01/24/25 3272 <Electronically signed by Shorty Lea MD> Cosigner Signature (if applicable): CC: Dr. Emanuel Macedo MD ~ [facility] Work Phone: 1(939) 911-600805-12-2025 Discharge summary [facility] Medical Records Department [address] [place] [address] Discharge Summary 01/24/25 1629 MR#: [id number] Acct: [id number] Name: KIM CALDWELL Rep #:[id number] : 1960 64 From: Shorty Knight PCP: Dr. Emanuel Macedo MD Status:ADM I N Location: [place] [address] Providers Date of Admission: 01/19/25 Date of [...] Serum sodium was 126 in August 2024. [id number]. 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 After discussion of benefits/risks procedures [...] Neut % (Auto) 58.8, Lymph % (Auto)24.7, Gage % (Auto) 11.5 H, Eos % (Auto) [...] in before D/C Order can be placed): Long-Term Facility Charges/Coding Visit Charges Inpatient E&M: 75179 Disch Hosp >30min 01/24/25 1630 Cosigner Signature (if applicable): CC: Dr. Shorty Lea MD; Dr. Emanuel Macedo MD~ Signed [facility]12[facility] Medical Records Department [address] [place] [address] Transfer to [facility] MR#: [id number] Acct: [id number] Name: KIM CALDWELL Rep #:[id number] : 1960 64 From: Shorty Knight PCP: Dr. Emanuel Macedo MD Status:ADM I N Certification of patient admission REQUIRED AT TIME OF ADMISSION. I CERTIFY THAT POST-HOSPITAL ECF SERVICES ARE REQUIRED TO BE GIVEN ON AN IN-PATIENT BASIS BECAUSE OF THE ABOVE NAMED PATIENT'S NEED FOR GROUP HOME CARE ON A CONTINUING BASIS FOR THE CONDITION(S) FOR WHICH HE/SHE WAS RECEIVING IN-PATIENT HOSPITAL SERVICES PRIOR TO HIS/HER TRANSFER TO THE ECF. 01/24/25 1518 Diet Diet Order/Speech Therapy: 01/19/25 [...] Serum sodium was 126 in August 2024. [id number]. Rapidly related to chronic alcohol use with [...] smoking and chronic alcohol use dependence, [facility] 24-hour monitoring ordered. 8. DVT prophylaxis: Pharmacological prophylaxis contraindicated. Bilateral SCDs Living will/advanced directive/end of life care: Patient does not have living will or advanced directive. 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 After discussion of benefits/risks procedures [...] in before D/C Order can be placed): Long-Term Facility 01/24/25 1188 Cosigner Signature (if applicable): CC: Dr. Emanuel Macedo MD ~ [facility]05-12-2025 Progress note Author Shorty Lea [facility] Note Date/Time January 24, 2025 12:04 pm [facility] Medical Records Department [address] [place] [address] Progress Note - Hospitalist 01/24/25 1152 MR#: [id number] Acct: [id number] Name: KIM CALDWELL Rep #:[id number] : 1960 64 From: Shorty Knight PCP: Dr. Emanuel Macedo MD Status:ADM I N Location: [place] [address] Reason for Visit Reason for Visit: Diagnoses [...] Neut % (Auto) 58.8, Lymph % (Auto)24.7, Gage % (Auto) 11.5 H, Eos % (Auto) [...] Serum sodium was 126 in August 2024. [id number]. Rapidly related to chronic alcohol use with [...] smoking and chronic alcohol use dependence, [facility] 24-hour monitoring ordered. 8. DVT prophylaxis: Pharmacological prophylaxis contraindicated. Bilateral SCDs Living will/advanced directive/end of life care: Patient does not have living will or advanced directive. 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 After discussion of benefits/risks procedures involved with full code,DNR CC arrest and DNR CC, the patient opted for DNR CC arrest with no intubation Patient doesn't want artificial life support including intubation, tube feed, ventilator and/chest compression, central venous catheter, vasopressor and DC shock if needed Charges/Coding Visit Charges Inpatient E&M: 06183 Subs Hosp L2 01/24/25 1204 <Electronically signed by Shorty Lea MD> Cosigner Signature (if applicable): CC: ~ Signed [facility] Work Phone: 1(763) 679-907805-12-2025 Progress note [facility] Medical Records Department [address] [place] [address] Progress Note - Hospitalist 01/24/25 1152 MR#: [id number] Acct: [id number] Name: KIM CALDWELL Rep #:[id number] : 1960 64 From: Shorty Knight PCP: Dr. Emanuel Macedo MD Status:ADM I N Location: [place] [address] Reason for Visit Reason for Visit: Diagnoses [...] Neut % (Auto) 58.8, Lymph % (Auto)24.7, Gage % (Auto) 11.5 H, Eos % (Auto) [...] Serum sodium was 126 in August 2024. [id number]. Rapidly related to chronic alcohol use with [...] smoking and chronic alcohol use dependence, [facility] 24-hour monitoring ordered. 8. DVT prophylaxis: Pharmacological prophylaxis contraindicated. Bilateral SCDs Living will/advanced directive/end of life care: Patient does not have living will or advanced directive. 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 After discussion of benefits/risks procedures involved with full code,DNR CC arrest and DNR CC, the patient opted for DNR CC arrest with no intubation Patient doesn't want artificial life support including intubation, tube feed, ventilator and/chest compression, central venous catheter, vasopressor and DC shock if needed Charges/Coding Visit Charges Inpatient E&M: 62280 [facility] Hosp L2 01/24/25 1204 Cosigner Signature (if applicable): CC: ~ Signed [facility]05-11-2025 Progress note Author Shorty Lea [facility] Note Date/Time January 23, 2025 12:46 pm [facility] Medical Records Department [address] [place] [address] Progress Note - Hospitalist 01/23/25 1242 MR#: [id number] Acct: [id number] Name: KIM CALDWELL Rep #:[id number] : 1960 64 From: Shorty Knight PCP: Dr. Emanuel Macedo MD Status:ADM I N Location: [place] [address] Reason for Visit Reason for Visit: Diagnoses [...] 900 960 / 960 Output Total 2049 / 2049 Balance -1150 / -1150 960 / [...] Serum sodium was 126 in August 2024. [id number]. Rapidly related to chronic alcohol use with [...] smoking and chronic alcohol use dependence, [facility] 24-hour monitoring ordered. 8. DVT prophylaxis: Pharmacological prophylaxis contraindicated. Bilateral SCDs Living will/advanced directive/end of life care: Patient does not have living will or advanced directive. 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 After discussion of benefits/risks procedures involved with full code,DNR CC arrest and DNR CC, the patient opted for DNR CC arrest with no intubation Patient doesn't want artificial life support including intubation, tube feed, ventilator and/chest compression, central venous catheter, vasopressor and DC shock if needed Charges/Coding Visit Charges Inpatient E&M: 42444 Subs Hosp L2 01/23/25 1246 <Electronically signed by Shorty Lea MD> Cosigner Signature (if applicable): CC: ~ Signed [facility] Work Phone: 1(255) 465-215805-11-2025 Progress note [facility] Medical Records Department [address] [place] [address] Progress Note - Hospitalist 01/23/25 1242 MR#: [id number] Acct: [id number] Name: KIM CALDWELL Rep #:[id number] : 1960 64 From: Shorty Knight PCP: Dr. Emanuel Macedo MD Status:ADM I N Location: [place] [address] Reason for Visit Reason for Visit: Diagnoses [...] 900 960 / 960 Output Total 2049 / 2049 Balance -1150 / -1150 960 / [...] Serum sodium was 126 in August 2024. Spjzc775. Rapidly related to chronic alcohol use with [...] smoking and chronic alcohol use dependence, [facility] 24-hour monitoring ordered. 8. DVT prophylaxis: Pharmacological prophylaxis contraindicated. Bilateral SCDs Living will/advanced directive/end of life care: Patient does not have living will or advanced directive. 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 After discussion of benefits/risks procedures involved with full code,DNR CC arrest and DNR CC, the patient opted for DNR CC arrest with no intubation Patient doesn't want artificial life support including intubation, tube feed, ventilator and/chest compression, central venous catheter, vasopressor and DC shock if needed Charges/Coding Visit Charges Inpatient E&M: 24389 Subs Hosp L2 01/23/25 1246 Cosigner Signature (if applicable): CC: ~ Signed [facility]05-10-2025 Progress note Author Shorty Lea [facility] Note Date/Time January 22, 2025 1:10p m [facility] Medical Records Department [address] [place] [address] Progress Note - Hospitalist 01/22/25 1305 MR#: [id number] Acct: [id number] Name: KIM CALDWELL Rep #:[id number] : 1960 64 From: Shorty Knight PCP: Dr. Emanuel Macedo MD Status:ADM I N Location: [place] [address] Reason for Visit Reason for Visit: Diagnoses [...] (Auto) 77.1 H, Lymph % (Auto)14.3 L, Gage % (Auto) 7.5, Eos % (Auto) 0.0, [...] Serum sodium was 126 in August 2024. [id number]. Rapidly related to chronic alcohol use with [...] smoking and chronic alcohol use dependence, [facility] 24-hour monitoring ordered. 8. DVT prophylaxis: Pharmacological prophylaxis contraindicated. Bilateral SCDs Living will/advanced directive/end of life care: Patient does not have living will or advanced directive. 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 After discussion of benefits/risks procedures involved with full code,DNR CC arrest and DNR CC, the patient opted for DNR CC arrest with no intubation Patient doesn't want artificial life support including intubation, tube feed, ventilator and/chest compression, central venous catheter, vasopressor and DC shock if needed Total time spent in hmox-bj-euys encounter in discussion of advanced directive 17 [...] (Auto) 77.1 H, Lymph % (Auto)14.3 L, Gage % (Auto) 7.5, Eos % (Auto) 0.0, [...] Ratio 1.1 Charges/Coding Visit Charges Inpatient E&M: 43732 Subs Hosp L2 01/22/25 1310 <Electronically signed by Shorty Lea MD> Cosigner Signature (if applicable): CC: ~ Signed [facility] Work Phone: 1(692) 702-400705-10-2025 Progress note [facility] Medical Records Department [address] [place] [address] Progress Note - Hospitalist 01/22/25 1305 MR#: [id number] Acct: [id number] Name: KIM CALDWELL Rep #:[id number] : 1960 64 From: Shorty Knight PCP: Dr. Emanuel Macedo MD Status:ADM I N Location: [place] [address] Reason for Visit Reason for Visit: Diagnoses [...] / 480 Output Total 1600 / 2400 2050 / 2050 Balance 1260 / 460 -1150 / -1150 [...] (Auto) 77.1 H, Lymph % (Auto)14.3 L, Gage % (Auto) 7.5, Eos % (Auto) 0.0, [...] Serum sodium was 126 in August 2024. [id number]. Rapidly related to chronic alcohol use with [...] smoking and chronic alcohol use dependence, [facility] 24-hour monitoring ordered. 8. DVT prophylaxis: Pharmacological prophylaxis contraindicated. Bilateral SCDs Living will/advanced directive/end of life care: Patient does not have living will or advanced directive. 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 After discussion of benefits/risks procedures involved with full code,DNR CC arrest and DNR CC, the patient opted for DNR CC arrest with no intubation Patient doesn't want artificial life support including intubation, tube feed, ventilator and/chest compression, central venous catheter, vasopressor and DC shock if needed Total time spent in dafw-vr-[id number] encounter in discussion of advanced directive 17 [...] (Auto) 77.1 H, Lymph % (Auto)14.3 L, Gage % (Auto) 7.5, Eos % (Auto) 0.0, [...] Albumin/GlobulinRatio 1.1 Charges/Coding Visit Charges Inpatient E&M: 01440 Subs Hosp L2 01/22/25 1310 Cosigner Signature (if applicable): CC: ~ Signed [facility]05-09-2025 Progress note Author Shorty Lea [facility] Note Date/Time January 21, 2025 4:15pm [facility] Medical Records Department [address] [facility] [place] [address] Progress Note - Hospitalist 01/21/25 1611 MR#: [id number] Acct: [id number] Name: KIM CALDWELL Rep #:[id number] : 1960 64 From: Shorty Knight PCP: Dr. Emanuel Macedo MD Status:ADM I N Location: [place] [address] Reason for Visit Reason for Visit: Diagnoses [...] 900 Output Total 1600 / 2400 2049 Balance 2260 / 2260 1260 / [...] % (Auto) 67.5, Lymph % (Auto) 21.4, Gage % (Auto) 8.0, Eos % (Auto) 1.3, Baso % (Auto) 0.9, Absolute Neuts (auto) 1.5 L, Absolute Lymphs (auto) 0.48 L, Nucleated RBC % 0, Platelet Estimate MKD DEC, Anisocytosis 1+, Ovalocytes 1+, Acanthocytes (Spur) 1+, Zcoriq937 L, Potassium 3.2 L, Chloride 100, Carbon [...] 3. Degenerative changes as above. Reading Location: [facility] Foot X-Ray 01/21/25 11:00 IMPRESSION: 1. Soft tissue swelling without acute fracture. 2. If symptoms persist, repeat radiograph in 10-14 days recommended. Reading Location: [facility] Physical Exam Narrative Left great toe and [...] Serum sodium was 126 in August 2024. [id number]. Rapidly related to chronic alcohol use with [...] smoking and chronic alcohol use dependence, [facility] 24-hour monitoring ordered. 8. DVT prophylaxis: Pharmacological prophylaxis contraindicated. Bilateral SCDs Living will/advanced directive/end of life care: Patient does not have living will or advanced directive. 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 After discussion of benefits/risks procedures involved with full code,DNR CC arrest and DNR CC, the patient opted for DNR CC arrest with no intubation Patient doesn't want artificial life support including intubation, tube feed, ventilator and/chest compression, central venous catheter, vasopressor and DC shock if needed Total time spent in cbzy-ds-dfwz encounter in discussion of advanced directive 17 [...] TSH 2.000 Charges/Coding Visit Charges Inpatient E&M: 45396 Subs Hosp L2 01/21/25 1615 <Electronically signed by Shorty Lea MD> Cosigner Signature (if applicable): CC: ~ Signed [facility] Work Phone: 1(547) 783-788905-09-2025 Progress note [facility] Medical Records Department [address] [facility] [place] [address] Progress Note - Hospitalist 01/21/25 1611 MR#: [id number] Acct: [id number] Name: KIM CALDWELL Rep #:[id number] : 1960 64 From: Shorty Knight PCP: Dr. Emanuel Macedo MD Status:ADM I N Location: [place] [address] Reason for Visit Reason for Visit: Diagnoses [...] % (Auto) 67.5, Lymph % (Auto) 21.4, Gage % (Auto) 8.0, Eos % (Auto) 1.3, Baso % (Auto) 0.9, Absolute Neuts (auto) 1.5 L, Absolute Lymphs (auto) 0.48 L, Nucleated RBC % 0, Platelet Estimate MKD DEC, Anisocytosis 1+, Ovalocytes 1+, Acanthocytes (Spur) 1+, Myrkqr470 L, Potassium 3.2 L, Chloride 100, Carbon [...] 3. Degenerative changes as above. Reading Location: [facility] Foot X-Ray 01/21/25 11:00 IMPRESSION: 1. Soft tissue swelling without acute fracture. 2. If symptoms persist, repeat radiograph in 10-14 days recommended. Reading Location: [facility] Physical Exam Narrative Left great toe and [...] Serum sodium was 126 in August 2024. [id number]. Rapidly related to chronic alcohol use with [...] smoking and chronic alcohol use dependence, [facility] 24-hour monitoring ordered. 8. DVT prophylaxis: Pharmacological prophylaxis contraindicated. Bilateral SCDs Living will/advanced directive/end of life care: Patient does not have living will or advanced directive. 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 After discussion of benefits/risks procedures involved with full code,DNR CC arrest and DNR CC, the patient opted for DNR CC arrest with no intubation Patient doesn't want artificial life support including intubation, tube feed, ventilator and/chest compression, central venous catheter, vasopressor and DC shock if needed Total time spent in mxyc-gw-kehg encounter in discussion of advanced directive 17 [...] TSH 2.000 Charges/Coding Visit Charges Inpatient E&M: 51129 Subs Hosp L2 01/21/25 1615 Cosigner Signature (if applicable): CC: ~ Signed [facility]05-09-2025 Radiology Diagnostic study note [facility] Imaging Services [address] [place], [place] [id number] [phone] min 3 Views MR#: [id number] Acct: [id number] Name: KIM CALDWELL Rep #: [id number] : 1960 M 64 From: Lazara Paulson MD PCP: Dr. Emanuel Macedo MD Status: ADM I N Study:Foot min 3 Views Date of Exam: 06/09 Exam# [id number] Ordering Dr: Stuart Lea MD EXAM: XR [...] radiograph in 10-14 days recommended. Reading Location: [facility] CC: Dr. Shorty Lea MD; Dr. Emanuel Macedo MD ~ Qm Nurse: Signed [facility]05-09-2025 Radiology Diagnostic study note [facility] Imaging Services [address] [place], [place] [address] [phone] Foot min 3 Views MR#: [id number] Acct: [id number] Name: KIM CALDWELL Rep #: [id number] : 1960 M 64 From: Lazara Paulson MD PCP: Dr. Emanuel Macedo MD Status: ADM I N Study:Foot min 3 Views Date of Exam: 06/09 Exam# [id number] Ordering Dr: Stuart Lea MD EXAM: XR [...] OTHER FINDINGS: Suboptimal exam secondary to underpenetration. Parasertovalery. RAD/Foot min 3 Views IMPRESSION: 1. Soft tissue swelling without acute fracture. 2. If symptoms persist, repeat radiograph in 10-14 days recommended. 3. Degenerative changes as above. Reading Location[facility] CC: Dr. Shorty Lea MD; Dr. Emanuel Macedo MD ~ Qm Nurse: Signed [facility]05-08-2025 Progress note Author Shorty Lea [facility] Note Date/Time January 20, 2025 4:08pm [facility] Medical Records Department [address] [place] [address] Progress Note - Hospitalist 01/20/25 1014 MR#: [id number] Acct: [id number] Name: KIM CALDWELL Rep #:[id number] : 1960 64 From: Shorty Knight PCP: Dr. Emanuel Macedo MD Status:ADM I N Location: [place] [address] Reason for Visit Reason for Visit: Diagnoses [...] Clarity Clear, Urine pH 7.0, Ur Specific [place] 1.005, Urine Protein 30 H, Urine Glucose [...] Serum sodium was 126 in August 2024. [id number]. Rapidly related to chronic alcohol use with [...] smoking and chronic alcohol use dependence, [facility] 24-hour monitoring ordered. 8. DVT prophylaxis: Pharmacological prophylaxis contraindicated. Bilateral SCDs Living will/advanced directive/end of life care: Patient does not have living will or advanced directive. 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 After discussion of benefits/risks procedures involved with full code,DNR CC arrest and DNR CC, the patient opted for DNR CC arrest with no intubation Patient doesn't want artificial life support including intubation, tube feed, ventilator and/chest compression, central venous catheter, vasopressor and DC shock if needed Total time spent in zprq-dy-xvyx encounter in discussion of advanced directive 17 [...] TSH 2.000 Charges/Coding Visit Charges Inpatient E&M: 31691 Subs Hosp L2 01/20/25 1608 <Electronically signed by Shorty Lea MD> Cosigner Signature (if applicable): CC: ~ Signed [facility] Work Phone: 1(197) 927-664305-08-2025 Progress note [facility] Medical Records Department [address] [place] [address] Progress Note - Hospitalist 01/20/25 1014 MR#: [id number] Acct: [id number] Name: KIM CALDWELL Rep #:[id number] : 1960 64 From: Shorty Knight PCP: Dr. Emanuel Macedo MD Status:ADM I N Location: [place] [address] Reason for Visit Reason for Visit: Diagnoses [...] Clarity Clear, Urine pH 7.0, Ur Specific [place] 1.005, Urine Protein 30 H, Urine Glucose [...] Serum sodium was 126 in August 2024. Alpgq901. Rapidly related to chronic alcohol use with [...] smoking and chronic alcohol use dependence, [facility] 24-hour monitoring ordered. 8. DVT prophylaxis: Pharmacological prophylaxis contraindicated. Bilateral SCDs Living will/advanced directive/end of life care: Patient does not have living will or advanced directive. 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 After discussion of benefits/risks procedures involved with full code,DNR CC arrest and DNR CC, the patient opted for DNR CC arrest with no intubation Patient doesn't want artificial life support including intubation, tube feed, ventilator and/chest compression, central venous catheter, vasopressor and DC shock if needed Total time spent in logm-gz-arcu encounter in discussion of advanced directive 17 [...] TSH 2.000 Charges/Coding Visit Charges Inpatient E&M: 45257 Subs Hosp L2 01/20/25 1608 Cosigner Signature (if applicable): CC: ~ Signed [facility]05-07-2025 History and physical note Author Shorty Lea [facility] Note Date/Time January 19, 2025 3:02pm [facility] Medical Records Department [address] [place] [address] H&P Exam - Hospitalist 01/19/25 1032 MR#: [id number] Acct: [id number] Name: KIM CALDWELL Rep #:[id number] : 1960 64 From: Shorty Knight PCP: Dr. Emanuel Macedo MD Status:ADM I N Location: [place] [address] HPI - General General Date of Admission: [...] day. Denies [place] or other substance use [facility] Medical History Closed fracture of right hip Home Medications ?Medication ?Instructions ?Recorded ?Last Taken ?Type mirtazapine 7.5 mg tablet 7.5 mg PO HS mental health 04/21/24 01/18/25 History pantoprazole 40 [...] 85.5 H, Lymph % (Auto) 8.3 L, Gage % (Auto) 4.4, Eos % (Auto) 0.9, [...] with femoral prosthesis partially imaged. Reading Location: [facility] Chest X-Ray 01/19/25 08:20 IMPRESSION: No evidence of acute disease. Reading Location: [facility] Brain CT 01/19/25 08:22 IMPRESSION: No intracranial hemorrhage, mass effect or calvarial fracture. Volume loss, atrophy appears moderate for age. Reading Location: [facility] Assessment & Plan Assessment/Plan (1) Chronic [...] Serum sodium was 126 in August 2024. Upacc520. Rapidly related to chronic alcohol use with [...] smoking and chronic alcohol use dependence, [facility] 24-hour monitoring ordered. 8. DVT prophylaxis: Pharmacological prophylaxis contraindicated. Bilateral SCDs Living will/advanced directive/end of life care: Patient does not have living will or advanced directive. 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 After discussion of benefits/risks procedures involved with full code,DNR CC arrest and DNR CC, the patient opted for DNR CC arrest with no intubation Patient doesn't want artificial life support including intubation, tube feed, ventilator and/chest compression, central venous catheter, vasopressor and DC shock if needed Total time spent in dqcr-er-odmb encounter in discussion of advanced directive 17 [...] 85.5 H, Lymph % (Auto) 8.3 L, Gage % (Auto) 4.4, Eos % (Auto) 0.9, [...] See Detail Charges/Coding Visit Charges Inpatient E&M: 93170 Init Hosp L3 Procedures Hospitalists Procedures: 26533 Advncd Care Plan 30 Min 01/19/25 1502 <Electronically signed by Shorty Lea MD> Cosigner Signature (if applicable): CC: Dr. Shorty Lea MD; Dr. Emanuel Macedo MD~ Signed [facility] Work Phone: 1(215) 226-524205-07-2025 Discharge summary Author Milagro Sanders [facility] Note Date/Time January 19, 2025 2:49pm [facility] Medical Records Department [address] [place] [address] Emergency Department Summary 01/19/25 MR#: [id number] Acct: [id number] Name: KIM CALDWELL Rep #:[id number] : 1960 64 From: Milagro Gonzalez PCP: Dr. Emanuel Macedo MD Status:ADM I N Location: [place] [address] HPI History of Present Illness Chief Complaint: [...] at this time. No sick contacts reported. [facility] Medical History Closed fracture of right hip Home Medications ?Medication ?Instructions ?Recorded ?Last Taken ?Type mirtazapine 7.5 mg tablet 7.5 mg PO [facility] mental health 04/21/24 01/18/25 History pantoprazole 40 [...] 85.5 H Lymph % (Auto) 8.3 L Gage % (Auto) 4.4 Eos % (Auto) 0.9 [...] with femoral prosthesis partially imaged. Reading Location: [facility] Chest X-Ray 01/19/25 08:20 IMPRESSION: No evidence of acute disease. Reading Location: [facility] Brain CT 01/19/25 08:22 IMPRESSION: No intracranial hemorrhage, mass effect or calvarial fracture. Volume loss, atrophy appears moderate for age. Reading Location: [facility] Management Discussion w/another healthcare provider: Hospitalist Discharge Plan Triage Chief Complaint: Fall ED Provider: Milagro Sanders Dx/Rx/DC Orders Clinical Impression: Anemia, Acute hyponatremia, Acute hypokalemia, Hypomagnesemia, Weakness generalized Primary Care Provider: Emanuel Macedo Chi Disposition Disposition: Acute Care Hospital [facility] What to do if you have Problems For any increased pain, shortness of breath, bleeding, nausea or vomiting, chestpain, or any unexpected problems, contact your Primary Care Provider. Call [facility] ([phone]) or report to the closest Emergency Room. Call 911 if necessary. 01/19/25 1449 <Electronically signed by Milagro Sanders DO> Cosigner Signature (if applicable): CC: Dr. Emanuel Macedo MD ~ Signed [facility] Work Phone: 1(356) 634-631505-07-2025 History and physical note [facility] Medical Records Department [address] [place] [address] H&P Exam - Hospitalist 01/19/25 1032 MR#: [id number] Acct: [id number] Name: KIM CALDWELL Rep #:[id number] : 1960 64 From: Shorty Knight PCP: Dr. Emanuel Macedo MD Status:ADM I N Location: [place] [address] HPI - General General Date of Admission: [...] day. Denies [place] or other substance use [facility] Medical History Closed fracture of [...] 85.5 H, Lymph % (Auto) 8.3 L, Gage % (Auto) 4.4, Eos % (Auto) 0.9, [...] with femoral prosthesis partially imaged. Reading Location: [facility] Chest X-Ray 01/19/25 08:20 IMPRESSION: No evidence of acute disease. Reading Location: [facility] Brain CT 01/19/25 08:22 IMPRESSION: No intracranial hemorrhage, mass effect or calvarial fracture. Volume loss, atrophy appears moderate for age. Reading Location: [facility] Assessment & Plan Assessment/Plan (1) Chronic [...] Serum sodium was 126 in August 2024. Elnby854. Rapidly related to chronic alcohol use with [...] smoking and chronic alcohol use dependence, [facility] 24-hour monitoring ordered. 8. DVT prophylaxis: Pharmacological prophylaxis contraindicated. Bilateral SCDs Living will/advanced directive/end of life care: Patient does not have living will or advanced directive. 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 After discussion of benefits/risks procedures involved with full code,DNR CC arrest and DNR CC, the patient opted for DNR CC arrest with no intubation Patient doesn't want artificial life support including intubation, tube feed, ventilator and/chest compression, central venous catheter, vasopressor and DC shock if needed Total time spent in ykny-zr-riae encounter in discussion of advanced directive 17 [...] 85.5 H, Lymph % (Auto) 8.3 L, Gage % (Auto) 4.4, Eos % (Auto) 0.9, [...] See Detail Charges/Coding Visit Charges Inpatient E&M: 88887 Init Hosp L3 Procedures Hospitalists Procedures: 53883 Advncd Care Plan 30 Min 01/19/25 1502 Cosigner Signature (if applicable): CC: Dr. Shorty Lea MD; Dr. Emanuel Macedo MD~ Signed [facility]05-07-2025 Discharge summary [facility] Medical Records Department [address] [place] [address] Emergency Department Summary 01/19/25 MR#: [id number] Acct: [id number] Name: KIM CALDWELL Rep #:[id number] : 1960 64 From: Milagro Gonzalez PCP: Dr. Emanuel Macedo MD Status:ADM I N Location: [place] [address] HPI History of Present Illness Chief Complaint: [...] at this time. No sick contacts reported. [facility] Medical History Closed fracture of right hip [...] 85.5 H Lymph % (Auto) 8.3 L Gage % (Auto) 4.4 Eos % (Auto) 0.9 [...] with femoral prosthesis partially imaged. Reading Location: [facility] Chest X-Ray 01/19/25 08:20 IMPRESSION: No evidence of acute disease. Reading Location: [facility] Brain CT 01/19/25 08:22 IMPRESSION: No intracranial hemorrhage, mass effect or calvarial fracture. Volume loss, atrophy appears moderate for age. Reading Location: [facility] Management Discussion w/another healthcare provider: Hospitalist Discharge Plan Triage Chief Complaint: Fall ED Provider: Milagro Sanders Dx/Rx/DC Orders Clinical Impression: Anemia, Acute hyponatremia, Acute hypokalemia, Hypomagnesemia, Weakness generalized Primary Care Provider: Emanuel Macedo Chi Disposition Disposition: Acute Care [facility] What to do if you have Problems For any increased pain, shortness of breath, bleeding, nausea or vomiting, chestpain, or any unexpected problems, contact your Primary Care Provider. Call [facility] ([phone]) or report tothe closest Emergency Room. Call 911 if necessary. 01/19/25 1449 Cosigner Signature (if applicable): CC: Dr. Emanuel Macedo MD ~ Signed [facility]05-07-2025 Evaluation note* Diagnosis Onset Date Resolution Status Admit Date Chronic hyponatremia chronic January 19, 2025 10:30am [facility] Work Phone: [phone] Evaluation note* Diagnosis Onset Date Resolution Status Admit Date Chronic hyponatremia inactive January 19, 2025 10:30am [facility] Work Phone: 1(857) 605-388205-07-2025 Radiology Diagnostic study note [facility] Imaging Services [address] [place], [place] [id number] Pelvis 1 or 2 Views MR#: [id number] Acct: [id number] Name: KIM CALDWELL Rep #: [id number] : 1960 M 64 From: Merlin Vaca MD PCP: Dr. Emanuel Macedo MD Status: REG E R Study:Pelvis 1 or 2 Views Date of Exam: 01/19/25 Exam# [id number] Ordering Dr: Jass Sanders DO PROCEDURE: PELVIS [...] with femoral prosthesis partially imaged. Reading Location: [facility] CC: Dr. Milagro Sanders DO; Dr. Emanuel Macedo MD ~ Qm Nurse: Signed [facility]05-07-2025 Radiology Diagnostic study note [facility] Imaging Services [address] [place], [place] [address] Chest 1 View (Portable) MR#: [id number] Acct: [id number] Name: KIM CALDWELL Rep #: [id number] : 1960 M 64 From: Merlin Vaca MD PCP: Dr. Emanuel Macedo MD Status: REG E R Study:Chest 1 View (Portable) Date of Exam: 01/19/25 Exam# [id number] Ordering Dr: Jass Sanders DO PROCEDURE: CHEST [...] No evidence of acute disease. Reading Location: [facility] CC: Dr. Milagro Sanders DO; Dr. Emanuel Macedo MD ~ Qm Nurse: Signed [facility]05-07-2025 Radiology Diagnostic study note [facility] Imaging Services [address] [place], [place] [address] Brain/Head without Contrast MR#: [id number] Acct: [id number] Name: KIM CALDWELL Rep #: [id number] : 1960 M 64 From: Merlin Vaca MD PCP: Dr. Emanuel Macedo MD Status: REG E R Study:Brain/Head without Contrast Date of Exa m: 01/19/25 Exam# [id number] Ordering Dr: Jass Sanders DO PROCEDURE: BRAIN/HEAD [...] atrophy appears moderate for age. Reading Location: [id number] CC: Dr. Milagro Sanders DO; Dr. Emanuel Macedo MD ~ Qm Nurse: Signed [facility]08-12-2024 [facility]12-06-2023 Progress note Author Shorty Lea [facility] August 20, 2023 5:18pm Note Date/Time August 20, 2023 5 :18pm [facility] Medical Records Department [address] [place] [address] Progress Note - Hospitalist 08/20/23 1715 MR#: [id number] Acct: [id number] Name: KIM CALDWELL Rep #:[id number] : 1960 63 From: Shorty Knight PCP: PASTORA Luz tus:ADM IN Location: [place] [address] Reason for Visit Reason for Visit: Diagnoses [...] (Auto) 72.6 H, Lymph % (Auto) 12.1L, Gage % (Auto) 9.8, Eos % (Auto) 4.1, [...] twice daily. Charges/Coding Visit Charges Inpatient E&M: 33046 Subs Hosp L2 08/20/239 <Electronically signed by Shorty Lea MD> Cosigner Signature (if applicable): CC: ~ Signed [facility] Work Phone: 1(948) 404-398512-06-2023 Discharge summary Author Shorty Lea [facility] August 21, 2023 12:49pm Note Date/Time August 20, 2023 3 :53pm [facility] Medical Records Department [address] [place] [address] Discharge Summary 08/21/23 1248 MR#: [id number] Acct: [id number] Name: KIM CALDWELL Rep #:[id number] : 1960 63 From: Shorty Knight PCP: PASTORA Luzs:ADM IN Location: [place] [address]1 Providers Date of Admission: 08/16/23 Date of [...] (Natura-LAX) 17 g PO DAILY #510 grams 08/20/23 sennosides 8.6 mg-docusate sodium 50 mg tablet [...] (Auto) 72.6 H, Lymph % (Auto) 12.1L, Gage % (Auto) 9.8, Eos % (Auto) 4.1, [...] Shorty Lea Primary Care Provider: Sofia Adame INTELLECTUAL PROPERTY COUNSEL Consulting Providers: Patrice Watkins; Obie Funk; Amaris Marks Discharge Orders/Prescriptions Prescriptions: New sennosides-docusate sodium [Stool Softener-Stimulant Laxat] 8.6-50 mg Tablet 2 tab PO BID Qty: 0 0RF Rx Instructions: Ezzd-ovb-hhtvyii. acetaminophen 500 mg Tablet 1,000 mg PO Q8 Qty: 0 0RF Rx Instructions: Uodo-oee-ouqpxim. 1000 mg every 8 hourly for 1 [...] 2 Weeks (For hip fracture.) Sofia Adame INTELLECTUAL PROPERTY COUNSEL, INTELLECTUAL PROPERTY COUNSEL-C [Primary Care Provider] - In 1 Week (Patient has constipation normal stool softener.) Disposition Disposition (needs filled in before D/C Order can be placed): Home Health Service Charges/Coding Visit Charges Inpatient E&M: 55494 Disch Hosp >30min 08/20/23 1553 <Electronically signed [...] Adame; Dr. Shorty Lea MD ~* Signed [facility] Work Phone: 1(137) 407-369912-06-2023 Discharge summary Author Shorty Lea [facility] August 21, 2023 12:44pm Note Date/Time August 20, 2023 3 :35pm [facility] Medical Records Department [address] [place] [address] Instructions for Home/Discharge Instructions 08/21/23 1025 MR#: [id number] Acct: [id number] Name: KIM CALDWELL Rep #:[id number] : [...] PO BID Qty: 0 0RF Rx Instructions: Ewgn-uvl-hdcffch. acetaminophen 500 mg Tablet 1,000 mg PO Q8 Qty: 0 0RF Rx Instructions: Blgn-zqk-selsztl. 1000 mg every 8 hourly for 1 [...] 0RF Referrals / Follow Up: Sofia Adame NP, INTELLECTUAL PROPERTY COUNSELYangC [Primary Care Provider] - In 1 Week (Patient has constipation normal stool softener.) Obie Funk MD [Med Staff - Active Staff] - Within 2 Weeks (For hip fracture.) Disposition Disposition (needs filled in before D/C Order can be placed): Home Health Service 08/20/23 1546<Electronically signed by Shorty Lea MD>Shorty Lea MD CC: PASTORA Adame; Dr. Patrice Watkins DO; Dr. Amaris Marks MD; Dr. Obie Funk MD ~ Signed ADDENDUM by Dr. Shorty Lea MD on 08/21/23 at 1244 Patient could not go yesterday as it was evening. 08/21/23 1244<Electronically signed by Shorty Lea MD>Shorty Lea MD cc: PASTORA Adame; Dr. Patrice Watkins DO; Dr. Amaris Marks MD; Dr. Obie Funk MD ~* Signed [facility] Work Phone: 1([phone]) 765-667112-05-2023 Progress note Author Amaris [facility] August 19, 2023 3:39pm Note Date/Time August 19, 2023 1 1:07am [facility] Medical Records Department [address] [place] [address] Progress Note 08/19/23 1105 MR#: [id number] Acct: [id number] Name: QUINCY CALDWELL Rep #:[id number] : 1960 63 From: Amaris Marks MD PCP: PASTORA Luz tus:ADM IN Location: [id number] Subjective Subjective Patient seen and examined. He [...] (Auto) 76.7 H, Lymph % (Auto) 10.8L, Gage % (Auto) 9.4, Eos % (Auto) 2.3, Baso % (Auto) 0.2, Absolute Neuts (auto)3.7, Absolute Lymphs (auto) 0.52 L, Nucleated RBC % 0, Platelet Estimate SLT DEC Rhythm Strip Rhythm Strip: Sinus Rhythm Rate: [...] awaiting placement Charges/Coding Visit Charges Inpatient E&M: 18283 [facility] Hosp L2 08/19/23 1539 <Electronically signed by Amaris Marks MD> Amaris Marks MD Cosigner Signature (if applicable): CC: ~ Signed [facility] Work Phone: 1(265) 718-201712-04-2023 Progress note Author [facility] August 18, 2023 3:45pm Note Date/Time August 18, 2023 1 1:53am [facility] Medical Records Department [address] [place] [address] Progress Note 08/18/23 1149 MR#: [id number] Acct: [id number] Name: QUINCY CALDWELL Rep #:[id number] : 1960 63 From: Amaris Marks MD PCP: Sofia Edgar Wendi, INTELLECTUAL PROPERTY COUNSEL-C Sta tus:ADM IN Location: MS3 [id number] Subjective Subjective Patient seen and examined. He [...] 77.8 H, Lymph % (Auto) 10.1 L, Gage % (Auto) 9.3, Eos % (Auto) 1.8, Baso % (Auto) 0.5, Absolute Neuts (auto) 3.0, Absolute Lymphs (auto) 0.39 L, Nucleated RBC % 0, DifferentialComment COMMENT, Diff Path Review May , Sodium 132 L, Potassium 3.8, Chloride 105, [...] with PT/OT. Charges/Coding Visit Charges Inpatient E&M: 92496 Subs Hosp L2 08/18/23 1545 <Electronically signed by Amaris Marks MD> Amaris Marks MD Cosigner Signature (if applicable): CC: ~ Signed [facility] Work Phone: 1(274) 343-574912-04-2023 Progress note Author Mel Tipton [facility] August 18, 2023 11:06am Note Date/Time August 18, 2023 1 0:43am [facility] Medical Records Department [address] [place] [address] Progress Note - Orthopedic 08/18/23 1033 MR#: [id number] Acct: [id number] Name: QUINCY CALDWELL Rep #:[id number] : 1960 63 From: Mel MATT PCP: PASTORA Luz tus:ADM IN Location: [address] Subjective Subjective Insert postop subjective patient is [...] 77.8 H, Lymph % (Auto) 10.1 L, Gage % (Auto) 9.3, Eos % (Auto) 1.8, [...] Cosigner Signature (if applicable): CC: ~ Signed [facility] Work Phone: 1(419) 466-111312-03-2023 Progress note Author Amaris [facility] August 17, 2023 1:47pm Note Date/Time August 17, 2023 1 0:42am [facility] Medical Records Department [address] [place] [address] Progress Note 08/17/23 1039 MR#: [id number] Acct: [id number] Name: QUINCY CALDWELL Rep #:[id number] : 1960 63 From: Amaris Marks MD PCP: PASTORA Luz tus:ADM IN Location: [address] Subjective Subjective Patient seen and examined. He [...] GFR (MDRD) Non-Af 86, BUN/Creatinine Ratio 10.5, Woeqbeg934 H, Calcium 8.2 L, Total Bilirubin 0.50, AST 24, ALT 22, Alkaline Vynjnlrvtbu05, Total Protein 6.3 L, Albumin 3.3, Globulin [...] 80.3 H, Lymph % (Auto) 10.3 L, Gage % (Auto) 7.7, Eos % (Auto) 1.1, [...] on lovenox Charges/Coding Visit Charges Inpatient E&M: 00038 Subs Hosp L2 08/17/23 1347 <Electronically signed by Amaris Marks MD> Amaris Marks MD Cosigner Signature (if applicable): CC: ~ Signed [facility] Work Phone: 1(473) 338-489112-03-2023 Procedure [facility] 08-17-2023 Consult note Author Litzy Terrazas [facility] August 17, 2023 10:09am Note Date/Time August 17, 2023 1 0:00am [facility] Medical Records Department [facility] [place] [address] Consultation 08/17/23 0953 MR#: [id number] Acct: [id number] Name: QUINCY CALDWELL Rep #:[id number] : 1960 63 From: Litzy MATT PCP: Sofia Adame, PASTORA German tus:ADM IN Location: [facility] DB520-3 Assessment & Plan Assessment/Plan (1) Closed fracture [...] is a 63 M who presented to [facility] yesterday August 16, 2023. He was involved in a work-related injury. 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 He was standing on the ground. He slipped twisted and landed on his right side. He had significant increased pain in his right hip was unable to stand or bear weight. He was taken to [facility] emergency department by squad. He states that he did not have [...] bilateral upper extremities that is not new. [facility] Medical History no medical history Home Medications [...] GFR (MDRD) Non-Af 86, BUN/Creatinine Ratio 10.5, Ldpkipz297 H, Calcium 8.2 L, Total Bilirubin 0.50, AST 24, ALT 22, Alkaline Dincsjuwhoe08, Total Protein 6.3 L, Albumin 3.3, Globulin [...] 80.3 H, Lymph % (Auto) 10.3 L, Gage % (Auto) 7.7, Eos % (Auto) 1.1, [...] Watkins DO; Dr. Obie Funk MD~ Signed [facility] Work Phone: 1(400) 900-242612-02-2023 Progress note Author [facility]aris [facility] August 16, 2023 2:54pm Note Date/Time August 16, 2023 1 2:43pm [facility] Medical Records Department [address] [place] [address] Progress Note 08/16/23 1237 MR#: [id number] Acct: [id number] Name: QUINCY CALDWELL Rep #:[id number] : 1960 63 From: Amaris Marks MD PCP: PASTORA Luz s:ADM IN Location: [address] Subjective Subjective Patient seen and examined. He [...] % (Auto) 54.0, Lymph % (Auto) 27.6, Gage % (Auto) 13.6 H, Eos % (Auto) [...] Signed: Darnell Olsen MD at 6:38 EST , Hip/Pelvis X-Ray 08/16/23 05:45 IMPRESSION: Mildly impacted right femoral neck fracture. Electronically Signed: Darnell Olsen MD at 6:40 EST , Rhythm Strip Rhythm Strip: Sinus [...] start lovenox Charges/Coding Visit Charges Inpatient E&M: 06797 Subs Hosp L2 08/16/23 1451 <Electronically signed by Amaris Marks MD> Amaris Marks MD Cosigner Signature (if applicable): CC: ~ Signed [facility] Work Phone: 1(175) 929-559512-02-2023 History and physical note Author Patrice Watkins [facility] August 16, 2023 6:38am Note Date/Time August 16, 2023 6 :38am [facility] Medical Records Department [address] [place] [address] H&P Exam - Hospitalist 08/16/23 0631 MR#: [id number] Acct: [id number] Name: QUINCY CALDWELL Rep #:[id number] : 1960 63 From: Patrice Watkins DO PCP: Sofia Admae, MATT-C [facility] tus:ADM IN Location: MS3 JA888-9 HPI - General General Date of Admission: [...] % (Auto) 54.0, Lymph % (Auto) 27.6, Gage % (Auto) 13.6 H, Eos % (Auto) [...] PASTORA Adame; Dr. Patrice Watkins DO~ Signed [facility] Work Phone: 1(370) 875-931912-02-2023 Discharge summary Author Tamir Allan [facility] August 16, 2023 6:11am Note Date/Time August 16, 2023 5 :10am [facility] Medical Records Department [address] [place] [address] Emergency Department Summary 08/16/23 MR#: [id number] Acct: [id number] Name: QUINCY CALDWELL Rep #:[id number] : 1960 63 From: Tamir Allan MD PCP: PASTORA Luz tus:REG ER Location: ED HPI History of Present Illness Chief Complaint: Lower Extremity Injury Informant: patient and EMS Narrative Narrative: Work-related injury, 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 PFS PFS Medical History no medical history no [...] motor deficits and no sensory deficits noted [place] Coma Scale: document GCS findings Spontaneous Obeys [...] with Dr. Funk who was on-call for [facility], with whom the patient isestablished, likely [...] % (Auto) 54.0 Lymph % (Auto) 27.6 Gage % (Auto) 13.6 H Eos % (Auto) [...] Management Discussion w/another healthcare provider: Hospitalist and Semiconductor Processor ([facility]) Discharge Plan Dx/Rx/DC Orders Clinical Impression: Fall from slipping on wet surface, Closed fracture of right hip Disposition Disposition: Acute Care Hospital [facility] What to do if you have Problems For any increased pain, shortness of breath, bleeding, nausea or vomiting, chestpain, or any unexpected problems, contact your Primary Care Provider. Call [facility] ([phone]) or report to the closest Emergency Room. Call 911 if necessary. 08/16/2311 <Electronically signed by Tamir Allan MD> Cosigner Signature (if applicable): CC: PASTORA Adame ~ Signed [facility] Work Phone: 1(762) 971-655408-29-2023 Hospital Discharge instructions Patient Education 05/13/2023 10:45:37 [...] local community. Calling the smokefree.gov counselor helpline: 7-724-Zbuh-Now ( ) Where to find more information You may find more information about quitting smoking from: HelpGuide.org: www.helpguide.org Smokefree.gov: smokefree.gov [place] Lung Association: www.lung.org Contact a health care [...] 09/16/2017 Document Revised: 10/21/2018 Document Reviewed: 09/16/2017 [employer] Patient Education 2020 [employer]. Follow Up Care 05/09/2023 08:43:02 With:ERNESTO ADAME DO, Orthopedic Address: [address] [place] [address], [address] [facility] [place] [address]- [phone] When:06/02/2023 09:00:00 Comments:This is your post-op appointment. Follow-up as scheduled. [facility] 08-29-2023 Note Discharge Instructions Thank you for allowing [facility] to assist you with your healthcare needs. [...] not take any medications, herbal, prescription, or xayh-rqf-eldgfrp unless prescribed for the next 12 weeks [...] your post-op appointment. Follow-up as scheduled. Where: [address] [facility], [address] [facility] [place] [place] [address]- [phone] Allergies NKA Medications Please ask your primary doctor or pharmacist before taking any other medication not listed, including over the counter drugs, herbal medications, vitamins and or supplements as they may interact withyour home medications. What How Much When Why Instructions Last Dose Changed acetaminophen-hydrocodone (Holland 325- 5 mg oral tablet) 1 tab(s) by mouth Every 6 hours as needed for for pain Cervical spondylosis Duration: 7 Days Pickup at [facility] none given today Changed acetaminophen-hydrocodone (Holland 325- 5 mg oral tablet) 1 tab(s) by mouth Every 4 hours as needed for Pain, scale 4-6 Pharmacy Information [facility]: [address] [place], [place] [id number] [phone] What How Much When Comments Stop Taking [...] local community. Calling the smokefree.gov counselor helpline: 4-878-Gdai-Now ( ) Where to find more information You may find more information about quitting smoking from: HelpGuide.org: www.helpguide.org Smokefree.gov: smokefree.gov [place] Lung Association: www.lung.org Contact a health care [...] 09/16/2017 Document Revised: 10/21/2018 Document Reviewed: 09/16/2017 [employer] Patient Education 2020 [employer] Additional Information VACCINATE! IT SAVES LIVES! Members of the community who have not yet received the COVID-19 vaccine and would like to receive it can visit one of [facility] vaccine clinics. There are many vaccine clinic locations within the [facility]. For locations and available times, please visit https://gettheshot.coronavirus.[place].gov/. It is important to note that some COVID mobile vaccine clinics are held outdoors and may be canceled in rainy or stormy conditions. To learn more about pediatric vaccinations (ages 5-11), we invite you to visit the [facility] webpage. https://www.[employer]ationals.org/pages/9837-Exvqw-Rdizqgkmoii-Mjcbihehcn-Ipbbk-Ave stions.htmlTo learn more about the COVID-19 vaccine, we invite you to visit the CDC website for a list of frequently asked questions.https://www.cdc.gov/coronavirus/2019-ncov/vaccines/faq.html [facility] Patient Portal Access Instructions: Stay connected with your healthcare team and access your personal medical information anytime with the [facility] Patient Portal. Please follow the directions below to create your [facility] account: 1.Access the email account you provided upon registration to the hospital/physician office.2.Look for an invitation email from [facility].3.Open the email and access the invitation link: AcceptInvitation to [facility].4.Fill in the required oswald to create your account. To access your account, visit [employer]. Click the blue button labeled Access Patient [...] who you will allowto register on the [facility] Patient Portal for access to your information. You can also access the [facility] Patient Portal on the ZAPITANOwhere kush. Simply click on Patient Portal and then log into your account. If you would like to receive a full copy of your medical records, please contact the [facility] Medical Records Department by calling [phone], Friday through Friday between 8 a.m. and [...] Call your local pharmacy or go to [email or web address].QuNano/[email or web address] to find one close to you.3.Make use of household items: Use cat litter or old coffee grounds to dispose medications if other options arenot available. Mix your drugs with these household products, seal them in an airtight container andthrow it into the garbage. Call [facility]: [phone] to be sure your drugs can be [...] been reviewed and explained to me and I,IQRA KIM Koki understand my current condition and have read and understand these discharge instructions. I have received a written copy of the plan/instructions. If I have questions, I am aware that I should contact my doctor. Patient/Supervisor Quality Control Signature: Date/Time: Relationship to Patient: Witness Name/Signature: Date/Time: [facility]08-29-2023 Note Date of Service 05/13/2023 [...] and treat - cleared for d/c home. *services delivery driver following for discharge planning needs. 2. Hypertension [...] medications, discussing plan of care with nursing, social work program coordinator, and therapy,examining patient, collaborating with physician, and documenting in chart. Digitally Signed by YULI ROMAN on 05/13/2023 10:54 AM [facility]08-28-2023 Note ORIGINAL Images acquired, not reported on this accession number.[facility]08-28-2023 Anesthesiology Consult note Patient: KIM CALDWELL Age: 63 years Sex: Male : 1960 Associated Diagnoses: None Author: ABIEL POST APRN-INSIDE SALES SUPERVISOR Assessment Postanesthesia assessment Vitals: Vital signs from [...] by ABIEL POST on 05/12/2023 01:14 PM [facility]08-28-2023 Anesthesiology Consult note Patient: KIM [...] Intravenous, Stop: 05/13/23 17:59:00 EDT Prescriptions Prescribed Holland 325- 5 mg oral tablet: 1 tab(s), [...] tendinitis of right shoulder / SNOMED CT 683866930485770 / Confirmed Chronic coughing / SNOMED CT 669816788 / Confirmed Abnormal finding on CT scan of Abd. / SNOMED CT 9014984264 / Confirmed Intestinal malrotation / SNOMED CT 35184553 / Confirmed Falling episodes / SNOMED CT 540731148 / Confirmed GERD (gastroesophageal reflux disease) / SNOMED CT 654438609 / Confirmed Abnormal upper gastrointestinal barium series / SNOMED CT 2311180067 / Confirmed Balance problem / SNOMED CT 7113985619 / Confirmed Numbness or tingling / SNOMED CT 4579210096 / Confirmed Over weight / SNOMED CT 961410754 / Confirmed Pain of shoulder with external rotation / SNOMED CT 911195116 / Confirmed Hepatic steatosis / SNOMED CT 669949759 / Confirmed, Active Problems (13) Abnormal finding on CT scan of Abd. Abnormal upper gastrointestinal barium series Balance problem Calcific tendinitis of right shoulder Chronic coughing Falling episodes GERD (gastroesophageal reflux disease) Hepatic steatosis Intestinal malrotation Numbness or tingling Over weight Pain of shoulder with external rotation Tobacco use (smoker) Histories Family History: Vandana's chorea Mother Sister Alzheimer disease Father Procedure history: Cervical spinal fusion by anterior technique ([id number]) on 05/12/2023 at 63 Years. Excision of cataract ([id number]). Comments: 05/09/2023 13:52 EDT - Armida Tai RN bilateral Social History Social & Psychosocial Habits Alcohol 05/12/2023Risk Assessment: High Risk 05/12/2023 Use: Current Type: Beer Frequency: Daily Maximum drinks per episode in last year: 6 Comment: 04-24 cesar - 06/24/2018 10:40 - LESA Lomeli Substance Abuse 05/12/2023Risk Assessment: Denies Substance Abuse 05/12/2023 Use: Never Tobacco 05/12/2023 Tobacco Use: 10 or more cigarettes (1/ Exposure to Tobacco Smoke Lives in non-smoking home Type: Cigarettes Number of years: 40 Home/Environment 05/12/2023 Domestic Concerns None Living situation: Home/Independent Primary Communications Lead: Self Current Home Treatments None Special Services [...] Signs(last 24 hrs) Last Charted Heart Rate Uxcmwkwlv97 bpm (MAY 12 12:00) Resp Rate 18 br/min (MAY 12 10:32) SBP76 mmHg (MAY 12 11:57) DBP58 mmHg (MAY 12 11:57) BMI24.82 (MAY 12 10:16) Measurements from flowsheet : Measurements 05/12/2023 10:16 EDT Height 175 cm Height in inches 68.9 inch(es) Admission Weight 76 kg Weight Lbs 167.2 lb [place] Body Weight 70.46 kg BSA Admission 1.91 [...] 05/12/2023 11:54 05/12/2023 11:56 EDT SN - MD - Medication MARCAINE BUPIVACAINE 0.25% 30ML SN - MD - Route of Administration Local SN - MD - By (Single) SN - MD - By (Single) 05/12/2023 11:55 EDT Heart [...] Attendee SN - CAt - Role Performed Tree Climber 05/12/2023 11:21 EDT SN - CTm - [...] - CAt - Role Performed Cell Saver Clinical Counselor SN - CAt - Role Performed Local [...] Attendee SN - CAt - Role Performed District Claims Manager 1 SN - CAt - Role Performed MARCELO 05/12/2023 10:47 EDT SN - CAt - [...] Surgeon SN - CAt - Role Performed Woodworker Helper 1 SN - CAt - Role Performed Black Jack Dealer SN - CAt - Role Performed Scrub [...] Allergies No Anesthesia Extension Set Applied Yes Furnace Puncher On Yes Consent Form Signed Yes Patient [...] EDT Designated Person #1 We May Share PHI Abril Suarez [phone] Designated Person #1 Relationship Friend Privacy Restrictions Requested None Height 175 cm Height in inches 68.9 inch(es) Admission Weight 76 kg Weight Lbs 167.2 lb [place] Body Weight 70.46 kg BSA Admission 1.91 [...] Method Explanation, Printed materials Preferred Spoken Language Polish Preferred Written Language Polish Teaching Evaluation No further teaching needed Safety Brochure Information Reviewed Yes Jayda Castro Video Viewed No Information Given by Patient [...] Note-Nursing Patient History (AO) 05/12/2023 7:28 EDT Venancio GARSIA . Assessment and Plan Citizen [place] Society of Anesthesiologists (ASA) physical status classification: Class III. Anesthetic Preoperative Plan Anesthetic technique: General. Informed consent: signed by patient. Digitally Signed by ABIEL POST on 05/12/2023 12:08 PM [facility]04-08-2021 NoteHNO ID: [id number] Author: Clover Rico (Pa) Service: ? Author Type: Physician Ginner Helper Type: Progress Notes Filed: 12/21/2020 1:24 PM Note Text: This note was created using [employer]. Subjective Kim Caldwell is a 60 year [...] Outpatient Medications Medication Sig Dispense Refill - Lcbuhtvsycdljsm-Ltxtpspcx-AI (BROMFED DM) 2-30-10 mg/5 mL syrup Take [...] CORONAVIRUS - XR CHEST 2V FRONTAL/LAT [facility]21 NoteHNO ID: [id number] Author: Marylou Kaiser (RtLeonard Nunez Service: Radiology Author Type: Membership Solicitor Type: Progress Notes Filed: 12/21/2020 1:05 PM [...] BY: RT Melchor December 21, 2020 1:05 [facility]04-08-2021 History of Present illness Narrative* Marylou Buckner (Rt), Tech - 12/21/2020 1:00 PM EDT Radiology Service [...] 1:05 PM [facility] Author Jack Gonzales [facility] Note Date/Time January 24, 2025 6:33p [facility] Medical Records Department [address] [place] [address] Counseling Note - Pharmacy 01/24/25 1640 MR#: [id number] Acct: [id number] Name: IKM CALDWELL Rep #:[id number] : 1960 64 From: Jack Gonzales PCP: Dr. Emanuel Macedo MD Status:ADM I N Y Location: [place] [address] Pharmacy [place] Med Reconciliation Pharmacy Service has performed discharge [...] signed by Jack davis> Date _ Jack Billings Signature (if applicable): Date CC: ~ Signed [facility] Work Phone: Discharge summary Author Tamir Allan [facility] August 16, 2023 6:11am Note Date/Time August 16, 2023 5 :10am [facility] Medical Records Department [address] [place] [address] Emergency Department Summary 08/16/23 MR#: [id number] Acct: [id number] Name: QUINCY CALDWELL Rep #:[id number] : 1960 63 From: Tamir Allan MD PCP: PASTORA Luz Sta tus:REG ER Location: ED HPI History of Present Illness Chief Complaint: Lower Extremity Injury Informant: patient and EMS Narrative Narrative: Work-related injury, 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 Funk who was on-call for [facility], with whom the patient isestablished, likely to take him to the OR tomorrow morning and requesting hospitalist admission. Lab Data Attestation: I reviewed the patient's lab results. Labs: Laboratory Results - last 24 hr 08/16/23 05:14 WBC 4.4 RBC 3.08 L Hgb 10.1 L Hct 27.5 L MCV 89.3 MCH 32.8 H MCHC 36.7 H RDW Std Deviation 42.5 RDW Coeff of Daiel 13.1 Plt Count 171 MPV 8.8 Immature Gran % (Auto) 0.500 Neut % (Auto) 54.0 Lymph % (Auto) 27.6 Gage % (Auto) 13.6 H Eos % (Auto) [...] Management Discussion w/another healthcare provider: Hospitalist and Semiconductor Processor ([facility] orth[facility]) Discharge Plan Dx/Rx/DC Orders Clinical Impression: Fall from slipping on wet surface, Closed fracture of right hip Disposition Disposition: Acute Care Hospital [facility] What to do if you have Problems For any increased pain, shortness of breath, bleeding, nausea or vomiting, chestpain, or any unexpected problems, contact your Primary Care Provider. Call [facility] ([phone]) or report to the closest Emergency Room. Call 911 if necessary. 08/16/23 0611 <Electronically signed by Tamir Allan MD> Cosigner Signature (if applicable): CC: PASTORA Adame ~ Signed [facility] Work Phone: Evaluation + Plan note No data available for this section [facility] Evaluation note* Diagnosis Onset Date Resolution Status Closed fracture of right hip acute Fall from slipping on wet surface acute Hypokalemia acute [facility] Work Phone: Evaluation note* Diagnosis Onset Date Resolution Status Closed fracture of right hip acute Contusion of right shoulder acute Fall from slipping on wet surface acute Hypokalemia acute S/P total hip arthroplasty a cute [facility] Work Phone: Evaluation note* Diagnosis Fever, unspecified fever cause documented [facility] this [facility] Author Patrice Watkins [facility] August 16, 2023 6:38am Note Date/Time August 16, 2023 6 :38am [facility] Medical Records Department [address] [place] [address] H&P Exam - Hospitalist 08/16/23 0631 MR#: [id number] Acct: [id number] Name: QUINCY CALDWELL Rep #:[id number] : 1960 63 From: Patrice Watkins DO PCP: PASTORA Luzs:ADM IN Location: [facility] [id number] HPI - General General Date of Admission: [...] % (Auto) 54.0, Lymph % (Auto) 27.6, Gage % (Auto) 13.6 H, Eos % (Auto) [...] applicable): CC: PASTORA Adame; Dr. Patrice Watkins, ~ Signed [facility] Work Phone: Hospital Discharge instructions No data available for this section [facility] Progress note No data available for this section [facility] Reason for referral (narrative)No reason for referral information [facility]Ke[facility] Work Phone: Summary Purpose Family History No Family History Records Found Relationship Condition Age at Onset Recorded Date/T celso mother [place]'s disease Unknown father Leukemia Unknown Advance Directives No Advanced Directives Records Found Advance Directive Response Recorded Date/ Time Living Will No August 16 5:12am Power of Equipment Monitor Phototypesetting No August 16, 2023 5:12am Advance Directive Response Recorded Date/ Time Living Will No August 16 7:03am Power of Equipment Monitor Phototypesetting No August 16, 2023 7:03am Advance Directive Response Recorded Date/ Time Do you have a Healthcare Power of Equipment Monitor Phototypesetting? No January 19, 2025 11:53am Chief Complaint [...] section and content) DATE CREATED AUTHOR 10/24/2021 [facility] DATE CREATED AUTHOR 'S ORGANIZ ATION 05/19/2024 [facility] DATE CREATED AUTHOR AUTHOR'S ORGANIZ ATION 05/23/2024 [facility] DATE CREATED AUTHOR AUTHOR'S ORGANIZ ATION 02/17/2025 [facility] Patient Care team informatio n (unrecognized section and content) Team Status: Active Member Role Status Dates Sofia Adame INTELLECTUAL PROPERTY COUNSEL, INTELLECTUAL PROPERTY COUNSEL-C Primary Care Provider Active Team Status: Active Member Role Status Dates Sofia Adame INTELLECTUAL PROPERTY COUNSEL, INTELLECTUAL PROPERTY COUNSEL-C Primary Care Provider Active Dr. Tamir Allan MD Emergency Provider Active Dr. Patrice Watkins DO Admit Provider, At tending Provider, Referring Provider Active Team Status: Active Member Role Status Dates Sofia Adame INTELLECTUAL PROPERTY COUNSEL, INTELLECTUAL PROPERTY COUNSEL-C Primary Care Provider Active Dr. Tamir Allan MD Emergency Provider Active Dr. Patrice Watkins DO Admit Provider, At tending Provider, Other Provider Active Team Status: Active Member Role Status Dates Sofia Adame INTELLECTUAL PROPERTY COUNSEL, INTELLECTUAL PROPERTY COUNSEL-C Primary Care Provider Active Dr. Tamir Allan MD Emergency Provider Active Dr. Patrice Watkins DO Admit Provider, Re ferring Provider, Other Provider Active Dr. Amaris Marks MD Attending Provider, Other Prov ider Active Dr. Obie Funk MD Other Provider Active Team Status: Active Member Role Status Dates Sofia Adame INTELLECTUAL PROPERTY COUNSEL, INTELLECTUAL PROPERTY COUNSEL-C Primary Care Provider Active Dr. Tamir Allan MD Emergency Provider Active Dr. Patrice Watkins DO Admit Provider, Re ferring Provider, Other Provider Active Dr. Obie Funk MD Other Provider Active Dr. Shorty Lea MD Attending Provider, Other Provi susan Active Dr. Amaris Marks MD Other Provider Active Team Status: Inactive Member Role Status Dates Sofia Adame INTELLECTUAL PROPERTY COUNSEL, INTELLECTUAL PROPERTY COUNSEL-C Primary Care Provider Active Dr. Tamir Allan [...] or prosecute any alcohol or drug abuse patient.[facility] FOR RECORDS PERTAINING TO PATIENTS WHO [...] BE BASED ON THE PRIMARY CLINICAL RECORDS. [facility] [employer] [facility]. provides no warranty or guarantee of the accuracy or completeness of information in this document.
--- OUTSIDE RECORDS SUMMARY | 2025-02-21 04:44 | XMS RPT_ITS | CCD ---
Author Organization [facility] Care Team Providers Care Catheterization Laboratory Technician Name Role Phone WENDI Soria CNP, SOFIA Knight Primary Care Phys ician Wendi BROWNFIELD PROGRAM COORDINATOR, BROWNFIELD PROGRAM COORDINATOR-C Sofia Hernández Primary Care Pr ovider Dr. Tamir Allan Emergency Provider [phone] Dr. Patrice Watkins Admit Provider Dr. Patrice Watkins Attending Provider Dr. Patrice Watkins Other Provider Dr. Patrice Watkins Referring Provider Dr. Amaris Marks Attending Provider Dr. Amaris Marks Other Provider Dr. Obie Funk Other Provider Dr. Shorty Lea Attending Provider Dr. Shorty Lea Other Provider [phone] OBIE FUNK MD Attending Unavailable WENDI PLATT - APPELLATE LAW CLERK, SOFIA Knight [facility] ERNESTO Soares DO Attending Unavailable WENDIPILY PLATT - APPELLATE LAW CLERK, SOFIA Knight [facility] OBIE Valdez MD Attending Unavailable WENDI PALTT - APPELLATE LAW CLERK, SOFIA Knight [facility] SERGIO Mcrae MD Attending Unavailable WENDI PLATT - APPELLATE LAW CLERK, SOFIA Knight [facility] U lily ADAME APRN - [place], SOFIA Knight Primary [facility] U SERGIO Mcrae MD Attending Unavailable Unavailable Primary Care Provider Unavailangel Macedo MD, Dr. Emanuel Chi Primary Care Provider [phone] Rolando MONTERO, Dr. Ragland Attending Provider Marilyn [...] tablet (4 sources) Opioid Agonist Start: 05-13-2023 Lorimor 325- 5 mg oral tablet Dose = 1 tab(s), Oral, q4h, PRN Pain, scale 4-6, 0 Refill(s), 76 Start Date: 05/13/23 Status: Ordered Start: 05-12-2023 End: 05-19-2023 take 1 tablet by mouth every six hours as needed for pain Lorimor 325- 5 mg oral tablet Dose = 1 tab(s), Oral, q6h, PRN for pain, X 7 day(s), # 28 tab(s), 0 Refill(s), Pharmacy: [id number], Cervical spondylosis, 175, cm, 05/12/23 10:16:00 [...] oral solution (1 source) alpha-Adrenergic Agonist, Uncompetitive P-bwqzvj-Y-asparta te Receptor Antagonist, Sigma-1 Agonist Start: 10-15-2019 [...] 20, 2023 1:00am April 21, 2024 12:39pm Qvnk-vad-sdjtekn. 1000 mg every 8 hourly for 1 week and then as needed for 6 moderate to severe pain. Start: 08-20-2023 Acetaminophen Active 1000 MG PO EVERY 8 HOURS August 20, 2023 12:00am Ppci-lus-qtqcusm. 1000 mg every 8 hourly for 1 [...] 12:39pm docusate sodium 50 mg / sennosides, group home 8.6 mg oral tablet (3 sources) Start: 08-20-2023 End: 04-21-2024 Sennosides-Docusate Sodium (Stool Softener-Stimulant Laxat) 8.6-50 mg Tablet Discontinued 2 {tbl} PO TWICE A DAY August 20, 2023 1:00am April 21, 2024 12:39pm Idcg-tlw-syzyytl. Labetalol (1 source) beta-Adrenergic Nikki Start: 05-12-2023 [...] mg for severe pain. polyethylene glycol 3350 02048 mg powder for oral solution (3 sources) [...] resolved with abstinence while [facility] in a [facility] for [facility]. Deficiency and other anemia [...] )on 02-16-2025 BUN/CRE 17.6 RATIO Normal 10-20 [facility] Comment on above: Performed By: #### L 500.2500, L100.0500 ####[facility] [address] [place], [address] Calcium [Mass/Vol] 9.0 mg/dL Normal 7.6-11.0 [facility] Comment on above: Performed By: #### L 500.2500, L100.0500 ####[facility] [address] [place], [address] Chloride [Moles/Vol] 101 mmol/L Normal 98-108 [facility] Comment on above: Performed By: #### L 500.2500, L100.0500 ####[facility] [address] [place], [address] CO2 [Moles/Vol] 21.2 mmol/L Normal 21.0-32.0 [facility] Comment on above: Performed By: #### L 500.2500, L100.0500 ####[facility] [address] [place], [address] Creatinine [Mass/Vol] 1.20 mg/dL Normal 0.70-1.20 [facility] Comment on above: Performed By: #### L 500.2500, L100.0500 ####[facility] [address] [place], [address] GAP 9 Normal 5-15 [facility] Comment on above: Performed By: #### L 500.2500, L100.0500 ####[facility] [address] [place], [address] GFR/1.73 sq M.predicted among non-blacks MDRD (S/P/Bld) [Vol rate/Area] 68 mL/min/{1.73_m2} Normal >60 [facility] Comment on above: Result Comment: mL/m in/1.73m2 CKD-EPI Creatinine Equation (2020) Performed By: #### L 500.2500, L100.0500 ####[facility] [address] [place], [address] Glucose [Mass/Vol] 125 mg/dL High 70-99 [facility] Comment on above: Performed By: #### L 500.2500, L100.0500 ####[facility] [address] [place], [address] Potassium [Moles/Vol] 4.8 mmol/L Normal 3.3-5.1 [facility] Comment on above: Performed By: #### L 500.2500, L100.0500 ####[facility] [address] [place], [address] Sodium [Moles/Vol] 132 mmol/L Low 133-145 [facility] Comment on above: Performed By: #### L 500.2500, L100.0500 ####[facility] [address] [place], [address] Urea nitrogen [Mass/Vol] 21 mg/dL High 4-19 [facility] Comment on above: Performed By: #### L 500.2500, L100.0500 ####[facility] [address] [place], [address] CBC-Complete Blood Cnt No Di ffon 02-16-2025 Erythrocyte distribution width (RBC) [Ratio] 16.2 % High 11.6-14.6 [facility] Comment on above: Performed By: #### L 500.2500, L100.0500 ####[facility] [address] [place], [address] Hematocrit (Bld) [Volume fraction] 24.1 % Low 40-54 [facility] Comment on above: Performed By: #### L 500.2500, L100.0500 ####[facility] [address] [place], [address] Hemoglobin (Bld) [Mass/Vol] 8.0 g/dL Low 13.0-16.5 [facility] Comment on above: Performed By: #### L 500.2500, L100.0500 ####[facility] [address] [place], [address] MCH (RBC) [Entitic mass] 32.0 pg Normal 27.0-32.0 [facility] Comment on above: Performed By: #### L 500.2500, L100.0500 ####[facility] [address] [place], [address] MCHC (RBC) [Mass/Vol] 33.2 g/dL Normal 32-36 [facility] Comment on above: Performed By: #### L 500.2500, L100.0500 ####[facility] [address] [place], [address] MCV (RBC) [Entitic vol] 96.4 fL High 80-94 [facility] Comment on above: Performed By: #### L 500.2500, L100.0500 ####[facility] [address] [place], [address] Platelet mean volume (Bld) [Entitic vol] 9.7 fL Normal 6.2-12.0 [facility] Comment on above: Performed By: #### L 500.2500, L100.0500 ####[facility] [address] [place], [address] Platelets (Bld) [#/Vol] 207 10*3/uL Normal 150-450 [facility] Comment on above: Performed By: #### L 500.2500, L100.0500 ####[facility] [address] [place], [address] RBC (Bld) [#/Vol] 2.50 10*6/uL Low 4.6-6.2 [facility] Comment on above: Performed By: #### L 500.2500, L100.0500 ####[facility] [address] [place], [address] RDW SD 57.4 fl High 35.1-43.9 [facility] Comment on above: Performed By: #### L 500.2500, L100.0500 ####[facility] [address] [place], [address] WBC (Bld) [#/Vol] 5.2 10*3/uL Normal 4.4-11.0 [facility] Comment on above: Performed By: #### L 500.2500, L100.0500 ####[facility] [address] [place], [address] Oncology Visit Reporton 01-14 Oncology Visit Report Normal [facility] Absolute lymphocyte countOrd ered By: Michelle Loco on 02-09-2025 Lymphocytes Auto (Unsp spec) [#/Vol] 1.18 10*3/uL 0.83-4.51 [facility] Absolute neutrophil countOrd ered By: Michelle Loco on 02-09-2025 Neutrophils (Bld) [#/Vol] 2.6 10*3/uL 2.0-7.7 [facility] Anion gap in Serum or Plasma Ordered By: Michelle Loco on 02-09-2025 Anion gap [Moles/Vol] 10 mmol/L 5-15 [facility] Automated lymphocyte count a s percentage of total leukocytesOrdered By: Michelle Loco on 02-09-2025 Lymphocytes/100 WBC Auto (Unsp spec) 26.9 % 19-41 [facility] BUN/creatinine ratioOrdered By: Michelle Loco on 02-09-2025 Urea nitrogen/Creatinine [Mass ratio] 17.8 mg/mg 10-20 [facility] Basic Metabolic Profile (BMP )on 02-09-2025 BUN/CRE 17.8 RATIO Normal - [facility] Comment on above: Order Comment: 212 Performed By: #### L 500.2500, L100.0100, L501.2300, L501.5200 ####[facility] [address] [place], [address] Calcium [Mass/Vol] 8.8 mg/dL Normal 7.6-11.0 [facility] Comment on above: Order Comment: 212 Performed By: #### L 500.2500, L100.0100, L501.2300, L501.5200 ####[facility] [address] [place], [address] Chloride [Moles/Vol] 102 mmol/L Normal 98-108 [facility] Comment on above: Order Comment: 212 Performed By: #### L 500.2500, L100.0100, L501.2300, L501.5200 ####[facility] [address] [place], [address] CO2 [Moles/Vol] 21.6 mmol/L Normal 21.0-32.0 [facility] Comment on above: Order Comment: 212 Performed By: #### L 500.2500, L100.0100, L501.2300, L501.5200 ####[facility] [address] [place], [address] Creatinine [Mass/Vol] 1.30 mg/dL High 0.70-1.20 [facility] Comment on above: Order Comment: 212 Performed By: #### L 500.2500, L100.0100, L501.2300, L501.5200 ####[facility] [address] [place], [address] GAP 10 Normal 5-15 [facility] Comment on above: Order Comment: 212 Performed By: #### L 500.2500, L100.0100, L501.2300, L501.5200 ####[facility] [address] [place], [address] GFR/1.73 sq M.predicted among non-blacks MDRD (S/P/Bld) [Vol rate/Area] 62 mL/min/{1.73_m2} Normal >60 [facility] Comment on above: Order Comment: 212 Result Comment: mL/m in/1.73m2 CKD-EPI Creatinine Equation (2020) Performed By: #### L 500.2500, L100.0100, L501.2300, L501.5200 ####[facility] [address] [place], [address] Glucose [Mass/Vol] 120 mg/dL High 70-99 [facility] Comment on above: Order Comment: 212 Performed By: #### L 500.2500, L100.0100, L501.2300, L501.5200 ####[facility] [address] [place], [address] Potassium [Moles/Vol] 4.7 mmol/L Normal 3.3-5.1 [facility] Comment on above: Order Comment: 212 Performed By: #### L 500.2500, L100.0100, L501.2300, L501.5200 ####[facility] [address] [place], [address] Sodium [Moles/Vol] 134 mmol/L Normal 133-145 [facility] Comment on above: Order Comment: 212 Performed By: #### L 500.2500, L100.0100, L501.2300, L501.5200 ####[facility] [address] [place], [address] Urea nitrogen [Mass/Vol] 23 mg/dL High 4-19 [facility] Comment on above: Order Comment: 212 Performed By: #### L 500.2500, L100.0100, L501.2300, L501.5200 ####[facility] [address] [place], [address] Basophil percentageOrdered B y: Michelle Loco on 02-09-2025 Basophils/100 WBC (Bld) 0.5 % 0-1 [facility] CBC W/Diff, Automatedon 01-14 Absolute Lymph 1.18 X10 3/uL Normal 0.83-4.51 [facility] Comment on above: Order Comment: 212 Performed By: #### L 500.2500, L100.0100, L501.2300, L501.5200 ####[facility] [address] [place], [address] Absolute Neut 2.6 X10 3/uL Normal 2.0-7.7 [facility] Comment on above: Order Comment: 212 Performed By: #### L 500.2500, L100.0100, L501.2300, L501.5200 ####[facility] [address] [place], [address] Basophils/100 WBC (Bld) 0.5 % Normal 0-1 [facility] Comment on above: Order Comment: 212 Performed By: #### L 500.2500, L100.0100, L501.2300, L501.5200 ####[facility] [address] [place], [address] Eosinophils/100 WBC (Bld) 3.2 % Normal 0-5 [facility] Comment on above: Order Comment: 212 Performed By: #### L 500.2500, L100.0100, L501.2300, L501.5200 ####[facility] [address] [place], [address] Erythrocyte distribution width (RBC) [Ratio] 16.7 % High 11.6-14.6 [facility] Comment on above: Order Comment: 212 Performed By: #### L 500.2500, L100.0100, L501.2300, L501.5200 ####[facility] [address] [place], [address] Hematocrit (Bld) [Volume fraction] 23.8 % Low 40-54 [facility] Comment on above: Order Comment: 212 Performed By: #### L 500.2500, L100.0100, L501.2300, L501.5200 ####[facility] [address] [place], [address] Hemoglobin (Bld) [Mass/Vol] 7.8 g/dL Low 13.0-16.5 [facility] Comment on above: Order Comment: 212 Performed By: #### L 500.2500, L100.0100, L501.2300, L501.5200 ####[facility] [address] [place], [address] IG% 1.400 High 0.0-0.9 [facility] Comment on above: Order Comment: 212 Result Comment: IG% - Immature Granulocytes (promyelocytes, myelocytes andmetamyelocytes) > 1% indicates that a LEFT SHIFT is Present. Performed By: #### L 500.2500, L100.0100, L501.2300, L501.5200 ####[facility] [address] [place], [address] Lymphocytes/100 WBC (Bld) 26.9 % Normal 19-41 [facility] Comment on above: Order Comment: 212 Performed By: #### L 500.2500, L100.0100, L501.2300, L501.5200 ####[facility] [address] [place], [address] MCH (RBC) [Entitic mass] 31.8 pg Normal 27.0-32.0 [facility] Comment on above: Order Comment: 212 Performed By: #### L 500.2500, L100.0100, L501.2300, L501.5200 ####[facility] [address] [place], [address] MCHC (RBC) [Mass/Vol] 32.8 g/dL Normal 32-36 [facility] Comment on above: Order Comment: 212 Performed By: #### L 500.2500, L100.0100, L501.2300, L501.5200 ####[facility] [address] [place], [address] MCV (RBC) [Entitic vol] 97.1 fL High 80-94 [facility] Comment on above: Order Comment: 212 Performed By: #### L 500.2500, L100.0100, L501.2300, L501.5200 ####[facility] [address] [place], [address] Monocytes/100 WBC (Bld) 9.1 % Normal 0-10 [facility] Comment on above: Order Comment: 212 Performed By: #### L 500.2500, L100.0100, L501.2300, L501.5200 ####[facility] [address] [place], [address] Neutrophils/100 WBC (Bld) 58.9 % Normal 47-70 [facility] Comment on above: Order Comment: 212 Performed By: #### L 500.2500, L100.0100, L501.2300, L501.5200 ####[facility] [address] [place], [address] Nucleated RBC (Bld) [#/Vol] 0 10*3/uL Normal 0-5 [facility] Comment on above: Order Comment: 212 Performed By: #### L 500.2500, L100.0100, L501.2300, L501.5200 ####[facility] [address] [place], [address] Platelet mean volume (Bld) [Entitic vol] 9.9 fL Normal 6.2-12.0 [facility] Comment on above: Order Comment: 212 Performed By: #### L 500.2500, L100.0100, L501.2300, L501.5200 ####[facility] [address] [place], [address] Platelets (Bld) [#/Vol] 163 10*3/uL Normal 150-450 [facility] Comment on above: Order Comment: 212 Performed By: #### L 500.2500, L100.0100, L501.2300, L501.5200 ####[facility] [address] [place], [address] RBC (Bld) [#/Vol] 2.45 10*6/uL Low 4.6-6.2 [facility] Comment on above: Order Comment: 212 Performed By: #### L 500.2500, L100.0100, L501.2300, L501.5200 ####[facility] [address] [place], [address] RDW SD 59.5 fl High 35.1-43.9 [facility] Comment on above: Order Comment: 212 Performed By: #### L 500.2500, L100.0100, L501.2300, L501.5200 ####[facility] [address] [place], [address] WBC (Bld) [#/Vol] 4.4 10*3/uL Normal 4.4-11.0 [facility] Comment on above: Order Comment: 212 Performed By: #### L 500.2500, L100.0100, L501.2300, L501.5200 ####[facility] [address] [place], [address] Carbon dioxide, total [Moles /volume] in Central venous bloodOrdered By: Michelle Loco on 02-09-2025 CO2 [Moles/Vol] 21.6 mmol/L 21.0-32.0 [facility] Chloride assayOrdered By: Liborio Loco on 02-09-2025 Chloride [Moles/Vol] 102 mmol/L 98-108 [facility] Eosinophil percentageOrdered By: Michelle Loco on 02-09-2025 Eosinophils/100 WBC (Bld) 3.2 % 0-5 [facility] Erythrocyte distribution wid th ratioOrdered By: Michelle Loco on 02-09-2025 Erythrocyte distribution width (RBC) [Ratio] 16.7 % High 11.6-14.6 [facility] Erythrocyte distribution wid th standard deviationOrdered By: Michelle Loco on 02-09-2025 Erythrocyte distribution width (RBC) [Ratio] 59.5 fl High 35.1-43.9 [facility] Glomerular filtration rate ( GFR) estimation/1.73 sq m using serum, plasma, or whole bOrdered By: Michelle Loco on 02-09-2025 GFR/1.73 sq M.predicted among non-blacks MDRD (S/P/Bld) [Vol rate/Area] 62 mL/min/{1.73_m2} >60 [facility] Comment on above: mL/min/1.73m2 CKD-EP I Creatinine Equation (2020) Hematocrit Auto (Bld) [Volum e fraction]Ordered By: Michelle Loco on 02-09-2025 Hematocrit (Bld) [Volume fraction] 23.8 % Low 40-54 [facility] Hemoglobin measurementOrdere d By: Michelle Loco on 02-09-2025 Hemoglobin (Bld) [Mass/Vol] 7.8 g/dL Low 13.0-16.5 [facility] Immature granulocytes/100 WB C Auto (Bld)Ordered By: Michelle Loco on 02-09-2025 Immature granulocytes/100 WBC (Bld) 1.400 % High 0.0-0.9 [facility] Comment on above: IG% - Immature Granu locytes (promyelocytes, myelocytes and metamyelocytes) > 1% indicates that a LEFT SHIFT is Present. MCV (mean corpuscular volume ) determinationOrdered By: Michelle Loco on 02-09-2025 MCV (RBC) [Entitic vol] 97.1 fL High 80-94 [facility] Magnesiumon 02-09-2025 Magnesium [Mass/Vol] 1.7 mg/dL Normal 1.5-2.2 [facility] Comment on above: Order Comment: 212 Performed By: #### L 500.2500, L100.0100, L501.2300, L501.5200 ####[facility] [address] [place], [address] Magnesium measurement (mass/ volume)Ordered By: Michelle Loco on 02-09-2025 Magnesium (Unsp spec) [Mass/Vol] 1.7 mg/dL 1.5-2.2 [facility] Mean corpuscular hemoglobin (MCH) determinationOrdered By: Michelle Loco on 02-09-2025 MCH (RBC) [Entitic mass] 31.8 pg 27.0-32.0 [facility] Mean corpuscular hemoglobin concentration (MCHC) determinationOrdered By: Michelle Loco on 02-09-2025 MCHC (RBC) [Mass/Vol] 32.8 g/dL 32-36 [facility] Mean platelet volume determi nationOrdered By: Michelle Loco on 02-09-2025 Platelet mean volume (Bld) [Entitic vol] 9.9 fL 6.2-12.0 [facility] Monocyte percentageOrdered B y: Michelle Loco on 02-09-2025 Monocytes/100 WBC (Bld) 9.1 % 0-10 [facility] Neutrophil percentageOrdered By: Michelle Loco on 02-09-2025 Neutrophils/100 WBC (Bld) 58.9 % 47-70 [facility] Nucleated red blood cell per centageOrdered By: Michelle Loco on 02-09-2025 Nucleated RBC/100 WBC (Bld) [Ratio] 0 % 0-5 [facility] Phosphoruson 02-09-2025 Phosphate [Mass/Vol] 5.6 mg/dL High 2.7-4.5 [facility] Comment on above: Order Comment: 212 Performed By: #### L 500.2500, L100.0100, L501.2300, L501.5200 ####[facility] [address] [place], [address] Platelet countOrdered By: Liborio Loco on 02-09-2025 Platelets (Bld) [#/Vol] 163 10*3/uL 150-450 [facility] Potassium measurement (mass/ volume)Ordered By: Michelle Loco on 02-09-2025 Potassium (Unsp spec) [Mass/Vol] 4.7 mmol/L 3.3-5.1 [facility] RBC Auto (Bld) [#/Vol]Ordere d By: Michelle Loco on 02-09-2025 RBC (Bld) [#/Vol] 2.45 10*6/uL Low 4.6-6.2 [facility] Serum creatinine measurement (mass/volume)Ordered By: Michelle Loco on 02-09-2025 Creatinine [Mass/Vol] 1.30 mg/dL High 0.70-1.20 [facility] Serum glucose measurement (m ass/volume)Ordered By: Michelle Loco on 02-09-2025 Glucose [Mass/Vol] 120 mg/dL High 70-99 [facility] Serum or plasma calcium ed urement (mass/volume)Ordered By: Michelle Loco on 02-09-2025 Calcium [Mass/Vol] 8.8 mg/dL 7.6-11.0 [facility] Serum or plasma urea nitroge n measurement (mass/volume)Ordered By: Michelle Loco on 02-09-2025 Urea nitrogen [Mass/Vol] 23 mg/dL High 4-19 [facility] Sodium levelOrdered By: Malinda Loco on 02-09-2025 Sodium [Moles/Vol] 134 mmol/L 133-145 [facility] White blood cell (WBC) count Ordered By: Michelle Loco on 02-09-2025 WBC (Bld) [#/Vol] 4.4 10*3/uL 4.4-11.0 [facility] CBC W/Diff, Automatedon 01-14 PATH REV Reviewed Normal [facility] Comment on above: Order Comment: CRITI MODESTO VALUE CALLED TO ABIODUN01/22/25 0739 Evangelina Ayon.RESULTS READ BACK BY SAME. Result Comment: SEE REPORT IN PATIENT'S EMR AMENDED REPORT 02/03/25 1545 PATH REV previously reported as: January foll Performed By: #### L 500.4050, L100.0100 ####[facility] [address] [place], [place], [id number] Absolute lymphocyte countOrd ered By: Michellekiara Loco on 02-02-2025 Lymphocytes Auto (Unsp spec) [#/Vol] 1.01 10*3/uL 0.83-4.51 [facility] Absolute neutrophil countOrd ered By: [facility]-2025 Neutrophils (Bld) [#/Vol] 2.8 10*3/uL 2.0-7.7 [facility] Anion gap in Serum or Plasma Ordered By: Michellekiara Loco on 02-02-2025 Anion gap [Moles/Vol] 11 mmol/L 5-15 [facility] Automated lymphocyte count a s percentage of total leukocytesOrdered By: Michellekiara Loco on 02-02-2025 Lymphocytes/100 WBC Auto (Unsp spec) 23.0 % - [facility] BUN/creatinine ratioOrdered By: Michellekiara Loco on 02-02-2025 Urea nitrogen/Creatinine [Mass ratio] 12.1 mg/mg - [facility] Basic Metabolic Profile (BMP )on 02-02-2025 BUN/CRE 12.1 RATIO Normal - [facility] Comment on above: Order Comment: 212 Performed By: #### L 501.2300, L501.5200, L500.2500, L100.0100 ####[facility] [address] [place], [place], [address] Calcium [Mass/Vol] 8.7 mg/dL Normal 7.6-11.0 [facility] Comment on above: Order Comment: 212 Performed By: #### L 501.2300, L501.5200, L500.2500, L100.0100 ####[facility] [address] [place], [address] Chloride [Moles/Vol] 107 mmol/L Normal 98-108 [facility] Comment on above: Order Comment: 212 Performed By: #### L 501.2300, L501.5200, L500.2500, L100.0100 ####[facility] [address] [place], [address] CO2 [Moles/Vol] 18.1 mmol/L Low 21.0-32.0 [facility] Comment on above: Order Comment: 212 Performed By: #### L 501.2300, L501.5200, L500.2500, L100.0100 ####[facility] [address] [place], [address] Creatinine [Mass/Vol] 1.03 mg/dL Normal 0.70-1.20 [facility] Comment on above: Order Comment: 212 Performed By: #### L 501.2300, L501.5200, L500.2500, L100.0100 ####[facility] [address] [place], [address] GAP 11 Normal 5-15 [facility] Comment on above: Order Comment: 212 Performed By: #### L 501.2300, L501.5200, L500.2500, L100.0100 ####[facility] [address] [place], [address] GFR/1.73 sq M.predicted among non-blacks MDRD (S/P/Bld) [Vol rate/Area] 82 mL/min/{1.73_m2} Normal >60 [facility] Comment on above: Order Comment: 212 Result Comment: mL/m in/1.73m2 CKD-EPI Creatinine Equation (2020) Performed By: #### L 501.2300, L501.5200, L500.2500, L100.0100 ####[facility] [address] [place], [address] Glucose [Mass/Vol] 104 mg/dL High 70-99 [facility] Comment on above: Order Comment: 212 Performed By: #### L 501.2300, L501.5200, L500.2500, L100.0100 ####[facility] [address] [place], [address] Potassium [Moles/Vol] 4.2 mmol/L Normal 3.3-5.1 [facility] [facility] Comment on above: Order Comment: 212 Performed By: #### L 501.2300, L501.5200, L500.2500, L100.0100 ####[facility] [address] [place], [address] Sodium [Moles/Vol] 136 mmol/L Normal 133-145 [facility] Comment on above: Order Comment: 212 Performed By: #### L 501.2300, L501.5200, L500.2500, L100.0100 ####[facility] [address] [place], [address] Urea nitrogen [Mass/Vol] 13 mg/dL Normal 4-19 [facility] Comment on above: Order Comment: 212 Performed By: #### L 501.2300, L501.5200, L500.2500, L100.0100 ####[facility] [address] [place], [address] Basophil percentageOrdered B y: Michelle Loco on 02-02-2025 Basophils/100 WBC (Bld) 0.9 % 0-1 [facility] CBC W/Diff, Automatedon - Absolute Lymph 1.01 X10 3/uL Normal 0.83-4.51 [facility] Comment on above: Order Comment: 212 Performed By: #### L 501.2300, L501.5200, L500.2500, L100.0100 ####[facility] [address] [place], [address] Absolute Neut 2.8 X10 3/uL Normal 2.0-7.7 [facility] Comment on above: Order Comment: 212 Performed By: #### L 501.2300, L501.5200, L500.2500, L100.0100 ####[facility] [address] [place], [address] Basophils/100 WBC (Bld) 0.9 % Normal 0-1 [facility] Comment on above: Order Comment: 212 Performed By: #### L 501.2300, L501.5200, L500.2500, L100.0100 ####[facility] [address] [place], [address] Eosinophils/100 WBC (Bld) 2.3 % Normal 0-5 [facility] Comment on above: Order Comment: 212 Performed By: #### L 501.2300, L501.5200, L500.2500, L100.0100 ####[facility] [address] [place], [address] Erythrocyte distribution width (RBC) [Ratio] 17.2 % High 11.6-14.6 [facility] Comment on above: Order Comment: 212 Performed By: #### L 501.2300, L501.5200, L500.2500, L100.0100 ####[facility] [address] [place], [address] Hematocrit (Bld) [Volume fraction] 25.4 % Low 40-54 [facility] Comment on above: Order Comment: 212 Performed By: #### L 501.2300, L501.5200, L500.2500, L100.0100 ####[facility] [address] [place], [address] Hemoglobin (Bld) [Mass/Vol] 8.5 g/dL Low 13.0-16.5 [facility] Comment on above: Order Comment: 212 Performed By: #### L 501.2300, L501.5200, L500.2500, L100.0100 ####[facility] [address] [place], [address] IG% 1.100 High 0.0-0.9 [facility] Comment on above: Order Comment: 212 Result Comment: IG% - Immature Granulocytes (promyelocytes, myelocytes andmetamyelocytes) > 1% indicates that a LEFT SHIFT is Present. Performed By: #### L 501.2300, L501.5200, L500.2500, L100.0100 ####[facility] [address] [place], [address] Lymphocytes/100 WBC (Bld) 23.0 % Normal 19-41 [facility] Comment on above: Order Comment: 212 Performed By: #### L 501.2300, L501.5200, L500.2500, L100.0100 ####[facility] [address] [place], [address] MCH (RBC) [Entitic mass] 32.2 pg High 27.0-32.0 [facility] Comment on above: Order Comment: 212 Performed By: #### L 501.2300, L501.5200, L500.2500, L100.0100 ####[facility] [address] [place], [address] MCHC (RBC) [Mass/Vol] 33.5 g/dL Normal 32-36 [facility] Comment on above: Order Comment: 212 Performed By: #### L 501.2300, L501.5200, L500.2500, L100.0100 ####[facility] [address] [place], [address] MCV (RBC) [Entitic vol] 96.2 fL High 80-94 [facility] Comment on above: Order Comment: 212 Performed By: #### L 501.2300, L501.5200, L500.2500, L100.0100 ####[facility] [address] [place], [address] Monocytes/100 WBC (Bld) 8.9 % Normal 0-10 [facility] Comment on above: Order Comment: 212 Performed By: #### L 501.2300, L501.5200, L500.2500, L100.0100 ####[facility] [address] [place], [address] Neutrophils/100 WBC (Bld) 63.8 % Normal 47-70 [facility] Comment on above: Order Comment: 212 Performed By: #### L 501.2300, L501.5200, L500.2500, L100.0100 ####[facility] [address] [place], [address] Nucleated RBC (Bld) [#/Vol] 0 10*3/uL Normal 0-5 [facility] Comment on above: Order Comment: 212 Performed By: #### L 501.2300, L501.5200, L500.2500, L100.0100 ####[facility] [address] [place], [address] Platelet mean volume (Bld) [Entitic vol] 9.6 fL Normal 6.2-12.0 [facility] Comment on above: Order Comment: 212 Performed By: #### L 501.2300, L501.5200, L500.2500, L100.0100 ####[facility] [address] [place], [address] Platelets (Bld) [#/Vol] 242 10*3/uL Normal 150-450 [facility] Comment on above: Order Comment: 212 Performed By: #### L 501.2300, L501.5200, L500.2500, L100.0100 ####[facility] [address] [place], [address] RBC (Bld) [#/Vol] 2.64 10*6/uL Low 4.6-6.2 [facility] Comment on above: Order Comment: 212 Performed By: #### L 501.2300, L501.5200, L500.2500, L100.0100 ####[facility] [address] [place], [address] RDW SD 60.9 fl High 35.1-43.9 [facility] Comment on above: Order Comment: 212 Performed By: #### L 501.2300, L501.5200, L500.2500, L100.0100 ####[facility] [address] [place], [address] WBC (Bld) [#/Vol] 4.4 10*3/uL Normal 4.4-11.0 [facility] Comment on above: Order Comment: 212 Performed By: #### L 501.2300, L501.5200, L500.2500, L100.0100 ####[facility] [address] [place], [address] Carbon dioxide, total [Moles /volume] in Central venous bloodOrdered By: Michelle Loco on 02-02-2025 CO2 [Moles/Vol] 18.1 mmol/L Low 21.0-32.0 [facility] Chloride assayOrdered By: Liborio Loco on 02-02-2025 Chloride [Moles/Vol] 107 mmol/L 98-108 [facility] Eosinophil percentageOrdered By: Michelle Loco on 02-02-2025 Eosinophils/100 WBC (Bld) 2.3 % 0-5 [facility] Erythrocyte distribution wid th ratioOrdered By: Michelle Loco on 02-02-2025 Erythrocyte distribution width (RBC) [Ratio] 17.2 % High 11.6-14.6 [facility] Erythrocyte distribution wid th standard deviationOrdered By: Michelle Loco on 02-02-2025 Erythrocyte distribution width (RBC) [Ratio] 60.9 fl High 35.1-43.9 [facility] Glomerular filtration rate ( GFR) estimation/1.73 sq m using serum, plasma, or whole bOrdered By: Michelle Loco on 02-02-2025 GFR/1.73 sq M.predicted among non-blacks MDRD (S/P/Bld) [Vol rate/Area] 82 mL/min/{1.73_m2} >60 [facility] Comment on above: mL/min/1.73m2 CKD-EP I Creatinine Equation (2020) Hematocrit Auto (Bld) [Volum e fraction]Ordered By: Michelle Loco on 02-02-2025 Hematocrit (Bld) [Volume fraction] 25.4 % Low 40-54 [facility] Hemoglobin measurementOrdere d By: Michelle Loco on 02-02-2025 Hemoglobin (Bld) [Mass/Vol] 8.5 g/dL Low 13.0-16.5 [facility] Immature granulocytes/100 WB C Auto (Bld)Ordered By: Michlele Loco on 02-02-2025 Immature granulocytes/100 WBC (Bld) 1.100 % High 0.0-0.9 [facility] Comment on above: IG% - Immature Granu locytes (promyelocytes, myelocytes and metamyelocytes) > 1% indicates that a LEFT SHIFT is Present. MCV (mean corpuscular volume ) determinationOrdered By: Michelle Loco on 02-02-2025 MCV (RBC) [Entitic vol] 96.2 fL High 80-94 [facility] Magnesiumon 02-02-2025 Magnesium [Mass/Vol] 1.4 mg/dL Low 1.5-2.2 [facility] Comment on above: Order Comment: 212 Performed By: #### L 501.2300, L501.5200, L500.2500, L100.0100 ####[facility] [address] [place], [place], [id number] Magnesium measurement (mass/ volume)Ordered By: Michelle Loco on 02-02-2025 Magnesium (Unsp spec) [Mass/Vol] 1.4 mg/dL Low 1.5-2.2 [facility] Mean corpuscular hemoglobin (MCH) determinationOrdered By: Michelle Loco on 02-02-2025 MCH (RBC) [Entitic mass] 32.2 pg High 27.0-32.0 [facility] Mean corpuscular hemoglobin concentration (MCHC) determinationOrdered By: Michelle Loco on 02-02-2025 MCHC (RBC) [Mass/Vol] 33.5 g/dL 32-36 [facility] Mean platelet volume determi nationOrdered By: Michelle Loco on 02-02-2025 Platelet mean volume (Bld) [Entitic vol] 9.6 fL 6.2-12.0 [facility] Monocyte percentageOrdered B y: Michelle Loco on 02-02-2025 Monocytes/100 WBC (Bld) 8.9 % 0-10 [facility] Neutrophil percentageOrdered By: Michelle Loco on 02-02-2025 Neutrophils/100 WBC (Bld) 63.8 % 47-70 [facility] Nucleated red blood cell per centageOrdered By: Michelle Loco on 02-02-2025 Nucleated RBC/100 WBC (Bld) [Ratio] 0 % 0-5 [facility] Phosphoruson 02-02-2025 Phosphate [Mass/Vol] 4.7 mg/dL High 2.7-4.5 [facility] Comment on above: Order Comment: 212 Performed By: #### L 501.2300, L501.5200, L500.2500, L100.0100 ####[facility] [address] [place], [address] Platelet countOrdered By: Liborio Loco on 02-02-2025 Platelets (Bld) [#/Vol] 242 10*3/uL 150-450 [facility] Potassium measurement (mass/ volume)Ordered By: Michelle Loco on 02-02-2025 Potassium (Unsp spec) [Mass/Vol] 4.2 mmol/L 3.3-5.1 [facility] RBC Auto (Bld) [#/Vol]Ordere d By: Michelle Loco on 02-02-2025 RBC (Bld) [#/Vol] 2.64 10*6/uL Low 4.6-6.2 [facility] Serum creatinine measurement (mass/volume)Ordered By: Michelle Loco on 02-02-2025 Creatinine [Mass/Vol] 1.03 mg/dL 0.70-1.20 [facility] Serum glucose measurement (m ass/volume)Ordered By: Michelle Loco on 02-02-2025 Glucose [Mass/Vol] 104 mg/dL High 70-99 [facility] Serum or plasma calcium ed urement (mass/volume)Ordered By: Michelle Loco on 02-02-2025 Calcium [Mass/Vol] 8.7 mg/dL 7.6-11.0 [facility] Serum or plasma urea nitroge n measurement (mass/volume)Ordered By: Michelle Loco on 02-02-2025 Urea nitrogen [Mass/Vol] 13 mg/dL - [facility] Sodium levelOrdered By: Malinda Loco on 02-02-2025 Sodium [Moles/Vol] 136 mmol/L 133-145 [facility] White blood cell (WBC) count Ordered By: Michelle Loco on 02-02-2025 WBC (Bld) [#/Vol] 4.4 10*3/uL 4.4-11.0 [facility] Basic Metabolic Profile (BMP )on 01-26-2025 BUN Normal - [facility] Comment on above: Result Comment: Canc elled via OM: Order cancelled - Patient discharged Performed By: #### L 500.2500 ####[facility] [address] [place], [place], [id number] BUN/CRE Normal - [facility] Comment on above: Result Comment: Canc elled via OM: Order cancelled - Patient discharged Performed By: #### L 500.2500 ####[facility] [address] [place], [address] Calcium Normal 7.6-11.0 [facility] Comment on above: Result Comment: Canc elled via OM: Order cancelled - Patient discharged Performed By: #### L 500.2500 ####[facility] [address] [place], [address] CL Normal 98-108 [facility] Comment on above: Result Comment: Canc elled via OM: Order cancelled - Patient discharged Performed By: #### L 500.2500 ####[facility] [address] [place], [address] CO2 Normal 21.0-32.0 [facility] Comment on above: Result Comment: Canc elled via OM: Order cancelled - Patient discharged Performed By: #### L 500.2500 ####[facility] [address] [place], [address] CREAT,SERUM Normal 0.70-1.20 [facility] Comment on above: Result Comment: Canc elled via OM: Order cancelled - Patient discharged Performed By: #### L 500.2500 ####[facility] [address] [place], [address] eGFR Normal >60 [facility] Comment on above: Result Comment: Canc elled via OM: Order cancelled - Patient discharged Performed By: #### L 500.2500 ####[facility] [address] [place], [address] GAP Normal 5-15 [facility] Comment on above: Result Comment: Canc elled via OM: Order cancelled - Patient discharged Performed By: #### L 500.2500 ####[facility] [address] [place], [address] GLU Normal 70-99 [facility] Comment on above: Result Comment: Canc elled via OM: Order cancelled - Patient discharged Performed By: #### L 500.2500 ####[facility] [address] [place], [address] Potassium Normal 3.3-5.1 [facility] Comment on above: Result Comment: Canc elled via OM: Order cancelled - Patient discharged Performed By: #### L 500.2500 ####[facility] [address] [place], [address] Basic Metabolic Profile (BMP) Normal 133-145 [facility] Comment on above: Result Comment: Canc elled via OM: Order cancelled - Patient discharged Performed By: #### L 500.2500 ####[facility] [address] [place], [address] Anion gap in Serum or Plasma Ordered By: Michelle Loco on 01-25-2025 Anion gap [Moles/Vol] 10 mmol/L 5-15 [facility] BUN/creatinine ratioOrdered By: Michelle Loco on 01-25-2025 Urea nitrogen/Creatinine [Mass ratio] 18.2 mg/mg 10-20 [facility] Bilirubin, totalOrdered By: Michelle Loco on 01-25-2025 Bilirubin [Mass/Vol] 0.29 mg/dL 0.00-1.30 [facility] CBC-Complete Blood Cnt No Di ffon 01-25-2025 Erythrocyte distribution width (RBC) [Ratio] 17.5 % High 11.6-14.6 [facility] Comment on above: Order Comment: 212.1 Performed By: #### L 503.0106, L500.4100, L501.9520, L100.0500, L501.5200, L500.4050, L506.1001 ####[facility] [address] [place], [address] Hematocrit (Bld) [Volume fraction] 23.3 % Low 40-54 [facility] Comment on above: Order Comment: 212.1 Performed By: #### L 503.0106, L500.4100, L501.9520, L100.0500, L501.5200, L500.4050, L506.1001 ####[facility] [address] [place], [address] Hemoglobin (Bld) [Mass/Vol] 8.1 g/dL Low 13.0-16.5 [facility] Comment on above: Order Comment: .1 Performed By: #### L 503.0106, L500.4100, L501.9520, L100.0500, L501.5200, L500.4050, L506.1001 ####[facility] [address] [place], [address] MCH (RBC) [Entitic mass] 32.1 pg High 27.0-32.0 [facility] Comment on above: Order Comment: .1 Performed By: #### L 503.0106, L500.4100, L501.9520, L100.0500, L501.5200, L500.4050, L506.1001 ####[facility] [address] [place], [address] MCHC (RBC) [Mass/Vol] 34.8 g/dL Normal 32-36 [facility] Comment on above: Order Comment: . Performed By: #### L 503.0106, L500.4100, L501.9520, L100.0500, L501.5200, L500.4050, L506.1001 ####[facility] [address] [place], [address] MCV (RBC) [Entitic vol] 92.5 fL Normal 80-94 [facility] Comment on above: Order Comment: .1 Performed By: #### L 503.0106, L500.4100, L501.9520, L100.0500, L501.5200, L500.4050, L506.1001 ####[facility] [address] [place], [address] Platelet mean volume (Bld) [Entitic vol] 11.8 fL Normal 6.2-12.0 [facility] Comment on above: Order Comment: 212.1 Performed By: #### L 503.0106, L500.4100, L501.9520, L100.0500, L501.5200, L500.4050, L506.1001 ####[facility] [address] [place], [address] Platelets (Bld) [#/Vol] 54 10*3/uL Low 150-450 [facility] Comment on above: Order Comment: 212.1 Performed By: #### L 503.0106, L500.4100, L501.9520, L100.0500, L501.5200, L500.4050, L506.1001 ####[facility] [address] [place], [address] RBC (Bld) [#/Vol] 2.52 10*6/uL Low 4.6-6.2 [facility] Comment on above: Order Comment: 212.1 Performed By: #### L 503.0106, L500.4100, L501.9520, L100.0500, L501.5200, L500.4050, L506.1001 ####[facility] [address] [place], [address] RDW SD 59.5 fl High 35.1-43.9 [facility] Comment on above: Order Comment: 212.1 Performed By: #### L 503.0106, L500.4100, L501.9520, L100.0500, L501.5200, L500.4050, L506.1001 ####[facility] [address] [place], [address] WBC (Bld) [#/Vol] 5.3 10*3/uL Normal 4.4-11.0 [facility] Comment on above: Order Comment: 212.1 Performed By: #### L 503.0106, L500.4100, L501.9520, L100.0500, L501.5200, L500.4050, L506.1001 ####[facility] [address] [place], [place], [id number] Calculated very low density lipoprotein (VLDL) cholesterol measurementOrdered By: Michelle Loco on 01-25-2025 Calculated very low density lipoprotein (VLDL) cholesterol measurement 17 mg/dL 5-40 [facility] Carbon dioxide, total [Moles /volume] in Central venous bloodOrdered By: Michelle Loco on 01-25-2025 CO2 [Moles/Vol] 18.1 mmol/L Low 21.0-32.0 [facility] Chloride assayOrdered By: Liborio Loco on 01-25-2025 Chloride [Moles/Vol] 104 mmol/L 98-108 [facility] Comprehensive Metabolic Prof ilon 01-25-2025 Albumin [Mass/Vol] 3.1 g/dL Low 3.4-4.8 [facility] Comment on above: Order Comment: 212.1 Performed By: #### L 503.0106, L500.4100, L501.9520, L100.0500, L501.5200, L500.4050, L506.1001 ####[facility] [address] [place], [place], [id number] Albumin/Globulin [Mass ratio] 1.2 {ratio} Normal 0.9-2.4 [facility] Comment on above: Order Comment: 212.1 Performed By: #### L 503.0106, L500.4100, L501.9520, L100.0500, L501.5200, L500.4050, L506.1001 ####[facility] [address] [place], [place], [id number] ALK PHOS 73 U/L Normal 40-129 [facility] Comment on above: Order Comment: 212.1 Performed By: #### L 503.0106, L500.4100, L501.9520, L100.0500, L501.5200, L500.4050, L506.1001 ####[facility] [address] [place], [address] ALT [Catalytic activity/Vol] 59 U/L High <=46 [facility] Comment on above: Order Comment: 212.1 Performed By: #### L 503.0106, L500.4100, L501.9520, L100.0500, L501.5200, L500.4050, L506.1001 ####[facility] [address] [place], [address] AST [Catalytic activity/Vol] 87 U/L High <=37 [facility] Comment on above: Order Comment: 212.1 Performed By: #### L 503.0106, L500.4100, L501.9520, L100.0500, L501.5200, L500.4050, L506.1001 ####[facility] [address] [place], [address] Bilirubin [Mass/Vol] 0.29 mg/dL Normal 0.00-1.30 [facility] Comment on above: Order Comment: 212.1 Performed By: #### L 503.0106, L500.4100, L501.9520, L100.0500, L501.5200, L500.4050, L506.1001 ####[facility] [address] [place], [address] BUN/CRE 18.2 RATIO Normal 10-20 [facility] Comment on above: Order Comment: 212.1 Performed By: #### L 503.0106, L500.4100, L501.9520, L100.0500, L501.5200, L500.4050, L506.1001 ####[facility] [address] [place], [address] Calcium [Mass/Vol] 8.1 mg/dL Normal 7.6-11.0 [facility] Comment on above: Order Comment: 212.1 Performed By: #### L 503.0106, L500.4100, L501.9520, L100.0500, L501.5200, L500.4050, L506.1001 ####[facility] [address] [place], [address] Chloride [Moles/Vol] 104 mmol/L Normal 98-108 [facility] Comment on above: Order Comment: 212.1 Performed By: #### L 503.0106, L500.4100, L501.9520, L100.0500, L501.5200, L500.4050, L506.1001 ####[facility] [address] [place], [address] CO2 [Moles/Vol] 18.1 mmol/L Low 21.0-32.0 [facility] Comment on above: Order Comment: 212.1 Performed By: #### L 503.0106, L500.4100, L501.9520, L100.0500, L501.5200, L500.4050, L506.1001 ####[facility] [address] [place], [address] Creatinine [Mass/Vol] 1.03 mg/dL Normal 0.70-1.20 [facility] Comment on above: Order Comment: 212.1 Performed By: #### L 503.0106, L500.4100, L501.9520, L100.0500, L501.5200, L500.4050, L506.1001 ####[facility] [address] [place], [address] GAP 10 Normal 5-15 [facility] Comment on above: Order Comment: 212.1 Performed By: #### L 503.0106, L500.4100, L501.9520, L100.0500, L501.5200, L500.4050, L506.1001 ####[facility] [address] [place], [address] GFR/1.73 sq M.predicted among non-blacks MDRD (S/P/Bld) [Vol rate/Area] 82 mL/min/{1.73_m2} Normal >60 [facility] Comment on above: Order Comment: 212.1 Result Comment: mL/m in/1.73m2 CKD-EPI Creatinine Equation (2020) Performed By: #### L 503.0106, L500.4100, L501.9520, L100.0500, L501.5200, L500.4050, L506.1001 ####[facility] [address] [place], [address] Globulin (S) [Mass/Vol] 2.7 g/dL Normal 2.2-4.2 [facility] Comment on above: Order Comment: 212.1 Performed By: #### L 503.0106, L500.4100, L501.9520, L100.0500, L501.5200, L500.4050, L506.1001 ####[facility] [address] [place], [address] Glucose [Mass/Vol] 115 mg/dL High 70-99 [facility] Comment on above: Order Comment: 212.1 Performed By: #### L 503.0106, L500.4100, L501.9520, L100.0500, L501.5200, L500.4050, L506.1001 ####[facility] [address] [place], [address] Potassium [Moles/Vol] 3.5 mmol/L Normal 3.3-5.1 [facility] Comment on above: Order Comment: 212.1 Performed By: #### L 503.0106, L500.4100, L501.9520, L100.0500, L501.5200, L500.4050, L506.1001 ####[facility] [address] [place], [address] Sodium [Moles/Vol] 132 mmol/L Low 133-145 [facility] Comment on above: Order Comment: 212.1 Performed By: #### L 503.0106, L500.4100, L501.9520, L100.0500, L501.5200, L500.4050, L506.1001 ####[facility] [address] [place], [address] T PROT 5.8 g/dL Low 5.9-8.4 [facility] Comment on above: Order Comment: 212.1 Performed By: #### L 503.0106, L500.4100, L501.9520, L100.0500, L501.5200, L500.4050, L506.1001 ####[facility] [address] [place], [address] Urea nitrogen [Mass/Vol] 19 mg/dL Normal 4-19 [facility] Comment on above: Order Comment: 212.1 Performed By: #### L 503.0106, L500.4100, L501.9520, L100.0500, L501.5200, L500.4050, L506.1001 ####[facility] [address] [place], [place], [id number] Erythrocyte distribution wid th ratioOrdered By: Michelle Loco on 01-25-2025 Erythrocyte distribution width (RBC) [Ratio] 17.5 % High 11.6-14.6 [facility] Erythrocyte distribution wid th standard deviationOrdered By: Michelle Loco on 01-25-2025 Erythrocyte distribution width (RBC) [Ratio] 59.5 fl High 35.1-43.9 [facility] Glomerular filtration rate ( GFR) estimation/1.73 sq m using serum, plasma, or whole bOrdered By: Michelle Loco on 01-25-2025 GFR/1.73 sq M.predicted among non-blacks MDRD (S/P/Bld) [Vol rate/Area] 82 mL/min/{1.73_m2} >60 [facility] Comment on above: mL/min/1.73m2 CKD-EP I Creatinine Equation (2020) Hematocrit Auto (Bld) [Volum e fraction]Ordered By: Michelle Loco on 01-25-2025 Hematocrit (Bld) [Volume fraction] 23.3 % Low 40-54 [facility] Hemoglobin measurementOrdere d By: Michelle Loco on 01-25-2025 Hemoglobin (Bld) [Mass/Vol] 8.1 g/dL Low 13.0-16.5 [facility] LDL calc ser/plasOrdered By: Michelle Loco on 01-25-2025 Cholesterol in LDL [Mass/Vol] 65 mg/dL [facility] Comment on above: Ikuqfeajss=881-566 m g/dL & Higher Gciz=666 mg/dL or greater Laboratory - Chemistry and C hemistry - challengeOrdered By: Michelle Loco on 01-25-2025 AST [Catalytic activity/Vol] 87 U/L High <38 [facility] Lipid Profileon 01-25-2025 CHOL:HDL 2.[address] [facility] Comment on above: Order Comment: 212.1 Performed By: #### L 503.0106, L500.4100, L501.9520, L100.0500, L501.5200, L500.4050, L506.1001 ####[facility] [id number] [place], [place], [id number] Cholesterol [Mass/Vol] 126 mg/dL Normal <=200 [facility] Comment on above: Order Comment: 212.1 Result Comment: Chol esterol level, Desirable <200 mg/dLBorderline high cholesterol 200-239 mg/dLHigh cholesterol >=240 mg/dLRecommendations of the NCEP Adult Treatment Panel for thefollowing risk-cutoff thresholds for the [place] Americanpulation. Performed By: #### L 503.0106, L500.4100, L501.9520, L100.0500, L501.5200, L500.4050, L506.1001 ####[facility] [address] [place], [address] Cholesterol in HDL [Mass/Vol] 44 mg/dL Normal [facility] Comment on above: Order Comment: 212.1 Result Comment: Salome onal Cholesterol Education Program (NCEP) guidelines:<40 mg/dL: Low HDL-cholesterol (major risk factor for CHD)>= 60 mg/dL: High HDL-cholesterol (negative risk factor forCHD)HDL-cholesterol is affected by a number of factors, e.g.smoking, exercise, hormones, sex and age. Performed By: #### L 503.0106, L500.4100, L501.9520, L100.0500, L501.5200, L500.4050, L506.1001 ####[facility] [address] [place], [address] Cholesterol in LDL [Mass/Vol] 65 mg/dL Normal [facility] Comment on above: Order Comment: 212.1 Result Comment: Bord cpnovo=894-220 mg/dL Higher Jhkk=724 mg/dL or greater Performed By: #### L 503.0106, L500.4100, L501.9520, L100.0500, L501.5200, L500.4050, L506.1001 ####[facility] [address] [place], [address] Cholesterol in VLDL [Mass/Vol] 17 mg/dL Normal 5-40 [facility] Comment on above: Order Comment: 212.1 Performed By: #### L 503.0106, L500.4100, L501.9520, L100.0500, L501.5200, L500.4050, L506.1001 ####[facility] [address] [place], [address] Triglyceride [Mass/Vol] 86 mg/dL Normal [facility] Comment on above: Order Comment: 212.1 Result Comment: The drugs N-Acetylcysteine and Metamizole may falselydepress this assay.Normal range: <150 mg/dLBorderline High: 150-199 mg/dLHigh: 200-499 mg/dLVery High: >500 mg/dL Performed By: #### L 503.0106, L500.4100, L501.9520, L100.0500, L501.5200, L500.4050, L506.1001 ####[facility] [address] [place], [place], [address] MCV (mean corpuscular volume ) determinationOrdered By: Michelle Loco on 01-25-2025 MCV (RBC) [Entitic vol] 92.5 fL 80-94 [facility] Magnesiumon 01-25-2025 Magnesium [Mass/Vol] 1.2 mg/dL Low 1.5-2.2 [facility] Comment on above: Order Comment: 212.1 Performed By: #### L 503.0106, L500.4100, L501.9520, L100.0500, L501.5200, L500.4050, L506.1001 ####[facility] [address] [place], [place], [address] Magnesium measurement (mass/ volume)Ordered By: Michelle Loco on 01-25-2025 Magnesium (Unsp spec) [Mass/Vol] 1.2 mg/dL Low 1.5-2.2 [facility] Mean corpuscular hemoglobin (MCH) determinationOrdered By: Michelle Loco on 01-25-2025 MCH (RBC) [Entitic mass] 32.1 pg High 27.0-32.0 [facility] Mean corpuscular hemoglobin concentration (MCHC) determinationOrdered By: Michelle Loco on 01-25-2025 MCHC (RBC) [Mass/Vol] 34.8 g/dL 32-36 [facility] Mean platelet volume determi nationOrdered By: Michelle Loco on 01-25-2025 Platelet mean volume (Bld) [Entitic vol] 11.8 fL 6.2-12.0 [facility] Platelet countOrdered By: Liborio Loco on 01-25-2025 Platelets (Bld) [#/Vol] 54 10*3/uL Low 150-450 [facility] Potassium measurement (mass/ volume)Ordered By: Michelle Loco on 01-25-2025 Potassium (Unsp spec) [Mass/Vol] 3.5 mmol/L 3.3-5.1 [facility] RBC Auto (Bld) [#/Vol]Ordere d By: Michelle Loco on 01-25-2025 RBC (Bld) [#/Vol] 2.52 10*6/uL Low 4.6-6.2 [facility] Screening total cholesterol/ high density lipoprotein (HDL) cholesterol ratioOrdered By: Michelle Loco on 01-25-2025 Cholesterol.total/Janie sterol in HDL [Mass ratio] 2.89 {ratio} [facility] Serum creatinine measurement (mass/volume)Ordered By: Michelle Loco on 01-25-2025 Creatinine [Mass/Vol] 1.03 mg/dL 0.70-1.20 [facility] Serum globulin measurementOr dered By: Michelle Loco on 01-25-2025 Globulin (S) [Mass/Vol] 2.7 g/dL 2.2-4.2 [facility] Serum glucose measurement (m ass/volume)Ordered By: Michelle Loco on 01-25-2025 Glucose [Mass/Vol] 115 mg/dL High 70-99 [facility] Serum or plasma alanine gregory otransferase (ALT) measurementOrdered By: Michelle Loco on 01-25-2025 ALT [Catalytic activity/Vol] 59 U/L High <47 [facility] Serum or plasma albumin ed urement (mass/volume)Ordered By: Michelle Loco on 01-25-2025 Albumin [Mass/Vol] 3.1 g/dL Low 3.4-4.8 [facility] Serum or plasma albumin/glob ulin mass ratioOrdered By: Michelle Loco on 01-25-2025 Albumin/Globulin [Mass ratio] 1.2 {ratio} 0.9-2.4 [facility] Serum or plasma alkaline edwin sphatase measurementOrdered By: Michelle Loco on 01-25-2025 ALP [Catalytic activity/Vol] 73 U/L 40-129 [facility] Serum or plasma calcium ed urement (mass/volume)Ordered By: Michelle Loco on 01-25-2025 Calcium [Mass/Vol] 8.1 mg/dL 7.6-11.0 [facility] Serum or plasma cholesterol in HDL measurement (mass/volume)Ordered By: Michelle Loco on 01-25-2025 Cholesterol in HDL [Mass/Vol] 44 mg/dL >40 [facility] Comment on above: National Cholesterol Education Program (NCEP) guidelines:<40 mg/dL: Low HDL-cholesterol (major risk factor for CHD)>= 60 mg/dL: High HDL-cholesterol (negative risk factor for CHD)HDL-cholesterol is affected by a number of factors, e.g. smoking, exercise, hormones, sex and age. Serum or plasma cholesterol measurement (mass/volume)Ordered By: Michelle Loco on 01-25-2025 Cholesterol [Mass/Vol] 126 mg/dL <201 [facility] Comment on above: Cholesterol level, D esirable <200 mg/dLBorderline high cholesterol 200-239 mg/dLHigh cholesterol >=240 mg/dLRecommendations of the NCEP Adult Treatment Panel for the following risk-cutoff thresholds for the [place] population. Serum or plasma urea nitroge n measurement (mass/volume)Ordered By: Michelle Loco on 01-25-2025 Urea nitrogen [Mass/Vol] 19 mg/dL 4-19 [facility] Sodium levelOrdered By: Malinda Loco on 01-25-2025 Sodium [Moles/Vol] 132 mmol/L Low 133-145 [facility] TSH DL <= 0.005 mIU/L QnOrde red By: Michelle Loco on 01-25-2025 TSH Qn 3.080 uIU/mL 0.300-4.200 [facility] Thyroid Stim Hormone (TSH)on 01-25-2025 TSH 3.080 uIU/mL Normal 0.300-4.200 [facility] Comment on above: Order Comment: 212.1 Performed By: #### L 503.0106, L500.4100, L501.9520, L100.0500, L501.5200, L500.4050, L506.1001 ####[facility] [address] [place], [place], [id number] Total proteinOrdered By: Danyelle Loco on 01-25-2025 Protein [Mass/Vol] 5.8 g/dL Low 5.9-8.4 [facility] Triglycerides measurementOrd ered By: Michelle Loco on 01-25-2025 Triglyceride [Mass/Vol] 86 mg/dL <199 [facility] Comment on above: The drugs N-Acetylcy steine and Metamizole may falsely depress this assay. Normal range: <150 mg/dLBorderline High: 150-199 mg/dLHigh: 200-499 mg/dLVery High: >500 mg/dL Vitamin B12on 01-25-2025 Cobalamin (Vitamin B12) [Mass/Vol] 450 pg/mL Normal 180-914 [facility] Comment on above: Order Comment: . Performed By: #### L 503.0106, L500.4100, L501.9520, L100.0500, L501.5200, L500.4050, L506.1001 ####[facility] [address] [place], [place], [id number] Vitamin B12 ser/plasOrdered By: Michelle Loco on 01-25-2025 Cobalamin (Vitamin B12) [Mass/Vol] 450 pg/mL 180-914 [facility] Vitamin D,25 Hydroxyon 01-25 Vitamin D 25-OH < 6.0 Low 30-100 [facility] Comment on above: Order Comment: 212.1 Result Comment: Anita min D StatusDeficiency: <20 ng/mL (50nmol/L)Insufficiency: 20-30 ng/mL (50-75 nmol/L)Sufficiency: 30-100 ng/mL (75-250 nmol/L)Toxicity: >100 ng/mL (>250 nmol/L) Performed By: #### L 503.0106, L500.4100, L501.9520, L100.0500, L501.5200, L500.4050, L506.1001 ####[facility] [address] [place], [address] White blood cell (WBC) count Ordered By: Michelle Loco on 01-25-2025 WBC (Bld) [#/Vol] 5.3 10*3/uL 4.4-11.0 [facility] Absolute lymphocyte countOrd ered By: Shortyryan Lea on 01-24-2025 Lymphocytes Auto (Unsp spec) [#/Vol] 0.94 10*3/uL 0.83-4.51 [facility] Absolute neutrophil countOrd ered By: Shortywilber Lea on 01-24-2025 Neutrophils (Bld) [#/Vol] 2.2 10*3/uL 2.0-7.7 [facility] Anion gap in Serum or Plasma Ordered By: Shorty Lea on 01-24-2025 Anion gap [Moles/Vol] 10 mmol/L 5-15 [facility] Automated lymphocyte count a s percentage of total leukocytesOrdered By: Shorty Lea on 01-24-2025 Lymphocytes/100 WBC Auto (Unsp spec) 24.7 % - [facility] BUN/creatinine ratioOrdered By: Shorty Lea on 01-24-2025 Urea nitrogen/Creatinine [Mass ratio] 18.9 mg/mg - [facility] Basic Metabolic Profile (BMP )on 01-24-2025 BUN/CRE 18.9 RATIO Normal - [facility] Comment on above: Performed By: #### L 100.0100, L500.2500 ####[facility] [address] [place], [address] Calcium [Mass/Vol] 8.4 mg/dL Normal 7.6-11.0 [facility] Comment on above: Performed By: #### L 100.0100, L500.2500 ####[facility] [address] [place], [address] Chloride [Moles/Vol] 104 mmol/L Normal 98-108 [facility] Comment on above: Performed By: #### L 100.0100, L500.2500 ####[facility] [address] [place], [address] CO2 [Moles/Vol] 17.6 mmol/L Low 21.0-32.0 [facility] Comment on above: Performed By: #### L 100.0100, L500.2500 ####[facility] [address] [place], [address] Creatinine [Mass/Vol] 0.93 mg/dL Normal 0.70-1.20 [facility] Comment on above: Performed By: #### L 100.0100, L500.2500 ####[facility] [address] [place], [address] ECRCL 83.95 ml/min Normal 50-250 [facility] Comment on above: Performed By: #### L 100.0100, L500.2500 ####[facility] [address] [place], [address] GAP 10 Normal 5-15 [facility] Comment on above: Performed By: #### L 100.0100, L500.2500 ####[facility] [address] [place], [address] GFR/1.73 sq M.predicted among non-blacks MDRD (S/P/Bld) [Vol rate/Area] 93 mL/min/{1.73_m2} Normal >60 [facility] Comment on above: Result Comment: mL/m in/1.73m2 CKD-EPI Creatinine Equation (2020) Performed By: #### L 100.0100, L500.2500 ####[facility] [address] [place], [address] Glucose [Mass/Vol] 117 mg/dL High 70-99 [facility] Comment on above: Performed By: #### L 100.0100, L500.2500 ####[facility] [address] [place], [address] Potassium [Moles/Vol] 3.9 mmol/L Normal 3.3-5.1 [facility] Comment on above: Performed By: #### L 100.0100, L500.2500 ####[facility] [address] [place], [address] Sodium [Moles/Vol] 131 mmol/L Low 133-145 [facility] Comment on above: Performed By: #### L 100.0100, L500.2500 ####[facility] [address] [place], [address] Urea nitrogen [Mass/Vol] 18 mg/dL Normal 4-19 [facility] Comment on above: Performed By: #### L 100.0100, L500.2500 ####[facility] [address] [place], [address] Basophil percentageOrdered B y: Shorty Lea on 01-24-2025 Basophils/100 WBC (Bld) 0.3 % 0-1 [facility] Bite cells detectionOrdered By: Shorty Lea on 01-24-2025 Bite cells LM Ql (Bld) RARE Wo [facility] Blood manual differential co mment interpretation (narrative result)Ordered By: Shorty Lea on 01-24-2025 Manual differential comment Mars (Bld) [Interp] SCANNED [facility] CBC W/Diff, Automatedon 01-13 ACANTHOCYTE RARE Normal [facility] Comment on above: Performed By: #### L 100.0100, L500.2500 ####[facility] [address] [place], [address] Anisocytosis Ql (Bld) 1+ Normal [facility] Comment on above: Performed By: #### L 100.0100, L500.2500 ####[facility] [address] [place], [address] BITE CELL RARE Normal [facility] Comment on above: Performed By: #### L 100.0100, L500.2500 ####[facility] [address] [place], [address] PLT EST MKD DEC Normal ADEQ [facility] Comment on above: Performed By: #### L 100.0100, L500.2500 ####[facility] [address] [place], [address] SMEAR COMMENT SCANNED Normal [facility] Comment on above: Performed By: #### L 100.0100, L500.2500 ####[facility] [address] [place], [address] Carbon dioxide, total [Moles /volume] in Central venous bloodOrdered By: Shorty Lea on 01-24-2025 CO2 [Moles/Vol] 17.6 mmol/L Low 21.0-32.0 [facility] Chloride assayOrdered By: Stuart Lea on 01-24-2025 Chloride [Moles/Vol] 104 mmol/L 98-108 [facility] Eosinophil percentageOrdered By: Shorty Lea on 01-24-2025 Eosinophils/100 WBC (Bld) 0.5 % 0-5 [facility] Erythrocyte distribution wid th ratioOrdered By: Shorty Lea on 01-24-2025 Erythrocyte distribution width (RBC) [Ratio] 17.4 % High 11.6-14.6 [facility] Erythrocyte distribution wid th standard deviationOrdered By: Shorty Lea on 01-24-2025 Erythrocyte distribution width (RBC) [Ratio] 57.9 fl High 35.1-43.9 [facility] Ferritinon 01-24-2025 Ferritin [Mass/Vol] 2300 ng/mL High 37-417 [facility] Comment on above: Performed By: #### L 503.6030, L503.1950 ####[facility] [address] [place], [place], [address] Glomerular filtration rate ( GFR) estimation/1.73 sq m using serum, plasma, or whole bOrdered By: Shorty Lea on 01-24-2025 GFR/1.73 sq M.predicted among non-blacks MDRD (S/P/Bld) [Vol rate/Area] 93 mL/min/{1.73_m2} >60 [facility] Comment on above: mL/min/1.73m2 CKD-EP I Creatinine Equation (2020) Hematocrit Auto (Bld) [Volum e fraction]Ordered By: Shorty Lea on 01-24-2025 Hematocrit (Bld) [Volume fraction] 25.1 % Low 40-54 [facility] Hemoglobin measurementOrdere d By: Shorty Lea on 01-24-2025 Hemoglobin (Bld) [Mass/Vol] 8.8 g/dL Low 13.0-16.5 [facility] Immature granulocytes/100 WB C Auto (Bld)Ordered By: Shorty Lea on 01-24-2025 Immature granulocytes/100 WBC (Bld) 4.200 % High 0.0-0.9 [facility] Comment on above: IG% - Immature Granu locytes (promyelocytes, myelocytes and metamyelocytes) > 1% indicates that a LEFT SHIFT is Present. Iron measurement (mass/mass) Ordered By: Shorty Lea on 01-24-2025 Iron (Unsp spec) [Mass/Mass] 64 ug/dL Low 65-175 [facility] Iron+Iron Binding Capacityon 01-24-2025 TIBC 174 ug/dL Low 250-450 [facility] Comment on above: Performed By: #### L 503.6030, L503.6550 ####[facility] [address] [place], [place], [id number] Laboratory - Hematology and Cell countsOrdered By: Shorty Lea on 01-24-2025 Anisocytosis Ql (Bld) 1+ [facility] MCV (mean corpuscular volume ) determinationOrdered By: Shorty Lea on 01-24-2025 MCV (RBC) [Entitic vol] 90.9 fL 80-94 [facility] Mean corpuscular hemoglobin (MCH) determinationOrdered By: Shorty Lea on 01-24-2025 MCH (RBC) [Entitic mass] 31.9 pg 27.0-32.0 [facility] Mean corpuscular hemoglobin concentration (MCHC) determinationOrdered By: Shorty Lea on 01-24-2025 MCHC (RBC) [Mass/Vol] 35.1 g/dL 32-36 [facility] Mean platelet volume determi nationOrdered By: Shorty Lea on 01-24-2025 Platelet mean volume (Bld) [Entitic vol] 10.9 fL 6.2-12.0 [facility] Monocyte percentageOrdered B y: Shorty Lea on 01-24-2025 Monocytes/100 WBC (Bld) 11.5 % High 0-10 [facility] Neutrophil percentageOrdered By: Shorty Lea on 01-24-2025 Neutrophils/100 WBC (Bld) 58.8 % 47-70 [facility] No Panel InformationOrdered By: Shorty Lea on 01-24-2025 Unsaturated Iron Binding Capacity 110 ug/dL Low 228-428 [facility] Nucleated red blood cell per centageOrdered By: Shorty Lea on 01-24-2025 Nucleated RBC/100 WBC (Bld) [Ratio] 0 % 0-5 [facility] Platelet countOrdered By: Stuart Lea on 01-24-2025 Platelets (Bld) [#/Vol] 32 10*3/uL Low 150-450 [facility] Comment on above: CRITICAL VALUE WHITEHEAD D TO MOE YIN01/24/25 0541 Chelsey Leonardo.RESULTS READ BACK BY SAME. Platelet estimateOrdered By: Shorty Lea on 01-24-2025 Platelets LM Ql (Bld) MKD DEC ADEQ [facility] Potassium measurement (mass/ volume)Ordered By: Shorty Lea on 01-24-2025 Potassium (Unsp spec) [Mass/Vol] 3.9 mmol/L 3.3-5.1 [facility] RBC Auto (Bld) [#/Vol]Ordere d By: Shorty Lea on 01-24-2025 RBC (Bld) [#/Vol] 2.76 10*6/uL Low 4.6-6.2 [facility] Serum creatinine measurement (mass/volume)Ordered By: Shorty Lea on 01-24-2025 Creatinine [Mass/Vol] 0.93 mg/dL 0.70-1.20 [facility] Serum glucose measurement (m ass/volume)Ordered By: Shorty Lea on 01-24-2025 Glucose [Mass/Vol] 117 mg/dL High 70-99 [facility] Serum or plasma calcium ed urement (mass/volume)Ordered By: Shorty Lea on 01-24-2025 Calcium [Mass/Vol] 8.4 mg/dL 7.6-11.0 [facility] Serum or plasma ferritin poly surement (mass/volume)Ordered By: Shorty Lea on 01-24-2025 Ferritin [Mass/Vol] 2300 ng/mL High 37-417 [facility] Serum or plasma iron saturat ion measurement (mass fraction)Ordered By: Shorty Lea on 01-24-2025 Iron saturation [Mass fraction] 36.8 % 9-55 [facility] Comment on above: Previous reported re sult: 37.0 %Edited by: NÉSTOR on 01/24/25:1657 AMENDED REPORT 01/24/25 1657 IRON SATURATION previously reported as: 37.0 % Serum or plasma urea nitroge n measurement (mass/volume)Ordered By: Shorty Lea on 01-24-2025 Urea nitrogen [Mass/Vol] 18 mg/dL 4-19 [facility] Sodium levelOrdered By: Wilman Lea on 01-24-2025 Sodium [Moles/Vol] 131 mmol/L Low 133-145 [facility] White blood cell (WBC) count Ordered By: Shorty Lea on 01-24-2025 WBC (Bld) [#/Vol] 3.8 10*3/uL Low 4.4-11.0 [facility] Bilirubin, totalOrdered By: Shorty Lea on 01-22-2025 Bilirubin [Mass/Vol] 0.39 mg/dL 0.00-1.30 [facility] Comprehensive Metabolic Prof ilon 01-22-2025 Albumin [Mass/Vol] 3.2 g/dL Low 3.4-4.8 [facility] Comment on above: Performed By: #### L 500.4050, L100.0100 ####[facility] [address] [place], [address] Albumin/Globulin [Mass ratio] 1.1 {ratio} Normal 0.9-2.4 [facility] Comment on above: Performed By: #### L 500.4050, L100.0100 ####[facility] [address] [place], [address] ALK PHOS 81 U/L Normal 40-129 [facility] Comment on above: Performed By: #### L 500.4050, L100.0100 ####[facility] [address] [place], [address] ALT [Catalytic activity/Vol] 12 U/L Normal <=46 [facility] Comment on above: Performed By: #### L 500.4050, L100.0100 ####[facility] [address] [place], [address] AST [Catalytic activity/Vol] 33 U/L Normal <=37 [facility] Comment on above: Performed By: #### L 500.4050, L100.0100 ####[facility] [address] [place], [address] Bilirubin [Mass/Vol] 0.39 mg/dL Normal 0.00-1.30 [facility] Comment on above: Performed By: #### L 500.4050, L100.0100 ####[facility] [address] [place], [address] BUN/CRE 14.6 RATIO Normal 10-20 [facility] Comment on above: Performed By: #### L 500.4050, L100.0100 ####[facility] [address] [place], [address] Calcium [Mass/Vol] 8.3 mg/dL Normal 7.6-11.0 [facility] Comment on above: Performed By: #### L 500.4050, L100.0100 ####[facility] [address] [place], [address] Chloride [Moles/Vol] 104 mmol/L Normal 98-108 [facility] Comment on above: Performed By: #### L 500.4050, L100.0100 ####[facility] [address] [place], [address] CO2 [Moles/Vol] 16.4 mmol/L Low 21.0-32.0 [facility] Comment on above: Performed By: #### L 500.4050, L100.0100 ####[facility] [address] [place], [address] Creatinine [Mass/Vol] 1.12 mg/dL Normal 0.70-1.20 [facility] Comment on above: Performed By: #### L 500.4050, L100.0100 ####[facility] [address] [place], [address] ECRCL 69.70 ml/min Normal 50-250 [facility] Comment on above: Performed By: #### L 500.4050, L100.0100 ####[facility] [address] [place], [address] GAP 9 Normal 5-15 [facility] Comment on above: Performed By: #### L 500.4050, L100.0100 ####[facility] [address] [place], [address] GFR/1.73 sq M.predicted among non-blacks MDRD (S/P/Bld) [Vol rate/Area] 74 mL/min/{1.73_m2} Normal >60 [facility] Comment on above: Result Comment: mL/m in/1.73m2 CKD-EPI Creatinine Equation (2020) Performed By: #### L 500.4050, L100.0100 ####[facility] [address] [place], [address] Globulin (S) [Mass/Vol] 3.0 g/dL Normal 2.2-4.2 [facility] Comment on above: Performed By: #### L 500.4050, L100.0100 ####[facility] [address] [place], [address] Glucose [Mass/Vol] 199 mg/dL High 70-99 [facility] Comment on above: Performed By: #### L 500.4050, L100.0100 ####[facility] [address] [place], [address] Potassium [Moles/Vol] 4.9 mmol/L Normal 3.3-5.1 [facility] Comment on above: Performed By: #### L 500.4050, L100.0100 ####[facility] [address] [place], [address] Sodium [Moles/Vol] 130 mmol/L Low 133-145 [facility] Comment on above: Performed By: #### L 500.4050, L100.0100 ####[facility] [address] [place], [address] T PROT 6.2 g/dL Normal 5.9-8.4 [facility] Comment on above: Performed By: #### L 500.4050, L100.0100 ####[facility] [address] [place], [address] Urea nitrogen [Mass/Vol] 16 mg/dL Normal 4-19 [facility] Comment on above: Performed By: #### L 500.4050, L100.0100 ####[facility] [address] [place], [address] Laboratory - Chemistry and C hemistry - challengeOrdered By: Shorty Lea on 01-22-2025 AST [Catalytic activity/Vol] 33 U/L <38 [facility] Review by pathologistOrdered By: Shorty Lea on 01-22-2025 Pathologist review Mars (Unsp spec) [Interp] Trish frandy [facility] Pathologist review Mars (Unsp spec) [Interp] Reviewed [facility] Comment on above: Previous reported re sult: Trish frandy Edited by: DWIGHT on 02/03/25:1545SEE REPORT IN PATIENT'S EMR AMENDED REPORT 02/03/25 1545 PATH REV previously reported as: Trish wise Serum globulin measurementOr dered By: Shorty Lea on 01-22-2025 Globulin (S) [Mass/Vol] 3.0 g/dL 2.2-4.2 [facility] Serum or plasma alanine gregory otransferase (ALT) measurementOrdered By: Shorty Lea on 01-22-2025 ALT [Catalytic activity/Vol] 12 U/L <47 [facility] Serum or plasma albumin ed urement (mass/volume)Ordered By: Shorty Lea on 01-22-2025 Albumin [Mass/Vol] 3.2 g/dL Low 3.4-4.8 [facility] Serum or plasma albumin/glob ulin mass ratioOrdered By: Shorty Lea on 01-22-2025 Albumin/Globulin [Mass ratio] 1.1 {ratio} 0.9-2.4 [facility] Serum or plasma alkaline edwin sphatase measurementOrdered By: Shorty Lea on 01-22-2025 ALP [Catalytic activity/Vol] 81 U/L 40-129 [facility] Total proteinOrdered By: Ebony Lea on 01-22-2025 Protein [Mass/Vol] 6.2 g/dL 5.9-8.4 [facility] CBC W/Diff, Automatedon ACANTHOCYTE 1+ Normal [facility] Comment on above: Performed By: #### L 501.2300, L100.0100, L500.4050 ####[facility] [address] [place], [address] Anisocytosis Ql (Bld) 1+ Normal [facility] Comment on above: Performed By: #### L 501.2300, L100.0100, L500.4050 ####[facility] [address] [place], [address] OVALOCYTE 1+ Normal [facility] Comment on above: Performed By: #### L 501.2300, L100.0100, L500.4050 ####[facility] [address] [place], [address] PLT EST MKD DEC Normal ADEQ [facility] Comment on above: Performed By: #### L 501.2300, L100.0100, L500.4050 ####[facility] [address] [place], [address] Comprehensive Metabolic Prof [facility] 01-21-2025 Albumin [Mass/Vol] 3.0 g/dL Low 3.4-4.8 [facility] Comment on above: Performed By: #### L 501.2300, L100.0100, L500.4050 ####[facility] [address] [place], [address] Albumin/Globulin [Mass ratio] 1.1 {ratio} Normal 0.9-2.4 [facility] Comment on above: Performed By: #### L 501.2300, L100.0100, L500.4050 ####[facility] [address] [place], [address] ALK PHOS 79 U/L Normal 40-129 [facility] Comment on above: Performed By: #### L 501.2300, L100.0100, L500.4050 ####[facility] [address] [place], [address] ALT [Catalytic activity/Vol] 13 U/L Normal <=46 [facility] Comment on above: Performed By: #### L 501.2300, L100.0100, L500.4050 ####[facility] [address] [place], [address] AST [Catalytic activity/Vol] 37 U/L Normal <=37 [facility] Comment on above: Performed By: #### L 501.2300, L100.0100, L500.4050 ####[facility] [address] [place], [address] Bilirubin [Mass/Vol] 0.59 mg/dL Normal 0.00-1.30 [facility] Comment on above: Performed By: #### L 501.2300, L100.0100, L500.4050 ####[facility] [address] [place], [address] BUN/CRE 14.7 RATIO Normal 10-20 [facility] Comment on above: Performed By: #### L 501.2300, L100.0100, L500.4050 ####[facility] [address] [place], [address] Calcium [Mass/Vol] 7.8 mg/dL Normal 7.6-11.0 [facility] Comment on above: Performed By: #### L 501.2300, L100.0100, L500.4050 ####[facility] [address] [place], [address] Chloride [Moles/Vol] 100 mmol/L Normal 98-108 [facility] Comment on above: Performed By: #### L 501.2300, L100.0100, L500.4050 ####[facility] [address] [place], [address] CO2 [Moles/Vol] 17.0 mmol/L Low 21.0-32.0 [facility] Comment on above: Performed By: #### L 501.2300, L100.0100, L500.4050 ####[facility] [address] [place], [address] Creatinine [Mass/Vol] 0.93 mg/dL Normal 0.70-1.20 [facility] Comment on above: Performed By: #### L 501.2300, L100.0100, L500.4050 ####[facility] [address] [place], [address] ECRCL 83.95 ml/min Normal 50-250 [facility] Comment on above: Performed By: #### L 501.2300, L100.0100, L500.4050 ####[facility] [address] [place], [address] GAP 11 Normal 5-15 [facility] Comment on above: Performed By: #### L 501.2300, L100.0100, L500.4050 ####[facility] [address] [place], [address] GFR/1.73 sq M.predicted among non-blacks MDRD (S/P/Bld) [Vol rate/Area] 92 mL/min/{1.73_m2} Normal >60 [facility] Comment on above: Result Comment: mL/m in/1.73m2 CKD-EPI Creatinine Equation (2020) Performed By: #### L 501.2300, L100.0100, L500.4050 ####[facility] [address] [place], [address] Globulin (S) [Mass/Vol] 2.7 g/dL Normal 2.2-4.2 [facility] Comment on above: Performed By: #### L 501.2300, L100.0100, L500.4050 ####[facility] [address] [place], [address] Glucose [Mass/Vol] 114 mg/dL High 70-99 [facility] Comment on above: Performed By: #### L 501.2300, L100.0100, L500.4050 ####[facility] [address] [place], [address] Potassium [Moles/Vol] 3.2 mmol/L Low 3.3-5.1 [facility] Comment on above: Performed By: #### L 501.2300, L100.0100, L500.4050 ####[facility] [address] [place], [address] Sodium [Moles/Vol] 129 mmol/L Low 133-145 [facility] Comment on above: Performed By: #### L 501.2300, L100.0100, L500.4050 ####[facility] [address] [place], [address] T PROT 5.7 g/dL Low 5.9-8.4 [facility] Comment on above: Performed By: #### L 501.2300, L100.0100, L500.4050 ####[facility] [address] [place], [address] Urea nitrogen [Mass/Vol] 14 mg/dL Normal 4-19 [facility] Comment on above: Performed By: #### L 501.2300, L100.0100, L500.4050 ####[facility] [address] [place], [address] Creatinine, Urine (random)on 01-21-2025 UR CREAT 37.80 mg/dL Low 39.00-259.00 [facility] Comment on above: Performed By: #### L 501.7400, L501.1200, L500.9400 ####[facility] [address] [place], [address] Foot min 3 Viewson 5 Foot min [address] [facility] Haptoglobinon 01-21-2025 HAPTOGLOBIN 127 mg/dL Normal 32-363 [facility] Comment on above: Result Comment: Perf ormed at: [facility] [place], [place] [id number] Director: Harrison Villareal PhD, Phone: [phone] Performed By: #### L 3100.1850, A67620-7, L504.2610 ####[facility] [address] [place], [place], [address] L501.5101on 01-21-2025 GGTP 31 IU/L Normal 0-65 [facility] Comment on above: Result Comment: Perf ormed at: [facility] [id number] [place], [place] [id number] Director: Harrison Villareal PhD, Phone: [phone] Performed By: #### L 501.2300, L501.5101, L501.6901 ####[facility] [address] [place], [address] Osmolality urOrdered By: Ebony Lea on 01-21-2025 Osmolality (U) [Osmolality] 201 mOsm/KG >50 [facility] Comment on above: Normal Urine Referen ce Ranges Random: 50 - 1200 mOsm/kg H20 depending on fluid intake Random: >850 mOsm/kg after 12 hour fluid restriction 24 hour: ~300 - 900 mOsm/kg H2O Osmolality, Urineon 01-22-20 25 OSMOLALITY,UR 201 mOsm/KG Normal [facility] Comment on above: Result Comment: Norm al Urine Reference Ranges Random: 50 - 1200 mOsm/kg H20 depending on fluid intake Random: >850 mOsm/kg after 12 hour fluid restriction 24 hour: 300 - 900 mOsm/kg H2O Performed By: #### L 501.7400, L501.1200, L500.9400 ####[facility] [address] [place], [address] Ovalocyte detectionOrdered B y: Shorty Lea on 01-21-2025 Ovalocytes LM Ql (Bld) 1+ [facility] Phosphoruson 01-21-2025 Phosphate [Mass/Vol] 2.7 mg/dL Normal 2.7-4.5 [facility] Comment on above: Performed By: #### L 501.2300, L100.0100, L500.4050 ####[facility] [address] [place], [address] Random urine creatinine ed urement (mass/volume)Ordered By: Shorty Lea on 01-21-2025 Creatinine Unsp time (U) [Mass/Vol] 37.80 mg/dL Low 39.00-259.00 [facility] Serum or plasma uric acid me asurement (mass/volume)Ordered By: Shorty Lea on 01-21-2025 Urate [Mass/Vol] 5.5 mg/dL 3.5-7.2 [facility] Comment on above: The drugs N-Acetylcy steine and Metamizole may falsely depress this assay. Uric Acidon 01-21-2025 URIC 5.5 mg/dL Normal 3.5-7.2 [facility] Comment on above: Result Comment: The drugs N-Acetylcysteine and Metamizole may falselydepress this assay. Performed By: #### L 501.1400 ####[facility] [address] [place], [address] Urine Electrolytes- Randomon 01-21-2025 Chloride,URINE 24 mmol/L Normal Not Establ. [facility] Comment on above: Performed By: #### L 501.7400, L501.1200, L500.9400 ####[facility] [address] [place], [address] Sodium (U) [Moles/Vol] 35 mmol/L Normal Not Establ. [facility] Comment on above: Performed By: #### L 501.7400, L501.1200, L500.9400 ####[facility] [address] [place], [address] UR K 7.2 mmol/L Normal Not Establ. [facility] Comment on above: Performed By: #### L 501.7400, L501.1200, L500.9400 ####[facility] [address] [place], [address] Urine potassium measurement (moles/volume)Ordered By: Shorty Lea on 01-21-2025 Potassium (U) [Moles/Vol] 7.2 mmol/L Not Establ. [facility] Urine sodium measurement (mo les/volume)Ordered By: Shorty Lea on 01-21-2025 Sodium (U) [Moles/Vol] 35 mmol/L Not Establ. [facility] CBC-Complete Blood Cnt No Di ffon 01-20-2025 Erythrocyte distribution width (RBC) [Ratio] 17.9 % High 11.6-14.6 [facility] Comment on above: Order Comment: CRITI MODESTO VALUE CALLED TO [facility]01/20/25 0722 Evangelina Ayon.RESULTS READ BACK BY SAME. Performed By: #### L 501.9520, L500.4050, L100.0500, L503.0106 ####[facility] [address] [place], [address] Hematocrit (Bld) [Volume fraction] 19.8 % Low 40-54 [facility] Comment on above: Order Comment: CRITI MODESTO VALUE CALLED TO [facility]01/20/25 0722 Evangelina Ayon.RESULTS READ BACK BY SAME. Performed By: #### L 501.9520, L500.4050, L100.0500, L503.0106 ####[facility] [address] [place], [address] Hemoglobin (Bld) [Mass/Vol] 7.5 g/dL Low 13.0-16.5 [facility] Comment on above: Order Comment: CRITI MODESTO VALUE CALLED TO [facility]01/20/25 0722 Evangelina Ayon.RESULTS READ BACK BY SAME. Performed By: #### L 501.9520, L500.4050, L100.0500, L503.0106 ####[facility] [address] [place], [address] MCH (RBC) [Entitic mass] 32.9 pg High 27.0-32.0 [facility] Comment on above: Order Comment: CRITI MODESTO VALUE CALLED TO [facility]01/20/25721 Evangelina Ayon.RESULTS READ BACK BY SAME. Performed By: #### L 501.9520, L500.4050, L100.0500, L503.0106 ####[facility] [address] [place], [address] MCHC (RBC) [Mass/Vol] 37.9 g/dL High 32-36 [facility] Comment on above: Order Comment: CRITI MODESTO VALUE CALLED TO [facility]01/20/25721 Evangelina Ayon.RESULTS READ BACK BY SAME. Performed By: #### L 501.9520, L500.4050, L100.0500, L503.0106 ####[facility] [address] [place], [address] MCV (RBC) [Entitic vol] 86.8 fL Normal 80-94 [facility] Comment on above: Order Comment: CRITI MODESTO VALUE CALLED TO [facility]01/20/25 Evangelina Ayon.RESULTS READ BACK BY SAME. Performed By: #### L 501.9520, L500.4050, L100.0500, L503.0106 ####[facility] [address] [place], [address] Platelet mean volume (Bld) [Entitic vol] 10.5 fL Normal 6.2-12.0 [facility] Comment on above: Order Comment: CRITI MODESTO VALUE CALLED TO [facility]01/20/25721 Evangelina Ayon.RESULTS READ BACK BY SAME. Performed By: #### L 501.9520, L500.4050, L100.0500, L503.0106 ####[facility] [address] [place], [address] Platelets (Bld) [#/Vol] 32 10*3/uL Invalid Interpretation Code 150-450 [facility] Comment on above: Order Comment: CRITI MODESTO VALUE CALLED TO [facility]01/20/25721 Evangelina Ayon.RESULTS READ BACK BY SAME. Performed By: #### L 501.9520, L500.4050, L100.0500, L503.0106 ####[facility] [address] [place], [address] RBC (Bld) [#/Vol] 2.28 10*6/uL Low 4.6-6.2 [facility] Comment on above: Order Comment: CRITI MODESTO VALUE CALLED TO [facility]01/20/25721 Evangelina Ayon.RESULTS READ BACK BY SAME. Performed By: #### L 501.9520, L500.4050, L100.0500, L503.0106 ####[facility] [address] [place], [address] RDW SD 56.9 fl High 35.1-43.9 [facility] Comment on above: Order Comment: CRITI MODESTO VALUE CALLED TO [facility]01/20/25 Evangelina Ayon.RESULTS READ BACK BY SAME. Performed By: #### L 501.9520, L500.4050, L100.0500, L503.0106 ####[facility] [address] [place], [address] WBC (Bld) [#/Vol] 2.2 10*3/uL Low 4.4-11.0 [facility] Comment on above: Order Comment: CRITI MODESTO VALUE CALLED TO [facility]01/20/2522 Evangelina Ayon.RESULTS READ BACK BY SAME. Performed By: #### L 501.9520, L500.4050, L100.0500, L503.0106 ####[facility] [address] [place], [address] Comprehensive Metabolic Prof [facility] 01-20-2025 Albumin [Mass/Vol] 3.1 g/dL Low 3.4-4.8 [facility] Comment on above: Performed By: #### L 501.9520, L500.4050, L100.0500, L503.0106 ####[facility] [address] [place], [address] Albumin/Globulin [Mass ratio] 1.2 {ratio} Normal 0.9-2.4 [facility] Comment on above: Performed By: #### L 501.9520, L500.4050, L100.0500, L503.0106 ####[facility] [address] [place], [address] ALK PHOS 76 U/L Normal 40-129 [facility] Comment on above: Performed By: #### L 501.9520, L500.4050, L100.0500, L503.0106 ####[facility] [address] [place], [address] ALT [Catalytic activity/Vol] 16 U/L Normal <=46 [facility] Comment on above: Performed By: #### L 501.9520, L500.4050, L100.0500, L503.0106 ####[facility] [address] [place], [address] AST [Catalytic activity/Vol] 51 U/L High <=37 [facility] Comment on above: Performed By: #### L 501.9520, L500.4050, L100.0500, L503.0106 ####[facility] [address] [place], [address] Bilirubin [Mass/Vol] 1.36 mg/dL High 0.00-1.30 [facility] Comment on above: Performed By: #### L 501.9520, L500.4050, L100.0500, L503.0106 ####[facility] [address] [place], [address] BUN/CRE 16.4 RATIO Normal 10-20 [facility] Comment on above: Performed By: #### L 501.9520, L500.4050, L100.0500, L503.0106 ####[facility] [address] [place], [address] Calcium [Mass/Vol] 7.5 mg/dL Low 7.6-11.0 [facility] Comment on above: Performed By: #### L 501.9520, L500.4050, L100.0500, L503.0106 ####[facility] [address] [place], [address] Chloride [Moles/Vol] 93 mmol/L Low 98-108 [facility] Comment on above: Performed By: #### L 501.9520, L500.4050, L100.0500, L503.0106 ####[facility] [address] [place], [address] CO2 [Moles/Vol] 16.2 mmol/L Low 21.0-32.0 [facility] Comment on above: Performed By: #### L 501.9520, L500.4050, L100.0500, L503.0106 ####[facility] [address] [place], [address] Creatinine [Mass/Vol] 0.92 mg/dL Normal 0.70-1.20 [facility] Comment on above: Performed By: #### L 501.9520, L500.4050, L100.0500, L503.0106 ####[facility] [address] [place], [address] ECRCL 84.86 ml/min Normal 50-250 [facility] Comment on above: Performed By: #### L 501.9520, L500.4050, L100.0500, L503.0106 ####[facility] [address] [place], [address] GAP 14 Normal 5-15 [facility] Comment on above: Performed By: #### L 501.9520, L500.4050, L100.0500, L503.0106 ####[facility] [address] [place], [address] GFR/1.73 sq M.predicted among non-blacks MDRD (S/P/Bld) [Vol rate/Area] 93 mL/min/{1.73_m2} Normal >60 [facility] Comment on above: Result Comment: mL/m in/1.73m2 CKD-EPI Creatinine Equation (2020) Performed By: #### L 501.9520, L500.4050, L100.0500, L503.0106 ####[facility] [address] [place], [address] Globulin (S) [Mass/Vol] 2.5 g/dL Normal 2.2-4.2 [facility] Comment on above: Performed By: #### L 501.9520, L500.4050, L100.0500, L503.0106 ####[facility] [address] [place], [address] Glucose [Mass/Vol] 153 mg/dL High 70-99 [facility] Comment on above: Performed By: #### L 501.9520, L500.4050, L100.0500, L503.0106 ####[facility] [address] [place], [address] Potassium [Moles/Vol] 3.0 mmol/L Low 3.3-5.1 [facility] Comment on above: Performed By: #### L 501.9520, L500.4050, L100.0500, L503.0106 ####[facility] [address] [place], [address] Sodium [Moles/Vol] 124 mmol/L Low 133-145 [facility] Comment on above: Performed By: #### L 501.9520, L500.4050, L100.0500, L503.0106 ####[facility] [address] [place], [address] T PROT 5.6 g/dL Low 5.9-8.4 [facility] Comment on above: Performed By: #### L 501.9520, L500.4050, L100.0500, L503.0106 ####[facility] [address] [place], [address] Urea nitrogen [Mass/Vol] 15 mg/dL Normal 4-19 [facility] Comment on above: Performed By: #### L 501.9520, L500.4050, L100.0500, L503.0106 ####[facility] [address] [place], [address] Folate [Mass/volume] in Seru m or PlasmaOrdered By: Shorty Lea on 01-20-2025 Folate [Mass/Vol] 3.23 ng/mL Low 4.60-34.80 [facility] Comment on above: Hemolysis, Results w ill be affected, Requires Recollection. Folates,Serum (Folic Acid)on 01-20-2025 FOLATES,SERUM 3.23 ng/mL Low 4.60-34.80 [facility] Comment on above: Result Comment: Hemo lysis, Results will be affected, Requires Recollection. Performed By: #### L 506.0200 ####[facility] [address] [place], [address] Magnesiumon 01-20-2025 Magnesium [Mass/Vol] 1.8 mg/dL Normal 1.5-2.2 [facility] Comment on above: Performed By: #### L 501.5200, L501.2300 ####[facility] [address] [place], [place], [address] Magnesium measurement (mass/ volume)Ordered By: Shorty Lea on 01-20-2025 Magnesium (Unsp spec) [Mass/Vol] 1.8 mg/dL 1.5-2.2 [facility] Phosphoruson 01-20-2025 Phosphate [Mass/Vol] 0.7 mg/dL Invalid Interpretation Code 2.7-4.5 [facility] Comment on above: Result Comment: Crit ical Result(s) Called at: 01/20/2025-14:36 by: Eric to Krysten Kauffman??Results read back by same. Performed By: #### L 501.5200, L501.2300 ####[facility] [address] [place], [place], [address] TSH DL <= 0.005 mIU/L QnOrde red By: Shorty Lea on 01-20-2025 TSH Qn 2.000 uIU/mL 0.300-4.200 [facility] Thyroid Stim Hormone (TSH)on 01-20-2025 TSH 2.000 uIU/mL Normal 0.300-4.200 [facility] Comment on above: Performed By: #### L 501.9520, L500.4050, L100.0500, L503.0106 ####[facility] [address] [place], [address] Vitamin B12on 01-20-2025 Cobalamin (Vitamin B12) [Mass/Vol] 418 pg/mL Normal 180-914 [facility] Comment on above: Performed By: #### L 501.9520, L500.4050, L100.0500, L503.0106 ####[facility] [address] [place], [address] Vitamin B12 ser/plasOrdered By: Shorty Lea on 01-20-2025 Cobalamin (Vitamin B12) [Mass/Vol] 418 pg/mL 180-914 [facility] Activated partial thrombopla stin time (aPTT) in platelet poor plasma by coagulation aOrdered By: Milagro Sanders on 01-19-2025 aPTT Coag (PPP) [Time] 35.9 s 24.1-36.2 [facility] Alcohol, Blood (Medical)-Ser umon 01-19-2025 SERUM ETOH < 10.1 Normal <=10.0 [facility] Comment on above: Result Comment: This test is for medical purposes only. The legaldefinition of intoxication varies according to local law. Performed By: #### L 300.3900, L300.4310, L100.0100, L500.4050, L501.9100, L501.2450, L501.3620 ####[facility] [address] [place], [address] [id number] 01-19-2025 DIRECT JAIME NEG w/POLYSPECIFIC Normal NEGATIVE [facility] Comment on above: Performed By: #### L 3100.1850, O54810-1, L504.2610 ####[facility] [address] [place], [address] BRCon 01-19-[address] [facility] Comment on above: Result Comment: [id number] AP RC TRANSFUSED 01/19/25 [id number] AP RC TRANSFUSED 01/19/25 1020 Performed By: #### B RC, BTS, M100.7900 ####[facility] [address] [place], [address] Result Comment: [id number] AP RC TRANSFUSED 01/20/25 1419 Performed By: #### B RC ####[facility] [address] [place], [address] Basic Metabolic Profile (BMP )on 01-19-2025 BUN/CRE 15.8 RATIO Normal 10-20 [facility] Comment on above: Performed By: #### L 500.2500 ####[facility] [address] [place], [address] Calcium [Mass/Vol] 7.6 mg/dL Normal 7.6-11.0 [facility] Comment on above: Performed By: #### L 500.2500 ####[facility] [address] [place], [address] Chloride [Moles/Vol] 89 mmol/L Low 98-108 [facility] Comment on above: Performed By: #### L 500.2500 ####[facility] [address] [place], [address] CO2 [Moles/Vol] 14.5 mmol/L Low 21.0-32.0 [facility] Comment on above: Performed By: #### L 500.2500 ####[facility] [address] [place], [address] Creatinine [Mass/Vol] 1.00 mg/dL Normal 0.70-1.20 [facility] Comment on above: Performed By: #### L 500.2500 ####[facility] [address] [place], [address] ECRCL 78.07 ml/min Normal 50-250 [facility] Comment on above: Performed By: #### L 500.2500 ####[facility] [address] [place], [address] GAP 19 High 5-15 [facility] Comment on above: Performed By: #### L 500.2500 ####[facility] [address] [place], [address] GFR/1.73 sq M.predicted among non-blacks MDRD (S/P/Bld) [Vol rate/Area] 85 mL/min/{1.73_m2} Normal >60 [facility] Comment on above: Result Comment: mL/m in/1.73m2 CKD-EPI Creatinine Equation (2020) Performed By: #### L 500.2500 ####[facility] [address] [place], [address] Glucose [Mass/Vol] 142 mg/dL High 70-99 [facility] Comment on above: Performed By: #### L 500.2500 ####[facility] [address] [place], [address] Potassium [Moles/Vol] 3.1 mmol/L Low 3.3-5.1 [facility] Comment on above: Performed By: #### L 500.2500 ####[facility] [address] [place], [address] Sodium [Moles/Vol] 122 mmol/L Low 133-145 [facility] Comment on above: Performed By: #### L 500.2500 ####[facility] [address] [place], [address] Urea nitrogen [Mass/Vol] 16 mg/dL Normal 4-19 [facility] Comment on above: Performed By: #### L 500.2500 ####[facility] [address] [place], [address] Beta-Hydroxbytyrateon 2024 BETA-HYDROXYBUT 3.0 mmol/L Normal 0.0-0.3 [facility] Comment on above: Performed By: #### L 501.2300, L501.5101, L501.6901 ####[facility] [address] [place], [address] Beta-hydroxybutyrateOrdered By: Shorty Lea on 01-19-2025 Beta hydroxybutyrate [Mass/Vol] 3.0 mmol/L 0.0-0.3 [facility] Bilirubin Test strip Ql (U)O rdered By: Milagro Sanders on 01-19-2025 Bilirubin Ql (U) Negative Negative [facility] Brain/Head without Contrasto n 01-19-2025 Brain/Head without Contrast Normal [facility] CBC W/Diff, Automatedon 05- SMEAR COMMENT COMMENT Normal [facility] Comment on above: Result Comment: LYMP HOPENIA.ANEMIA. Performed By: #### L 300.3900, L300.4310, L100.0100, L500.4050, L501.9100, L501.2450, L501.3620 ####[facility] [address] [place], [place], [phone] Anisocytosis Ql (Bld) 2+ Normal [facility] Comment on above: Performed By: #### L 300.3900, L300.4310, L100.0100, L500.4050, L501.9100, L501.2450, L501.3620 ####[facility] [address] [place], [address] PLT EST MKD DEC Normal ADEQ [facility] Comment on above: Performed By: #### L 300.3900, L300.4310, L100.0100, L500.4050, L501.9100, L501.2450, L501.3620 ####[facility] [address] [place], [place], [phone] CO2 (BldV) [Moles/Vol]Ordere d By: Milagro Sanders on 01-19-2025 CO2 [Moles/Vol] 17 mmol/L Low 23-33 [facility] CPK Total, Creatine Kinaseon 01-19-2025 CPK TOTAL 19 U/L Low 24-195 [facility] Comment on above: Performed By: #### L 300.3900, L300.4310, L100.0100, L500.4050, L501.9100, L501.2450, L501.3620 ####[facility] [address] [place], [place], [phone] Chest 1 View (Portable)on Chest 1 View (Portable) Normal [facility] Comprehensive Metabolic Prof ilon 01-19-2025 Albumin [Mass/Vol] 3.5 g/dL Normal 3.4-4.8 [facility] Comment on above: Performed By: #### L 300.3900, L300.4310, L100.0100, L500.4050, L501.9100, L501.2450, L501.3620 ####[facility] [address] [place], [address] Albumin/Globulin [Mass ratio] 1.2 {ratio} Normal 0.9-2.4 [facility] Comment on above: Performed By: #### L 300.3900, L300.4310, L100.0100, L500.4050, L501.9100, L501.2450, L501.3620 ####[facility] [address] [place], [address] ALK PHOS 93 U/L Normal 40-129 [facility] Comment on above: Performed By: #### L 300.3900, L300.4310, L100.0100, L500.4050, L501.9100, L501.2450, L501.3620 ####[facility] [address] [place], [address] ALT [Catalytic activity/Vol] 21 U/L Normal <=46 [facility] Comment on above: Performed By: #### L 300.3900, L300.4310, L100.0100, L500.4050, L501.9100, L501.2450, L501.3620 ####[facility] [address] [place], [address] AST [Catalytic activity/Vol] 49 U/L High <=37 [facility] Comment on above: Performed By: #### L 300.3900, L300.4310, L100.0100, L500.4050, L501.9100, L501.2450, L501.3620 ####[facility] [address] [place], [address] Bilirubin [Mass/Vol] 0.61 mg/dL Normal 0.00-1.30 [facility] Comment on above: Performed By: #### L 300.3900, L300.4310, L100.0100, L500.4050, L501.9100, L501.2450, L501.3620 ####[facility] [address] [place], [address] BUN/CRE 14.4 RATIO Normal 10-20 [facility] Comment on above: Performed By: #### L 300.3900, L300.4310, L100.0100, L500.4050, L501.9100, L501.2450, L501.3620 ####[facility] [address] [place], [address] Calcium [Mass/Vol] 7.8 mg/dL Normal 7.6-11.0 [facility] Comment on above: Performed By: #### L 300.3900, L300.4310, L100.0100, L500.4050, L501.9100, L501.2450, L501.3620 ####[facility] [address] [place], [address] Chloride [Moles/Vol] 85 mmol/L Low 98-108 [facility] Comment on above: Performed By: #### L 300.3900, L300.4310, L100.0100, L500.4050, L501.9100, L501.2450, L501.3620 ####[facility] [address] [place], [address] CO2 [Moles/Vol] 15.7 mmol/L Low 21.0-32.0 [facility] Comment on above: Performed By: #### L 300.3900, L300.4310, L100.0100, L500.4050, L501.9100, L501.2450, L501.3620 ####[facility] [address] [place], [address] Creatinine [Mass/Vol] 1.02 mg/dL Normal 0.70-1.20 [facility] Comment on above: Performed By: #### L 300.3900, L300.4310, L100.0100, L500.4050, L501.9100, L501.2450, L501.3620 ####[facility] [address] [place], [address] ECRCL 74.13 ml/min Normal 50-250 [facility] Comment on above: Performed By: #### L 300.3900, L300.4310, L100.0100, L500.4050, L501.9100, L501.2450, L501.3620 ####[facility] [address] [place], [address] GAP 20 High 5-15 [facility] Comment on above: Performed By: #### L 300.3900, L300.4310, L100.0100, L500.4050, L501.9100, L501.2450, L501.3620 ####[facility] [address] [place], [place], [phone] GFR/1.73 sq M.predicted among non-blacks MDRD (S/P/Bld) [Vol rate/Area] 83 mL/min/{1.73_m2} Normal >60 [facility] Comment on above: Result Comment: mL/m in/1.73m2 CKD-EPI Creatinine Equation (2020) Performed By: #### L 300.3900, L300.4310, L100.0100, L500.4050, L501.9100, L501.2450, L501.3620 ####[facility] [address] [place], [place], [phone] Globulin (S) [Mass/Vol] 3.0 g/dL Normal 2.2-4.2 [facility] Comment on above: Performed By: #### L 300.3900, L300.4310, L100.0100, L500.4050, L501.9100, L501.2450, L501.3620 ####[facility] [address] [place], [address] Glucose [Mass/Vol] 118 mg/dL High 70-99 [facility] Comment on above: Performed By: #### L 300.3900, L300.4310, L100.0100, L500.4050, L501.9100, L501.2450, L501.3620 ####[facility] [address] [place], [address] Potassium [Moles/Vol] 2.9 mmol/L Low 3.3-5.1 [facility] Comment on above: Performed By: #### L 300.3900, L300.4310, L100.0100, L500.4050, L501.9100, L501.2450, L501.3620 ####[facility] [address] [place], [address] Sodium [Moles/Vol] 121 mmol/L Low 133-145 [facility] Comment on above: Performed By: #### L 300.3900, L300.4310, L100.0100, L500.4050, L501.9100, L501.2450, L501.3620 ####[facility] [address] [place], [address] T PROT 6.5 g/dL Normal 5.9-8.4 [facility] Comment on above: Performed By: #### L 300.3900, L300.4310, L100.0100, L500.4050, L501.9100, L501.2450, L501.3620 ####[facility] [address] [place], [address] Urea nitrogen [Mass/Vol] 15 mg/dL Normal 4-19 [facility] Comment on above: Performed By: #### L 300.3900, L300.4310, L100.0100, L500.4050, L501.9100, L501.2450, L501.3620 ####[facility] [address] [place], [address] Emergency Department Summary on 01-19-2025 Emergency Department Summary Normal [facility] Gamma glutamyl transferase ( GGT) measurementOrdered By: Shorty Lea on 01-19-2025 Amylase [Catalytic activity/Vol] 31 U/L 0-65 [facility] Comment on above: Performed at: [address] [id number] Director: Hrarison Villareal PhD, Phone: [phone] H AND P Exam - Hospitaliston 01-19-2025 H&P Exam - Hospitalist Normal [facility] HH, Hemoglobin AND Hematocri ton 01-19-2025 Hematocrit (Bld) [Volume fraction] 22.4 % Low 40-54 [facility] Comment on above: Performed By: #### L 100.0600 ####[facility] [address] [facility] [address] [place], [place], [phone] Hemoglobin (Bld) [Mass/Vol] 8.3 g/dL Low 13.0-16.5 [facility] Comment on above: Performed By: #### L 100.0600 ####[facility] [address] [place], [address] Immature platelet percentage Ordered By: Shorty Lea on 01-19-2025 Platelets reticulated/100 platelets Auto (Bld) 4.7 % 1.0-7.9 [facility] Comment on above: Low PLT + [...] INR Coag (Bld) [Relative time] 1.0 {INR} [facility] Ketones Test strip Ql (U)Ord ered By: Milagro Sanders on 01-19-2025 Ketones Ql (U) 50 mg/dl High Negative [facility] LDHon 01-19-2025 LDH 191 U/L Normal 87-241 [facility] Comment on above: Performed By: #### L 3100.1850, B76032-2, L504.2610 ####[facility] [address] [place], [place], [phone] Lactate dehydrogenase (LDH) measurementOrdered By: Shorty Lea on 01-19-2025 LDH [Catalytic activity/Vol] 191 U/L 87-241 [facility] Lipaseon 01-19-2025 Lipase [Catalytic activity/Vol] 36 U/L Normal 13-75 [facility] Comment on above: Result Comment: Sonny lubin note:LIPASE revised reference range effective 22.New Lipase methodology. Expected to produce lower valuesthan the previous assay method.NEW Reference Range: 13 - 75 U/L Performed By: #### L 300.3900, L300.4310, L100.0100, L500.4050, L501.9100, L501.2450, L501.3620 ####[facility] [address] [place], [place], [phone] Lipase measurementOrdered By : Milagro Sanders on 01-19-2025 Lipase [Catalytic activity/Vol] 36 U/L 13-75 [facility] Comment on above: Please note:LIPASE r evised reference range effective 22. New Lipase methodology. Expected to produce lower values than the previous assay method. NEW Reference Range: 13 - 75 U/L Magnesiumon 01-19-2025 Magnesium [Mass/Vol] 1.0 mg/dL Low 1.5-2.2 [facility] Comment on above: Performed By: #### L 501.5200 ####[facility] [address] [place], [place], [phone] Microscopic analysis of urin e for red blood cells (RBC)Ordered By: Milagro Sanders on 01-19-2025 Microscopic analysis of urine for red blood cells (RBC) 0 SEEN /hpf 0-5 [facility] Mucus LM Ql (Urine sed)Order ed By: Milagro Sanders on 01-19-2025 Mucus Ql (Urine sed) 0 SEEN /hpf [facility] Nitrite Test strip Ql (U)Ord ered By: Milagro Sanders on 01-19-2025 Nitrite Ql (U) Negative Negative [facility] No Panel InformationOrdered By: Milagro Sanders on 01-19-2025 Blood Gas Sample Site Not entered [facility] Blood Gas Specimen Type SAGRARIO [facility] Oxygen Delivery Device Not entered [facility] Partial Thromboplast Timeon 01-19-2025 aPTT Coag (Bld) [Time] 35.9 s Normal 24.1-36.2 [facility] Comment on above: Performed By: #### L 300.3900, L300.4310, L100.0100, L500.4050, L501.9100, L501.2450, L501.3620 ####[facility] [address] [place], [place], [phone] Pelvis 1 or 2 Viewson 2024 Pelvis 1 or 2 Views Normal [facility] Phosphoruson 01-19-2025 Phosphate [Mass/Vol] 1.5 mg/dL Low 2.7-4.5 [facility] Comment on above: Performed By: #### L 501.2300, L501.5101, L501.6901 ####[facility] [address] [place], [place], [phone] Protein Test strip Ql (U)Ord ered By: Milagro Sanders on 01-19-2025 Protein Ql (U) 30 mg/dl High Negative [facility] Prothrombin Time w/INRon INR Coag (PPP) [Relative time] 1.0 {INR} Normal [facility] Comment on above: Performed By: #### L 300.3900, L300.4310, L100.0100, L500.4050, L501.9100, L501.2450, L501.3620 ####[facility] [address] [place], [address] PT Coag (PPP) [Time] 13.8 s Normal 11.7-14.9 [facility] Comment on above: Performed By: #### L 300.3900, L300.4310, L100.0100, L500.4050, L501.9100, L501.2450, L501.3620 ####[facility] [address] [place], [place], [phone] Prothrombin timeOrdered By: Milagro Sanders on 01-19-2025 PT Coag (PPP) [Time] 13.8 s 11.7-14.9 [facility] Retic Panelon 01-19-2025 IM RET FRACTION 6.60 Normal 3.00-15.90 [facility] Comment on above: Performed By: #### L 100.9950 ####[facility] [address] [place], [address] IPF 4.7 Normal 1.0-7.9 [facility] Comment on above: Result Comment: Low PLT + Low IPF suggest a bone marrow production disorderLow PLT + high IPF suggests peripheral destruction(e.g.ITP, TTP, HIT, DIC, autoimmune) or bone marrow recoveryTrending of serial IPF measurements is recommended whenevaluating for bone marrow responesValue above normal range indicates an increase in RBCcellular response from bone marrow. Performed By: #### L 100.9950 ####[facility] [address] [place], [place], [phone] RET-HE 35.9 pg High 30-35 [facility] Comment on above: Performed By: #### L 100.9950 ####[facility] [address] [place], [address] Retic Count 0.26 Low 0.5-1.5 [facility] Comment on above: Performed By: #### L 100.9950 ####[facility] [address] [place], [address] Reticulocyte hemoglobin equi valent (RET-He) measurementOrdered By: Shorty Lea on 01-19-2025 Hemoglobin (Reticulocytes) [Entitic mass] 35.9 pg High 30-35 [facility] Reticulocytes Auto (Bld) [#/ Vol]Ordered By: Shorty Lea on 01-19-2025 Reticulocytes/100 RBC (Bld) 0.26 % Low 0.5-1.5 [facility] Serum or plasma creatine kin ase activityOrdered By: Milagro Sanders on 01-19-2025 CK [Catalytic activity/Vol] 19 U/L Low 24-195 [facility] Serum or plasma ethanol ed urement (mass/volume)Ordered By: Milagro Sanders on 01-19-2025 Ethanol [Mass/Vol] mg/dL <10.1 [facility] Comment on above: This test is for med ical purposes only. The legal definition of intoxication varies according to local law. Squamous epithelial cells de tection in urine sediment by light microscopyOrdered By: Milagro Sanders on 01-19-2025 Epithelial cells.squamous LM Ql (Urine sed) 0-5 SEEN /hpf 0-5 [facility] Stool Occult Blood iFOBon STOB Normal [facility] Comment on above: Performed By: #### B RC, BTS, M100.7900 ####[facility] [address] [place], [place], [phone] Stool gastrointestinal hemog lobin detection by immunologic methodOrdered By: Milagro Sanders on 01-19-2025 Lower GI hemoglobin IA Ql (Stl) [facility] Type AND Screenon 01-19-2025 ABO and Rh group Nom (Bld) Blood group A Rh(D) positive Normal [facility] Comment on above: Order Comment: CMV N EG? NNumber of units to transfuse: 2Is pt's Hgb is = to 7.0 mg/dl or Hct </= 21%? YReason for Ordering Blood: ChronicAre the blood/blood products to be transfused? YIs the patient having/had surgery? NWhen ReadyNY Performed By: #### B RC, BTS, M100.7900 ####[facility] [address] [place], [address] Urinalysis, Completeon 01-19 EPI,SQUAMOUS 0-5 SEEN Normal 0-5 [facility] Comment on above: Order Comment: CLEAN CATCH Performed By: #### L 400.0001 ####[facility] [address] [place], [address] BACTERIA 0 SEEN Normal None Seen [facility] Comment on above: Order Comment: CLEAN CATCH Performed By: #### L 400.0001 ####[facility] [address] [place], [address] Mucus Ql (Urine sed) 0 SEEN Normal [facility] Comment on above: Order Comment: CLEAN CATCH Performed By: #### L 400.0001 ####[facility] [address] [place], [address] RBC 0 SEEN Normal 0-5 [facility] Comment on above: Order Comment: CLEAN CATCH Performed By: #### L 400.0001 ####[facility] [address] [place], [address] WBC 0 SEEN Normal 0-5 [facility] Comment on above: Order Comment: CLEAN CATCH Performed By: #### L 400.0001 ####[facility] [address] [place], [address] Urine clarityOrdered By: Brisa Sanders on 01-19-2025 Clarity (U) Clear Clear [facility] Urine color determinationOrd ered By: Milagro Sanders on 01-19-2025 Color (U) Yellow Yellow [facility] Urine glucose detectionOrder ed By: Milagro Sanders on 01-19-2025 Glucose Ql (U) Normal mg/dl Normal [facility] Urine leukocyte esterase det ection by dipstickOrdered By: Milagro Sanders on 01-19-2025 Leukocyte esterase Test strip Ql (U) Negative Negative [facility] Urine pHOrdered By: Milagro juárez on 01-19-2025 pH (U) 7.0 [pH] 5.0 - 8.0 [facility] Urine sediment bacteria coun t by microscopy (number/high power field)Ordered By: Milagro Sanders on 01-19-2025 Bacteria LM.HPF (Urine sed) [#/Area] 0 /[HPF] None Seen [facility] Urine specific gravity measu rementOrdered By: Milagro Sanders on 01-19-2025 Specific gravity (U) [Rel density] 1.005 1.002-1.030 [facility] Urine urobilinogen measureme ntOrdered By: Milagro Sanders on 01-19-2025 Urobilinogen Ql (U) 1 mg/dl High Normal [facility] Venous Blood Gason Blood Gas Type SAGRARIO Normal [facility] Comment on above: Performed By: #### L 9000.0810 ####[facility] [address] [place], [place], [phone] CO2 [Moles/Vol] 17 mmol/L Low 23-33 [facility] Comment on above: Performed By: #### L 9000.0810 ####[facility] [address] [place], [address] HCO3 (Bld) [Moles/Vol] 16 mmol/L Low 22-26 [facility] Comment on above: Performed By: #### L 9000.0810 ####[facility] [address] [place], [place], [phone] O2 Delivery Dev Not entered Normal [facility] Comment on above: Performed By: #### L 9000.0810 ####[facility] [address] [place], [address] SITE Not entered Normal [facility] Comment on above: Performed By: #### L 9000.0810 ####[facility] [address] [place], [address] VBG BE -10 mmol/L Low -1.0-3.5 [facility] Comment on above: Performed By: #### L 9000.0810 ####[facility] [address] [place], [address] VBG pCO2 26.8 mmHg Low 41-51 [facility] Comment on above: Performed By: #### L 9000.0810 ####[facility] [address] [place], [address] VBG pH 7.38 Normal 7.32-7.42 [facility] Comment on above: Performed By: #### L 9000.0810 ####[facility] [address] [place], [address] VBG PO2 81 mmHg High 25-40 [facility] Comment on above: Performed By: #### L 9000.0810 ####[facility] [address] [place], [address] VBG SO2 96 High 50-70 [facility] Comment on above: Performed By: #### L 9000.0810 ####[facility] [address] [place], [address] Venous blood base excess poly surementOrdered By: Milagro Sanders on 01-19-2025 Base excess Calc (BldV) [Moles/Vol] -10 mmol/L Low -1.0-3.5 [facility] Venous blood bicarbonate poly surementOrdered By: Milagro Sanders on 01-19-2025 HCO3 (Bld) [Moles/Vol] 16 mmol/L Low 22-26 [facility] Venous blood oxygen saturati on measurementOrdered By: Milagro Sanders on 01-19-2025 Oxygen saturation in Blood 96 % High 50-70 [facility] Venous blood pH measurementO rdered By: Milagro Sanders on 01-19-2025 pH (BldV) 7.38 [pH] 7.32-7.42 [facility] Venous blood partial pressur e of carbon dioxide measurementOrdered By: Milagro Sanders on 01-19-2025 CO2 (BldV) [Partial pressure] 26.8 mm[Hg] Low 41-51 [facility] Venous blood partial pressur e of oxygen measurementOrdered By: Milagro Sanders on 01-19-2025 Oxygen (BldV) [Partial pressure] 81 mm[Hg] High 25-40 [facility] White blood cell countOrdere d By: Milagro Sanders on 01-19-2025 White blood cell count 0 SEEN /hpf 0-5 [facility] OT Functional Capacity Evalo n 10-05-2024 OT Functional Capacity Eval Normal [facility] OT Functional Capacity Eval Normal [facility] CBC W/Diff, Automatedon 12- Absolute Lymph 1.10 X10 3/uL Normal 0.83-4.51 [facility] Comment on above: Performed By: #### L 500.4050, L501.9520, L100.0100, L500.4100 ####[facility] [address] [place], [address] Absolute Neut 3.1 X10 3/uL Normal 2.0-7.7 [facility] Comment on above: Performed By: #### L 500.4050, L501.9520, L100.0100, L500.4100 ####[facility] [address] [place], [address] Basophils/100 WBC (Bld) 0.6 % Normal 0-1 [facility] Comment on above: Performed By: #### L 500.4050, L501.9520, L100.0100, L500.4100 ####[facility] [address] [place], [address] Eosinophils/100 WBC (Bld) 4.8 % Normal 0-5 [facility] Comment on above: Performed By: #### L 500.4050, L501.9520, L100.0100, L500.4100 ####[facility] [address] [place], [address] Erythrocyte distribution width (RBC) [Ratio] 13.2 % Normal 11.6-14.6 [facility] Comment on above: Performed By: #### L 500.4050, L501.9520, L100.0100, L500.4100 ####[facility] [address] [place], [address] Hematocrit (Bld) [Volume fraction] 26.6 % Low 40-54 [facility] Comment on above: Performed By: #### L 500.4050, L501.9520, L100.0100, L500.4100 ####[facility] [address] [place], [address] Hemoglobin (Bld) [Mass/Vol] 9.5 g/dL Low 13.0-16.5 [facility] Comment on above: Performed By: #### L 500.4050, L501.9520, L100.0100, L500.4100 ####[facility] [address] [place], [address] IG% 0.600 Normal 0.0-0.9 [facility] Comment on above: Result Comment: IG% - Immature Granulocytes (promyelocytes, myelocytes andmetamyelocytes) > 1% indicates that a LEFT SHIFT is Present. Performed By: #### L 500.4050, L501.9520, L100.0100, L500.4100 ####[facility] [address] [place], [address] Lymphocytes/100 WBC (Bld) 22.2 % Normal 19-41 [facility] Comment on above: Performed By: #### L 500.4050, L501.9520, L100.0100, L500.4100 ####[facility] [address] [place], [address] MCH (RBC) [Entitic mass] 34.7 pg High 27.0-32.0 [facility] Comment on above: Performed By: #### L 500.4050, L501.9520, L100.0100, L500.4100 ####[facility] [address] [place], [address] MCHC (RBC) [Mass/Vol] 35.7 g/dL Normal 32-36 [facility] Comment on above: Performed By: #### L 500.4050, L501.9520, L100.0100, L500.4100 ####[facility] [address] [place], [address] MCV (RBC) [Entitic vol] 97.1 fL High 80-94 [facility] Comment on above: Performed By: #### L 500.4050, L501.9520, L100.0100, L500.4100 ####[facility] [address] [place], [address] Monocytes/100 WBC (Bld) 9.3 % Normal 0-10 [facility] Comment on above: Performed By: #### L 500.4050, L501.9520, L100.0100, L500.4100 ####[facility] [address] [place], [address] Neutrophils/100 WBC (Bld) 62.5 % Normal 47-70 [facility] Comment on above: Performed By: #### L 500.4050, L501.9520, L100.0100, L500.4100 ####[facility] [address] [place], [address] Nucleated RBC (Bld) [#/Vol] 0 10*3/uL Normal 0-5 [facility] Comment on above: Performed By: #### L 500.4050, L501.9520, L100.0100, L500.4100 ####[facility] [address] [place], [address] Platelet mean volume (Bld) [Entitic vol] 9.1 fL Normal 6.2-12.0 [facility] Comment on above: Performed By: #### L 500.4050, L501.9520, L100.0100, L500.4100 ####[facility] [address] [place], [address] Platelets (Bld) [#/Vol] 143 10*3/uL Low 150-450 [facility] Comment on above: Performed By: #### L 500.4050, L501.9520, L100.0100, L500.4100 ####[facility] [address] [place], [address] RBC (Bld) [#/Vol] 2.74 10*6/uL Low 4.6-6.2 [facility] Comment on above: Performed By: #### L 500.4050, L501.9520, L100.0100, L500.4100 ####[facility] [address] [place], [address] RDW SD 46.3 fl High 35.1-43.9 [facility] Comment on above: Performed By: #### L 500.4050, L501.9520, L100.0100, L500.4100 ####[facility] [address] [place], [address] WBC (Bld) [#/Vol] 5.0 10*3/uL Normal 4.4-11.0 [facility] Comment on above: Performed By: #### L 500.4050, L501.9520, L100.0100, L500.4100 ####[facility] [address] [place], [address] Comprehensive Metabolic [facility] ilon 08-30-2024 Albumin [Mass/Vol] 3.8 g/dL Normal 3.2-5.0 [facility] Comment on above: Performed By: #### L 500.4050, L501.9520, L100.0100, L500.4100 ####[facility] [address] [place], [address] Albumin/Globulin [Mass ratio] 1.1 {ratio} Normal 0.9-2.4 [facility] Comment on above: Performed By: #### L 500.4050, L501.9520, L100.0100, L500.4100 ####[facility] [address] [place], [address] ALK P 84 U/L Normal 45-117 [facility] Comment on above: Performed By: #### L 500.4050, L501.9520, L100.0100, L500.4100 ####[facility] [address] [place], [address] ALT [Catalytic activity/Vol] 26 U/L Normal 16-61 [facility] Comment on above: Performed By: #### L 500.4050, L501.9520, L100.0100, L500.4100 ####[facility] [address] [place], [address] AST [Catalytic activity/Vol] 25 U/L Normal 15-37 [facility] Comment on above: Performed By: #### L 500.4050, L501.9520, L100.0100, L500.4100 ####[facility] [address] [place], [address] Bilirubin [Mass/Vol] 0.30 mg/dL Normal 0.20-1.00 [facility] Comment on above: Result Comment: For patients on eltrombopag therapy, use of Dimension Mize TBIL is not recommended. Performed By: #### L 500.4050, L501.9520, L100.0100, L500.4100 ####[facility] [address] [place], [address] BUN/CRE 10.8 RATIO Normal 10-20 [facility] Comment on above: Performed By: #### L 500.4050, L501.9520, L100.0100, L500.4100 ####[facility] [address] [place], [address] CA,Total 8.4 mg/dL Low 8.5-10.1 [facility] Comment on above: Performed By: #### L 500.4050, L501.9520, L100.0100, L500.4100 ####[facility] [address] [place], [address] Chloride [Moles/Vol] 94 mmol/L Low 98-107 [facility] Comment on above: Performed By: #### L 500.4050, L501.9520, L100.0100, L500.4100 ####[facility] [address] [place], [address] CO2 [Moles/Vol] 21.0 mmol/L Normal 21.0-32.0 [facility] Comment on above: Performed By: #### L 500.4050, L501.9520, L100.0100, L500.4100 ####[facility] [address] [place], [address] Creatinine [Mass/Vol] 1.02 mg/dL Normal 0.70-1.30 [facility] Comment on above: Result Comment: The validity of the calculated GFR GFRAA in patients over70 years has not been determined. Clinical correlation isessential. Performed By: #### L 500.4050, L501.9520, L100.0100, L500.4100 ####[facility] [address] [place], [address] EST GFR - AA 95 mL/min Normal >60 [facility] Comment on above: Result Comment: Afri can [place] GFR Calc Performed By: #### L 500.4050, L501.9520, L100.0100, L500.4100 ####[facility] [address] [place], [address] GAP 11 Normal 5-15 [facility] Comment on above: Performed By: #### L 500.4050, L501.9520, L100.0100, L500.4100 ####[facility] [address] [place], [address] GFR/1.73 sq M.predicted among non-blacks MDRD (S/P/Bld) [Vol rate/Area] 78 mL/min/{1.73_m2} Normal >60 [facility] Comment on above: Result Comment: Non- GFR Calc Performed By: #### L 500.4050, L501.9520, L100.0100, L500.4100 ####[facility] [address] [place], [address] Globulin (S) [Mass/Vol] 3.4 g/dL Normal 2.2-4.2 [facility] Comment on above: Performed By: #### L 500.4050, L501.9520, L100.0100, L500.4100 ####[facility] [address] [place], [address] Glucose [Mass/Vol] 96 mg/dL Normal 74-106 [facility] Comment on above: Performed By: #### L 500.4050, L501.9520, L100.0100, L500.4100 ####[facility] [address] [place], [address] Potassium [Moles/Vol] 4.1 mmol/L Normal 3.5-5.1 [facility] Comment on above: Performed By: #### L 500.4050, L501.9520, L100.0100, L500.4100 ####[facility] [address] [place], [address] Sodium [Moles/Vol] 126 mmol/L Low 136-145 [facility] Comment on above: Performed By: #### L 500.4050, L501.9520, L100.0100, L500.4100 ####[facility] [address] [place], [address] T PROT 7.2 g/dL Normal 6.4-8.2 [facility] Comment on above: Performed By: #### L 500.4050, L501.9520, L100.0100, L500.4100 ####[facility] [address] [place], [address] Urea nitrogen [Mass/Vol] 11 mg/dL Normal 7-18 [facility] Comment on above: Performed By: #### L 500.4050, L501.9520, L100.0100, L500.4100 ####[facility] [address] [place], [address] Lipid Profileon 08-30-2024 Cholesterol [Mass/Vol] 143 mg/dL Normal 200 [facility] Comment on above: Result Comment: <200 mg/dL Desirable 200-240 mg/dL Borderline >240 mg/dL High Risk Performed By: #### L 500.4050, L501.9520, L100.0100, L500.4100 ####[facility] [address] [place], [address] Cholesterol in HDL [Mass/Vol] 106 mg/dL Normal [facility] Comment on above: Result Comment: The drugs N-Acetylcysteine and Metamizole may falselydepress this assay. Reference Range HDL <40 mg/dL Low HDL Cholesterol HDL >or= 60 mg/dL High HDL Cholesterol Performed By: #### L 500.4050, L501.9520, L100.0100, L500.4100 ####[facility] [address] [place], [address] Cholesterol in LDL [Mass/Vol] 25 mg/dL Normal 0-130 [facility] Comment on above: Performed By: #### L 500.4050, L501.9520, L100.0100, L500.4100 ####[facility] [address] [place], [address] Cholesterol in VLDL [Mass/Vol] 12 mg/dL Normal 5-40 [facility] Comment on above: Performed By: #### L 500.4050, L501.9520, L100.0100, L500.4100 ####[facility] [address] [place], [address] Triglyceride [Mass/Vol] 59 mg/dL Normal [facility] Comment on above: Result Comment: The drugs N-Acetylcysteine and Metamizole may falselydepress this assay.Serum Triglycerides Reference Interval Normal <150 mg/dL Borderline high 150 - 199 mg/dL High 200 - 499 mg/dL Very High > or = 500 mg/dL Performed By: #### L 500.4050, L501.9520, L100.0100, L500.4100 ####[facility] [address] [place], [address] Thyroid Stim Hormone (TSH)on 08-30-2024 TSH 2.680 uIU/mL Normal 0.358-3.740 [facility] Comment on above: Performed By: #### L 500.4050, L501.9520, L100.0100, L500.4100 ####[facility] [address] [place], [address] CBC W/Diff, Automatedon 04-15-2023 Absolute Lymph 0.98 X10 3/uL Normal 0.83-4.51 [facility] Comment on above: Performed By: #### L 100.0100 ####[facility] [address] [place], [address] Absolute Neut 2.5 X10 3/uL Normal 2.0-7.7 [facility] Comment on above: Performed By: #### L 100.0100 ####[facility] [address] [place], [address] Basophils/100 WBC (Bld) 0.5 % Normal 0-1 [facility] Comment on above: Performed By: #### L 100.0100 ####[facility] [address] [place], [address] Eosinophils/100 WBC (Bld) 5.3 % High 0-5 [facility] Comment on above: Performed By: #### L 100.0100 ####[facility] [address] [place], [address] Erythrocyte distribution width (RBC) [Ratio] 16.2 % High 11.6-14.6 [facility] Comment on above: Performed By: #### L 100.0100 ####[facility] [address] [place], [address] Hematocrit (Bld) [Volume fraction] 23.3 % Low 40-54 [facility] Comment on above: Performed By: #### L 100.0100 ####[facility] [address] [place], [address] Hemoglobin (Bld) [Mass/Vol] 7.8 g/dL Low 13.0-16.5 [facility] Comment on above: Performed By: #### L 100.0100 ####[facility] [address] [place], [address] IG% 1.000 High 0.0-0.9 [facility] Comment on above: Result Comment: IG% - Immature Granulocytes (promyelocytes, myelocytes andmetamyelocytes) > 1% indicates that a LEFT SHIFT is Present. Performed By: #### L 100.0100 ####[facility] [address] [place], [address] Lymphocytes/100 WBC (Bld) 23.7 % Normal 19-41 [facility] Comment on above: Performed By: #### L 100.0100 ####[facility] [address] [place], [address] MCH (RBC) [Entitic mass] 30.5 pg Normal 27.0-32.0 [facility] Comment on above: Performed By: #### L 100.0100 ####[facility] [address] [place], [address] MCHC (RBC) [Mass/Vol] 33.5 g/dL Normal 32-36 [facility] Comment on above: Performed By: #### L 100.0100 ####[facility] [address] [place], [address] MCV (RBC) [Entitic vol] 91.0 fL Normal 80-94 [facility] Comment on above: Performed By: #### L 100.0100 ####[facility] [address] [place], [address] Monocytes/100 WBC (Bld) 8.2 % Normal 0-10 [facility] Comment on above: Performed By: #### L 100.0100 ####[facility] [address] [place], [address] Neutrophils/100 WBC (Bld) 61.3 % Normal 47-70 [facility] Comment on above: Performed By: #### L 100.0100 ####[facility] [address] [place], [address] Nucleated RBC (Bld) [#/Vol] 0 10*3/uL Normal 0-5 [facility] Comment on above: Performed By: #### L 100.0100 ####[facility] [address] [place], [address] Platelet mean volume (Bld) [Entitic vol] 8.9 fL Normal 6.2-12.0 [facility] Comment on above: Performed By: #### L 100.0100 ####[facility] [address] [place], [address] Platelets (Bld) [#/Vol] 156 10*3/uL Normal 150-450 [facility] Comment on above: Performed By: #### L 100.0100 ####[facility] [address] [place], [address] RBC (Bld) [#/Vol] 2.56 10*6/uL Low 4.6-6.2 [facility] Comment on above: Performed By: #### L 100.0100 ####[facility] [address] [place], [address] RDW SD 52.7 fl High 35.1-43.9 [facility] Comment on above: Performed By: #### L 100.0100 ####[facility] [address] [place], [address] WBC (Bld) [#/Vol] 4.1 10*3/uL Low 4.4-11.0 [facility] Comment on above: Performed By: #### L 100.0100 ####[facility] [address] [place], [address] Celiac AB,Comprehensiveon ANTIGLIADIN IGA 45 units Abnormal 0-19 [facility] Comment on above: Result Comment: Nega tive 0 - 19 Weak Positive 20 - 30 Moderate to Strong Positive >30 Performed By: #### L 504.2610, L3100.1850, L3100.3425, L3410.2350, L500.3400 ####[facility] [address] [place], [place], [id number] ANTIGLIADIN IGG 2 units Normal 0-19 [facility] Comment on above: Result Comment: Nega tive 0 - 19 Weak Positive 20 - 30 Moderate to Strong Positive >30 Performed By: #### L 504.2610, L3100.1850, L3100.3425, L3410.2350, L500.3400 ####[facility] [address] [place], [place], [id number] ENDOMYSIAL IGA Negative Normal Negative [facility] Comment on above: Performed By: #### L 504.2610, L3100.1850, L3100.3425, L3410.2350, L500.3400 ####[facility] [address] [place], [place], [address] tTG IGA <2 Normal 0-3 [facility] Comment on above: Result Comment: Nega tive 0 - 3 Weak Positive 4 - 10 Positive >10 Tissue Transglutaminase (tTG) has been identified as the endomysial antigen. Studies have demonstr- ated that endomysial IgA antibodies have over 99% specificity for gluten sensitive enteropathy. Performed By: #### L 504.2610, L3100.1850, L3100.3425, L3410.2350, L500.3400 ####[facility] [address] [place], [place], [id number] tTG IGG 3 U/mL Normal 0-5 [facility] Comment on above: Result Comment: Nega tive 0 - 5 Weak Positive 6 - 9 Positive >9 Performed By: #### L 504.2610, L3100.1850, L3100.3425, L3410.2350, L500.3400 ####[facility] [address] [place], [address] Haptoglobinon 04-27-2024 HAPTOGLOBIN 157 mg/dL Normal 32-363 [facility] Comment on above: Result Comment: Perf ormed at: [facility] [address] [id number] Director: Harrison Villareal PhD, Phone: [phone] Performed By: #### L 504.2610, L3100.1850, L3100.3425, L3410.2350, L500.3400 ####[facility] [address] [place], [address] ELY + Protein Elect, Serumon 04-27-2024 Albumin [Mass/Vol] 2.9 g/dL Normal 2.9-4.4 [facility] Comment on above: Performed By: #### L 504.2610, L3100.1850, L3100.3425, L3410.2350, L500.3400 ####[facility] [address] [place], [address] Albumin/Globulin [Mass ratio] 1.2 {ratio} Normal 0.7-1.7 [facility] Comment on above: Performed By: #### L 504.2610, L3100.1850, L3100.3425, L3410.2350, L500.3400 ####[facility] [address] [place], [address] QKEVZ-0-OSJJ 0.3 g/dL Normal 0.0-0.4 [facility] Comment on above: Performed By: #### L 504.2610, L3100.1850, L3100.3425, L3410.2350, L500.3400 ####[facility] [address] [place], [address] AGBJX-8-OSRE 0.7 g/dL Normal 0.4-1.0 [facility] Comment on above: Performed By: #### L 504.2610, L3100.1850, L3100.3425, L3410.2350, L500.3400 ####[facility] [address] [place], [address] BETA GLOBULIN 0.7 g/dL Normal 0.7-1.3 [facility] Comment on above: Performed By: #### L 504.2610, L3100.1850, L3100.3425, L3410.2350, L500.3400 ####[facility] [address] [place], [address] GAMMA GLOBULIN 1.0 g/dL Normal 0.4-1.8 [facility] Comment on above: Performed By: #### L 504.2610, L3100.1850, L3100.3425, L3410.2350, L500.3400 ####[facility] [address] [place], [address] Globulin (S) [Mass/Vol] 2.6 g/dL Normal 2.2-3.9 [facility] Comment on above: Performed By: #### L 504.2610, L3100.1850, L3100.3425, L3410.2350, L500.3400 ####[facility] [address] [place], [address] ELY RESULT,S Comment Normal . [facility] Comment on above: Result Comment: No m onoclonality detected. Performed By: #### L 504.2610, L3100.1850, L3100.3425, L3410.2350, L500.3400 ####[facility] [address] [place], [address] IMMUNOGLOB A QN 295 mg/dL Normal 61-437 [facility] Comment on above: Performed By: #### L 504.2610, L3100.1850, L3100.3425, L3410.2350, L500.3400 ####[facility] [address] [place], [address] IMMUNOGLOB G QN 1111 mg/dL Normal 603-1613 [facility] Comment on above: Performed By: #### L 504.2610, L3100.1850, L3100.3425, L3410.2350, L500.3400 ####[facility] [address] [place], [address] IMMUNOGLOB M QN 85 mg/dL Normal 20-172 [facility] Comment on above: Performed By: #### L 504.2610, L3100.1850, L3100.3425, L3410.2350, L500.3400 ####[facility] [address] [place], [address] M-Reyes Not Observed Normal Not Observed [facility] Comment on above: Performed By: #### L 504.2610, L3100.1850, L3100.3425, L3410.2350, L500.3400 ####[facility] [address] [place], [address] NOTE: Comment Normal . [facility] Comment on above: Result Comment: Prot ein electrophoresis scan will follow via computer,mail, or sheriff's officer delivery. Performed By: #### L 504.2610, L3100.1850, L3100.3425, L3410.2350, L500.3400 ####[facility] [address] [place], [address] Protein [Mass/Vol] 5.5 g/dL Low 6.0-8.5 [facility] Comment on above: Performed By: #### L 504.2610, L3100.1850, L3100.3425, L3410.2350, L500.3400 ####[facility] [address] [place], [address] Discharge Instructionon 04-15 Discharge Instruction Normal [facility] Basic Metabolic Profile (BMP )on 04-25-2024 BUN/CRE 5.7 RATIO Low 10-20 [facility] Comment on above: Performed By: #### L 500.2500, L100.0100 ####[facility] [address] [place], [address] CA,Total 7.6 mg/dL Low 8.5-10.1 [facility] Comment on above: Performed By: #### L 500.2500, L100.0100 ####[facility] [address] [place], [address] Chloride [Moles/Vol] 106 mmol/L Normal 98-107 [facility] Comment on above: Performed By: #### L 500.2500, L100.0100 ####[facility] [address] [place], [address] CO2 [Moles/Vol] 20.0 mmol/L Low 21.0-32.0 [facility] Comment on above: Performed By: #### L 500.2500, L100.0100 ####[facility] [address] [place], [address] Creatinine [Mass/Vol] 0.88 mg/dL Normal 0.70-1.30 [facility] Comment on above: Result Comment: The validity of the calculated GFR GFRAA in patients over70 years has not been determined. Clinical correlation isessential. Performed By: #### L 500.2500, L100.0100 ####[facility] [address] [place], [address] ECRCL 68.54 ml/min Normal [facility] Comment on above: Performed By: #### L 500.2500, L100.0100 ####[facility] [address] [place], [address] EST GFR - AA 113 mL/min Normal >60 [facility] Comment on above: Result Comment: Afri can [place] GFR Calc Performed By: #### L 500.2500, L100.0100 ####[facility] [address] [place], [address] GAP 9 Normal 5-15 [facility] Comment on above: Performed By: #### L 500.2500, L100.0100 ####[facility] [address] [place], [address] GFR/1.73 sq M.predicted among non-blacks MDRD (S/P/Bld) [Vol rate/Area] 93 mL/min/{1.73_m2} Normal >60 [facility] Comment on above: Result Comment: Non- GFR Calc Performed By: #### L 500.2500, L100.0100 ####[facility] [address] [place], [address] Glucose [Mass/Vol] 102 mg/dL Normal 74-106 [facility] Comment on above: Result Comment: Fast ing Glucose result from 100 to 125 mg/dLsuggests IMPAIRED HOMEOSTASIS per A.D.A. criteria. Performed By: #### L 500.2500, L100.0100 ####[facility] [address] [place], [address] Potassium [Moles/Vol] 3.8 mmol/L Normal 3.5-5.1 [facility] Comment on above: Performed By: #### L 500.2500, L100.0100 ####[facility] [address] [place], [address] Sodium [Moles/Vol] 135 mmol/L Low 136-145 [facility] Comment on above: Performed By: #### L 500.2500, L100.0100 ####[facility] [address] [place], [address] Urea nitrogen [Mass/Vol] 5 mg/dL Low 7-18 [facility] Comment on above: Performed By: #### L 500.2500, L100.0100 ####[facility] [address] [place], [address] CBC W/Diff, Automatedon 08- Absolute Lymph 1.05 X10 3/uL Normal 0.83-4.51 [facility] Comment on above: Performed By: #### L 500.2500, L100.0100 ####[facility] [address] [place], [address] Absolute Neut 2.7 X10 3/uL Normal 2.0-7.7 [facility] Comment on above: Performed By: #### L 500.2500, L100.0100 ####[facility] [address] [place], [address] Basophils/100 WBC (Bld) 0.7 % Normal 0-1 [facility] Comment on above: Performed By: #### L 500.2500, L100.0100 ####[facility] [address] [place], [address] Eosinophils/100 WBC (Bld) 5.1 % High 0-5 [facility] Comment on above: Performed By: #### L 500.2500, L100.0100 ####[facility] [address] [place], [address] Erythrocyte distribution width (RBC) [Ratio] 15.5 % High 11.6-14.6 [facility] Comment on above: Performed By: #### L 500.2500, L100.0100 ####[facility] [address] [place], [address] Hematocrit (Bld) [Volume fraction] 25.9 % Low 40-54 [facility] Comment on above: Performed By: #### L 500.2500, L100.0100 ####[facility] [address] [place], [address] Hemoglobin (Bld) [Mass/Vol] 8.8 g/dL Low 13.0-16.5 [facility] Comment on above: Performed By: #### L 500.2500, L100.0100 ####[facility] [address] [place], [address] IG% 2.000 High 0.0-0.9 [facility] Comment on above: Result Comment: IG% - Immature Granulocytes (promyelocytes, myelocytes andmetamyelocytes) > 1% indicates that a LEFT SHIFT is Present. Performed By: #### L 500.2500, L100.0100 ####[facility] [address] [place], [address] Lymphocytes/100 WBC (Bld) 23.3 % Normal 19-41 [facility] Comment on above: Performed By: #### L 500.2500, L100.0100 ####[facility] [address] [place], [address] MCH (RBC) [Entitic mass] 30.3 pg Normal 27.0-32.0 [facility] Comment on above: Performed By: #### L 500.2500, L100.0100 ####[facility] [address] [place], [address] MCHC (RBC) [Mass/Vol] 34.0 g/dL Normal 32-36 [facility] Comment on above: Performed By: #### L 500.2500, L100.0100 ####[facility] [address] [place], [address] MCV (RBC) [Entitic vol] 89.3 fL Normal 80-94 [facility] Comment on above: Performed By: #### L 500.2500, L100.0100 ####[facility] [address] [place], [address] Monocytes/100 WBC (Bld) 8.2 % Normal 0-10 [facility] Comment on above: Performed By: #### L 500.2500, L100.0100 ####[facility] [address] [place], [address] Neutrophils/100 WBC (Bld) 60.7 % Normal 47-70 [facility] Comment on above: Performed By: #### L 500.2500, L100.0100 ####[facility] [address] [place], [address] Nucleated RBC (Bld) [#/Vol] 0 10*3/uL Normal 0-5 [facility] Comment on above: Performed By: #### L 500.2500, L100.0100 ####[facility] [address] [place], [address] Platelet mean volume (Bld) [Entitic vol] 8.7 fL Normal 6.2-12.0 [facility] Comment on above: Performed By: #### L 500.2500, L100.0100 ####[facility] [address] [place], [address] Platelets (Bld) [#/Vol] 157 10*3/uL Normal 150-450 [facility] Comment on above: Performed By: #### L 500.2500, L100.0100 ####[facility] [address] [place], [address] RBC (Bld) [#/Vol] 2.90 10*6/uL Low 4.6-6.2 [facility] Comment on above: Performed By: #### L 500.2500, L100.0100 ####[facility] [address] [place], [address] RDW SD 50.3 fl High 35.1-43.9 [facility] Comment on above: Performed By: #### L 500.2500, L100.0100 ####[facility] [address] [place], [address] WBC (Bld) [#/Vol] 4.5 10*3/uL Normal 4.4-11.0 [facility] Comment on above: Performed By: #### L 500.2500, L100.0100 ####[facility] [address] [place], [address] HH, Hemoglobin AND Hematocri ton 04-25-2024 Hematocrit (Bld) [Volume fraction] 25.8 % Low 40-54 [facility] Comment on above: Performed By: #### L 100.0600 ####[facility] [address] [place], [address] Hemoglobin (Bld) [Mass/Vol] 8.9 g/dL Low 13.0-16.5 [facility] Comment on above: Performed By: #### L 100.0600 ####[facility] [address] [place], [address] Abdomen/Pelvis WITH Contrast on 04-24-2024 Abdomen/Pelvis WITH Contrast Normal [facility] [id number] 04-24-2024 DIRECT JAIME NEG w/POLYSPECIFIC Normal NEGATIVE [facility] Comment on above: Performed By: #### B 30418-7 ####[facility] [address] [place], [address] Basic Metabolic Profile (BMP )on 04-24-2024 BUN/CRE 3.7 RATIO Low 10-20 [facility] Comment on above: Performed By: #### L 500.2500, L100.0100 ####[facility] [address] [place], [address] CA,Total 7.5 mg/dL Low 8.5-10.1 [facility] Comment on above: Performed By: #### L 500.2500, L100.0100 ####[facility] [address] [place], [address] Chloride [Moles/Vol] 107 mmol/L Normal 98-107 [facility] Comment on above: Performed By: #### L 500.2500, L100.0100 ####[facility] [address] [place], [address] CO2 [Moles/Vol] 21.0 mmol/L Normal 21.0-32.0 [facility] Comment on above: Performed By: #### L 500.2500, L100.0100 ####[facility] [address] [place], [address] Creatinine [Mass/Vol] 0.80 mg/dL Normal 0.70-1.30 [facility] Comment on above: Result Comment: The validity of the calculated GFR GFRAA in patients over70 years has not been determined. Clinical correlation isessential. Performed By: #### L 500.2500, L100.0100 ####[facility] [address] [place], [address] ECRCL 75.40 ml/min Normal [facility] Comment on above: Performed By: #### L 500.2500, L100.0100 ####[facility] [address] [place], [address] EST GFR - AA 125 mL/min Normal >60 [facility] Comment on above: Result Comment: Afri can [place] GFR Calc Performed By: #### L 500.2500, L100.0100 ####[facility] [address] [place], [address] GAP 6 Normal 5-15 [facility] Comment on above: Performed By: #### L 500.2500, L100.0100 ####[facility] [address] [place], [address] GFR/1.73 sq M.predicted among non-blacks MDRD (S/P/Bld) [Vol rate/Area] 104 mL/min/{1.73_m2} Normal >60 [facility] Comment on above: Result Comment: Non- GFR Calc Performed By: #### L 500.2500, L100.0100 ####[facility] [address] [place], [address] Glucose [Mass/Vol] 88 mg/dL Normal 74-106 [facility] Comment on above: Performed By: #### L 500.2500, L100.0100 ####[facility] [address] [place], [address] Potassium [Moles/Vol] 3.6 mmol/L Normal 3.5-5.1 [facility] Comment on above: Performed By: #### L 500.2500, L100.0100 ####[facility] [address] [place], [address] Sodium [Moles/Vol] 134 mmol/L Low 136-145 [facility] Comment on above: Performed By: #### L 500.2500, L100.0100 ####[facility] [address] [place], [address] Urea nitrogen [Mass/Vol] 3 mg/dL Low 7-18 [facility] Comment on above: Performed By: #### L 500.2500, L100.0100 ####[facility] [address] [place], [address] CBC W/Diff, Automatedon 04-15 0-2023 Absolute Lymph 1.00 X10 3/uL Normal 0.83-4.51 [facility] Comment on above: Performed By: #### L 500.2500, L100.0100 ####[facility] [address] [place], [address] Absolute Neut 2.7 X10 3/uL Normal 2.0-7.7 [facility] Comment on above: Performed By: #### L 500.2500, L100.0100 ####[facility] [address] [place], [address] Basophils/100 WBC (Bld) 0.2 % Normal 0-1 [facility] Comment on above: Performed By: #### L 500.2500, L100.0100 ####[facility] [address] [place], [address] Eosinophils/100 WBC (Bld) 4.3 % Normal 0-5 [facility] Comment on above: Performed By: #### L 500.2500, L100.0100 ####[facility] [address] [place], [address] Erythrocyte distribution width (RBC) [Ratio] 15.7 % High 11.6-14.6 [facility] Comment on above: Performed By: #### L 500.2500, L100.0100 ####[facility] [address] [place], [address] Hematocrit (Bld) [Volume fraction] 19.7 % Low 40-54 [facility] Comment on above: Performed By: #### L 500.2500, L100.0100 ####[facility] [address] [place], [address] Hemoglobin (Bld) [Mass/Vol] 6.9 g/dL Low 13.0-16.5 [facility] Comment on above: Performed By: #### L 500.2500, L100.0100 ####[facility] [address] [place], [address] IG% 1.200 High 0.0-0.9 [facility] Comment on above: Result Comment: IG% - Immature Granulocytes (promyelocytes, myelocytes andmetamyelocytes) > 1% indicates that a LEFT SHIFT is Present. Performed By: #### L 500.2500, L100.0100 ####[facility] [address] [place], [address] Lymphocytes/100 WBC (Bld) 23.9 % Normal 19-41 [facility] Comment on above: Performed By: #### L 500.2500, L100.0100 ####[facility] [address] [place], [address] MCH (RBC) [Entitic mass] 31.2 pg Normal 27.0-32.0 [facility] Comment on above: Performed By: #### L 500.2500, L100.0100 ####[facility] [address] [place], [address] MCHC (RBC) [Mass/Vol] 35.0 g/dL Normal 32-36 [facility] Comment on above: Performed By: #### L 500.2500, L100.0100 ####[facility] [address] [place], [address] MCV (RBC) [Entitic vol] 89.1 fL Normal 80-94 [facility] Comment on above: Performed By: #### L 500.2500, L100.0100 ####[facility] [address] [place], [address] Monocytes/100 WBC (Bld) 6.7 % Normal 0-10 [facility] Comment on above: Performed By: #### L 500.2500, L100.0100 ####[facility] [address] [place], [address] Neutrophils/100 WBC (Bld) 63.7 % Normal 47-70 [facility] Comment on above: Performed By: #### L 500.2500, L100.0100 ####[facility] [address] [place], [address] Nucleated RBC (Bld) [#/Vol] 0 10*3/uL Normal 0-5 [facility] Comment on above: Performed By: #### L 500.2500, L100.0100 ####[facility] [address] [place], [address] Platelet mean volume (Bld) [Entitic vol] 9.4 fL Normal 6.2-12.0 [facility] Comment on above: Performed By: #### L 500.2500, L100.0100 ####[facility] [address] [place], [address] Platelets (Bld) [#/Vol] 145 10*3/uL Low 150-450 [facility] Comment on above: Performed By: #### L 500.2500, L100.0100 ####[facility] [address] [place], [address] RBC (Bld) [#/Vol] 2.21 10*6/uL Low 4.6-6.2 [facility] Comment on above: Performed By: #### L 500.2500, L100.0100 ####[facility] [address] [place], [address] RDW SD 50.0 fl High 35.1-43.9 [facility] Comment on above: Performed By: #### L 500.2500, L100.0100 ####[facility] [address] [place], [address] WBC (Bld) [#/Vol] 4.2 10*3/uL Low 4.4-11.0 [facility] Comment on above: Performed By: #### L 500.2500, L100.0100 ####[facility] [address] [place], [address] LDHon 04-24-2024 LDH 166 U/L Normal 87-241 [facility] Comment on above: Performed By: #### L 504.2610, L3100.1850, L3100.3425, L3410.2350, L500.3400 ####[facility] [address] [place], [address] Liver Profileon 04-24-2024 Albumin [Mass/Vol] 2.6 g/dL Low 3.2-5.0 [facility] Comment on above: Performed By: #### L 504.2610, L3100.1850, L3100.3425, L3410.2350, L500.3400 ####[facility] [address] [place], [address] ALK P 96 U/L Normal 45-117 [facility] Comment on above: Performed By: #### L 504.2610, L3100.1850, L3100.3425, L3410.2350, L500.3400 ####[facility] [address] [place], [address] ALT [Catalytic activity/Vol] 13 U/L Low 16-61 [facility] Comment on above: Performed By: #### L 504.2610, L3100.1850, L3100.3425, L3410.2350, L500.3400 ####[facility] [address] [place], [address] AST [Catalytic activity/Vol] 21 U/L Normal 15-37 [facility] Comment on above: Performed By: #### L 504.2610, L3100.1850, L3100.3425, L3410.2350, L500.3400 ####[facility] [address] [place], [address] Bilirubin [Mass/Vol] 0.40 mg/dL Normal 0.20-1.00 [facility] Comment on above: Result Comment: For patients on eltrombopag therapy, use of Dimension Mize TBIL is not recommended. Performed By: #### L 504.2610, L3100.1850, L3100.3425, L3410.2350, L500.3400 ####[facility] [address] [place], [address] Bilirubin.direct [Mass/Vol] 0.12 mg/dL Normal 0.00-0.30 [facility] Comment on above: Performed By: #### L 504.2610, L3100.1850, L3100.3425, L3410.2350, L500.3400 ####[facility] [address] [place], [address] Globulin (S) [Mass/Vol] 3.2 g/dL Normal 2.2-4.2 [facility] Comment on above: Performed By: #### L 504.2610, L3100.1850, L3100.3425, L3410.2350, L500.3400 ####[facility] [address] [place], [address] T PROT 5.8 g/dL Low 6.4-8.2 [facility] Comment on above: Performed By: #### L 504.2610, L3100.1850, L3100.3425, L3410.2350, L500.3400 ####[facility] [address] [place], [address] Basic Metabolic Profile (BMP )on 04-23-2024 BUN/CRE 6.8 RATIO Low 10-20 [facility] Comment on above: Performed By: #### L 100.0100, L500.2500 ####[facility] [address] [place], [address] CA,Total 8.0 mg/dL Low 8.5-10.1 [facility] Comment on above: Performed By: #### L 100.0100, L500.2500 ####[facility] [address] [place], [address] Chloride [Moles/Vol] 104 mmol/L Normal 98-107 [facility] Comment on above: Performed By: #### L 100.0100, L500.2500 ####[facility] [address] [place], [address] CO2 [Moles/Vol] 21.0 mmol/L Normal 21.0-32.0 [facility] Comment on above: Performed By: #### L 100.0100, L500.2500 ####[facility] [address] [place], [address] Creatinine [Mass/Vol] 0.73 mg/dL Normal 0.70-1.30 [facility] Comment on above: Result Comment: The validity of the calculated GFR GFRAA in patients over70 years has not been determined. Clinical correlation isessential. Performed By: #### L 100.0100, L500.2500 ####[facility] [address] [place], [address] ECRCL 82.63 ml/min Normal [facility] Comment on above: Performed By: #### L 100.0100, L500.2500 ####[facility] [address] [place], [address] EST GFR - AA 139 mL/min Normal >60 [facility] Comment on above: Result Comment: Afri can [place] GFR Calc Performed By: #### L 100.0100, L500.2500 ####[facility] [address] [place], [address] GAP 8 Normal 5-15 [facility] Comment on above: Performed By: #### L 100.0100, L500.2500 ####[facility] [address] [place], [address] GFR/1.73 sq M.predicted among non-blacks MDRD (S/P/Bld) [Vol rate/Area] 115 mL/min/{1.73_m2} Normal >60 [facility] Comment on above: Result Comment: Non- GFR Calc Performed By: #### L 100.0100, L500.2500 ####[facility] [address] [place], [address] Glucose [Mass/Vol] 91 mg/dL Normal 74-106 [facility] Comment on above: Performed By: #### L 100.0100, L500.2500 ####[facility] [address] [place], [address] Potassium [Moles/Vol] 3.3 mmol/L Low 3.5-5.1 [facility] Comment on above: Performed By: #### L 100.0100, L500.2500 ####[facility] [address] [place], [address] Sodium [Moles/Vol] 133 mmol/L Low 136-145 [facility] Comment on above: Performed By: #### L 100.0100, L500.2500 ####[facility] [address] [place], [address] Urea nitrogen [Mass/Vol] 5 mg/dL Low 7-18 [facility] Comment on above: Performed By: #### L 100.0100, L500.2500 ####[facility] [address] [place], [address] BUN Normal 7-18 [facility] Comment on above: Result Comment: DUPL ICATE ORDER Performed By: #### L 500.2500, L100.0100 ####[facility] [address] [place], [address] BUN/CRE Normal 10-20 [facility] Comment on above: Result Comment: DUPL ICATE ORDER Performed By: #### L 500.2500, L100.0100 ####[facility] [address] [place], [address] CA,Total Normal 8.5-10.1 [facility] Comment on above: Result Comment: DUPL ICATE ORDER Performed By: #### L 500.2500, L100.0100 ####[facility] [address] [place], [address] CL Normal 98-107 [facility] Comment on above: Result Comment: DUPL ICATE ORDER Performed By: #### L 500.2500, L100.0100 ####[facility] [address] [place], [address] CO2 Normal 21.0-32.0 [facility] Comment on above: Result Comment: DUPL ICATE ORDER Performed By: #### L 500.2500, L100.0100 ####[facility] [address] [place], [address] CREAT,SERUM Normal 0.70-1.30 [facility] Comment on above: Result Comment: DUPL ICATE ORDER Performed By: #### L 500.2500, L100.0100 ####[facility] [address] [place], [address] EST GFR Normal >60 [facility] Comment on above: Result Comment: DUPL ICATE ORDER Performed By: #### L 500.2500, L100.0100 ####[facility] [address] [place], [address] EST GFR - AA Normal >60 [facility] Comment on above: Result Comment: DUPL ICATE ORDER Performed By: #### L 500.2500, L100.0100 ####[facility] [address] [place], [address] GAP Normal 5-15 [facility] Comment on above: Result Comment: DUPL ICATE ORDER Performed By: #### L 500.2500, L100.0100 ####[facility] [address] [place], [address] GLU Normal 74-106 [facility] Comment on above: Result Comment: DUPL ICATE ORDER Performed By: #### L 500.2500, L100.0100 ####[facility] [address] [place], [address] Potassium Normal 3.5-5.1 [facility] Comment on above: Result Comment: DUPL ICATE ORDER Performed By: #### L 500.2500, L100.0100 ####[facility] [address] [place], [address] Basic Metabolic Profile (BMP) Normal 136-145 [facility] Comment on above: Result Comment: DUPL ICATE ORDER Performed By: #### L 500.2500, L100.0100 ####[facility] [address] [place], [address] CBC W/Diff, Automatedon 08-0 PATH REV Reviewed Normal [facility] Comment on above: Result Comment: KELLE RE Normocytic anemia.Clinical correlation necessary. Wade Landry M.D. 04/23/24 AMENDED REPORT 04/23/24 0817 PATH REV previously reported as: January Performed By: #### L 500.4050, BTS, BRC, L100.0100 ####[facility] [address] [place], [address] Absolute Lymph 0.85 X10 3/uL Normal 0.83-4.51 [facility] Comment on above: Performed By: #### L 100.0100, L500.2500 ####[facility] [address] [place], [address] Absolute Neut 2.2 X10 3/uL Normal 2.0-7.7 [facility] Comment on above: Performed By: #### L 100.0100, L500.2500 ####[facility] [address] [place], [address] Basophils/100 WBC (Bld) 0.6 % Normal 0-1 [facility] Comment on above: Performed By: #### L 100.0100, L500.2500 ####[facility] [address] [place], [address] Eosinophils/100 WBC (Bld) 4.2 % Normal 0-5 [facility] Comment on above: Performed By: #### L 100.0100, L500.2500 ####[facility] [address] [place], [address] Erythrocyte distribution width (RBC) [Ratio] 15.8 % High 11.6-14.6 [facility] Comment on above: Performed By: #### L 100.0100, L500.2500 ####[facility] [address] [place], [address] Hematocrit (Bld) [Volume fraction] 20.3 % Low 40-54 [facility] Comment on above: Performed By: #### L 100.0100, L500.2500 ####[facility] [address] [place], [address] Hemoglobin (Bld) [Mass/Vol] 7.1 g/dL Low 13.0-16.5 [facility] Comment on above: Performed By: #### L 100.0100, L500.2500 ####[facility] [address] [place], [address] IG% 1.700 High 0.0-0.9 [facility] Comment on above: Result Comment: IG% - Immature Granulocytes (promyelocytes, myelocytes andmetamyelocytes) > 1% indicates that a LEFT SHIFT is Present. Performed By: #### L 100.0100, L500.2500 ####[facility] [address] [place], [address] Lymphocytes/100 WBC (Bld) 23.9 % Normal 19-41 [facility] Comment on above: Performed By: #### L 100.0100, L500.2500 ####[facility] [address] [place], [address] MCH (RBC) [Entitic mass] 30.7 pg Normal 27.0-32.0 [facility] Comment on above: Performed By: #### L 100.0100, L500.2500 ####[facility] [address] [place], [address] MCHC (RBC) [Mass/Vol] 35.0 g/dL Normal 32-36 [facility] Comment on above: Performed By: #### L 100.0100, L500.2500 ####[facility] [address] [place], [address] MCV (RBC) [Entitic vol] 87.9 fL Normal 80-94 [facility] Comment on above: Performed By: #### L 100.0100, L500.2500 ####[facility] [address] [place], [address] Monocytes/100 WBC (Bld) 7.3 % Normal 0-10 [facility] Comment on above: Performed By: #### L 100.0100, L500.2500 ####[facility] [address] [place], [address] Neutrophils/100 WBC (Bld) 62.3 % Normal 47-70 [facility] Comment on above: Performed By: #### L 100.0100, L500.2500 ####[facility] [address] [place], [address] Nucleated RBC (Bld) [#/Vol] 0 10*3/uL Normal 0-5 [facility] Comment on above: Performed By: #### L 100.0100, L500.2500 ####[facility] [address] [place], [address] Platelet mean volume (Bld) [Entitic vol] 8.7 fL Normal 6.2-12.0 [facility] Comment on above: Performed By: #### L 100.0100, L500.2500 ####[facility] [address] [place], [address] Platelets (Bld) [#/Vol] 133 10*3/uL Low 150-450 [facility] Comment on above: Performed By: #### L 100.0100, L500.2500 ####[facility] [address] [place], [address] RBC (Bld) [#/Vol] 2.31 10*6/uL Low 4.6-6.2 [facility] Comment on above: Performed By: #### L 100.0100, L500.2500 ####[facility] [address] [place], [address] RDW SD 50.0 fl High 35.1-43.9 [facility] Comment on above: Performed By: #### L 100.0100, L500.2500 ####[facility] [address] [place], [address] WBC (Bld) [#/Vol] 3.6 10*3/uL Low 4.4-11.0 [facility] Comment on above: Performed By: #### L 100.0100, L500.2500 ####[facility] [address] [place], [address] Absolute Neut Normal 2.0-7.7 [facility] Comment on above: Result Comment: DUPL ICATE ORDERS Performed By: #### L 500.2500, L100.0100 ####[facility] [address] [place], [address] HCT Normal 40-54 [facility] Comment on above: Result Comment: DUPL ICATE ORDERS Performed By: #### L 500.2500, L100.0100 ####[facility] [address] [place], [address] HGB Normal 13.0-16.5 [facility] Comment on above: Result Comment: DUPL ICATE ORDERS Performed By: #### L 500.2500, L100.0100 ####[facility] [address] [place], [address] MCH Normal 27.0-32.0 [facility] Comment on above: Result Comment: DUPL ICATE ORDERS Performed By: #### L 500.2500, L100.0100 ####[facility] [address] [place], [address] MCHC Normal 32-36 [facility] Comment on above: Result Comment: DUPL ICATE ORDERS Performed By: #### L 500.2500, L100.0100 ####[facility] [address] [place], [address] MCV Normal 80-94 [facility] Comment on above: Result Comment: DUPL ICATE ORDERS Performed By: #### L 500.2500, L100.0100 ####[facility] [address] [place], [address] NEUT% Normal 47-70 [facility] Comment on above: Result Comment: DUPL ICATE ORDERS Performed By: #### L 500.2500, L100.0100 ####[facility] [address] [place], [address] PLT Normal 150-450 [facility] Comment on above: Result Comment: DUPL ICATE ORDERS Performed By: #### L 500.2500, L100.0100 ####[facility] [address] [place], [address] RBC Normal 4.6-6.2 [facility] Comment on above: Result Comment: DUPL ICATE ORDERS Performed By: #### L 500.2500, L100.0100 ####[facility] [address] [place], [address] RDW CV Normal 11.6-14.6 [facility] Comment on above: Result Comment: DUPL ICATE ORDERS Performed By: #### L 500.2500, L100.0100 ####[facility] [address] [place], [address] RDW SD Normal 35.1-43.9 [facility] Comment on above: Result Comment: DUPL ICATE ORDERS Performed By: #### L 500.2500, L100.0100 ####[facility] [address] [place], [address] WBC Normal 4.4-11.0 [facility] Comment on above: Result Comment: DUPL ICATE ORDERS Performed By: #### L 500.2500, L100.0100 ####[facility] [address] [place], [address] Colonoscopy Reporton 024 Colonoscopy Report Normal [facility] EGD Reporton 04-23-[address] [facility] Ferritinon 04-23-2024 Ferritin [Mass/Vol] 1236 ng/mL High 26-388 [facility] Comment on above: Performed By: #### L 503.6030, L503.6550 ####[facility] [address] [place], [address] Ferritin [Mass/Vol] 1236 ng/mL High 26-388 [facility] Comment on above: Order Comment: PER [...] ISSUE. Performed By: #### L 503.6550, L503.6030 ####[facility] [address] [place], [address] H Pylori (initial)on 024 H Pylori (initial) Normal [facility] Comment on above: Performed By: #### P H.PYLORI ####[facility] [address] [place], [address] HH, Hemoglobin AND Hematocri ton 04-23-2024 Hematocrit (Bld) [Volume fraction] 20.8 % Low 40-54 [facility] Comment on above: Performed By: #### L 100.0600 ####[facility] [address] [place], [address] Hemoglobin (Bld) [Mass/Vol] 7.1 g/dL Low 13.0-16.5 [facility] Comment on above: Performed By: #### L 100.0600 ####[facility] [address] [place], [address] Iron+Iron Binding Capacityon 04-23-2024 Iron [Mass/Vol] 222 ug/dL High 65-175 [facility] Comment on above: Performed By: #### L 503.6030, L503.6550 ####[facility] [address] [place], [address] IRON SATURATION 94.9 High 15.0-55.0 [facility] Comment on above: Performed By: #### L 503.6030, L503.6550 ####[facility] [address] [place], [address] TIBC 234 ug/dL Low 250-450 [facility] Comment on above: Performed By: #### L 503.6030, L503.6550 ####[facility] [address] [place], [address] Iron [Mass/Vol] 222 ug/dL High 65-175 [facility] Comment on above: Result Comment: PER MACHINE STAPLERDR WANTED TESTS RAN ON SPECIMEN FROM 04/21.TESTING WAS PERFORMED ON CORRECT SPECIMEN BUT COLLECTIONDATE WAS NOT CORRECTED. REQUESTED COLLECTION DATE BEFIXED. WILL CANCEL AND REORDER TO FIX COLLECTION DATE ISSUE. Performed By: #### L 503.6550, L503.6030 ####[facility] [address] [place], [address] IRON SATURATION 94.9 High 15.0-55.0 [facility] Comment on above: Result Comment: PER MACHINE STAPLERDR WANTED TESTS RAN ON SPECIMEN FROM 04/21.TESTING WAS PERFORMED ON CORRECT SPECIMEN BUT COLLECTIONDATE WAS NOT CORRECTED. REQUESTED COLLECTION DATE BEFIXED. WILL CANCEL AND REORDER TO FIX COLLECTION DATE ISSUE. Performed By: #### L 503.6550, L503.6030 ####[facility] [address] [place], [place], [address] TIBC 234 ug/dL Low 250-450 [facility] Comment on above: Result Comment: PER MACHINE STAPLERDR WANTED TESTS RAN ON SPECIMEN FROM 04/21.TESTING WAS PERFORMED ON CORRECT SPECIMEN BUT COLLECTIONDATE WAS NOT CORRECTED. REQUESTED COLLECTION DATE BEFIXED. WILL CANCEL AND REORDER TO FIX COLLECTION DATE ISSUE. Performed By: #### L 503.6550, L503.6030 ####[facility] [address] [place], [address] MR/POSTOP.ANEon 04-23-2024 MR/POSTOP.ANE Normal [facility] MR/[id number] 04-23-2024 MR/POSTOPAN2 Normal [facility] Special Stain Group Ion 08-0 Special Stain Group I Normal [facility] Comment on above: Performed By: #### P SSI ####[facility] [address] [place], [address] 12 Lead EKGon 04-22-2024 [address] [facility] Basic Metabolic Profile (BMP )on 04-22-2024 BUN/CRE 10.1 RATIO Normal 10-20 [facility] Comment on above: Performed By: #### L 500.2500 ####[facility] [address] [place], [address] CA,Total 7.8 mg/dL Low 8.5-10.1 [facility] Comment on above: Performed By: #### L 500.2500 ####[facility] [address] [place], [address] Chloride [Moles/Vol] 103 mmol/L Normal 98-107 [facility] Comment on above: Performed By: #### L 500.2500 ####[facility] [address] [place], [address] CO2 [Moles/Vol] 20.0 mmol/L Low 21.0-32.0 [facility] Comment on above: Performed By: #### L 500.2500 ####[facility] [address] [place], [address] Creatinine [Mass/Vol] 0.79 mg/dL Normal 0.70-1.30 [facility] Comment on above: Result Comment: The validity of the calculated GFR GFRAA in patients over70 years has not been determined. Clinical correlation isessential. Performed By: #### L 500.2500 ####[facility] [address] [place], [address] ECRCL 76.35 ml/min Normal [facility] Comment on above: Performed By: #### L 500.2500 ####[facility] [address] [place], [address] EST GFR - AA 127 mL/min Normal >60 [facility] Comment on above: Result Comment: Afri can [place] Island[place] GFR Calc Performed By: #### L 500.2500 ####[facility] [address] [place], [address] GAP 8 Normal 5-15 [facility] Comment on above: Performed By: #### L 500.2500 ####[facility] [address] [place], [address] GFR/1.73 sq M.predicted among non-blacks MDRD (S/P/Bld) [Vol rate/Area] 105 mL/min/{1.73_m2} Normal >60 [facility] Comment on above: Result Comment: Non- GFR Calc Performed By: #### L 500.2500 ####[facility] [address] [place], [address] Glucose [Mass/Vol] 101 mg/dL Normal 74-106 [facility] Comment on above: Result Comment: Fast ing Glucose result from 100 to 125 mg/dLsuggests IMPAIRED HOMEOSTASIS per A.D.A. criteria. Performed By: #### L 500.2500 ####[facility] [address] [place], [address] Potassium [Moles/Vol] 3.6 mmol/L Normal 3.5-5.1 [facility] Comment on above: Performed By: #### L 500.2500 ####[facility] [address] [place], [address] Sodium [Moles/Vol] 131 mmol/L Low 136-145 [facility] Comment on above: Performed By: #### L 500.2500 ####[facility] [address] [place], [address] Urea nitrogen [Mass/Vol] 8 mg/dL Normal 7-18 [facility] Comment on above: Performed By: #### L 500.2500 ####[facility] [address] [place], [address] CBC W/Diff, Automatedon 08-0 -2023 Absolute Lymph 0.75 X10 3/uL Low 0.83-4.51 [facility] Comment on above: Performed By: #### L 100.0100 ####[facility] [address] [place], [address] Absolute Neut 2.4 X10 3/uL Normal 2.0-7.7 [facility] Comment on above: Performed By: #### L 100.0100 ####[facility] [address] [place], [address] Basophils/100 WBC (Bld) 0.6 % Normal 0-1 [facility] Comment on above: Performed By: #### L 100.0100 ####[facility] [address] [place], [address] Eosinophils/100 WBC (Bld) 3.6 % Normal 0-5 [facility] Comment on above: Performed By: #### L 100.0100 ####[facility] [address] [place], [address] Erythrocyte distribution width (RBC) [Ratio] 14.9 % High 11.6-14.6 [facility] Comment on above: Performed By: #### L 100.0100 ####[facility] [address] [place], [address] Hematocrit (Bld) [Volume fraction] 20.4 % Low 40-54 [facility] Comment on above: Performed By: #### L 100.0100 ####[facility] [address] [place], [address] Hemoglobin (Bld) [Mass/Vol] 7.2 g/dL Low 13.0-16.5 [facility] Comment on above: Performed By: #### L 100.0100 ####[facility] [address] [place], [address] IG% 1.700 High 0.0-0.9 [facility] Comment on above: Result Comment: IG% - Immature Granulocytes (promyelocytes, myelocytes andmetamyelocytes) > 1% indicates that a LEFT SHIFT is Present. Performed By: #### L 100.0100 ####[facility] [address] [place], [address] Lymphocytes/100 WBC (Bld) 20.7 % Normal 19-41 [facility] Comment on above: Performed By: #### L 100.0100 ####[facility] [address] [place], [address] MCH (RBC) [Entitic mass] 30.8 pg Normal 27.0-32.0 [facility] Comment on above: Performed By: #### L 100.0100 ####[facility] [address] [place], [address] MCHC (RBC) [Mass/Vol] 35.3 g/dL Normal 32-36 [facility] Comment on above: Performed By: #### L 100.0100 ####[facility] [address] [place], [address] MCV (RBC) [Entitic vol] 87.2 fL Normal 80-94 [facility] Comment on above: Performed By: #### L 100.0100 ####[facility] [address] [place], [address] Monocytes/100 WBC (Bld) 7.4 % Normal 0-10 [facility] Comment on above: Performed By: #### L 100.0100 ####[facility] [address] [place], [address] Neutrophils/100 WBC (Bld) 66.0 % Normal 47-70 [facility] Comment on above: Performed By: #### L 100.0100 ####[facility] [address] [place], [address] Nucleated RBC (Bld) [#/Vol] 0 10*3/uL Normal 0-5 [facility] Comment on above: Performed By: #### L 100.0100 ####[facility] [address] [place], [address] Platelet mean volume (Bld) [Entitic vol] 9.3 fL Normal 6.2-12.0 [facility] Comment on above: Performed By: #### L 100.0100 ####[facility] [address] [place], [address] Platelets (Bld) [#/Vol] 138 10*3/uL Low 150-450 [facility] Comment on above: Performed By: #### L 100.0100 ####[facility] [address] [place], [address] RBC (Bld) [#/Vol] 2.34 10*6/uL Low 4.6-6.2 [facility] Comment on above: Performed By: #### L 100.0100 ####[facility] [address] [place], [address] RDW SD 47.1 fl High 35.1-43.9 [facility] Comment on above: Performed By: #### L 100.0100 ####[facility] [address] [place], [address] WBC (Bld) [#/Vol] 3.6 10*3/uL Low 4.4-11.0 [facility] Comment on above: Performed By: #### L 100.0100 ####[facility] [address] [place], [address] HH, Hemoglobin AND Hematocri ton 04-22-2024 Hematocrit (Bld) [Volume fraction] 20.2 % Low 40-54 [facility] Comment on above: Performed By: #### L 100.0600 ####[facility] [address] [place], [address] Hemoglobin (Bld) [Mass/Vol] 7.2 g/dL Low 13.0-16.5 [facility] Comment on above: Performed By: #### L 100.0600 ####[facility] [address] [place], [address] Partial Thromboplast Timeon 04-22-2024 aPTT Coag (Bld) [Time] 37.8 s High 24.1-36.2 [facility] Comment on above: Performed By: #### L 300.4310, L300.3900 ####[facility] [address] [place], [address] Prothrombin Time w/INRon INR Coag (PPP) [Relative time] 1.1 {INR} Normal [facility] Comment on above: Performed By: #### L 300.4310, L300.3900 ####[facility] [address] [place], [address] PT Coag (PPP) [Time] 13.9 s Normal 11.7-14.9 [facility] Comment on above: Performed By: #### L 300.4310, L300.3900 ####[facility] [address] [place], [address] Abdomen/Pelvis W IV Cont ONL Yon 04-21-2024 Abdomen/Pelvis W IV Cont ONLY Normal [facility] BRCon 04-21-[address] [facility] Comment on above: Result Comment: [id number] AN RC TRANSFUSED 04/24/24 0846 Performed By: #### B RC ####[facility] [address] [place], [address] Result Comment: [id number] AP RC TRANSFUSED 04/21/24 [id number] AP RC TRANSFUSED 04/21/24 1504 Performed By: #### L 500.4050, BTS, BRC, L100.0100 ####[facility] [address] [place], [address] CBC W/Diff, Automatedon PATH REV Reviewed Normal [facility] Comment on above: Result Comment: KELLE RE Normocytic anemia.Clinical correlation necessary.Wade Landry M.D. 04/21/24 AMENDED REPORT 04/21/24 1337 PATH REV previously reported as: January Performed By: #### L 501.9910, L503.0105, L506.1000, L500.4100, L3890.6300, L501.9520, L100.0100 ####[facility] [address] [place], [address] Chest 1 View (Portable)on Chest 1 View (Portable) Normal [facility] Comprehensive Metabolic Prof ilon 04-21-2024 Albumin [Mass/Vol] 3.4 g/dL Normal 3.2-5.0 [facility] Comment on above: Performed By: #### L 500.4050, [facility], [facility], L100.0100 ####[facility] [address] [place], [address] Albumin/Globulin [Mass ratio] 0.8 {ratio} Low 0.9-2.4 [facility] Comment on above: Performed By: #### L 500.4050, [facility], [facility], L100.0100 ####[facility] [address] [place], [address] ALK P 143 U/L High 45-117 [facility] Comment on above: Performed By: #### L 500.4050, [facility], [facility], L100.0100 ####[facility] [address] [place], [address] ALT [Catalytic activity/Vol] 13 U/L Low 16-61 [facility] Comment on above: Performed By: #### L 500.4050, [facility], [facility], L100.0100 ####[facility] [address] [place], [address] AST [Catalytic activity/Vol] 23 U/L Normal 15-37 [facility] Comment on above: Performed By: #### L 500.4050, BTS, BRC, L100.0100 ####[facility] [address] [place], [address] Bilirubin [Mass/Vol] 0.60 mg/dL Normal 0.20-1.00 [facility] Comment on above: Result Comment: For patients on eltrombopag therapy, use of Dimension Mize TBIL is not recommended. Performed By: #### L 500.4050, BTS, BRC, L100.0100 ####[facility] [address] [place], [address] BUN/CRE 10.2 RATIO Normal 10-20 [facility] Comment on above: Performed By: #### L 500.4050, BTS, [facility], L100.0100 ####[facility] [address] [place], [address] CA,Total 8.6 mg/dL Normal 8.5-10.1 [facility] Comment on above: Performed By: #### L 500.4050, BTS, [facility], L100.0100 ####[facility] [address] [place], [address] Chloride [Moles/Vol] 95 mmol/L Low 98-107 [facility] Comment on above: Performed By: #### L 500.4050, BTS, BR, L100.0100 ####[facility] [address] [place], [address] CO2 [Moles/Vol] 19.0 mmol/L Low 21.0-32.0 [facility] Comment on above: Performed By: #### L 500.4050, BTS, BRC, L100.0100 ####[facility] [address] [place], [address] Creatinine [Mass/Vol] 0.98 mg/dL Normal 0.70-1.30 [facility] Comment on above: Result Comment: The validity of the calculated GFR GFRAA in patients over70 years has not been determined. Clinical correlation isessential. Performed By: #### L 500.4050, BTS, BRC, L100.0100 ####[facility] [address] [place], [address] ECRCL 77.22 ml/min Normal [facility] Comment on above: Performed By: #### L 500.4050, BTS, BRC, L100.0100 ####[facility] [address] [place], [address] EST GFR - AA 100 mL/min Normal >60 [facility] Comment on above: Result Comment: Afri can [place] GFR Calc Performed By: #### L 500.4050, BTS, BRC, L100.0100 ####[facility] [address] [place], [address] GAP 12 Normal 5-15 [facility] Comment on above: Performed By: #### L 500.4050, BTS, BRC, L100.0100 ####[facility] [address] [place], [address] GFR/1.73 sq M.predicted among non-blacks MDRD (S/P/Bld) [Vol rate/Area] 82 mL/min/{1.73_m2} Normal >60 [facility] Comment on above: Result Comment: Non- GFR Calc Performed By: #### L 500.4050, BTS, BRC, L100.0100 ####[facility] [address] [place], [address] Globulin (S) [Mass/Vol] 4.5 g/dL High 2.2-4.2 [facility] Comment on above: Performed By: #### L 500.4050, BTS, BRC, L100.0100 ####[facility] [address] [place], [address] Glucose [Mass/Vol] 117 mg/dL High 74-106 [facility] Comment on above: Result Comment: Fast ing Glucose result from 100 to 125 mg/dLsuggests IMPAIRED HOMEOSTASIS per A.D.A. criteria. Performed By: #### L 500.4050, BTS, BRC, L100.0100 ####[facility] [address] [place], [address] Potassium [Moles/Vol] 3.5 mmol/L Normal 3.5-5.1 [facility] Comment on above: Performed By: #### L 500.4050, BTS, BRC, L100.0100 ####[facility] [address] [place], [address] Sodium [Moles/Vol] 126 mmol/L Low 136-145 [facility] Comment on above: Performed By: #### L 500.4050, BTS, BR, L100.0100 ####[facility] [address] [place], [address] T PROT 7.9 g/dL Normal 6.4-8.2 [facility] Comment on above: Performed By: #### L 500.4050, BTS, BR, L100.0100 ####[facility] [address] [place], [address] Urea nitrogen [Mass/Vol] 10 mg/dL Normal 7-18 [facility] Comment on above: Performed By: #### L 500.4050, BTS, BR, L100.0100 ####[facility] [address] [place], [address] Consultation - Surgicalon Consultation - Surgical Normal [facility] Emergency Department Summary on 04-21-2024 Emergency Department Summary Normal [facility] H AND P Exam - Hospitaliston 04-21-2024 H&P Exam - Hospitalist Normal [facility] Type AND Screenon 04-21-2024 ABO and Rh group Nom (Bld) Blood group A Rh(D) positive Normal [facility] Comment on above: Order Comment: Has [...] By: #### L 500.4050, BTS, BRC, L100.0100 ####[facility] [address] [place], [place], [id number] Hepatitis C Antibodyon 04-20 Hepatitis C AB Non-Reactive Normal Nonreactive [facility] Comment on above: Result Comment: Non Reactive: < 0.8 Equivocal: >/= 0.8 to < 1.0 Reactive: >/= 1.0The CDC requires that a reactive/equivocal HCV antibodyresult be sent out for confirmation. HCV Quant by PCRtesting. Performed By: #### L 501.9910, L503.0105, L506.1000, L500.4100, L3890.6300, L501.9520, L100.0100 ####[facility] [address] [place], [address] Lipid Profileon 2024 Cholesterol [Mass/Vol] 103 mg/dL Normal 200 [facility] Comment on above: Result Comment: <200 mg/dL Desirable 200-240 mg/dL Borderline >240 mg/dL High Risk Performed By: #### L 501.9910, L503.0105, L506.1000, L500.4100, L3890.6300, L501.9520, L100.0100 ####[facility] [address] [place], [address] Cholesterol in HDL [Mass/Vol] 46 mg/dL Normal [facility] Comment on above: Result Comment: The drugs N-Acetylcysteine and Metamizole may falselydepress this assay. Reference Range HDL <40 mg/dL Low HDL Cholesterol HDL >or= 60 mg/dL High HDL Cholesterol Performed By: #### L 501.9910, L503.0105, L506.1000, L500.4100, L3890.6300, L501.9520, L100.0100 ####[facility] [address] [place], [address] Cholesterol in LDL [Mass/Vol] 29 mg/dL Normal 0-130 [facility] Comment on above: Performed By: #### L 501.9910, L503.0105, L506.1000, L500.4100, L3890.6300, L501.9520, L100.0100 ####[facility] [address] [place], [address] Cholesterol in VLDL [Mass/Vol] 28 mg/dL Normal 5-40 [facility] Comment on above: Performed By: #### L 501.9910, L503.0105, L506.1000, L500.4100, L3890.6300, L501.9520, L100.0100 ####[facility] [address] [place], [address] Triglyceride [Mass/Vol] 142 mg/dL Normal [facility] Comment on above: Result Comment: The drugs N-Acetylcysteine and Metamizole may falselydepress this assay.Serum Triglycerides Reference Interval Normal <150 mg/dL Borderline high 150 - 199 mg/dL High 200 - 499 mg/dL Very High > or = 500 mg/dL Performed By: #### L 501.9910, L503.0105, L506.1000, L500.4100, L3890.6300, L501.9520, L100.0100 ####[facility] [address] [place], [place], [id number] PSA,Total - Annual Screenon 2024 PSA,TOT SCREEN 0.35 ng/mL Normal 0.00-4.00 [facility] Comment on above: Result Comment: This test was performed using the TPSA assay method for [employer] chemistry system. Values obtained with differentassay methods cannot be used interchangably.When changing PSA assays in the course of monitoring apatient, additional sequential testing should be carriedout to confirm baseline values. Performed By: #### L 501.9910, L503.0105, L506.1000, L500.4100, L3890.6300, L501.9520, L100.0100 ####[facility] [address] [place], [address] Thyroid Stim Hormone (TSH)on 2024 TSH 3.09 uIU/mL Normal 0.358-3.74 [facility] Comment on above: Performed By: #### L 501.9910, L503.0105, L506.1000, L500.4100, L3890.6300, L501.9520, L100.0100 ####[facility] [address] [place], [address] Vitamin B12on 2024 Cobalamin (Vitamin B12) [Mass/Vol] 513 pg/mL Normal 211-911 [facility] Comment on above: Performed By: #### L 501.9910, L503.0105, L506.1000, L500.4100, L3890.6300, L501.9520, L100.0100 ####[facility] [address] [place], [address] Vitamin D,25 Hydroxyon 04-20 Vitamin D 25-OH 21.0 ng/mL Normal [facility] Comment on above: Result Comment: Anita min D 25(OH) Status Range Deficiency <20 ng/mL (50nmol/L) Insufficiency 20 - 30 ng/mL (50 - 75 nmol/L) Sufficiency 30 - 100 ng/mL (75 - 250 nmol/L) Toxicity >100 ng/mL (>250 nmol/L) Performed By: #### L 501.9910, L503.0105, L506.1000, L500.4100, L3890.6300, L501.9520, L100.0100 ####[facility] [address] [place], [address] Absolute lymphocyte countOrd ered By: Amaris Marks on 08-21-2023 Lymphocytes Auto (Unsp spec) [#/Vol] 0.58 10*3/uL 0.83-4.51 [facility] Basophil percentageOrdered B y: Amaris Marks on 08-21-2023 Basophils/100 WBC (Bld) 0.5 % 0-1 [facility] Chloride [Moles/Vol] 106 mmol/L 98-107 [facility] Eosinophils/100 WBC (Bld) 4.4 % 0-5 [facility] Glucose [Mass/Vol] 108 mg/dL 74-106 [facility] Comment on above: Fasting Glucose resu lt from 100 to 125 mg/dL suggests IMPAIRED HOMEOSTASIS per A.D.A. criteria. Neutrophils (Bld) [#/Vol] 2.6 10*3/uL 2.0-7.7 [facility] Neutrophils/100 WBC (Bld) 66.7 % 47-70 [facility] Potassium [Moles/Vol] 3.7 mmol/L 3.5-5.1 [facility] Sodium [Moles/Vol] 134 mmol/L 136-145 [facility] WBC (Bld) [#/Vol] 3.9 10*3/uL 4.4-11.0 [facility] Blood erythrocytes count (nu mber/volume)Ordered By: Amaris Marks on 08-21-2023 RBC (Bld) [#/Vol] 2.31 10*6/uL 4.6-6.2 [facility] Blood hemoglobin measurement (mass/volume)Ordered By: Amaris Marks on 08-21-2023 Hemoglobin (Bld) [Mass/Vol] 7.4 g/dL 13.0-16.5 [facility] Blood lymphocytes/100 leukoc ytesOrdered By: Amaris Marks on 08-21-2023 Lymphocytes/100 WBC (Bld) 15.0 % 19-41 [facility] Blood manual differential co mment interpretation (narrative result)Ordered By: Amaris Marks on 08-21-2023 Manual differential comment Mars (Bld) [Interp] SCANNED [facility] Blood monocytes/100 leukocyt esOrdered By: Amaris Marks on 08-21-2023 Monocytes/100 WBC (Bld) 12.4 % 0-10 [facility] Blood platelet mean volumeOr dered By: Amaris Marks on 08-21-2023 Platelet mean volume (Bld) [Entitic vol] 9.6 fL 6.2-12.0 [facility] Determination of erythrocyte mean corpuscular volume (MCV)Ordered By: Amaris Marks on 08-21-2023 MCV (RBC) [Entitic vol] 94.8 fL 80-94 [facility] Hematocrit Auto (Bld) [Volum e fraction]Ordered By: Amaris Marks on 08-21-2023 Hematocrit (Bld) [Volume fraction] 21.9 % 40-54 [facility] Laboratory - Chemistry and C hemistry - challengeOrdered By: Amaris Marks on 08-21-2023 CO2 [Moles/Vol] 19.0 mmol/L 21.0-32.0 [facility] Urea nitrogen/Creatinine [Mass ratio] 11.3 mg/mg 10-20 [facility] - Hematology and Cell countsOrdered By: Amaris Marks on 08-21-2023 Erythrocyte distribution width (RBC) [Entitic vol] 45.3 fL 35.1-43.9 [facility] Erythrocyte distribution width (RBC) [Ratio] 13.2 % 11.6-14.6 [facility] Immature granulocytes/100 WBC (Bld) 1.000 % 0.0-0.9 [facility] Comment on above: IG% - Immature Granu locytes (promyelocytes, myelocytes and metamyelocytes) > 1% indicates that a LEFT SHIFT is Present. MCH (RBC) [Entitic mass] 32.0 pg 27.0-32.0 [facility] Nucleated RBC/100 WBC (Bld) [Ratio] 0 % 0-5 [facility] MCHC Auto (RBC) [Mass/Vol]Or dered By: Amaris Marks on 08-21-2023 MCHC (RBC) [Mass/Vol] 33.8 g/dL 32-36 [facility] No Panel InformationOrdered By: Amaris Marks on 08-21-2023 Estimated Creatinine Clearance Calc 98.85 ml/min [facility] Estimated GFR (MDRD) Amer 127 mL/min >60 [facility] Comment on above: GFR Calc Estimated GFR (MDRD) Non-Af Amer 105 mL/min >60 [facility] Comment on above: Non- GFR Calc Platelets bldOrdered By: Jeni Marks on 08-21-2023 Platelets (Bld) [#/Vol] 140 10*3/uL 150-450 [facility] Review by pathologistOrdered By: Amaris Marks on 08-21-2023 Pathologist review Mars (Unsp spec) [Interp] May foll [facility] Serum or plasma calcium ed urement (mass/volume)Ordered By: Amaris Marks on 08-21-2023 Calcium [Mass/Vol] 8.5 mg/dL 8.5-10.1 [facility] Serum or plasma creatinine m easurement (mass/volume)Ordered By: Amaris Marks on 08-21-2023 Creatinine [Mass/Vol] 0.80 mg/dL 0.70-1.30 [facility] Comment on above: The validity of the calculated GFR & GFRAA in patients over 70 years has not been determined. Clinical correlation is essential. Serum or plasma urea nitroge n measurement (mass/volume)Ordered By: Amaris Marks on 08-21-2023 Urea nitrogen [Mass/Vol] 9 mg/dL 7-18 [facility] Thin prep Papanicolaou smear with manual screeningOrdered By: Amaris Marks on 08-21-2023 Thin prep Papanicolaou smear with manual screening 9 5-15 [facility] Blood platelet adequacy dete ction by light microscopyOrdered By: Amaris Marks on 08-19-2023 Platelets LM Ql (Bld) SLT DEC ADEQ [facility] Absolute lymphocyte countOrd ered By: Tamir Allan on 08-16-2023 Lymphocytes Auto (Unsp spec) [#/Vol] 1.20 10*3/uL 0.83-4.51 [facility] Basophil percentageOrdered B y: Tamir Allan on 08-16-2023 Basophils/100 WBC (Bld) 0.9 % 0-1 [facility] Chloride [Moles/Vol] 92 mmol/L 98-107 [facility] Eosinophils/100 WBC (Bld) 3.4 % 0-5 [facility] Glucose [Mass/Vol] 143 mg/dL 74-106 [facility] Comment on above: Fasting Glucose resu lt greater than or equal to 126 mg/dL suggests DIABETES MELLITUS per A.D.A. criteria. Neutrophils (Bld) [#/Vol] 2.4 10*3/uL 2.0-7.7 [facility] Neutrophils/100 WBC (Bld) 54.0 % 47-70 [facility] Potassium [Moles/Vol] 3.4 mmol/L 3.5-5.1 [facility] Sodium [Moles/Vol] 126 mmol/L 136-145 [facility] WBC (Bld) [#/Vol] 4.4 10*3/uL 4.4-11.0 [facility] Basophil percentageOrdered B y: Patrice Rothmanandrea on 08-16-2023 Bilirubin [Mass/Vol] 0.50 mg/dL 0.20-1.00 [facility] Comment on above: For patients on eltr ombopag therapy, use of Dimension Mize TBIL is not recommended. Protein [Mass/Vol] 6.3 g/dL 6.4-8.2 [facility] Blood erythrocytes count (nu mber/volume)Ordered By: Tamir Allan on 08-16-2023 RBC (Bld) [#/Vol] 3.08 10*6/uL 4.6-6.2 [facility] Blood hemoglobin measurement (mass/volume)Ordered By: Tamir Allan on 08-16-2023 Hemoglobin (Bld) [Mass/Vol] 10.1 g/dL 13.0-16.5 [facility] Blood lymphocytes/100 leukoc ytesOrdered By: Tamir Allan on 08-16-2023 Lymphocytes/100 WBC (Bld) 27.6 % 19-41 [facility] Blood monocytes/100 leukocyt esOrdered By: Tamir Allan on 08-16-2023 Monocytes/100 WBC (Bld) 13.6 % 0-10 [facility] Blood platelet mean volumeOr dered By: Tamir Allan on 08-16-2023 Platelet mean volume (Bld) [Entitic vol] 8.8 fL 6.2-12.0 [facility] Determination of erythrocyte mean corpuscular volume (MCV)Ordered By: Tamir Allan on 08-16-2023 MCV (RBC) [Entitic vol] 89.3 fL 80-94 [facility] Hematocrit Auto (Bld) [Volum e fraction]Ordered By: Tamir Allan on 08-16-2023 Hematocrit (Bld) [Volume fraction] 27.5 % 40-54 [facility] Laboratory - Chemistry and C hemistry - challengeOrdered By: Patrice Watkins on 08-16-2023 ALP [Catalytic activity/Vol] 84 U/L 45-117 [facility] ALT [Catalytic activity/Vol] 22 U/L 16-61 [facility] Globulin (S) [Mass/Vol] 3.0 g/dL 2.2-4.2 [facility] Laboratory - Chemistry and C hemistry - challengeOrdered By: Tamir Allan on 08-16-2023 CO2 [Moles/Vol] 25.0 mmol/L 21.0-32.0 [facility] Urea nitrogen/Creatinine [Mass ratio] 8.8 mg/mg 10-20 [facility] - Hematology and Cell countsOrdered By: Tamir Allan on 08-16-2023 Erythrocyte distribution width (RBC) [Entitic vol] 42.5 fL 35.1-43.9 [facility] Erythrocyte distribution width (RBC) [Ratio] 13.1 % 11.6-14.6 [facility] Immature granulocytes/100 WBC (Bld) 0.500 % 0.0-0.9 [facility] Comment on above: IG% - Immature Granu locytes (promyelocytes, myelocytes and metamyelocytes) > 1% indicates that a LEFT SHIFT is Present. MCH (RBC) [Entitic mass] 32.8 pg 27.0-32.0 [facility] Nucleated RBC/100 WBC (Bld) [Ratio] 0 % 0-5 [facility] MCHC Auto (RBC) [Mass/Vol]Or dered By: Tamir Allan on 08-16-2023 MCHC (RBC) [Mass/Vol] 36.7 g/dL 32-36 [facility] No Panel InformationOrdered By: Tamir Allan on 08-16-2023 Estimated Creatinine Clearance Calc 69.99 ml/min [facility] Estimated GFR (MDRD) Amer 85 mL/min >60 [facility] Comment on above: GFR Calc Estimated GFR (MDRD) Non-Af Amer 70 mL/min >60 [facility] Comment on above: Non- GFR Calc No Panel InformationOrdered By: Patrice Watkins on 08-16-2023 Vitamin D 25-Hydroxy 15.4 ng/mL [facility] Comment on above: Vitamin D 25(OH) Sta tus Range Deficiency <20 ng/mL (50nmol/L) Insufficiency 20 - 30 ng/mL (50 - 75 nmol/L) Sufficiency 30 - 100 ng/mL (75 - 250 nmol/L) Toxicity >100 ng/mL (>250 nmol/L) Platelets bldOrdered By: Venu Allan on 08-16-2023 Platelets (Bld) [#/Vol] 171 10*3/uL 150-450 [facility] Serum or plasma albumin ed urement (mass/volume)Ordered By: Patrice Watkins on 08-16-2023 Albumin [Mass/Vol] 3.3 g/dL 3.2-5.0 [facility] Serum or plasma albumin/glob ulin mass ratioOrdered By: Patrice Watkins on 08-16-2023 Albumin/Globulin [Mass ratio] 1.1 {ratio} 0.9-2.4 [facility] Serum or plasma calcium ed urement (mass/volume)Ordered By: Tamir Allan on 08-16-2023 Calcium [Mass/Vol] 8.7 mg/dL 8.5-10.1 [facility] Serum or plasma creatinine m easurement (mass/volume)Ordered By: Tamir Allan on 08-16-2023 Creatinine [Mass/Vol] 1.13 mg/dL 0.70-1.30 [facility] Comment on above: The validity of the calculated GFR & GFRAA in patients over 70 years has not been determined. Clinical correlation is essential. Serum or plasma urea nitroge n measurement (mass/volume)Ordered By: Tamir Allan on 08-16-2023 Urea nitrogen [Mass/Vol] 10 mg/dL 7-18 [facility] Thin prep Papanicolaou smear with manual screeningOrdered By: Tamir Allan on 08-16-2023 Thin prep Papanicolaou smear with manual screening 9 5-15 [facility] Thin prep Papanicolaou smear with manual screeningOrdered By: Patrice Watkins on 08-16-2023 Thin prep Papanicolaou smear with manual screening 24 U/L 15- [facility] LABORATORYOrdered By: SYSTEM SYSTEM on 05-13-2023 [...] AO Workflow SS Charli 12-22-2020 RICHARD Telephone ([facility]) KIM CALDWELL ([id number]) 1960 M Date Time Provider Department 12/22/20 GERALDINE CANSECO UCEDDA During your visit today, we recorded the following information about you: Geraldine Canseco APRN.CNP 12/22/2020 10:51 AM Signed This BROWNFIELD PROGRAM COORDINATOR called patient at [phone] left message for patient to return call [...] Status:Closed by APARNA PURVIS RN on 12/22/20 [facility] CNOVon 12-21-2020 CNOV Office Visit ([facility]) KIM CALDWELL ([id number]) 1960 M Date Time Provider Department 12/21/20 12:30 PM CLOVER RICO (PA) During your visit today, we recorded the following information about you: Temperature Pulse Respiration Blood pressure 101.9 degrees 113/minute 18/minute 110/60 Weight 80.1 kg Clover Rico PA-C 12/21/2020 1:24 PM Signed This note was created using [employer]. Subjective Kim Caldwell is a 60 year [...] cause [R50.9] Order(s):2019 CORONAVIRUS [SQCOVID] Order #: [id number] FUTURE XR CHEST 2V FRONTAL/LAT [[id number]] Order #: [id number] FUTURE Prescriptions as of 12/21/2020 Sig: BROMPHENIRAMINE-PSEU DOEPHEDRI* Take 10 mL by mouth three karen* Patient not taking: Reported on 11/09/2019 Problem List As Of Date: 12/21/2020 (None) Letter Text Encounter Status:Closed by CLOVER RICO PA-C on 12/21/20 Normal [facility] Coronavirus 2019on 1 SARS-CoV-2 (COVID-19) RNA JOSE FRANCISCO+probe Ql (Unsp spec) UPPER RESPIRATORY TRACT SWAB Normal [facility] Comment on above: Performed By: #### C OVID #### [facility] [address], [place] [address] SARS-CoV-2 (COVID-19) RNA JOSE FRANCISCO+probe Ql (Unsp spec) Positive for COVID19 (SARS CoV2) by RT-PCR or equivalent method. Critically abnormal Negative for COVID19 (SARS CoV2) by RT-PCR or equivalent method. [facility] Comment on above: Result Comment: This test was developed and its performance characteristics determined by [facility] [place]. This test has been authorized by FDA under an Emergency Use Authorization (EUA). This test has been validated in accordance with the FDA's Guidance Document Policy for Diagnostics Testing in Laboratories Certified to Perform High Complexity Testing under CLIA prior to Emergency use Authorization for Coronavirus Disease 2019 during the Public Health Emergency issued on November 13, 2019. Test performed by [facility], [facility] [place], [facility] [place] [address]. Performed By: #### C OVID #### [place] [id number] [place] [id number] XR CHEST 2V FRONTAL/LATon XR CHEST 2V [...] the right. IMPRESSION: No acute radiographic abnormality. Staffing Clerk: MONY Transcribe Date/Time: Dec 21 2020 1:09P Dictated by : FRANCISCO JAVIER HANKS MD This examination was interpreted and the report reviewed and electronically signed by: FRANCISCO JAVIER HANKS MD on Dec 21 2020 1:12PM EST [id number] Normal [facility] XR Chest PA and Lateralon IMPRESSION: No acute radiographic abnormality. Staffing Clerk: MONY Transcribe Date/Time: Dec 21 2020 1:09P [...] on the right. DIVISION OF RADIOLOGY Provider, [facility] [place] - 12/21/2020 * * *Final Report* * [...] right. IMPRESSION IMPRESSION: No acute radiographic abnormality. Staffing Clerk: MONY Transcribe Date/Time: Dec 21 2020 1:09P Dictated by : FRANCISCO JAVIER HANKS MD This examination was interpreted and the report reviewed and electronically signed by: FRANCISCO JAVIER HANKS MD on Dec 21 2020 1:12PM EST [facility] Radiology Study observation (narrative) [facility] XR Chest PA and LateralOrder ed By: Ccf Provider on 12-21-2020 [facility] Vital Signs Date Time Vital Sign Value Performing Clinician Facility 02-10-2025 09:26-0400 Body height 177.[address] Emanuel Macedo MD Work Phone: [facility] 02-10-2025 09:26-0400 Body temperature 97.3 [degF] Dr. Emanuel Macedo MD Work Phone: [facility] 02-10-2025 09:26-0400 Diastolic blood pressure 70 mm[Hg] Dr. Emanuel Macedo MD Work Phone: [facility] 02-10-2025 09:26-0400 Heart rate 98 /min Dr. Emanuel Macedo MD Work Phone: [facility] 02-10-2025 09:26-0400 Respiratory rate 16 /min Dr. Emanuel Macedo MD Work Phone: [facility] 02-10-2025 09:26-0400 SaO2% (BldA) [Mass fraction] 99 % Dr. Emanuel Macedo MD Work Phone: [facility] 02-10-2025 09:26-0400 Systolic blood pressure 103 mm[Hg] Dr. Emanuel Macedo MD Work Phone: [facility] 01-24-2025 15:36-0400 Body temperature 97.9 [degF] Dr. Emanuel Macedo MD Work Phone: [facility] 01-24-2025 15:36-0400 Diastolic blood pressure 93 mm[Hg] Dr. Emanuel Macedo MD Work Phone: [facility] 01-24-2025 15:36-0400 Heart rate 83 /min Dr. Emanuel Macedo MD Work Phone: [facility] 01-24-2025 15:36-0400 Respiratory rate 18 /min Dr. Emanuel Macedo MD Work Phone: [facility] 01-24-2025 15:36-0400 SaO2% (BldA) [Mass fraction] 97 % Dr. Emanuel Macedo MD Work Phone: [facility] 01-24-2025 15:36-0400 Systolic blood pressure 136 mm[Hg] Dr. Emanuel Macedo MD Work Phone: [facility] 01-24-2025 05:41-0400 Body mass index (BMI) [Ratio] 23.3 kg/m2 Dr. Emanuel Macedo MD Work Phone: [facility] 01-24-2025 05:41-0400 Body weight [address] Emanuel Macedo MD Work Phone: [facility] 01-20-2025 10:03-0400 Body height 177.[address] Emanuel Macedo MD Work Phone: [facility] 10-05-2024 14:25-0500 Body weight 56.[address] Emanuel Macedo MD Work Phone: [facility] 08-21-2023 14:01-0500 Body temperature 98 [degF] BROWNFIELD PROGRAM COORDINATOR-C Sofia Adame BROWNFIELD PROGRAM COORDINATOR Work Phone: [facility] 08-21-2023 14:01-0500 Diastolic blood pressure 85 mm[Hg] BROWNFIELD PROGRAM COORDINATOR-C Sofia Adame BROWNFIELD PROGRAM COORDINATOR Work Phone: [facility] 08-21-2023 14:01-0500 Heart rate 98 /min BROWNFIELD PROGRAM COORDINATOR-C Sofia Adame BROWNFIELD PROGRAM COORDINATOR Work Phone: [facility] 08-21-2023 14:01-0500 Respiratory rate 18 /min BROWNFIELD PROGRAM COORDINATOR-C Sofia Adame BROWNFIELD PROGRAM COORDINATOR Work Phone: [facility] 08-21-2023 14:01-0500 SaO2% (BldA) [Mass fraction] 100 % BROWNFIELD PROGRAM COORDINATOR-C Sofia Wendi BROWNFIELD PROGRAM COORDINATOR Work Phone: [facility] 08-21-2023 14:01-0500 Systolic blood pressure 111 mm[Hg] BROWNFIELD PROGRAM COORDINATOR-C Sofia Adame BROWNFIELD PROGRAM COORDINATOR Work Phone: [facility] 08-17-2023 08:00-0500 Body height 177.8 cm BROWNFIELD PROGRAM COORDINATOR-C Sofia Adame BROWNFIELD PROGRAM COORDINATOR Work Phone: [facility] 08-17-2023 08:00-0500 Body mass index (BMI) [Ratio] 25.2 kg/m2 BROWNFIELD PROGRAM COORDINATOR-C Sofia Adame BROWNFIELD PROGRAM COORDINATOR Work Phone: [facility] 08-17-2023 08:00-0500 Body weight 79.78 kg BROWNFIELD PROGRAM COORDINATOR-C Sofia Adame BROWNFIELD PROGRAM COORDINATOR Work Phone: [facility] 08-16-2023 05:58-0500 Diastolic blood pressure 81 mm[Hg] [facility] 08-16-2023 05:58-0500 Heart rate 81 /min [facility] 08-16-2023 05:58-0500 Respiratory rate 18 /min [facility] 08-16-2023 05:58-0500 SaO2% (BldA) [Mass fraction] 100 % [facility] 08-16-2023 05:58-0500 Systolic blood pressure 128 mm[Hg] [facility] 08-16-2023 05:08-0500 Body temperature 97.6 [degF] [facility] 08-16-2023 05:00-0500 Body height 177.8 cm [facility] 08-16-2023 05:00-0500 Body mass index (BMI) [Ratio] 25.8 kg/m2 [facility] 08-16-2023 05:00-0500 Body weight 81.6 kg [facility] 05-13-2023 09:44-0400 Body temperature 97.7 [degF] ERNESTO ADAME DO [facility] 05-13-2023 09:44-0400 Diastolic Blood Pressure Non-Invasive 88 1 ERNESTO ADAME DO [facility] 05-13-2023 09:44-0400 Heart rate 79 /min ERNESTO ADAME DO [facility] 05-13-2023 09:44-0400 Reason For Taking VItal Signs ERNESTO ADAME DO [facility] 05-13-2023 09:44-0400 Respiratory rate 16 /min ERNESTO ADAME DO [facility] 05-13-2023 09:44-0400 Systolic Blood Pressure Non-Invasive 161 1 ERNESTO ADAME DO [facility] 05-13-2023 03:54-0400 Body temperature 98.42 [degF] ERNESTO ADAME DO [facility] 05-13-2023 03:54-0400 Diastolic Blood Pressure Non-Invasive 94 1 ERNESTO ADAME DO [facility] 05-13-2023 03:54-0400 Heart rate 77 /min ERNESTO ADAME DO [facility] 05-13-2023 03:54-0400 Respiratory rate 18 /min ERNESTO ADAME DO [facility] 05-13-2023 03:54-0400 Systolic Blood Pressure Non-Invasive 145 1 ERNESTO ADAME DO [facility] 05-12-2023 23:02-0400 Body temperature 97.7 [degF] ERNESTO ADAME DO [facility] 05-12-2023 23:02-0400 Diastolic Blood Pressure Non-Invasive 101 1 ERNESTO ADAME DO [facility] 05-12-2023 23:02-0400 Heart rate 71 /min ERNESTO ADAME DO [facility] 05-12-2023 23:02-0400 Respiratory rate 18 /min ERNESTO ADAME DO [facility] 05-12-2023 23:02-0400 Systolic Blood Pressure Non-Invasive 149 1 ERNESTO ADAME DO [facility] 05-12-2023 14:58-0400 Body height 175 cm ERNESTO ADAME DO [facility] 05-12-2023 14:58-0400 Body weight 76 kg ERNESTO ADAME DO [facility] 05-12-2023 14:58-0400 Body weight 24.82 kg/m2 ERNESTO ADAME DO [facility] 05-12-2023 14:21-0400 Heart rate 71 /min ERNESTO ADAME DO [facility] 05-12-2023 14:15-0400 Heart rate 73 /min ERNESTO ADAME DO [facility] 05-12-2023 14:10-0400 Heart rate 75 /min ERNESTO ADAME DO [facility] 05-12-2023 13:13-0400 Body temperature 96.26 [degF] ERNESTO ADAME DO [facility] 05-12-2023 13:05-0400 Respiratory Rate - Anes 8 br/min ERNESTO ADAME DO [facility] 05-12-2023 13:00-0400 Respiratory Rate - Anes 5 br/min ERNESTO ADAME DO [facility] 05-12-2023 12:55-0400 Respiratory Rate - Anes 8 br/min ERNESTO ADAME DO [facility] 05-12-2023 12:45-0400 Body temperature 96.8 [degF] ERNESTO ADAME DO [facility] 05-12-2023 10:32-0400 Heart rate 76 /min ERNESTO ADAME DO [facility] 05-12-2023 10:16-0400 Body height 175 cm ERNESTO ADAME DO [facility] 05-12-2023 10:16-0400 Body weight 76 kg ERNESTO ADAME DO [facility] 05-12-2023 10:16-0400 Body weight 24.82 kg/m2 ERNESTO ADAME DO [facility] Encounters Encounter Date Encounter Type Care Provider Facility Start: 02-16-2025 ambulatory Michelle Mata ty:[facility] Start: 02-10-2025 End: 02-10-[address] Myrtle Christiansen MD -[facility] Work Phone: Start: 02-10-2025 End: 02-10-[address] Emanuel Macedo MD Work Phone: [facility] Work Phone: Start: 02-09-2025 ambulatory Michelle Mata ty:[facility] Start: 02-09-[address] Michelle Loco MD [facility] Start: 02-08-2025 Non-patient / Non-visit Shantell Helton [facility] Work Phone: Start: 02-08-2025 ambulatory Shantell Hayes Facility :[facility] Start: 02-02-2025 ambulatory Michelle LANG Facili ty:[facility] Start: 02-02-[address] Michelle Loco MD -[facility] Start: 01-25-2025 ambulatory Michelle LANG Facili ty:[facility] Start: 01-25-[address] Michelle Loco MD -[facility] Start: 01-24-2025 Non-patient / Non-visit Dr. Shorty Lea MD -[facility] Work Phone: Start: 01-23-2025 Non-patient / Non-visit Dr. Shorty Lea MD -[facility] Work Phone: Start: 01-22-2025 Non-patient / Non-visit Dr. Shorty Lea MD -[facility] Work Phone: Start: 01-21-2025 Non-patient / Non-visit Dr. Shorty Lea MD -[facility] Work Phone: Start: 01-20-2025 Non-patient / Non-visit Dr. Shorty Lea MD -[facility] Work Phone: Start: 01-19-2025 Non-patient / Non-visit Dr. Shorty Lea MD -[facility] Work Phone: Start: 01-19-2025 ambulatory Shorty Lea Facility: [facility] Start: 01-19-2025 End: 01-24-2025 Evaluation and management of inpatient Dr. Shorty Lea MD -[facility] Work Phone: Start: 10-05-2024 End: 10-05-[address] Obie Funk MD -[facility] Work Phone: Start: 10-05-2024 End: 01-21-2025 ambulatory Obie Funk Facility:[facility] Start: 09-30-2024 ambulatory Emanuel Chi [place] Facility:[facility] Start: 08-30-2024 End: 08-30-2024 ambulatory Emanuel [facility] [place] Facility:[facility] Start: 05-21-2024 ambulatory SOFIA NASCIMENTO [employer] CLERK Facility:[facility] Start: 05-18-2024 ambulatory SERGIO NEELY MD Facility :[facility] Start: 05-05-2024 ambulatory Emanuel [facility] [place] Facility:[facility] Start: 04-29-2024 End: 04-29-2024 ambulatory Emanuel [facility] [place] Facility:[facility] Start: 04-23-2024 ambulatory Tristan Chowdhury Facility: [facility] Start: 04-22-2024 End: 04-22-2024 ambulatory Wilfredojuaquin Franklinandriaelliot Facility:[facility] Start: 04-21-2024 End: 04-26-2024 ambulatory Tristan Luciana Facility:[facility] Start: 2024 End: 2024 ambulatory Emanuel Chi [place] Facility:[facility] Start: 04-07-2024 ambulatory OBIE FUNK MD Facili ty:[facility] Start: 09-22-2023 End: 01-08-2024 ambulatory OBIE FUNK MD Facility:[facility] Start: 09-22-2023 End: 01-08-2024 Physical therapy management OBIE FUNK MD [facility] Start: 08-20-2023 Non-patient / Non-visit BROWNFIELD PROGRAM COORDINATOR-C Bob Adame BROWNFIELD PROGRAM COORDINATOR Work Phone: [facility] Work Phone: Start: 08-19-2023 Non-patient / Non-visit BROWNFIELD PROGRAM COORDINATOR-C Bob Adame BROWNFIELD PROGRAM COORDINATOR Work Phone: [facility] Work Phone: Start: 08-18-2023 Non-patient / Non-visit BROWNFIELD PROGRAM COORDINATOR-C Bob Adame BROWNFIELD PROGRAM COORDINATOR Work Phone: [facility] Work Phone: Start: 08-17-2023 Non-patient / Non-visit BROWNFIELD PROGRAM COORDINATOR-C R monica Adame BROWNFIELD PROGRAM COORDINATOR Work Phone: [facility] Work Phone: Start: 08-16-2023 Non-patient / Non-visit BROWNFIELD PROGRAM COORDINATOR-C R monica Adame BROWNFIELD PROGRAM COORDINATOR Work Phone: [facility] Work Phone: Start: 08-16-2023 End: 08-21-2023 Evaluation and management of inpatient [facility] Work Phone: Start: 06-24-2023 End: 08-11-2023 ambulatory ERNESTO ADAME DO Facility:[facility] Start: 06-24-2023 End: 08-11-2023 Physical therapy management ERNESTO ADAME DO [facility] Start: 05-12-2023 End: 05-13-2023 Observation ERNESTO ADAME DO [facility] Start: 12-21-2020 End: 12-21-2020 Subsequent hospital visit by physician X[facility] Work Phone: Radiology Comment on above: Fever, [...] Work Phone: Comment on above: Performed at: [address] Director: Harrison Villareal PhD, Phone: [phone] Start: 01-19-2025 Measurement of occul t blood [...] Phone: Start: 08-17-2023 Plain X-ray of hip BROWNFIELD PROGRAM COORDINATOR-C Sofia Adame BROWNFIELD PROGRAM COORDINATOR Work Phone: Start: 08-17-2023 Plain X-ray of shoulder BROWNFIELD PROGRAM COORDINATOR-C Sofai Adame BROWNFIELD PROGRAM COORDINATOR Work Phone: Start: 08-17-2023 Total replacement of right hip joint BROWNFIELD PROGRAM COORDINATOR-C Sofia Adame BROWNFIELD PROGRAM COORDINATOR Work Phone: Start: 08-16-2023 Plain chest X-ray BROWNFIELD PROGRAM COORDINATOR-C Sofia Adame BROWNFIELD PROGRAM COORDINATOR Work Phone: Start: 08-16-2023 Plain x-ray of pelvi s and lower extremity BROWNFIELD PROGRAM COORDINATOR-C Sofia Adame BROWNFIELD PROGRAM COORDINATOR Work Phone: Start: 05-12-2023 Cervical arthrodesis by anterior technique ERNESTO ADAME DO Start: 12-21-2020 Radiologic exam ches t 2 views [place]over Bob Rico PA-C Work Phone: Extraction of cataract ANNETTE ADAME DO Comment on above: bilateral Plan of Treatment Date Care Activity Detail Author Start: 01-24-[address] [facility] Start: 01-24-2025 Care planning and problem solving actions [facility] Start: 01-20-2025 End: 01-20-2025 Administration of blood product [facility] Start: 01-20-2025 Vital signs measurements [facility] Start: 01-20-2025 Vital signs measurements [facility] Start: 01-20-2025 Vital signs measurements [facility] Start: 01-20-2025 Vital signs measurements [facility] Start: 01-20-2025 Vital signs measurements [facility] Start: 01-19-2025 Vital signs measurements [facility] Start: 01-19-2025 Vital signs measurements [facility] Start: 01-19-2025 Vital signs measurements [facility] Start: 01-19-2025 Vital signs measurements [facility] Start: 01-19-2025 Application of intermittent pneumatic compression device [facility] Start: 01-19-2025 [facility] Start: 01-19-2025 Vital signs measurements [facility] Start: 01-19-2025 Following clinical pathway protocol [facility] Start: 01-19-[address] [facility] Start: 01-19-2025 Assessment of risk of venous thromboembolism [facility] Start: 01-19-2025 Documentation procedure [facility] Start: 01-19-2025 Insertion of catheter into peripheral vein [facility] Start: 01-19-2025 Measuring intake and output [facility] Start: 01-19-2025 Providing care according to standard [facility] Start: 01-19-2025 Referral to occupational therapist [facility] Start: 01-19-[address] [facility] Start: 01-19-2025 [facility] Start: 01-19-2025 Vital signs measurements [facility] Start: 01-19-[address] [facility] Start: 01-19-2025 Administration of blood product [facility] Start: 01-19-2025 Patient referral to dietitian [facility] Start: 05-16-2024 Covid-19 Vaccine ( season) Covid-19 Vaccine () [facility] Start: 05-16-2024 Influenza vaccination Influenza Vaccine (#1) [facility] Start: 08-27-[address] [facility] Start: 08-26-[address] [facility] Start: 08-25-[address] [facility] Start: 08-24-[address] [facility] Start: 08-23-[address] [facility] Start: 08-22-[address] [facility] Start: 08-21-[address] [facility] Start: 08-20-[address] [facility] Start: 08-18-2023 Provision of overbed trapeze [facility] Start: 08-17-[address] [facility] Start: 08-17-2023 Assessment of risk of venous thromboembolism [facility] Start: 08-17-2023 Catheterization of vein [facility] Start: 08-17-[address] [facility] Start: 08-17-2023 Following clinical pathway protocol [facility] Start: 08-17-2023 Introduction of urinary catheter [facility] Start: 08-17-2023 Measuring intake and output [facility] Start: 08-17-2023 Neurovascular assessment [facility] Start: 08-17-[address] [facility] Start: 08-17-[address] [facility] Start: 08-17-2023 Provision of [address] privileges [facility] Start: 08-17-2023 Provision of overbed trapeze [facility] Start: 08-17-2023 Vital signs measurements [facility] Start: 08-17-[address] [facility] Start: 08-17-2023 [facility] Start: 08-17-2023 Measuring intake and output [facility] Start: 08-16-2023 Measuring intake and output [facility] Start: 08-16-2023 Measuring intake and output [facility] Start: 08-16-2023 Recommendation to continue with treatment [facility] Start: 08-16-2023 Referral to occupational therapist [facility] Start: 08-16-[address] [facility] Start: 08-16-2023 Application of intermittent pneumatic compression device [facility] Start: 08-16-2023 Application of ice collar, cap or bag [facility] Start: 08-16-2023 Assessment of risk of venous thromboembolism [facility] Start: 08-16-[address] [facility] Start: 08-16-2023 Documentation procedure [facility] Start: 08-16-2023 Insertion of catheter into peripheral vein [facility] Start: 08-16-2023 Neurovascular assessment [facility] Start: 08-16-2023 Providing care according to standard [facility] Start: 08-16-[address] [facility] Start: 08-16-[address] [facility] Start: 08-16-2023 [facility] Start: 08-16-2023 Measuring intake and output [facility] Start: 08-16-2023 Following clinical pathway protocol [facility] Start: 08-16-[address] [facility] Start: 08-16-[address] [facility] Start: 08-16-2023 Hospital admission, emergency, from emergency room, medical nature [facility] Start: 08-16-2023 Plain chest X-ray Chest 1 View (Portable) [facility] Start: 08-16-2023 Plain x-ray of pelvis and lower extremity HIP, UNI W/ Pelvis 2-[address] [facility] Start: 08-16-2023 XR Chest Single view [facility] Start: 08-16-2023 XR Pelvis and Hip Views [facility] Start: 08-16-2023 [facility] Start: 08-16-2023 Application of ice collar, cap or bag [facility] Start: 2021 RSV Vaccine (1 - 1-dose 60+ series) RSV Vaccine (1 - 1-dose 60+ series) [facility] Start: 2016 Prostate specific antigen measurement Prostate Cancer Screening Discussion [facility] Start: 2011 Shingrix Vaccine (1 of 2) Shingrix Vaccine (1 of 2) [facility] Start: 2006 Diabetes Screening Diabetes Screening [facility] Start: 2006 Screening for malignant neoplasm of colon [facility] Start: 1996 Lipid panel Lipid Screening [facility] Start: 1980 Urine microalbumin profile DTaP,Tdap,Td Vaccine (1 - Tdap) [facility] Start: 1979 Anxiety Screening Anxiety Screening [facility] Start: 1979 Depression Screening Depression Screening [facility] Start: 1979 Hepatitis C screening Hepatitis C Screening [facility] Start: 1979 HIV screening HIV Screening [facility] Ferritin [Mass/volum e] in Serum or Plasma [facility] Iron and Iron bindin g capacity panel - Serum or Plasma [facility] Patient referral [facility] Work Phone: Procedure [facility] Immunizations Immunization Date Immunization Notes Care Provider eJff middleton 09-28-2015 tetanus toxoid, redu sreedhar diphtheria toxoid, and acellular pertussis vaccine, adsorbed ERNESTO ADAME DO [facility] 09-15-2014 tetanus and diphther ia toxoids, adsorbed, preservative free, for adult use (2 Lf of tetanus toxoid and 2 Lf of diphtheria toxoid) [employer] COORDINATOR-C Sofia Adame NP Work Phone: [facility] 09-15-2014 tetanus and diphther ia toxoids, adsorbed, preservative free, for adult use (5 Lf of tetanus toxoid and 2 Lf of diphtheria toxoid) ERNESTO ADAME DO [facility] Payers Date Payer Category Payer Unknown [id number] 2024 Private Health Insurance [id number] 2024 Self-pay [id number] 2023 Unknown [id number] 2023 Unknown [id number] 2019 Private Health Insurance SARYJOLYNN HUNTER OAP [id number] 2019-Present [phone] [address] [place] [address] Open Access [id number] 1960 Unknown [id number] 2..840.1.787498.3.579.2.6 27 1960 Unknown [id number] 2..840.1.815991.3.579.2.6 27 1960 Unknown [id number] 2.16.840.1.956069.3.579.2.6 27 1960 Unknown [id number] 2.16.840.1.242595.3.579.2.6 27 1960 Unknown [id number] 2.16.840.1.788370.3.579.2.6 27 Unknown [id number] 2.16.840.1.347167.3.579.2.4 62 Unknown [id number] 2.16.840.1.655784.3.579.2.4 62 Unknown [id number] 2.16.840.1.230640.3.579.2.4 62 Unknown [id number] 2.16.840.1.333286.3.579.2.4 62 Unknown [id number] 2.16.840.1.680009.3.579.2.4 62 Unknown [id number] 2.16.840.1.750920.3.579.2.4 62 Unknown [id number] 2.16.840.1.239445.3.579.2.4 62 Unknown [id number] 2.16.840.1.700571.3.579.2.4 62 Unknown [id number] 2.16.840.1.768393.3.579.2.4 62 Unknown [id number] 2.16.840.1.498185.3.579.2.4 62 Unknown [id number] 2.16.840.1.425307.3.579.2.4 62 Unknown [id number] 2.16.840.1.315199.3.579.2.4 62 Unknown [id number] 2.16.840.1.963426.3.579.2.4 62 Unknown [id number] 2.16.840.1.071230.3.579.2.4 62 Unknown [id number] 2.16.840.1.323676.3.579.2.4 62 Unknown [id number] 2.16.840.1.580704.3.579.2.4 62 Unknown [id number] 2.16.840.1.527338.3.579.2.4 62 Unknown [id number] 2.16.840.1.296991.3.579.2.4 62 Unknown [id number] 2.16.840.1.864559.3.579.2.4 62 Unknown [id number] 2.16.840.1.608681.3.579.2.4 62 Unknown [id number] 2.16.840.1.825522.3.579.2.4 62 Unknown [id number] 2.16.840.1.578740.3.579.2.4 62 Unknown [id number] 2.16.840.1.779741.3.579.2.4 62 Unknown [id number] 2.16.840.1.013610.3.579.2.4 62 Unknown [id number] 2.16.840.1.472803.3.579.2.4 62 Unknown [id number] 2.16.840.1.638613.3.579.2.4 62 Unknown [id number] 2.16.840.1.286104.3.579.2.4 62 Unknown [id number] 2.16.840.1.882449.3.579.2.4 62 Unknown [id number] 2.16.840.1.483066.3.579.2.4 62 Unknown [id number] 2.16.840.1.031636.3.579.2.4 62 Unknown [id number] 2.16.840.1.224896.3.579.2.4 62 Social History Date Type Detail Facility Start: 05-09-2023 Tobacco smoking status Heavy t obacco smoker (finding) [facility] Start: 1960 Sex Assigned At Male A [facility] Start: 08-16-2023 End: 08-16-2023 Tobacco smoking status CAIS Unknown if ever smoked [facility] Start: 03-30-2019 End: 01-20-2025 Tobacco smoking status NHIS Occasional tobacco smoker [facility] Start: 03-30-2019 Tobacco use and exposure Smokeless tobacco non-user [facility] Start: 12-21-2020 Alcoholic beverage intake Current drinker of alcohol (finding) [facility] Start: 08-23-2020 End: 12-21-2020 History of Social function [facility] Start: 08-23-2020 End: 12-21-2020 Tobacco use panel [facility] National Score (1-100), lower number is lower risk Not on file [facility] Start: 03-30-2019 Alcohol Comment 2-3 beers daily [facility] Start: 1960 Sex assigned at Not on file C [facility] Start: 11-21-2020 End: 12-21-2020 Exposure to SARS-CoV-2 (event) Not sure [facility] Start: 02-10-[address] [facility] Ex-smoker (finding) [facility] Medical Equipment Procedure Code Equipment Code Equipment Origin al Text Equipment Identifier Dates ([id number]) Ceramic femoral head prosthesis ()[id number]( [id number] FDA Start: 08-17-2023 ([id number]) Acetabular shell ()[id number] FDA Start: 08-17-2023 ([id number]) Coated hip femur prosthesis, modular ()[id number]( [id number] FDA Start: 08-17-2023 ([id number]) Non-constrained polyethylene acetabular liner ()[id number] FDA Start: 08-17-2023 ([id number]) Acetabular shell ()[id number] FDA Start: 08-17-2023 ([id number]) Orthopaedic bone screw, non-bioabsorbable, sterile ()[id number] FDA Start: 08-17-2023 ([id number]) Orthopaedic bone screw, non-bioabsorbable, sterile ()[id number])ftc FDA Start: 08-17-2023 Goals Date Patient Goal Desired Activity /State Functional Status Date Assessment Result Facility 01-24-2025 Functional status Ambulates;Bathroom Priv ilege [facility] Work Phone: 09-22-2023 Functional Status Objective: [...] LE's Special tests: Homans sign - bilat [facility] 08-21-2023 Functional status Patient Activity Dangle Feet [facility] Work Phone: 08-21-2023 Functional status Activity Abili ty With Assist of 1 [facility] Work Phone: 08-20-2023 Functional status Standard Walker [facility] Work Phone: 06-24-2023 Functional Status OBJECTIVE [...] seconds Dynamometer: R 64lbs, L 58 lbs [facility] 05-13-2023 Functional Status Multilevel silvia e, 1st floor bedroom, 1st floor bathroom, 1st floor laundry [facility] 05-13-2023 Functional Status [facility] 05-13-2023 Functional Status bilateral knee high removed/off [facility] 05-13-2023 Functional Status [facility] 05-12-2023 Functional Status [facility] 05-12-2023 Functional Status [facility] 05-12-2023 Functional Status [facility] 05-12-2023 Functional Status [facility] 05-12-2023 Functional Status [facility] 05-12-2023 Functional Status More than [address] [facility] Mental Status Date Assessment Result Facility 01-24-2025 Cognitive function Voice/Name [facility] Work Phone: 08-21-2023 Cognitive function Voice/Name [facility] Work Phone: 05-13-2023 Mental Status Orientation Oriented x 4 [facility] 05-12-2023 Mental Status [facility] 05-12-2023 Mental Status [facility] 05-12-2023 Mental Status [facility] 05-12-2023 [facility] Clinical Notes 12-21-2020 to 01-24-2025 Note Date & Type Note Facility 01-24-[address] [facility] 01-24-2025 Discharge summary Note Date/Time January 24, 2025 4:30pm [facility] Medical Records Department [address] [place] [address] Discharge Summary 01/24/25 1629 MR#: [id number] Acct: [id number] Name: KIM CALDWELL Rep #:[id number] : 1960 64 From: Shorty Knight PCP: Dr. Emanuel Macedo MD Status:ADM I N Location: [place] [id number] Providers Date of Admission: 01/19/25 Date [...] Serum sodium was 126 in August 2024. [id number]. Rapidly related to chronic alcohol use with [...] He does not have dilated power of attorney lawyer for health. After discussion of benefits/risks procedures [...] Neut % (Auto) 58.8, Lymph % (Auto)24.7, [place] % (Auto) 11.5 H, Eos % (Auto) [...] in before D/C Order can be placed): [facility] Facility Charges/Coding Visit Charges Inpatient E&M: 21602 Disch Hosp >30min 01/24/25 1630 <Electronically signed by Shorty Lea MD> Cosigner Signature (if applicable): CC: Dr. Shorty Lea MD; Dr. Emanuel Macedo MD~ Signed [facility] Work Phone: 1(679) 834-814605-12-2025 Discharge summary Author Shorty Lea [facility] Note Date/Time January 24, 2025 3:18p m [facility] Medical Records Department [address] [place] [address] Transfer to [facility] Care MR#: [id number] Acct: [id number] Name: KIM CALDWELL Rep #:[id number] : 1960 64 From: Shorty Knight PCP: Dr. Emanuel Macedo MD Status:ADM I N Certification of patient admission REQUIRED AT TIME OF ADMISSION. I CERTIFY THAT POST-HOSPITAL ECF SERVICES ARE REQUIRED TO BE GIVEN ON AN IN-PATIENT BASIS BECAUSE OF THE ABOVE NAMED PATIENT'S NEED FOR RESIDENTIAL CARE ON A CONTINUING BASIS FOR THE CONDITION(S) FOR WHICH HE/SHE WAS RECEIVING IN-PATIENT HOSPITAL SERVICES PRIOR TO HIS/HER TRANSFER TO THE ECF. 01/24/25 1518<Electronically signed by Shorty Lea MD> [...] Serum sodium was 126 in August 2024. Kntoh197. Rapidly related to chronic alcohol use with [...] He does not have dilated power of attorney lawyer for health. After discussion of benefits/risks procedures [...] in before D/C Order can be placed): Fdc Facility 01/24/25 7340 <Electronically signed by Shorty Lea MD> Cosigner Signature (if applicable): CC: Dr. Emanuel Macedo MD ~ [facility] Work Phone: 1(529) 325-956505-12-2025 Discharge summary [facility] Medical Records Department [address] [place] [address] Discharge Summary 01/24/25 1629 MR#: [id number] Acct: [id number] Name: KIM CALDWELL Rep #:[id number] : 1960 64 From: Shorty Knight PCP: Dr. Emanuel Macedo MD Status:ADM I N Location: [place] [address] Providers Date of Admission: 01/19/25 Date of [...] Serum sodium was 126 in August 2024. [id number]. Rapidly related to chronic alcohol use with [...] He does not have dilated power of attorney lawyer for health. After discussion of benefits/risks procedures [...] Neut % (Auto) 58.8, Lymph % (Auto)24.7, [place] % (Auto) 11.5 H, Eos % (Auto) [...] in before D/C Order can be placed): Fdc Facility Charges/Coding Visit Charges Inpatient E&M: 07550 Disch Hosp >30min 01/24/25 1630 Cosigner Signature (if applicable): CC: Dr. Shorty Lea MD; Dr. Emanuel Macedo MD~ Signed [facility] Medical Records Department [address] [place] [address] Transfer to [facility] MR#: [id number] Acct: [id number] Name: KIM CALDWELL Rep #:[id number] : 1960 64 From: Shorty Knight PCP: Dr. Emanuel Macedo MD Status:ADM I N Certification of patient admission REQUIRED AT TIME OF ADMISSION. I CERTIFY THAT POST-HOSPITAL ECF SERVICES ARE REQUIRED TO BE GIVEN ON AN IN-PATIENT BASIS BECAUSE OF THE ABOVE NAMED PATIENT'S NEED FOR RESIDENTIAL CARE ON A CONTINUING BASIS FOR THE [...] Serum sodium was 126 in August 2024. [id number]. Rapidly related to chronic alcohol use with [...] cigarette smoking and chronic alcohol use dependence, [facility] 24-hour monitoring ordered. 8. DVT prophylaxis: Pharmacological prophylaxis contraindicated. Bilateral SCDs Living will/advanced directive/end of life care: Patient does not have living will or advanced directive. He does not have dilated power of attorney lawyer for health. After discussion of benefits/risks procedures [...] Chi, MD [Primary Care Provider] - Abiel Zbaala MD [Med Staff - Active Staff] - Within 2 Weeks Disposition Disposition (needs filled in before D/C Order can be placed): Fdc Facility 01/24/25 4028 Cosigner Signature (if applicable): CC: Dr. Emaunel Macedo MD ~ [facility]05-12-2025 Progress note Author Shorty Lea [facility] Note Date/Time January 24, 2025 12:04 pm [facility] Medical Records Department [address] [place] [address] Progress Note - Hospitalist 01/24/25 1152 MR#: [id number] Acct: [id number] Name: KIM CALDWELL Rep #:[id number] : 1960 64 From: Shorty Knight PCP: Dr. Emanuel Macedo MD Status:ADM I N Location: [place] [address] Reason for Visit Reason for Visit: Diagnoses [...] Neut % (Auto) 58.8, Lymph % (Auto)24.7, [place] % (Auto) 11.5 H, Eos % (Auto) [...] Serum sodium was 126 in August 2024. [id number]. Rapidly related to chronic alcohol use with [...] cigarette smoking and chronic alcohol use dependence, [facility] 24-hour monitoring ordered. 8. DVT prophylaxis: Pharmacological prophylaxis contraindicated. Bilateral SCDs Living will/advanced directive/end of life care: Patient does not have living will or advanced directive. He does not have dilated power of attorney lawyer for health. After discussion of benefits/risks procedures involved with full code,DNR CC arrest and DNR CC, the patient opted for DNR CC arrest with no intubation Patient doesn't want artificial life support including intubation, tube feed, ventilator and/chest compression, central venous catheter, vasopressor and DC shock if needed Charges/Coding Visit Charges Inpatient E&M: 16569 Subs Hosp L2 01/24/25 1204 <Electronically signed by Shorty Lea MD> Cosigner Signature (if applicable): CC: ~ Signed [facility] Work Phone: 1(163) 200-879205-12-2025 Progress note [facility] Medical Records Department [address] [place] [address] Progress Note - Hospitalist 01/24/25 1152 MR#: [id number] Acct: [id number] Name: KIM CALDWELL Rep #:[id number] : 1960 64 From: Shorty Knight PCP: Dr. Emanuel Macedo MD Status:ADM I N Location: [place] [address] Reason for Visit Reason for Visit: Diagnoses [...] Neut % (Auto) 58.8, Lymph % (Auto)24.7, [place] % (Auto) 11.5 H, Eos % (Auto) [...] Serum sodium was 126 in August 2024. Lyhcw291. Rapidly related to chronic alcohol use with [...] cigarette smoking and chronic alcohol use dependence, [facility] 24-hour monitoring ordered. 8. DVT prophylaxis: Pharmacological prophylaxis contraindicated. Bilateral SCDs Living will/advanced directive/end of life care: Patient does not have living will or advanced directive. He does not have dilated power of attorney lawyer for health. After discussion of benefits/risks procedures involved with full code,DNR CC arrest and DNR CC, the patient opted for DNR CC arrest with no intubation Patient doesn't want artificial life support including intubation, tube feed, ventilator and/chest compression, central venous catheter, vasopressor and DC shock if needed Charges/Coding Visit Charges Inpatient E&M: 60378 [facility] Hosp L2 01/24/25 1204 Cosigner Signature (if applicable): CC: ~ Signed [facility]05-11-2025 Progress note Author Shorty Lea [facility] Note Date/Time January 23, 2025 12:[address] [facility] Medical Records Department [address] [place] [address] Progress Note - Hospitalist 01/23/25 1242 MR#: [id number] Acct: [id number] Name: KIM CALDWELL Rep #:[id number] : 1960 64 From: Shorty Knight PCP: Dr. Emanuel Macedo MD Status:ADM I N Location: [place] [address] Reason for Visit Reason for Visit: Diagnoses [...] Serum sodium was 126 in August 2024. [id number]. Rapidly related to chronic alcohol use with [...] cigarette smoking and chronic alcohol use dependence, [facility] 24-hour monitoring ordered. 8. DVT prophylaxis: Pharmacological prophylaxis contraindicated. Bilateral SCDs Living will/advanced directive/end of life care: Patient does not have living will or advanced directive. He does not have dilated power of attorney lawyer for health. After discussion of benefits/risks procedures involved with full code,DNR CC arrest and DNR CC, the patient opted for DNR CC arrest with no intubation Patient doesn't want artificial life support including intubation, tube feed, ventilator and/chest compression, central venous catheter, vasopressor and DC shock if needed Charges/Coding Visit Charges Inpatient E&M: 79010 Subs Hosp L2 01/23/25 1246 <Electronically signed by Shorty Lea MD> Cosigner Signature (if applicable): CC: ~ Signed [facility] Work Phone: 1(205) 987-342705-11-2025 Progress note [facility] Medical Records Department [address] [place] [address] Progress Note - Hospitalist 01/23/25 1242 MR#: [id number] Acct: [id number] Name: KIM CALDWELL Rep #:[id number] : 1960 64 From: Shorty Knight PCP: Dr. Emanuel Macedo MD Status:ADM I N Location: [place] [address] Reason for Visit Reason for Visit: Diagnoses [...] Serum sodium was 126 in August 2024. [id number]. Rapidly related to chronic alcohol use with [...] cigarette smoking and chronic alcohol use dependence, [facility] 24-hour monitoring ordered. 8. DVT prophylaxis: Pharmacological prophylaxis contraindicated. Bilateral SCDs Living will/advanced directive/end of life care: Patient does not have living will or advanced directive. He does not have dilated power of attorney lawyer for health. After discussion of benefits/risks procedures involved with full code,DNR CC arrest and DNR CC, the patient opted for DNR CC arrest with no intubation Patient doesn't want artificial life support including intubation, tube feed, ventilator and/chest compression, central venous catheter, vasopressor and DC shock if needed Charges/Coding Visit Charges Inpatient E&M: 62104 Subs Hosp L2 01/23/25 1246 Cosigner Signature (if applicable): CC: ~ Signed [facility]05-10-2025 Progress note Author Shorty Lea [facility] Note Date/Time January 22, 2025 1:10p m [facility] Medical Records Department [address] [place] [address] Progress Note - Hospitalist 01/22/25 1305 MR#: [id number] Acct: [id number] Name: KIM CALDWELL Rep #:[id number] : 1960 64 From: Shorty Knight PCP: Dr. Emanuel Macedo MD Status:ADM I N Location: [place] [address] Reason for Visit Reason for Visit: Diagnoses [...] (Auto) 77.1 H, Lymph % (Auto)14.3 L, [place] % (Auto) 7.5, Eos % (Auto) 0.0, [...] Serum sodium was 126 in August 2024. [id number]. Rapidly related to chronic alcohol use with [...] cigarette smoking and chronic alcohol use dependence, [facility] 24-hour monitoring ordered. 8. DVT prophylaxis: Pharmacological prophylaxis contraindicated. Bilateral SCDs Living will/advanced directive/end of life care: Patient does not have living will or advanced directive. He does not have dilated power of attorney lawyer for health. After discussion of benefits/risks procedures involved with full code,DNR CC arrest and DNR CC, the patient opted for DNR CC arrest with no intubation Patient doesn't want artificial life support including intubation, tube feed, ventilator and/chest compression, central venous catheter, vasopressor and DC shock if needed Total time spent in [id number] encounter in discussion of advanced directive 17 [...] (Auto) 77.1 H, Lymph % (Auto)14.3 L, [place] % (Auto) 7.5, Eos % (Auto) 0.0, [...] Ratio 1.1 Charges/Coding Visit Charges Inpatient E&M: 28389 Subs Hosp L2 01/22/25 1310 <Electronically signed by Shorty Lea MD> Cosigner Signature (if applicable): CC: ~ Signed [facility] Work Phone: 1(352) 155-484505-10-2025 Progress note [facility] Medical Records Department [address] [place] [address] Progress Note - Hospitalist 01/22/25 1305 MR#: [id number] Acct: [id number] Name: KIM CALDWELL Rep #:[id number] : 1960 64 From: Shorty Knight PCP: Dr. Emanuel Macedo MD Status:ADM I N Location: [place] [address] Reason for Visit Reason for Visit: Diagnoses [...] (Auto) 77.1 H, Lymph % (Auto)14.3 L, [place] % (Auto) 7.5, Eos % (Auto) 0.0, [...] Serum sodium was 126 in August 2024. Ougyj853. Rapidly related to chronic alcohol use with [...] cigarette smoking and chronic alcohol use dependence, [facility] 24-hour monitoring ordered. 8. DVT prophylaxis: Pharmacological prophylaxis contraindicated. Bilateral SCDs Living will/advanced directive/end of life care: Patient does not have living will or advanced directive. He does not have dilated power of attorney lawyer for health. After discussion of benefits/risks procedures involved with full code,DNR CC arrest and DNR CC, the patient opted for DNR CC arrest with no intubation Patient doesn't want artificial life support including intubation, tube feed, ventilator and/chest compression, central venous catheter, vasopressor and DC shock if needed Total time spent in devj-sc-qtes encounter in discussion of advanced directive 17 [...] (Auto) 77.1 H, Lymph % (Auto)14.3 L, [place] % (Auto) 7.5, Eos % (Auto) 0.0, [...] Albumin/GlobulinRatio 1.1 Charges/Coding Visit Charges Inpatient E&M: 44142 Subs Hosp L2 01/22/25 1310 Cosigner Signature (if applicable): CC: ~ Signed [facility]05-09-2025 Progress note Author Shorty Lea [facility] Note Date/Time January 21, 2025 4:15pm [facility] Medical Records Department [address] [facility] [place] [address] Progress Note - Hospitalist 01/21/25 1611 MR#: [id number] Acct: [id number] Name: KIM CALDWELL Rep #:[id number] : 1960 64 From: Shorty Knight PCP: Dr. Emanuel Macedo MD Status:ADM I N Location: [place] [address] Reason for Visit Reason for Visit: Diagnoses [...] % (Auto) 67.5, Lymph % (Auto) 21.4, [place] % (Auto) 8.0, Eos % (Auto) 1.3, Baso % (Auto) 0.9, Absolute Neuts (auto) 1.5 L, Absolute Lymphs (auto) 0.48 L, Nucleated RBC % 0, Platelet Estimate MKD DEC, Anisocytosis 1+, Ovalocytes 1+, Acanthocytes (Spur) 1+, Kpyaow978 L, Potassium 3.2 L, Chloride 100, Carbon [...] 3. Degenerative changes as above. Reading Location: [facility] Foot X-Ray 01/21/25 11:00 IMPRESSION: 1. Soft tissue swelling without acute fracture. 2. If symptoms persist, repeat radiograph in 10-14 days recommended. Reading Location: [facility] Physical Exam Narrative Left great toe and [...] Serum sodium was 126 in August 2024. [id number]. Rapidly related to chronic alcohol use with [...] cigarette smoking and chronic alcohol use dependence, [facility] 24-hour monitoring ordered. 8. DVT prophylaxis: Pharmacological prophylaxis contraindicated. Bilateral SCDs Living will/advanced directive/end of life care: Patient does not have living will or advanced directive. He does not have dilated power of attorney lawyer for health. After discussion of benefits/risks procedures involved with full code,DNR CC arrest and DNR CC, the patient opted for DNR CC arrest with no intubation Patient doesn't want artificial life support including intubation, tube feed, ventilator and/chest compression, central venous catheter, vasopressor and DC shock if needed Total time spent in edxv-fx-gdws encounter in discussion of advanced directive 17 [...] TSH 2.000 Charges/Coding Visit Charges Inpatient E&M: 17402 Subs Hosp L2 01/21/25 1615 <Electronically signed by Shorty Lea MD> Cosigner Signature (if applicable): CC: ~ Signed [facility] Work Phone: 1([phone]) 223-796705-09-2025 Progress note [facility] Medical Records Department [address] [facility] [place] [address] Progress Note - Hospitalist 01/21/25 1611 MR#: [id number] Acct: [id number] Name: KIM CALDWELL Rep #:[id number] : 1960 64 From: Shorty Knight PCP: Dr. Emanuel Macedo MD Status:ADM I N Location: [place] [address] Reason for Visit Reason for Visit: Diagnoses [...] % (Auto) 67.5, Lymph % (Auto) 21.4, [place] % (Auto) 8.0, Eos % (Auto) 1.3, Baso % (Auto) 0.9, Absolute Neuts (auto) 1.5 L, Absolute Lymphs (auto) 0.48 L, Nucleated RBC % 0, Platelet Estimate MKD DEC, Anisocytosis 1+, Ovalocytes 1+, Acanthocytes (Spur) 1+, Bybahn865 L, Potassium 3.2 L, Chloride 100, Carbon [...] 3. Degenerative changes as above. Reading Location: [facility] Foot X-Ray 01/21/25 11:00 IMPRESSION: 1. Soft tissue swelling without acute fracture. 2. If symptoms persist, repeat radiograph in 10-14 days recommended. Reading Location: [facility] Physical Exam Narrative Left great toe and [...] Serum sodium was 126 in August 2024. [id number]. Rapidly related to chronic alcohol use with [...] cigarette smoking and chronic alcohol use dependence, [facility] 24-hour monitoring ordered. 8. DVT prophylaxis: Pharmacological prophylaxis contraindicated. Bilateral SCDs Living will/advanced directive/end of life care: Patient does not have living will or advanced directive. He does not have dilated power of attorney lawyer for health. After discussion of benefits/risks procedures involved with full code,DNR CC arrest and DNR CC, the patient opted for DNR CC arrest with no intubation Patient doesn't want artificial life support including intubation, tube feed, ventilator and/chest compression, central venous catheter, vasopressor and DC shock if needed Total time spent in dbtj-qd-okrq encounter in discussion of advanced directive 17 [...] TSH 2.000 Charges/Coding Visit Charges Inpatient E&M: 69827 Subs Hosp L2 01/21/25 1615 Cosigner Signature (if applicable): CC: ~ Signed [facility]05-09-2025 Radiology Diagnostic study note [facility] Imaging Services [address] [place], [place] [id number] [phone] min 3 Views MR#: [id number] Acct: [id number] Name: KIM CALDWELL Rep #: [id number] : 1960 M 64 From: Lazara Paulson MD PCP: Dr. Emanuel Macedo MD Status: ADM I N Study:Foot min 3 Views Date of Exam: 06/09 Exam# [id number] Ordering Dr: Stuart Lea MD EXAM: XR [...] radiograph in 10-14 days recommended. Reading Location[facility] CC: Dr. Shorty Lea MD; Dr. Emanuel Macedo MD ~ Staffing Clerk: Signed [facility]05-09-2025 Radiology Diagnostic study note [facility] Imaging Services [address] [place] [place] [address] [phone] Foot min 3 Views MR#: [id number] Acct: [id number] Name: KIM CALDWELL Rep #: [id number] : 1960 M 64 From: Lazara Paulson MD PCP: Dr. Emanuel Macedo MD Status: ADM I N Study:Foot min 3 Views Date of Exam: 06/09 Exam# [id number] Ordering Dr: Stuart Lea MD EXAM: XR [...] 3. Degenerative changes as above. Reading Location[facility] CC: Dr. Shorty Lea MD; Dr. Emanuel Macedo MD ~ Staffing Clerk: Signed [facility]05-08-2025 Progress note Author Shorty Lea [facility] Note Date/Time January 20, 2025 4:08pm [facility] Medical Records Department [address] [place] [address] Progress Note - Hospitalist 01/20/25 1014 MR#: [id number] Acct: [id number] Name: KIM CALDWELL Rep #:[id number] : 1960 64 From: Shorty Knight PCP: Dr. Emanuel Macedo MD Status:ADM I N Location: [place] [address] Reason for Visit Reason for Visit: Diagnoses [...] Clarity Clear, Urine pH 7.0, Ur Specific [place] 1.005, Urine Protein 30 H, Urine Glucose [...] Serum sodium was 126 in August 2024. [id number]. Rapidly related to chronic alcohol use with [...] cigarette smoking and chronic alcohol use dependence, [facility] 24-hour monitoring ordered. 8. DVT prophylaxis: Pharmacological prophylaxis contraindicated. Bilateral SCDs Living will/advanced directive/end of life care: Patient does not have living will or advanced directive. He does not have dilated power of attorney lawyer for health. After discussion of benefits/risks procedures involved with full code,DNR CC arrest and DNR CC, the patient opted for DNR CC arrest with no intubation Patient doesn't want artificial life support including intubation, tube feed, ventilator and/chest compression, central venous catheter, vasopressor and DC shock if needed Total time spent in gczn-sk-yijf encounter in discussion of advanced directive 17 [...] TSH 2.000 Charges/Coding Visit Charges Inpatient E&M: 11142 Subs Hosp L2 01/20/25 1608 <Electronically signed by Shorty Lea MD> Cosigner Signature (if applicable): CC: ~ Signed [facility] Work Phone: 1(103) 109-283005-08-2025 Progress note [facility] Medical Records Department [address] [place] [address] Progress Note - Hospitalist 01/20/25 1014 MR#: [id number] Acct: [id number] Name: KIM CALDWELL Rep #:[id number] : 1960 64 From: Shorty Knight PCP: Dr. Emanuel Macedo MD Status:ADM I N Location: [place] [address] Reason for Visit Reason for Visit: Diagnoses [...] Clarity Clear, Urine pH 7.0, Ur Specific [place] 1.005, Urine Protein 30 H, Urine Glucose [...] Serum sodium was 126 in August 2024. Owwbq180. Rapidly related to chronic alcohol use with [...] cigarette smoking and chronic alcohol use dependence, [facility] 24-hour monitoring ordered. 8. DVT prophylaxis: Pharmacological prophylaxis contraindicated. Bilateral SCDs Living will/advanced directive/end of life care: Patient does not have living will or advanced directive. He does not have dilated power of attorney lawyer for health. After discussion of benefits/risks procedures involved with full code,DNR CC arrest and DNR CC, the patient opted for DNR CC arrest with no intubation Patient doesn't want artificial life support including intubation, tube feed, ventilator and/chest compression, central venous catheter, vasopressor and DC shock if needed Total time spent in fado-nr-oxvs encounter in discussion of advanced directive 17 [...] TSH 2.000 Charges/Coding Visit Charges Inpatient E&M: 83471 Subs Hosp L2 01/20/25 1608 Cosigner Signature (if applicable): CC: ~ Signed [facility]05-07-2025 History and physical note Author Shorty Lea [facility] Note Date/Time January 19, 2025 3:02pm [facility] Medical Records Department [address] [place] [address] H&P Exam - Hospitalist 01/19/25 1032 MR#: [id number] Acct: [id number] Name: KIM CALDWELL Rep #:[id number] : 1960 64 From: Shorty Knight PCP: Dr. Emanuel Macedo MD Status:ADM I N Location: [place] [address] HPI - General General Date of Admission: [...] day. Denies [place] or other substance use [facility] Medical History Closed fracture of right hip [...] 85.5 H, Lymph % (Auto) 8.3 L, [place] % (Auto) 4.4, Eos % (Auto) 0.9, [...] with femoral prosthesis partially imaged. Reading Location: [facility] Chest X-Ray 01/19/25 08:20 IMPRESSION: No evidence of acute disease. Reading Location: [facility] Brain CT 01/19/25 08:22 IMPRESSION: No intracranial hemorrhage, mass effect or calvarial fracture. Volume loss, atrophy appears moderate for age. Reading Location: [facility] Assessment & Plan Assessment/Plan (1) Chronic [...] Serum sodium was 126 in August 2024. [id number]. Rapidly related to chronic alcohol use with [...] cigarette smoking and chronic alcohol use dependence, [facility] 24-hour monitoring ordered. 8. DVT prophylaxis: Pharmacological prophylaxis contraindicated. Bilateral SCDs Living will/advanced directive/end of life care: Patient does not have living will or advanced directive. He does not have dilated power of attorney lawyer for health. After discussion of benefits/risks procedures involved with full code,DNR CC arrest and DNR CC, the patient opted for DNR CC arrest with no intubation Patient doesn't want artificial life support including intubation, tube feed, ventilator and/chest compression, central venous catheter, vasopressor and DC shock if needed Total time spent in puwc-mr-fxcp encounter in discussion of advanced directive 17 [...] 85.5 H, Lymph % (Auto) 8.3 L, [place] % (Auto) 4.4, Eos % (Auto) 0.9, [...] See Detail Charges/Coding Visit Charges Inpatient E&M: 09681 Init Hosp L3 Procedures Hospitalists Procedures: 74756 Advncd Care Plan 30 Min 01/19/25 1502 <Electronically signed by Shorty Lea MD> Cosigner Signature (if applicable): CC: Dr. Shorty Lea MD; Dr. Emanuel Macedo MD~ Signed [facility] Work Phone: 1(580) 846-520305-07-2025 Discharge summary Author Milagro Sanders [facility] Note Date/Time January 19, 2025 2:49pm [facility] Medical Records Department [address] [place] [address] Emergency Department Summary 01/19/25 MR#: [id number] Acct: [id number] Name: KIM CALDWELL Rep #:[id number] : 1960 64 From: Milagro Gonzalez PCP: Dr. Emanuel Macedo MD Status:ADM I N Location: [place] [address] HPI History of Present Illness Chief Complaint: [...] at this time. No sick contacts reported. [facility] Medical History Closed fracture of right hip Home Medications ?Medication ?Instructions ?Recorded ?Last Taken ?Type mirtazapine 7.5 mg tablet 7.5 mg PO [facility] mental health 04/21/24 01/18/25 History pantoprazole 40 [...] 85.5 H Lymph % (Auto) 8.3 L [place] % (Auto) 4.4 Eos % (Auto) 0.9 [...] with femoral prosthesis partially imaged. Reading Location: [facility] Chest X-Ray 01/19/25 08:20 IMPRESSION: No evidence of acute disease. Reading Location: [facility] Brain CT 01/19/25 08:22 IMPRESSION: No intracranial hemorrhage, mass effect or calvarial fracture. Volume loss, atrophy appears moderate for age. Reading Location: [facility] Management Discussion w/another healthcare provider: Hospitalist Discharge Plan Triage Chief Complaint: Fall ED Provider: Milagro Sanders Dx/Rx/DC Orders Clinical Impression: Anemia, Acute hyponatremia, Acute hypokalemia, Hypomagnesemia, Weakness generalized Primary Care Provider: Emanuel Macedo Chi Disposition Disposition: Acute Care Hospital [facility] What to do if you have Problems For any increased pain, shortness of breath, bleeding, nausea or vomiting, chestpain, or any unexpected problems, contact your Primary Care Provider. Call [facility] ([phone]) or report to the closest Emergency Room. Call 911 if necessary. 01/19/25 1449 <Electronically signed by Milagro Sanders DO> Cosigner Signature (if applicable): CC: Dr. Emanuel Macedo MD ~ Signed [facility] Work Phone: 1(149) 399-968205-07-2025 History and physical note [facility] Medical Records Department [address] [place] [address] H&P Exam - Hospitalist 01/19/25 1032 MR#: [id number] Acct: [id number] Name: KIM CALDWELL Rep #:[id number] : 1960 64 From: Shorty Knight PCP: Dr. Emanuel Macedo MD Status:ADM I N Location: [place] [address] HPI - General General Date of Admission: [...] day. Denies [place] or other substance use [facility] Medical History Closed fracture of right hip [...] 85.5 H, Lymph % (Auto) 8.3 L, [place] % (Auto) 4.4, Eos % (Auto) 0.9, [...] with femoral prosthesis partially imaged. Reading Location: [facility] Chest X-Ray 01/19/25 08:20 IMPRESSION: No evidence of acute disease. Reading Location: [facility] Brain CT 01/19/25 08:22 IMPRESSION: No intracranial hemorrhage, mass effect or calvarial fracture. Volume loss, atrophy appears moderate for age. Reading Location: [facility] Assessment & Plan Assessment/Plan (1) Chronic [...] Serum sodium was 126 in August 2024. [id number]. Rapidly related to chronic alcohol use with [...] cigarette smoking and chronic alcohol use dependence, [facility] 24-hour monitoring ordered. 8. DVT prophylaxis: Pharmacological prophylaxis contraindicated. Bilateral SCDs Living will/advanced directive/end of life care: Patient does not have living will or advanced directive. He does not have dilated power of attorney lawyer for health. After discussion of benefits/risks procedures involved with full code,DNR CC arrest and DNR CC, the patient opted for DNR CC arrest with no intubation Patient doesn't want artificial life support including intubation, tube feed, ventilator and/chest compression, central venous catheter, vasopressor and DC shock if needed Total time spent in tbsj-iy-epgh encounter in discussion of advanced directive 17 [...] 85.5 H, Lymph % (Auto) 8.3 L, [place] % (Auto) 4.4, Eos % (Auto) 0.9, [...] See Detail Charges/Coding Visit Charges Inpatient E&M: 39995 Init Hosp L3 Procedures Hospitalists Procedures: 48158 Advncd Care Plan 30 Min 01/19/25 1502 Cosigner Signature (if applicable): CC: Dr. Shorty Lea MD; Dr. Emanuel Macedo MD~ Signed [facility]05-07-2025 Discharge summary [facility] Medical Records Department [address] [place] [address] Emergency Department Summary 01/19/25 MR#: [id number] Acct: [id number] Name: KIM CALDWELL Rep #:[id number] : 1960 64 From: Milagro Gonzalez PCP: Dr. Emanuel Macedo MD Status:ADM I N Location: [place] [address] HPI History of Present Illness Chief Complaint: [...] at this time. No sick contacts reported. [facility] Medical History Closed fracture of right [...] 85.5 H Lymph % (Auto) 8.3 L [place] % (Auto) 4.4 Eos % (Auto) 0.9 [...] with femoral prosthesis partially imaged. Reading Location: [facility] Chest X-Ray 01/19/25 08:20 IMPRESSION: No evidence of acute disease. Reading Location: [facility] Brain CT 01/19/25 08:22 IMPRESSION: No intracranial hemorrhage, mass effect or calvarial fracture. Volume loss, atrophy appears moderate for age. Reading Location: [facility] Management Discussion w/another healthcare provider: Hospitalist Discharge Plan Triage Chief Complaint: Fall ED Provider: Milagro Sanders Dx/Rx/DC Orders Clinical Impression: Anemia, Acute hyponatremia, Acute hypokalemia, Hypomagnesemia, Weakness generalized Primary Care Provider: Emanuel Macedo Chi Disposition Disposition: Acute Care Hospital [facility] What to do if you have Problems For any increased pain, shortness of breath, bleeding, nausea or vomiting, chestpain, or any unexpected problems, contact your Primary Care Provider. Call [facility] ([phone]) or report tothe closest Emergency Room. Call 911 if necessary. 01/19/25 1449 Cosigner Signature (if applicable): CC: Dr. Emanuel Macedo MD ~ Signed [facility]05-07-2025 Evaluation note* Diagnosis Onset Date Resolution Status Admit Date Chronic hyponatremia chronic January 19, 2025 10:30am [facility] Work Phone: [phone] Evaluation note* Diagnosis Onset Date Resolution Status Admit Date Chronic hyponatremia inactive January 19, 2025 10:30am [facility] Work Phone: 1(953) 195-496505-07-2025 Radiology Diagnostic study note [facility] Imaging Services [address] [place], [place] [address] Pelvis 1 or 2 Views MR#: [id number] Acct: [id number] Name: KIM CALDWELL Rep #: [id number] : 1960 M 64 From: Merlin Vaca MD PCP: Dr. Emanuel Macedo MD Status: REG E R Study:Pelvis 1 or 2 Views Date of Exam: 01/19/25 Exam# [id number] Ordering Dr: Jass Sanders DO PROCEDURE: PELVIS [...] with femoral prosthesis partially imaged. Reading Location: [facility] CC: Dr. Milagro Sanders DO; Dr. Emanuel Macedo MD ~ Staffing Clerk: Signed [facility]05-07-2025 Radiology Diagnostic study note [facility] Imaging Services [address] [place], [place] [address] Chest 1 View (Portable) MR#: [id number] Acct: [id number] Name: KIM CALDWELL Rep #: [id number] : 1960 M 64 From: Merlin Vaca MD PCP: Dr. Emanuel Macedo MD Status: REG E R Study:Chest 1 View (Portable) Date of Exam: 01/19/25 Exam# [id number] Ordering Dr: Jass Sanders DO PROCEDURE: CHEST [...] No evidence of acute disease. Reading Location: [facility] CC: Dr. Milagro Sanders DO; Dr. Emanuel Macedo MD ~ Staffing Clerk: Signed [facility]05-07-2025 Radiology Diagnostic study note [facility] Imaging Services [address] [place], [place] [address] Brain/Head without Contrast MR#: [id number] Acct: [id number] Name: KIM CALDWELL Rep #: [id number] : 1960 M 64 From: Merlin Vaca MD PCP: Dr. Emanuel Macedo MD Status: REG E R Study:Brain/Head without Contrast Date of Exa m: 01/19/25 Exam# [id number] Ordering Dr: Jass Sanders DO PROCEDURE: BRAIN/HEAD [...] atrophy appears moderate for age. Reading Location: [id number] CC: Dr. Milagro Sanders DO; Dr. Emanuel Macedo MD ~ Staffing Clerk: Signed [facility]08-12-2024 [facility]12-06-2023 Progress note Author Shorty Lea [facility] August 20, 2023 5:18pm Note Date/Time August 20, 2023 5 :18pm [facility] Medical Records Department [address] [place] [address] Progress Note - Hospitalist 08/20/23 1715 MR#: [id number] Acct: [id number] Name: KIM CALDWELL Rep #:[id number] : 1960 63 From: Shorty Knight PCP: PASTORA Luz tus:ADM IN Location: [place] [address] Reason for Visit Reason for Visit: Diagnoses [...] (Auto) 72.6 H, Lymph % (Auto) 12.1L, [place] % (Auto) 9.8, Eos % (Auto) 4.1, [...] twice daily. Charges/Coding Visit Charges Inpatient E&M: 12442 Subs Hosp L2 08/20/232 <Electronically signed by Shorty Lea MD> Cosigner Signature (if applicable): CC: ~ Signed [facility] Work Phone: 1([phone]) 771-252112-06-2023 Discharge summary Author Shorty Lea [facility] August 21, 2023 12:49pm Note Date/Time August 20, 2023 3 :53pm [facility] Medical Records Department [address] [place] [address] Discharge Summary 08/21/23 1248 MR#: [id number] Acct: [id number] Name: KIM CALDWELL Rep #:[id number] : 1960 63 From: Shorty Knight PCP: PASTORA Luzs:ADM IN Location: [place] [address]-1 Providers Date of Admission: 08/16/23 Date of [...] (Auto) 72.6 H, Lymph % (Auto) 12.1L, [place] % (Auto) 9.8, Eos % (Auto) 4.1, [...] Shorty Lea Primary Care Provider: Sofia Adame BROWNFIELD PROGRAM COORDINATOR Consulting Providers: Patrice Watkins; Obie Funk; Amaris Marks Discharge Orders/Prescriptions Prescriptions: New sennosides-docusate sodium [Stool Softener-Stimulant Laxat] 8.6-50 mg Tablet 2 tab PO BID Qty: 0 0RF Rx Instructions: Akiy-ydj-anwlbup. acetaminophen 500 mg Tablet 1,000 mg PO Q8 Qty: 0 0RF Rx Instructions: Sklk-cua-wocymns. 1000 mg every 8 hourly for 1 [...] 2 Weeks (For hip fracture.) Sofia Adame BROWNFIELD PROGRAM COORDINATOR, BROWNFIELD PROGRAM COORDINATOR-C [Primary Care Provider] - In 1 Week (Patient has constipation normal stool softener.) Disposition Disposition (needs filled in before D/C Order can be placed): Home Health Service Charges/Coding Visit Charges Inpatient E&M: 51561 Disch Hosp >30min 08/20/23 1553 <Electronically signed [...] Adame; Dr. Shorty Lea MD ~* Signed [facility] Work Phone: 1(253) 299-267312-06-2023 Discharge summary Author Shorty Lea [facility] August 21, 2023 12:44pm Note Date/Time August 20, 2023 3 :35pm [facility] Medical Records Department [address] [place] [address] Instructions for Home/Discharge Instructions 08/21/23 1025 MR#: [id number] Acct: [id number] Name: KIM CALDWELL Rep #:[id number] : [...] PO BID Qty: 0 0RF Rx Instructions: Weji-hmv-giubkto. acetaminophen 500 mg Tablet 1,000 mg PO Q8 Qty: 0 0RF Rx Instructions: Umgs-ona-zsyawwb. 1000 mg every 8 hourly for 1 [...] Referrals / Follow Up: Sofia Adame NP, BROWNFIELD PROGRAM COORDINATORYangC [Primary Care Provider] - In 1 Week [...] MD; Dr. Obie Funk MD ~* Signed [facility] Work Phone: 1(991) 975-590612-05-2023 Progress note Author Amaris [facility] August 19, 2023 3:39pm Note Date/Time August 19, 2023 1 1:07am [facility] Medical Records Department [address] [place] [address] Progress Note 08/19/23 1105 MR#: [id number] Acct: [id number] Name: QUINCY CALDWELL Rep #:[id number] : 1960 63 From: Amaris Marks MD PCP: PASTORA Luz tus:ADM IN [place]: [facility] [id number] Subjective Subjective Patient seen and examined. He [...] (Auto) 76.7 H, Lymph % (Auto) 10.8L, [place] % (Auto) 9.4, Eos % (Auto) 2.3, [...] awaiting placement Charges/Coding Visit Charges Inpatient E&M: 04153 [facility] Hosp L2 08/19/23 1539 <Electronically signed by Amaris Marks MD> Amaris Marks MD Cosigner Signature (if applicable): CC: ~ Signed [facility] Work Phone: 1(333) 768-307212-04-2023 Progress note Author [facility] August 18, 2023 3:45pm Note Date/Time August 18, 2023 1 1:53am [facility] Medical Records Department [address] [place] [address] Progress Note 08/18/23 1149 MR#: [id number] Acct: [id number] Name: QUINCY CALDWELL Rep #:[id number] : 1960 63 From: Amaris Marks MD PCP: Sofia Edgar Wendi, BROWNFIELD PROGRAM COORDINATOR-C Sta tus:ADM IN Location: MS3 IN095-6 Subjective Subjective Patient seen and examined. He [...] 77.8 H, Lymph % (Auto) 10.1 L, Paul[place] % (Auto) 9.3, Eos % (Auto) 1.8, [...] with PT/OT. Charges/Coding Visit Charges Inpatient E&M: 55834 Subs Hosp L2 08/18/23 1545 <Electronically signed by Amaris Marks MD> Amaris Marks MD Cosigner Signature (if applicable): CC: ~ Signed [facility] Work Phone: 1(990) 477-922412-04-2023 Progress note Author Mel Tipton [facility] August 18, 2023 11:06am Note Date/Time August 18, 2023 1 0:43am [facility] Medical Records Department [address] [place] [address] Progress Note - Orthopedic 08/18/23 1033 MR#: [id number] Acct: [id number] Name: QUINCY CALDWELL Rep #:[id number] : 1960 63 From: Mel MATT PCP: PASTORA Luz tus:ADM IN Location: [address] Subjective Subjective Insert postop subjective patient [...] 77.8 H, Lymph % (Auto) 10.1 L, [place] % (Auto) 9.3, Eos % (Auto) 1.8, [...] Cosigner Signature (if applicable): CC: ~ Signed [facility] Work Phone: 1(840) 317-354312-03-2023 Progress note Author Amaris [facility] August 17, 2023 1:47pm Note Date/Time August 17, 2023 1 0:42am [facility] Medical Records Department [address] [place] [address] Progress Note 08/17/23 1039 MR#: [id number] Acct: [id number] Name: QUINCY CALDWELL Rep #:[id number] : 1960 63 From: Amaris Marks MD PCP: PASTORA Luz tus:ADM IN Location: [address] Subjective Subjective Patient seen and examined. [...] GFR (MDRD) Non-Af 86, BUN/Creatinine Ratio 10.5, Gfansfw102 H, Calcium 8.2 L, Total Bilirubin 0.50, AST 24, ALT 22, Alkaline Enyueraatas21, Total Protein 6.3 L, Albumin 3.3, Globulin [...] 80.3 H, Lymph % (Auto) 10.3 L, [place] % (Auto) 7.7, Eos % (Auto) 1.1, [...] on lovenox Charges/Coding Visit Charges Inpatient E&M: 73391 Subs Hosp L2 08/17/23 1347 <Electronically signed by Amaris Marks MD> Amaris Marks MD Cosigner Signature (if applicable): CC: ~ Signed [facility] Work Phone: 1(938) 121-434712-03-2023 Procedure [facility] 08-17-2023 Consult note Author Litzy Terrazas [facility] August 17, 2023 10:09am Note Date/Time August 17, 2023 1 0:00am [facility] Medical Records Department [facility] [place] [address] Consultation 08/17/23 0953 MR#: [id number] Acct: [id number] Name: QUINCY CALDWELL Rep #:[id number] : 1960 63 From: Litzy MATT PCP: Sofia Adame, PASTORA German tus:ADM [place] [facility] CG006-5 Assessment & Plan Assessment/Plan (1) Closed fracture [...] is a 63 M who presented to [facility] yesterday August 16, 2023. He was involved in a work-related injury. 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 He was standing on the ground. He slipped twisted and landed on his right side. He had significant increased pain in his right hip was unable to stand or bear weight. He was taken to [facility] emergency department by squad. He states [...] bilateral upper extremities that is not new. [facility] Medical History no medical history Home Medications [...] GFR (MDRD) Non-Af 86, BUN/Creatinine Ratio 10.5, Dihxzjh754 H, Calcium 8.2 L, Total Bilirubin 0.50, AST 24, ALT 22, Alkaline Wziwnjyhkpt37, Total Protein 6.3 L, Albumin 3.3, Globulin [...] 80.3 H, Lymph % (Auto) 10.3 L, [place] % (Auto) 7.7, Eos % (Auto) 1.1, [...] Watkins DO; Dr. Obie Funk MD~ Signed [facility] Work Phone: 1(289) 757-601612-02-2023 Progress note Author [facility]aris [facility] August 16, 2023 2:54pm Note Date/Time August 16, 2023 1 2:43pm [facility] Medical Records Department [address] [place] [address] Progress Note 08/16/23 1237 MR#: [id number] Acct: [id number] Name: QUINCY CALDWELL Rep #:[id number] : 1960 63 From: Amaris Marks MD PCP: PASTORA Luz s:ADM IN Location: [address] Subjective Subjective Patient seen and examined. [...] % (Auto) 54.0, Lymph % (Auto) 27.6, [place] % (Auto) 13.6 H, Eos % (Auto) [...] start lovenox Charges/Coding Visit Charges Inpatient E&M: 03006 Subs Hosp L2 08/16/23 1457 <Electronically signed by Amaris Marks MD> Amaris Marks MD Cosigner Signature (if applicable): CC: ~ Signed [facility] Work Phone: 1(324) 100-808412-02-2023 History and physical note Author Patrice Watkins [facility] August 16, 2023 6:38am Note Date/Time August 16, 2023 6 :38am [facility] Medical Records Department [address] [place] [address] H&P Exam - Hospitalist 08/16/23 0631 MR#: [id number] Acct: [id number] Name: QUINCY CALDWELL Rep #:[id number] : 1960 63 From: Patrice Watkins DO PCP: Sofia Adame, MATT-C [facility] tus:ADM IN Location: MS3 JU021-4 HPI - General General Date of Admission: [...] % (Auto) 54.0, Lymph % (Auto) 27.6, Paul[place] % (Auto) 13.6 H, Eos % (Auto) [...] Watkins DO> Cosigner Signature (if applicable): CC: PATSORA Adame; Dr. Patrice Watkins DO~ Signed [facility] Work Phone: 1(799) 140-240512-02-2023 Discharge summary Author Tamir Allan 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 Funk who was on-call for [facility], with whom the patient isestablished, likely [...] % (Auto) 54.0 Lymph % (Auto) 27.6 Paulding % (Auto) 13.6 H Eos % (Auto) [...] Management Discussion w/another healthcare provider: Hospitalist and Telecommunications Specialist ([facility]) Discharge Plan Dx/Rx/DC Orders Clinical Impression: Fall from slipping on wet surface, Closed fracture of right hip Disposition Disposition: Acute Care Hospital [facility] What to do if you have Problems For any increased pain, shortness of breath, bleeding, nausea or vomiting, chestpain, or any unexpected problems, contact your Primary Care Provider. Call [facility] ([phone]) or report to the closest Emergency Room. Call 911 if necessary. 08/16/2311 <Electronically signed by Tamir Allan MD> Cosigner Signature (if applicable): CC: PASTORA Adame ~ Signed [facility] Work Phone: 1(727) 693-171408-29-2023 Hospital Discharge instructions Patient Education 05/13/2023 10:45:37 [...] local community. Calling the smokefree.gov counselor helpline: 4-475-Uewl-Now ( ) Where to find more information You may find more information about quitting smoking from: HelpGuide.org: www.helpguide.org Smokefree.gov: smokefree.gov [place] Lung Association: www.lung.org Contact a health care [...] 09/16/2017 Document Revised: 10/21/2018 Document Reviewed: 09/16/2017 [employer] Patient Education 2020 [employer]. Follow Up Care 05/09/2023 08:43:02 With:ERNESTO ADAME DO, Orthopedic Address: [address] [place] [address], [address] [facility] [place] [address]- [phone] When:06/02/2023 09:00:00 Comments:This is your post-op appointment. Follow-up as scheduled. [facility] 08-29-2023 Note Discharge Instructions Thank you for allowing [facility] to assist you with your healthcare needs. [...] not take any medications, herbal, prescription, or ryfp-vbc-pjzrlzv unless prescribed for the next 12 weeks [...] post-op appointment. Follow-up as scheduled. Where: [address] [facility], [address] [facility] [place] [address]- [phone] Allergies NKA Medications Please ask your primary doctor or pharmacist before taking any other medication not listed, including over the counter drugs, herbal medications, vitamins and or supplements as they may interact withyour home medications. What How Much When Why Instructions Last Dose Changed acetaminophen-hydrocodone (Lorimor 325- 5 mg oral tablet) 1 tab(s) by mouth Every 6 hours as needed for for pain Cervical spondylosis Duration: 7 Days Pickup at [facility] none given today Changed acetaminophen-hydrocodone (Lorimor 325- 5 mg oral tablet) 1 tab(s) by mouth Every 4 hours as needed for Pain, scale 4-6 Pharmacy Information [facility]: [address] [place], [place] [phone] What How Much When Comments Stop Taking [...] local community. Calling the smokefree.gov counselor helpline: 7-451-Vdxx-Now ( ) Where to find more information You may find more information about quitting smoking from: HelpGuide.org: www.helpguide.org Smokefree.gov: smokefree.gov [place] [employer] Association: www.lung.org Contact a health care [...] 09/16/2017 Document Revised: 10/21/2018 Document Reviewed: 09/16/2017 [employer] Patient Education 2020 [employer] Additional Information VACCINATE! IT SAVES LIVES! Members of the community who have not yet received the COVID-19 vaccine and would like to receive it can visit one of [facility] vaccine clinics. There are many vaccine clinic locations within the [facility]. For locations and available times, please visit https://gettheshot.coronavirus.[place].gov/. It is important to note that some COVID mobile vaccine clinics are held outdoors and may be canceled in rainy or stormy conditions. To learn more about pediatric vaccinations (ages 5-11), we invite you to visit the [facility] webpage. https://www.[employer]ron[employer]iver[employer].org/pages/1956-Qiztb-Vqoawurzncz-Ifqrcsljxs-Eyjqc-Cpb stions.htmlTo learn more about the COVID-19 vaccine, we invite you to visit the CDC website for a list of frequently asked questions.https://www.cdc.gov/coronavirus/2019-ncov/vaccines/faq.html [employer] Patient Portal Access Instructions: Stay connected with your healthcare team and access your personal medical information anytime with the [employer] Patient Portal. Please follow the directions below to create your [employer] account: 1.Access the email account you provided upon registration to the hospital/physician office.2.Look for an invitation email from [facility].3.Open the email and access the invitation link: AcceptInvitation to [facility].4.Fill in the required oswald to create your account. To access your account, visit [employer]. Click the blue button labeled Access Patient [...] who you will allowto register on the [employer] Patient Portal for access to your information. You can also access the [facility] Patient Portal on the [employer] kush. Simply click on Patient Portal and then log into your account. If you would like to receive a full copy of your medical records, please contact the [facility] Medical Records Department by calling [phone], Friday through Friday between 8 a.m. and [...] Call your local pharmacy or go to http://[employer].Gamma Medica-Ideas/0C8Qd1n to find one close to you.3.Make use of household items: Use cat litter or old coffee grounds to dispose medications if other options arenot available. Mix your drugs with these household products, seal them in an airtight container andthrow it into the garbage. Call [facility]: [phone] to be sure your drugs can be [...] aware that I should contact my doctor. 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 *volunteer services coordinator following for discharge planning needs. 2. Hypertension [...] medications, discussing plan of care with nursing, dialysis social worker, and therapy,examining patient, collaborating with physician, and documenting in chart. Digitally Signed by YULI ROMAN on 05/13/2023 10:54 AM [facility]08-28-2023 Note ORIGINAL Images acquired, not reported on this accession number.[facility]08-28-2023 Anesthesiology Consult note Patient: KIM CALDWELL Age: 63 years Sex: Male : 1960 Associated Diagnoses: None Author: ABIEL POST APRN-CONTAINER CRANE OPERATOR Assessment Postanesthesia assessment Vitals: Vital signs [...] by ABIEL POST on 05/12/2023 01:14 PM [facility]08-28-2023 Anesthesiology Consult note Patient: KIM CALDWELL [...] Intravenous, Stop: 05/13/23 17:59:00 EDT Prescriptions Prescribed Lorimor 325- 5 mg oral tablet: 1 tab(s), [...] tendinitis of right shoulder / SNOMED CT 090363440598396 / Confirmed Chronic coughing / SNOMED CT 755578098 / Confirmed Abnormal finding on CT scan of Abd. / SNOMED CT 0106215692 / Confirmed Intestinal malrotation / SNOMED CT 57983262 / Confirmed Falling episodes / SNOMED CT 975497345 / Confirmed GERD (gastroesophageal reflux disease) / SNOMED CT 501932960 / Confirmed Abnormal upper gastrointestinal barium series / SNOMED CT 9260766263 / Confirmed Balance problem / SNOMED CT 8309868512 / Confirmed Numbness or tingling / SNOMED CT 4922515638 / Confirmed Over weight / SNOMED CT 714165226 / Confirmed Pain of shoulder with external rotation / SNOMED CT 732946128 / Confirmed Hepatic steatosis / SNOMED CT 668849527 / Confirmed, Active Problems (13) Abnormal finding [...] history: Cervical spinal fusion by anterior technique (81737979) on 05/12/2023 at 63 Years. Excision of cataract (86320316). Comments: 05/09/2023 13:52 EDT - Armida Tai [...] Domestic Concerns None Living situation: Home/Independent Primary Photographer News: Self Current Home Treatments None Special Services [...] Signs(last 24 hrs) Last Charted Heart Rate Eaubnzlzg26 bpm (MAY 12 12:00) Resp Rate 18 br/min (MAY 12 10:32) SBP76 mmHg (MAY 12 11:57) DBP58 mmHg (MAY 12 11:57) BMI24.82 (MAY 12 10:16) Measurements from flowsheet : Measurements 05/12/2023 10:16 EDT Height 175 cm Height in inches 68.9 inch(es) Admission Weight 76 kg Weight Lbs 167.2 lb [place] Body Weight 70.46 kg BSA Admission 1.91 [...] 05/12/2023 11:54 05/12/2023 11:56 EDT SN - [place] - Medication MARCAINE BUPIVACAINE 0.25% 30ML SN - [place] - Route of Administration Local SN - [place] - By (Single) SN - [place] - By (Single) 05/12/2023 11:55 EDT Heart [...] Attendee SN - CAt - Role Performed Legal Financial Specialist 05/12/2023 11:21 EDT SN - CTm - [...] - CAt - Role Performed Cell Saver Camp Recreation Specialist SN - CAt - Role Performed Local [...] Attendee SN - CAt - Role Performed Lower School Music Teacher 1 SN - CAt - Role Performed [...] Surgeon SN - CAt - Role Performed Ore Smelter 1 SN - CAt - Role Performed Rn Geriatric SN - CAt - Role Performed Scrub [...] Allergies No Anesthesia Extension Set Applied Yes Beauty Culturist On Yes Consent Form Signed Yes Patient [...] #1 We May Share PHI Abril Suarez [phone] Designated Person #1 Relationship Friend Privacy Restrictions Requested None Height 175 cm Height in inches 68.9 inch(es) Admission Weight 76 kg Weight Lbs 167.2 lb Austin Body Weight 70.46 kg BSA Admission 1.91 [...] Method Explanation, Printed materials Preferred Spoken Language Andorran Preferred Written Language Andorran Teaching Evaluation No further teaching needed Safety [...] EDT Venancio GARSIA . Assessment and Plan [place] Society of Anesthesiologists (ASA) physical status classification: Class III. Anesthetic Preoperative Plan Anesthetic technique: General. Informed consent: signed by patient. Digitally Signed by ABIEL POST on 05/12/2023 12:08 PM [facility]04-08-2021 NoteHNO ID: [id number] Author: Clover Rico (Pa) Service: ? Author Type: Physician Sew On Operator Type: Progress Notes Filed: 12/21/2020 1:24 PM Note Text: This note was created using Everwise. Subjective Kim Caldwell is a 60 year [...] Outpatient Medications Medication Sig Dispense Refill - Wppsygttelqfjls-Awoqwrzoy-OO (BROMFED DM) 2-30-10 mg/5 mL syrup Take [...] CORONAVIRUS - XR CHEST 2V FRONTAL/LAT [facility] NoteHNO ID: [id number] Author: Marylou Kaiser (RtLeonard Nunez Service: Radiology Author Type: Dynamics Ax Technical Architect Type: Progress Notes Filed: 12/21/2020 1:05 PM [...] BY: RT Melchor December 21, 2020 1:05 [facility]04-08-2021 History of Present illness Narrative* Marylou [...] 21, 2020 1:05 PM [facility] Author Jack Gonzales [facility] Note Date/Time January 24, 2025 6:33p [facility] Medical Records Department [address] [place] [address] Counseling Note - Pharmacy 01/24/25 1640 MR#: [id number] Acct: [id number] Name: KIM CALDWELL Rep #:[id number] : 1960 64 From: Jack Gonzales PCP: Dr. Emanuel Macedo MD Status:ADM I N Y Location: [place] [address] Pharmacy MS Med Reconciliation Pharmacy Service has performed discharge [...] Signature (if applicable): Date CC: ~ Signed [facility] Work Phone: Discharge summary Author Tamir Allan [facility] August 16, 2023 6:11am Note Date/Time August 16, 2023 5 :10am 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 Funk who was on-call for [facility], with whom the patient isestablished, likely [...] % (Auto) 54.0 Lymph % (Auto) 27.6 [place] % (Auto) 13.6 H Eos % (Auto) [...] Management Discussion w/another healthcare provider: Hospitalist and Telecommunications Specialist ([facility]) Discharge Plan Dx/Rx/DC Orders Clinical Impression: Fall from slipping on wet surface, Closed fracture of right hip Disposition Disposition: Acute Care Hospital [facility] What to do if you have Problems For any increased pain, shortness of breath, bleeding, nausea or vomiting, chestpain, or any unexpected problems, contact your Primary Care Provider. Call [facility] ([phone]) or report to the closest Emergency Room. Call 911 if necessary. 08/16/23 0611 <Electronically signed by Tamir Allan MD> Cosigner Signature (if applicable): CC: PASTORA Adame ~ Signed [facility] Work Phone: Evaluation + Plan note No data available for this section [facility] Evaluation note* Diagnosis Onset Date Resolution Status Closed fracture of right hip acute Fall from slipping on wet surface acute Hypokalemia acute [facility] Work Phone: Evaluation note* Diagnosis Onset Date Resolution Status Closed fracture of right hip acute Contusion of right shoulder acute Fall from slipping on wet surface acute Hypokalemia acute S/P total hip arthroplasty a cute [facility] Work Phone: Evaluation note* Diagnosis Fever, unspecified fever cause documented in this encounter [facility] Author Patrice Watkins [facility] August 16, 2023 6:38am Note Date/Time August 16, 2023 6 :38am [facility] Medical Records Department [address] [place] [address] H&P Exam - Hospitalist 08/16/23 0631 MR#: [id number] Acct: [id number] Name: QUINCY CALDWELL Rep #:[id number] : 1960 63 From: Patrice Watkins DO PCP: PASTORA Luzs:ADM [place] [facility] XL099-6 HPI - General General Date of Admission: [...] % (Auto) 54.0, Lymph % (Auto) 27.6, [place] % (Auto) 13.6 H, Eos % (Auto) [...] PASTORA Adame; Dr. Patrice Watkins, ~ Signed [facility] Work Phone: Hospital Discharge instructions No data available for this section [facility] Progress note No data available for this section [facility] Reason for referral (narrative)No reason for referral information [facility] Work Phone: Summary Purpose Family History No Family History Records Found Relationship Condition Age at Onset Recorded Date/T celso mother Fairview's disease Unknown father Leukemia Unknown Advance Directives No Advanced Directives Records Found Advance Directive Response Recorded Date/ Time Living Will No August 16 5:12am Power of Afloat Cryptologic Manager No August 16, 2023 5:12am Advance Directive Response Recorded Date/ Time Living Will No August 16 7:03am Power of Afloat Cryptologic Manager No August 16, 2023 7:03am Advance Directive Response Recorded Date/ Time Do you have a Healthcare Power of Afloat Cryptologic Manager? No January 19, 2025 11:53am Chief Complaint [...] section and content) DATE CREATED AUTHOR 10/24/2021 [facility] DATE CREATED AUTHOR 'S ORGANIZ ATION 05/19/2024 [facility] DATE CREATED AUTHOR AUTHOR'S ORGANIZ ATION 05/23/2024 [facility] DATE CREATED AUTHOR AUTHOR'S ORGANIZ ATION 02/17/2025 [facility] Patient Care team informatio n (unrecognized section and content) Team Status: Active Member Role Status Dates Sofia Adame BROWNFIELD PROGRAM COORDINATOR, BROWNFIELD PROGRAM COORDINATOR-C Primary Care Provider Active Team Status: Active Member Role Status Dates Sofia Adame BROWNFIELD PROGRAM COORDINATOR, BROWNFIELD PROGRAM COORDINATOR-C Primary Care Provider Active Dr. Tamir Allan MD Emergency Provider Active Dr. Patrice Watkins DO Admit Provider, At tending Provider, Referring Provider Active Team Status: Active Member Role Status Dates Sofia Adame BROWNFIELD PROGRAM COORDINATOR, BROWNFIELD PROGRAM COORDINATOR-C Primary Care Provider Active Dr. Tamir Allan MD Emergency Provider Active Dr. Patrice Watkins DO Admit Provider, At tending Provider, Other Provider Active Team Status: Active Member Role Status Dates Sofia Adame BROWNFIELD PROGRAM COORDINATOR, BROWNFIELD PROGRAM COORDINATOR-C Primary Care Provider Active Dr. Tamir Allan MD Emergency Provider Active Dr. Patrice Watkins DO Admit Provider, Re ferring Provider, Other Provider Active Dr. Amaris Marks MD Attending Provider, Other Prov ider Active Dr. Obie Funk MD Other Provider Active Team Status: Active Member Role Status Dates Sofia Adame BROWNFIELD PROGRAM COORDINATOR, BROWNFIELD PROGRAM COORDINATOR-C Primary Care Provider Active Dr. Tamir Allan MD Emergency Provider Active Dr. Patrice Watkins DO Admit Provider, Re ferring Provider, Other Provider Active Dr. Obie Funk MD Other Provider Active Dr. hSorty Lea MD Attending Provider, Other Provi susan Active Dr. Amaris Marks MD Other Provider Active Team Status: Inactive Member Role Status Dates Sofia Adame BROWNFIELD PROGRAM COORDINATOR, BROWNFIELD PROGRAM COORDINATOR-C Primary Care Provider Active Dr. Tamir Allan [...] or prosecute any alcohol or drug abuse patient.[facility] FOR RECORDS PERTAINING TO PATIENTS WHO [...] BE BASED ON THE PRIMARY CLINICAL RECORDS. [facility]. provides no warranty or guarantee of the accuracy or completeness of information in this document.
[2025-02-21 09:22] LABS: Ferritin 1329 ng/mL (37-417)
[2025-02-21 09:41] LABS: Iron 57 ug/dL (65-175); Iron Binding Capacity,Unsat 102 ug/dL (228-428)
[2025-02-21 09:43] LABS: Iron Binding Capacity,Total 159 ug/dL (250-450); PERCENT IRON SATURATION 35.8 % (9-55)
== END ==
LOC: OLS.SW 05:00
PROVIDERS: PCP Family Medicine Geriatric Medicine; Visit Provider Internal Medicine
DX: D64.9 Anemia, unspecified (principal); R79.89 Other specified abnormal findings of blood chemistry
CPT/HCPCS: 36415; 82728; 83540; 83550

== ENCOUNTER → 2025-03-09 | Outpatient (CLI) | payer MEDICAID, SELFPAY ==
[2025-03-09 15:00] LABS: Absolute Lymphocyte Count 1.28 X10^3/uL (0.83-4.51); Absolute Neutrophil Count 1.9 X10^3/uL (2.0-7.7); Basophil# 0.02 X10^3/uL; Basophil% 0.5 % (0-1); Eosinophil# 0.14 X10^3/uL; Eosinophils% 3.8 % (0-5); Hematocrit 26.9 % (40-54); Hemoglobin 9.2 g/dL (13.0-16.5); Lymphocyte # 1.28 X10^3/ul (0.83-4.51); Lymphocyte % 34.8 % (19-41); Mean Corp Hgb Conc 34.2 g/dL (32-36); Mean Corpuscular Hgb 32.4 pg (27.0-32.0); Mean Corpuscular Volume 94.7 fL (80-94); Mean Platelet Vol. 8.9 fl (6.2-12.0); Monocyte# 0.29 X10^3/uL; Monocyte% 7.9 % (0-10); NRBC Flagged by Analyzer 0 % (0-5); Neutrophil # 1.94 X10^3/uL (2.7-7.7); Neutrophil % 52.7 % (47-70); Platelet Count 210 K/mm3 (150-450); RBC Distribution Width CV 15.5 % (11.6-14.6); RBC Distribution Width SD 53.5 fl (35.1-43.9); Red Blood Count 2.84 M/mm3 (4.6-6.2); White Blood Count 3.7 K/mm3 (4.4-11.0)
[2025-03-09 16:19] LABS: AST(SGOT) 17 U/L (<=37); Alanine Aminotransfer ALT/SGPT 11 U/L (<=46); Albumin, Serum 3.7 g/dL (3.4-4.8); Alkaline Phosphatase 100 U/L (40-129); Anion Gap 14 (5-15); BUN 18 mg/dL (4-19); Calcium,Total 9.3 mg/dL (7.6-11.0); Carbon Dioxide 15.9 mmol/L (21.0-32.0); Chloride 103 mmol/L (98-108); Creatinine, Serum 1.38 mg/dL (0.70-1.20); EST Glomerular Filtration Rate 57 (>60); Globulin 3.5 g/dL (2.2-4.2); Glucose 94 mg/dL (70-99); Magnesium 1.7 mg/dL (1.5-2.2); Phosphorus 5.4 mg/dL (2.7-4.5); Potassium 4.3 mmol/L (3.3-5.1); Protein, Total 7.2 g/dL (5.9-8.4); Sodium Level 134 mmol/L (133-145); Total Bilirubin 0.38 mg/dL (0.00-1.30)
== END | disposition home or self-care (01) ==
LOC: LAB 14:35
PROVIDERS: PCP Family Medicine Geriatric Medicine; Referring Provider Family Medicine Geriatric Medicine; Visit Provider Family Medicine Geriatric Medicine
DX: I10 Essential (primary) hypertension (principal)
CPT/HCPCS: 36415; 80053; 83735; 84100; 85025

== ENCOUNTER → 2025-04-26 | Outpatient (CLI) | payer MEDICAID, SELFPAY ==
[2025-04-26 11:49] LABS: Hematocrit 32.2 % (40-54); Hemoglobin 11.1 g/dL (13.0-16.5); Immature Granulocytes Count 0.030 X10^3/uL (0.0-0.0); Mean Corp Hgb Conc 34.5 g/dL (32-36); Mean Corpuscular Volume 91.2 fL (80-94); Mean Platelet Vol. 9.6 fl (6.2-12.0); NRBC Flagged by Analyzer 0 % (0-5); Platelet Count 224 K/mm3 (150-450); RBC Distribution Width CV 13.7 % (11.6-14.6); RBC Distribution Width SD 46.2 fl (35.1-43.9); Red Blood Count 3.53 M/mm3 (4.6-6.2); White Blood Count 6.0 K/mm3 (4.4-11.0)
[2025-04-26 12:41] LABS: AST(SGOT) 14 U/L (<=37); Alanine Aminotransfer ALT/SGPT 8 U/L (<=46); Albumin, Serum 3.9 g/dL (3.4-4.8); Alkaline Phosphatase 105 U/L (40-129); Anion Gap 15 (5-15); BUN 20 mg/dL (4-19); BUN/Creat Ratio 12.1 RATIO (10-20); Calcium,Total 9.4 mg/dL (7.6-11.0); Carbon Dioxide 12.5 mmol/L (21.0-32.0); Chloride 105 mmol/L (98-108); Cholesterol 113 mg/dL (<=200); Globulin 3.4 g/dL (2.2-4.2); Glucose 110 mg/dL (70-99); Low Density Lipoprotein Calc. 53 mg/dL; Potassium 4.3 mmol/L (3.3-5.1); Triglycerides 107 mg/dL; Very Low Density Lipoprotein 21 mg/dL (5-40); cholesterol:hdl ratio screen 2.91
[2025-04-26 13:26] LABS: PSA,Total - Annual Screen 0.50 ng/mL (0.02-4.00)
== END | disposition home or self-care (01) ==
LOC: LAB 11:31
PROVIDERS: PCP Family Medicine Geriatric Medicine; Referring Provider Family Medicine Geriatric Medicine; Visit Provider Family Medicine Geriatric Medicine
DX: E78.5 Hyperlipidemia, unspecified (principal); I10 Essential (primary) hypertension; Z12.5 Encounter for screening for malignant neoplasm of prostate
CPT/HCPCS: 84153; 36415; 80053; 80061; 84443; 85025; G0103